=== PATIENT | male | born 1945 | race Caucasian/White ===

== ENCOUNTER → 2020-06-12 11:27 | Outpatient (BNVA) | payer MEDICARE, MEDICAID, SELFPAY | PROVIDERS: PCP Internal Medicine; Visit Provider Internal Medicine | DX: I48.20 Chronic atrial fibrillation, unspecified (principal); Z51.81 Encounter for therapeutic drug level monitoring; Z79.01 Long term (current) use of anticoagulants | CPT/HCPCS: 85610; 99211 ==

== ENCOUNTER 2020-06-16 11:56 | Outpatient (REF) | payer MEDICARE, MEDICAID, SELFPAY ==
[2020-06-16 12:17] LABS: Glucose Urine UA NEG (NEG); Leukocyte Esterase Urine NEG (NEG); Nitrite Urine NEG (NEG); PH 5.5 (5.0-8.0); Specific Gravity - Urine 1.025 (1.005-1.025); Urine Blood NEG (NEG); Urine Ketones NEG (NEG); Urine Protein NEG (NEG-TRACE)
[2020-06-16 12:29] LABS: Appearance Urine HAZY; Color Urine YELLOW
== END 2020-06-16 11:57 | disposition home or self-care (01) ==
LOC: HO.LNP 11:56
PROVIDERS: Visit Provider Internal Medicine
DX: Z79.01 Long term (current) use of anticoagulants (principal)
CPT/HCPCS: 81003; 87086

== ENCOUNTER → 2020-07-10 11:17 | Outpatient (BNVA) | payer MEDICARE, MEDICAID, SELFPAY | PROVIDERS: PCP Internal Medicine; Visit Provider Internal Medicine | DX: I48.20 Chronic atrial fibrillation, unspecified (principal); Z51.81 Encounter for therapeutic drug level monitoring; Z79.01 Long term (current) use of anticoagulants | CPT/HCPCS: 85610; 99211 ==

== ENCOUNTER → 2020-08-20 08:22 | Outpatient (BNVA) | payer MEDICARE, MEDICAID, SELFPAY | PROVIDERS: PCP Internal Medicine; Visit Provider Internal Medicine | DX: I48.20 Chronic atrial fibrillation, unspecified (principal); Z51.81 Encounter for therapeutic drug level monitoring; Z79.01 Long term (current) use of anticoagulants | CPT/HCPCS: 85610; 99211 ==

== ENCOUNTER 2020-08-20 08:45 | Outpatient (REF) | payer MEDICARE, MEDICAID, SELFPAY ==
[2020-08-20 09:50] LABS: Blood Urea Nitrogen 31 mg/dL (9-16); Estimated Glomerular Filt Rate 53
== END 2020-08-20 08:46 | disposition home or self-care (01) ==
LOC: HO.LAB 08:45
PROVIDERS: Visit Provider Internal Medicine
DX: R79.9 Abnormal finding of blood chemistry, unspecified (principal)
CPT/HCPCS: 82565; 84520

== ENCOUNTER 2020-09-17 08:25 | Outpatient (REF) | payer MEDICARE, MEDICAID, SELFPAY ==
[2020-09-17 09:45] LABS: Blood Urea Nitrogen 29 mg/dL (9-16)
== END 2020-09-17 08:26 | disposition home or self-care (01) ==
LOC: HO.LAB 08:25
PROVIDERS: PCP Internal Medicine; Referring Provider Internal Medicine; Visit Provider Internal Medicine
DX: R79.89 Other specified abnormal findings of blood chemistry (principal); I48.20 Chronic atrial fibrillation, unspecified; Z51.81 Encounter for therapeutic drug level monitoring; Z79.01 Long term (current) use of anticoagulants
CPT/HCPCS: 36415; 84520; 85610; 99211

== ENCOUNTER → 2020-10-17 08:20 | Outpatient (BNVA) | payer MEDICARE, MEDICAID, SELFPAY | PROVIDERS: PCP Internal Medicine; Visit Provider Internal Medicine | DX: I48.20 Chronic atrial fibrillation, unspecified (principal); Z51.81 Encounter for therapeutic drug level monitoring; Z79.01 Long term (current) use of anticoagulants | CPT/HCPCS: 85610; 99211 ==

== ENCOUNTER → 2020-10-23 08:43 | Outpatient (BNVA) | payer MEDICARE, MEDICAID, SELFPAY | PROVIDERS: PCP Internal Medicine; Visit Provider Internal Medicine | DX: I48.20 Chronic atrial fibrillation, unspecified (principal); Z51.81 Encounter for therapeutic drug level monitoring; Z79.01 Long term (current) use of anticoagulants | CPT/HCPCS: 85610; 99211 ==

== ENCOUNTER → 2020-11-14 08:28 | Outpatient (BNVA) | payer MEDICARE, MEDICAID, SELFPAY | PROVIDERS: PCP Internal Medicine; Visit Provider Internal Medicine | DX: I48.20 Chronic atrial fibrillation, unspecified (principal); Z51.81 Encounter for therapeutic drug level monitoring; Z79.01 Long term (current) use of anticoagulants | CPT/HCPCS: 85610; 99211 ==

== ENCOUNTER → 2020-12-05 08:32 | Outpatient (BNVA) | payer MEDICARE, MEDICAID, SELFPAY | PROVIDERS: PCP Internal Medicine; Visit Provider Internal Medicine | DX: I48.20 Chronic atrial fibrillation, unspecified (principal); Z79.01 Long term (current) use of anticoagulants; Z51.81 Encounter for therapeutic drug level monitoring | CPT/HCPCS: 85610; 99211 ==

== ENCOUNTER → 2020-12-11 08:32 | Outpatient (BNVA) | payer MEDICARE, MEDICAID, SELFPAY | PROVIDERS: PCP Internal Medicine; Visit Provider Internal Medicine | DX: I48.20 Chronic atrial fibrillation, unspecified (principal); Z79.01 Long term (current) use of anticoagulants; Z51.81 Encounter for therapeutic drug level monitoring | CPT/HCPCS: 85610; 99211 ==

== ENCOUNTER → 2020-12-16 09:20 | Outpatient (BNVA) | payer MEDICARE, MEDICAID, SELFPAY | PROVIDERS: PCP Internal Medicine; Visit Provider Internal Medicine | DX: I48.20 Chronic atrial fibrillation, unspecified (principal); Z51.81 Encounter for therapeutic drug level monitoring; Z79.01 Long term (current) use of anticoagulants | CPT/HCPCS: 85610; 99211 ==

== ENCOUNTER → 2020-12-22 09:36 | Outpatient (BNVA) | payer MEDICARE, MEDICAID, SELFPAY | PROVIDERS: PCP Internal Medicine; Visit Provider Internal Medicine | DX: I48.20 Chronic atrial fibrillation, unspecified (principal); Z51.81 Encounter for therapeutic drug level monitoring; Z79.01 Long term (current) use of anticoagulants | CPT/HCPCS: 85610; 99211 ==

== ENCOUNTER → 2021-01-01 08:12 | Outpatient (BNVA) | payer MEDICARE, MEDICAID, SELFPAY | PROVIDERS: PCP Internal Medicine; Visit Provider Internal Medicine | DX: I48.20 Chronic atrial fibrillation, unspecified (principal); Z51.81 Encounter for therapeutic drug level monitoring; Z79.01 Long term (current) use of anticoagulants | CPT/HCPCS: 85610; 99211 ==

== ENCOUNTER 2021-01-01 10:20 | Outpatient (REF) | payer MEDICARE, MEDICAID, SELFPAY ==
[2021-01-01 11:11] LABS: Blood Urea Nitrogen 30 mg/dL (9-16)
== END 2021-01-01 10:21 | disposition home or self-care (01) ==
LOC: HO.LNP 10:20
PROVIDERS: Visit Provider Internal Medicine
DX: R79.89 Other specified abnormal findings of blood chemistry (principal)
CPT/HCPCS: 84520

== ENCOUNTER → 2021-01-15 08:41 | Outpatient (BNVA) | payer MEDICARE, MEDICAID, SELFPAY | PROVIDERS: PCP Internal Medicine; Visit Provider Internal Medicine | DX: I48.20 Chronic atrial fibrillation, unspecified (principal); Z51.81 Encounter for therapeutic drug level monitoring; Z79.01 Long term (current) use of anticoagulants | CPT/HCPCS: 85610; 99211 ==

== ENCOUNTER → 2021-01-29 08:24 | Outpatient (BNVA) | payer MEDICARE, MEDICAID, SELFPAY | PROVIDERS: PCP Internal Medicine; Visit Provider Internal Medicine | DX: I48.20 Chronic atrial fibrillation, unspecified (principal); Z51.81 Encounter for therapeutic drug level monitoring; Z79.01 Long term (current) use of anticoagulants | CPT/HCPCS: 85610; 99211 ==

== ENCOUNTER 2021-01-29 10:45 | Outpatient (REF) | payer MEDICARE, MEDICAID, SELFPAY ==
[2021-01-29 11:30] LABS: Estimated Average Glucose 131 mg/dL; Hemoglobin A1c % 6.2 %
[2021-01-29 12:07] LABS: Alanine Aminotransferase 29 U/L (0-40); Albumin Level 4.1 g/dL (3.5-5.0); Alkaline Phosphatase 96 U/L (39-117); Aspartate Amino Transferase 19 U/L (5-37); Bilirubin Direct 0.3 mg/dL (0.0-0.5); Bilirubin Total 0.6 mg/dL (0.0-1.0); Cholesterol 112 mg/dL; Glucose Fasting 114 mg/dL (60-99); HDL Cholesterol 30 mg/dL; LDL Cholesterol Calculated 50 mg/dl; Total Protein 6.7 g/dL (6.5-8.0); Triglycerides 164 mg/dL
[2021-01-29 12:25] LABS: Reflex LDLD? No
[2021-01-29 16:50] LABS: PSA,Total (Free>4and<10) 0.05 ng/mL (0.00-4.00)
== END 2021-01-29 10:46 | disposition home or self-care (01) ==
LOC: HO.LNP 10:45
PROVIDERS: Visit Provider Internal Medicine
DX: R73.03 Prediabetes (principal); E78.00 Pure hypercholesterolemia, unspecified; C61 Malignant neoplasm of prostate; Z12.5 Encounter for screening for malignant neoplasm of prostate
CPT/HCPCS: 80061; 80076; 82947; 83036; 84153

== ENCOUNTER → 2021-02-17 08:33 | Outpatient (BNVA) | payer MEDICARE, MEDICAID, SELFPAY | PROVIDERS: PCP Internal Medicine; Visit Provider Internal Medicine | DX: I48.20 Chronic atrial fibrillation, unspecified (principal); Z51.81 Encounter for therapeutic drug level monitoring; Z79.01 Long term (current) use of anticoagulants | CPT/HCPCS: 85610; 99211 ==

== ENCOUNTER 2021-02-27 15:20 | Outpatient (REF) | payer MEDICARE, MEDICAID, SELFPAY ==
[2021-02-27 15:24] LABS: MANUAL DIFF FLAG NO
[2021-02-27 15:27] LABS: Basophils Percent Auto 0.6 % (0-2); Eosinophils Absolute Auto 0.1 X10*3/uL (0.0-0.4); Eosinophils Percent Auto 1.8 % (0-4); Hematocrit 37.7 % (42-52); Hemoglobin 12.6 g/dl (14.0-18.0); Imm Gran Abs Auto 0.03 X10*3/uL (0.00-0.03); Imm Gran Pct Auto 0.5 % (0.0-0.4); Lymphocytes Absolute Auto 1.7 X10*3/uL (1.2-4.9); Lymphocytes Percent Auto 26.5 % (20-40); Mean Corpuscular HGB Conc 33.4 g/dl (31.0-36.0); Mean Corpuscular Hemoglobin 30.5 pg (27.0-33.0); Mean Corpuscular Volume 91.3 fL (80-98); Mean Platelet Volume 11.1 fL (9.4-12.4); Monocytes Absolute Auto 0.5 X10*3/uL (0.1-1.2); Monocytes Percent Auto 7.5 % (2-11); Neutrophils Percent Auto 63.1 % (45-73); Platelet Count 136 X10*3/uL (160-400); Red Blood Count 4.13 X10*6/uL (4.60-5.80); Red Cell Distribution Width 13.5 % (11.0-16.0); White Blood Count 6.3 X10*3/uL (4.8-10.8)
[2021-02-27 16:03] LABS: Alanine Aminotransferase 29 U/L (0-40); Alkaline Phosphatase 104 U/L (39-117); Anion Gap 14 (12-20); Aspartate Amino Transferase 20 U/L (5-37); Bilirubin Total 0.5 mg/dL (0.0-1.0); Blood Urea Nitrogen 24 mg/dL (9-16); Calcium 9.1 mg/dL (8.4-10.2); Carbon Dioxide 23 mmol/L (22-29); Chloride 106 mmol/L (96-108); Estimated Glomerular Filt Rate 53; Glucose Fasting 127 mg/dL (60-99); Potassium 4.1 mmol/L (3.3-5.1); Sodium 139 mmol/L (135-145); Total Protein 6.7 g/dL (6.5-8.0)
== END 2021-02-27 15:21 | disposition home or self-care (01) ==
LOC: HO.LNP 15:20
PROVIDERS: Visit Provider Internal Medicine
DX: K57.33 Diverticulitis of large intestine without perforation or abscess with bleeding (principal)
CPT/HCPCS: 80053; 85025

== ENCOUNTER 2021-03-12 08:20 | Outpatient (REF) | payer MEDICARE, MEDICAID, SELFPAY ==
--- NOTE | ~2021-03-12 | US_ITS ---
EXAMINATION: US ABDOMEN COMPLETE CLINICAL INFORMATION: Gallstones. COMPARISON: Renal ultrasound 08/17/2018. CT abdomen and pelvis 12/12/2017. Ultrasound abdomen 06/25/2013. TECHNIQUE: Real-time imaging of the abdominal viscera. FINDINGS: PANCREAS: Visualized pancreatic head unremarkable. Pancreatic tail obscured by interposed bowel gas. ABDOMINAL AORTA: The proximal and mid aorta normal caliber. Distal aorta obscured by interposed bowel gas. INFERIOR VENA CAVA: Visualized portions are normal. LIVER: The liver is normal in size. The liver contour is normal. There is a thinly septate cyst measuring 9 mm within the lateral segment. There is no intrahepatic biliary duct dilatation seen. GALLBLADDER: There is a 3 mm polyp within the gallbladder. No gallbladder wall thickening or pericholecystic fluid. COMMON BILE DUCT: Normal in caliber measuring 0.3 cm in diameter. RIGHT KIDNEY: There are 2 simple cyst within the right kidney measuring 1.4 cm and 0.9 cm, both simple in appearance. . These require no further follow-up. No hydronephrosis or renal calculi. The kidney measures 11.9 cm in maximum dimension. LEFT KIDNEY: Normal. No hydronephrosis. No renal calculi or focal parenchymal lesions. The kidney measures 11.9 cm in maximum dimension. SPLEEN: Normal. The spleen measures 10.3 cm in maximum dimension. FREE FLUID: None. US/US abdomen complete IMPRESSION: * No cholelithiasis. 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 As a precaution, recommend follow-up ultrasound in one year.
== END 2021-03-12 08:21 | disposition home or self-care (01) ==
LOC: HO.US 08:20
PROVIDERS: Visit Provider Internal Medicine
DX: K80.20 Calculus of gallbladder without cholecystitis without obstruction (principal)
CPT/HCPCS: 76700

== ENCOUNTER → 2021-03-17 08:29 | Outpatient (BNVA) | payer MEDICARE, MEDICAID, SELFPAY | PROVIDERS: PCP Internal Medicine; Visit Provider Internal Medicine | DX: I48.20 Chronic atrial fibrillation, unspecified (principal); Z51.81 Encounter for therapeutic drug level monitoring; Z79.01 Long term (current) use of anticoagulants | CPT/HCPCS: 85610; 99211 ==

== ENCOUNTER → 2021-04-14 08:50 | Outpatient (BNVA) | payer MEDICARE, MEDICAID, SELFPAY | PROVIDERS: PCP Internal Medicine; Visit Provider Internal Medicine | DX: I48.20 Chronic atrial fibrillation, unspecified (principal); Z51.81 Encounter for therapeutic drug level monitoring; Z79.01 Long term (current) use of anticoagulants | CPT/HCPCS: 85610; 99212 ==

== ENCOUNTER 2021-04-14 09:25 | Emergency (ER) | payer MEDICARE, MEDICAID, SELFPAY ==
--- NOTE | ~2021-04-14 | XR_ITS ---
EXAMINATION: XR CHEST CLINICAL INFORMATION: Weakness. COMPARISON: None TECHNIQUE: Frontal view of the chest was obtained. FINDINGS: The lungs are well-expanded and clear of acute process. The heart size and pulmonary vascularity is normal. There is moderate spondylosis dorsal spine. No lytic process. XR/XR chest 1V IMPRESSION: No acute cardiopulmonary process seen.
--- NOTE | ~2021-04-14 | CT_ITS ---
EXAMINATION: CT ABDOMEN AND PELVIS WITHOUT CONTRAST CLINICAL INFORMATION: Anorexia, nausea and weakness. COMPARISON: None TECHNIQUE: Multidetector volumetric imaging was performed from the superior aspect of the liver through the pubic symphysis. Sagittal and coronal reformatted images were obtained on the technologist's workstation. This CT examination was performed using dose optimization techniques as appropriate, variously including the following: *Automated exposure control *Adjustment of mA and/or kV according to patient size (this includes techniques or standardized protocols for targeted exams where dose is matched to indication/reason for exam; i.e. extremities or head) *Use of iterative reconstruction technique DLP: 740 mGy-cm FINDINGS: LUNG BASES: There is dependent atelectatic changes left lung base. The heart size is normal. LIVER, GALLBLADDER, AND BILIARY TREE: The liver is normal in size, shape, and attenuation. No focal hepatic lesion or biliary ductal dilatation is present. The gallbladder is unremarkable with no evidence of radiopaque gallstones, gallbladder wall thickening, or obvious pericholecystic inflammatory changes. PANCREAS: Unremarkable. SPLEEN: The spleen is unremarkable. There is a small 1.1 cm Accessory splenule anterior to the inferior tip of spleen. ADRENAL GLANDS: Unremarkable. KIDNEYS AND URETERS: The kidneys are normal in size, shape, and attenuation. No hydronephrosis, hydroureter, or calculi seen. There is a 1.3 cm exophytic lesion mid pole right kidney. Mild bilateral perinephric stranding is noted. BLADDER: Unremarkable. GASTROINTESTINAL TRACT: There is diffuse colonic diverticulosis without diverticulitis. Otherwise visualized colon and the small bowel loops are unremarkable. ABDOMINAL WALL: There is a small right inguinal hernia containing fat. LYMPH NODES: Normal. VASCULAR: The abdominal aorta is of normal caliber. PELVIC VISCERA: The prostate gland is normal size with prostatic seeds or lata in place with beam hardening artifact. No free fluid. OSSEOUS STRUCTURES: Mild ventral spondylosis dorsal spine. CT/CT abdomen pelvis wo con IMPRESSION: Colonic diverticulosis without diverticulitis. Mild constipation. Exophytic 1.3 cm lesion mid to lower pole right kidney. The kidneys are otherwise unremarkable.
[2021-04-14 09:34] VITALS: BP 141/83; PULSE 81; RESP 18; TEMP 36.6; O2SAT 95; BMI 31.6
--- NOTE | 2021-04-14 09:52 | ED.WEAKNESS ---
HPI - Weakness General Chief complaint: General Medical Stated complaint: Multiple Complanits Time Seen by Provider: 04/14/21 09:50 Source: patient and EMS Mode of arrival: EMS Limitations: no limitations History of Present Illness HPI Narrative: nausea and vomiting x 2 weeks has not been seen by a doctor reports weakness Complaint: generalized weakness and lack of energy Onset (ago): week(s) (2) Duration: constant Location: generalized Migration: none Severity: severe Quality: aching Relieving factors: none Exacerbating factors: none Associated symptoms: loss of appetite, nausea/vomiting and myalgias Related Data Home Medications Medication Instructions Recorded Confirmed carvedilol phosphate 40 mg 40 mg PO DAILY 11/14/20 04/14/21 capsule,[id number] multiphase eplerenone 25 mg tablet 25 mg PO DAILY 11/14/20 04/14/21 lorazepam 0.5 mg tablet 0.5 mg PO BID 11/14/20 04/14/21 omeprazole 20 mg capsule,delayed 20 mg PO DAILY 11/14/20 04/14/21 release simvastatin 40 mg tablet 20 mg PO DAILY 11/14/20 04/14/21 calcium carbonate 500 mg (1,250 1 tab PO DAILY 04/14/21 04/14/21 mg)-vitamin D3 125 unit tablet coenzyme Q10 100 mg capsule 100 mg PO DAILY 04/14/21 04/14/21 (CoQ-10) magnesium 1 tab PO DAILY 04/14/21 04/14/21 warfarin 5 mg tablet 5 mg PO WE 04/14/21 04/14/21 warfarin 7.5 mg tablet 7.5 mg PO SUMOTUTHFRSA 04/14/21 04/14/21 Previous Rx's Medication Instructions Recorded ondansetron 4 mg disintegrating 4 mg PO Q8H PRN #20 tab 04/14/21 tablet Allergies Allergy/AdvReac Type Severity Reaction Status Date / Time Iodinated Contrast Media Allergy Severe SEIZURE Verified 03/17/21 08:30 [CONTRAST, IV] adenosine Allergy Unknown UNKNOWN Verified 03/17/21 08:30 IVP dye Allergy Unknown seizure Verified 03/17/21 08:30 erythromycin base AdvReac Unknown Gut pain Verified 03/17/21 08:30 [From Ilosone] and ADB Pain Adedison Allergy Unknown Elevated BP Uncoded 06/05/18 00:00 adenisen Allergy Unknown stroke Uncoded 06/05/18 00:00 carvedilor Allergy Unknown disorientat Uncoded 06/05/18 00:00 ion Erythromyacin Allergy Unknown abd pain Uncoded 06/05/18 00:00 Erythromycin Allergy Unknown UNKNOWN Uncoded 07/10/20 11:21 Erythromyicin Allergy Unknown GI Upset Uncoded 06/05/18 00:00 gadolinium Allergy Unknown red eues Uncoded 06/05/18 00:00 Ilisone Allergy Unknown GI Upset Uncoded 06/05/18 00:00 illosone Allergy Unknown abd pain Uncoded 06/05/18 00:00 Ilosone Allergy Unknown UNKNOWN Uncoded 07/10/20 11:21 IVPDye Allergy Unknown Convulsion Uncoded 06/05/18 00:00 Review of Systems Review of Systems: Constitutional : No Weight loss, No Fever, No Chills ENT/Mouth : No sore throat, No Rhinorrhea Eyes: No Swelling, No Redness Cardiovascular : No Chest Pain, No SOB, NoEdema Respiratory : No Cough, No Sputum, No Wheezing Gastrointestinal : Positive Nausea, Positive Vomiting, no Diarrhea, no abdominal Pain, No Hematochezia, No Melena Genitourinary : No Dysuria, No Urinary Frequency, No Hematuria, No Urgency Musculoskeletal : No joint pain, No Myalgias, No Joint Swelling Skin : No Skin Lesions, No rash Neuro : pos Weakness, No Numbness, No Dizziness, No Headache Psych : No Anxiety/Panic, No Depression Heme/Lymph: No Bruising, No Lymphadenopathy Endocrine : No Polyuria, No Polydipsia All other systems reviewed and are negative. [facility] Past Medical History Attestation statement: The following information was validated with the patient. Medical History (Updated 04/14/21 @ 12:58 by Little Fraga DO) A-fib Anxiety CHF (congestive heart failure) CVA (cerebral vascular accident) Myocardial infarct, old Surgical History (Updated 04/14/21 @ 10:05 by Little Fraga DO) History of appendectomy Social History Social History (Updated 04/14/21 @ 10:05 by Little Fraga DO) Patient Tobacco Use Status: Never used Tobacco Advance Directives: No Advance Directives Information Provided: No Physical Exam Vital Signs: Vital Signs: Last Vital Signs Temp 97.9 F 04/14/21 09:34 Pulse 81 04/14/21 09:34 Resp 18 04/14/21 09:34 BP 141/83 H 04/14/21 09:34 Pulse Ox 95 04/14/21 09:34 Body Mass Index 31.6 Appearance: Alert. Oriented X3. No acute distress. Eyes: Pupils equal, round and reactive to light. ENT: Pharynx normal. Neck: Normal inspection. Neck supple. CVS: Normal heart rate and rhythm. Pulses normal. Respiratory: No respiratory distress. Breath sounds normal. Abdomen: Soft and distended no rebound or guarding, denies pain Skin: Skin warm and dry. Normal skin color. Normal skin turgor. Extremities: No lower extremity edema. No calf ttp Neuro: Oriented X 3. No motor deficit. No sensory deficit. Course Course Course Narrative: labs, CXR negative no hypoxia, pending CT scan if negative he is COVID positive but no toxic - possible rehab vs going home. tolerated PO feels much better wants to go home MDM - Weakness MDM Narrative Medical decision making narrative: 76 yo male with hx of HTN, GERD, CVA, afib on coumadin prior appendectomy at this time will need labs, IVF, zofran, CT scan for mass/obstruction, dispo per results and findings. Lab Data Result diagrams: 04/14/21 10:13 04/14/21 10:13 Labs: Lab Results 04/14/21 04/14/21 04/14/21 Range/Units 10:13 10:13 10:13 WBC 4.9 (4.8-10.8) X10*3/uL RBC 4.72 (4.60-5.80) X10*6/uL Hgb 14.2 (14.0-18.0) g/dl Hct 41.3 L (42-52) % MCV 87.5 (80-98) fL MCH 30.1 (27.0-33.0) pg MCHC 34.4 (31.0-36.0) g/dl RDW 13.5 (11.0-16.0) % Plt Count 115 L (160-400) X10*3/uL MPV 10.4 (9.4-12.4) fL Immature Gran % (Auto) 1.0 H (0.0-0.4) % Neut % (Auto) 60.8 (45-73) % Lymph % (Auto) 27.9 (20-40) % [place] % (Auto) 9.9 (2-11) % Eos % (Auto) 0.2 (0-4) % Baso % (Auto) 0.2 (0-2) % Lymph # (Auto) 1.4 (1.2-4.9) X10*3/uL [place] # (Auto) 0.5 (0.1-1.2) X10*3/uL Eos # (Auto) 0.0 (0.0-0.4) X10*3/uL Baso # (Auto) 0.0 (0.0-0.2) X10*3/uL Abs Immat Gran (auto) 0.05 H (0.00-0.03) X10*3/uL Absolute Neuts (auto) 3.0 (2.0-8.3) X10*3/uL Absolute Nucleated RBC 0.000 (0.0-0.012) X10*3/uL Nucleated RBC % (auto) 0.0 (0.0-0.2) /100WBC PT (9.9-13.0) SEC INR (0.9-1.1) Sodium 134 L (135-145) mmol/L Potassium 4.1 (3.3-5.1) mmol/L Chloride 99 (96-108) mmol/L Carbon Dioxide 23 (22-29) mmol/L Anion Gap 16 (12-20) BUN 13 (9-16) mg/dL Creatinine 1.17 (0.5-1.4) mg/dL Estim Creat Clear Calc 62.6 Estimated GFR > 60 Random Glucose 119 H (60-115) mg/dL Lactic Acid (0.5-2.0) mmol/L Calcium 8.5 D (8.4-10.2) mg/dL Magnesium (1.6-2.6) mg/dL Total Bilirubin (0.0-1.0) mg/dL Direct Bilirubin (0.0-0.5) mg/dL AST (5-37) U/L ALT (0-40) U/L Alkaline Phosphatase (39-117) U/L Total Creatine Kinase 106 (38-174) U/L Troponin I High Sens (<3.5-35.0) ng/L B-Natriuretic Peptide 100 (<100) pg/mL Total Protein (6.5-8.0) g/dL Albumin (3.5-5.0) g/dL Lipase (8-78) U/L TSH (0.32-4.0) uIU/mL COVID-19 (SNOW) (Negative) COVID-19 Clin Com 04/14/21 04/14/21 04/14/21 Range/Units 10:13 10:13 10:13 WBC (4.8-10.8) X10*3/uL RBC (4.60-5.80) X10*6/uL Hgb (14.0-18.0) g/dl Hct (42-52) % MCV (80-98) fL MCH (27.0-33.0) pg MCHC (31.0-36.0) g/dl RDW (11.0-16.0) % Plt Count (160-400) X10*3/uL MPV (9.4-12.4) fL Immature Gran % (Auto) (0.0-0.4) % Neut % (Auto) (45-73) % Lymph % (Auto) (20-40) % [place] % (Auto) (2-11) % Eos % (Auto) (0-4) % Baso % (Auto) (0-2) % Lymph # (Auto) (1.2-4.9) X10*3/uL [place] # (Auto) (0.1-1.2) X10*3/uL Eos # (Auto) (0.0-0.4) X10*3/uL Baso # (Auto) (0.0-0.2) X10*3/uL Abs Immat Gran (auto) (0.00-0.03) X10*3/uL Absolute Neuts (auto) (2.0-8.3) X10*3/uL Absolute Nucleated RBC (0.0-0.012) X10*3/uL Nucleated RBC % (auto) (0.0-0.2) /100WBC PT 37.3 H (9.9-13.0) SEC INR 3.2 H (0.9-1.1) Sodium (135-145) mmol/L Potassium (3.3-5.1) mmol/L Chloride (96-108) mmol/L Carbon Dioxide (22-29) mmol/L Anion Gap (12-20) BUN (9-16) mg/dL Creatinine (0.5-1.4) mg/dL Estim Creat Clear Calc Estimated GFR Random Glucose (60-115) mg/dL Lactic Acid 1.1 (0.5-2.0) mmol/L Calcium (8.4-10.2) mg/dL Magnesium 1.6 (1.6-2.6) mg/dL Total Bilirubin 0.7 (0.0-1.0) mg/dL Direct Bilirubin 0.3 (0.0-0.5) mg/dL AST 28 (5-37) U/L ALT 29 (0-40) U/L Alkaline Phosphatase 68 D (39-117) U/L Total Creatine Kinase (38-174) U/L Troponin I High Sens (<3.5-35.0) ng/L B-Natriuretic Peptide (<100) pg/mL Total Protein 6.1 L (6.5-8.0) g/dL Albumin 3.6 (3.5-5.0) g/dL Lipase 46 (8-78) U/L TSH 0.40 (0.32-4.0) uIU/mL COVID-19 (SNWO) (Negative) COVID-19 Clin Com 04/14/21 04/14/21 Range/Units 10:13 11:02 WBC (4.8-10.8) X10*3/uL RBC (4.60-5.80) X10*6/uL Hgb (14.0-18.0) g/dl Hct (42-52) % MCV (80-98) fL MCH (27.0-33.0) pg MCHC (31.0-36.0) g/dl RDW (11.0-16.0) % Plt Count (160-400) X10*3/uL MPV (9.4-12.4) fL Immature Gran % (Auto) (0.0-0.4) % Neut % (Auto) (45-73) % Lymph % (Auto) (20-40) % [place] % (Auto) (2-11) % Eos % (Auto) (0-4) % Baso % (Auto) (0-2) % Lymph # (Auto) (1.2-4.9) X10*3/uL [place] # (Auto) (0.1-1.2) X10*3/uL Eos # (Auto) (0.0-0.4) X10*3/uL Baso # (Auto) (0.0-0.2) X10*3/uL Abs Immat Gran (auto) (0.00-0.03) X10*3/uL Absolute Neuts (auto) (2.0-8.3) X10*3/uL Absolute Nucleated RBC (0.0-0.012) X10*3/uL Nucleated RBC % (auto) (0.0-0.2) /100WBC PT (9.9-13.0) SEC INR (0.9-1.1) Sodium (135-145) mmol/L Potassium (3.3-5.1) mmol/L Chloride (96-108) mmol/L Carbon Dioxide (22-29) mmol/L Anion Gap (12-20) BUN (9-16) mg/dL Creatinine (0.5-1.4) mg/dL Estim Creat Clear Calc Estimated GFR Random Glucose (60-115) mg/dL Lactic Acid (0.5-2.0) mmol/L Calcium (8.4-10.2) mg/dL Magnesium (1.6-2.6) mg/dL Total Bilirubin (0.0-1.0) mg/dL Direct Bilirubin (0.0-0.5) mg/dL AST (5-37) U/L ALT (0-40) U/L Alkaline Phosphatase (39-117) U/L Total Creatine Kinase (38-174) U/L Troponin I High Sens 15.4 (<3.5-35.0) ng/L B-Natriuretic Peptide (<100) pg/mL Total Protein (6.5-8.0) g/dL Albumin (3.5-5.0) g/dL Lipase (8-78) U/L TSH (0.32-4.0) uIU/mL COVID-19 (SNOW) Positive A (Negative) COVID-19 Clin Com See Note ECG Data Attestation: I personally reviewed and interpreted this ECG as follows: ECG interpretation date: 04/14/21 ECG interpretation time: 10:11 Interpretation: Rate: 85 Rhythm: NSR 1st degree AVB with PVCs [place]: left Normal P waves. Normal JENN. Normal QRS complex. ST T wave : normal no PRACHI qTC: normal prior studies: no acute ischemia The study has been interpreted contemporaneously by me. . Discharge Plan Discharge Clinical Impression: COVID-19 Nausea & vomiting Qualifiers: Vomiting type: unspecified Vomiting Intractability: non-intractable Qualified Code(s): R11.2 - Nausea with vomiting, unspecified Patient Disposition: Home, Self-Care Instructions: Acute Nausea and Vomiting (ED), COVID-19 (Coronavirus Disease 2019) (ED) Additional Instructions: return to ED for any worsening symptoms or concerns Prescriptions: New ondansetron 4 mg tablet,disintegrating 4 mg PO Q8H PRN (Reason: nausea and vomiting) Qty: 20 RF: 0 No Action warfarin 7.5 mg Tablet 7.5 mg PO SUMOTUTHFRSA RF: 0 warfarin 5 mg Tablet 5 mg PO WE RF: 0 coenzyme Q10 [CoQ-10] 100 mg Capsule 100 mg PO DAILY RF: 0 magnesium Tablet 1 tab PO DAILY RF: 0 calcium carbonate-vitamin D3 [Calcium 500 + D (D3)] 500 mg(1,250mg) -125 unit Tablet 1 tab PO DAILY RF: 0 lorazepam 0.5 mg tablet 0.5 mg PO BID RF: 0 omeprazole 20 mg capsule,delayed release(DR/EC) 20 mg PO DAILY RF: 0 eplerenone 25 mg tablet 25 mg PO DAILY RF: 0 carvedilol phosphate 40 mg capsule, ER multiphase 24 hr 40 mg PO DAILY RF: 0 simvastatin 40 mg tablet 20 mg PO DAILY RF: 0
--- NOTE | 2021-04-14 09:53 | ECG_ITS ---
Test Reason : N/V Blood Pressure : / mmHG Vent. Rate : 085 BPM Atrial Rate : 085 BPM P-R Int : 220 ms QRS Dur : 096 ms QT Int : 380 ms P-R-T Axes : 068 -36 011 degrees QTc Int : 452 ms Sinus rhythm with 1st degree A-V block with occasional Premature ventricular complexes Left axis deviation Abnormal ECG When compared with ECG of 26-NOV-2016 07:17, No significant change was found Referred By: Little Fraga Electronically Signed By:RENATO NICHOLAS
[2021-04-14 10:21] LABS: MANUAL DIFF FLAG NO
[2021-04-14 10:25] LABS: Basophils Percent Auto 0.2 % (0-2); Eosinophils Percent Auto 0.2 % (0-4); Hematocrit 41.3 % (42-52); Hemoglobin 14.2 g/dl (14.0-18.0); Imm Gran Abs Auto 0.05 X10*3/uL (0.00-0.03); Lymphocytes Absolute Auto 1.4 X10*3/uL (1.2-4.9); Lymphocytes Percent Auto 27.9 % (20-40); Mean Corpuscular HGB Conc 34.4 g/dl (31.0-36.0); Mean Corpuscular Hemoglobin 30.1 pg (27.0-33.0); Mean Corpuscular Volume 87.5 fL (80-98); Mean Platelet Volume 10.4 fL (9.4-12.4); Monocytes Absolute Auto 0.5 X10*3/uL (0.1-1.2); Monocytes Percent Auto 9.9 % (2-11); Neutrophils Percent Auto 60.8 % (45-73); Platelet Count 115 X10*3/uL (160-400); Red Blood Count 4.72 X10*6/uL (4.60-5.80); Red Cell Distribution Width 13.5 % (11.0-16.0); White Blood Count 4.9 X10*3/uL (4.8-10.8)
[2021-04-14 10:32] LABS: INTERNATIONAL NORM RATIO 3.2 (0.9-1.1); Prothrombin Time 37.3 SEC (9.9-13.0)
[2021-04-14 10:45] LABS: Lactic Acid 1.1 mmol/L (0.5-2.0)
[2021-04-14 10:50] LABS: Anion Gap 16 (12-20); Blood Urea Nitrogen 13 mg/dL (9-16); Calcium 8.5 mg/dL (8.4-10.2); Carbon Dioxide 23 mmol/L (22-29); Chloride 99 mmol/L (96-108); Creatinine Clr Calc Pharmacy 62.6; Estimated Glomerular Filt Rate > 60; Glucose Random 119 mg/dL (60-115); Potassium 4.1 mmol/L (3.3-5.1); Sodium 134 mmol/L (135-145)
[2021-04-14 10:52] LABS: B Type Natriuretic Peptide 100 pg/mL (<100); Troponin-I High Sensitivity 15.4 ng/L (<3.5-35.0)
--- NOTE | 2021-04-14 10:52 | PHA.MEDREC ---
Pharmacy Consult ? Medication Reconciliation Pharmacy has completed the medication reconciliation. Patient get vit d, calcium and magnesium OTC but does not know the doses of the medication. Tamar Arambula, PharmD
[2021-04-14 10:53] LABS: Alanine Aminotransferase 29 U/L (0-40); Albumin Level 3.6 g/dL (3.5-5.0); Alkaline Phosphatase 68 U/L (39-117); Aspartate Amino Transferase 28 U/L (5-37); Bilirubin Direct 0.3 mg/dL (0.0-0.5); Bilirubin Total 0.7 mg/dL (0.0-1.0); Lipase 46 U/L (8-78); Magnesium 1.6 mg/dL (1.6-2.6); Total Protein 6.1 g/dL (6.5-8.0)
[2021-04-14] MEDS: ondansetron HCL 4 MG/2 ML VIAL IVPUSH (11:05)
[2021-04-14] MEDS: 0.9 % Sodium Chloride 1,000 ML 999 ML IVCONT (11:05)
[2021-04-14 11:23] LABS: COVID-19 Test Positive (Negative)
== END 2021-04-14 13:55 | disposition home or self-care (01) ==
PROVIDERS: Emergency Provider Emergency Medicine; PCP Internal Medicine
DX: U07.1 COVID-19 (principal); R11.2 Nausea with vomiting, unspecified; I48.91 Unspecified atrial fibrillation; Z86.73 Personal history of transient ischemic attack (TIA), and cerebral infarction without residual deficits; Z79.01 Long term (current) use of anticoagulants; Z79.899 Other long term (current) drug therapy
CPT/HCPCS: 36415; 71045; 74176; 80048; 80076; 82550; 83605; 83690; 83735; 83880; 84443; 84484; 85025; 85610; 87040; 87635; 93005; 96361; 96374; 99284; J2405

== ENCOUNTER → 2021-04-28 09:55 | Outpatient (BNVA) | payer MEDICARE, MEDICAID, SELFPAY | PROVIDERS: PCP Internal Medicine; Visit Provider Internal Medicine | DX: I48.20 Chronic atrial fibrillation, unspecified (principal); Z51.81 Encounter for therapeutic drug level monitoring; Z79.01 Long term (current) use of anticoagulants | CPT/HCPCS: 85610; 99211 ==

== ENCOUNTER → 2021-05-12 10:08 | Outpatient (BNVA) | payer MEDICARE, MEDICAID, SELFPAY | PROVIDERS: PCP Internal Medicine; Visit Provider Internal Medicine | DX: I48.20 Chronic atrial fibrillation, unspecified (principal); Z51.81 Encounter for therapeutic drug level monitoring; Z79.01 Long term (current) use of anticoagulants | CPT/HCPCS: 85610; 99211 ==

== ENCOUNTER → 2021-06-09 09:49 | Outpatient (BNVA) | payer MEDICARE, MEDICAID, SELFPAY | PROVIDERS: PCP Internal Medicine; Visit Provider Internal Medicine | DX: I48.20 Chronic atrial fibrillation, unspecified (principal); Z51.81 Encounter for therapeutic drug level monitoring; Z79.01 Long term (current) use of anticoagulants | CPT/HCPCS: 85610; 99211 ==

== ENCOUNTER → 2021-07-07 10:24 | Outpatient (BNVA) | payer MEDICARE, MEDICAID, SELFPAY | PROVIDERS: PCP Internal Medicine; Visit Provider Internal Medicine | DX: I48.20 Chronic atrial fibrillation, unspecified (principal); Z51.81 Encounter for therapeutic drug level monitoring; Z79.01 Long term (current) use of anticoagulants | CPT/HCPCS: 85610; 99211 ==

== ENCOUNTER 2021-08-03 10:08 | Outpatient (REF) | payer MEDICARE, MEDICAID, SELFPAY ==
[2021-08-03 10:12] LABS: MANUAL DIFF FLAG NO
[2021-08-03 10:56] LABS: Basophils Percent Auto 0.4 % (0-2); Eosinophils Absolute Auto 0.1 X10*3/uL (0.0-0.4); Eosinophils Percent Auto 1.2 % (0-4); Hematocrit 44.5 % (42.0-52.0); Hemoglobin 14.6 g/dl (14.0-18.0); Imm Gran Abs Auto 0.03 X10*3/uL (0.00-0.03); Imm Gran Pct Auto 0.4 % (0.0-0.4); Lymphocytes Absolute Auto 2.1 X10*3/uL (1.2-4.9); Lymphocytes Percent Auto 26.4 % (20-40); Mean Corpuscular HGB Conc 32.8 g/dl (31.0-36.0); Mean Corpuscular Hemoglobin 29.5 pg (27.0-33.0); Mean Corpuscular Volume 89.9 fL (80.0-98.0); Monocytes Absolute Auto 0.7 X10*3/uL (0.1-1.2); Monocytes Percent Auto 8.6 % (2-11); Neutrophils Absolute Auto 5.1 x10*3/uL (2.0-8.3); Platelet Count 157 X10*3/uL (160-400); Red Blood Count 4.95 X10*6/uL (4.60-5.80); Red Cell Distribution Width 13.9 % (11.0-16.0)
[2021-08-03 11:04] LABS: Estimated Average Glucose 131 mg/dL; Hemoglobin A1c % 6.2 %
[2021-08-03 11:07] LABS: Alanine Aminotransferase 25 U/L (0-40); Alkaline Phosphatase 83 U/L (39-117); Anion Gap 15 (12-20); Aspartate Amino Transferase 18 U/L (5-37); Bilirubin Total 0.5 mg/dL (0.0-1.0); Blood Urea Nitrogen 22 mg/dL (9-16); Calcium 9.6 mg/dL (8.4-10.2); Carbon Dioxide 26 mmol/L (22-29); Chloride 103 mmol/L (96-108); Cholesterol 121 mg/dL; Estimated Glomerular Filt Rate > 60; Glucose Fasting 127 mg/dL (60-99); HDL Cholesterol 35 mg/dL; LDL Cholesterol Calculated 62 mg/dl; Magnesium 1.6 mg/dL (1.6-2.6); Potassium 4.5 mmol/L (3.3-5.1); Sodium 139 mmol/L (135-145); Total Protein 6.8 g/dL (6.5-8.0); Triglycerides 122 mg/dL
[2021-08-03 11:18] LABS: Reflex LDLD? No
[2021-08-03 11:27] LABS: Vitamin D 25-OH Total 23.8 ng/mL (>30)
[2021-08-03 12:03] LABS: PSA,Total (Free>4and<10) 0.11 ng/mL (0.00-4.00)
== END 2021-08-03 10:09 | disposition home or self-care (01) ==
LOC: HO.LNP 10:08
PROVIDERS: PCP Internal Medicine; Visit Provider Internal Medicine
DX: Z00.00 Encounter for general adult medical examination without abnormal findings (principal); E83.51 Hypocalcemia; R79.9 Abnormal finding of blood chemistry, unspecified; R73.03 Prediabetes; E78.00 Pure hypercholesterolemia, unspecified; D64.9 Anemia, unspecified; R97.20 Elevated prostate specific antigen [PSA]; Z12.5 Encounter for screening for malignant neoplasm of prostate
CPT/HCPCS: 80053; 80061; 82306; 83036; 83735; 84153; 85025

== ENCOUNTER → 2021-08-06 10:21 | Outpatient (BNVA) | payer MEDICARE, MEDICAID, SELFPAY | PROVIDERS: PCP Internal Medicine; Visit Provider Internal Medicine | DX: I48.20 Chronic atrial fibrillation, unspecified (principal); Z51.81 Encounter for therapeutic drug level monitoring; Z79.01 Long term (current) use of anticoagulants | CPT/HCPCS: 85610; 99211 ==

== ENCOUNTER 2021-08-20 08:53 | Outpatient (REF) | payer MEDICARE, MEDICAID, SELFPAY | END 2021-08-20 08:54 | disposition home or self-care (01) | LOC: HO.HOSX 08:53 | PROVIDERS: Visit Provider Orthopaedic Surgery | DX: Z13.89 Encounter for screening for other disorder (principal) ==

== ENCOUNTER → 2021-09-03 08:29 | Outpatient (BNVA) | payer MEDICARE, MEDICAID, SELFPAY | PROVIDERS: PCP Internal Medicine; Visit Provider Internal Medicine | DX: I48.20 Chronic atrial fibrillation, unspecified (principal); Z51.81 Encounter for therapeutic drug level monitoring; Z79.01 Long term (current) use of anticoagulants | CPT/HCPCS: 85610; 99211 ==

== ENCOUNTER → 2021-09-16 09:42 | Outpatient (REF) | payer MEDICARE, MEDICAID, SELFPAY ==
--- NOTE | 2021-09-16 09:45 | CA_ITS ---
Transthoracic Echocardiogram Patient (Last, First, Middle): Russell Tiwari A Gender: Male Date of : 1945 Age: 76 Procedure Date: 09/16/2021 Procedure Type: Transthoracic Echocardiogram Location: OP Height: 180.34 cm Weight: 99.79 kg BSA: 2.20 m2 Heart Rate: bpm BP: 138 / 80 mmHg Jig Builder Helper: PERNELL Saez MD: Michaela Anguiano [employer] Instructor: Azeem Clayton MD Symptoms: I25.10 Study Quality: Fair ECG Rhythm: Undetermined Conclusions: - 1. Technically limited study, patient declined definity contrast 2. Uhes-hm-tliyrcgf LV systolic dysfunction with LVEF of 40-45% with grade 1 diastolic dysfunction with suggestion of underlying wall motion abnormality suggestive coronary artery disease 3. Mild aortic and mitral regurgitation 4. Normal RV systolic pressure 5. No gross pericardial effusion Findings Procedure Information The patient declines contrast. Left Ventricle Normal left ventricular cavity size. There is normal left ventricular wall thickness. The left ventricular systolic function is mild to moderately decreased. The visually estimated ejection fraction is between 40-45%. Regional wall motion abnormalities can not be excluded due to suboptimal endocardial definition. Spectral Doppler is indicative of an impaired relaxation filling pattern. E/E prime ratio is <8, consistent with normal filling pressures. Evidence suggests grade I (mild) diastolic dysfunction. Wall Motion Rest Echo Findings The inferoseptal wall is hypokinetic. The inferolateral wall and basal inferior segment are akinetic. Right Ventricle The right ventricle was not well visualized. Atria The left atrium is likely dilated. There is lipomatous hypertrophy of the interatrial septum. Interatrial shunt cannot be excluded. The right atrium was not well visualized. Aortic Valve There is mild calcification of the aortic valve. There is no aortic valve stenosis. There is mild aortic valve regurgitation. Mitral Valve There is mild anterior and moderate posterior mitral leaflet thickening. There is mild mitral annular calcification. There is mild mitral valve regurgitation. There is no mitral valve stenosis. Pulmonic Valve The pulmonic valve was not well visualized. Tricuspid Valve Likely normal tricuspid valve structure and function. There is mild tricuspid valve regurgitation. The right ventricular systolic pressure is normal. The right ventricular systolic pressure is 20 mmHg. Normal right atrial pressure. There is no evidence of pulmonary hypertension. Great Vessels The pulmonary artery was not well visualized. There is mild dilatation of the ascending aorta measuring 3.80 cm. Venous The inferior vena cava is normal in size and collapses greater than 50% with inspiration. Pericardium/Pleural There is no evidence of pericardial effusion. Prior Study Comparison No prior study available for comparison. Measurements 2D Linear Measurements IVSd: 1.18 0.6-0.9/0.6-1.0 cm LVIDd: 4.91 3.9-5.3/4.2-5.9 cm LVIDd Index: 2.23 2.4-3.2/2.2-3.1 cm/m2 LVIDs: 3.89 2.0-3.6 cm LVPWd: 1.07 0.7-1.1 cm Ao Root: 3.70 2.1-3.5 cm LA Diam: 3.70 2.7-3.8/3.0-4.0 cm LAIDs Index: 1.68 1.5-2.3 cm/m2 LV Mass: 258.64 67-162/88-224 g LV Mass Index: 117.56 43-95/49-115 g/m2 LVOT Diam: 2.00 3.0+(-)1.3 cm 2D Systolic Function EF 4C: 43.20 >55% EF 2C: 46.40 >55% EF BiP: 45.60 >55% Mitral Valve E'Lateral: 11.20 Aortic Valve AoV Pk Kenneth: 1.22 AoV Mn Kenneth: 0.90 AoV VTI: 0.24 AoV Pk Grad: 6.00 Aov Mn Grad: 4.00 STACIE Cont.VTI: 1.96 LVOT LVOT Pk Kenneth: 0.67 LVOT Mn Kenneth: 0.45 LVOT VTI: 0.15 LVOT Pk Grad: 2.00 LVOT Mn Grad: 1.00 LVOT Diam: 2.00 LVOT Area: 3.14 Diastolic Function E' Laterial: 11.20 Right Ventricle TAPSE (mm): 1.98 TVS' Kenneth: 11.90 Tricuspid Valve TR Pk Kenneth: 2.05 TR Pk Grad: 17.00 RA Press: 3.00 RVSP: 20.00 Great Vessels Aorta Ao Root-2D: 3.70 2.0-3.7 cm Ao Asc: 3.80 2.1-3.4 cm Ao Arch: 3.00 Updated in Other Vendor System with Status of Final Azeem Clayton MD electronically signed on 09/17/2021 5:16:32 PM with status of Final
== END ==
LOC: HO.CARD 09:42
PROVIDERS: Visit Provider Nurse Practitioner
DX: I25.10 Atherosclerotic heart disease of native coronary artery without angina pectoris (principal)
CPT/HCPCS: 93306

== ENCOUNTER → 2021-10-01 08:26 | Outpatient (BNVA) | payer MEDICARE, MEDICAID, SELFPAY | PROVIDERS: PCP Internal Medicine; Visit Provider Internal Medicine | DX: I48.20 Chronic atrial fibrillation, unspecified (principal); Z51.81 Encounter for therapeutic drug level monitoring; Z79.01 Long term (current) use of anticoagulants | CPT/HCPCS: 85610; 99211 ==

== ENCOUNTER → 2021-10-30 08:17 | Outpatient (BNVA) | payer MEDICARE, MEDICAID, SELFPAY | PROVIDERS: PCP Internal Medicine; Visit Provider Internal Medicine | DX: I48.20 Chronic atrial fibrillation, unspecified (principal); Z51.81 Encounter for therapeutic drug level monitoring; Z79.01 Long term (current) use of anticoagulants | CPT/HCPCS: 85610; 99211 ==

== ENCOUNTER → 2021-11-20 08:36 | Outpatient (BNVA) | payer MEDICARE, MEDICAID, SELFPAY | PROVIDERS: PCP Internal Medicine; Visit Provider Internal Medicine | DX: I48.20 Chronic atrial fibrillation, unspecified (principal); Z51.81 Encounter for therapeutic drug level monitoring; Z79.01 Long term (current) use of anticoagulants | CPT/HCPCS: 85610; 99211 ==

== ENCOUNTER → 2021-12-18 08:33 | Outpatient (BNVA) | payer MEDICARE, MEDICAID, SELFPAY | PROVIDERS: PCP Internal Medicine; Visit Provider Internal Medicine | DX: I48.20 Chronic atrial fibrillation, unspecified (principal); Z79.01 Long term (current) use of anticoagulants; Z51.81 Encounter for therapeutic drug level monitoring | CPT/HCPCS: 85610; 99211 ==

== ENCOUNTER → 2022-01-12 08:22 | Outpatient (BNVA) | payer MEDICARE, MEDICAID, SELFPAY | PROVIDERS: PCP Internal Medicine; Visit Provider Internal Medicine | DX: I48.20 Chronic atrial fibrillation, unspecified (principal); Z79.01 Long term (current) use of anticoagulants; Z51.81 Encounter for therapeutic drug level monitoring | CPT/HCPCS: 85610; 99211 ==

== ENCOUNTER 2022-02-04 10:17 | Outpatient (REF) | payer MEDICARE, MEDICAID, SELFPAY ==
[2022-02-04 10:43] LABS: Estimated Average Glucose 131 mg/dL; Hemoglobin A1c % 6.2 %
[2022-02-04 10:48] LABS: Alanine Aminotransferase 32 U/L (0-40); Albumin Level 4.1 g/dL (3.5-5.0); Alkaline Phosphatase 89 U/L (39-117); Aspartate Amino Transferase 23 U/L (5-37); Bilirubin Direct 0.4 mg/dL (0.0-0.5); Bilirubin Total 0.8 mg/dL (0.0-1.0); Cholesterol 115 mg/dL; Glucose Fasting 138 mg/dL (60-99); HDL Cholesterol 33 mg/dL; LDL Cholesterol Calculated 66 mg/dl; Total Protein 6.8 g/dL (6.5-8.0); Triglycerides 84 mg/dL
[2022-02-04 11:44] LABS: Reflex LDLD? No
== END 2022-02-04 10:18 | disposition home or self-care (01) ==
LOC: HO.LNP 10:17
PROVIDERS: PCP Internal Medicine; Visit Provider Internal Medicine
DX: R73.09 Other abnormal glucose (principal); E78.00 Pure hypercholesterolemia, unspecified
CPT/HCPCS: 80061; 80076; 82947; 83036

== ENCOUNTER → 2022-02-09 08:59 | Outpatient (BNVA) | payer MEDICARE, MEDICAID, SELFPAY | PROVIDERS: PCP Internal Medicine; Visit Provider Internal Medicine | DX: I48.20 Chronic atrial fibrillation, unspecified (principal); Z79.01 Long term (current) use of anticoagulants; Z51.81 Encounter for therapeutic drug level monitoring | CPT/HCPCS: 85610; 99211 ==

== ENCOUNTER → 2022-03-09 08:04 | Outpatient (BNVA) | payer MEDICARE, MEDICAID, SELFPAY | PROVIDERS: PCP Internal Medicine; Visit Provider Internal Medicine | DX: I48.20 Chronic atrial fibrillation, unspecified (principal); Z51.81 Encounter for therapeutic drug level monitoring; Z79.01 Long term (current) use of anticoagulants | CPT/HCPCS: 85610; 99211 ==

== ENCOUNTER → 2022-04-06 09:10 | Outpatient (BNVA) | payer MEDICARE, MEDICAID, SELFPAY | PROVIDERS: PCP Internal Medicine; Visit Provider Internal Medicine | DX: I48.20 Chronic atrial fibrillation, unspecified (principal); Z79.01 Long term (current) use of anticoagulants; Z51.81 Encounter for therapeutic drug level monitoring | CPT/HCPCS: 85610; 99211 ==

== ENCOUNTER 2022-04-13 07:55 | Outpatient (REF) | payer MEDICARE, MEDICAID, SELFPAY ==
--- NOTE | ~2022-04-13 | US_ITS ---
EXAMINATION: US ABDOMEN COMPLETE CLINICAL INFORMATION: Gallbladder polyp. COMPARISON: CT abdomen and pelvis without contrast 04/14/2021. US abdomen complete 03/12/2021. US retroperitoneal limited (renal only) 08/17/2018. TECHNIQUE: Real-time imaging of the abdominal viscera. Technically limited study secondary to body habitus and pain. FINDINGS: PANCREAS: Normal. ABDOMINAL AORTA: Not well visualized INFERIOR VENA CAVA: Not well visualized LIVER: The liver is normal in size. Liver echotexture is slightly increased. There is an 8 x 10 x 8 mm cyst in the left lobe of the liver with single thin septation. No other focal liver. There is no intrahepatic biliary duct dilatation seen. GALLBLADDER: The gallbladder is normal in size. There is a 3 mm nonmobile nonshadowing echogenic density adjacent to the gallbladder wall does the gallbladder wall polyp. No definite gallstones are seen. COMMON BILE DUCT: Normal in caliber measuring 0.3 cm in diameter. RIGHT KIDNEY: There are 2 cysts in the midpole measuring 1.5 x 1.5 x 2 cm and 1 x 1.2 x 1.1 cm. No hydronephrosis or renal calculi. The kidney measures 12.1 cm in maximum dimension. LEFT KIDNEY: Normal. No hydronephrosis. No renal calculi or focal parenchymal lesions. The kidney measures 12.7 cm in maximum dimension. SPLEEN: Normal. The spleen measures 12.0 cm in maximum dimension. FREE FLUID: None. US/US abdomen complete IMPRESSION: Stable small gallbladder wall polyp. Slightly echogenic liver probably representing fatty infiltration and small stable liver cyst. Right renal cysts. Limited visualization of pancreas and aorta and IVC.
== END 2022-04-13 07:56 | disposition home or self-care (01) ==
LOC: HO.US 07:55
PROVIDERS: Visit Provider Internal Medicine
DX: K82.4 Cholesterolosis of gallbladder (principal)
CPT/HCPCS: 76700

== ENCOUNTER 2022-04-17 16:52 | Emergency (ER) | payer MEDICARE, MEDICAID, SELFPAY ==
--- NOTE | ~2022-04-17 | NM_ITS ---
PULMONARY PERFUSION STUDY: CLINICAL INDICATION: Sharp ripping back pain. Iodinated contrast allergy. History of CHF. COMPARISON: Chest x-ray 04/14/2021 PROCEDURE: Following following the intravenous administration of 4 millicuries technetium 99m MAA, images of the chest were again obtained in multiple projections using a gamma scintophoto camera. PERFUSION IMAGES: No segmental perfusion defects or other perfusion abnormalities are noted. NM/NM pul perfusion IMPRESSION: No perfusion defect to suggest pulmonary embolus.
[2022-04-17 17:13] VITALS: BP 131/83; BP 147/77; PULSE 81; PULSE 86; RESP 16; TEMP 37.5; O2SAT 95; O2SAT 97; BMI 30.2
--- NOTE | 2022-04-17 17:21 | PC.NURSE ---
Patient came in presenting upper posterior upper back pain gets worst with inspiration, patients has Hx of sleep apnea, stroke, SD, and a-fib. Patient reports the pain doesn't radiate any where and is constant.
--- NOTE | 2022-04-17 17:24 | ECG_ITS ---
Test Reason : SOB Blood Pressure : / mmHG Vent. Rate : 082 BPM Atrial Rate : 082 BPM P-R Int : 250 ms QRS Dur : 100 ms QT Int : 388 ms P-R-T Axes : 027 -45 029 degrees QTc Int : 453 ms Sinus rhythm with 1st degree A-V block with Premature atrial complexes with Aberrant conduction Left anterior fascicular block Minimal voltage criteria for LVH, may be normal variant ( R in aVL ) Abnormal ECG When compared with ECG of 14-APR-2021 10:01, Premature ventricular complexes are no longer Present Aberrant conduction is now Present Referred By: Wendy Flores Electronically Signed By:RENATO NICHOLAS
--- NOTE | 2022-04-17 17:24 | ED.GENADULT ---
HPI - General Adult General Chief complaint: Back Pain/Injury Stated complaint: BACK PAIN Source: patient and EMS Mode of arrival: EMS Limitations: no limitations History of Present Illness HPI narrative: 77-year-old male presents via EMS for severe ripping back pain that causes chest pain and shortness of breath. He appears to be in distress, is able to speak in complete sentences, and follow directions. Reports that he had an abdominal ultrasound and CT scan on the and 15 of April for abdominal pain. At this time, patient states to be in 10/10 pain, unable to take a deep breath because of sharp pain. Denies dizziness, weakness, trauma, injury, falls, diaphoresis, changes in vision, abdominal distention, dysuria, hematuria. Onset (ago): hour(s) (Within the hour of arrival) Location: chest, back and abdomen Radiation: back Severity: severe Severity scale (1-10): 10 Quality: stabbing and sharp Pain Consistency: intermittent Relieving factors: none Exacerbating factors: movement and other (Palpation) Associated symptoms: chest pain and shortness of breath Treatments prior to arrival: none Related Data Home Medications Medication Instructions Recorded Confirmed carvedilol phosphate 40 mg 40 mg PO DAILY 11/14/20 04/06/22 capsule,[id number] multiphase eplerenone 25 mg tablet 25 mg PO DAILY 11/14/20 04/06/22 lorazepam 0.5 mg tablet 0.5 mg PO BID 11/14/20 04/06/22 omeprazole 20 mg capsule,delayed 20 mg PO DAILY 11/14/20 04/06/22 release simvastatin 40 mg tablet 20 mg PO DAILY 11/14/20 04/06/22 calcium carbonate 500 mg-vitamin 1 tab PO DAILY 04/14/21 04/06/22 D3 3.125 mcg (125 unit) tablet coenzyme Q10 100 mg capsule 100 mg PO DAILY 04/14/21 04/06/22 (CoQ-10) magnesium 1 tab PO DAILY 04/14/21 04/06/22 warfarin 2.5 mg tablet mg PO 04/28/21 04/06/22 triamcinolone acetonide 0.1 % 1 appl topical BID-TID 10/01/21 04/06/22 topical cream Previous Rx's Medication Instructions Recorded ondansetron 4 mg disintegrating 4 mg PO Q8H PRN nausea and 04/14/21 tablet vomiting #20 tabs Allergies Allergy/AdvReac Type Severity Reaction Status Date / Time adenosine Allergy Severe cardia Verified 04/06/22 09:11 Iodinated Contrast Media Allergy Severe Seizure Verified 04/06/22 09:11 [CONTRAST, IV] erythromycin base AdvReac Unknown Gut pain Verified 04/06/22 09:11 [From Ilosone] and ADB Pain Adedison Allergy Severe Elevated BP Uncoded 04/06/22 09:11 gadolinium Allergy Severe red eues Uncoded 04/06/22 09:11 Ilosone Allergy Severe burning Uncoded 04/06/22 09:11 stomach carvedilor Allergy Intermediate disorientat Uncoded 04/06/22 09:11 ion adenisen Allergy Unknown stroke Uncoded 04/06/22 09:11 Erythromyacin Allergy Unknown abd pain Uncoded 04/06/22 09:11 Erythromycin Allergy Unknown UNKNOWN Uncoded 04/06/22 09:11 Erythromyicin Allergy Unknown GI Upset Uncoded 04/06/22 09:11 Ilisone Allergy Unknown GI Upset Uncoded 04/06/22 09:11 illosone Allergy Unknown abd pain Uncoded 04/06/22 09:11 Review of Systems Review of Systems: Constitutional: No Fever, No Chills, positive lethargy ENT/Mouth: No Ear Pain, No Hoarseness, No sore throat Eyes: No Eye Pain, No Swelling, No Redness, No Foreign Body Cardiovascular: Positive Chest Pain, positive SOB Respiratory: No Cough, No Dyspnea Gastrointestinal: No Nausea, No Vomiting, No Diarrhea, No abdominal Pain Genitourinary: No Dysuria, No Hematuria Musculoskeletal: No joint pain, No Myalgias, No Joint Swelling Skin: No Skin lacerations, No rash Neuro: No Weakness, No Numbness, No Paresthesias, No Loss of Consciousness, No Dizziness, No Headache Psych: No Anxiety/Panic, No Depression Heme/Lymph: no easy bruising, no Lymphadenopathy Endocrine: No Polyuria, No Polydipsia Yes all other systems are reviewed and are negative [facility] Past Medical History Attestation statement: The following information was validated with the patient. Source: old records reviewed Medical History A-fib Anxiety CHF (congestive heart failure) CVA (cerebral vascular accident) Myocardial infarct, old Surgical History History of appendectomy Social History Social History Patient Tobacco Use Status: Never used Tobacco Use of substances other than those prescribed or required for medical reasons: No Advance Directives: Yes Advance Directives Information Provided: No Advance Directives on File: No Physical Exam ED Vital Signs: Vital Signs - 24 hr 04/17/22 17:13 04/17/22 17:46 Temperature 99.5 F Pulse Rate 81 Respiratory Rate 16 19 Blood Pressure 147/77 H Pulse Oximetry 95 Oxygen Delivery Method Room Air BMI result Body Mass Index 30.2 Appearance: Alert. Oriented X3. Moderate distress. Eyes: Pupils equal, round and reactive to light. EOMI. Sclera nonicteric. ENT: Pharynx normal. Moist mucous membranes. Neck: Normal inspection. Neck supple. No vertebral tenderness or step-offs. CVS: Normal heart rate and rhythm. Pulses normal. Chest wall tenderness to palpation. Respiratory: No respiratory distress. Lung sounds clear to auscultation to all lobes. Abdomen: Soft and Diffusely tender throughout. Skin: Skin warm and dry. Normal skin color. Normal skin turgor. Extremities: No lower extremity edema. Moves all extremities against resistance. Gait not assessed for safety. Neuro: No motor deficit. No sensory deficit. Cranial nerves 2-12 intact. Course Course Course Narrative: 77-year-old male presents with sharp ripping mid back pain between the scapula radiating to his chest. He has a history of DE, AFib, stroke and prostate cancer currently taking Coumadin. He does not know if he has a history of aneurysms, recently had CT and ultrasound of abdomen and pelvis with negative findings on the and 15 of April. At this time there is concern for possible aneurysm dissection because of his description of the pain that he has. Low likelihood of PE as he is on Coumadin at this time. Will order labs, EKG, tropes and V/Q scan. Patient advised several times that he must remain NPO in case he requires surgical intervention. 21:20 V/Q perfusion scan negative for acute findings. Low likelihood of rupturing aneurysm at this time. Patient given p.o. fluids by this HAND PLEATER. Pain could most likely be musculoskeletal, costochondritis, versus degenerative disc disease. Will have patient follow-up with his primary care physician. Patient verbalized understanding of and agrees to plan care discharge home. Medical Decision Making MDM Narrative Medical decision making narrative: ACS Differential Diagnosis Differential Diagnosis: AAA, rupture, arch disruption, cholecystitis, cholelithiasis, pancreatitis, Medical Records Medical records reviewed: Yes I reviewed the patient's medical records. Lab Data Lab results reviewed: Yes I reviewed the patient's lab results. Result diagrams: 04/17/22 18:11 04/17/22 18:11 Labs: Lab Results 04/17/22 04/17/22 04/17/22 Range/Units 18:11 18:11 18:11 WBC (4.8-10.8) X10*3/uL RBC (4.60-5.80) X10*6/uL Hgb (14.0-18.0) g/dl Hct (42.0-52.0) % MCV (80.0-98.0) fL MCH (27.0-33.0) pg MCHC (31.0-36.0) g/dl RDW (11.0-16.0) % Plt Count (160-400) X10*3/uL MPV (9.4-12.4) fL Immature Gran % (Auto) (0.0-0.4) % Neut % (Auto) (45-73) % Lymph % (Auto) (20-40) % [place] % (Auto) (2-11) % Eos % (Auto) (0-4) % Baso % (Auto) (0-2) % Lymph # (Auto) (1.2-4.9) X10*3/uL [place] # (Auto) (0.1-1.2) X10*3/uL Eos # (Auto) (0.0-0.4) X10*3/uL Baso # (Auto) (0.0-0.2) X10*3/uL Abs Immat Gran (auto) (0.00-0.03) X10*3/uL Absolute Neuts (auto) (2.0-8.3) x10*3/uL Absolute Nucleated RBC (0.0-0.012) X10*3/uL Nucleated RBC % (auto) (0.0-0.2) /100WBC PT 22.8 H (10.0-13.1) SEC INR 1.9 H (0.9-1.1) APTT (26.0-36.4) SEC Sodium 137 (135-145) mmol/L Potassium 4.1 (3.3-5.1) mmol/L Chloride 103 (96-108) mmol/L Carbon Dioxide 24 (22-29) mmol/L Anion Gap 14 (12-20) BUN 19 H (9-16) mg/dL Creatinine 1.26 (0.5-1.4) mg/dL Estim Creat Clear Calc 59.6 Estimated GFR 56 Random Glucose 151 H (60-115) mg/dL Calcium 8.7 D (8.4-10.2) mg/dL Magnesium 1.6 (1.6-2.6) mg/dL Total Bilirubin 0.8 (0.0-1.0) mg/dL Direct Bilirubin 0.3 (0.0-0.5) mg/dL AST 19 (5-37) U/L ALT 26 (0-40) U/L Alkaline Phosphatase 80 (39-117) U/L Troponin I High Sens 13.7 (<3.5-35.0) ng/L B-Natriuretic Peptide (<100) pg/mL Total Protein 6.2 L (6.5-8.0) g/dL Albumin 3.7 (3.5-5.0) g/dL Lipase 45 (8-78) U/L 04/17/22 04/17/22 04/17/22 Range/Units 18:11 18:11 18:11 WBC 10.7 (4.8-10.8) X10*3/uL RBC 4.84 (4.60-5.80) X10*6/uL Hgb 14.6 (14.0-18.0) g/dl Hct 42.5 (42.0-52.0) % MCV 87.8 (80.0-98.0) fL MCH 30.2 (27.0-33.0) pg MCHC 34.4 (31.0-36.0) g/dl RDW 13.3 (11.0-16.0) % Plt Count 146 L (160-400) X10*3/uL MPV 11.1 (9.4-12.4) fL Immature Gran % (Auto) 0.4 (0.0-0.4) % Neut % (Auto) 71.8 (45-73) % Lymph % (Auto) 17.6 L (20-40) % [place] % (Auto) 9.0 (2-11) % Eos % (Auto) 0.8 (0-4) % Baso % (Auto) 0.4 (0-2) % Lymph # (Auto) 1.9 (1.2-4.9) X10*3/uL [place] # (Auto) 1.0 (0.1-1.2) X10*3/uL Eos # (Auto) 0.1 (0.0-0.4) X10*3/uL Baso # (Auto) 0.0 (0.0-0.2) X10*3/uL Abs Immat Gran (auto) 0.04 H (0.00-0.03) X10*3/uL Absolute Neuts (auto) 7.7 (2.0-8.3) x10*3/uL Absolute Nucleated RBC 0.000 (0.0-0.012) X10*3/uL Nucleated RBC % (auto) 0.0 (0.0-0.2) /100WBC PT (10.0-13.1) SEC INR (0.9-1.1) APTT 38.0 H (26.0-36.4) SEC Sodium (135-145) mmol/L Potassium (3.3-5.1) mmol/L Chloride (96-108) mmol/L Carbon Dioxide (22-29) mmol/L Anion Gap (12-20) BUN (9-16) mg/dL Creatinine (0.5-1.4) mg/dL Estim Creat Clear Calc Estimated GFR Random Glucose (60-115) mg/dL Calcium (8.4-10.2) mg/dL Magnesium (1.6-2.6) mg/dL Total Bilirubin (0.0-1.0) mg/dL Direct Bilirubin (0.0-0.5) mg/dL AST (5-37) U/L ALT (0-40) U/L Alkaline Phosphatase (39-117) U/L Troponin I High Sens (<3.5-35.0) ng/L B-Natriuretic Peptide 349 H (<100) pg/mL Total Protein (6.5-8.0) g/dL Albumin (3.5-5.0) g/dL Lipase (8-78) U/L Imaging Data V/Q scan: Attestation: I personally reviewed and interpreted this imaging study as follows: Radiologist's impression: PULMONARY PERFUSION STUDY: CLINICAL INDICATION: Sharp ripping back pain. Iodinated contrast allergy. History of CHF. COMPARISON: Chest x-ray 04/14/2021 PROCEDURE: Following following the intravenous administration of 4 millicuries technetium 99m MAA, images of the chest were again obtained in multiple projections using a gamma scintophoto? camera. PERFUSION IMAGES: No segmental perfusion defects or other perfusion abnormalities are noted. NM/NM pul perfusion IMPRESSION: No perfusion defect to suggest pulmonary embolu ECG Data Attestation: I personally reviewed and interpreted this ECG as follows: Prior ECG tracings: available for review Interpretation: Vent. rate 82 BPM AR interval 250 ms QRS duration 100 ms QT/QTc 388/453 ms P-R-T axes 27 -45 29 Sinus rhythm with 1st degree A-V block with Premature atrial complexes with Aberrant conduction Left anterior fascicular block Minimal voltage criteria for LVH, may be normal variant ( R in aVL ) Abnormal ECG When compared with ECG of 14-APR-2021 10:01, Premature ventricular complexes are no longer Present Aberrant conduction is now Present 17-APR-2022 17:25:12 Scores Heart Score History: -1- moderately suspicious ECG: -0- normal Age: -2- > or = 65 Risk factory: -1- 1 or 2 risk factors Troponin: -0- < or = normal limit Score: 4 Risk: 16.6% Discharge Plan Discharge Clinical Impression: Chest pain, Back pain, Shortness of breath Patient Disposition: Home, Self-Care Instructions: Back Pain (ED), Chest Wall Pain (ED), Shortness of Breath (ED) Additional Instructions: You were evaluated for back pain radiating from the chest, shortness of breath and lethargy. V/Q scan is negative for aortic aneurysm and acute findings. The abdominal ultrasound and CT scan on the and negative for acute findings. Alternate Tylenol 650 mg every 6 hours and Motrin 600 mg every 6 hours as needed for pain management. Please write down what time take these medications to prevent accidental overdose. Your EKG was indicates anterior fascicular block, which is consistent with her prior EKGs. Your cardiac enzymes are negative. Continue to take your medications as directed by prior providers. Follow-up with primary care physician this week. Return to the emergency department for any new, concerning, or worsening symptoms. Prescriptions: No Action coenzyme Q10 [CoQ-10] 100 mg Capsule 100 mg PO DAILY magnesium Tablet 1 tab PO DAILY Label Comments: patient unsure of dose calcium carbonate-vitamin D3 [Calcium 500 + D (D3)] 500 mg(1,250mg) -125 unit Tablet 1 tab PO DAILY ondansetron 4 mg tablet,disintegrating 4 mg PO Q8H PRN (Reason: nausea and vomiting) Qty: 20 0RF lorazepam 0.5 mg tablet 0.5 mg PO BID omeprazole 20 mg capsule,delayed release(DR/EC) 20 mg PO DAILY eplerenone 25 mg tablet 25 mg PO DAILY carvedilol phosphate 40 mg capsule, ER multiphase 24 hr 40 mg PO DAILY simvastatin 40 mg tablet 20 mg PO DAILY warfarin 2.5 mg tablet PO Protocol: Dose Management Condition: Tuesday (Week One) Dose/Route: 7.5 mg Instruction: 3 x 2.5 mg tablets Condition: Tuesday Dose/Route: 7.5 mg Instruction: 3 x 2.5 mg tablets Condition: Tuesday Dose/Route: 7.5 mg Instruction: 3 x 2.5 mg tablets Condition: Tuesday Dose/Route: 5 mg Instruction: 2 x 2.5 mg tablets Condition: Dose/Route: 7.5 mg Instruction: 3 x 2.5 mg tablets Condition: Tuesday Dose/Route: 7.5 mg Instruction: 3 x 2.5 mg tablets Condition: Tuesday Dose/Route: 7.5 mg Instruction: 3 x 2.5 mg tablets Condition: Tuesday (Week Two) Dose/Route: 7.5 mg Instruction: 3 x 2.5 mg tablets Condition: Tuesday Dose/Route: 7.5 mg Instruction: 3 x 2.5 mg tablets Condition: Tuesday Dose/Route: 7.5 mg Instruction: 3 x 2.5 mg tablets Condition: Tuesday Dose/Route: 5 mg Instruction: 2 x 2.5 mg tablets Condition: Dose/Route: 7.5 mg Instruction: 3 x 2.5 mg tablets Condition: Tuesday Dose/Route: 7.5 mg Instruction: 3 x 2.5 mg tablets Condition: Tuesday Dose/Route: 7.5 mg Instruction: 3 x 2.5 mg tablets Protocol Text: Adjustment Start Date: Tuesday04/06/22 INR Value: 3.2 INR Date: 04/06/22 Recheck Date: 05/04/22 Additional Instructions: EAT GREENS TODAY AND TOMORROW / SKIP REDS TODAY triamcinolone acetonide 0.1 % cream 1 appl topical BID-TID Interventions: ED Discharge Assessment Last Done: 04/17/22 22:04 Discharge Date/Time: 04/17/22 22:06
[2022-04-17 17:46] VITALS: RESP 19
[2022-04-17] MEDS: Morphine Sulfate 4 MG/ML CARTRIDGE IVPUSH (17:46)
[2022-04-17] MEDS: ondansetron HCL 4 MG/2 ML VIAL IVPUSH (17:49)
--- NOTE | 2022-04-17 18:03 | PC.NURSE ---
Addendum entered by Rodrick Aldana 04/17/22 19:13: Patient was connected to hall monitor, at 17:49 morphine and zofran was administered, RN assisted patient with the urinal and he was able to stand. EKG was completed and it showed first degree block with PCV and vitals were taken and stable. Original Note: Patient is a/o x 4, labs are being drawn by a tech, meds were administer by .NET ARCHITECT order, patient has no apparent distress.
[2022-04-17 18:18] LABS: MANUAL DIFF FLAG NO
[2022-04-17 18:20] LABS: Basophils Percent Auto 0.4 % (0-2); Eosinophils Absolute Auto 0.1 X10*3/uL (0.0-0.4); Eosinophils Percent Auto 0.8 % (0-4); Hematocrit 42.5 % (42.0-52.0); Hemoglobin 14.6 g/dl (14.0-18.0); Imm Gran Abs Auto 0.04 X10*3/uL (0.00-0.03); Imm Gran Pct Auto 0.4 % (0.0-0.4); Lymphocytes Absolute Auto 1.9 X10*3/uL (1.2-4.9); Lymphocytes Percent Auto 17.6 % (20-40); Mean Corpuscular HGB Conc 34.4 g/dl (31.0-36.0); Mean Corpuscular Hemoglobin 30.2 pg (27.0-33.0); Mean Corpuscular Volume 87.8 fL (80.0-98.0); Mean Platelet Volume 11.1 fL (9.4-12.4); Neutrophils Absolute Auto 7.7 x10*3/uL (2.0-8.3); Neutrophils Percent Auto 71.8 % (45-73); Platelet Count 146 X10*3/uL (160-400); Red Blood Count 4.84 X10*6/uL (4.60-5.80); Red Cell Distribution Width 13.3 % (11.0-16.0); White Blood Count 10.7 X10*3/uL (4.8-10.8)
[2022-04-17 18:36] LABS: INTERNATIONAL NORM RATIO 1.9 (0.9-1.1); Prothrombin Time 22.8 SEC (10.0-13.1)
[2022-04-17 18:38] LABS: Alanine Aminotransferase 26 U/L (0-40); Albumin Level 3.7 g/dL (3.5-5.0); Alkaline Phosphatase 80 U/L (39-117); Anion Gap 14 (12-20); Aspartate Amino Transferase 19 U/L (5-37); Bilirubin Direct 0.3 mg/dL (0.0-0.5); Bilirubin Total 0.8 mg/dL (0.0-1.0); Blood Urea Nitrogen 19 mg/dL (9-16); Calcium 8.7 mg/dL (8.4-10.2); Carbon Dioxide 24 mmol/L (22-29); Chloride 103 mmol/L (96-108); Creatinine Clr Calc Pharmacy 59.6; Estimated Glomerular Filt Rate 56; Glucose Random 151 mg/dL (60-115); Lipase 45 U/L (8-78); Magnesium 1.6 mg/dL (1.6-2.6); Potassium 4.1 mmol/L (3.3-5.1); Sodium 137 mmol/L (135-145); Total Protein 6.2 g/dL (6.5-8.0)
[2022-04-17 18:44] LABS: B Type Natriuretic Peptide 349 pg/mL (<100)
[2022-04-17 19:00] LABS: Troponin-I High Sensitivity 13.7 ng/L (<3.5-35.0)
--- NOTE | 2022-04-17 19:46 | PC.NURSE ---
Assumed care of pt. at 1900. Pt. states that he continues to have pain in the middle of his back, down to a 7 from a 10 after taking 4mg morphine. Pt. is alert and oriented x3. Pt. expresses some anxiety over not knowing what is wrong and is fearful of an aneurysm. Scan is pending. Pt. requesting ice chips, provider says to hold off for now pending scan. Pt. lying quietly in bed.
--- NOTE | 2022-04-17 22:03 | PC.NURSE ---
I assumed care of Russell at 1900. Since that time he has been alert, oriented x 3, without chest pain, without SOB. No nausea. NO vomiting. D/C'd at this tie. He vealized an understanding of all DC orders and ambulated out of the ED independently and with steady gait.
== END 2022-04-17 22:06 | disposition home or self-care (01) ==
PROVIDERS: Nurse Practitioner Family; Emergency Provider Emergency Medicine; PCP Internal Medicine
DX: R07.9 Chest pain, unspecified (principal); R06.02 Shortness of breath; M54.9 Dorsalgia, unspecified; I48.91 Unspecified atrial fibrillation; Z79.01 Long term (current) use of anticoagulants
CPT/HCPCS: 36415; 78580; 80048; 80076; 83690; 83735; 83880; 84484; 85025; 85610; 85730; 93005; 96374; 96375; 99284; A9540; J2270; J2405

== ENCOUNTER 2022-05-04 09:02 | Outpatient (REF) | payer MEDICARE, MEDICAID, SELFPAY ==
--- NOTE | ~2022-05-04 | CT_ITS ---
EXAMINATION: CT CHEST WITHOUT CONTRAST CLINICAL INFORMATION: Chest pain. COMPARISON: 04/14/2021 TECHNIQUE: Multidetector volumetric CT imaging of the chest was done. Axial MIP volume rendering provided. Sagittal and coronal reformatted images were obtained. This CT examination was performed using dose optimization techniques as appropriate, variously including the following: *Automated exposure control *Adjustment of mA and/or kV according to patient size (this includes techniques or standardized protocols for targeted exams where dose is matched to indication/reason for exam; i.e. extremities or head) *Use of iterative reconstruction technique DLP: 256 mGy-cm FINDINGS: LUNGS: The central airways are patent. No significant bronchial wall thickening is appreciated. No bronchiectasis is seen. No confluent parenchymal disease. No significant emphysematous change is appreciated. Linear scarring is seen within both lower lobes. No suspicious nodules identified. MEDIASTINUM: Heart is normal size. Coronary artery calcifications are present. No pericardial effusion. Ascending thoracic aorta measures up to 4 cm in diameter. There is mild nonocclusive aortic arch calcified plaque present. No lymphadenopathy appreciated. Visualized thyroid gland is unremarkable. PLEURA: No pleural effusion is evident. No pneumothorax is seen. There are some pleural and subpleural calcifications seen at the lung bases bilaterally posteriorly. This may be secondary to old granulomatous disease or asbestos exposure. AXILLA: No lymphadenopathy. UPPER ABDOMEN: Unremarkable. OSSEOUS STRUCTURES: No suspicious destructive bony lesions identified. There is bilateral glenohumeral joint degenerative change as well as right acromioclavicular degenerative change. There is multilevel degenerative disc disease with marginal spurring seen within the thoracic spine. CT/CT chest wo IV con IMPRESSION: No significant acute parenchymal disease is identified. Prominent ascending thoracic aorta measuring up to 4 cm in diameter. Coronary artery calcification. Subpleural and pleural calcifications lung bases bilaterally. Fleischner guidelines were followed.
== END 2022-05-04 09:03 | disposition home or self-care (01) ==
LOC: HO.CT 09:02
PROVIDERS: PCP Internal Medicine; Visit Provider Internal Medicine
DX: R07.9 Chest pain, unspecified (principal); I48.20 Chronic atrial fibrillation, unspecified; Z51.81 Encounter for therapeutic drug level monitoring; Z79.01 Long term (current) use of anticoagulants
CPT/HCPCS: 71250; 85610; 99211

== ENCOUNTER 2022-05-16 23:33 | Emergency (ER) | payer MEDICARE, MEDICAID, SELFPAY ==
--- NOTE | ~2022-05-16 | CT_ITS ---
EXAMINATION: CT CHEST WITHOUT CONTRAST CLINICAL INFORMATION: Back and chest pain. COMPARISON: 05/04/2022 TECHNIQUE: Multidetector volumetric CT imaging of the chest was done. Axial MIP volume rendering provided. Sagittal and coronal reformatted images were obtained. This CT examination was performed using dose optimization techniques as appropriate, variously including the following: *Automated exposure control *Adjustment of mA and/or kV according to patient size (this includes techniques or standardized protocols for targeted exams where dose is matched to indication/reason for exam; i.e. extremities or head) *Use of iterative reconstruction technique DLP: 492 mGy-cm FINDINGS: [employer] WORKER: Mild elevation of the left hemidiaphragm. LUNGS: The central airways are patent. Mild dependent atelectasis. No dense consolidation. No pulmonary nodules. No pneumothorax. MEDIASTINUM: Enlarged heart. Mildly prominent ascending thoracic aorta which measures 3.9 cm. No pericardial effusion. No mediastinal lymphadenopathy. CORONARY ARTERY CALCIFICATION: Mild coronary artery calcification. PLEURA: There is no pleural effusion. Pleural calcifications are noted. AXILLA: No lymphadenopathy. UPPER ABDOMEN: Unremarkable. OSSEOUS STRUCTURES: Kyphosis. No acute fracture or malalignment of the thoracic spine with multilevel endplate osteophytes. Multilevel facet arthropathy. Intact sternum. No rib fracture identified. Degenerative change of both shoulders. CT/CT chest wo IV con IMPRESSION: No acute abnormality of the chest. Degenerative changes of the spine with kyphosis. Fleischner guidelines were followed.
--- NOTE | ~2022-05-16 | XR_ITS ---
EXAMINATION: XR CHEST CLINICAL INFORMATION: Chest pain COMPARISON: 04/14/2021 TECHNIQUE: Frontal view of the chest was obtained. FINDINGS: Lung volumes are low. Soft tissue overlies the lung apices, limiting evaluation. No consolidation, edema, or effusion. No pneumothorax. The cardiomediastinal silhouette is unchanged. XR/XR chest 1V IMPRESSION: No acute pulmonary finding.
--- NOTE | 2022-05-16 23:45 | ECG_ITS ---
Test Reason : CHEST PAIN Blood Pressure : / mmHG Vent. Rate : 097 BPM Atrial Rate : 097 BPM P-R Int : 238 ms QRS Dur : 104 ms QT Int : 342 ms P-R-T Axes : 014 -42 038 degrees QTc Int : 434 ms Sinus rhythm with 1st degree A-V block Left axis deviation Minimal voltage criteria for LVH, may be normal variant ( R in aVL ) Abnormal ECG When compared with ECG of 17-APR-2022 17:25, Aberrant conduction is no longer Present Referred By: Rhonda Green Electronically Signed By:RENATO NICOHLAS
[2022-05-17] VITALS (7 sets, daily range): BP systolic 110–149; BP diastolic 60–92; PULSE 76–98; RESP 16–25; TEMP 36.7–37.2; O2SAT 93–98; BMI 32.5
--- NOTE | 2022-05-17 00:15 | ED.GENADULT ---
HPI - General Adult General Chief complaint: Chest Pain Stated complaint: upper back pain/chest Time Seen by Provider: 05/16/22 23:45 Source: patient Mode of arrival: EMS History of Present Illness HPI narrative: 77-year-old male with presentation via EMS for acute 03/31 upper back pain radiating into the left chest and shoulder not associated with any headache, dizziness, neck pain, shortness of breath. Patient states that the pain started approximately 16:00 in the afternoon and he has taken 1 Tylenol since that time to help control the pain. He states that this has happened once before and that time he was diagnosed with musculoskeletal pain. Patient states that he was picking up sticks in his garden and he feels this may have contributed to his discomfort. Related Data Home Medications Medication Instructions Recorded Confirmed carvedilol phosphate 40 mg 40 mg PO DAILY 11/14/20 04/06/22 capsule,[id number] multiphase eplerenone 25 mg tablet 25 mg PO DAILY 11/14/20 04/06/22 lorazepam 0.5 mg tablet 0.5 mg PO BID 11/14/20 04/06/22 omeprazole 20 mg capsule,delayed 20 mg PO DAILY 11/14/20 04/06/22 release simvastatin 40 mg tablet 20 mg PO DAILY 11/14/20 04/06/22 calcium carbonate 500 mg-vitamin 1 tab PO DAILY 04/14/21 04/06/22 D3 3.125 mcg (125 unit) tablet coenzyme Q10 100 mg capsule 100 mg PO DAILY 04/14/21 04/06/22 (CoQ-10) magnesium 1 tab PO DAILY 04/14/21 04/06/22 warfarin 2.5 mg tablet mg PO 04/28/21 05/04/22 triamcinolone acetonide 0.1 % 1 appl topical BID-TID 10/01/21 04/06/22 topical cream Previous Rx's Medication Instructions Recorded ondansetron 4 mg disintegrating 4 mg PO Q8H PRN nausea and 04/14/21 tablet vomiting #20 tabs cyclobenzaprine 5 mg tablet 5 mg PO BEDTIME PRN muscle spasm 05/17/22 #3 tabs Allergies Allergy/AdvReac Type Severity Reaction Status Date / Time adenosine Allergy Severe cardia Verified 05/04/22 08:41 Iodinated Contrast Media Allergy Severe Seizure Verified 05/04/22 08:41 [CONTRAST, IV] erythromycin base AdvReac Unknown Gut pain Verified 04/06/22 09:11 [From Ilosone] and ADB Pain Adedison Allergy Severe Elevated BP Uncoded 05/04/22 08:41 gadolinium Allergy Severe red eues Uncoded 05/04/22 08:41 Ilosone Allergy Severe burning Uncoded 05/04/22 08:41 stomach carvedilor Allergy Intermediate disorientat Uncoded 05/04/22 08:41 ion adenisen Allergy Unknown stroke Uncoded 05/04/22 08:41 Erythromyacin Allergy Unknown abd pain Uncoded 05/04/22 08:41 Erythromycin Allergy Unknown UNKNOWN Uncoded 05/04/22 08:41 Erythromyicin Allergy Unknown GI Upset Uncoded 05/04/22 08:41 Ilisone Allergy Unknown GI Upset Uncoded 04/06/22 09:11 illosone Allergy Unknown abd pain Uncoded 04/06/22 09:11 Review of Systems Review of Systems: Pertinent positives and negatives as stated in HPI 10 point review of systems is otherwise negative. PMFSH Past Medical History Source: nursing notes reviewed Medical History A-fib Anxiety CHF (congestive heart failure) CVA (cerebral vascular accident) Myocardial infarct, old Surgical History History of appendectomy Social History Social History Patient Tobacco Use Status: Never used Tobacco Advance Directives: No Advance Directives Information Provided: Yes Physical Exam ED Vital Signs: Vital Signs - 24 hr 05/17/22 00:19 05/17/22 00:22 05/17/22 00:23 Temperature 98.0 F 98.0 F Pulse Rate 98 94 95 Respiratory Rate 20 25 H 20 Blood Pressure 145/86 H 149/91 H 143/92 H Pulse Oximetry 95 95 95 Oxygen Delivery Method Room Air Room Air Room Air 05/17/22 02:00 Temperature 98.0 F Pulse Rate 92 Respiratory Rate 16 Blood Pressure 122/80 Pulse Oximetry 98 Oxygen Delivery Method Room Air BMI result Body Mass Index 32.5 VITAL SIGNS: Reviewed. GENERAL: Well developed, well nourished, in no acute distress. HEAD: Normocephalic/atraumatic EYES: PERRLA, EOMI EARS: Ext canals without abnormality OROPHARYNX: no oral lesions noted, posterior pharynx clear LUNGS: Normal breath sounds. No adventitious sounds or accessory muscle use. SpO2<95>; CHEST WALL: Reproducible chest pain on palpation at the left anterior chest wall CARDIOVASCULAR: Regular rate and rhythm without noted murmurs, no JVD or lower extremity edema, symmetrical radial/ulnar pulses. ABDOMEN: Soft, non-tender, non-distended with bowel sounds. BACK: no midline vertebral tenderness MUSCULOSKELETAL: No tenderness, deformities, or effusions noted on gross inspection. EXTREMITIES: No cyanosis, clubbing or edema. SKIN: Inspection of the skin reveals no rashes NEUROLOGIC: Alert and oriented x 4. Strength and sensation to light touch were grossly intact x 4. Course Course Course Narrative: 77-year-old male with history and clinical presentation consistent with suspected musculoskeletal discomfort, however on review of prior imaging studies patient is noted to have an ascending aortic aneurysm but is allergic to IV contrast. Patient is breathing well, and there is reproducible chest wall pain to further support a musculoskeletal etiology, blood pressure is within normal range and heart rate is only mildly elevated. No evidence to suggest infectious etiology. Review of all investigations negative for acute findings, EKG without acute changes and troponin levels are chronically detectable. CT scan of the chest was negative for any evidence of T-spine fractures/rib fractures to better explain patient's pain. Patient received pain medication and is currently doing much better. He may be discharged in the morning with suspected musculoskeletal pain. Medical Decision Making Lab Data Result diagrams: 05/17/22 00:55 05/17/22 00:55 Labs: Lab Results 05/17/22 05/17/22 05/17/22 Range/Units 00:55 00:55 00:55 WBC 10.9 H (4.8-10.8) X10*3/uL RBC 5.46 (4.60-5.80) X10*6/uL Hgb 15.9 (14.0-18.0) g/dl Hct 47.8 (42.0-52.0) % MCV 87.5 (80.0-98.0) fL MCH 29.1 (27.0-33.0) pg MCHC 33.3 (31.0-36.0) g/dl RDW 13.3 (11.0-16.0) % Plt Count 150 L (160-400) X10*3/uL MPV 10.4 (9.4-12.4) fL Immature Gran % (Auto) 0.3 (0.0-0.4) % Neut % (Auto) 71.9 (45-73) % Lymph % (Auto) 17.7 L (20-40) % [place] % (Auto) 9.5 (2-11) % Eos % (Auto) 0.3 (0-4) % Baso % (Auto) 0.3 (0-2) % Lymph # (Auto) 1.9 (1.2-4.9) X10*3/uL [place] # (Auto) 1.0 (0.1-1.2) X10*3/uL Eos # (Auto) 0.0 (0.0-0.4) X10*3/uL Baso # (Auto) 0.0 (0.0-0.2) X10*3/uL Abs Immat Gran (auto) 0.03 (0.00-0.03) X10*3/uL Absolute Neuts (auto) 7.9 (2.0-8.3) x10*3/uL Absolute Nucleated RBC 0.000 (0.0-0.012) X10*3/uL Nucleated RBC % (auto) 0.0 (0.0-0.2) /100WBC PT 40.1 H (10.0-13.1) SEC INR 3.3 H (0.9-1.1) Sodium 137 (135-145) mmol/L Potassium 4.3 (3.3-5.1) mmol/L Chloride 100 (96-108) mmol/L Carbon Dioxide 25 (22-29) mmol/L Anion Gap 16 (12-20) BUN 18 H (9-16) mg/dL Creatinine 1.16 (0.5-1.4) mg/dL Estim Creat Clear Calc 61.2 Estimated GFR > 60 Random Glucose 160 H (60-115) mg/dL Calcium 9.8 D (8.4-10.2) mg/dL Total Bilirubin 1.1 H (0.0-1.0) mg/dL AST 17 (5-37) U/L ALT 27 (0-40) U/L Alkaline Phosphatase 99 D (39-117) U/L Troponin I High Sens (<3.5-35.0) ng/L B-Natriuretic Peptide (<100) pg/mL Total Protein 7.1 (6.5-8.0) g/dL Albumin 4.3 (3.5-5.0) g/dL 05/17/22 Range/Units 00:55 WBC (4.8-10.8) X10*3/uL RBC (4.60-5.80) X10*6/uL Hgb (14.0-18.0) g/dl Hct (42.0-52.0) % MCV (80.0-98.0) fL MCH (27.0-33.0) pg MCHC (31.0-36.0) g/dl RDW (11.0-16.0) % Plt Count (160-400) X10*3/uL MPV (9.4-12.4) fL Immature Gran % (Auto) (0.0-0.4) % Neut % (Auto) (45-73) % Lymph % (Auto) (20-40) % [place] % (Auto) (2-11) % Eos % (Auto) (0-4) % Baso % (Auto) (0-2) % Lymph # (Auto) (1.2-4.9) X10*3/uL [place] # (Auto) (0.1-1.2) X10*3/uL Eos # (Auto) (0.0-0.4) X10*3/uL Baso # (Auto) (0.0-0.2) X10*3/uL Abs Immat Gran (auto) (0.00-0.03) X10*3/uL Absolute Neuts (auto) (2.0-8.3) x10*3/uL Absolute Nucleated RBC (0.0-0.012) X10*3/uL Nucleated RBC % (auto) (0.0-0.2) /100WBC PT (10.0-13.1) SEC INR (0.9-1.1) Sodium (135-145) mmol/L Potassium (3.3-5.1) mmol/L Chloride (96-108) mmol/L Carbon Dioxide (22-29) mmol/L Anion Gap (12-20) BUN (9-16) mg/dL Creatinine (0.5-1.4) mg/dL Estim Creat Clear Calc Estimated GFR Random Glucose (60-115) mg/dL Calcium (8.4-10.2) mg/dL Total Bilirubin (0.0-1.0) mg/dL AST (5-37) U/L ALT (0-40) U/L Alkaline Phosphatase (39-117) U/L Troponin I High Sens 12.9 (<3.5-35.0) ng/L B-Natriuretic Peptide 449 H (<100) pg/mL Total Protein (6.5-8.0) g/dL Albumin (3.5-5.0) g/dL ECG Data Attestation: I personally reviewed and interpreted this ECG as follows: Prior ECG tracings: available for review Interpretation: sinus rhythm with first-degree AV block, HR- 97, no STEMI, QRS/QTC are within normal limits. Discharge Plan Discharge Clinical Impression: Musculoskeletal pain, Muscle spasm, Chronic anticoagulation Patient Disposition: Still a Patient Instructions: Musculoskeletal Pain (ED), Muscle Spasm (ED) Additional Instructions: 1. Resume all home medications as prescribed. 2. Call the office of your primary care provider this morning and set up an appointment for re-evaluation and further outpatient management and investigations of your musculoskeletal pain. Return to the ER for worsening symptoms. Prescriptions: New cyclobenzaprine 5 mg tablet 5 mg PO BEDTIME PRN (Reason: muscle spasm) Qty: 3 0RF No Action coenzyme Q10 [CoQ-10] 100 mg Capsule 100 mg PO DAILY magnesium Tablet 1 tab PO DAILY Label Comments: patient unsure of dose calcium carbonate-vitamin D3 [Calcium 500 + D (D3)] 500 mg(1,250mg) -125 unit Tablet 1 tab PO DAILY ondansetron 4 mg tablet,disintegrating 4 mg PO Q8H PRN (Reason: nausea and vomiting) Qty: 20 0RF lorazepam 0.5 mg tablet 0.5 mg PO BID omeprazole 20 mg capsule,delayed release(DR/EC) 20 mg PO DAILY eplerenone 25 mg tablet 25 mg PO DAILY carvedilol phosphate 40 mg capsule, ER multiphase 24 hr 40 mg PO DAILY simvastatin 40 mg tablet 20 mg PO DAILY warfarin 2.5 mg tablet PO Protocol: Dose Management Condition: Tuesday (Week One) Dose/Route: 7.5 mg Instruction: 3 x 2.5 mg tablets Condition: Tuesday Dose/Route: 7.5 mg Instruction: 3 x 2.5 mg tablets Condition: Tuesday Dose/Route: 5 mg Instruction: 2 x 2.5 mg tablets Condition: Tuesday Dose/Route: 7.5 mg Instruction: 3 x 2.5 mg tablets Condition: Dose/Route: 7.5 mg Instruction: 3 x 2.5 mg tablets Condition: Tuesday Dose/Route: 7.5 mg Instruction: 3 x 2.5 mg tablets Condition: Tuesday Dose/Route: 5 mg Instruction: 2 x 2.5 mg tablets Condition: Tuesday (Week Two) Dose/Route: 7.5 mg Instruction: 3 x 2.5 mg tablets Condition: Tuesday Dose/Route: 7.5 mg Instruction: 3 x 2.5 mg tablets Condition: Tuesday Dose/Route: 5 mg Instruction: 2 x 2.5 mg tablets Condition: Tuesday Dose/Route: 7.5 mg Instruction: 3 x 2.5 mg tablets Condition: Dose/Route: 7.5 mg Instruction: 3 x 2.5 mg tablets Condition: Tuesday Dose/Route: 7.5 mg Instruction: 3 x 2.5 mg tablets Condition: Tuesday Dose/Route: 5 mg Instruction: 2 x 2.5 mg tablets Protocol Text: Adjustment Start Date: Tuesday05/04/22 INR Value: 3.2 INR Date: 05/04/22 Recheck Date: 05/18/22 Additional Instructions: take 5mg twice a week eat a green today call with any medication changes triamcinolone acetonide 0.1 % cream 1 appl topical BID-TID
[2022-05-17 01:00] LABS: MANUAL DIFF FLAG NO
[2022-05-17 01:01] LABS: Basophils Percent Auto 0.3 % (0-2); Eosinophils Percent Auto 0.3 % (0-4); Hematocrit 47.8 % (42.0-52.0); Hemoglobin 15.9 g/dl (14.0-18.0); Imm Gran Abs Auto 0.03 X10*3/uL (0.00-0.03); Imm Gran Pct Auto 0.3 % (0.0-0.4); Lymphocytes Absolute Auto 1.9 X10*3/uL (1.2-4.9); Lymphocytes Percent Auto 17.7 % (20-40); Mean Corpuscular HGB Conc 33.3 g/dl (31.0-36.0); Mean Corpuscular Hemoglobin 29.1 pg (27.0-33.0); Mean Corpuscular Volume 87.5 fL (80.0-98.0); Mean Platelet Volume 10.4 fL (9.4-12.4); Monocytes Percent Auto 9.5 % (2-11); Neutrophils Absolute Auto 7.9 x10*3/uL (2.0-8.3); Neutrophils Percent Auto 71.9 % (45-73); Platelet Count 150 X10*3/uL (160-400); Red Blood Count 5.46 X10*6/uL (4.60-5.80); Red Cell Distribution Width 13.3 % (11.0-16.0); White Blood Count 10.9 X10*3/uL (4.8-10.8)
[2022-05-17] MEDS: Morphine Sulfate 2 MG/ML CARTRIDGE IVPUSH (01:02)
[2022-05-17 01:08] LABS: INTERNATIONAL NORM RATIO 3.3 (0.9-1.1); Prothrombin Time 40.1 SEC (10.0-13.1)
[2022-05-17 01:22] LABS: B Type Natriuretic Peptide 449 pg/mL (<100); Troponin-I High Sensitivity 12.9 ng/L (<3.5-35.0)
[2022-05-17 01:26] LABS: Alanine Aminotransferase 27 U/L (0-40); Albumin Level 4.3 g/dL (3.5-5.0); Alkaline Phosphatase 99 U/L (39-117); Anion Gap 16 (12-20); Aspartate Amino Transferase 17 U/L (5-37); Bilirubin Total 1.1 mg/dL (0.0-1.0); Blood Urea Nitrogen 18 mg/dL (9-16); Calcium 9.8 mg/dL (8.4-10.2); Carbon Dioxide 25 mmol/L (22-29); Chloride 100 mmol/L (96-108); Creatinine Clr Calc Pharmacy 61.2; Estimated Glomerular Filt Rate > 60; Glucose Random 160 mg/dL (60-115); Potassium 4.3 mmol/L (3.3-5.1); Sodium 137 mmol/L (135-145); Total Protein 7.1 g/dL (6.5-8.0)
[2022-05-17] MEDS: Acetaminophen 325 MG TABLET 975 MG PO (02:42)
[2022-05-17] MEDS: oxyCODONE HCl Immed Release 5 MG TABLET PO (02:43)
[2022-05-17] MEDS: Lidocaine 4 % Patch ADH..PATCH 1 PATCH TRANSDERMA (02:44)
--- NOTE | 2022-05-17 02:45 | PC.NURSE ---
pt medicated for pain management will monitor.
== END 2022-05-17 08:27 | disposition home or self-care (01) ==
PROVIDERS: Emergency Provider Student in an Organized Health Care Education/Training Program
DX: M79.10 Myalgia, unspecified site (principal); M62.830 Muscle spasm of back; R06.02 Shortness of breath; I48.91 Unspecified atrial fibrillation; I50.9 Heart failure, unspecified; Z86.73 Personal history of transient ischemic attack (TIA), and cerebral infarction without residual deficits; Z79.02 Long term (current) use of antithrombotics/antiplatelets; Z79.899 Other long term (current) drug therapy; Z79.01 Long term (current) use of anticoagulants
CPT/HCPCS: 36415; 71045; 71250; 80053; 83880; 84484; 85025; 85610; 93005; 96374; 99284; 99285; J2270

== ENCOUNTER → 2022-05-18 08:57 | Outpatient (BNVA) | payer MEDICARE, MEDICAID, SELFPAY | PROVIDERS: PCP Internal Medicine; Visit Provider Internal Medicine | DX: I48.20 Chronic atrial fibrillation, unspecified (principal); Z79.01 Long term (current) use of anticoagulants; Z51.81 Encounter for therapeutic drug level monitoring | CPT/HCPCS: 85610; 99211 ==

== ENCOUNTER → 2022-06-15 08:27 | Outpatient (BNVA) | payer MEDICARE, MEDICAID, SELFPAY | PROVIDERS: PCP Internal Medicine; Visit Provider Internal Medicine | DX: I48.20 Chronic atrial fibrillation, unspecified (principal); Z79.01 Long term (current) use of anticoagulants; Z51.81 Encounter for therapeutic drug level monitoring | CPT/HCPCS: 85610; 99211 ==

== ENCOUNTER → 2022-07-13 08:22 | Outpatient (BNVA) | payer MEDICARE, MEDICAID, SELFPAY | PROVIDERS: PCP Internal Medicine; Visit Provider Internal Medicine | DX: I48.20 Chronic atrial fibrillation, unspecified (principal); Z79.01 Long term (current) use of anticoagulants; Z51.81 Encounter for therapeutic drug level monitoring | CPT/HCPCS: 85610; 99211 ==

== ENCOUNTER → 2022-08-10 09:09 | Outpatient (BNVA) | payer MEDICARE, MEDICAID, SELFPAY | PROVIDERS: PCP Internal Medicine; Visit Provider Internal Medicine | DX: I48.20 Chronic atrial fibrillation, unspecified (principal); Z79.01 Long term (current) use of anticoagulants; Z51.81 Encounter for therapeutic drug level monitoring | CPT/HCPCS: 85610; 99211 ==

== ENCOUNTER 2022-08-24 09:00 | Outpatient (RCR) | payer MEDICARE, MEDICAID, SELFPAY ==
[2022-07-01 08:05] VITALS: BP 142/84; PULSE 76
--- NOTE | 2022-07-01 11:24 | MHC.PT.EP ---
[facility] [place] Office [place] Office [place] Office [address] Oswaldo Wiggins [address] [phone] F: [phone] F: [phone] F: [phone] F: [phone] Physical Therapy Plan of Care Date of Evaluation: Date of Surgery: Diagnosis: L shoulder pain Assessment: 77 y/o male referred to PT with L shoulder pain. 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 His pain is more episodic in nature and he is unsure what causes pain but pain is typically mid-chest, mid-back and radiates down L UE. Of note, he has been to ED late March and April this year with (-) w/u according to patient. He has an appointment with his head of marketing Dr. Granados next week. He lives alone and receives MOW, has assistance with cleaning, and has a lifeline. He reports difficulty with lifting, moving arm, and dressing. Examination shows limited and painful cervical ROM, limited shoulder ROM, decreased strength, and poor balance/gait pattern. His sx may be cardiac in nature and we will monitor these sx and treat/refer as appropriate. Pt has f/u with his head of marketing on Tuesday as well. However he would benefit from PT as well to address postural deficits, cervical/shoulder ROM and strength, and optimize functional mobility. Educated pt re when to seek acute medical care and pt reports understanding. Frequency and Duration: The patient will be seen 1x/week for 4 weeks Short Term Goals: 2 weeks I with HEP [employer] Scheduler Goals: 4 weeks I with HEP and self management of sx Pt will be able to lift 1/2 gallon milk out of fridge with pain < 3/10 Pt will be able to don/doff jackets with pain < 3/10 Treatment Plan: Modalities to reduce pain, spasms and effusion. Manual therapy to restore motion and function. Therapeutic exercise to improve strength and flexibility. Neuromuscular re-education for posture and balance. Therapeutic activities to return to functional activities of daily living. Electronically signed by: Nurys Magallanes PT Please sign and return to therapist. Thank you for your referral.
--- NOTE | 2022-08-25 12:02 | MHC.PT.DC ---
[facility] [place] Office [place] Office [place] Office [address] Oswaldo Wiggins [address] [phone] F: [phone] F: [phone] F: [phone] F: [phone] Physical Therapy Discharge Report Diagnosis: L shoulder pain Date of Surgery: Date of Evaluation: 07/01/22 Date of Discharge: 08/24/22 Treatments to Date: 4 Cancellations to Date: 0 No Shows to Date: 0 Discharge Status: Improved Function Independent with HEP Discharge Summary: Pt with improving donning/doffing of jacket. We discussed d/c to I HEP and continued to advise pt to comply with mainframe applications developer recommendation of stress test. Electronically signed by: Nurys Magallanes PT Please sign and return to therapist. Thank you for your referral.
== END 2022-08-25 12:03 | disposition home or self-care (01) ==
LOC: HO.PT 09:00
PROVIDERS: PCP Internal Medicine; Visit Provider Internal Medicine
DX: M25.512 Pain in left shoulder (principal)
CPT/HCPCS: 97110; 97140; 97162

== ENCOUNTER → 2022-09-09 08:17 | Outpatient (BNVA) | payer MEDICARE, MEDICAID, SELFPAY | PROVIDERS: PCP Internal Medicine; Visit Provider Internal Medicine | DX: I48.20 Chronic atrial fibrillation, unspecified (principal); Z79.01 Long term (current) use of anticoagulants; Z51.81 Encounter for therapeutic drug level monitoring | CPT/HCPCS: 85610; 99211 ==

== ENCOUNTER 2022-09-10 10:31 | Outpatient (REF) | payer MEDICARE, MEDICAID, SELFPAY ==
[2022-09-10 10:42] LABS: MANUAL DIFF FLAG NO
[2022-09-10 10:47] LABS: Basophils Percent Auto 0.4 % (0-2); Eosinophils Absolute Auto 0.1 X10*3/uL (0.0-0.4); Eosinophils Percent Auto 1.5 % (0-4); Hematocrit 45.4 % (42.0-52.0); Hemoglobin 15.1 g/dl (14.0-18.0); Imm Gran Abs Auto 0.03 X10*3/uL (0.00-0.03); Imm Gran Pct Auto 0.4 % (0.0-0.4); Lymphocytes Absolute Auto 2.3 X10*3/uL (1.2-4.9); Lymphocytes Percent Auto 30.7 % (20-40); Mean Corpuscular HGB Conc 33.3 g/dl (31.0-36.0); Mean Corpuscular Hemoglobin 29.3 pg (27.0-33.0); Mean Platelet Volume 10.8 fL (9.4-12.4); Monocytes Absolute Auto 0.6 X10*3/uL (0.1-1.2); Monocytes Percent Auto 8.7 % (2-11); Neutrophils Absolute Auto 4.3 x10*3/uL (2.0-8.3); Neutrophils Percent Auto 58.3 % (45-73); Platelet Count 154 X10*3/uL (160-400); Red Blood Count 5.16 X10*6/uL (4.60-5.80); Red Cell Distribution Width 13.3 % (11.0-16.0); White Blood Count 7.4 X10*3/uL (4.8-10.8)
[2022-09-10 10:49] LABS: Appearance Urine Clear; Color Urine Yellow; Glucose Urine UA Negative (Negative); Leukocyte Esterase Urine Negative (Negative); Nitrite Urine Negative (Negative); PH 6.5 (5.0-9.0); Urine Blood Negative (Negative); Urine Ketones Negative (Negative); Urine Protein Negative (Neg-Trace)
[2022-09-10 10:55] LABS: Bacteria Urine None Seen (None Seen); Hyaline Casts Urine 0-2 /LPF (0-2); RBC Urine 0-2 /HPF (0-2); Squamous Epithelial Cell Urine 0-2 /HPF (0-2); WBC Urine 0-5 /HPF (0-5)
[2022-09-10 11:11] LABS: Estimated Average Glucose 131 mg/dL; Hemoglobin A1c % 6.2 %
[2022-09-10 12:15] LABS: Alanine Aminotransferase 22 U/L (0-40); Albumin Level 3.9 g/dL (3.5-5.0); Alkaline Phosphatase 93 U/L (39-117); Anion Gap 11 (12-20); Aspartate Amino Transferase 18 U/L (5-37); Bilirubin Total 0.9 mg/dL (0.0-1.0); Blood Urea Nitrogen 19 mg/dL (9-16); Calcium 9.1 mg/dL (8.4-10.2); Carbon Dioxide 28 mmol/L (22-29); Chloride 101 mmol/L (96-108); Cholesterol 122 mg/dL; Estimated Glomerular Filt Rate > 60; Glucose Fasting 120 mg/dL (60-99); HDL Cholesterol 35 mg/dL; LDL Cholesterol Calculated 64 mg/dl; Potassium 4.1 mmol/L (3.3-5.1); Sodium 136 mmol/L (135-145); Total Protein 6.4 g/dL (6.5-8.0); Triglycerides 115 mg/dL
[2022-09-10 12:28] LABS: Creatinine Urine 126.62 mg/dL; Microalbum/Creatinine Ratio Ur 20.5 ug/mg cr
[2022-09-10 12:31] LABS: PSA,Total (Free>4and<10) 0.26 ng/mL (0.00-4.00); Vitamin D 25-OH Total 26.3 ng/mL (>30)
== END 2022-09-10 10:32 | disposition home or self-care (01) ==
LOC: HO.LNP 10:31
PROVIDERS: Visit Provider Internal Medicine
DX: Z00.00 Encounter for general adult medical examination without abnormal findings (principal); R73.09 Other abnormal glucose; E78.00 Pure hypercholesterolemia, unspecified; K76.0 Fatty (change of) liver, not elsewhere classified; E55.9 Vitamin D deficiency, unspecified; E83.51 Hypocalcemia; C61 Malignant neoplasm of prostate
CPT/HCPCS: 80053; 80061; 81001; 82043; 82306; 83036; 84153; 85025

== ENCOUNTER → 2022-10-07 07:56 | Outpatient (BNVA) | payer MEDICARE, MEDICAID, SELFPAY | PROVIDERS: PCP Internal Medicine; Visit Provider Internal Medicine | DX: I48.20 Chronic atrial fibrillation, unspecified (principal); Z51.81 Encounter for therapeutic drug level monitoring; Z79.01 Long term (current) use of anticoagulants | CPT/HCPCS: 85610; 99211 ==

== ENCOUNTER → 2022-11-04 08:05 | Outpatient (BNVA) | payer MEDICARE, MEDICAID, SELFPAY | PROVIDERS: PCP Internal Medicine; Visit Provider Internal Medicine | DX: I48.20 Chronic atrial fibrillation, unspecified (principal); Z79.01 Long term (current) use of anticoagulants; Z51.81 Encounter for therapeutic drug level monitoring | CPT/HCPCS: 85610; 99211 ==

== ENCOUNTER 2022-11-30 05:01 | Inpatient (IN) | payer MEDICARE, MEDICAID, SELFPAY ==
[2022-11-30] VITALS (11 sets, daily range): BP systolic 106–180; BP diastolic 55–102; PULSE 65–128; RESP 17–37; TEMP 36.4–36.8; O2SAT 85–95; BMI 28.8
--- NOTE | 2022-11-30 | ECG_ITS ---
Test Reason : SHORTNESS OF BREATH Blood Pressure : / mmHG Vent. Rate : 119 BPM Atrial Rate : 119 BPM P-R Int : 176 ms QRS Dur : 102 ms QT Int : 334 ms P-R-T Axes : 003 -55 049 degrees QTc Int : 469 ms Sinus tachycardia with frequent Premature ventricular complexes with Possible Atrial tachycardia short burst Left anterior fascicular block Abnormal ECG When compared with ECG of 17-MAY-2022 00:05, Premature ventricular complexes are now Present PA interval has decreased Referred By: Generic ED Physician Electronically Signed By:ELICEO GARCIAS MD
--- NOTE | ~2022-11-30 | XR_ITS ---
EXAMINATION: XR CHEST CLINICAL INFORMATION: Dyspnea. COMPARISON: 05.17.2022 and 04.11.2021 TECHNIQUE: Frontal view of the chest was obtained. FINDINGS: Cardiomegaly and pulmonary venous congestion. Diffuse bronchial wall thickening. No pleural effusion or pneumothorax. No acute osseous abnormalities. XR/XR chest 1V IMPRESSION: * Cardiomegaly and pulmonary venous congestion without overt edema. * Diffuse bronchial wall thickening
--- NOTE | 2022-11-30 05:14 | ED.SOB ---
HPI - SOB/Dyspnea General Chief Complaint: Dyspnea Stated Complaint: SOB,N/V,Abd Pain Time Seen by Provider: 11/30/22 05:13 Source: patient Mode of arrival: EMS Limitations: no limitations History of Present Illness HPI Narrative: Patient with History of AFib, CHF comes here for increased shortness of breath for last 2- 3 days got worse prior to arrival saturating 85% at room air. No history of asthma or COPD no chest pain does have palpitation episodes. Had some blood in the stool but no melena, improved to 95% on 3 L. at age patient noticed slight swelling of the leg for last few days Related Data Home Medications Medication Instructions Recorded Confirmed eplerenone 25 mg tablet 25 mg PO DAILY 11/14/20 10/07/22 lorazepam 0.5 mg tablet 0.5 mg PO BID 11/14/20 10/07/22 omeprazole 20 mg capsule,delayed 20 mg PO DAILY 11/14/20 10/07/22 release simvastatin 40 mg tablet 20 mg PO DAILY 11/14/20 10/07/22 calcium carbonate 500 mg-vitamin 1 tab PO DAILY 04/14/21 10/07/22 D3 3.125 mcg (125 unit) tablet coenzyme Q10 100 mg capsule 100 mg PO DAILY 04/14/21 10/07/22 (CoQ-10) magnesium 1 tab PO DAILY 04/14/21 10/07/22 warfarin 2.5 mg tablet mg PO 04/28/21 11/04/22 carvedilol phosphate 40 mg 40 mg PO DAILY 11/04/22 11/04/22 capsule,[id number] multiphase (Coreg CR) Previous Rx's Medication Instructions Recorded ondansetron 4 mg disintegrating 4 mg PO Q8H PRN nausea and 04/14/21 tablet vomiting #20 tabs cyclobenzaprine 5 mg tablet 5 mg PO BEDTIME PRN muscle spasm 05/17/22 #3 tabs Allergies Allergy/AdvReac Type Severity Reaction Status Date / Time adenosine Allergy Severe cardiac, Verified 11/04/22 08:06 elevated BP, Stroke Gadolinium-Containing Allergy Severe red eyes Verified 11/04/22 08:06 Contrast Medi Iodinated Contrast Media Allergy Severe Seizure Verified 11/04/22 08:06 [CONTRAST, IV] carvedilol Allergy Intermediate disorientat Verified 11/04/22 08:06 ion erythromycin base AdvReac Unknown Gut Verified 11/04/22 08:06 pain , Abdominal Pain, GI upset Review of Systems Review of Systems: Yes all other systems are reviewed and are negative [facility] Past Medical History Medical History A-fib Anxiety CHF (congestive heart failure) CVA (cerebral vascular accident) Myocardial infarct, old Surgical History History of appendectomy Social History Social History Alcohol intake: never Patient Tobacco Use Status: Never used Tobacco Advance Directives: No Advance Directives Information Provided: No Physical Exam Vital Signs: Vital Signs: Last Vital Signs Temp 97.6 F 11/30/22 05:22 Pulse 97 11/30/22 06:24 Resp 26 H 11/30/22 06:24 BP 128/86 11/30/22 06:24 Pulse Ox 95 11/30/22 05:51 O2 Del Method Oxymask 11/30/22 05:51 O2 Flow Rate 5 11/30/22 05:51 BMI result Body Mass Index 28.8 Appearance: Alert. Oriented X3. In moderate respiratory distress Eyes: PERRLA, No Nystagmus looks pale ENT: Pharynx normal. Oral Mucosa moist Neck: Normal inspection. Neck supple. CVS: Normal heart rate and rhythm. Pulses normal. Respiratory: Moderate respiratory distress. Equal air entry bilateral, bilateral rales in posterior lungs Abdomen: Soft and nontender. Bowel sounds are present, no mass palpable, no CVA tenderness Skin: Skin warm and dry. Normal skin color. Normal skin turgor. Extremities: Trace lower extremity edema. No calf tenderness Neuro: Oriented X 3. No motor deficit. Medications Administered Discontinued Medications Generic Name Dose Route Start Last Admin Trade Name Freq PRN Reason Stop Dose Admin Furosemide 20 mg 11/30/22 05:20 11/30/22 05:39 Furosemide 20 Mg/2 Ml Vial IVPUSH 11/30/22 05:21 20 mg ONCE ONE Administration Protocol Furosemide 20 mg 11/30/22 05:51 11/30/22 05:59 Furosemide 20 Mg/2 Ml Vial IVPUSH 11/30/22 05:52 20 mg ONCE ONE Administration Protocol Lorazepam 0.5 mg 11/30/22 05:45 11/30/22 05:49 Lorazepam 2 Mg/Ml Vial IVPUSH 11/30/22 05:46 0.5 mg STAT STA Administration Nitroglycerin 0.5 inch 11/30/22 05:20 11/30/22 05:39 Nitroglycerin 2 % Oint 1 Gm Packet TRANSDERMA 11/30/22 05:21 0.5 inch ONCE ONE Administration Medical Decision Making Medical Decision Making MDM Narrative: Patient with acute shortness of breath clinically. Congestive heart failure with background of atrial fibrillation. Patient improved after oxygenation and Lasix 650 AM Patient feeling much better after 40 mg of Lasix and nitro paste blood pressure improved, heart rate also improved saturating 95% on 5 L of oxygen will admit patient for further evaluation Differential Diagnosis Differential Diagnoses: The differential diagnosis associated with the presentation includes CHF/ACS/atrial fibrillation/pleural effusion/pneumonia/COPD Admission/Observation Consideration of admission/observation: Escalation of care including admission/observation considered Consult Healthcare Provider Management of the patient was discussed with: Hospitalist Lab Data [facility] Lab Attestation statement: I reviewed the patient's lab results. 11/30/22 05:17 11/30/22 05:17 Labs: Lab Results 11/30/22 11/30/22 11/30/22 Range/Units 05:17 05:17 05:17 WBC 11.8 H (4.8-10.8) X10*3/uL RBC 5.61 (4.60-5.80) X10*6/uL Hgb 16.5 (14.0-18.0) g/dl Hct 48.9 (42.0-52.0) % MCV 87.2 (80.0-98.0) fL MCH 29.4 (27.0-33.0) pg MCHC 33.7 (31.0-36.0) g/dl RDW 13.6 (11.0-16.0) % Plt Count 173 (160-400) X10*3/uL MPV 10.7 (9.4-12.4) fL Immature Gran % (Auto) 0.6 H (0.0-0.4) % Neut % (Auto) 68.8 (45-73) % Lymph % (Auto) 23.1 (20-40) % [place] % (Auto) 6.2 (2-11) % Eos % (Auto) 0.8 (0-4) % Baso % (Auto) 0.5 (0-2) % Lymph # (Auto) 2.7 (1.2-4.9) X10*3/uL [place] # (Auto) 0.7 (0.1-1.2) X10*3/uL Eos # (Auto) 0.1 (0.0-0.4) X10*3/uL Baso # (Auto) 0.1 (0.0-0.2) X10*3/uL Abs Immat Gran (auto) 0.07 H (0.00-0.03) X10*3/uL Absolute Neuts (auto) 8.1 (2.0-8.3) x10*3/uL Absolute Nucleated RBC 0.000 (0.0-0.012) X10*3/uL Nucleated RBC % (auto) 0.0 (0.0-0.2) /100WBC PT (10.0-13.1) SEC INR (0.9-1.1) APTT (26.0-36.4) SEC Sodium 137 (135-145) mmol/L Potassium 4.4 (3.3-5.1) mmol/L Chloride 104 (96-108) mmol/L Carbon Dioxide 24 (22-29) mmol/L Anion Gap 13 (12-20) BUN 20 H (9-16) mg/dL Creatinine 1.38 (0.5-1.4) mg/dL Estim Creat Clear Calc 54.8 Estimated GFR 50 Random Glucose 183 H (60-115) mg/dL Calcium 9.3 (8.4-10.2) mg/dL Total Bilirubin 1.3 H (0.0-1.0) mg/dL Direct Bilirubin 0.4 (0.0-0.5) mg/dL AST 19 (5-37) U/L ALT 26 (0-40) U/L Alkaline Phosphatase 89 (39-117) U/L Troponin I High Sens 24.9 (<3.5-35.0) ng/L B-Natriuretic Peptide (<100) pg/mL Total Protein 6.6 (6.5-8.0) g/dL Albumin 3.9 (3.5-5.0) g/dL Lipase 27 (8-78) U/L Urine Color Urine Appearance Urine pH (5.0-9.0) Ur Specific [place] (1.005-1.025) Urine Protein (Neg-Trace) mg/dL Urine Glucose (UA) (Negative) mg/dL Urine Ketones (Negative) mg/dL Urine Blood (Negative) Urine Nitrite (Negative) Ur Leukocyte Esterase (Negative) Urine RBC (0-2) /HPF Urine WBC (0-5) /HPF Ur Squamous Epith Cells (0-2) /HPF Urine Bacteria (None Seen) Hyaline Casts (0-2) /LPF Influenza Type A (PCR) (Negative) Influenza Type B (PCR) (Negative) RSV RNA Qual (PCR) (Negative) SARS-CoV-2 RNA (RT-PCR) (Negative) 11/30/22 11/30/22 11/30/22 Range/Units 05:17 05:17 05:48 WBC (4.8-10.8) X10*3/uL RBC (4.60-5.80) X10*6/uL Hgb (14.0-18.0) g/dl Hct (42.0-52.0) % MCV (80.0-98.0) fL MCH (27.0-33.0) pg MCHC (31.0-36.0) g/dl RDW (11.0-16.0) % Plt Count (160-400) X10*3/uL MPV (9.4-12.4) fL Immature Gran % (Auto) (0.0-0.4) % Neut % (Auto) (45-73) % Lymph % (Auto) (20-40) % [place] % (Auto) (2-11) % Eos % (Auto) (0-4) % Baso % (Auto) (0-2) % Lymph # (Auto) (1.2-4.9) X10*3/uL [place] # (Auto) (0.1-1.2) X10*3/uL Eos # (Auto) (0.0-0.4) X10*3/uL Baso # (Auto) (0.0-0.2) X10*3/uL Abs Immat Gran (auto) (0.00-0.03) X10*3/uL Absolute Neuts (auto) (2.0-8.3) x10*3/uL Absolute Nucleated RBC (0.0-0.012) X10*3/uL Nucleated RBC % (auto) (0.0-0.2) /100WBC PT 29.2 H (10.0-13.1) SEC INR 2.5 H (0.9-1.1) APTT 43.4 H (26.0-36.4) SEC Sodium (135-145) mmol/L Potassium (3.3-5.1) mmol/L Chloride (96-108) mmol/L Carbon Dioxide (22-29) mmol/L Anion Gap (12-20) BUN (9-16) mg/dL Creatinine (0.5-1.4) mg/dL Estim Creat Clear Calc Estimated GFR Random Glucose (60-115) mg/dL Calcium (8.4-10.2) mg/dL Total Bilirubin (0.0-1.0) mg/dL Direct Bilirubin (0.0-0.5) mg/dL AST (5-37) U/L ALT (0-40) U/L Alkaline Phosphatase (39-117) U/L Troponin I High Sens (<3.5-35.0) ng/L B-Natriuretic Peptide 866 H (<100) pg/mL Total Protein (6.5-8.0) g/dL Albumin (3.5-5.0) g/dL Lipase (8-78) U/L Urine Color Urine Appearance Urine pH (5.0-9.0) Ur Specific [place] (1.005-1.025) Urine Protein (Neg-Trace) mg/dL Urine Glucose (UA) (Negative) mg/dL Urine Ketones (Negative) mg/dL Urine Blood (Negative) Urine Nitrite (Negative) Ur Leukocyte Esterase (Negative) Urine RBC (0-2) /HPF Urine WBC (0-5) /HPF Ur Squamous Epith Cells (0-2) /HPF Urine Bacteria (None Seen) Hyaline Casts (0-2) /LPF Influenza Type A (PCR) NEGATIVE (Negative) Influenza Type B (PCR) NEGATIVE (Negative) RSV RNA Qual (PCR) NEGATIVE (Negative) SARS-CoV-2 RNA (RT-PCR) NEGATIVE (Negative) 11/30/22 Range/Units 06:01 WBC (4.8-10.8) X10*3/uL RBC (4.60-5.80) X10*6/uL Hgb (14.0-18.0) g/dl Hct (42.0-52.0) % MCV (80.0-98.0) fL MCH (27.0-33.0) pg MCHC (31.0-36.0) g/dl RDW (11.0-16.0) % Plt Count (160-400) X10*3/uL MPV (9.4-12.4) fL Immature Gran % (Auto) (0.0-0.4) % Neut % (Auto) (45-73) % Lymph % (Auto) (20-40) % [place] % (Auto) (2-11) % Eos % (Auto) (0-4) % Baso % (Auto) (0-2) % Lymph # (Auto) (1.2-4.9) X10*3/uL [place] # (Auto) (0.1-1.2) X10*3/uL Eos # (Auto) (0.0-0.4) X10*3/uL Baso # (Auto) (0.0-0.2) X10*3/uL Abs Immat Gran (auto) (0.00-0.03) X10*3/uL Absolute Neuts (auto) (2.0-8.3) x10*3/uL Absolute Nucleated RBC (0.0-0.012) X10*3/uL Nucleated RBC % (auto) (0.0-0.2) /100WBC PT (10.0-13.1) SEC INR (0.9-1.1) APTT (26.0-36.4) SEC Sodium (135-145) mmol/L Potassium (3.3-5.1) mmol/L Chloride (96-108) mmol/L Carbon Dioxide (22-29) mmol/L Anion Gap (12-20) BUN (9-16) mg/dL Creatinine (0.5-1.4) mg/dL Estim Creat Clear Calc Estimated GFR Random Glucose (60-115) mg/dL Calcium (8.4-10.2) mg/dL Total Bilirubin (0.0-1.0) mg/dL Direct Bilirubin (0.0-0.5) mg/dL AST (5-37) U/L ALT (0-40) U/L Alkaline Phosphatase (39-117) U/L Troponin I High Sens (<3.5-35.0) ng/L B-Natriuretic Peptide (<100) pg/mL Total Protein (6.5-8.0) g/dL Albumin (3.5-5.0) g/dL Lipase (8-78) U/L Urine Color Yellow Urine Appearance Clear Urine pH 5.5 (5.0-9.0) Ur Specific [place] 1.010 (1.005-1.025) Urine Protein 100 (2+) H (Neg-Trace) mg/dL Urine Glucose (UA) Negative (Negative) mg/dL Urine Ketones Negative (Negative) mg/dL Urine Blood Trace H (Negative) Urine Nitrite Negative (Negative) Ur Leukocyte Esterase Negative (Negative) Urine RBC 0-2 (0-2) /HPF Urine WBC 0-5 (0-5) /HPF Ur Squamous Epith Cells 0-2 (0-2) /HPF Urine Bacteria None Seen (None Seen) Hyaline Casts 0-2 (0-2) /LPF Influenza Type A (PCR) (Negative) Influenza Type B (PCR) (Negative) RSV RNA Qual (PCR) (Negative) SARS-CoV-2 RNA (RT-PCR) (Negative) Independent Interpretation I performed an independent interpretation of an: EKG Interpretation: Atrial fibrillation with ventricular rate of 119 beats per minute with frequent multifocal PVCs left anterior fascicular block no acute ST-T changes no acute ischemia Radiology Impression Discussion of test interpretation with radiology: I have reviewed the radiologist's reading. Radiologist Impression: XR/XR chest 1V IMPRESSION: *? Cardiomegaly and pulmonary venous congestion without overt edema. *? Diffuse bronchial wall thickening Discharge Plan Discharge Clinical Impression: Congestive heart failure, Atrial fibrillation with rapid ventricular response Patient Disposition: Admitted As Inpatient
[2022-11-30 05:24] LABS: MANUAL DIFF FLAG NO
[2022-11-30 05:25] LABS: Basophils Absolute Auto 0.1 X10*3/uL (0.0-0.2); Basophils Percent Auto 0.5 % (0-2); Eosinophils Absolute Auto 0.1 X10*3/uL (0.0-0.4); Eosinophils Percent Auto 0.8 % (0-4); Hematocrit 48.9 % (42.0-52.0); Hemoglobin 16.5 g/dl (14.0-18.0); Imm Gran Abs Auto 0.07 X10*3/uL (0.00-0.03); Imm Gran Pct Auto 0.6 % (0.0-0.4); Lymphocytes Absolute Auto 2.7 X10*3/uL (1.2-4.9); Lymphocytes Percent Auto 23.1 % (20-40); Mean Corpuscular HGB Conc 33.7 g/dl (31.0-36.0); Mean Corpuscular Hemoglobin 29.4 pg (27.0-33.0); Mean Corpuscular Volume 87.2 fL (80.0-98.0); Mean Platelet Volume 10.7 fL (9.4-12.4); Monocytes Absolute Auto 0.7 X10*3/uL (0.1-1.2); Monocytes Percent Auto 6.2 % (2-11); Neutrophils Absolute Auto 8.1 x10*3/uL (2.0-8.3); Neutrophils Percent Auto 68.8 % (45-73); Platelet Count 173 X10*3/uL (160-400); Red Blood Count 5.61 X10*6/uL (4.60-5.80); Red Cell Distribution Width 13.6 % (11.0-16.0); White Blood Count 11.8 X10*3/uL (4.8-10.8)
[2022-11-30 05:33] LABS: INTERNATIONAL NORM RATIO 2.5 (0.9-1.1); Prothrombin Time 29.2 SEC (10.0-13.1)
[2022-11-30 05:36] LABS: Partial Thromboplastin Time 43.4 SEC (26.0-36.4)
[2022-11-30] MEDS: Nitroglycerin 2 % Oint 1 GM Packet 0.5 INCH TRANSDERMA (05:39)
[2022-11-30] MEDS: Furosemide 20 MG/2 ML VIAL IVPUSH ×2 (05:39→05:59)
[2022-11-30 05:43] LABS: Troponin-I High Sensitivity 24.9 ng/L (<3.5-35.0)
[2022-11-30 05:44] LABS: Alanine Aminotransferase 26 U/L (0-40); Albumin Level 3.9 g/dL (3.5-5.0); Alkaline Phosphatase 89 U/L (39-117); Anion Gap 13 (12-20); Aspartate Amino Transferase 19 U/L (5-37); Bilirubin Direct 0.4 mg/dL (0.0-0.5); Bilirubin Total 1.3 mg/dL (0.0-1.0); Blood Urea Nitrogen 20 mg/dL (9-16); Calcium 9.3 mg/dL (8.4-10.2); Carbon Dioxide 24 mmol/L (22-29); Chloride 104 mmol/L (96-108); Creatinine Clr Calc Pharmacy 54.8; Estimated Glomerular Filt Rate 50; Glucose Random 183 mg/dL (60-115); Lipase 27 U/L (8-78); Potassium 4.4 mmol/L (3.3-5.1); Sodium 137 mmol/L (135-145); Total Protein 6.6 g/dL (6.5-8.0)
[2022-11-30 05:45] LABS: B Type Natriuretic Peptide 866 pg/mL (<100)
[2022-11-30] MEDS: LORazepam 2 MG/ML VIAL 0.5 MG IVPUSH (05:49)
--- NOTE | 2022-11-30 06:04 | PC.NURSE ---
pt BIBA c/o sob x 2 days. Hx CHF. denies any lug issues. pt presents with increased wob, use of accessory muscles, mouth breathing, 85% RA with RRs 30s, HR 120s.. ekg done, iv line placed, blood work sent, xr chest done, resp therapist called for breathing tx. pt wearing oxymask 5L appears more comfortable O2 95%. 40mg iv lasix given, using urinal at bedside output ~250ccs urine
[2022-11-30 06:06] LABS: Appearance Urine Clear; Color Urine Yellow; Glucose Urine UA Negative (Negative); Leukocyte Esterase Urine Negative (Negative); Nitrite Urine Negative (Negative); PH 5.5 (5.0-9.0); UMIC TRIGGER UACC YES; Urine Blood Trace (Negative); Urine Ketones Negative (Negative); Urine Protein 100 (2+) mg/dL (Neg-Trace)
[2022-11-30 06:11] LABS: Bacteria Urine None Seen (None Seen); Hyaline Casts Urine 0-2 /LPF (0-2); RBC Urine 0-2 /HPF (0-2); Squamous Epithelial Cell Urine 0-2 /HPF (0-2); WBC Urine 0-5 /HPF (0-5)
--- NOTE | 2022-11-30 06:27 | P.HPHOSP_ITS ---
History of Present Illness Date of Service: 11/30/22 Chief Complaint: Dyspnea This is a 77-year-old male with pertinent history of congestive heart failure with reduced ejection fraction, AFib on anticoagulation, mixed hyperlipidemia, gastroesophageal reflux disease, generalized anxiety disorder who presents to [facility] emergency department for evaluation of dyspnea. Patient states he started having dyspnea 2 days prior to presentation. It has been progressive, worse with lying down and ambulation. Admits to orthopnea and PND. States his lung has been crackly and he felt like he was drowning. Also noticed minimal leg edema. Patient states he is compliant with his medications. Denies fever, chills, cough, chest discomfort, palpitations, abdominal pain, changes in urinary or bowel habits. In the emergency department, patient was found to be hypoxemic and placed on 5 L supplemental oxygen. Review of Systems Constitutional: Constitutional: Reports fatigue and Reports malaise Cardiovascular: Cardiovascular: Reports dyspnea on exertion, Reports orthopnea and Reports paroxysmal nocturnal dyspnea Respiratory: Respiratory: Reports dyspnea on exertion Gastrointestinal: Gastrointestinal: Reports no additional gastrointestinal complaints Genitourinary: Genitourinary: Reports no additional male genitourinary complaints Endocrine: Endocrine: Reports fatigue ON LICENSE OF [facility] Medical History A-fib Anxiety CHF (congestive heart failure) CVA (cerebral vascular accident) Myocardial infarct, old Pertinent family history: No family history of CAD Surgical History History of appendectomy Social History Alcohol intake: never Patient Tobacco Use Status: Never used Tobacco Advance Directives: No Advance Directives Information Provided: No Meds Allergies Allergy/AdvReac Type Severity Reaction Status Date / Time adenosine Allergy Severe cardiac, Verified 11/04/22 08:06 elevated BP, Stroke Gadolinium-Containing Allergy Severe red eyes Verified 11/04/22 08:06 Contrast Medi Iodinated Contrast Media Allergy Severe Seizure Verified 11/04/22 08:06 [CONTRAST, IV] carvedilol Allergy Intermediate disorientat Verified 11/04/22 08:06 ion erythromycin base AdvReac Unknown Gut Verified 11/04/22 08:06 pain , Abdominal Pain, GI upset Home Medications Medication Instructions Recorded Confirmed Last Taken Type eplerenone 25 mg tablet 25 mg PO DAILY 11/14/20 10/07/22 04/13/21 History lorazepam 0.5 mg tablet 0.5 mg PO BID 11/14/20 10/07/22 04/13/21 History omeprazole 20 mg capsule,delayed 20 mg PO DAILY 11/14/20 10/07/22 04/13/21 History release simvastatin 40 mg tablet 20 mg PO DAILY 11/14/20 10/07/22 04/13/21 History calcium carbonate 500 mg-vitamin 1 tab PO DAILY 04/14/21 10/07/22 04/13/21 History D3 3.125 mcg (125 unit) tablet coenzyme Q10 100 mg capsule 100 mg PO DAILY 04/14/21 10/07/22 04/13/21 History (CoQ-10) magnesium 1 tab PO DAILY 04/14/21 10/07/22 04/13/21 History warfarin 2.5 mg tablet mg PO 04/28/21 11/04/22 Unknown History carvedilol phosphate 40 mg 40 mg PO DAILY 11/04/22 11/04/22 Unknown History capsule,[id number] multiphase (Coreg CR) Physical Exam Vital Signs and Narrative: Vital Signs: Last Vital Signs Temp 97.6 F 11/30/22 05:22 Pulse 97 11/30/22 06:24 Resp 26 H 11/30/22 06:24 BP 128/86 11/30/22 06:24 Pulse Ox 95 11/30/22 05:51 O2 Del Method Oxymask 11/30/22 05:51 O2 Flow Rate 5 11/30/22 05:51 BMI result Body Mass Index 28.8 Elderly male lying in bed in mild distress on supplemental oxygen Neck supple, no JVD Regular rate and rhythm, S1-S2 heard Bilateral crackles without wheezing Abdomen soft nontender, no guarding, no rigidity Patient is awake, alert and oriented to self, place, time and person ; no focal motor deficit Psych: Normal mood Mild pedal edema Results Labs 11/30/22 05:17 11/30/22 05:17 Labs: Laboratory Results - last 24 hr 11/30/22 11/30/22 11/30/22 05:17 05:17 05:17 MCV 87.2 MCH 29.4 MCHC 33.7 RDW 13.6 Plt Count 173 MPV 10.7 Immature Gran % (Auto) 0.6 H Neut % (Auto) 68.8 Lymph % (Auto) 23.1 [place] % (Auto) 6.2 Eos % (Auto) 0.8 Baso % (Auto) 0.5 Lymph # (Auto) 2.7 [place] # (Auto) 0.7 Eos # (Auto) 0.1 Baso # (Auto) 0.1 Abs Immat Gran (auto) 0.07 H Absolute Neuts (auto) 8.1 Absolute Nucleated RBC 0.000 Nucleated RBC % (auto) 0.0 PT INR APTT Anion Gap 13 Estim Creat Clear Calc 54.8 Estimated GFR 50 Random Glucose 183 H Calcium 9.3 Total Bilirubin 1.3 H Direct Bilirubin 0.4 AST 19 ALT 26 Alkaline Phosphatase 89 Troponin I High Sens 24.9 B-Natriuretic Peptide Total Protein 6.6 Albumin 3.9 Lipase 27 Urine Color Urine Appearance Urine pH Ur Specific [place] Urine Protein Urine Glucose (UA) Urine Ketones Urine Blood Urine Nitrite Ur Leukocyte Esterase Urine RBC Urine WBC Ur Squamous Epith Cells Urine Bacteria Hyaline Casts 11/30/22 11/30/22 11/30/22 05:17 05:17 06:01 MCV MCH MCHC RDW Plt Count MPV Immature Gran % (Auto) Neut % (Auto) Lymph % (Auto) [place] % (Auto) Eos % (Auto) Baso % (Auto) Lymph # (Auto) [place] # (Auto) Eos # (Auto) Baso # (Auto) Abs Immat Gran (auto) Absolute Neuts (auto) Absolute Nucleated RBC Nucleated RBC % (auto) PT 29.2 H INR 2.5 H APTT 43.4 H Anion Gap Estim Creat Clear Calc Estimated GFR Random Glucose Calcium Total Bilirubin Direct Bilirubin AST ALT Alkaline Phosphatase Troponin I High Sens B-Natriuretic Peptide 866 H Total Protein Albumin Lipase Urine Color Yellow Urine Appearance Clear Urine pH 5.5 Ur Specific [place] 1.010 Urine Protein 100 (2+) H Urine Glucose (UA) Negative Urine Ketones Negative Urine Blood Trace H Urine Nitrite Negative Ur Leukocyte Esterase Negative Urine RBC 0-2 Urine WBC 0-5 Ur Squamous Epith Cells 0-2 Urine Bacteria None Seen Hyaline Casts 0-2 Imaging Radiologist's Impressions: Impressions Chest X-Ray 11/30/22 05:35 IMPRESSION: * Cardiomegaly and pulmonary venous congestion without overt edema. * Diffuse bronchial wall thickening Assessment and Plan (1) Congestive heart failure: Status: Acute Plan This is a 77-year-old male with pertinent history of congestive heart failure with reduced ejection fraction, AFib on anticoagulation, mixed hyperlipidemia, gastroesophageal reflux disease, generalized anxiety disorder who presents to the emergency department for evaluation of dyspnea. #. Acute hypoxemic respiratory failure secondary to acute decompensation of systolic heart failure: Will admit patient and continue IV diuretics. Strict I's and O's and low-salt diet. Will obtain echocardiogram. Monitor supplemental oxygen and wean as tolerated. #. [id number] diabetes mellitus with hyperglycemia: Patient states his diabetes is diet controlled. Will obtain A1c and initiate Accu-Cheks with sliding scale insulin while in the hospital #. Essential hypertension: Continue home antihypertensives #. Chronic kidney disease: Creatinine at baseline. Monitor creatinine and urine output with IV diuresis. Avoid nephrotoxins #. AFib: Rate controlled on admission. On Coumadin #. Mixed hyperlipidemia: On statin #. Gastroesophageal reflux disease: On PPI #. Generalized anxiety disorder: Continue home mood stabilizers Med rec pending DVT prophylaxis: Lovenox 40 mg daily Full code Cardiac diet Admit as inpatient and will require two night minimum hospital stay for supplemental oxygen and IV diuresis Time Spent With Patient Time: Total time managing care of this patient today ____ minutes. Quality Stroke Does the patient have a stroke diagnosis?: No VTE Prior VTE?: No VTE Risk Level:: Medical - moderate - high VTE Device Contraindication: Treatment Not Indicated VTE Drug Contraindication: N/A - Med Ordered
[2022-11-30 06:29] LABS: Influenza A PCR NEGATIVE (Negative); Influenza B PCR NEGATIVE (Negative); Resp Syncy Virus RNA Qual PCR NEGATIVE (Negative); SARS COV2 PCR INHOUSE NEGATIVE (Negative)
--- NOTE | 2022-11-30 07:00 | CA_ITS ---
Transthoracic Echo with Contrast Patient (Last, First, Middle): Russell Tiwari A Gender: Male Date of : 1945 Age: 77 Procedure Date: 11/30/2022 Procedure Type: Transthoracic [place] with [place] [facility] [place]: 182.88 cm Weight: 96.62 kg BSA: 2.19 m2 Heart Rate: 63 bpm BP: 116 / 72 mmHg Database Management Specialist: REYNALDO Referring MD: Luis A Cochran MD Chief Unit Forester: Azeem Clayton MD Symptoms: CHF Study Quality: Technically Difficult ECG Rhythm: Sinus with frequent PVCs Conclusions: - 1. Moderately dilated left ventricle with moderate to severe LV systolic dysfunction with LVEF of 30 35% with impaired relaxation filling pattern 2. At worst trivial aortic regurgitation with poorly visualized cardiac valves 3. Small to moderate pericardial effusion more loculated near the LV Findings Procedure Information Contrast agent, definity, is being given per protocol without apparent complications. Left Ventricle Moderately increased left ventricular cavity size. There is mildly increased left ventricular wall thickness. The left ventricular systolic function is moderate to severely decreased. The visually estimated ejection fraction is between 30-35%. Regional wall motion abnormalities can not be excluded due to suboptimal endocardial definition. Spectral Doppler is indicative of an impaired relaxation filling pattern. E/E prime ratio is between 8 and 15 consistent with indeterminate filling pressures. Right Ventricle The right ventricle was not well visualized. Atria The left atrium is mildly dilated. Interatrial shunt cannot be excluded. The right atrium was not well visualized. Aortic Valve The aortic valve was not well visualized. There is no aortic valve stenosis. There is no aortic valve regurgitation. Mitral Valve The mitral valve was not well visualized. There is trace mitral valve regurgitation. There is no mitral valve stenosis. Pulmonic Valve The pulmonic valve was not well visualized. Tricuspid Valve The tricuspid valve was not well visualized. Tricuspid regurgitation envelope is inadequate for calculation of right ventricular systolic pressure. Great Vessels The pulmonary artery was not well visualized. There is mild dilatation of the ascending aorta measuring 4.00 cm. Venous The inferior vena cava was not well visualized. Pericardium/Pleural There is a moderate loculated pericardial effusion overlying the left ventricle. more moderate pericardial effusion loculated near LV but appears to have small circumferential effusion Prior Study Comparison Changes noted compared to prior study dated: 09/16/2021. LV systolic function is further reduced, pericardial effusion is present Measurements 2D Linear Measurements IVSd: 1.24 0.6-0.9/0.6-1.0 cm LVIDd: 6.22 3.9-5.3/4.2-5.9 cm LVIDd Index: 2.84 2.4-3.2/2.2-3.1 cm/m2 LVIDs: 5.58 2.0-3.6 cm LVPWd: 0.64 0.7-1.1 cm LA Diam: 4.40 2.7-3.8/3.0-4.0 cm LAIDs Index: 2.01 1.5-2.3 cm/m2 LV Mass: 302.43 67-162/88-224 g LV Mass Index: 138.10 43-95/49-115 g/m2 LVOT Diam: 2.30 3.0+(-)1.3 cm 2D Systolic Function EF 4C: 24.00 >55% EF 2C: 43.00 >55% EF BiP: 34.10 >55% Mitral Valve MV Pk E: 0.59 MV PK A: 0.54 MV Decel Time: 137.00 E/A: 1.10 E'Lateral: 5.48 E'Medial: 3.38 E/E' Med: 17.40 E/E' Lat: 10.70 PHT: 40.00 MVA PHT: 5.50 Decel [place]: 4.27 Aortic Valve AoV Pk Kenneth: 0.86 AoV Pk Grad: 3.00 STACIE: 1.90 LVOT LVOT Pk Kenneth: 0.47 LVOT Mn Kenneth: 0.34 LVOT VTI: 0.09 LVOT Pk Grad: 1.00 LVOT Mn Grad: 1.00 LVOT Diam: 2.30 LVOT Area: 4.15 Diastolic Function MV Pk E: 0.59 MV Pk A: 0.54 E/A: 1.10 E'Medial: 3.38 E/E' Med: 17.40 E' Laterial: 5.48 E/E' Lat: 10.70 Right Ventricle TAPSE (mm): 15.30 TVS' Kenneth: 7.34 Great Vessels Aorta Sinus of Valsalva: 3.40 2.0-3.5 cm Ao Asc: 4.00 2.1-3.4 cm Pulmonary Valve PV Pk Kenneth: 0.62 Peak PV Grad: 2.00 Updated in Other Vendor System with Status of Final Azeem Clayton MD electronically signed on 11/30/2022 4:08:48 PM with status of Final
[2022-11-30 07:11] LABS: Estimated Average Glucose 128 mg/dL; Hemoglobin A1c % 6.1 %
[2022-11-30 07:11] LABS: Glucose, Whole Blood 157 mg/dL (60-115)
--- NOTE | 2022-11-30 08:01 | PHA.MEDREC ---
Pharmacy Consult ? Medication Reconciliation Pharmacy has completed the medication reconciliation. Med rec complete using list provided by patient. Reviewed list with patient. Warfarin dosing is 5 mg Tuesday and Tuesday. 7.5 mg other days. He takes a combination calcium/vitamin d/magnesium that we don't have in our system so 3 components entered separately for correct doses he takes at home. Pt does have his meds in his room for anything that is non-formulary.
[2022-11-30] MEDS: Furosemide 40 MG/4 ML VIAL IVPUSH (08:55)
[2022-11-30 11:54] LABS: Glucose, Whole Blood 128 mg/dL (60-115)
--- NOTE | 2022-11-30 12:37 | MHC.CM.PN ---
CM met with Patient at bedside and addressed IMM with him, providing him with the original and placing a copy on the chart. Patient lives alone in a house and uses a cane to assist with mobility. Patient receives MOWs and 3 hours/day of Homemaking services via [facility]. Home/resume said services is the goal and CM has initiated and will follow for dc planning. Patient has received NO covid vax and the PCP is Dr. Yonathan Womack.
[2022-11-30] MEDS: Acetaminophen 325 MG TABLET 650 MG PO ×2 (13:05→19:23)
--- NOTE | 2022-11-30 13:05 | PC.NURSE ---
pt. complaining of headache, requesting PRN tylenol. Pt. asked for the dosage amount and said 650 mg was too much and only wanted 325 Mg
--- NOTE | 2022-11-30 14:29 | PM.EVENT ---
Event Note Date of Service: 11/30/22 Event Note: Patient seen examined by hospitalist team this morning. Seen and examined again: Patient says that shortness of breath is improving, denies any chest pain or nausea vomiting or abdominal pain or perforation. Physical exam: Unchanged from H&P. Assessment plan: CHF exacerbation, daily weight, I/o, continue IV Lasix. Echo pending. Oxygen demand slowly improving, on 3 L saturating 94%. Patient was strongly advised to compliant with oxygen mask, also told to him that he needs to pee in the urinal in order to have strict I&O. Above management discussed with the staff in detail. Time Spent With Patient Time: Total time managing care of this patient today ____ minutes.
[2022-11-30 15:56] LABS: Glucose, Whole Blood 122 mg/dL (60-115)
[2022-11-30 18:20] LABS: Magnesium 1.7 mg/dL (1.6-2.6)
[2022-11-30] MEDS: Warfarin Sodium 5 MG TABLET PO (18:28)
[2022-11-30] MEDS: 0.9 % Sodium Chloride Flush 3 ML SYRINGE IVFLUSH ×2 (18:30→21:40)
[2022-11-30 20:23] LABS: Glucose, Whole Blood 138 mg/dL (60-115)
[2022-11-30] MEDS: Magnesium Hydrox/Alum Hydrox 30 ML ORAL.SUSP PO (21:33)
[2022-11-30] MEDS: Artificial Tears 15 ML DROPS 1 DROP EYE-BOTH (21:35)
[2022-11-30] MEDS: Melatonin 3 MG TABLET 6 MG PO (21:37)
[2022-11-30] MEDS: Atorvastatin Calcium 10 MG TABLET PO (21:39)
[2022-11-30] MEDS: LORazepam 0.5 MG TABLET PO (21:40)
--- NOTE | 2022-11-30 23:52 | PC.NURSE ---
Pt seen for 2100 med pass, RN explained each med ordered. Pt. stated carvedilol makes him sick and refused to take medication as ordered. Will continue with plan of care.
[2022-12-01 04:00] VITALS: BP 122/79; PULSE 73; RESP 18; TEMP 36.8; O2SAT 98
[2022-12-01] MEDS: Omeprazole 20 MG CAPSULE.DR PO (05:55)
[2022-12-01 06:08] LABS: MANUAL DIFF FLAG NO
[2022-12-01 06:16] LABS: Basophils Percent Auto 0.4 % (0-2); Eosinophils Absolute Auto 0.1 X10*3/uL (0.0-0.4); Eosinophils Percent Auto 1.1 % (0-4); Hematocrit 43.3 % (42.0-52.0); Hemoglobin 14.8 g/dl (14.0-18.0); Imm Gran Abs Auto 0.03 X10*3/uL (0.00-0.03); Imm Gran Pct Auto 0.4 % (0.0-0.4); Lymphocytes Absolute Auto 2.2 X10*3/uL (1.2-4.9); Lymphocytes Percent Auto 27.8 % (20-40); Mean Corpuscular HGB Conc 34.2 g/dl (31.0-36.0); Mean Corpuscular Hemoglobin 29.5 pg (27.0-33.0); Mean Corpuscular Volume 86.3 fL (80.0-98.0); Monocytes Absolute Auto 0.7 X10*3/uL (0.1-1.2); Monocytes Percent Auto 9.2 % (2-11); Neutrophils Absolute Auto 4.8 x10*3/uL (2.0-8.3); Neutrophils Percent Auto 61.1 % (45-73); Platelet Count 121 X10*3/uL (160-400); Red Blood Count 5.02 X10*6/uL (4.60-5.80); Red Cell Distribution Width 13.5 % (11.0-16.0); White Blood Count 7.9 X10*3/uL (4.8-10.8)
[2022-12-01 06:35] LABS: Anion Gap 15 (12-20); Blood Urea Nitrogen 21 mg/dL (9-16); Carbon Dioxide 24 mmol/L (22-29); Chloride 100 mmol/L (96-108); Creatinine Clr Calc Pharmacy 65.8; Estimated Glomerular Filt Rate > 60; Glucose Random 157 mg/dL (60-115); Potassium 3.7 mmol/L (3.3-5.1); Sodium 135 mmol/L (135-145)
[2022-12-01 06:40] LABS: Magnesium 1.6 mg/dL (1.6-2.6)
[2022-12-01 07:15] VITALS: BP 122/59; PULSE 80; RESP 16; TEMP 37; O2SAT 98
[2022-12-01 07:23] LABS: Glucose, Whole Blood 126 mg/dL (60-115)
[2022-12-01 09:25] LABS: INTERNATIONAL NORM RATIO 2.7 (0.9-1.1); Prothrombin Time 32.5 SEC (10.0-13.1)
[2022-12-01] MEDS: Furosemide 40 MG/4 ML VIAL IVPUSH (09:46)
[2022-12-01] MEDS: Magnesium Oxide 400 MG TABLET PO (09:48)
[2022-12-01] MEDS: 0.9 % Sodium Chloride Flush 3 ML SYRINGE IVFLUSH (09:54)
[2022-12-01] MEDS: Artificial Tears 15 ML DROPS 1 DROP EYE-BOTH (09:58)
[2022-12-01 10:57] VITALS: BP 126/74; PULSE 83; RESP 16; TEMP 36; O2SAT 96
[2022-12-01 11:08] LABS: Glucose, Whole Blood 167 mg/dL (60-115)
[2022-12-01 11:29] LABS: Glucose, Whole Blood 137 mg/dL (60-115)
--- NOTE | 2022-12-01 13:31 | HO.PM.IMPN ---
Subjective Subjective Date of Service: 12/01/22 Interval History: Shortness of breath has improved since admission. Two episodes of nonsustained VT noticed on monitor Review of Systems Denies chest pain Denies shortness of breath Denies nausea vomiting diarrhea Denies fever chills Physical Exam Vital Signs: Vital Signs: Last Vital Signs Temp 96.8 F 12/01/22 10:57 Pulse 83 12/01/22 10:57 Resp 16 12/01/22 10:57 BP 126/74 12/01/22 10:57 Pulse Ox 96 12/01/22 10:57 O2 Del Method Oxymask 12/01/22 10:57 O2 Flow Rate 3 12/01/22 10:57 BMI result Body Mass Index 28.8 Const: Other: No acute distress Resp: Other: Bilateral basilar crackles Cardio: Other: No S4; positive S1-S2; no S3 murmurs rubs or gallops GI: Other: Soft nontender nondistended normoactive bowel sounds Extrem: Other: No edema bilaterally Objective Data Active Medications Acetaminophen (Acetaminophen 325 Mg Tablet) 650 mg PO Q6H PRN PRN Reason: Pain, Mild (Pain Scale 1-3) Last Admin: 11/30/22 19:23 Dose: 325 mg Documented By: SILVIA Artificial Tears (Artificial Tears 15 Ml Drops) 1 drop EYE-BOTH BID [facility] Last Admin: 12/01/22 09:58 Dose: 1 drop Documented By: RICARDO Atorvastatin Calcium (Atorvastatin Calcium 10 Mg Tablet) 10 mg PO BEDTIME [facility] Last Admin: 11/30/22 21:39 Dose: 10 mg Documented By: MACY Calcium Carbonate (Calcium Carbonate 500 Mg Tablet) 1,000 mg PO DAILY [facility] Last Admin: 12/01/22 09:55 Dose: Not Given Documented By: RICARDO Non-Admin Reason: pt took his own med Carvedilol (Carvedilol 12.5 Mg Tablet) 12.5 mg PO BID [facility] Last Admin: 12/01/22 09:45 Dose: Not Given Documented By: RICARDO Non-Admin Reason: [id number] Furosemide (Furosemide 40 Mg/4 Ml Vial) 40 mg IVPUSH DAILY [facility]; Protocol Last Admin: 12/01/22 09:46 Dose: 40 mg Documented By: RICARDO Glucose (Glucose Gel 15 Gm Gel..Gram.) 15 gm PO Q15M PRN; Protocol PRN Reason: per Hypoglycemia Standing Ord. Dextrose (D10) 250 mls @ 750 mls/hr IV Q15M PRN; Protocol PRN Reason: per Hypoglycemia Standing Ord. Insulin Human Lispro (Insulin Lispro 100 Unit/Ml 3 Ml Vial) 0 unit SUBCUT QIDACHS [facility]; Protocol Last Admin: 12/01/22 11:53 Dose: Not Given Documented By: RICARDO Non-Admin Reason: No Insulin Coverage Lorazepam (Lorazepam 0.5 Mg Tablet) 0.5 mg PO BID [facility] Last Admin: 12/01/22 09:58 Dose: Not Given Documented By: RICARDO Non-Admin Reason: pt took his own med Magnesium Oxide (Magnesium Oxide 400 Mg Tablet) 400 mg PO DAILY [facility] Last Admin: 12/01/22 09:48 Dose: 400 mg Documented By: RICARDO Melatonin (Melatonin 3 Mg Tablet) 6 mg PO BEDTIME PRN PRN Reason: Insomnia Last Admin: 11/30/22 21:37 Dose: 6 mg Documented By: MACY Pat Own (Eplerenone (25 Mg Tablet)) 25 mg PO BEDTIME [facility] Omeprazole (Omeprazole 20 Mg Capsule.Dr) 20 mg PO DAILY@0630 [facility] Last Admin: 12/01/22 05:55 Dose: 20 mg Documented By: MACY Ondansetron HCl (Ondansetron Hcl 4 Mg/2 Ml Vial) 4 mg IVPUSH Q8H PRN PRN Reason: Nausea and Vomiting Pharmacy Consult (Consult Rx Perform Med Rec) 1 each MISCELLANE ONCE PRN PRN Reason: Consult order Sodium Chloride (0.9 % Sodium Chloride Flush 3 Ml Syringe) 3 ml IVFLUSH QSHIFT [facility] Last Admin: 12/01/22 09:54 Dose: 3 ml Documented By: RICARDO Vitamin D (Cholecalciferol (Vitamin D3) 10 Mcg Tablet) 10 mcg PO DAILY [facility] Last Admin: 12/01/22 09:55 Dose: Not Given Documented By: RICARDO Non-Admin Reason: pt took his own med Warfarin Sodium (Warfarin Sodium 5 Mg Tablet) 5 mg PO TUSA@1800 [facility] Last Admin: 11/30/22 18:28 Dose: 5 mg Documented By: SILVIA Warfarin Sodium (Warfarin Sodium 7.5 Mg Tablet) 7.5 mg PO SUMOWETHFR@1800 [facility] Labs 12/01/22 05:52 12/01/22 05:52 Labs: Laboratory Results - last 24 hr 11/30/22 11/30/22 11/30/22 05:17 15:51 20:13 MCV MCH MCHC RDW Plt Count MPV Immature Gran % (Auto) Neut % (Auto) Lymph % (Auto) [place] % (Auto) Eos % (Auto) Baso % (Auto) Lymph # (Auto) [place] # (Auto) Eos # (Auto) Baso # (Auto) Abs Immat Gran (auto) Absolute Neuts (auto) Absolute Nucleated RBC Nucleated RBC % (auto) PT INR Anion Gap Estim Creat Clear Calc Estimated GFR POC Glucose 122 H 138 H Random Glucose Calcium Magnesium 1.7 12/01/22 12/01/22 12/01/22 05:52 05:52 05:52 MCV 86.3 MCH 29.5 MCHC 34.2 RDW 13.5 Plt Count 121 L D MPV 11.0 Immature Gran % (Auto) 0.4 Neut % (Auto) 61.1 Lymph % (Auto) 27.8 [place] % (Auto) 9.2 Eos % (Auto) 1.1 Baso % (Auto) 0.4 Lymph # (Auto) 2.2 [place] # (Auto) 0.7 Eos # (Auto) 0.1 Baso # (Auto) 0.0 Abs Immat Gran (auto) 0.03 Absolute Neuts (auto) 4.8 Absolute Nucleated RBC 0.000 Nucleated RBC % (auto) 0.0 PT INR Anion Gap 15 Estim Creat Clear Calc 65.8 Estimated GFR > 60 POC Glucose Random Glucose 157 H Calcium 9.0 Magnesium 1.6 12/01/22 12/01/22 12/01/22 07:13 08:26 10:51 MCV MCH MCHC RDW Plt Count MPV Immature Gran % (Auto) Neut % (Auto) Lymph % (Auto) [place] % (Auto) Eos % (Auto) Baso % (Auto) Lymph # (Auto) [place] # (Auto) Eos # (Auto) Baso # (Auto) Abs Immat Gran (auto) Absolute Neuts (auto) Absolute Nucleated RBC Nucleated RBC % (auto) PT 32.5 H INR 2.7 H Anion Gap Estim Creat Clear Calc Estimated GFR POC Glucose 126 H 167 H Random Glucose Calcium Magnesium 12/01/22 11:26 MCV MCH MCHC RDW Plt Count MPV Immature Gran % (Auto) Neut % (Auto) Lymph % (Auto) [place] % (Auto) Eos % (Auto) Baso % (Auto) Lymph # (Auto) [place] # (Auto) Eos # (Auto) Baso # (Auto) Abs Immat Gran (auto) Absolute Neuts (auto) Absolute Nucleated RBC Nucleated RBC % (auto) PT INR Anion Gap Estim Creat Clear Calc Estimated GFR POC Glucose 137 H Random Glucose Calcium Magnesium Assessment and Plan (1) Acute exacerbation of CHF (congestive heart failure): Status: Acute (2) Diabetes type 2, controlled: Status: Acute (3) CKD (chronic kidney disease) stage 3, GFR 30-59 ml/min: Status: Acute Plan This is a 77-year-old male with pertinent history of congestive heart failure with reduced ejection fraction, AFib on anticoagulation, mixed hyperlipidemia, gastroesophageal reflux disease, generalized anxiety disorder who presents to the emergency department for evaluation of dyspnea; describes large salt intake over the past several days 1.Acute hypoxemic respiratory failure secondary to acute decompensation of systolic heart failure -will increase Lasix to 40 mg IV twice daily -2D echo noted. Cardiology consult pending -titrate O2 to maintain sats greater than equal to 92% 2.Zba-[id number]-espicjnfd diabetes mellitus -acceptable control on current therapies -adjust as indicated 3.Essential hypertension -acceptable control -continue outpatient therapies. . . Adjust as indicated 4.Chronic kidney disease -at baseline -follow renals/divalents 5.AFib -adequate rate control -continue Eliquis Lovenox 40 mg daily Full code Cardiac diet Will require ongoing hospitalization for IV diuresis and treat acute systolic heart failure Time Spent With Patient Time: Total time managing care of this patient today ____ minutes. Quality Stroke Does the patient have a stroke diagnosis?: No VTE Prior VTE?: No VTE Risk Level:: Medical - moderate - high VTE Device Contraindication: Treatment Not Indicated VTE Drug Contraindication: N/A - Med Ordered
--- NOTE | 2022-12-01 14:12 | P.CONCA_ITS ---
History of Present Illness History of Present Illness Date of Service: 12/01/22 Requesting physician: Adryan Alvarez Consult reason: congestive heart failure Chief complaint: dyspnea Narrative: I was consulted to see Russell in cardiology consultation today for decompensated congestive heart failure. He is a 77-year-old male follows with Dr. Granados for cardiomyopathy, paroxysmal atrial fibrillation, diabetes. He also has a history of chronic kidney disease and possible coronary artery disease as mentioned in his note about possible inferior infarction. Patient has never had a cardiac catheterization. His last mentioned LVEF in the notice 40-45%. Patient is on warfarin therapy for oral anticoagulation. Patient says was in his usual state of health 3 days ago was working in his garden to prepare the garden for the spring season and was raking. He then started noticing some shortness of breath with exertion. No chest discomfort. Following day further he has tear he had meal with very high salt load and then subsequently that night he started feeling short of breath and also got very short of breath laying down and subseq uently started noticing abnormal bleeding senna felt like he was drowning and felt like there was a plastic bag or is facing got severely short of breath. No chest discomfort. He therefore came to the emergency room. In emergency room was noted to be in heart failure BNP in the upper 800 range. Chest x-ray consistent with congestive heart failure. He was in diuresed and today he is feeling a lot better. He said he is back to his baseline and he wants to go home. He also wants to come of oxygen therapy. He is on epilerenone and carvedilol for neurohormonal modulation. He is in sinus rhythm but is having frequent PVCs on the monitor. He has not had atrial fibrillation or prolonged palpitation prior to these episodes. He denies any lightheadedness, syncope. Blood pressure is stable. Review of Systems Constitutional: Constitutional: Reports no additional constitutional compla ints Eyes: Eyes: Reports no additional eye complaints Cardiovascular: Cardiovascular: Denies chest pain, Denies rapid heart rate, Reports pedal edema, Denies irregular heart rhythm, Denies palpitations, Reports dyspnea, Reports dyspnea on exertion, Reports orthopnea and Reports paroxysmal nocturnal dyspnea Respiratory: Respiratory: Reports no additional respiratory complaints, Reports dyspnea and Reports dyspnea on exertion Gastrointestinal: Gastrointestinal: Reports no additional gastrointestinal complaints Genitourinary: Genitourinary: Reports no additional male genitourinary complaints Musculoskeletal: Musculoskeletal: Reports no additional musculoskeletal complaints Neurologic: Reports system reviewed and no additional complaints, except as documented Psychiatric: Psychiatric: Reports no additional psychiatric complaints Endocrine: Endocrine: Denies palpitations PMF Past Medical History Medical History A-fib Anxiety CHF (congestive heart failure) CVA (cerebral vascular accident) Myocardial infarct, old Surgical History Surgical History History of appendectomy Social History Social History Household Members: None Housing: House Do you presently have visiting nurse or other home services: Yes Alcohol intake: never Patient Tobacco Use Status: Never used Tobacco Smoked in Last 30 Days: No Use of substances other than those prescribed or required for medical reasons: No Currently Displaying Signs/Symptoms of Drug Intoxication Withdrawal: No Have you been hit, kicked, punched, or otherwise hurt by someone within the past year? If so, by whom?: No Do you feel safe in your current relationship?: No Current Relationship Is there a partner from a previous relationship who is making you feel unsafe now?: No Are you made to feel afraid or neglected: No Advance Directives: No Advance Directives Information Provided: No Do you have thoughts of harming others: None Do you have a plan to hurt others: No Plan Recently lost weight without trying: Unsure Poor oral hygiene: Yes service: Yes Current occupational status: disabled Meds Allergies Allergy/AdvReac Type Severity Reaction Status Date / Time adenosine Allergy Severe cardiac, Verified 11/04/22 08:06 elevated BP, Stroke Gadolinium-Containing Allergy Severe red eyes Verified 11/04/22 08:06 Contrast Medi Iodinated Contrast Media Allergy Severe Seizure Verified 11/04/22 08:06 [CONTRAST, IV] carvedilol Allergy Intermediate disorientat Verified 11/04/22 08:06 ion erythromycin base AdvReac Unknown Gut Verified 11/04/22 08:06 pain , Abdominal Pain, GI upset Active Medications: Current Medications Acetaminophen (Acetaminophen 325 Mg Tablet) 650 mg PO Q6H PRN PRN Reason: Pain, Mild (Pain Scale 1-3) Last Admin: 11/30/22 19:23 Dose: 325 mg Artificial Tears (Artificial Tears 15 Ml Drops) 1 drop EYE-BOTH BID [facility] Last Admin: 12/01/22 09:58 Dose: 1 drop Atorvastatin Calcium (Atorvastatin Calcium 10 Mg Tablet) 10 mg PO BEDTIME [facility] Last Admin: 11/30/22 21:39 Dose: 10 mg Calcium Carbonate (Calcium Carbonate 500 Mg Tablet) 1,000 mg PO DAILY [facility] Last Admin: 12/01/22 09:55 Dose: Not Given Carvedilol (Carvedilol 12.5 Mg Tablet) 12.5 mg PO BID [facility] Last Admin: 12/01/22 09:45 Dose: Not Given Furosemide (Furosemide 40 Mg/4 Ml Vial) 40 mg IVPUSH BID@0900,1800 [facility]; Protocol Glucose (Glucose Gel 15 Gm Gel..Gram.) 15 gm PO Q15M PRN; Protocol PRN Reason: per Hypoglycemia Standing Ord. Dextrose (D10) 250 mls @ 750 mls/hr IV Q15M PRN; Protocol PRN Reason: per Hypoglycemia Standing Ord. Insulin Human Lispro (Insulin Lispro 100 Unit/Ml 3 Ml Vial) [facility]; Protocol Last Admin: 12/01/22 11:53 Dose: Not Given Lorazepam (Lorazepam 0.5 Mg Tablet) 0.5 mg PO BID [facility] Last Admin: 12/01/22 09:58 Dose: Not Given Magnesium Oxide (Magnesium Oxide 400 Mg Tablet) 400 mg PO DAILY [facility] Last Admin: 12/01/22 09:48 Dose: 400 mg Melatonin (Melatonin 3 Mg Tablet) 6 mg PO BEDTIME PRN PRN Reason: Insomnia Last Admin: 11/30/22 21:37 Dose: 6 mg Pat Own (Eplerenone (25 Mg Tablet)) 25 mg PO BEDTIME [facility] Omeprazole (Omeprazole 20 Mg Capsule.Dr) 20 mg PO DAILY@0630 [facility] Last Admin: 12/01/22 05:55 Dose: 20 mg Ondansetron HCl (Ondansetron Hcl 4 Mg/2 Ml Vial) 4 mg IVPUSH Q8H PRN PRN Reason: Nausea and Vomiting Pharmacy Consult (Consult Rx Perform Med Rec) 1 each MISCELLANE ONCE PRN PRN Reason: Consult order Sodium Chloride (0.9 % Sodium Chloride Flush 3 Ml Syringe) [facility] Last Admin: 12/01/22 09:54 Dose: 3 ml Vitamin D (Cholecalciferol (Vitamin D3) 10 Mcg Tablet) 10 mcg PO DAILY [facility] Last Admin: 12/01/22 09:55 Dose: Not Given Warfarin Sodium (Warfarin Sodium 5 Mg Tablet) 5 mg PO TUSA@1800 [facility] Last Admin: 11/30/22 18:28 Dose: 5 mg Warfarin Sodium (Warfarin Sodium 7.5 Mg Tablet) 7.5 mg PO SUMOWETHFR@1800 [facility] Home Medications Medication Instructions Recorded Confirmed Last Taken Type eplerenone 25 mg tablet 25 mg PO DAILY 11/14/20 11/30/22 11/29/22 History lorazepam 0.5 mg tablet 0.5 mg PO BID 11/14/20 11/30/22 11/29/22 History omeprazole 20 mg capsule,delayed 20 mg PO DAILY@0630 11/14/20 11/30/22 11/29/22 History release coenzyme Q10 100 mg capsule 100 mg PO DAILY 04/14/21 11/30/22 11/29/22 History (CoQ-10) carvedilol phosphate 40 mg 40 mg PO DAILY 11/04/22 11/30/22 11/29/22 History capsule,[id number] multiphase (Coreg CR) calcium carbonate 500 mg calcium 1,000 mg PO DAILY 11/30/22 11/30/22 11/29/22 History (1,250 mg) tablet carboxymethylcellulose sodium 0.5 1 drp ophthalmic (eye) BID 11/30/22 11/30/22 11/29/22 History % eye drops (Refresh Tears) cholecalciferol (vitamin D3) 10 10 mcg PO DAILY 11/30/22 11/30/22 11/29/22 History mcg (400 unit) tablet (Vitamin D3) magnesium 250 mg tablet 500 mg PO DAILY 11/30/22 11/30/22 11/29/22 History simvastatin 20 mg tablet 20 mg PO BEDTIME 11/30/22 11/30/22 11/29/22 History warfarin 2.5 mg tablet 5 mg PO TUSA@1800 11/30/22 11/30/22 11/27/22 History warfarin 2.5 mg tablet 7.5 mg PO SUMOWETHFR@1800 11/30/22 11/30/22 11/29/22 History Physical Exam Vital Signs: Vital Signs: Last Vital Signs Temp 96.8 F 12/01/22 10:57 Pulse 83 12/01/22 10:57 Resp 16 12/01/22 10:57 BP 126/74 12/01/22 10:57 Pulse Ox 96 12/01/22 10:57 O2 Del Method Oxymask 12/01/22 10:57 O2 Flow Rate 3 12/01/22 10:57 BMI result Body Mass Index 28.8 Const: General: cooperative, comfortable, no acute distress, alert, awake and anxious Nutritional Appearance: average body habitus Orientation/consciousness: patient oriented x3 Limitations: no limitations HEENT: Head: Yes normocephalic and Yes atraumatic Neck: Neck: Yes trachea midline, Yes supple and Yes no JVD Resp: Effort & Inspection: normal respiratory effort Auscultation: clear to auscultation bilaterally Cardio: Jugular venous distension: no JVD Palpation: abnormal PMI displaced PMI Rate: regular rate Rhythm: abnormal rhythm with ectopic beats Heart sounds: S1 normal heart sound present, S2 normal heart sound present, no click, no gallops, no murmurs and no rubs GI: Auscultation: normal bowel sounds Skin: General skin exam: no rashes or lesions noted Neuro: General: patient oriented x3 and no focal motor deficits Extrem: General: Yes no clubbing, cyanosis or edema Objective Labs and Meds 12/01/22 05:52 12/01/22 05:52 Lab results: Laboratory Results - last 24 hr 11/30/22 11/30/22 11/30/22 05:17 15:51 20:13 WBC RBC Hgb Hct MCV MCH MCHC RDW Plt Count MPV Immature Gran % (Auto) Neut % (Auto) Lymph % (Auto) [place] % (Auto) Eos % (Auto) Baso % (Auto) Lymph # (Auto) [place] # (Auto) Eos # (Auto) Baso # (Auto) Abs Immat Gran (auto) Absolute Neuts (auto) Absolute Nucleated RBC Nucleated RBC % (auto) PT INR Sodium Potassium Chloride Carbon Dioxide Anion Gap BUN Creatinine Estim Creat Clear Calc Estimated GFR POC Glucose 122 H 138 H Random Glucose Calcium Magnesium 1.7 12/01/22 12/01/22 12/01/22 05:52 05:52 05:52 WBC 7.9 RBC 5.02 Hgb 14.8 Hct 43.3 MCV 86.3 MCH 29.5 MCHC 34.2 RDW 13.5 Plt Count 121 L D MPV 11.0 Immature Gran % (Auto) 0.4 Neut % (Auto) 61.1 Lymph % (Auto) 27.8 [place] % (Auto) 9.2 Eos % (Auto) 1.1 Baso % (Auto) 0.4 Lymph # (Auto) 2.2 [place] # (Auto) 0.7 Eos # (Auto) 0.1 Baso # (Auto) 0.0 Abs Immat Gran (auto) 0.03 Absolute Neuts (auto) 4.8 Absolute Nucleated RBC 0.000 Nucleated RBC % (auto) 0.0 PT INR Sodium 135 Potassium 3.7 Chloride 100 Carbon Dioxide 24 Anion Gap 15 BUN 21 H Creatinine 1.15 Estim Creat Clear Calc 65.8 Estimated GFR > 60 POC Glucose Random Glucose 157 H Calcium 9.0 Magnesium 1.6 12/01/22 12/01/22 12/01/22 07:13 08:26 10:51 WBC RBC Hgb Hct MCV MCH MCHC RDW Plt Count MPV Immature Gran % (Auto) Neut % (Auto) Lymph % (Auto) [place] % (Auto) Eos % (Auto) Baso % (Auto) Lymph # (Auto) [place] # (Auto) Eos # (Auto) Baso # (Auto) Abs Immat Gran (auto) Absolute Neuts (auto) Absolute Nucleated RBC Nucleated RBC % (auto) PT 32.5 H INR 2.7 H Sodium Potassium Chloride Carbon Dioxide Anion Gap BUN Creatinine Estim Creat Clear Calc Estimated GFR POC Glucose 126 H 167 H Random Glucose Calcium Magnesium 12/01/22 11:26 WBC RBC Hgb Hct MCV MCH MCHC RDW Plt Count MPV Immature Gran % (Auto) Neut % (Auto) Lymph % (Auto) [place] % (Auto) Eos % (Auto) Baso % (Auto) Lymph # (Auto) [place] # (Auto) Eos # (Auto) Baso # (Auto) Abs Immat Gran (auto) Absolute Neuts (auto) Absolute Nucleated RBC Nucleated RBC % (auto) PT INR Sodium Potassium Chloride Carbon Dioxide Anion Gap BUN Creatinine Estim Creat Clear Calc Estimated GFR POC Glucose 137 H Random Glucose Calcium Magnesium Assessment and Plan (1) Acute exacerbation of CHF (congestive heart failure): Status: Acute Acute onset decompensated congestive heart failure after exertional activity and salt load. There is further worsening of his LV systolic function. The nature of triggering raises the possibility of significant underlying coronary artery disease. Given his probable prior infarct history, she requires further workup with cardiac catheterization, which can be done as outpatient. I advised him to discuss this with his frozen foods manager. He is afraid of his IVP dye allergy, said that this could be treated/mitigated with help of prednisone/Benadryl/Pepcid prior to the procedure. He is on carvedilol and eplerenone for neurohormonal modulation, however should also be on Entresto therapy. Will start him on 26-24 mg b.i.d.. Heart failure education to be provided at home. Avoidance of salt loading. Eventually can consider addition of Jardiance 10 mg to his regimen. Would discharge him on 20 mg of Lasix with increase does if required. Daily weight monitoring avoidance of salt loading as outpatient. Advise blood pre ssure monitoring. Ischemic workup strongly encouraged. Continue rhythm control approach. (2) Paroxysmal atrial fibrillation: Status: Acute Paroxysmal atrial fibrillation without any obvious clinical recurrence at this point time. Continue carvedilol therapy. No need for antiarrhythmic drug therapy at this point time. Will do better with rhythm control approach. Continue full oral anticoagulation, currently on warfarin therapy. Being [facility]. She was interested in switching to direct oral anticoagulation therapy. If there are no other medical issues at current time, from cardiology perspective patient can be discharged home and follow-up with his frozen foods manager in 7-10 days. Thank you for allowing me to partake in his care Time Spent With Patient Time: Total time managing care of this patient today ____ minutes. Procedures Date of Service Date of Service: 12/01/22
--- NOTE | 2022-12-01 14:52 | P.DS_ITS ---
DS: Providers Provider Date of Service: 12/01/22 Date of admission: 11/30/22 06:26 Date of discharge: 12/01/22 Primary care physician: Yonathan Womack MD Consults: 12/01/22 12:45 Consult to Cardiology Routine Consulting Provider[place] [facility] Reason for consultation: Afib DS: Diagnosis Discharge Diagnosis (1) Acute exacerbation of CHF (congestive heart failure): Status: Acute (2) Paroxysmal atrial fibrillation: Status: Acute DS: Summary Hospital Course Hospital Course: 77-year-old male with pertinent history of congestive heart failure with reduced ejection fraction, AFib on anticoagulation, mixed hyperlipidemia, gastroesophageal reflux disease, generalized anxiety disorder who presents to the emergency department for evaluation of dyspnea.? Patient states he started having dyspnea 2 days prior to presentation.? It has been progressive, worse with lying down and ambulation.? Admits to orthopnea and PND.? States his lung has been crackly and he felt like he was drowning.? Also noticed minimal leg edema.? Patient states he is compliant with his medications.? Denies fever, chills, cough, chest discomfort, palpitations, abdominal pain, changes in urinary or bowel habits. When further queried, patient admits to high salt intake over the 48 hours prior to admission Hospital course Patient was admitted to telemetry and a 2D echo was obtained which showed a stable ejection fraction at 30-35%. He was seen in consultation by Cardiology who recommended the addition of Entresto 24-26 b.i.d.. At this point time cardiology feels patient is medically acceptable for discharge can follow-up with his own PCP. He is instructed to avoid salt intake Time Spent with Patient Time attestation: Total time managing care of this patient today ____ minutes. Discharge coordination time: Greater than 30 minutes Quality: Safe Use of Opioids Does Pt have an Active Cancer Diagnosis on the Problem List?: No Quality: Stroke Does the patient have a stroke diagnosis?: No Physical Exam Vital Signs: Vital Signs: Last Vital Signs Temp 96.8 F 12/01/22 10:57 Pulse 83 12/01/22 10:57 Resp 16 12/01/22 10:57 BP 126/74 12/01/22 10:57 Pulse Ox 96 12/01/22 10:57 O2 Del Method Oxymask 12/01/22 10:57 O2 Flow Rate 3 12/01/22 10:57 BMI result Body Mass Index 28.8 Const: Other: No acute distress Resp: Other: Bilateral basilar crackles Cardio: Other: No S4; positive S1-S2; no S3 murmurs rubs or gallops GI: Other: Soft nontender nondistended normoactive bowel sounds Extrem: Other: No edema bilaterally DS: Data Data Completed and Pending Labs on day of discharge: Laboratory Results - last 24 hr 11/30/22 11/30/22 11/30/22 05:17 15:51 20:13 WBC RBC Hgb Hct MCV MCH MCHC RDW Plt Count MPV Immature Gran % (Auto) Neut % (Auto) Lymph % (Auto) Hendricks % (Auto) Eos % (Auto) Baso % (Auto) Lymph # (Auto) Hendricks # (Auto) Eos # (Auto) Baso # (Auto) Abs Immat Gran (auto) Absolute Neuts (auto) Absolute Nucleated RBC Nucleated RBC % (auto) PT INR Sodium Potassium Chloride Carbon Dioxide Anion Gap BUN Creatinine Estim Creat Clear Calc Estimated GFR POC Glucose 122 H 138 H Random Glucose Calcium Magnesium 1.7 12/01/22 12/01/22 12/01/22 05:52 05:52 05:52 WBC 7.9 RBC 5.02 Hgb 14.8 Hct 43.3 MCV 86.3 MCH 29.5 MCHC 34.2 RDW 13.5 Plt Count 121 L D MPV 11.0 Immature Gran % (Auto) 0.4 Neut % (Auto) 61.1 Lymph % (Auto) 27.8 Hendricks % (Auto) 9.2 Eos % (Auto) 1.1 Baso % (Auto) 0.4 Lymph # (Auto) 2.2 Hendricks # (Auto) 0.7 Eos # (Auto) 0.1 Baso # (Auto) 0.0 Abs Immat Gran (auto) 0.03 Absolute Neuts (auto) 4.8 Absolute Nucleated RBC 0.000 Nucleated RBC % (auto) 0.0 PT INR Sodium 135 Potassium 3.7 Chloride 100 Carbon Dioxide 24 Anion Gap 15 BUN 21 H Creatinine 1.15 Estim Creat Clear Calc 65.8 Estimated GFR > 60 POC Glucose Random Glucose 157 H Calcium 9.0 Magnesium 1.6 12/01/22 12/01/22 12/01/22 07:13 08:26 10:51 WBC RBC Hgb Hct MCV MCH MCHC RDW Plt Count MPV Immature Gran % (Auto) Neut % (Auto) Lymph % (Auto) Hendricks % (Auto) Eos % (Auto) Baso % (Auto) Lymph # (Auto) Hendricks # (Auto) Eos # (Auto) Baso # (Auto) Abs Immat Gran (auto) Absolute Neuts (auto) Absolute Nucleated RBC Nucleated RBC % (auto) PT 32.5 H INR 2.7 H Sodium Potassium Chloride Carbon Dioxide Anion Gap BUN Creatinine Estim Creat Clear Calc Estimated GFR POC Glucose 126 H 167 H Random Glucose Calcium Magnesium 12/01/22 11:26 WBC RBC Hgb Hct MCV MCH MCHC RDW Plt Count MPV Immature Gran % (Auto) Neut % (Auto) Lymph % (Auto) Hendricks % (Auto) Eos % (Auto) Baso % (Auto) Lymph # (Auto) Hendricks # (Auto) Eos # (Auto) Baso # (Auto) Abs Immat Gran (auto) Absolute Neuts (auto) Absolute Nucleated RBC Nucleated RBC % (auto) PT INR Sodium Potassium Chloride Carbon Dioxide Anion Gap BUN Creatinine Estim Creat Clear Calc Estimated GFR POC Glucose 137 H Random Glucose Calcium Magnesium Discharge Plan Discharge Anticipated Discharge Date/Time: 12/01/22 14:42 Patient Disposition: Home, Self-Care Discharge Diagnosis: Acute exacerbation systolic heart failure Referrals: Yonathan Womack MD [Primary Care Provider] - 1 Week Discharge Medications: New Entresto 24-26 mg tablet 1 tab PO BID Qty: 30 0RF Entresto 24-26 mg tablet 1 tab PO BID Qty: 60 0RF Continued coenzyme Q10 [CoQ-10] 100 mg Capsule 100 mg PO DAILY calcium carbonate 500 mg calcium (1,250 mg) Tablet 1,000 mg PO DAILY magnesium 250 mg Tablet 500 mg PO DAILY cholecalciferol (vitamin D3) [Vitamin D3] 10 mcg (400 unit) Tablet 10 mcg PO DAILY warfarin 2.5 mg Tablet 5 mg PO TUSA@1800 simvastatin 20 mg Tablet 20 mg PO BEDTIME warfarin 2.5 mg Tablet 7.5 mg PO SUMOWETHFR@1800 carboxymethylcellulose sodium [Refresh Tears] 0.5 % Drops 1 drp OPHTHALMIC (EYE) BID lorazepam 0.5 mg tablet 0.5 mg PO BID omeprazole 20 mg capsule,delayed release(DR/EC) 20 mg PO DAILY@0630 eplerenone 25 mg tablet 25 mg PO DAILY carvedilol phosphate [Coreg CR] 40 mg capsule, ER multiphase 24 hr 40 mg PO DAILY Rx Instructions: must administer with a meal/food Discharge Orders: Discharge Order (Routine); Ordered 12/01/22 Ordered By: Adryan Alvarez Diet: Advance to usual diet Activity on Discharge: As tolerated Stand Alone Forms: Patient Portal Discharge page Care Plan Goals: Entresto 24/ has been added to your daily regimen twice daily. Follow-up with the gear hobber in 1-2 weeks Health Concerns: Continue all outpatient therapies as prior to hospitalization Plan of Treatment: Avoid all high salt foods Assessment: See discharge summary
--- NOTE | 2022-12-01 14:59 | MHC.CM.PN ---
Patient has been medically cleared for dc to home today, self care. Last IMM addressed yesterday.
== END 2022-12-01 15:55 | disposition home or self-care (01) | DRG 291 ==
LOC: HO.ED 05:55 → HO.EDOVER 06:52 → HO.IMC 07:22
PROVIDERS: Internal Medicine; Admitting Provider Student in an Organized Health Care Education/Training Program; Emergency Provider Internal Medicine; PCP Internal Medicine; Visit Provider Hospitalist
DX: I13.0 Hypertensive heart and chronic kidney disease with heart failure and stage 1 through stage 4 chronic kidney disease, or unspecified chronic kidney disease (principal); I50.23 Acute on chronic systolic (congestive) heart failure; J96.01 Acute respiratory failure with hypoxia; I47.20 Ventricular tachycardia, unspecified; F41.9 Anxiety disorder, unspecified; E78.2 Mixed hyperlipidemia; E11.65 Type 2 diabetes mellitus with hyperglycemia; K21.9 Gastro-esophageal reflux disease without esophagitis; F41.1 Generalized anxiety disorder; I48.0 Paroxysmal atrial fibrillation; E11.22 Type 2 diabetes mellitus with diabetic chronic kidney disease; N18.30 Chronic kidney disease, stage 3 unspecified; Z20.822 Contact with and (suspected) exposure to COVID-19; I25.2 Old myocardial infarction; Z86.73 Personal history of transient ischemic attack (TIA), and cerebral infarction without residual deficits; Z91.041 Radiographic dye allergy status; Z88.8 Allergy status to other drugs, medicaments and biological substances; Z79.01 Long term (current) use of anticoagulants; Z79.899 Other long term (current) drug therapy
CPT/HCPCS: 0241U; 36415; 71045; 80048; 80076; 81001; 82947; 83036; 83690; 83735; 83880; 84484; 85025; 85610; 85730; 93005; 93306; 96374; 96375; 96376; 99222; 99285; J1940; J2060; Q9957

== ENCOUNTER → 2022-12-02 08:41 | Outpatient (BNVA) | payer MEDICARE, MEDICAID, SELFPAY | PROVIDERS: PCP Internal Medicine; Visit Provider Internal Medicine ==

== ENCOUNTER → 2023-01-06 08:13 | Outpatient (BNVA) | payer MEDICARE, MEDICAID, SELFPAY | PROVIDERS: PCP Internal Medicine; Visit Provider Internal Medicine | DX: I48.20 Chronic atrial fibrillation, unspecified (principal); Z79.01 Long term (current) use of anticoagulants; Z51.81 Encounter for therapeutic drug level monitoring | CPT/HCPCS: 85610; 99212 ==

== ENCOUNTER 2023-01-08 22:32 | Emergency (ER) | payer MEDICARE, MEDICAID, SELFPAY ==
[2023-01-08 22:37] VITALS: BP 142/90; PULSE 82; O2SAT 97
[2023-01-08 22:42] VITALS: BP 118/79; PULSE 106; RESP 18; TEMP 36.5; BMI 30.4
[2023-01-08 22:46] VITALS: BP 118/79; PULSE 106; RESP 19; TEMP 36.5
--- NOTE | 2023-01-08 22:50 | ECG_ITS ---
Test Reason : ABD Blood Pressure : / mmHG Vent. Rate : 101 BPM Atrial Rate : 101 BPM P-R Int : 222 ms QRS Dur : 106 ms QT Int : 322 ms P-R-T Axes : 001 -50 053 degrees QTc Int : 417 ms Sinus tachycardia with 1st degree A-V block with frequent , and consecutive Premature ventricular complexes Left anterior fascicular block Cannot rule out Anterior infarct , age undetermined Abnormal ECG When compared with ECG of 30-NOV-2022 05:09, No significant changes seen Referred By: Martín Dunlap Electronically Signed By:Tyler Mattson
[2023-01-08 23:04] LABS: MANUAL DIFF FLAG NO
--- NOTE | 2023-01-08 23:04 | ED.NAVMDI ---
HPI - Nausea/Vomiting/Diarrhea General Chief complaint: Nausea/Vomiting/Diarrhea Stated complaint: N,V,D Time Seen by Provider: 01/08/23 22:39 Source: patient Mode of arrival: EMS Limitations: no limitations History of Present Illness HPI Narrative: Patient comes in the emergency room complaining of nausea vomiting and diarrhea for 5 hours. Patient states that a few hours prior to the 1st episode of vomiting and diarrhea, he ate fish. Patient complaining of abdominal cramping, no chest pain shortness of breath, no fever. Related Data Home Medications Medication Instructions Recorded Confirmed eplerenone 25 mg tablet 25 mg PO DAILY 11/14/20 01/06/23 lorazepam 0.5 mg tablet 0.5 mg PO BID 11/14/20 01/06/23 omeprazole 20 mg capsule,delayed 20 mg PO DAILY@0630 11/14/20 01/06/23 release coenzyme Q10 100 mg capsule 100 mg PO DAILY 04/14/21 01/06/23 (CoQ-10) carvedilol phosphate 40 mg 40 mg PO DAILY 11/04/22 01/06/23 capsule,[id number] multiphase (Coreg CR) calcium carbonate 500 mg calcium 1,000 mg PO DAILY 11/30/22 01/06/23 (1,250 mg) tablet carboxymethylcellulose sodium 0.5 1 drp ophthalmic (eye) BID 11/30/22 01/06/23 % eye drops (Refresh Tears) cholecalciferol (vitamin D3) 10 10 mcg PO DAILY 11/30/22 01/06/23 mcg (400 unit) tablet (Vitamin D3) magnesium 250 mg tablet 500 mg PO DAILY 11/30/22 01/06/23 simvastatin 20 mg tablet 20 mg PO BEDTIME 11/30/22 01/06/23 warfarin 2.5 mg tablet 2.5 mg PO .COMPLEX 12/02/22 01/06/23 furosemide 20 mg tablet 20 mg PO DAILY 01/06/23 01/06/23 Previous Rx's Medication Instructions Recorded sacubitril 24 mg-valsartan 26 mg 1 tab PO BID #60 tabs 12/01/22 tablet (Entresto) loperamide 2 mg tablet 2 mg PO Q4H PRN loose stool #14 01/09/23 tabs ondansetron HCl 4 mg tablet 4 mg PO Q6H PRN nausea and 01/09/23 vomiting #14 tabs Allergies Allergy/AdvReac Type Severity Reaction Status Date / Time adenosine Allergy Severe cardiac, Verified 01/06/23 08:21 elevated BP, Stroke Gadolinium-Containing Allergy Severe red eyes Verified 01/06/23 08:21 Contrast Medi Iodinated Contrast Media Allergy Severe Seizure Verified 01/06/23 08:21 [CONTRAST, IV] carvedilol Allergy Intermediate disorientat Verified 01/06/23 08:21 ion erythromycin base AdvReac Unknown Gut Verified 01/06/23 08:21 pain , Abdominal Pain, GI upset Review of Systems Review of Systems: Constitutional : No Weight loss, No Fever, No Chills, No Night Sweats, No Fatigue, No Malaise ENT/Mouth : No Hearing loss, No Ear Pain, No Nasal Congestion, No Sinus Pain, No Hoarseness, No sore throat, No Rhinorrhea, No Swallowing Difficulty Eyes: No Eye Pain, No Swelling, No Redness, No Foreign Body, No Discharge, No Vision Changes Cardiovascular : No Chest Pain, No SOB, No Dyspnea on Exertion, No Orthopnea, No Edema, No Palpitations Respiratory : No Cough, No Sputum, No Wheezing, No Smoke Exposure, No Dyspnea Gastrointestinal : I of nausea vomiting and diarrhea, No Constipation, complaining of abdominal cramping, No Hematochezia, No Melena Genitourinary : no irregular bleeding, No Dysuria, No Urinary Frequency, No Hematuria, No Urinary Incontinence, No Urgency, No Flank Pain, No Urinary Flow Changes, No Hesitancy Musculoskeletal : No joint pain, No Myalgias, No Joint Swelling Skin : No Skin Lesions, No rash Neuro : No Weakness, No Numbness, No Paresthesias, No Loss of Consciousness, No Dizziness, No Headache Psych : No Anxiety/Panic, No Depression, No SI/HI/AH/VH, No Social Issues, Heme/Lymph: No Bruising, No Bleeding,No Lymphadenopathy Endocrine : No Polyuria, No Polydipsia, No Temperature Intolerance [facility] Past Medical History Medical History A-fib Anxiety CHF (congestive heart failure) CVA (cerebral vascular accident) Myocardial infarct, old Surgical History History of appendectomy Social History Social History Household Members: None Housing: House Do you presently have visiting nurse or other home services: Yes Alcohol intake: never Patient Tobacco Use Status: Never used Tobacco Smoked in Last 30 Days: No Use of substances other than those prescribed or required for medical reasons: No Advance Directives: No Advance Directives Information Provided: No service: Yes Current occupational status: disabled Physical Exam Vital Signs: Vital Signs: Last Vital Signs Temp 97.8 F 01/09/23 02:00 Pulse 81 01/09/23 02:00 Resp 20 01/09/23 02:00 BP 118/62 01/09/23 02:00 Pulse Ox 95 01/09/23 02:00 O2 Del Method Room Air 01/09/23 02:00 BMI result Body Mass Index 30.4 Const: Other: Appearance: Alert. Oriented X3. No acute distress. Eyes: Pupils equal, round and reactive to light. ENT: Pharynx normal. Neck: Normal inspection. Neck supple. No lymph nodes noted. No crepitus CVS: Normal heart rate and rhythm. Pulses normal. Normal S1 and S2 Respiratory: No respiratory distress. Breath sounds normal. No Wheezing. No rales Abdomen: Soft and nontender. No rigidity. No distention. Skin: Skin warm and dry. Normal skin color. Normal skin turgor. Extremities: No lower extremity edema. No Lacerations. No Rash Neuro: Oriented X 3. No motor deficit. No sensory deficit. Moving all extremities. No slurred speech. CN 2 through 12 grossly intact Psych: calm, cooperative, normal affect Course Course Course Narrative: -patient's labs pending -patient receiving IV fluids, loperamide and Zofran. Medications Administered Discontinued Medications Generic Name Dose Route Start Last Admin Trade Name Freq PRN Reason Stop Dose Admin Lactated Ringer's 1,000 mls @ 500 mls/hr 01/08/23 23:00 01/09/23 01:24 Lr IV 01/09/23 00:59 Infused .Q2H TOMI Infusion Loperamide HCl 4 mg 01/08/23 22:57 01/08/23 23:08 Loperamide Hcl 2 Mg Capsule PO 01/08/23 22:58 4 mg ONCE ONE Administration Ondansetron HCl 4 mg 01/08/23 22:57 01/08/23 23:08 Ondansetron Hcl 4 Mg/2 Ml Vial IVPUSH 01/08/23 22:58 4 mg ONCE ONE Administration Medical Decision Making Medical Decision Making [facility] Narrative: -patient's white blood cell count 11.7, reactive leukocytosis -patient's labs at baseline, urinalysis negative for UTI. -patient's symptoms likely secondary to gastroenteritis -patient received IV fluids, Zofran and loperamide, patient has not had any episodes of vomiting or diarrhea in the emergency room. Lab Data 01/08/23 22:58 01/08/23 22:58 Labs: Lab Results 01/08/23 01/08/23 01/08/23 Range/Units 22:58 22:58 22:58 WBC 11.7 H (4.8-10.8) X10*3/uL RBC 5.56 (4.60-5.80) X10*6/uL Hgb 16.4 (14.0-18.0) g/dl Hct 47.7 (42.0-52.0) % MCV 85.8 (80.0-98.0) fL MCH 29.5 (27.0-33.0) pg MCHC 34.4 (31.0-36.0) g/dl RDW 13.5 (11.0-16.0) % Plt Count 153 L D (160-400) X10*3/uL MPV 10.9 (9.4-12.4) fL Immature Gran % (Auto) 0.3 (0.0-0.4) % Neut % (Auto) 78.2 H (45-73) % Lymph % (Auto) 16.0 L (20-40) % Powell % (Auto) 4.9 (2-11) % Eos % (Auto) 0.3 (0-4) % Baso % (Auto) 0.3 (0-2) % Lymph # (Auto) 1.9 (1.2-4.9) X10*3/uL Powell # (Auto) 0.6 (0.1-1.2) X10*3/uL Eos # (Auto) 0.0 (0.0-0.4) X10*3/uL Baso # (Auto) 0.0 (0.0-0.2) X10*3/uL Abs Immat Gran (auto) 0.04 H (0.00-0.03) X10*3/uL Absolute Neuts (auto) 9.1 H (2.0-8.3) x10*3/uL Absolute Nucleated RBC 0.000 (0.0-0.012) X10*3/uL Nucleated RBC % (auto) 0.0 (0.0-0.2) /100WBC PT 28.5 H (10.0-13.1) SEC INR 2.4 H (0.9-1.1) Sodium 138 (135-145) mmol/L Potassium 4.2 (3.3-5.1) mmol/L Chloride 104 (96-108) mmol/L Carbon Dioxide 23 (22-29) mmol/L Anion Gap 15 (12-20) BUN 24 H (9-16) mg/dL Creatinine 1.32 (0.5-1.4) mg/dL Estim Creat Clear Calc 58.7 Estimated GFR 53 Random Glucose 179 H (60-115) mg/dL Calcium 10.0 D (8.4-10.2) mg/dL Total Bilirubin 1.2 H (0.0-1.0) mg/dL Direct Bilirubin 0.3 (0.0-0.5) mg/dL AST 21 (5-37) U/L ALT 22 (0-40) U/L Alkaline Phosphatase 93 (39-117) U/L Total Protein 7.1 (6.5-8.0) g/dL Albumin 4.2 (3.5-5.0) g/dL Lipase 35 (8-78) U/L Urine Color Urine Appearance Urine pH (5.0-9.0) Ur Specific [place] (1.005-1.025) Urine Protein (Neg-Trace) mg/dL Urine Glucose (UA) (Negative) mg/dL Urine Ketones (Negative) mg/dL Urine Blood (Negative) Urine Nitrite (Negative) Ur Leukocyte Esterase (Negative) Urine RBC (0-2) /HPF Urine WBC (0-5) /HPF Ur Squamous Epith Cells (0-2) /HPF Urine Bacteria (None Seen) Hyaline Casts (0-2) /LPF 01/09/23 Range/Units 02:09 WBC (4.8-10.8) X10*3/uL RBC (4.60-5.80) X10*6/uL Hgb (14.0-18.0) g/dl Hct (42.0-52.0) % MCV (80.0-98.0) fL MCH (27.0-33.0) pg MCHC (31.0-36.0) g/dl RDW (11.0-16.0) % Plt Count (160-400) X10*3/uL MPV (9.4-12.4) fL Immature Gran % (Auto) (0.0-0.4) % Neut % (Auto) (45-73) % Lymph % (Auto) (20-40) % Powell % (Auto) (2-11) % Eos % (Auto) (0-4) % Baso % (Auto) (0-2) % Lymph # (Auto) (1.2-4.9) X10*3/uL Powell # (Auto) (0.1-1.2) X10*3/uL Eos # (Auto) (0.0-0.4) X10*3/uL Baso # (Auto) (0.0-0.2) X10*3/uL Abs Immat Gran (auto) (0.00-0.03) X10*3/uL Absolute Neuts (auto) (2.0-8.3) x10*3/uL Absolute Nucleated RBC (0.0-0.012) X10*3/uL Nucleated RBC % (auto) (0.0-0.2) /100WBC PT (10.0-13.1) SEC INR (0.9-1.1) Sodium (135-145) mmol/L Potassium (3.3-5.1) mmol/L Chloride (96-108) mmol/L Carbon Dioxide (22-29) mmol/L Anion Gap (12-20) BUN (9-16) mg/dL Creatinine (0.5-1.4) mg/dL Estim Creat Clear Calc Estimated GFR Random Glucose (60-115) mg/dL Calcium (8.4-10.2) mg/dL Total Bilirubin (0.0-1.0) mg/dL Direct Bilirubin (0.0-0.5) mg/dL AST (5-37) U/L ALT (0-40) U/L Alkaline Phosphatase (39-117) U/L Total Protein (6.5-8.0) g/dL Albumin (3.5-5.0) g/dL Lipase (8-78) U/L Urine Color Yellow Urine Appearance Clear Urine pH 5.5 (5.0-9.0) Ur Specific [place] 1.015 (1.005-1.025) Urine Protein 30 (1+) H (Neg-Trace) mg/dL Urine Glucose (UA) Negative (Negative) mg/dL Urine Ketones Negative (Negative) mg/dL Urine Blood Negative (Negative) Urine Nitrite Negative (Negative) Ur Leukocyte Esterase Negative (Negative) Urine RBC 0-2 (0-2) /HPF Urine WBC 0-5 (0-5) /HPF Ur Squamous Epith Cells 0-2 (0-2) /HPF Urine Bacteria None Seen (None Seen) Hyaline Casts 0-2 (0-2) /LPF Critical Care Time Critical Care Time Critical Care Time: Yes Total Critical Care Time: 30 Attestation: I have personally provided critical care time. Time includes review of lab data, radiology results, discussion with consultants, and monitoring for potential decompensation. Intervention performed as documented. Discharge Plan Discharge Clinical Impression: Nausea vomiting and diarrhea Patient Disposition: Home, Self-Care Instructions: Acute Nausea and Vomiting (ED), Acute Diarrhea (ED) Additional Instructions: Please follow-up with your primary care physician tomorrow. If you have any worsening or new symptoms, please return to the emergency room or call 911 Prescriptions: New loperamide 2 mg tablet 2 mg PO Q4H PRN (Reason: loose stool) Qty: 14 0RF Rx Instructions: administer after each loose stool until symptoms controlled; do not exceed 8 mg per 24 hrs ondansetron HCl 4 mg tablet 4 mg PO Q6H PRN (Reason: nausea and vomiting) Qty: 14 0RF No Action coenzyme Q10 [CoQ-10] 100 mg Capsule 100 mg PO DAILY calcium carbonate 500 mg calcium (1,250 mg) Tablet 1,000 mg PO DAILY magnesium 250 mg Tablet 500 mg PO DAILY cholecalciferol (vitamin D3) [Vitamin D3] 10 mcg (400 unit) Tablet 10 mcg PO DAILY simvastatin 20 mg Tablet 20 mg PO BEDTIME carboxymethylcellulose sodium [Refresh Tears] 0.5 % Drops 1 drp OPHTHALMIC (EYE) BID Entresto 24-26 mg tablet 1 tab PO BID Qty: 60 0RF warfarin 2.5 mg tablet 2.5 mg PO .COMPLEX Protocol: Dose Management Condition: Tuesday (Week One) Dose/Route: 7.5 mg Instruction: 3 x 2.5 mg tablets Condition: Tuesday Dose/Route: 7.5 mg Instruction: 3 x 2.5 mg tablets Condition: Tuesday Dose/Route: 5 mg Instruction: 2 x 2.5 mg tablets Condition: Tuesday Dose/Route: 7.5 mg Instruction: 3 x 2.5 mg tablets Condition: Dose/Route: 7.5 mg Instruction: 3 x 2.5 mg tablets Condition: Tuesday Dose/Route: 7.5 mg Instruction: 3 x 2.5 mg tablets Condition: Tuesday Dose/Route: 5 mg Instruction: 2 x 2.5 mg tablets Condition: Tuesday (Week Two) Dose/Route: 7.5 mg Instruction: 3 x 2.5 mg tablets Condition: Tuesday Dose/Route: 7.5 mg Instruction: 3 x 2.5 mg tablets Condition: Tuesday Dose/Route: 5 mg Instruction: 2 x 2.5 mg tablets Condition: Tuesday Dose/Route: 7.5 mg Instruction: 3 x 2.5 mg tablets Condition: Dose/Route: 7.5 mg Instruction: 3 x 2.5 mg tablets Condition: Tuesday Dose/Route: 7.5 mg Instruction: 3 x 2.5 mg tablets Condition: Tuesday Dose/Route: 5 mg Instruction: 2 x 2.5 mg tablets Protocol Text: Adjustment Start Date: 01/06/23 INR Value: 2.4 INR Date: 01/06/23 Recheck Date: 02/03/23 Additional Instructions: cont reg dosing balance reds and greens call with any medication changes call if date for cardiac cath Rx Instructions: 5mg tuesday/ 7.5mg x 5 days; lorazepam 0.5 mg tablet 0.5 mg PO BID omeprazole 20 mg capsule,delayed release(DR/EC) 20 mg PO DAILY@0630 eplerenone 25 mg tablet 25 mg PO DAILY carvedilol phosphate [Coreg CR] 40 mg capsule, ER multiphase 24 hr 40 mg PO DAILY Rx Instructions: must administer with a meal/food furosemide 20 mg tablet 20 mg PO DAILY
[2023-01-08 23:05] LABS: Basophils Percent Auto 0.3 % (0-2); Eosinophils Percent Auto 0.3 % (0-4); Hematocrit 47.7 % (42.0-52.0); Hemoglobin 16.4 g/dl (14.0-18.0); Imm Gran Abs Auto 0.04 X10*3/uL (0.00-0.03); Imm Gran Pct Auto 0.3 % (0.0-0.4); Lymphocytes Absolute Auto 1.9 X10*3/uL (1.2-4.9); Mean Corpuscular HGB Conc 34.4 g/dl (31.0-36.0); Mean Corpuscular Hemoglobin 29.5 pg (27.0-33.0); Mean Corpuscular Volume 85.8 fL (80.0-98.0); Mean Platelet Volume 10.9 fL (9.4-12.4); Monocytes Absolute Auto 0.6 X10*3/uL (0.1-1.2); Monocytes Percent Auto 4.9 % (2-11); Neutrophils Absolute Auto 9.1 x10*3/uL (2.0-8.3); Neutrophils Percent Auto 78.2 % (45-73); Platelet Count 153 X10*3/uL (160-400); Red Blood Count 5.56 X10*6/uL (4.60-5.80); Red Cell Distribution Width 13.5 % (11.0-16.0); White Blood Count 11.7 X10*3/uL (4.8-10.8)
[2023-01-08] MEDS: ondansetron HCL 4 MG/2 ML VIAL IVPUSH (23:08)
[2023-01-08] MEDS: Loperamide HCl 2 MG CAPSULE 4 MG PO (23:08)
[2023-01-08] MEDS: Lactated Ringers 1,000 ML 500 ML IV (23:08)
--- NOTE | 2023-01-08 23:09 | MHC.EDTECH ---
PATIENT CAME IN VIA EMS ,VITALS SIGN TAKEN ,PATIENT WAS HOOKED UP TO [facility] ,EKG DONE AND WAS READ BY DR KENNEDYRN IN ROOM TRIAGING PATIENT ,PT WAS ARTS THERAPIST INTO HOSPITAL ATTIRE .
[2023-01-08 23:22] LABS: Alanine Aminotransferase 22 U/L (0-40); Albumin Level 4.2 g/dL (3.5-5.0); Alkaline Phosphatase 93 U/L (39-117); Anion Gap 15 (12-20); Aspartate Amino Transferase 21 U/L (5-37); Bilirubin Direct 0.3 mg/dL (0.0-0.5); Bilirubin Total 1.2 mg/dL (0.0-1.0); Blood Urea Nitrogen 24 mg/dL (9-16); Carbon Dioxide 23 mmol/L (22-29); Chloride 104 mmol/L (96-108); Creatinine Clr Calc Pharmacy 58.7; Estimated Glomerular Filt Rate 53; Glucose Random 179 mg/dL (60-115); Lipase 35 U/L (8-78); Potassium 4.2 mmol/L (3.3-5.1); Sodium 138 mmol/L (135-145); Total Protein 7.1 g/dL (6.5-8.0)
[2023-01-08 23:24] LABS: INTERNATIONAL NORM RATIO 2.4 (0.9-1.1); Prothrombin Time 28.5 SEC (10.0-13.1)
--- NOTE | 2023-01-08 23:27 | PC.NURSE ---
Patient arrived via EMS reporting N/V/D beginning at 5pm today. 20g IV line inserted in left ac, patent with good blood return. Medications administered as per OCT. Call gates within reach. Will continue to follow plan of care
[2023-01-08 23:48] VITALS: BP 116/83; PULSE 99; RESP 16; TEMP 36.4
--- NOTE | 2023-01-09 00:08 | MHC.EDTECH ---
0000 rounding and vitals sign done ,pt was assisted to bedside commode ,pt had lg watery stool ,back to bed ,warm blanket given .
[2023-01-09 02:00] VITALS: BP 118/62; PULSE 81; RESP 20; TEMP 36.6; O2SAT 95
[2023-01-09 02:17] LABS: Appearance Urine Clear; Color Urine Yellow; Glucose Urine UA Negative (Negative); Leukocyte Esterase Urine Negative (Negative); Nitrite Urine Negative (Negative); PH 5.5 (5.0-9.0); Specific Gravity - Urine 1.015 (1.005-1.025); UMIC TRIGGER UACC YES; Urine Blood Negative (Negative); Urine Ketones Negative (Negative); Urine Protein 30 (1+) mg/dL (Neg-Trace)
[2023-01-09 02:22] LABS: Bacteria Urine None Seen (None Seen); Hyaline Casts Urine 0-2 /LPF (0-2); RBC Urine 0-2 /HPF (0-2); Squamous Epithelial Cell Urine 0-2 /HPF (0-2); WBC Urine 0-5 /HPF (0-5)
== END 2023-01-09 04:51 | disposition home or self-care (01) ==
PROVIDERS: Emergency Provider Emergency Medicine; PCP Internal Medicine
DX: R11.2 Nausea with vomiting, unspecified (principal); R19.7 Diarrhea, unspecified; E11.22 Type 2 diabetes mellitus with diabetic chronic kidney disease; I13.0 Hypertensive heart and chronic kidney disease with heart failure and stage 1 through stage 4 chronic kidney disease, or unspecified chronic kidney disease; N18.30 Chronic kidney disease, stage 3 unspecified; I50.9 Heart failure, unspecified; I48.0 Paroxysmal atrial fibrillation; Z79.01 Long term (current) use of anticoagulants; Z79.899 Other long term (current) drug therapy
CPT/HCPCS: 36415; 80048; 80076; 81001; 83690; 85025; 85610; 93005; 96361; 96374; 99284; 99285; J2405

== ENCOUNTER → 2023-01-10 09:40 | Outpatient (BNVA) | payer MEDICARE, MEDICAID, SELFPAY | PROVIDERS: PCP Internal Medicine; Visit Provider Internal Medicine ==

== ENCOUNTER → 2023-01-24 14:17 | Outpatient (BNVA) | payer MEDICARE, MEDICAID, SELFPAY | PROVIDERS: PCP Internal Medicine; Visit Provider Internal Medicine ==

== ENCOUNTER → 2023-01-27 09:53 | Outpatient (BNVA) | payer MEDICARE, MEDICAID, SELFPAY | PROVIDERS: PCP Internal Medicine; Visit Provider Internal Medicine ==

== ENCOUNTER → 2023-01-31 11:27 | Outpatient (BNVA) | payer MEDICARE, MEDICAID, SELFPAY | PROVIDERS: PCP Internal Medicine; Visit Provider Internal Medicine ==

== ENCOUNTER → 2023-02-04 15:39 | Outpatient (BNVA) | payer MEDICARE, MEDICAID, SELFPAY | PROVIDERS: PCP Internal Medicine; Visit Provider Internal Medicine ==

== ENCOUNTER → 2023-02-17 13:36 | Outpatient (BNVA) | payer MEDICARE, MEDICAID, SELFPAY | PROVIDERS: PCP Internal Medicine; Visit Provider Internal Medicine | DX: Z79.01 Long term (current) use of anticoagulants (principal) ==

== ENCOUNTER → 2023-02-24 10:08 | Outpatient (BNVA) | payer MEDICARE, MEDICAID, SELFPAY | PROVIDERS: PCP Internal Medicine; Visit Provider Internal Medicine ==

== ENCOUNTER 2023-03-01 20:06 | Emergency (ER) | payer MEDICARE, MEDICAID, SELFPAY ==
--- NOTE | ~2023-03-01 | XR_ITS ---
EXAMINATION: XR HAND, LEFT CLINICAL INFORMATION: Left ring finger pain COMPARISON: None available. TECHNIQUE: PA, lateral, and oblique views of the left hand. FINDINGS: Degenerative changes are present at the DIP joints most marked in the fifth digit with periarticular calcification. Milder degenerative changes are seen at the PIP joints. Degenerative changes are also present at the first CMC joint with some minimal narrowing at the radiocarpal joint. No chondrocalcinosis. A small metallic foreign body is present at the base of the proximal phalanx of the index finger measuring about 2 mm in size. XR/XR hand LT min 3V IMPRESSION: 1. Degenerative changes in the hand as described above. 2. Small metallic foreign body index finger as described above. 3. No acute fractures are seen.
--- NOTE | 2023-03-01 20:19 | ED.GENADULT ---
HPI - General Adult General Chief complaint: Extremity Problem Stated complaint: Red ring finger Time Seen by Provider: 03/01/23 22:49 Source: patient Mode of arrival: ambulatory Limitations: no limitations History of Present Illness HPI narrative: 78-year-old male presents with reddish discoloration, swelling and pain to left ring finger. Symptoms started today. He is on blood thinning medications. He may have heard on the trash earlier today but he does not remember any specific injury. The pain is mild in nature. Worse with palpation and feel stiff. It does not radiate. Symptoms are worse with palpation and movement. Related Data Home Medications Medication Instructions Recorded Confirmed eplerenone 25 mg tablet 25 mg PO DAILY 11/14/20 02/04/23 lorazepam 0.5 mg tablet 0.5 mg PO BID 11/14/20 02/04/23 omeprazole 20 mg capsule,delayed 20 mg PO DAILY@0630 11/14/20 02/04/23 release coenzyme Q10 100 mg capsule 100 mg PO DAILY 04/14/21 02/04/23 (CoQ-10) carvedilol phosphate 40 mg 40 mg PO DAILY 11/04/22 02/04/23 capsule,[id number] multiphase (Coreg CR) calcium carbonate 500 mg calcium 1,000 mg PO DAILY 11/30/22 02/04/23 (1,250 mg) tablet carboxymethylcellulose sodium 0.5 1 drp ophthalmic (eye) BID 11/30/22 02/04/23 % eye drops (Refresh Tears) cholecalciferol (vitamin D3) 10 10 mcg PO DAILY 11/30/22 02/04/23 mcg (400 unit) tablet (Vitamin D3) magnesium 250 mg tablet 500 mg PO DAILY 11/30/22 02/04/23 simvastatin 20 mg tablet 20 mg PO BEDTIME 11/30/22 02/04/23 warfarin 2.5 mg tablet 2.5 mg PO .COMPLEX 12/02/22 02/24/23 furosemide 20 mg tablet 20 mg PO DAILY 01/06/23 02/04/23 Previous Rx's Medication Instructions Recorded sacubitril 24 mg-valsartan 26 mg 1 tab PO BID #60 tabs 12/01/22 tablet (Entresto) loperamide 2 mg tablet 2 mg PO Q4H PRN loose stool #14 01/09/23 tabs ondansetron HCl 4 mg tablet 4 mg PO Q6H PRN nausea and 01/09/23 vomiting #14 tabs doxycycline monohydrate 100 mg 100 mg PO BID #10 tabs 03/01/23 tablet Allergies Allergy/AdvReac Type Severity Reaction Status Date / Time adenosine Allergy Severe cardiac, Verified 02/24/23 10:08 elevated BP, Stroke Gadolinium-Containing Allergy Severe red eyes Verified 02/24/23 10:08 Contrast Medi Iodinated Contrast Media Allergy Severe Seizure Verified 02/24/23 10:08 [CONTRAST, IV] carvedilol Allergy Intermediate disorientat Verified 02/24/23 10:08 ion erythromycin base AdvReac Unknown Gut Verified 02/24/23 10:08 pain , Abdominal Pain, GI upset Review of Systems Review of Systems: CONSTITUTIONAL: Denies weight loss, fever and chills. HEENT: Denies changes in vision and hearing. RESPIRATORY: Denies SOB and cough. CV: Denies palpitations no CP. GI: Denies abdominal pain, nausea, vomiting and diarrhea. : Denies dysuria and urinary frequency. MSK: + myalgia and joint pain. SKIN: Denies rash and pruritus. NEUROLOGICAL: Denies headache and syncope. PSYCHIATRIC: Denies recent changes in mood. Denies anxiety and depression. All other ROS are negative unless in HPI PMFSH Past Medical History Medical History A-fib Anxiety CHF (congestive heart failure) CVA (cerebral vascular accident) Myocardial infarct, old Surgical History History of appendectomy Social History Social History Household Members: None Housing: House Do you presently have visiting nurse or other home services: Yes Alcohol intake: never Patient Tobacco Use Status: Never used Tobacco Advance Directives: No Advance Directives Information Provided: No service: Yes Current occupational status: disabled Physical Exam ED Vital Signs: Vital Signs - 24 hr 03/01/23 20:20 03/01/23 22:35 Temperature 97 F 97.9 F Pulse Rate 90 78 Respiratory Rate 16 16 Blood Pressure 143/75 H 112/53 L Pulse Oximetry 96 96 Oxygen Delivery Method Room Air Room Air BMI result Body Mass Index 27.1 GEN: Well developed, no acute distress, alert, oriented HEENT: Normocephalic, atraumatic, normal external ears, nose appears normal Eyes: Normal to appearance Neck: Supple, no lymphadenopathy Respiratory: Talks in complete sentences, no respiratory distress Extremities: No clubbing cyanosis or edema, left her ring finger, swelling, erythema, mild tenderness, neurovascular intact, capillary refill less than 3 seconds Neurologic: No focal neurologic deficits, cranial nerves 2-12 intact, gait normal Skin: No rash Course Course Course Narrative: This is an RME: Additional HPI, ROS, PE not included below will be deferred to primary provider. 78-year-old male with a past medical history of congestive heart failure, CKD, diabetes, AFib anticoagulated on Coumadin presents with a atraumatic left ring finger redness and pain. Patient reports that this started today. Patient denies fever, chills, nausea, vomiting, chest pain, shortness of breath, numbness, tingling, headache, vision changes. Plan: labs, xray Reevaluation(s) Reevaluation #1: X-ray does not reveal any acute fractures. There is a metallic object which he reports as being old. There several times a day. Should things get worse, he will return for re-evaluation Reevaluation #2: call from pharmacy - on coumadin switched to cephalexin no hx of MRSA TID 500mg to start a probiotic and check INR on Tuesday 7 day course. no hx of MRSA Noted. - Manju Philly DO, no abscess documented Medications Administered Discontinued Medications Generic Name Dose Route Start Last Admin Trade Name Freq PRN Reason Stop Dose Admin Doxycycline Monohydrate 100 mg 03/01/23 23:23 03/02/23 00:21 Doxycycline Monohydrate 100 Mg Capsule PO 03/01/23 23:24 100 mg ONCE ONE Administration Medical Decision Making Medical Decision Making [facility] Narrative: 78-year-old male in anticoagulation presents with left ring finger swelling, redness. Symptoms started today. Examination reveals erythematous left finger, it appears possibly to be ecchymotic versus cellulitic. He is neurovascular intact. At this point, I do believe it is reasonable to go ahead and treat patient for cellulitis. Will review imaging studies and laboratory analysis ordered by provider. Differential Diagnosis Differential Diagnoses: The differential diagnosis associated with the presentation includes (Contusion, cellulitis, hematoma) Lab Data [facility] Lab Attestation statement: I reviewed the patient's lab results. 03/01/23 21:22 03/01/23 21:22 Labs: Lab Results 03/01/23 03/01/23 03/01/23 Range/Units 21:22 21:22 21:22 WBC 6.5 (4.8-10.8) X10*3/uL RBC 4.72 (4.60-5.80) X10*6/uL Hgb 14.2 (14.0-18.0) g/dl Hct 42.1 (42.0-52.0) % MCV 89.2 (80.0-98.0) fL MCH 30.1 (27.0-33.0) pg MCHC 33.7 (31.0-36.0) g/dl RDW 13.5 (11.0-16.0) % Plt Count 120 L (160-400) X10*3/uL MPV 10.3 (9.4-12.4) fL Immature Gran % (Auto) 0.2 (0.0-0.4) % Neut % (Auto) 54.6 (45-73) % Lymph % (Auto) 34.2 (20-40) % [place] % (Auto) 9.3 (2-11) % Eos % (Auto) 1.2 (0-4) % Baso % (Auto) 0.5 (0-2) % Lymph # (Auto) 2.2 (1.2-4.9) X10*3/uL [place] # (Auto) 0.6 (0.1-1.2) X10*3/uL Eos # (Auto) 0.1 (0.0-0.4) X10*3/uL Baso # (Auto) 0.0 (0.0-0.2) X10*3/uL Abs Immat Gran (auto) 0.01 (0.00-0.03) X10*3/uL Absolute Neuts (auto) 3.6 (2.0-8.3) x10*3/uL Absolute Nucleated RBC 0.000 (0.0-0.012) X10*3/uL Nucleated RBC % (auto) 0.0 (0.0-0.2) /100WBC ESR 6 (0-15) MM/HR PT (10.0-13.1) SEC INR (0.9-1.1) Sodium 139 (135-145) mmol/L Potassium 3.8 (3.3-5.1) mmol/L Chloride 104 (96-108) mmol/L Carbon Dioxide 24 (22-29) mmol/L Anion Gap 15 (12-20) BUN 25 H (9-16) mg/dL Creatinine 1.15 (0.5-1.4) mg/dL Estim Creat Clear Calc 59.0 Estimated GFR > 60 Random Glucose 151 H (60-115) mg/dL Calcium 9.2 D (8.4-10.2) mg/dL Total Bilirubin 0.5 (0.0-1.0) mg/dL AST 15 (5-37) U/L ALT 17 (0-40) U/L Alkaline Phosphatase 96 (39-117) U/L C-Reactive Protein 0.22 (< or = 0.50) mg/dL Total Protein 6.1 L (6.5-8.0) g/dL Albumin 3.5 (3.5-5.0) g/dL 03/01/23 Range/Units 21:22 WBC (4.8-10.8) X10*3/uL RBC (4.60-5.80) X10*6/uL Hgb (14.0-18.0) g/dl Hct (42.0-52.0) % MCV (80.0-98.0) fL MCH (27.0-33.0) pg MCHC (31.0-36.0) g/dl RDW (11.0-16.0) % Plt Count (160-400) X10*3/uL MPV (9.4-12.4) fL Immature Gran % (Auto) (0.0-0.4) % Neut % (Auto) (45-73) % Lymph % (Auto) (20-40) % [place] % (Auto) (2-11) % Eos % (Auto) (0-4) % Baso % (Auto) (0-2) % Lymph # (Auto) (1.2-4.9) X10*3/uL [place] # (Auto) (0.1-1.2) X10*3/uL Eos # (Auto) (0.0-0.4) X10*3/uL Baso # (Auto) (0.0-0.2) X10*3/uL Abs Immat Gran (auto) (0.00-0.03) X10*3/uL Absolute Neuts (auto) (2.0-8.3) x10*3/uL Absolute Nucleated RBC (0.0-0.012) X10*3/uL Nucleated RBC % (auto) (0.0-0.2) /100WBC ESR (0-15) MM/HR PT 28.9 H (10.0-13.1) SEC INR 2.4 H (0.9-1.1) Sodium (135-145) mmol/L Potassium (3.3-5.1) mmol/L Chloride (96-108) mmol/L Carbon Dioxide (22-29) mmol/L Anion Gap (12-20) BUN (9-16) mg/dL Creatinine (0.5-1.4) mg/dL Estim Creat Clear Calc Estimated GFR Random Glucose (60-115) mg/dL Calcium (8.4-10.2) mg/dL Total Bilirubin (0.0-1.0) mg/dL AST (5-37) U/L ALT (0-40) U/L Alkaline Phosphatase (39-117) U/L C-Reactive Protein (< or = 0.50) mg/dL Total Protein (6.5-8.0) g/dL Albumin (3.5-5.0) g/dL Independent Interpretation I performed an independent interpretation of an: Plain X-Ray (Soft tissue swelling of ring finger, metallic object seen at the PIP) Prescription Management I considered prescription management with: Antibiotic Discharge Plan Discharge Clinical Impression: Cellulitis Patient Disposition: Home, Self-Care Instructions: Cellulitis (ED) Prescriptions: New doxycycline monohydrate 100 mg tablet 100 mg PO BID Qty: 10 0RF No Action coenzyme Q10 [CoQ-10] 100 mg Capsule 100 mg PO DAILY calcium carbonate 500 mg calcium (1,250 mg) Tablet 1,000 mg PO DAILY magnesium 250 mg Tablet 500 mg PO DAILY cholecalciferol (vitamin D3) [Vitamin D3] 10 mcg (400 unit) Tablet 10 mcg PO DAILY simvastatin 20 mg Tablet 20 mg PO BEDTIME carboxymethylcellulose sodium [Refresh Tears] 0.5 % Drops 1 drp OPHTHALMIC (EYE) BID Entresto 24-26 mg tablet 1 tab PO BID Qty: 60 0RF warfarin 2.5 mg tablet 2.5 mg PO .COMPLEX Protocol: Dose Management Condition: Tuesday (Week One) Dose/Route: 7.5 mg Instruction: 3 x 2.5 mg tablets Condition: Tuesday Dose/Route: 7.5 mg Instruction: 3 x 2.5 mg tablets Condition: Tuesday Dose/Route: 7.5 mg Instruction: 3 x 2.5 mg tablets Condition: Tuesday Dose/Route: 5 mg Instruction: 2 x 2.5 mg tablets Condition: Dose/Route: 7.5 mg Instruction: 3 x 2.5 mg tablets Condition: Tuesday Dose/Route: 7.5 mg Instruction: 3 x 2.5 mg tablets Condition: Tuesday Dose/Route: 7.5 mg Instruction: 3 x 2.5 mg tablets Condition: Tuesday (Week Two) Dose/Route: 7.5 mg Instruction: 3 x 2.5 mg tablets Condition: Tuesday Dose/Route: 7.5 mg Instruction: 3 x 2.5 mg tablets Condition: Tuesday Dose/Route: 7.5 mg Instruction: 3 x 2.5 mg tablets Condition: Tuesday Dose/Route: 5 mg Instruction: 2 x 2.5 mg tablets Condition: Dose/Route: 7.5 mg Instruction: 3 x 2.5 mg tablets Condition: Tuesday Dose/Route: 7.5 mg Instruction: 3 x 2.5 mg tablets Condition: Tuesday Dose/Route: 7.5 mg Instruction: 3 x 2.5 mg tablets Protocol Text: Adjustment Start Date: 02/24/23 INR Value: 2.3 INR Date: 02/24/23 Recheck Date: 03/03/23 Additional Instructions: cont reg dosing Rx Instructions: 5mg tuesday/ 7.5mg x 5 days; loperamide 2 mg tablet 2 mg PO Q4H PRN (Reason: loose stool) Qty: 14 0RF Rx Instructions: administer after each loose stool until symptoms controlled; do not exceed 8 mg per 24 hrs ondansetron HCl 4 mg tablet 4 mg PO Q6H PRN (Reason: nausea and vomiting) Qty: 14 0RF lorazepam 0.5 mg tablet 0.5 mg PO BID omeprazole 20 mg capsule,delayed release(DR/EC) 20 mg PO DAILY@0630 eplerenone 25 mg tablet 25 mg PO DAILY carvedilol phosphate [Coreg CR] 40 mg capsule, ER multiphase 24 hr 40 mg PO DAILY Rx Instructions: must administer with a meal/food furosemide 20 mg tablet 20 mg PO DAILY Referrals: Yonathan Womack MD [Primary Care Provider] - 2 days Interventions: ED Discharge Assessment Last Done: 03/02/23 00:25 Discharge Date/Time: 03/02/23 00:25
[2023-03-01 20:20] VITALS: BP 143/75; PULSE 90; RESP 16; TEMP 36.1; O2SAT 96; BMI 27.1
--- NOTE | 2023-03-01 21:01 | PC.NURSE ---
pt refusing lab draws at this time, would like provider eval before agreeing to labs
[2023-03-01 21:31] LABS: MANUAL DIFF FLAG NO
[2023-03-01 21:32] LABS: Basophils Percent Auto 0.5 % (0-2); Eosinophils Absolute Auto 0.1 X10*3/uL (0.0-0.4); Eosinophils Percent Auto 1.2 % (0-4); Hematocrit 42.1 % (42.0-52.0); Hemoglobin 14.2 g/dl (14.0-18.0); Imm Gran Abs Auto 0.01 X10*3/uL (0.00-0.03); Imm Gran Pct Auto 0.2 % (0.0-0.4); Lymphocytes Absolute Auto 2.2 X10*3/uL (1.2-4.9); Lymphocytes Percent Auto 34.2 % (20-40); Mean Corpuscular HGB Conc 33.7 g/dl (31.0-36.0); Mean Corpuscular Hemoglobin 30.1 pg (27.0-33.0); Mean Corpuscular Volume 89.2 fL (80.0-98.0); Mean Platelet Volume 10.3 fL (9.4-12.4); Monocytes Absolute Auto 0.6 X10*3/uL (0.1-1.2); Monocytes Percent Auto 9.3 % (2-11); Neutrophils Absolute Auto 3.6 x10*3/uL (2.0-8.3); Neutrophils Percent Auto 54.6 % (45-73); Platelet Count 120 X10*3/uL (160-400); Red Blood Count 4.72 X10*6/uL (4.60-5.80); Red Cell Distribution Width 13.5 % (11.0-16.0); White Blood Count 6.5 X10*3/uL (4.8-10.8)
[2023-03-01 21:51] LABS: INTERNATIONAL NORM RATIO 2.4 (0.9-1.1); Prothrombin Time 28.9 SEC (10.0-13.1)
[2023-03-01 21:57] LABS: Alanine Aminotransferase 17 U/L (0-40); Albumin Level 3.5 g/dL (3.5-5.0); Alkaline Phosphatase 96 U/L (39-117); Anion Gap 15 (12-20); Aspartate Amino Transferase 15 U/L (5-37); Bilirubin Total 0.5 mg/dL (0.0-1.0); Blood Urea Nitrogen 25 mg/dL (9-16); C Reactive Protein 0.22 mg/dL (< or = 0.50); Calcium 9.2 mg/dL (8.4-10.2); Carbon Dioxide 24 mmol/L (22-29); Chloride 104 mmol/L (96-108); Estimated Glomerular Filt Rate > 60; Glucose Random 151 mg/dL (60-115); Potassium 3.8 mmol/L (3.3-5.1); Sodium 139 mmol/L (135-145); Total Protein 6.1 g/dL (6.5-8.0)
[2023-03-01 22:35] VITALS: BP 112/53; PULSE 78; RESP 16; TEMP 36.6; O2SAT 96
[2023-03-01 22:36] LABS: Erythrocyte Sedimentation Rate 6 MM/HR (0-15)
[2023-03-02] MEDS: Doxycycline Monohydrate 100 MG CAPSULE PO (00:21)
== END 2023-03-02 00:25 | disposition home or self-care (01) ==
PROVIDERS: Physician Assistant; Emergency Provider Emergency Medicine; PCP Internal Medicine
DX: L03.012 Cellulitis of left finger (principal); M79.645 Pain in left finger(s); I48.0 Paroxysmal atrial fibrillation; E11.22 Type 2 diabetes mellitus with diabetic chronic kidney disease; I13.0 Hypertensive heart and chronic kidney disease with heart failure and stage 1 through stage 4 chronic kidney disease, or unspecified chronic kidney disease; N18.30 Chronic kidney disease, stage 3 unspecified; I50.9 Heart failure, unspecified; I25.2 Old myocardial infarction; Z79.01 Long term (current) use of anticoagulants; Z79.899 Other long term (current) drug therapy
CPT/HCPCS: 36415; 73130; 80053; 85025; 85610; 85652; 86140; 99283

== ENCOUNTER → 2023-03-02 14:39 | Outpatient (BNVA) | payer MEDICARE, MEDICAID, SELFPAY | PROVIDERS: PCP Internal Medicine; Visit Provider Internal Medicine ==

== ENCOUNTER 2023-03-04 10:06 | Outpatient (AMB) | payer MEDICARE, MEDICAID, SELFPAY ==
--- NOTE | 2023-03-04 10:18 | MHC.OFFVISCO ---
Intake Intake Visit Reasons: Anticoagulation Allergies adenosine Allergy (Severe, Verified 03/04/23 10:12) cardiac, elevated BP, Stroke Gadolinium-Containing Contrast Medi Allergy (Severe, Verified 03/04/23 10:12) red eyes Iodinated Contrast Media [CONTRAST, IV] Allergy (Severe, Verified 03/04/23 10:12) Seizure carvedilol Allergy (Intermediate, Verified 03/04/23 10:12) disorientation erythromycin base Adverse Reaction (Unknown, Verified 03/04/23 10:12) Gut pain , Abdominal Pain, GI upset Medication List - Last Reconciled 03/04/23 by Rhonda Smith, RN calcium carbonate 1,000 mg PO DAILY carboxymethylcellulose sodium 0.5% (Refresh Tears) 1 drp ophthalmic (eye) BID carvedilol phosphate ER (Coreg CR) 40 mg PO DAILY cholecalciferol (vitamin D3) (Vitamin D3) 10 mcg PO DAILY coenzyme Q10 (CoQ-10) 100 mg PO DAILY doxycycline monohydrate 100 mg PO BID eplerenone 25 mg PO DAILY furosemide 20 mg PO DAILY loperamide 2 mg PO Q4H PRN lorazepam 0.5 mg PO BID magnesium 500 mg PO DAILY omeprazole 20 mg PO DAILY@0630 ondansetron HCl 4 mg PO Q6H PRN sacubitril-valsartan 24-26 mg (Entresto) 1 tab PO BID simvastatin 20 mg PO BEDTIME warfarin See Protocol 5mg tuesday/ 7.5mg x 5 days; Nursing Note INR RECEIVED FROM [facility]) CONTINUE PRESENT DOSE AND RETEST ON 03/09 WILL BE SURE TO HAVE FREQ [facility] WHILE ON THE KEFLEX Anti-Coag Initial Assessment Social Hx Patient Tobacco Use Status: Never used Tobacco alcohol intake: never Alcohol intake frequency: does not drink Coding Level of Care Code Est Patient Level 1 Diagnoses Current use of anticoagulant therapy Z79.01 Results AMB INR Fingerstick AMB INR Fingerstick 2.3 Last Edit by Rhonda Smith RN on 03/04/23 10:14 Assessment & Plan Assessment & Plan (1) Current use of anticoagulant therapy: Code(s): 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
== END 2023-03-04 10:20 | disposition home or self-care (01) ==
LOC: HO.ACS 10:06
PROVIDERS: PCP Internal Medicine; Visit Provider Internal Medicine
DX: Z79.01 Long term (current) use of anticoagulants (principal)

== ENCOUNTER → 2023-03-04 10:06 | Outpatient (BNVA) | payer MEDICARE, MEDICAID, SELFPAY | PROVIDERS: PCP Internal Medicine; Visit Provider Internal Medicine | DX: I48.20 Chronic atrial fibrillation, unspecified (principal); Z79.01 Long term (current) use of anticoagulants; Z51.81 Encounter for therapeutic drug level monitoring | CPT/HCPCS: 99211 ==

== ENCOUNTER → 2023-03-09 13:32 | Outpatient (BNVA) | payer MEDICARE, MEDICAID, SELFPAY | PROVIDERS: PCP Internal Medicine; Visit Provider Internal Medicine ==

== ENCOUNTER 2023-03-10 11:53 | Outpatient (REF) | payer MEDICARE, MEDICAID, SELFPAY ==
[2023-03-10 14:09] LABS: Alanine Aminotransferase 17 U/L (0-40); Albumin Level 3.8 g/dL (3.5-5.0); Alkaline Phosphatase 80 U/L (39-117); Aspartate Amino Transferase 17 U/L (5-37); Bilirubin Direct 0.3 mg/dL (0.0-0.5); Bilirubin Total 0.8 mg/dL (0.0-1.0); Glucose Fasting 124 mg/dL (60-99); Magnesium 1.9 mg/dL (1.6-2.6); Total Protein 6.6 g/dL (6.5-8.0)
[2023-03-10 14:18] LABS: Cholesterol 129 mg/dL; Estimated Average Glucose 117 mg/dL; HDL Cholesterol 33 mg/dL; Hemoglobin A1c % 5.7 %; LDL Cholesterol Calculated 78 mg/dl; Triglycerides 92 mg/dL
[2023-03-10 15:17] LABS: Reflex LDLD? No
[2023-03-10 15:35] LABS: PSA,Total (Free>4and<10) 0.22 ng/mL (0.00-4.00)
== END 2023-03-10 11:54 | disposition home or self-care (01) ==
LOC: HO.LNP 11:53
PROVIDERS: Visit Provider Internal Medicine
DX: Z12.5 Encounter for screening for malignant neoplasm of prostate (principal); E78.00 Pure hypercholesterolemia, unspecified; R73.03 Prediabetes; R97.20 Elevated prostate specific antigen [PSA]; E83.42 Hypomagnesemia
CPT/HCPCS: 80061; 80076; 82947; 83036; 83735; 84153

== ENCOUNTER → 2023-03-17 14:01 | Outpatient (BNVA) | payer MEDICARE, MEDICAID, SELFPAY | PROVIDERS: PCP Internal Medicine; Visit Provider Internal Medicine ==

== ENCOUNTER 2023-03-31 08:24 | Outpatient (AMB) | payer MEDICARE, MEDICAID, SELFPAY ==
--- NOTE | 2023-03-31 08:31 | MHC.OFFVISCO ---
Intake Intake Visit Reasons: Anticoagulation Allergies adenosine Allergy (Severe, Verified 03/31/23 08:26) cardiac, elevated BP, Stroke Gadolinium-Containing Contrast Medi Allergy (Severe, Verified 03/31/23 08:26) red eyes Iodinated Contrast Media [CONTRAST, IV] Allergy (Severe, Verified 03/31/23 08:26) Seizure carvedilol Allergy (Intermediate, Verified 03/31/23 08:26) disorientation erythromycin base Adverse Reaction (Unknown, Verified 03/31/23 08:26) Gut pain , Abdominal Pain, GI upset Medication List - Last Reconciled 03/31/23 by Christianne Dunn RN calcium carbonate 1,000 mg PO DAILY carboxymethylcellulose sodium 0.5% (Refresh Tears) 1 drp ophthalmic (eye) BID carvedilol phosphate ER (Coreg CR) 40 mg PO DAILY cholecalciferol (vitamin D3) (Vitamin D3) 10 mcg PO DAILY coenzyme Q10 (CoQ-10) 100 mg PO DAILY furosemide 20 mg PO DAILY loperamide 2 mg PO Q4H PRN lorazepam 0.5 mg PO BID magnesium 500 mg PO DAILY omeprazole 20 mg PO DAILY@0630 ondansetron HCl 4 mg PO Q6H PRN sacubitril-valsartan 24-26 mg (Entresto) 1 tab PO BID warfarin See Protocol 5mg tuesday/ 7.5mg x 5 days; Nursing Note INR: 2.5- in therapeutic range Medications and supplements reviewed- pt states eplerenone- no interaction per micromedex and simvastatin- which can raise per micromedces d/c approx 1.5 months ago No changes in health, diet, medications, or supplements, Denies any signs and symptoms of bleeding or bruising or clotting. 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
[2023-03-31 08:32] LABS: Prothrombin Time Whole Bld POC 30.5 sec (11.1-13.5); ~PT, ~INR - Anti Coag Clinic 2.5 (0.9-1.1)
== END 2023-03-31 08:37 | disposition home or self-care (01) ==
LOC: HO.ACS 08:24
PROVIDERS: PCP Internal Medicine; Visit Provider Internal Medicine
DX: Z79.01 Long term (current) use of anticoagulants (principal)

== ENCOUNTER → 2023-03-31 08:24 | Outpatient (BNVA) | payer MEDICARE, MEDICAID, SELFPAY | PROVIDERS: PCP Internal Medicine; Visit Provider Internal Medicine | DX: I48.20 Chronic atrial fibrillation, unspecified (principal); Z79.01 Long term (current) use of anticoagulants; Z51.81 Encounter for therapeutic drug level monitoring | CPT/HCPCS: 85610; 99211 ==

== ENCOUNTER 2023-04-21 08:32 | Outpatient (AMB) | payer MEDICARE, MEDICAID, SELFPAY ==
--- NOTE | 2023-04-21 08:40 | MHC.OFFVISCO ---
Intake Intake Visit Reasons: Anticoagulation Allergies adenosine Allergy (Severe, Verified 04/21/23 08:36) cardiac, elevated BP, Stroke Gadolinium-Containing Contrast Medi Allergy (Severe, Verified 04/21/23 08:36) red eyes Iodinated Contrast Media [CONTRAST, IV] Allergy (Severe, Verified 04/21/23 08:36) Seizure carvedilol Allergy (Intermediate, Verified 04/21/23 08:36) disorientation erythromycin base Adverse Reaction (Unknown, Verified 04/21/23 08:36) Gut pain , Abdominal Pain, GI upset Medication List - Last Reconciled 04/21/23 by Christianne Dunn, RN calcium carbonate 1,000 mg PO DAILY carboxymethylcellulose sodium 0.5% (Refresh Tears) 1 drp ophthalmic (eye) BID carvedilol phosphate ER (Coreg CR) 40 mg PO DAILY cholecalciferol (vitamin D3) (Vitamin D3) 10 mcg PO DAILY coenzyme Q10 (CoQ-10) 100 mg PO DAILY furosemide 20 mg PO DAILY loperamide 2 mg PO Q4H PRN lorazepam 0.5 mg PO BID magnesium 500 mg PO DAILY omeprazole 20 mg PO DAILY@0630 ondansetron HCl 4 mg PO Q6H PRN sacubitril-valsartan 24-26 mg (Entresto) 1 tab PO BID warfarin See Protocol 5mg tuesday/ 7.5mg x 5 days; Nursing Note INR: 2.3- in therapeutic range Medications and supplements reviewed- no changes No changes in health, diet, medications, or supplements, Denies any signs and symptoms of bleeding or bruising or clotting. 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
[2023-04-21 08:41] LABS: ~PT, ~INR - Anti Coag Clinic 2.3 (0.9-1.1)
== END 2023-04-21 08:46 | disposition home or self-care (01) ==
LOC: HO.ACS 08:32
PROVIDERS: PCP Internal Medicine; Visit Provider Internal Medicine
DX: Z79.01 Long term (current) use of anticoagulants (principal)

== ENCOUNTER → 2023-04-21 08:32 | Outpatient (BNVA) | payer MEDICARE, MEDICAID, SELFPAY | PROVIDERS: PCP Internal Medicine; Visit Provider Internal Medicine | DX: I48.20 Chronic atrial fibrillation, unspecified (principal); Z79.01 Long term (current) use of anticoagulants; Z51.81 Encounter for therapeutic drug level monitoring | CPT/HCPCS: 85610; 99211 ==

== ENCOUNTER 2023-05-19 08:25 | Outpatient (AMB) | payer MEDICARE, MEDICAID, SELFPAY ==
[2023-05-19 08:33] LABS: Prothrombin Time Whole Bld POC 25.3 sec (11.1-13.5); ~PT, ~INR - Anti Coag Clinic 2.1 (0.9-1.1)
--- NOTE | 2023-05-19 08:34 | MHC.OFFVISCO ---
Intake Intake Visit Reasons: Anticoagulation Allergies adenosine Allergy (Severe, Verified 05/19/23 08:26) cardiac, elevated BP, Stroke Gadolinium-Containing Contrast Medi Allergy (Severe, Verified 05/19/23 08:26) red eyes Iodinated Contrast Media [CONTRAST, IV] Allergy (Severe, Verified 05/19/23 08:26) Seizure carvedilol Allergy (Intermediate, Verified 05/19/23 08:26) disorientation erythromycin base Adverse Reaction (Unknown, Verified 05/19/23 08:26) Gut pain , Abdominal Pain, GI upset Medication List - Last Reconciled 05/19/23 by Christianne Dunn RN calcium carbonate 1,000 mg PO DAILY carboxymethylcellulose sodium 0.5% (Refresh Tears) 1 drp ophthalmic (eye) BID carvedilol phosphate ER (Coreg CR) 40 mg PO DAILY cholecalciferol (vitamin D3) (Vitamin D3) 10 mcg PO DAILY coenzyme Q10 (CoQ-10) 100 mg PO DAILY furosemide 20 mg PO DAILY loperamide 2 mg PO Q4H PRN lorazepam 0.5 mg PO BID magnesium 500 mg PO DAILY omeprazole 20 mg PO DAILY@0630 ondansetron HCl 4 mg PO Q6H PRN sacubitril-valsartan 24-26 mg (Entresto) 1 tab PO BID spironolactone 25 mg PO DAILY warfarin See Protocol 5mg tuesday/ 7.5mg x 5 days; Nursing Note INR: 2.1- in therapeutic range Medications and supplements reviewed- pt states back on simvastatin 20mg hs, now on spironalactone 25mg daily- both affect inr with a delayed response No changes in health, diet, medications, or supplements, Denies any signs and symptoms of bleeding or bruising or clotting. Bleeding, bruising, clotting discussed Nutritional guidance given Dose: 7.5mg x 6, 5mg x 1 F/U INR: 2 weeks due to medication changes Patient verbalizes understanding of instructions given pt with c.o knee pain. amb with cane. 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
== END 2023-05-19 08:50 | disposition home or self-care (01) ==
LOC: HO.ACS 08:25
PROVIDERS: PCP Internal Medicine; Visit Provider Internal Medicine
DX: Z79.01 Long term (current) use of anticoagulants (principal)

== ENCOUNTER → 2023-05-19 08:25 | Outpatient (BNVA) | payer MEDICARE, MEDICAID, SELFPAY | PROVIDERS: PCP Internal Medicine; Visit Provider Internal Medicine | DX: I48.20 Chronic atrial fibrillation, unspecified (principal); Z79.01 Long term (current) use of anticoagulants; Z51.81 Encounter for therapeutic drug level monitoring | CPT/HCPCS: 85610; 99211 ==

== ENCOUNTER 2023-05-19 09:00 | Outpatient (REF) | payer MEDICARE, MEDICAID, SELFPAY ==
[2023-05-19 11:22] LABS: Anion Gap 15 (12-20); Blood Urea Nitrogen 18 mg/dL (9-16); Calcium 9.8 mg/dL (8.4-10.2); Carbon Dioxide 25 mmol/L (22-29); Chloride 103 mmol/L (96-108); Estimated Glomerular Filt Rate > 60; Glucose Random 114 mg/dL (60-115); Potassium 4.3 mmol/L (3.3-5.1); Sodium 139 mmol/L (135-145)
== END 2023-05-19 09:01 | disposition home or self-care (01) ==
LOC: HO.LAB 09:00
PROVIDERS: Visit Provider Nurse Practitioner
DX: Z13.89 Encounter for screening for other disorder (principal)
CPT/HCPCS: 36415; 80048

== ENCOUNTER 2023-06-02 08:37 | Outpatient (AMB) | payer MEDICARE, MEDICAID, SELFPAY ==
--- NOTE | 2023-06-02 08:55 | MHC.OFFVISCO ---
Intake Intake Visit Reasons: Anticoagulation Allergies adenosine Allergy (Severe, Verified 06/02/23 08:45) cardiac, elevated BP, Stroke Gadolinium-Containing Contrast Medi Allergy (Severe, Verified 06/02/23 08:45) red eyes Iodinated Contrast Media [CONTRAST, IV] Allergy (Severe, Verified 06/02/23 08:45) Seizure carvedilol Allergy (Intermediate, Verified 06/02/23 08:45) disorientation erythromycin base Adverse Reaction (Unknown, Verified 06/02/23 08:45) Gut pain , Abdominal Pain, GI upset Medication List - Last Reconciled 06/02/23 by Evelyn Arzate, RN calcium carbonate 1,000 mg PO DAILY carboxymethylcellulose sodium 0.5% (Refresh Tears) 1 drp ophthalmic (eye) BID carvedilol phosphate ER (Coreg CR) 40 mg PO DAILY cholecalciferol (vitamin D3) (Vitamin D3) 10 mcg PO DAILY coenzyme Q10 (CoQ-10) 100 mg PO DAILY furosemide 20 mg PO DAILY loperamide 2 mg PO Q4H PRN lorazepam 0.5 mg PO BID magnesium 500 mg PO DAILY omeprazole 20 mg PO DAILY@0630 ondansetron HCl 4 mg PO Q6H PRN sacubitril-valsartan 24-26 mg (Entresto) 1 tab PO BID simvastatin 20 mg PO BEDTIME spironolactone 25 mg PO DAILY warfarin See Protocol 5mg tuesday/ 7.5mg x 5 days; Nursing Note Amb to ACS slowly using cane, feeling well Medications and supplements reviewed, started simvastatin (major raiser delayed) and spirnolactone (moderate lower INR, delayed) 05/19 No other changes in health, diet, medications, or supplements Denies any unusual signs and symptoms of bruising, bleeding Denies any new Chest pain, SOB, or clotting INR: 2.2 in therapeutic range Nutritional guidance given: balance greens and reds in diet Dose: continue usual dosing;5mg x 1 day and 7.5mg x 6 days F/U INR: 2 weeks to continue to monitor any changes in INR related to new meds Patient verbalizes understanding of instructions given with accurate read back/ teach back of dosing Anti-Coag Initial Assessment Social Hx Patient Tobacco Use Status: Never used Tobacco alcohol intake: never Alcohol intake frequency: does not drink Coding Level of Care Code Est Patient Level 1 Diagnoses Current use of anticoagulant therapy Z79.01 Time Spent (min) 15 Results AMB INR Fingerstick AMB INR Fingerstick 2.2 Last Edit by Evelyn Arzate RN on 06/02/23 08:53 interface failure Assessment & Plan Assessment & Plan (1) Current use of anticoagulant therapy: Code(s): 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
[2023-06-02 10:03] LABS: Prothrombin Time Whole Bld POC 26.4 sec (11.1-13.5); ~PT, ~INR - Anti Coag Clinic 2.2 (0.9-1.1)
== END 2023-06-02 09:00 | disposition home or self-care (01) ==
LOC: HO.ACS 08:37
PROVIDERS: PCP Internal Medicine; Visit Provider Internal Medicine
DX: Z79.01 Long term (current) use of anticoagulants (principal)

== ENCOUNTER → 2023-06-02 08:37 | Outpatient (BNVA) | payer MEDICARE, MEDICAID, SELFPAY | PROVIDERS: PCP Internal Medicine; Visit Provider Internal Medicine | DX: I48.0 Paroxysmal atrial fibrillation (principal); Z79.01 Long term (current) use of anticoagulants; Z51.81 Encounter for therapeutic drug level monitoring | CPT/HCPCS: 85610; 99211 ==

== ENCOUNTER 2023-06-16 08:58 | Outpatient (AMB) | payer MEDICARE, MEDICAID, SELFPAY ==
--- NOTE | 2023-06-16 09:17 | MHC.OFFVISCO ---
Intake Intake Visit Reasons: Anticoagulation Allergies adenosine Allergy (Severe, Verified 06/16/23 09:08) cardiac, elevated BP, Stroke Gadolinium-Containing Contrast Medi Allergy (Severe, Verified 06/16/23 09:08) red eyes Iodinated Contrast Media [CONTRAST, IV] Allergy (Severe, Verified 06/16/23 09:08) Seizure carvedilol Allergy (Intermediate, Verified 06/16/23 09:08) disorientation erythromycin base Adverse Reaction (Unknown, Verified 06/16/23 09:08) Gut pain , Abdominal Pain, GI upset Medication List - Last Reconciled 06/16/23 by Tyesha Valente RN calcium carbonate 1,000 mg PO DAILY carboxymethylcellulose sodium 0.5% (Refresh Tears) 1 drp ophthalmic (eye) BID carvedilol phosphate ER (Coreg CR) 40 mg PO DAILY cholecalciferol (vitamin D3) (Vitamin D3) 10 mcg PO DAILY coenzyme Q10 (CoQ-10) 100 mg PO DAILY furosemide 20 mg PO DAILY loperamide 2 mg PO Q4H PRN lorazepam 0.5 mg PO BID magnesium 500 mg PO DAILY omeprazole 20 mg PO DAILY@0630 ondansetron HCl 4 mg PO Q6H PRN sacubitril-valsartan 24-26 mg (Entresto) 1 tab PO BID simvastatin 20 mg PO BEDTIME spironolactone 25 mg PO DAILY warfarin See Protocol 5mg tuesday/ 7.5mg x 5 days; Nursing Note INR: 2.5 in therapeutic range Medications and supplements reviewed No changes in health, diet, medications, or supplements, Denies any signs and symptoms of bleeding or bruising or clotting. Bleeding, bruising, clotting discussed Nutritional guidance given Dose: 5MG X 1 DAYS/ 7.5MG X 6 DAYS F/U INR: 4 WEEKS PER PT REQUEST Patient verbalizes understanding of instructions given Anti-Coag Initial Assessment Social Hx Patient Tobacco Use Status: Never used Tobacco alcohol intake: never Alcohol intake frequency: does not drink Coding Level of Care Code Est Patient Level 1 Diagnoses Current use of anticoagulant therapy Z79.01 Results AMB INR Fingerstick AMB INR Fingerstick 2.5 Last Edit by Tyesha Valente RN on 06/16/23 09:18 NO INTERFACING MANUL ENTRY ON GOING Assessment & Plan Assessment & Plan (1) Current use of anticoagulant therapy: Code(s): Z79.01 - [facility] (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
[2023-06-16 09:55] LABS: Prothrombin Time Whole Bld POC 29.7 sec (11.1-13.5); ~PT, ~INR - Anti Coag Clinic 2.5 (0.9-1.1)
== END 2023-06-16 09:20 | disposition home or self-care (01) ==
LOC: HO.ACS 08:58
PROVIDERS: PCP Internal Medicine; Visit Provider Internal Medicine
DX: Z79.01 Long term (current) use of anticoagulants (principal)

== ENCOUNTER → 2023-06-16 08:58 | Outpatient (BNVA) | payer MEDICARE, MEDICAID, SELFPAY | PROVIDERS: PCP Internal Medicine; Visit Provider Internal Medicine | DX: I48.20 Chronic atrial fibrillation, unspecified (principal); Z79.01 Long term (current) use of anticoagulants; Z51.81 Encounter for therapeutic drug level monitoring | CPT/HCPCS: 85610; 99211 ==

== ENCOUNTER 2023-06-17 13:13 | Outpatient (REF) | payer MEDICARE, MEDICAID, SELFPAY ==
[2023-06-17 13:20] LABS: Appearance Urine Clear; Color Urine Yellow; Glucose Urine UA Negative (Negative); Leukocyte Esterase Urine Negative (Negative); Nitrite Urine Negative (Negative); PH 5.5 (5.0-9.0); Urine Blood Negative (Negative); Urine Ketones Negative (Negative); Urine Protein Negative (Neg-Trace)
[2023-06-17 13:22] LABS: Bacteria Urine None Seen (None Seen); Hyaline Casts Urine 0-2 /LPF (0-2); RBC Urine 0-2 /HPF (0-2); Squamous Epithelial Cell Urine 0-2 /HPF (0-2); WBC Urine 0-5 /HPF (0-5)
== END 2023-06-17 13:14 | disposition home or self-care (01) ==
LOC: HO.LNP 13:13
PROVIDERS: Visit Provider Internal Medicine
DX: N39.0 Urinary tract infection, site not specified (principal)
CPT/HCPCS: 81001

== ENCOUNTER 2023-06-21 09:08 | Outpatient (AMB) | payer MEDICARE, MEDICAID, SELFPAY ==
--- NOTE | 2023-06-21 09:25 | MHC.OFFVISCO ---
Intake Intake Visit Reasons: Anticoagulation Allergies adenosine Allergy (Severe, Verified 06/21/23 09:09) cardiac, elevated BP, Stroke Gadolinium-Containing Contrast Medi Allergy (Severe, Verified 06/21/23 09:09) red eyes Iodinated Contrast Media [CONTRAST, IV] Allergy (Severe, Verified 06/21/23 09:09) Seizure carvedilol Allergy (Intermediate, Verified 06/21/23 09:09) disorientation erythromycin base Adverse Reaction (Unknown, Verified 06/21/23 09:09) Gut pain , Abdominal Pain, GI upset Medication List - Last Reconciled 06/21/23 by Evelyn Arzate, RN calcium carbonate 1,000 mg PO DAILY carboxymethylcellulose sodium 0.5% (Refresh Tears) 1 drp ophthalmic (eye) BID carvedilol phosphate ER (Coreg CR) 40 mg PO DAILY cholecalciferol (vitamin D3) (Vitamin D3) 10 mcg PO DAILY coenzyme Q10 (CoQ-10) 100 mg PO DAILY furosemide 20 mg PO DAILY loperamide 2 mg PO Q4H PRN lorazepam 0.5 mg PO BID magnesium 500 mg PO DAILY omeprazole 20 mg PO DAILY@0630 ondansetron HCl 4 mg PO Q6H PRN sacubitril-valsartan 24-26 mg (Entresto) 1 tab PO BID simvastatin 20 mg PO BEDTIME spironolactone 25 mg PO DAILY warfarin See Protocol 5mg tuesday/ 7.5mg x 5 days; Nursing Note Amb to [facility] using cane feeling well, has emergency dental extractions scheduled for June 23 Medications and supplements reviewed No changes in health, diet, medications, or supplements Denies any unusual signs and symptoms of bruising, bleeding Denies any new Chest pain, SOB, or clotting INR: 2.6 in therapeutic range, sts the Dentist wants it 2.5 or below, sts also that dentist will hold warfarin dose on after the extraction Nutritional guidance given:dark leafy greens today and tomorrow then balance greens and reds in diet, dental soft diet Dose: continue usual dosing;but increase greens next couple days (as per pt Dentist has me hold warfarin after the procedure so no dosing decrease today, and possible he may not have extraction done on ) recommended pt come in on before Dentist for INR- thats just not going to work F/U INR:2 weeks Patient verbalizes understanding of instructions given with accurate read back/ teach back of dosing Anti-Coag Initial Assessment Social Hx Patient Tobacco Use Status: Never used Tobacco alcohol intake: never Alcohol intake frequency: does not drink Coding Level of Care Code Est Patient Level 1 Diagnoses Current use of anticoagulant therapy Z79.01 Time Spent (min) 15 Results AMB INR Fingerstick AMB INR Fingerstick 2.6 Last Edit by Eveyln Arzate RN on 06/21/23 09:23 interface failure Assessment & Plan Assessment & Plan (1) Current use of anticoagulant therapy: 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
[2023-06-21 09:27] LABS: Prothrombin Time Whole Bld POC 31.3 sec (11.1-13.5); ~PT, ~INR - Anti Coag Clinic 2.6 (0.9-1.1)
== END 2023-06-21 09:47 | disposition home or self-care (01) ==
LOC: HO.ACS 09:08
PROVIDERS: PCP Internal Medicine; Visit Provider Internal Medicine
DX: Z79.01 Long term (current) use of anticoagulants (principal)

== ENCOUNTER → 2023-06-21 09:08 | Outpatient (BNVA) | payer MEDICARE, MEDICAID, SELFPAY | PROVIDERS: PCP Internal Medicine; Visit Provider Internal Medicine | DX: I48.20 Chronic atrial fibrillation, unspecified (principal); Z79.01 Long term (current) use of anticoagulants; Z51.81 Encounter for therapeutic drug level monitoring | CPT/HCPCS: 85610; 99211 ==

== ENCOUNTER → 2023-06-22 09:17 | Outpatient (REF) | payer MEDICARE, MEDICAID, SELFPAY ==
--- NOTE | 2023-06-22 09:31 | CA_ITS ---
Transthoracic Echocardiogram Patient (Last, First, Middle): Russell Tiwari A Gender: Male Date of : 1945 Age: 78 Procedure Date: 06/22/2023 Procedure Type: Transthoracic Echocardiogram Location: OP Height: 175.26 cm Weight: 90.72 kg BSA: 2.07 m2 Heart Rate: 67 bpm BP: 128 / 68 mmHg Rn Registry: [facility] Referring MD: Michaela Anguiano [employer]UC[employer]ER[employer] TE[employer]ER Roll Filler: Azeem Clayton MD Symptoms: I50.20 HFrEF I125.10 ASCD Study Quality: Adequate w/ contrast ECG Rhythm: Sinus Conclusions: - 1. Mildly dilated left ventricle with LVEF of 25-30% with impaired relaxation filling pattern 2. No significant abnormality of cardiac valvular Doppler 3. Mildly dilated ascending aorta at 4 cm 4. Normal RV systolic pressure Findings Procedure Information Contrast agent, definity, is being given per protocol without apparent complications. Left Ventricle Mildly increased left ventricular cavity size. There is normal left ventricular wall thickness. The left ventricular systolic function is severely decreased. The visually estimated ejection fraction is between 25 30%. Regional wall motion abnormalities can not be excluded due to suboptimal endocardial definition. Spectral Doppler is indicative of an impaired relaxation filling pattern. E/E prime ratio is between 8 and 15 consistent with indeterminate filling pressures. There is mild septal asymmetric hypertrophy. Right Ventricle Normal right ventricular cavity size. There is moderately decreased right ventricular systolic function. Atria The left atrium was not well visualized. Interatrial shunt cannot be excluded. The right atrium was not well visualized. Aortic Valve Normal aortic valve structure and function. There is no aortic valve stenosis. There is no aortic valve regurgitation. Mitral Valve There is mild anterior mitral leaflet thickening. There is mild mitral annular calcification. There is trace mitral valve regurgitation. There is no mitral valve stenosis. Pulmonic Valve The pulmonic valve was not well visualized. Tricuspid Valve Likely normal tricuspid valve structure and function. There is trace tricuspid valve regurgitation. The right ventricular systolic pressure is normal. The right ventricular systolic pressure is 18 mmHg. Normal right atrial pressure. There is no evidence of pulmonary hypertension. Great Vessels The pulmonary artery was not well visualized. There is mild dilatation of the ascending aorta measuring 4.00 cm. Venous The inferior vena cava is normal in size and collapses greater than 50% with inspiration. Pericardium/Pleural The pericardium was not well visualized. Prior Study Comparison Changes noted compared to prior study dated: 11/30/2022. LV systolic function is further reduced Measurements 2D Linear Measurements IVSd: 1.47 0.6-0.9/0.6-1.0 cm LVIDd: 5.31 3.9-5.3/4.2-5.9 cm LVIDd Index: 2.57 2.4-3.2/2.2-3.1 cm/m2 LVIDs: 4.72 2.0-3.6 cm LVPWd: 0.88 0.7-1.1 cm LA Diam: 3.60 2.7-3.8/3.0-4.0 cm LAIDs Index: 1.74 1.5-2.3 cm/m2 LV Mass: 311.17 67-162/88-224 g LV Mass Index: 150.33 43-95/49-115 g/m2 LVOT Diam: 2.10 3.0+(-)1.3 cm 2D Systolic Function EF 2C: 22.70 >55% Mitral Valve MV VTI: 0.20 MV Pk Kenneth: 0.94 MV Mn Kenneth: 0.56 MV Pk Grad: 4.00 MV Mn Grad: 2.00 MV Pk E: 0.39 MV PK A: 0.87 E/A: 0.50 E'Lateral: 2.92 E'Medial: 2.68 E/E' Med: 14.60 E/E' Lat: 13.40 MVA Continuity: 2.54 Aortic Valve AoV Pk Kenneth: 0.89 AoV Mn Kenneth: 0.61 AoV VTI: 0.17 AoV Pk Grad: 3.00 Aov Mn Grad: 2.00 STACIE Cont.VTI: 2.88 LVOT LVOT Pk Kenneth: 0.70 LVOT Mn Kenneth: 0.49 LVOT VTI: 0.14 LVOT Pk Grad: 2.00 LVOT Mn Grad: 1.00 LVOT Diam: 2.10 LVOT Area: 3.46 Diastolic Function MV Pk E: 0.39 MV Pk A: 0.87 E/A: 0.50 E'Medial: 2.68 E/E' Med: 14.60 E' Laterial: 2.92 E/E' Lat: 13.40 Right Ventricle TAPSE (mm): 13.50 TVS' Kenneth: 9.32 Tricuspid Valve TR Pk Kenneth: 1.91 TR Pk Grad: 15.00 RA Press: 3.00 RVSP: 18.00 Great Vessels Aorta Sinus of Valsalva: 3.70 2.0-3.5 cm Ao Asc: 4.00 2.1-3.4 cm Pulmonary Valve PV Pk Kenneth: 0.73 Peak PV Grad: 2.00 Updated in Other Vendor System with Status of Final Azeem Clayton MD electronically signed on 06/22/2023 12:17:45 PM with status of Final
--- NOTE | 2023-06-22 09:31 | HM_ITS ---
* Total monitoring time 2 days. * Underlying rhythm is sinus. Average ventricular rate 70/Min. Range 55 to 98/Min. * Frequent ventricular ectopy with a burden of 12%. Isolated beats as well as couplets, triplets, bigeminy and trigeminy. 4 morphologies. Several short runs noted. Longest run is 11 beats at 156/min. * Occasional supraventricular ectopy with a burden of 1.6%. * No significant pauses or high-grade heart blocks. * Dizziness in patient diary correlates with NSVT episode of 11 beats. MTDD
== END ==
LOC: HO.CARD 09:17
PROVIDERS: PCP Internal Medicine; Visit Provider Nurse Practitioner
DX: I25.10 Atherosclerotic heart disease of native coronary artery without angina pectoris (principal); I50.20 Unspecified systolic (congestive) heart failure; I48.11 Longstanding persistent atrial fibrillation
CPT/HCPCS: 93225; 93306; Q9957

== ENCOUNTER → 2023-06-22 09:31 | Outpatient (BNV) | payer MEDICARE, MEDICAID, SELFPAY | PROVIDERS: PCP Internal Medicine; Visit Provider Internal Medicine Cardiovascular Disease | DX: I47.20 Ventricular tachycardia, unspecified (principal) | CPT/HCPCS: 93227; 93306 ==

== ENCOUNTER → 2023-06-24 10:48 | Outpatient (BNVA) | payer MEDICARE, MEDICAID, SELFPAY | PROVIDERS: PCP Internal Medicine; Visit Provider Internal Medicine ==

== ENCOUNTER 2023-07-21 09:39 | Outpatient (AMB) | payer MEDICARE, MEDICAID, SELFPAY ==
[2023-07-21 09:49] LABS: Prothrombin Time Whole Bld POC 30.4 sec (11.1-13.5); ~PT, ~INR - Anti Coag Clinic 2.5 (0.9-1.1)
--- NOTE | 2023-07-21 09:58 | MHC.OFFVISCO ---
Intake Intake Visit Reasons: Anticoagulation Allergies adenosine Allergy (Severe, Verified 07/21/23 09:51) cardiac, elevated BP, Stroke Gadolinium-Containing Contrast Medi Allergy (Severe, Verified 07/21/23 09:51) red eyes Iodinated Contrast Media [CONTRAST, IV] Allergy (Severe, Verified 07/21/23 09:51) Seizure carvedilol Allergy (Intermediate, Verified 07/21/23 09:51) disorientation erythromycin base Adverse Reaction (Unknown, Verified 07/21/23 09:51) Gut pain , Abdominal Pain, GI upset Medication List - Last Reconciled 07/21/23 by Tyesha Valente, RN amoxicillin 500 mg PO BID calcium carbonate 1,000 mg PO DAILY carboxymethylcellulose sodium 0.5% (Refresh Tears) 1 drp ophthalmic (eye) BID carvedilol phosphate ER (Coreg CR) 40 mg PO DAILY cholecalciferol (vitamin D3) (Vitamin D3) 10 mcg PO DAILY coenzyme Q10 (CoQ-10) 100 mg PO DAILY furosemide 20 mg PO DAILY loperamide 2 mg PO Q4H PRN lorazepam 0.5 mg PO BID magnesium 500 mg PO DAILY omeprazole 20 mg PO DAILY@0630 ondansetron HCl 4 mg PO Q6H PRN sacubitril-valsartan 24-26 mg (Entresto) 1 tab PO BID simvastatin 20 mg PO BEDTIME spironolactone 25 mg PO DAILY warfarin See Protocol 5mg tuesday/ 7.5mg x 5 days; Nursing Note INR: 2.5 in therapeutic range Medications and supplements reviewed No changes in health, diet, medications, or supplements, Denies any signs and symptoms of bleeding or bruising or clotting. 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
== END 2023-07-21 10:01 | disposition home or self-care (01) ==
LOC: HO.ACS 09:39
PROVIDERS: PCP Internal Medicine; Visit Provider Internal Medicine
DX: Z79.01 Long term (current) use of anticoagulants (principal)

== ENCOUNTER → 2023-07-21 09:39 | Outpatient (BNVA) | payer MEDICARE, MEDICAID, SELFPAY | PROVIDERS: PCP Internal Medicine; Visit Provider Internal Medicine | DX: I48.20 Chronic atrial fibrillation, unspecified (principal); Z79.01 Long term (current) use of anticoagulants; Z51.81 Encounter for therapeutic drug level monitoring | CPT/HCPCS: 85610; 99211 ==

== ENCOUNTER 2023-08-18 09:57 | Outpatient (AMB) | payer MEDICARE, MEDICAID, SELFPAY ==
[2023-08-18 10:08] LABS: Prothrombin Time Whole Bld POC 31.2 sec (11.1-13.5); ~PT, ~INR - Anti Coag Clinic 2.6 (0.9-1.1)
--- NOTE | 2023-08-18 10:14 | MHC.OFFVISCO ---
Intake Intake Visit Reasons: Anticoagulation Allergies adenosine Allergy (Severe, Verified 08/18/23 10:02) cardiac, elevated BP, Stroke Gadolinium-Containing Contrast Medi Allergy (Severe, Verified 08/18/23 10:02) red eyes Iodinated Contrast Media [CONTRAST, IV] Allergy (Severe, Verified 08/18/23 10:02) Seizure carvedilol Allergy (Intermediate, Verified 08/18/23 10:02) disorientation erythromycin base Adverse Reaction (Unknown, Verified 08/18/23 10:02) Gut pain , Abdominal Pain, GI upset Medication List - Last Reconciled 08/18/23 by Rhonda Smith, RN amoxicillin 500 mg PO BID calcium carbonate 1,000 mg PO DAILY carboxymethylcellulose sodium 0.5% (Refresh Tears) 1 drp ophthalmic (eye) BID carvedilol phosphate ER (Coreg CR) 40 mg PO DAILY cholecalciferol (vitamin D3) (Vitamin D3) 10 mcg PO DAILY coenzyme Q10 (CoQ-10) 100 mg PO DAILY furosemide 20 mg PO DAILY loperamide 2 mg PO Q4H PRN lorazepam 0.5 mg PO BID magnesium 500 mg PO DAILY omeprazole 20 mg PO DAILY@0630 ondansetron HCl 4 mg PO Q6H PRN sacubitril-valsartan 24-26 mg (Entresto) 1 tab PO BID simvastatin 20 mg PO BEDTIME spironolactone 25 mg PO DAILY warfarin See Protocol 5mg tuesday/ 7.5mg x 5 days; Nursing Note NO CP,SOB,DIET/MED CHANGES,FALLS OR SX OF BLEEDING. CONTINUE PRESENT DOSE AND FOLLOW-UP IN 4 WEEKS. GOOD UNDERSTANDING OF DOSING INSTR. Anti-Coag Initial Assessment Social Hx Patient Tobacco Use Status: Never used Tobacco alcohol intake: never Alcohol intake frequency: does not drink Coding Level of Care Code Est Patient Level 1 Diagnoses Current use of anticoagulant therapy Z79.01 Assessment & Plan Assessment & Plan (1) Current use of anticoagulant therapy: Code(s): Z79.01 - [facility] (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
== END 2023-08-18 10:16 | disposition home or self-care (01) ==
LOC: HO.ACS 09:57
PROVIDERS: PCP Internal Medicine; Visit Provider Internal Medicine
DX: Z79.01 Long term (current) use of anticoagulants (principal)

== ENCOUNTER → 2023-08-18 09:57 | Outpatient (BNVA) | payer MEDICARE, MEDICAID, SELFPAY | PROVIDERS: PCP Internal Medicine; Visit Provider Internal Medicine | DX: I48.20 Chronic atrial fibrillation, unspecified (principal); Z79.01 Long term (current) use of anticoagulants; Z51.81 Encounter for therapeutic drug level monitoring | CPT/HCPCS: 85610; 99211 ==

== ENCOUNTER 2023-09-13 11:42 | Outpatient (REF) | payer MEDICARE, MEDICAID, SELFPAY ==
[2023-09-13 11:50] LABS: MANUAL DIFF FLAG NO
[2023-09-13 12:03] LABS: Basophils Percent Auto 0.5 % (0-2); Eosinophils Absolute Auto 0.1 X10*3/uL (0.0-0.4); Hematocrit 44.6 % (42.0-52.0); Imm Gran Abs Auto 0.04 X10*3/uL (0.00-0.03); Imm Gran Pct Auto 0.5 % (0.0-0.4); Lymphocytes Percent Auto 35.3 % (20-40); Mean Corpuscular HGB Conc 33.6 g/dl (31.0-36.0); Mean Corpuscular Hemoglobin 30.9 pg (27.0-33.0); Mean Platelet Volume 11.1 fL (9.4-12.4); Monocytes Absolute Auto 0.6 X10*3/uL (0.1-1.2); Monocytes Percent Auto 7.5 % (2-11); Neutrophils Absolute Auto 4.7 x10*3/uL (2.0-8.3); Neutrophils Percent Auto 55.2 % (45-73); Platelet Count 144 X10*3/uL (160-400); Red Blood Count 4.85 X10*6/uL (4.60-5.80); Red Cell Distribution Width 13.1 % (11.0-16.0); White Blood Count 8.4 X10*3/uL (4.8-10.8)
[2023-09-13 12:10] LABS: Estimated Average Glucose 117 mg/dL; Hemoglobin A1c % 5.7 % (<6.0)
[2023-09-13 12:46] LABS: PSA,Total (Free>4and<10) 0.17 ng/mL (0.00-4.00)
[2023-09-13 13:16] LABS: Alanine Aminotransferase 15 U/L (0-40); Albumin Level 3.9 g/dL (3.5-5.0); Alkaline Phosphatase 95 U/L (39-117); Anion Gap 11 (12-20); Aspartate Amino Transferase 17 U/L (5-37); Bilirubin Total 0.6 mg/dL (0.0-1.0); Blood Urea Nitrogen 22 mg/dL (9-16); Calcium 9.5 mg/dL (8.4-10.2); Carbon Dioxide 28 mmol/L (22-29); Chloride 104 mmol/L (96-108); Cholesterol 121 mg/dL (<200); Estimated Glomerular Filt Rate > 60; Glucose Fasting 120 mg/dL (60-99); HDL Cholesterol 37 mg/dL (>40); LDL Cholesterol Calculated 64 mg/dL (<100); Magnesium 1.7 mg/dL (1.6-2.6); Potassium 4.4 mmol/L (3.3-5.1); Sodium 139 mmol/L (135-145); Total Protein 6.9 g/dL (6.5-8.0); Triglycerides 100 mg/dL (<150); Vitamin D 25-OH Total 36.1 ng/mL (>30)
== END 2023-09-13 11:43 | disposition home or self-care (01) ==
LOC: HO.LNP 11:42
PROVIDERS: Visit Provider Internal Medicine
DX: R73.03 Prediabetes (principal); E78.00 Pure hypercholesterolemia, unspecified; E55.9 Vitamin D deficiency, unspecified; I11.0 Hypertensive heart disease with heart failure; I50.23 Acute on chronic systolic (congestive) heart failure; Z12.5 Encounter for screening for malignant neoplasm of prostate
CPT/HCPCS: 80053; 80061; 82306; 83036; 83735; 84153; 85025

== ENCOUNTER 2023-09-15 08:48 | Outpatient (AMB) | payer MEDICARE, MEDICAID, SELFPAY ==
--- NOTE | 2023-09-15 08:56 | MHC.OFFVISCO ---
Intake Intake Visit Reasons: Anticoagulation Allergies adenosine Allergy (Severe, Verified 09/15/23 08:53) cardiac, elevated BP, Stroke Gadolinium-Containing Contrast Medi Allergy (Severe, Verified 09/15/23 08:53) red eyes Iodinated Contrast Media [CONTRAST, IV] Allergy (Severe, Verified 09/15/23 08:53) Seizure carvedilol Allergy (Intermediate, Verified 09/15/23 08:53) disorientation erythromycin base Adverse Reaction (Unknown, Verified 09/15/23 08:53) Gut pain , Abdominal Pain, GI upset Medication List - Last Reconciled 09/15/23 by Christianne Dunn RN amoxicillin 500 mg PO BID calcium carbonate 1,000 mg PO DAILY carboxymethylcellulose sodium 0.5% (Refresh Tears) 1 drp ophthalmic (eye) BID carvedilol phosphate ER (Coreg CR) 40 mg PO DAILY cholecalciferol (vitamin D3) (Vitamin D3) 10 mcg PO DAILY coenzyme Q10 (CoQ-10) 100 mg PO DAILY furosemide 20 mg PO DAILY loperamide 2 mg PO Q4H PRN lorazepam 0.5 mg PO BID magnesium 500 mg PO DAILY omeprazole 20 mg PO DAILY@0630 ondansetron HCl 4 mg PO Q6H PRN sacubitril-valsartan 24-26 mg (Entresto) 1 tab PO BID simvastatin 20 mg PO BEDTIME spironolactone 25 mg PO DAILY warfarin See Protocol 5mg tuesday/ 7.5mg x 5 days; Nursing Note INR: 2.3- in therapeutic range of 2-3 Medications and supplements reviewed No changes in health, diet, medications, or supplements, Denies any signs and symptoms of bleeding or bruising or clotting. Bleeding, bruising, clotting discussed Nutritional guidance given Dose: 5mg x 1. 7.5mg x 6 F/U INR: 4 weeks Patient verbalizes understanding of instructions given pt states had a fall approx 2 weeks ago - assisted by neighbors to get up. states has life line. pt states hit head but did not go to the hospital or notify pcp. 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
[2023-09-15 08:57] LABS: Prothrombin Time Whole Bld POC 27.4 sec (11.1-13.5); ~PT, ~INR - Anti Coag Clinic 2.3 (0.9-1.1)
== END 2023-09-15 09:03 | disposition home or self-care (01) ==
LOC: HO.ACS 08:48
PROVIDERS: PCP Internal Medicine; Visit Provider Internal Medicine
DX: Z79.01 Long term (current) use of anticoagulants (principal)

== ENCOUNTER → 2023-09-15 08:48 | Outpatient (BNVA) | payer MEDICARE, MEDICAID, SELFPAY | PROVIDERS: PCP Internal Medicine; Visit Provider Internal Medicine | DX: I48.20 Chronic atrial fibrillation, unspecified (principal); Z79.01 Long term (current) use of anticoagulants; Z51.81 Encounter for therapeutic drug level monitoring | CPT/HCPCS: 85610; 99211 ==

== ENCOUNTER 2023-09-20 10:49 | Outpatient (REF) | payer MEDICARE, MEDICAID, SELFPAY ==
[2023-09-20 11:44] LABS: Appearance Urine Clear; Color Urine Yellow; Glucose Urine UA Negative (Negative); Leukocyte Esterase Urine Negative (Negative); Nitrite Urine Negative (Negative); UMIC TRIGGER UACC YES; Urine Blood Trace (Negative); Urine Ketones Negative (Negative); Urine Protein Negative (Neg-Trace)
[2023-09-20 12:06] LABS: Creatinine Urine 130.07 mg/dL; Microalbum/Creatinine Ratio Ur 12.3 ug/mg cr (<30)
[2023-09-20 12:30] LABS: Bacteria Urine None Seen (None Seen); Hyaline Casts Urine 0-2 /LPF (0-2); RBC Urine 0-2 /HPF (0-2); Squamous Epithelial Cell Urine 0-2 /HPF (0-2); WBC Urine 0-5 /HPF (0-5)
== END 2023-09-20 10:50 | disposition home or self-care (01) ==
LOC: HO.LNP 10:49
PROVIDERS: Visit Provider Internal Medicine
DX: Z00.00 Encounter for general adult medical examination without abnormal findings (principal); R73.09 Other abnormal glucose
CPT/HCPCS: 81001; 82043; 82570

== ENCOUNTER 2023-10-06 08:20 | Outpatient (REF) | payer MEDICARE, MEDICAID, SELFPAY ==
--- NOTE | ~2023-10-06 | US_ITS ---
EXAMINATION: US ABDOMEN COMPLETE CLINICAL INFORMATION: Adrenal gland cyst. COMPARISON: Ultrasound abdomen complete 04/13/2022 and 03/12/2021. CT abdomen and pelvis 04/14/2021. TECHNIQUE: Real-time imaging of the abdominal viscera. FINDINGS: PANCREAS: Normal. ABDOMINAL AORTA: The abdominal aorta is of normal caliber. INFERIOR VENA CAVA: Visualized portions are normal. LIVER: The liver is enlarged measuring 17.0 cm. The liver contour is normal. There is mild increased liver echogenicity. There is no intrahepatic biliary duct dilatation seen. There is anechoic cyst in the left hepatic lobe measuring 1.1 x 0.8 x 0.8 cm. GALLBLADDER: The gallbladder is physiologically distended without evidence of stones or pericholecystic fluid. There are small polyps versus sludge measuring 1.9 x 0.6 x 1.4 cm.. Gallbladder wall thickness is 0.5-0.7 cm. COMMON BILE DUCT: Normal in caliber measuring 0.4 cm in diameter. RIGHT KIDNEY: No hydronephrosis or renal calculi. The kidney measures 10.7 cm in maximum dimension. There is anechoic cyst with septation in midpole exophytic measuring 1.4 x 1.3 x 1.3 cm LEFT KIDNEY: Normal. No hydronephrosis. No renal calculi or focal parenchymal lesions. The kidney measures 11.7 cm in maximum dimension. SPLEEN: Normal. The spleen measures 10.8 cm in maximum dimension. FREE FLUID: None. US/US abdomen complete IMPRESSION: Small polyp versus nonmobile bilateral gallbladder sludge. Mild wall thickening.. Left hepatic lobe cyst. Mild borderline hepatomegaly and mild hepatic steatosis.. Complex cyst 1.4 cm right kidney. Bosniak type II.
== END 2023-10-06 08:21 | disposition home or self-care (01) ==
LOC: HO.US 08:20
PROVIDERS: PCP Internal Medicine; Visit Provider Internal Medicine
DX: E27.8 Other specified disorders of adrenal gland (principal)
CPT/HCPCS: 76700

== ENCOUNTER 2023-10-13 08:22 | Outpatient (AMB) | payer MEDICARE, MEDICAID, SELFPAY ==
[2023-10-13 08:35] LABS: Prothrombin Time Whole Bld POC 27.9 sec (11.1-13.5); ~PT, ~INR - Anti Coag Clinic 2.3 (0.9-1.1)
--- NOTE | 2023-10-13 08:37 | MHC.OFFVISCO ---
Intake Intake Visit Reasons: Anticoagulation Allergies adenosine Allergy (Severe, Verified 10/13/23 08:27) cardiac, elevated BP, Stroke Gadolinium-Containing Contrast Medi Allergy (Severe, Verified 10/13/23 08:27) red eyes Iodinated Contrast Media [CONTRAST, IV] Allergy (Severe, Verified 10/13/23 08:27) Seizure carvedilol Allergy (Intermediate, Verified 10/13/23 08:27) disorientation erythromycin base Adverse Reaction (Unknown, Verified 10/13/23 08:27) Gut pain , Abdominal Pain, GI upset Medication List - Last Reconciled 10/13/23 by Tyesha Valente RN amoxicillin 500 mg PO BID calcium carbonate 1,000 mg PO DAILY carboxymethylcellulose sodium 0.5% (Refresh Tears) 1 drp ophthalmic (eye) BID carvedilol phosphate ER (Coreg CR) 40 mg PO DAILY cholecalciferol (vitamin D3) (Vitamin D3) 10 mcg PO DAILY coenzyme Q10 (CoQ-10) 100 mg PO DAILY furosemide 20 mg PO DAILY loperamide 2 mg PO Q4H PRN lorazepam 0.5 mg PO BID magnesium 500 mg PO DAILY omeprazole 20 mg PO DAILY@0630 ondansetron HCl 4 mg PO Q6H PRN sacubitril-valsartan 24-26 mg (Entresto) 1 tab PO BID simvastatin 20 mg PO BEDTIME spironolactone 25 mg PO DAILY warfarin See Protocol 5mg tuesday/ 7.5mg x 5 days; Nursing Note INR: 2.3 in therapeutic range Medications and supplements reviewed- stated not sure if he took entresto this am - found one on the floor - hes going to wait until his pm dose - instead of risking the chance of doubling up. states since his passed he's lost his sense of purpose- enc to go to [facility] and meet friends, eat healthy and watch funny shows and laugh No changes in health, diet, medications, or supplements, Denies any signs and symptoms of bleeding or bruising or clotting. Bleeding, bruising, clotting discussed Nutritional guidance given Dose: 5MG X 1 DAYS/ 7.5MG X 6 DAYS F/U INR: 1 MONTH Patient verbalizes understanding of instructions given Anti-Coag Initial Assessment Social Hx Patient Tobacco Use Status: Never used Tobacco alcohol intake: never Alcohol intake frequency: does not drink Coding Level of Care Code Est Patient Level 1 Diagnoses Current use of anticoagulant therapy Z79.01 Assessment & Plan Assessment & Plan (1) Current use of anticoagulant therapy: Code(s): Z79.01 - long-term (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
== END 2023-10-13 08:48 | disposition home or self-care (01) ==
LOC: HO.ACS 08:22
PROVIDERS: PCP Internal Medicine; Visit Provider Internal Medicine
DX: Z79.01 Long term (current) use of anticoagulants (principal)

== ENCOUNTER → 2023-10-13 08:22 | Outpatient (BNVA) | payer MEDICARE, MEDICAID, SELFPAY | PROVIDERS: PCP Internal Medicine; Visit Provider Internal Medicine | DX: I48.20 Chronic atrial fibrillation, unspecified (principal); Z79.01 Long term (current) use of anticoagulants; Z51.81 Encounter for therapeutic drug level monitoring | CPT/HCPCS: 85610; 99211 ==

== ENCOUNTER 2023-11-10 08:16 | Outpatient (AMB) | payer MEDICARE, MEDICAID, SELFPAY ==
[2023-11-10 08:53] LABS: Prothrombin Time Whole Bld POC 27.9 sec (11.1-13.5); ~PT, ~INR - Anti Coag Clinic 2.3 (0.9-1.1)
--- NOTE | 2023-11-10 08:58 | MHC.OFFVISCO ---
Intake Intake Visit Reasons: Anticoagulation Allergies adenosine Allergy (Severe, Verified 11/10/23 08:46) cardiac, elevated BP, Stroke Gadolinium-Containing Contrast Medi Allergy (Severe, Verified 11/10/23 08:46) red eyes Iodinated Contrast Media [CONTRAST, IV] Allergy (Severe, Verified 11/10/23 08:46) Seizure carvedilol Allergy (Intermediate, Verified 11/10/23 08:46) disorientation erythromycin base Adverse Reaction (Unknown, Verified 11/10/23 08:46) Gut pain , Abdominal Pain, GI upset Medication List - Last Reconciled 11/10/23 by Tyesha Valente, JUAN RAMON amoxicillin 500 mg PO BID calcium carbonate 1,000 mg PO DAILY carboxymethylcellulose sodium 0.5% (Refresh Tears) 1 drp ophthalmic (eye) BID carvedilol phosphate ER (Coreg CR) 40 mg PO DAILY cholecalciferol (vitamin D3) (Vitamin D3) 10 mcg PO DAILY coenzyme Q10 (CoQ-10) 100 mg PO DAILY furosemide 20 mg PO DAILY loperamide 2 mg PO Q4H PRN lorazepam 0.5 mg PO BID magnesium 500 mg PO DAILY omeprazole 20 mg PO DAILY@0630 ondansetron HCl 4 mg PO Q6H PRN sacubitril-valsartan 24-26 mg (Entresto) 1 tab PO BID simvastatin 20 mg PO BEDTIME spironolactone 25 mg PO DAILY warfarin See Protocol 5mg tuesday/ 7.5mg x 5 days; Nursing Note INR: 2.3 in therapeutic range Medications and supplements reviewed No changes in health, diet, medications, or supplements, Denies any signs and symptoms of bleeding or bruising or clotting. 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
== END 2023-11-10 09:02 | disposition home or self-care (01) ==
LOC: HO.ACS 08:16
PROVIDERS: PCP Internal Medicine; Visit Provider Internal Medicine
DX: Z79.01 Long term (current) use of anticoagulants (principal)

== ENCOUNTER → 2023-11-10 08:16 | Outpatient (BNVA) | payer MEDICARE, MEDICAID, SELFPAY | PROVIDERS: PCP Internal Medicine; Visit Provider Internal Medicine | DX: I48.20 Chronic atrial fibrillation, unspecified (principal); Z79.01 Long term (current) use of anticoagulants; Z51.81 Encounter for therapeutic drug level monitoring | CPT/HCPCS: 85610; 99211 ==

== ENCOUNTER 2023-12-08 08:18 | Outpatient (AMB) | payer MEDICARE, MEDICAID, SELFPAY ==
--- NOTE | 2023-12-08 08:27 | MHC.OFFVISCO ---
Intake Intake Visit Reasons: Anticoagulation Allergies adenosine Allergy (Severe, Verified 12/08/23 08:23) cardiac, elevated BP, Stroke Gadolinium-Containing Contrast Medi Allergy (Severe, Verified 12/08/23 08:23) red eyes Iodinated Contrast Media [CONTRAST, IV] Allergy (Severe, Verified 12/08/23 08:23) Seizure carvedilol Allergy (Intermediate, Verified 12/08/23 08:23) disorientation erythromycin base Adverse Reaction (Unknown, Verified 12/08/23 08:23) Gut pain , Abdominal Pain, GI upset Medication List - Last Reconciled 12/08/23 by Christianne Dunn RN amoxicillin 500 mg PO BID calcium carbonate 1,000 mg PO DAILY carboxymethylcellulose sodium 0.5% (Refresh Tears) 1 drp ophthalmic (eye) BID carvedilol phosphate ER (Coreg CR) 40 mg PO DAILY cholecalciferol (vitamin D3) (Vitamin D3) 10 mcg PO DAILY coenzyme Q10 (CoQ-10) 100 mg PO DAILY furosemide 20 mg PO DAILY loperamide 2 mg PO Q4H PRN lorazepam 0.5 mg PO BID magnesium 500 mg PO DAILY omeprazole 20 mg PO DAILY@0630 ondansetron HCl 4 mg PO Q6H PRN sacubitril-valsartan 24-26 mg (Entresto) 1 tab PO BID simvastatin 20 mg PO BEDTIME spironolactone 25 mg PO DAILY warfarin See Protocol 5mg tuesday/ 7.5mg x 5 days; Nursing Note INR: 2.7- in therapeutic range of 2-3 Medications and supplements reviewed- no changes No changes in health, diet, medications, or supplements, Denies any signs and symptoms of bleeding or bruising or clotting. Bleeding, bruising, clotting discussed Nutritional guidance given Dose: 7.5mg x 6, 5mg x 1 F/U INR: 4 weeks Patient verbalizes understanding of instructions given pt amb with cane Anti-Coag Initial Assessment Social Hx Patient Tobacco Use Status: Never used Tobacco alcohol intake: never Alcohol intake frequency: does not drink Coding Level of Care Code Est Patient Level 1 Diagnoses Current use of anticoagulant therapy Z79.01 Results AMB INR Fingerstick AMB INR Fingerstick 2.7 Last Edit by Christianne Dunn RN on 12/08/23 08:28 Assessment & Plan Assessment & Plan (1) Current use of anticoagulant therapy: Code(s): 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
[2023-12-08 08:28] LABS: Prothrombin Time Whole Bld POC 32.3 sec (11.1-13.5); ~PT, ~INR - Anti Coag Clinic 2.7 (0.9-1.1)
== END 2023-12-08 08:32 | disposition home or self-care (01) ==
LOC: HO.ACS 08:18
PROVIDERS: PCP Internal Medicine; Visit Provider Internal Medicine
DX: Z79.01 Long term (current) use of anticoagulants (principal)

== ENCOUNTER → 2023-12-08 08:18 | Outpatient (BNVA) | payer MEDICARE, MEDICAID, SELFPAY | PROVIDERS: PCP Internal Medicine; Visit Provider Internal Medicine | DX: I48.20 Chronic atrial fibrillation, unspecified (principal); Z79.01 Long term (current) use of anticoagulants; Z51.81 Encounter for therapeutic drug level monitoring | CPT/HCPCS: 85610; 99211 ==

== ENCOUNTER 2024-01-05 08:29 | Outpatient (AMB) | payer MEDICARE, MEDICAID, SELFPAY ==
[2024-01-05 08:40] LABS: Prothrombin Time Whole Bld POC 25.7 sec (11.1-13.5); ~PT, ~INR - Anti Coag Clinic 2.1 (0.9-1.1)
--- NOTE | 2024-01-05 08:52 | MHC.OFFVISCO ---
Intake Intake Visit Reasons: Anticoagulation Allergies adenosine Allergy (Severe, Verified 01/05/24 08:34) cardiac, elevated BP, Stroke Gadolinium-Containing Contrast Medi Allergy (Severe, Verified 01/05/24 08:34) red eyes Iodinated Contrast Media [CONTRAST, IV] Allergy (Severe, Verified 01/05/24 08:34) Seizure carvedilol Allergy (Intermediate, Verified 01/05/24 08:34) disorientation erythromycin base Adverse Reaction (Unknown, Verified 01/05/24 08:34) Gut pain , Abdominal Pain, GI upset Medication List - Last Reconciled 01/05/24 by Evelyn Glasgow, JUAN RAMON amoxicillin 500 mg PO BID calcium carbonate 1,000 mg PO DAILY carboxymethylcellulose sodium 0.5% (Refresh Tears) 1 drp ophthalmic (eye) BID carvedilol phosphate ER (Coreg CR) 40 mg PO DAILY cholecalciferol (vitamin D3) (Vitamin D3) 10 mcg PO DAILY coenzyme Q10 (CoQ-10) 100 mg PO DAILY furosemide 20 mg PO DAILY loperamide 2 mg PO Q4H PRN lorazepam 0.5 mg PO BID magnesium 500 mg PO DAILY omeprazole 20 mg PO DAILY@0630 ondansetron HCl 4 mg PO Q6H PRN sacubitril-valsartan 24-26 mg (Entresto) 1 tab PO BID simvastatin 20 mg PO BEDTIME spironolactone 25 mg PO DAILY warfarin See Protocol 5mg tuesday/ 7.5mg x 5 days; Nursing Note INR: 2.1 in therapeutic range of 2-3 Medications and supplements reviewed:no changes Pt states he didn't feel well this morning. C/O lightheadedness off and on. BP 124/72, HR 72. Pt reassured after VS taken. States he has an appt with fusion juncture grinder 1 week. No changes in diet, medications, or supplements, Denies any signs and symptoms of bleeding or bruising or clotting. Bleeding, bruising, clotting discussed Nutritional guidance given Dose: 7.5mg X 6 days and 5mg X1 day F/U INR: 1 month Pt also states has to have 6 teeth removed and will ask fusion juncture grinder about anticoagulation this week. Dental extraction appt not yet made. 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
== END 2024-01-05 09:00 | disposition home or self-care (01) ==
LOC: HO.ACS 08:29
PROVIDERS: PCP Internal Medicine; Visit Provider Internal Medicine
DX: Z79.01 Long term (current) use of anticoagulants (principal)

== ENCOUNTER → 2024-01-05 08:29 | Outpatient (BNVA) | payer MEDICARE, MEDICAID, SELFPAY | PROVIDERS: PCP Internal Medicine; Visit Provider Internal Medicine | DX: I48.20 Chronic atrial fibrillation, unspecified (principal); Z51.81 Encounter for therapeutic drug level monitoring; Z79.01 Long term (current) use of anticoagulants | CPT/HCPCS: 85610; 99211 ==

== ENCOUNTER 2024-01-13 12:11 | Emergency (ER) | payer MEDICARE, MEDICAID, SELFPAY ==
--- NOTE | ~2024-01-13 | US_ITS ---
EXAMINATION: US VENOUS ULTRASOUND WITH DOPPLER LOWER EXTREMITY, LEFT CLINICAL INFORMATION: Left calf pain. Posterior knee pain. COMPARISON: None available. TECHNIQUE: Ultrasound of the deep veins is performed from the hip to the calf with compression sonography and color and pulse Doppler assessment. Spectral analysis with color-flow imaging is performed. FINDINGS: There is normal venous compression and respiratory variation and augmented flow. The visualized common femoral vein, superficial femoral vein, profunda femoral vein, popliteal vein, and the trifurcation region shows no evidence of deep venous thrombosis. There is a popliteal cyst measuring 3.6 x 0.9 x 2.4 cm. If the patient's symptoms persist, followup ultrasound in 5 days 7 days might be of value to exclude proximal propagation from a non-visualized calf vein. US/US venous duplex LE LT IMPRESSION: No DVT demonstrated in the left lower extremity. There is a left popliteal cyst measuring 3.6 x 0.9 x 2.4 cm.
[2024-01-13 12:40] VITALS: BP 116/74; PULSE 78; RESP 18; TEMP 36.4; O2SAT 95; BMI 30.4
--- NOTE | 2024-01-13 12:40 | ED.GENADULT ---
HPI - General Adult General Chief complaint: Extremity Problem Stated complaint: legs to be evaluated, sent by cardio dr Time Seen by Provider: 01/13/24 15:21 Source: patient Mode of arrival: ambulatory Limitations: no limitations History of Present Illness HPI narrative: patient is a 78-year-old male presents to the emergency department for evaluation of pain to the posterior knee and left calf, with reports of lumpy swelling , which he states has been present for a few months. On review, his initial triage note states it has been for 2 weeks. Was at his [facility] office today and discussed this symptom and was referred to the emergency department for further evaluation. He states he is anticoagulated with warfarin due to his history of atrial fibrillation and states he has been compliant. He denies any overt injury, redness, warmth, numbness tingling or cold sensation to the foot. Related Data Home Medications ?Medication ?Instructions ?Recorded ?Confirmed lorazepam 0.5 mg tablet 0.5 mg PO BID 11/14/20 01/05/24 omeprazole 20 mg capsule,delayed 20 mg PO DAILY@0630 11/14/20 01/05/24 release coenzyme Q10 100 mg capsule 100 mg PO DAILY 04/14/21 01/05/24 (CoQ-10) carvedilol phosphate 40 mg 40 mg PO DAILY 11/04/22 01/05/24 capsule,[id number] multiphase (Coreg CR) calcium carbonate 1,000 mg PO DAILY 11/30/22 01/05/24 carboxymethylcellulose sodium 0.5 1 drp ophthalmic (eye) BID 11/30/22 01/05/24 % eye drops (Refresh Tears) cholecalciferol (vitamin D3) 10 10 mcg PO DAILY 11/30/22 01/05/24 mcg (400 unit) tablet (Vitamin D3) magnesium 250 mg tablet 500 mg PO DAILY 11/30/22 01/05/24 warfarin 2.5 mg tablet 2.5 mg PO .COMPLEX 12/02/22 01/05/24 furosemide 20 mg tablet 20 mg PO DAILY 01/06/23 01/05/24 simvastatin 40 mg tablet 20 mg PO BEDTIME 05/19/23 01/05/24 spironolactone 25 mg tablet 25 mg PO DAILY 05/19/23 01/05/24 amoxicillin 500 mg tablet 500 mg PO BID 06/24/23 01/05/24 Previous Rx's ?Medication ?Instructions ?Recorded sacubitril 24 mg-valsartan 26 mg 1 tab PO BID #60 tabs 12/01/22 tablet (Entresto) loperamide 2 mg tablet 2 mg PO Q4H PRN loose stool #14 01/09/23 tabs ondansetron HCl 4 mg tablet 4 mg PO Q6H PRN nausea and 01/09/23 vomiting #14 tabs Allergies Allergy/AdvReac Type Severity Reaction Status Date / Time adenosine Allergy Severe cardiac, Verified 01/13/24 12:44 elevated BP, Stroke Gadolinium-Containing Allergy Severe red eyes Verified 01/13/24 12:44 Contrast Medi Iodinated Contrast Media Allergy Severe Seizure Verified 01/13/24 12:44 [CONTRAST, IV] carvedilol Allergy Intermediate disorientat Verified 01/13/24 12:44 ion erythromycin base AdvReac Unknown Gut Verified 01/13/24 12:44 pain , Abdominal Pain, GI upset Review of Systems Review of Systems: Yes all other systems are reviewed and are negative [facility] Past Medical History Attestation statement: The following information was validated with the patient. Source: old records reviewed Medical History Anxiety Myocardial infarct, old CHF (congestive heart failure) CVA (cerebral vascular accident) A-fib Surgical History History of appendectomy Social History Social History Household Members: None Housing: House Do you presently have visiting nurse or other home services: Yes Alcohol intake: never Patient Tobacco Use Status: Never used Tobacco Advance Directives: No Advance Directives Information Provided: No service: Yes Current occupational status: disabled Physical Exam ED Vital Signs: Vital Signs - 24 hr 01/13/24 12:40 01/13/24 16:07 Temperature 97.6 F 97.9 F Pulse Rate 78 79 Respiratory Rate 18 20 Blood Pressure 116/74 122/76 Pulse Oximetry 95 97 Oxygen Delivery Method Room Air Room Air BMI result Body Mass Index 30.4 Appearance: Alert.?Oriented to person, place and time. No acute distress.?Normal affect. Neck: Normal inspection.? Neck supple.?? CVS: Heart sounds normal. Normal heart rate and rhythm.? Pulses normal.?? Respiratory: No respiratory distress.? Lung sounds clear to auscultation bilaterally?? Abdomen: Soft and non-tender. Normoactive bowel sounds. Skin: Skin warm and dry.? Normal skin color.? Extremities: No lower extremity edema.? Positive left calf ttp, palpable superficial lumps to the proximal posterior calf. Knee joint without laxity erythema or warmth. No rashes or lesions. 2+ DP/PT pulse bilaterally. Neuro: Moves all extremities spontaneously. Sensation intact bilaterally. Ambulates with normal steady gait. Course Course Course Narrative: This is an RME: Additional HPI, ROS, PE not included below will be deferred to primary provider. RME assessment and note performed by: Shae Fernandez PA-C This is a [id number]-wfi-male, with a hx of CKD, paroxysmal atrial fibrillation on warfarin, diabetes, and CHF, who presents to the ER with a complaint of left calf pain and posterior knee pain x 2 weeks. Plan: Labs, US Medical Decision Making Medical Decision Making [facility] Narrative: Patient is a 78-year-old male with past medical history of atrial fibrillation on long-term anticoagulation with warfarin, CKD, type 2 diabetes, CVA, CHF who presents to the emergency department for evaluation of left lower extremity knee/ calf pain as per HPI. Overall he appears well, nontoxic, afebrile. There is no evidence of rashes or lesions. No erythema or warmth to suggest cellulitis or acute infection. Unlikely to be septic arthritis. He does have calf tenderness upon palpation, ultrasound was obtained to evaluate for further pathology including Campa cyst/DVT; popliteal cyst present, no evidence of DVT. On exam does not have evidence of compartment syndrome. reviewed serum labs obtained prior to my assumption of care, no leukocytosis, no anemia, very mild thrombocytopenia which has been seen on prior labs. INR of 2.0, he follows with [facility] [place] [facility], goal INR of 2-3 he reports. no electrolyte derangement. Baseline renal function. Differential Diagnosis Differential Diagnoses: The differential diagnosis associated with the presentation includes ( Muscular strain, DVT, Campa cyst, osteoarthritis, superficial phlebitis) Admission/Observation Consideration of admission/observation: Escalation of care including admission/observation considered Lab Data [facility] Lab Attestation statement: I reviewed the patient's lab results. ( see narrative above) 01/13/24 12:57 01/13/24 12:57 Labs: Lab Results 01/13/24 Range/Units 12:57 WBC 7.9 (4.8-10.8) X10*3/uL RBC 4.85 (4.60-5.80) X10*6/uL Hgb 15.1 (14.0-18.0) g/dl Hct 43.1 (42.0-52.0) % MCV 88.9 (80.0-98.0) fL MCH 31.1 (27.0-33.0) pg MCHC 35.0 (31.0-36.0) g/dl RDW 13.0 (11.0-16.0) % Plt Count 159 L (160-400) X10*3/uL MPV 10.3 (9.4-12.4) fL Immature Gran % (Auto) 0.4 (0.0-0.4) % Neut % (Auto) 53.7 (45-73) % Lymph % (Auto) 36.9 (20-40) % [place]han % (Auto) 7.6 (2-11) % Eos % (Auto) 0.9 (0-4) % Baso % (Auto) 0.5 (0-2) % Lymph # (Auto) 2.9 (1.2-4.9) X10*3/uL [place]han # (Auto) 0.6 (0.1-1.2) X10*3/uL Eos # (Auto) 0.1 (0.0-0.4) X10*3/uL Baso # (Auto) 0.0 (0.0-0.2) X10*3/uL Abs Immat Gran (auto) 0.03 (0.00-0.03) X10*3/uL Absolute Neuts (auto) 4.3 (2.0-8.3) x10*3/uL Absolute Nucleated RBC 0.000 (0.0-0.012) X10*3/uL Nucleated RBC % (auto) 0.0 (0.0-0.2) /100WBC PT 23.8 H (11.1-13.3) SEC INR 2.0 H (0.9-1.1) APTT 38.4 H (26.0-36.8) SEC Sodium 138 (135-145) mmol/L Potassium 3.8 (3.3-5.1) mmol/L Chloride 105 (96-108) mmol/L Carbon Dioxide 25 (22-29) mmol/L Anion Gap 12 (12-20) BUN 23 H (9-16) mg/dL Creatinine 1.02 (0.5-1.4) mg/dL Estim Creat Clear Calc 66.3 Estimated GFR > 60 Random Glucose 131 H (60-115) mg/dL Calcium 9.6 (8.4-10.2) mg/dL Total Bilirubin 0.8 (0.0-1.0) mg/dL Direct Bilirubin 0.3 (0.0-0.5) mg/dL AST 18 (5-37) U/L ALT 16 (0-40) U/L Alkaline Phosphatase 72 (39-117) U/L B-Natriuretic Peptide 246 H (<100) pg/mL Total Protein 6.9 (6.5-8.0) g/dL Albumin 4.0 (3.5-5.0) g/dL Independent Interpretation I performed an independent interpretation of an: Ultrasound ( no DVT) Radiology Impression Discussion of test interpretation with radiology: I have reviewed the radiologist's reading. Radiologist Impression: US/US venous duplex LE LT IMPRESSION: No DVT demonstrated in the left lower extremity. There is a left popliteal cyst measuring 3.6 x 0.9 x 2.4 cm. External Record Review External record reviewed: Outpatient record Prescription Management I considered prescription management with: Pain Medication Discharge Plan Discharge Clinical Impression: Campa's cyst Qualifiers: Laterality: left Qualified Code(s): M71.22 - Synovial cyst of popliteal space [Campa], left knee Patient Disposition: Home, Self-Care Instructions: Bakers Cyst (ED) Additional Instructions: You can take acetaminophen/Tylenol 500 mg, 2 tablets (1,000mg) every 4-6 hours as needed for pain, but not to exceed 3 doses daily (3,000mg).? if you develop fever, severe worsening pain, redness, increased swelling, this should be re-evaluated. Be sure to rest, apply ice for 10-15 minutes 3-4 times daily for the next few days, use elastic bandage to the knee as provided to help to decrease swelling/pain, elevate your leg above the level of your chest as often as you can. Follow-up with your primary care provider, they may consider a course of physical therapy if your symptoms do not improve. Prescriptions: No Action coenzyme Q10 [CoQ-10] 100 mg Capsule 100 mg PO DAILY calcium carbonate 500 mg calcium (1,250 mg) Tablet 1,000 mg PO DAILY magnesium 250 mg Tablet 500 mg PO DAILY cholecalciferol (vitamin D3) [Vitamin D3] 10 mcg (400 unit) Tablet 10 mcg PO DAILY carboxymethylcellulose sodium [Refresh Tears] 0.5 % Drops 1 drp OPHTHALMIC (EYE) BID Entresto 24-26 mg tablet 1 tab PO BID Qty: 60 0RF warfarin 2.5 mg tablet 2.5 mg PO .COMPLEX Protocol: Dose Management Condition: Tuesday (Week One) Dose/Route: 7.5 mg Instruction: 3 x 2.5 mg tablets Condition: Tuesday Dose/Route: 7.5 mg Instruction: 3 x 2.5 mg tablets Condition: Tuesday Dose/Route: 7.5 mg Instruction: 3 x 2.5 mg tablets Condition: Tuesday Dose/Route: 5 mg Instruction: 2 x 2.5 mg tablets Condition: Dose/Route: 7.5 mg Instruction: 3 x 2.5 mg tablets Condition: Tuesday Dose/Route: 7.5 mg Instruction: 3 x 2.5 mg tablets Condition: Tuesday Dose/Route: 7.5 mg Instruction: 3 x 2.5 mg tablets Condition: Tuesday (Week Two) Dose/Route: 7.5 mg Instruction: 3 x 2.5 mg tablets Condition: Tuesday Dose/Route: 7.5 mg Instruction: 3 x 2.5 mg tablets Condition: Tuesday Dose/Route: 7.5 mg Instruction: 3 x 2.5 mg tablets Condition: Tuesday Dose/Route: 5 mg Instruction: 2 x 2.5 mg tablets Condition: Dose/Route: 7.5 mg Instruction: 3 x 2.5 mg tablets Condition: Tuesday Dose/Route: 7.5 mg Instruction: 3 x 2.5 mg tablets Condition: Tuesday Dose/Route: 7.5 mg Instruction: 3 x 2.5 mg tablets Protocol Text: Adjustment Start Date: 01/05/24 INR Value: 2.1 INR Date: 01/05/24 Recheck Date: 02/02/24 Rx Instructions: 5mg tuesday/ 7.5mg x 5 days; loperamide 2 mg tablet 2 mg PO Q4H PRN (Reason: loose stool) Qty: 14 0RF Rx Instructions: administer after each loose stool until symptoms controlled; do not exceed 8 mg per 24 hrs ondansetron HCl 4 mg tablet 4 mg PO Q6H PRN (Reason: nausea and vomiting) Qty: 14 0RF lorazepam 0.5 mg tablet 0.5 mg PO BID omeprazole 20 mg capsule,delayed release(DR/EC) 20 mg PO DAILY@0630 carvedilol phosphate [Coreg CR] 40 mg capsule, ER multiphase 24 hr 40 mg PO DAILY Rx Instructions: must administer with a meal/food furosemide 20 mg tablet 20 mg PO DAILY amoxicillin 500 mg tablet 500 mg PO BID Patient Comments: PT STATES HE IS ONLY TAKING IT BID INSTEAD OF TID;INSTEAD OF 7 DAYS HE WILL BE ON IT 10-11 DAYS spironolactone 25 mg tablet 25 mg PO DAILY simvastatin 40 mg tablet 20 mg PO BEDTIME Referrals: Yonathan Womack MD [Primary Care Provider] - Print Language: Spanish
[2024-01-13 13:06] LABS: MANUAL DIFF FLAG NO
[2024-01-13 13:07] LABS: Basophils Percent Auto 0.5 % (0-2); Eosinophils Absolute Auto 0.1 X10*3/uL (0.0-0.4); Eosinophils Percent Auto 0.9 % (0-4); Hematocrit 43.1 % (42.0-52.0); Hemoglobin 15.1 g/dl (14.0-18.0); Imm Gran Abs Auto 0.03 X10*3/uL (0.00-0.03); Imm Gran Pct Auto 0.4 % (0.0-0.4); Lymphocytes Absolute Auto 2.9 X10*3/uL (1.2-4.9); Lymphocytes Percent Auto 36.9 % (20-40); Mean Corpuscular Hemoglobin 31.1 pg (27.0-33.0); Mean Corpuscular Volume 88.9 fL (80.0-98.0); Mean Platelet Volume 10.3 fL (9.4-12.4); Monocytes Absolute Auto 0.6 X10*3/uL (0.1-1.2); Monocytes Percent Auto 7.6 % (2-11); Neutrophils Absolute Auto 4.3 x10*3/uL (2.0-8.3); Neutrophils Percent Auto 53.7 % (45-73); Platelet Count 159 X10*3/uL (160-400); Red Blood Count 4.85 X10*6/uL (4.60-5.80); White Blood Count 7.9 X10*3/uL (4.8-10.8)
[2024-01-13 13:14] LABS: Prothrombin Time 23.8 SEC (11.1-13.3)
[2024-01-13 13:16] LABS: Partial Thromboplastin Time 38.4 SEC (26.0-36.8)
[2024-01-13 13:22] LABS: Alanine Aminotransferase 16 U/L (0-40); Alkaline Phosphatase 72 U/L (39-117); Anion Gap 12 (12-20); Aspartate Amino Transferase 18 U/L (5-37); Bilirubin Direct 0.3 mg/dL (0.0-0.5); Bilirubin Total 0.8 mg/dL (0.0-1.0); Blood Urea Nitrogen 23 mg/dL (9-16); Calcium 9.6 mg/dL (8.4-10.2); Carbon Dioxide 25 mmol/L (22-29); Chloride 105 mmol/L (96-108); Creatinine Clr Calc Pharmacy 66.3; Estimated Glomerular Filt Rate > 60; Glucose Random 131 mg/dL (60-115); Potassium 3.8 mmol/L (3.3-5.1); Sodium 138 mmol/L (135-145); Total Protein 6.9 g/dL (6.5-8.0)
[2024-01-13 13:27] LABS: B Type Natriuretic Peptide 246 pg/mL (<100)
--- NOTE | 2024-01-13 16:00 | PC.NURSE ---
pt returned from US, awaiting results/provider
[2024-01-13 16:07] VITALS: BP 122/76; PULSE 79; RESP 20; TEMP 36.6; O2SAT 97
--- NOTE | 2024-01-13 17:53 | PC.NURSE ---
patient a&ox3, vss, LLE carmen wrapped per request of provider, pt understands all discharge instructions and will follow up with PCP. Brother to give ride home.
[2024-01-13 17:54] VITALS: BP 122/76; PULSE 79; RESP 20; TEMP 36.6; O2SAT 97
== END 2024-01-13 17:55 | disposition home or self-care (01) ==
PROVIDERS: Physician Assistant Medical; Emergency Provider Emergency Medicine; PCP Internal Medicine
DX: M71.22 Synovial cyst of popliteal space [Baker], left knee (principal); M25.562 Pain in left knee; M79.605 Pain in left leg; I48.91 Unspecified atrial fibrillation; E11.22 Type 2 diabetes mellitus with diabetic chronic kidney disease; N18.9 Chronic kidney disease, unspecified; I50.9 Heart failure, unspecified; Z79.01 Long term (current) use of anticoagulants
CPT/HCPCS: 36415; 80048; 80076; 83880; 85025; 85610; 85730; 93971; 99283; 99284

== ENCOUNTER 2024-02-02 08:03 | Outpatient (AMB) | payer MEDICARE, MEDICAID, SELFPAY ==
--- NOTE | 2024-02-02 08:45 | MHC.OFFVISCO ---
Intake Intake Visit Reasons: Anticoagulation Allergies adenosine Allergy (Severe, Verified 02/02/24 08:40) cardiac, elevated BP, Stroke Gadolinium-Containing Contrast Medi Allergy (Severe, Verified 02/02/24 08:40) red eyes Iodinated Contrast Media [CONTRAST, IV] Allergy (Severe, Verified 02/02/24 08:40) Seizure carvedilol Allergy (Intermediate, Verified 02/02/24 08:40) disorientation erythromycin base Adverse Reaction (Unknown, Verified 02/02/24 08:40) Gut pain , Abdominal Pain, GI upset Medication List - Last Reconciled 02/02/24 by Christianne Dunn RN amoxicillin 500 mg PO BID calcium carbonate 1,000 mg PO DAILY carboxymethylcellulose sodium 0.5% (Refresh Tears) 1 drp ophthalmic (eye) BID carvedilol phosphate ER (Coreg CR) 40 mg PO DAILY cholecalciferol (vitamin D3) (Vitamin D3) 10 mcg PO DAILY coenzyme Q10 (CoQ-10) 100 mg PO DAILY furosemide 20 mg PO DAILY loperamide 2 mg PO Q4H PRN lorazepam 0.5 mg PO BID magnesium 500 mg PO DAILY omeprazole 20 mg PO DAILY@0630 ondansetron HCl 4 mg PO Q6H PRN sacubitril-valsartan 24-26 mg (Entresto) 1 tab PO BID simvastatin 20 mg PO BEDTIME spironolactone 25 mg PO DAILY warfarin See Protocol 5mg tuesday/ 7.5mg x 5 days; Nursing Note INR: 2.0- in therapeutic range of 2-3 Medications and supplements reviewed- no changes No changes in health, diet, medications, or supplements, Denies any signs and symptoms of bleeding or bruising or clotting. Bleeding, bruising, clotting discussed Nutritional guidance given - eat reds to raise, no greens for 2-3 days food list reviewed and provided Dose: 7.5mg x 6, 5mg x 1 F/U INR: 2 weeks Patient verbalizes understanding of instructions given pt states per cardiology he has prolonged heart 'skips', he states may need a cardiac cath in the future will let acs know of date if nec Anti-Coag Initial Assessment Social Hx Patient Tobacco Use Status: Never used Tobacco alcohol intake: never Alcohol intake frequency: does not drink Coding Level of Care Code Est Patient Level 1 Diagnoses Current use of anticoagulant therapy Z79.01 Assessment & Plan Assessment & Plan (1) Current use of anticoagulant therapy: Code(s): 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
[2024-02-02 08:47] LABS: Prothrombin Time Whole Bld POC 24.3 sec (11.1-13.5)
== END 2024-02-02 08:55 | disposition home or self-care (01) ==
LOC: HO.ACS 08:03
PROVIDERS: PCP Internal Medicine; Visit Provider Internal Medicine
DX: Z79.01 Long term (current) use of anticoagulants (principal)

== ENCOUNTER → 2024-02-02 08:03 | Outpatient (BNVA) | payer MEDICARE, MEDICAID, SELFPAY | PROVIDERS: PCP Internal Medicine; Visit Provider Internal Medicine | DX: I48.20 Chronic atrial fibrillation, unspecified (principal); Z79.01 Long term (current) use of anticoagulants; Z51.81 Encounter for therapeutic drug level monitoring | CPT/HCPCS: 85610; 99211 ==

== ENCOUNTER 2024-02-21 09:16 | Outpatient (AMB) | payer MEDICARE, MEDICAID, SELFPAY ==
[2024-02-21 10:00] LABS: Prothrombin Time Whole Bld POC 30.9 sec (11.1-13.5); ~PT, ~INR - Anti Coag Clinic 2.6 (0.9-1.1)
--- NOTE | 2024-02-21 10:07 | MHC.OFFVISCO ---
Intake Intake Visit Reasons: Anticoagulation Allergies adenosine Allergy (Severe, Verified 02/21/24 09:51) cardiac, elevated BP, Stroke Gadolinium-Containing Contrast Medi Allergy (Severe, Verified 02/21/24 09:51) red eyes Iodinated Contrast Media [CONTRAST, IV] Allergy (Severe, Verified 02/21/24 09:51) Seizure carvedilol Allergy (Intermediate, Verified 02/21/24 09:51) disorientation erythromycin base Adverse Reaction (Unknown, Verified 02/21/24 09:51) Gut pain , Abdominal Pain, GI upset Medication List - Last Reconciled 02/21/24 by Evelyn Glasgow, JUAN RAMON amoxicillin 500 mg PO BID calcium carbonate 1,000 mg PO DAILY carboxymethylcellulose sodium 0.5% (Refresh Tears) 1 drp ophthalmic (eye) BID carvedilol phosphate ER (Coreg CR) 40 mg PO DAILY cholecalciferol (vitamin D3) (Vitamin D3) 10 mcg PO DAILY coenzyme Q10 (CoQ-10) 100 mg PO DAILY furosemide 20 mg PO DAILY loperamide 2 mg PO Q4H PRN lorazepam 0.5 mg PO BID magnesium 500 mg PO DAILY omeprazole 20 mg PO DAILY@0630 ondansetron HCl 4 mg PO Q6H PRN sacubitril-valsartan 24-26 mg (Entresto) 1 tab PO BID simvastatin 20 mg PO BEDTIME spironolactone 25 mg PO DAILY warfarin See Protocol 5mg tuesday/ 7.5mg x 5 days; Nursing Note INR: 2.6 in therapeutic range of 2-3 Medications and supplements reviewed No changes in health, diet, medications, or supplements, Denies any signs and symptoms of bleeding or bruising or clotting. 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
== END 2024-02-21 10:10 | disposition home or self-care (01) ==
LOC: HO.ACS 09:16
PROVIDERS: PCP Internal Medicine; Visit Provider Internal Medicine
DX: Z79.01 Long term (current) use of anticoagulants (principal)

== ENCOUNTER → 2024-02-21 09:16 | Outpatient (BNVA) | payer MEDICARE, MEDICAID, SELFPAY | PROVIDERS: PCP Internal Medicine; Visit Provider Internal Medicine | DX: I48.20 Chronic atrial fibrillation, unspecified (principal); Z51.81 Encounter for therapeutic drug level monitoring; Z79.01 Long term (current) use of anticoagulants | CPT/HCPCS: 85610; 99211 ==

== ENCOUNTER 2024-03-20 09:25 | Outpatient (AMB) | payer MEDICARE, MEDICAID, SELFPAY ==
--- NOTE | 2024-03-20 09:29 | MHC.OFFVISCO ---
Intake Intake Visit Reasons: Anticoagulation Allergies adenosine Allergy (Severe, Verified 03/20/24 09:25) cardiac, elevated BP, Stroke Gadolinium-Containing Contrast Medi Allergy (Severe, Verified 03/20/24 09:25) red eyes Iodinated Contrast Media [CONTRAST, IV] Allergy (Severe, Verified 03/20/24 09:25) Seizure carvedilol Allergy (Intermediate, Verified 03/20/24 09:25) disorientation erythromycin base Adverse Reaction (Unknown, Verified 03/20/24 09:25) Gut pain , Abdominal Pain, GI upset Medication List - Last Reconciled 03/20/24 by Christianne Dunn RN amoxicillin 500 mg PO BID calcium carbonate 1,000 mg PO DAILY carboxymethylcellulose sodium 0.5% (Refresh Tears) 1 drp ophthalmic (eye) BID carvedilol phosphate ER (Coreg CR) 40 mg PO DAILY cholecalciferol (vitamin D3) (Vitamin D3) 10 mcg PO DAILY coenzyme Q10 (CoQ-10) 100 mg PO DAILY furosemide 20 mg PO DAILY loperamide 2 mg PO Q4H PRN lorazepam 0.5 mg PO BID magnesium 500 mg PO DAILY omeprazole 20 mg PO DAILY@0630 ondansetron HCl 4 mg PO Q6H PRN sacubitril-valsartan 24-26 mg (Entresto) 1 tab PO BID simvastatin 20 mg PO BEDTIME spironolactone 25 mg PO DAILY warfarin See Protocol 5mg tuesday/ 7.5mg x 5 days; Nursing Note INR: 2.2 in therapeutic range of 2-3 Medications and supplements reviewed No changes in health, diet, medications, or supplements, Denies any signs and symptoms of bleeding or bruising or clotting. 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 pt to acs in wheelchair, pt states incresed diff with amb- uses cane or walker Anti-Coag Initial Assessment Social Hx Patient Tobacco Use Status: Never used Tobacco alcohol intake: never Alcohol intake frequency: does not drink Coding Level of Care Code Est Patient Level 1 Diagnoses Current use of anticoagulant therapy Z79.01 Results AMB INR Fingerstick AMB INR Fingerstick 2.2 Last Edit by Christianne Dunn RN on 03/20/24 09:30 Assessment & Plan Assessment & Plan (1) Current use of anticoagulant therapy: Code(s): 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
[2024-03-20 09:39] LABS: Prothrombin Time Whole Bld POC 26.6 sec (11.1-13.5); ~PT, ~INR - Anti Coag Clinic 2.2 (0.9-1.1)
== END 2024-03-20 09:37 | disposition home or self-care (01) ==
LOC: HO.ACS 09:25
PROVIDERS: PCP Internal Medicine; Visit Provider Internal Medicine
DX: Z79.01 Long term (current) use of anticoagulants (principal)

== ENCOUNTER → 2024-03-20 09:25 | Outpatient (BNVA) | payer MEDICARE, MEDICAID, SELFPAY | PROVIDERS: PCP Internal Medicine; Visit Provider Internal Medicine | DX: I48.20 Chronic atrial fibrillation, unspecified (principal); Z79.01 Long term (current) use of anticoagulants; Z51.81 Encounter for therapeutic drug level monitoring | CPT/HCPCS: 85610; 99211 ==

== ENCOUNTER 2024-03-22 10:19 | Outpatient (AMB) | payer MEDICARE, MEDICAID, SELFPAY ==
--- NOTE | 2024-03-22 11:03 | MHC.OFFVIS ---
Vital Signs 03/22/24 11:10 Height 5 ft 8 in Weight 200 lb BMI 30.4 Intake Visit Reasons: New Pt - Left knee pain Intake Note: Russell is a 79 year old male who presents today for as a new patient for a evaluation of his left knee pain. Patient reports ongoing pain for a couple months. He states that he went to the ED and they found a gillette cyst in his left knee. His pain is ongoing and all over his knee. Pain is worse when walking, standing and sitting. Allergies adenosine Allergy (Severe, Verified 03/22/24 11:09) cardiac, elevated BP, Stroke Gadolinium-Containing Contrast Medi Allergy (Severe, Verified 03/22/24 11:09) red eyes Iodinated Contrast Media [CONTRAST, IV] Allergy (Severe, Verified 03/22/24 11:09) Seizure carvedilol Allergy (Intermediate, Verified 03/22/24 11:09) disorientation erythromycin base Adverse Reaction (Unknown, Verified 03/22/24 11:09) Gut pain , Abdominal Pain, GI upset HPI HPI New Pt - Left knee pain: Details: 79-year-old male who presents in the office today, as a new patient, for an evaluation of left knee pain. The patient presented to the?ED on 01/13/24 with a complaint of posterior left knee and left calf pain. He also reports a ?lumpy swelling? present for a few months. An ultrasound of the left lower extremity was obtained. ? ? While in the office today, the patient reports ongoing pain for a couple of months. He states he was seen in the ED and diagnosed with a gillette?s cyst in the left knee. He states the pain is worse when ambulating, standing, and sitting. ? ? Patient also reports pain in the left shoulder.? ? Patient confirms a stroke that affects his modalities on the right side of his body.? ? Patient confirms being on an anticoagulant warfarin. ? ? Patient has a medical history of paroxysmal atrial fibrillation currently taking warfarin, CKD, CVA, CHF and diabetes mellitus type 2. ? ? A1c of 5.7% as of 09/13/23.? PFSH Medical History Anxiety Myocardial infarct, old CHF (congestive heart failure) CVA (cerebral vascular accident) A-fib Surgical History History of appendectomy Social History Household Members: None Housing: House Do you presently have visiting nurse or other home services: Yes Alcohol intake: never Patient Tobacco Use Status: Never used Tobacco service: Yes Current occupational status: disabled Review of Systems Const All systems reviewed & are unremarkable except as noted in HPI and below Physical Exam Vital Signs: BMI result Body Mass Index 30.4 Const General: cooperative and no acute distress Orientation/consciousness: patient oriented x3 Resp Effort & Inspection: normal respiratory effort and able to speak in complete sentences Cardio Peripheral pulses: Peripheral pulses 2+ throughout Skin General skin exam: no rashes or lesions noted Neuro General: patient oriented x3 Extrem Other: Left knee: Normal to inspection. No ecchymosis, erythema, or joint effusion. No tenderness to palpation along the medial or lateral joint lines. Full knee extension and flexion. Crepitus felt with ROM. NVI.? ? Assessment & Plan Assessment & Plan (1) Patellofemoral arthritis of left knee: Code(s): M17.12 - Unilateral primary osteoarthritis, left knee Category: Medical (2) Paroxysmal atrial fibrillation: Code(s): I48.0 - Paroxysmal atrial fibrillation Category: Medical (3) CKD (chronic kidney disease) stage 3, GFR 30-59 ml/min: Code(s): N18.30 - Chronic kidney disease, stage 3 unspecified Category: Medical (4) Diabetes type 2, controlled: Code(s): E11.9 - Type 2 diabetes mellitus without complications Category: Medical (5) Current use of anticoagulant therapy: Comment: Warfarin Code(s): Z79.01 - nursing home (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 (6) History of stroke with current residual effects: Comment: Right-sided weakness Code(s): I69.30 - Unspecified sequelae of cerebral infarction Category: Medical Plan Mr. Ni is a 79-year-old male who presents in the office today, as a new patient, for an evaluation of left knee pain. The patient presented to the?ED on 01/13/24 with a complaint of posterior left knee and left calf pain. He also reports a ?lumpy swelling? present for a few months. An ultrasound of the left lower extremity was obtained. ? ? While in the office today, the patient reports ongoing pain for a couple of months. He states he was seen in the ED and diagnosed with a gillette?s cyst in the left knee. He states the pain is worse when ambulating, standing, and sitting. ? ? Patient also reports pain in the left shoulder.? ? Patient confirms a stroke that affects his modalities on the right side of his body.? ? Patient confirms being on an anticoagulant warfarin. ? ? Patient has a medical history of paroxysmal atrial fibrillation currently taking warfarin, CKD, CVA, CHF and diabetes mellitus type 2. ? ? A1c of 5.7% as of 09/13/23.? ? We discussed the role of cortisone injections and gel injections. The patient states his symptoms are manageable in the office today and wants to defer the cortisone injection. He states he does not want any increase in pain. We discussed the use of Tylenol and ice to help with pain and any edema. He is unable to take NSAIDs due to being on blood thinner. The patient was given my business card to reach out to the office should he wish to move forward with a cortisone injection. Follow-up will be PRN, or sooner if needed. ? ? X-rays of the left knee which were obtained while in the office today and were reviewed by me, Farzana Sinclair PA-C, revealed patellafemoral arthritis.? ? Ultrasound of the left lower extremity, obtained on 01/13/24, revealed:? 1.No DVT demonstrated in the left lower extremity.? 2.There is a left popliteal cyst measuring 3.6 x 0.9 x 2.4 cm.? Orders: Orders XR knee LT 3V Today M25.569 - Pain in unspecified knee Patient Instructions: Scribed by Morelia Farah medical superintendent, for Farzana Sinclair PA-C on 03/22/2024 at 10:22 am, EST.? Coding Level of Care Code New Pt Level 4 (26095) Diagnoses Patellofemoral arthritis of left knee M17.12 Paroxysmal atrial fibrillation I48.0 CKD (chronic kidney disease) stage 3, GFR 30-59 ml/min N18.30 Diabetes type 2, controlled E11.9 Current use of anticoagulant therapy Z79.01 History of stroke with current residual effects I69.30
[2024-03-22 11:10] VITALS: BMI 30.4
== END 2024-03-22 11:25 | disposition home or self-care (01) ==
PROVIDERS: PCP Internal Medicine; Visit Provider Physician Assistant
DX: M17.12 Unilateral primary osteoarthritis, left knee (principal); I48.0 Paroxysmal atrial fibrillation; N18.30 Chronic kidney disease, stage 3 unspecified; E11.9 Type 2 diabetes mellitus without complications; Z79.01 Long term (current) use of anticoagulants; I69.30 Unspecified sequelae of cerebral infarction
CPT/HCPCS: 99203

== ENCOUNTER 2024-03-22 13:03 | Outpatient (REF) | payer MEDICARE, MEDICAID, SELFPAY ==
--- NOTE | ~2024-03-22 | XR_ITS ---
EXAMINATION: XR KNEE, LEFT CLINICAL INFORMATION: Pain. COMPARISON: None available. TECHNIQUE: AP standing view of bilateral knees and 2 views of the left knee. FINDINGS: Right knee: Mild narrowing of the medial compartment with mild degenerative changes. Left knee: Moderate narrowing of the medial compartment. Tiny tricompartmental osteophytes. Small joint effusion. Narrowing of the patellofemoral compartment XR/XR knee LT 3V IMPRESSION: Mild degenerative changes in the bilateral knees.
== END 2024-03-22 13:04 | disposition home or self-care (01) ==
LOC: HO.HOSX 13:03
PROVIDERS: Visit Provider Physician Assistant
DX: M17.12 Unilateral primary osteoarthritis, left knee (principal); I48.0 Paroxysmal atrial fibrillation; E11.22 Type 2 diabetes mellitus with diabetic chronic kidney disease; N18.30 Chronic kidney disease, stage 3 unspecified; I69.30 Unspecified sequelae of cerebral infarction; Z79.01 Long term (current) use of anticoagulants
CPT/HCPCS: 73562; 99202

== ENCOUNTER 2024-04-02 09:15 | Outpatient (REF) | payer MEDICARE, MEDICAID, SELFPAY ==
[2024-04-02 10:25] LABS: Anion Gap 11 (12-20); Blood Urea Nitrogen 22 mg/dL (9-16); Calcium 9.5 mg/dL (8.4-10.2); Carbon Dioxide 27 mmol/L (22-29); Chloride 103 mmol/L (96-108); Estimated Glomerular Filt Rate > 60; Glucose Random 124 mg/dL (60-115); Potassium 3.9 mmol/L (3.3-5.1); Sodium 137 mmol/L (135-145)
== END 2024-04-02 09:16 | disposition home or self-care (01) ==
LOC: HO.LAB 09:15
PROVIDERS: PCP Internal Medicine; Visit Provider Internal Medicine Cardiovascular Disease
DX: I50.20 Unspecified systolic (congestive) heart failure (principal)
CPT/HCPCS: 36415; 80048

== ENCOUNTER 2024-04-05 09:41 | Outpatient (AMB) | payer MEDICARE, MEDICAID, SELFPAY ==
--- NOTE | 2024-04-05 09:47 | A.OFFVIS_ITS ---
Intake Visit Reasons: left knee injection Intake Note: Russell is a 79 year old male who presents today for a cortisone injection. Patient reports he is having a lot of pain in his knee. Allergies adenosine Allergy (Severe, Verified 03/22/24 11:09) cardiac, elevated BP, Stroke Gadolinium-Containing Contrast Medi Allergy (Severe, Verified 03/22/24 11:09) red eyes Iodinated Contrast Media [CONTRAST, IV] Allergy (Severe, Verified 03/22/24 11:09) Seizure carvedilol Allergy (Intermediate, Verified 03/22/24 11:09) disorientation erythromycin base Adverse Reaction (Unknown, Verified 03/22/24 11:09) Gut pain , Abdominal Pain, GI upset HPI HPI left knee injection: Details: 79-year-old male who presents in the office today for a follow-up of left knee pain. I last saw the patient in the office on 03/22/24 when the patient was offered a cortisone injection but deferred due to not wanting any increased pain.? ? While in the office today, the patient reports having a lot of pain in the left knee. He is interested in a cortisone injection.? ? Patient is unable to take NSAIDs due to being on an anticoagulant (warfarin).? ? Patient has a medical history of paroxysmal atrial fibrillation currently taking warfarin, CKD, CVA (affecting the right side of his body), CHF and diabetes mellitus type 2. (A1c of 5.7% as of 09/13/23)? [facility] Medical History Anxiety Myocardial infarct, old CHF (congestive heart failure) CVA (cerebral vascular accident) A-fib Surgical History History of appendectomy Social History Household Members: None Housing: House Do you presently have visiting nurse or other home services: Yes Alcohol intake: never Patient Tobacco Use Status: Never used Tobacco service: Yes Current occupational status: disabled Review of Systems Const All systems reviewed & are unremarkable except as noted in HPI and below Physical Exam Const General: cooperative, healthy appearing and no acute distress Resp Effort & Inspection: normal respiratory effort and able to speak in complete sentences Cardio Rate: regular rate Peripheral pulses: Peripheral pulses 2+ throughout GI Palpation (GI): Soft to palpation Skin Lesions: no lesions Rashes: no rashes Extrem Other: Left knee: Normal to inspection. No ecchymosis, erythema, or joint effusion. No tenderness to palpation along the medial or lateral joint lines. Full knee extension and flexion. Crepitus felt with ROM. NVI.? ? Office Procedures Joint Injection/Aspiration Joint Injection/Aspiration Primary Site: left knee Prep: site was prepped using aseptic technique, ethochloride spray was applied and injection warnings given Injected: 80 mg of, with 8 mL of (2% plain lido) and in the joint Approach Used: anterolateral Procedure: The patient tolerated the procedure well, but had some pain with the injection and there was some relief with the local anesthesia Coding 80755 - Large joint Procedure code (CPT) selection complete Assessment & Plan Assessment & Plan (1) Patellofemoral arthritis of left knee: Code(s): M17.12 - Unilateral primary osteoarthritis, left knee Category: Medical (2) Paroxysmal atrial fibrillation: Code(s): I48.0 - Paroxysmal atrial fibrillation Category: Medical (3) CKD (chronic kidney disease) stage 3, GFR 30-59 ml/min: Code(s): N18.30 - Chronic kidney disease, stage 3 unspecified Category: Medical (4) Diabetes type 2, controlled: Code(s): E11.9 - Type 2 diabetes mellitus without complications Category: Medical (5) Current use of anticoagulant therapy: Comment: Warfarin Code(s): Z79.01 - halfway (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 (6) History of stroke with current residual effects: Comment: Right-sided weakness Code(s): I69.30 - Unspecified sequelae of cerebral infarction Category: Medical Plan Mr. Ni is a 79-year-old male who presents in the office today for a follow-up of left knee pain. I last saw the patient in the office on 03/22/24 when the patient was offered a cortisone injection but deferred due to not wanting any increased pain.? ? While in the office today, the patient reports having a lot of pain in the left knee. He is interested in a cortisone injection.? ? Patient is unable to take NSAIDs due to being on an anticoagulant (warfarin).? ? Patient has a medical history of paroxysmal atrial fibrillation currently taking warfarin, CKD, CVA (affecting the right side of his body), CHF and diabetes mellitus type 2. (A1c of 5.7% as of 09/13/23)? ? The patient was offered a cortisone injection in the left knee with 80 mg of Depo-Medrol. The patient was explained the risks, benefits, and alternatives to receiving this injection. After receiving consent for the injection, the patient had the procedure done while in the office today. The patient tolerated the procedure well with no complications.? The patient was also informed that they could have facial flushing as a side effect of the injection, but this will pass.?They may also have an increase in pain before pain begins to subside. ? Follow-up will be PRN, or sooner if needed. ? Patient Instructions: Scribed by Morelia Farah medical staff services coordinator, for Farzana Sinclair ARIEL on 04/05/2024 at 9:45 am, EST.? Coding Level of Care Code Est Pt Level 4 (66331) Diagnoses Patellofemoral arthritis of left knee M17.12 Paroxysmal atrial fibrillation I48.0 CKD (chronic kidney disease) stage 3, GFR 30-59 ml/min N18.30 Diabetes type 2, controlled E11.9 Current use of anticoagulant therapy Z79.01 History of stroke with current residual effects I69.30 CPT Codes Coding - 19054 Large joint: 13920 - Large joint ([id number])
--- OUTSIDE RECORDS SUMMARY | 2024-04-11 06:12 | XMS_ITS ---
Author Organization Yonathan Womack MD Address [address] [place], [place] [id number] Care Team Providers Care Student Life Vice President Name Role Phone Shanta Yonathan Primary Care Provider ALLERGIES Allergen (clinical drug ingredient) Drug/Non Drug Allergy documented on EMR Reaction Allergy Type Onset Date Status gadolinium (uncoded) red eues Allergy Active Adedison (uncoded) Elevated BP Allergy Active erythromycin Erythromyicin (uncoded) GI Upset Allergy Active erythromycin Ilisone (uncoded) GI Upset Allergy Active IVPDye (uncoded) Convulsion Allergy Ac tive REASON FOR REFERRAL Reason pain in left knee Diagnosis 1 Pain in left knee (M 25.562) Referral Organization Yonathan Womack MD Referring Provider First Name Yonathan Referring Provider Last Name Shanta Referring Provider Speciality Internal M edicine Referred Provider Lazaro Weinberg Referred Provider Specialty Orthopedic S urgery General Notes Otilia Nova 11:11:36 AM EDT > patient is aware of appt Referral Priority Routine Referral Appointment Date 03/22/2024 REASON FOR VISIT left knee pain MEDICATIONS Medication SIG (Take, Route, Frequency, Duration) Notes Start Date End Date Status Furosemide 20 MG TAKE 1 TABLET BY CASSIUS TH EVERY DAY Active Omeprazole 20 MG TAKE 1 CAPSULE BY MOUTH EVERY DAY 30 MINUTES BEFORE BREAKFAST for 90 Active FreeStyle Lancets - USE TO CHECK BLOOD SUGAR ONCE A DAY for 90 Active FreeStyle Lite Test - TEST BLOOD SUGAR O NCE EVERY DAY for 50 Active Simvastatin 40 MG TAKE 1/2 TABLET BY MOUTH EVERY EVENING Active Entresto 24-26 MG 1 tablet Orally Twic e a day Active Warfarin Sodium 2.5 MG TAKE 3 TABLETS BY MOUTH 6 DAYS A WEEK AND 2 TABLETS BY MOUTH ONE DAY A WEEK. TAKE FOR 90 DAYS for 90 Active Coreg CR 40 MG 1 capsule with food Orally Once a day Active Spironolactone 25 MG 1 tablet Orally Active Vitamin D3 400 UNIT 1 capsule Orally Onc e a day Active Magnesium 500 MG 1 tablet with a meal Orally Once a day Active Calcium 500 MG 1 tablet with food Orally Once a day Active Triamcinolone Acetonide 0.1 % 1 application Externally Once a day for 30 days 07/23/2021 Active Co Q 10 100 MG 1 capsule with a indy l Orally Once a day for 30 day(s) Active LORazepam 0.5 MG TAKE 1 TABLET BY CASSIUS TH EVERY DAY NEEDED Orally Once a day for 30 days 01/24/2024 Active Tylenol Extra Strength 500 MG 1/2 tablet Orally every 6 hrs Not-Taking Eplerenone 25 MG TAKE 0.5 TABLET BY MOUTH EVERY DAY Orally Once a day Not-Taking Triamcinolone Acetonide 0.5 % 1 application to affected area Externally Twice a day for 30 days 10/03/2014 Not-Taking Imodium A-D 2 MG 1 tablet as needed Orally Four times a day Not-Taking Nitrostat 0.4 MG as directed Sublingu al every 5 mins times 3 for 30 days 11/30/2016 Not-Taking Melatonin 3 MG 1 tablet at bedtime as needed Orally Once a day for 30 day(s) Not-Taking PROBLEMS Problem Type ICD Code Onset Dates Problem Status W/U Status Risk SNOMED Code Notes Problem Other chronic pain (G89.29) Active confirmed 24005117 VITAL SIGNS BMI 30.86 kg/m2 02/21/2024 Blood pressure systolic 120 mm Hg 02/21/20 24 Blood pressure diastolic 66 mm Hg 024 Height 69 in 02/21/2024 Weight 209 lbs 02/21/2024 weight is up 4 pounds since 01-19-24 Encounters Encounter Location Date Provider Diagnosis Yonathan Womack MD [address] [place] [address] [place] [phone] 02/21/2024 Yonathan Womack Pain in left knee M25.562 and Other chronic pain G89.29 ASSESSMENTS Encounter Date Diagnosis Assessment Notes Treatment Notes Treatment Clinical Notes 02/21/2024 Pain in left knee (ICD-10 - M25.562) needs wheelchair. is getting through [facility]. also needs medline 300 which is a pad because he doesn't have control of urine/ make referral to [facility] 02/21/2024 Other chronic pain (ICD-10 - G89.29) PLAN OF TREATMENT Medication Medication Name Sig Start Date Stop Date Notes LORazepam 0.5 MG TAKE 1 TABLET BY CASSIUS TH EVERY DAY NEEDED Orally Once a day for 30 days 01/24/2024 Treatment Notes Assessment Notes Pain in left knee needs wheelchair. is getting through [facility]. also needs medline 300 which is a pad because he doesn't have control of urine/ make referral to [facility] Referrals Referral Date Details 03/22/2024 03/22/2024, pain in left knee , Lazaro Weinberg Next Appt Details Provider Name:Yonathan mendoza, 05/14/2024 10:15:00 AM, [address] [place] [address], [address] [place] [address], [phone], Provider Name:Yonathan mendoza, 09/14/2024 07:15:00 AM, [address] [place] [address], [address], [phone], Provider Name:Yonathan mendoza, 09/21/2024 11:00:00 AM, [address] [place] [address], [address], [phone], Progress Notes * Examination Category Sub-Category Detail Notes General Examination GENERAL APPEARANCE: alert, w ell hydrated, in no distress HEAD: normocephalic HEART: no murmurs, rubs, ga llops, regular rate and rhythm LUNGS: no wheezes, rales, r honchi, good air movement, clear to auscultation bilaterally SKIN: good turgor Consultation Request Notes Referral Date Referring Provider Referred Provider Not es 02/21/2024 Yonathan Womack Noah pain in le ft knee
--- OUTSIDE RECORDS SUMMARY | 2024-04-11 06:12 | XMS_ITS ---
Author Organization Yonathan Womack MD Address [address] [place], [place] [phone] Care Team Providers Care Solid Waste Analyst Name Role Phone Yonathan Womack Primary Care Provider REASON FOR VISIT Wants PT Encounters Encounter Location Date Provider Diagnosis Yonathan Womack MD [address] [place] [phone] 03/26/2024 Yonathan Womack PLAN OF TREATMENT Next Appt Details Provider Name:Yonathan Pan iemalachi, 05/14/2024 10:15:00 AM, [address] [place] [address], [address] [facility], [place], [place], [phone], Provider Name:Yonathan mendoza, 09/14/2024 07:15:00 AM, [address] [place] [address], [address] [facility], [place], [place], [phone], Provider Name:Yonathan mendoza, 09/21/2024 11:00:00 AM, [address] [place] [address], [address] [facility], [place], [place], [phone],
--- OUTSIDE RECORDS SUMMARY | 2024-04-11 06:12 | XMS_ITS ---
Author Organization Yonathan Womack MD Address [address] [place] [phone] Care Team Providers Care Director Biostatistics Name Role Phone Yonathan Womack Primary Care Provider [phone] REASON FOR VISIT RF Lorazepam MEDICATIONS Medication SIG (Take, Route, Fr equency, Duration) Notes Start Date End Date Status LORazepam 0.5 MG TAKE 1 TABLET BY CASSIUS TH EVERY DAY NEEDED Orally Once a day for 30 days 01/24/2024 Active Encounters Encounter Location Date Provider Diagnosis Yonathan Womack MD [address] [place] [phone] 01/24/2024 Yonathan Womack PLAN OF TREATMENT Medication Medication Name Sig Start Date Stop Date Notes LORazepam 0.5 MG TAKE 1 TABLET BY ACSSIUS TH EVERY DAY NEEDED Orally Once a day for 30 days 01/24/2024 Next Appt Details Provider Name:Yonathan mendoza, 05/14/2024 10:15:00 AM, [address] [facility], [address] [facility], [place], [place], [phone], Provider Name:Yonathan mendoza, 09/14/2024 07:15:00 AM, [address], [address], [place], [phone], Provider Name:Yonathan mendoza, 09/21/2024 11:00:00 AM, [address] [facility], [address], [place], [phone],
--- OUTSIDE RECORDS SUMMARY | 2024-04-11 06:12 | XMS_ITS | Patient Health Record ---
Author Organization Yonathan Womack MD Address [address] [place], [place] [id number] Care Team Providers Care Rewinder Operator Name Role Phone Yonathan Womack Primary Care Provider [phone] ALLERGIES Allergen (clinical drug ingredient) Drug/Non Drug Allergy documented on EMR Reaction Allergy Type Onset Date Status gadolinium (uncoded) red eues Allergy Active Adedison (uncoded) Elevated BP Allergy Active erythromycin Erythromyicin (uncoded) GI Upset Allergy Active erythromycin Ilisone (uncoded) GI Upset Allergy Active IVPDye (uncoded) Convulsion Allergy Ac tive RESULTS Component Value Reference Range Notes INR WHOLE BLOOD POC Reviewed date:04/21/2023 09:08:30 AM Interpretation: Performing Lab:[facility], [address] [place] [phone] Notes/Report: PT, INR - Anti [facility]ag Clinic 2.3 0.9-1.1 METER #: [id number] INTERNATIONAL NORMALIZED RATIO (INR) REFERENCE RANGES Reference Range For patients not on anticoagulant therapy: 0.9 - 1.1 INR ranges for oral anticoagulant therapy: For prevention and treatment of venous thrombosis and pulmonary embolism: 2.0 - 3.0 For acute myocardial infarction with aspirin therapy: 2.0 - 3.0 For acute myocardial infarction without aspirin therapy: 3.0 - 4.0 For patients with mechanical prosthetic heart valves: 2.5 - 3.5 Prothrombin Time Whole Bld P OC Reviewed date:04/21/2023 10:35:14 AM Interpretation: Performing Lab:[facility], [address] [place] [phone] Notes/Report: Prothrombin Time Whole Bld POC 27.0 11.1-13.5 sec MR lumbar spine wo con Reviewed date:05/20/2023 04:40:33 PM Interpretation: Performing Lab: Notes/Report: [facility] [address] [place] [id number] Magnetic Resonance Report Signed Patient: Noah Naylor MR#: [id number] : 11/02/1946 Acct:[id number] Age/Sex: 76 / M ADM Date: 05/13/23 Loc: HO.MRI Attending Dr: Celestine Lawrence NP Ordering Physician: CELESTINE LAWRENCE NP Date of Service: 05/13/23 Procedure(s): MR lumbar spine wo con Accession Number(s): [id number] cc: Yonathan Womack MD; CELESTINE LAWRENCE NP EXAMINATION: MR LUMBAR SPINE WITHOUT CONTRAST CLINICAL INFORMATION: Ongoing low back pain with leg pain. COMPARISON: Lumbar spine CT 06/16/2022. TECHNIQUE: MRI of the lumbar spine was obtained using routine sequences without contrast. FINDINGS: The lumbar vertebral bodies maintain normal heights. There is mild retrolisthesis of L1 on L2, L2 on L3, L3 on L4, and L4 on L5. There is grade 1 anterolisthesis of L5 on S1 related to right-sided L5 pars defect. There is advanced intervertebral disc height loss throughout the lumbar levels with associated vacuum discs. Mild amount of endplate edema seen inferiorly at T12, superiorly at L3, inferiorly at L3, and at the opposing endplates of L4-L5. The distal spinal cord appears normal. The conus medullaris terminates normally at the L1-L2 level. The visualized paraspinal muscles and intra-abdominal and pelvic contents are within normal limits. SPINAL LEVELS: L1-L2: Disc bulging. No spinal canal stenosis. Mild bilateral neural foraminal stenosis. L2-L3: Disc bulging with facet arthropathy. Mild spinal canal stenosis. Mild right neural foraminal stenosis. Osteophytic ridging abuts the exiting right L2 nerve root. L3-L4: Disc bulging with left more than right facet arthropathy. Left subarticular stenosis with compression of the traversing left L4 nerve root. Severe left neural foraminal stenosis with significant compression of the exiting left L3 nerve root. L4-L5: Disc bulging with ligament flavum infolding and severe right and moderate left facet arthropathy. Bilateral subarticular stenosis and mild spinal canal stenosis. Severe bilateral neural foraminal stenosis with compression of both exiting L4 nerve roots. L5-S1: Grade 1 anterolisthesis. Disc bulging with severe facet arthropathy. Bilateral subarticular stenosis. Severe left and [id number] right neural foraminal stenosis with compression of the exiting left L5 nerve root. MR/MR lumbar spine wo con IMPRESSION: 1. Advanced multilevel degenerative spondylosis. 2. At L3-L4 there is left subarticular stenosis with compression of the traversing left L4 nerve root and severe left neural foraminal stenosis with significant compression of the exiting left L3 nerve root. 3. At L4-L5 there is severe bilateral neural foraminal stenosis with compression of both exiting L4 nerve roots. 4. At L5-S1 there is grade 1 anterolisthesis related to right-sided L5 pars defect. Severe left neural foraminal stenosis with compression of the exiting left L5 nerve root. Dictated By: MARIOLA SLAUGHTER MD Signed By: <Electronically signed by MARIOLA SLAUGHTER MD in OV> 05/13/23 1610 DD/ 0940 TD/TT: Quality Assurance Lab Technician: RISHI INR WHOLE BLOOD POC Reviewed date:05/19/2023 12:25:28 PM Interpretation: Performing Lab:[facility], [address] [place] [phone] Notes/Report: PT, INR - Anti Coag Clinic 2.1 0.9-1.1 METER #: [id number] INTERNATIONAL NORMALIZED RATIO (INR) REFERENCE RANGES Reference Range For patients not on anticoagulant therapy: 0.9 - 1.1 INR ranges for oral anticoagulant therapy: For prevention and treatment of venous thrombosis and pulmonary embolism: 2.0 - 3.0 For acute myocardial infarction with aspirin therapy: 2.0 - 3.0 For acute myocardial infarction without aspirin therapy: 3.0 - 4.0 For patients with mechanical prosthetic heart valves: 2.5 - 3.5 Prothrombin Time Whole Bld P OC Reviewed date:05/19/2023 12:24:43 PM Interpretation: Performing Lab:[facility], [address] [place] [phone] Notes/Report: Prothrombin Time Whole Bld POC 25.3 11.1-13.5 sec INR WHOLE BLOOD POC Reviewed date:06/02/2023 02:34:46 PM Interpretation: Performing Lab:[facility], [address] [place] [phone] Notes/Report: PT, INR - Anti Coag Clinic 2.2 0.9-1.1 METER #: [id number] INTERNATIONAL NORMALIZED RATIO (INR) REFERENCE RANGES Reference Range For patients not on anticoagulant therapy: 0.9 - 1.1 INR ranges for oral anticoagulant therapy: For prevention and treatment of venous thrombosis and pulmonary embolism: 2.0 - 3.0 For acute myocardial infarction with aspirin therapy: 2.0 - 3.0 For acute myocardial infarction without aspirin therapy: 3.0 - 4.0 For patients with mechanical prosthetic heart valves: 2.5 - 3.5 Prothrombin Time Whole Bld P OC Reviewed date:06/02/2023 02:34:10 PM Interpretation: Performing Lab:[facility], [address] [place] [phone] Notes/Report: Prothrombin Time Whole Bld POC 26.4 11.1-13.5 sec INR WHOLE BLOOD POC Reviewed date:06/16/2023 11:48:59 AM Interpretation: Performing Lab:[facility], [address] [place] [phone] Notes/Report: PT, INR - Anti Coag Clinic 2.5 0.9-1.1 METER #: [id number] INTERNATIONAL NORMALIZED RATIO (INR) REFERENCE RANGES Reference Range For patients not on anticoagulant therapy: 0.9 - 1.1 INR ranges for oral anticoagulant therapy: For prevention and treatment of venous thrombosis and pulmonary embolism: 2.0 - 3.0 For acute myocardial infarction with aspirin therapy: 2.0 - 3.0 For acute myocardial infarction without aspirin therapy: 3.0 - 4.0 For patients with mechanical prosthetic heart valves: 2.5 - 3.5 Prothrombin Time Whole Bld P OC Reviewed date:06/16/2023 09:58:12 AM Interpretation: Performing Lab:[facility], [address] [place] [phone] Notes/Report: Prothrombin Time Whole Bld POC 29.7 11.1-13.5 sec UA ClnCatch+Micro w/rflx Cul t Reviewed date:06/17/2023 03:18:24 PM Interpretation: Performing Lab:[facility], [address] [place] [phone] Notes/Report: [id number] Urine, Clean Catch Color Urine Yellow Appearance Urine Clear PH 5.5 5.0-9.0 Glucose Urine UA Negative Negative mg/dL Urine Blood Negative Negative Specific Max - Urine 1.010 1.005-1.025 Urine Protein Negative Neg-Trace mg/dL Urine Ketones Negative Negative mg/dL Nitrite Urine Negative Negative Leukocyte Esterase Urine Negative Negative RBC Urine 0-2 0-2 /HPF WBC Urine 0-5 0-5 /HPF Squamous Epithelial Cell Urine 0-2 0-2 /HPF Bacteria Urine None Seen None Seen Hyaline Casts Urine 0-2 0-2 /LPF INR WHOLE BLOOD POC Reviewed date:06/21/2023 11:28:07 AM Interpretation: Performing Lab:[facility], [address] [place] [phone] Notes/Report: PT, INR - Anti Coag Clinic 2.6 0.9-1.1 METER #: [id number] INTERNATIONAL NORMALIZED RATIO (INR) REFERENCE RANGES Reference Range For patients not on anticoagulant therapy: 0.9 - 1.1 INR ranges for oral anticoagulant therapy: For prevention and treatment of venous thrombosis and pulmonary embolism: 2.0 - 3.0 For acute myocardial infarction with aspirin therapy: 2.0 - 3.0 For acute myocardial infarction without aspirin therapy: 3.0 - 4.0 For patients with mechanical prosthetic heart valves: 2.5 - 3.5 Prothrombin Time Whole Bld P OC Reviewed date:06/21/2023 11:28:14 AM Interpretation: Performing Lab:[facility], [address] [place] [phone] Notes/Report: Prothrombin Time Whole Bld POC 31.3 11.1-13.5 sec INR WHOLE BLOOD POC Reviewed date:07/21/2023 12:41:26 PM Interpretation: Performing Lab:[facility], [address] [place] [phone] Notes/Report: PT, INR - Anti Coag Clinic 2.5 0.9-1.1 METER #: [id number] INTERNATIONAL NORMALIZED RATIO (INR) REFERENCE RANGES Reference Range For patients not on anticoagulant therapy: 0.9 - 1.1 INR ranges for oral anticoagulant therapy: For prevention and treatment of venous thrombosis and pulmonary embolism: 2.0 - 3.0 For acute myocardial infarction with aspirin therapy: 2.0 - 3.0 For acute myocardial infarction without aspirin therapy: 3.0 - 4.0 For patients with mechanical prosthetic heart valves: 2.5 - 3.5 Prothrombin Time Whole Bld P OC Reviewed date:07/21/2023 12:41:53 PM Interpretation: Performing Lab:[facility], [address] [place] [phone] Notes/Report: Prothrombin Time Whole Bld POC 30.4 11.1-13.5 sec INR WHOLE BLOOD POC Reviewed date:08/18/2023 12:41:24 PM Interpretation: Performing Lab:[facility], [address] [place] [phone] Notes/Report: PT, INR - Anti Coag Clinic 2.6 0.9-1.1 METER #: [id number] INTERNATIONAL NORMALIZED RATIO (INR) REFERENCE RANGES Reference Range For patients not on anticoagulant therapy: 0.9 - 1.1 INR ranges for oral anticoagulant therapy: For prevention and treatment of venous thrombosis and pulmonary embolism: 2.0 - 3.0 For acute myocardial infarction with aspirin therapy: 2.0 - 3.0 For acute myocardial infarction without aspirin therapy: 3.0 - 4.0 For patients with mechanical prosthetic heart valves: 2.5 - 3.5 Prothrombin Time Whole Bld P OC Reviewed date:08/18/2023 12:47:43 PM Interpretation: Performing Lab:[facility], [address] [place] [phone] Notes/Report: Prothrombin Time Whole Bld POC 31.2 11.1-13.5 sec Complete Blood Count Auto Di ff Reviewed date:09/13/2023 06:46:26 PM Interpretation: Performing Lab:[facility], [address] [place] [phone] Notes/Report: White Blood Count 8.4 4.8-10.8 X10*3/uL Red Blood Count 4.85 4.60-5.80 X10*6/uL Hemoglobin 15.0 14.0-18.0 g/dl Hematocrit 44.6 42.0-52.0 % Mean Corpuscular Volume 92.0 80.0-98.0 fL Mean Corpuscular Hemoglobin 30.9 27.0-33.0 pg Mean Corpuscular HGB Conc 33.6 31.0-36.0 g/dl Red Cell Distribution Width 13.1 11.0-16.0 % Platelet Count 144 160-400 X10*3/uL Mean Platelet Volume 11.1 9.4-12.4 fL Neutrophils Percent Auto 55.2 45-73 % Imm Gran Pct Auto 0.5 0.0-0.4 % Lymphocytes Percent Auto 35.3 20-40 % Monocytes Percent Auto 7.5 2-11 % Eosinophils Percent Auto 1.0 0-4 % Basophils Percent Auto 0.5 0-2 % NRBC Pct Auto 0.0 0.0-0.2 /100WBC Neutrophils Absolute Auto 4.7 2.0-8.3 x10*3/u L Imm Gran Abs Auto 0.04 0.00-0.03 X10*3/uL Lymphocytes Absolute Auto 3.0 1.2-4.9 X10*3/u L Monocytes Absolute Auto 0.6 0.1-1.2 X10*3/uL Eosinophils Absolute Auto 0.1 0.0-0.4 X10*3/u L Basophils Absolute Auto 0.0 0.0-0.2 X10*3/uL NRBC Abs Auto 0.000 0.0-0.012 X10*3/uL Comprehensive [place]. Panel Fa st Reviewed date:09/13/2023 06:46:08 PM Interpretation: Performing Lab:[facility], [address] [place] [phone] Notes/Report: Sodium 139 135-145 mmol/L Potassium 4.4 3.3-5.1 mmol/L Chloride 104 96-108 mmol/L Carbon Dioxide 28 22-29 mmol/L Anion Gap 11 12-20 Blood Urea Nitrogen 22 9-16 mg/dL Creatinine 1.05 0.5-1.4 mg/dL Estimated Glomerular Filt Rate > 60 NOTE: For -[place] individuals, multiply the result by 1.210. Chronic Kidney Disease: Estimated GFR < 60 mL/min/1.73m2 Severe Kidney Disease: Estimated GFR < 15 mL/min/1.73m2 Glucose Fasting 120 60-99 mg/dL A fasting glucose from 100-125 mg/dl is considered impaired (pre-diabetes). Calcium 9.5 8.4-10.2 mg/dL Bilirubin Total 0.6 0.0-1.0 mg/dL Aspartate Amino Transferase 17 5-37 U/L Alanine Aminotransferase 15 0-40 U/L Total Protein 6.9 6.5-8.0 g/dL Albumin Level 3.9 3.5-5.0 g/dL Alkaline Phosphatase 95 39-117 U/L Magnesium Reviewed date:09/13/2023 01:33:37 PM Interpretation: Performing Lab:[facility], [address] [place] [phone] Notes/Report: Magnesium 1.7 1.6-2.6 mg/dL Lipid Panel Reviewed date:09/13/2023 02:27:27 PM Interpretation: Performing Lab:[facility], [address] [place] [phone] Notes/Report: Triglycerides 100 <150 mg/dL Desirable Triglyceride: less than 150 mg/dL Borderline High Triglyceride 150-199 mg/dL High Triglyceride: 200-499 mg/dL Very High Triglyceride: greater than or equal to 5OO mg/dL Cholesterol 121 <200 mg/dL Desirable Cholesterol: less than 200 mg/dL Borderline High Cholesterol: 200-239 mg/dL High Cholesterol: greater than 239 mg/dL LDL Cholesterol Calculated 64 <100 mg/dL Desirable LDL: less than 100 mg/dL Near Optimal/Above Optimal LDL: 110-129 mg/dL Borderline High LDL: 130-159 mg/dL High LDL: 160-189 mg/dL Very High LDL: greater than or equal to 190 mg/dL HDL Cholesterol 37 >40 mg/dL Desirable HDL: greater than 40 mg/dL Note: This HDL assay may give artificially low results in patients with liver disease. PSA,Total (Free>4and<10) Reviewed date:09/13/2023 01:31:27 PM Interpretation: Performing Lab:[facility], [address] [place] [phone] Notes/Report: PSA,Total (Free>4and<10) 0.17 0.00-4.00 ng/mL A Free PSA was not performed: The percentage of Free PSA can be used to enhance the differentiation of prostate cancer from benign prostatic disease in subjects whose PSA levels are between 4.0 and 10.0 ng/mL. For subjects whose PSA levels are below 4.0 or above 10.0 ng/mL, the risk of prostate cancer is determined on the basis of the PSA alone. Therefore the % Free PSA is recommended only for those subjects whose PSA levels are between 4.0 and 10.0 ng/mL. PSA methodology: Rahman Alinity i Chemiluminescent Microparticle Immunoassay (CMIA) Vitamin D 25-OH Total Reviewed date:09/13/2023 01:33:51 PM Interpretation: Performing Lab:[address] [phone] Notes/Report: Vitamin D 25-OH Total 36.1 >30 ng/mL Health Based Reference Values* < 20 ng/mL Deficient 20-30 ng/mL Insufficient > 30 ng/mL Sufficient *Woodrow CRUZ. N Engl J Med. 2007;357:266-280 Care must be taken in interpreting Vitamin D results from different laboratories and methodologies. Published data demonstrated that results from patients undergoing hemodialysis may show a negative bias when tested with various automated 25-OH vitamin D assays when compared to LC-MS/MS. When testing samples from patients whose predominant form of Vitamin D is Vitamin D2, such as patients receiving Vitamin D2 supplementation, results that are subtherapeutic should be confirmed with another method such as LC-MS/MS. Hemoglobin A1c Reviewed date:09/13/2023 12:29:40 PM Interpretation: Performing Lab:[facility], [address] [place] [phone] Notes/Report: Hemoglobin A1c % 5.7 <6.0 % Hemoglobin A1C Reference Range Adults: 4.8 - 6.0 % Non diabetic: < 6.0 % Goal: < 7.0 % Additional Action Suggested: > 8.0 % Note: Hemoglobin A1c results are invalid for patients with abnormal amounts of HbF. Blood transfusions may impact the HbA1c concentration in the patient sample. Estimated Average Glucose 117 eAG = Estimated average glucose which is %A1C expressed as average glucose, using the formula of the [id number] Average Glucose study (ADAG), Diabetes Care, Vol.31,#8, 2007 INR WHOLE BLOOD POC Reviewed date:09/15/2023 11:40:37 AM Interpretation: Performing Lab:[address] [phone] Notes/Report: PT, INR - Anti Coag Clinic 2.3 0.9-1.1 METER #: [id number] INTERNATIONAL NORMALIZED RATIO (INR) REFERENCE RANGES Reference Range For patients not on anticoagulant therapy: 0.9 - 1.1 INR ranges for oral anticoagulant therapy: For prevention and treatment of venous thrombosis and pulmonary embolism: 2.0 - 3.0 For acute myocardial infarction with aspirin therapy: 2.0 - 3.0 For acute myocardial infarction without aspirin therapy: 3.0 - 4.0 For patients with mechanical prosthetic heart valves: 2.5 - 3.5 Prothrombin Time Whole Bld P OC Reviewed date:09/15/2023 11:37:16 AM Interpretation: Performing Lab:[facility], [address] [place] [phone] Notes/Report: Prothrombin Time Whole Bld POC 27.4 11.1-13.5 sec Microalbumin, Random Reviewed date:09/20/2023 12:18:25 PM Interpretation: Performing Lab:[facility], [address] [place] [phone] Notes/Report: Creatinine Urine 130.07 Microalbumin Urine 16.0 Microalbum/Creatinine Ratio Ur 12.3 <30 ug/mg cr Albumin/Creatinine Ratio Reference Ranges: Normal: < 30 ug/mg creatinine Microalbuminuria: 30 - 300 ug/mg creatinine Clinical Albuminuria: > 300 ug/mg creatinine UA ClnCatch+Micro w/rflx Cul t Reviewed date:09/20/2023 04:25:59 PM Interpretation: Performing Lab:[facility], [address] [place] [phone] Notes/Report: Urine, Clean Catch Color Urine Yellow Appearance Urine Clear PH 6.0 5.0-9.0 Glucose Urine UA Negative Negative mg/dL Urine Blood Trace Negative Specific Max - Urine 1.020 1.005-1.025 Urine Protein Negative Neg-Trace mg/dL Urine Ketones Negative Negative mg/dL Nitrite Urine Negative Negative Leukocyte Esterase Urine Negative Negative RBC Urine 0-2 0-2 /HPF WBC Urine 0-5 0-5 /HPF Squamous Epithelial Cell Urine 0-2 0-2 /HPF Bacteria Urine None Seen None Seen Hyaline Casts Urine 0-2 0-2 /LPF US abdomen complete Reviewed date:10/20/2023 09:56:44 AM Interpretation: Performing Lab: Notes/Report: [address] [address] Ultrasound Report Signed Patient: Steven Tiwari MR#: [id number] : 1945 Acct:[id number] Age/Sex: 78 / M ADM Date: 10/06/23 Loc: HO.US Attending Dr: Yonathan Womack MD Ordering Physician: Yonathan Womack MD Date of Service: 10/06/23 Procedure(s): US abdomen complete Accession Number(s): [id number] cc: Yonathan Womack MD EXAMINATION: US ABDOMEN COMPLETE CLINICAL INFORMATION: Adrenal gland cyst. COMPARISON: Ultrasound abdomen complete 04/13/2022 and 03/12/2021. CT abdomen and pelvis 04/14/2021. TECHNIQUE: Real-time imaging of the abdominal viscera. FINDINGS: PANCREAS: Normal. ABDOMINAL AORTA: The abdominal aorta is of normal caliber. INFERIOR VENA CAVA: Visualized portions are normal. LIVER: The liver is enlarged measuring 17.0 cm. The liver contour is normal. There is mild increased liver echogenicity. There is no intrahepatic biliary duct dilatation seen. There is anechoic cyst in the left hepatic lobe measuring 1.1 x 0.8 x 0.8 cm. GALLBLADDER: The gallbladder is physiologically distended without evidence of stones or pericholecystic fluid. There are small polyps versus sludge measuring 1.9 x 0.6 x 1.4 cm.. Gallbladder wall thickness is 0.5-0.7 cm. COMMON BILE DUCT: Normal in caliber measuring 0.4 cm in diameter. RIGHT KIDNEY: No hydronephrosis or renal calculi. The kidney measures 10.7 cm in maximum dimension. There is anechoic cyst with septation in midpole exophytic measuring 1.4 x 1.3 x 1.3 cm LEFT KIDNEY: Normal. No hydronephrosis. No renal calculi or focal parenchymal lesions. The kidney measures 11.7 cm in maximum dimension. SPLEEN: Normal. The spleen measures 10.8 cm in maximum dimension. FREE FLUID: None. US/US abdomen complete IMPRESSION: Small polyp versus nonmobile bilateral gallbladder sludge. Mild wall thickening.. Left hepatic lobe cyst. Mild borderline hepatomegaly and mild hepatic steatosis.. Complex cyst 1.4 cm right kidney. Bosniak type II. Dictated By: Brennan Mcginnis MD Signed By: <Electronically signed by Brennan Mcginnis MD in OV> 10/06/23 1528 DD/ 0901 TD/TT: Quality Assurance Lab Technician: ADOLPH INR WHOLE BLOOD POC Reviewed date:10/13/2023 12:44:22 PM Interpretation: Performing Lab:[facility], [address] [place] [phone] Notes/Report: PT, INR - Anti Coag Clinic 2.3 0.9-1.1 METER #: [id number] INTERNATIONAL NORMALIZED RATIO (INR) REFERENCE RANGES Reference Range For patients not on anticoagulant therapy: 0.9 - 1.1 INR ranges for oral anticoagulant therapy: For prevention and treatment of venous thrombosis and pulmonary embolism: 2.0 - 3.0 For acute myocardial infarction with aspirin therapy: 2.0 - 3.0 For acute myocardial infarction without aspirin therapy: 3.0 - 4.0 For patients with mechanical prosthetic heart valves: 2.5 - 3.5 Prothrombin Time Whole Bld P OC Reviewed date:10/13/2023 12:44:44 PM Interpretation: Performing Lab:[facility], [address] [place] [phone] Notes/Report: Prothrombin Time Whole Bld POC 27.9 11.1-13.5 sec INR WHOLE BLOOD POC Reviewed date:11/10/2023 12:50:06 PM Interpretation: Performing Lab:[facility], [address] [place] [phone] Notes/Report: PT, INR - Anti Coag Clinic 2.3 0.9-1.1 METER #: [id number] INTERNATIONAL NORMALIZED RATIO (INR) REFERENCE RANGES Reference Range For patients not on anticoagulant therapy: 0.9 - 1.1 INR ranges for oral anticoagulant therapy: For prevention and treatment of venous thrombosis and pulmonary embolism: 2.0 - 3.0 For acute myocardial infarction with aspirin therapy: 2.0 - 3.0 For acute myocardial infarction without aspirin therapy: 3.0 - 4.0 For patients with mechanical prosthetic heart valves: 2.5 - 3.5 Prothrombin Time Whole Bld P OC Reviewed date:11/10/2023 12:49:49 PM Interpretation: Performing Lab:[facility], [address] [place] [phone] Notes/Report: Prothrombin Time Whole Bld POC 27.9 11.1-13.5 sec INR WHOLE BLOOD POC Reviewed date:12/08/2023 12:39:21 PM Interpretation: Performing Lab:[facility], [address] [place] [phone] Notes/Report: PT, INR - Anti Coag Clinic 2.7 0.9-1.1 METER #: [id number] INTERNATIONAL NORMALIZED RATIO (INR) REFERENCE RANGES Reference Range For patients not on anticoagulant therapy: 0.9 - 1.1 INR ranges for oral anticoagulant therapy: For prevention and treatment of venous thrombosis and pulmonary embolism: 2.0 - 3.0 For acute myocardial infarction with aspirin therapy: 2.0 - 3.0 For acute myocardial infarction without aspirin therapy: 3.0 - 4.0 For patients with mechanical prosthetic heart valves: 2.5 - 3.5 Prothrombin Time Whole Bld P OC Reviewed date:12/08/2023 12:43:25 PM Interpretation: Performing Lab:[facility], [address] [place] [phone] Notes/Report: Prothrombin Time Whole Bld POC 32.3 11.1-13.5 sec INR WHOLE BLOOD POC Reviewed date:01/05/2024 12:45:42 PM Interpretation: Performing Lab:[facility], [address] [place] [phone] Notes/Report: PT, INR - Anti Coag Clinic 2.1 0.9-1.1 METER #: [id number] INTERNATIONAL NORMALIZED RATIO (INR) REFERENCE RANGES Reference Range For patients not on anticoagulant therapy: 0.9 - 1.1 INR ranges for oral anticoagulant therapy: For prevention and treatment of venous thrombosis and pulmonary embolism: 2.0 - 3.0 For acute myocardial infarction with aspirin therapy: 2.0 - 3.0 For acute myocardial infarction without aspirin therapy: 3.0 - 4.0 For patients with mechanical prosthetic heart valves: 2.5 - 3.5 Prothrombin Time Whole Bld P OC Reviewed date:01/05/2024 12:51:44 PM Interpretation: Performing Lab:[address] [phone] Notes/Report: Prothrombin Time Whole Bld POC 25.7 11.1-13.5 sec Complete Blood Count Auto Di ff Reviewed date:01/13/2024 04:12:10 PM Interpretation: Performing Lab:[facility], [address] [place] [phone] Notes/Report: White Blood Count 7.9 4.8-10.8 X10*3/uL Red Blood Count 4.85 4.60-5.80 X10*6/uL Hemoglobin 15.1 14.0-18.0 g/dl Hematocrit 43.1 42.0-52.0 % Mean Corpuscular Volume 88.9 80.0-98.0 fL Mean Corpuscular Hemoglobin 31.1 27.0-33.0 pg Mean Corpuscular HGB Conc 35.0 31.0-36.0 g/dl Red Cell Distribution Width 13.0 11.0-16.0 % Platelet Count 159 160-400 X10*3/uL Mean Platelet Volume 10.3 9.4-12.4 fL Neutrophils Percent Auto 53.7 45-73 % Imm Gran Pct Auto 0.4 0.0-0.4 % Lymphocytes Percent Auto 36.9 20-40 % Monocytes Percent Auto 7.6 2-11 % Eosinophils Percent Auto 0.9 0-4 % Basophils Percent Auto 0.5 0-2 % NRBC Pct Auto 0.0 0.0-0.2 /100WBC Neutrophils Absolute Auto 4.3 2.0-8.3 x10*3/u L Imm Gran Abs Auto 0.03 0.00-0.03 X10*3/uL Lymphocytes Absolute Auto 2.9 1.2-4.9 X10*3/u L Monocytes Absolute Auto 0.6 0.1-1.2 X10*3/uL Eosinophils Absolute Auto 0.1 0.0-0.4 X10*3/u L Basophils Absolute Auto 0.0 0.0-0.2 X10*3/uL NRBC Abs Auto 0.000 0.0-0.012 X10*3/uL Prothrombin Time INR Reviewed date:01/13/2024 04:05:04 PM Interpretation: Performing Lab:[address] [phone] Notes/Report: Prothrombin Time 23.8 11.1-13.3 SEC INTERNATIONAL NORM RATIO 2.0 0.9-1.1 INTERNATIONAL NORMALIZED RATIO (INR) REFERENCE RANGES Reference Range For patients not on anticoagulant therapy: 0.9 - 1.1 INR ranges for oral anticoagulant therapy: For prevention and treatment of venous thrombosis and pulmonary embolism: 2.0 - 3.0 For acute myocardial infarction with aspirin therapy: 2.0 - 3.0 For acute myocardial infarction without aspirin therapy: 3.0 - 4.0 For patients with mechanical prosthetic heart valves: 2.5 - 3.5 Partial Thromboplastin Time Reviewed date:01/13/2024 04:04:44 PM Interpretation: Performing Lab:[address] [phone] Notes/Report: Partial Thromboplastin Time 38.4 26.0-36.8 SEC For information regarding the monitoring of direct thrombin inhibitors, please refer to Pharmacy. Liver Panel Reviewed date:01/13/2024 04:05:24 PM Interpretation: Performing Lab:[address] [phone] Notes/Report: Bilirubin Total 0.8 0.0-1.0 mg/dL Bilirubin Direct 0.3 0.0-0.5 mg/dL Aspartate Amino Transferase 18 5-37 U/L Alanine Aminotransferase 16 0-40 U/L Total Protein 6.9 6.5-8.0 g/dL Albumin Level 4.0 3.5-5.0 g/dL Alkaline Phosphatase 72 39-117 U/L Basic Metabolic Panel Reviewed date:01/13/2024 04:06:37 PM Interpretation: Performing Lab:[facility], [address] [place] [phone] Notes/Report: Sodium 138 135-145 mmol/L Potassium 3.8 3.3-5.1 mmol/L Chloride 105 96-108 mmol/L Carbon Dioxide 25 22-29 mmol/L Anion Gap 12 12-20 Blood Urea Nitrogen 23 9-16 mg/dL Creatinine 1.02 0.5-1.4 mg/dL Creatinine Clr Calc Pharmacy 66.3 eGFR (calculated from the MDRD study equation) and eCrCl (calculated from the Cockcroft-Gault equation) are based on different parameters and may not yield comparable results. If eCrCl result is absurd, please check patient's height/weight. Estimated Glomerular Filt Rate > 60 NOTE: For -Lib[place] individuals, multiply the result by 1.210. Chronic Kidney Disease: Estimated GFR < 60 mL/min/1.73m2 Severe Kidney Disease: Estimated GFR < 15 mL/min/1.73m2 Glucose Random 131 60-115 mg/dL Calcium 9.6 8.4-10.2 mg/dL B Type Natriuretic Peptide Reviewed date:01/13/2024 04:04:32 PM Interpretation: Performing Lab:[facility], [address] [place] [phone] Notes/Report: B Type Natriuretic Peptide 246 <100 pg/mL For those patients who are being treated with Natrecor (nesiritide, recombinant BNP), BNP testing should be performed at least two hours post treatment in order to ensure that only endogenous levels of BNP are detected. US venous duplex LE LT Reviewed date:01/16/2024 01:42:02 PM Interpretation: Performing Lab: Notes/Report: [address] [address] Ultrasound Report Signed Patient: Steven Tiwari MR#: [id number] : 1945 Acct:[id number] Age/Sex: 78 / M ADM Date: 01/13/24 Loc: .ED Attending Dr: Ordering Physician: Shae Fernandez Date of Service: 01/13/24 Procedure(s): US venous duplex LE LT Accession Number(s): [id number] cc: Yonathan Womack MD; Shae Fernandez EXAMINATION: US VENOUS ULTRASOUND WITH DOPPLER LOWER EXTREMITY, LEFT CLINICAL INFORMATION: Left calf pain. Posterior knee pain. COMPARISON: None available. TECHNIQUE: Ultrasound of the deep veins is performed from the hip to the calf with compression sonography and color and pulse Doppler assessment. Spectral analysis with color-flow imaging is performed. FINDINGS: There is normal venous compression and respiratory variation and augmented flow. The visualized common femoral vein, superficial femoral vein, profunda femoral vein, popliteal vein, and the trifurcation region shows no evidence of deep venous thrombosis. There is a popliteal cyst measuring 3.6 x 0.9 x 2.4 cm. If the patient's symptoms persist, followup ultrasound in 5 days 7 days might be of value to exclude proximal propagation from a non-visualized calf vein. US/US venous duplex LE LT IMPRESSION: No DVT demonstrated in the left lower extremity. There is a left popliteal cyst measuring 3.6 x 0.9 x 2.4 cm. Dictated By: Domenico Romano Jr, DO Signed By: <Electronically signed by Domenico Romano Jr, DO in OV> 01/13/24 1639 DD/ 1540 TD/TT: Quality Assurance Lab Technician: ILIANA INR WHOLE BLOOD POC Reviewed date:02/02/2024 11:56:26 AM Interpretation: Performing Lab:[facility], [address] [place] [phone] Notes/Report: PT, INR - [facility] 2.0 0.9-1.1 METER #: [id number] INTERNATIONAL NORMALIZED RATIO (INR) REFERENCE RANGES Reference Range For patients not on anticoagulant therapy: 0.9 - 1.1 INR ranges for oral anticoagulant therapy: For prevention and treatment of venous thrombosis and pulmonary embolism: 2.0 - 3.0 For acute myocardial infarction with aspirin therapy: 2.0 - 3.0 For acute myocardial infarction without aspirin therapy: 3.0 - 4.0 For patients with mechanical prosthetic heart valves: 2.5 - 3.5 Prothrombin Time Whole Bld P OC Reviewed date:02/02/2024 11:56:57 AM Interpretation: Performing Lab:[facility], [address] [place] [phone] Notes/Report: Prothrombin Time Whole Bld POC 24.3 11.1-13.5 sec INR WHOLE BLOOD POC Reviewed date:02/21/2024 12:32:10 PM Interpretation: Performing Lab:[facility], [address] [place] [phone] Notes/Report: PT, INR - Anti [facility]ag Clinic 2.6 0.9-1.1 METER #: [id number] INTERNATIONAL NORMALIZED RATIO (INR) REFERENCE RANGES Reference Range For patients not on anticoagulant therapy: 0.9 - 1.1 INR ranges for oral anticoagulant therapy: For prevention and treatment of venous thrombosis and pulmonary embolism: 2.0 - 3.0 For acute myocardial infarction with aspirin therapy: 2.0 - 3.0 For acute myocardial infarction without aspirin therapy: 3.0 - 4.0 For patients with mechanical prosthetic heart valves: 2.5 - 3.5 Prothrombin Time Whole Bld P OC Reviewed date:02/21/2024 12:33:44 PM Interpretation: Performing Lab:[facility], [address] [place] [phone] Notes/Report: Prothrombin Time Whole Bld POC 30.9 11.1-13.5 sec INR WHOLE BLOOD POC Reviewed date:03/20/2024 12:25:26 PM Interpretation: Performing Lab:[facility], [address] [place] [phone] Notes/Report: PT, INR - [facility] 2.2 0.9-1.1 METER #: [id number] INTERNATIONAL NORMALIZED RATIO (INR) REFERENCE RANGES Reference Range For patients not on anticoagulant therapy: 0.9 - 1.1 INR ranges for oral anticoagulant therapy: For prevention and treatment of venous thrombosis and pulmonary embolism: 2.0 - 3.0 For acute myocardial infarction with aspirin therapy: 2.0 - 3.0 For acute myocardial infarction without aspirin therapy: 3.0 - 4.0 For patients with mechanical prosthetic heart valves: 2.5 - 3.5 Prothrombin Time Whole Bld P OC Reviewed date:03/20/2024 12:37:24 PM Interpretation: Performing Lab:[facility], [address] [place] [phone] Notes/Report: Prothrombin Time Whole Bld POC 26.6 11.1-13.5 sec REASON FOR REFERRAL Reason please deann archibald for left and right shoulder pain for physical therapy Diagnosis 1 Pain in left shoulde r (M25.512) Diagnosis 2 Pain in right should er (M25.511) Referral Organization Yonathan Womack MD Referring Provider First Name Yonathan Referring Provider Last Name Shanta Referring Provider Speciality Internal M edicine Referred Provider [facility] Referred Provider Specialty Physical The rapist General Notes Otilia Nova 10:29:38 AM EST > patient is setting up his own appt with them Referral Priority Routine Reason pain in left knee Diagnosis 1 [...] Referral Priority Routine Referral Appointment Date 03/22/2024 MEDICATIONS Medication SIG (Take, Route, Frequency, Duration) Notes Start Date End Date Status Magnesium 500 MG 1 tablet with a meal Orally Once a day Active Omeprazole 20 MG TAKE 1 CAPSULE BY MOUTH EVERY DAY 30 MINUTES BEFORE BREAKFAST for 90 Active Calcium 500 MG 1 tablet with food Orally Once a day Active FreeStyle Lancets - USE TO CHECK BLOOD SUGAR ONCE A DAY for 90 Active Vitamin D3 400 UNIT 1 capsule Orally Onc e a day Active Melatonin 3 MG 1 tablet at bedtime as needed Orally Once a day for 30 day(s) Not-Taking Triamcinolone Acetonide 0.1 % 1 application Externally Once a day for 30 days 07/23/2021 Active Nitrostat 0.4 MG as directed Sublingu al every 5 mins times 3 for 30 days 11/30/2016 Not-Taking Co Q 10 100 MG 1 capsule with a indy l Orally Once a day for 30 day(s) Active FreeStyle Lite Test - TEST BLOOD SUGAR O NCE EVERY DAY for 50 Active LORazepam 0.5 MG TAKE 1 TABLET BY CASSIUS TH EVERY DAY NEEDED Orally Once a day for 30 days 01/24/2024 Active Simvastatin 40 MG TAKE 1/2 TABLET BY MOUTH EVERY EVENING Active Furosemide 20 MG TAKE 1 TABLET BY CASSIUS TH EVERY DAY Active Entresto 24-26 MG 1 tablet Orally Twic e a day Active Tylenol Extra Strength 500 MG 1/2 tablet Orally every 6 hrs Not-Taking Warfarin Sodium 2.5 MG TAKE 3 TABLETS BY MOUTH 6 DAYS A WEEK AND 2 TABLETS BY MOUTH ONE DAY A WEEK. TAKE FOR 90 DAYS for 90 Active Eplerenone 25 MG TAKE 0.5 TABLET BY MOUTH EVERY DAY Orally Once a day Not-Taking Coreg CR 40 MG 1 capsule with food Orally Once a day Active Triamcinolone Acetonide 0.5 % 1 application to affected area Externally Twice a day for 30 days 10/03/2014 Not-Taking Spironolactone 25 MG 1 tablet Orally Active Imodium A-D 2 MG 1 tablet as needed Orally Four times a day Not-Taking IMMUNIZATIONS Vaccine Route Administration Date Status Comme nts DECLINED, FLU Unknown 10/10/2012 Administered DECLINED, PNEUMO Unknown 02/06/2013 Administered DECLINED, PREVNAR 13 Unknown 02/06/2013 Administered DECLINED, PNEUMO Unknown 04/06/2013 Administered Fluarix Quadrivalent Unknown 10/03/2014 Refused PPSV23 (Pnemovax) Unknown 10/03/2014 Refused Fluarix Quadrivalent Unknown 07/12/2016 Refused PPSV23 (Pnemovax) Unknown 12/31/2016 Refused Fluarix Quadrivalent Unknown 05/23/2017 Refused Fluarix Quadrivalent Unknown 05/26/2017 Refused Fluarix Quadrivalent Unknown 06/05/2018 Refused Prevnar 13 Unknown 08/29/2018 Refused Fluarix Quadrivalent Unknown 07/10/2019 Refused PPSV23 (Pnemovax) Unknown 08/24/2019 Refused Fluarix Quadrivalent Unknown 06/05/2020 Refused PPSV23 (Pnemovax) Unknown 06/05/2020 Refused Shingles Unknown 06/05/2020 Refused Covid Vaccine Unknown 02/27/2021 Refused Influenza High Dose Unknown 05/19/2021 Refused SOCIAL HISTORY Tobacco Use: Social History Observation Description Date Details (start date - stop date) Former Smoker NA - NA Sex Assigned At : Social History Observation Description Sex Assigned At Unknown Tobacco Use/Smoking Question Answer Notes Patient is a former smoker How long has it been since y ou last smoked? > 10 years Additional Findings: Tobacco Non-User Fo rmer smoker, currently using no form of tobacco Alcohol Screen Question Answer Notes Did you have a drink containing alcohol in the p ast year? No Points 0 Interpretation Negative PROBLEMS Problem Type ICD Code Onset Dates Problem Status W/U Status Risk SNOMED Code Notes Problem Panic attack (300.01) Active confirmed Panic attack (582587675) Problem Cardiomyopathy (425.4) Active confirmed Cardiomyopathy (28114381) Problem Unspecified asthma, uncomplicated (J45.909) Active confirmed 792257944 Problem Restless leg syndrom e (G25.81) Active confirmed 33489552 Problem Carotid artery disea se (I77.9) Active confirmed Carotid artery disease (555230252) Problem Vitamin D deficiency (E55.9) Active confirmed 11706569 Problem Anxiety (F41.9) Active confirmed 943412 02 Problem Hypomagnesemia (E83.42) Active confirmed Hypomagnesemia (664294848) Problem Other chronic pain (G89.29) Active confirmed 58413135 Problem Diverticulitis of large intestine without perforation or abscess with bleeding (K57.33) Active confirmed 9999908 Problem Prostate cancer (C61) Active confirmed 618009125 Problem Prediabetes (R73.09) Active confirmed 9 863331 Problem Low HDL (under 40) (E78.6) Active confirmed 531760744 Problem Acute idiopathic gou t of left foot (M10.072) Active confirmed 50081270 Problem Cervical disc diseas e (M50.90) Active confirmed 453041007 Problem Intrinsic eczema (L20.84) Active confirmed 17803141 Problem Gall stones (K80.20) Active confirmed 2 81281476 Problem History of prostate cancer (Z85.46) Active confirmed 464677545 Problem Kidney mass (N28.89) Active confirmed 3 90499941 Problem Dysthymia (F34.1) Active confirmed 7866 7006 Problem Anticoagulant long-term use (Z79.01) Active confirmed 894758180 Problem Nonalcoholic hepatosteatosis (K76.0) Active confirmed 778878281 Problem History of myocardia l infarction (I25.2) Active confirmed 241133223 Problem Reflux gastritis (K29.60) Active confirmed 29002777 Problem Sleep apnea, unspecified type (G47.30) Active confirmed 51199509 Problem Acute on chronic systolic congestive heart failure (I50.23) Active confirmed 403937326 Problem 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) Active confirmed 653060211 Problem Benign prostatic hyperplasia with lower urinary tract symptoms (N40.1) Active confirmed 690540012 Problem Pure hypercholesterolemia (E78.00) Active confirmed 238053523 Problem Low calcium levels (E83.51) Active confirmed 9141653 Problem Abnormal CT scan, kidney (R93.429) Active confirmed 039675702 Problem On bridging treatmen t with lovenox (Z79.01) Active confirmed 871590359 Problem 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) Active confirmed 768213725 Problem Atrial fibrillation, chronic (I48.20) Active confirmed 461329073 Problem 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) Active confirmed 504794521 VITAL SIGNS Blood pressure diastolic 66 mm Hg 02/21/2024 kayli ght is up 4 pounds since 01-19-24 Height 69 in 02/21/2024 weight is up 4 pounds since 01-19-24 Blood pressure systolic 120 mm Hg 02/21/2024 weig ht is up 4 pounds since 01-19-24 Weight 209 lbs 02/21/2024 weight is up 4 pounds since 01-19-24 BMI 30.86 kg/m2 02/21/2024 weight is up 4 pounds since 01-19-24 Encounters Encounter Location Date Provider Diagnosis Yonathan Womack MD [address] [place] [address] Drive [address] [place] [id number] 09/20/2023 Yonathan Womack Prediabetes R73.09 ; Annual physical exam Z00.00 ; Cerebrovascular accident (CVA) due to embolism of left anterior cerebral artery I63.422 ; Gall bladder polyp K82.4 ; Adrenal gland cyst E27.8 ; Depression screening Z13.31 ; Pure hypercholesterolemia E78.00 and Acute on chronic systolic congestive heart failure I50.23 Yonathan Womack MD [address] [place] [address] Drive [address] [place] [address] [id number] 09/13/2023 Yonathan Womack Prediabetes R73.09 ; Pure hypercholesterolemia E78.00 ; Vitamin D deficiency E55.9 ; Hypomagnesemia E83.42 and Acute on chronic systolic congestive heart failure I50.23 Yonathan Womack MD [address] [place] [address] [id number] 06/17/2023 Yonathan Womack UTI (urinary tract infection) N39.0 Yonathan Womack MD [address] [place] [id number] 07/28/2023 Yonathan Womack Grade I hemorrhoids K64.0 ; Mixed stress and urge urinary incontinence N39.46 and Pain in right shoulder M25.511 Yonathan Womack MD [address] [place] [address] [id number] 01/19/2024 Yonathan Womack Synovial cyst of lef t popliteal space M71.22 and Acute on chronic systolic congestive heart failure I50.23 Yonathan Womack MD [address] [place] [address] [id number] 02/21/2024 Yonathan Womack Pain in left knee M2 5.562 and Other chronic pain G89.29 Yonathan Womack MD [address] [place] [address] [id number] 04/15/2023 Yonathan Womack MD [address] [place] [address] [id number] 04/28/2023 Yonathan Womack MD [address] [place] [address] [id number] 04/28/2023 Yonathan Womack MD [address] [place] [address] [id number] 06/20/2023 Yonathan Womack MD [address] [place] [address] [id number] 07/22/2023 Yonathan Womack MD [address] [place] [address] [id number] 10/06/2023 Yonathan Womack MD [address] [place] [address] [id number] 10/07/2023 Yonathan Womack MD [address] [place] [address] [id number] 10/13/2023 Yonathan Womack MD [address] [place] [address] [id number] 10/20/2023 Yonathan Womack Adrenal gland cyst E 27.8 Yonathan Womack MD [address] [place] [address] [id number] 12/13/2023 Yonathan Womack MD [address] [place] [address] [id number] 01/24/2024 Yonathan Womack MD [address] [place] [address] [id number] 03/26/2024 Yonathan Womack MD [address] [place] [address] [id number] 04/10/2024 Yonathan Womack MD [address] [place] [address] [id number] 04/19/2023 Yonathan Womack History of prostate cancer Z85.46 ASSESSMENTS Encounter Date Diagnosis Assessment Notes Treatment Notes Treatment Clinical Notes 09/20/2023 Annual physical exam (ICD-10 - Z00.00) labs reviewed and discussed with patient, pending additional labs 09/20/2023 Prediabetes (ICD-10 - R73.09) good a1c, no need for medication at this time 09/13/2023 Prediabetes (ICD-10 - R73.09) 09/13/2023 Pure hypercholestero lemia (ICD-10 - E78.00) 07/28/2023 Grade I hemorrhoids (ICD-10 - K64.0) 07/28/2023 Mixed stress and urg e urinary incontinence (ICD-10 - N39.46) needs pull ups 01/19/2024 Acute on chronic sys tolic congestive heart failure (ICD-10 - I50.23) need notes from dr lisa from last week/ request made by phone to dr [facility] med records 01/19/2024 Synovial cyst of lef t popliteal space (ICD-10 - M71.22) possibly ruptured . will observe 02/21/2024 Other chronic pain ( ICD-10 - G89.29) 02/21/2024 Pain in left knee (I CD-10 - M25.562) needs wheelchair. [facility]. also needs medline 300 which is a pad because he doesn't have control of urine/ make referral to [facility] 04/19/2023 History of prostate cancer (ICD-10 - Z85.46) at this point does not sound like he has metastatic cancer to his bone since the pain moves around. so will cancer the bone scan 09/20/2023 Cerebrovascular acci dent (CVA) due to embolism of left anterior cerebral artery (ICD-10 - I63.422) is stable. does have some balance issue 09/13/2023 Vitamin D deficiency (ICD-10 - E55.9) 06/17/2023 UTI (urinary tract infection) (ICD-10 - N39.0) 07/28/2023 Pain in right should er (ICD-10 - M25.511) send to physical therapy/ orders given to patient he will be setting up his own appt 10/20/2023 Adrenal gland cyst ( ICD-10 - E27.8) 09/20/2023 Gall bladder polyp ( ICD-10 - K82.4) 09/13/2023 Hypomagnesemia (ICD- 10 - E83.42) 09/20/2023 Adrenal gland cyst ( ICD-10 - E27.8) order faxed to [facility] de[facility], pending diagnostic study 09/13/2023 Acute on chronic sys tolic congestive heart failure (ICD-10 - I50.23) 09/20/2023 Depression screening (ICD-10 - Z13.31) negative screen 09/20/2023 Pure hypercholestero lemia (ICD-10 - E78.00) stable, will continue current regiment 09/20/2023 Acute on chronic sys tolic congestive heart failure (ICD-10 - I50.23) stable, will continue current regiment PLAN OF TREATMENT Pending Test Test Name Order Date Electrocardiogram (EKG) 04/15/2016 Electrocardiogram (EKG) 05/26/2017 Electrocardiogram (EKG) 06/29/2018 MRI CERVICAL SPINE NO CONTRAST 2 NUC WHOLE BODY SCAN BONE 09/14/2019 US ABD 01/23/2021 US ABD 09/20/2023 CT chest wo con 04/22/2022 NM bone scan whole body 12/30/2022 US abdomen complete 03/12/2021 US abdomen complete 02/11/2022 Future Test Test Name Order Date US RENAL BILATERAL 10/20/2024 Next Appt Details Provider Name:Yonathan mendoza, 05/14/2024 10:15:00 AM, [address], [address], [place], [place], [id number], Provider Name:Yonathan Pan reji, 09/14/2024 07:15:00 AM, [address], [address], [place], [place], [phone], Provider Name:Yonathan Pan reji, 09/21/2024 11:00:00 AM, [address], [address], [place], [place], [phone], Insurance Providers Payer Name Payer Address Payer Phone Subscriber Number Group Number Insured Name Patient Relationship to Insured Coverage Start Date Coverage End Date [employer] [facility] [address] [place] [address] [phone] [id number] STEVEN TIWARI Self - patient is the insured [facility] [address] [place] [address] [phone] [id number] STEVEN TIWARI Self - patient is the insured MEDICAL (GENERAL) HISTORY Medical History History ICD Code cerebrovascular accident 2006 refuses a stress test due to adverse yenny nt in the past. 05/30/2013 - colonoscopy due in 3 years. refuses to have another 2016
== END 2024-04-05 10:06 | disposition home or self-care (01) ==
LOC: HO.HOS 09:41
PROVIDERS: PCP Internal Medicine; Visit Provider Physician Assistant
DX: M17.12 Unilateral primary osteoarthritis, left knee (principal); I48.0 Paroxysmal atrial fibrillation; N18.30 Chronic kidney disease, stage 3 unspecified; E11.9 Type 2 diabetes mellitus without complications; Z79.01 Long term (current) use of anticoagulants; I69.30 Unspecified sequelae of cerebral infarction
CPT/HCPCS: 20610; 99214

== ENCOUNTER → 2024-04-05 09:41 | Outpatient (BNVA) | payer MEDICARE, MEDICAID, SELFPAY | PROVIDERS: PCP Internal Medicine; Visit Provider Physician Assistant | DX: M17.12 Unilateral primary osteoarthritis, left knee (principal); I48.0 Paroxysmal atrial fibrillation; E11.22 Type 2 diabetes mellitus with diabetic chronic kidney disease; N18.30 Chronic kidney disease, stage 3 unspecified; I69.351 Hemiplegia and hemiparesis following cerebral infarction affecting right dominant side; Z79.01 Long term (current) use of anticoagulants | CPT/HCPCS: 20610; 99212; J1010 ==

== ENCOUNTER 2024-04-11 09:07 | Outpatient (REF) | payer MEDICARE, MEDICAID, SELFPAY ==
[2024-04-11 12:34] LABS: Anion Gap 10 (12-20); Blood Urea Nitrogen 22 mg/dL (9-16); Calcium 9.6 mg/dL (8.4-10.2); Carbon Dioxide 30 mmol/L (22-29); Chloride 102 mmol/L (96-108); Estimated Glomerular Filt Rate > 60; Glucose Random 116 mg/dL (60-115); Potassium 3.7 mmol/L (3.3-5.1); Sodium 138 mmol/L (135-145)
== END 2024-04-11 09:08 | disposition home or self-care (01) ==
LOC: HO.LAB 09:07
PROVIDERS: PCP Internal Medicine; Visit Provider Internal Medicine Cardiovascular Disease
DX: I50.20 Unspecified systolic (congestive) heart failure (principal)
CPT/HCPCS: 36415; 80048

== ENCOUNTER 2024-04-17 10:16 | Outpatient (AMB) | payer MEDICARE, MEDICAID, SELFPAY ==
--- NOTE | 2024-04-17 10:21 | MHC.OFFVISCO ---
Intake Intake Visit Reasons: Anticoagulation Allergies adenosine Allergy (Severe, Verified 04/17/24 10:17) cardiac, elevated BP, Stroke Gadolinium-Containing Contrast Medi Allergy (Severe, Verified 04/17/24 10:17) red eyes Iodinated Contrast Media [CONTRAST, IV] Allergy (Severe, Verified 04/17/24 10:17) Seizure carvedilol Allergy (Intermediate, Verified 04/17/24 10:17) disorientation erythromycin base Adverse Reaction (Unknown, Verified 04/17/24 10:17) Gut pain , Abdominal Pain, GI upset Medication List - Last Reconciled 04/17/24 by Christianne Dunn RN amoxicillin 500 mg PO BID calcium carbonate 1,000 mg PO DAILY carboxymethylcellulose sodium 0.5% (Refresh Tears) 1 drp ophthalmic (eye) BID carvedilol phosphate ER (Coreg CR) 40 mg PO DAILY cholecalciferol (vitamin D3) (Vitamin D3) 10 mcg PO DAILY coenzyme Q10 (CoQ-10) 100 mg PO DAILY furosemide 20 mg PO BID loperamide 2 mg PO Q4H PRN lorazepam 0.5 mg PO BID magnesium 500 mg PO DAILY omeprazole 20 mg PO DAILY@0630 ondansetron HCl 4 mg PO Q6H PRN sacubitril-valsartan 24-26 mg (Entresto) 1 tab PO BID simvastatin 20 mg PO BEDTIME spironolactone 25 mg PO DAILY warfarin See Protocol 5mg tuesday/ 7.5mg x 5 days; Nursing Note INR: 2.1- in therapeutic range of 2-3 Medications and supplements reviewed- furosemide increased to bid pt aware this may lower inr, will increase reds No changes in health, diet, medications, or supplements, Denies any signs and symptoms of bleeding or bruising or clotting. Bleeding, bruising, clotting discussed Nutritional guidance given - increase reds Dose: 5mg x 1. 7.5mg x 6 F/U INR: 2 weeks recommended, pt ref earlier than 4 weeks Patient verbalizes understanding of instructions given pt states had knee injection approx 2 weeks ago- amb with cane pt states occ numbness to face- states dry box tender aware and had work up Anti-Coag Initial Assessment Social Hx Patient Tobacco Use Status: Never used Tobacco alcohol intake: never Alcohol intake frequency: does not drink Coding Level of Care Code Est Patient Level 1 Diagnoses Current use of anticoagulant therapy Z79.01 Results AMB INR Fingerstick AMB INR Fingerstick 2.1 Last Edit by Christianne Dunn RN on 04/17/24 10:24 interface delay Assessment & Plan Assessment & Plan (1) Current use of anticoagulant therapy: Comment: Warfarin Code(s): Z79.01 - senior living (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
[2024-04-17 10:30] LABS: ~PT, ~INR - Anti Coag Clinic 2.1 (0.9-1.1)
== END 2024-04-17 10:29 | disposition home or self-care (01) ==
LOC: HO.ACS 10:16
PROVIDERS: PCP Internal Medicine; Visit Provider Internal Medicine
DX: Z79.01 Long term (current) use of anticoagulants (principal)

== ENCOUNTER → 2024-04-17 10:16 | Outpatient (BNVA) | payer MEDICARE, MEDICAID, SELFPAY | PROVIDERS: PCP Internal Medicine; Visit Provider Internal Medicine | DX: I48.20 Chronic atrial fibrillation, unspecified (principal); Z79.01 Long term (current) use of anticoagulants; Z51.81 Encounter for therapeutic drug level monitoring | CPT/HCPCS: 85610; 99211 ==

== ENCOUNTER 2024-04-26 11:20 | Outpatient (RCR) | payer MEDICARE, MEDICAID, SELFPAY | END 2024-09-28 15:35 | disposition home or self-care (01) | LOC: HO.PT 11:20 | PROVIDERS: PCP Internal Medicine; Visit Provider Internal Medicine | DX: M50.90 Cervical disc disorder, unspecified, unspecified cervical region (principal); I63.422 Cerebral infarction due to embolism of left anterior cerebral artery ==

== ENCOUNTER 2024-04-30 08:58 | Outpatient (REF) | payer MEDICARE, MEDICAID, SELFPAY ==
[2024-04-30 10:24] LABS: Prostate Specific Antigen 0.19 ng/mL (<0.05-4.0)
== END 2024-04-30 08:59 | disposition home or self-care (01) ==
LOC: HO.LAB 08:58
PROVIDERS: PCP Internal Medicine; Visit Provider Urology
DX: C61 Malignant neoplasm of prostate (principal); Z12.5 Encounter for screening for malignant neoplasm of prostate
CPT/HCPCS: 36415; 84153

== ENCOUNTER 2024-05-15 08:54 | Outpatient (AMB) | payer MEDICARE, MEDICAID, SELFPAY ==
--- NOTE | 2024-05-15 09:06 | MHC.OFFVISCO ---
Intake Intake Visit Reasons: Anticoagulation Allergies adenosine Allergy (Severe, Verified 05/15/24 09:00) cardiac, elevated BP, Stroke Gadolinium-Containing Contrast Medi Allergy (Severe, Verified 05/15/24 09:00) red eyes Iodinated Contrast Media [CONTRAST, IV] Allergy (Severe, Verified 05/15/24 09:00) Seizure carvedilol Allergy (Intermediate, Verified 05/15/24 09:00) disorientation erythromycin base Adverse Reaction (Unknown, Verified 05/15/24 09:00) Gut pain , Abdominal Pain, GI upset Medication List - Last Reconciled 05/15/24 by Christianne Dunn RN amoxicillin 500 mg PO BID calcium carbonate 1,000 mg PO DAILY carboxymethylcellulose sodium 0.5% (Refresh Tears) 1 drp ophthalmic (eye) BID carvedilol phosphate ER (Coreg CR) 40 mg PO DAILY cholecalciferol (vitamin D3) (Vitamin D3) 10 mcg PO DAILY coenzyme Q10 (CoQ-10) 100 mg PO DAILY furosemide 40 mg PO DAILY loperamide 2 mg PO Q4H PRN lorazepam 0.5 mg PO BID magnesium 500 mg PO DAILY omeprazole 20 mg PO DAILY@0630 ondansetron HCl 4 mg PO Q6H PRN sacubitril-valsartan 24-26 mg (Entresto) 1 tab PO BID simvastatin 20 mg PO BEDTIME spironolactone 25 mg PO DAILY warfarin See Protocol 5mg tuesday/ 7.5mg x 5 days; Nursing Note INR 1.8-?? out of therapeutic range of 2-3 Medications and supplements reviewed Patient status: pt amb with cane Medications or supplements: states furosemide 40mg daily, not 20mg bid Diet: appetite is good, states had brussel sprouts Denies any signs and symptoms of bleeding or clotting or unusual bruising Bleeding, bruising, clotting discussed Nutritional guidance given: no greens for 2 days, eat a red today/beets Dose: take 7.5mg today and tomm then cont prev dosing, 7.5mg x 6, 5mg x 1 F/U INR Date : 2 weeks? Patient verbalizing understanding of instructions given. 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
[2024-05-15 09:07] LABS: Prothrombin Time Whole Bld POC 21.1 sec (11.1-13.5); ~PT, ~INR - Anti Coag Clinic 1.8 (0.9-1.1)
--- NOTE | 2024-05-15 10:45 | MHC.OFFVISCO ---
Intake Intake Visit Reasons: Anticoagulation Allergies adenosine Allergy (Severe, Verified 05/15/24 09:00) cardiac, elevated BP, Stroke Gadolinium-Containing Contrast Medi Allergy (Severe, Verified 05/15/24 09:00) red eyes Iodinated Contrast Media [CONTRAST, IV] Allergy (Severe, Verified 05/15/24 09:00) Seizure carvedilol Allergy (Intermediate, Verified 05/15/24 09:00) disorientation erythromycin base Adverse Reaction (Unknown, Verified 05/15/24 09:00) Gut pain , Abdominal Pain, GI upset Medication List - Last Reconciled 05/15/24 by Christianne Dunn RN amoxicillin 500 mg PO BID calcium carbonate 1,000 mg PO DAILY carboxymethylcellulose sodium 0.5% (Refresh Tears) 1 drp ophthalmic (eye) BID carvedilol phosphate ER (Coreg CR) 40 mg PO DAILY cholecalciferol (vitamin D3) (Vitamin D3) 10 mcg PO DAILY coenzyme Q10 (CoQ-10) 100 mg PO DAILY furosemide 40 mg PO DAILY loperamide 2 mg PO Q4H PRN lorazepam 0.5 mg PO BID magnesium 500 mg PO DAILY omeprazole 20 mg PO DAILY@0630 ondansetron HCl 4 mg PO Q6H PRN sacubitril-valsartan 24-26 mg (Entresto) 1 tab PO BID simvastatin 20 mg PO BEDTIME spironolactone 25 mg PO DAILY warfarin See Protocol 5mg tuesday/ 7.5mg x 5 days; Nursing Note INR1.8-?? out of therapeutic range of 2-3 pt denies missed dose Medications and supplements reviewed Patient status: amb with cane Medications or supplements: pt states furosemide 40mg daily instead of 20mg bid Diet: appetite good states had brussel sprouts Denies any signs and symptoms of bleeding or clotting or unusual bruising Bleeding, bruising, clotting discussed Nutritional guidance given: no greens for 2 days, eat reds to raise Dose: take 7.5mg warfarin today and tomm then cont reg 7.5mg x 6, 5mg x 1 F/U INR Date : 2 weeks?? Patient verbalizing understanding of instructions given. Anti-Coag Initial Assessment Social Hx Patient Tobacco Use Status: Never used Tobacco alcohol intake: never Alcohol intake frequency: does not drink Questionnaires HAS-BLED Does the patient had uncontrolled Hypertension?: No Does the patient have renal disease?: Yes Does the patient have liver disease?: Yes (pt states fatty liver) Does the patient have a history of stroke?: Yes Has the patient had major bleeding or predisposition to bleeding?: Yes Does the patient have labile INRs?: No Is the patient over 65 years of age?: Yes Is the patient on medications that gives them a predisposition to bleeding?: Yes Does the patient use alcohol?: No HAS-BLED Score: 6 CHADSVASC Age: 75 or over Gender: Male Does the patient have a history of CHF?: Yes Does the patient have a history of Hypertension?: Yes Does the patient have a history of Stroke/TIA/Thromboembolism?: Yes Does the patient have a history of Vascular Disease (prior [place], PAD or aortic plaque)?: Yes Does the patient have a history of Diabetes?: Yes CHADS VACS Score: 8 Toña Prediction Score Rsk VTE Active Cancer: No Previous VTE, excluding superficial vein thrombosis: No Reduced mobility: Yes Already known Thrombophilic Condition: No With-in last month Trauma and/or Surgery: No Elderly 70 year or older: Yes Heart and/or Respiratory Failure: Yes Acute Myocardial infarction and/or Ischemic Stroke: Yes Acute Infection and/or Rheumatologic Disorder: No Obesity (BMI 30 or greater): Yes Ongoing Hormonal Treatment: No Score: 7 Toña Score less than 4; Low Risk of VTE Toña Score 4 or greater; High Risk of VTE Coding Level of Care Code Est Patient Level 1 Diagnoses Current use of anticoagulant therapy Z79.01 Assessment & Plan Assessment & Plan (1) Current use of anticoagulant therapy: Comment: Warfarin Code(s): Z79.01 - halfway (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
== END 2024-05-15 09:31 | disposition home or self-care (01) ==
LOC: HO.ACS 08:54
PROVIDERS: PCP Internal Medicine; Visit Provider Internal Medicine
DX: Z79.01 Long term (current) use of anticoagulants (principal)

== ENCOUNTER → 2024-05-15 08:54 | Outpatient (BNVA) | payer MEDICARE, MEDICAID, SELFPAY | PROVIDERS: PCP Internal Medicine; Visit Provider Internal Medicine | DX: I48.20 Chronic atrial fibrillation, unspecified (principal); Z79.01 Long term (current) use of anticoagulants; Z51.81 Encounter for therapeutic drug level monitoring | CPT/HCPCS: 85610; 99211 ==

== ENCOUNTER 2024-05-29 09:46 | Outpatient (AMB) | payer MEDICARE, MEDICAID, SELFPAY ==
--- NOTE | 2024-05-15 09:13 | MHC.OFFVISCO ---
Intake Intake Visit Reasons: Anticoagulation Allergies adenosine Allergy (Severe, Verified 05/15/24 09:00) cardiac, elevated BP, Stroke Gadolinium-Containing Contrast Medi Allergy (Severe, Verified 05/15/24 09:00) red eyes Iodinated Contrast Media [CONTRAST, IV] Allergy (Severe, Verified 05/15/24 09:00) Seizure carvedilol Allergy (Intermediate, Verified 05/15/24 09:00) disorientation erythromycin base Adverse Reaction (Unknown, Verified 05/15/24 09:00) Gut pain , Abdominal Pain, GI upset Anti-Coag Initial Assessment Social Hx Patient Tobacco Use Status: Never used Tobacco alcohol intake: never Alcohol intake frequency: does not drink Questionnaires HAS-BLED Does the patient had uncontrolled Hypertension?: No Does the patient have renal disease?: Yes Does the patient have liver disease?: Yes (pt states fatty liver) Does the patient have a history of stroke?: Yes Has the patient had major bleeding or predisposition to bleeding?: Yes (post radiation per pt) Does the patient have labile INRs?: No Is the patient over 65 years of age?: Yes Is the patient on medications that gives them a predisposition to bleeding?: Yes Does the patient use alcohol?: No HAS-BLED Score: 6 CHADSVASC Age: 75 or over Gender: Male Does the patient have a history of CHF?: Yes Does the patient have a history of Hypertension?: Yes Does the patient have a history of Stroke/TIA/Thromboembolism?: Yes Does the patient have a history of Vascular Disease (prior [place], PAD or aortic plaque)?: Yes Does the patient have a history of Diabetes?: Yes CHADS VACS Score: 8 Toña Prediction Score Rsk VTE Active Cancer: No Previous VTE, excluding superficial vein thrombosis: No Reduced mobility: Yes Already known Thrombophilic Condition: No With-in last month Trauma and/or Surgery: No Elderly 70 year or older: Yes Heart and/or Respiratory Failure: Yes Acute Myocardial infarction and/or Ischemic Stroke: Yes Acute Infection and/or Rheumatologic Disorder: No Obesity (BMI 30 or greater): Yes Ongoing Hormonal Treatment: No Score: 7 Toña Score less than 4; Low Risk of VTE Toña Score 4 or greater; High Risk of VTE Coding Level of Care Code Est Patient Level 1 Diagnoses Current use of anticoagulant therapy Z79.01 Assessment & Plan Assessment & Plan (1) Current use of anticoagulant therapy: Comment: Warfarin Code(s): Z79.01 - 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
--- NOTE | 2024-05-29 10:11 | MHC.OFFVISCO ---
Intake Intake Visit Reasons: Anticoagulation Allergies adenosine Allergy (Severe, Verified 05/29/24 09:46) cardiac, elevated BP, Stroke Gadolinium-Containing Contrast Medi Allergy (Severe, Verified 05/29/24 09:46) red eyes Iodinated Contrast Media [CONTRAST, IV] Allergy (Severe, Verified 05/29/24 09:46) Seizure carvedilol Allergy (Intermediate, Verified 05/29/24 09:46) disorientation erythromycin base Adverse Reaction (Unknown, Verified 05/29/24 09:46) Gut pain , Abdominal Pain, GI upset Nursing Note INR: 2.0 in therapeutic range Medications and supplements reviewed May need pacemaker defib in August, c/o abd pain under right rib - states bother hims for years and wonder if gallbladder or liver or something- enc to discuss with md maybe Ultra sound to check, enc to stop dairy and less greasy tyep foods for a few weeks to see if helps, and maybe a gallbadder type diet Denies any signs and symptoms of bleeding or bruising or clotting. 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
== END 2024-05-29 10:16 | disposition home or self-care (01) ==
LOC: HO.ACS 09:46
PROVIDERS: PCP Internal Medicine; Visit Provider Internal Medicine
DX: Z79.01 Long term (current) use of anticoagulants (principal)

== ENCOUNTER → 2024-05-29 10:00 | Outpatient (BNVA) | payer MEDICARE, MEDICAID, SELFPAY | PROVIDERS: PCP Internal Medicine; Visit Provider Internal Medicine | DX: I48.20 Chronic atrial fibrillation, unspecified (principal); Z79.01 Long term (current) use of anticoagulants; Z51.81 Encounter for therapeutic drug level monitoring | CPT/HCPCS: 85610; 99211 ==

== ENCOUNTER 2024-06-26 09:44 | Outpatient (AMB) | payer MEDICARE, MEDICAID, SELFPAY ==
[2024-06-26 10:03] LABS: Prothrombin Time Whole Bld POC 31.3 sec (11.1-13.5); ~PT, ~INR - Anti Coag Clinic 2.6 (0.9-1.1)
--- NOTE | 2024-06-26 10:03 | MHC.OFFVISCO ---
Intake Intake Visit Reasons: Anticoagulation Allergies adenosine Allergy (Severe, Verified 06/26/24 09:56) cardiac, elevated BP, Stroke Gadolinium-Containing Contrast Medi Allergy (Severe, Verified 06/26/24 09:56) red eyes Iodinated Contrast Media [CONTRAST, IV] Allergy (Severe, Verified 06/26/24 09:56) Seizure carvedilol Allergy (Intermediate, Verified 06/26/24 09:56) disorientation erythromycin base Adverse Reaction (Unknown, Verified 06/26/24 09:56) Gut pain , Abdominal Pain, GI upset Medication List - Last Reconciled 06/26/24 by Christianne Dunn, RN carboxymethylcellulose sodium 0.5% (Refresh Tears) 1 drp ophthalmic (eye) BID carvedilol phosphate ER (Coreg CR) 40 mg PO DAILY coenzyme Q10 (CoQ-10) 100 mg PO DAILY furosemide 40 mg PO DAILY loperamide 2 mg PO Q4H PRN lorazepam 0.5 mg PO BID omeprazole 20 mg PO DAILY@0630 ondansetron HCl 4 mg PO Q6H PRN sacubitril-valsartan 24-26 mg (Entresto) 1 tab PO BID simvastatin 20 mg PO BEDTIME spironolactone 25 mg PO DAILY warfarin See Protocol 5mg tuesday/ 7.5mg x 5 days; Nursing Note INR: 2.6- in therapeutic range of 2-3 Medications and supplements reviewed- pt not taking vit d, calcium and magnesium - he states will let md know No changes in health, diet, medications, or supplements, - pt states gall bladder issues and upcoming appt dr mckoy Denies any signs and symptoms of bleeding or bruising or clotting. 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
== END 2024-06-26 10:12 | disposition home or self-care (01) ==
LOC: HO.ACS 09:44
PROVIDERS: PCP Internal Medicine; Visit Provider Internal Medicine
DX: Z79.01 Long term (current) use of anticoagulants (principal)

== ENCOUNTER → 2024-06-26 09:44 | Outpatient (BNVA) | payer MEDICARE, MEDICAID, SELFPAY | PROVIDERS: PCP Internal Medicine; Visit Provider Internal Medicine | DX: I48.20 Chronic atrial fibrillation, unspecified (principal); Z79.01 Long term (current) use of anticoagulants; Z51.81 Encounter for therapeutic drug level monitoring | CPT/HCPCS: 85610; 99211 ==

== ENCOUNTER → 2024-07-05 12:01 | Outpatient (REF) | payer MEDICARE, MEDICAID, SELFPAY ==
--- NOTE | 2024-07-05 12:05 | CA_ITS ---
Transthoracic Echocardiogram Patient (Last, First, Middle): Russell Tiwari A Gender: Male Date of : 1945 Age: 79 Procedure Date: 07/05/2024 Procedure Type: Transthoracic Echocardiogram Location: OP Height: 177.8 cm Weight: 92.99 kg BSA: 2.11 m2 Heart Rate: 72 bpm BP: 108 / 64 mmHg Molecular Pathologist: SB Referring MD: Eddie Granados MD Research Group Director: Azeem Clayton MD Symptoms: HFrEF I50.20 Study Quality: Technically Difficult ECG Rhythm: Sinus Conclusions: - 1. Moderately dilated ventricle with severely reduced LV ejection fraction of 25-30% with underlying regional wall motion abnormality consistent with ischemic cardiomyopathy with grade 1 diastolic dysfunction 2. Cardiac valvular Dopplers within normal limits 3. Normal measured RV systolic pressure 4. Mildly dilated ascending aorta at 3.9 cm 5. Small pericardial effusion Findings Procedure Information Contrast agent, definity, is being given per protocol without apparent complications. Left Ventricle Moderately increased left ventricular cavity size. There is mildly increased left ventricular wall thickness. The left ventricular systolic function is severely decreased. The visually estimated ejection fraction is between 25 30%. There is evidence of regional wall motion abnormalities. Spectral Doppler is indicative of an impaired relaxation filling pattern. E/E prime ratio is <8, consistent with normal filling pressures. Evidence suggests grade I (mild) diastolic dysfunction. Right Ventricle The right ventricle was not well visualized. Atria The left atrium was not well visualized. Interatrial shunt cannot be excluded. The right atrium was not well visualized. Aortic Valve Normal aortic valve structure and function. There is mild calcification of the aortic valve. There is no aortic valve stenosis. There is no aortic valve regurgitation. Mitral Valve Normal mitral valve structure and function. There is trace mitral valve regurgitation. There is no mitral valve stenosis. Pulmonic Valve The pulmonic valve was not well visualized. Tricuspid Valve Likely normal tricuspid valve structure and function. There is trace tricuspid valve regurgitation. The right ventricular systolic pressure is normal. The right ventricular systolic pressure is 24 mmHg. Normal right atrial pressure. There is no evidence of pulmonary hypertension. Great Vessels The aorta was not well visualized. The pulmonary artery was not well visualized. There is mild dilatation of the ascending aorta measuring 3.90 cm. Venous The inferior vena cava is normal in size and collapses greater than 50% with inspiration. Pericardium/Pleural There is a small circumferential pericardial effusion. Prior Study Comparison No significant change compared to prior study dated: 06/22/2023. Measurements 2D Linear Measurements IVSd: 1.07 0.6-0.9/0.6-1.0 cm LVIDd: 6.97 3.9-5.3/4.2-5.9 cm LVIDd Index: 3.30 2.4-3.2/2.2-3.1 cm/m2 LVIDs: 6.18 2.0-3.6 cm LA Diam: 3.40 2.7-3.8/3.0-4.0 cm LAIDs Index: 1.61 1.5-2.3 cm/m2 LVOT Diam: 2.30 3.0+(-)1.3 cm Mitral Valve MV VTI: 0.19 MV Pk Kenneth: 1.06 MV Mn Kenneth: 0.68 MV Pk Grad: 4.00 MV Mn Grad: 2.00 MVA Continuity: 3.06 Aortic Valve AoV Pk Kenneth: 0.91 AoV Pk Grad: 3.00 STACIE: 3.14 LVOT LVOT Pk Kenneth: 0.70 LVOT Mn Kenneth: 0.53 LVOT VTI: 0.14 LVOT Pk Grad: 2.00 LVOT Mn Grad: 1.00 LVOT Diam: 2.30 LVOT Area: 4.15 Right Ventricle TAPSE (mm): 19.10 Tricuspid Valve TR Pk Kenneth: 2.29 TR Pk Grad: 21.00 RA Press: 3.00 RVSP: 24.00 Great Vessels Aorta Sinus of Valsalva: 3.80 2.0-3.5 cm Ao Asc: 3.90 2.1-3.4 cm Pulmonary Valve PV Pk Kenneth: 0.70 Peak PV Grad: 2.00 Updated in Other Vendor System with Status of Final Azeem Clayton MD electronically signed on 07/05/2024 2:59:45 PM with status of Final
== END ==
LOC: HO.CARD 12:01
PROVIDERS: PCP Internal Medicine; Visit Provider Internal Medicine Cardiovascular Disease
DX: I50.20 Unspecified systolic (congestive) heart failure (principal)
CPT/HCPCS: 93306; Q9957

== ENCOUNTER → 2024-07-05 12:05 | Outpatient (BNV) | payer MEDICARE, MEDICAID, SELFPAY | PROVIDERS: PCP Internal Medicine; Visit Provider Internal Medicine Cardiovascular Disease | DX: I50.20 Unspecified systolic (congestive) heart failure (principal); I25.5 Ischemic cardiomyopathy; I35.8 Other nonrheumatic aortic valve disorders | CPT/HCPCS: 93306 ==

== ENCOUNTER 2024-07-24 09:16 | Outpatient (AMB) | payer MEDICARE, MEDICAID, SELFPAY ==
[2024-07-24 09:27] LABS: Prothrombin Time Whole Bld POC 32.5 sec (11.1-13.5); ~PT, ~INR - Anti Coag Clinic 2.7 (0.9-1.1)
--- NOTE | 2024-07-24 09:33 | MHC.OFFVISCO ---
Intake Intake Visit Reasons: Anticoagulation Allergies adenosine Allergy (Severe, Verified 07/24/24 09:16) cardiac, elevated BP, Stroke Gadolinium-Containing Contrast Medi Allergy (Severe, Verified 07/24/24 09:16) red eyes Iodinated Contrast Media [CONTRAST, IV] Allergy (Severe, Verified 07/24/24 09:16) Seizure carvedilol Allergy (Intermediate, Verified 07/24/24 09:16) disorientation erythromycin base Adverse Reaction (Unknown, Verified 07/24/24 09:16) Gut pain , Abdominal Pain, GI upset Medication List - Last Reconciled 07/24/24 by Evelyn Arzate, RN carboxymethylcellulose sodium 0.5% (Refresh Tears) 1 drp ophthalmic (eye) BID carvedilol phosphate ER (Coreg CR) 40 mg PO DAILY coenzyme Q10 (CoQ-10) 100 mg PO DAILY furosemide 40 mg PO DAILY lorazepam 0.5 mg PO BID omeprazole 20 mg PO DAILY@0630 sacubitril-valsartan 24-26 mg (Entresto) 1 tab PO BID simvastatin 20 mg PO BEDTIME spironolactone 25 mg PO DAILY warfarin See Protocol 5mg tuesday/ 7.5mg x 5 days; Nursing Note Amb to [facility] using cane, feeling well- no date yet for pacemaker insertion,sts he occassionally blacks out Medications and supplements reviewed No changes in health, diet, medications, or supplements, sts he will be going off his coreg for another med not sure when that is going to happen Denies any signs and symptoms of bleeding,bruising, or clotting. Bleeding, bruising, clotting discussed INR 2.7 in therapeutic range dose: continue usual 3.75mg daily Nutritional guidance given eat a balanced diet consistently F/U INR: 4 weeks, earler if any date for pacemaker Patient verbalizes understanding of instructions given Call to Dr Womack office spoke with AMBER jacobson INR in range, no date for pacemaker, pt reports Black outs Anti-Coag Initial Assessment Social Hx Patient Tobacco Use Status: Never used Tobacco alcohol intake: never Alcohol intake frequency: does not drink Coding Level of Care Code Est Patient Level 1 Diagnoses Current use of anticoagulant therapy Z79.01 Time Spent (min) 15 Assessment & Plan Assessment & Plan (1) Current use of anticoagulant therapy: Comment: Warfarin 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
== END 2024-07-24 09:43 | disposition home or self-care (01) ==
LOC: HO.ACS 09:16
PROVIDERS: PCP Internal Medicine; Visit Provider Internal Medicine
DX: Z79.01 Long term (current) use of anticoagulants (principal)

== ENCOUNTER → 2024-07-24 09:16 | Outpatient (BNVA) | payer MEDICARE, MEDICAID, SELFPAY | PROVIDERS: PCP Internal Medicine; Visit Provider Internal Medicine | DX: I48.20 Chronic atrial fibrillation, unspecified (principal); Z79.01 Long term (current) use of anticoagulants; Z51.81 Encounter for therapeutic drug level monitoring | CPT/HCPCS: 85610; 99211 ==

== ENCOUNTER 2024-07-27 11:28 | Outpatient (AMB) | payer MEDICARE, MEDICAID, SELFPAY ==
--- NOTE | 2024-07-27 11:28 | A.OFFVIS_ITS ---
Vital Signs 07/27/24 11:41 Height 5 ft 8 in Weight 209 lb BMI 31.8 BP 120/78 Blood Pressure Location Lt brachial Position Sitting Intake Visit Reasons: gallbladder? Intake Note: Patient is seen in office for evaluation of the gallbladder. Pt c/o: not interested in surgical treatment, Dx congestive heart failure stage 3, does not do well with anesthesia, has pain in the RUQ radiates to the back, pinching, burning, pain wakes him up at night, denies nausea, vomit, bowels movements are irregular us:10/06/23 Duplicating Machine Mechanic Required: No Accompanied by: Self / Same As Patient Allergies adenosine Allergy (Severe, Verified 07/27/24 11:35) cardiac, elevated BP, Stroke Gadolinium-Containing Contrast Medi Allergy (Severe, Verified 07/27/24 11:35) red eyes Iodinated Contrast Media [CONTRAST, IV] Allergy (Severe, Verified 07/27/24 11:35) Seizure carvedilol Allergy (Intermediate, Verified 07/27/24 11:35) disorientation erythromycin base Adverse Reaction (Unknown, Verified 07/27/24 11:35) Gut pain , Abdominal Pain, GI upset Medication List - Last Reconciled 07/27/24 by Simone Mesa MD carboxymethylcellulose sodium 0.5% (Refresh Tears) 1 drp ophthalmic (eye) BID carvedilol phosphate ER (Coreg CR) 40 mg PO DAILY coenzyme Q10 (CoQ-10) 100 mg PO DAILY furosemide 40 mg PO DAILY lorazepam 0.5 mg PO BID omeprazole 20 mg PO DAILY@0630 sacubitril-valsartan 24-26 mg (Entresto) 1 tab PO BID simvastatin 20 mg PO BEDTIME spironolactone 25 mg PO DAILY warfarin See Protocol 5mg tuesday/ 7.5mg x 5 days; HPI Comments Details: 79-year-old male patient presenting for evaluation of gallbladder symptoms. He has a significant past medical history which includes an old myocardial infarction, congestive heart failure, cerebrovascular accident, atrial fibrillation on warfarin with a recent echocardiogram performed on 07/05/2024 which revealed a moderately dilated ventricle with severe reduced LV ejection fraction of 25-30% with underlying regional wall motion abnormality consistent with ischemic cardiomyopathy with grade 1 diastolic dysfunction. He reports having occasional episodes of abdominal pain in the right upper quadrant radiating to the right flank which typically occur several hours after eating greasy foods. Denies nausea or vomiting. The pain is generally short in duration and resolved spontaneously. He underwent evaluation with an ultrasound of the abdomen which revealed a 1.9 cm maximal length gallbladder polyp at the base of the gallbladder. He presents today to discuss possible options regarding his gallbladder symptoms. He understands completely that his heart disease limits his ability to undergo surgery and is not interested in undergo cholecystectomy. He is looking for other options to limit his symptoms. FORMERLY [facility], [facility] Medical History Anxiety Myocardial infarct, old CHF (congestive heart failure) CVA (cerebral vascular accident) A-fib Surgical History History of appendectomy Social History Household Members: None Housing: House Do you presently have visiting nurse or other home services: Yes Alcohol intake: never Patient Tobacco Use Status: Never used Tobacco service: Yes Current occupational status: disabled Review of Systems Const All systems reviewed & are unremarkable except as noted in HPI and below Denies chills, Denies fever(s), Denies headache(s), Denies poor appetite and Denies weakness ENT Denies headache(s) Card Reports rapid heart rate, Reports palpitations and Reports dyspnea Resp Denies hemoptysis, Reports dyspnea and Denies wheezing GI Reports abdominal pain, Denies diarrhea, Denies nausea, Denies vomiting and Denies hematemesis Denies difficulty urinating and Denies urinary frequency Musc Denies back pain, Denies muscle weakness and Denies numbness Skin/Breast Denies changing lesions and Denies unusual bruising Neuro Denies headache(s), Denies numbness, Denies paresthesias and Denies weakness Psych Denies anxiety and Denies depression Endo Reports palpitations Armen/Lymph Denies lymphadenopathy Aller/Immun Denies wheezing Physical Exam Const General: cooperative and no acute distress Nutritional Appearance: well nourished Orientation/consciousness: patient oriented x3 Limitations: no limitations HEENT Head: Yes normocephalic and Yes atraumatic Ears: hearing grossly normal bilaterally Resp Effort & Inspection: normal respiratory effort, no audible wheezes, no cough and no respiratory distress Cardio Rhythm: abnormal rhythm GI Other: Soft, nondistended, nontender, negative Amezcua sign, no rebound, guarding, or rigidity. Inspection: Yes normal to inspection Skin Other: Warm, dry, no rash Neuro General: patient oriented x3 Assessment & Plan Assessment & Plan (1) Gallbladder polyp: Code(s): K82.4 - Cholesterolosis of gallbladder Category: Medical Plan 79-year-old male patient presenting with complaints of abdominal pain in the right upper quadrant radiating to the back. Workup with ultrasound revealed a large gallbladder polyp located at the neck of the gallbladder. This is greater than 1 cm in length and normally would require laparoscopic cholecystectomy. Mr. Saint Rae however will be at high risk for general anesthesia with his multiple comorbid conditions including congestive heart failure and reduced ejection fraction. His risk for surgery seemed to be higher than a risk for developing cancer in the gallbladder therefore I would recommend diet restriction including avoiding greasy/fried foods as much as possible. No surgical intervention is recommended at this time. He should follow up as needed. Coding Level of Care Code New Pt Level 4 (74916) Diagnoses Gallbladder polyp K82.4
[2024-07-27 11:41] VITALS: BP 120/78; BMI 31.8
== END 2024-07-27 11:57 | disposition home or self-care (01) ==
PROVIDERS: PCP Internal Medicine; Visit Provider Surgery
DX: K82.4 Cholesterolosis of gallbladder (principal)
CPT/HCPCS: 99204

== ENCOUNTER → 2024-07-27 11:28 | Outpatient (BNVA) | payer MEDICARE, MEDICAID, SELFPAY | PROVIDERS: PCP Internal Medicine; Visit Provider Surgery | DX: K82.4 Cholesterolosis of gallbladder (principal) | CPT/HCPCS: 99202 ==

== ENCOUNTER 2024-08-23 08:45 | Outpatient (AMB) | payer MEDICARE, MEDICAID, SELFPAY ==
[2024-08-23 08:53] LABS: Prothrombin Time Whole Bld POC 31.7 sec (11.1-13.5); ~PT, ~INR - Anti Coag Clinic 2.6 (0.9-1.1)
--- NOTE | 2024-08-23 08:57 | MHC.OFFVISCO ---
Intake Intake Visit Reasons: Anticoagulation Allergies adenosine Allergy (Severe, Verified 08/23/24 08:46) cardiac, elevated BP, Stroke Gadolinium-Containing Contrast Medi Allergy (Severe, Verified 08/23/24 08:46) red eyes Iodinated Contrast Media [CONTRAST, IV] Allergy (Severe, Verified 08/23/24 08:46) Seizure carvedilol Allergy (Intermediate, Verified 08/23/24 08:46) disorientation erythromycin base Adverse Reaction (Unknown, Verified 08/23/24 08:46) Gut pain , Abdominal Pain, GI upset Medication List - Last Reconciled 08/23/24 by Evelyn Glasgow, RN carboxymethylcellulose sodium 0.5% (Refresh Tears) 1 drp ophthalmic (eye) BID carvedilol phosphate ER (Coreg CR) 40 mg PO DAILY coenzyme Q10 (CoQ-10) 100 mg PO DAILY furosemide 40 mg PO DAILY lorazepam 0.5 mg PO BID omeprazole 20 mg PO DAILY@0630 sacubitril-valsartan 24-26 mg (Entresto) 1 tab PO BID simvastatin 20 mg PO BEDTIME spironolactone 25 mg PO DAILY warfarin See Protocol 5mg tuesday/ 7.5mg x 5 days; Nursing Note INR: 2.6 in therapeutic range of 2-3 Medications and supplements reviewed No changes in health, diet, medications, or supplements, Denies any signs and symptoms of bleeding or bruising or clotting. 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
== END 2024-08-23 09:01 | disposition home or self-care (01) ==
LOC: HO.ACS 08:45
PROVIDERS: PCP Internal Medicine; Visit Provider Internal Medicine
DX: Z79.01 Long term (current) use of anticoagulants (principal)

== ENCOUNTER → 2024-08-23 08:45 | Outpatient (BNVA) | payer MEDICARE, MEDICAID, SELFPAY | PROVIDERS: PCP Internal Medicine; Visit Provider Internal Medicine | DX: I48.20 Chronic atrial fibrillation, unspecified (principal); Z79.01 Long term (current) use of anticoagulants; Z51.81 Encounter for therapeutic drug level monitoring | CPT/HCPCS: 85610; 99211 ==

== ENCOUNTER 2024-09-17 07:15 | Outpatient (REF) | payer MEDICARE, MEDICAID, SELFPAY ==
[2024-09-17 10:38] LABS: MANUAL DIFF FLAG NO
[2024-09-17 10:42] LABS: Basophils Percent Auto 0.5 % (0-2); Eosinophils Absolute Auto 0.1 X10*3/uL (0.0-0.4); Hematocrit 44.1 % (42.0-52.0); Hemoglobin 14.7 g/dl (14.0-18.0); Imm Gran Abs Auto 0.04 X10*3/uL (0.00-0.03); Imm Gran Pct Auto 0.5 % (0.0-0.4); Lymphocytes Absolute Auto 3.6 X10*3/uL (1.2-4.9); Lymphocytes Percent Auto 42.9 % (20-40); Mean Corpuscular HGB Conc 33.3 g/dl (31.0-36.0); Mean Corpuscular Hemoglobin 30.7 pg (27.0-33.0); Mean Corpuscular Volume 92.1 fL (80.0-98.0); Monocytes Absolute Auto 0.6 X10*3/uL (0.1-1.2); Monocytes Percent Auto 7.3 % (2-11); Neutrophils Percent Auto 47.8 % (45-73); Platelet Count 154 X10*3/uL (160-400); Red Blood Count 4.79 X10*6/uL (4.60-5.80); White Blood Count 8.3 X10*3/uL (4.8-10.8)
[2024-09-17 10:54] LABS: Estimated Average Glucose 123 mg/dL; Hemoglobin A1c % 5.9 % (<6.0); Total Hemoglobin (HGBA1C) 3702.8141 umol/L
[2024-09-17 11:16] LABS: PSA,Total (Free>4and<10) 0.21 ng/mL (0.00-4.00)
[2024-09-17 11:19] LABS: Alanine Aminotransferase 16 U/L (0-40); Albumin Level 3.8 g/dL (3.5-5.0); Alkaline Phosphatase 101 U/L (39-117); Anion Gap 10 (12-20); Aspartate Amino Transferase 22 U/L (5-37); Bilirubin Total 0.6 mg/dL (0.0-1.0); Blood Urea Nitrogen 28 mg/dL (9-16); Calcium 9.1 mg/dL (8.4-10.2); Carbon Dioxide 27 mmol/L (22-29); Chloride 104 mmol/L (96-108); Cholesterol 134 mg/dL (<200); Estimated Glomerular Filt Rate 56; Glucose Fasting 115 mg/dL (60-99); HDL Cholesterol 36 mg/dL (>40); LDL Cholesterol Calculated 81 mg/dL (<100); Potassium 4.2 mmol/L (3.3-5.1); Sodium 137 mmol/L (135-145); Total Protein 6.8 g/dL (6.5-8.0); Triglycerides 85 mg/dL (<150); Vitamin D 25-OH Total 66.5 ng/mL (>30)
--- OUTSIDE RECORDS SUMMARY | 2024-09-17 15:15 | XMS_ITS ---
Author Organization Yonathan Womack MD Address [address] [place], [place] [id number] Care Team Providers Care Behavior Specialist Name Role Phone ShantaJamien Primary Care Provider Results Component Value Reference Range Notes Complete Blood Count Auto Di ff (Not yet reviewed by provider) Interpretation: Performing Lab:[facility], [address] [place] [phone] Notes/Report: White Blood Count 8.3 4.8-10.8 X10*3/uL Red Blood Count 4.79 4.60-5.80 X10*6/uL Hemoglobin 14.7 14.0-18.0 g/dl Hematocrit 44.1 42.0-52.0 % Mean Corpuscular Volume 92.1 80.0-98.0 fL Mean Corpuscular Hemoglobin 30.7 27.0-33.0 pg Mean Corpuscular HGB Conc 33.3 31.0-36.0 g/dl Red Cell Distribution Width 13.0 11.0-16.0 % Platelet Count 154 160-400 X10*3/uL Mean Platelet Volume 11.0 9.4-12.4 fL Neutrophils Percent Auto 47.8 45-73 % Imm Gran Pct Auto 0.5 0.0-0.4 % Lymphocytes Percent Auto 42.9 20-40 % Monocytes Percent Auto 7.3 2-11 % Eosinophils Percent Auto 1.0 0-4 % Basophils Percent Auto 0.5 0-2 % NRBC Pct Auto 0.0 0.0-0.2 /100WBC Neutrophils Absolute Auto 4.0 2.0-8.3 x10*3/u L Imm Gran Abs Auto 0.04 0.00-0.03 X10*3/uL Lymphocytes Absolute Auto 3.6 1.2-4.9 X10*3/u L Monocytes Absolute Auto 0.6 0.1-1.2 X10*3/uL Eosinophils Absolute Auto 0.1 0.0-0.4 X10*3/u L Basophils Absolute Auto 0.0 0.0-0.2 X10*3/uL NRBC Abs Auto 0.000 0.0-0.012 X10*3/uL Comprehensive Lott. Panel Fa st (Not yet reviewed by provider) Interpretation: Performing Lab:[facility], [address] [place] [phone] Notes/Report: Sodium 137 135-145 mmol/L Potassium 4.2 3.3-5.1 mmol/L Chloride 104 96-108 mmol/L Carbon Dioxide 27 22-29 mmol/L Anion Gap 10 12-20 Blood Urea Nitrogen 28 9-16 mg/dL Creatinine 1.25 0.5-1.4 mg/dL Estimated Glomerular Filt Rate 56 Chronic Kidney Disease: Estimated GFR < 60 mL/min/1.73m2 Severe Kidney Disease: Estimated GFR < 15 mL/min/1.73m2 Glucose Fasting 115 60-99 mg/dL A fasting glucose from 100-125 mg/dl is considered impaired (pre-diabetes). Calcium 9.1 8.4-10.2 mg/dL Bilirubin Total 0.6 0.0-1.0 mg/dL Aspartate Amino Transferase 22 5-37 U/L Alanine Aminotransferase 16 0-40 U/L Total Protein 6.8 6.5-8.0 g/dL Albumin Level 3.8 3.5-5.0 g/dL Alkaline Phosphatase 101 39-117 U/L Lipid Panel (Not yet reviewe d by provider) Interpretation: Performing Lab:[facility], [address] [place] [phone] Notes/Report: Triglycerides 85 <150 mg/dL Desirable Triglyceride: less than 150 mg/dL Borderline High Triglyceride 150-199 mg/dL High Triglyceride: 200-499 mg/dL Very High Triglyceride: greater than or equal to 5OO mg/dL Cholesterol 134 <200 mg/dL Desirable Cholesterol: less than 200 mg/dL Borderline High Cholesterol: 200-239 mg/dL High Cholesterol: greater than 239 mg/dL LDL Cholesterol Calculated 81 <100 mg/dL Desirable LDL: less than 100 mg/dL Near Optimal/Above Optimal LDL: 110-129 mg/dL Borderline High LDL: 130-159 mg/dL High LDL: 160-189 mg/dL Very High LDL: greater than or equal to 190 mg/dL HDL Cholesterol 36 >40 mg/dL Desirable HDL: greater than 40 mg/dL Note: This HDL assay may give artificially low results in patients with liver disease. Vitamin D 25-OH Total (Not y et reviewed by provider) Interpretation: Performing Lab:[facility], [address] [place] [phone] Notes/Report: Vitamin D 25-OH Total 66.5 >30 ng/mL Health Based Reference Values* < [...] another method such as LC-MS/MS. Hemoglobin A1c (Not yet revi ewed by provider) Interpretation: Performing Lab:[facility], [address] [place] [phone] Notes/Report: Hemoglobin A1c % 5.9 <6.0 % Hemoglobin A1C Reference Range Adults: 4.8 - 6.0 % Non diabetic: < 6.0 % Goal: < 7.0 % Additional Action Suggested: > 8.0 % Note: Hemoglobin A1c results are invalid for patients with abnormal amounts of HbF. Blood transfusions may impact the HbA1c concentration in the patient sample. Estimated Average Glucose 123 eAG = Estimated average glucose which is %A1C expressed as average glucose, using the formula of the A5B-Vuexxot Average Glucose study (ADAG), Diabetes Care, Vol.31,#8, Mar. 2007 REASON FOR VISIT yearly fasting labs Encounters Encounter Location Date Provider Diagnosis Yonathan Womack MD [address] [place], [place] [id number] 09/17/2024 Yonathan Womack Blood tests for delroy ine general physical examination Z00.00 ; Prediabetes R73.09 ; Pure hypercholesterolemia E78.00 ; Prostate cancer C61 ; Vitamin D deficiency E55.9 and Acute on chronic systolic congestive heart failure I50.23 Assessments Encounter Date Diagnosis (ICD Code) Assessment Notes Treatment Notes Treatment Clinical Notes Section Notes 09/17/2024 Blood tests for delroy kirk general physical examination (ICD-10 - Z00.00) 09/17/2024 Prediabetes (ICD-10 - R73.09) 09/17/2024 Pure hypercholesterolemia (ICD-10 - E78.00) 09/17/2024 Prostate cancer (ICD -10 - C61) 09/17/2024 Vitamin D deficiency (ICD-10 - E55.9) 09/17/2024 Acute on chronic systolic congestive heart failure (ICD-10 - I50.23) Plan Of Treatment Pending Test Test Name Order Date Complete Blood Count Auto Diff Comprehensive Lott. Panel Fast 5 Lipid Panel 09/17/2024 PSA Free and Total 09/17/2024 Vitamin D 25-OH Total 09/17/2024 Microalbumin, Random 09/17/2024 Hemoglobin A1c 09/17/2024 UA ClnCatch+Micro w/rflx Cult 09/17/2024 Next Appt Details Provider Name:Yonathan mendoza, 09/21/2024 11:00:00 AM, [address], [address], [place], [place], [id number], Progress Notes * STEVEN NUNEZDOB: [birth year] (79 yo M)Acc No.[id number]:09/17/2024 Progress Note Patient:?STEVEN NUNEZ Provider:?Yonathan Womack MD :1945???Age:79 Y???Sex:Male Jr e:09/17/2024 Address:[address] [place], [place] [id number] Subjective: * Chief Complaints: * ???1. Yearly fasting labs. * Medical History:? Objective: * Vitals:? Assessment: * Assessment: 1.?Blood tests for routine g eneral physical examination - Z00.00 (Primary)???2.?Prediabetes - R73.09???3.?Pure hypercholesterolemia - E78.00???4.?Prostate cancer - C61???5.?Vitamin D deficiency - E55.9?? 6.?Acute on chronic systolic congestive heart failure - I50.23??? Plan: * Treatment: 2.?Prediabetes?LAB: Complete Blood Count Auto Diff (Collection Date & Time - 09/17/2024 07:15 AM) ?LAB: Comprehensive Lott. Panel Fast (Collection Date & Time - 09/17/2024 07:15 AM) ?LAB: Lipid Panel (Collection Date & Time - 09/17/2024 07:15 AM) ?LAB: PSA Free and Total ?LAB: Vitamin D 25-OH Total (Collection Date & Time - 09/17/2024 07:15 AM) ?LAB: Microalbumin, Random ?LAB: Hemoglobin A1c (Collection Date & Time - 09/17/2024 07:15 AM) ?LAB: UA ClnCatch+Micro w/rflx Cult 3.?Pure hypercholesterolemia ?LAB: Complete Blood Count Auto Diff (Collection Date & Time - 09/17/2024 07:15 AM) ?LAB: Comprehensive Lott. Panel Fast (Collection Date & Time - 09/17/2024 07:15 AM) ?LAB: Lipid Panel (Collection Date & Time - 09/17/2024 07:15 AM) ?LAB: PSA Free and Total ?LAB: Vitamin D 25-OH Total (Collection Date & Time - 09/17/2024 07:15 AM) ?LAB: Microalbumin, Random ?LAB: Hemoglobin A1c (Collection Date & Time - 09/17/2024 07:15 AM) ?LAB: UA ClnCatch+Micro w/rflx Cult 4.?Prostate cancer?LAB: Complete Blood Count Auto Diff (Collection Date & Time - 09/17/2024 07:15 AM) ?LAB: Comprehensive Lott. Panel Fast (Collection Date & Time - 09/17/2024 07:15 AM) ?LAB: Lipid Panel (Collection Date & Time - 09/17/2024 07:15 AM) ?LAB: PSA Free and Total ?LAB: Vitamin D 25-OH Total (Collection Date & Time - 09/17/2024 07:15 AM) ?LAB: Microalbumin, Random ?LAB: Hemoglobin A1c (Collection Date & Time - 09/17/2024 07:15 AM) ?LAB: UA ClnCatch+Micro w/rflx Cult 5.?Vitamin D deficiency?LAB: Complete Blood Count Auto Diff (Collection Date & Time - 09/17/2024 07:15 AM) ?LAB: Comprehensive Lott. Panel Fast (Collection Date & Time - 09/17/2024 07:15 AM) ?LAB: Lipid Panel (Collection Date & Time - 09/17/2024 07:15 AM) ?LAB: PSA Free and Total ?LAB: Vitamin D 25-OH Total (Collection Date & Time - 09/17/2024 07:15 AM) ?LAB: Microalbumin, Random ?LAB: Hemoglobin A1c (Collection Date & Time - 09/17/2024 07:15 AM) ?LAB: UA ClnCatch+Micro w/rflx Cult 6.?Acute on chronic systolic congestive heart failure?LAB: Complete Blood Count Auto Diff (Collection Date & Time - 09/17/2024 07:15 AM) ?LAB: Comprehensive Lott. Panel Fast (Collection Date & Time - 09/17/2024 07:15 AM) ?LAB: Lipid Panel (Collection Date & Time - 09/17/2024 07:15 AM) ?LAB: PSA Free and Total ?LAB: Vitamin D 25-OH Total (Collection Date & Time - 09/17/2024 07:15 AM) ?LAB: Microalbumin, Random ?LAB: Hemoglobin A1c (Collection Date & Time - 09/17/2024 07:15 AM) ?LAB: UA ClnCatch+Micro w/rflx Cult * Procedure Codes:?41700 VENIP UNCT, ROUTINE* * * The named appointment provid er may or may not be the originator of this progress note, and it is not deemed complete until electronically signed by the appointment provider. Sign off status: Pending * Provider:?Yonathan Womack MD Date:?0 09/17/2024 Generated for Douglas whitehead/Galina/Madyitting on:?09/17/2024 03:15 PM EST
--- OUTSIDE RECORDS SUMMARY | 2024-09-17 15:15 | XMS_ITS ---
Author Organization Yonathan Womack MD Address [address] [place] [phone] Care Team Providers Care Manager Gaming Name Role Phone Yonathan Womack Primary Care Provider [phone] Allergies Allergen (clinical drug ingredient) Drug/Non Drug Allergy documented on EMR Reaction Allergy Type Onset Date Status erythromycin Erythromyicin (uncoded) GI Upset Allergy Active erythromycin Ilisone (uncoded) GI Upset Allergy Active IVPDye (uncoded) Convulsion Allergy Ac tive gadolinium (uncoded) red eues Allergy Active Adedison (uncoded) Elevated BP Allergy Active REASON FOR VISIT discuss having pace maker and his block outs, Did not start the Metroprololl 25mg yet Medications Medication SIG (Take, Route, Frequency, Duration) Notes Start Date End Date Status Nitrostat 0.4 MG as directed Sublingu al every 5 mins times 3 for 30 days 11/30/2016 Not-Taking Triamcinolone Acetonide 0.5 % 1 application to affected area Externally Twice a day for 30 days 10/03/2014 Not-Taking Imodium A-D 2 MG 1 tablet as needed Orally Four times a day Not-Taking Tylenol Extra Strength 500 MG 1/2 tablet Orally every 6 hrs Not-Taking Eplerenone 25 MG TAKE 0.5 TABLET BY MOUTH EVERY DAY Orally Once a day Not-Taking Warfarin Sodium 2.5 MG TAKE 3 TABLETS BY MOUTH 6 DAYS A WEEK AND 2 TABLETS BY MOUTH 1 DAY A WEEK for 90 Active Omeprazole 20 MG TAKE 1 CAPSULE BY MOUTH EVERY DAY 30 MINUTES BEFORE BREAKFAST for 90 Active FreeStyle Lancets - USE TO CHECK BLOOD SUGAR ONCE A DAY for 90 Active Melatonin 3 MG 1 tablet at bedtime as needed Orally Once a day for 30 day(s) Not-Taking LORazepam 0.5 MG TAKE 1 TABLET BY CASSIUS TH EVERY DAY NEEDED Orally Once a day for 30 days 05/03/2024 Active Magnesium 500 MG 1 tablet with a meal Orally Once a day Not-Taking FreeStyle Lite Test - TEST BLOOD SUGAR O NCE EVERY DAY for 50 Active Simvastatin 40 MG TAKE 1/2 TABLET BY MOUTH EVERY EVENING Active Vitamin D3 400 UNIT 1 capsule Orally Onc e a day Not-Taking Triamcinolone Acetonide 0.1 % 1 application Externally Once a day for 30 days 07/23/2021 Active Furosemide 20 MG TAKE 2TABLET BY MOUT H EVERY DAY Active Coreg CR 40 MG 1 capsule with food Orally Once a day Active Calcium 500 MG 1 tablet with food Orally Once a day Not-Taking Spironolactone 25 MG 1 tablet Orally Active Co Q 10 100 MG 1 capsule with a indy l Orally Once a day for 30 day(s) Active Entresto 24-26 MG 1 tablet Orally Twic e a day Active Vital Signs Blood pressure systolic 92 mm Hg 07/26/20 24 Blood pressure diastolic 60 mm Hg 024 Height 69 in 07/26/2024 Weight 206 lbs 07/26/2024 BMI 30.42 kg/m2 07/26/2024 206 with boots Encounters Encounter Location Date Provider Diagnosis Yonathan Womack MD [address] [facility] [address] [place], [place] [phone] 07/26/2024 Yonathan Womack Acute on chronic systolic congestive heart failure I50.23 Assessments Encounter Date Diagnosis (ICD Code) Assessment Notes Treatment Notes Treatment Clinical Notes Section Notes 07/26/2024 Acute on chronic systolic congestive heart failure (ICD-10 - I50.23) will continue current regiment, has no symptoms of shortness of breath. we discussed the pacer which is not for a bradycardia. he actually doesn't pass out. it is for synchronization, Total time spent on the date of the encounter is 35 minutes including both face to face time spent and time spent reviewing documentation and counseling the patient. Plan Of Treatment Medication Medication Name Sig Start Date Stop Date Notes Furosemide 20 MG TAKE 2TABLET BY MOUTH EVERY DAY Coreg CR 40 MG 1 capsule with food Orally Once a day Spironolactone 25 MG 1 tablet Orally Entresto 24-26 MG 1 tablet Orally Twice a day Treatment Notes Assessment Notes Acute on chronic systolic co ngestive heart failure will continue current regiment, has no symptoms of shortness of breath. we discussed the pacer which is not for a bradycardia. he actually doesn't pass out. it is for synchronization, Total time spent on the date of the encounter is 35 minutes including both face to face time spent and time spent reviewing documentation and counseling the patient. Next Appt Details Provider Name:Yonathan mendoza, 09/21/2024 11:00:00 AM, [address] [place] [address], [facility], [place], [place], [phone], Progress Notes * STEVEN NUNEZDOB: [birth year] (79 yo M)Acc No.[id number]:07/26/2024 Progress Notes Patient:?STEVEN NUNEZ Provider:?Yonathan Womack MD :1945???Age:79 Y???Sex:Male Jr e:07/26/2024 Address:[address] [place] [address] Subjective: * Chief Complaints: * ???Discuss having pace maker and his block outsDid not start the Metroprololl 25mg yet * HPI: ???Symptom(s):? patient is a 79 yo male , nurse called and said he was passing out all the time. every few months he feels like he is going to pass out and heart is going fast. cardiology wants to give a pacer for low ejection fraction. * ROS:?General/Constitutional:?Denies?Chills.?Denies?Fatigue.?Denies?Fever.?Denies?Headache.?ENT:?Patient denies?decreased sense of smell , any loss of taste , sore throat.?Denies?Sore throat.?Respiratory:?Denies?Cough.?Denies?Shortness of breath at rest.?Denies?Shortness of breath with exertion.?Gastrointestinal:?Denies?Diarrhea.?Denies?Nausea.?Musculoskeletal:?Patient denies?muscle aches.?Peripheral Vascular:?Patient denies?red and blue toes.? * Medical History:? * Surgical History:? * Hospitalization/Major Diagno stic Procedure:? * Medications:?TakingCo Q 10 1 00 MG Capsule 1 capsule with a meal Orally Once a dayTriamcinolone Acetonide 0.1 % Cream 1 application Externally Once a dayEntresto 24-26 MG Tablet 1 tablet Orally Twice a daySpironolactone 25 MG Tablet 1 tablet Orally Coreg CR 40 MG Capsule Extended Release 24 Hour 1 capsule with food Orally Once a dayFurosemide 20 MG Tablet TAKE 2TABLET BY MOUTH EVERY DAY Simvastatin 40 MG Tablet TAKE 1/2 TABLET BY MOUTH EVERY EVENING FreeStyle Lite Test - Strip TEST BLOOD SUGAR ONCE EVERY DAY FreeStyle Lancets - Miscellaneous USE TO CHECK BLOOD SUGAR ONCE A DAY Omeprazole 20 MG Capsule Delayed Release TAKE 1 CAPSULE BY MOUTH EVERY DAY 30 MINUTES BEFORE BREAKFAST Warfarin Sodium 2.5 MG Tablet TAKE 3 TABLETS BY MOUTH 6 DAYS A WEEK AND 2 TABLETS BY MOUTH 1 DAY A WEEK LORazepam 0.5 MG Tablet TAKE 1 TABLET BY MOUTH EVERY DAY NEEDED Orally Once a dayTaking Co Q 10 100 MG Capsule 1 capsule with a meal Orally Once a dayTaking Triamcinolone Acetonide 0.1 % Cream 1 application Externally Once a dayTaking Entresto 24-26 MG Tablet 1 tablet Orally Twice a dayTaking Spironolactone 25 MG Tablet 1 tablet Orally Taking Coreg CR 40 MG Capsule Extended Release 24 Hour 1 capsule with food Orally Once a dayTaking Furosemide 20 MG Tablet TAKE 2TABLET BY MOUTH EVERY DAY Taking Simvastatin 40 MG Tablet TAKE 1/2 TABLET BY MOUTH EVERY EVENING Taking FreeStyle Lite Test - Strip TEST BLOOD SUGAR ONCE EVERY DAY Taking FreeStyle Lancets - Miscellaneous USE TO CHECK BLOOD SUGAR ONCE A DAY Taking Omeprazole 20 MG Capsule Delayed Release TAKE 1 CAPSULE BY MOUTH EVERY DAY 30 MINUTES BEFORE BREAKFAST Taking Warfarin Sodium 2.5 MG Tablet TAKE 3 TABLETS BY MOUTH 6 DAYS A WEEK AND 2 TABLETS BY MOUTH 1 DAY A WEEK Taking LORazepam 0.5 MG Tablet TAKE 1 TABLET BY MOUTH EVERY DAY NEEDED Orally Once a dayNot-Taking/PRNCalcium 500 MG Tablet 1 tablet with food Orally Once a dayMagnesium 500 MG Tablet 1 tablet with a meal Orally Once a dayVitamin D3 400 UNIT Tablet 1 capsule Orally Once a dayMelatonin 3 MG Tablet 1 tablet at bedtime as needed Orally Once a dayEplerenone 25 MG Tablet TAKE 0.5 TABLET BY MOUTH EVERY DAY Orally Once a dayTylenol Extra Strength 500 MG Tablet 1/2 tablet Orally every 6 hrsImodium A-D 2 MG Tablet 1 tablet as needed Orally Four times a dayTriamcinolone Acetonide 0.5 % Cream 1 application to affected area Externally Twice a dayNitrostat 0.4 MG Tablet Sublingual as directed Sublingual every 5 mins times 3Not-Taking/PRN Calcium 500 MG Tablet 1 tablet with food Orally Once a dayNot-Taking/PRN Magnesium 500 MG Tablet 1 tablet with a meal Orally Once a dayNot-Taking/PRN Vitamin D3 400 UNIT Tablet 1 capsule Orally Once a dayNot-Taking/PRN Melatonin 3 MG Tablet 1 tablet at bedtime as needed Orally Once a dayNot-Taking/PRN Eplerenone 25 MG Tablet TAKE 0.5 TABLET BY MOUTH EVERY DAY Orally Once a dayNot-Taking/PRN Tylenol Extra Strength 500 MG Tablet 1/2 tablet Orally every 6 hrsNot-Taking/PRN Imodium A-D 2 MG Tablet 1 tablet as needed Orally Four times a dayNot-Taking/PRN Triamcinolone Acetonide 0.5 % Cream 1 application to affected area Externally Twice a dayNot-Taking/PRN Nitrostat 0.4 MG Tablet Sublingual as directed Sublingual every 5 mins times 3 * Allergies:?IVPDye: Convulsio nIlisone: GI UpsetErythromyicin: GI UpsetAdedison: Elevated BPgadolinium: red euesyes[Allergies Verified] Objective: * Vitals:?Ht: 69, Wt:206, BMI: 30.42, BP:92/60 206 with boots. * Examination: ???General Examination: ?GENERAL APPEARANCE:?alert, well hydrated, in no distress , male.?SKIN:?good turgor.?HEART:?regular rate and rhythm , no murmurs, rubs, gallops.?LUNGS:?no wheezes, rales, rhonchi , good air movement , clear to auscultation bilaterally.? Assessment: * Assessment: 1.?Acute on chronic systolic congestive heart failure - I50.23 (Primary)? Plan: * Treatment: * Procedure Codes:?[id number] Compl ex e/m visit add on * * Sign off status: Completed true * Provider:?Yonathan Womack MD Date:?09/26/2023 Generated for Douglas whitehead/Galina/eTransmitting on:?09/17/2024 03:15 PM EST History and Physical Notes * HPI (History of Present Illness) Category Sub-Category Detail Notes Category Not es Symptom(s) patient is a 79 yo male , nurse called and said he was passing out all the time. every few months he feels like he is going to pass out and heart is going fast. cardiology wants to give a pacer for low ejection fraction. Examination Category Sub-Category Detail Notes Category Not es General Examination GENERAL APPEARANCE: alert, w ell hydrated, in no distress , male HEART: regular rate and rhy thm , no murmurs, rubs, gallops LUNGS: no wheezes, rales, r honchi , good air movement , clear to auscultation bilaterally SKIN: good turgor
--- OUTSIDE RECORDS SUMMARY | 2024-09-17 15:17 | XMS_ITS | Clinical Summary ---
Author Organization [address] [place] [address] [place] [phone] Phone Care Team Providers Care Clinical Sciences Professor Name Role Phone Yonathan Womack MD Primary Care Provider Unav ailable Allergies Active Allergy Reactions Criticality Noted Date Comments Adenosine High 05/26/2021 Erythromycin Stearate 05/26/2021 Iodinated Contrast Media 05/26/2021 Medications Medication Sig Dispensed Refills Start Date End Date Status CALCIUM-VITAMIN D3-MAGNESIUM ORAL Take 1 tablet by mouth 1 (one) time each day. Active coenzyme Q-10 100 mg capsule Take 1 capsule (100 mg total) by mouth 1 (one) time each day. Active sacubitriL-valsartan (Entresto) 24-26 mg per tablet Take 1 tablet by mouth 2 (two) times a day. 01/26/2024 Active furosemide (LASIX) 20 mg tablet Take 2 tablets (40 mg total) by mouth 1 (one) time each day. 04/04/2024 Active LORazepam (ATIVAN) 0.5 mg tablet Take 0.5 Tablets by mouth 2 times daily. Active omeprazole (PriLOSEC) [address] capsule Take 20 mg by mouth daily. Active simvastatin (ZOCOR) 20 mg tablet Take 0.5 tablets (10 mg total) by mouth at bedtime. 01/26/2024 Active spironolactone (ALDACTONE) 25 mg tablet Take 0.5 Tablets by mouth daily. 11/23/2023 Active warfarin (COUMADIN) 2.5 mg tablet Take 1 Tablet by mouth See Admin Instructions. May cause heavy bleeding. Take at same time every day. Do not change dietary habits. Managed by [facility]. Active metoprolol succinate (TOPROL-XL) 25 mg 24 hr tabletIndications:Paro xysmal atrial fibrillation (CMS/HCC) Take 1 tablet (25 mg total) by mouth 1 (one) time each day. Do not crush or chew. 30 each 11 07/17/2024 07/17/2025 Active Active Problems Problem Noted Date Diagnosed Date Knee pain 01/13/2024 Overview (06/07/2024): Last Assessment & Plan: Patient has significant left knee pain he cannot bear weight on it whatsoever. There is minimal edema some varicosities in lower extremities 2+ lower 2+ pedal pulses are identified. There is no significant swelling. Patient needs to go to the emergency room he needs an evaluation for the etiology of knee pain since he can barely walk he said he would go to the [facility] [place] ER from our office. He has a ride and will not be driving PVD (peripheral vascular disease) 08/09/2023 Overview (06/07/2024): Last Assessment & Plan: History of peripheral vascular disease with known carotid stenosis. Dizzinesses 03/15/2023 HFrEF (heart failure with reduced ejection fract ion) 01/06/2023 Overview (06/07/2024): Last Assessment & Plan: Appears the patient is a nonischemic cardiomyopathy. Based on results of cardiac MRI and coronary CTA. Patient is left with residual reduced EF we will refer him to the EP service for consideration for defibrillator. Patient's blood pressure is not can allow for any further adjustments upward in dosing or strength of goal-directed or guideline directed therapy. Will continue present medical therapy at this time he appears to be fairly well compensated from a cardiovascular standpoint Mixed hyperlipidemia 01/06/2023 Overview (06/07/2024): Last Assessment & Plan: Patient's last LDL cholesterol is 78. This is above goal. He was holding simvastatin due to GI disturbances which have now resolved. He is agreeable to restarting the simvastatin but only at 10 mg once a day. Sent to his pharmacy. Chest pain 07/06/2022 Overview (06/07/2024): Last Assessment & Plan: Patient's had 2 visits to the emergency room at [facility] [place] for chest pain both times he was released. I will have the records but would assume that he did not have evidence of a acute coronary syndrome or NSTEMI based on the results. The pain actually seems to be more colicky and possibly secondary to gallstones. But I offered him the opportunity of undergoing a dobutamine stress test to assess for underlying ischemia. I recommended that he undergo that he refused I told him that if he changes his mind or has any further pain he really should allow us to do a pharmacologic stress test using dobutamine since he has side effects from adenosine Atrial fibrillation 05/26/2021 Overview (06/07/2024): Last Assessment & Plan: History of atrial fibrillation with stroke. High [id number] score remains chronically anticoagulated Assessment & Plan (07/30/2024 8:19 AM EST): Orders: ECG 12 lead Coronary arteriosclerosis in elim ira artery 05/26 Overview (06/07/2024): Last Assessment & Plan: Patient is history of possible inferior infarct in the past. He continues to deny any exertional anginal symptoms. We discussed the possibility of completing a nuclear stress test to evaluate for any evidence of ischemia in light of his cardiac history and recent decline in cardiac function. Patient adamantly declines undergoing stress testing. He would require a pharmacological study and he absolutely does not want undergo this. We discussed that if he were to have any cardiac symptoms we would recommend patient undergoing evaluation with a coronary angiogram. He also declines further evaluation with a coronary angiogram. He is agreeable to restarting his simvastatin and continues on beta-michelle. I have reviewed with the patient the importance of a heart healthy lifestyle which includes eating a low-fat low-salt diet, getting regular exercise, maintaining a healthy weight, not smoking, and following up with routine medical care. Heart valve disorder 05/26/2021 Overview (06/07/2024): Last Assessment & Plan: History of mildly regurgitation and mild mitral regurgitation. He denies any clinical symptoms of heart failure. Encounters Date Type Department Care Team Description 07/24/2024 3:20 PM EST Consult [facility] [address] [place] [address] Adeel Powers MD Atrial fibrillation, unspecified type (CMS/HCC) (Primary Dx); Dilated cardiomyopathy (CMS/HCC) 07/13/2024 Telephone [facility] [address] [place] [address] Eddie Granados MD 07/10/2024 Telephone [facility] [address] [place] [address] Eddie Granados MD Med Refill (Refill issue ) 07/10/2024 Telephone Gastroenterology - [address] [place] [phone] Shelli Orlando MD from Last 3 Months Medical History Medical History Date Comments CVA (cerebral vascular accident) (CMS/HCC) DX:CVA (cerebral vascular accident) ([facility]) Chronic ischemic heart disease D X:Chronic ischemic heart disease GERD (gastroesophageal reflux disease) DX:GERD (gastroesophageal reflux disease) Anxiety DX:Anxiety Dyspnea DX:Dyspnea Dizzinesses DX:Dizzinesses Social History Tobacco Use Types Packs/Day Years Used Date Smoking Tobacco: Former Cigarettes Q uit: 08/22/1998 Smokeless Tobacco: Never Alcohol Use Standard Drinks/Week Comments Not Currently 0 (1 standard drink = 0.6 oz pur e alcohol) Sex and Gender Information Value Date Recorded Sex Assigned at Not on file Gender Identity Not on file Sexual Orientation Not on file Job Start Date Occupation Industry Not on file Not on file Not on file Obstetrics History Last Filed Vital Signs Vital Sign Reading Time Taken Comments Blood Pressure 138/68 07/24/2024 3:19 PM EST Pulse 71 07/24/2024 3:19 PM EST Temperature - - Respiratory Rate - - Oxygen Saturation 98% 07/24/2024 3:19 PM EST Inhaled Oxygen Concentration - - Weight 92.5 kg (204 lb) 07/24/2024 3:19 PM EST Height 182.9 cm (6') 07/24/2024 3:19 PM EST Body Mass Index 27.67 07/24/2024 3:19 PM EST Plan of Treatment Health Maintenance Due Date Last Done Comments COVID-19 Vaccine (#1) 1950 Pneumococcal Vaccine: 65+ Ye ars (1 of 2 - PCV) 01/22/1951 DTaP,Tdap,and Td Vaccines (1 - Tdap) 1965 Zoster Vaccines (1 of 2) 1965 RSV Immunization Patients 60 + Years Old (1 - 1-dose 75+ series) 2021 Cholesterol Screening (Lipid Panel) 07/25/2022 Depression Screening 07/25/2022 Falls Risk Assessment 07/25/2022 Hepatitis C Screening 07/25/2022 Medicare Annual Wellness Visit 07/25/2022 Social Influencers of Health Screening 07/25/2022 Hypertension/CHF/CAD Annual BMP Blood Test 08/01/2022 Influenza Vaccine (#1) 2024 HIB Vaccines Aged Out No longer eligi ble based on patient's age to complete this topic HPV Vaccines Aged Out No longer eligi ble based on patient's age to complete this topic Hepatitis A Vaccines Aged Out No long er eligible based on patient's age to complete this topic Hepatitis B Vaccines Aged Out No long er eligible based on patient's age to complete this topic IPV Vaccines Aged Out No longer eligi ble based on patient's age to complete this topic MMR Vaccines Aged Out No longer eligi ble based on patient's age to complete this topic Meningococcal ACWY Vaccine Aged Out N o longer eligible based on patient's age to complete this topic RSV Immunization Patients Un joy 20 months Aged Out No longer eligible b ased on patient's age to complete this topic Varicella Vaccines Aged Out No longer eligible based on patient's age to complete this topic Procedures Procedure Name Priority Date/Time Associated Diagnosis Comments ECG 12-LEAD Routine 07/24/2024 3:30 PM EST Atrial fibrillation, unspecified type (CMS/HCC) Dilated cardiomyopathy (CMS/HCC) EXTERNAL ECHO Routine 07/06/2024 11:07 AM EST from Last 3 Months Results * ECG 12 lead (07/24/2024 3:30 PM EST) Ventricular Rate ECG 71 BPM GEMUSE Atrial Rate 71 BPM GEMUSE P-R Interval 250 ms GEMUSE QRS Duration 114 ms GEMUSE Q-T Interval 414 ms GEMUSE QTc 449 ms GEMUSE P Wave [place] 46 degrees GEMUSE R [place] -45 degrees GEMUSE T [place] 9 degrees GEMUSE ECG Interpretation Sinus rhythm with 1st degree A-V block with premature ventricular complex Left anterior fascicular block Minimal voltage criteria for LVH, may be normal variant When compared with ECG of 20-APR-2018 11:51, Fusion complexes are now Present Premature ventricular complexes are now Present T wave inversion now evident in Inferior leads Confirmed by NALDO POWERS ([id number]) on 07/29/2024 5:23:37 PM GEMUSE 07/24/2024 3:30 PM EST 07/29/2024 5:23 PM EST Adeel Powers MD ECG ORDERABLES GEMUSE * External Echo (07/06/2024 11:07 AM EST) Anatomical Region Laterality Modality Ultrasound Eddie Granados MD CV ECHO PROCEDURES from Last 3 Months Care Teams Clinical Sciences Professor Relationship Specialty Start Date End Date Yonathan Womack MD [address] [place] [address] PCP - General 12/26/12
--- OUTSIDE RECORDS SUMMARY | 2024-09-17 15:17 | XMS_ITS ---
Author Organization Yonathan Womack MD Address [address] [place] [phone] Care Team Providers Care Pluck Trimmer Name Role Phone Shanta Yonathan Primary Care Provider REASON FOR VISIT RF Medications Medication SIG (Take, Route, Fr equency, Duration) Notes Start Date End Date Status LORazepam 0.5 MG TAKE 1 TABLET BY CASSIUS TH EVERY DAY NEEDED Orally Once a day for 30 days 09/04/2024 Active Encounters Encounter Location Date Provider Diagnosis Yonathan Womack MD [address] [place], [place] [phone] 09/04/2024 Yonathan Womack Plan Of Treatment Medication Medication Name Sig Start Date Stop Date Notes LORazepam 0.5 MG TAKE 1 TABLET BY CASSIUS TH EVERY DAY NEEDED Orally Once a day for 30 days 09/04/2024 Next Appt Details Provider Name:Yonathan mendoza, 09/21/2024 11:00:00 AM, [address] [facility], [address] [place] [address], [phone], Progress Notes * VERNELL TIWARI: [birth year] (79 yo M)Acc No.[id number]:09/04/2024 Patient:?STEVEN TIWARI :1945???Age:79 Y???Sex:Male Address:[address] [place] [address], [place] [address] * Refills? Refill LORazepam Tablet, 0.5 MG, Orally, 30 Tablet, TAKE 1 TABLET BY MOUTH EVERY DAY NEEDED, Once a day, 30 days, Refills=3 * true * Date:? Generated for Douglas whitehead/Galina/Anasmitting on:?09/17/2024 03:17 PM EST
== END 2024-09-17 07:16 | disposition home or self-care (01) ==
LOC: HO.LNP 07:15
PROVIDERS: Visit Provider Internal Medicine
DX: Z00.00 Encounter for general adult medical examination without abnormal findings (principal); R73.09 Other abnormal glucose; E78.00 Pure hypercholesterolemia, unspecified; C61 Malignant neoplasm of prostate; E55.9 Vitamin D deficiency, unspecified; I50.23 Acute on chronic systolic (congestive) heart failure; Z12.5 Encounter for screening for malignant neoplasm of prostate
CPT/HCPCS: 80053; 80061; 82306; 83036; 84153; 85025

== ENCOUNTER 2024-09-20 09:13 | Outpatient (AMB) | payer MEDICARE, MEDICAID, SELFPAY ==
[2024-09-20 09:32] LABS: Prothrombin Time Whole Bld POC 26.6 sec (11.1-13.5); ~PT, ~INR - Anti Coag Clinic 2.2 (0.9-1.1)
--- NOTE | 2024-09-20 09:32 | MHC.OFFVISCO ---
Intake Intake Visit Reasons: Anticoagulation Allergies adenosine Allergy (Severe, Verified 09/20/24 09:27) cardiac, elevated BP, Stroke Gadolinium-Containing Contrast Medi Allergy (Severe, Verified 09/20/24 09:27) red eyes Iodinated Contrast Media [CONTRAST, IV] Allergy (Severe, Verified 09/20/24 09:27) Seizure carvedilol Allergy (Intermediate, Verified 09/20/24 09:27) disorientation erythromycin base Adverse Reaction (Unknown, Verified 09/20/24 09:27) Gut pain , Abdominal Pain, GI upset Medication List - Last Reconciled 09/20/24 by Evelyn Glasgow, RN carboxymethylcellulose sodium 0.5% (Refresh Tears) 1 drp ophthalmic (eye) BID coenzyme Q10 (CoQ-10) 100 mg PO DAILY furosemide 40 mg PO DAILY lorazepam 0.5 mg PO BID metoprolol succinate ER mg PO DAILY omeprazole 20 mg PO DAILY@0630 sacubitril-valsartan 24-26 mg (Entresto) 1 tab PO BID simvastatin 20 mg PO BEDTIME spironolactone 25 mg PO DAILY warfarin See Protocol 5mg tuesday/ 7.5mg x 5 days; Nursing Note INR: 2.2 in therapeutic range of 2-3 Medications and supplements reviewed: off coreg and on metoprolol now. No changes in health, diet, or supplements, Denies any signs and symptoms of bleeding or bruising or clotting. Bleeding, bruising, clotting discussed Nutritional guidance given Dose: 7.5mg X 6 days and 5mg X 1 day (Tue) F/U INR: 4 weeks Patient verbalizes understanding of instructions with read back given Anti-Coag Initial Assessment Social Hx Patient Tobacco Use Status: Never used Tobacco alcohol intake: never Alcohol intake frequency: does not drink Coding Level of Care Code Est Patient Level 1 Diagnoses Current use of anticoagulant therapy Z79.01 Assessment & Plan Assessment & Plan (1) Current use of anticoagulant therapy: Comment: Warfarin Code(s): Z79.01 - nursing home (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
--- OUTSIDE RECORDS SUMMARY | 2024-09-20 12:15 | XMS_ITS ---
Author Organization Yonathan Womack MD Address [address] [place] [phone] Care Team Providers Care Electrical Maintenance Man Name Role Phone Yonathan Womack Primary Care Provider Allergies Allergen (clinical drug ingredient) Drug/Non Drug Allergy documented on EMR Reaction Allergy Type Onset Date Status Erythromyicin (uncoded) GI Upset Allergy Active Ilisone (uncoded) GI Upset Allergy Ac tive IVPDye (uncoded) Convulsion Allergy Ac tive gadolinium [...] Date Provider Diagnosis Yonathan Womack MD [address] [facility] [address] [place], [place] [phone] 07/26/2024 Yonathan Womack Acute on chronic systolic [...] Details Provider Name:Yonathan mendoza, 09/21/2024 11:00:00 AM, [address] [place] [address], [facility] [[email or web address]] [address], [place], [place], [phone], Progress Notes * STEVEN NUNEZDOB: [birth year] (79 yo M)Acc No.[id number]:07/26/2024 Progress Notes Patient:?STEVEN NUNEZ Provider:?Yonathan Womack MD :1945???Age:79 Y???Sex:Male Jr e:07/26/2024 Address:[address] [place] [address] Subjective: * Chief Complaints: * ???Discuss having [...] Womack MD Date:?09/26/2023 Generated for Douglas whitehead/Galina/eTransmitting on:?09/20/2024 12:15 PM EST History and Physical Notes * [...]
--- OUTSIDE RECORDS SUMMARY | 2024-09-20 12:16 | XMS_ITS ---
Author Organization Yonathan Womack MD Address [address] [place] [phone] Care Team Providers Care Mh Teacher Name Role Phone Shanta Yonathan Primary Care Provider [phone] REASON FOR VISIT RF Medications Medication SIG (Take, Route, Fr equency, Duration) Notes Start Date End Date Status LORazepam 0.5 MG TAKE 1 TABLET BY CASSIUS TH EVERY DAY NEEDED Orally Once a day for 30 days 09/04/2024 Active Encounters Encounter Location Date Provider Diagnosis Yonathan Womack MD [address] [facility] [address] [place], [place] [phone] 09/04/2024 Yonathan Womack Plan Of Treatment Medication Medication Name Sig Start Date Stop Date Notes LORazepam 0.5 MG TAKE 1 TABLET BY CASSIUS TH EVERY DAY NEEDED Orally Once a day for 30 days 09/04/2024 Next Appt Details Provider Name:Yonathan mendoza, 09/21/2024 11:00:00 AM, [address] [facility], [address] [place] [address], [phone], Progress Notes * VERNELL TIWARI: [birth year] (79 yo M)Acc No.[id number]:09/04/2024 Patient:?STEVEN TIWARI :1945???Age:79 Y???Sex:Male Address:[address] [place] [address], [place] [address] * Refills? Refill LORazepam Tablet, 0.5 MG, Orally, 30 Tablet, TAKE 1 TABLET BY MOUTH EVERY DAY NEEDED, Once a day, 30 days, Refills=3 * true * Date:? Generated for Douglas whitehead/Galina/Anasmitting on:?09/20/2024 12:16 PM EST
--- OUTSIDE RECORDS SUMMARY | 2024-09-20 12:16 | XMS_ITS | Clinical Summary ---
Author Organization [address] [place] [address] [place] [phone] Phone Care Team Providers Care Orthopedically Impaired Teacher Name Role Phone Yonathan Womack MD Primary [...] Do not change dietary habits. Managed by [facility]. Active metoprolol succinate (TOPROL-XL) 25 mg 24 [...] he said he would go to the [facility] ER from our office. He has a [...] 2 visits to the emergency room at [facility] for chest pain both times he was [...] History of atrial fibrillation with stroke. High [id number] score remains chronically anticoagulated Assessment & Plan (07/30/2024 8:19 AM EST): Orders: ECG 12 lead Coronary arteriosclerosis in [place] artery 05/26 Overview (06/07/2024): Last Assessment & [...] Team Description 07/24/2024 3:20 PM EST Consult [facility] Cardiology [facility] [address] [place] [address] Adeel Powers MD Atrial fibrillation, unspecified type (CMS/HCC) (Primary Dx); Dilated cardiomyopathy (CMS/HCC) 07/13/2024 Telephone [facility] Cardiology [facility] [address] [place] [address] Eddie Granados MD 07/10/2024 Telephone [facility] [address] [place] [address] Eddie Granados MD Med Refill (Refill issue ) 07/10/2024 Telephone Gastroenterology - [address] [place] [phone] Shelli Orlando MD from Last 3 Months Medical History Medical History Date Comments CVA (cerebral vascular accident) (CMS/HCC) DX:CVA (cerebral vascular accident) ([facility]) Chronic ischemic heart disease D X:Chronic ischemic [...] GEMUSE QTc 449 ms GEMUSE P Wave [place] 46 degrees GEMUSE R [place] -45 degrees GEMUSE T [place] 9 degrees GEMUSE ECG Interpretation Sinus rhythm [...] PROCEDURES from Last 3 Months Care Teams Orthopedically Impaired Teacher Relationship Specialty Start Date End Date Yonathan Womack MD [address] [place] [address] PCP - General 12/26/12
--- OUTSIDE RECORDS SUMMARY | 2024-09-20 12:16 | XMS_ITS ---
Author Organization Yonathan Womack MD Address [address] [place] [phone] Care Team Providers Care Printing And Stamping Supervisor Name Role Phone BrittonJamie nguyenn Primary Care Provider Results Component Value Reference Range Notes Complete Blood Count Auto Di ff Reviewed date:09/17/2024 05:23:58 PM Interpretation: Performing Lab:[facility], [address] [place] [phone] Notes/Report: White Blood Count 8.3 4.8-10.8 X10*3/uL [...] NRBC Abs Auto 0.000 0.0-0.012 X10*3/uL Comprehensive [place]. Panel Fa st Reviewed date:09/17/2024 05:21:17 PM Interpretation: Performing Lab:[facility], [address] [place] [phone] Notes/Report: Sodium 137 135-145 mmol/L Potassium 4.2 [...] Alkaline Phosphatase 101 39-117 U/L Lipid Panel Reviewed date:09/17/2024 05:02:42 PM Interpretation: Performing Lab:[address] [phone] Notes/Report: Triglycerides 85 <150 mg/dL Desirable Triglyceride: [...] with liver disease. Vitamin D 25-OH Total Reviewed date:09/17/2024 05:02:53 PM Interpretation: Performing Lab:[address] [phone] Notes/Report: Vitamin D 25-OH Total 66.5 >30 [...] method such as LC-MS/MS. Hemoglobin A1c Reviewed date:09/17/2024 05:01:59 PM Interpretation: Performing Lab:[facility], [address] [place] [phone] Notes/Report: Hemoglobin A1c % 5.9 <6.0 % [...] average glucose, using the formula of the Y1P-Cnstckh Average Glucose study (ADAG), Diabetes Care, Vol.31,#8, Mar. 2007 REASON FOR VISIT yearly fasting labs Encounters Encounter Location Date Provider Diagnosis Yonathan Womack MD [address] [place] [address] Drive [address] [place], [place] [phone] 09/17/2024 Yonathan Womack Blood tests for delroy [...] Treatment Pending Test Test Name Order Date PSA Free and Total 09/17/2024 Microalbumin, Random 09/17/2024 UA ClnCatch+Micro w/rflx Cult 09/17/2024 Next Appt Details Provider Name:Yonathan mendoza, 09/21/2024 11:00:00 AM, [address] [place] [address] Drive, [address], [place], [place], [phone], Progress Notes * ST KIM[facility]EV[facility]: [birth year] (79 yo M)Acc No.[id number]:09/17/2024 Progress Note Patient:?STEVEN NUNEZ Provider:?Yonathan Womack MD :1945???Age:79 Y???Sex:Male Jr e:09/17/2024 Address:[address] [place], [place] [phone] Subjective: * Chief Complaints: * ???1. Yearly fasting labs. * Medical History:? Objective: * Vitals:? Assessment: * Assessment: 1.?Blood tests for routine g eneral physical examination - Z00.00 (Primary)???2.?Prediabetes - R73.09???3.?Pure hypercholesterolemia - E78.00???4.?Prostate cancer - C61???5.?Vitamin D deficiency - E55.9?? 6.?Acute on chronic systolic congestive heart failure - I50.23??? Plan: * Treatment: 2.?Prediabetes?LAB: PSA Free and Total ?LAB: Microalbumin, Random ?LAB: UA ClnCatch+Micro w/rflx Cult ?LAB: Complete Blood Count Auto Diff (Collection Date & Time - 09/17/2024 07:15 AM) ?LAB: Comprehensive [place]. Panel Fast (Collection Date & Time - 09/17/2024 07:15 AM) ?LAB: Lipid Panel (Collection Date & Time - 09/17/2024 07:15 AM) ?LAB: Vitamin D 25-OH Total (Collection Date & Time - 09/17/2024 07:15 AM) ?LAB: Hemoglobin A1c (Collection Date & Time - 09/17/2024 07:15 AM) 3.?Pure hypercholesterolemia ?LAB: PSA Free and Total ?LAB: Microalbumin, Random ?LAB: UA ClnCatch+Micro w/rflx Cult ?LAB: Complete Blood Count Auto Diff (Collection Date & Time - 09/17/2024 07:15 AM) ?LAB: Comprehensive [place]. Panel Fast (Collection Date & Time - 09/17/2024 07:15 AM) ?LAB: Lipid Panel (Collection Date & Time - 09/17/2024 07:15 AM) ?LAB: Vitamin D 25-OH Total (Collection Date & Time - 09/17/2024 07:15 AM) ?LAB: Hemoglobin A1c (Collection Date & Time - 09/17/2024 07:15 AM) 4.?Prostate cancer?LAB: PSA Free and Total ?LAB: Microalbumin, Random ?LAB: UA ClnCatch+Micro w/rflx Cult ?LAB: Complete Blood Count Auto Diff (Collection Date & Time - 09/17/2024 07:15 AM) ?LAB: Comprehensive [place]. Panel Fast (Collection Date & Time - 09/17/2024 07:15 AM) ?LAB: Lipid Panel (Collection Date & Time - 09/17/2024 07:15 AM) ?LAB: Vitamin D 25-OH Total (Collection Date & Time - 09/17/2024 07:15 AM) ?LAB: Hemoglobin A1c (Collection Date & Time - 09/17/2024 07:15 AM) 5.?Vitamin D deficiency?LAB: PSA Free and Total ?LAB: Microalbumin, Random ?LAB: UA ClnCatch+Micro w/rflx Cult ?LAB: Complete Blood Count Auto Diff (Collection Date & Time - 09/17/2024 07:15 AM) ?LAB: Comprehensive [place]. Panel Fast (Collection Date & Time - 09/17/2024 07:15 AM) ?LAB: Lipid Panel (Collection Date & Time - 09/17/2024 07:15 AM) ?LAB: Vitamin D 25-OH Total (Collection Date & Time - 09/17/2024 07:15 AM) ?LAB: Hemoglobin A1c (Collection Date & Time - 09/17/2024 07:15 AM) 6.?Acute on chronic systolic congestive heart failure?LAB: PSA Free and Total ?LAB: Microalbumin, Random ?LAB: UA ClnCatch+Micro w/rflx Cult ?LAB: Complete Blood Count Auto Diff (Collection Date & Time - 09/17/2024 07:15 AM) ?LAB: Comprehensive [place]. Panel Fast (Collection Date & Time - 09/17/2024 07:15 AM) ?LAB: Lipid Panel (Collection Date & Time - 09/17/2024 07:15 AM) ?LAB: Vitamin D 25-OH Total (Collection Date & Time - 09/17/2024 07:15 AM) ?LAB: Hemoglobin A1c (Collection Date & Time - 09/17/2024 07:15 AM) * Procedure Codes:?47380 VENIP UNCT, ROUTINE* * * The named appointment provid er may or may not be the originator of this progress note, and it is not deemed complete until electronically signed by the appointment provider. Sign off status: Pending * Provider:?Yonathan Womack MD Date:?0 09/17/2024 Generated for Douglas whitehead/Galina/Madyitting on:?09/20/2024 12:15 PM EST
== END 2024-09-20 09:37 | disposition home or self-care (01) ==
LOC: HO.ACS 09:13
PROVIDERS: PCP Internal Medicine; Visit Provider Internal Medicine
DX: Z79.01 Long term (current) use of anticoagulants (principal)

== ENCOUNTER 2024-10-18 09:25 | Outpatient (AMB) | payer MEDICARE, MEDICAID, SELFPAY ==
--- NOTE | 2024-10-18 10:10 | MHC.OFFVISCO ---
Intake Intake Visit Reasons: Anticoagulation Allergies adenosine Allergy (Severe, Verified 10/18/24 09:56) cardiac, elevated BP, Stroke Gadolinium-Containing Contrast Medi Allergy (Severe, Verified 10/18/24 09:56) red eyes Iodinated Contrast Media [CONTRAST, IV] Allergy (Severe, Verified 10/18/24 09:56) Seizure carvedilol Allergy (Intermediate, Verified 10/18/24 09:56) disorientation erythromycin base Adverse Reaction (Unknown, Verified 10/18/24 09:56) Gut pain , Abdominal Pain, GI upset Nursing Note ambulates to appt with cane - c/o of arthritic pain in legs difficulty from sitting to standing ? due to weather INR: 2.9 in therapeutic range Medications and supplements reviewed No changes in health, diet, medications, or supplements, Denies any signs and symptoms of bleeding or bruising or clotting. Bleeding, bruising, clotting discussed Nutritional guidance given Dose: KEEP SAME DOSE 5mg wed/ 7.5mg x 6 days F/U INR: 1 month Patient verbalizes understanding of instructions given with read back Anti-Coag Initial Assessment Social Hx Patient Tobacco Use Status: Never used Tobacco alcohol intake: never Alcohol intake frequency: does not drink Coding Level of Care Code Est Patient Level 1 Diagnoses Current use of anticoagulant therapy Z79.01 Results AMB INR Fingerstick AMB INR Fingerstick 2.9 Last Edit by Tyesha Valente RN on 10/18/24 10:06 manual entry - interface failure Assessment & Plan Assessment & Plan (1) Current use of anticoagulant therapy: Comment: Warfarin Code(s): 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
--- OUTSIDE RECORDS SUMMARY | 2024-10-18 10:38 | XMS_ITS ---
Author Organization Yonathan Womack MD Address [address] [place] [phone] Care Team Providers Care Light Rail Vehicle Operator Name Role Phone Yonathan Womack Primary Care Provider REASON FOR VISIT Renal US BI due Encounters Encounter Location Date Provider Diagnosis Yonathan Womack MD [address] [facility] [address] [place] [phone] 10/16/2024 Yonathan Womack Plan Of Treatment Next Appt Details Provider Name:Yonathan mendoza, 12/21/2024 07:45:00 AM, [address] [facility], Suite [facility], [place], [place], [phone], Provider Name:Yonathan mendoza, 12/28/2024 10:15:00 AM, [address] [place] [address], Suite [facility], [place], [place], [phone], Provider Name:Yonathan mendoza, 03/21/2025 07:00:00 AM, [address] [place] [address], [address], [phone], Provider Name:Yonathan Pan janyr, 09/17/2025 07:45:00 AM, [address], [address], [place], [phone], Provider Name:Yonathan Pan janyr, 09/24/2025 01:00:00 PM, [address], [address], [place], [phone], Provider Name:Yonathan Pan janyr, 03/28/2026 10:00:00 AM, [address], [address], [place], [phone], Progress Notes * STEVEN NUNEZDOB: [birth year] (79 yo M)Acc No.[id number]:10/16/2024 Patient:?STEVEN NUNEZ :1945???Age:79 Y???Sex:Male Address:[address] [place] [address], [address] * * Date:?
--- OUTSIDE RECORDS SUMMARY | 2024-10-18 10:38 | XMS_ITS ---
Author Organization Yonathan Womack MD Address [address] [place] [phone] Care Team Providers Care Fur Liner Name Role Phone Yonathan Womack Primary Care Provider REASON FOR VISIT home services for PT Encounters Encounter Location Date Provider Diagnosis Yonathan Womack MD 10 [facility] [address] [place] [phone] 10/15/2024 Yonathan Womack Plan Of Treatment Next Appt Details Provider Name:Yonathan mendoza, 12/21/2024 07:45:00 AM, [address] [place] [address], [address] [place] [address], [phone], Provider Name:Yonathan mendoza, 12/28/2024 10:15:00 AM, [address] [place] [address], [address], [phone], Provider Name:Yonathan mendoza, 03/21/2025 07:00:00 AM, [address] [place] [address], [address], [phone], Provider Name:Yonathan Pan janyr, 09/17/2025 07:45:00 AM, [address], [address], [place], [phone], Provider Name:Yonathan Pan janyr, 09/24/2025 01:00:00 PM, [address] [facility] [address], [address], [place], [phone], Provider Name:Yonathan Pan janyr, 03/28/2026 10:00:00 AM, [address] [place] [address] Drive, [address], [place], [phone], Progress Notes * STEVEN NUNEZDOB: [birth year] (79 yo M)Acc No.[id number]:10/15/2024 Patient:?STEVEN NUNEZ :1945???Age:79 Y???Sex:Male Address:[address] [place] [address], [address] * * Date:?
--- OUTSIDE RECORDS SUMMARY | 2024-10-18 10:38 | XMS_ITS | Encounter Summary ---
Author Organization [facility] Address [address] [place] [address] Care Team Providers Care Assistant Director Of Nursing Name Role Phone Yonathan Womack MD Primary Care Provider [phone] Reason for Visit * Reason Onset Date Comments Med Refill 10/11/2024 Furosemide, Spri nolactone Encounter Details Date Type Department Care Team (Late st Contact Info) Description 10/11/2024 Telephone [facility] [address] [place] [phone] Eddie Granados MD [address] [place] [address] DR[address] [place], [place] [phone] Med Refill (Furosemide, Sprinolactone ) Social History Tobacco Use Types Packs/Day Years Used Date Smoking Tobacco: Former Cigarettes Q uit: 08/22/1998 Smokeless Tobacco: Never Alcohol Use Standard Drinks/Week Comments Not Currently 0 (1 standard drink = 0.6 oz pur e alcohol) Sex and Gender Information Value Date Recorded Sex Assigned at Not on file Legal Sex Male 7:14 AM EST Gender Identity Not on file Sexual Orientation Not on file documented as of this encounter Ordered Prescriptions Prescription Sig Dispense Quantity Refills Last Filled Start Date End Date spironolactone (ALDACTONE) 25 mg tablet Take 0.5 tablets (12.5 mg total) by mouth 1 (one) time each day. 45 tablet 2 10/15/2024 furosemide (LASIX) 20 mg tablet Take 2 tablets (40 mg total) by mouth 1 (one) time each day. 180 tablet 2 10/15/2024 furosemide (LASIX) 20 mg tablet Take 2 tablets (40 mg total) by mouth 1 (one) time each day. 180 tablet 2 10/12/2024 5 spironolactone (ALDACTONE) 25 mg tablet Take 0.5 tablets (12.5 mg total) by mouth 1 (one) time each day. 45 tablet 2 10/12/2024 5 furosemide (LASIX) 20 mg tablet Take 2 tablets (40 mg total) by mouth 1 (one) time each day. 180 tablet 2 10/12/2024 5 spironolactone (ALDACTONE) 25 mg tablet Take 0.5 tablets (12.5 mg total) by mouth 1 (one) time each day. 45 tablet 2 10/12/2024 5 spironolactone (ALDACTONE) 25 mg tablet Take 0.5 tablets (12.5 mg total) by mouth 1 (one) time each day. 45 tablet 2 10/11/2024 5 furosemide (LASIX) 20 mg tablet Take 2 tablets (40 mg total) by mouth 1 (one) time each day. 180 tablet 2 10/11/2024 5 documented in this encounter Progress Notes * Alycia Westbrook RN - 10/15/2024 8:39 AM ESTAddended by: ALYCIA WESTBROOK on: 10/15/2024 08:39 AM Modules accepted: Orders * Alycia Westbrook RN - 10/15/2024 8:39 AM EST Sent Furosemide and Spironolactone refills to pt's preferred pharmacy * Casandra Reddy - 10/15/2024 8:24 AM EST The patient called, please resend to [place] [facility] [place] [facility]. * Kourtney Schultz MA - 10/12/2024 9:31 AM ESTAddended by: KOURTNEY SCHULTZ on: 10/12/2024 09:31 AM Modules accepted: Orders * Kourtney Schultz MA - 10/12/2024 9:31 AM EST Meds re-routed to [facility] [place] * Kourtney Schultz MA - 10/12/2024 9:24 AM ESTAddended by: KOURTNEY SCHULTZ on: 10/12/2024 09:24 AM Modules accepted: Orders * Kourtney Schultz MA - 10/12/2024 9:23 AM EST All set * Casandra Reddy - 10/12/2024 9:15 AM EST The patient called back please resend his furosemide and spironolactone to the [facility] in [place]. * Alycia Westbrook RN - 10/11/2024 11:55 AM EST [facility] 07/24/24 Labs 04/11/24 Called pt to confirm Spironolactone dosing. Notes reflect he should be taking Spironolactone 12.5 mg daily. Pt confirmed he takes Spironolactone 12.5 mg daily. Furosemide and Spironolactone refills sent * Theresa Perez - 10/11/2024 11:45 AM EST Patient called requesting refill for Furosemide 20 mg, 2 tablets daily, and Spironolactone 25 mg, 1tablet daily. Please send 90 day supply to [facility] in [place]. Patient is almost out of medication. documented in this encounter Plan of Treatment Not on file documented as of this encounter Visit Diagnoses Not on filedocumented in this encounter Discontinued Medications Medication Sig Discontinue Reason Start Date End Da te furosemide (LASIX) 20 mg tablet Take 2 tablets (40 mg total) by mouth 1 (one) time each day. Reorder 04/04/2024 10/11/2024 spironolactone (ALDACTONE) 25 mg tablet Take 0.5 Tablets by mouth daily. Reorder 11/23/2023 10/11/2024 furosemide (LASIX) 20 mg tablet Take 2 tablets (40 mg total) by mouth 1 (one) time each day. Reorder 10/11/2024 10/12/2024 spironolactone (ALDACTONE) 25 mg tablet Take 0.5 tablets (12.5 mg total) by mouth 1 (one) time each day. Reorder 10/11/2024 10/12/2024 spironolactone (ALDACTONE) 25 mg tablet Take 0.5 tablets (12.5 mg total) by mouth 1 (one) time each day. Reorder 10/12/2024 10/12/2024 furosemide (LASIX) 20 mg tablet Take 2 tablets (40 mg total) by mouth 1 (one) time each day. Reorder 10/12/2024 10/12/2024 spironolactone (ALDACTONE) 25 mg tablet Take 0.5 tablets (12.5 mg total) by mouth 1 (one) time each day. Reorder 10/12/2024 10/15/2024 furosemide (LASIX) 20 mg tablet Take 2 tablets (40 mg total) by mouth 1 (one) time each day. Reorder 10/12/2024 10/15/2024 documented as of this encounter Care Teams Assistant Director Of Nursing Relationship Specialty Start Date End Date Yonathan Womack MD PCP - General 12/26/12 documented as of this encounter
--- OUTSIDE RECORDS SUMMARY | 2024-10-18 10:38 | XMS_ITS | Clinical Summary ---
Author Organization [address] [place] [address] [place] [phone] Phone Care Team Providers Care Carry Out Clerk And Shelf Stocker Name Role Phone Yonathan Womack MD Primary Care Provider [phone] Allergies Active Allergy Reactions Criticality Noted Date Comments Adenosine High 05/26/2021 Erythromycin Stearate 05/26/2021 Iodinated Contrast Media 05/26/2021 Medications CALCIUM-VITAMIN D3-MAGNESIUM ORAL Take 1 tablet by mouth 1 (one) time each day. Active coenzyme Q-10 100 mg capsule Take 1 capsule (100 mg total) by mouth 1 (one) time each day. Active sacubitriL-valsar bishop (Entresto) 24-26 mg per tablet Take 1 tablet by mouth 2 (two) times a day. 4 Active LORazepam (ATIVAN) 0.5 mg tablet Take 0.5 Tablets by mouth 2 times daily. Active omeprazole (PriLOSEC) [address] capsule Take 20 mg by mouth daily. Active simvastatin (ZOCOR) 20 mg tablet Take 0.5 tablets (10 mg total) by mouth at bedtime. 4 Active warfarin (COUMADIN) 2.5 mg tablet Take 1 Tablet by mouth See Admin Instruction s. May cause heavy bleeding. Take at same time every day. Do not change dietary habits. Managed by [facility]. Active metoprolol succinate (TOPROL-XL) 25 mg 24 hr tabletIndications :Paroxysmal atrial fibrillation (CMS/HCC) Take 1 tablet (25 mg total) by mouth 1 (one) time each day. Do not crush or chew. 30 each 11 4 07/17/20 25 Active furosemide (LASIX) 20 mg tablet Take 2 tablets (40 mg total) by mouth 1 (one) time each day. 180 tablet 2 5 Active spironolactone (ALDACTONE) 25 mg tablet Take 0.5 tablets (12.5 mg total) by mouth 1 (one) time each day. 45 tablet 2 5 Active furosemide (LASIX) 20 mg tablet Take 2 tablets (40 mg total) by mouth 1 (one) time each day. 4 10/11/19 25 Discontinu ed(Reorder ) spironolactone (ALDACTONE) 25 mg tablet Take 0.5 Tablets by mouth daily. 4 10/11/19 25 Discontinu ed(Reorder ) furosemide (LASIX) 20 mg tablet Take 2 tablets (40 mg total) by mouth 1 (one) time each day. 180 tablet 2 5 10/12/19 25 Discontinu ed(Reorder ) spironolactone (ALDACTONE) 25 mg tablet Take 0.5 tablets (12.5 mg total) by mouth 1 (one) time each day. 45 tablet 2 5 10/12/19 25 Discontinu ed(Reorder ) spironolactone (ALDACTONE) 25 mg tablet Take 0.5 tablets (12.5 mg total) by mouth 1 (one) time each day. 45 tablet 2 5 10/12/19 25 Discontinu ed(Reorder ) furosemide (LASIX) 20 mg tablet Take 2 tablets (40 mg total) by mouth 1 (one) time each day. 180 tablet 2 5 10/12/19 25 Discontinu ed(Reorder ) spironolactone (ALDACTONE) 25 mg tablet Take 0.5 tablets (12.5 mg total) by mouth 1 (one) time each day. 45 tablet 2 5 10/15/19 25 Discontinu ed(Reorder ) furosemide (LASIX) 20 mg tablet Take 2 tablets (40 mg total) by mouth 1 (one) time each day. 180 tablet 2 5 10/15/19 25 Discontinu ed(Reorder ) Active Problems Problem Noted Date Diagnosed Date [...] he would go to the [facility] ER from our office. He has a [...] to the emergency room at [facility] for chest pain both times he was [...] History of atrial fibrillation with stroke. High [id number] score remains chronically anticoagulated Assessment & Plan (07/30/2024 8:19 AM EST): Orders: ECG 12 lead Coronary arteriosclerosis in [place] artery 05/26 Overview (06/07/2024): Last Assessment & [...] Encounters Date Type Department Care Team Description 10/11/2024 Telephone [facility] [address] [facility] [address] [place] [address] Eddie Granados MD Med Refill (Furosemide, Sprinolactone ) 07/24/2024 3:20 PM EST Consult [facility] - [address] [place] [address] Adeel Powers MD Atrial fibrillation, unspecified type (CMS/HCC) (Primary Dx); Dilated cardiomyopathy (CMS/HCC) from Last 3 Months Medical History Medical History Date Comments CVA (cerebral vascular accident) (CMS/HCC) DX:CVA (cerebral vascular accident) (HCC) Chronic ischemic heart disease D X:Chronic ischemic [...] on file Sexual Orientation Not on file Obstetrics History Last Filed [...] Last Done Comments COVID-19 Vaccine (#1) 1950 DTaP,Tdap,and Td Vaccines (1 - Tdap) 1965 Pneumococcal Vaccine: 50+ Ye ars (1 of 2 - PCV) 1965 Zoster Vaccines (1 of 2) 1965 [...] patient's age to complete this topic Meningococcal B Vacine Aged Out No lo nger eligible based on patient's age to complete [...] fibrillation, unspecified type (CMS/HCC) Dilated cardiomyopathy (CMS/HCC) from Last 3 Months Results * ECG 12 lead (07/24/2024 3:30 PM EST) Ventricular Rate ECG 71 BPM GEMUSE Atrial Rate 71 BPM GEMUSE P-R Interval 250 ms GEMUSE QRS Duration 114 ms GEMUSE Q-T Interval 414 ms GEMUSE QTc 449 ms GEMUSE P Wave [place] 46 degrees GEMUSE R [place] -45 degrees GEMUSE T [place] 9 degrees GEMUSE ECG Interpretation Sinus rhythm [...] 3:30 PM EST 07/29/2024 5:23 PM EST us Adeel Powers MD ECG ORDERABLES Final Resu lt GEMUSE from Last 3 Months Insurance [employer] [place] Care Teams Carry Out Clerk And Shelf Stocker Relationship Specialty Start Date End Date Yonathan Womack MD PCP - General 12/26/12
[2024-10-18 11:13] LABS: Prothrombin Time Whole Bld POC 34.6 sec (11.1-13.5); ~PT, ~INR - Anti Coag Clinic 2.9 (0.9-1.1)
== END 2024-10-18 10:13 | disposition home or self-care (01) ==
LOC: HO.ACS 09:25
PROVIDERS: PCP Internal Medicine; Visit Provider Internal Medicine
DX: Z79.01 Long term (current) use of anticoagulants (principal)

== ENCOUNTER → 2024-10-18 09:25 | Outpatient (BNVA) | payer MEDICARE, MEDICAID, SELFPAY | PROVIDERS: PCP Internal Medicine; Visit Provider Internal Medicine | DX: I48.20 Chronic atrial fibrillation, unspecified (principal); Z79.01 Long term (current) use of anticoagulants; Z51.81 Encounter for therapeutic drug level monitoring | CPT/HCPCS: 85610; 99211 ==

== ENCOUNTER 2024-11-12 09:01 | Outpatient (REF) | payer MEDICARE, MEDICAID, SELFPAY ==
--- NOTE | ~2024-11-12 | US_ITS ---
CLINICAL HISTORY: Disorders of adrenal gland US RENAL Comparison: US/OH/SR - US ABDOMEN COMPLETE - 10/06/23 08:38 EST Findings: The right kidney measures 11.4 cm in length. Renal cortical thickness and echotexture are within normal limits. No hydronephrosis or shadowing calculus. There are 2 exophytic cysts in the midpole measure 1.4 cm and 1.0 cm. At least 1 of the cysts was seen on prior study. The left kidney measures 13.4 cm in length. The upper pole is not well-visualized, obscured by bowel gas. Mild diffuse renal cortical thinning with increased cortical echoes can be seen with medical renal disease. No hydronephrosis. No definite shadowing calculus or cortical mass lesion. IMPRESSION: 1. No right hydronephrosis. No sonographic evidence for nephrolithiasis. Small cysts. 2. Limited assessment of the left kidney with no obvious hydronephrosis. Mild cortical thinning with increased cortical echoes can be seen with medical renal disease. This document has been electronically signed by: Natasha Rosales DO on 11/12/2024 17:39:32
== END 2024-11-12 09:02 | disposition home or self-care (01) ==
LOC: HO.US 09:01
PROVIDERS: PCP Internal Medicine; Visit Provider Internal Medicine
DX: E27.8 Other specified disorders of adrenal gland (principal)
CPT/HCPCS: 76775

== ENCOUNTER → 2024-11-12 09:28 | Outpatient (BNV) | payer MEDICARE, MEDICAID, SELFPAY | PROVIDERS: PCP Internal Medicine; Visit Provider Radiology Diagnostic Radiology | DX: N28.1 Cyst of kidney, acquired (principal) | CPT/HCPCS: 76775 ==

== ENCOUNTER 2024-11-19 09:01 | Outpatient (AMB) | payer MEDICARE, MEDICAID, SELFPAY ==
[2024-11-19 09:33] LABS: Prothrombin Time Whole Bld POC 32.8 sec (11.1-13.5); ~PT, ~INR - Anti Coag Clinic 2.7 (0.9-1.1)
--- NOTE | 2024-11-19 09:39 | MHC.OFFVISCO ---
Intake Intake Visit Reasons: Anticoagulation Allergies adenosine Allergy (Severe, Verified 11/19/24 09:19) cardiac, elevated BP, Stroke Gadolinium-Containing Contrast Medi Allergy (Severe, Verified 11/19/24 09:19) red eyes Iodinated Contrast Media [CONTRAST, IV] Allergy (Severe, Verified 11/19/24 09:19) Seizure carvedilol Allergy (Intermediate, Verified 11/19/24 09:19) disorientation erythromycin base Adverse Reaction (Unknown, Verified 11/19/24 09:19) Gut pain , Abdominal Pain, GI upset Medication List - Last Reconciled 11/19/24 by Tyesha Valente, RN carboxymethylcellulose sodium 0.5% (Refresh Tears) 1 drp ophthalmic (eye) BID coenzyme Q10 (CoQ-10) 100 mg PO DAILY furosemide 40 mg PO DAILY lorazepam 0.5 mg PO BID metoprolol succinate ER mg PO DAILY omeprazole 20 mg PO DAILY@0630 sacubitril-valsartan 24-26 mg (Entresto) 1 tab PO BID simvastatin mg PO spironolactone 25 mg PO DAILY warfarin See Protocol 5mg tuesday/ 7.5mg x 5 days; Nursing Note INR: 2.7 in therapeutic range Medications and supplements reviewed pt states he feels his heart rate flucuating anywhere from 50- 120 - he stated when he lays down for a period of time sometimes 45 min -he feels better. He stated he spoke with his daughter who is a nurse, Pt refuses ER today - as his HR change was noticed on his oximeter 49-96 . His lips and nails beds and facial color appears pink and healthy, he denies any c/p or sob, He states he sometimes feels dizzy. He was enc to call his Account Leader to help maybe adjust his meds. He stated he would. Denies any signs and symptoms of bleeding or bruising or clotting. Bleeding, bruising, clotting discussed Nutritional guidance given - cont to eat a mix of fruits and vegetables Dose: 5MG X 1 DAY/ 7.5MG X 6 DAYS F/U INR: 1 MONTH Patient verbalizes understanding of instructions given with read back Anti-Coag Initial Assessment Social Hx Patient Tobacco Use Status: Never used Tobacco alcohol intake: never Alcohol intake frequency: does not drink Coding Level of Care Code Est Patient Level 1 Diagnoses Current use of anticoagulant therapy Z79.01 Results AMB INR Fingerstick AMB INR Fingerstick 2.7 Last Edit by Tyesha Valente RN on 11/19/24 09:31 manual entry Assessment & Plan Assessment & Plan (1) Current use of anticoagulant therapy: Comment: Warfarin Code(s): Z79.01 - [facility] (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
== END 2024-11-19 09:46 | disposition home or self-care (01) ==
LOC: HO.ACS 09:01
PROVIDERS: PCP Internal Medicine; Visit Provider Internal Medicine Medical Oncology
DX: Z79.01 Long term (current) use of anticoagulants (principal)

== ENCOUNTER → 2024-11-19 09:01 | Outpatient (BNVA) | payer MEDICARE, MEDICAID, SELFPAY | PROVIDERS: PCP Internal Medicine; Visit Provider Internal Medicine Medical Oncology | DX: I48.20 Chronic atrial fibrillation, unspecified (principal); Z51.81 Encounter for therapeutic drug level monitoring; Z79.01 Long term (current) use of anticoagulants | CPT/HCPCS: 85610; 99211 ==

== ENCOUNTER 2024-12-05 22:38 | Emergency (ER) | payer MEDICARE, MEDICAID, SELFPAY ==
--- NOTE | ~2024-12-05 | XR_ITS ---
CLINICAL HISTORY: dyspnea on exertion 2 view chest x-ray Comparison: Chest x-ray from 11/30/2022 Findings: Small bilateral pleural effusions with mild bibasilar atelectasis/pneumonitis. Edema superimposed on chronic lung disease also considered. Emphysematous changes are redemonstrated. Mild cardiomegaly redemonstrated. Degenerative changes include imaged shoulders and imaged spine. Small Schmorl's nodes are noted. IMPRESSION: Small pleural effusions with bibasilar atelectasis/pneumonitis. This document has been electronically signed by: Erick Thurman MD on 12/06/2024 02:59:17
--- NOTE | 2024-12-05 22:55 | ECG_ITS ---
Test Reason : SOB Blood Pressure : */* mmHG Vent. Rate : 101 BPM Atrial Rate : 101 BPM P-R Int : 232 ms QRS Dur : 154 ms QT Int : 438 ms P-R-T Axes : * -47 21 degrees QTcB Int : 567 ms Sinus tachycardia with 1st degree A-V block with occasional Premature ventricular complexes and Fusion complexes Right bundle branch block Left anterior fascicular block Bifascicular block Abnormal ECG When compared with ECG of 08-Jan-2023 22:49, Fusion complexes are now Present Right bundle branch block is now Present Referred By: Generic ED Physician Electronically Signed By: ELICEO GARCIAS MD
[2024-12-05 22:57] VITALS: BP 146/80; PULSE 103; O2SAT 93; BMI 32.1
[2024-12-05 23:00] VITALS: BP 111/74; PULSE 103; RESP 20; TEMP 36.5; O2SAT 93
[2024-12-05 23:18] LABS: MANUAL DIFF FLAG NO
[2024-12-05 23:20] LABS: Basophils Percent Auto 0.4 % (0-2); Eosinophils Absolute Auto 0.1 X10*3/uL (0.0-0.4); Eosinophils Percent Auto 0.5 % (0-4); Hemoglobin 14.1 g/dl (14.0-18.0); Imm Gran Abs Auto 0.06 X10*3/uL (0.00-0.03); Imm Gran Pct Auto 0.5 % (0.0-0.4); Lymphocytes Absolute Auto 2.5 X10*3/uL (1.2-4.9); Lymphocytes Percent Auto 22.2 % (20-40); Mean Corpuscular HGB Conc 34.4 g/dl (31.0-36.0); Mean Corpuscular Hemoglobin 30.3 pg (27.0-33.0); Mean Platelet Volume 10.8 fL (9.4-12.4); Monocytes Absolute Auto 0.6 X10*3/uL (0.1-1.2); Monocytes Percent Auto 5.6 % (2-11); Neutrophils Percent Auto 70.8 % (45-73); Platelet Count 139 X10*3/uL (160-400); Red Blood Count 4.66 X10*6/uL (4.60-5.80); Red Cell Distribution Width 13.6 % (11.0-16.0); White Blood Count 11.3 X10*3/uL (4.8-10.8)
[2024-12-05 23:25] LABS: INTERNATIONAL NORM RATIO 3.6 (0.9-1.1); Prothrombin Time 42.1 SEC (10.9-12.4)
[2024-12-05 23:37] LABS: Alanine Aminotransferase 19 U/L (0-40); Albumin Level 3.7 g/dL (3.5-5.0); Alkaline Phosphatase 89 U/L (39-117); Anion Gap 13 (12-20); Aspartate Amino Transferase 24 U/L (5-37); Bilirubin Total 0.6 mg/dL (0.0-1.0); Blood Urea Nitrogen 28 mg/dL (9-16); Calcium 8.9 mg/dL (8.4-10.2); Carbon Dioxide 23 mmol/L (22-29); Chloride 105 mmol/L (96-108); Creatinine Clr Calc Pharmacy 61.5; Estimated Glomerular Filt Rate > 60; Glucose Random 154 mg/dL (60-115); Potassium 3.3 mmol/L (3.3-5.1); Sodium 138 mmol/L (135-145); Total Protein 6.1 g/dL (6.5-8.0)
[2024-12-05 23:44] LABS: Troponin-I High Sensitivity 34.4 ng/L (<3.5-35.0)
--- OUTSIDE RECORDS SUMMARY | 2024-12-06 00:54 | XMS_ITS | Encounter Summary ---
Author Organization [facility] Address [address] [place] [address] Care Team Providers Care Space Planner Name Role Phone Yonathan Womack MD Primary Care Provider Reason for Visit * Reason Onset Date Comments Weight Gain 12/05/2024 irregular heart rate 12/05/2024 Encounter Details Date Type Department Care Team (Late st Contact Info) Description 12/05/2024 Telephone [facility] [address] [place] [address] Eddie Granados MD [address] [place] [address] [address] [place], [place] [id number] Weight Gain; irregular heart rate Social History Tobacco Use Types Packs/Day Years [...] on file documented as of this encounter Progress Notes * Alycia Westbrook RN - 12/05/2024 9:34 AM EDT I spoke to Russell. He is agreeable to take an extra 40 mg of Furosemide this afternoon and obtain blood work this week at the lab located in [facility]. BMP ordered and faxed to [facility] lab per patient request ([phone]). Confirmation received. I scheduled patient for a visit with Michaela Anguiano NP on 12/20/24 @ 11:30 AM. * Michaela Anguiano NP - 12/05/2024 9:24 AM EDT Have him take an extra 40 mg Lasix this afternoon. Also lets arrange for him to be seen in the office. He should have a basic metabolic panel done this week. You can put him in a triage spot at 1130 on December 20. * Alycia Westbrook RN - 12/05/2024 8:51 AM EDT Russell Tiwari is a 79 y.o. male, followed by Dr. Granados/ ALIE Michaela Anguiano with cardiac history of A-fib and HFrEF. His history also includes CVA and sleep apnea. Patient reports weight gain, fatigue, orthopnea, decreased urine output, wheezing at night on exhalation, and palpitations waking him up from sleeping multiple times nightly since last week. Last week, he weighed 205 lbs. Today, he weighs 208 lbs. He reports minimal right ankle edema and left leg edema. He reports shortness of breath on exertion intermittently; mostly experiences at night when laying down and experiences wheezing. Patient has a hospital bed and sleep with the head of the bed elevated. Pt wakes up multiple times a night with palpitations. HR has been labile with readings in the 50's to low 100's. He increased Metoprolol ER to 50 mg daily on 11/19/24 and reported it's helped de crease his HR. Patient has sleep apnea, but could not tolerate wearing a CPAP. Patient reports compliance with Furosemide 40 mg daily, Spironolactone 12.5 mg daily, in additional to his cardiac meds in med module- no missed doses. He reports compliance with a low sodium diet. BP last night [id number], HR 65 bpm. This morning, he hasn't checked BP but his HR is 93 bpm and O2 93%. He denies palpitations currently. No recent illness. Patient questioned if he can take a full 25 mg tablet of Spironolactone daily? * Agustin Gregory - 12/05/2024 8:36 AM EDT Patient called today because he has been experiencing recent unexpected weight gain and reports hearing a wheezing sound in the his chest when lying down at night. He also reports that his heart rateis jumping from 50's to 105 and back down, causing him to wake from sleep and making it difficult to sleep. He is currently on Furosemide and Spironolactone; should either be adjusted? He also wants to inquire about potential supplemental oxygen or nitroglycerin. Please give him a call at [phone] to advise. documented in this encounter Plan of Treatment Upcoming Encounters Date Type Department Care Team (Late st Contact Info) Description 12/20/2024 11:30 AM EDT Office Visit [facility] Cardiology [facility] [address] [place] [address] [place] [address] Michaela Anguiano NP [address] [place] [address] [place] [address] 01/24/2025 9:10 AM EDT Office Visit [facility] Cardiology [facility] Dr [address] [facility] [address] Michaela Anguiano NP [address] [place] [address] [address] [place] [address] Scheduled Orders Name Type Priority Associated Diagnoses Orde r Schedule Basic metabolic panel Lab Routine Atrial fibrillation, unspecified type (CMS/HCC V24, CMS/HCC V28) Expected: 12/05/2024, Expires: 12/05/2025 documented as of this encounter Visit Diagnoses Diagnosis Atrial fibrillation, unspecified type ([facility] V24, [facility] V28)- Primary documented in this encounter Care Teams Space Planner Relationship Specialty Start Date End Date Yonathan Womack MD PCP - General 12/26/12 documented as of this encounter
--- OUTSIDE RECORDS SUMMARY | 2024-12-06 00:54 | XMS_ITS ---
Author Organization Yonathan Womack MD Address [address] [place] [phone] Care Team Providers Care Speech Pathologist Name Role Phone Shanta Yonathan Primary Care Provider [phone] Allergies Allergen (clinical drug ingredient) Drug/Non Drug Allergy documented on EMR Reaction Allergy Type Onset Date Status gadolinium (uncoded) red eues Allergy Active Adedison (uncoded) Elevated BP Allergy Active erythromycin Erythromyicin (uncoded) GI Upset Allergy Active erythromycin Ilisone (uncoded) GI Upset Allergy Active IVPDye (uncoded) Convulsion Allergy Ac tive Reason For Referral Reason please eval and jing t for physical therapy Diagnosis 1 Abnormal gait (R26.9 ) Diagnosis 2 Shoulder pain (M25.5 19) Diagnosis 3 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) Referral Organization Yonathan Womack MD Referring Provider First Name Yonathan Referring Provider Last Name Shanta Referring Provider Speciality Internal M edicine Referred Provider JEROME URIBE Referred Provider Specialty Unknown General Notes Otilia Nova 0 11/01/2024 11:51:33 AM >referral faxed to [facility] Annette 11/01/2024 03:11:27 PM >Jena CANO isn't under contact with [facility] info faxed to [facility] Annette 11/02/2024 11:22:49 AM > was told to refax [facility] An[facility] 11/05/2024 01:12:28 PM > was told again to refaxed referralNafisa Patti A 11/06/2024 09:12:42 AM >MR NUNEZ ACCEPTED BY [facility] FOR PT BEGINNING 11/07 , SHERINE AT [phone] #2 IF ANY QUESTIONS Referral Priority Routine Referral Appointment Date 11/07/2024 REASON FOR VISIT needs referral for VNA services for PT with a good Dx. Medications Medication SIG (Take, Route, Frequency, Duration) Notes Start Date End Date Status Triamcinolone Acetonide 0.1 % 1 application Externally Once a day for 30 days 07/23/2021 Active Simvastatin 40 MG TAKE 1/2 TABLET BY MOUTH EVERY EVENING Active Nitrostat 0.4 MG as directed Sublingu al every 5 mins times 3 for 30 days 11/30/2016 Not-Taking Co Q 10 100 MG 1 capsule with a indy l Orally Once a day for 30 day(s) Active FreeStyle Lite Test - TEST BLOOD SUGAR O NCE EVERY DAY for 50 Active Imodium A-D 2 MG 1 tablet as needed Orally Four times a day Not-Taking Triamcinolone Acetonide 0.5 % 1 application to affected area Externally Twice a day for 30 days 10/03/2014 Not-Taking Furosemide 20 MG TAKE 2TABLET BY MOUT H EVERY DAY Active Tylenol Extra Strength 500 MG 1/2 tablet Orally every 6 hrs Not-Taking Spironolactone 25 MG 1 tablet Orally Active LORazepam 0.5 MG TAKE 1 TABLET BY CASSIUS TH EVERY DAY NEEDED Orally Once a day for 30 days 09/04/2024 Active Metoprolol Succinate 25 MG 1 capsule Ora lly Once a day Active Entresto 24-26 MG 1 tablet Orally Twic e a day Active Omeprazole 20 MG TAKE 1 CAPSULE BY MOUTH EVERY DAY 30 MINUTES BEFORE BREAKFAST Active Warfarin Sodium 2.5 MG TAKE 3 TABLETS BY MOUTH 6 DAYS A WEEK AND 2 TABLETS BY MOUTH 1 DAY A WEEK Active FreeStyle Lancets - USE TO CHECK BLOOD SUGAR ONCE A DAY for 90 Active Problems Problem Type SNOMED Code ICD Code Onset Dates Problem Status W/U Status Risk Notes Problem Abnormal gait (48621936) Abnormal gait (R26.9) Active confirmed Vital Signs Blood pressure systolic 102 mm Hg 10/26/19 25 Blood pressure diastolic 60 mm Hg 025 Height 69 in 10/25/2024 Weight 209 lbs 10/25/2024 BMI 30.86 kg/m2 10/25/2024 Encounters Encounter Location Date Provider Diagnosis Yonathan Womack MD [address] [place] [address] [place] [phone] 10/25/2024 Yonathan Womack Shoulder pain M25.519 and Abnormal gait R26.9 Assessments Encounter Date Diagnosis (ICD Code) Assessment Notes Treatment Notes Treatment Clinical Notes Section Notes 10/25/2024 Shoulder pain (ICD-10 - M25.519) neeeds physical therapy and getting out of house is almost impossible due to his previous stroke 10/25/2024 Abnormal gait (ICD-10 - R26.9) needs physical therapy Plan Of Treatment Treatment Notes Assessment Notes Shoulder pain neeeds adapted physical education aide apy and getting out of house is almost impossible due to his previous stroke Abnormal gait needs physical thera py Referrals Referral Date Details 10/25/2024 10/25/2024, please e sona and treat [facility] Provider Name:Yonathan mendoza, 12/21/2024 07:45:00 AM, [address] [place] [address], [address] [place] [address], [phone], Provider Name:Yonathan mendoza, 12/28/2024 10:15:00 AM, [address] [place] [address], [address], [phone], Provider Name:Yonathan mendoza, 03/21/2025 07:00:00 AM, [address] [place] [address], [address], [phone], Provider Name:Yonathan mendoza, 09/17/2025 07:45:00 AM, [address], [address], [place], [phone], Provider Name:Yonathan Pan ier, 09/24/2025 01:00:00 PM, [address], [address], [place], [phone], Provider Name:Yonathan Pan janyr, 03/28/2026 10:00:00 AM, [address] [facility], [address], [place], [phone], Progress Notes * STEVEN NUNEZDOB: [birth year] (79 yo M)Acc No.[id number]:10/25/2024 Progress Notes Patient:?STEVEN NUNEZ Provider:?Yonathan Womack MD :1945???Age:79 Y???Sex:Male Jr e:10/25/2024 Address:[address] [place] [address] Subjective: * Chief Complaints: * ???needs referral for VNA se rvices for PT with a good Dx. * HPI: ???Symptom(s):?patient is a 79 yo male requesting VNA referral for PT,? having pains in shoulder leg hurts and has trouble getting off toilet. gets cramps down entire leg. hoping that pt can improve shoulder and walking. * ROS:?General/Constitutional:?Denies?Chills.?Denies?Fatigue.?Denies?Fever.?Denies?Headache.?ENT:?Patient denies?decreased sense of smell, any loss of taste, sore throat.?Denies?Sore throat.?Respiratory:?Denies?Cough.?Denies?Shortness of breath at rest.?Denies?Shortness of breath with exertion.?Gastrointestinal:?Denies?Diarrhea.?Denies?Nausea.?Musculoskeletal:?Patient denies?muscle aches.?Peripheral Vascular:?Patient denies?red and blue toes.? * Medical History:? * Surgical History:? * Hospitalization/Major Diagno stic Procedure:? * Medications:?TakingCo Q 10 1 00 MG Capsule 1 capsule with a meal Orally Once a day Triamcinolone Acetonide 0.1 % Cream 1 application Externally Once a day Simvastatin 40 MG Tablet TAKE 1/2 TABLET BY MOUTH EVERY EVENING FreeStyle Lite Test - Strip TEST BLOOD SUGAR ONCE EVERY DAY FreeStyle Lancets - Miscellaneous USE TO CHECK BLOOD SUGAR ONCE A DAY LORazepam 0.5 MG Tablet TAKE 1 TABLET BY MOUTH EVERY DAY NEEDED Orally Once a day Metoprolol Succinate 25 MG Capsule ER 24 Hour Sprinkle 1 capsule Orally Once a day Omeprazole 20 MG Capsule Delayed Release TAKE 1 CAPSULE BY MOUTH EVERY DAY 30 MINUTES BEFORE BREAKFAST Warfarin Sodium 2.5 MG Tablet TAKE 3 TABLETS BY MOUTH 6 DAYS A WEEK AND 2 TABLETS BY MOUTH 1 DAY A WEEK Entresto 24-26 MG Tablet 1 tablet Orally Twice a day Spironolactone 25 MG Tablet 1 tablet Orally Furosemide 20 MG Tablet TAKE 2TABLET BY MOUTH EVERY DAY Taking Co Q 10 100 MG Capsule 1 capsule with a meal Orally Once a day Taking Triamcinolone Acetonide 0.1 % Cream 1 application Externally Once a day Taking Simvastatin 40 MG Tablet TAKE 1/2 TABLET BY MOUTH EVERY EVENING Taking FreeStyle Lite Test - Strip TEST BLOOD SUGAR ONCE EVERY DAY Taking FreeStyle Lancets - Miscellaneous USE TO CHECK BLOOD SUGAR ONCE A DAY Taking LORazepam 0.5 MG Tablet TAKE 1 TABLET BY MOUTH EVERY DAY NEEDED Orally Once a day Taking Metoprolol Succinate 25 MG Capsule ER 24 Hour Sprinkle 1 capsule Orally Once a day Taking Omeprazole 20 MG Capsule Delayed Release TAKE 1 CAPSULE BY MOUTH EVERY DAY 30 MINUTES BEFORE BREAKFAST Taking Warfarin Sodium 2.5 MG Tablet TAKE 3 TABLETS BY MOUTH 6 DAYS A WEEK AND 2 TABLETS BY MOUTH 1 DAY A WEEK Taking Entresto 24-26 MG Tablet 1 tablet Orally Twice a day Taking Spironolactone 25 MG Tablet 1 tablet Orally Taking Furosemide 20 MG Tablet TAKE 2TABLET BY MOUTH EVERY DAY Not- Taking/PRNTylenol Extra Strength 500 MG Tablet 1/2 tablet Orally every 6 hrs Imodium A-D 2 MG Tablet 1 tablet as needed Orally Four times a day Triamcinolone Acetonide 0.5 % Cream 1 application to affected area Externally Twice a day Nitrostat 0.4 MG Tablet Sublingual as directed Sublingual every 5 mins times 3 Medication List reviewed and reconciled with the patientNot-Taking/PRN Tylenol Extra Strength 500 MG Tablet 1/2 tablet Orally every 6 hrs Not-Taking/PRN Imodium A-D 2 MG Tablet 1 tablet as needed Orally Four times a day Not-Taking/PRN Triamcinolone Acetonide 0.5 % Cream 1 application to affected area Externally Twice a day Not-Taking/PRN Nitrostat 0.4 MG Tablet Sublingual as directed Sublingual every 5 mins times 3 Medication List reviewed and reconciled with the patient * Allergies:?IVPDye: Convulsio nIlisone: GI UpsetErythromyicin: GI UpsetAdedison: Elevated BPgadolinium: red euesyes[Allergies Verified] Objective: * Vitals:?Ht: 69, Wt: 209, BMI :30.86, BP:102/60, Wt-k.8. * Examination: ???General Examination: ?GENERAL APPEARANCE:?alert, well hydrated, in no distress.?HEAD:?normocephalic.?SKIN:?good turgor.?HEART:?irregularly irregular rhythm.?LUNGS:?no wheezes, rales, rhonchi, good air movement, clear to auscultation bilaterally.?MUSCULOSKELETAL:?shoulder rt with limited range of motion.? Assessment: * Assessment: 1.?Shoulder pain - M25.519 ( Primary)???2.?Abnormal gait - R26.9??? Plan: * Treatment: 2.?Abnormal gait? Notes: needs physical therapy? Referral To:[facility] Bella??Miscellaneous ?Reason:please eval and treat for physical therapy 3.?Others? Referral To:[facility] Bella??Miscellaneous ?Reason:please eval and treat for physical therapy * Procedure Codes:? * * Sign off status: Completed true * Provider:?Yonathan Womack MD Date:?0 10/25/2024 Generated for Printi ng/Faaarong/eTransmitting on:?12/06/2024 12:54 AM EDT History and Physical Notes * HPI (History of Present Illness) Category Sub-Category Detail Notes Category Not es Symptom(s) patient is a 79 yo male requesting VNA referral for PT, having pains in shoulder leg hurts and has trouble getting off toilet. gets cramps down entire leg. hoping that pt can improve shoulder and walking. Examination Category Sub-Category Detail Notes Category Not es General Examination GENERAL APPEARANCE: alert, w ell hydrated, in no distress HEAD: normocephalic HEART: irregularly irregula r rhythm LUNGS: no wheezes, rales, r honchi, good air movement, clear to auscultation bilaterally SKIN: good turgor MUSCULOSKELETAL: shoulder rt with henley ited range of motion Consultation Request Notes Referral Date Referring Provider Referred Provider Not es 10/25/2024 Yonathan Womack [facility] please cole l and treat for physical therapy
--- OUTSIDE RECORDS SUMMARY | 2024-12-06 00:55 | XMS_ITS | Encounter Summary ---
Author Organization [facility] Address [id number] [place] [phone] Care Team Providers Care Internet Sales Manager Name Role Phone Yonathan Womack MD Primary Care Provider [phone] Reason for Visit * Reason Onset Date Comments Med Refill 11/29/2024 Metoprolol Encounter Details Date Type Department Care Team (Late st Contact Info) Description 11/29/2024 Telephone [facility]iology [facility] [address] [place] [address] Dr [address] [place] [phone] Eddie Granados MD [address] [place] [address] DRIVE [address] [place] [address] Med Refill (Metoprolol) Social History Tobacco Use Types Packs/Day Years [...] Refills Last Filled Start Date End Date metoprolol succinate (TOPROL-XL) 50 mg 24 hr tabletIndications: Paroxysmal atrial fibrillation (CMS/HCC V24, CMS/HCC V28) Take 1 tablet (50 mg total) by mouth 1 (one) time each day. Do not crush or chew. 90 each 3 11/29/2024 11/29/2025 documented in this encounter Progress Notes * Alyciarowena Westbrook RN - 11/29/2024 9:22 AM EDT JATIN 04/20/[address] Granados, JATIN with Dr. Bunn 07/24/24 Next 01/24/25 Metoprolol dose increased 11/19/34 Rx sent to patient's preferred pharmacy * Chidi Gaytan - 11/29/2024 9:08 AM EDT Refill request for Metoprolol Succinate 50 mg once a day for a 90 day supply, please send to [facility] in [place]. documented in this encounter Plan of Treatment Upcoming Encounters Date Type Department Care Team (Late st Contact Info) Description 12/20/2024 11:30 AM EDT Office Visit [facility] [address] [place] [address] [place] [phone] Michaela Anguiano NP [address] [place] [address] [address] [place] [address] 01/24/2025 9:10 AM EDT Office Visit [facility] [place] [phone] Michaela Anguiano NP [address] [place] [address] [address] [place] [address] documented as of this encounter Visit Diagnoses Diagnosis Paroxysmal atrial fibrillation (CMS/HCC V24, CMS/HCC V28) Atrial fibrillation documented in this encounter Discontinued Medications Medication Sig Discontinue Reason Start Date End Da te metoprolol succinate (TOPROL-XL) 50 mg 24 hr tabletIndications:Paroxys mal atrial fibrillation (CMS/HCC V24, CMS/HCC V28) Take 1 tablet (50 mg total) by mouth 1 (one) time each day. Do not crush or chew. Reorder 11/19/2024 11/29/2024 documented as of this encounter Care Teams Internet Sales Manager Relationship Specialty Start Date End Date Yonathan Womack MD PCP - General 12/26/12 documented as of this encounter
--- OUTSIDE RECORDS SUMMARY | 2024-12-06 00:55 | XMS_ITS ---
Author Organization Yonathan Womack MD Address [address] [place] [phone] Care Team Providers Care Bulk System Operator Name Role Phone Yonathan Womack Primary Care Provider REASON FOR VISIT Renal US BI due Encounters Encounter Location Date Provider Diagnosis Yonathan Womakc MD [address] [facility] [address] [place] [phone] 10/16/2024 Yonathan Womack Plan Of Treatment Next Appt Details Provider Name:Yonathan mendoza, 12/21/2024 07:45:00 AM, [address] [facility], [address], [place], [place], [phone], Provider Name:Yonathan mendoza, 12/28/2024 10:15:00 AM, [address] [place] [address], [address], [place], [place], [phone], Provider Name:Yonathan mendoza, 03/21/2025 07:00:00 AM, [address] [place] [address], [address], [phone], Provider Name:Yonathan Pan ier, 09/17/2025 07:45:00 AM, [address], [address], [place], [place], [phone], Provider Name:Yonathan Pan ier, 09/24/2025 01:00:00 PM, [address] [facility] [address], [address], [place], [phone], Provider Name:Yonathan Pan ier, 03/28/2026 10:00:00 AM, [address] [facility] [address], [address], [place], [phone], Progress Notes * STEVEN NUNEZDOB: [birth year] (79 yo M)Acc No.[id number]:10/16/2024 Patient:?STEVEN NUNEZ :1945???Age:79 Y???Sex:Male Address:[address] [place] [address], [address] * true * Date:? Generated for Douglas whitehead/Galina/eTransmitting on:?12/06/2024 12:55 AM EDT
--- OUTSIDE RECORDS SUMMARY | 2024-12-06 00:55 | XMS_ITS ---
Author Organization Yonathan Womack MD Address [address] [place] [phone] Care Team Providers Care Fertilizer Processing Supervisor Name Role Phone Yonathan Womack Primary Care Provider REASON FOR VISIT HCC Risk Codes 5/9 Encounters Encounter Location Date Provider Diagnosis Yonathan Womack MD [address] [facility] [address] [place] [phone] 11/05/2024 Yonathan Womack Plan Of Treatment Next Appt Details Provider Name:Yonathan mendoza, 12/21/2024 07:45:00 AM, [address] [facility], Suite [facility], [place], [place], [phone], Provider Name:Yonathan mendoza, 12/28/2024 10:15:00 AM, [address] [place] [address], Suite [facility], [place], [place], [phone], Provider Name:Yonathan mendoza, 03/21/2025 07:00:00 AM, [address] [place] [address], [address], [phone], Provider Name:Yonathan Pan janyr, 09/17/2025 07:45:00 AM, [address], [address], [place], [phone], Provider Name:Yonathan Pan reji, 09/24/2025 01:00:00 PM, [address] [facility] [address], [address], [place], [phone], Provider Name:Yonathan Pan janyr, 03/28/2026 10:00:00 AM, [address] [place] [address] Drive, [address], [place], [phone], Progress Notes * STEVEN NUNEZDOB: [birth year] (79 yo M)Acc No.[id number]:11/05/2024 Patient:?STEVEN NUNEZ :1945???Age:79 Y???Sex:Male Address:[address] [place] [address], [address] * * Date:?
--- OUTSIDE RECORDS SUMMARY | 2024-12-06 00:55 | XMS_ITS | Clinical Summary ---
Author Organization [address] [place] [address] [place] [phone] Phone Care Team Providers Care Marine Welder Name Role Phone Yonathan Womack MD Primary Care Provider [phone] Allergies Active Allergy Reactions Criticality Noted Date Comments Adenosine High 05/26/2021 Erythromycin Stearate 05/26/2021 Iodinated Contrast Media 05/26/2021 Medications CALCIUM-VITAMIN D3-MAGNESIUM ORAL Take 1 tablet by mouth 1 (one) time each day. Active coenzyme Q-10 100 mg capsule Take 1 capsule (100 mg total) by mouth 1 (one) time each day. Active sacubitriL-valsa rtan (Entresto) 24-26 mg per tablet Take 1 tablet by mouth 2 (two) times a day. 01/26/20 24 Active LORazepam (ATIVAN) 0.5 mg tablet Take 0.5 Tablets by mouth 2 times daily. Active omeprazole (PriLOSEC) [address] capsule Take 20 mg by mouth daily. Active simvastatin (ZOCOR) 20 mg tablet Take 0.5 tablets (10 mg total) by mouth at bedtime. 01/26/20 24 Active warfarin (COUMADIN) 2.5 mg tablet Take 1 Tablet by mouth See Admin Instruction s. May cause heavy bleeding. Take at same time every day. Do not change dietary habits. Managed by [facility]. Active furosemide (LASIX) 20 mg tablet Take 2 tablets (40 mg total) by mouth 1 (one) time each day. 180 tablet 2 10/15/19 25 Active spironolactone (ALDACTONE) 25 mg tablet Take 0.5 tablets (12.5 mg total) by mouth 1 (one) time each day. 45 tablet 2 10/15/19 25 Active metoprolol succinate (TOPROL-XL) 50 mg 24 hr tabletIndication s:Paroxysmal atrial fibrillation (CMS/HCC V24, CMS/HCC V28) Take 1 tablet (50 mg total) by mouth 1 (one) time each day. Do not crush or chew. 90 each 3 11/30/19 25 026 Active metoprolol succinate (TOPROL-XL) 25 mg 24 hr tabletIndication s:Paroxysmal atrial fibrillation (CMS/HCC V24, CMS/HCC V28) Take 1 tablet (25 mg total) by mouth 1 (one) time each day. Do not crush or chew. 30 each 11 07/17/20 24 025 Discontinued metoprolol succinate (TOPROL-XL) 50 mg 24 hr tabletIndication s:Paroxysmal atrial fibrillation (CMS/HCC V24, CMS/HCC V28) Take 1 tablet (50 mg total) by mouth 1 (one) time each day. Do not crush or chew. 90 each 3 11/20/19 25 025 Discontinued(Re order) Active Problems Problem Noted Date Diagnosed Date [...] he said he would go to the [facility] ER from our office. He has a ride and will not be driving PVD (peripheral vascular disease) ([facility] V24) 08/09/2023 Overview (06/07/2024): Last Assessment & Plan: History of peripheral vascular disease with known carotid stenosis. Dizzinesses 03/15/2023 HFrEF (heart failure with re duced ejection fraction) ([facility] V24, [facility] V28) 01/06/2023 Overview (06/07/2024): Last Assessment & Plan: [...] 2 visits to the emergency room at [facility] for chest pain both times he was [...] has side effects from adenosine Atrial fibrillation ([facility] V24, [facility] V28) 1 Overview (06/07/2024): Last Assessment & Plan: History of atrial fibrillation with stroke. High [id number] score remains chronically anticoagulated Assessment & Plan (07/30/2024 8:19 AM EST): Orders: ECG 12 lead Coronary arteriosclerosis in citizen [place] artery 05/26 Overview (06/07/2024): Last Assessment & [...] Encounters Date Type Department Care Team Description 12/05/2024 [facility]phone [facility] [address] [place] [address] [place] [address] Eddie Granados MD Weight Gain; irregular heart rate 11/29/[address] [facility] [address] [facility] [address] [place] [address] Eddie Granados MD Med Refill (Metoprolol) 11/19/2024 Telephone [facility] [address] [place] [phone] Simone Cantrell MD Medication 11/19/2024 Telephone [facility] [address] [facility] [address] [place] [address] Eddie Granados MD high pulse (High pulse ) 10/11/2024 Telephone [facility] [address] [place] [address] Eddie Granados MD Med Refill (Furosemide, Sprinolactone ) from Last 3 Months Medical History Medical History Date Comments CVA (cerebral vascular accid ent) ([facility]/HCC V24, CMS/HCC V28) DX:CVA (cerebral vascular ac cident) ([facility]) Chronic ischemic heart disease D X:Chronic ischemic [...] 07/24/2024 3:19 PM EST Plan of Treatment Upcoming Encounters Date Type Department Care Team (Late st Contact Info) Description 12/20/2024 11:30 AM EDT Office Visit [facility] [place] [phone] Michaela Anguiano NP [address] [place] [address] [address] [place] [address] 01/24/2025 9:10 AM EDT Office Visit [facility] [place] [phone] Michaela Anguiano NP [address] [place] [address] [address] [place] [address] Health Maintenance Due Date Last Done Comments COVID-19 Vaccine (#1) 1950 DTaP,Tdap,and Td Vaccines (1 - Tdap) 1965 Pneumococcal Vaccine: 50+ Ye ars (1 of 2 - PCV) 1965 Zoster Vaccines (1 of 2) 1965 RSV Immunization Adult Patie nts (1 - 1-dose 75+ series) 2021 Cholesterol Screening (Lipid Panel) 07/25/2022 Depression Screening 07/25/2022 Falls Risk Assessment 07/25/2022 Hepatitis C Screening 07/25/2022 Medicare Annual Wellness Visit 07/25/2022 Social Influencers of Health Screening 07/25/2022 Hypertension/CHF/CAD Annual BMP Blood Test 08/01/2022 Influenza Vaccine (Season Ended) 2025 HIB Vaccines Aged Out No longer eligi [...] age to complete this topic Meningococcal B Vaccine Aged Out No l onger eligible based on patient's age to complete this topic RSV Immunization Patients Un joy 20 months Aged Out No longer eligible b ased on patient's age to complete this topic Varicella Vaccines Aged Out No longer eligible based on patient's age to complete this topic Insurance [employer] [place]ICAID - [place] Care Teams Marine Welder Relationship Specialty Start Date End Date Yonathan Womack MD PCP - General 12/26/12
--- OUTSIDE RECORDS SUMMARY | 2024-12-06 00:55 | XMS_ITS | Patient Health Record ---
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 Name Role Phone Yonathan Womack Primary Care Provider Allergies Allergen (clinical drug ingredient) Drug/Non Drug Allergy documented on EMR Reaction Allergy Type Onset Date Status gadolinium (uncoded) red eues Allergy Active Adedison (uncoded) Elevated BP Allergy Active erythromycin Erythromyicin (uncoded) GI Upset Allergy Active erythromycin Ilisone (uncoded) GI Upset Allergy Active IVPDye (uncoded) Convulsion Allergy Ac tive Results Component Value Reference Range Notes Complete Blood Count Auto Di ff Reviewed date:09/17/2024 05:23:58 PM Interpretation: Performing Lab:[facility], [address] [place] [phone] Notes/Report: White Blood Count 8.3 4.8-10.8 X10*3/uL [...] 0.0-0.2 /100WBC Neutrophils Absolute Auto 4.0 2.0-8.3 x10*3/uL Imm Gran Abs Auto 0.04 0.00-0.03 X10*3/uL Lymphocytes Absolute Auto 3.6 1.2-4.9 X10*3/uL Monocytes Absolute Auto 0.6 0.1-1.2 X10*3/uL Eosinophils Absolute Auto 0.1 0.0-0.4 X10*3/uL Basophils Absolute Auto 0.0 0.0-0.2 X10*3/uL NRBC Abs Auto 0.000 0.0-0.012 X10*3/uL Comprehensive [place]. Panel Fa st Reviewed date:09/17/2024 05:21:17 PM Interpretation: Performing Lab:[facility], [address] [place] [phone] Notes/Report: Sodium 137 135-145 mmol/L Potassium 4.2 [...] Panel Reviewed date:09/17/2024 05:02:42 PM Interpretation: Performing Lab:[address] [phone] Notes/Report: Triglycerides 85 <150 mg/dL Desirable Triglyceride: [...] Total Reviewed date:09/17/2024 05:02:53 PM Interpretation: Performing Lab:[address] [phone] Notes/Report: Vitamin D 25-OH Total 66.5 >30 [...] A1c Reviewed date:09/17/2024 05:01:59 PM Interpretation: Performing Lab:[facility], [address] [place] [phone] Notes/Report: Hemoglobin A1c % 5.9 <6.0 % [...] average glucose, using the formula of the J0T-Ysoyprz Average Glucose study (ADAG), Diabetes Care, Vol.31,#8, Mar. 2007 INR WHOLE BLOOD POC Reviewed date:12/08/2023 12:39:21 PM Interpretation: Performing Lab:[facility], [address] [place] [phone] Notes/Report: PT, INR - Anti Coag Clinic 2.7 0.9-1.1 METER #: [id number] INTERNATIONAL NORMALIZED RATIO (INR) REFERENCE RANGES Reference [...] OC Reviewed date:12/08/2023 12:43:25 PM Interpretation: Performing Lab:[facility], [address] [place] [phone] Notes/Report: Prothrombin Time Whole Bld POC 32.3 11.1-13.5 sec INR WHOLE BLOOD POC Reviewed date:01/05/2024 12:45:42 PM Interpretation: Performing Lab:[facility], [address] [place] [phone] Notes/Report: PT, INR - Anti Coag Clinic 2.1 0.9-1.1 METER #: [id number] INTERNATIONAL NORMALIZED RATIO (INR) REFERENCE RANGES Reference [...] OC Reviewed date:01/05/2024 12:51:44 PM Interpretation: Performing Lab:[facility], [address] [place] [phone] Notes/Report: Prothrombin Time Whole Bld POC 25.7 11.1-13.5 sec Complete Blood Count Auto Di ff Reviewed date:01/13/2024 04:12:10 PM Interpretation: Performing Lab:[facility], [address] [place] [phone] Notes/Report: White Blood Count 7.9 4.8-10.8 X10*3/uL [...] 0.0-0.2 /100WBC Neutrophils Absolute Auto 4.3 2.0-8.3 x10*3/uL Imm Gran Abs Auto 0.03 0.00-0.03 X10*3/uL Lymphocytes Absolute Auto 2.9 1.2-4.9 X10*3/uL Monocytes Absolute Auto 0.6 0.1-1.2 X10*3/uL Eosinophils Absolute Auto 0.1 0.0-0.4 X10*3/uL Basophils Absolute Auto 0.0 0.0-0.2 X10*3/uL NRBC Abs Auto 0.000 0.0-0.012 X10*3/uL Prothrombin Time INR Reviewed date:01/13/2024 04:05:04 PM Interpretation: Performing Lab:[facility], [address] [place] [phone] Notes/Report: Prothrombin Time 23.8 11.1-13.3 SEC INTERNATIONAL [...] Time Reviewed date:01/13/2024 04:04:44 PM Interpretation: Performing Lab:[facility], [address] [place] [phone] Notes/Report: Partial Thromboplastin Time 38.4 26.0-36.8 SEC For information regarding the monitoring of direct thrombin inhibitors, please refer to Pharmacy. Liver Panel Reviewed date:01/13/2024 04:05:24 PM Interpretation: Performing Lab:[facility], [address] [place] [phone] Notes/Report: Bilirubin Total 0.8 0.0-1.0 mg/dL Bilirubin Direct 0.3 0.0-0.5 mg/dL Aspartate Amino Transferase 18 5-37 U/L Alanine Aminotransferase 16 0-40 U/L Total Protein 6.9 6.5-8.0 g/dL Albumin Level 4.0 3.5-5.0 g/dL Alkaline Phosphatase 72 39-117 U/L Basic Metabolic Panel Reviewed date:01/13/2024 04:06:37 PM Interpretation: Performing Lab:[facility], [address] [place] [phone] Notes/Report: Sodium 138 135-145 mmol/L Potassium 3.8 [...] Glomerular Filt Rate > 60 NOTE: For -Ecuadorean individuals, multiply the result by 1.210. Chronic Kidney Disease: Estimated GFR < 60 mL/min/1.73m2 Severe Kidney Disease: Estimated GFR < 15 mL/min/1.73m2 Glucose Random 131 60-115 mg/dL Calcium 9.6 8.4-10.2 mg/dL B Type Natriuretic Peptide Reviewed date:01/13/2024 04:04:32 PM Interpretation: Performing Lab:[facility], [address] [place] [phone] Notes/Report: B Type Natriuretic Peptide 246 <100 pg/mL For those patients who are being treated with Natrecor (nesiritide, recombinant BNP), BNP testing should be performed at least two hours post treatment in order to ensure that only endogenous levels of BNP are detected. 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 Posterior knee pain. COMPARISON: None available. TECHNIQUE: Ultrasound of the de ep veins is performed from the hip to the calf with compression sonograp hy and color and pulse Doppler assessment. Spectral analysis with color-flow imaging is performed. FINDINGS: There is normal veno us compression and respiratory variation and augmented flow. The visualized common femoral vein, superficial femoral vein, profunda femor al vein, popliteal vein, and the trifurcation region [...] x 0.9 x 2.4 cm. 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[employer]: [place] INR WHOLE BLOOD POC Reviewed date:02/02/2024 11:56:26 AM Interpretation: Performing Lab:[facility], [address] [place] [phone] Notes/Report: PT, INR - Anti Coag Clinic 2.0 0.9-1.1 METER #: [id number] INTERNATIONAL NORMALIZED RATIO (INR) REFERENCE RANGES Reference [...] OC Reviewed date:02/02/2024 11:56:57 AM Interpretation: Performing Lab:[facility], [address] [place] [phone] Notes/Report: Prothrombin Time Whole Bld POC 24.3 11.1-13.5 sec INR WHOLE BLOOD POC Reviewed date:02/21/2024 12:32:10 PM Interpretation: Performing Lab:[facility], [address] [place] [phone] Notes/Report: PT, INR - Anti Coag Clinic 2.6 0.9-1.1 METER #: [id number] INTERNATIONAL NORMALIZED RATIO (INR) REFERENCE RANGES Reference [...] OC Reviewed date:02/21/2024 12:33:44 PM Interpretation: Performing Lab:[facility], [address] [place] [phone] Notes/Report: Prothrombin Time Whole Bld POC 30.9 11.1-13.5 sec INR WHOLE BLOOD POC Reviewed date:03/20/2024 12:25:26 PM Interpretation: Performing Lab:[facility], [address] [place] [phone] Notes/Report: PT, INR - Anti Coag Clinic 2.2 0.9-1.1 METER #: [id number] INTERNATIONAL NORMALIZED RATIO (INR) REFERENCE RANGES Reference [...] OC Reviewed date:03/20/2024 12:37:24 PM Interpretation: Performing Lab:[facility], [address] [place] [phone] Notes/Report: Prothrombin Time Whole Bld POC 26.6 11.1-13.5 sec INR WHOLE BLOOD POC Reviewed date:04/17/2024 12:02:54 PM Interpretation: Performing Lab:[facility], [address] [place] [phone] Notes/Report: PT, INR - Anti Coag Clinic 2.1 0.9-1.1 METER #: [id number] INTERNATIONAL NORMALIZED RATIO (INR) REFERENCE RANGES Reference [...] Prothrombin Time Whole Bld P OC Reviewed date:04/17/2024 11:58:45 AM Interpretation: Performing Lab:[facility], [address] [place] [phone] Notes/Report: Prothrombin Time Whole Bld POC 25.0 11.1-13.5 sec INR WHOLE BLOOD POC Reviewed date:05/15/2024 11:36:59 AM Interpretation: Performing Lab:[facility], [address] [place] [phone] Notes/Report: PT, INR - Anti Coag Clinic 1.8 0.9-1.1 METER #: [id number] INTERNATIONAL NORMALIZED RATIO (INR) REFERENCE RANGES Reference [...] Prothrombin Time Whole Bld P OC Reviewed date:05/15/2024 10:55:33 AM Interpretation: Performing Lab:[facility], [address] [place] [phone] Notes/Report: Prothrombin Time Whole Bld POC 21.1 11.1-13.5 sec INR WHOLE BLOOD POC Reviewed date:05/29/2024 10:08:18 AM Interpretation: Performing Lab:[facility], [address] [place] [phone] Notes/Report: PT, INR - Anti Coag Clinic 2.0 0.9-1.1 METER #: [id number] INTERNATIONAL NORMALIZED RATIO (INR) REFERENCE RANGES Reference [...] Prothrombin Time Whole Bld P OC Reviewed date:05/29/2024 10:08:25 AM Interpretation: Performing Lab:[facility], [address] [place] [phone] Notes/Report: Prothrombin Time Whole Bld POC 24.0 11.1-13.5 sec INR WHOLE BLOOD POC Reviewed date:06/26/2024 10:55:58 AM Interpretation: Performing Lab:[facility], [address] [place] [phone] Notes/Report: PT, INR - Anti Coag Clinic 2.6 0.9-1.1 METER #: [id number] INTERNATIONAL NORMALIZED RATIO (INR) REFERENCE RANGES Reference [...] Prothrombin Time Whole Bld P OC Reviewed date:06/26/2024 10:55:20 AM Interpretation: Performing Lab:[facility], [address] [place] [phone] Notes/Report: Prothrombin Time Whole Bld POC 31.3 11.1-13.5 sec INR WHOLE BLOOD POC Reviewed date:07/24/2024 12:43:30 PM Interpretation: Performing Lab:[facility], [address] [place] [phone] Notes/Report: PT, INR - Anti Coag Clinic 2.7 0.9-1.1 METER #: [id number] INTERNATIONAL NORMALIZED RATIO (INR) REFERENCE RANGES Reference [...] Prothrombin Time Whole Bld P OC Reviewed date:07/24/2024 12:43:38 PM Interpretation: Performing Lab:[facility], [address] [place] [phone] Notes/Report: Prothrombin Time Whole Bld POC 32.5 11.1-13.5 sec INR WHOLE BLOOD POC Reviewed date:08/23/2024 12:31:58 PM Interpretation: Performing Lab:[facility], [address] [place] [phone] Notes/Report: PT, INR - Anti Coag Clinic 2.6 0.9-1.1 METER #: [id number] INTERNATIONAL NORMALIZED RATIO (INR) REFERENCE RANGES Reference [...] Prothrombin Time Whole Bld P OC Reviewed date:08/23/2024 12:31:49 PM Interpretation: Performing Lab:[facility], [address] [place] [phone] Notes/Report: Prothrombin Time Whole Bld POC 31.7 11.1-13.5 sec PSA,Total (Free>4and<10) Reviewed date:09/17/2024 05:00:46 PM Interpretation: Performing Lab:[facility], [address] [place] [phone] Notes/Report: PSA,Total (Free>4and<10) 0.21 0.00-4.00 ng/mL A Free PSA was not [...] Rahman Alinity i Chemiluminescent Microparticle Immunoassay (CMIA) INR WHOLE BLOOD POC Reviewed date:09/20/2024 11:51:44 AM Interpretation: Performing Lab:[facility], [address] [place] [phone] Notes/Report: PT, INR - Anti Coag Clinic 2.2 0.9-1.1 METER #: [id number] INTERNATIONAL NORMALIZED RATIO (INR) REFERENCE RANGES Reference [...] Prothrombin Time Whole Bld P OC Reviewed date:09/20/2024 12:12:38 PM Interpretation: Performing Lab:[facility], [address] [place] [phone] Notes/Report: Prothrombin Time Whole Bld POC 26.6 11.1-13.5 sec INR WHOLE BLOOD POC Reviewed date:10/18/2024 12:44:55 PM Interpretation: Performing Lab:[facility], [address] [place] [phone] Notes/Report: PT, INR - Anti Coag Clinic 2.9 0.9-1.1 METER #: [id number] INTERNATIONAL NORMALIZED RATIO (INR) REFERENCE RANGES Reference [...] Prothrombin Time Whole Bld P OC Reviewed date:10/18/2024 12:44:46 PM Interpretation: Performing Lab:[facility], [address] [place] [phone] Notes/Report: Prothrombin Time Whole Bld POC 34.6 11.1-13.5 sec US renal BI Reviewed date:11/13/2024 12:24:24 PM Interpretation: Performing Lab: Notes/Report: [address] [address] Ultrasound Report Signed Patient: Steven Tiwari MR#: [id number] : 1945 Acct:[id number] Age/Sex: 79 / M ADM Date: 11/12/24 Loc: HO.US Attending Dr: Yonathan Womack MD Ordering Physician: Yonathan Womack MD Date of Service: 11/12/24 Procedure(s): US renal BI Accession Number(s): [id number] cc: Yonathan Womack MD CLINICAL HISTORY: Disorders of adrenal gland US RENAL Comparison: US/AR/SR - US ABDOMEN COMPLETE - 10/06/23 08:38 EST Findings: The right kidney measures 11.4 cm in length. Renal cortical thickness and echotexture are within normal limits. No hydronephrosis or shadowing calculus. There are 2 exophytic cysts in the midpole measure 1.4 cm and 1.0 cm. At least 1 of the cysts was seen on prior study. The left kidney measures 13.4 cm in length. The upper pole is not well-visualized, obscured by bowel gas. Mild diffuse renal cortical thinning with increased cortical echoes can be seen with medical renal disease. No hydronephrosis. No definite shadowing calculus or cortical mass lesion. IMPRESSION: 1. No right hydronephrosis. No sonographic evidence for nephrolithiasis. Small cysts. 2. Limited assessment of the left kidney with no obvious hydronephrosis. Mild cortical thinning with increased cortical echoes can be seen with medical renal disease. 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 [address] Ultrasound Report Signed Patient: Steven Tiwari MR#: [id number] : 1945 Acct:[id number] Age/Sex: 79 / M ADM Date: 11/12/24 Loc: HO.US Attending Dr: Yonathan Womack MD Ordering Physician: Yonathan Womack MD Date of Service: 11/12/24 Procedure(s): US evelyne Aranda Accession Number(s): [id number] cc: Yonathan Womack MD CLINICAL HISTORY: Disorders of adrenal gland US RENAL Comparison: US/AR/SR - US ABDOMEN COMPLETE - 10/06/23 08:38 EST Findings: The right kidney measures 11.4 cm in length. Renal cortical thickness and echotexture are with in normal limits. No hydronephrosis or shadowing calculus. There are 2 exophytic cysts in the midpole measure 1.4 cm and 1.0 cm. At least 1 o f the cysts was seen on prior study. The left kidney measures 13.4 cm in length. The upper pole is not well-visualized, obscured by bowel gas. Mild diffuse renal cortical thinning with increased cortical echoes can be seen with medical renal disease. No hydronephrosis. No definite shadowing calculus or cortical mass lesion. IMPRESSION: 1. No right hydronephrosis. No sonographic evidence for nephrolithiasis. Small cysts. 2. Limited assessmen t of the left kidney with no obvious hydronephrosis. Mild cortical thinni ng with increased cortical echoes can be seen with medical renal disease. 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 POC Reviewed date:11/19/2024 12:19:08 PM Interpretation: Performing Lab:[facility], [address] [place] [phone] Notes/Report: PT, INR - Anti Coag Clinic 2.7 0.9-1.1 METER #: [id number] INTERNATIONAL NORMALIZED RATIO (INR) REFERENCE RANGES Reference [...] Prothrombin Time Whole Bld P OC Reviewed date:11/19/2024 12:18:23 PM Interpretation: Performing Lab:[facility], [address] [place] [phone] Notes/Report: Prothrombin Time Whole Bld POC 32.8 11.1-13.5 sec Reason For Referral Reason pain in left knee Diagnosis 1 Pain in left knee (M 25.562) Referral Organization Yonathan Womack MD Referring Provider First Name Yonathan Referring Provider Last Name Shanta Referring Provider Speciality Internal M edicine Referred Provider Lazaro Weinberg Referred Provider Specialty Orthopedic S urgery General Notes Otilia Nova 11:11:36 AM EDT > patient is aware of Nafisa sauceda Patti A 07/17/2024 12:18:37 PM EST > NOTES RECD Referral Priority Routine Referral Appointment Date 03/22/2024 Reason right upper quadrant pain Diagnosis 1 Right upper quadrant pain (R10.11) Referral Organization Yonathan Womack MD Referring Provider First Name Yonathan Referring Provider Last Name Shanta Referring Provider Speciality Internal M edicine Referred Provider Simone Mesa Referred Provider Specialty Surgery General Notes Otilia Nova 09:52:59 AM EST > info faxed, Otilia Nova 06/25/2024 10:00:44 AM EST > mail info to patient Referral Priority Routine Referral Appointment Date 07/06/2024 Reason please eval and jing t for [...] PM >Jena CANO isn't under contact with [facility] info faxed to Avtar Gonzales Annette 11/02/2024 11:22:49 AM > was told to refax Avtar Annette 11/05/2024 01:12:28 PM > [facility] Patti A 11/06/2024 09:12:42 AM >MR TIWARI ACCEPTED BY [facility]INT[facility] CANO FOR PT BEGINNING 11/07 , SHERINE AT [phone] #2 IF ANY QUESTIONS Referral Priority Routine Referral Appointment Date 11/07/2024 Medications Medication SIG (Take, Route, Frequency, Duration) Notes Start Date End Date Status Triamcinolone Acetonide 0.1 % 1 application Externally Once a day for 30 days 07/23/2021 Active Simvastatin 40 MG TAKE 1/2 TABLET BY MOUTH EVERY EVENING Active Co Q 10 100 MG 1 capsule with a indy l Orally Once a day for 30 day(s) Active Imodium A-D 2 MG 1 tablet as needed Orally Four times a day Not-Taking Triamcinolone Acetonide 0.5 % 1 application to affected area Externally Twice a day for 30 days 10/03/2014 Not-Taking Furosemide 20 MG TAKE 2TABLET BY MOUT H EVERY DAY Active Tylenol Extra Strength 500 MG 1/2 tablet Orally every 6 hrs Not-Taking Nitrostat 0.4 MG as directed Sublingu al every 5 mins times 3 for 30 days 11/30/2016 Not-Taking LORazepam 0.5 MG TAKE 1 TABLET BY CASSIUS TH EVERY DAY NEEDED Orally Once a day for 30 days 09/04/2024 Active Metoprolol Succinate 25 MG 1 capsule Ora lly Once a day Active FreeStyle Lite Test - TEST BLOOD SUGAR O NCE EVERY DAY for 50 Active FreeStyle Lancets - USE TO CHECK BLOOD SUGAR ONCE A DAY for 90 Active Entresto 24-26 MG 1 tablet Orally Twic e a day Active Spironolactone 25 MG 1 tablet Orally Active Omeprazole 20 MG TAKE 1 CAPSULE BY MOUTH EVERY DAY 30 MINUTES BEFORE BREAKFAST Active Warfarin Sodium 2.5 MG TAKE 3 TABLETS BY MOUTH 6 DAYS A WEEK AND 2 TABLETS BY MOUTH 1 DAY A WEEK Active Immunizations Vaccine Route Administration Date Status Comme nts [...] Refused Influenza High Dose Unknown 05/19/2021 Refused Influenza High Dose Unknown 05/21/2024 Refused Social History Tobacco Use: Social History Observation Description Date Details (start date - stop date) Former Smoker NA - NA Tobacco Use/Smoking Question Answer Notes Patient is a former smoker How long has it been since y ou last smoked? > 10 years Additional Findings: Tobacco Non-User Fo rmer smoker, currently using no form of tobacco Alcohol Screen Question Answer Notes Did you have a drink containing alcohol in the p ast year? No Points 0 Interpretation Negative Problems Problem Type SNOMED Code ICD Code Onset Dates Problem Status W/U Status Risk Notes Problem Panic attack (651357867) Panic attack (300.01) Active confirmed Problem Cardiomyopathy (04353684) Cardiomyopathy (425.4) Active confirmed Problem 416549361 Unspecified asth ma, uncomplicated (J45.909) Active confirmed Problem 22194750 Restless leg syn drome (G25.81) Active confirmed Problem Carotid artery disease (016842847) Carotid artery disease (I77.9) Active confirmed Problem 15889577 Vitamin D defici ency (E55.9) Active confirmed Problem 44169668 Anxiety (F41.9) Active confirmed Problem Hypomagnesemia (735582570) Hypomagnesemia (E83.42) Active confirmed Problem 84305696 Other chronic pa in (G89.29) Active confirmed Problem 1231202 Diverticulitis o f large intestine without perforation or abscess with bleeding (K57.33) Active confirmed Problem 994065595 Prostate cancer (C61) Active confirme d Problem 9874727 Prediabetes (R73.09) Active confirmed Problem 685559185 Low HDL (under 4 0) (E78.6) Active confirmed Problem 01443163 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) Active confirmed Problem 153883654 Cervical disc di sease (M50.90) Active confirmed Problem 86683043 Intrinsic eczema (L20.84) Active confirmed Problem 270570546 Gall stones (K80.20) Active confirmed Problem 771185203 History of prost ate cancer (Z85.46) Active confirmed Problem 365940244 Kidney mass (N28.89) Active confirmed Problem 11330072 Dysthymia (F34.1) Active confirmed Problem 848521726 Anticoagulant long-term use (Z79.01) Active confirmed Problem 827720695 Nonalcoholic hepatosteatosis (K76.0) Active confirmed Problem 620555478 History of myoca rdial infarction (I25.2) Active confirmed Problem 59106222 Reflux gastritis (K29.60) Active confirmed Problem 95895776 Sleep apnea, unspecified type (G47.30) Active confirmed Problem 954460953 Acute on chronic systolic congestive heart failure (I50.23) Active confirmed Problem 752533250 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) Active confirmed Problem 633431189 Benign prostatic hyperplasia with lower urinary tract symptoms (N40.1) Active confirmed Problem 152283495 Pure hypercholesterolemia (E78.00) Active confirmed Problem Abnormal gait (59414957) Abnormal gait (R26.9) Active confirmed Problem 7855017 Low calcium leve ls (E83.51) Active confirmed Problem 374892052 Abnormal CT scan , kidney (R93.429) Active confirmed Problem 217490703 On bridging jing tment with lovenox (Z79.01) Active confirmed Problem 229748430 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) Active confirmed Problem 672910240 Atrial fibrillat ion, chronic (I48.20) Active confirmed Problem 727436710 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 Vital Signs Blood pressure diastolic 60 mm Hg 10/25/2024 Height 69 in 10/25/2024 Blood pressure systolic 102 mm Hg 10/25/2024 Weight 209 lbs 10/25/2024 BMI 30.86 kg/m2 10/25/2024 Encounters Encounter Location Date Provider Diagnosis Yonathan Womack MD [address] [place] [address] [id number] 09/17/2024 Yonathan Womack Blood tests for rout ine general physical examination Z00.00 ; Prediabetes R73.09 ; Pure hypercholesterolemia E78.00 ; Prostate cancer C61 ; Vitamin D deficiency E55.9 and Acute on chronic systolic congestive heart failure I50.23 Yonathan Womack MD [address] [place] [address] [id number] 01/19/2024 Yonathan Womack Synovial cyst of lef t popliteal space M71.22 and Acute on chronic systolic congestive heart failure I50.23 Yonathan Womack MD [address] [place] [address] [id number] 02/21/2024 Yonathan Munguiaardipatrick Pain in left knee M2 5.562 and Other chronic pain G89.29 Yonathan Womack MD [address] [place] [address] [id number] 05/21/2024 Yonathan Womack Acute on chronic sys tolic congestive heart failure I50.23 Yonathan Womack MD [address] [place] [address] [id number] 06/25/2024 Yonathan Womack Right upper quadrant pain R10.11 Yonathan Womack MD [address] [place] [address] [id number] 07/26/2024 Yonathan Womack Acute on chronic sys tolic congestive heart failure I50.23 Yonathan Womack MD [address] [place] [address] [id number] 09/21/2024 Yonathan Womack Elevated BUN R79.9 ; Annual physical exam Z00.00 ; Nonalcoholic hepatosteatosis K76.0 ; Prediabetes R73.09 ; Atrial fibrillation, chronic I48.20 ; Anticoagulant long-term use Z79.01 ; Acute on chronic systolic congestive heart failure I50.23 ; Reflux gastritis K29.60 and Depression screening Z13.31 Yonathan Womack MD [address] [place] [address] [id number] 10/25/2024 Yonathan Womack Shoulder pain M25.51 9 and Abnormal gait R26.9 Yonathan Womack MD [address] [place] [address] [id number] 11/05/2024 Yonathan Womack MD [address] [place] [address] [id number] 12/13/2023 Yonathan Womack MD [address] [place] [address] [id number] 01/24/2024 Yonathan Womack MD [address] [place] [address] [id number] 03/26/2024 Yonathan Womack MD [address] [place] [address] [id number] 04/10/2024 Yonathan Womack MD [address] [place] [address] [id number] 04/26/2024 Yonathan Womack MD [address] [place] [address] [id number] 05/03/2024 Yonathan Womack MD [address] [place] [address] [id number] 07/24/2024 Yonathan Womack MD [address] [place] [address] [id number] 09/04/2024 Yonathan Womack MD [address] [place] [address] [id number] 10/15/2024 Yonathan Womack MD [address] [place] [address] [id number] 10/16/2024 Yonathan Womack Assessments Encounter Date Diagnosis (ICD Code) Assessment Notes Treatment Notes Treatment Clinical Notes Section Notes 09/17/2024 Blood tests for routine general physical examination (ICD-10 - Z00.00) 01/19/2024 Synovial cyst of lef t popliteal space (ICD-10 - M71.22) possibly ruptured . will observe 01/19/2024 Acute on chronic systolic congestive heart failure (ICD-10 - I50.23) need notes from dr lisa from last week/ request made by phone to dr [facility] office med records 02/21/2024 Pain in left knee (ICD-10 - M25.562) needs wheelchair. is getting through [facility]. also needs medline 300 which is a pad because he doesn't have control of urine/ make referral to [facility] 02/21/2024 Other chronic pain (ICD-10 - G89.29) 05/21/2024 Acute on chronic systolic congestive heart failure (ICD-10 - I50.23) review notes from dr lisa from last visit/has had recent extensive evaluations by dr lisa and he says that he may need a pacer defibrillato/ REQUESTED RECORDS FROM CARDIOLOGY. patient concerned about the defibrillator and reasons for that. have explained that if his EF is less that 30 that he has a risk of sudden . will obtain the records from dr carrera have gotten them and reviewd them and he is going to go to [employer] to see what need to be done 06/25/2024 Right upper quadrant pain (ICD-10 - R10.11) referral to dr mckoy 07/26/2024 Acute on chronic systolic congestive heart [...] spent reviewing documentation and counseling the patient. 09/21/2024 Elevated BUN (ICD-10 - R79.9) will continue to monitor 09/21/2024 Annual physical exam (ICD-10 - Z00.00) labs reviewed and discussed with patient 10/25/2024 Shoulder pain (ICD-1 0 - M25.519) neeeds physical therapy and getting out of house is almost impossible due to his previous stroke 10/25/2024 Abnormal gait (ICD-1 0 - R26.9) needs physical therapy 09/17/2024 Prediabetes (ICD-10 - R73.09) 09/21/2024 Nonalcoholic hepatosteatosis (ICD-10 - K76.0) good lft's, will contonue to monitor 09/17/2024 Pure hypercholesterolemia (ICD-10 - E78.00) 09/21/2024 Prediabetes (ICD-10 - R73.09) good a1c, no need for medication at this time 09/17/2024 Prostate cancer (ICD-10 - C61) 09/21/2024 Atrial fibrillation, chronic (ICD-10 - I48.20) well controlled, will contonue current regiment 09/17/2024 Vitamin D deficiency (ICD-10 - E55.9) 09/21/2024 Anticoagulant long-term use (ICD-10 - Z79.01) doing well on coumadin, will continue 09/17/2024 Acute on chronic systolic congestive heart failure (ICD-10 - I50.23) 09/21/2024 Acute on chronic systolic congestive heart failure (ICD-10 - I50.23) stable, will contoinue curren regiment 09/21/2024 Reflux gastritis (ICD-10 - K29.60) doing well, will contoinue current regiment 09/21/2024 Depression screening (ICD-10 - Z13.31) negative screen 05/21/2024 Other Total time spen t on the date of the encounter is 35 minutes including both face to face time spent and time spent reviewing documentation, and counseling the patient. Plan Of Treatment Pending Test Test Name Order Date Electrocardiogram (EKG) 06/25/2024 Electrocardiogram (EKG) 05/26/2017 Electrocardiogram (EKG) 06/29/2018 Electrocardiogram (EKG) 04/15/2016 MRI CERVICAL SPINE NO CONTRAST NUC WHOLE BODY SCAN BONE 09/14/2019 US ABD 01/23/2021 US ABD 09/20/2023 PSA Free and Total 09/17/2024 Microalbumin, Random 09/17/2024 CT chest wo con 04/22/2022 NM bone scan whole body 12/30/2022 US abdomen complete 02/11/2022 US abdomen complete 03/12/2021 UA ClnCatch+Micro w/rflx Cult 09/17/2024 Future Test Test Name Order Date US RENAL BILATERAL 10/20/2024 Next Appt Details Provider Name:Yonathan Pan ier, 12/21/2024 07:45:00 AM, [address], [address], [place], [place], [phone], Provider Name:Yonathan Pan ier, 12/28/2024 10:15:00 AM, [address], [address], [place], [place], [id number], Provider Name:Yonathan Pan ier, 03/21/2025 07:00:00 AM, [address], [place], [phone], Provider Name:Yonathan Pan ier, 09/17/2025 07:45:00 AM, [address] [place] [address], Suite [facility], [place], [place], [phone], Provider Name:Yonathan Pan ier, 09/24/2025 01:00:00 PM, [address] [place] [address], [address], [place], [place], [phone], Provider Name:Yonathan Pan ier, 03/28/2026 10:00:00 AM, [address] [place] [address], [address], [place], [place], [id number], Insurance Providers Payer Name Payer Address Payer Phone Subscriber Number Group Number Insured Name Patient Relationship to Insured Coverage Start Date Coverage End Date [facility] MEDICARE ADVANTAGE PLAN ONE [facility] [address] [place] [id number] STEVEN TIWARI Self - patient is the insured [facility] [address] [place] [address] [id number] STEVEN TIWRAI Self - patient is the insured Medical (General) History Medical History History ICD Code cerebrovascular accident 2006 refuses a stress test due to adverse yenny nt in the past. 05/30/2013 - colonoscopy due in 3 years. refuses to have another 2016
[2024-12-06 01:48] LABS: Appearance Urine Clear; Color Urine Yellow; Glucose Urine UA Negative (Negative); Leukocyte Esterase Urine Negative (Negative); Nitrite Urine Negative (Negative); UMIC TRIGGER UACC YES; Urine Blood Trace (Negative); Urine Ketones Negative (Negative); Urine Protein Negative (Neg-Trace)
[2024-12-06 01:53] LABS: Bacteria Urine None Seen (None Seen); Hyaline Casts Urine 0-2 /LPF (0-2); RBC Urine 0-2 /HPF (0-2); Squamous Epithelial Cell Urine 0-2 /HPF (0-2); WBC Urine 0-5 /HPF (0-5)
--- NOTE | 2024-12-06 02:06 | ED.GENADULT ---
HPI - General Adult General Chief complaint: Dyspnea Stated complaint: Diff breathing, nausea x1 week Time Seen by Provider: 12/06/24 02:06 History of Present Illness ED Provider: Mandy AMATO narrative: The patient is a 79-year-old male with a history of atrial fibrillation on warfarin, he also has a history of congestive heart failure in his on furosemide. He says that over the past week he has had a gain in weight and he has had worsening breathing problems over the last 3 or 4 days. He has been in touch with his outer diameter technician, Dr. Mustafa, who yesterday doubled his furosemide from 20 mg b.i.d. to 40 mg b.i.d.. Apparently the patient was also having episodes of rapid heart rates and so the patient's metoprolol was also increased. The patient says he has slept very poorly over the last few days because of difficulty breathing and tonight he says he felt so worn out he called an ambulance and came to the hospital. No chest pain. No fever, sweats, chills. Related Data Home Medications ?Medication ?Instructions ?Recorded ?Confirmed lorazepam 0.5 mg tablet 0.5 mg PO BID 11/14/20 11/19/24 omeprazole 20 mg capsule,delayed 20 mg PO DAILY@0630 11/14/20 11/19/24 release coenzyme Q10 100 mg capsule 100 mg PO DAILY 04/14/21 11/19/24 (CoQ-10) carboxymethylcellulose sodium 0.5 1 drp ophthalmic (eye) BID 11/30/22 11/19/24 % eye drops (Refresh Tears) warfarin 2.5 mg tablet 2.5 mg PO .COMPLEX 12/02/22 11/19/24 spironolactone 25 mg tablet 25 mg PO DAILY 05/19/23 11/19/24 furosemide 20 mg tablet 40 mg PO DAILY 05/15/24 11/19/24 metoprolol succinate 25 mg mg PO DAILY 09/20/24 11/19/24 tablet,extended release 24 hr simvastatin 20 mg tablet mg PO 11/19/24 11/19/24 Previous Rx's ?Medication ?Instructions ?Recorded sacubitril 24 mg-valsartan 26 mg 1 tab PO BID #60 tabs 12/01/22 tablet (Entresto) Allergies Allergy/AdvReac Type Severity Reaction Status Date / Time adenosine Allergy Severe cardiac, Verified 12/05/24 22:59 elevated BP, Stroke Gadolinium-Containing Allergy Severe red eyes Verified 12/05/24 22:59 Contrast Medi Iodinated Contrast Media Allergy Severe Seizure Verified 12/05/24 22:59 [CONTRAST, IV] carvedilol Allergy Intermediate disorientat Verified 12/05/24 22:59 ion erythromycin base AdvReac Unknown Gut Verified 12/05/24 22:59 pain , Abdominal Pain, GI upset Review of Systems Review of Systems: Yes all other systems are reviewed and are negative [facility] Past Medical History Medical History Anxiety Myocardial infarct, old CHF (congestive heart failure) CVA (cerebral vascular accident) A-fib Surgical History History of appendectomy Social History Social History Household Members: None Housing: House Do you presently have visiting nurse or other home services: Yes Alcohol intake: never Patient Tobacco Use Status: Never used Tobacco service: Yes Current occupational status: disabled Physical Exam ED Vital Signs: Vital Signs - 24 hr 12/05/24 23:00 12/06/24 03:18 12/06/24 04:17 Temperature 97.7 F Pulse Rate 103 H 85 Respiratory Rate 20 Blood Pressure 111/74 99/55 L 112/71 Pulse Oximetry 93 Oxygen Delivery Method Room Air 12/06/24 06:22 Temperature 97.8 F Pulse Rate 78 Respiratory Rate 18 Blood Pressure 108/75 Pulse Oximetry 94 Oxygen Delivery Method Room Air BMI result Body Mass Index 32.1 Const Other: The patient is an older man who was awake and alert. He looks quite chronically ill, but he did not appear in obvious respiratory distress or obviously uncomfortable. He was pleasant and cooperative. HENMT Other: Face is symmetrical, mucous membranes moist Eyes General: appearance normal, both eyes and all related structures Visual Salas: normal visual salas by confrontation Conjunctivae: conjunctivae normal Sclerae: sclerae normal Pupils: Equal, round and reactive pupils present EOM: EOMs intact bilaterally Neck Other: The patient is neck was somewhat thickened I could not appreciate the presence or absence of JVD Resp Other: I felt there were crackles at the bases bilaterally. Cardio Rate: regular rate Rhythm: regular rhythm Heart sounds: S1 normal heart sound present GI Other: Abdomen is soft and nontender Skin Other: Skin is pale and dry Neuro Other: The patient is awake and alert with a normal mental status. Cranial nerves are intact. He seems to have some chronic weakness of the right arm from a previous stroke. He seemed to have reasonably steady gait. Cranial nerves: Yes Equal, round and reactive pupils present Extrem Other: Mild ankle edema. Medications Administered Discontinued Medications Generic Name Dose Route Start Last Admin Trade Name Johnny PRN Reason Stop Dose Admin Furosemide 80 mg 12/06/24 02:58 12/06/24 03:18 Furosemide 100 Mg/10 Ml Vial IVPUSH 12/06/24 02:59 80 mg ONCE ONE Administration Protocol Medical Decision Making Medical Decision Making [facility] Narrative: The patient is 71-year-old male with a history of atrial fibrillation on warfarin who also has a history of congestive heart failure and is on furosemide. He presents for worsening shortness of breath on exertion. Just a day or 2 ago his outer diameter technician had apparently doubled his furosemide. He comes to the emergency room because he has continued to have shortness of breath on exertion and orthopnea. He was given 80 mg of IV furosemide and felt considerably better. His physical exam is consistent with some mild degree of exacerbation of congestive heart failure as he has crackles at the bases but he does not have overt respiratory distress. His BNP is higher today than previously. Other labs are nondiagnostic. The patient was given 80 mg of IV furosemide with a good urine output. He felt considerably better. Since his oxygen saturations were adequate during his whole time in the emergency room I thought the outpatient management was reasonable. He will be discharged to continue his new higher dose of furosemide and to follow up with his PCP and his outer diameter technician Lab Data 12/05/24 23:14 12/05/24 23:14 Labs: Lab Results 12/05/24 12/06/24 12/06/24 Range/Units 23:14 01:32 05:46 WBC 11.3 H (4.8-10.8) X10*3/uL RBC 4.66 (4.60-5.80) X10*6/uL Hgb 14.1 (14.0-18.0) g/dl Hct 41.0 L (42.0-52.0) % MCV 88.0 (80.0-98.0) fL MCH 30.3 (27.0-33.0) pg MCHC 34.4 (31.0-36.0) g/dl RDW 13.6 (11.0-16.0) % Plt Count 139 L (160-400) X10*3/uL MPV 10.8 (9.4-12.4) fL Immature Gran % (Auto) 0.5 H (0.0-0.4) % Neut % (Auto) 70.8 (45-73) % Lymph % (Auto) 22.2 (20-40) % Arthur % (Auto) 5.6 (2-11) % Eos % (Auto) 0.5 (0-4) % Baso % (Auto) 0.4 (0-2) % Lymph # (Auto) 2.5 (1.2-4.9) X10*3/uL Arthur # (Auto) 0.6 (0.1-1.2) X10*3/uL Eos # (Auto) 0.1 (0.0-0.4) X10*3/uL Baso # (Auto) 0.0 (0.0-0.2) X10*3/uL Abs Immat Gran (auto) 0.06 H (0.00-0.03) X10*3/uL Absolute Neuts (auto) 8.0 (2.0-8.3) x10*3/uL Absolute Nucleated RBC 0.000 (0.0-0.012) X10*3/uL Nucleated RBC % (auto) 0.0 (0.0-0.2) /100WBC PT 42.1 H (10.9-12.4) SEC INR 3.6 H (0.9-1.1) Sodium 138 (135-145) mmol/L Potassium 3.3 D (3.3-5.1) mmol/L Chloride 105 (96-108) mmol/L Carbon Dioxide 23 (22-29) mmol/L Anion Gap 13 (12-20) BUN 28 H (9-16) mg/dL Creatinine 1.11 (0.5-1.4) mg/dL Estim Creat Clear Calc 61.5 Estimated GFR > 60 Random Glucose 154 H (60-115) mg/dL Calcium 8.9 (8.4-10.2) mg/dL Total Bilirubin 0.6 (0.0-1.0) mg/dL AST 24 (5-37) U/L ALT 19 (0-40) U/L Alkaline Phosphatase 89 (39-117) U/L Troponin I High Sens 34.4 (<3.5-35.0) ng/L C-Reactive Protein 0.45 (< or = 0.50) mg/dL B-Natriuretic Peptide 1338 H (<100) pg/mL Total Protein 6.1 L (6.5-8.0) g/dL Albumin 3.7 (3.5-5.0) g/dL Urine Color Yellow Urine Appearance Clear Urine pH 6.0 (5.0-9.0) Ur Specific [place] 1.010 (1.005-1.025) Urine Protein Negative (Neg-Trace) mg/dL Urine Glucose (UA) Negative (Negative) mg/dL Urine Ketones Negative (Negative) mg/dL Urine Blood Trace H (Negative) Urine Nitrite Negative (Negative) Ur Leukocyte Esterase Negative (Negative) Urine RBC 0-2 (0-2) /HPF Urine WBC 0-5 (0-5) /HPF Ur Squamous Epith Cells 0-2 (0-2) /HPF Urine Bacteria None Seen (None Seen) Hyaline Casts 0-2 (0-2) /LPF Influenza Type A (PCR) NEGATIVE (Negative) Influenza Type B (PCR) NEGATIVE (Negative) RSV RNA Qual (PCR) NEGATIVE (Negative) SARS-CoV-2 RNA (RT-PCR) NEGATIVE (Negative) Independent Interpretation I performed an independent interpretation of an: EKG Discharge Plan Discharge Clinical Impression: Acute exacerbation of congestive heart failure Patient Disposition: Home, Self-Care Additional Instructions: Please continue your increased dose of furosemide and any other changes Dr. Mustafa recommended. Please make a follow up appointment with your outer diameter technician next week. Call today for the appointment. Return to the emergency room if you feel significantly worse. Prescriptions: No Action coenzyme Q10 [CoQ-10] 100 mg Capsule 100 mg PO DAILY carboxymethylcellulose sodium [Refresh Tears] 0.5 % Drops 1 drp OPHTHALMIC (EYE) BID Entresto 24-26 mg tablet 1 tab PO BID Qty: 60 0RF warfarin 2.5 mg tablet 2.5 mg PO .COMPLEX Protocol: Dose Management Condition: Tuesday (Week One) Dose/Route: 7.5 mg Instruction: 3 x 2.5 mg tablets Condition: Tuesday Dose/Route: 7.5 mg Instruction: 3 x 2.5 mg tablets Condition: Tuesday Dose/Route: 7.5 mg Instruction: 3 x 2.5 mg tablets Condition: Tuesday Dose/Route: 5 mg Instruction: 2 x 2.5 mg tablets Condition: Dose/Route: 7.5 mg Instruction: 3 x 2.5 mg tablets Condition: Tuesday Dose/Route: 7.5 mg Instruction: 3 x 2.5 mg tablets Condition: Tuesday Dose/Route: 7.5 mg Instruction: 3 x 2.5 mg tablets Condition: Tuesday ( Two) Dose/Route: 7.5 mg Instruction: 3 x 2.5 mg tablets Condition: Tuesday Dose/Route: 7.5 mg Instruction: 3 x 2.5 mg tablets Condition: Tuesday Dose/Route: 7.5 mg Instruction: 3 x 2.5 mg tablets Condition: Tuesday Dose/Route: 5 mg Instruction: 2 x 2.5 mg tablets Condition: Dose/Route: 7.5 mg Instruction: 3 x 2.5 mg tablets Condition: Tuesday Dose/Route: 7.5 mg Instruction: 3 x 2.5 mg tablets Condition: Tuesday Dose/Route: 7.5 mg Instruction: 3 x 2.5 mg tablets Protocol Text: Adjustment Start Date: Tuesday11/19/24 INR Value: 2.7 INR Date: 11/19/24 Recheck Date: 12/19/24 Additional Instructions: REVIEW FOOD LIST WEEKLY, EAT A MIX OF FRUITS AND VEGETABLES Rx Instructions: 5mg tuesday/ 7.5mg x 5 days; lorazepam 0.5 mg tablet 0.5 mg PO BID omeprazole 20 mg capsule,delayed release(DR/EC) 20 mg PO DAILY@0630 metoprolol succinate 25 mg tablet extended release 24 hr PO DAILY simvastatin 20 mg tablet PO spironolactone 25 mg tablet 25 mg PO DAILY furosemide 20 mg tablet 40 mg PO DAILY Referrals: Yonathan Womack MD [Physician] - (Exacerbation of congestive heart failure) Eddie Granados MD [Physician] - (Exacerbation of congestive heart failure) Interventions: ED Discharge Assessment Last Done: 12/06/24 06:22 Discharge Date/Time: 12/06/24 07:05 Print Language: Faroese
[2024-12-06 02:39] LABS: B Type Natriuretic Peptide 1338 pg/mL (<100)
[2024-12-06 02:53] LABS: C Reactive Protein 0.45 mg/dL (< or = 0.50)
[2024-12-06 03:18] VITALS: BP 99/55
[2024-12-06] MEDS: Furosemide 100 MG/10 ML VIAL 80 MG IVPUSH (03:18)
[2024-12-06 04:17] VITALS: BP 112/71; PULSE 85
[2024-12-06 06:22] VITALS: BP 108/75; PULSE 78; RESP 18; TEMP 36.6; O2SAT 94
[2024-12-06 06:28] LABS: Influenza A PCR NEGATIVE (Negative); Influenza B PCR NEGATIVE (Negative); Resp Syncy Virus RNA Qual PCR NEGATIVE (Negative); SARS COV2 PCR INHOUSE NEGATIVE (Negative)
== END 2024-12-06 07:05 | disposition home or self-care (01) ==
PROVIDERS: Emergency Provider Emergency Medicine
DX: I50.9 Heart failure, unspecified (principal); R06.02 Shortness of breath; I48.0 Paroxysmal atrial fibrillation; Z03.818 Encounter for observation for suspected exposure to other biological agents ruled out; Z79.01 Long term (current) use of anticoagulants; Z79.899 Other long term (current) drug therapy
CPT/HCPCS: 0241U; 36415; 71046; 80053; 81001; 83880; 84484; 85025; 85610; 86140; 93005; 99285; J1940

== ENCOUNTER → 2024-12-05 22:55 | Outpatient (BNV) | payer MEDICARE, MEDICAID, SELFPAY | PROVIDERS: Emergency Provider Emergency Medicine; Visit Provider Internal Medicine Cardiovascular Disease | DX: I44.0 Atrioventricular block, first degree (principal); I45.2 Bifascicular block; I49.1 Atrial premature depolarization; R00.0 Tachycardia, unspecified | CPT/HCPCS: 93010 ==

== ENCOUNTER → 2024-12-06 02:15 | Outpatient (BNV) | payer MEDICARE, MEDICAID, SELFPAY | PROVIDERS: Emergency Provider Emergency Medicine; Visit Provider Radiology Neuroradiology | DX: J98.11 Atelectasis (principal); J91.8 Pleural effusion in other conditions classified elsewhere | CPT/HCPCS: 71046 ==

== ENCOUNTER 2024-12-08 10:37 | Emergency (ER) | payer MEDICARE, MEDICAID, SELFPAY ==
--- NOTE | ~2024-12-08 | XR_ITS ---
CLINICAL HISTORY: sob 2 view chest x-ray Comparison: 12/06/2024 Findings: The lungs are clear. No significant change in cardiomediastinal silhouette. Blunted posterior costophrenic recesses as before. No acute fracture. IMPRESSION: No lung infiltrate This document has been electronically signed by: Neris Tavares MD on 12/08/2024 11:49:20
[2024-12-08 10:39] VITALS: BP 132/56; PULSE 107; O2SAT 99
[2024-12-08 10:45] VITALS: PULSE 105; RESP 16; O2SAT 97; BMI 29.7
--- NOTE | 2024-12-08 10:55 | ECG_ITS ---
Test Reason : SOB Blood Pressure : */* mmHG Vent. Rate : 97 BPM Atrial Rate : 97 BPM P-R Int : 244 ms QRS Dur : 152 ms QT Int : 374 ms P-R-T Axes : -19 -54 16 degrees QTcB Int : 474 ms Sinus rhythm with 1st degree A-V block with Premature ventricular complexes and Premature atrial complexes with Aberrant conduction Right bundle branch block Left anterior fascicular block Bifascicular block Abnormal ECG When compared with ECG of 05-Dec-2024 22:59, Aberrant conduction is now Present QT has shortened Referred By: Charisse Sanchez Electronically Signed By: ELICEO GARCIAS MD
--- NOTE | 2024-12-08 11:14 | ED.SOB ---
HPI - SOB/Dyspnea General Chief Complaint: Dyspnea Stated Complaint: SOB,95 % 1LPM PER EMS Time Seen by Provider: 12/08/24 10:40 Source: patient, EMS, RN notes reviewed and old records reviewed Mode of arrival: EMS History of Present Illness ED Provider: Charisse Sanchez PA-C HPI Narrative: 79-year-old male with a past medical history of anxiety, ID, CHF, CVA, AFib on Coumadin, presenting to the ED via EMS complaining of worsening SOB and orthopnea since 01:00AM. Was seen reports shortness of breath worse on exertion and some pedal edema.. Patient admits he was seen and treated in our ED on 12/06/2024 for similar symptoms, and recently saw his orchardist outpatient who increased his Lasix from 20 mg b.i.d. to 40 mg b.i.d. which he has been compliant with. Denies chest pain, abdominal pain, nausea, vomiting, diarrhea, fever/chills Related Data Home Medications ?Medication ?Instructions ?Recorded ?Confirmed lorazepam 0.5 mg tablet 0.5 mg PO BID 11/14/20 12/06/24 omeprazole 20 mg capsule,delayed 20 mg PO DAILY@0630 11/14/20 12/06/24 release coenzyme Q10 100 mg capsule 100 mg PO DAILY 04/14/21 12/06/24 (CoQ-10) carboxymethylcellulose sodium 0.5 1 drp ophthalmic (eye) BID 11/30/22 12/06/24 % eye drops (Refresh Tears) warfarin 2.5 mg tablet 2.5 mg PO .COMPLEX 12/02/22 12/06/24 spironolactone 25 mg tablet 25 mg PO DAILY 05/19/23 12/06/24 furosemide 20 mg tablet 40 mg PO DAILY 05/15/24 12/06/24 metoprolol succinate 25 mg mg PO DAILY 09/20/24 12/06/24 tablet,extended release 24 hr simvastatin 20 mg tablet mg PO 11/19/24 12/06/24 metoprolol succinate 50 mg 50 mg PO DAILY 12/06/24 12/06/24 tablet,extended release 24 hr Previous Rx's ?Medication ?Instructions ?Recorded sacubitril 24 mg-valsartan 26 mg 1 tab PO BID #60 tabs 12/01/22 tablet (Entresto) Allergies Allergy/AdvReac Type Severity Reaction Status Date / Time adenosine Allergy Severe cardiac, Verified 12/08/24 10:46 elevated BP, Stroke Gadolinium-Containing Allergy Severe red eyes Verified 12/08/24 10:46 Contrast Medi Iodinated Contrast Media Allergy Severe Seizure Verified 12/08/24 10:46 [CONTRAST, IV] carvedilol Allergy Intermediate disorientat Verified 12/08/24 10:46 ion erythromycin base AdvReac Unknown Gut Verified 12/08/24 10:46 pain , Abdominal Pain, GI upset Review of Systems Review of Systems: Yes all other systems are reviewed and are negative Constitutional: Constitutional: Reports as per [facility] Past Medical History Attestation statement: The following information was validated with the patient. Source: old records reviewed Medical History Anxiety Myocardial infarct, old CHF (congestive heart failure) CVA (cerebral vascular accident) A-fib Surgical History History of appendectomy Social History Social History Household Members: None Housing: House Do you presently have visiting nurse or other home services: Yes Alcohol intake: never Patient Tobacco Use Status: Never used Tobacco Advance Directives: No Advance Directives Information Provided: Yes Do you have a plan to hurt others: No Plan service: Yes Current occupational status: disabled Physical Exam Vital Signs: Vital Signs: Last Vital Signs Temp 97.9 F 12/08/24 14:41 Pulse 98 12/08/24 14:41 Resp 18 12/08/24 14:41 BP 117/79 12/08/24 14:41 Pulse Ox 97 12/08/24 14:41 O2 Del Method Room Air 12/08/24 14:41 Oxygen Flow Rate 1 12/08/24 10:45 BMI result Body Mass Index 29.7 Const: General: cooperative, healthy appearing and no acute distress Orientation/consciousness: patient oriented x3 Limitations: no limitations HEENT: Head: Yes normal to inspection and Yes atraumatic Ears: hearing grossly normal bilaterally General nose exam: Normal external nose present Face and sinus: Yes normal facial exam Eyes: General: appearance normal, both eyes and all related structures EOM: EOMs intact bilaterally Neck: Neck: Yes normal visual inspection and Yes no meningeal signs Resp: Effort & Inspection: normal respiratory effort and no respiratory distress Auscultation: clear to auscultation bilaterally, no crackles, no rales, no rhonchi and no wheezes Cardio: Rate: regular rate Heart sounds: S1 normal heart sound present and S2 normal heart sound present GI: Inspection: Yes normal to inspection Skin: Rashes: no rashes Wounds: no wounds Neuro: General: patient oriented x3, tone normal and no meningeal signs Cranial nerves: Yes CN's II-XII intact bilaterally Gait exam (Neuro): Normal gait present Extrem: Other: 1+ bilateral LE pitting edema General: Yes normal to inspection Course Course Course Narrative: -1218-- BUN chronically elevated. Troponin 47.7 > will obtain repeat, elevated priors -BNP 978 > improved from 12/05/2024 (was 1338) however more elevated than previous >> we will give 80 mg of IV Lasix in the ED -CXR unremarkable > ambulated patient with pulse ox and maintain saturation of 96% or greater on room air. -1437--repeat troponin without significant rise. Mi unlikely. Patient without any hypoxia since ED arrival, do not feel admission is necessary at this time. Safe for discharge home. Recommended continuation of higher dose of Lasix that was prescribed by orchardist. Recommended close follow-up with his orchardist and PCP. Strict return precautions discussed Results discussed with patient including worrisome signs and symptoms and strict return precautions, and when to return to the emergency department. They verbalized understanding and feel safe for discharge at this time. Medications Administered Discontinued Medications Generic Name Dose Route Start Last Admin Trade Name Johnny PRN Reason Stop Dose Admin Furosemide 80 mg 12/08/24 12:20 12/08/24 13:01 Furosemide 100 Mg/10 Ml Vial IVPUSH 12/08/24 12:21 80 mg ONCE ONE Administration Protocol Medical Decision Making Medical Decision Making [facility] Narrative: 79-year-old male with a past medical history of anxiety, ID, CHF, CVA, AFib on Coumadin, presenting to the ED via EMS complaining of worsening SOB and orthopnea since 01:00AM. Was seen reports shortness of breath worse on exertion and some pedal edema. On exam mildly tachycardic, NAD, nontoxic appearing, satting 95-97% on RA, no respiratory distress, no tachypnea, lungs CTA, 1+ bilateral LE pitting edema. Concern for CHF exacerbation vs viral illness vs pneumonia vs ACS. Low suspicion for PE/DVT as patient is anticoagulated. Unlikely dissection Plan: EKG, labs, CXR, viral testing Please refer to course for remaining clinical decision making, interpretation of labs/imaging results, and discussions with consultants and/or family members. Differential Diagnosis Differential Diagnoses: The differential diagnosis associated with the presentation includes As above Admission/Observation Consideration of admission/observation: Escalation of care including admission/observation considered Lab Data MDM Lab Attestation statement: I reviewed the patient's lab results. 12/08/24 11:36 12/08/24 11:36 Labs: Lab Results 12/08/24 12/08/24 Range/Units 11:36 14:06 WBC 8.3 (4.8-10.8) X10*3/uL RBC 4.72 (4.60-5.80) X10*6/uL Hgb 14.2 (14.0-18.0) g/dl Hct 40.7 L (42.0-52.0) % MCV 86.2 (80.0-98.0) fL MCH 30.1 (27.0-33.0) pg MCHC 34.9 (31.0-36.0) g/dl RDW 13.5 (11.0-16.0) % Plt Count 151 L (160-400) X10*3/uL MPV 10.7 (9.4-12.4) fL Immature Gran % (Auto) 0.4 (0.0-0.4) % Neut % (Auto) 61.4 (45-73) % Lymph % (Auto) 26.5 (20-40) % Dupage % (Auto) 10.4 (2-11) % Eos % (Auto) 0.7 (0-4) % Baso % (Auto) 0.6 (0-2) % Lymph # (Auto) 2.2 (1.2-4.9) X10*3/uL Dupage # (Auto) 0.9 (0.1-1.2) X10*3/uL Eos # (Auto) 0.1 (0.0-0.4) X10*3/uL Baso # (Auto) 0.1 (0.0-0.2) X10*3/uL Abs Immat Gran (auto) 0.03 (0.00-0.03) X10*3/uL Absolute Neuts (auto) 5.1 (2.0-8.3) x10*3/uL Absolute Nucleated RBC 0.000 (0.0-0.012) X10*3/uL Nucleated RBC % (auto) 0.0 (0.0-0.2) /100WBC PT 34.1 H (10.9-12.4) SEC INR 2.9 H (0.9-1.1) Sodium 137 (135-145) mmol/L Potassium 3.4 (3.3-5.1) mmol/L Chloride 104 (96-108) mmol/L Carbon Dioxide 24 (22-29) mmol/L Anion Gap 12 (12-20) BUN 25 H (9-16) mg/dL Creatinine 1.05 (0.5-1.4) mg/dL Estim Creat Clear Calc 72.7 Estimated GFR > 60 Random Glucose 116 H (60-115) mg/dL Calcium 9.2 (8.4-10.2) mg/dL Magnesium 1.6 (1.6-2.6) mg/dL Total Bilirubin 0.7 (0.0-1.0) mg/dL Direct Bilirubin 0.3 (0.0-0.5) mg/dL AST 18 (5-37) U/L ALT 16 (0-40) U/L Alkaline Phosphatase 73 (39-117) U/L Troponin I High Sens 47.7 H 57.9 H (<3.5-35.0) ng/L B-Natriuretic Peptide 978 H (<100) pg/mL Total Protein 6.3 L (6.5-8.0) g/dL Albumin 3.8 (3.5-5.0) g/dL Influenza Type A (PCR) NEGATIVE (Negative) Influenza Type B (PCR) NEGATIVE (Negative) RSV RNA Qual (PCR) NEGATIVE (Negative) SARS-CoV-2 RNA (RT-PCR) NEGATIVE (Negative) Independent Interpretation I performed an independent interpretation of an: EKG (Interpretation EKG sinus rhythm with first-degree AV block at a rate of 97 yet. QRS 152. Premature ventricular complexes no longer present when compared to prior ) and Plain X-Ray Radiology Impression Discussion of test interpretation with radiology: I have reviewed the radiologist's reading. Independent Historian Clinical information obtained from an independent historian. History obtained from or confirmed by: EMS External Record Review External record reviewed: Inpatient record, Office record, Outpatient record, Prior outpatient labs, Prior outpatient radiology, Primary care record and Outside ED record Tests considered The following testing was considered but not selected: As above Prescription Management I considered prescription management with: Other Chronic Conditions Patient?s care impacted by: Other (CHF) Social Determinants Patient?s care significantly limited by Social Determinants of Health including: Other Social Determinant of Health Discharge Plan Discharge Clinical Impression: Congestive heart failure Patient Disposition: Home, Self-Care Instructions: Heart Failure (DC) Additional Instructions: Continue home prescribed medications. Continue higher dose of Lasix at home You need to have close follow-up with your orchardist as well as PCP If your shortness of breath persists, worsens, you have chest pain, increasing swelling to your lives return to the ED Prescriptions: No Action coenzyme Q10 [CoQ-10] 100 mg Capsule 100 mg PO DAILY carboxymethylcellulose sodium [Refresh Tears] 0.5 % Drops 1 drp OPHTHALMIC (EYE) BID Entresto 24-26 mg tablet 1 tab PO BID Qty: 60 0RF warfarin 2.5 mg tablet 2.5 mg PO .COMPLEX Protocol: Dose Management Condition: Tuesday (Week One) Dose/Route: 7.5 mg Instruction: 3 x 2.5 mg tablets Condition: Tuesday Dose/Route: 7.5 mg Instruction: 3 x 2.5 mg tablets Condition: Tuesday Dose/Route: 7.5 mg Instruction: 3 x 2.5 mg tablets Condition: Tuesday Dose/Route: 5 mg Instruction: 2 x 2.5 mg tablets Condition: Dose/Route: 2.5 mg Instruction: 1 x 2.5 mg tablet Condition: Tuesday Dose/Route: 7.5 mg Instruction: 3 x 2.5 mg tablets Condition: Tuesday Dose/Route: 7.5 mg Instruction: 3 x 2.5 mg tablets Condition: Tuesday (Week Two) Dose/Route: 7.5 mg Instruction: 3 x 2.5 mg tablets Condition: Tuesday Dose/Route: 7.5 mg Instruction: 3 x 2.5 mg tablets Condition: Tuesday Dose/Route: 7.5 mg Instruction: 3 x 2.5 mg tablets Condition: Tuesday Dose/Route: 5 mg Instruction: 2 x 2.5 mg tablets Condition: Dose/Route: 7.5 mg Instruction: 3 x 2.5 mg tablets Condition: Tuesday Dose/Route: 7.5 mg Instruction: 3 x 2.5 mg tablets Condition: Tuesday Dose/Route: 7.5 mg Instruction: 3 x 2.5 mg tablets Protocol Text: Adjustment Start Date: 12/06/24 INR Value: 3.6 INR Date: 12/05/24 Recheck Date: 12/17/24 Additional Instructions: INR ER 3.6 YESTERDAY S/P CHF AND RAPID HR REVIEW FOOD LIST WEEKLY, TRY TO EAT A SERVING OF GREENS TODAY IF ABLE - DECREASE TODAY'S DOSE TO 2.5MG THEN RESUME USUAL DOSE 7.5MG DAILY AND F/U INR IN 11 DAYS ON DAY PREVIOUSLY SCHEDULED Rx Instructions: 5mg tuesday/ 7.5mg x 5 days; lorazepam 0.5 mg tablet 0.5 mg PO BID omeprazole 20 mg capsule,delayed release(DR/EC) 20 mg PO DAILY@0630 metoprolol succinate 25 mg tablet extended release 24 hr PO DAILY simvastatin 20 mg tablet PO metoprolol succinate 50 mg tablet extended release 24 hr 50 mg PO DAILY spironolactone 25 mg tablet 25 mg PO DAILY furosemide 20 mg tablet 40 mg PO DAILY Referrals: Pascual Womack MD [Primary Care Provider] - 3 days Eddie Granados MD [Physician] - 3 days Interventions: ED Discharge Assessment Last Done: 12/08/24 14:41 Print Language: Maldivian
[2024-12-08 11:25] VITALS: BP 108/72; PULSE 102; RESP 22; TEMP 36.6; O2SAT 96
--- OUTSIDE RECORDS SUMMARY | 2024-12-08 11:31 | XMS_ITS | Encounter Summary ---
Author Organization [facility] Address [address] [place] [address] Care Team Providers Care Fashion Model Name Role Phone Yonathan Womack MD Primary Care Provider Reason for Visit * Reason Onset Date Comments Weight Gain 12/05/2024 irregular heart rate 12/05/2024 Encounter Details Date Type Department Care Team (Late st Contact Info) Description 12/05/2024 Telephone [facility] [address] [place] [address] Eddie Granados MD [address] [place] [address] [address] [place], [place] [phone] Weight Gain; irregular heart rate Social History [...] this week at the lab located in [facility]. BMP ordered and faxed to [facility] lab per patient request ([phone]). Confirmation received. I scheduled patient for a [...] a low sodium diet. BP last night [id number], HR 65 bpm. This morning, he hasn't [...] nitroglycerin. Please give him a call at [phone] to advise. documented in this encounter Plan of Treatment Upcoming Encounters Date Type Department Care Team (Late st Contact Info) Description 12/20/2024 11:30 AM EDT Office Visit [facility] [address] [place] [address] [place] [phone] Michaela Anguiano NP [address] [place] [address] [place] [address] 01/24/2025 9:10 AM EDT Office Visit [facility] Dr [address] [facility] [place] [address] Michaela Anguiano NP [address] [place] [address] [address] [place] [address] Scheduled Orders Name Type Priority Associated Diagnoses Orde r Schedule Basic metabolic panel Lab Routine Atrial fibrillation, unspecified type (CMS/HCC V24, CMS/HCC V28) Expected: 12/05/2024, Expires: 12/05/2025 documented as of this encounter Visit Diagnoses Diagnosis Atrial fibrillation, unspecified type ([facility] V24, [facility] V28)- Primary documented in this encounter Care Teams Fashion Model Relationship Specialty Start Date End Date Yonathan Womack MD PCP - General 12/26/12 documented as of this encounter
--- OUTSIDE RECORDS SUMMARY | 2024-12-08 11:31 | XMS_ITS ---
Author Organization Yonathan Womack MD Address [address] [place] [phone] Care Team Providers Care Do All Operator Name Role Phone Shanta Yonathan Primary Care Provider Allergies Allergen (clinical drug [...] under contact with [facility] info faxed to [facility] CANO Annette 11/02/2024 11:22:49 AM > was told to refax [facility] Annette 11/05/2024 01:12:28 PM > was told again to refaxed referralNafisa Patti A 11/06/2024 09:12:42 AM >MR NUNEZ ACCEPTED BY [facility] FOR PT BEGINNING 11/07 , SHERINE AT [phone] #2 IF ANY QUESTIONS Referral Priority Routine [...] W/U Status Risk Notes Problem Abnormal gait ([id number]) Abnormal gait (R26.9) Active confirmed Vital Signs Blood pressure systolic 102 mm Hg 10/26/19 25 Blood pressure diastolic 60 mm Hg 025 Height 69 in 10/25/2024 Weight 209 lbs 10/25/2024 BMI 30.86 kg/m2 10/25/2024 Encounters Encounter Location Date Provider Diagnosis Yonathan Womack MD [address] [place] [address] [place] [phone] 10/25/2024 Yonathan Womack Shoulder pain M25.519 and [...] Treatment Notes Assessment Notes Shoulder pain 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 therapy apy and getting out of house is almost impossible due to his previous stroke Abnormal gait needs physical thera py Referrals Referral Date Details 10/25/2024 10/25/2024, please e sona and treat [facility] Name:Yonathan mendoza, 12/21/2024 07:45:00 AM, [address] [place] [address], [address] [place] [address], [phone], Provider Name:Yonathan mendoza, 12/28/2024 10:15:00 AM, [address] [place] [address], [address], [phone], Provider Name:Yonathan mendoza, 03/21/2025 07:00:00 AM, [address] [place] [address], [address], [phone], Provider Name:Yonathan mendoza, 09/17/2025 07:45:00 AM, [address], [address], [place], [phone], Provider Name:Yonathan Pan ier, 09/24/2025 01:00:00 PM, [address], [address], [place], [phone], Provider Name:Yonathan Pan janyr, 03/28/2026 10:00:00 AM, [address] [facility], [address], [place], [phone], Progress Notes * STEVEN NUNEZDOB: [birth year] (79 yo M)Acc No.[id number]:10/25/2024 Progress Notes Patient:?STEVEN NUNEZ Provider:?Yonathan Womack MD :1945???Age:79 Y???Sex:Male Jr e:10/25/2024 Address:[address] [place] [address] Subjective: * Chief Complaints: * ???needs referral [...] MD Date:?0 10/25/2024 Generated for Printi ng/Faaarong/eTransmitting on:?12/08/2024 11:31 AM EDT History and Physical Notes * [...]
--- OUTSIDE RECORDS SUMMARY | 2024-12-08 11:32 | XMS_ITS | Patient Health Record ---
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 Panel Fa st Reviewed date:09/17/2024 05:21:17 PM Interpretation: Performing Lab:[facility], [address] [place] [address] Notes/Report: Sodium 137 135-145 mmol/L Potassium 4.2 [...] Panel Reviewed date:09/17/2024 05:02:42 PM Interpretation: Performing Lab:[address] [address] Notes/Report: Triglycerides 85 <150 mg/dL Desirable Triglyceride: [...] Total Reviewed date:09/17/2024 05:02:53 PM Interpretation: Performing Lab:[address] [phone] Notes/Report: Vitamin D 25-OH Total 66.5 >30 [...] A1c Reviewed date:09/17/2024 05:01:59 PM Interpretation: Performing Lab:[facility], [address] [place] [phone] Notes/Report: Hemoglobin A1c % 5.9 <6.0 % [...] average glucose, using the formula of the [id number] Average Glucose study (ADAG), Diabetes Care, Vol.31,#8, Mar. 2007 INR WHOLE BLOOD POC Reviewed date:01/05/2024 12:45:42 PM Interpretation: Performing Lab:[facility], [address] [place] [phone] Notes/Report: PT, INR - Anti Coag Clinic 2.1 0.9-1.1 METER #: [id number] INTERNATIONAL NORMALIZED RATIO (INR) REFERENCE RANGES Reference [...] OC Reviewed date:01/05/2024 12:51:44 PM Interpretation: Performing Lab:[facility], [address] [place] [phone] Notes/Report: Prothrombin Time Whole Bld POC 25.7 11.1-13.5 sec Complete Blood Count Auto Di ff Reviewed date:01/13/2024 04:12:10 PM Interpretation: Performing Lab:[facility], [address] [place] [phone] Notes/Report: White Blood Count 7.9 4.8-10.8 X10*3/uL [...] INR Reviewed date:01/13/2024 04:05:04 PM Interpretation: Performing Lab:[facility], [address] [place] [address] Notes/Report: Prothrombin Time 23.8 11.1-13.3 SEC INTERNATIONAL [...] Time Reviewed date:01/13/2024 04:04:44 PM Interpretation: Performing Lab:[facility], [address] [place] [phone] Notes/Report: Partial Thromboplastin Time 38.4 26.0-36.8 SEC For information regarding the monitoring of direct thrombin inhibitors, please refer to Pharmacy. Liver Panel Reviewed date:01/13/2024 04:05:24 PM Interpretation: Performing Lab:[facility], [address] [place] [phone] Notes/Report: Bilirubin Total 0.8 0.0-1.0 mg/dL Bilirubin Direct 0.3 0.0-0.5 mg/dL Aspartate Amino Transferase 18 5-37 U/L Alanine Aminotransferase 16 0-40 U/L Total Protein 6.9 6.5-8.0 g/dL Albumin Level 4.0 3.5-5.0 g/dL Alkaline Phosphatase 72 39-117 U/L Basic Metabolic Panel Reviewed date:01/13/2024 04:06:37 PM Interpretation: Performing Lab:[facility], [address] [place] [phone] Notes/Report: Sodium 138 135-145 mmol/L Potassium 3.8 [...] Glomerular Filt Rate > 60 NOTE: For -Chinese individuals, multiply the result by 1.210. Chronic Kidney Disease: Estimated GFR < 60 mL/min/1.73m2 Severe Kidney Disease: Estimated GFR < 15 mL/min/1.73m2 Glucose Random 131 60-115 mg/dL Calcium 9.6 8.4-10.2 mg/dL B Type Natriuretic Peptide Reviewed date:01/13/2024 04:04:32 PM Interpretation: Performing Lab:[facility], [address] [place] [phone] Notes/Report: B Type Natriuretic Peptide 246 <100 pg/mL For those patients who are being treated with Natrecor (nesiritide, recombinant BNP), BNP testing should be performed at least two hours post treatment in order to ensure that only endogenous levels of BNP are detected. US venous duplex LE LT Reviewed date:01/16/2024 01:42:02 PM Interpretation: Performing Lab: Notes/Report: [address] [address] Ultrasound Report Signed Patient: Steven Tiwari MR#: [id number] : 1945 Acct:[id number] Age/Sex: 78 / M ADM Date: 01/13/24 Loc: HO.ED Attending Dr: Ordering Physician: Shae Fernandez Date of Service: 01/13/24 Procedure(s): US venous duplex LE LT Accession Number(s): [id number] cc: Yonathan Womack MD; Shae Fernandez EXAMINATION: [...] Signed By: <Electronically signed by Domenico Romano Jr DO in OV> 01/13/24 163 DD/ 1540 TD/TT: Compliance Project Manager: ILIANA [address] [address] Ultrasound Report Signed Patient: Steven Tiwari MR#: [id number] : 1945 Acct:[id number] Age/Sex: 78 / M ADM Date: 01/13/24 Loc: HO.ED Attending Dr: Ordering Physician: Shae Fernandez Date of Service: 01/13/24 Procedure(s): US venous duplex LE LT Accession Number(s): [id number] cc: Yonathan Womack MD; Shae Fernandez EXAMINATION: [...] x 2.4 cm. Dictated By: Domenico Romano Jr DO Signed By: <Electronically signed by Domenico Romano Jr, DO in OV> 01/13/24 163 DD/ 1540 TD/TT: Compliance Project Manager: ILIANA INR WHOLE BLOOD POC Reviewed date:02/02/2024 11:56:26 AM Interpretation: Performing Lab:[facility], [address] [place] [phone] Notes/Report: PT, INR - Anti Coag Clinic 2.0 0.9-1.1 METER #: [id number] INTERNATIONAL NORMALIZED RATIO (INR) REFERENCE RANGES Reference [...] OC Reviewed date:02/02/2024 11:56:57 AM Interpretation: Performing Lab:[facility], [address] [place] [phone] Notes/Report: Prothrombin Time Whole Bld POC 24.3 11.1-13.5 sec INR WHOLE BLOOD POC Reviewed date:02/21/2024 12:32:10 PM Interpretation: Performing Lab:[facility], [address] [place] [phone] Notes/Report: PT, INR - Anti Coag Clinic 2.6 0.9-1.1 METER #: [id number] INTERNATIONAL NORMALIZED RATIO (INR) REFERENCE RANGES Reference [...] OC Reviewed date:02/21/2024 12:33:44 PM Interpretation: Performing Lab:[facility], [address] [place] [phone] Notes/Report: Prothrombin Time Whole Bld POC 30.9 11.1-13.5 sec INR WHOLE BLOOD POC Reviewed date:03/20/2024 12:25:26 PM Interpretation: Performing Lab:[facility], [address] [place] [phone] Notes/Report: PT, INR - Anti Coag Clinic 2.2 0.9-1.1 METER #: [id number] INTERNATIONAL NORMALIZED RATIO (INR) REFERENCE RANGES Reference [...] OC Reviewed date:03/20/2024 12:37:24 PM Interpretation: Performing Lab:[facility], [address] [place] [address] Notes/Report: Prothrombin Time Whole Bld POC 26.6 11.1-13.5 sec INR WHOLE BLOOD POC Reviewed date:04/17/2024 12:02:54 PM Interpretation: Performing Lab:[facility], [address] [place] [phone] Notes/Report: PT, INR - Anti Coag Clinic 2.1 0.9-1.1 METER #: [id number] INTERNATIONAL NORMALIZED RATIO (INR) REFERENCE RANGES Reference [...] OC Reviewed date:04/17/2024 11:58:45 AM Interpretation: Performing Lab:[facility], [address] [place] [phone] Notes/Report: Prothrombin Time Whole Bld POC 25.0 11.1-13.5 sec INR WHOLE BLOOD POC Reviewed date:05/15/2024 11:36:59 AM Interpretation: Performing Lab:[facility], [address] [place] [phone] Notes/Report: PT, INR - Anti Coag Clinic 1.8 0.9-1.1 METER #: [id number] INTERNATIONAL NORMALIZED RATIO (INR) REFERENCE RANGES Reference [...] OC Reviewed date:05/15/2024 10:55:33 AM Interpretation: Performing Lab:[facility], [address] [place] [phone] Notes/Report: Prothrombin Time Whole Bld POC 21.1 11.1-13.5 sec INR WHOLE BLOOD POC Reviewed date:05/29/2024 10:08:18 AM Interpretation: Performing Lab:[facility], [address] [place] [phone] Notes/Report: PT, INR - Anti Coag Clinic 2.0 0.9-1.1 METER #: [id number] INTERNATIONAL NORMALIZED RATIO (INR) REFERENCE RANGES Reference [...] OC Reviewed date:05/29/2024 10:08:25 AM Interpretation: Performing Lab:[facility], [address] [place] [phone] Notes/Report: Prothrombin Time Whole Bld POC 24.0 11.1-13.5 sec INR WHOLE BLOOD POC Reviewed date:06/26/2024 10:55:58 AM Interpretation: Performing Lab:[address] [phone] Notes/Report: PT, INR - Anti Coag Clinic 2.6 0.9-1.1 METER #: [id number] INTERNATIONAL NORMALIZED RATIO (INR) REFERENCE RANGES Reference [...] OC Reviewed date:06/26/2024 10:55:20 AM Interpretation: Performing Lab:[facility], [address] [place] [phone] Notes/Report: Prothrombin Time Whole Bld POC 31.3 11.1-13.5 sec INR WHOLE BLOOD POC Reviewed date:07/24/2024 12:43:30 PM Interpretation: Performing Lab:[facility], [address] [place] [address] Notes/Report: PT, INR - Anti Coag Clinic 2.7 0.9-1.1 METER #: [id number] INTERNATIONAL NORMALIZED RATIO (INR) REFERENCE RANGES Reference [...] OC Reviewed date:07/24/2024 12:43:38 PM Interpretation: Performing Lab:[facility], [address] [place] [address] Notes/Report: Prothrombin Time Whole Bld POC 32.5 11.1-13.5 sec INR WHOLE BLOOD POC Reviewed date:08/23/2024 12:31:58 PM Interpretation: Performing Lab:[facility], [address] [place] [address] Notes/Report: PT, INR - Anti Coag Clinic 2.6 0.9-1.1 METER #: [id number] INTERNATIONAL NORMALIZED RATIO (INR) REFERENCE RANGES Reference [...] OC Reviewed date:08/23/2024 12:31:49 PM Interpretation: Performing Lab:[facility], [address] [place] [phone] Notes/Report: Prothrombin Time Whole Bld POC 31.7 11.1-13.5 sec PSA,Total (Free>4and<10) Reviewed date:09/17/2024 05:00:46 PM Interpretation: Performing Lab:[facility], [address] [place] [address] Notes/Report: PSA,Total (Free>4and<10) 0.21 0.00-4.00 ng/mL A [...] POC Reviewed date:09/20/2024 11:51:44 AM Interpretation: Performing Lab:[facility], [address] [place] [address] Notes/Report: PT, INR - Anti Coag Clinic 2.2 0.9-1.1 METER #: [id number] INTERNATIONAL NORMALIZED RATIO (INR) REFERENCE RANGES Reference [...] OC Reviewed date:09/20/2024 12:12:38 PM Interpretation: Performing Lab:[facility], [address] [place] [address] Notes/Report: Prothrombin Time Whole Bld POC 26.6 11.1-13.5 sec INR WHOLE BLOOD POC Reviewed date:10/18/2024 12:44:55 PM Interpretation: Performing Lab:[facility], [address] [place] [address] Notes/Report: PT, INR - Anti Coag Clinic 2.9 0.9-1.1 METER #: [id number] INTERNATIONAL NORMALIZED RATIO (INR) REFERENCE RANGES Reference [...] OC Reviewed date:10/18/2024 12:44:46 PM Interpretation: Performing Lab:[facility], [address] [place] [address] Notes/Report: Prothrombin Time Whole Bld POC 34.6 11.1-13.5 sec US renal BI Reviewed date:11/13/2024 12:24:24 PM Interpretation: Performing Lab: Notes/Report: [address] [address] Ultrasound Report Signed Patient: Steven Tiwari MR#: [id number] : 1945 Acct:[id number] Age/Sex: 79 / M ADM Date: 11/12/24 Loc: HO.US Attending Dr: Yonathan Womack MD Ordering Physician: Yonathan Womack MD Date of Service: 11/12/24 Procedure(s): US renal BI Accession Number(s): [id number] cc: Yonathan Womack MD CLINICAL HISTORY: Disorders of adrenal gland US RENAL Comparison: US/NV/SR - US ABDOMEN COMPLETE - 10/06/23 08:38 [...] Rosales MD in OV> 11/12/24 1740 DD/ 173 TD/TT: 11/12/24 173 Compliance Project Manager: [place] [address] Ultrasound Report Signed Patient: Steven Tiwari MR#: [id number] : 1945 Acct:[id number] Age/Sex: 79 / M ADM Date: 11/12/24 Loc: HO.US Attending Dr: Yonathan Womack MD Ordering Physician: Yonathan Womack MD Date of Service: 11/12/24 Procedure(s): US evelyne Aranda Accession Number(s): [id number] cc: Yonathan Womack MD CLINICAL HISTORY: Disorders of adrenal gland US RENAL Comparison: US/NV/SR - US ABDOMEN COMPLETE - 10/06/23 08:38 [...] Rosales MD in OV> 11/12/24 1740 DD/ 173 TD/TT: 11/12/24 173 Compliance Project Manager: INR WHOLE BLOOD POC Reviewed date:11/19/2024 12:19:08 PM Interpretation: Performing Lab:[facility], [address] [place] [address] Notes/Report: PT, INR - Anti Coag Clinic 2.7 0.9-1.1 METER #: [id number] INTERNATIONAL NORMALIZED RATIO (INR) REFERENCE RANGES Reference [...] OC Reviewed date:11/19/2024 12:18:23 PM Interpretation: Performing Lab:[facility], [address] [place] [address] Notes/Report: Prothrombin Time Whole Bld POC 32.8 11.1-13.5 sec Reason For Referral Reason pain in left knee Diagnosis 1 Pain in left knee (M 25.562) Referral Organization Yonathan Womack MD Referring Provider First Name Yonathan Referring Provider Last Name Shanta Referring Provider Speciality Internal edicine Referred Provider Lazaro Weinberg Referred Provider Specialty Orthopedic S urgery General Notes Otilia Nova 11:11:36 AM EDT > patient is aware of appt Nafisa Patti A 07/17/2024 12:18:37 PM EST > NOTES RECD Referral Priority Routine Referral Appointment Date 03/22/2024 Reason right upper quadrant pain Diagnosis 1 Right upper quadrant pain (R10.11) Referral Organization Yonathan Womack MD Referring Provider First Name Yonathan Referring Provider Last Name Shanta Referring Provider Speciality Internal edicine Referred Provider Simone Mesa Referred Provider Specialty Surgery General Notes Otilia Nova 09:52:59 AM EST > info faAvtar floyd Annette 06/25/2024 10:00:44 AM EST > mail info to patient Referral Priority Routine Referral Appointment Date 07/06/2024 Reason please eval and jing archibald for physical therapy Diagnosis 1 Abnormal gait (R26.9 ) Diagnosis 2 Shoulder pain (M25.5 19) Diagnosis 3 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) Referral Organization Yonathan Womack MD Referring Provider First Name Yonathan Referring Provider Last Name Shanta [facility] Referred Provider JEROME URIBE Referred Provider Specialty Unknown General Notes Otilia Nova 0 11/01/2024 11:51:33 AM >referral faxed to Avtar Gilliland Annette 11/01/2024 03:11:27 PM >Jena CANO isn't under contact with [facility] info faxed to Avtar Gonzales Annette 11/02/2024 11:22:49 AM > was told to refax Avtar Annette 11/05/2024 01:12:28 PM > was told again to Nafisa mejia Patti A 11/06/2024 09:12:42 AM >MR TIWARI ACCEPTED BY [facility] FOR PT BEGINNING 11/07 , SHERINE AT [phone] #2 IF ANY QUESTIONS Referral Priority Routine [...] W/U Status Risk Notes Problem Panic attack (774840064) Panic attack (300.01) Active confirmed Problem Cardiomyopathy (42511438) Cardiomyopathy (425.4) Active confirmed Problem 431397511 Unspecified asth ma, uncomplicated (J45.909) Active confirmed Problem 51190388 Restless leg syn drome (G25.81) Active confirmed Problem Carotid artery disease (262448875) Carotid artery disease (I77.9) Active confirmed Problem 84059560 Vitamin D defici ency (E55.9) Active confirmed Problem 47520842 Anxiety (F41.9) Active confirmed Problem Hypomagnesemia (326724062) Hypomagnesemia (E83.42) Active confirmed Problem 21288182 Other chronic pa in (G89.29) Active confirmed Problem 0550996 Diverticulitis o f large intestine without perforation or abscess with bleeding (K57.33) Active confirmed Problem 727775016 Prostate cancer (C61) Active confirme d Problem 1607102 Prediabetes (R73.09) Active confirmed Problem 408105558 Low HDL (under 4 0) (E78.6) Active confirmed Problem 83070705 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) Active confirmed Problem 002839555 Cervical disc di sease (M50.90) Active confirmed Problem 42878070 Intrinsic eczema (L20.84) Active confirmed Problem 952183798 Gall stones (K80.20) Active confirmed Problem 357576099 History of prost ate cancer (Z85.46) Active confirmed Problem 690351906 Kidney mass (N28.89) Active confirmed Problem 19980484 Dysthymia (F34.1) Active confirmed Problem 936598920 Anticoagulant long-term use (Z79.01) Active confirmed Problem 928009909 Nonalcoholic hepatosteatosis (K76.0) Active confirmed Problem 121316705 History of myoca rdial infarction (I25.2) Active confirmed Problem 66407397 Reflux gastritis (K29.60) Active confirmed Problem 70371452 Sleep apnea, unspecified type (G47.30) Active confirmed Problem 264797293 Acute on chronic systolic congestive heart failure (I50.23) Active confirmed Problem 955294718 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) Active confirmed Problem 276378064 Benign prostatic hyperplasia with lower urinary tract symptoms (N40.1) Active confirmed Problem 270818404 Pure hypercholesterolemia (E78.00) Active confirmed Problem Abnormal gait (68190247) Abnormal gait (R26.9) Active confirmed Problem 5717544 Low calcium leve ls (E83.51) Active confirmed Problem 335488004 Abnormal CT scan , kidney (R93.429) Active confirmed Problem 173163011 On bridging jing tment with lovenox (Z79.01) Active confirmed Problem 549366347 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) Active confirmed Problem 356933028 Atrial fibrillat ion, chronic (I48.20) Active confirmed Problem 307024262 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 Vital Signs Blood pressure diastolic 60 mm Hg 10/25/2024 Height 69 in 10/25/2024 Blood pressure systolic 102 mm Hg 10/25/2024 Weight 209 lbs 10/25/2024 BMI 30.86 kg/m2 10/25/2024 Encounters Encounter Location Date Provider Diagnosis Yonathan Womack MD [address] [place], [place] [id number] 09/17/2024 Yonathan Womack Blood tests for rout ine general physical examination Z00.00 ; Prediabetes R73.09 ; Pure hypercholesterolemia E78.00 ; Prostate cancer C61 ; Vitamin D deficiency E55.9 and Acute on chronic systolic congestive heart failure I50.23 Yonathan Womack MD [address] [place] [id number] 01/19/2024 Yonathan Womack Synovial cyst of lef t popliteal space M71.22 and Acute on chronic systolic congestive heart failure I50.23 Yonathan Womack MD [address] [place] [id number] 02/21/2024 Yonathan Bombardier Pain in left knee M2 5.562 and Other chronic pain G89.29 Yonathan Womack MD [address] [place] [id number] 05/21/2024 Yonathan Womack Acute on chronic sys tolic congestive heart failure I50.23 Yonathan Womack MD [address] [place] [id number] 06/25/2024 Yonathan Womack Right upper quadrant pain R10.11 Yonathan Womack MD [address] [place] [id number] 07/26/2024 Yonathan Womack Acute on chronic sys tolic congestive heart failure I50.23 Yonathan Womack MD [address] [place] [id number] 09/21/2024 Yonathan Womack Elevated BUN R79.9 ; Annual physical exam Z00.00 ; Nonalcoholic hepatosteatosis K76.0 ; Prediabetes R73.09 ; Atrial fibrillation, chronic I48.20 ; Anticoagulant long-term use Z79.01 ; Acute on chronic systolic congestive heart failure I50.23 ; Reflux gastritis K29.60 and Depression screening Z13.31 Yonathan Womack MD [address] [place] [id number] 10/25/2024 Yonathan Womack Shoulder pain M25.51 9 and Abnormal gait R26.9 Yonathan Womack MD [address] [place] [id number] 11/05/2024 Yonathan Woamck MD [address] [place] [id number] 12/13/2023 Yonathan Womack MD [address] [place] [id number] 01/24/2024 Yonathan Womack MD [address] [place], [place] [id number] 03/26/2024 Yonathan Womack MD [address] [place] [id number] 04/10/2024 Yonathan Womack MD [address] [place] [address] [id number] 04/26/2024 Yonathan Womack MD [address] [place] [id number] 05/03/2024 Yonathan Womack MD [address] [place] [address] [id number] 07/24/2024 Yonathan Womack MD [address] [place] [address] [id number] 09/04/2024 Yonathan Womack MD [address] [place] [address] [id number] 10/15/2024 Yonathan Womack MD [address] [place] [id number] 10/16/2024 Yonathan Womack Assessments Encounter Date Diagnosis [...] - M25.562) needs wheelchair. is getting through [facility]. also needs medline 300 which is a pad because he doesn't have control of urine/ make referral to [facility] 02/21/2024 Other chronic pain (ICD-10 - [...] and he is going to go to retinal angiographer to see what need to be done [...] 10/20/2024 Next Appt Details Provider Name:Yonathan mendoza, 12/21/2024 07:45:00 AM, [address] [place] [address], [address] [facility], [place], [place], [id number], Provider Name:Yonathan mendoza, 12/28/2024 10:15:00 AM, [address] [place] [address], [address] [facility], [place], [id number], Provider Name:Yonathan mendoza, 03/21/2025 07:00:00 AM, [address] [place] [address], [address] [facility], [place], [place], [phone], Provider Name:Yonathan mendoza, 09/17/2025 07:45:00 AM, [address] [place] [address], [address] [facility], [place], [place], [id number], Provider Name:Yonathan Pan ier, 09/24/2025 01:00:00 PM, [address], [address], [place], [place], [phone], Provider Name:Yonathan Pan ier, 03/28/2026 10:00:00 AM, [address], [address], [place], [place], [id number], Insurance Providers Payer Name Payer Address Payer Phone Subscriber Number Group Number Insured Name Patient Relationship to Insured Coverage Start Date Coverage End Date [employer] [address] [place] [phone] [id number] STEVEN TIWARI Self - patient is the insured [address] [address] [id number] STEVEN TIWARI Self - patient is the insured Medical (General) History Medical History History ICD Code cerebrovascular accident 2006 refuses a stress test due to adverse yenny nt in the past. 05/30/2013 - colonoscopy due in 3 years. refuses to have another 2016
--- OUTSIDE RECORDS SUMMARY | 2024-12-08 11:32 | XMS_ITS ---
Author Organization Yonathan Womack MD Address [address] [place] [phone] Care Team Providers Care Edge Gluer Name Role Phone Yonathan Womack Primary Care Provider [phone] REASON FOR VISIT Renal US BI due Encounters Encounter Location Date Provider Diagnosis Yonathan Womack MD [address] [facility] [address] [place] [phone] 10/16/2024 Yonathan Womack Plan Of Treatment Next Appt Details Provider Name:Yonathan mendoza, 12/21/2024 07:45:00 AM, [address] [facility], Suite [facility], [place], [place], [phone], Provider Name:Yonathan mendoza, 12/28/2024 10:15:00 AM, [address] [place] [address], Suite [facility], [place], [place], [phone], Provider Name:Yonathan mendoza, 03/21/2025 07:00:00 AM, [address] [place] [address], [address], [id number], Provider Name:Yonathan Pan ier, 09/17/2025 07:45:00 AM, [address], [address], [place], [place], [phone], Provider Name:Yonathan Pan ier, 09/24/2025 01:00:00 PM, [address] [facility] [address], [address], [place], [phone], Provider Name:Yonathan Pan ier, 03/28/2026 10:00:00 AM, [address], [address], [place], [phone], Progress Notes * STEVEN NUNEZDOB: [birth year] (79 yo M)Acc No.[id number]:10/16/2024 Patient:?STEVEN NUNEZ :1945???Age:79 Y???Sex:Male Address:[address] [place] [address], [address] * true * Date:? Generated for Douglas whitehead/Galina/eTransmitting on:?12/08/2024 11:32 AM EDT
--- OUTSIDE RECORDS SUMMARY | 2024-12-08 11:32 | XMS_ITS | Encounter Summary ---
Author Organization [facility] Address [address] [place] [phone] Care Team Providers Care Hurricane Tracker Name Role Phone Yonathan Womack MD Primary Care Provider [phone] Reason for Visit * Reason Onset Date Comments Med Refill 11/29/2024 Metoprolol Encounter Details Date Type Department Care Team (Late st Contact Info) Description 11/29/2024 Telephone [facility] [address] [place] [address] [address] [place] [phone] Eddie Granados MD [address] [place] [address] DRIVE [address] [place] [address] Med Refill (Metoprolol) Social History Tobacco Use [...] day supply, please send to [facility] on [facility] in [place]. documented in this encounter Plan of Treatment Upcoming Encounters Date Type Department Care Team (Late st Contact Info) Description 12/20/2024 11:30 AM EDT Office Visit [facility] [address] [place] [address] [place] [phone] Michaela Anguiano NP [address] [place] [address] [address] [place] [address] 01/24/2025 9:10 AM EDT Office Visit [facility] [place] [phone] Michaela Anguiano NP [address] [place] [address] [address] [place] [address] documented as of this encounter Visit Diagnoses [...] documented as of this encounter Care Teams Hurricane Tracker Relationship Specialty Start Date End Date Yonathan Womack MD PCP - General 12/26/12 documented as of this encounter
--- OUTSIDE RECORDS SUMMARY | 2024-12-08 11:32 | XMS_ITS | Clinical Summary ---
Author Organization [address] [place] [address] [place] [phone] Phone Care Team Providers Care Renderer Name Role Phone Yonathan Womack MD Primary Care Provider Allergies Active Allergy Reactions Criticality Noted Date [...] Do not change dietary habits. Managed by [facility]. Active furosemide (LASIX) 20 mg tablet [...] he said he would go to the [facility] ER from our office. He has a ride and will not be driving PVD (peripheral vascular disease) ([facility] V24) 08/09/2023 Overview (06/07/2024): Last Assessment & Plan: History of peripheral vascular disease with known carotid stenosis. Dizzinesses 03/15/2023 HFrEF (heart failure with re duced ejection fraction) ([facility] V24, [facility] V28) 01/06/2023 Overview (06/07/2024): Last Assessment & [...] 2 visits to the emergency room at [facility] for chest pain both times he was [...] has side effects from adenosine Atrial fibrillation ([facility] V24, [facility] V28) 1 Overview (06/07/2024): Last Assessment & Plan: History of atrial fibrillation with stroke. 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 05/26 Overview (06/07/2024): Last Assessment & [...] Type Department Care Team Description 12/05/2024 Telephone [facility] [address] [place] [address] [place] [address] Eddie Granados MD Weight Gain; irregular heart rate 11/29/[address] [facility] [address] [facility] [address] [place] [address] Eddie Granados MD Med Refill (Metoprolol) 11/19/2024 Telephone [facility] [address] [address] [place] [phone] Simone Cantrell MD Medication 11/19/2024 Telephone [facility] [address] [facility] [address] [place] [address] Eddie Granados MD high pulse (High pulse ) 10/11/2024 Telephone [facility] [address] [facility] [address] [place] [address] Eddie Granados MD Med Refill (Furosemide, Sprinolactone ) from Last 3 Months Medical History Medical History Date Comments CVA (cerebral vascular accid ent) ([facility] V24, [facility]/H[facility] V28) DX:CVA (cerebral vascular ac cident) ([facility]) Chronic ischemic heart disease D X:Chronic [...] Description 12/20/2024 11:30 AM EDT Office Visit [facility] [address] [facility] [place] [phone] Michaela Anguiano NP [address] [place] [address] [address] [place] [address] 01/24/2025 9:10 AM EDT Office Visit [facility] [place] [phone] Michaela Anguiano NP [address] [place] [address] [address] [place] [address] Health Maintenance Due Date Last Done Comments [...] MEDICARE ADVANTAGE MEDICAID - [place] Care Teams Renderer Relationship Specialty Start Date End Date Yonathan Womack MD PCP - General 12/26/12
--- OUTSIDE RECORDS SUMMARY | 2024-12-08 11:32 | XMS_ITS ---
Author Organization Yonathan Womack MD Address [address] [place] [phone] Care Team Providers Care Flight Test Supervisor Name Role Phone Yonathan Womack Primary Care Provider [phone] REASON FOR VISIT [facility] Risk Codes 5/9 Encounters Encounter Location Date Provider Diagnosis Yonathan Womack MD [address] [facility] [address] [place] [phone] 11/05/2024 Yonathan Womack Plan Of Treatment Next Appt Details Provider Name:Yonathan mendoza, 12/21/2024 07:45:00 AM, [address] [facility], Suite [facility], [place], [place], [phone], Provider Name:Yonathan mendoza, 12/28/2024 10:15:00 AM, [address] [place] [address], Suite [facility], [place], [place], [phone], Provider Name:Yonathan mendoza, 03/21/2025 07:00:00 AM, [address] [place] [address], [address], [phone], Provider Name:Yonathan Pan janyr, 09/17/2025 07:45:00 AM, [address], [address], [place], [phone], Provider Name:Yonathan Pan reji, 09/24/2025 01:00:00 PM, [address] [facility] [address], [address], [place], [phone], Provider Name:Yonathan Pan janyr, 03/28/2026 10:00:00 AM, [address] [place] [address] Drive, [address], [place], [phone], Progress Notes * STEVEN NUNEZDOB: [birth year] (79 yo M)Acc No.[id number]:11/05/2024 Patient:?STEVEN NUNEZ :1945???Age:79 Y???Sex:Male Address:[address] [place] [address], [address] * * Date:?
[2024-12-08 11:42] LABS: MANUAL DIFF FLAG NO
[2024-12-08 11:43] LABS: Basophils Absolute Auto 0.1 X10*3/uL (0.0-0.2); Basophils Percent Auto 0.6 % (0-2); Eosinophils Absolute Auto 0.1 X10*3/uL (0.0-0.4); Eosinophils Percent Auto 0.7 % (0-4); Hematocrit 40.7 % (42.0-52.0); Hemoglobin 14.2 g/dl (14.0-18.0); Imm Gran Abs Auto 0.03 X10*3/uL (0.00-0.03); Imm Gran Pct Auto 0.4 % (0.0-0.4); Lymphocytes Absolute Auto 2.2 X10*3/uL (1.2-4.9); Lymphocytes Percent Auto 26.5 % (20-40); Mean Corpuscular HGB Conc 34.9 g/dl (31.0-36.0); Mean Corpuscular Hemoglobin 30.1 pg (27.0-33.0); Mean Corpuscular Volume 86.2 fL (80.0-98.0); Mean Platelet Volume 10.7 fL (9.4-12.4); Monocytes Absolute Auto 0.9 X10*3/uL (0.1-1.2); Monocytes Percent Auto 10.4 % (2-11); Neutrophils Absolute Auto 5.1 x10*3/uL (2.0-8.3); Neutrophils Percent Auto 61.4 % (45-73); Platelet Count 151 X10*3/uL (160-400); Red Blood Count 4.72 X10*6/uL (4.60-5.80); Red Cell Distribution Width 13.5 % (11.0-16.0); White Blood Count 8.3 X10*3/uL (4.8-10.8)
[2024-12-08 11:48] LABS: INTERNATIONAL NORM RATIO 2.9 (0.9-1.1); Prothrombin Time 34.1 SEC (10.9-12.4)
[2024-12-08 12:03] LABS: B Type Natriuretic Peptide 978 pg/mL (<100)
[2024-12-08 12:08] LABS: Alanine Aminotransferase 16 U/L (0-40); Albumin Level 3.8 g/dL (3.5-5.0); Anion Gap 12 (12-20); Aspartate Amino Transferase 18 U/L (5-37); Bilirubin Direct 0.3 mg/dL (0.0-0.5); Bilirubin Total 0.7 mg/dL (0.0-1.0); Blood Urea Nitrogen 25 mg/dL (9-16); Calcium 9.2 mg/dL (8.4-10.2); Carbon Dioxide 24 mmol/L (22-29); Chloride 104 mmol/L (96-108); Creatinine Clr Calc Pharmacy 72.7; Estimated Glomerular Filt Rate > 60; Glucose Random 116 mg/dL (60-115); Magnesium 1.6 mg/dL (1.6-2.6); Potassium 3.4 mmol/L (3.3-5.1); Sodium 137 mmol/L (135-145); Total Protein 6.3 g/dL (6.5-8.0)
[2024-12-08 12:11] LABS: Troponin-I High Sensitivity 47.7 ng/L (<3.5-35.0)
[2024-12-08 12:20] LABS: Influenza A PCR NEGATIVE (Negative); Influenza B PCR NEGATIVE (Negative); Resp Syncy Virus RNA Qual PCR NEGATIVE (Negative); SARS COV2 PCR INHOUSE NEGATIVE (Negative)
[2024-12-08 12:58] LABS: Alkaline Phosphatase 73 U/L (39-117)
[2024-12-08 13:01] VITALS: BP 117/79
[2024-12-08] MEDS: Furosemide 100 MG/10 ML VIAL 80 MG IVPUSH (13:01)
[2024-12-08 13:30] VITALS: O2SAT 96
[2024-12-08 14:34] LABS: Troponin-I High Sensitivity 57.9 ng/L (<3.5-35.0)
[2024-12-08 14:41] VITALS: BP 117/79; PULSE 98; RESP 18; TEMP 36.6; O2SAT 97
== END 2024-12-08 15:18 | disposition home or self-care (01) ==
PROVIDERS: Physician Assistant; Emergency Provider Emergency Medicine; PCP Internal Medicine
DX: I50.9 Heart failure, unspecified (principal); R06.02 Shortness of breath; R06.01 Orthopnea; Z79.899 Other long term (current) drug therapy
CPT/HCPCS: 0241U; 36415; 71046; 80048; 80076; 83735; 83880; 84484; 85025; 85610; 93005; 99283; J1938

== ENCOUNTER → 2024-12-08 10:55 | Outpatient (BNV) | payer MEDICARE, MEDICAID, SELFPAY | PROVIDERS: Emergency Provider Emergency Medicine; PCP Internal Medicine; Visit Provider Internal Medicine Cardiovascular Disease | DX: I49.49 Other premature depolarization (principal); I45.2 Bifascicular block | CPT/HCPCS: 93010 ==

== ENCOUNTER → 2024-12-08 10:55 | Outpatient (BNV) | payer MEDICARE, MEDICAID, SELFPAY | PROVIDERS: Emergency Provider Emergency Medicine; PCP Internal Medicine; Visit Provider Radiology Diagnostic Radiology | DX: J90 Pleural effusion, not elsewhere classified (principal) | CPT/HCPCS: 71046 ==

== ENCOUNTER 2024-12-09 09:56 | Inpatient (IN) | payer MEDICARE, MEDICAID, SELFPAY ==
[2024-12-09] VITALS (9 sets, daily range): BP systolic 99–119; BP diastolic 54–80; PULSE 78–100; RESP 16–20; TEMP 36.1–36.6; O2SAT 90–97; BMI 31.3
--- NOTE | ~2024-12-09 | XR_ITS ---
CLINICAL HISTORY: Dyspnea, rule out CHF 1 view chest x-ray Comparison: 12/08/2024 Findings: The lungs are clear. No significant change in cardiomediastinal silhouette. No pulmonary vascular congestion. No acute fracture. IMPRESSION: No significant change in cardiomediastinal silhouette. No pulmonary vascular congestion. This document has been electronically signed by: Neris Tavares MD on 12/09/2024 12:35:25
--- NOTE | 2024-12-09 10:06 | ECG_ITS ---
Test Reason : SOB Blood Pressure : */* mmHG Vent. Rate : 105 BPM Atrial Rate : 100 BPM P-R Int : 246 ms QRS Dur : 152 ms QT Int : 400 ms P-R-T Axes : 19 -52 21 degrees QTcB Int : 529 ms Artifact in tracing Normal sinus rhythm Right bundle branch block Left anterior fascicular block Bifascicular block Abnormal ECG When compared with ECG of 08-Dec-2024 11:06, Current undetermined rhythm precludes rhythm comparison, needs review QT has lengthened Referred By: Ian Fairchild Electronically Signed By: ANILA LINCOLN
--- NOTE | 2024-12-09 10:34 | ED_ITS ---
HPI - SOB/Dyspnea General Chief Complaint: Dyspnea Stated Complaint: CHF, difficulty breathing Time Seen by Provider: 12/09/24 10:05 Source: patient and other (Expect call from [facility] Cardiology nurse practitioner Cecelia Flannery ) Mode of arrival: ambulatory Limitations: no limitations History of Present Illness ED Provider: Dr. Ian Fairchild HPI Narrative: 79-year-old male with a past medical history of anxiety, [place], CHFwith reduced ejection fraction EF of 25-30% secondary to ischemic cardiomyopathy (07/05/2024), CVA, AFib on Coumadin, GERD, presenting to the ED via EMS complaining of worsening dyspnea on exertion, orthopnea, intermittent episodes palpitations and feeling like he was heart he was racing with symptoms pain present for proximally 2 months getting worse over the past 1-2 weeks. Patient was seen in the emergency department for similar complaints on 12/06/2024 and 12/08/2024. Patient was treated with IV Lasix and states that he diuresed 2 L each time. Patient however states that he still is not feeling better in his symptoms are persisting and are getting worse. Patient sees the donor processor, Dr. Granados. The patient called his donor processor's office in did speak with the nurse practitioner, Cecelia Flannery who recommended the patient go to the emergency department for re-evaluation and admission for IV diuresis. She did call in an expect and I did discuss the patient with her as well in the need for admission given multiple ED visits with no improvement with outpatient managed. The patient told me that he has been compliant with his Lasix and he was cardiovert increased his Lasix from 20 mg b.i.d. to 40 mg b.i.d. for the last 1.5 weeks. He states that today he took 60 mg orally prior to coming to emergency department. The patient was told that he needs to be on a fluid restriction but despite that he has been drinking at least 64 oz of fluid per day and he was not cut down on salt intake. Related Data Home Medications ?Medication ?Instructions ?Recorded ?Confirmed lorazepam 0.5 mg tablet 0.25 mg PO BID PRN Anxiety 11/14/20 12/09/24 omeprazole 20 mg capsule,delayed 20 mg PO DAILY@0630 11/14/20 12/09/24 release coenzyme Q10 100 mg capsule 100 mg PO DAILY 04/14/21 12/09/24 (CoQ-10) carboxymethylcellulose sodium 0.5 1 drp ophthalmic (eye) BID 11/30/22 12/09/24 % eye drops (Refresh Tears) spironolactone 25 mg tablet 12.5 mg PO BEDTIME 05/19/23 12/09/24 furosemide 20 mg tablet 40 mg PO BID 05/15/24 12/09/24 simvastatin 20 mg tablet 10 mg PO DAILY 11/19/24 12/09/24 metoprolol succinate 50 mg 50 mg PO DAILY 12/06/24 12/09/24 tablet,extended release 24 hr warfarin 2.5 mg tablet 5 mg PO WE 12/09/24 12/09/24 warfarin 2.5 mg tablet 7.5 mg PO SUMOTUTHFRSA 12/09/24 12/09/24 Previous Rx's ?Medication ?Instructions ?Recorded sacubitril 24 mg-valsartan 26 mg 1 tab PO BID #60 tabs 12/01/22 tablet (Entresto) Allergies Allergy/AdvReac Type Severity Reaction Status Date / Time adenosine Allergy Severe cardiac, Verified 12/09/24 10:03 elevated BP, Stroke Gadolinium-Containing Allergy Severe red eyes Verified 12/09/24 10:03 Contrast Medi Iodinated Contrast Media Allergy Severe Seizure Verified 12/09/24 10:03 [CONTRAST, IV] carvedilol Allergy Intermediate disorientat Verified 12/09/24 10:03 ion erythromycin base AdvReac Unknown Gut Verified 12/09/24 10:03 pain , Abdominal Pain, GI upset [facility] Past Medical History [facility] Narrative: Social history: He denies tobacco, drug and alcohol use. He states that his 5 years ago and he lives alone Medical History Anxiety Myocardial infarct, old CHF (congestive heart failure) CVA (cerebral vascular accident) A-fib Surgical History History of appendectomy Social History Social History Household Members: None Housing: House Do you presently have visiting nurse or other home services: Yes Alcohol intake: former Patient Tobacco Use Status: Never used Tobacco Smoked in Last 30 Days: No Use of substances other than those prescribed or required for medical reasons: No Advance Directives: No Advance Directives Information Provided: Yes Do you have a plan to hurt others: No Plan service: Yes Current occupational status: disabled Physical Exam 2 Vital Signs: Vital Signs: Last Vital Signs Temp 96.9 F 12/09/24 09:58 Pulse 90 12/09/24 14:50 Resp 16 12/09/24 14:50 BP 105/56 L 12/09/24 14:50 Pulse Ox 97 12/09/24 14:00 O2 Del Method Room Air 12/09/24 14:00 BMI result Body Mass Index 31.3 Vital signs were no Exam: General: Awake, alert in no distress Head: Normocephalic, atraumatic EENT: PERRL, Lids normal, sclera normal, conjunctiva normal, nose normal , ears normal, throat without erythema or exudates Neck: Supple, no adenopathy Lung: breath sounds symmetric, no wheezing, rales or rhonchi Chest: symmetric movement, nontender Heart: regular rate and rhythm, normal S1, S2 no murmurs or rubs Abdomen: soft, non-tender, nondistended, normal bowel sounds Back: no vertebral tenderness, no CVAT Extremities: no deformities, moves all extremities symmetrically, trace to 1+ pitting edema bilaterally symmetric Neuro: Awake, alert, oriented, normal speech, cranial nerves intact, moves all extremities symmetrically Psych: Pleasant, cooperative Medications Administered Discontinued Medications Generic Name Dose Route Start Last Admin Trade Name Freq PRN Reason Stop Dose Admin Furosemide 80 mg 12/09/24 12:52 12/09/24 12:59 Furosemide 100 Mg/10 Ml Vial IVPUSH 12/09/24 12:53 80 mg ONCE ONE Administration Protocol Lorazepam 1 mg 12/09/24 12:52 12/09/24 12:57 Lorazepam 1 Mg Tablet PO 12/09/24 12:53 1 mg ONCE ONE Administration Medical Decision Making Medical Decision Making MDM Narrative: 79-year-old male with a past medical history of anxiety, [place], CHF with reduced EF of 25-30% secondary to ischemic cardiomyopathy (echo 07/05/2024), CVA, AFib on Coumadin, GERD, presenting to the ED via EMS complaining of worsening dyspnea on exertion, orthopnea, intermittent episodes palpitations and feeling like he was heart he was racing with symptoms pain present for proximally 2 months getting worse over the past 1-2 weeks. Patient was seen in the emergency department for similar complaints on 12/06/2024 and 12/08/2024 given IV Lasix and diuresed 2 L each time. Patient however has not been staying on a fluid restriction and continues to drink 64 oz of fluid daily. He contacted his donor processor's office and spoke to the nurse practitioner, Cecelia Flannery . He complain of shortness of breath , dyspnea on exertion and orthopnea with no improvement despite to ED visits . His nurse practitioner advised the patient to go to the emergency department to be admitted for IV diuresis. She did call in an expect and I did discuss the patient's presentation with her, she requested the patient be admitted for IV diuresis and further evaluation. His vital signs were normal. Exam did reveal trace to 1+ pitting edema which is bilaterally symmetric. Exam was otherwise unremarkable Differential diagnosis: ?Includes but is not limited to myocardial infarction, myocardial ischemia, congestive heart failure, liver failure, renal failure, anemia, electrolyte abnormalities Course: 15:56 My interpretation patient's laboratory evaluation is as follows: CBC was normal. INR was therapeutic at 2.7. PTT elevated 41.3. BUN was elevated 24 with a normal creatinine of 1.10 with a GFR of greater than 60. Sodium was normal 137. Patient's high sensitive troponin I was elevated at 53.3. This is unchanged from his 2 troponins on 12/08/2024 there I doubt that the patient has myocardial injury and that the elevation is probably related to his cardiomyopathy. BNP elevated 1054. Patient was treated with Lasix 80 mg IV previously therefore I ordered the same dose. Patient will need to be admitted for IV diuresis. He may also benefit from a dietary consult to discuss low sodium diet and restricted fluid diet. I will discuss admission with the covering hospitalist. Admission/Observation Consideration of admission/observation: Escalation of care including admission/observation considered (Yes) Consult Healthcare Provider Management of the patient was discussed with: Home Health Aide Caregiver (Hospital) Lab Data MDM Lab Attestation statement: I reviewed the patient's lab results. 12/09/24 10:30 12/09/24 10:30 Labs: Lab Results 04/20/25 04/20/25 04/20/25 Range/Units 10:30 10:36 11:01 WBC 7.7 (4.8-10.8) X10*3/uL RBC 4.94 (4.60-5.80) X10*6/uL Hgb 15.1 (14.0-18.0) g/dl Hct 42.9 (42.0-52.0) % MCV 86.8 (80.0-98.0) fL MCH 30.6 (27.0-33.0) pg MCHC 35.2 (31.0-36.0) g/dl RDW 13.6 (11.0-16.0) % Plt Count 161 (160-400) X10*3/uL MPV 10.5 (9.4-12.4) fL Immature Gran % (Auto) 0.3 (0.0-0.4) % Neut % (Auto) 53.7 (45-73) % Lymph % (Auto) 35.4 (20-40) % [place] % (Auto) 9.2 (2-11) % Eos % (Auto) 1.0 (0-4) % Baso % (Auto) 0.4 (0-2) % Lymph # (Auto) 2.7 (1.2-4.9) X10*3/uL [place] # (Auto) 0.7 (0.1-1.2) X10*3/uL Eos # (Auto) 0.1 (0.0-0.4) X10*3/uL Baso # (Auto) 0.0 (0.0-0.2) X10*3/uL Abs Immat Gran (auto) 0.02 (0.00-0.03) X10*3/uL Absolute Neuts (auto) 4.1 (2.0-8.3) x10*3/uL Absolute Nucleated RBC 0.000 (0.0-0.012) X10*3/uL Nucleated RBC % (auto) 0.0 (0.0-0.2) /100WBC PT 31.9 H (10.9-12.4) SEC INR 2.7 H (0.9-1.1) APTT 41.3 H (26.0-36.8) SEC VBG pH 7.53 H (7.32-7.43) VBG pCO2 34 mmHg VBG pO2 55 mmHg VBG HCO3 28 H (22-26) mmol/L VBG O2 Saturation 87.0 % VBG Base Excess 6.3 mmol/L Sodium 137 (135-145) mmol/L Potassium 3.5 (3.3-5.1) mmol/L Chloride 102 (96-108) mmol/L Carbon Dioxide 22 (22-29) mmol/L Anion Gap 17 (12-20) BUN 24 H (9-16) mg/dL Creatinine 1.10 (0.5-1.4) mg/dL Estim Creat Clear Calc 61.3 Estimated GFR > 60 Random Glucose 136 H (60-115) mg/dL Calcium 9.3 (8.4-10.2) mg/dL Magnesium 1.5 L (1.6-2.6) mg/dL Total Bilirubin 1.0 (0.0-1.0) mg/dL AST 23 (5-37) U/L ALT 20 (0-40) U/L Alkaline Phosphatase 69 (39-117) U/L Troponin I High Sens 53.3 H (<3.5-35.0) ng/L B-Natriuretic Peptide 1054 H (<100) pg/mL Total Protein 6.8 (6.5-8.0) g/dL Albumin 4.0 (3.5-5.0) g/dL Lipase 29 (8-78) U/L Urine Color Urine Appearance Urine pH (5.0-9.0) Ur Specific [place] (1.005-1.025) Urine Protein (Neg-Trace) mg/dL Urine Glucose (UA) (Negative) mg/dL Urine Ketones (Negative) mg/dL Urine Blood (Negative) Urine Nitrite (Negative) Ur Leukocyte Esterase (Negative) Influenza Type A (PCR) NEGATIVE (Negative) Influenza Type B (PCR) NEGATIVE (Negative) RSV RNA Qual (PCR) NEGATIVE (Negative) SARS-CoV-2 RNA (RT-PCR) NEGATIVE (Negative) 12/09/24 Range/Units 14:00 WBC (4.8-10.8) X10*3/uL RBC (4.60-5.80) X10*6/uL Hgb (14.0-18.0) g/dl Hct (42.0-52.0) % MCV (80.0-98.0) fL MCH (27.0-33.0) pg MCHC (31.0-36.0) g/dl RDW (11.0-16.0) % Plt Count (160-400) X10*3/uL MPV (9.4-12.4) fL Immature Gran % (Auto) (0.0-0.4) % Neut % (Auto) (45-73) % Lymph % (Auto) (20-40) % [place] % (Auto) (2-11) % Eos % (Auto) (0-4) % Baso % (Auto) (0-2) % Lymph # (Auto) (1.2-4.9) X10*3/uL [place] # (Auto) (0.1-1.2) X10*3/uL Eos # (Auto) (0.0-0.4) X10*3/uL Baso # (Auto) (0.0-0.2) X10*3/uL Abs Immat Gran (auto) (0.00-0.03) X10*3/uL Absolute Neuts (auto) (2.0-8.3) x10*3/uL Absolute Nucleated RBC (0.0-0.012) X10*3/uL Nucleated RBC % (auto) (0.0-0.2) /100WBC PT (10.9-12.4) SEC INR (0.9-1.1) APTT (26.0-36.8) SEC VBG pH (7.32-7.43) VBG pCO2 mmHg VBG pO2 mmHg VBG HCO3 (22-26) mmol/L VBG O2 Saturation % VBG Base Excess mmol/L Sodium (135-145) mmol/L Potassium (3.3-5.1) mmol/L Chloride (96-108) mmol/L Carbon Dioxide (22-29) mmol/L Anion Gap (12-20) BUN (9-16) mg/dL Creatinine (0.5-1.4) mg/dL Estim Creat Clear Calc Estimated GFR Random Glucose (60-115) mg/dL Calcium (8.4-10.2) mg/dL Magnesium (1.6-2.6) mg/dL Total Bilirubin (0.0-1.0) mg/dL AST (5-37) U/L ALT (0-40) U/L Alkaline Phosphatase (39-117) U/L Troponin I High Sens (<3.5-35.0) ng/L B-Natriuretic Peptide (<100) pg/mL Total Protein (6.5-8.0) g/dL Albumin (3.5-5.0) g/dL Lipase (8-78) U/L Urine Color Yellow Urine Appearance Clear Urine pH 7.0 (5.0-9.0) Ur Specific [place] 1.010 (1.005-1.025) Urine Protein Negative (Neg-Trace) mg/dL Urine Glucose (UA) Negative (Negative) mg/dL Urine Ketones Negative (Negative) mg/dL Urine Blood Negative (Negative) Urine Nitrite Negative (Negative) Ur Leukocyte Esterase Negative (Negative) Influenza Type A (PCR) (Negative) Influenza Type B (PCR) (Negative) RSV RNA Qual (PCR) (Negative) SARS-CoV-2 RNA (RT-PCR) (Negative) Independent Interpretation I performed an independent interpretation of an: EKG Interpretation: My interpretation of the patient's 12 EKG done on 12/09/2024 at 10:17 hours is as follows: Sinus rhythm with a first-degree AV block with a rate of 105, prolonged VA 246 milliseconds, prolonged QTC of 637, consistent with a right bundle-branch block, frequent PVCs, no ST segment elevation, no ST segment depression. Compared to an EKG dated 12/08/2024 at 11:06 hours, patient had a first-degree block and right bundle-branch block were old patient had an occasional PVC in today's EKG shows more frequent PVCs. Radiology Impression Discussion of test interpretation with radiology: I have reviewed the radiologist's reading. Radiologist Impression: 1 view chest x-ray Comparison: 12/08/2024 Findings: The lungs are clear. No significant change in cardiomediastinal silhouette. No pulmonary vascular congestion. No acute fracture. IMPRESSION: No significant change in cardiomediastinal silhouette. No pulmonary vascular congestion. This document has been electronically signed by: Neris Tavares MD on 12/09/2024 12:35:25 Discharge Plan Discharge Clinical Impression: Ischemic cardiomyopathy, Fluid overload, VAZQUEZ (dyspnea on exertion), Orthopnea Patient Disposition: Admitted As Inpatient Print Language: Belarusian
[2024-12-09 10:35] LABS: MANUAL DIFF FLAG NO
[2024-12-09 10:36] LABS: Basophils Percent Auto 0.4 % (0-2); Eosinophils Absolute Auto 0.1 X10*3/uL (0.0-0.4); Hematocrit 42.9 % (42.0-52.0); Hemoglobin 15.1 g/dl (14.0-18.0); Imm Gran Abs Auto 0.02 X10*3/uL (0.00-0.03); Imm Gran Pct Auto 0.3 % (0.0-0.4); Lymphocytes Absolute Auto 2.7 X10*3/uL (1.2-4.9); Lymphocytes Percent Auto 35.4 % (20-40); Mean Corpuscular HGB Conc 35.2 g/dl (31.0-36.0); Mean Corpuscular Hemoglobin 30.6 pg (27.0-33.0); Mean Corpuscular Volume 86.8 fL (80.0-98.0); Mean Platelet Volume 10.5 fL (9.4-12.4); Monocytes Absolute Auto 0.7 X10*3/uL (0.1-1.2); Monocytes Percent Auto 9.2 % (2-11); Neutrophils Absolute Auto 4.1 x10*3/uL (2.0-8.3); Neutrophils Percent Auto 53.7 % (45-73); Platelet Count 161 X10*3/uL (160-400); Red Blood Count 4.94 X10*6/uL (4.60-5.80); Red Cell Distribution Width 13.6 % (11.0-16.0); White Blood Count 7.7 X10*3/uL (4.8-10.8)
--- OUTSIDE RECORDS SUMMARY | 2024-12-09 10:36 | XMS_ITS ---
Author Organization Yonathan Womack MD Address [address] [place] [phone] Care Team Providers Care Brine Maker Name Role Phone Yonathan Womack Primary Care Provider REASON FOR VISIT Renal US BI due Encounters Encounter Location Date Provider Diagnosis Yonathan Womack MD [address] [place] [phone] 10/16/2024 Yonathan Womack Plan Of Treatment Next Appt Details Provider Name:Yonathan mendoza, 12/21/2024 07:45:00 AM, [address] [facility], Suite [facility], [place], [place], [phone], Provider Name:Yonathan mendoza, 12/28/2024 10:15:00 AM, [address] [place] [address], Suite [facility], [place], [place], [phone], Provider Name:Yonathan mendoza, 03/21/2025 07:00:00 AM, [address] [place] [address], [address], [phone], Provider Name:Yonathan Pan ier, 09/17/2025 07:45:00 AM, [address], [address], [place], [phone], Provider Name:Yonathan Pan ier, 09/24/2025 01:00:00 PM, [address], [address], [place], [phone], Provider Name:Yonathan Pan ier, 03/28/2026 10:00:00 AM, [address], [address], [place], [phone], Progress Notes * STEVEN NUNEZDOB: [birth year] (79 yo M)Acc No.[id number]:10/16/2024 Patient:?STEVEN NUNEZ :1945???Age:79 Y???Sex:Male Address:[address] [place] [address], [address] * true * Date:? Generated for Douglas whitehead/Galina/eTransmitting on:?12/09/2024 10:36 AM EDT
--- OUTSIDE RECORDS SUMMARY | 2024-12-09 10:36 | XMS_ITS | Encounter Summary ---
Author Organization [facility] Address [address] [place] [id number] Care Team Providers Care Healthcare Sales Representative Name Role Phone Yonathan Womack MD Primary Care Provider [phone] Reason for Visit * Reason Onset Date Comments Med Refill 11/29/2024 Metoprolol Encounter Details Date Type Department Care Team (Late st Contact Info) Description 11/29/2024 Telephone [facility] [address] [place] [address] [address] [place] [phone] Eddie Granados MD [address] [place] [address] [address] [place] [address] Med Refill (Metoprolol) Social History Tobacco Use [...] day supply, please send to [facility] in [place]. documented in this encounter Plan of Treatment Upcoming Encounters Date Type Department Care Team (Late st Contact Info) Description 12/20/2024 11:30 AM EDT Office Visit [facility]iology [facility] [address] [place] [address] [place] [address] Michaela Anguiano NP [address] [place] [address] [address] [place] [address] 01/24/2025 9:10 AM EDT Office Visit [facility]iology [facility] [place] [address] Michaela Anguiano NP [address] [place] [address] [address] [place] [address] documented as of this encounter Visit Diagnoses [...] documented as of this encounter Care Teams Healthcare Sales Representative Relationship Specialty Start Date End Date Yonathan Womack MD PCP - General 12/26/12 documented as of this encounter
--- OUTSIDE RECORDS SUMMARY | 2024-12-09 10:36 | XMS_ITS ---
Author Organization Yonathan Womack MD Address [address] [place] [phone] Care Team Providers Care Overseer Kosher Kitchen Name Role Phone Shanta Yonathan Primary Care Provider [phone] Allergies Allergen (clinical drug ingredient) Drug/Non Drug [...] under contact with [facility] info faxed to [facility] CANO Annette 11/02/2024 11:22:49 AM > was told to refax [facility] An[facility]te 11/05/2024 01:12:28 PM > was told again to refaxed referralNafisa Patti A 11/06/2024 09:12:42 AM >MR NUNEZ ACCEPTED BY [facility] FOR PT BEGINNING 11/07 , SHERINE AT [phone] #2 IF ANY QUESTIONS Referral Priority Routine [...] W/U Status Risk Notes Problem Abnormal gait (03440475) Abnormal gait (R26.9) Active confirmed Vital Signs Blood pressure systolic 102 mm Hg 10/26/19 25 Blood pressure diastolic 60 mm Hg 025 Height 69 in 10/25/2024 Weight 209 lbs 10/25/2024 BMI 30.86 kg/m2 10/25/2024 Encounters Encounter Location Date Provider Diagnosis Yonathan Womack MD [address] [place] [address] [place] [phone] 10/25/2024 Yonathan Womack Shoulder pain M25.519 and [...] Treatment Notes Assessment Notes Shoulder pain neeeds therapist physical apy and getting out of house is almost impossible due to his previous stroke Abnormal gait needs physical thera py Referrals Referral Date Details 10/25/2024 10/25/2024, please e sona and treat [facility] Provider Name:Yonathan mendoza, 12/21/2024 07:45:00 AM, [address] [place] [address], [address] [place] [address], [phone], Provider Name:Yonathan mendoza, 12/28/2024 10:15:00 AM, [address] [place] [address], [address], [phone], Provider Name:Yonathan mendoza, 03/21/2025 07:00:00 AM, [address] [place] [address], [address], [phone], Provider Name:Yonathan mendoza, 09/17/2025 07:45:00 AM, [address], [address], [place], [phone], Provider Name:Yonathan Pan ier, 09/24/2025 01:00:00 PM, [address], [address], [place], [phone], Provider Name:Yonathan Pan janyr, 03/28/2026 10:00:00 AM, [address] [facility], [address], [place], [phone], Progress Notes * STEVEN NUNEZDOB: [birth year] (79 yo M)Acc No.[id number]:10/25/2024 Progress Notes Patient:?STEVEN NUNEZ Provider:?Yonathan Womack MD :1945???Age:79 Y???Sex:Male Jr e:10/25/2024 Address:[address] [place] [address] Subjective: * Chief Complaints: * ???needs referral [...] MD Date:?0 10/25/2024 Generated for Printi ng/Faaarong/eTransmitting on:?12/09/2024 10:35 AM EDT History and Physical Notes * [...]
--- OUTSIDE RECORDS SUMMARY | 2024-12-09 10:36 | XMS_ITS | Encounter Summary ---
Author Organization [facility] Address [address] [place] [address] Care Team Providers Care Research Assistant Professor Name Role Phone Yonathan Womack MD Primary Care Provider [phone]- [phone] Reason for Visit * Reason Onset Date Comments Weight Gain 12/05/2024 irregular heart rate 12/05/2024 Encounter Details Date Type Department Care Team (Late st Contact Info) Description 12/05/2024 Telephone [facility] [address] [place] [address] Eddie Granados MD [address] [place] [address] [address] [place] [address] Weight Gain; irregular heart rate Social History [...] as of this encounter Progress Notes * Smitha Flannery NP - 12/09/2024 8:58 AM EDT Pt called the service with ongoing shortness of breath. He was [place] [facility] [place]. He was quite short of breath. He was told that his x-ray showed that he was full of water. He wasgiven IV lasix in the ER and NOT admitted, but told to increase his lasix again to 40mg BID. He actually took 60mg this morning of lasix. He continues to report HR elevation over 100bpm. Afib with RVR may be driving this CHF. He was quite breathless on the phone. Recommend return to [facility] [place] for IV diuresis, electrolyte monitoring and rate control of his afib. Expect called to [facility], spoke with Dr. 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 * Alycia Westbrook RN - 12/05/2024 9:34 AM EDT I spoke to Russell. He is agreeable to take an extra 40 mg of Furosemide this afternoon and obtain blood work this week at the lab located in [facility]. BMP ordered and faxed to [facility] lab per patient request ([phone]). Confirmation received. I scheduled patient for a [...] y.o. male, followed by Dr. Granados/ ALIE Anguiano with cardiac history of A-fib and [...] a low sodium diet. BP last night /60, HR 65 bpm. This morning, he hasn't [...] nitroglycerin. Please give him a call at [phone] to advise. documented in this encounter Plan of Treatment Upcoming Encounters Date Type Department Care Team (Late st Contact Info) Description 12/20/2024 11:30 AM EDT Office Visit [facility] [address] [place] [address] Michaela Anguiano NP [address] [place] [address] [address] [place] [address] 01/24/2025 9:10 AM EDT Office Visit [address] [place] [address] Michaela Anguiano NP [address] [place] [address] [address] [place] [address] Scheduled Orders Name Type Priority Associated Diagnoses Orde r Schedule Basic metabolic panel Lab Routine Atrial fibrillation, unspecified type (CMS/HCC V24, CMS/HCC V28) Expected: 12/05/2024, Expires: 12/05/2025 documented as of this encounter Visit Diagnoses Diagnosis Atrial fibrillation, unspecified type (CMS/HCC V24, CMS/HCC V28)- Primary documented in this encounter Care Teams Research Assistant Professor Relationship Specialty Start Date End Date Yonathan Womack MD PCP - General 12/26/12 documented as of this encounter
--- OUTSIDE RECORDS SUMMARY | 2024-12-09 10:36 | XMS_ITS | Patient Health Record ---
Author Organization Yonathan Womack MD Address [address] [place], [place] [id number] Care Team Providers Care Order Dispatcher Name Role Phone Yonathan Womack Primary Care Provider [phone] Allergies Allergen (clinical drug ingredient) Drug/Non Drug [...] ff Reviewed date:09/17/2024 05:23:58 PM Interpretation: Performing Lab:[facility], [address] [place] [phone] Notes/Report: White Blood Count 8.3 4.8-10.8 X10*3/uL [...] NRBC Abs Auto 0.000 0.0-0.012 X10*3/uL Comprehensive [place]. Panel Fa st Reviewed date:09/17/2024 05:21:17 PM Interpretation: Performing Lab:[facility], [address] [place] [phone] Notes/Report: Sodium 137 135-145 mmol/L Potassium 4.2 [...] Panel Reviewed date:09/17/2024 05:02:42 PM Interpretation: Performing Lab:[address] [phone] Notes/Report: Triglycerides 85 <150 mg/dL Desirable Triglyceride: [...] Total Reviewed date:09/17/2024 05:02:53 PM Interpretation: Performing Lab:[address] [phone] Notes/Report: Vitamin D 25-OH Total 66.5 >30 [...] A1c Reviewed date:09/17/2024 05:01:59 PM Interpretation: Performing Lab:[facility], [address] [place] [phone] Notes/Report: Hemoglobin A1c % 5.9 <6.0 % [...] average glucose, using the formula of the A4Q-Ttipzms Average Glucose study (ADAG), Diabetes Care, Vol.31,#8, Mar. 2007 INR WHOLE BLOOD POC Reviewed date:01/05/2024 12:45:42 PM Interpretation: Performing Lab:[facility], [address] [place] [phone] Notes/Report: PT, INR - Anti [facility]ag Clinic 2.1 0.9-1.1 METER #: [id number] INTERNATIONAL NORMALIZED RATIO (INR) REFERENCE RANGES Reference [...] OC Reviewed date:01/05/2024 12:51:44 PM Interpretation: Performing Lab:[facility], [address] [place] [phone] Notes/Report: Prothrombin Time Whole Bld POC 25.7 11.1-13.5 sec Complete Blood Count Auto Di ff Reviewed date:01/13/2024 04:12:10 PM Interpretation: Performing Lab:[facility], [address] [place] [phone] Notes/Report: White Blood Count 7.9 4.8-10.8 X10*3/uL [...] INR Reviewed date:01/13/2024 04:05:04 PM Interpretation: Performing Lab:[facility], [address] [place] [phone] Notes/Report: Prothrombin Time 23.8 11.1-13.3 SEC INTERNATIONAL [...] Time Reviewed date:01/13/2024 04:04:44 PM Interpretation: Performing Lab:[facility], [address] [place] [phone] Notes/Report: Partial Thromboplastin Time 38.4 26.0-36.8 SEC For information regarding the monitoring of direct thrombin inhibitors, please refer to Pharmacy. Liver Panel Reviewed date:01/13/2024 04:05:24 PM Interpretation: Performing Lab:[facility], [address] [place] [phone] Notes/Report: Bilirubin Total 0.8 0.0-1.0 mg/dL Bilirubin Direct 0.3 0.0-0.5 mg/dL Aspartate Amino Transferase 18 5-37 U/L Alanine Aminotransferase 16 0-40 U/L Total Protein 6.9 6.5-8.0 g/dL Albumin Level 4.0 3.5-5.0 g/dL Alkaline Phosphatase 72 39-117 U/L Basic Metabolic Panel Reviewed date:01/13/2024 04:06:37 PM Interpretation: Performing Lab:[facility], [address] [place] [phone] Notes/Report: Sodium 138 135-145 mmol/L Potassium 3.8 [...] Glomerular Filt Rate > 60 NOTE: For -Brune[place] individuals, multiply the result by 1.210. Chronic Kidney Disease: Estimated GFR < 60 mL/min/1.73m2 Severe Kidney Disease: Estimated GFR < 15 mL/min/1.73m2 Glucose Random 131 60-115 mg/dL Calcium 9.6 8.4-10.2 mg/dL B Type Natriuretic Peptide Reviewed date:01/13/2024 04:04:32 PM Interpretation: Performing Lab:[facility], [address] [place] [phone] Notes/Report: B Type Natriuretic Peptide 246 <100 pg/mL For those patients who are being treated with Natrecor (nesiritide, recombinant BNP), BNP testing should be performed at least two hours post treatment in order to ensure that only endogenous levels of BNP are detected. US venous duplex LE LT Reviewed date:01/16/2024 01:42:02 PM Interpretation: Performing Lab: Notes/Report: [address] [address] Ultrasound Report Signed Patient: Steven Tiwari MR#: [id number] : 1945 Acct:[id number] Age/Sex: 78 / M ADM Date: 01/13/24 Loc: HO.ED Attending Dr: Ordering Physician: Shae Fernandez Date of Service: 01/13/24 Procedure(s): US venous duplex LE LT Accession Number(s): [id number] cc: Yonathan Womack MD; Shae Fernandez EXAMINATION: [...] in OV> 01/13/24 163 DD/ 1540 TD/TT: Ski Molder: ILIANA [address] [address] Ultrasound Report Signed Patient: Steven Tiwari MR#: [id number] : 1945 Acct:[id number] Age/Sex: 78 / M ADM Date: 01/13/24 Loc: HO.ED Attending Dr: Ordering Physician: Shae Fernandez Date of Service: 01/13/24 Procedure(s): US venous duplex LE LT Accession Number(s): [id number] cc: Yonathan Womack MD; Shae Fernandez EXAMINATION: [...] in OV> 01/13/24 163 DD/ 1540 TD/TT: Ski Molder: ILIANA INR WHOLE BLOOD POC Reviewed date:02/02/2024 11:56:26 AM Interpretation: Performing Lab:[facility], [address] [place] [phone] Notes/Report: PT, INR - Anti Coag Clinic 2.0 0.9-1.1 METER #: [id number] INTERNATIONAL NORMALIZED RATIO (INR) REFERENCE RANGES Reference [...] OC Reviewed date:02/02/2024 11:56:57 AM Interpretation: Performing Lab:[facility], [address] [place] [phone] Notes/Report: Prothrombin Time Whole Bld POC 24.3 11.1-13.5 sec INR WHOLE BLOOD POC Reviewed date:02/21/2024 12:32:10 PM Interpretation: Performing Lab:[facility], [address] [place] [phone] Notes/Report: PT, INR - Anti Coag Clinic 2.6 0.9-1.1 METER #: [id number] INTERNATIONAL NORMALIZED RATIO (INR) REFERENCE RANGES Reference [...] OC Reviewed date:02/21/2024 12:33:44 PM Interpretation: Performing Lab:[facility], [address] [place] [phone] Notes/Report: Prothrombin Time Whole Bld POC 30.9 11.1-13.5 sec INR WHOLE BLOOD POC Reviewed date:03/20/2024 12:25:26 PM Interpretation: Performing Lab:[facility], [address] [place] [phone] Notes/Report: PT, INR - Anti Coag Clinic 2.2 0.9-1.1 METER #: [id number] INTERNATIONAL NORMALIZED RATIO (INR) REFERENCE RANGES Reference [...] OC Reviewed date:03/20/2024 12:37:24 PM Interpretation: Performing Lab:[facility], [address] [place] [phone] Notes/Report: Prothrombin Time Whole Bld POC 26.6 11.1-13.5 sec INR WHOLE BLOOD POC Reviewed date:04/17/2024 12:02:54 PM Interpretation: Performing Lab:[facility], [address] [place] [phone] Notes/Report: PT, INR - Anti Coag Clinic 2.1 0.9-1.1 METER #: [id number] INTERNATIONAL NORMALIZED RATIO (INR) REFERENCE RANGES Reference [...] OC Reviewed date:04/17/2024 11:58:45 AM Interpretation: Performing Lab:[facility], [address] [place] [phone] Notes/Report: Prothrombin Time Whole Bld POC 25.0 11.1-13.5 sec INR WHOLE BLOOD POC Reviewed date:05/15/2024 11:36:59 AM Interpretation: Performing Lab:[facility], [address] [place] [phone] Notes/Report: PT, INR - Anti Coag Clinic 1.8 0.9-1.1 METER #: [id number] INTERNATIONAL NORMALIZED RATIO (INR) REFERENCE RANGES Reference [...] OC Reviewed date:05/15/2024 10:55:33 AM Interpretation: Performing Lab:[facility], [address] [place] [phone] Notes/Report: Prothrombin Time Whole Bld POC 21.1 11.1-13.5 sec INR WHOLE BLOOD POC Reviewed date:05/29/2024 10:08:18 AM Interpretation: Performing Lab:[facility], [address] [place] [phone] Notes/Report: PT, INR - Anti Coag Clinic 2.0 0.9-1.1 METER #: [id number] INTERNATIONAL NORMALIZED RATIO (INR) REFERENCE RANGES Reference [...] OC Reviewed date:05/29/2024 10:08:25 AM Interpretation: Performing Lab:[facility], [address] [place] [phone] Notes/Report: Prothrombin Time Whole Bld POC 24.0 11.1-13.5 sec INR WHOLE BLOOD POC Reviewed date:06/26/2024 10:55:58 AM Interpretation: Performing Lab:[address] [phone] Notes/Report: PT, INR - Anti Coag Clinic 2.6 0.9-1.1 METER #: [id number] INTERNATIONAL NORMALIZED RATIO (INR) REFERENCE RANGES Reference [...] OC Reviewed date:06/26/2024 10:55:20 AM Interpretation: Performing Lab:[facility], [address] [place] [phone] Notes/Report: Prothrombin Time Whole Bld POC 31.3 11.1-13.5 sec INR WHOLE BLOOD POC Reviewed date:07/24/2024 12:43:30 PM Interpretation: Performing Lab:[facility], [address] [place] [phone] Notes/Report: PT, INR - Anti Coag Clinic 2.7 0.9-1.1 METER #: [id number] INTERNATIONAL NORMALIZED RATIO (INR) REFERENCE RANGES Reference [...] OC Reviewed date:07/24/2024 12:43:38 PM Interpretation: Performing Lab:[facility], [address] [place] [phone] Notes/Report: Prothrombin Time Whole Bld POC 32.5 11.1-13.5 sec INR WHOLE BLOOD POC Reviewed date:08/23/2024 12:31:58 PM Interpretation: Performing Lab:[facility], [address] [place] [phone] Notes/Report: PT, INR - Anti Coag Clinic 2.6 0.9-1.1 METER #: [id number] INTERNATIONAL NORMALIZED RATIO (INR) REFERENCE RANGES Reference [...] OC Reviewed date:08/23/2024 12:31:49 PM Interpretation: Performing Lab:[facility], [address] [place] [phone] Notes/Report: Prothrombin Time Whole Bld POC 31.7 11.1-13.5 sec PSA,Total (Free>4and<10) Reviewed date:09/17/2024 05:00:46 PM Interpretation: Performing Lab:[facility], [address] [place] [phone] Notes/Report: PSA,Total (Free>4and<10) 0.21 0.00-4.00 ng/mL A [...] POC Reviewed date:09/20/2024 11:51:44 AM Interpretation: Performing Lab:[facility], [address] [place] [phone] Notes/Report: PT, INR - Anti Coag Clinic 2.2 0.9-1.1 METER #: [id number] INTERNATIONAL NORMALIZED RATIO (INR) REFERENCE RANGES Reference [...] OC Reviewed date:09/20/2024 12:12:38 PM Interpretation: Performing Lab:[facility], [address] [place] [phone] Notes/Report: Prothrombin Time Whole Bld POC 26.6 11.1-13.5 sec INR WHOLE BLOOD POC Reviewed date:10/18/2024 12:44:55 PM Interpretation: Performing Lab:[facility], [address] [place] [phone] Notes/Report: PT, INR - Anti Coag Clinic 2.9 0.9-1.1 METER #: [id number] INTERNATIONAL NORMALIZED RATIO (INR) REFERENCE RANGES Reference [...] OC Reviewed date:10/18/2024 12:44:46 PM Interpretation: Performing Lab:[facility], [address] [place] [phone] Notes/Report: Prothrombin Time Whole Bld POC 34.6 11.1-13.5 sec US renal BI Reviewed date:11/13/2024 12:24:24 PM Interpretation: Performing Lab: Notes/Report: [address] [address] Ultrasound Report Signed Patient: Steven Tiwari MR#: [id number] : 1945 Acct:[id number] Age/Sex: 79 / M ADM Date: 11/12/24 Loc: HO.US Attending Dr: Yonathan Womack MD Ordering Physician: Yonathan Womack MD Date of Service: 11/12/24 Procedure(s): US renal BI Accession Number(s): [id number] cc: Yonathan Womack MD CLINICAL HISTORY: Disorders of adrenal gland US RENAL Comparison: US/DE/SR - US ABDOMEN COMPLETE - 10/06/23 08:38 [...] 11/12/24 1740 DD/ 173 TD/TT: 11/12/24 173 Ski Molder: [place] [address] Ultrasound Report Signed Patient: Steven Tiwari MR#: [id number] : 1945 Acct:[id number] Age/Sex: 79 / M ADM Date: 11/12/24 Loc: HO.US Attending Dr: Yonathan Womack MD Ordering Physician: Yonathan Womack MD Date of Service: 11/12/24 Procedure(s): US evelyne Aranda Accession Number(s): [id number] cc: Yonathan Womack MD CLINICAL HISTORY: Disorders of adrenal gland US RENAL Comparison: US/DE/SR - US ABDOMEN COMPLETE - 10/06/23 08:38 [...] 11/12/24 1740 DD/ 173 TD/TT: 11/12/24 173 Ski Molder: INR WHOLE BLOOD POC Reviewed date:11/19/2024 12:19:08 PM Interpretation: Performing Lab:[facility], [address] [place] [phone] Notes/Report: PT, INR - Anti Coag Clinic 2.7 0.9-1.1 METER #: [id number] INTERNATIONAL NORMALIZED RATIO (INR) REFERENCE RANGES Reference [...] OC Reviewed date:11/19/2024 12:18:23 PM Interpretation: Performing Lab:[facility], [address] [place] [phone] Notes/Report: Prothrombin Time Whole Bld POC 32.8 [...] Referring Provider Last Name Shanta Referring Provider [facility] ed[facility] Referred Provider JEROME URIBE [...] FOR PT BEGINNING 11/07 , SHERINE AT [phone] #2 IF ANY QUESTIONS Referral Priority Routine [...] W/U Status Risk Notes Problem Panic attack (822919684) Panic attack (300.01) Active confirmed Problem Cardiomyopathy (50500075) Cardiomyopathy (425.4) Active confirmed Problem 343744694 Unspecified asth ma, uncomplicated (J45.909) Active confirmed Problem 18053774 Restless leg syn drome (G25.81) Active confirmed Problem Carotid artery disease (314352419) Carotid artery disease (I77.9) Active confirmed Problem 23914561 Vitamin D defici ency (E55.9) Active confirmed Problem 40556378 Anxiety (F41.9) Active confirmed Problem Hypomagnesemia (373106682) Hypomagnesemia (E83.42) Active confirmed Problem 41226809 Other chronic pa in (G89.29) Active confirmed Problem 2473155 Diverticulitis o f large intestine without perforation or abscess with bleeding (K57.33) Active confirmed Problem 216638639 Prostate cancer (C61) Active confirme d Problem 8036501 Prediabetes (R73.09) Active confirmed Problem 389662917 Low HDL (under 4 0) (E78.6) Active confirmed Problem 77284078 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) Active confirmed Problem 476203718 Cervical disc di sease (M50.90) Active confirmed Problem 25965819 Intrinsic eczema (L20.84) Active confirmed Problem 441291142 Gall stones (K80.20) Active confirmed Problem 555404074 History of prost ate cancer (Z85.46) Active confirmed Problem 138965666 Kidney mass (N28.89) Active confirmed Problem 81073631 Dysthymia (F34.1) Active confirmed Problem 755950070 Anticoagulant long-term use (Z79.01) Active confirmed Problem 419722161 Nonalcoholic hepatosteatosis (K76.0) Active confirmed Problem 329621292 History of myoca rdial infarction (I25.2) Active confirmed Problem 42683572 Reflux gastritis (K29.60) Active confirmed Problem 73241064 Sleep apnea, unspecified type (G47.30) Active confirmed Problem 458018385 Acute on chronic systolic congestive heart failure (I50.23) Active confirmed Problem 904213830 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) Active confirmed Problem 722599150 Benign prostatic hyperplasia with lower urinary tract symptoms (N40.1) Active confirmed Problem 267451022 Pure hypercholesterolemia (E78.00) Active confirmed Problem Abnormal gait (53402476) Abnormal gait (R26.9) Active confirmed Problem 6553772 Low calcium leve ls (E83.51) Active confirmed Problem 291325885 Abnormal CT scan , kidney (R93.429) Active confirmed Problem 787410426 On bridging jing tment with lovenox (Z79.01) Active confirmed Problem 338379909 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) Active confirmed Problem 834756120 Atrial fibrillat ion, chronic (I48.20) Active confirmed Problem 413491081 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 Vital Signs Blood pressure diastolic 60 mm Hg 10/25/2024 Height 69 in 10/25/2024 Blood pressure systolic 102 mm Hg 10/25/2024 Weight 209 lbs 10/25/2024 BMI 30.86 kg/m2 10/25/2024 Encounters Encounter Location Date Provider Diagnosis Yonathan Womack MD [address] [place], [place] [id number] 09/17/2024 Yonathan Womack Blood tests for rout ine general physical examination Z00.00 ; Prediabetes R73.09 ; Pure hypercholesterolemia E78.00 ; Prostate cancer C61 ; Vitamin D deficiency E55.9 and Acute on chronic systolic congestive heart failure I50.23 Yonathan Womack MD [address] [place] [id number] 01/19/2024 Yonathan Womack Synovial cyst of lef t popliteal space M71.22 and Acute on chronic systolic congestive heart failure I50.23 Yonathan Womack MD [address] [place] [id number] 02/21/2024 Yonathan Bombardier Pain in left knee M2 5.562 and Other chronic pain G89.29 Yonathan Womack MD [address] [place] [id number] 05/21/2024 Yonathan Womack Acute on chronic sys tolic congestive heart failure I50.23 Yonathan Womack MD [address] [place] [id number] 06/25/2024 Yonathan Womack Right upper quadrant pain R10.11 Yonathan Womack MD [address] [place] [id number] 07/26/2024 Yonathan Womack Acute on chronic sys tolic congestive heart failure I50.23 Yonathan Womack MD [address] [place] [id number] 09/21/2024 Yonathan Womack Elevated BUN R79.9 ; Annual physical exam Z00.00 ; Nonalcoholic hepatosteatosis K76.0 ; Prediabetes R73.09 ; Atrial fibrillation, chronic I48.20 ; Anticoagulant long-term use Z79.01 ; Acute on chronic systolic congestive heart failure I50.23 ; Reflux gastritis K29.60 and Depression screening Z13.31 Yonathan Womack MD [address] [place] [id number] 10/25/2024 Yonathan Womack Shoulder pain M25.51 9 and Abnormal gait R26.9 Yonathan Womack MD [address] [place] [id number] 11/05/2024 Yonathan Womack MD [address] [place] [id number] 12/13/2023 Yonathan Womack MD [address] [place] [id number] 01/24/2024 Yonathan Womack MD [address] [place], [place] [id number] 03/26/2024 Yonathan Womack MD [address] [place] [id number] 04/10/2024 Yonathan Womack MD [address] [place] [id number] 04/26/2024 Yonathan Womack MD [address] [place] [id number] 05/03/2024 Yonathan Womack MD [address] [place] [id number] 07/24/2024 Yonathan Womack MD [address] [place] [id number] 09/04/2024 Yonathan Womack MD [address] [place] [id number] 10/15/2024 Yonathan Womack MD [address] [place] [id number] 10/16/2024 Yonathan Womack Assessments Encounter Date Diagnosis [...] - M25.562) needs wheelchair. is getting [facility]. also needs medline 300 which is a pad because he doesn't have control of urine/ make referral [facility] 02/21/2024 Other chronic pain (ICD-10 - [...] and he is going to go to quality control inspector heading to see what need to be done [...] Details Provider Name:Yonathan mendoza, 12/21/2024 07:45:00 AM, [address] [place] [address], Suite [facility], [place], [place], [phone], Provider Name:Yonathan mendoza, 12/28/2024 10:15:00 AM, [address] [place] [address], Suite [facility], [place], [phone], Provider Name:Yonathan mendoza, 03/21/2025 07:00:00 AM, [address] [place] [address], Suite [facility], [place], [place], [phone], Provider Name:Yonathan mendoza, 09/17/2025 07:45:00 AM, [address] [place] [address], Suite [facility], [place], [place], [phone], Provider Name:Yonathan Pan ier, 09/24/2025 01:00:00 PM, [address], [address], [place], [place], [phone], Provider Name:Yonathan Pan ier, 03/28/2026 10:00:00 AM, [address], [address], [place], [place], [phone], Insurance Providers Payer Name Payer Address Payer Phone Subscriber Number Group Number Insured Name Patient Relationship to Insured Coverage Start Date Coverage End Date [employer] [address] [place] [id number] STEVEN TIWARI Self - patient is the insured [address] [address] [id number] STEVEN TIWARI Self - patient is the insured Medical (General) History Medical History History ICD Code cerebrovascular accident 2006 refuses a stress test due to adverse yenny nt in the past. 05/30/2013 - colonoscopy due in 3 years. refuses to have another 2016
--- OUTSIDE RECORDS SUMMARY | 2024-12-09 10:36 | XMS_ITS ---
Author Organization Yonathan Womack MD Address [address] [place] [phone] Care Team Providers Care Jail Manager Name Role Phone Yonathan Womack Primary Care Provider REASON FOR VISIT HCC Risk Codes 5/9 Encounters Encounter Location Date Provider Diagnosis Yonathan Womack MD [address] [facility] [address] [place] [id number] 11/05/2024 Yonathan Womack Plan Of Treatment Next Appt Details Provider Name:Yonathan mendoza, 12/21/2024 07:45:00 AM, [address] [facility], Suite [facility], [place], [place], [phone], Provider Name:Yonathan mendoza, 12/28/2024 10:15:00 AM, [address] [place] [address], Suite [facility], [place], [place], [phone], Provider Name:Yonathan mendoza, 03/21/2025 07:00:00 AM, [address] [place] [address], [address], [phone], Provider Name:Yonathan Pan janyr, 09/17/2025 07:45:00 AM, [address], [address], [place], [phone], Provider Name:Yonathan Pan reji, 09/24/2025 01:00:00 PM, [address], [address], [place], [phone], Provider Name:Yonathan Pan janyr, 03/28/2026 10:00:00 AM, [address] [place] [address] Drive, [address], [place], [phone], Progress Notes * STEVEN NUNEZDOB: [birth year] (79 yo M)Acc No.[id number]:11/05/2024 Patient:?STEVEN NUNEZ :1945???Age:79 Y???Sex:Male Address:[address] [place] [address], [address] * * Date:?
--- OUTSIDE RECORDS SUMMARY | 2024-12-09 10:36 | XMS_ITS | Clinical Summary ---
Author Organization [address] [place] [address] [place] [phone] Phone Care Team Providers [employer] Name Role Phone Yonathan Womack MD Primary [...] Do not change dietary habits. Managed by [facility]. Active furosemide (LASIX) 20 mg tablet [...] he said he would go to the [facility] ER from our office. He has a ride and will not be driving PVD (peripheral vascular disease) ([facility] V24) 08/09/2023 Overview (06/07/2024): Last Assessment & Plan: History of peripheral vascular disease with known carotid stenosis. Dizzinesses 03/15/2023 HFrEF (heart failure with re duced ejection fraction) ([facility] V24, [facility] V28) 01/06/2023 Overview (06/07/2024): Last Assessment & [...] 2 visits to the emergency room at [facility] for chest pain both times he [...] has side effects from adenosine Atrial fibrillation ([facility] V24, [facility] V28) 1 Overview (06/07/2024): Last Assessment & Plan: History of atrial fibrillation with stroke. High [id number] score remains chronically anticoagulated Assessment & Plan (07/30/2024 8:19 AM EST): Orders: ECG 12 lead Coronary arteriosclerosis in [place] artery 05/26 Overview (06/07/2024): Last Assessment & [...] Type Department Care Team Description 12/05/2024 Telephone [facility] [address] [place] [address] [place] [address] Eddie Granados MD Weight Gain; irregular heart rate 11/29/[address] [facility] [address] [facility] [address] [place] [address] Eddie Granados MD Med Refill (Metoprolol) 11/19/2024 Telephone [facility] [address] [place] [phone] Simone Cantrell MD Medication 11/19/2024 Telephone [facility] [address] [facility] [address] [place] [address] Eddie Granados MD high pulse (High pulse ) 10/11/2024 Telephone [facility] [address] [facility] [address] [place] [address] Eddie Granados MD Med Refill (Furosemide, Sprinolactone ) from Last 3 Months Medical History Medical History Date Comments CVA (cerebral vascular accid ent) ([facility]/HCC V24, [facility]/HCC V28) DX:CVA (cerebral vascular ac cident) ([facility]) Chronic ischemic heart disease D X:Chronic ischemic [...] Description 12/20/2024 11:30 AM EDT Office Visit [facility] [address] [facility] [place] [phone] Michaela Anguiano NP [address] [place] [address] [address] [place] [address] 01/24/2025 9:10 AM EDT Office Visit [facility] [place] [phone] Michaela Anguiano NP [address] [place] [address] [address] [place] [address] Health Maintenance Due Date Last Done Comments [...] MEDICARE ADVANTAGE MEDICAID - [place] Care Teams [employer] Relationship Specialty Start Date End Date Yonathan Womack MD PCP - General 12/26/12
[2024-12-09 10:40] LABS: VBG Base Excess 6.3 mmol/L; VBG HCO3 28 mmol/L (22-26); VBG pCO2 34 mmHg; VBG pH 7.53 (7.32-7.43); VBG pO2 55 mmHg
[2024-12-09 10:40] LABS: Venous Blood Gas Refer to POC result
[2024-12-09 10:44] LABS: Partial Thromboplastin Time 41.3 SEC (26.0-36.8)
[2024-12-09 10:47] LABS: INTERNATIONAL NORM RATIO 2.7 (0.9-1.1); Prothrombin Time 31.9 SEC (10.9-12.4)
[2024-12-09 10:56] LABS: B Type Natriuretic Peptide 1054 pg/mL (<100)
[2024-12-09 10:58] LABS: Alanine Aminotransferase 20 U/L (0-40); Alkaline Phosphatase 69 U/L (39-117); Anion Gap 17 (12-20); Aspartate Amino Transferase 23 U/L (5-37); Blood Urea Nitrogen 24 mg/dL (9-16); Calcium 9.3 mg/dL (8.4-10.2); Carbon Dioxide 22 mmol/L (22-29); Chloride 102 mmol/L (96-108); Creatinine Clr Calc Pharmacy 61.3; Estimated Glomerular Filt Rate > 60; Glucose Random 136 mg/dL (60-115); Lipase 29 U/L (8-78); Magnesium 1.5 mg/dL (1.6-2.6); Potassium 3.5 mmol/L (3.3-5.1); Sodium 137 mmol/L (135-145); Total Protein 6.8 g/dL (6.5-8.0)
[2024-12-09 10:59] LABS: Troponin-I High Sensitivity 53.3 ng/L (<3.5-35.0)
[2024-12-09 11:44] LABS: Influenza A PCR NEGATIVE (Negative); Influenza B PCR NEGATIVE (Negative); Resp Syncy Virus RNA Qual PCR NEGATIVE (Negative); SARS COV2 PCR INHOUSE NEGATIVE (Negative)
[2024-12-09] MEDS: LORazepam 1 MG TABLET PO ×2 (12:57→21:26)
[2024-12-09] MEDS: Furosemide 100 MG/10 ML VIAL 80 MG IVPUSH (12:59)
--- NOTE | 2024-12-09 13:59 | PHA.MEDREC ---
Addendum entered by Consuelo Del Toro RPh 12/09/24 14:27: Reviewed by [facility]. Patient also reported taking three tablets of furosemide before coming to hospital. Original Note: Pharmacy Consult ? Medication Reconciliation Pharmacy has completed the medication reconciliation. Spoke to patient to confirm med list. Patient had a list of medication with him. Patient confirmed Metoprolol succ 50 mg NOT 25 mg. Furosemide 40 mg bid , however claims had Furosimide 20 BID, Warfarin 7.5 mg every day except Wednesdays patient takes 5 mg.
[2024-12-09 14:07] LABS: Appearance Urine Clear; Color Urine Yellow; Glucose Urine UA Negative (Negative); Leukocyte Esterase Urine Negative (Negative); Nitrite Urine Negative (Negative); Urine Blood Negative (Negative); Urine Ketones Negative (Negative); Urine Protein Negative (Neg-Trace)
--- NOTE | 2024-12-09 16:47 | PM.IMHP ---
History of Present Illness Date of Service: 12/09/24 Attending physician on admission: Tete Roach Chief Complaint: SOB Pt is a 79-year-old male with a PMH significant for?paroxysmal AFib on warfarin, HFrEF (25-30% 07/05/2024) secondary to ischemic cardiomyopathy, CAD s/p LA, hx of CVA with residual right-sided deficits, GERD, and anxiety who presents to the ED with?increasing SOB, VAZQUEZ, and orthopnea x1.5 weeks despite increasing home Lasix. SOB especially pronounced with exertion. Reports increased exhaustion and anxiety. Occasional palpitations. Some increased lower leg swelling. Follows with Dr. Granados at [facility] who increased his Lasix from 20 mg b.i.d. to 40 mg b.i.d. around 10 days ago. Despite this patient's symptoms have worsened and he has already presented to the ED 2 times in the past week with similar symptoms -- on 12/06 and again on 12/08 -- each time being discharged back home after receiving Lasix 80mg IV. Earlier today pt spoke with on-call nurse practitioner at Cardiology office who told pt to come to the ED for inpatient diuresing. Pt denies chest pain/pressure. Chronic occasional cough around baseline. Denies fever, chills, nausea, vomiting, abdominal pain. In the ED pt with elevated HR up to 100 and soft BP as low as 100/57. Labs were significant for BNP of 1054 (elevated from prior on 01/13/2024, though similar to previous from the past 4 days) and magnesium 1.5. No leukocytosis. Stable H&H. INR therapeutic at 2.7. Renal function baseline. Hepatic function WNL. Troponin 53.3, similar to prior on 12/08. UA negative for UTI. Tested negative for flu, COVID, RSV. CXR without significant pulmonary vascular congestion, similar to prior on 12/08. EKG demonstrated likely sinus rhythm with first-degree AV block with QTc 637 but no evidence of significant ischemic changes. Pt was treated in the ED with lorazepam and furosemide 80 mg IV. Pt is admitted to the hospital for treatment and further evaluation of acute HFrEF exacerbation that has failed outpatient therapy. Review of Systems Review of Systems: Negative except for that which is stated in the HPI. [facility] Medical History Anxiety Myocardial infarct, old CHF (congestive heart failure) CVA (cerebral vascular accident) A-fib Surgical History History of appendectomy Social History Household Members: None Housing: House Do you presently have visiting nurse or other home services: Yes ([facility]) Alcohol intake: former Patient Tobacco Use Status: Never used Tobacco Smoked in Last 30 Days: No Use of substances other than those prescribed or required for medical reasons: No Currently Displaying Signs/Symptoms of Drug Intoxication Withdrawal: No Any prior treatment program specific to substance use: No Have you been hit, kicked, punched, or otherwise hurt by someone within the past year? If so, by whom?: No Do you feel safe in your current relationship?: No Current Relationship Is there a partner from a previous relationship who is making you feel unsafe now?: No Are you made to feel afraid or neglected: No Advance Directives: No Advance Directives Information Provided: Yes Do you have a plan to hurt others: No Plan Recently lost weight without trying: No How much weight loss: Unsure Eating poorly because of decreased appetite: No Nutrition screen score: 2 Nutrition Risks: No Nutritional Risk service: Yes Current occupational status: disabled Meds Allergies Allergy/AdvReac Type Severity Reaction Status Date / Time adenosine Allergy Severe cardiac, Verified 12/09/24 10:03 elevated BP, Stroke Gadolinium-Containing Allergy Severe red eyes Verified 12/09/24 10:03 Contrast Medi Iodinated Contrast Media Allergy Severe Seizure Verified 12/09/24 10:03 [CONTRAST, IV] carvedilol Allergy Intermediate disorientat Verified 12/09/24 10:03 ion erythromycin base AdvReac Unknown Gut Verified 12/09/24 10:03 pain , Abdominal Pain, GI upset Active Medications: Current Medications Acetaminophen (Acetaminophen 325 Mg Tablet) 650 mg PO Q6H PRN PRN Reason: Pain, Mild 1-3,fever,headache Calcium Carbonate (Calcium Carbonate 750 Mg Tab.Chew) 750 mg PO Q4H PRN PRN Reason: Heartburn Enoxaparin Sodium (Enoxaparin Sodium 40 Mg/0.4 Ml Syringe) 40 mg SUBCUT Q24H TOMI Furosemide (Furosemide 40 Mg/4 Ml Vial) 40 mg IVPUSH BID@0900,1800 [facility]; Protocol Magnesium Sulfate (Magnesium Sulfate/H2o) 2 gm in 50 mls @ 25 mls/hr IV ONCE ONE Stop: 12/09/24 18:35 Magnesium Hydroxide (Milk Of Magnesia 30 Ml Oral.Susp) 30 ml PO DAILY PRN PRN Reason: Constipation Melatonin (Melatonin 3 Mg Tablet) 6 mg PO BEDTIME PRN PRN Reason: Insomnia Sodium Chloride (0.9 % Sodium Chloride Flush 3 Ml Syringe) 3 ml IVFLUSH QSHIFT [facility] Home Medications ?Medication ?Instructions ?Recorded ?Confirmed ?Last Taken ?Type lorazepam 0.5 mg tablet 0.25 mg PO BID PRN Anxiety 11/14/20 12/09/24 12/09/24 History omeprazole 20 mg capsule,delayed 20 mg PO DAILY@0630 11/14/20 12/09/24 12/09/24 History release coenzyme Q10 100 mg capsule 100 mg PO DAILY 04/14/21 12/09/24 12/09/24 History (CoQ-10) carboxymethylcellulose sodium 0.5 1 drp ophthalmic (eye) BID 11/30/22 12/09/24 12/09/24 History % eye drops (Refresh Tears) spironolactone 25 mg tablet 12.5 mg PO BEDTIME 05/19/23 12/09/24 12/09/24 History furosemide 20 mg tablet 40 mg PO BID 05/15/24 12/09/24 12/09/24 History simvastatin 20 mg tablet 10 mg PO DAILY 11/19/24 12/09/24 12/09/24 History metoprolol succinate 50 mg 50 mg PO DAILY 12/06/24 12/09/24 12/09/24 History tablet,extended release 24 hr warfarin 2.5 mg tablet 5 mg PO WE 12/09/24 12/09/24 12/05/24 History warfarin 2.5 mg tablet 7.5 mg PO SUMOTUTHFRSA 12/09/24 12/09/24 12/09/24 History Physical Exam Vital Signs and Narrative: Vital Signs: Last Vital Signs Temp 98 F 12/09/24 16:00 Pulse 88 12/09/24 16:00 Resp 18 12/09/24 16:00 BP 105/54 L 12/09/24 16:00 Pulse Ox 97 12/09/24 16:00 O2 Del Method Room Air 12/09/24 16:00 BMI result Body Mass Index 31.3 General: AOx3, no acute distress Resp: CTA bilaterally CVS: S1, S2, regularly irregular rhythm. GI: +BS, NT, no distention Skin: Warm, dry Neuro: Motor grossly intact bilaterally. Pt with chronic weakness of right upper and lower extremity Extremities: Trace lower extremity pitting edema Psych: Appropriate affect Results Labs 12/09/24 10:30 12/09/24 10:30 Labs: Laboratory Results - last 24 hr 12/09/24 12/09/24 12/09/24 10:30 10:36 11:01 MCV 86.8 MCH 30.6 MCHC 35.2 RDW 13.6 Plt Count 161 MPV 10.5 Immature Gran % (Auto) 0.3 Neut % (Auto) 53.7 Lymph % (Auto) 35.4 [place] % (Auto) 9.2 Eos % (Auto) 1.0 Baso % (Auto) 0.4 Lymph # (Auto) 2.7 [place] # (Auto) 0.7 Eos # (Auto) 0.1 Baso # (Auto) 0.0 Abs Immat Gran (auto) 0.02 Absolute Neuts (auto) 4.1 Absolute Nucleated RBC 0.000 Nucleated RBC % (auto) 0.0 PT 31.9 H INR 2.7 H APTT 41.3 H VBG pH 7.53 H VBG pCO2 34 VBG pO2 55 VBG HCO3 28 H VBG O2 Saturation 87.0 VBG Base Excess 6.3 Anion Gap 17 Estim Creat Clear Calc 61.3 Estimated GFR > 60 Random Glucose 136 H Calcium 9.3 Magnesium 1.5 L Total Bilirubin 1.0 AST 23 ALT 20 Alkaline Phosphatase 69 B-Natriuretic Peptide 1054 H Total Protein 6.8 Albumin 4.0 Lipase 29 Urine Color Urine Appearance Urine pH Ur Specific [place] Urine Protein Urine Glucose (UA) Urine Ketones Urine Blood Urine Nitrite Ur Leukocyte Esterase Influenza Type A (PCR) NEGATIVE Influenza Type B (PCR) NEGATIVE RSV RNA Qual (PCR) NEGATIVE SARS-CoV-2 RNA (RT-PCR) NEGATIVE 12/09/24 14:00 MCV MCH MCHC RDW Plt Count MPV Immature Gran % (Auto) Neut % (Auto) Lymph % (Auto) [place] % (Auto) Eos % (Auto) Baso % (Auto) Lymph # (Auto) [place] # (Auto) Eos # (Auto) Baso # (Auto) Abs Immat Gran (auto) Absolute Neuts (auto) Absolute Nucleated RBC Nucleated RBC % (auto) PT INR APTT VBG pH VBG pCO2 VBG pO2 VBG HCO3 VBG O2 Saturation VBG Base Excess Anion Gap Estim Creat Clear Calc Estimated GFR Random Glucose Calcium Magnesium Total Bilirubin AST ALT Alkaline Phosphatase B-Natriuretic Peptide Total Protein Albumin Lipase Urine Color Yellow Urine Appearance Clear Urine pH 7.0 Ur Specific [place] 1.010 Urine Protein Negative Urine Glucose (UA) Negative Urine Ketones Negative Urine Blood Negative Urine Nitrite Negative Ur Leukocyte Esterase Negative Influenza Type A (PCR) Influenza Type B (PCR) RSV RNA Qual (PCR) SARS-CoV-2 RNA (RT-PCR) Assessment and Plan (1) Acute exacerbation of CHF (congestive heart failure): Status: Resolved Plan Pt is a 79-year-old male with a PMH significant for?paroxysmal AFib on warfarin, HFrEF (25-30% 07/05/2024) secondary to ischemic cardiomyopathy, CAD s/p LA, hx of CVA with residual right-sided deficits, GERD, and anxiety who presents to the ED with?increasing SOB, VAZQUEZ, and orthopnea x1.5 weeks despite increasing home Lasix. Pt was treated in the ED with lorazepam and furosemide 80 mg IV. Pt is admitted to the hospital for treatment and further evaluation of acute HFrEF exacerbation that has failed outpatient therapy. Acute HFrEF exacerbation Pt with increased SOB, VAZQUEZ, orthopnea, LLE x2 weeks, elevated BNP Presented to the ED twice before this week and received Lasix 80mg IV with no resolution of symotoms Follows with Dr. Granados at [facility] Pt received Lasix 80 mg IV in the ED Will treat with Lasix 40 mg IV b.i.d. Continue spironolactone, Entresto Follow lytes, Mag, I/O, daily weights Low-salt diet Echo with LVEF 25-30% on 07/05/2025 Cardiology consult Monitor on telemetry Prolonged QTc EKG with QTc prolonged at 637 We will give Mag 2 g IV Follow on telemetry Avoid QT prolonging agents Paroxysmal AFib Continue warfarin, metoprolol INR currently therapeutic at 2.7 Follow INR daily CAD/HLD Continue statin GERD Continue omeprazole Full Code Attending:?Dr. Roach DVT Prophylaxis: On warfarin Pt will require a hospitalization of at least two nights for treatment of?treatment and further evaluation of acute HFrEF exacerbation that has failed outpatient therapy. Given that pt has already presented twice in the past week to the ED for 1 time doses of IV Lasix without resolution of symptoms, pt will require hospital level care for more aggressive diuresing with IV Lasix and close monitoring of labs and cardiac function. Quality Stroke Does the patient have a stroke diagnosis?: No VTE Prior VTE?: No VTE Risk Level:: Medical - moderate - high VTE Device Contraindication: Treatment Not Indicated VTE Drug Contraindication: N/A - Med Ordered
[2024-12-09] MEDS: Magnesium Sulfate/H2O 2 GM/50 ML PIGGYBACK IV (16:57)
[2024-12-09 20:30] LABS: Glucose, Whole Blood 120 mg/dL (60-115)
[2024-12-09] MEDS: Warfarin Sodium 7.5 MG TABLET PO (21:45)
[2024-12-09] MEDS: Sacubitril/Valsartan 24/26 1 TAB TABLET PO (21:45)
[2024-12-09] MEDS: Spironolactone 25 MG TABLET 12.5 MG PO (21:46)
[2024-12-10] VITALS (8 sets, daily range): BP systolic 98–138; BP diastolic 61–85; PULSE 80–99; RESP 16–18; TEMP 36–36.6; O2SAT 93–99; BMI 30.9
[2024-12-10] MEDS: Omeprazole 20 MG CAPSULE.DR PO (05:54)
[2024-12-10 07:15] LABS: INTERNATIONAL NORM RATIO 2.4 (0.9-1.1); Prothrombin Time 28.1 SEC (10.9-12.4)
[2024-12-10 07:28] LABS: Glucose, Whole Blood 99 mg/dL (60-115)
[2024-12-10 07:30] LABS: Anion Gap 14 (12-20); Blood Urea Nitrogen 29 mg/dL (9-16); Calcium 9.3 mg/dL (8.4-10.2); Carbon Dioxide 27 mmol/L (22-29); Chloride 98 mmol/L (96-108); Creatinine Clr Calc Pharmacy 63.2; Estimated Glomerular Filt Rate > 60; Glucose Random 96 mg/dL (60-115); Magnesium 2.1 mg/dL (1.6-2.6); Potassium 3.4 mmol/L (3.3-5.1); Sodium 136 mmol/L (135-145)
[2024-12-10] MEDS: Metoprolol Succinate ER 50 MG TAB.ER.24H PO (08:53)
[2024-12-10] MEDS: 0.9 % Sodium Chloride Flush 3 ML SYRINGE IVFLUSH ×3 (08:53→20:40)
[2024-12-10] MEDS: Artificial Tears 15 ML DROPS 1 DROP EYE-BOTH (08:53)
[2024-12-10] MEDS: Atorvastatin Calcium 10 MG TABLET PO (08:53)
[2024-12-10 09:01] LABS: MANUAL DIFF FLAG NO
[2024-12-10 09:04] LABS: Basophils Absolute Auto 0.1 X10*3/uL (0.0-0.2); Basophils Percent Auto 0.7 % (0-2); Eosinophils Absolute Auto 0.1 X10*3/uL (0.0-0.4); Eosinophils Percent Auto 1.3 % (0-4); Hematocrit 45.3 % (42.0-52.0); Hemoglobin 15.2 g/dl (14.0-18.0); Imm Gran Abs Auto 0.05 X10*3/uL (0.00-0.03); Imm Gran Pct Auto 0.6 % (0.0-0.4); Lymphocytes Absolute Auto 3.2 X10*3/uL (1.2-4.9); Lymphocytes Percent Auto 34.8 % (20-40); Mean Corpuscular HGB Conc 33.6 g/dl (31.0-36.0); Mean Corpuscular Volume 89.3 fL (80.0-98.0); Mean Platelet Volume 11.3 fL (9.4-12.4); Monocytes Absolute Auto 0.8 X10*3/uL (0.1-1.2); Monocytes Percent Auto 9.2 % (2-11); Neutrophils Absolute Auto 4.8 x10*3/uL (2.0-8.3); Neutrophils Percent Auto 53.4 % (45-73); Platelet Count 161 X10*3/uL (160-400); Red Blood Count 5.07 X10*6/uL (4.60-5.80); Red Cell Distribution Width 13.7 % (11.0-16.0)
[2024-12-10] MEDS: LORazepam 0.5 MG TABLET 0.25 MG PO ×2 (09:36→20:48)
[2024-12-10] MEDS: Milk of Magnesia 30 ML ORAL.SUSP PO (09:36)
[2024-12-10] MEDS: Furosemide 20 MG/2 ML VIAL IVPUSH (09:56)
--- NOTE | 2024-12-10 10:01 | P.PNIM_ITS ---
Subjective Subjective Date of Service: 12/10/24 Interval History: f/u on heart failure exacerbation interval history: still with sob, and swelling in the elgs, BP on lower side Physical Exam 2 Vital Signs: Vital Signs: Last Vital Signs Temp 96.8 F 12/10/24 07:13 Pulse 97 12/10/24 08:53 Resp 16 12/10/24 07:13 BP 98/61 12/10/24 08:54 Pulse Ox 97 12/10/24 07:13 O2 Del Method Room Air 12/10/24 07:13 BMI result Body Mass Index 30.9 Const: Other: General: AO X 3, no acute distress Resp: CTA bilateral CVS: S1,S2,RRR, 2+ leg edema GI: +BS, NT, no distention Skin: No rash Neuro: motor grossly intact Psych: appropriate affect Objective Data Active Medications Acetaminophen (Acetaminophen 325 Mg Tablet) 650 mg PO Q6H PRN PRN Reason: Pain, Mild 1-3,fever,headache Artificial Tears (Artificial Tears 15 Ml Drops) 1 drop EYE-BOTH BID [facility] Last Admin: 12/10/24 08:53 Dose: 1 drop Documented By: GAYLE Atorvastatin Calcium (Atorvastatin Calcium 10 Mg Tablet) 10 mg PO DAILY [facility] Last Admin: 12/10/24 08:53 Dose: 10 mg Documented By: GAYLE Calcium Carbonate (Calcium Carbonate 750 Mg Tab.Chew) 750 mg PO Q4H PRN PRN Reason: Heartburn Furosemide (Furosemide 40 Mg/4 Ml Vial) 40 mg IVPUSH BID@0900,1800 [facility]; Protocol Last Admin: 12/10/24 08:54 Dose: Not Given Documented By: GAYLE Non-Admin Reason: low BP Lorazepam (Lorazepam 0.5 Mg Tablet) 0.25 mg PO BID PRN PRN Reason: Anxiety Last Admin: 12/10/24 09:36 Dose: 0.25 mg Documented By: GAYLE Magnesium Hydroxide (Milk Of Magnesia 30 Ml Oral.Susp) 30 ml PO DAILY PRN PRN Reason: Constipation Last Admin: 12/10/24 09:36 Dose: 30 ml Documented By: GAYLE Melatonin (Melatonin 3 Mg Tablet) 6 mg PO BEDTIME PRN PRN Reason: Insomnia Metoprolol Succinate (Metoprolol Succinate Er 50 Mg Tab.Er.24h) 50 mg PO DAILY [facility]; Protocol Last Admin: 12/10/24 08:53 Dose: 50 mg Documented By: GAYLE Omeprazole (Omeprazole 20 Mg Quintin.) 20 mg PO DAILY@0630 [facility] Last Admin: 12/10/24 05:54 Dose: 20 mg Documented By: MEL Sacubitril/Valsartan (Sacubitril/Valsartan 1 Tab Tablet) 1 tab PO BID [facility]; Protocol Last Admin: 12/10/24 09:04 Dose: Not Given Documented By: GAYLE Non-Admin Reason: Physician Held Med Sodium Chloride (0.9 % Sodium Chloride Flush 3 Ml Syringe) 3 ml IVFLUSH QSHIFT [facility] Last Admin: 12/10/24 08:53 Dose: 3 ml Documented By: GAYLE Spironolactone (Spironolactone 25 Mg Tablet) 12.5 mg PO BEDTIME [facility]; Protocol Last Admin: 12/09/24 21:46 Dose: 12.5 mg Documented By: MEL Warfarin Sodium (Warfarin Sodium 5 Mg Tablet) 5 mg PO We@1800 TOMI Warfarin Sodium (Warfarin Sodium 7.5 Mg Tablet) 7.5 mg PO SuMoTuThFrSa@1800 [facility] Last Admin: 12/09/24 21:45 Dose: 7.5 mg Documented By: MEL Labs 12/10/24 06:46 12/10/24 06:46 Labs: Laboratory Results - last 24 hr 12/09/24 12/09/24 12/09/24 10:30 10:36 11:01 MCV 86.8 MCH 30.6 MCHC 35.2 RDW 13.6 Plt Count 161 MPV 10.5 Immature Gran % (Auto) 0.3 Neut % (Auto) 53.7 Lymph % (Auto) 35.4 [place] % (Auto) 9.2 Eos % (Auto) 1.0 Baso % (Auto) 0.4 Lymph # (Auto) 2.7 [place] # (Auto) 0.7 Eos # (Auto) 0.1 Baso # (Auto) 0.0 Abs Immat Gran (auto) 0.02 Absolute Neuts (auto) 4.1 Absolute Nucleated RBC 0.000 Nucleated RBC % (auto) 0.0 Hold Purple Top PT 31.9 H INR 2.7 H APTT 41.3 H VBG pH 7.53 H VBG pCO2 34 VBG pO2 55 VBG HCO3 28 H VBG O2 Saturation 87.0 VBG Base Excess 6.3 Anion Gap 17 Estim Creat Clear Calc 61.3 Estimated GFR > 60 POC Glucose Random Glucose 136 H Calcium 9.3 Magnesium 1.5 L Total Bilirubin 1.0 AST 23 ALT 20 Alkaline Phosphatase 69 B-Natriuretic Peptide 1054 H Total Protein 6.8 Albumin 4.0 Lipase 29 Urine Color Urine Appearance Urine pH Ur Specific [place] Urine Protein Urine Glucose (UA) Urine Ketones Urine Blood Urine Nitrite Ur Leukocyte Esterase Influenza Type A (PCR) NEGATIVE Influenza Type B (PCR) NEGATIVE RSV RNA Qual (PCR) NEGATIVE SARS-CoV-2 RNA (RT-PCR) NEGATIVE 12/09/24 12/09/24 12/10/24 14:00 20:12 06:46 MCV 89.3 MCH 30.0 MCHC 33.6 RDW 13.7 Plt Count 161 MPV 11.3 Immature Gran % (Auto) 0.6 H Neut % (Auto) 53.4 Lymph % (Auto) 34.8 [place] % (Auto) 9.2 Eos % (Auto) 1.3 Baso % (Auto) 0.7 Lymph # (Auto) 3.2 [place] # (Auto) 0.8 Eos # (Auto) 0.1 Baso # (Auto) 0.1 Abs Immat Gran (auto) 0.05 H Absolute Neuts (auto) 4.8 Absolute Nucleated RBC 0.000 Nucleated RBC % (auto) 0.0 Hold Purple Top SEE NOTE PT 28.1 H INR 2.4 H APTT VBG pH VBG pCO2 VBG pO2 VBG HCO3 VBG O2 Saturation VBG Base Excess Anion Gap 14 Estim Creat Clear Calc 63.2 Estimated GFR > 60 POC Glucose 120 H Random Glucose 96 Calcium 9.3 Magnesium 2.1 Total Bilirubin AST ALT Alkaline Phosphatase B-Natriuretic Peptide Total Protein Albumin Lipase Urine Color Yellow Urine Appearance Clear Urine pH 7.0 Ur Specific [place] 1.010 Urine Protein Negative Urine Glucose (UA) Negative Urine Ketones Negative Urine Blood Negative Urine Nitrite Negative Ur Leukocyte Esterase Negative Influenza Type A (PCR) Influenza Type B (PCR) RSV RNA Qual (PCR) SARS-CoV-2 RNA (RT-PCR) 12/10/24 07:12 MCV MCH MCHC RDW Plt Count MPV Immature Gran % (Auto) Neut % (Auto) Lymph % (Auto) [place] % (Auto) Eos % (Auto) Baso % (Auto) Lymph # (Auto) [place] # (Auto) Eos # (Auto) Baso # (Auto) Abs Immat Gran (auto) Absolute Neuts (auto) Absolute Nucleated RBC Nucleated RBC % (auto) Hold Purple Top PT INR APTT VBG pH VBG pCO2 VBG pO2 VBG HCO3 VBG O2 Saturation VBG Base Excess Anion Gap Estim Creat Clear Calc Estimated GFR POC Glucose 99 Random Glucose Calcium Magnesium Total Bilirubin AST ALT Alkaline Phosphatase B-Natriuretic Peptide Total Protein Albumin Lipase Urine Color Urine Appearance Urine pH Ur Specific [place] Urine Protein Urine Glucose (UA) Urine Ketones Urine Blood Urine Nitrite Ur Leukocyte Esterase Influenza Type A (PCR) Influenza Type B (PCR) RSV RNA Qual (PCR) SARS-CoV-2 RNA (RT-PCR) Assessment and Plan (1) Ischemic cardiomyopathy: Status: Acute (2) A-fib: Status: Acute (3) Diabetes type 2, controlled: Status: Acute (4) Fluid overload: Status: Acute Plan Pt is a 79-year-old male with a PMH significant for?paroxysmal AFib on warfarin, HFrEF (25-30% 07/05/2024) secondary to ischemic cardiomyopathy, CAD s/p [place], hx of CVA with residual right-sided deficits, GERD, and anxiety who presents to the ED with?increasing SOB, VAZQUEZ, and orthopnea x1.5 weeks despite increasing home Lasix. Pt was treated in the ED with lorazepam and furosemide 80 mg IV. Pt is admitted to the hospital for treatment and further evaluation of acute HFrEF exacerbation that has failed outpatient therapy. Acute HFrEF exacerbation, Echo with LVEF 25-30% on 07/05/2024, still with signs and sympotms of heart failure, BP on lower side today continue Lasix, entresto, aldactone and BB if BP allow, low salt diet. Cardiology consult Prolonged QTc EKG with QTc prolonged at 637 given Mag 2 g IV Follow on telemetry Avoid QT prolonging agents Paroxysmal AFib Continue warfarin, metoprolol INR currently therapeutic at 2.7 Follow INR daily CAD/HLD Continue statin GERD Continue omeprazole Full Code Attending:?Dr. Roach DVT Prophylaxis: On warfarin Pt will require a hospitalization of at least two nights for treatment of?treatment and further evaluation of acute HFrEF exacerbation that has failed outpatient therapy. Given that pt has already presented twice in the past week to the ED for 1 time doses of IV Lasix without resolution of symptoms, pt will require hospital level care for more aggressive diuresing with IV Lasix and close monitoring of labs and cardiac function. Quality Stroke Does the patient have a stroke diagnosis?: No VTE Prior VTE?: No VTE Risk Level:: Medical - moderate - high VTE Device Contraindication: Treatment Not Indicated VTE Drug Contraindication: N/A - Med Ordered
--- NOTE | 2024-12-10 10:22 | PM.CNCAR ---
History of Present Illness History of Present Illness Date of Service: 12/10/24 Chief complaint: CHF Exacerbation Narrative: This is a cardiology consultation regarding shortness of breath. Patient is seen at [facility]. Per outpatient notes, history of atrial fibrillation, sleep apnea and possible previous inferior infarct. Chronic anticoagulation due to history of CVA. Apparently, LVEF was in the 25-30% range. Coronary CTA had shown [id number] coronary disease. Current admission is for increasing shortness of breath. He gets apparently good days and bad days. However, recently his breathing has been getting worse and he felt short of breath even resting. Orthopnea symptoms. 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 Otherwise, no clear-cut angina. He has been given IV diuretics. Some improvement since admission. Review of Systems Review of Systems: Yes all other systems are reviewed and are negative Constitutional: Constitutional: Reports as per HPI and Reports no additional constitutional complaints Eyes: Eyes: Reports as per HPI and Denies no additional eye complaints ENT: Denies system reviewed and no additional complaints, except as documented and Reports as per HPI Cardiovascular: Cardiovascular: Reports as per HPI, Reports no additional cardiovascular complaints, Denies acrocyanosis, Denies cool extremities, Denies chest pain, Denies leg edema, Denies lightheadedness, Denies palpitations and Reports dyspnea Respiratory: Respiratory: Reports as per HPI, Denies no additional respiratory complaints and Reports dyspnea Gastrointestinal: Gastrointestinal: Reports as per HPI and Denies no additional gastrointestinal complaints Genitourinary: Genitourinary: Reports no additional male genitourinary complaints and Reports as per HPI Musculoskeletal: Musculoskeletal: Reports no additional musculoskeletal complaints and Reports as per HPI Integumentary/Breasts: Skin/Breast: Reports system reviewed and no additional complaints, except as docu Neurologic: Reports system reviewed and no additional complaints, except as documented and Reports as per HPI Psychiatric: Psychiatric: Reports no additional psychiatric complaints and Reports as per HPI Endocrine: Endocrine: Reports no additional endocrine complaints, Reports as per HPI and Denies palpitations Hematologic/Lymphatic: Hematologic/Lymphatic: Reports no additional hematologic/lymphatic complaints and Reports as per HPI Allergic/Immunologic: Allergic/Immunologic: Reports no additional allergic/immunologic complaints and Reports as per HPI [facility] Past Medical History Medical History Anxiety Myocardial infarct, old CHF (congestive heart failure) CVA (cerebral vascular accident) A-fib Family History Pertinent family history: No pertinent family history Surgical History Surgical History History of appendectomy Social History Social History Household Members: None Housing: House Do you presently have visiting nurse or other home services: Yes ([facility]) Alcohol intake: former Patient Tobacco Use Status: Never used Tobacco Smoked in Last 30 Days: No Use of substances other than those prescribed or required for medical reasons: No Currently Displaying Signs/Symptoms of Drug Intoxication Withdrawal: No Any prior treatment program specific to substance use: No Have you been hit, kicked, punched, or otherwise hurt by someone within the past year? If so, by whom?: No Do you feel safe in your current relationship?: No Current Relationship Is there a partner from a previous relationship who is making you feel unsafe now?: No Are you made to feel afraid or neglected: No Advance Directives: No Advance Directives Information Provided: Yes Do you have a plan to hurt others: No Plan Recently lost weight without trying: No How much weight loss: Unsure Eating poorly because of decreased appetite: No Nutrition screen score: 2 Nutrition Risks: No Nutritional Risk service: Yes Current occupational status: disabled Meds Allergies Allergy/AdvReac Type Severity Reaction Status Date / Time adenosine Allergy Severe cardiac, Verified 12/09/24 10:03 elevated BP, Stroke Gadolinium-Containing Allergy Severe red eyes Verified 12/09/24 10:03 Contrast Medi Iodinated Contrast Media Allergy Severe Seizure Verified 12/09/24 10:03 [CONTRAST, IV] carvedilol Allergy Intermediate disorientat Verified 12/09/24 10:03 ion erythromycin base AdvReac Unknown Gut Verified 12/09/24 10:03 pain , Abdominal Pain, GI upset Active Medications: Current Medications Acetaminophen (Acetaminophen 325 Mg Tablet) 650 mg PO Q6H PRN PRN Reason: Pain, Mild 1-3,fever,headache Artificial Tears (Artificial Tears 15 Ml Drops) 1 drop EYE-BOTH BID [facility] Last Admin: 12/10/24 08:53 Dose: 1 drop Atorvastatin Calcium (Atorvastatin Calcium 10 Mg Tablet) 10 mg PO DAILY [facility] Last Admin: 12/10/24 08:53 Dose: 10 mg Calcium Carbonate (Calcium Carbonate 750 Mg Tab.Chew) 750 mg PO Q4H PRN PRN Reason: Heartburn Furosemide (Furosemide 40 Mg/4 Ml Vial) 40 mg IVPUSH BID@0900,1800 [facility]; Protocol Last Admin: 12/10/24 08:54 Dose: Not Given Lorazepam (Lorazepam 0.5 Mg Tablet) 0.25 mg PO BID PRN PRN Reason: Anxiety Last Admin: 12/10/24 09:36 Dose: 0.25 mg Magnesium Hydroxide (Milk Of Magnesia 30 Ml Oral.Susp) 30 ml PO DAILY PRN PRN Reason: Constipation Last Admin: 12/10/24 09:36 Dose: 30 ml Melatonin (Melatonin 3 Mg Tablet) 6 mg PO BEDTIME PRN PRN Reason: Insomnia Metoprolol Succinate (Metoprolol Succinate Er 50 Mg Tab.Er.24h) 50 mg PO DAILY [facility]; Protocol Last Admin: 12/10/24 08:53 Dose: 50 mg Omeprazole (Omeprazole 20 Mg Capsule.Dr) 20 mg PO DAILY@0630 [facility] Last Admin: 12/10/24 05:54 Dose: 20 mg Sacubitril/Valsartan (Sacubitril/Valsartan 1 Tab Tablet) 1 tab PO BID [facility]; Protocol Last Admin: 12/10/24 09:04 Dose: Not Given Sodium Chloride (0.9 % Sodium Chloride Flush 3 Ml Syringe) 3 ml IVFLUSH QSHIFT [facility] Last Admin: 12/10/24 08:53 Dose: 3 ml Spironolactone (Spironolactone 25 Mg Tablet) 12.5 mg PO BEDTIME [facility]; Protocol Last Admin: 12/09/24 21:46 Dose: 12.5 mg Warfarin Sodium (Warfarin Sodium 5 Mg Tablet) 5 mg PO We@1800 TOMI Warfarin Sodium (Warfarin Sodium 7.5 Mg Tablet) 7.5 mg PO SuMoTuThFrSa@1800 [facility] Last Admin: 12/09/24 21:45 Dose: 7.5 mg Home Medications ?Medication ?Instructions ?Recorded ?Confirmed ?Last Taken ?Type lorazepam 0.5 mg tablet 0.25 mg PO BID PRN Anxiety 11/14/20 12/09/24 12/09/24 History omeprazole 20 mg capsule,delayed 20 mg PO DAILY@0630 11/14/20 12/09/24 12/09/24 History release coenzyme Q10 100 mg capsule 100 mg PO DAILY 04/14/21 12/09/24 12/09/24 History (CoQ-10) carboxymethylcellulose sodium 0.5 1 drp ophthalmic (eye) BID 11/30/22 12/09/24 12/09/24 History % eye drops (Refresh Tears) spironolactone 25 mg tablet 12.5 mg PO BEDTIME 05/19/23 12/09/24 12/09/24 History furosemide 20 mg tablet 40 mg PO BID 05/15/24 12/09/24 12/09/24 History simvastatin 20 mg tablet 10 mg PO DAILY 11/19/24 12/09/24 12/09/24 History metoprolol succinate 50 mg 50 mg PO DAILY 12/06/24 12/09/24 12/09/24 History tablet,extended release 24 hr warfarin 2.5 mg tablet 5 mg PO WE 12/09/24 12/09/24 12/05/24 History warfarin 2.5 mg tablet 7.5 mg PO SUMOTUTHFRSA 12/09/24 12/09/24 12/09/24 History Physical Exam Vital Signs: Vital Signs: Last Vital Signs Temp 96.8 F 12/10/24 07:13 Pulse 97 12/10/24 08:53 Resp 16 12/10/24 07:13 BP 98/61 12/10/24 08:54 Pulse Ox 97 12/10/24 07:13 O2 Del Method Room Air 12/10/24 07:13 BMI result Body Mass Index 30.9 Const: General: comfortable and no acute distress Orientation/consciousness: patient oriented x3 HEENT: Other: Unremarkable Head: Yes normal to inspection Neck: Neck: Yes normal visual inspection Chest: Chest palpation & inspection: normal inspection of the chest Resp: Auscultation: clear to auscultation bilaterally Cardio: Palpation: normal PMI Heart sounds: S1 normal heart sound present, S2 normal heart sound present, no gallops, no murmurs and no rubs GI: Palpation (GI): Soft to palpation Back/Spine/Pelvis: Other: unremarkable Skin: General skin exam: no rashes or lesions noted Neuro: General: patient oriented x3 Extrem: General: Yes normal to inspection Psych: Mental Status: mental status grossly normal Objective Labs and Meds 12/10/24 06:46 12/10/24 06:46 Lab results: Laboratory Results - last 24 hr 12/09/24 12/09/24 12/09/24 10:30 10:36 11:01 WBC 7.7 RBC 4.94 Hgb 15.1 Hct 42.9 MCV 86.8 MCH 30.6 MCHC 35.2 RDW 13.6 Plt Count 161 MPV 10.5 Immature Gran % (Auto) 0.3 Neut % (Auto) 53.7 Lymph % (Auto) 35.4 [place] % (Auto) 9.2 Eos % (Auto) 1.0 Baso % (Auto) 0.4 Lymph # (Auto) 2.7 [place] # (Auto) 0.7 Eos # (Auto) 0.1 Baso # (Auto) 0.0 Abs Immat Gran (auto) 0.02 Absolute Neuts (auto) 4.1 Absolute Nucleated RBC 0.000 Nucleated RBC % (auto) 0.0 Hold Purple Top PT 31.9 H INR 2.7 H APTT 41.3 H VBG pH 7.53 H VBG pCO2 34 VBG pO2 55 VBG HCO3 28 H VBG O2 Saturation 87.0 VBG Base Excess 6.3 Sodium 137 Potassium 3.5 Chloride 102 Carbon Dioxide 22 Anion Gap 17 BUN 24 H Creatinine 1.10 Estim Creat Clear Calc 61.3 Estimated GFR > 60 POC Glucose Random Glucose 136 H Calcium 9.3 Magnesium 1.5 L Total Bilirubin 1.0 AST 23 ALT 20 Alkaline Phosphatase 69 Troponin I High Sens 53.3 H B-Natriuretic Peptide 1054 H Total Protein 6.8 Albumin 4.0 Lipase 29 Urine Color Urine Appearance Urine pH Ur Specific [place] Urine Protein Urine Glucose (UA) Urine Ketones Urine Blood Urine Nitrite Ur Leukocyte Esterase Influenza Type A (PCR) NEGATIVE Influenza Type B (PCR) NEGATIVE RSV RNA Qual (PCR) NEGATIVE SARS-CoV-2 RNA (RT-PCR) NEGATIVE 12/09/24 12/09/24 12/10/24 14:00 20:12 06:46 WBC 9.0 RBC 5.07 Hgb 15.2 Hct 45.3 MCV 89.3 MCH 30.0 MCHC 33.6 RDW 13.7 Plt Count 161 MPV 11.3 Immature Gran % (Auto) 0.6 H Neut % (Auto) 53.4 Lymph % (Auto) 34.8 [place] % (Auto) 9.2 Eos % (Auto) 1.3 Baso % (Auto) 0.7 Lymph # (Auto) 3.2 [place] # (Auto) 0.8 Eos # (Auto) 0.1 Baso # (Auto) 0.1 Abs Immat Gran (auto) 0.05 H Absolute Neuts (auto) 4.8 Absolute Nucleated RBC 0.000 Nucleated RBC % (auto) 0.0 Hold Purple Top SEE NOTE PT 28.1 H INR 2.4 H APTT VBG pH VBG pCO2 VBG pO2 VBG HCO3 VBG O2 Saturation VBG Base Excess Sodium 136 Potassium 3.4 Chloride 98 Carbon Dioxide 27 Anion Gap 14 BUN 29 H Creatinine 1.06 Estim Creat Clear Calc 63.2 Estimated GFR > 60 POC Glucose 120 H Random Glucose 96 Calcium 9.3 Magnesium 2.1 Total Bilirubin AST ALT Alkaline Phosphatase Troponin I High Sens B-Natriuretic Peptide Total Protein Albumin Lipase Urine Color Yellow Urine Appearance Clear Urine pH 7.0 Ur Specific [place] 1.010 Urine Protein Negative Urine Glucose (UA) Negative Urine Ketones Negative Urine Blood Negative Urine Nitrite Negative Ur Leukocyte Esterase Negative Influenza Type A (PCR) Influenza Type B (PCR) RSV RNA Qual (PCR) SARS-CoV-2 RNA (RT-PCR) 12/10/24 07:12 WBC RBC Hgb Hct MCV MCH MCHC RDW Plt Count MPV Immature Gran % (Auto) Neut % (Auto) Lymph % (Auto) [place] % (Auto) Eos % (Auto) Baso % (Auto) Lymph # (Auto) [place] # (Auto) Eos # (Auto) Baso # (Auto) Abs Immat Gran (auto) Absolute Neuts (auto) Absolute Nucleated RBC Nucleated RBC % (auto) Hold Purple Top PT INR APTT VBG pH VBG pCO2 VBG pO2 VBG HCO3 VBG O2 Saturation VBG Base Excess Sodium Potassium Chloride Carbon Dioxide Anion Gap BUN Creatinine Estim Creat Clear Calc Estimated GFR POC Glucose 99 Random Glucose Calcium Magnesium Total Bilirubin AST ALT Alkaline Phosphatase Troponin I High Sens B-Natriuretic Peptide Total Protein Albumin Lipase Urine Color Urine Appearance Urine pH Ur Specific [place] Urine Protein Urine Glucose (UA) Urine Ketones Urine Blood Urine Nitrite Ur Leukocyte Esterase Influenza Type A (PCR) Influenza Type B (PCR) RSV RNA Qual (PCR) SARS-CoV-2 RNA (RT-PCR) ECG Interpretation: EKG shows underlying sinus rhythm, prolonged [place], right bundle-branch block, PVCs. Possible QT prolongation but difficult to calculate. Assessment and Plan (1) Acute on chronic combined systolic and diastolic CHF (congestive heart failure): Status: Acute Plan Echocardiogram-06/2023-LVEF is 25-30%. No significant valvular findings. High sensitivity troponin, 40s and 50s Cardiac BNP about 1000. Overall, treat for acute on chronic heart failure. IV diuretics, guideline based medical therapy for CHF otherwise. Blood pressure is somewhat soft and we can titrate meds accordingly. Discussed with RN; discussed with Dr. Lara. Procedures Date of Service Date of Service: 12/10/24
--- NOTE | 2024-12-10 14:29 | MHC.CM.PN ---
IMM given 12/10. Pt lives alone, states he has [facility] and receives homemaking services 5 days a week. Pt states he uses a cane, walker, and has a wheelchair for when his knee gets really bad. Pts reports he would like to return home once medically cleared, he states his daughter or brother can transport him home. Education provided to pt on HCP, pt declines to complete one at this time. PCP: Dr. Yonathan Womack
[2024-12-10] MEDS: Warfarin Sodium 7.5 MG TABLET PO (17:08)
--- NOTE | 2024-12-10 21:55 | PC.NURSE ---
Pt's BP-102/63 entresto and aldactone held per .
[2024-12-11] VITALS (8 sets, daily range): BP systolic 106–140; BP diastolic 64–94; PULSE 62–93; RESP 16–20; TEMP 36.1–36.6; O2SAT 93–98; BMI 30.2
[2024-12-11] MEDS: Omeprazole 20 MG CAPSULE.DR PO (05:22)
[2024-12-11 07:48] LABS: INTERNATIONAL NORM RATIO 2.8 (0.9-1.1); Prothrombin Time 32.4 SEC (10.9-12.4)
[2024-12-11 07:57] LABS: Anion Gap 13 (12-20); Blood Urea Nitrogen 26 mg/dL (9-16); Calcium 9.4 mg/dL (8.4-10.2); Carbon Dioxide 29 mmol/L (22-29); Chloride 96 mmol/L (96-108); Estimated Glomerular Filt Rate > 60; Glucose Random 116 mg/dL (60-115); Potassium 3.4 mmol/L (3.3-5.1); Sodium 135 mmol/L (135-145)
[2024-12-11] MEDS: LORazepam 0.5 MG TABLET 0.25 MG PO ×2 (08:38→20:45)
[2024-12-11] MEDS: Sacubitril/Valsartan 24/26 1 TAB TABLET PO (08:39)
[2024-12-11] MEDS: Metoprolol Succinate ER 50 MG TAB.ER.24H PO (08:39)
[2024-12-11] MEDS: Atorvastatin Calcium 10 MG TABLET PO (08:39)
[2024-12-11] MEDS: Furosemide 40 MG/4 ML VIAL IVPUSH (08:40)
[2024-12-11] MEDS: Artificial Tears 15 ML DROPS 1 DROP EYE-BOTH (08:40)
[2024-12-11] MEDS: 0.9 % Sodium Chloride Flush 3 ML SYRINGE IVFLUSH ×3 (08:40→20:45)
[2024-12-11] MEDS: Acetaminophen 325 MG TABLET 650 MG PO (09:38)
--- NOTE | 2024-12-11 09:52 | PM.PNCARD ---
Subjective Subjective Date of Service: 12/11/24 Interval history: Patient states that he feels better. Shortness of breath is improved. Overall, getting better. Review of Systems Review of Systems Yes all other systems are reviewed and are negative Constitutional: Reports as per HPI and Reports no additional constitutional complaints Eyes: Reports as per HPI and Denies no additional eye complaints Denies system reviewed and no additional complaints, except as documented and Reports as per HPI Cardiovascular: Reports as per HPI, Reports no additional cardiovascular complaints, Denies acrocyanosis, Denies cool extremities, Denies chest pain, Denies leg edema, Denies lightheadedness, Denies palpitations and Reports dyspnea Respiratory: Reports as per HPI, Denies no additional respiratory complaints and Reports dyspnea Gastrointestinal: Reports as per HPI and Denies no additional gastrointestinal complaints Genitourinary: Reports no additional male genitourinary complaints and Reports as per HPI Musculoskeletal: Reports no additional musculoskeletal complaints and Reports as per HPI Skin/Breast: Reports system reviewed and no additional complaints, except as docu Reports system reviewed and no additional complaints, except as documented and Reports as per HPI Psychiatric: Reports no additional psychiatric complaints and Reports as per HPI Endocrine: Reports no additional endocrine complaints, Reports as per HPI and Denies palpitations Hematologic/Lymphatic: Reports no additional hematologic/lymphatic complaints and Reports as per HPI Allergic/Immunologic: Reports no additional allergic/immunologic complaints and Reports as per HPI Physical Exam Vital Signs: Last Vital Signs Temp 97 F 12/11/24 07:50 Pulse 62 12/11/24 07:50 Resp 18 12/11/24 07:50 BP 126/94 H 12/11/24 08:39 Pulse Ox 97 12/11/24 07:50 O2 Del Method Room Air 12/11/24 07:50 BMI result Body Mass Index 30.2 Const General: comfortable and no acute distress Orientation/consciousness: patient oriented x3 HEENT Other: Unremarkable Head: Yes normal to inspection Neck Neck: Yes normal visual inspection Chest Chest palpation & inspection: normal inspection of the chest Resp Auscultation: clear to auscultation bilaterally Cardio Palpation: normal PMI Heart sounds: S1 normal heart sound present, S2 normal heart sound present, no gallops, no murmurs and no rubs GI Palpation (GI): Soft to palpation Back/Spine/Pelvis Other: unremarkable Skin General skin exam: no rashes or lesions noted Neuro General: patient oriented x3 Extrem General: Yes normal to inspection Psych Mental Status: mental status grossly normal Objective Labs and Meds 12/10/24 06:46 12/11/24 07:19 Lab results: Laboratory Results - last 24 hr 12/11/24 07:19 Hold Purple Top SEE NOTE PT 32.4 H INR 2.8 H Sodium 135 Potassium 3.4 Chloride 96 Carbon Dioxide 29 Anion Gap 13 BUN 26 H Creatinine 1.02 Estim Creat Clear Calc 65.0 Estimated GFR > 60 Random Glucose 116 H Calcium 9.4 Progress Note: A&P Assessment and plan (1) Acute on chronic combined systolic and diastolic CHF (congestive heart failure): Status: Acute (2) NSVT (nonsustained ventricular tachycardia): Status: Acute Plan Echocardiogram-06/2023-LVEF is 25-30%. No significant valvular findings. High sensitivity troponin, 40s and 50s Cardiac BNP about 1000. Telemetry shows underlying sinus rhythm, PVCs, NSVT about 3-5 beats. Overall, being treated for acute on chronic congestive heart failure. For meds, on diuretics; beta-blockers; Entresto; spironolactone. Can add Jardiance. With regard to question of ICD, patient states that he was told not a candidate as he cannot tolerate anesthesia due to prior adverse effects. But no primary documentation for this. We will need to be addressed again as an outpatient. We could consider amiodarone to see if it will suppress the ectopy. Time Spent With Patient Time: Total time managing care of this patient today ____ minutes. Progress Note: Quality Stroke Does the patient have a stroke diagnosis?: No Procedures Date of Service Date of Service: 12/11/24
--- NOTE | 2024-12-11 10:45 | P.PNIM_ITS ---
Subjective Subjective Date of Service: 12/11/24 Interval History: f/u on heart failure exacerbation interval history: less sob, frequent pvcs on monitor Physical Exam 2 Vital Signs: Vital Signs: Last Vital Signs Temp 97 F 12/11/24 07:50 Pulse 62 12/11/24 07:50 Resp 18 12/11/24 07:50 BP 126/94 H 12/11/24 08:39 Pulse Ox 97 12/11/24 07:50 O2 Del Method Room Air 12/11/24 07:50 BMI result Body Mass Index 30.2 Const: Other: General: AO X 3, no acute distress Resp: CTA bilateral CVS: S1,S2,RRR, 2+ leg edema GI: +BS, NT, no distention Skin: No rash Neuro: motor grossly intact Psych: appropriate affect Objective Data Active Medications Acetaminophen (Acetaminophen 325 Mg Tablet) 650 mg PO Q6H PRN PRN Reason: Pain, Mild 1-3,fever,headache Last Admin: 12/11/24 09:38 Dose: 650 mg Documented By: GAYLE Amiodarone HCl (Amiodarone Hcl 200 Mg Tablet) 400 mg PO BID [facility] Artificial Tears (Artificial Tears 15 Ml Drops) 1 drop EYE-BOTH BID [facility] Last Admin: 12/11/24 08:40 Dose: 1 drop Documented By: GAYLE Atorvastatin Calcium (Atorvastatin Calcium 10 Mg Tablet) 10 mg PO DAILY [facility] Last Admin: 12/11/24 08:39 Dose: 10 mg Documented By: GAYLE Calcium Carbonate (Calcium Carbonate 750 Mg Tab.Chew) 750 mg PO Q4H PRN PRN Reason: Heartburn Furosemide (Furosemide 40 Mg/4 Ml Vial) 40 mg IVPUSH BID@0900,1800 [facility]; Protocol Last Admin: 12/11/24 08:40 Dose: 40 mg Documented By: GAYLE Lorazepam (Lorazepam 0.5 Mg Tablet) 0.25 mg PO BID PRN PRN Reason: Anxiety Last Admin: 12/11/24 08:38 Dose: 0.25 mg Documented By: GAYLE Magnesium Hydroxide (Milk Of Magnesia 30 Ml Oral.Susp) 30 ml PO DAILY PRN PRN Reason: Constipation Last Admin: 12/10/24 09:36 Dose: 30 ml Melatonin (Melatonin 3 Mg Tablet) 6 mg PO BEDTIME PRN PRN Reason: Insomnia Metoprolol Succinate (Metoprolol Succinate Er 50 Mg Tab.Er.24h) 50 mg PO DAILY [facility]; Protocol Last Admin: 12/11/24 08:39 Dose: 50 mg Documented By: GAYLE Omeprazole (Omeprazole 20 Mg Capsule.Dr) 20 mg PO DAILY@0630 [facility] Last Admin: 12/11/24 05:22 Dose: 20 mg Documented By: MICAELA Sacubitril/Valsartan (Sacubitril/Valsartan 1 Tab Tablet) 1 tab PO BID [facility]; Protocol Last Admin: 12/11/24 08:39 Dose: 1 tab Documented By: GAYLE Sodium Chloride (0.9 % Sodium Chloride Flush 3 Ml Syringe) 3 ml IVFLUSH QSHIFT [facility] Last Admin: 12/11/24 08:40 Dose: 3 ml Documented By: GAYLE Spironolactone (Spironolactone 25 Mg Tablet) 12.5 mg PO BEDTIME [facility]; Protocol Last Admin: 12/10/24 20:39 Dose: Not Given Documented By: MICAELA Non-Admin Reason: held per Warfarin Sodium (Warfarin Sodium 5 Mg Tablet) 5 mg PO We@1800 [facility] Warfarin Sodium (Warfarin Sodium 7.5 Mg Tablet) 7.5 mg PO SuMoTuThFrSa@1800 [facility] Last Admin: 12/10/24 17:08 Dose: 7.5 mg Documented By: GAYLE Labs 12/10/24 06:46 12/11/24 07:19 Labs: Laboratory Results - last 24 hr 12/11/24 07:19 Hold Purple Top SEE NOTE PT 32.4 H INR 2.8 H Anion Gap 13 Estim Creat Clear Calc 65.0 Estimated GFR > 60 Random Glucose 116 H Calcium 9.4 Assessment and Plan (1) Ischemic cardiomyopathy: Status: Acute (2) A-fib: Status: Acute (3) Diabetes type 2, controlled: Status: Acute (4) Fluid overload: Status: Acute Plan Pt is a 79-year-old male with a PMH significant for?paroxysmal AFib on warfarin, HFrEF (25-30% 07/05/2024) secondary to ischemic cardiomyopathy, CAD s/p TX, hx of CVA with residual right-sided deficits, GERD, and anxiety who presents to the ED with?increasing SOB, VAZQUEZ, and orthopnea x1.5 weeks despite increasing home Lasix. Pt was treated in the ED with lorazepam and furosemide 80 mg IV. Pt is admitted to the hospital for treatment and further evaluation of acute HFrEF exacerbation that has failed outpatient therapy. Acute HFrEF exacerbation, Echo with LVEF 25-30% on 07/05/2024, still with signs and sympotms of heart failure, BP on lower side today continue Lasix, entresto, aldactone and BB if BP allow, low salt diet. Cardiology following, nutritional consult Prolonged QTc EKG with QTc prolonged at 637 given Mag 2 g IV Follow on telemetry Closely monitor, repeat ecg to monitor qtcs Paroxysmal AFib Continue warfarin, metoprolol INR currently therapeutic at 2.8 Follow INR daily CAD/HLD Continue statin GERD Continue omeprazole Full Code DVT Prophylaxis: On warfarin need for inpt: IV diuretics for heart failure, starting amio for arrythmia Discharge tomorrow Quality Stroke Does the patient have a stroke diagnosis?: No VTE Prior VTE?: No VTE Risk Level:: Medical - moderate - high VTE Device Contraindication: Treatment Not Indicated VTE Drug Contraindication: N/A - Med Ordered
[2024-12-11] MEDS: Amiodarone HCL 200 MG TABLET 400 MG PO ×2 (10:46→20:45)
[2024-12-11 11:13] LABS: Magnesium 2.2 mg/dL (1.6-2.6)
--- NOTE | 2024-12-11 13:28 | MHC.CLN ---
CONSULT COMPLETED. SEE TEACHING RECORD
--- NOTE | 2024-12-11 14:15 | MHC.CM.PN ---
EMR reviewed and per MD rounds, pt is not medically cleared for discharge due to management of heart failure on IV lasix, and arrhythmias started on amiodarone. [facility]
[2024-12-11] MEDS: Warfarin Sodium 7.5 MG TABLET PO (17:06)
[2024-12-12] MEDS: Acetaminophen 325 MG TABLET 650 MG PO (01:56)
[2024-12-12 03:27] VITALS: BP 109/67; PULSE 87; RESP 16; TEMP 36.3; O2SAT 97
[2024-12-12 05:21] VITALS: BMI 30.9
[2024-12-12] MEDS: Omeprazole 20 MG CAPSULE.DR PO (05:34)
[2024-12-12 07:16] LABS: INTERNATIONAL NORM RATIO 3.2 (0.9-1.1); Prothrombin Time 37.1 SEC (10.9-12.4)
[2024-12-12 07:20] LABS: Anion Gap 14 (12-20); Blood Urea Nitrogen 25 mg/dL (9-16); Calcium 9.5 mg/dL (8.4-10.2); Carbon Dioxide 28 mmol/L (22-29); Chloride 96 mmol/L (96-108); Creatinine Clr Calc Pharmacy 56.8; Estimated Glomerular Filt Rate 60; Glucose Random 158 mg/dL (60-115); Potassium 3.7 mmol/L (3.3-5.1); Sodium 134 mmol/L (135-145)
[2024-12-12 07:25] VITALS: BP 119/67; PULSE 96; RESP 20; TEMP 36.1; O2SAT 95
--- NOTE | 2024-12-12 08:32 | ECG_ITS ---
Test Reason : ck rhythm Blood Pressure : */* mmHG Vent. Rate : 90 BPM Atrial Rate : 90 BPM P-R Int : 248 ms QRS Dur : 154 ms QT Int : 406 ms P-R-T Axes : 105 -74 22 degrees QTcB Int : 496 ms Sinus rhythm with 1st degree A-V block with Fusion complexes and Premature atrial complexes with Aberrant conduction Right bundle branch block Left anterior fascicular block Bifascicular block Abnormal ECG When compared with ECG of 09-Dec-2024 10:17, Improved PVC frequency Referred By: Anila Lincoln Electronically Signed By: ANILA LINCOLN
[2024-12-12] MEDS: Amiodarone HCL 200 MG TABLET 400 MG PO (09:15)
[2024-12-12] MEDS: Sacubitril/Valsartan 24/26 1 TAB TABLET PO (09:15)
[2024-12-12] MEDS: Furosemide 40 MG TABLET PO (09:15)
[2024-12-12] MEDS: 0.9 % Sodium Chloride Flush 3 ML SYRINGE IVFLUSH (09:16)
[2024-12-12] MEDS: Metoprolol Succinate ER 50 MG TAB.ER.24H PO (09:16)
[2024-12-12] MEDS: Atorvastatin Calcium 10 MG TABLET PO (09:16)
[2024-12-12] MEDS: LORazepam 0.5 MG TABLET 0.25 MG PO (09:21)
--- NOTE | 2024-12-12 09:24 | PM.PNCARD ---
Subjective Subjective Date of Service: 12/12/24 Interval history: Patient states he feels fine. No no specific complaints like angina or shortness of breath. Overall improved. Review of Systems Review of Systems Yes all other systems are reviewed and are negative Constitutional: Reports as per HPI and Reports no additional constitutional complaints Eyes: Reports as per HPI and Denies no additional eye complaints Denies system reviewed and no additional complaints, except as documented and Reports as per HPI Cardiovascular: Reports as per HPI, Reports no additional cardiovascular complaints, Denies acrocyanosis, Denies cool extremities, Denies chest pain, Denies leg edema, Denies lightheadedness, Denies palpitations and Denies dyspnea Respiratory: Reports as per HPI, Denies no additional respiratory complaints and Denies dyspnea Gastrointestinal: Reports as per HPI and Denies no additional gastrointestinal complaints Genitourinary: Reports no additional male genitourinary complaints and Reports as per HPI Musculoskeletal: Reports no additional musculoskeletal complaints and Reports as per HPI Skin/Breast: Reports system reviewed and no additional complaints, except as docu Reports system reviewed and no additional complaints, except as documented and Reports as per HPI Psychiatric: Reports no additional psychiatric complaints and Reports as per HPI Endocrine: Reports no additional endocrine complaints, Reports as per HPI and Denies palpitations Hematologic/Lymphatic: Reports no additional hematologic/lymphatic complaints and Reports as per HPI Allergic/Immunologic: Reports no additional allergic/immunologic complaints and Reports as per HPI Physical Exam Vital Signs: Last Vital Signs Temp 97 F 12/12/24 07:25 Pulse 96 12/12/24 07:25 Resp 20 12/12/24 07:25 BP 119/67 12/12/24 07:25 Pulse Ox 95 12/12/24 07:25 O2 Del Method Room Air 12/12/24 07:25 BMI result Body Mass Index 30.9 Const General: comfortable and no acute distress Orientation/consciousness: patient oriented x3 HEENT Other: Unremarkable Head: Yes normal to inspection Neck Neck: Yes normal visual inspection Chest Chest palpation & inspection: normal inspection of the chest Resp Auscultation: clear to auscultation bilaterally Cardio Palpation: normal PMI Heart sounds: S1 normal heart sound present, S2 normal heart sound present, no gallops, no murmurs and no rubs GI Palpation (GI): Soft to palpation Back/Spine/Pelvis Other: unremarkable Skin General skin exam: no rashes or lesions noted Neuro General: patient oriented x3 Extrem General: Yes normal to inspection Psych Mental Status: mental status grossly normal Objective Labs and Meds 12/10/24 06:46 12/12/24 06:05 Lab results: Laboratory Results - last 24 hr 12/11/24 12/12/24 12/12/24 07:19 06:05 06:31 Hold Purple Top SEE NOTE PT 37.1 H INR 3.2 H Sodium 134 L Potassium 3.7 Chloride 96 Carbon Dioxide 28 Anion Gap 14 BUN 25 H Creatinine 1.18 Estim Creat Clear Calc 56.8 Estimated GFR 60 Random Glucose 158 H Calcium 9.5 Magnesium 2.2 Progress Note: A&P Assessment and plan (1) Acute on chronic combined systolic and diastolic CHF (congestive heart failure): Status: Acute (2) NSVT (nonsustained ventricular tachycardia): Status: Acute Plan Echocardiogram-06/2024-LVEF is 25-30%. No significant valvular findings. High sensitivity troponin, 40s and 50s Cardiac BNP about 1000. Telemetry shows underlying sinus rhythm, PVCs. Overall, being treated for acute on chronic congestive heart failure. For meds, on diuretics; beta-blockers; Entresto; spironolactone. Can add Jardiance. Because of frequent PVCs/short ventricular runs, amiodarone has been started. On telemetry, ventricular ectopy seems somewhat improved. He can do 2 week load followed by maintenance. Follow-up EKGs/Holter through his own panelboard operator. He states he has an appointment coming up within a week with [facility] and advised him to keep that. We will need follow-up thyroid function. He can also discussed about ICD with his primary panelboard operator. Discussed with Dr. Lara. Time Spent With Patient Time: Total time managing care of this patient today ____ minutes. Progress Note: Quality Stroke Does the patient have a stroke diagnosis?: No Procedures Date of Service Date of Service: 12/12/24
[2024-12-12] MEDS: Artificial Tears 15 ML DROPS 1 DROP EYE-BOTH (09:38)
--- NOTE | 2024-12-12 10:30 | P.DS_ITS ---
DS: Providers Provider Date of Service: 12/12/24 Date of admission: 12/09/24 16:32 Date of discharge: 12/12/24 Primary care physician: Yonathan Womack MD Consults: 12/09/24 16:37 Consult to Cardiology Routine Consulting Provider: [facility] Reason for consultation: CHF exacerbation DS: Diagnosis Discharge Diagnosis (1) Acute on chronic combined systolic and diastolic CHF (congestive heart failure): Status: Acute (2) NSVT (nonsustained ventricular tachycardia): Status: Acute DS: Summary Hospital Course Hospital Course: AdmissionHPI Chief Complaint: SOB Pt is a 79-year-old male with a PMH significant for?paroxysmal AFib on warfarin, HFrEF (25-30% 07/05/2024) secondary to ischemic cardiomyopathy, CAD s/p CT, hx of CVA with residual right-sided deficits, GERD, and anxiety who presents to the ED with?increasing SOB, VAZQUEZ, and orthopnea x1.5 weeks despite increasing home Lasix. SOB especially pronounced with exertion. Reports increased exhaustion and anxiety. Occasional palpitations. Some increased lower leg swelling. Follows with Dr. Granados at [facility] who increased his Lasix from 20 mg b.i.d. to 40 mg b.i.d. around 10 days ago. Despite this patient's symptoms have worsened and he has already presented to the ED 2 times in the past week with similar symptoms -- on 12/06 and again on 12/08 -- each time being discharged back home after receiving Lasix 80mg IV. Earlier today pt spoke with on-call nurse practitioner at Cardiology office who told pt to come to the ED for inpatient diuresing. Pt denies chest pain/pressure. Chronic occasional cough around baseline. Denies fever, chills, nausea, vomiting, abdominal pain. In the ED pt with elevated HR up to 100 and soft BP as low as 100/57. Labs were significant for BNP of 1054 (elevated from prior on 01/13/2024, though similar to previous from the past 4 days) and magnesium 1.5. No leukocytosis. Stable H&H. INR therapeutic at 2.7. Renal function baseline. Hepatic function WNL. Troponin 53.3, similar to prior on 12/08. UA negative for UTI. Tested negative for flu, COVID, RSV. CXR without significant pulmonary vascular congestion, similar to prior on 12/08. EKG demonstrated likely sinus rhythm with first- degree AV block with QTc 637 but no evidence of significant ischemic changes. Pt was treated in the ED with lorazepam and furosemide 80 mg IV. Pt is admitted to the hospital for treatment and further evaluation of acute HFrEF exacerbation that has failed outpatient therapy. Hospital course: The patient was admitted and treated for acute on chronic heart failure with reduced ejection fraction (HFrEF). He received IV Lasix during hospitalization and was continued on his baseline heart failure regimen, including Entresto, spironolactone (Aldactone), and metoprolol. Cardiology Evaluation: * Echocardiogram (06/2024): LVEF 25?30%, no significant valvular abnormalities * High-sensitivity troponin: Ranging in the 40s?50s * BNP: Approximately 1000 * Telemetry: Sinus rhythm with frequent PVCs Management Summary: * Treated for acute decompensated heart failure with IV diuretics * Continued on beta-michelle, Entresto, and spironolactone * Jardiance has been added to his home regimen * Due to frequent PVCs and short ventricular runs, amiodarone was started; telemetry has shown some improvement in ectopy. He will complete a 2-week loading dose of 400 mg twice daily, followed by maintenance therapy of 200 mg daily * Follow-up EKG and Holter monitoring to be done by his outpatient vending technician * He has a scheduled follow-up with [facility] within the next week and has been advised to keep that appointment * Thyroid function will need to be monitored due to amiodarone initiation * ICD discussion to occur with his primary vending technician At the time of discharge, he reports overall improvement in symptoms. He will be switched to oral Lasix and discharged on his updated medication regimen. Time Attestation Discharge Coordination Time (in mins): 45 Quality: Safe Use of Opioids Does Pt have an Active Cancer Diagnosis on the Problem List?: No Quality: Stroke Does the patient have a stroke diagnosis?: No Physical Exam Vital Signs: Vital Signs: Last Vital Signs Temp 97 F 12/12/24 07:25 Pulse 96 12/12/24 07:25 Resp 20 12/12/24 07:25 BP 119/67 12/12/24 07:25 Pulse Ox 95 12/12/24 07:25 O2 Del Method Room Air 12/12/24 07:25 BMI result Body Mass Index 30.9 Const: Other: General: AO X 3, no acute distress Resp: CTA bilateral CVS: S1,S2,RRR, 2+ leg edema GI: +BS, NT, no distention Skin: No rash Neuro: motor grossly intact Psych: appropriate affect DS: Data Data Completed and Pending Labs on day of discharge: Laboratory Results - last 24 hr 12/11/24 12/12/24 12/12/24 07:19 06:05 06:31 Hold Purple Top SEE NOTE PT 37.1 H INR 3.2 H Sodium 134 L Potassium 3.7 Chloride 96 Carbon Dioxide 28 Anion Gap 14 BUN 25 H Creatinine 1.18 Estim Creat Clear Calc 56.8 Estimated GFR 60 Random Glucose 158 H Calcium 9.5 Magnesium 2.2 Discharge Plan Discharge Anticipated Discharge Date/Time: 12/12/24 10:44 Patient Disposition: Home Health Service Discharge Diagnosis: Aucte on chronic heart failure Referrals: [facility] [Outside] - 1 Week Yonathan Womack MD [Primary Care Provider] - 1 Week Discharge Medications: New Jardiance 10 mg tablet 10 mg PO DAILY Qty: 90 0RF amiodarone 200 mg Tablet See Rx Instructions .ROUTE .COMPLEX Qty: 130 0RF Rx Instructions: Take 2 tabs twice daily for 13 more days, then after that take 1 tab daily Continued coenzyme Q10 [CoQ-10] 100 mg Capsule 100 mg PO DAILY carboxymethylcellulose sodium [Refresh Tears] 0.5 % Drops 1 drp OPHTHALMIC (EYE) BID Entresto 24-26 mg tablet 1 tab PO BID Qty: 60 0RF warfarin 2.5 mg Tablet 7.5 mg PO SUMOTUTHFRSA warfarin 2.5 mg Tablet 5 mg PO WE lorazepam 0.5 mg tablet 0.25 mg PO BID PRN (Reason: Anxiety) omeprazole 20 mg capsule,delayed release(DR/EC) 20 mg PO DAILY@0630 simvastatin 20 mg tablet 10 mg PO DAILY metoprolol succinate 50 mg tablet extended release 24 hr 50 mg PO DAILY spironolactone 25 mg tablet 12.5 mg PO BEDTIME furosemide 20 mg tablet 40 mg PO BID Discharge Orders: Discharge Order (Routine); Ordered 12/12/24 Ordered By: Max Lara Diet: Diabetic diet Activity on Discharge: As tolerated Stand Alone Forms: Patient Portal Discharge page Print Language: [place] Care Plan Goals: Optimize management of heart failure with reduced EF, control fluid status, reduce arrhythmia burden, and ensure appropriate follow-up for ongoing cole luation and potential ICD consideration. Health Concerns: Acute on chronic heart failure with reduced ejection fraction, frequent PVCs and ventricular ectopy, risk of arrhythmia-related complications, and need for close follow-up to assess for ICD placement Plan of Treatment: Take all heart failure medications as prescribed, including Entresto, metopro lol, spironolactone, Jardiance, and oral Lasix. Continue amiodarone as directed. Follow up with cardiology for heart rhythm monitoring and possible ICD discussion. Monitor for weight gain, swelling, or shortness of breath, and seek care if symptoms worsen. Assessment: See above Discharge Date/Time: 12/12/24 14:27
[2024-12-12 11:27] VITALS: BP 113/61; PULSE 80; RESP 18; TEMP 36.3; O2SAT 95
[2024-12-12] MEDS: Empagliflozin 10 MG TABLET PO (11:35)
--- NOTE | 2024-12-12 13:11 | W.MHC.F2F ---
Service Date Service Date: 12/12/24 Encounter Date of encounter: 12/12/24 Reasons for Services Signs and symptoms assessed: heart failure symptoms, shortness of breath Reason for nursing home: medication management and teach disease management Homebound: Leaving the home is medically contraindicated at this time without the asist of a device and/or another person due th the listed conditions above and below. Reason homebound: shortness of breath with minimal effort Homebound supporting statement: Homeboud due to heart failure with shortness of breath with minimal effort and therefore needs the assistance of another person Certification: Based on the above findings, I certify that this patient is confined to the home and needs intermittent nursing home care, physical therapy and/or speech therapy, or continues to need occupational therapy. The patient is under my care, and I have initiated the establishment of the plan of care. The patient will be followed by a physician who will periodically review the plan of care. Time Spent With Patient Time: Total time managing care of this patient today ____ minutes.
--- NOTE | 2024-12-12 13:19 | MHC.CM.PN ---
Patient has been medically cleared for dc to home today, with services. Patient is active with [facility], who has been notified of today's dc. Last IMM was addressed on 12/10/2024.
--- NOTE | 2024-12-12 13:34 | MHC.CM.PN ---
CM met with Patient and his Daughter at bedside, to review the dc plan (home today/resume [facility]); both are in agreement with the plan.
== END 2024-12-12 14:27 | disposition home health service (06) | DRG 292 ==
LOC: HO.ED 13:16 → HO.EDOVER 16:53 → HO.IMC 17:43
PROVIDERS: Admitting Provider Student in an Organized Health Care Education/Training Program; Emergency Provider Emergency Medicine Emergency Medical Services; PCP Internal Medicine; Visit Provider Internal Medicine
DX: I50.23 Acute on chronic systolic (congestive) heart failure (principal); I47.20 Ventricular tachycardia, unspecified; I69.351 Hemiplegia and hemiparesis following cerebral infarction affecting right dominant side; I25.5 Ischemic cardiomyopathy; I49.3 Ventricular premature depolarization; R94.31 Abnormal electrocardiogram [ECG] [EKG]; I48.0 Paroxysmal atrial fibrillation; I25.10 Atherosclerotic heart disease of native coronary artery without angina pectoris; E78.5 Hyperlipidemia, unspecified; K21.9 Gastro-esophageal reflux disease without esophagitis; Z20.822 Contact with and (suspected) exposure to COVID-19; Z79.01 Long term (current) use of anticoagulants; Z79.899 Other long term (current) drug therapy
CPT/HCPCS: 0241U; 36415; 71045; 71046; 80048; 80053; 80076; 81001; 81003; 82803; 82947; 83690; 83735; 83880; 84484; 85025; 85610; 85730; 86140; 93005; 96374; 99283; 99285; J1938; J1940; J3475

== ENCOUNTER → 2024-12-09 10:07 | Outpatient (BNV) | payer MEDICARE, MEDICAID, SELFPAY | PROVIDERS: Emergency Provider Emergency Medicine Emergency Medical Services; PCP Internal Medicine; Visit Provider Radiology Diagnostic Radiology | DX: R06.00 Dyspnea, unspecified (principal) | CPT/HCPCS: 71045 ==

== ENCOUNTER 2024-12-09 16:32 | Outpatient (BNV) | payer MEDICARE, MEDICAID, SELFPAY | END 2024-12-12 08:32 | PROVIDERS: Admitting Provider Student in an Organized Health Care Education/Training Program; Emergency Provider Emergency Medicine Emergency Medical Services; PCP Internal Medicine; Visit Provider Internal Medicine | DX: I45.2 Bifascicular block (principal) | CPT/HCPCS: 93010 ==

== ENCOUNTER → 2024-12-09 16:32 | Outpatient (BNV) | payer MEDICARE, MEDICAID, SELFPAY | PROVIDERS: Admitting Provider Student in an Organized Health Care Education/Training Program; Emergency Provider Emergency Medicine Emergency Medical Services; PCP Internal Medicine; Visit Provider Internal Medicine | DX: I50.43 Acute on chronic combined systolic (congestive) and diastolic (congestive) heart failure (principal) | CPT/HCPCS: 93010; 99222 ==

== ENCOUNTER → 2024-12-09 16:32 | Outpatient (BNV) | payer MEDICARE, MEDICAID, SELFPAY | PROVIDERS: Admitting Provider Student in an Organized Health Care Education/Training Program; Emergency Provider Emergency Medicine Emergency Medical Services; PCP Internal Medicine; Visit Provider Student in an Organized Health Care Education/Training Program | DX: I50.43 Acute on chronic combined systolic (congestive) and diastolic (congestive) heart failure (principal); I47.29 Other ventricular tachycardia | CPT/HCPCS: 99223; 99232; 99239; G0180 ==

== ENCOUNTER 2024-12-13 22:34 | Emergency (ER) | payer MEDICARE, MEDICAID, SELFPAY ==
--- NOTE | ~2024-12-13 | XR_ITS ---
CLINICAL HISTORY: cough 1 view chest x-ray. Comparison: CR - XR CHEST 1V - 12/09/24 10:11 EDT Findings: No consolidation, pneumothorax, or effusion. Heart size is mildly enlarged. Impression: 1. Mild cardiomegaly. Otherwise, no acute cardiopulmonary process. No focal pulmonary consolidation. This document has been electronically signed by: Ramin Montoya MD on 12/14/2024 04:36:17
[2024-12-13 22:39] VITALS: BP 142/80; PULSE 88; O2SAT 97
[2024-12-13 22:42] VITALS: BP 109/68; PULSE 86; RESP 18; TEMP 36.6; O2SAT 95; BMI 30.4
[2024-12-14] VITALS (15 sets, daily range): BP systolic 81–103; BP diastolic 43–66; PULSE 62–92; RESP 14–18; TEMP 36.6–36.7; O2SAT 92–99
--- NOTE | 2024-12-14 00:17 | ED.GENADULT ---
HPI - General Adult General Chief complaint: Allergic Reaction Stated complaint: loss of appetite, dry mouth, taking new meds Time Seen by Provider: 12/13/24 23:49 Source: patient Mode of arrival: ambulatory Limitations: no limitations History of Present Illness ED Provider: HPI narrative: 79-year-old male with a past medical history of anxiety, MA, CHFwith reduced ejection fraction EF of 25-30% secondary to ischemic cardiomyopathy (07/05/2024), CVA, AFib on Coumadin, GERD, on Lasix on lorazepam for anxiety comes here has a feeling mouth is very dry feel very anxious but able to drink fluids in the ER Related Data Home Medications ?Medication ?Instructions ?Recorded ?Confirmed lorazepam 0.5 mg tablet 0.25 mg PO BID PRN Anxiety 11/14/20 12/13/24 omeprazole 20 mg capsule,delayed 20 mg PO DAILY@0630 11/14/20 12/13/24 release coenzyme Q10 100 mg capsule 100 mg PO DAILY 04/14/21 12/13/24 (CoQ-10) carboxymethylcellulose sodium 0.5 1 drp ophthalmic (eye) BID 11/30/22 12/13/24 % eye drops (Refresh Tears) spironolactone 25 mg tablet 12.5 mg PO BEDTIME 05/19/23 12/13/24 furosemide 20 mg tablet 40 mg PO BID 05/15/24 12/13/24 simvastatin 20 mg tablet 10 mg PO DAILY 11/19/24 12/13/24 metoprolol succinate 50 mg 50 mg PO DAILY 12/06/24 12/13/24 tablet,extended release 24 hr warfarin 2.5 mg tablet 7.5 mg PO .COMPLEX 12/13/24 12/13/24 Previous Rx's ?Medication ?Instructions ?Recorded sacubitril 24 mg-valsartan 26 mg 1 tab PO BID #60 tabs 12/01/22 tablet (Entresto) amiodarone 200 mg tablet See Rx Instructions .Route 12/12/24 .COMPLEX #130 tabs empagliflozin 10 mg tablet 10 mg PO DAILY #90 tabs 12/12/24 (Jardiance) Allergies Allergy/AdvReac Type Severity Reaction Status Date / Time adenosine Allergy Severe cardiac, Verified 12/13/24 22:44 elevated BP, Stroke Gadolinium-Containing Allergy Severe red eyes Verified 12/13/24 22:44 Contrast Medi Iodinated Contrast Media Allergy Severe Seizure Verified 12/13/24 22:44 [CONTRAST, IV] carvedilol Allergy Intermediate disorientat Verified 12/13/24 22:44 ion erythromycin base AdvReac Unknown Gut Verified 12/13/24 22:44 pain , Abdominal Pain, GI upset PMFSH Past Medical History Medical History Anxiety Myocardial infarct, old CHF (congestive heart failure) CVA (cerebral vascular accident) A-fib Surgical History History of appendectomy Social History Social History Household Members: None Housing: House Do you presently have visiting nurse or other home services: Yes ([facility]) Alcohol intake: former Patient Tobacco Use Status: Never used Tobacco Smoked in Last 30 Days: No Use of substances other than those prescribed or required for medical reasons: No Advance Directives: No Advance Directives Information Provided: Yes Do you have a plan to hurt others: No Plan service: Yes Current occupational status: disabled Physical Exam ED Vital Signs: Vital Signs - 24 hr 12/13/24 22:42 12/14/24 01:46 12/14/24 01:49 Temperature 97.8 F Pulse Rate 86 62 Respiratory Rate 18 18 Blood Pressure 109/68 86/55 L 83/43 L Pulse Oximetry 95 93 Oxygen Delivery Method Room Air Room Air 12/14/24 03:36 12/14/24 03:52 12/14/24 04:33 Temperature 97.9 F Pulse Rate 92 62 Respiratory Rate 18 16 Blood Pressure 82/48 L 81/46 L 93/47 L Pulse Oximetry 94 92 Oxygen Delivery Method Room Air Room Air 12/14/24 04:51 12/14/24 06:33 12/14/24 06:40 Temperature 98.1 F Pulse Rate 82 69 Respiratory Rate 17 17 Blood Pressure 96/61 87/49 L 93/45 L Pulse Oximetry 94 94 Oxygen Delivery Method Room Air Room Air 12/14/24 07:13 12/14/24 07:59 12/14/24 08:15 Temperature 98.0 F Pulse Rate 76 70 72 Respiratory Rate 18 18 Blood Pressure 97/59 L 94/61 93/48 L Pulse Oximetry 96 96 Oxygen Delivery Method Room Air Room Air 12/14/24 08:16 12/14/24 08:16 12/14/24 09:40 Temperature 97.9 F Pulse Rate 81 81 77 Respiratory Rate 18 Blood Pressure 96/57 L 97/58 L 92/52 L Pulse Oximetry 97 Oxygen Delivery Method Room Air 12/14/24 11:51 Temperature 97.9 F Pulse Rate 79 Respiratory Rate 14 Blood Pressure 103/66 Pulse Oximetry 99 Oxygen Delivery Method Room Air BMI result Body Mass Index 30.4 Course Course Course Narrative: feels better eating food at this time would stop jardiance, hold lasix/spironolactone continue entresto and amiodarone ortho negative eating food feels fine plan to DC 12/14/24 1224pm Dee daughter aware states dad is not a diabetic Medications Administered Discontinued Medications Generic Name Dose Route Start Last Admin Trade Name Freq PRN Reason Stop Dose Admin Sodium Chloride 1,000 mls @ 999 mls/hr 12/14/24 01:40 12/14/24 04:20 Ns IV 12/14/24 02:40 Infused .Q1H1M ONE Infusion Sodium Chloride 1,000 mls @ 999 mls/hr 12/14/24 05:41 12/14/24 07:20 Ns IV 12/14/24 06:41 Infused .Q1H1M ONE Infusion Lorazepam 1 mg 12/14/24 00:15 12/14/24 00:27 Lorazepam 1 Mg Tablet PO 12/14/24 00:16 1 mg ONCE ONE Administration Midodrine 5 mg 12/14/24 03:35 12/14/24 03:52 Midodrine Hcl 5 Mg Tablet PO 12/14/24 03:36 5 mg ONCE ONE Administration Medical Decision Making Medical Decision Making MDM Narrative: Patient's anxiety noted to be hypovolemic after arrival as he taking furosemide at home received a 1 L of IV fluids still blood pressure in high 80s urinated only once 100 cc will give another Litre of fluids 655 am Patient's blood pressure stable still receiving 2 L of IV fluids patient is on 40 mg furosemide twice a day will decrease the dose to 20 twice a day will hold the furosemide today patient is signed out Dr. Charles pending re-evaluation before discharge Differential Diagnosis Differential Diagnoses: The differential diagnosis associated with the presentation includes Lab Data MDM Lab Attestation statement: I reviewed the patient's lab results. 12/14/24 03:50 12/14/24 03:50 Labs: Lab Results 12/14/24 12/14/24 Range/Units 03:50 04:48 WBC 8.0 (4.8-10.8) X10*3/uL RBC 4.36 L (4.60-5.80) X10*6/uL Hgb 13.2 L (14.0-18.0) g/dl Hct 38.2 L (42.0-52.0) % MCV 87.6 (80.0-98.0) fL MCH 30.3 (27.0-33.0) pg MCHC 34.6 (31.0-36.0) g/dl RDW 13.3 (11.0-16.0) % Plt Count 132 L (160-400) X10*3/uL MPV 10.7 (9.4-12.4) fL Immature Gran % (Auto) 0.4 (0.0-0.4) % Neut % (Auto) 54.9 (45-73) % Lymph % (Auto) 33.9 (20-40) % [place] % (Auto) 9.3 (2-11) % Eos % (Auto) 1.0 (0-4) % Baso % (Auto) 0.5 (0-2) % Lymph # (Auto) 2.7 (1.2-4.9) X10*3/uL [place] # (Auto) 0.7 (0.1-1.2) X10*3/uL Eos # (Auto) 0.1 (0.0-0.4) X10*3/uL Baso # (Auto) 0.0 (0.0-0.2) X10*3/uL Abs Immat Gran (auto) 0.03 (0.00-0.03) X10*3/uL Absolute Neuts (auto) 4.4 (2.0-8.3) x10*3/uL Absolute Nucleated RBC 0.000 (0.0-0.012) X10*3/uL Nucleated RBC % (auto) 0.0 (0.0-0.2) /100WBC PT 43.8 H (10.9-12.4) SEC INR 3.7 H (0.9-1.1) Sodium 135 (135-145) mmol/L Potassium 3.8 (3.3-5.1) mmol/L Chloride 99 (96-108) mmol/L Carbon Dioxide 26 (22-29) mmol/L Anion Gap 14 (12-20) BUN 26 H (9-16) mg/dL Creatinine 1.28 (0.5-1.4) mg/dL Estim Creat Clear Calc 52.0 Estimated GFR 54 Random Glucose 114 (60-115) mg/dL Calcium 8.8 D (8.4-10.2) mg/dL Total Bilirubin 1.2 H (0.0-1.0) mg/dL AST 24 (5-37) U/L ALT 17 (0-40) U/L Alkaline Phosphatase 65 (39-117) U/L Troponin I High Sens 43.6 H (<3.5-35.0) ng/L Total Protein 5.9 L (6.5-8.0) g/dL Albumin 3.6 (3.5-5.0) g/dL Urine Color Yellow Urine Appearance Clear Urine pH 5.5 (5.0-9.0) Ur Specific [place] 1.020 (1.005-1.025) Urine Protein Negative (Neg-Trace) mg/dL Urine Glucose (UA) >=1000 H (Negative) mg/dL Urine Ketones Negative (Negative) mg/dL Urine Blood Negative (Negative) Urine Nitrite Negative (Negative) Ur Leukocyte Esterase Negative (Negative) Urine RBC 0-2 (0-2) /HPF Urine WBC 0-5 (0-5) /HPF Ur Squamous Epith Cells 0-2 (0-2) /HPF Urine Bacteria None Seen (None Seen) Hyaline Casts 0-2 (0-2) /LPF Independent Interpretation I performed an independent interpretation of an: EKG Interpretation: Sinus rhythm ventricular rate 80 beats per minute RBBB left anterior fascicular block occasional PVCs no acute ST elevation acute ischemic changes Discharge Plan Discharge Clinical Impression: Anxiety, Hypovolemia Patient Disposition: Home, Self-Care Instructions: Dehydration (ED), Anxiety (ED) Additional Instructions: Do not take water pill for 2 days (lasix and spironolactone) hold metoprolol for 24 hours STOP JARDIANCE okay to take the entresto and amiodarone starting tomorrow as long as blood pressure top number is above 90. when you start the furosemide (lasix) start at 20mg twice a day unless you see significant leg edema Restrict the fluid intake to 1.5 L a day Follow up with your PCP Prescriptions: No Action coenzyme Q10 [CoQ-10] 100 mg Capsule 100 mg PO DAILY carboxymethylcellulose sodium [Refresh Tears] 0.5 % Drops 1 drp OPHTHALMIC (EYE) BID Entresto 24-26 mg tablet 1 tab PO BID Qty: 60 0RF Jardiance 10 mg tablet 10 mg PO DAILY Qty: 90 0RF amiodarone 200 mg Tablet See Rx Instructions .ROUTE .COMPLEX Qty: 130 0RF Rx Instructions: Take 2 tabs twice daily for 13 more days, then after that take 1 tab daily warfarin 2.5 mg tablet 7.5 mg PO .COMPLEX Protocol: Dose Management Condition: Tuesday (Week One) Dose/Route: 7.5 mg Instruction: 3 x 2.5 mg tablets Condition: Tuesday Dose/Route: 7.5 mg Instruction: 3 x 2.5 mg tablets Condition: Tuesday Dose/Route: 7.5 mg Instruction: 3 x 2.5 mg tablets Condition: Tuesday Dose/Route: 5 mg Instruction: 2 x 2.5 mg tablets Condition: Dose/Route: 5 mg Instruction: 2 x 2.5 mg tablets Condition: Tuesday Dose/Route: 7.5 mg Instruction: 3 x 2.5 mg tablets Condition: Tuesday Dose/Route: 7.5 mg Instruction: 3 x 2.5 mg tablets Condition: Tuesday (Week Two) Dose/Route: 5 mg Instruction: 2 x 2.5 mg tablets Condition: Tuesday Dose/Route: 7.5 mg Instruction: 3 x 2.5 mg tablets Condition: Tuesday Dose/Route: 7.5 mg Instruction: 3 x 2.5 mg tablets Condition: Tuesday Dose/Route: 5 mg Instruction: 2 x 2.5 mg tablets Condition: Dose/Route: 7.5 mg Instruction: 3 x 2.5 mg tablets Condition: Tuesday Dose/Route: 7.5 mg Instruction: 3 x 2.5 mg tablets Condition: Tuesday Dose/Route: 7.5 mg Instruction: 3 x 2.5 mg tablets Protocol Text: Adjustment Start Date: 12/13/24 INR Value: 3.2 INR Date: 12/12/24 Recheck Date: 12/15/24 Additional Instructions: REVIEW FOOD LIST, CALL WITH MED OR HEALTH CHANGES - MAKE SURE TO EAT WEEKLY GREENS, THE NEW MED AMIODARONE CAN RAISE YOUR INR AND YOUR WARFARIN DOSE IS GOING TO BE DECREASED. Rx Instructions: 7.5MG X 6 DAYS/ 5MG X 1 DAY; DOSE ADJUSTMENTS WILL BE MADE DUE TO AMIODARONE LOADING DOSE lorazepam 0.5 mg tablet 0.25 mg PO BID PRN (Reason: Anxiety) omeprazole 20 mg capsule,delayed release(DR/EC) 20 mg PO DAILY@0630 simvastatin 20 mg tablet 10 mg PO DAILY metoprolol succinate 50 mg tablet extended release 24 hr 50 mg PO DAILY spironolactone 25 mg tablet 12.5 mg PO BEDTIME furosemide 20 mg tablet 40 mg PO BID Print Language: Malaysian
[2024-12-14] MEDS: LORazepam 1 MG TABLET PO (00:27)
[2024-12-14] MEDS: 0.9 % Sodium Chloride 1,000 ML 999 ML IV ×2 (02:00→05:44)
--- NOTE | 2024-12-14 03:27 | ECG_ITS ---
Test Reason : BRADYCARDIA Blood Pressure : */* mmHG Vent. Rate : 80 BPM Atrial Rate : * BPM P-R Int : * ms QRS Dur : 156 ms QT Int : 530 ms P-R-T Axes : * -55 18 degrees QTcB Int : 611 ms Normal sinus rhythm with prolonged [place] Right bundle branch block Left anterior fascicular block Bifascicular block Abnormal ECG When compared with ECG of 12-Dec-2024 08:40, No significant changes seen Referred By: Madi Benedict Electronically Signed By: ANILA LINCOLN
[2024-12-14] MEDS: Midodrine HCl 5 MG TABLET PO (03:52)
[2024-12-14 03:55] LABS: MANUAL DIFF FLAG NO
[2024-12-14 03:58] LABS: Basophils Percent Auto 0.5 % (0-2); Eosinophils Absolute Auto 0.1 X10*3/uL (0.0-0.4); Hematocrit 38.2 % (42.0-52.0); Hemoglobin 13.2 g/dl (14.0-18.0); Imm Gran Abs Auto 0.03 X10*3/uL (0.00-0.03); Imm Gran Pct Auto 0.4 % (0.0-0.4); Lymphocytes Absolute Auto 2.7 X10*3/uL (1.2-4.9); Lymphocytes Percent Auto 33.9 % (20-40); Mean Corpuscular HGB Conc 34.6 g/dl (31.0-36.0); Mean Corpuscular Hemoglobin 30.3 pg (27.0-33.0); Mean Corpuscular Volume 87.6 fL (80.0-98.0); Mean Platelet Volume 10.7 fL (9.4-12.4); Monocytes Absolute Auto 0.7 X10*3/uL (0.1-1.2); Monocytes Percent Auto 9.3 % (2-11); Neutrophils Absolute Auto 4.4 x10*3/uL (2.0-8.3); Neutrophils Percent Auto 54.9 % (45-73); Platelet Count 132 X10*3/uL (160-400); Red Blood Count 4.36 X10*6/uL (4.60-5.80); Red Cell Distribution Width 13.3 % (11.0-16.0)
[2024-12-14 04:02] LABS: INTERNATIONAL NORM RATIO 3.7 (0.9-1.1); Prothrombin Time 43.8 SEC (10.9-12.4)
[2024-12-14 04:19] LABS: Troponin-I High Sensitivity 43.6 ng/L (<3.5-35.0)
[2024-12-14 04:21] LABS: Alanine Aminotransferase 17 U/L (0-40); Albumin Level 3.6 g/dL (3.5-5.0); Alkaline Phosphatase 65 U/L (39-117); Anion Gap 14 (12-20); Aspartate Amino Transferase 24 U/L (5-37); Bilirubin Total 1.2 mg/dL (0.0-1.0); Blood Urea Nitrogen 26 mg/dL (9-16); Calcium 8.8 mg/dL (8.4-10.2); Carbon Dioxide 26 mmol/L (22-29); Chloride 99 mmol/L (96-108); Estimated Glomerular Filt Rate 54; Glucose Random 114 mg/dL (60-115); Potassium 3.8 mmol/L (3.3-5.1); Sodium 135 mmol/L (135-145); Total Protein 5.9 g/dL (6.5-8.0)
[2024-12-14 04:57] LABS: Appearance Urine Clear; Color Urine Yellow; Glucose Urine UA >=1000 mg/dL (Negative); Leukocyte Esterase Urine Negative (Negative); Nitrite Urine Negative (Negative); PH 5.5 (5.0-9.0); UMIC TRIGGER UACC YES; Urine Blood Negative (Negative); Urine Ketones Negative (Negative); Urine Protein Negative (Neg-Trace)
[2024-12-14 05:00] LABS: Bacteria Urine None Seen (None Seen); Hyaline Casts Urine 0-2 /LPF (0-2); RBC Urine 0-2 /HPF (0-2); Squamous Epithelial Cell Urine 0-2 /HPF (0-2); WBC Urine 0-5 /HPF (0-5)
== END 2024-12-14 13:10 | disposition home or self-care (01) ==
PROVIDERS: Emergency Provider Internal Medicine; PCP Internal Medicine
DX: F41.9 Anxiety disorder, unspecified (principal); E86.1 Hypovolemia; I48.0 Paroxysmal atrial fibrillation; I50.43 Acute on chronic combined systolic (congestive) and diastolic (congestive) heart failure; Z86.73 Personal history of transient ischemic attack (TIA), and cerebral infarction without residual deficits; Z79.02 Long term (current) use of antithrombotics/antiplatelets; Z79.01 Long term (current) use of anticoagulants; Z79.899 Other long term (current) drug therapy
CPT/HCPCS: 36415; 71045; 80053; 81001; 84484; 85025; 85610; 93005; 99285

== ENCOUNTER → 2024-12-14 03:27 | Outpatient (BNV) | payer MEDICARE, MEDICAID, SELFPAY | PROVIDERS: Emergency Provider Internal Medicine; PCP Internal Medicine; Visit Provider Internal Medicine | DX: I45.2 Bifascicular block (principal) | CPT/HCPCS: 93010 ==

== ENCOUNTER → 2024-12-14 03:33 | Outpatient (BNV) | payer MEDICARE, MEDICAID, SELFPAY | PROVIDERS: Emergency Provider Internal Medicine; PCP Internal Medicine; Visit Provider Radiology Diagnostic Radiology | DX: I51.7 Cardiomegaly (principal) | CPT/HCPCS: 71045 ==

== ENCOUNTER 2024-12-14 21:13 | Inpatient (IN) | payer MEDICARE, MEDICAID, SELFPAY ==
--- NOTE | 2024-12-14 | ECG_ITS ---
Test Reason : SOB Blood Pressure : */* mmHG Vent. Rate : 111 BPM Atrial Rate : 111 BPM P-R Int : 160 ms QRS Dur : 156 ms QT Int : 390 ms P-R-T Axes : * -66 7 degrees QTcB Int : 530 ms Normal sinus rhythm with a demand pacemaker venticular bigeminy Right bundle branch block Left anterior fascicular block Bifascicular block Abnormal ECG When compared with ECG of 14-Dec-2024 03:31, maria esther noted. Referred By: Generic ED Physician Electronically Signed By: ANILA LINCOLN
--- NOTE | ~2024-12-14 | XR_ITS ---
CLINICAL HISTORY: shortness of breath 1 view chest x-ray. Comparison: CR - XR CHEST 1V - 12/14/24 03:52 EDT Findings: Evaluation of the bilateral lung bases is mildly limited by overlying structures external to the patient. No focal pulmonary consolidation, pneumothorax, or significant pleural effusion identified. Heart size is mildly enlarged. Impression: 1. Mild cardiomegaly. Otherwise, no radiographic evidence for an acute cardiopulmonary process. No focal pulmonary consolidation. This document has been electronically signed by: Ramin Montoya MD on 12/14/2024 22:13:33
[2024-12-14 21:14] VITALS: BP 149/89; PULSE 120; RESP 22; TEMP 36.9; O2SAT 96; BMI 27.1
[2024-12-14 21:33] LABS: MANUAL DIFF FLAG NO
[2024-12-14 21:36] LABS: Basophils Percent Auto 0.4 % (0-2); Eosinophils Absolute Auto 0.1 X10*3/uL (0.0-0.4); Eosinophils Percent Auto 0.8 % (0-4); Hematocrit 39.7 % (42.0-52.0); Hemoglobin 13.8 g/dl (14.0-18.0); Imm Gran Abs Auto 0.04 X10*3/uL (0.00-0.03); Imm Gran Pct Auto 0.4 % (0.0-0.4); Lymphocytes Percent Auto 22.9 % (20-40); Mean Corpuscular HGB Conc 34.8 g/dl (31.0-36.0); Mean Corpuscular Hemoglobin 30.3 pg (27.0-33.0); Mean Corpuscular Volume 87.3 fL (80.0-98.0); Mean Platelet Volume 11.1 fL (9.4-12.4); Monocytes Absolute Auto 0.7 X10*3/uL (0.1-1.2); Monocytes Percent Auto 7.9 % (2-11); Neutrophils Percent Auto 67.6 % (45-73); Platelet Count 163 X10*3/uL (160-400); Red Blood Count 4.55 X10*6/uL (4.60-5.80); Red Cell Distribution Width 13.6 % (11.0-16.0); White Blood Count 8.9 X10*3/uL (4.8-10.8)
--- NOTE | 2024-12-14 21:40 | ED.GENADULT ---
HPI - General Adult General Chief complaint: Dyspnea Stated complaint: SOB Time Seen by Provider: 12/14/24 21:40 History of Present Illness ED Provider: Mandy AMATO narrative: The patient is a 79-year-old male with a history of atrial fibrillation on warfarin who also has an ischemic cardiomyopathy. The patient has been having problems with shortness of breath for the last week. He came to the hospital on December 06 for shortness of breath and was given furosemide with improvement and discharged. He returned again on December 08 for shortness of breath and was again treated and discharged. He returned on December 09 and was admitted to the hospital and treated for congestive heart failure. He was discharged on December 12. He returned early this morning on December 14 and he was felt to have anxiety and dehydration related to all the diuresis. He was given 2 L of IV fluids this morning and was discharged. He returns tonight because he is feeling short of breath again. He is also feeling nauseated. No fever, sweats, chills. Related Data Home Medications ?Medication ?Instructions ?Recorded ?Confirmed lorazepam 0.5 mg tablet 0.25 mg PO BID PRN Anxiety 11/14/20 12/14/24 omeprazole 20 mg capsule,delayed 20 mg PO DAILY@0630 11/14/20 12/14/24 release coenzyme Q10 100 mg capsule 100 mg PO DAILY 04/14/21 12/14/24 (CoQ-10) carboxymethylcellulose sodium 0.5 1 drp ophthalmic (eye) BID 11/30/22 12/14/24 % eye drops (Refresh Tears) spironolactone 25 mg tablet 12.5 mg PO BEDTIME 05/19/23 12/14/24 simvastatin 20 mg tablet 10 mg PO DAILY 11/19/24 12/14/24 metoprolol succinate 50 mg 50 mg PO DAILY 12/06/24 12/14/24 tablet,extended release 24 hr warfarin 2.5 mg tablet 7.5 mg PO .COMPLEX 12/13/24 12/14/24 amiodarone 200 mg tablet See Rx Instructions .Route .COMPLEX 12/14/24 12/14/24 furosemide 20 mg tablet 20 mg PO BID 12/14/24 12/14/24 Previous Rx's ?Medication ?Instructions ?Recorded sacubitril 24 mg-valsartan 26 mg 1 tab PO BID #60 tabs 12/01/22 tablet (Entresto) Allergies Allergy/AdvReac Type Severity Reaction Status Date / Time adenosine Allergy Severe cardiac, Verified 12/14/24 21:17 elevated BP, Stroke Gadolinium-Containing Allergy Severe red eyes Verified 12/14/24 21:17 Contrast Medi Iodinated Contrast Media Allergy Severe Seizure Verified 12/14/24 21:17 [CONTRAST, IV] carvedilol Allergy Intermediate disorientat Verified 12/14/24 21:17 ion erythromycin base AdvReac Unknown Gut Verified 12/14/24 21:17 pain , Abdominal Pain, GI upset Review of Systems Review of Systems: Yes all other systems are reviewed and are negative [facility] Past Medical History Medical History Anxiety Myocardial infarct, old CHF (congestive heart failure) CVA (cerebral vascular accident) A-fib Surgical History History of appendectomy Social History Social History Household Members: None Housing: House Do you presently have visiting nurse or other home services: Yes ([facility]) Alcohol intake: former Patient Tobacco Use Status: Never used Tobacco Advance Directives: No Advance Directives Information Provided: No Do you have a plan to hurt others: No Plan service: Yes Current occupational status: disabled Physical Exam ED Vital Signs: Vital Signs - 24 hr 12/14/24 21:14 12/14/24 22:46 Temperature 98.5 F 98.0 F Pulse Rate 120 H 87 Respiratory Rate 22 H 16 Blood Pressure 149/89 H 109/67 Pulse Oximetry 96 95 Oxygen Delivery Method Room Air Room Air BMI result Body Mass Index 27.1 Const Other: 79-year-old male who was awake and alert and seems quite anxious. He is complaining of feeling very short of breath. He is not really exhibiting a great deal of increased work of breathing. HENMT Other: Face is symmetrical, mucous membranes moist Eyes General: appearance normal, both eyes and all related structures Neck Neck: Yes normal visual inspection and Yes full ROM Resp Other: Some crackles at the bases, no gross increased work of breathing Cardio Other: The patient had an irregular rate and rhythm GI Other: Abdomen is soft and nontender Skin Other: Skin is pale and dry Neuro Other: The patient is awake and alert. He has an anxious affect but a normal mental status otherwise. Cranial nerves are grossly intact. He moves his extremities symmetrically. No focal neurological deficit. Extrem Other: No pitting edema Medications Administered Discontinued Medications Generic Name Dose Route Start Last Admin Trade Name Johnny PRN Reason Stop Dose Admin Furosemide 40 mg 12/14/24 22:51 12/14/24 23:00 Furosemide 40 Mg/4 Ml Vial IVPUSH 12/14/24 22:52 40 mg STAT STA Administration Protocol Metoclopramide HCl 5 mg 12/14/24 22:51 12/14/24 23:00 Metoclopramide Hcl 10 Mg/2 Ml Vial IVPUSH 12/14/24 22:52 5 mg ONCE ONE Administration Medical Decision Making Medical Decision Making [facility] [place] Narrative: The patient year-old male who presents to the emergency room for the 5th time in the last 8 days. Has a history of congestive heart failure. He has a an ischemic cardiomyopathy with a poor ejection fraction. He also has atrial fibrillation and is on warfarin. At his 3rd presentation to the emergency room he was hospitalized for 3 days and discharged. He was treated for CHF as an inpatient. Approximately 24 hours prior to presenting tonight he had come to the emergency room a day after discharge. At that time it was felt that he might has been over diuresed and he was given 2 L of IV fluids. He was discharged from the emergency room about 8 hours before returning more short of breath. The patient did not take any was regular medications today. The patient was given 40 mg of furosemide with a good urine output. He felt considerably better I performed a bedside echocardiogram. I think the patient has a fairly poor fraction. There is a small pericardial effusion than which I do not think his hemodynamically significant. EKG shows what I think is more likely to be bigeminy then electrical alternans. The patient's last echocardiogram of the hospital here was about 6 months ago. The patient will be admitted for further care given his multiple presentations. Lab Data 12/14/24 21:27 12/14/24 21:27 Labs: Lab Results 12/14/24 12/14/24 12/14/24 Range/Units 21:27 22:36 23:51 WBC 8.9 (4.8-10.8) X10*3/uL RBC 4.55 L (4.60-5.80) X10*6/uL Hgb 13.8 L (14.0-18.0) g/dl Hct 39.7 L (42.0-52.0) % MCV 87.3 (80.0-98.0) fL MCH 30.3 (27.0-33.0) pg MCHC 34.8 (31.0-36.0) g/dl RDW 13.6 (11.0-16.0) % Plt Count 163 (160-400) X10*3/uL MPV 11.1 (9.4-12.4) fL Immature Gran % (Auto) 0.4 (0.0-0.4) % Neut % (Auto) 67.6 (45-73) % Lymph % (Auto) 22.9 (20-40) % [place] % (Auto) 7.9 (2-11) % Eos % (Auto) 0.8 (0-4) % Baso % (Auto) 0.4 (0-2) % Lymph # (Auto) 2.0 (1.2-4.9) X10*3/uL [place] # (Auto) 0.7 (0.1-1.2) X10*3/uL Eos # (Auto) 0.1 (0.0-0.4) X10*3/uL Baso # (Auto) 0.0 (0.0-0.2) X10*3/uL Abs Immat Gran (auto) 0.04 H (0.00-0.03) X10*3/uL Absolute Neuts (auto) 6.0 (2.0-8.3) x10*3/uL Absolute Nucleated RBC 0.000 (0.0-0.012) X10*3/uL Nucleated RBC % (auto) 0.0 (0.0-0.2) /100WBC PT 45.3 H (10.9-12.4) SEC INR 3.9 H (0.9-1.1) Sodium 134 L (135-145) mmol/L Potassium 3.5 (3.3-5.1) mmol/L Chloride 100 (96-108) mmol/L Carbon Dioxide 21 L (22-29) mmol/L Anion Gap 17 (12-20) BUN 27 H (9-16) mg/dL Creatinine 1.46 H (0.5-1.4) mg/dL Estim Creat Clear Calc 45.7 Estimated GFR 47 Random Glucose 149 H (60-115) mg/dL Calcium 9.2 (8.4-10.2) mg/dL Magnesium 1.7 (1.6-2.6) mg/dL Total Bilirubin 1.1 H (0.0-1.0) mg/dL AST 29 (5-37) U/L ALT 25 (0-40) U/L Alkaline Phosphatase 89 (39-117) U/L Troponin I High Sens 55.1 H 83.6 H D (<3.5-35.0) ng/L B-Natriuretic Peptide 1238 H 998 H (<100) pg/mL Total Protein 6.4 L (6.5-8.0) g/dL Albumin 3.9 (3.5-5.0) g/dL Critical Care Time Critical Care Time Critical Care Time: Yes Total Critical Care Time: 35 Attestation: The patient was critically ill with a high probability of imminent or life-threatening deterioration. ?I spent greater than 30 minutes of discontinuous time evaluating the patient, delivering critical care at the bedside, discussing evaluating data with consultants. ?Critical care time does not include time spent performing separately billable procedures or teaching. ?Time spent performing critical care with 35 minutes. Discharge Plan Discharge Clinical Impression: Congestive heart failure Patient Disposition: Admitted As Inpatient Print Language: Pashto
--- NOTE | 2024-12-14 21:50 | MHC.EDTECH ---
Pt given ice chips, OK per Dr. Galvan.
[2024-12-14 21:52] LABS: Alanine Aminotransferase 25 U/L (0-40); Albumin Level 3.9 g/dL (3.5-5.0); Alkaline Phosphatase 89 U/L (39-117); Anion Gap 17 (12-20); Aspartate Amino Transferase 29 U/L (5-37); Bilirubin Total 1.1 mg/dL (0.0-1.0); Blood Urea Nitrogen 27 mg/dL (9-16); Calcium 9.2 mg/dL (8.4-10.2); Carbon Dioxide 21 mmol/L (22-29); Chloride 100 mmol/L (96-108); Creatinine Clr Calc Pharmacy 45.7; Estimated Glomerular Filt Rate 47; Glucose Random 149 mg/dL (60-115); Potassium 3.5 mmol/L (3.3-5.1); Sodium 134 mmol/L (135-145); Total Protein 6.4 g/dL (6.5-8.0)
[2024-12-14 21:57] LABS: B Type Natriuretic Peptide 1238 pg/mL (<100)
[2024-12-14 21:58] LABS: Troponin-I High Sensitivity 55.1 ng/L (<3.5-35.0)
[2024-12-14 22:46] VITALS: BP 109/67; PULSE 87; RESP 16; TEMP 36.7; O2SAT 95
[2024-12-14 22:51] LABS: INTERNATIONAL NORM RATIO 3.9 (0.9-1.1); Prothrombin Time 45.3 SEC (10.9-12.4)
[2024-12-14] MEDS: Furosemide 40 MG/4 ML VIAL IVPUSH (23:00)
[2024-12-14] MEDS: Metoclopramide HCl 10 MG/2 ML VIAL 5 MG IVPUSH (23:00)
[2024-12-14 23:04] LABS: B Type Natriuretic Peptide 998 pg/mL (<100)
[2024-12-14 23:05] LABS: Magnesium 1.7 mg/dL (1.6-2.6)
[2024-12-15] VITALS (9 sets, daily range): BP systolic 104–126; BP diastolic 58–75; PULSE 80–99; RESP 16–20; TEMP 36.1–37.1; O2SAT 93–97; BMI 28.2; BMI 28.1
[2024-12-15 00:18] LABS: Troponin-I High Sensitivity 83.6 ng/L (<3.5-35.0)
--- NOTE | 2024-12-15 01:17 | MHC.EDTECH ---
Emptied Pt's urinal twice: first time was 400ml and second 1000mls
--- NOTE | 2024-12-15 04:18 | MHC.EDTECH ---
Emptied 500mls from urinal
--- NOTE | 2024-12-15 06:22 | PM.IMHP ---
History of Present Illness Date of Service: 12/15/24 Attending physician on admission: Luis A Cochran Chief Complaint: SOB, orthopnea Patient is a 79-year-old male with a pmhx significant for?paroxysmal AFib on warfarin, HFrEF (25-30% 07/05/2024) secondary to ischemic cardiomyopathy, CAD s/p AL, hx of CVA with residual right-sided deficits, GERD, and anxiety, with multiple recent ED visits as well as admission from 12/09-12/12 for CHF exacerbations. The patient reports again with shortness of breath and orthopnea for the 5th time this week. On the he received IV Lasix in the ED and was able to go home and returned again on the with the same symptoms and improvement with IV Lasix and again discharged home. From the to he was admitted and diuresed, consulted by Cardiology, Jardiance and amiodarone added and discharged home. The patient reports that he can not tolerate the amiodarone or Jardiance states they are ?poison ?, causing severe nausea and making him feel unwell. He reported again yesterday morning and was thought to be over diuresed and given 2 L of IV fluids and discharged home after feeling better. He reported back to the ED a few hours later and is now here still with shortness of breath and orthopnea. He received 40 mg of Lasix in the ED. a bedside ultrasound was performed that showed a small pericardial effusion, repeat ultrasound with improvement. Review of Systems Constitutional: Constitutional: Denies body ache(s), Denies chills, Denies fatigue, Denies fever(s) and Denies headache(s) Eyes: Eyes: Denies change in vision and Denies photophobia ENT: Denies headache(s), Denies nasal congestion, Denies nasal discharge and Denies sore throat Cardiovascular: Cardiovascular: Denies chest pain, Reports rapid heart rate, Denies leg edema, Denies lightheadedness and Reports dyspnea Respiratory: Respiratory: Denies cough, Reports dyspnea and Denies wheezing Gastrointestinal: Gastrointestinal: Denies diarrhea, Reports nausea and Denies vomiting Genitourinary: Genitourinary: Denies dysuria and Denies urinary urgency Musculoskeletal: Musculoskeletal: Denies myalgias Integumentary/Breasts: Skin/Breast: Denies rash Neurologic: Denies confusion and Denies headache(s) Psychiatric: Psychiatric: Reports anxiety and Denies confusion Endocrine: Endocrine: Denies fatigue Hematologic/Lymphatic: Hematologic/Lymphatic: Denies easy bleeding and Denies easy bruising Allergic/Immunologic: Allergic/Immunologic: Denies wheezing [facility] Medical History Acute on chronic combined systolic and diastolic CHF (congestive heart failure) Orthopnea Diabetes type 2, controlled Anxiety Myocardial infarct, old CHF (congestive heart failure) CVA (cerebral vascular accident) A-fib Functional capacity: independent ambulation Surgical History History of appendectomy Social History Household Members: None Housing: House Do you presently have visiting nurse or other home services: Yes ([facility]) Alcohol intake: former Patient Tobacco Use Status: Never used Tobacco Smoked in Last 30 Days: No Use of substances other than those prescribed or required for medical reasons: No Advance Directives: No Advance Directives Information Provided: No Do you have a plan to hurt others: No Plan service: Yes Current occupational status: disabled Narrative: No smoking, alcohol or drug use Meds Allergies Allergy/AdvReac Type Severity Reaction Status Date / Time adenosine Allergy Severe cardiac, Verified 12/14/24 21:17 elevated BP, Stroke Gadolinium-Containing Allergy Severe red eyes Verified 12/14/24 21:17 Contrast Medi Iodinated Contrast Media Allergy Severe Seizure Verified 12/14/24 21:17 [CONTRAST, IV] carvedilol Allergy Intermediate disorientat Verified 12/14/24 21:17 ion erythromycin base AdvReac Unknown Gut Verified 12/14/24 21:17 pain , Abdominal Pain, GI upset Active Medications: Current Medications Acetaminophen (Acetaminophen 325 Mg Tablet) 975 mg PO Q6H PRN PRN Reason: Pain, Mild 1-3,fever,headache Calcium Carbonate (Calcium Carbonate 750 Mg Tab.Chew) 750 mg PO Q4H PRN PRN Reason: Heartburn Furosemide (Furosemide 40 Mg/4 Ml Vial) 40 mg IVPUSH BID@0900,1800 TOMI; Protocol Magnesium Hydroxide (Milk Of Magnesia 30 Ml Oral.Susp) 30 ml PO DAILY PRN PRN Reason: Constipation Melatonin (Melatonin 3 Mg Tablet) 6 mg PO BEDTIME PRN PRN Reason: Insomnia Sodium Chloride (0.9 % Sodium Chloride Flush 3 Ml Syringe) [address] [facility] Medications ?Medication ?Instructions ?Recorded ?Confirmed ?Last Taken ?Type lorazepam 0.5 mg tablet 0.25 mg PO BID PRN Anxiety 11/14/20 12/14/24 12/09/24 History omeprazole 20 mg capsule,delayed 20 mg PO DAILY@0630 11/14/20 12/14/24 12/09/24 History release coenzyme Q10 100 mg capsule 100 mg PO DAILY 04/14/21 12/14/24 12/09/24 History (CoQ-10) carboxymethylcellulose sodium 0.5 1 drp ophthalmic (eye) BID 11/30/22 12/14/24 12/09/24 History % eye drops (Refresh Tears) spironolactone 25 mg tablet 12.5 mg PO BEDTIME 05/19/23 12/14/24 12/09/24 History simvastatin 20 mg tablet 10 mg PO DAILY 11/19/24 12/14/24 12/09/24 History metoprolol succinate 50 mg 50 mg PO DAILY 12/06/24 12/14/24 12/13/24 14:32 History tablet,extended release 24 hr warfarin 2.5 mg tablet 7.5 mg PO .COMPLEX 12/13/24 12/14/24 Unknown History amiodarone 200 mg tablet See Rx Instructions .Route .COMPLEX 12/14/24 12/14/24 Unknown History furosemide 20 mg tablet 20 mg PO BID 12/14/24 12/14/24 Unknown History Physical Exam Vital Signs and Narrative: Vital Signs: Last Vital Signs Temp 97.6 F 12/15/24 06:00 Pulse 99 12/15/24 06:00 Resp 20 12/15/24 06:00 BP 126/64 12/15/24 06:00 Pulse Ox 96 12/15/24 06:00 O2 Del Method Room Air 12/15/24 06:00 BMI result Body Mass Index 27.1 General: AOx3, no acute distress Resp: crackles RLL base, no wheezing or rhonchi CVS: S1, S2, tachy, regular rhythm GI: +BS, NT, no distention Skin: Warm, dry Neuro: Cranial nerves II-XII grossly intact bilaterally. Motor grossly intact bilaterally Extremities: No LE edema Psych: Appropriate affect, tearful, anxious about Const: General: No confusion Orientation/consciousness: No confusion Eyes: Direct Ophthalmoscopy: No photophobia Neuro: General: No confusion Results Labs 12/14/24 21:27 12/14/24 21:27 Labs: Laboratory Results - last 24 hr 12/14/24 12/14/24 21:27 22:36 MCV 87.3 MCH 30.3 MCHC 34.8 RDW 13.6 Plt Count 163 MPV 11.1 Immature Gran % (Auto) 0.4 Neut % (Auto) 67.6 Lymph % (Auto) 22.9 [place] % (Auto) 7.9 Eos % (Auto) 0.8 Baso % (Auto) 0.4 Lymph # (Auto) 2.0 [place] # (Auto) 0.7 Eos # (Auto) 0.1 Baso # (Auto) 0.0 Abs Immat Gran (auto) 0.04 H Absolute Neuts (auto) 6.0 Absolute Nucleated RBC 0.000 Nucleated RBC % (auto) 0.0 PT 45.3 H INR 3.9 H Anion Gap 17 Estim Creat Clear Calc 45.7 Estimated GFR 47 Random Glucose 149 H Calcium 9.2 Magnesium 1.7 Total Bilirubin 1.1 H AST 29 ALT 25 Alkaline Phosphatase 89 B-Natriuretic Peptide 1238 H 998 H Total Protein 6.4 L Albumin 3.9 Assessment and Plan (1) Acute on chronic diastolic CHF (congestive heart failure): Status: Acute (2) Hyponatremia with excess extracellular fluid volume: Status: Acute (3) Acute kidney injury superimposed on stage 3a chronic kidney disease: Status: Acute (4) Prolonged QT interval: Status: Acute Plan Patient is a 79-year-old male with a pmhx significant for?paroxysmal AFib on warfarin, HFrEF (25-30% 07/05/2024) secondary to ischemic cardiomyopathy, CAD s/p AL, hx of CVA with residual right-sided deficits, GERD, and anxiety, with multiple recent ED visits as well as admission from 12/09-12/12 for CHF exacerbations. acute on chronic HFrEF exacerbation - follows with Dr. Granados at [facility] - no leukocytosis or fever, no infectious etiology - trop 55.1, 83.6 on repeat, baseline around 50, no chest pain, EKG without evidence of infarction - BNP 998 - CXR without pleural effusion or consolidation. No radiographic evidence for an acute cardiopulmonary process. - no lower extremity edema - improvement of symptoms with 40 mg IV Lasix, continue 40 mg IV b.i.d. - last echocardiogram 06/2024 with EF of 25-30% - update echocardiogram - cardiology consult - holding jardiance/amiodarone as pt does not wish to take this due to side effects - low salt diet - follow Is+Os and daily weights - monitor on tele - monitor BMP Hyponatremia secondary to extracellular fluid volume - IV diuresis as above - monitor BMP BERNA on CKD3a - cr 1.46, baseline around 1.1 - multiple admissions with in for IV diuresis - patient received 2 L IV fluids yesterday, no further fluids at this time - monitor BMP Prolonged QTc - EKG with QTc 611, improved from previous - mag low normal, 1.7 - monitor on tele - avoid QT prolonging medications Paroxysmal AFib - EKG without AFib currently - INR supratherapeutic, hold warfarin - check PT/INR daily - continue metoprolol for rate control - holding amiodarone as pt does not wish to take this due to side effects Anxiety - continue lorazepam 0.25 mg b.i.d. p.r.n. CAD/HLD - continue statin GERD - continue omeprazole Full code VTE prophylaxis: Warfarin, holding due to supratherapeutic INR Patient with acute on chronic HFrEF exacerbation with multiple recent hosptial visits, requiring admission for at least 2 midnights stay for IV duiresis, further cardiac w/u and cardiology consultation. Quality Stroke Does the patient have a stroke diagnosis?: No VTE Prior VTE?: No VTE Risk Level:: Medical - moderate - high VTE Device Contraindication: Treatment Not Indicated VTE Drug Contraindication: N/A - Med Ordered
--- NOTE | 2024-12-15 07:51 | PHA.MEDREC ---
Addendum entered by Pati Gordon [facility] 12/15/24 08:06: reviewed, contacted the provider regarding warfarin dosing and patients current amiodarone load. INR is currently high at 3.9 Original Note: Pharmacy Consult ? Medication Reconciliation Pharmacy has completed the medication reconciliation. Went over yesterdays discharge instructions with patient. He is no longer taking Jardiance, he could not tolerate it and had nausea. Amiodarone decreased to 200 mg bid, furosemide is now 20 mg bid, and his warfarin adjustments are within the protocol on his home list: Thursday 12/14: Hold Friday 12/15: 7.5 mg (3 green tabs) Saturday 12/16: 5 mg (2 green tabs) Patient explained that he cannot take a whole tablet of his 0.5 mg lorazepam because it drops his blood pressure, he cuts it in half if he takes it (0.25 mg). He did not have any medications yesterday.
--- NOTE | 2024-12-15 09:18 | PC.NURSE ---
Cardiology at bedside for consult with patient.
[2024-12-15] MEDS: Metoprolol Succinate ER 50 MG TAB.ER.24H PO (09:44)
[2024-12-15] MEDS: Furosemide 40 MG/4 ML VIAL IVPUSH (09:44)
[2024-12-15] MEDS: Atorvastatin Calcium 10 MG TABLET PO (09:44)
[2024-12-15] MEDS: 0.9 % Sodium Chloride Flush 3 ML SYRINGE IVFLUSH ×2 (09:57→21:17)
--- NOTE | 2024-12-15 10:06 | P.CONCA_ITS ---
History of Present Illness History of Present Illness Date of Service: 12/15/24 Chief complaint: CHF exacerbation Narrative: This is a cardiology consultation regarding congestive heart failure. Patient was just seen in the hospital for congestive heart failure. He was diuresed, sent home on guideline based medical therapy. He was also having frequent PVCs and hence we had put him on amiodarone. After that, it seems that he came in with sensations of feeling very dry and it was felt that he was dehydrated and he got IV fluids in the emergency room and then he was discharged back home. After that, he returned yet again feeling short of breath, and once again thought to be in congestive heart failure and hence readmitted. He states he does not like taking the Jardiance or the amiodarone and would like to stop those. He thinks they are causing some side effects. Tried to explain the rationale but he would rather not take it anymore. Otherwise, it seems he owns again got diuretics in the ER and has diuresed and again feeling better. Review of Systems 2 Review of Systems: Yes all other systems are reviewed and are negative Constitutional: Constitutional: Reports as per HPI and Reports no additional constitutional complaints Eyes: Eyes: Reports as per HPI and Denies no additional eye complaints ENT: Denies system reviewed and no additional complaints, except as documented and Reports as per HPI Cardiovascular: Cardiovascular: Reports as per HPI, Reports no additional cardiovascular complaints, Denies acrocyanosis, Denies cool extremities, Denies chest pain, Denies leg edema, Denies lightheadedness, Denies palpitations and Reports dyspnea Respiratory: Respiratory: Reports as per HPI, Denies no additional respiratory complaints and Reports dyspnea Gastrointestinal: Gastrointestinal: Reports as per HPI and Denies no additional gastrointestinal complaints Genitourinary: Genitourinary: Reports no additional male genitourinary complaints and Reports as per HPI Musculoskeletal: Musculoskeletal: Reports no additional musculoskeletal complaints and Reports as per HPI Integumentary/Breasts: Skin/Breast: Reports system reviewed and no additional complaints, except as docu Neurologic: Reports system reviewed and no additional complaints, except as documented and Reports as per HPI Psychiatric: Psychiatric: Reports no additional psychiatric complaints and Reports as per HPI Endocrine: Endocrine: Reports no additional endocrine complaints, Reports as per HPI and Denies palpitations Hematologic/Lymphatic: Hematologic/Lymphatic: Reports no additional hematologic/lymphatic complaints and Reports as per HPI Allergic/Immunologic: Allergic/Immunologic: Reports no additional allergic/immunologic complaints and Reports as per HPI [facility] Past Medical History Medical History (Updated 12/15/24 @ 10:13 by Orlando Ramos MD) Acute on chronic combined systolic and diastolic CHF (congestive heart failure) Orthopnea Diabetes type 2, controlled Anxiety Myocardial infarct, old CHF (congestive heart failure) CVA (cerebral vascular accident) A-fib Family History Pertinent family history: No pertinent family history Surgical History Surgical History History of appendectomy Social History Social History Household Members: None Housing: House Do you presently have visiting nurse or other home services: Yes ([facility]) Alcohol intake: former Patient Tobacco Use Status: Never used Tobacco Smoked in Last 30 Days: No Use of substances other than those prescribed or required for medical reasons: No Advance Directives: No Advance Directives Information Provided: No Do you have a plan to hurt others: No Plan Nutrition Risks: No Nutritional Risk service: Yes Current occupational status: disabled Meds Allergies Allergy/AdvReac Type Severity Reaction Status Date / Time adenosine Allergy Severe cardiac, Verified 12/14/24 21:17 elevated BP, Stroke Gadolinium-Containing Allergy Severe red eyes Verified 12/14/24 21:17 Contrast Medi Iodinated Contrast Media Allergy Severe Seizure Verified 12/14/24 21:17 [CONTRAST, IV] carvedilol Allergy Intermediate disorientat Verified 12/14/24 21:17 ion erythromycin base AdvReac Unknown Gut Verified 12/14/24 21:17 pain , Abdominal Pain, GI upset Active Medications: Current Medications Acetaminophen (Acetaminophen 325 Mg Tablet) 975 mg PO Q6H PRN PRN Reason: Pain, Mild 1-3,fever,headache Atorvastatin Calcium (Atorvastatin Calcium 10 Mg Tablet) 10 mg PO DAILY TOMI Last Admin: 12/15/24 09:44 Dose: 10 mg Calcium Carbonate (Calcium Carbonate 750 Mg Tab.Chew) 750 mg PO Q4H PRN PRN Reason: Heartburn Furosemide (Furosemide 40 Mg/4 Ml Vial) 40 mg IVPUSH BID@0900,1800 TOMI; Protocol Last Admin: 12/15/24 09:44 Dose: 40 mg Lorazepam (Lorazepam 0.5 Mg Tablet) 0.25 mg PO BID PRN PRN Reason: Anxiety Magnesium Hydroxide (Milk Of Magnesia 30 Ml Oral.Susp) 30 ml PO DAILY PRN PRN Reason: Constipation Melatonin (Melatonin 3 Mg Tablet) 6 mg PO BEDTIME PRN PRN Reason: Insomnia Metoprolol Succinate (Metoprolol Succinate Er 50 Mg Tab.Er.24h) 50 mg PO DAILY [facility]; Protocol Last Admin: 12/15/24 09:44 Dose: 50 mg Omeprazole (Omeprazole 20 Mg Capsule.Dr) 20 mg PO DAILY@0630 [facility] Sacubitril/Valsartan (Sacubitril/Valsartan 1 Tab Tablet) 1 tab PO BID [facility]; Protocol Sodium Chloride (0.9 % Sodium Chloride Flush 3 Ml Syringe) [facility] Last Admin: 12/15/24 09:57 Dose: 3 ml Spironolactone (Spironolactone 25 Mg Tablet) 12.5 mg PO BEDTIME [facility]; Protocol Warfarin Sodium (Warfarin Sodium 7.5 Mg Tablet) 7.5 mg PO .COMPLEX [facility] Home Medications ?Medication ?Instructions ?Recorded ?Confirmed ?Last Taken ?Type lorazepam 0.5 mg tablet 0.25 mg PO BID PRN Anxiety 11/14/20 12/15/24 12/09/24 History omeprazole 20 mg capsule,delayed 20 mg PO DAILY@0630 11/14/20 12/15/24 12/09/24 History release coenzyme Q10 100 mg capsule 100 mg PO DAILY 04/14/21 12/15/24 12/09/24 History (CoQ-10) carboxymethylcellulose sodium 0.5 1 drp ophthalmic (eye) BID 11/30/22 12/15/24 12/09/24 History % eye drops (Refresh Tears) spironolactone 25 mg tablet 12.5 mg PO BEDTIME 05/19/23 12/15/24 12/09/24 History simvastatin 20 mg tablet 10 mg PO DAILY 11/19/24 12/15/24 12/09/24 History metoprolol succinate 50 mg 50 mg PO DAILY 12/06/24 12/15/24 12/13/24 14:32 History tablet,extended release 24 hr warfarin 2.5 mg tablet 7.5 mg PO .COMPLEX 12/13/24 12/15/24 Unknown History amiodarone 200 mg tablet 200 mg PO BID 12/14/24 12/15/24 Unknown History furosemide 20 mg tablet 20 mg PO BID 12/14/24 12/15/24 Unknown History Physical Exam 2 Vital Signs: Vital Signs: Last Vital Signs Temp 98.0 F 12/15/24 09:41 Pulse 98 12/15/24 09:44 Resp 19 12/15/24 09:41 BP 104/68 12/15/24 09:44 Pulse Ox 95 12/15/24 09:41 O2 Del Method Room Air 12/15/24 09:41 BMI result Body Mass Index 28.2 Const: General: comfortable and no acute distress O rientation/consciousness: patient oriented x3 HEENT: Other: Unremarkable Head: Yes normal to inspection Neck: Neck: Yes normal visual inspection Chest: Chest palpation & inspection: normal inspection of the chest Resp: Other: Minimal crackles Cardio: Palpation: normal PMI Heart sounds: S1 normal heart sound present, S2 normal heart sound present, no gallops, no murmurs and no rubs GI: Palpation (GI): Soft to palpation Back/Spine/Pelvis: Other: unremarkable Skin: General skin exam: no rashes or lesions noted Neuro: General: patient oriented x3 Extrem: Other: Trace General: Yes normal to inspection Psych: Mental Status: mental status grossly normal Objective Labs and Meds 12/14/24 21:27 12/14/24 21:27 Lab results: Laboratory Results - last 24 hr 12/14/24 12/14/24 12/14/24 21:27 22:36 23:51 WBC 8.9 RBC 4.55 L Hgb 13.8 L Hct 39.7 L MCV 87.3 MCH 30.3 MCHC 34.8 RDW 13.6 Plt Count 163 MPV 11.1 Immature Gran % (Auto) 0.4 Neut % (Auto) 67.6 Lymph % (Auto) 22.9 [place] % (Auto) 7.9 Eos % (Auto) 0.8 Baso % (Auto) 0.4 Lymph # (Auto) 2.0 [place] # (Auto) 0.7 Eos # (Auto) 0.1 Baso # (Auto) 0.0 Abs Immat Gran (auto) 0.04 H Absolute Neuts (auto) 6.0 Absolute Nucleated RBC 0.000 Nucleated RBC % (auto) 0.0 PT 45.3 H INR 3.9 H Sodium 134 L Potassium 3.5 Chloride 100 Carbon Dioxide 21 L Anion Gap 17 BUN 27 H Creatinine 1.46 H Estim Creat Clear Calc 45.7 Estimated GFR 47 Random Glucose 149 H Calcium 9.2 Magnesium 1.7 Total Bilirubin 1.1 H AST 29 ALT 25 Alkaline Phosphatase 89 Troponin I High Sens 55.1 H 83.6 H D B-Natriuretic Peptide 1238 H 998 H Total Protein 6.4 L Albumin 3.9 ECG Interpretation: EKG from showed sinus rhythm, right bundle-branch block; AR prolongation; corrected QT is 496 milliseconds. In the repeat EKG from , rhythm is probably sinus with prolonged AR again. There was right bundle-branch block. QT does look prolonged. Assessment and Plan (1) Acute on chronic combined systolic and diastolic CHF (congestive heart failure): Status: Acute (2) NSVT (nonsustained ventricular tachycardia): Status: Acute Plan Cardiac BNP levels are 1238 and 198. Overall, similar to recent levels. In the chest x-ray from 12/14, reported no radiographic evidence for acute cardiopulmonary process. Overall, over-diuresis in the recent hospitalization with readmission for dehydration followed by another admission for heart failure. As he is already feeling better, can switch over to oral Lasix to avoid any further over-diuresis. Continue the beta-blockers, Entresto, spironolactone. As he does not want to take amiodarone and there is also QT prolongation, we will stop it. Advised him to follow up with EP through his own cardiology group to discuss about ICD placement. He is not willing to take Jardiance and hence we can stop that. We will monitor him for one more day due to recurrent hospitalizations. Procedures Date of Service Date of Service: 12/15/24
--- NOTE | 2024-12-15 10:57 | HO.PM.IMPN ---
Subjective Subjective Date of Service: 12/15/24 Interval History: imprvoing Physical Exam Vital Signs: Vital Signs: Last Vital Signs Temp 98.0 F 12/15/24 09:41 Pulse 98 12/15/24 09:44 Resp 19 12/15/24 09:41 BP 104/68 12/15/24 09:44 Pulse Ox 95 12/15/24 09:41 O2 Del Method Room Air 12/15/24 09:41 BMI result Body Mass Index 28.2 General: AO X 3, no acute distress Resp: CTA bilateral, no accessory muscles used CVS: S1,S2,RRR GI: soft, non tender, non distended Neuro: motor grossly intact, alert Psych: appropriate affect, appropriate insight Objective Data Active Medications Acetaminophen (Acetaminophen 325 Mg Tablet) 975 mg PO Q6H PRN PRN Reason: Pain, Mild 1-3,fever,headache Atorvastatin Calcium (Atorvastatin Calcium 10 Mg Tablet) 10 mg PO DAILY [facility] Last Admin: 12/15/24 09:44 Dose: 10 mg Documented By: ELIZABETH Calcium Carbonate (Calcium Carbonate 750 Mg Tab.Chew) 750 mg PO Q4H PRN PRN Reason: Heartburn Furosemide (Furosemide 40 Mg/4 Ml Vial) 40 mg IVPUSH BID@0900,1800 [facility]; Protocol Last Admin: 12/15/24 09:44 Dose: 40 mg Documented By: ELIZABETH Lorazepam (Lorazepam 0.5 Mg Tablet) 0.25 mg PO BID PRN PRN Reason: Anxiety Magnesium Hydroxide (Milk Of Magnesia 30 Ml Oral.Susp) 30 ml PO DAILY PRN PRN Reason: Constipation Melatonin (Melatonin 3 Mg Tablet) 6 mg PO BEDTIME PRN PRN Reason: Insomnia Metoprolol Succinate (Metoprolol Succinate Er 50 Mg Tab.Er.24h) 50 mg PO DAILY [facility]; Protocol Last Admin: 12/15/24 09:44 Dose: 50 mg Documented By: ELIZABETH Omeprazole (Omeprazole 20 Mg Capsule.Dr) 20 mg PO DAILY@0630 [facility] Sacubitril/Valsartan (Sacubitril/Valsartan 1 Tab Tablet) 1 tab PO BID [facility]; Protocol Sodium Chloride (0.9 % Sodium Chloride Flush 3 Ml Syringe) [facility] Last Admin: 12/15/24 09:57 Dose: 3 ml Documented By: ELIZABETH Spironolactone (Spironolactone 25 Mg Tablet) 12.5 mg PO BEDTIME [facility]; Protocol Warfarin Sodium (Warfarin Sodium 7.5 Mg Tablet) 7.5 mg PO .COMPLEX [facility] Labs 12/14/24 21:27 12/14/24 21:27 Labs: Laboratory Results - last 24 hr 12/14/24 12/14/24 21:27 22:36 MCV 87.3 MCH 30.3 MCHC 34.8 RDW 13.6 Plt Count 163 MPV 11.1 Immature Gran % (Auto) 0.4 Neut % (Auto) 67.6 Lymph % (Auto) 22.9 [place] % (Auto) 7.9 Eos % (Auto) 0.8 Baso % (Auto) 0.4 Lymph # (Auto) 2.0 [place] # (Auto) 0.7 Eos # (Auto) 0.1 Baso # (Auto) 0.0 Abs Immat Gran (auto) 0.04 H Absolute Neuts (auto) 6.0 Absolute Nucleated RBC 0.000 Nucleated RBC % (auto) 0.0 PT 45.3 H INR 3.9 H Anion Gap 17 Estim Creat Clear Calc 45.7 Estimated GFR 47 Random Glucose 149 H Calcium 9.2 Magnesium 1.7 Total Bilirubin 1.1 H AST 29 ALT 25 Alkaline Phosphatase 89 B-Natriuretic Peptide 1238 H 998 H Total Protein 6.4 L Albumin 3.9 Assessment and Plan (1) Congestive heart failure: Status: Acute Plan 79M PMH hfref, pafib, cad, cva, gerd, anxiety presented with sob Acute on chronic CHF with reduced ejection fraction Diuresed well with IV Lasix, transitioned back to p.o. Not tolerating Jardiance Continue Entresto, metoprolol, Aldactone Cardio appreciated Acute kidney injury on CKD 3 Monitor Prolonged QT Amiodarone hold Paroxysmal AFib Continue metoprolol and Coumadin Anxiety Lorazepam DVT prophylaxis on warfarin Full Code reason for continued hospitalization: Monitoring post diuresis Quality Stroke Does the patient have a stroke diagnosis?: No VTE Prior VTE?: No VTE Risk Level:: Medical - moderate - high VTE Device Contraindication: Treatment Not Indicated VTE Drug Contraindication: N/A - Med Ordered
[2024-12-15] MEDS: Sacubitril/Valsartan 24/26 1 TAB TABLET PO ×2 (12:43→21:17)
[2024-12-15 16:13] LABS: Glucose, Whole Blood 118 mg/dL (60-115)
[2024-12-15] MEDS: LORazepam 0.5 MG TABLET 0.25 MG PO (21:15)
[2024-12-15] MEDS: Spironolactone 25 MG TABLET 12.5 MG PO (21:15)
[2024-12-15 21:29] LABS: Prothrombin Time 35.3 SEC (10.9-12.4)
[2024-12-15] MEDS: Warfarin Sodium 7.5 MG TABLET PO (22:01)
[2024-12-16] VITALS: BP 87/51; PULSE 63; RESP 20; TEMP 36.6
[2024-12-16 00:03] VITALS: BP 104/56
[2024-12-16] MEDS: Acetaminophen 325 MG TABLET 975 MG PO (03:39)
[2024-12-16 04:00] VITALS: BP 118/68; PULSE 72; RESP 20; TEMP 36.2; O2SAT 93
[2024-12-16] MEDS: Omeprazole 20 MG CAPSULE.DR PO (05:57)
[2024-12-16 07:49] VITALS: BP 111/77; PULSE 81; RESP 20; TEMP 36.4; O2SAT 97
[2024-12-16] MEDS: Furosemide 40 MG TABLET PO (08:04)
[2024-12-16] MEDS: 0.9 % Sodium Chloride Flush 3 ML SYRINGE IVFLUSH (08:04)
[2024-12-16] MEDS: Atorvastatin Calcium 10 MG TABLET PO (08:04)
[2024-12-16] MEDS: Metoprolol Succinate ER 50 MG TAB.ER.24H PO (08:04)
[2024-12-16] MEDS: Sacubitril/Valsartan 24/26 1 TAB TABLET PO (08:04)
[2024-12-16 08:19] LABS: Hematocrit 43.6 % (42.0-52.0); Mean Corpuscular HGB Conc 34.4 g/dl (31.0-36.0); Mean Corpuscular Hemoglobin 30.2 pg (27.0-33.0); Mean Corpuscular Volume 87.7 fL (80.0-98.0); Mean Platelet Volume 11.5 fL (9.4-12.4); Platelet Count 172 X10*3/uL (160-400); Red Blood Count 4.97 X10*6/uL (4.60-5.80); Red Cell Distribution Width 13.6 % (11.0-16.0); White Blood Count 9.6 X10*3/uL (4.8-10.8)
[2024-12-16 08:24] LABS: INTERNATIONAL NORM RATIO 2.7 (0.9-1.1)
[2024-12-16 08:34] LABS: Anion Gap 14 (12-20); Blood Urea Nitrogen 20 mg/dL (9-16); Calcium 9.3 mg/dL (8.4-10.2); Carbon Dioxide 25 mmol/L (22-29); Chloride 99 mmol/L (96-108); Creatinine Clr Calc Pharmacy 64.7; Estimated Glomerular Filt Rate > 60; Glucose Random 119 mg/dL (60-115); Potassium 3.3 mmol/L (3.3-5.1); Sodium 135 mmol/L (135-145)
--- NOTE | 2024-12-16 10:50 | PM.PNCARD ---
Subjective Subjective Date of Service: 12/16/24 Interval history: He states he feels fine. He has got no shortness of breath or any symptoms. Review of Systems Review of Systems Yes all other systems are reviewed and are negative Constitutional: Reports as per HPI and Reports no additional constitutional complaints Eyes: Reports as per HPI and Denies no additional eye complaints Denies system reviewed and no additional complaints, except as documented and Reports as per HPI Cardiovascular: Reports as per HPI, Reports no additional cardiovascular complaints, Denies acrocyanosis, Denies cool extremities, Denies chest pain, Denies leg edema, Denies lightheadedness, Denies palpitations and Denies dyspnea Respiratory: Reports as per HPI, Denies no additional respiratory complaints and Denies dyspnea Gastrointestinal: Reports as per HPI and Denies no additional gastrointestinal complaints Genitourinary: Reports no additional male genitourinary complaints and Reports as per HPI Musculoskeletal: Reports no additional musculoskeletal complaints and Reports as per HPI Skin/Breast: Reports system reviewed and no additional complaints, except as docu Reports system reviewed and no additional complaints, except as documented and Reports as per HPI Psychiatric: Reports no additional psychiatric complaints and Reports as per HPI Endocrine: Reports no additional endocrine complaints, Reports as per HPI and Denies palpitations Hematologic/Lymphatic: Reports no additional hematologic/lymphatic complaints and Reports as per HPI Allergic/Immunologic: Reports no additional allergic/immunologic complaints and Reports as per HPI Physical Exam Vital Signs: Last Vital Signs Temp 97.6 F 12/16/24 07:49 Pulse 81 12/16/24 07:49 Resp 20 12/16/24 07:49 BP 111/77 12/16/24 07:49 Pulse Ox 97 12/16/24 07:49 O2 Del Method Room Air 12/16/24 07:49 BMI result Body Mass Index 28.1 Const General: comfortable and no acute distress Orientation/consciousness: patient oriented x3 HEENT Other: Unremarkable Head: Yes normal to inspection Neck Neck: Yes normal visual inspection Chest Chest palpation & inspection: normal inspection of the chest Resp Auscultation: clear to auscultation bilaterally Cardio Palpation: normal PMI Heart sounds: S1 normal heart sound present, S2 normal heart sound present, no gallops, no murmurs and no rubs GI Palpation (GI): Soft to palpation Back/Spine/Pelvis Other: unremarkable Skin General skin exam: no rashes or lesions noted Neuro General: patient oriented x3 Extrem General: Yes normal to inspection Psych Mental Status: mental status grossly normal Objective Labs and Meds 12/16/24 07:35 12/16/24 07:35 Lab results: Laboratory Results - last 24 hr 12/15/24 12/15/24 12/15/24 15:38 21:12 21:12 WBC RBC Hgb Hct MCV MCH MCHC RDW Plt Count MPV Absolute Nucleated RBC Nucleated RBC % (auto) PT 35.3 H D Cancelled INR 3.0 H Sodium Potassium Chloride Carbon Dioxide Anion Gap BUN Creatinine Estim Creat Clear Calc Estimated GFR POC Glucose 118 H Random Glucose Calcium 12/15/24 12/16/24 12/16/24 21:12 07:35 07:35 WBC 9.6 RBC 4.97 Hgb 15.0 Hct 43.6 MCV 87.7 MCH 30.2 MCHC 34.4 RDW 13.6 Plt Count 172 MPV 11.5 Absolute Nucleated RBC 0.000 Nucleated RBC % (auto) 0.0 PT 31.0 H Cancelled INR Cancelled 2.7 H Sodium Potassium Chloride Carbon Dioxide Anion Gap BUN Creatinine Estim Creat Clear Calc Estimated GFR POC Glucose Random Glucose Calcium 12/16/24 07:35 WBC RBC Hgb Hct MCV MCH MCHC RDW Plt Count MPV Absolute Nucleated RBC Nucleated RBC % (auto) PT INR Cancelled Sodium 135 Potassium 3.3 Chloride 99 Carbon Dioxide 25 Anion Gap 14 BUN 20 H Creatinine 1.12 Estim Creat Clear Calc 64.7 Estimated GFR > 60 POC Glucose Random Glucose 119 H Calcium 9.3 Progress Note: A&P Assessment and plan (1) Acute on chronic combined systolic and diastolic CHF (congestive heart failure): Status: Acute (2) NSVT (nonsustained ventricular tachycardia): Status: Acute Plan Overall, over-diuresis in the recent hospitalization with readmission for dehydration followed by another admission for heart failure. He is now clearly euvolemic and does not have any pulmonary findings or leg swelling to suggest heart failure. For meds, on beta-blockers, Entresto, spironolactone. He does not want to take Jardiance. May stop. He does not want to take amiodarone either. Initially added because of PVCs/NSVT. Advised him to follow up with his own primary project management professor regarding EP evaluation/ICD. Discussed with Dr. Carter. Time Spent With Patient Time: Total time managing care of this patient today ____ minutes. Progress Note: Quality Stroke Does the patient have a stroke diagnosis?: No Procedures Date of Service Date of Service: 12/16/24
--- NOTE | 2024-12-16 11:30 | PM.DS ---
DS: Providers Provider Date of Service: 12/16/24 Date of admission: 12/15/24 05:45 Date of discharge: 12/16/24 Primary care physician: Yonathan Womack MD Consults: 12/15/24 06:13 Consult to Cardiology Routine Consulting Provider: [facility] Reason for consultation: CHF, 5 ED visits this week Has provider been notified: No DS: Diagnosis Discharge Diagnosis (1) Acute on chronic combined systolic and diastolic CHF (congestive heart failure): Status: Acute (2) NSVT (nonsustained ventricular tachycardia): Status: Acute DS: Summary Hospital Course Hospital Course: from initial hpi: 79-year-old male with a pmhx significant for?paroxysmal AFib on warfarin, HFrEF (25-30% 07/05/2024) secondary to ischemic cardiomyopathy, CAD s/p MD, hx of CVA with residual right-sided deficits, GERD, and anxiety, with multiple recent ED visits as well as admission from 12/09-12/12 for CHF exacerbations. The patient reports again with shortness of breath and orthopnea for the 5th time this week. On the he received IV Lasix in the ED and was able to go home and returned again on the with the same symptoms and improvement with IV Lasix and again discharged home. From the to he was admitted and diuresed, consulted by Cardiology, Jardiance and amiodarone added and discharged home. The patient reports that he can not tolerate the amiodarone or Jardiance states they are ?poison ?, causing severe nausea and making him feel unwell. He reported again yesterday morning and was thought to be over diuresed and given 2 L of IV fluids and discharged home after feeling better. He reported back to the ED a few hours later and is now here still with shortness of breath and orthopnea. He received 40 mg of Lasix in the ED. a bedside ultrasound was performed that showed a small pericardial effusion, repeat ultrasound with improvement. hospital course: Patient was admitted for acute on chronic CHF with reduced ejection fraction. He was diuresed well with IV Lasix and transitioned back to oral. He was not tolerating Jardiance or amiodarone which have been discontinued. He will continue Entresto, metoprolol, Aldactone. He should monitor weight gain and edema. For BERNA and CKD 3 creatinine returned to baseline. for prolonged qt amio was stopped. for pafib conitnued on metoprolol and warfarin. for anxiety continued on ativan. Time Attestation Discharge Coordination Time (in mins): 37 Quality: Safe Use of Opioids Does Pt have an Active Cancer Diagnosis on the Problem List?: No Quality: Stroke Does the patient have a stroke diagnosis?: No Physical Exam Vital Signs: Vital Signs: Last Vital Signs Temp 97.6 F 12/16/24 07:49 Pulse 81 12/16/24 07:49 Resp 20 12/16/24 07:49 BP 111/77 12/16/24 07:49 Pulse Ox 97 12/16/24 07:49 O2 Del Method Room Air 12/16/24 07:49 BMI result Body Mass Index 28.1 DS: Data Data Completed and Pending Labs on day of discharge: Laboratory Results - last 24 hr 12/15/24 12/15/24 12/15/24 15:38 21:12 21:12 WBC RBC Hgb Hct MCV MCH MCHC RDW Plt Count MPV Absolute Nucleated RBC Nucleated RBC % (auto) PT 35.3 H D Cancelled INR 3.0 H Sodium Potassium Chloride Carbon Dioxide Anion Gap BUN Creatinine Estim Creat Clear Calc Estimated GFR POC Glucose 118 H Random Glucose Calcium 12/15/24 12/16/24 12/16/24 21:12 07:35 07:35 WBC 9.6 RBC 4.97 Hgb 15.0 Hct 43.6 MCV 87.7 MCH 30.2 MCHC 34.4 RDW 13.6 Plt Count 172 MPV 11.5 Absolute Nucleated RBC 0.000 Nucleated RBC % (auto) 0.0 PT 31.0 H Cancelled INR Cancelled 2.7 H Sodium Potassium Chloride Carbon Dioxide Anion Gap BUN Creatinine Estim Creat Clear Calc Estimated GFR POC Glucose Random Glucose Calcium 12/16/24 07:35 WBC RBC Hgb Hct MCV MCH MCHC RDW Plt Count MPV Absolute Nucleated RBC Nucleated RBC % (auto) PT INR Cancelled Sodium 135 Potassium 3.3 Chloride 99 Carbon Dioxide 25 Anion Gap 14 BUN 20 H Creatinine 1.12 Estim Creat Clear Calc 64.7 Estimated GFR > 60 POC Glucose Random Glucose 119 H Calcium 9.3 Discharge Plan Discharge Anticipated Discharge Date/Time: 12/16/24 11:22 Patient Disposition: Home Health Service Discharge Diagnosis: chf Referrals: Yonathan Womack MD [Primary Care Provider] - 1 Week Discharge Medications: Continued coenzyme Q10 [CoQ-10] 100 mg Capsule 100 mg PO DAILY carboxymethylcellulose sodium [Refresh Tears] 0.5 % Drops 1 drp OPHTHALMIC (EYE) BID Entresto 24-26 mg tablet 1 tab PO BID Qty: 60 0RF warfarin 2.5 mg tablet 7.5 mg PO .COMPLEX Protocol: Dose Management Condition: Tuesday (Week One) Dose/Route: 7.5 mg Instruction: 3 x 2.5 mg tablets Condition: Tuesday Dose/Route: 7.5 mg Instruction: 3 x 2.5 mg tablets Condition: Tuesday Dose/Route: 7.5 mg Instruction: 3 x 2.5 mg tablets Condition: Tuesday Dose/Route: 5 mg Instruction: 2 x 2.5 mg tablets Condition: Dose/Route: 5 mg Instruction: 2 x 2.5 mg tablets Condition: Tuesday Dose/Route: 0 mg Instruction: 0 tablets Condition: Tuesday Dose/Route: 7.5 mg Instruction: 3 x 2.5 mg tablets Condition: Tuesday (Week Two) Dose/Route: 5 mg Instruction: 2 x 2.5 mg tablets Condition: Tuesday Dose/Route: 7.5 mg Instruction: 3 x 2.5 mg tablets Condition: Tuesday Dose/Route: 7.5 mg Instruction: 3 x 2.5 mg tablets Condition: Tuesday Dose/Route: 5 mg Instruction: 2 x 2.5 mg tablets Condition: Dose/Route: 7.5 mg Instruction: 3 x 2.5 mg tablets Condition: Tuesday Dose/Route: 7.5 mg Instruction: 3 x 2.5 mg tablets Condition: Tuesday Dose/Route: 7.5 mg Instruction: 3 x 2.5 mg tablets Protocol Text: Adjustment Start Date: Tuesday12/14/24 INR Value: 3.7 INR Date: 12/14/24 Recheck Date: 12/17/24 Rx Instructions: 7.5MG X 6 DAYS/ 5MG X 1 DAY; DOSE ADJUSTMENTS WILL BE MADE DUE TO AMIODARONE LOADING DOSE Dose Adj: 12/14: Hold 12/15: 7.5 mg 12/16: 5 mg lorazepam 0.5 mg tablet 0.25 mg PO BID PRN (Reason: Anxiety) omeprazole 20 mg capsule,delayed release(DR/EC) 20 mg PO DAILY@0630 simvastatin 20 mg tablet 10 mg PO DAILY metoprolol succinate 50 mg tablet extended release 24 hr 50 mg PO DAILY spironolactone 25 mg tablet 12.5 mg PO BEDTIME furosemide 20 mg tablet 20 mg PO BID Patient Comments: pt states resuming tomorrow 12/15/24 Discontinued amiodarone 200 mg tablet 200 mg PO BID Patient Comments: pt states his amiodarone is being decreased 12/15/24 Discharge Orders: Discharge Order (Routine); Ordered 12/16/24 Ordered By: Fabio Carter Diet: Advance to usual diet Activity on Discharge: As tolerated Stand Alone Forms: Patient Portal Discharge page Print Language: French Care Plan Goals: manage chf Health Concerns: chf Plan of Treatment: stop amio and jardiance continue lasix 20mg bid and monitor weight gain Assessment: see above
[2024-12-16 11:53] VITALS: RESP 20
--- NOTE | 2024-12-16 12:01 | MHC.CM.PN ---
PT DISCHARGED PRIOR TO BEING SEEN BY CM CM UPDATED [facility] PT WAS ACTIVE [employer] PT DISCHARGED WITH NO NEW SERVICES [facility]IA [facility]
== END 2024-12-16 12:56 | disposition home health service (06) | DRG 292 ==
LOC: HO.ED 12-15 01:46 → HO.EDOVER 12-15 05:49 → HO.IMC 12-15 09:48
PROVIDERS: Hospitalist; Admitting Provider Physician Assistant; Emergency Provider Emergency Medicine; PCP Internal Medicine; Visit Provider Internal Medicine
DX: I50.23 Acute on chronic systolic (congestive) heart failure (principal); E87.1 Hypo-osmolality and hyponatremia; I69.351 Hemiplegia and hemiparesis following cerebral infarction affecting right dominant side; N18.31 Chronic kidney disease, stage 3a; R79.1 Abnormal coagulation profile; F41.9 Anxiety disorder, unspecified; E78.5 Hyperlipidemia, unspecified; I25.2 Old myocardial infarction; I25.5 Ischemic cardiomyopathy; I25.10 Atherosclerotic heart disease of native coronary artery without angina pectoris; I48.0 Paroxysmal atrial fibrillation; Z79.01 Long term (current) use of anticoagulants; Z79.899 Other long term (current) drug therapy
CPT/HCPCS: 36415; 71045; 80048; 80053; 81001; 82947; 83735; 83880; 84484; 85025; 85027; 85610; 93005; 99285; J1938; J2765

== ENCOUNTER → 2024-12-15 05:45 | Outpatient (BNV) | payer MEDICARE, MEDICAID, SELFPAY | PROVIDERS: Admitting Provider Physician Assistant; Emergency Provider Emergency Medicine; PCP Internal Medicine; Visit Provider Physician Assistant | DX: I50.33 Acute on chronic diastolic (congestive) heart failure (principal); E87.1 Hypo-osmolality and hyponatremia; N17.9 Acute kidney failure, unspecified; N18.31 Chronic kidney disease, stage 3a; R94.31 Abnormal electrocardiogram [ECG] [EKG]; I50.9 Heart failure, unspecified | CPT/HCPCS: 99223; 99239; 99499 ==

== ENCOUNTER → 2024-12-15 05:45 | Outpatient (BNV) | payer MEDICARE, MEDICAID, SELFPAY | PROVIDERS: Admitting Provider Physician Assistant; Emergency Provider Emergency Medicine; PCP Internal Medicine; Visit Provider Internal Medicine | DX: I50.43 Acute on chronic combined systolic (congestive) and diastolic (congestive) heart failure (principal); I47.29 Other ventricular tachycardia | CPT/HCPCS: 99223; 99233 ==

== ENCOUNTER 2024-12-18 00:34 | Emergency (ER) | payer MEDICARE, MEDICAID, SELFPAY ==
--- NOTE | 2024-12-18 | ECG_ITS ---
Test Reason : SOB Blood Pressure : */* mmHG Vent. Rate : 81 BPM Atrial Rate : 81 BPM P-R Int : 272 ms QRS Dur : 160 ms QT Int : 434 ms P-R-T Axes : 87 -53 25 degrees QTcB Int : 504 ms Sinus rhythm with 1st degree A-V block Right bundle branch block Left anterior fascicular block Bifascicular block Abnormal ECG When compared with ECG of 14-Dec-2024 21:22, Fusion complexes are no longer Present ME interval has increased Referred By: Generic ED Physician Electronically Signed By: Tyler Mattson
[2024-12-18 00:40] VITALS: BP 112/65; PULSE 75; RESP 16; TEMP 36.4; O2SAT 96; BMI 26.9
[2024-12-18 01:13] LABS: Basophils Percent Auto 0.5 % (0-2); Eosinophils Absolute Auto 0.1 X10*3/uL (0.0-0.4); Eosinophils Percent Auto 1.1 % (0-4); Hematocrit 39.5 % (42.0-52.0); Hemoglobin 13.9 g/dl (14.0-18.0); Imm Gran Abs Auto 0.05 X10*3/uL (0.00-0.03); Imm Gran Pct Auto 0.6 % (0.0-0.4); Lymphocytes Absolute Auto 2.6 X10*3/uL (1.2-4.9); Lymphocytes Percent Auto 32.6 % (20-40); MANUAL DIFF FLAG NO; Mean Corpuscular HGB Conc 35.2 g/dl (31.0-36.0); Mean Corpuscular Hemoglobin 30.5 pg (27.0-33.0); Mean Corpuscular Volume 86.6 fL (80.0-98.0); Mean Platelet Volume 10.7 fL (9.4-12.4); Monocytes Absolute Auto 0.7 X10*3/uL (0.1-1.2); Neutrophils Absolute Auto 4.4 x10*3/uL (2.0-8.3); Neutrophils Percent Auto 56.2 % (45-73); Platelet Count 164 X10*3/uL (160-400); Red Blood Count 4.56 X10*6/uL (4.60-5.80); Red Cell Distribution Width 13.6 % (11.0-16.0); White Blood Count 7.9 X10*3/uL (4.8-10.8)
--- OUTSIDE RECORDS SUMMARY | 2024-12-18 01:26 | XMS_ITS | Encounter Summary ---
Author Organization [facility] Address [address] [place] [address] Care Team Providers Care Eligibility Technician Name Role Phone Yonathan Womack MD Primary Care Provider Encounter Details Date Type Department Care Team (Late st Contact Info) Description 12/13/2024 Telephone [facility] [address] [place] [phone] Sin Farfan MD [address] [place] [address] Social History Tobacco Use Types Packs/Day Years [...] as of this encounter Progress Notes * Eddie Granados MD - 12/17/2024 12:25 PM EDT Patient has a follow up appointment with us on 20 December * Sin Farfan MD - 12/13/2024 7:29 PM EDT Patient reports significant nausea and was started on jardiance and amiodarone 400mg bid in [facility] recently. Suggest him to stop jardiance and reduce amiodarone to 200mg bid. If not improving, should go to hospital. documented in this encounter Plan of Treatment Upcoming Encounters Date Type Department Care Team (Late st Contact Info) Description 12/20/2024 11:30 AM EDT Office Visit [facility] [address] [place] [address] [place] [address] Michaela Anguiano NP [address] [place] [address] [address] [place] [address] 01/24/2025 9:10 AM EDT Office Visit [address] [place] [phone] Michaela Anguiano NP [address] [place] [address] Dr [address] [place] [phone] documented as of this encounter Visit Diagnoses Not on filedocumented in this encounter Care Teams Eligibility Technician Relationship Specialty Start Date End Date Yonathan Womack MD PCP - General 12/26/12 documented as of this encounter
--- OUTSIDE RECORDS SUMMARY | 2024-12-18 01:26 | XMS_ITS | Clinical Summary ---
Author Organization [address] [place] [address] [place] [phone] Phone Care Team Providers Care Press Hand Supervisor Name Role Phone Yonathan Womack MD Primary [...] Do not change dietary habits. Managed by [facility]. Active spironolactone (ALDACTONE) 25 mg tablet Take [...] 90 each 3 11/30/19 25 026 Active amiodarone (PACERONE) 200 mg tablet Take 2 tablets (400 mg total) by mouth 2 (two) times a day. Patient is on loading dose and will taper down Active empagliflozin (Jardiance) 10 mg tablet Take 1 tablet (10 mg total) by mouth 1 (one) time each day in the morning. Active furosemide (LASIX) 20 mg tablet Take 2 tablets (40 mg total) by mouth 2 (two) times a day. 180 tablet 3 12/15/19 25 Active metoprolol succinate (TOPROL-XL) 25 mg 24 hr tabletIndication s:Paroxysmal atrial fibrillation (CMS/HCC V24, CMS/HCC V28) Take 1 tablet (25 mg total) by mouth 1 (one) time each day. Do not crush or chew. 30 each 11 07/17/20 24 025 Discontinued furosemide (LASIX) 20 mg tablet Take 2 tablets (40 mg total) by mouth 1 (one) time each day. 180 tablet 2 10/15/19 25 025 Discontinued(Re order) metoprolol succinate (TOPROL-XL) 50 mg 24 hr [...] he said he would go to the [facility] ER from our office. He has a ride and will not be driving PVD (peripheral vascular disease) ([facility] V24) 08/09/2023 Overview (06/07/2024): Last Assessment & Plan: History of peripheral vascular disease with known carotid stenosis. Dizzinesses 03/15/2023 HFrEF (heart failure with re duced ejection fraction) ([facility] V24, [facility] V28) 01/06/2023 Overview (06/07/2024): Last Assessment & [...] 2 visits [address] emergency room at [facility] for chest pain both times he was [...] has side effects from adenosine Atrial fibrillation ([facility] V24, [facility] V28) 1 Overview (06/07/2024): Last Assessment & Plan: History of atrial fibrillation with stroke. High [id number] score remains chronically anticoagulated Assessment & Plan (07/30/2024 8:19 AM EST): Orders: ECG 12 lead Coronary arteriosclerosis in [place] artery 05/26 Overview (06/07/2024): Last Assessment & [...] Encounters Date Type Department Care Team Description 12/13/2024 Telephone [facility] Cardiology [facility] [address] [place] [address] Sin Farfan MD 12/13/2024 Telephone [facility] Cardiology [facility] [address] [place] [address] [place] [address] Eddie Granados MD Other 12/05/2024 Telephone [facility] [address] [place] [address] Eddie Granados MD Weight Gain; irregular heart rate 11/29/2024 Telephone [facility] [address] [place] [address] Eddie Granados MD Med Refill (Metoprolol) 11/19/2024 Telephone [facility] Cardiology [facility] [address] [place] [phone] Simone Cantrell MD Medication 11/19/2024 Telephone [facility] [address] [place] [address] Eddie Granados MD high pulse (High pulse ) 10/11/2024 Telephone [facility] [address] [place] [address] Eddie Granados MD Med Refill (Furosemide, Sprinolactone ) from Last 3 Months Medical History Medical History Date Comments CVA (cerebral vascular accid ent) ([facility] V24, [facility] V28) DX:CVA (cerebral vascular ac cident) ([facility]) Chronic ischemic heart disease D X:Chronic ischemic [...] Description 12/20/2024 11:30 AM EDT Office Visit [facility] [address] [place] [address] Michaela Anguiano NP [address] [place] [address] [address] [place] [address] 01/24/2025 9:10 AM EDT Office Visit [facility] [address] [place] [phone] Michaela Anguiano NP [address] [place] [address] [address] [place] [address] Health Maintenance Due Date Last Done Comments [...] MEDICARE ADVANTAGE MEDICAID - [place] Care Teams Press Hand Supervisor Relationship Specialty Start Date End Date Yonathan Womack MD PCP - General 12/26/12
--- OUTSIDE RECORDS SUMMARY | 2024-12-18 01:26 | XMS_ITS | Encounter Summary ---
Author Organization [facility] Address [address] [place] [address] Care Team Providers Care Engraver Hand Hard Metals Name Role Phone Yonathan Womack MD Primary Care Provider [phone]- [phone] Reason for Visit * Reason Onset Date Comments Other 12/13/2024 Encounter Details Date Type Department Care Team (Late st Contact Info) Description 12/13/2024 Telephone [facility] Cardiology [address] [place] [phone] Eddie Granados MD [address] [place] [address] [address] [place] [address] Other Social History Tobacco Use Types Packs/Day Years [...] Refills Last Filled Start Date End Date furosemide (LASIX) 20 mg tablet Take 2 tablets (40 mg total) by mouth 2 (two) times a day. 180 tablet 3 12/14/2024 documented in this encounter Progress Notes * Deyanira Pickett MA - 12/17/2024 11:05 AM EDT I have sent all the [facility] records that I received to Tabby to have them scanned into chart * Deyanira Pickett MA - 12/14/2024 2:49 PM EDT I called and spoke with the patient and he will be sure that the [facility] is aware of the medication changes. He went to the ER because he felt poorly. He said that they did keep him for a little while because he had a low heart rate. He felt like his tongue was swollen and like his throat was closing. I have requested those records also. * Smitha Flannery NP - 12/14/2024 12:30 PM EDT Marjorie--can you pls try the pt later today?? Reviewed [facility] d/c summary Started on jardiance and amiodarone 400mg BID x14 days. Call to on-call provider overnight to report nausea. Farxiga dc'd and amio reduced to 200mg/d I agree with reduced amio. Pls make sure that the [facility]NA is aware that his amio was reduced as it willaffect his INR. OK to hold jardiance until he sees Michaela 12/20, but it would be a good thing to try again as it will help keep water out of his body I prescribed the lasix 40mg BID for him and sent it to his pharmacy Please thank him for his kind words. I'm glad I was able to help him! I think we're on a good path with his treatment plan and he should feel better soon!! * Deyanira Pickett MA - 12/13/2024 2:50 PM EDT The patient is asking for 40 mg bid to be sent to the pharmacy. Will this be okay? Will this be thedose he will stay on? I did request records from [facility] I called and spoke with the patient to be sure that it was nothing of urgency due to Smitha or Michaela not being in the office today and Dr. Granados is rounding. The patient will need a refill for his lasix which I will send. Smitha the patient was calling to let you know that they started him on a loading dose of amiodarone and jardiance 10 mg. The VNA went out today and said that he is doing good. They are recommendingthat his mag, potassium and INR's are monitored. The VNA will be checking his INR. He wants you to know that you were very helpful and really smart. He appreciates that you were extremely helpful. He does have an appt with Michaela on 12/20/24. He was asking if that could be switched toyour schedule because he really wants to meet you. I did briefly explain our care teams also * Chidi Gaytan - 12/13/2024 1:19 PM EDT Russell calling with multiple concerns that he want's to speak to Smitha Case about. He did not go into much detail except it was a multitude of things he would like to discuss with her and he described it as urgent. documented in this encounter Plan of Treatment Upcoming Encounters Date Type Department Care Team (Late st Contact Info) Description 12/20/2024 11:30 AM EDT Office Visit [facility] [place] [address] Michaela Anguiano NP [address] [place] [address] [place] [address] 01/24/2025 9:10 AM EDT Office Visit [facility] [place] [facility] [phone] Michaela Anguiano NP [address] [place] [address] [place] [address] documented as of this encounter Visit Diagnoses Not on filedocumented in this encounter Discontinued Medications Medication Sig Discontinue Reason Start Date End Da te furosemide (LASIX) 20 mg tablet Take 2 tablets (40 mg total) by mouth 1 (one) time each day. Reorder 10/15/2024 12/14/2024 documented as of this encounter Historical Medications * This list may reflect changes made after this encounter. empagliflozin (Jardiance) 10 mg tablet Take 1 tablet (10 mg total) by mouth 1 (one) time each day in the morning. amiodarone (PACERONE) 200 mg tablet Take 2 tablets (400 mg total) by mouth 2 (two) times a day. Patient is on loading dose and will taper down added in this encounter Care Teams Engraver Hand Hard Metals Relationship Specialty Start Date End Date Yonathan Womack MD PCP - General 12/26/12 documented as of this encounter
--- NOTE | 2024-12-18 01:28 | ED_ITS ---
HPI - General Adult General Chief complaint: General Medical Stated complaint: Throat Closing CHF Time Seen by Provider: 12/18/24 01:28 Source: patient Limitations: no limitations History of Present Illness ED Provider: Amita Bartlett PA-C HPI narrative: 79 y/o M with hx of paroxysmal AFib on warfarin, HFrEF (25-30% 07/05/2024) secondary to ischemic cardiomyopathy, CAD s/p [place], hx of CVA with residual right- sided deficits, GERD, and anxiety, with multiple recent ED visits as well as admission from 12/09-12/12 for CHF exacerbations, presents with dry mouth. Patient states his mouth has been extremely dry he is having difficulty swallowing, since they increased his diuretics. Patient states he is having trouble sleeping as a result. Patient states he is volume restricted to 64 oz a day. Patient states he is afraid to drank because he does not want ?fluid to go into his lungs?. Patient states his urine is dark as well. Related Data Home Medications ?Medication ?Instructions ?Recorded ?Confirmed lorazepam 0.5 mg tablet 0.25 mg PO BID PRN Anxiety 11/14/20 12/17/24 omeprazole 20 mg capsule,delayed 20 mg PO DAILY@0630 11/14/20 12/17/24 release coenzyme Q10 100 mg capsule 100 mg PO DAILY 04/14/21 12/17/24 (CoQ-10) carboxymethylcellulose sodium 0.5 1 drp ophthalmic (eye) BID 11/30/22 12/17/24 % eye drops (Refresh Tears) spironolactone 25 mg tablet 12.5 mg PO BEDTIME 05/19/23 12/17/24 simvastatin 20 mg tablet 10 mg PO DAILY 11/19/24 12/17/24 metoprolol succinate 50 mg 50 mg PO DAILY 12/06/24 12/17/24 tablet,extended release 24 hr warfarin 2.5 mg tablet 7.5 mg PO .COMPLEX 12/13/24 12/17/24 furosemide 20 mg tablet 40 mg PO BID 12/17/24 12/17/24 ondansetron 4 mg disintegrating 2 mg PO Q6-8H PRN 12/17/24 12/17/24 tablet Previous Rx's ?Medication ?Instructions ?Recorded sacubitril 24 mg-valsartan 26 mg 1 tab PO BID #60 tabs 12/01/22 tablet (Entresto) Allergies Allergy/AdvReac Type Severity Reaction Status Date / Time adenosine Allergy Severe cardiac, Verified 12/18/24 00:42 elevated BP, Stroke Gadolinium-Containing Allergy Severe red eyes Verified 12/18/24 00:42 Contrast Medi Iodinated Contrast Media Allergy Severe Seizure Verified 12/18/24 00:42 [CONTRAST, IV] carvedilol Allergy Intermediate disorientat Verified 12/18/24 00:42 ion erythromycin base AdvReac Unknown Gut Verified 12/18/24 00:42 pain , Abdominal Pain, GI upset Review of Systems 2 Review of Systems: Yes all other systems are reviewed and are negative Constitutional: Constitutional: Denies no additional constitutional complaints, Denies fatigue and Denies fever(s) ENT: Reports other (Dry mouth) Cardiovascular: Cardiovascular: Denies chest pain and Denies dyspnea Respiratory: Respiratory: Denies cough and Denies dyspnea Gastrointestinal: Gastrointestinal: Denies abdominal pain, Denies nausea and Denies vomiting Genitourinary: Genitourinary: Reports oliguria, Denies dysuria and Denies flank pain Endocrine: Endocrine: Denies fatigue [facility] Past Medical History Attestation statement: The following information was validated with the patient. Medical History (Updated 12/18/24 @ 03:09 by BEATRICE Traore) Acute on chronic combined systolic and diastolic CHF (congestive heart failure) Orthopnea Anxiety Myocardial infarct, old CHF (congestive heart failure) CVA (cerebral vascular accident) A-fib Surgical History History of appendectomy Social History Social History Household Members: None Housing: House Do you presently have visiting nurse or other home services: Yes Alcohol intake: former Patient Tobacco Use Status: Never used Tobacco Advance Directives: No Advance Directives Information Provided: Yes Do you have a plan to hurt others: No Plan service: Yes Current occupational status: disabled Physical Exam ED Vital Signs: Vital Signs - 24 hr 12/18/24 00:40 12/18/24 01:37 Temperature 97.5 F 98.1 F Pulse Rate 75 80 Respiratory Rate 16 19 Blood Pressure 112/65 99/54 L Pulse Oximetry 96 95 Oxygen Delivery Method Room Air Room Air BMI result Body Mass Index 26.9 Const Other: Alert well-appearing Orientation/consciousness: patient oriented x3 HENMT Other: Dry oral mucosa Resp Effort & Inspection: normal respiratory effort Cardio Other: Normal peripheral perfusion Skin Other: Warm dry no rash Neuro General: patient oriented x3, gait normal, no focal motor deficits and CN's II- XI intact bilaterally Psych Other: Cooperative Medical Decision Making Medical Decision Making MDM Narrative: 79 y/o M with hx of paroxysmal AFib on warfarin, HFrEF (25-30% 07/05/2024) secondary to ischemic cardiomyopathy, CAD s/p [place], hx of CVA with residual right- sided deficits, GERD, and anxiety, with multiple recent ED visits as well as admission from 12/09-12/12 for CHF exacerbations, presents with dry mouth. Patient states his mouth has been extremely dry he is having difficulty swallowing, since they increased his diuretics. Patient states he is having trouble sleeping as a result. Patient states he is volume restricted to 64 oz a day. Patient states he is afraid to drank because he does not want ?fluid to go into his lungs?. Patient states his urine is dark as well. Problem: Age, AFib, heart failure, History: Per patient I have considered the following differential diagnoses: Dehydration, acute kidney injury, urinary tract infection, electrolyte abnormality Plan: Screening labs ordered from triage including a urinalysis. The patient was extremely anxious, he has had multiple visits to the emergency room this month. He is concerned that his urine is dark, I have explained to him that it is concentrated because he is not drinking the volume that he should. I told the patient that he needs to consume the 64 oz throughout the day, and that he would find he would not have a dry mouth. He could also eat sour candies. He feels that these are ?great ideas?. I am having him drink water and eat a [employer] candy, pending a urine sample. To note I do not feel strongly about this, the patient is quite concerned about the color of his urine. I have independently reviewed the following tests: Labs: No leukocytosis, not anemic, no electrolyte abnormality, kidney function at baseline, troponin at baseline, BNP best that it has been EKG: Sinus rhythm with first-degree AV block, right bundle branch block, left anterior fascicular block no change essentially from prior studies rate of 81, no ischemic changes Lab Data 12/18/24 01:07 12/18/24 01:07 Labs: Lab Results 12/18/24 Range/Units 01:07 WBC 7.9 (4.8-10.8) X10*3/uL RBC 4.56 L (4.60-5.80) X10*6/uL Hgb 13.9 L (14.0-18.0) g/dl Hct 39.5 L (42.0-52.0) % MCV 86.6 (80.0-98.0) fL MCH 30.5 (27.0-33.0) pg MCHC 35.2 (31.0-36.0) g/dl RDW 13.6 (11.0-16.0) % Plt Count 164 (160-400) X10*3/uL MPV 10.7 (9.4-12.4) fL Immature Gran % (Auto) 0.6 H (0.0-0.4) % Neut % (Auto) 56.2 (45-73) % Lymph % (Auto) 32.6 (20-40) % [place] % (Auto) 9.0 (2-11) % Eos % (Auto) 1.1 (0-4) % Baso % (Auto) 0.5 (0-2) % Lymph # (Auto) 2.6 (1.2-4.9) X10*3/uL [place] # (Auto) 0.7 (0.1-1.2) X10*3/uL Eos # (Auto) 0.1 (0.0-0.4) X10*3/uL Baso # (Auto) 0.0 (0.0-0.2) X10*3/uL Abs Immat Gran (auto) 0.05 H (0.00-0.03) X10*3/uL Absolute Neuts (auto) 4.4 (2.0-8.3) x10*3/uL Absolute Nucleated RBC 0.000 (0.0-0.012) X10*3/uL Nucleated RBC % (auto) 0.0 (0.0-0.2) /100WBC Sodium 137 (135-145) mmol/L Potassium 3.4 (3.3-5.1) mmol/L Chloride 100 (96-108) mmol/L Carbon Dioxide 24 (22-29) mmol/L Anion Gap 16 (12-20) BUN 26 H (9-16) mg/dL Creatinine 1.39 (0.5-1.4) mg/dL Estim Creat Clear Calc 48.0 Estimated GFR 49 Random Glucose 130 H (60-115) mg/dL Calcium 9.1 (8.4-10.2) mg/dL Total Bilirubin 0.9 (0.0-1.0) mg/dL AST 26 (5-37) U/L ALT 24 (0-40) U/L Alkaline Phosphatase 78 (39-117) U/L Troponin I High Sens 40.4 H D (<3.5-35.0) ng/L B-Natriuretic Peptide 811 H (<100) pg/mL Total Protein 6.4 L (6.5-8.0) g/dL Albumin 3.5 (3.5-5.0) g/dL Discharge Plan Discharge Clinical Impression: Dry mouth Patient Disposition: Home, Self-Care Instructions: Dry Mouth (ED) Additional Instructions: You had no lab abnormalities today. Your mouth is dry because you are not drinking water. You have been instructed to drink 64 oz of water throughout the day. You could also eat sour candies to help stimulate saliva production. There are many tactics you can use to help you sleep. You should start by avoiding TV, computers or your cell phone, 2 hours before bed. You could try [id number] melatonin 30 minutes before bed. Once you take the melatonin lie down in a dark room, the use of a white noise maker could help you fall asleep as well. Continue to follow up with your healthcare providers. Prescriptions: No Action coenzyme Q10 [CoQ-10] 100 mg Capsule 100 mg PO DAILY carboxymethylcellulose sodium [Refresh Tears] 0.5 % Drops 1 drp OPHTHALMIC (EYE) BID Entresto 24-26 mg tablet 1 tab PO BID Qty: 60 0RF warfarin 2.5 mg tablet 7.5 mg PO .COMPLEX Protocol: Dose Management Condition: Tuesday Dose/Route: 5 mg Instruction: 2 x 2.5 mg tablets Condition: Tuesday Dose/Route: 7.5 mg Instruction: 3 x 2.5 mg tablets Condition: Tuesday Dose/Route: 7.5 mg Instruction: 3 x 2.5 mg tablets Condition: Tuesday Dose/Route: 5 mg Instruction: 2 x 2.5 mg tablets Condition: Dose/Route: 7.5 mg Instruction: 3 x 2.5 mg tablets Condition: Tuesday Dose/Route: 7.5 mg Instruction: 3 x 2.5 mg tablets Condition: Tuesday Dose/Route: 7.5 mg Instruction: 3 x 2.5 mg tablets Protocol Text: Adjustment Start Date: Tuesday12/17/24 INR Value: 2.9 INR Date: 12/17/24 Recheck Date: 12/20/24 Additional Instructions: REVIEW FOOD LIST WEEKLY, EAT GREENS AND PROTEIN TODAY IF POSSIBLE OR TOMORROW IF EASIER. INR RECHECK 12/20/24 Rx Instructions: 7.5MG X 6 DAYS/ 5MG X 1 DAY; DOSE ADJUSTMENTS WILL BE MADE DUE TO AMIODARONE LOADING DOSE Dose Adj: 12/14: Hold 12/15: 7.5 mg 12/16: 5 mg lorazepam 0.5 mg tablet 0.25 mg PO BID PRN (Reason: Anxiety) omeprazole 20 mg capsule,delayed release(DR/EC) 20 mg PO DAILY@0630 simvastatin 20 mg tablet 10 mg PO DAILY metoprolol succinate 50 mg tablet extended release 24 hr 50 mg PO DAILY spironolactone 25 mg tablet 12.5 mg PO BEDTIME furosemide 20 mg tablet 40 mg PO BID Patient Comments: DOSE INCREAESED ondansetron 4 mg tablet,disintegrating 2 mg PO Q6-8H PRN Print Language: Frisian
[2024-12-18 01:37] VITALS: BP 99/54; PULSE 80; RESP 19; TEMP 36.7; O2SAT 95
[2024-12-18 01:38] LABS: B Type Natriuretic Peptide 811 pg/mL (<100)
[2024-12-18 01:39] LABS: Troponin-I High Sensitivity 40.4 ng/L (<3.5-35.0)
[2024-12-18 01:41] LABS: Alanine Aminotransferase 24 U/L (0-40); Albumin Level 3.5 g/dL (3.5-5.0); Anion Gap 16 (12-20); Aspartate Amino Transferase 26 U/L (5-37); Bilirubin Total 0.9 mg/dL (0.0-1.0); Blood Urea Nitrogen 26 mg/dL (9-16); Calcium 9.1 mg/dL (8.4-10.2); Carbon Dioxide 24 mmol/L (22-29); Chloride 100 mmol/L (96-108); Estimated Glomerular Filt Rate 49; Glucose Random 130 mg/dL (60-115); Potassium 3.4 mmol/L (3.3-5.1); Sodium 137 mmol/L (135-145); Total Protein 6.4 g/dL (6.5-8.0)
[2024-12-18 02:49] LABS: Alkaline Phosphatase 78 U/L (39-117)
[2024-12-18 03:45] VITALS: BP 101/60; PULSE 76; RESP 18; TEMP 36.7; O2SAT 96
== END 2024-12-18 03:49 | disposition home or self-care (01) ==
PROVIDERS: Emergency Provider Emergency Medicine; PCP Internal Medicine
DX: R68.2 Dry mouth, unspecified (principal); R06.02 Shortness of breath; I50.20 Unspecified systolic (congestive) heart failure; I48.91 Unspecified atrial fibrillation; Z79.01 Long term (current) use of anticoagulants; Z79.899 Other long term (current) drug therapy
CPT/HCPCS: 36415; 80053; 83880; 84484; 85025; 93005; 99283; 99284

== ENCOUNTER → 2024-12-18 01:00 | Outpatient (BNV) | payer MEDICARE, MEDICAID, SELFPAY | PROVIDERS: Emergency Provider Emergency Medicine; PCP Internal Medicine; Visit Provider Internal Medicine Cardiovascular Disease | DX: I44.0 Atrioventricular block, first degree (principal); I45.2 Bifascicular block | CPT/HCPCS: 93010 ==

== ENCOUNTER 2024-12-24 08:40 | Outpatient (REF) | payer MEDICARE, MEDICAID, SELFPAY ==
--- OUTSIDE RECORDS SUMMARY | 2024-12-24 09:03 | XMS_ITS | Encounter Summary ---
Author Organization [facility] Address [address] [place] [address] Care Team Providers Care Mosaicist Name Role Phone Yonathan Womack MD Primary Care Provider [phone]- [phone] Reason for Visit * Reason Onset Date Comments Med Refill 11/29/2024 Metoprolol Encounter Details Date Type Department Care Team (Late st Contact Info) Description 11/29/2024 Telephone [facility] Cardiology [facility] [address] [place] [address] [address] [place] [phone] Eddie Granados MD [address] [place] [address] [address]IVE [address] [place] [address] Med Refill (Metoprolol) Social History Tobacco Use [...] day supply, please send to [facility] in [place]. documented in this encounter Plan of Treatment Upcoming Encounters Date Type Department Care Team (Late st Contact Info) Description 12/31/2024 11:30 AM EDT Office Visit [facility] Cardiology [facility] [address] [place] [address] [place] [address] Michaela Anguiano NP [address] [place] [address] [address] [place] [address] [place] [address] 01/24/2025 9:10 AM EDT Office Visit [facility] Cardiology [facility] [place] [address] Michaela Anguiano NP [address] [place] [address] [address] [place] [address] [place] [address] documented as of this encounter Visit Diagnoses [...] documented as of this encounter Care Teams Mosaicist Relationship Specialty Start Date End Date Yonathan Womack MD [address] [place] [address] PCP - General 12/26/12 documented as of this encounter
--- OUTSIDE RECORDS SUMMARY | 2024-12-24 09:03 | XMS_ITS | Encounter Summary ---
Author Organization [facility] Address [address] [place] [address] Care Team Providers Care Baker Bench Name Role Phone Yonathan Womack MD Primary Care Provider [phone]- [phone] Reason for Visit * Reason Onset Date Comments Med Refill 12/20/2024 Encounter Details Date Type Department Care Team (Late st Contact Info) Description 12/20/2024 Telephone [facility] [address] [place] [address] Michaela Anguiano NP [address] [place] [address] [address] [place] [address] [place] [address] Med Refill Social History Tobacco Use Types Packs/Day Years [...] as of this encounter Progress Notes * Theresa Perez - 12/20/2024 3:30 PM EDT Patient returned call, states his Jardiance got refilled and it is all set. * Kourtney Rahman MA - 12/20/2024 2:05 PM EDT Lvm for pt to cb * Agustin Gregory - 12/20/2024 1:40 PM EDT Patient called today because [facility] will not fill the prescription of jardiance 10mg daily per patient cause they're nasty . They are saying he got it filled somewhere else and will not fill it for him but he does not have any of this medication. Please reach out at [phone] to discuss options. Patient states he only gets his prescriptions through [facility]. documented in this encounter Plan of Treatment Upcoming Encounters Date Type Department Care Team (Late st Contact Info) Description 12/31/2024 11:30 AM EDT Office Visit [facility] [address] [place] [address] [address] [place] [address] [place] [phone] Michaela Anguiano NP [address] [place] [address] Dr [place] [address] [place] [address] 01/24/2025 9:10 AM EDT Office Visit [facility] [address] [place] [address] Michaela Anguiano NP [address] [place] [address] Dr [place] [address] [place] [address] documented as of this encounter Visit Diagnoses Not on filedocumented in this encounter Care Teams Baker Bench Relationship Specialty Start Date End Date Yonathan Womack MD [address] [place] [address] [address] [place] [address] PCP - General 12/26/12 documented as of this encounter
--- OUTSIDE RECORDS SUMMARY | 2024-12-24 09:03 | XMS_ITS | Encounter Summary ---
Author Organization [facility] Address [address] [place] [address] Care Team Providers Care Fire Control Officer Name Role Phone Yonathan Womack MD Primary Care Provider [phone]- [phone] Encounter Details Date Type Department Care Team (Late st Contact Info) Description 12/23/2024 Telephone [facility] [address] [place] [address] [place] [phone] Cristian Zamarripa NP [address] [place] [address] [address] [place] [address] [place] [address] Social History Tobacco Use Types Packs/Day Years [...] as of this encounter Progress Notes * Cristian Zamarripa NP - 12/23/2024 10:32 PM EDT Patient called weekend service and was unsure if he took his Entresto and had an extra dose in his med box or if he just didn't take it. I instruction him not to take the dose he had in his hand and monitor his blood pressure. He will resume regular dosing tonight. documented in this encounter Plan of Treatment Upcoming Encounters Date Type Department Care Team (Late st Contact Info) Description 12/31/2024 11:30 AM EDT Office Visit [address] [place] [address] Michaela Anguiano NP [address] [place] [address] [address] [place] [address] [place] [address] 01/24/2025 9:10 AM EDT Office Visit [address] [place] [address] Michaela Anguiano NP [address] [place] [address] [address] [place] [address] [place] [address] documented as of this encounter Visit Diagnoses Not on filedocumented in this encounter Care Teams Fire Control Officer Relationship Specialty Start Date End Date Yonathan Womack MD [address] [place] [address] Drive [address] [place] [address] PCP - General 12/26/12 documented as of this encounter
--- OUTSIDE RECORDS SUMMARY | 2024-12-24 09:04 | XMS_ITS ---
Author Organization Yonathan Womack MD Address [address] [place] [id number] Care Team Providers Care Systems Consultant Name Role Phone Yonathan Womack Primary Care Provider [phone] REASON FOR VISIT Discharge summary rec'd Encounters Encounter Location Date Provider Diagnosis Yonathan Womack MD [address] [facility] [address] [place] [phone] 12/13/2024 Yonathan Womack Plan Of Treatment Next Appt Details Provider Name:Yonathan mendoza, 01/10/2025 10:15:00 AM, [address] [place] [address], [address] [place] [address], [id number], Provider Name:Yonathan mendoza, 01/10/2025 10:15:00 AM, [address] [place] [address], [place] [address], [place], [phone], Provider Name:Yonathan mendoza, 03/21/2025 07:00:00 AM, [address] [place] [address], [address], [phone], Provider Name:Yonathan Pan ier, 09/17/2025 07:45:00 AM, [address], [address], [place], [phone], Provider Name:Yonathan Pan ier, 09/24/2025 01:00:00 PM, [address], [address], [place], [phone], Progress Notes * STEVEN NUNEZDOB: [birth year] (79 yo M)Acc No.[id number]:12/13/2024 Patient:?STEVEN NUNEZ :1945???Age:79 Y???Sex:Male Address:[address] [place] [address], [address] * true * Date:? Generated for Douglas whitehead/Galina/eTransmitting on:?12/24/2024 09:03 AM EDT
--- OUTSIDE RECORDS SUMMARY | 2024-12-24 09:04 | XMS_ITS ---
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 Role Phone Shanta Yonathan Primary Care Provider Allergies Allergen (clinical drug ingredient) Drug/Non Drug Allergy documented on EMR Reaction Allergy Type Onset Date Status gadolinium (uncoded) red eues Allergy Active Adedison (uncoded) Elevated BP Allergy Active erythromycin Erythromyicin (uncoded) GI Upset Allergy Active erythromycin Ilisone (uncoded) GI Upset Allergy Active IVPDye (uncoded) Convulsion Allergy Ac tive Reason For Referral Reason ACUTE CHRONIC SYSTOL IC CHF Diagnosis 1 Acute on chronic sys tolic (congestive) heart failure (I50.23) Referral Organization Yonathan Womack MD Referring Provider First Name Yonathan Referring Provider Last Name Shanta Referring Provider Speciality Internal M edicine Referred Provider Azeem Clayton Referred Provider Specialty Cardiovascul ar Disease General Notes Chelle Skelton 12/20/2024 09:57:31 AM >REFERRAL FAXED TO [facility] FOR NEW PATIENT APPT Referral Priority Routine REASON FOR VISIT PH/TCM, Patient has been to the ER 6 times during the month of November and admitted twice Medications Medication SIG (Take, Route, Frequency, Duration) Notes Start Date End Date Status Ondansetron 4 MG 1 tablet on the tong ue and allow to dissolve Orally twice a day for 5 days 12/17/2024 Active Tylenol Extra Strength 500 MG 1/2 tablet Orally every 6 hrs Not-Taking Triamcinolone Acetonide 0.5 % 1 application to affected area Externally Twice a day for 30 days 10/03/2014 Not-Taking Imodium A-D 2 MG 1 tablet as needed Orally Four times a day Not-Taking Nitrostat 0.4 MG as directed Sublingu al every 5 mins times 3 for 30 days 11/30/2016 Not-Taking Spironolactone 25 MG 1 tablet Orally Not-Taking Entresto 24-26 MG 1 tablet Orally Twic e a day Active Warfarin Sodium 2.5 MG TAKE 3 TABLETS BY MOUTH 6 DAYS A WEEK AND 2 TABLETS BY MOUTH 1 DAY A WEEK Active Furosemide 20 MG 2 tabs twice a day Orally twice a day Active Omeprazole 20 MG TAKE 1 CAPSULE BY MOUTH EVERY DAY 30 MINUTES BEFORE BREAKFAST Active Metoprolol Succinate 50 MG 1 capsule Ora lly Once a day Active Simvastatin 40 MG TAKE 1/2 TABLET BY MOUTH EVERY EVENING Active FreeStyle Lancets - USE TO CHECK BLOOD SUGAR ONCE A DAY for 90 Active FreeStyle Lite Test - TEST BLOOD SUGAR O NCE EVERY DAY for 50 Active LORazepam 0.5 MG TAKE 1 TABLET BY CASSIUS TH EVERY DAY NEEDED Orally Once a day for 30 days 09/04/2024 Active Co Q 10 100 MG 1 capsule with a indy l Orally Once a day for 30 day(s) Active Triamcinolone Acetonide 0.1 % 1 application Externally Once a day for 30 days 07/23/2021 Active Vital Signs Blood pressure systolic 124 mm Hg 12/21/19 25 Blood pressure diastolic 58 mm Hg 025 Height 69 in 12/20/2024 Weight 205 lbs 12/20/2024 BMI 30.27 kg/m2 12/20/2024 weight is down 4 pounds [facility] 10-25-24 Encounters Encounter Location Date Provider Diagnosis Yonathan Womack MD [address] [place] [address] Drive [address] [place], [place] [phone] 12/20/2024 Yonathan Womack Acute on chronic systolic congestive heart failure I50.23 ; Atrial fibrillation, chronic I48.20 and Anticoagulant long-term use Z79.01 Assessments Encounter Date Diagnosis (ICD Code) Assessment Notes Treatment Notes Treatment Clinical Notes Section Notes 12/20/2024 Acute on chronic systolic congestive heart failure (ICD-10 - I50.23) send referral to dr clayton 12/20/2024 Atrial fibrillation, chronic (ICD-10 - I48.20) seems to be in sinus today 12/20/2024 Anticoagulant long-term use (ICD-10 - Z79.01) followed by coumadin clinic Plan Of Treatment Medication Medication Name Sig Start Date Stop Date Notes Entresto 24-26 MG 1 tablet Orally Twice a day Warfarin Sodium 2.5 MG TAKE 3 TABLETS BY MOUTH 6 DAYS A WEEK AND 2 TABLETS BY MOUTH 1 DAY A WEEK Furosemide 20 MG 2 tabs twice a day O rally twice a day Metoprolol Succinate 50 MG 1 capsule Orally Once a day Treatment Notes Assessment Notes Acute on chronic systolic congestive hea rt failure send referral to dr clayton Atrial fibrillation, chronic seems to be in sinus today Anticoagulant long-term use followed by coumadin clinic Referrals Referral Date Details 12/20/2024 12/20/2024, ACUTE CH RONIC SYSTOLIC CHF, Azeem Clayton Next Appt Details Follow Up: 3 Weeks, Reason: Provider Name:Yonathan mendoza, 01/10/2025 10:15:00 AM, [address] [place] [address], [address], [phone], Provider Name:Yonathan mendoza, 01/10/2025 10:15:00 AM, [address] [place] [address], [address], [phone], Provider Name:Yonathan mendoza, 03/21/2025 07:00:00 AM, [address] [place] [address], [address], [phone], Provider Name:Yonathan mendoza, 09/17/2025 07:45:00 AM, [address] [place] [address], [address], [phone], Provider Name:Yonathan mendoza, 09/24/2025 01:00:00 PM, [address] [facility], [address], [place], [place], [phone], Progress Notes * STEVEN NUNEZDOB: [birth year] (79 yo M)Acc No.[id number]:12/20/2024 Patient:?STEVEN NUNEZ Provider:?Yonathan Womack MD :1945???Age:79 Y???Sex:Male Jr e:12/20/2024 Address:[address] [place], [place] [phone] Subjective: * Chief Complaints: * ???1. PH/TCM. 2. Patient has been to the ER 6 times during the month of November and admitted twice. * HPI: ???Symptom(s):?patient is a 79 yo male here for transitional care management visit for recent discharge from hospital. Discharge summary has been reviewed and medications reconcilled/ was in hospital for chf and gets short of breath and elevated heart rate. gets lasix and sent home. got dehydrated / wants appt with dr clayton. wa started on amiodorone and jardiance and got sick so stopped it. ???Depression Screening:?PHQ-9?Thoughts that you would be better off or of hurting yourself in some way?Not at all,?Total Score?0.?Interpretation and Intervention?Depression Screening Findings?Negative,?Follow-Up for Depression?: review of PHQ-9 found negative result, no follow-up needed.? * ROS:?General/Constitutional:?Denies?Chills.?Denies?Fatigue.?Denies?Fever.?Denies?Headache.?ENT:?Patient denies?decreased sense of smell, any loss of taste, sore throat.?Respiratory:?Denies?Cough.?Denies?Shortness of breath at rest.?Denies?Shortness of breath with exertion.?Gastrointestinal:?Denies?Diarrhea.?Denies?Nausea.?Musculoskeletal:?Patient denies?muscle aches.?Peripheral Vascular:?Patient denies?red and blue toes.? * Medical History:?Cerebrovasc ular accident 2006, Refuses a stress test due to adverse event in the past., 05/30/2013 - colonoscopy due in 3 years. refuses to have another 2016. * Medications:?Taking Co Q 10 100 MG Capsule 1 capsule with a meal Orally Once a day , Taking Triamcinolone Acetonide 0.1 % Cream 1 application Externally Once a day , Taking Simvastatin 40 MG Tablet TAKE 1/2 TABLET BY MOUTH EVERY EVENING , Taking FreeStyle Lite Test - Strip TEST BLOOD SUGAR ONCE EVERY DAY , Taking FreeStyle Lancets - Miscellaneous USE TO CHECK BLOOD SUGAR ONCE A DAY , Taking LORazepam 0.5 MG Tablet TAKE 1 TABLET BY MOUTH EVERY DAY NEEDED Orally Once a day , Taking Metoprolol Succinate 50 MG Capsule ER 24 Hour Sprinkle 1 capsule Orally Once a day , Taking Omeprazole 20 MG Capsule Delayed Release TAKE 1 CAPSULE BY MOUTH EVERY DAY 30 MINUTES BEFORE BREAKFAST , Taking Warfarin Sodium 2.5 MG Tablet TAKE 3 TABLETS BY MOUTH 6 DAYS A WEEK AND 2 TABLETS BY MOUTH 1 DAY A WEEK , Taking Entresto 24-26 MG Tablet 1 tablet Orally Twice a day , Taking Furosemide 20 MG Tablet 2 tabs twice a day Orally twice a day , Taking Ondansetron 4 MG Tablet Disintegrating 1 tablet on the tongue and allow to dissolve Orally twice a day , Not-Taking/PRN Spironolactone 25 MG Tablet 1 tablet Orally , Not-Taking/PRN Tylenol Extra Strength 500 MG Tablet 1/2 tablet Orally every 6 hrs , Not-Taking/PRN Imodium A-D 2 MG Tablet 1 tablet as needed Orally Four times a day , Not-Taking/PRN Triamcinolone Acetonide 0.5 % Cream 1 application to affected area Externally Twice a day , Not-Taking/PRN Nitrostat 0.4 MG Tablet Sublingual as directed Sublingual every 5 mins times 3 , Medication List reviewed and reconciled with the patient * Allergies:?IVPDye: Convulsio n, Ilisone: GI Upset, Erythromyicin: GI Upset, Adedison: Elevated BP, gadolinium: red eues. Objective: * Vitals:?Ht: 69, Wt: 205, BMI :30.27, BP:124/58, Wt-k.99. weight is down 4 pounds since 10-25-24. * Examination: ???General Examination: ?GENERAL APPEARANCE:?alert, well hydrated, in no distress.?HEAD:?normocephalic.?SKIN:?good turgor.?HEART:?no murmurs, rubs, gallops, regular rate and rhythm.?LUNGS:?no wheezes, rales, rhonchi, good air movement, clear to auscultation bilaterally.?EXTREMITIES:?no edema.? Assessment: * Assessment: 1.?Acute on chronic systolic congestive heart failure - I50.23 (Primary)???2.?Atrial fibrillation, chronic - I48.20???3.?Anticoagulant long-term use - Z79.01??? 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 Continue Metoprolol Succinate Capsule ER 24 Hour Sprinkle, 50 MG, 1 capsule, Orally, Once a day.?? Notes: seems to be in sinus today?? 3.?Anticoagulant long-term u se? Continue Warfarin Sodium Tablet, 2.5 MG, TAKE 3 TABLETS BY MOUTH 6 DAYS A WEEK AND 2 TABLETS BY MOUTH 1 DAY A WEEK.?? Notes: followed by coumadin clinic?? 4.?Others? Referral To:Azeem Clayton??Cardiovascular Disease ?Reason:ACUTE CHRONIC SYSTOLIC CHF * Follow Up:?3 Weeks * * The named appointment provid er may or may not be the originator of this progress note, and it is not deemed complete until electronically signed by the appointment provider. Sign off status: Pending * Provider:?Yonathan Womack MD Date:?0 12/20/2024 Generated for Douglas whitehead/Galina/Madyitting on:?12/24/2024 09:03 AM EDT History and Physical Notes * HPI (History of Present Illness) Category Sub-Category Detail Notes Category Not es Symptom(s) patient is a 79 yo male here for transitional care management visit for recent discharge from hospital. Discharge summary has been reviewed and medications reconcilled/ was in hospital for chf and gets short of breath and elevated heart rate. gets lasix and sent home. got dehydrated / wants appt with dr clayton. wa started on amiodorone and jardiance and got sick so stopped it. Depression Screening PHQ-9 Little interest or pleasure in doing things: Not at all Feeling down, depressed, or hopeless: No t at all Trouble falling or staying asleep, or sl eeping too much: Not at all Feeling tired or having little energy: N ot at all Poor appetite or overeating: Not at all Feeling bad about yourself o r that you are a failure, or have let yourself or your family down: Not at all Trouble concentrating on thi ngs, such as reading the newspaper or watching television: Not at all Moving or speaking so slowly that other people could have noticed; or the opposite, being so fidgety or restless that you have been moving around a lot more than usual: Not at all Thoughts that you would be b sirena off or of hurting yourself in some way: Not at all Total Score: 0 Interpretation and Intervention Depression Adelaide larsen Findings: Negative Follow-Up for Depression: : review of PH Q-9 found negative result, no follow-up needed Examination Category Sub-Category Detail Notes Category Not es General Examination GENERAL APPEARANCE: alert, w ell hydrated, in no distress HEAD: normocephalic HEART: no murmurs, rubs, ga llops, regular rate and rhythm LUNGS: no wheezes, rales, r honchi, good air movement, clear to auscultation bilaterally SKIN: good turgor EXTREMITIES: no edema Consultation Request Notes Referral Date Referring Provider Referred Provider Not es 12/20/2024 Yonathan Womack Nirav ACUTE CHRON IC SYSTOLIC CHF
--- OUTSIDE RECORDS SUMMARY | 2024-12-24 09:04 | XMS_ITS | Patient Health Record ---
Author Organization Yonathan Womack MD Address [address] [place], [place] [id number] Care Team Providers Care Research Editor Name Role Phone Yonathan Womack Primary Care [...] ff Reviewed date:09/17/2024 05:23:58 PM Interpretation: Performing Lab:[facility], [address] [place] [phone] Notes/Report: White Blood Count 8.3 4.8-10.8 X10*3/uL [...] NRBC Abs Auto 0.000 0.0-0.012 X10*3/uL Comprehensive [place]. Panel Fa st Reviewed date:09/17/2024 05:21:17 PM Interpretation: Performing Lab:[facility], [address] [place] [phone] Notes/Report: Sodium 137 135-145 mmol/L Potassium 4.2 [...] Panel Reviewed date:09/17/2024 05:02:42 PM Interpretation: Performing Lab:[address] [phone] Notes/Report: Triglycerides 85 <150 mg/dL Desirable Triglyceride: [...] Total Reviewed date:09/17/2024 05:02:53 PM Interpretation: Performing Lab:[address] [phone] Notes/Report: Vitamin D 25-OH Total 66.5 >30 [...] A1c Reviewed date:09/17/2024 05:01:59 PM Interpretation: Performing Lab:[facility], [address] [place] [phone] Notes/Report: Hemoglobin A1c % 5.9 <6.0 % [...] average glucose, using the formula of the B0B-Dskrsnx Average Glucose study (ADAG), Diabetes Care, Vol.31,#8, Mar. 2007 INR WHOLE BLOOD POC Reviewed date:01/05/2024 12:45:42 PM Interpretation: Performing Lab:[facility], [address] [place] [phone] Notes/Report: PT, INR - Anti Coag Clinic 2.1 0.9-1.1 METER #: [id number] INTERNATIONAL NORMALIZED RATIO (INR) REFERENCE RANGES Reference [...] OC Reviewed date:01/05/2024 12:51:44 PM Interpretation: Performing Lab:[facility], [address] [place] [phone] Notes/Report: Prothrombin Time Whole Bld POC 25.7 11.1-13.5 sec Complete Blood Count Auto Di ff Reviewed date:01/13/2024 04:12:10 PM Interpretation: Performing Lab:[facility], [address] [place] [phone] Notes/Report: White Blood Count 7.9 4.8-10.8 X10*3/uL [...] INR Reviewed date:01/13/2024 04:05:04 PM Interpretation: Performing Lab:[facility], [address] [place] [phone] Notes/Report: Prothrombin Time 23.8 11.1-13.3 SEC INTERNATIONAL [...] Time Reviewed date:01/13/2024 04:04:44 PM Interpretation: Performing Lab:[facility], [address] [place] [phone] Notes/Report: Partial Thromboplastin Time 38.4 26.0-36.8 SEC For information regarding the monitoring of direct thrombin inhibitors, please refer to Pharmacy. Liver Panel Reviewed date:01/13/2024 04:05:24 PM Interpretation: Performing Lab:[facility], [address] [place] [phone] Notes/Report: Bilirubin Total 0.8 0.0-1.0 mg/dL Bilirubin Direct 0.3 0.0-0.5 mg/dL Aspartate Amino Transferase 18 5-37 U/L Alanine Aminotransferase 16 0-40 U/L Total Protein 6.9 6.5-8.0 g/dL Albumin Level 4.0 3.5-5.0 g/dL Alkaline Phosphatase 72 39-117 U/L Basic Metabolic Panel Reviewed date:01/13/2024 04:06:37 PM Interpretation: Performing Lab:[facility], [address] [place] [phone] Notes/Report: Sodium 138 135-145 mmol/L Potassium 3.8 [...] Glomerular Filt Rate > 60 NOTE: For -British individuals, multiply the result by 1.210. Chronic Kidney Disease: Estimated GFR < 60 mL/min/1.73m2 Severe Kidney Disease: Estimated GFR < 15 mL/min/1.73m2 Glucose Random 131 60-115 mg/dL Calcium 9.6 8.4-10.2 mg/dL B Type Natriuretic Peptide Reviewed date:01/13/2024 04:04:32 PM Interpretation: Performing Lab:[facility], [address] [place] [phone] Notes/Report: B Type Natriuretic Peptide 246 <100 pg/mL For those patients who are being treated with Natrecor (nesiritide, recombinant BNP), BNP testing should be performed at least two hours post treatment in order to ensure that only endogenous levels of BNP are detected. US venous duplex LE LT Reviewed date:01/16/2024 01:42:02 PM Interpretation: Performing Lab: Notes/Report: [address] [address] Ultrasound Report Signed Patient: Steven Tiwari MR#: [id number] : 1945 Acct:[id number] Age/Sex: 78 / M ADM Date: 01/13/24 Loc: HO.ED Attending Dr: Ordering Physician: Shae Fernandez Date of Service: 01/13/24 Procedure(s): US venous duplex LE LT Accession Number(s): [id number] cc: Yonathan Womack MD; Shae Fernandez EXAMINATION: [...] in OV> 01/13/24 163 DD/ 1540 TD/TT: [employer] Maker: ILIANA [address] [address] Ultrasound Report Signed Patient: Steven Tiwari MR#: [id number] : 1945 Acct:[id number] Age/Sex: 78 / M ADM Date: 01/13/24 Loc: HO.ED Attending Dr: Ordering Physician: Shae Fernandez Date of Service: 01/13/24 Procedure(s): US romeo ous duplex LE LT Accession Number(s): [id number] cc: Yonathan Womack MD; Shae Fernandez EXAMINATION: US VENOUS ULTRASOUND WITH DOPPLER LOWER EXTREMITY, LEFT CLINICAL INFORMATION: Left calf pain. Posterior knee pain. COMPARISON: None available. TECHNIQUE: Ultrasound of the de ep veins is performed from the hip to the calf with compression sonograp hy and color and pulse Doppler assessment. Spectral analysis with color- flow imaging is performed. FINDINGS: There is normal veno us compression and respiratory variation and augmented flow. The visualized common femoral vein, superficial femoral vein, profunda femor al vein, popliteal vein, and the trifurcation region shows no evid ence of deep venous thrombosis. There is a popliteal cyst measu ring 3.6 x 0.9 x 2.4 cm. If the patient's symptoms persist, followup ultrasound in 5 days 7 days might be of value to exclude proximal propagation from a non-visualized calf vein. U S/US venous duplex LE LT IMPRESSION: No DVT demonstrated in the left lower extremity. There is a left popliteal cyst measuring 3.6 x 0.9 x 2.4 cm. Dictated By: Domenico Romano Jr DO Signed By: <Electronically signed by Domenico Romano Jr, DO in OV> 01/13/24 1639 DD/ 1540 TD/TT: Soft Work Wrapper Examiner ist: ILIANA INR WHOLE BLOOD POC Reviewed date:02/02/2024 11:56:26 AM Interpretation: Performing Lab:[facility], [address] [place] [phone] Notes/Report: PT, INR - Anti Coag Clinic 2.0 0.9-1.1 METER #: [id number] INTERNATIONAL NORMALIZED RATIO (INR) REFERENCE RANGES Reference [...] OC Reviewed date:02/02/2024 11:56:57 AM Interpretation: Performing Lab:[facility], [address] [place] [phone] Notes/Report: Prothrombin Time Whole Bld POC 24.3 11.1-13.5 sec INR WHOLE BLOOD POC Reviewed date:02/21/2024 12:32:10 PM Interpretation: Performing Lab:[facility], [address] [place] [phone] Notes/Report: PT, INR - Anti Coag Clinic 2.6 0.9-1.1 METER #: [id number] INTERNATIONAL NORMALIZED RATIO (INR) REFERENCE RANGES Reference [...] OC Reviewed date:02/21/2024 12:33:44 PM Interpretation: Performing Lab:[facility], [address] [place] [phone] Notes/Report: Prothrombin Time Whole Bld POC 30.9 11.1-13.5 sec INR WHOLE BLOOD POC Reviewed date:03/20/2024 12:25:26 PM Interpretation: Performing Lab:[facility], [address] [place] [phone] Notes/Report: PT, INR - Anti Coag Clinic 2.2 0.9-1.1 METER #: [id number] INTERNATIONAL NORMALIZED RATIO (INR) REFERENCE RANGES Reference [...] OC Reviewed date:03/20/2024 12:37:24 PM Interpretation: Performing Lab:[facility], [address] [place] [phone] Notes/Report: Prothrombin Time Whole Bld POC 26.6 11.1-13.5 sec INR WHOLE BLOOD POC Reviewed date:04/17/2024 12:02:54 PM Interpretation: Performing Lab:[facility], [address] [place] [phone] Notes/Report: PT, INR - Anti Coag Clinic 2.1 0.9-1.1 METER #: [id number] INTERNATIONAL NORMALIZED RATIO (INR) REFERENCE RANGES Reference [...] OC Reviewed date:04/17/2024 11:58:45 AM Interpretation: Performing Lab:[facility], [address] [place] [phone] Notes/Report: Prothrombin Time Whole Bld POC 25.0 11.1-13.5 sec INR WHOLE BLOOD POC Reviewed date:05/15/2024 11:36:59 AM Interpretation: Performing Lab:[facility], [address] [place] [phone] Notes/Report: PT, INR - Anti Coag Clinic 1.8 0.9-1.1 METER #: [id number] INTERNATIONAL NORMALIZED RATIO (INR) REFERENCE RANGES Reference [...] OC Reviewed date:05/15/2024 10:55:33 AM Interpretation: Performing Lab:[facility], [address] [place] [phone] Notes/Report: Prothrombin Time Whole Bld POC 21.1 11.1-13.5 sec INR WHOLE BLOOD POC Reviewed date:05/29/2024 10:08:18 AM Interpretation: Performing Lab:[facility], [address] [place] [phone] Notes/Report: PT, INR - Anti Coag Clinic 2.0 0.9-1.1 METER #: [id number] INTERNATIONAL NORMALIZED RATIO (INR) REFERENCE RANGES Reference [...] OC Reviewed date:05/29/2024 10:08:25 AM Interpretation: Performing Lab:[facility], [address] [place] [phone] Notes/Report: Prothrombin Time Whole Bld POC 24.0 11.1-13.5 sec INR WHOLE BLOOD POC Reviewed date:06/26/2024 10:55:58 AM Interpretation: Performing Lab:[facility], [address] [place] [phone] Notes/Report: PT, INR - Anti Coag Clinic 2.6 0.9-1.1 METER #: [id number] INTERNATIONAL NORMALIZED RATIO (INR) REFERENCE RANGES Reference [...] OC Reviewed date:06/26/2024 10:55:20 AM Interpretation: Performing Lab:[facility], [address] [place] [phone] Notes/Report: Prothrombin Time Whole Bld POC 31.3 11.1-13.5 sec INR WHOLE BLOOD POC Reviewed date:07/24/2024 12:43:30 PM Interpretation: Performing Lab:[facility], [address] [place] [phone] Notes/Report: PT, INR - Anti Coag Clinic 2.7 0.9-1.1 METER #: [id number] INTERNATIONAL NORMALIZED RATIO (INR) REFERENCE RANGES Reference [...] OC Reviewed date:07/24/2024 12:43:38 PM Interpretation: Performing Lab:[facility], [address] [place] [phone] Notes/Report: Prothrombin Time Whole Bld POC 32.5 11.1-13.5 sec INR WHOLE BLOOD POC Reviewed date:08/23/2024 12:31:58 PM Interpretation: Performing Lab:[facility], [address] [place] [phone] Notes/Report: PT, INR - Anti Coag Clinic 2.6 0.9-1.1 METER #: [id number] INTERNATIONAL NORMALIZED RATIO (INR) REFERENCE RANGES Reference [...] OC Reviewed date:08/23/2024 12:31:49 PM Interpretation: Performing Lab:[facility], [address] [place] [phone] Notes/Report: Prothrombin Time Whole Bld POC 31.7 11.1-13.5 sec PSA,Total (Free>4and<10) Reviewed date:09/17/2024 05:00:46 PM Interpretation: Performing Lab:[facility], [address] [place] [phone] Notes/Report: PSA,Total (Free>4and<10) 0.21 0.00-4.00 ng/mL A [...] POC Reviewed date:09/20/2024 11:51:44 AM Interpretation: Performing Lab:[facility], [address] [place] [phone] Notes/Report: PT, INR - Anti Coag Clinic 2.2 0.9-1.1 METER #: [id number] INTERNATIONAL NORMALIZED RATIO (INR) REFERENCE RANGES Reference [...] OC Reviewed date:09/20/2024 12:12:38 PM Interpretation: Performing Lab:[facility], [address] [place] [phone] Notes/Report: Prothrombin Time Whole Bld POC 26.6 11.1-13.5 sec INR WHOLE BLOOD POC Reviewed date:10/18/2024 12:44:55 PM Interpretation: Performing Lab:[facility], [address] [place] [phone] Notes/Report: PT, INR - Anti Coag Clinic 2.9 0.9-1.1 METER #: [id number] INTERNATIONAL NORMALIZED RATIO (INR) REFERENCE RANGES Reference [...] OC Reviewed date:10/18/2024 12:44:46 PM Interpretation: Performing Lab:[facility], [address] [place] [phone] Notes/Report: Prothrombin Time Whole Bld POC 34.6 11.1-13.5 sec US renal BI Reviewed date:11/13/2024 12:24:24 PM Interpretation: Performing Lab: Notes/Report: [address] [address] Ultrasound Report Signed Patient: Steven Tiwari MR#: [id number] : 1945 Acct:[id number] Age/Sex: 79 / M ADM Date: 11/12/24 Loc: HO.US Attending Dr: Yonathan Womack MD Ordering Physician: Yonathan Womack MD Date of Service: 11/12/24 Procedure(s): US renal BI Accession Number(s): [id number] cc: Yonathan Womack MD CLINICAL HISTORY: Disorders of adrenal gland US RENAL Comparison: US/CA/SR - US ABDOMEN COMPLETE - 10/06/23 08:38 [...] Rosales MD in OV> 11/12/24 1740 DD/ 1739 TD/TT: 11/12/24 173 [employer] Maker: [place] [address] Ultrasound Report Signed Patient: Steven Tiwari MR#: [id number] : 1945 Acct:[id number] Age/Sex: 79 / M ADM Date: 11/12/24 Loc: HO.US Attending Dr: Yonathan Womack MD Ordering Physician: Yonathan Womack MD Date of Service: 11/12/24 Procedure(s): US evelyne Aranda Accession Number(s): [id number] cc: Yonathan Womack MD CLINICAL HISTORY: Disorders of adrenal gland US RENAL Comparison: US/CA/SR - US ABDOMEN COMPLETE - 10/06/23 08:38 EST Findings: The right kidney measures 11.4 cm in length. Renal cortical thickness and echotexture are with in normal limits. No hydronephrosis or shadowing calculus. There are 2 exophytic cysts in the midpole measure 1.4 cm and 1.0 cm. At least 1 o f the cysts was seen on prior study. The left kidney anupam ures 13.4 cm in length. The upper pole is not well-visualized, obscured by bowel gas. Mild diffuse renal cortical thinning with increa sed cortical echoes can be seen with medical [...] 11/12/24 1740 DD/ 173 TD/TT: 11/12/24 173 [employer] Maker: INR WHOLE BLOOD POC Reviewed date:11/19/2024 12:19:08 PM Interpretation: Performing Lab:[facility], [address] [place] [phone] Notes/Report: PT, INR - Anti Coag Clinic 2.7 0.9-1.1 METER #: [id number] INTERNATIONAL NORMALIZED RATIO (INR) REFERENCE RANGES Reference [...] OC Reviewed date:11/19/2024 12:18:23 PM Interpretation: Performing Lab:[facility], [address] [place] [phone] Notes/Report: Prothrombin Time Whole Bld POC 32.8 11.1-13.5 sec Complete Blood Count Auto Di ff Reviewed date:12/10/2024 04:29:58 PM Interpretation: Performing Lab:[facility], [address] [place] [phone] Notes/Report: White Blood Count 7.7 4.8-10.8 X10*3/uL Red Blood Count 4.94 4.60-5.80 X10*6/uL Hemoglobin 15.1 14.0-18.0 g/dl Hematocrit 42.9 42.0-52.0 % Mean Corpuscular Volume 86.8 80.0-98.0 fL Mean Corpuscular Hemoglobin 30.6 27.0-33.0 pg Mean Corpuscular HGB Conc 35.2 31.0-36.0 g/dl Red Cell Distribution Width 13.6 11.0-16.0 % Platelet Count 161 160-400 X10*3/uL Mean Platelet Volume 10.5 9.4-12.4 fL Neutrophils Percent Auto 53.7 45-73 % Imm Gran Pct Auto 0.3 0.0-0.4 % Lymphocytes Percent Auto 35.4 20-40 % Monocytes Percent Auto 9.2 2-11 % Eosinophils Percent Auto 1.0 0-4 % Basophils Percent Auto 0.4 0-2 % NRBC Pct Auto 0.0 0.0-0.2 /100WBC Neutrophils Absolute Auto 4.1 2.0-8.3 x10*3/uL Imm Gran Abs Auto 0.02 0.00-0.03 X10*3/uL Lymphocytes Absolute Auto 2.7 1.2-4.9 X10*3/uL Monocytes Absolute Auto 0.7 0.1-1.2 X10*3/uL Eosinophils Absolute Auto 0.1 0.0-0.4 X10*3/uL Basophils Absolute Auto 0.0 0.0-0.2 X10*3/uL NRBC Abs Auto 0.000 0.0-0.012 X10*3/uL Prothrombin Time INR Reviewed date:12/10/2024 04:19:38 PM Interpretation: Performing Lab:[address] [phone] Notes/Report: Prothrombin Time 31.9 10.9-12.4 SEC INTERNATIONAL NORM RATIO 2.7 0.9-1.1 INTERNATIONAL NORMALIZED RATIO (INR) REFERENCE RANGES [...] 2.5 - 3.5 Partial Thromboplastin Time Reviewed date:12/10/2024 04:20:01 PM Interpretation: Performing Lab:[facility], [address] [place] [phone] Notes/Report: Partial Thromboplastin Time 41.3 26.0-36.8 SEC For information regarding the monitoring of direct thrombin inhibitors, please refer to Pharmacy. Comprehensive Met. Panel Reviewed date:12/10/2024 04:27:04 PM Interpretation: Performing Lab:[facility], [address] [place] [phone] Notes/Report: Sodium 137 135-145 mmol/L Potassium 3.5 3.3-5.1 mmol/L Slight Hemolysis.Interpret result with caution. Chloride 102 96-108 mmol/L Carbon Dioxide 22 22-29 mmol/L Anion Gap 17 12-20 Blood Urea Nitrogen 24 9-16 mg/dL Creatinine 1.10 0.5-1.4 mg/dL Creatinine Clr Calc Pharmacy 61.3 eGFR (calculated from the MDRD study equation) and eCrCl (calculated from the Cockcroft-Gault equation) are based on different parameters and may not yield comparable results. If eCrCl result is absurd, please check patient's height/weight. Estimated Glomerular Filt Rate > 60 Chronic Kidney Disease: Estimated GFR < 60 mL/min/1.73m2 Severe Kidney Disease: Estimated GFR < 15 mL/min/1.73m2 Glucose Random 136 60-115 mg/dL Calcium 9.3 8.4-10.2 mg/dL Bilirubin Total 1.0 0.0-1.0 mg/dL Aspartate Amino Transferase 23 5-37 U/L Slight Hemolysis.Interpret result with caution. Alanine Aminotransferase 20 0-40 U/L Total Protein 6.8 6.5-8.0 g/dL Albumin Level 4.0 3.5-5.0 g/dL Alkaline Phosphatase 69 39-117 U/L Magnesium Reviewed date:12/10/2024 04:22:04 PM Interpretation: Performing Lab:[facility], [address] [place] [phone] Notes/Report: Magnesium 1.5 1.6-2.6 mg/dL Troponin-I High Sensitivity Reviewed date:12/10/2024 04:19:00 PM Interpretation: Performing Lab:[facility], [address] [place] [phone] Notes/Report: Troponin-I High Sensitivity 53.3 <3.5-35.0 ng/L The Rahman high sensitivity Troponin-I results should be used in conjunction with other diagnostic information such as ECG, clinical observations and information, and patient symptoms to aid in the diagnosis of CO. B Type Natriuretic Peptide Reviewed date:12/10/2024 04:19:53 PM Interpretation: Performing Lab:[facility], [address] [place] [phone] Notes/Report: B Type Natriuretic Peptide 1054 <100 pg/mL Lipase Reviewed date:12/10/2024 04:20:58 PM Interpretation: Performing Lab:[facility], [address] [place] [phone] Notes/Report: Lipase 29 8-78 U/L Glucose, Whole Blood Reviewed date:12/10/2024 04:26:07 PM Interpretation: Performing Lab:[facility], [address] [place] [phone] Notes/Report: Glucose, Whole Blood 120 60-115 mg/dL METER # : [id number] SARS-CoV2/FLU/RSV Reviewed date:12/10/2024 04:18:51 PM Interpretation: Performing Lab:[facility], [address] [place] [phone] Notes/Report: Influenza A PCR NEGATIVE Negative Influenza B PCR NEGATIVE Negative Resp Syncy Virus RNA Qual PCR NEGATIVE Negative SARS COV2 PCR INHOUSE NEGATIVE Negative All test results must be correlated with clinical findings. Negative results do not preclude SARS-CoV2, influenza A virus, influenza B virus and/or RSV infection and should not be used as the sole basis for treatment or other patient management decisions. Negative results must be combined with clinical observations, patient history, and epidemiological information. This test has not been evaluated for monitoring treatment of infection. This test has been authorized by the FDA under an Emergency Use Authorization (EUA) for use by authorized laboratories. Testing performed on the [employer] GeneXpert utilizing real-time RT-PCR. All SARS CoV2 and positive influenza A/B results are reported to [facility]. UA CC w/rflx Micro + Cult Reviewed date:12/12/2024 06:31:56 PM Interpretation: Performing Lab:[facility], [address] [place] [phone] Notes/Report: Urine, Clean Catch Color Urine Yellow Appearance Urine Clear PH 7.0 5.0-9.0 Glucose Urine UA Negative Negative mg/dL Urine Blood Negative Negative Specific [place] - Urine 1.010 1.005-1.025 Urine Protein Negative Neg-Trace mg/dL Urine Ketones Negative Negative mg/dL Nitrite Urine Negative Negative Leukocyte Esterase Urine Negative Negative Venous Blood Gases - POC Reviewed date:12/10/2024 04:26:00 PM Interpretation: Performing Lab:[facility], [address] [place] [phone] Notes/Report: VBG pH 7.53 7.32-7.43 METER #: [id number] additional_comment: [facility] VBG pCO2 34 METER #: [id number] additional_comment: [facility] VBG pO2 55 METER #: [id number] additional_comment: [facility] VBG Base Excess 6.3 METER #: [id number] additional_comment: [facility] VBG HCO3 28 22-26 mmol/L METER #: [id number] additional_comment: [facility] VBG O2 % Saturation 87.0 METER #: [id number] additional_comment: [facility] XR chest 1V Reviewed date:12/10/2024 04:19:30 PM Interpretation: Performing Lab: Notes/Report: [address] [address] XRay Report Signed Patient: Steven Tiwari MR#: [id number] : 1945 Acct:[id number] Age/Sex: 79 / M ADM Date: 12/09/24 Loc: HO.ED Attending Dr: Ordering Physician: Ian Fairchild MD Date of Service: 12/09/24 Procedure(s): XR chest 1V Accession Number(s): [id number] cc: Yonathan Womack MD; Ian Fairchild MD CLINICAL HISTORY: Dyspnea, rule out CHF 1 view chest x-ray Comparison: 12/08/2024 Findings: The lungs are clear. No significant change in cardiomediastinal silhouette. No pulmonary vascular congestion. No acute fracture. IMPRESSION: No significant change in cardiomediastinal silhouette. No pulmonary vascular congestion. This document has been electronically signed by: Neris Tavares MD on 12/09/2024 12:35:25 Dictated By: Neris Tavares MD Signed By: <Electronically signed by Neris Tavares MD in OV> 12/09/24 1237 DD/ 1235 TD/TT: 12/09/24 123 [employer] Maker: [address] [address] XRay Report Signed Patient: Steven Tiwari MR#: [id number] : 1945 Acct:[id number] Age/Sex: 79 / M ADM Date: 12/09/24 Loc: .ED Attending Dr: Ordering Physician: Ian Fairchild MD Date of Service: 12/09/24 Procedure(s): XR robin st 1V Accession Number(s): [id number] cc: Yonathan oWmack MD; Ian Fairchild MD CLINICAL HISTORY: Dyspnea, rule out CHF 1 view chest x-ray Comparison: 12/08/2024 Findings: The lungs are clear. No significant freeman e in cardiomediastinal silhouette. No pulmonary vascular congestion. No acute fracture. IMPRESSION: No significant freeman e in cardiomediastinal silhouette. No pulmonary vascular congestion. This document has be en electronically signed by: Neris Tavares MD on 12/09/2024 12:35:25 Dictated By: Uvaldo Tavares MD Signed By: <Electronically signed by Neris Tavares MD in OV> 12/09/24 1237 DD/ 1235 TD/TT: 12/09/24 1235 [employer] Maker: Complete Blood Count Auto Di ff Reviewed date:12/10/2024 04:30:36 PM Interpretation: Performing Lab:[facility], [address] [place] [phone] Notes/Report: White Blood Count 9.0 4.8-10.8 X10*3/uL Red Blood Count 5.07 4.60-5.80 X10*6/uL Hemoglobin 15.2 14.0-18.0 g/dl Hematocrit 45.3 42.0-52.0 % Mean Corpuscular Volume 89.3 80.0-98.0 fL Mean Corpuscular Hemoglobin 30.0 27.0-33.0 pg Mean Corpuscular HGB Conc 33.6 31.0-36.0 g/dl Red Cell Distribution Width 13.7 11.0-16.0 % Platelet Count 161 160-400 X10*3/uL Mean Platelet Volume 11.3 9.4-12.4 fL Neutrophils Percent Auto 53.4 45-73 % Imm Gran Pct Auto 0.6 0.0-0.4 % Lymphocytes Percent Auto 34.8 20-40 % Monocytes Percent Auto 9.2 2-11 % Eosinophils Percent Auto 1.3 0-4 % Basophils Percent Auto 0.7 0-2 % NRBC Pct Auto 0.0 0.0-0.2 /100WBC Neutrophils Absolute Auto 4.8 2.0-8.3 x10*3/uL Imm Gran Abs Auto 0.05 0.00-0.03 X10*3/uL Lymphocytes Absolute Auto 3.2 1.2-4.9 X10*3/uL Monocytes Absolute Auto 0.8 0.1-1.2 X10*3/uL Eosinophils Absolute Auto 0.1 0.0-0.4 X10*3/uL Basophils Absolute Auto 0.1 0.0-0.2 X10*3/uL NRBC Abs Auto 0.000 0.0-0.012 X10*3/uL Hold Lav - Possible Hematolo gy Reviewed date:12/10/2024 04:29:17 PM Interpretation: Performing Lab:[facility], [address] [place] [phone] Notes/Report: Hold Lav - Possible Hematology SEE NOTE Specimen will be held untested for 8 hours. Call Hematology if testing is desired. Prothrombin Time INR Reviewed date:12/10/2024 04:26:18 PM Interpretation: Performing Lab:[facility], [address] [place] [phone] Notes/Report: Prothrombin Time 28.1 10.9-12.4 SEC INTERNATIONAL NORM RATIO 2.4 0.9-1.1 INTERNATIONAL NORMALIZED RATIO (INR) REFERENCE RANGES [...] mechanical prosthetic heart valves: 2.5 - 3.5 Basic Metabolic Panel Reviewed date:12/10/2024 04:29:09 PM Interpretation: Performing Lab:[facility], [address] [place] [phone] Notes/Report: Sodium 136 135-145 mmol/L Potassium 3.4 3.3-5.1 mmol/L Chloride 98 96-108 mmol/L Carbon Dioxide 27 22-29 mmol/L Anion Gap 14 12-20 Blood Urea Nitrogen 29 9-16 mg/dL Creatinine 1.06 0.5-1.4 mg/dL Creatinine Clr Calc Pharmacy 63.2 eGFR (calculated from the MDRD study equation) and eCrCl (calculated from the Cockcroft-Gault equation) are based on different parameters and may not yield comparable results. If eCrCl result is absurd, please check patient's height/weight. Estimated Glomerular Filt Rate > 60 Chronic Kidney Disease: Estimated GFR < 60 mL/min/1.73m2 Severe Kidney Disease: Estimated GFR < 15 mL/min/1.73m2 Glucose Random 96 60-115 mg/dL Calcium 9.3 8.4-10.2 mg/dL Magnesium Reviewed date:12/10/2024 04:19:08 PM Interpretation: Performing Lab:[facility], [address] [place] [phone] Notes/Report: Magnesium 2.1 1.6-2.6 mg/dL Glucose, Whole Blood Reviewed date:12/10/2024 04:29:26 PM Interpretation: Performing Lab:[facility], [address] [place] [phone] Notes/Report: Glucose, Whole Blood 99 60-115 mg/dL METER # : [id number] Hold Lav - Possible Hematolo gy Reviewed date:12/11/2024 06:37:44 PM Interpretation: Performing Lab:[facility], [address] [place] [phone] Notes/Report: Hold Lav - Possible Hematology SEE NOTE Specimen will be held untested for 8 hours. Call Hematology if testing is desired. Prothrombin Time INR Reviewed date:12/11/2024 06:42:07 PM Interpretation: Performing Lab:[facility], [address] [place] [phone] Notes/Report: Pt in MARY JANE burgess 07Rosales Prothrombin Time 32.4 10.9-12.4 SEC INTERNATIONAL NORM RATIO 2.8 0.9-1.1 INTERNATIONAL NORMALIZED RATIO (INR) REFERENCE RANGES [...] mechanical prosthetic heart valves: 2.5 - 3.5 Basic Metabolic Panel Reviewed date:12/11/2024 06:36:39 PM Interpretation: Performing Lab:[facility], [address] [place] [phone] Notes/Report: Pt in MARY JANE burgess Sodium 135 135-145 mmol/L Potassium 3.4 3.3-5.1 mmol/L Chloride 96 96-108 mmol/L Carbon Dioxide 29 22-29 mmol/L Anion Gap 13 12-20 Blood Urea Nitrogen 26 9-16 mg/dL Creatinine 1.02 0.5-1.4 mg/dL Creatinine Clr Calc Pharmacy 65.0 eGFR (calculated from the MDRD study equation) and eCrCl (calculated from the Cockcroft-Gault equation) are based on different parameters and may not yield comparable results. If eCrCl result is absurd, please check patient's height/weight. Estimated Glomerular Filt Rate > 60 Chronic Kidney Disease: Estimated GFR < 60 mL/min/1.73m2 Severe Kidney Disease: Estimated GFR < 15 mL/min/1.73m2 Glucose Random 116 60-115 mg/dL Calcium 9.4 8.4-10.2 mg/dL Magnesium Reviewed date:12/11/2024 06:36:22 PM Interpretation: Performing Lab:[facility], [address] [place] [phone] Notes/Report: Pt in makenzieer MARY JANE 0701 Magnesium 2.2 1.6-2.6 mg/dL Hold Lav - Possible Hematolo gy Reviewed date:12/12/2024 12:34:00 PM Interpretation: Performing Lab:[facility], [address] [place] [phone] Notes/Report: Hold Lav - Possible Hematology SEE NOTE Specimen will be held untested for 8 hours. Call Hematology if testing is desired. Prothrombin Time INR Reviewed date:12/12/2024 12:34:31 PM Interpretation: Performing Lab:[facility], [address] [place] [phone] Notes/Report: Prothrombin Time 37.1 10.9-12.4 SEC INTERNATIONAL NORM RATIO 3.2 0.9-1.1 INTERNATIONAL NORMALIZED RATIO (INR) REFERENCE RANGES [...] mechanical prosthetic heart valves: 2.5 - 3.5 Basic Metabolic Panel Reviewed date:12/12/2024 12:34:21 PM Interpretation: Performing Lab:[facility], [address] [place] [phone] Notes/Report: Sodium 134 135-145 mmol/L Potassium 3.7 3.3-5.1 mmol/L Chloride 96 96-108 mmol/L Carbon Dioxide 28 22-29 mmol/L Anion Gap 14 12-20 Blood Urea Nitrogen 25 9-16 mg/dL Creatinine 1.18 0.5-1.4 mg/dL Creatinine Clr Calc Pharmacy 56.8 eGFR (calculated from the MDRD study equation) and eCrCl (calculated from the Cockcroft-Gault equation) are based on different parameters and may not yield comparable results. If eCrCl result is absurd, please check patient's height/weight. Estimated Glomerular Filt Rate 60 Chronic Kidney Disease: Estimated GFR < 60 mL/min/1.73m2 Severe Kidney Disease: Estimated GFR < 15 mL/min/1.73m2 Glucose Random 158 60-115 mg/dL Calcium 9.5 8.4-10.2 mg/dL Complete Blood Count Auto Di ff Reviewed date:12/14/2024 04:01:27 PM Interpretation: Performing Lab:[facility], [address] [place] [phone] Notes/Report: White Blood Count 8.0 4.8-10.8 X10*3/uL Red Blood Count 4.36 4.60-5.80 X10*6/uL Hemoglobin 13.2 14.0-18.0 g/dl Hematocrit 38.2 42.0-52.0 % Mean Corpuscular Volume 87.6 80.0-98.0 fL Mean Corpuscular Hemoglobin 30.3 27.0-33.0 pg Mean Corpuscular HGB Conc 34.6 31.0-36.0 g/dl Red Cell Distribution Width 13.3 11.0-16.0 % Platelet Count 132 160-400 X10*3/uL Mean Platelet Volume 10.7 9.4-12.4 fL Neutrophils Percent Auto 54.9 45-73 % Imm Gran Pct Auto 0.4 0.0-0.4 % Lymphocytes Percent Auto 33.9 20-40 % Monocytes Percent Auto 9.3 2-11 % Eosinophils Percent Auto 1.0 0-4 % Basophils Percent Auto 0.5 0-2 % NRBC Pct Auto 0.0 0.0-0.2 /100WBC Neutrophils Absolute Auto 4.4 2.0-8.3 x10*3/uL Imm Gran Abs Auto 0.03 0.00-0.03 X10*3/uL Lymphocytes Absolute Auto 2.7 1.2-4.9 X10*3/uL Monocytes Absolute Auto 0.7 0.1-1.2 X10*3/uL Eosinophils Absolute Auto 0.1 0.0-0.4 X10*3/uL Basophils Absolute Auto 0.0 0.0-0.2 X10*3/uL NRBC Abs Auto 0.000 0.0-0.012 X10*3/uL Prothrombin Time INR Reviewed date:12/14/2024 10:28:08 AM Interpretation: Performing Lab:[facility], [address] [place] [phone] Notes/Report: Prothrombin Time 43.8 10.9-12.4 SEC INTERNATIONAL NORM RATIO 3.7 0.9-1.1 INTERNATIONAL NORMALIZED RATIO (INR) REFERENCE RANGES [...] mechanical prosthetic heart valves: 2.5 - 3.5 Comprehensive Met. Panel Reviewed date:12/14/2024 10:28:49 AM Interpretation: Performing Lab:[facility], [address] [place] [phone] Notes/Report: Sodium 135 135-145 mmol/L Potassium 3.8 3.3-5.1 mmol/L Chloride 99 96-108 mmol/L Carbon Dioxide 26 22-29 mmol/L Anion Gap 14 12-20 Blood Urea Nitrogen 26 9-16 mg/dL Creatinine 1.28 0.5-1.4 mg/dL Creatinine Clr Calc Pharmacy 52.0 eGFR (calculated from the MDRD study equation) and eCrCl (calculated from the Cockcroft-Gault equation) are based on different parameters and may not yield comparable results. If eCrCl result is absurd, please check patient's height/weight. Estimated Glomerular Filt Rate 54 Chronic Kidney Disease: Estimated GFR < 60 mL/min/1.73m2 Severe Kidney Disease: Estimated GFR < 15 mL/min/1.73m2 Glucose Random 114 60-115 mg/dL Calcium 8.8 8.4-10.2 mg/dL Bilirubin Total 1.2 0.0-1.0 mg/dL Aspartate Amino Transferase 24 5-37 U/L Alanine Aminotransferase 17 0-40 U/L Total Protein 5.9 6.5-8.0 g/dL Albumin Level 3.6 3.5-5.0 g/dL Alkaline Phosphatase 65 39-117 U/L Magnesium Reviewed date:12/15/2024 09:56:55 AM Interpretation: Performing Lab:[address] [phone] Notes/Report: Magnesium 1.7 1.6-2.6 mg/dL Troponin-I High Sensitivity Reviewed date:12/14/2024 10:27:17 AM Interpretation: Performing Lab:[address] [phone] Notes/Report: Troponin-I High Sensitivity 43.6 <3.5-35.0 ng/L The Rahman high sensitivity Troponin-I results should be used in conjunction with other diagnostic information such as ECG, clinical observations and information, and patient symptoms to aid in the diagnosis of CO. B Type Natriuretic Peptide Reviewed date:12/15/2024 09:57:05 AM Interpretation: Performing Lab:[facility], [address] [place] [phone] Notes/Report: B Type Natriuretic Peptide 1238 <100 pg/mL UA ClnCatch+Micro w/rflx Cul t Reviewed date:12/14/2024 03:55:16 PM Interpretation: Performing Lab:[address] [address] Notes/Report: [id number] Urine, Clean Catch Color Urine Yellow Appearance Urine Clear PH 5.5 5.0-9.0 Glucose Urine UA >=1000 Negative mg/dL Urine Blood Negative Negative Specific [place] - Urine 1.020 1.005-1.025 Urine Protein Negative Neg-Trace mg/dL Urine Ketones Negative Negative mg/dL Nitrite Urine Negative Negative Leukocyte Esterase Urine Negative Negative RBC Urine 0-2 0-2 /HPF WBC Urine 0-5 0-5 /HPF Squamous Epithelial Cell Urine 0-2 0-2 /HPF Bacteria Urine None Seen None Seen Hyaline Casts Urine 0-2 0-2 /LPF XR chest 1V Reviewed date:12/14/2024 10:25:20 AM Interpretation: Performing Lab: Notes/Report: [address] [address] XRay Report Signed Patient: Steven Tiwari MR#: [id number] : 1945 Acct:[id number] Age/Sex: 79 / M ADM Date: 12/13/24 Loc: .ED Attending Dr: Ordering Physician: Madi Benedict MD Date of Service: 12/14/24 Procedure(s): XR chest 1V Accession Number(s): [id number] cc: Yonathan Womack MD; Madi Benedict MD CLINICAL HISTORY: cough 1 view chest x-ray. Comparison: CR - XR CHEST 1V - 12/09/24 10:11 EDT Findings: No consolidation, pneumothorax, or effusion. Heart size is mildly enlarged. Impression: 1. Mild cardiomegaly. Otherwise, no acute cardiopulmonary process. No focal pulmonary consolidation. This document has been electronically signed by: Ramin Montoya MD on 12/14/2024 04:36:17 Dictated By: Ramin Montoya MD Signed By: <Electronically signed by Ramin Montoya MD in [place]> 12/14/24436 DD/ 5 TD/TT: 12/14/24435 [employer] Maker: [place] [id number] XRay Report Signed Patient: Steven Tiwari MR#: [id number] : 1945 Acct:[id number] Age/Sex: 79 / M ADM Date: 12/13/24 Loc: .ED Attending Dr: Ordering Physician: Madi Benedict MD Date of Service: 12/14/24 Procedure(s): XR robin st 1V Accession Number(s): [id number] cc: Yonathan Womack MD; Madi Benedcit MD CLINICAL HISTORY: cough 1 view chest x-ray. Comparison: CR - XR CHEST 1V - 12/09/24 10:11 EDT Findings: No consolidation, pneumothorax, or effusion. Heart size is mildly enlarged. Impression: 1. Mild cardiomegaly . Otherwise, no acute cardiopulmonary process. No focal pulmonary consolidation. This document has be en electronically signed by: Ramin Montoya MD on 12/14/2024 04:36:17 Dictated By: Ramin Montoya MD Signed By: <Electronically signed by Ramin Montoya MD in [place]> 12/14/24436 DD/ 5 TD/TT: 12/14/24435 [employer] Maker: Complete Blood Count Auto Di ff Reviewed date:12/15/2024 10:00:16 AM Interpretation: Performing Lab:[facility], [address] [place] [phone] Notes/Report: White Blood Count 8.9 4.8-10.8 X10*3/uL Red Blood Count 4.55 4.60-5.80 X10*6/uL Hemoglobin 13.8 14.0-18.0 g/dl Hematocrit 39.7 42.0-52.0 % Mean Corpuscular Volume 87.3 80.0-98.0 fL Mean Corpuscular Hemoglobin 30.3 27.0-33.0 pg Mean Corpuscular HGB Conc 34.8 31.0-36.0 g/dl Red Cell Distribution Width 13.6 11.0-16.0 % Platelet Count 163 160-400 X10*3/uL Mean Platelet Volume 11.1 9.4-12.4 fL Neutrophils Percent Auto 67.6 45-73 % Imm Gran Pct Auto 0.4 0.0-0.4 % Lymphocytes Percent Auto 22.9 20-40 % Monocytes Percent Auto 7.9 2-11 % Eosinophils Percent Auto 0.8 0-4 % Basophils Percent Auto 0.4 0-2 % NRBC Pct Auto 0.0 0.0-0.2 /100WBC Neutrophils Absolute Auto 6.0 2.0-8.3 x10*3/uL Imm Gran Abs Auto 0.04 0.00-0.03 X10*3/uL Lymphocytes Absolute Auto 2.0 1.2-4.9 X10*3/uL Monocytes Absolute Auto 0.7 0.1-1.2 X10*3/uL Eosinophils Absolute Auto 0.1 0.0-0.4 X10*3/uL Basophils Absolute Auto 0.0 0.0-0.2 X10*3/uL NRBC Abs Auto 0.000 0.0-0.012 X10*3/uL Comprehensive Met. Panel Reviewed date:12/15/2024 09:56:46 AM Interpretation: Performing Lab:[facility], [address] [place] [phone] Notes/Report: Sodium 134 135-145 mmol/L Potassium 3.5 3.3-5.1 mmol/L Chloride 100 96-108 mmol/L Carbon Dioxide 21 22-29 mmol/L Anion Gap 17 12-20 Blood Urea Nitrogen 27 9-16 mg/dL Creatinine 1.46 0.5-1.4 mg/dL Creatinine Clr Calc Pharmacy 45.7 eGFR (calculated from the MDRD study equation) and eCrCl (calculated from the Cockcroft-Gault equation) are based on different parameters and may not yield comparable results. If eCrCl result is absurd, please check patient's height/weight. Estimated Glomerular Filt Rate 47 Chronic Kidney Disease: Estimated GFR < 60 mL/min/1.73m2 Severe Kidney Disease: Estimated GFR < 15 mL/min/1.73m2 Glucose Random 149 60-115 mg/dL Calcium 9.2 8.4-10.2 mg/dL Bilirubin Total 1.1 0.0-1.0 mg/dL Aspartate Amino Transferase 29 5-37 U/L Alanine Aminotransferase 25 0-40 U/L Total Protein 6.4 6.5-8.0 g/dL Albumin Level 3.9 3.5-5.0 g/dL Alkaline Phosphatase 89 39-117 U/L Troponin-I High Sensitivity Reviewed date:12/15/2024 09:56:22 AM Interpretation: Performing Lab:[facility], [address] [place] [phone] Notes/Report: Troponin-I High Sensitivity 55.1 <3.5-35.0 ng/L The Rahman high sensitivity Troponin-I results should be used in conjunction with other diagnostic information such as ECG, clinical observations and information, and patient symptoms to aid in the diagnosis of CO. XR chest 1V Reviewed date:12/15/2024 09:52:59 AM Interpretation: Performing Lab: Notes/Report: [address] [place] [address] XRay Report Signed Patient: Steven Tiwari MR#: [id number] : 1945 Acct:[id number] Age/Sex: 79 / M ADM Date: 12/14/24 Loc: .ED Attending Dr: Ordering Physician: Dillon Galvan MD Date of Service: 12/14/24 Procedure(s): XR chest 1V Accession Number(s): [id number] cc: Yonathan Womack MD; Dillon Galvan MD CLINICAL HISTORY: shortness of breath 1 view chest x-ray. Comparison: CR - XR CHEST 1V - 12/14/24 03:52 EDT Findings: Evaluation of the bilateral lung bases is mildly limited by overlying structures external to the patient. No focal pulmonary consolidation, pneumothorax, or significant pleural effusion identified. Heart size is mildly enlarged. Impression: 1. Mild cardiomegaly. Otherwise, no radiographic evidence for an acute cardiopulmonary process. No focal pulmonary consolidation. This document has been electronically signed by: Ramin Montoya MD on 12/14/2024 22:13:33 Dictated By: Ramin Montoya MD Signed By: <Electronically signed by Ramin Montoya MD in [place]> 12/14/242213 DD/ 12 TD/TT: 12/14/242212 [employer] Maker: [place] [id number] XRay Report Signed Patient: Steven Tiwari MR#: [id number] : 1945 Acct:[id number] Age/Sex: 79 / M ADM Date: 12/14/24 Loc: .ED Attending Dr: Ordering Physician: Dillon Galvan MD Date of Service: 12/14/24 Procedure(s): XR robin st 1V Accession Number(s): [id number] cc: Yonathan Womack MD; Dillon Galvan MD CLINICAL HISTORY: shortness of breath 1 view chest x-ray. Comparison: CR - XR CHEST 1V - 12/14/24 03:52 EDT Findings: Evaluation of the bilateral lung bases is mildly limited by overlying structures external to the patient. No focal pulmonary consolidation, pneumothorax, or significant pleural effusion identified. Heart size is mildly enlarged. Impression: 1. Mild cardiomegaly . Otherwise, no radiographic evidence for an acute cardiopulmonary proc ess. No focal pulmonary consolidation. This document has be en electronically signed by: Ramin Montoya MD on 12/14/2024 22:13:33 Dictated By: Ramin Montoya MD Signed By: <Electronically signed by Ramin Montoya MD in [place]> 12/14/242213 DD/ 12 TD/TT: 12/14/242212 [employer] Maker: Prothrombin Time INR Reviewed date:12/15/2024 09:52:31 AM Interpretation: Performing Lab:[facility], [address] [place] [phone] Notes/Report: Prothrombin Time 45.3 10.9-12.4 SEC INTERNATIONAL NORM RATIO 3.9 0.9-1.1 INTERNATIONAL NORMALIZED RATIO (INR) REFERENCE RANGES [...] mechanical prosthetic heart valves: 2.5 - 3.5 B Type Natriuretic Peptide Reviewed date:12/15/2024 09:52:22 AM Interpretation: Performing Lab:[facility], [address] [place] [phone] Notes/Report: B Type Natriuretic Peptide 998 <100 pg/mL Troponin-I High Sensitivity Reviewed date:12/15/2024 09:52:10 AM Interpretation: Performing Lab:[address] [address] Notes/Report: Troponin-I High Sensitivity 83.6 <3.5-35.0 ng/L The Rahman high sensitivity Troponin-I results should be used in conjunction with other diagnostic information such as ECG, clinical observations and information, and patient symptoms to aid in the diagnosis of CO. Prothrombin Time INR Reviewed date:12/16/2024 01:57:17 PM Interpretation: Performing Lab:[facility], [address] [place] [phone] Notes/Report: Prothrombin Time 35.3 10.9-12.4 SEC INTERNATIONAL NORM RATIO 3.0 0.9-1.1 INTERNATIONAL NORMALIZED RATIO (INR) REFERENCE RANGES [...] mechanical prosthetic heart valves: 2.5 - 3.5 Glucose, Whole Blood Reviewed date:12/16/2024 01:57:55 PM Interpretation: Performing Lab:[address] [address] Notes/Report: Glucose, Whole Blood 118 60-115 mg/dL METER # : [id number] Complete Blood Count no Diff Reviewed date:12/16/2024 01:58:43 PM Interpretation: Performing Lab:[facility], [address] [place] [phone] Notes/Report: White Blood Count 9.6 4.8-10.8 X10*3/uL Red Blood Count 4.97 4.60-5.80 X10*6/uL Hemoglobin 15.0 14.0-18.0 g/dl Hematocrit 43.6 42.0-52.0 % Mean Corpuscular Volume 87.7 80.0-98.0 fL Mean Corpuscular Hemoglobin 30.2 27.0-33.0 pg Mean Corpuscular HGB Conc 34.4 31.0-36.0 g/dl Red Cell Distribution Width 13.6 11.0-16.0 % Platelet Count 172 160-400 X10*3/uL Mean Platelet Volume 11.5 9.4-12.4 fL NRBC Pct Auto 0.0 0.0-0.2 /100WBC NRBC Abs Auto 0.000 0.0-0.012 X10*3/uL Prothrombin Time INR Reviewed date:12/16/2024 01:57:33 PM Interpretation: Performing Lab:[address] [address] Notes/Report: Prothrombin Time 31.0 10.9-12.4 SEC INTERNATIONAL NORM RATIO 2.7 0.9-1.1 INTERNATIONAL NORMALIZED RATIO (INR) REFERENCE RANGES [...] mechanical prosthetic heart valves: 2.5 - 3.5 Basic Metabolic Panel Reviewed date:12/16/2024 01:56:18 PM Interpretation: Performing Lab:[facility], [address] [place] [phone] Notes/Report: Sodium 135 135-145 mmol/L Potassium 3.3 3.3-5.1 mmol/L Chloride 99 96-108 mmol/L Carbon Dioxide 25 22-29 mmol/L Anion Gap 14 12-20 Blood Urea Nitrogen 20 9-16 mg/dL Creatinine 1.12 0.5-1.4 mg/dL Creatinine Clr Calc Pharmacy 64.7 eGFR (calculated from the MDRD study equation) and eCrCl (calculated from the Cockcroft-Gault equation) are based on different parameters and may not yield comparable results. If eCrCl result is absurd, please check patient's height/weight. Estimated Glomerular Filt Rate > 60 Chronic Kidney Disease: Estimated GFR < 60 mL/min/1.73m2 Severe Kidney Disease: Estimated GFR < 15 mL/min/1.73m2 Glucose Random 119 60-115 mg/dL Calcium 9.3 8.4-10.2 mg/dL Prothrombin Time INR Reviewed date:12/16/2024 01:57:26 PM Interpretation: Performing Lab:[facility], [address] [place] [phone] Notes/Report: Prothrombin Time 31.1 10.9-12.4 SEC INTERNATIONAL NORM RATIO 2.7 0.9-1.1 INTERNATIONAL NORMALIZED RATIO (INR) REFERENCE RANGES [...] mechanical prosthetic heart valves: 2.5 - 3.5 Complete Blood Count Auto Di ff Reviewed date:12/18/2024 12:41:15 PM Interpretation: Performing Lab:[facility], [address] [place] [phone] Notes/Report: White Blood Count 7.9 4.8-10.8 X10*3/uL Red Blood Count 4.56 4.60-5.80 X10*6/uL Hemoglobin 13.9 14.0-18.0 g/dl Hematocrit 39.5 42.0-52.0 % Mean Corpuscular Volume 86.6 80.0-98.0 fL Mean Corpuscular Hemoglobin 30.5 27.0-33.0 pg Mean Corpuscular HGB Conc 35.2 31.0-36.0 g/dl Red Cell Distribution Width 13.6 11.0-16.0 % Platelet Count 164 160-400 X10*3/uL Mean Platelet Volume 10.7 9.4-12.4 fL Neutrophils Percent Auto 56.2 45-73 % Imm Gran Pct Auto 0.6 0.0-0.4 % Lymphocytes Percent Auto 32.6 20-40 % Monocytes Percent Auto 9.0 2-11 % Eosinophils Percent Auto 1.1 0-4 % Basophils Percent Auto 0.5 0-2 % NRBC Pct Auto 0.0 0.0-0.2 /100WBC Neutrophils Absolute Auto 4.4 2.0-8.3 x10*3/uL Imm Gran Abs Auto 0.05 0.00-0.03 X10*3/uL Lymphocytes Absolute Auto 2.6 1.2-4.9 X10*3/uL Monocytes Absolute Auto 0.7 0.1-1.2 X10*3/uL Eosinophils Absolute Auto 0.1 0.0-0.4 X10*3/uL Basophils Absolute Auto 0.0 0.0-0.2 X10*3/uL NRBC Abs Auto 0.000 0.0-0.012 X10*3/uL Comprehensive Met. Panel Reviewed date:12/18/2024 12:57:54 PM Interpretation: Performing Lab:[facility], [address] [place] [phone] Notes/Report: Sodium 137 135-145 mmol/L Potassium 3.4 3.3-5.1 mmol/L Slight Hemolysis.Interpret result with caution. Chloride 100 96-108 mmol/L Carbon Dioxide 24 22-29 mmol/L Anion Gap 16 12-20 Blood Urea Nitrogen 26 9-16 mg/dL Creatinine 1.39 0.5-1.4 mg/dL Creatinine Clr Calc Pharmacy 48.0 eGFR (calculated from the MDRD study equation) and eCrCl (calculated from the Cockcroft-Gault equation) are based on different parameters and may not yield comparable results. If eCrCl result is absurd, please check patient's height/weight. Estimated Glomerular Filt Rate 49 Chronic Kidney Disease: Estimated GFR < 60 mL/min/1.73m2 Severe Kidney Disease: Estimated GFR < 15 mL/min/1.73m2 Glucose Random 130 60-115 mg/dL Calcium 9.1 8.4-10.2 mg/dL Bilirubin Total 0.9 0.0-1.0 mg/dL Aspartate Amino Transferase 26 5-37 U/L Slight Hemolysis.Interpret result with caution. Alanine Aminotransferase 24 0-40 U/L Total Protein 6.4 6.5-8.0 g/dL Albumin Level 3.5 3.5-5.0 g/dL Alkaline Phosphatase 78 39-117 U/L Troponin-I High Sensitivity Reviewed date:12/18/2024 09:01:42 AM Interpretation: Performing Lab:[facility], [address] [place] [phone] Notes/Report: Troponin-I High Sensitivity 40.4 <3.5-35.0 ng/L The Rahman high sensitivity Troponin-I results should be used in conjunction with other diagnostic information such as ECG, clinical observations and information, and patient symptoms to aid in the diagnosis of CO. B Type Natriuretic Peptide Reviewed date:12/18/2024 09:02:28 AM Interpretation: Performing Lab:[facility], [address] [place] [phone] Notes/Report: B Type Natriuretic Peptide 811 <100 pg/mL Reason For Referral Reason pain in left knee Diagnosis 1 Pain in left knee (M 25.562) Referral Organization Yonathan Womack MD Referring Provider First Name Yonathan Referring Provider Last Name Shanta Referring Provider Speciality Internal M edicine Referred Provider Lazaro Weinberg Referred Provider Specialty Orthopedic S urgery General Notes Otilia Nova 11:11:36 AM EDT > patient is aware of appt , Chelle Skelton 07/17/2024 12:18:37 PM EST > NOTES RECD Referral Priority Routine Referral Appointment Date 03/22/2024 Reason right upper quadrant pain Diagnosis 1 Right upper quadrant pain (R10.11) Referral Organization Yonathan Womack MD Referring Provider First Name Yonathan Referring Provider Last Name Shanta Referring Provider Speciality Internal edicine Referred Provider Simone Mesa Referred Provider Specialty Surgery General Notes Otilia Nova 09:52:59 AM EST > info faxedAvtar Annette 06/25/2024 10:00:44 AM EST > mail info to patient Referral Priority Routine Referral Appointment Date 07/06/2024 Reason please deann archibald for physical therapy Diagnosis 1 Abnormal gait (R26.9 ) Diagnosis 2 Shoulder pain (M25.5 19) Diagnosis 3 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) Referral Organization Yonathan Womack MD Referring Provider First Name Yonathan Referring Provider Last Name Shanta Referring Provider Speciality Internal edicine Referred Provider JEROME URIBE Referred Provider Specialty Unknown General Notes Otilia Nova 0 11/01/2024 11:51:33 AM >referral faxed to [facility] Gilliland Annette 11/01/2024 03:11:27 PM >Jena CANO isn't under contact with [facility] info faxed to [facility] Gonzalse Annette 11/02/2024 11:22:49 AM > was told to refax [facility] Annette 11/05/2024 01:12:28 PM > was told again to refaxed referralNafisa Patti A 11/06/2024 09:12:42 AM >MR TIWARI ACCEPTED BY [facility] FOR PT BEGINNING 11/07 SHERINE AT [phone] #2 IF ANY QUESTIONS Referral Priority Routine Referral Appointment Date 11/07/2024 Reason ACUTE CHRONIC SYSTOL IC CHF Diagnosis 1 Acute on chronic sys tolic (congestive) heart failure (I50.23) Referral Organization Yonathan Womack MD Referring Provider First Name Yonathan Referring Provider Last Name Shanta Referring Provider Speciality Internal M edicine Referred Provider Azeem Clayton Referred Provider Specialty Cardiovascul ar Disease General Notes Nafisa Chelle A 12/20/2024 09:57:31 AM >REFERRAL FAXED TO [facility] FOR [facility]IENT APPT Referral Priority Routine Medications Medication SIG (Take, Route, Frequency, Duration) Notes Start Date End Date Status Co Q 10 100 MG 1 capsule with a indy l Orally Once a day for 30 day(s) Active Metoprolol Succinate 50 MG 1 capsule Ora lly Once a day Active Simvastatin 40 MG TAKE 1/2 TABLET BY MOUTH EVERY EVENING Active Tylenol Extra Strength 500 MG 1/2 tablet Orally every 6 hrs Not-Taking Triamcinolone Acetonide 0.1 % 1 application Externally Once a day for 30 days 07/23/2021 Active Entresto 24-26 MG 1 tablet Orally Twic e a day Active FreeStyle Lancets - USE TO CHECK BLOOD SUGAR ONCE A DAY for 90 Active Triamcinolone Acetonide 0.5 % 1 application to affected area Externally Twice a day for 30 days 10/03/2014 Not-Taking Warfarin Sodium 2.5 MG TAKE 3 TABLETS BY MOUTH 6 DAYS A WEEK AND 2 TABLETS BY MOUTH 1 DAY A WEEK Active FreeStyle Lite Test - TEST BLOOD SUGAR O NCE EVERY DAY for 50 Active Imodium A-D 2 MG 1 tablet as needed Orally Four times a day Not-Taking Furosemide 20 MG 2 tabs twice a day Orally twice a day Active LORazepam 0.5 MG TAKE 1 TABLET BY CASSIUS TH EVERY DAY NEEDED Orally Once a day for 30 days 09/04/2024 Active Nitrostat 0.4 MG as directed Sublingu al every 5 mins times 3 for 30 days 11/30/2016 Not-Taking Omeprazole 20 MG TAKE 1 CAPSULE BY MOUTH EVERY DAY 30 MINUTES BEFORE BREAKFAST Active Spironolactone 25 MG 1 tablet Orally Not-Taking Ondansetron 4 MG 1 tablet on the tong ue and allow to dissolve Orally twice a day for 5 days 12/17/2024 Active Immunizations Vaccine Route Administration Date Status [...] W/U Status Risk Notes Problem Panic attack (654128790) Panic attack (300.01) Active confirmed Problem Cardiomyopathy (47585105) Cardiomyopathy (425.4) Active confirmed Problem 738282326 Unspecified asth ma, uncomplicated (J45.909) Active confirmed Problem 16685271 Restless leg syn drome (G25.81) Active confirmed Problem Carotid artery disease (158207053) Carotid artery disease (I77.9) Active confirmed Problem 73087219 Vitamin D defici ency (E55.9) Active confirmed Problem 67177820 Anxiety (F41.9) Active confirmed Problem Hypomagnesemia (786582805) Hypomagnesemia (E83.42) Active confirmed Problem 25571196 Other chronic pa in (G89.29) Active confirmed Problem Acute on chronic systolic heart failure (438571806) Acute on chronic systolic (congestive) heart failure (I50.23) Active confirmed Problem 0506206 Diverticulitis o f large intestine without perforation or abscess with bleeding (K57.33) Active confirmed Problem 402850278 Prostate cancer (C61) Active confirme d Problem 4456031 Prediabetes (R73.09) Active confirmed Problem 916370652 Low HDL (under 4 0) (E78.6) Active confirmed Problem 37806441 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) Active confirmed Problem 276614664 Cervical disc di sease (M50.90) Active confirmed Problem 24605317 Intrinsic eczema (L20.84) Active confirmed Problem 587780685 Gall stones (K80.20) Active confirmed Problem 530805862 History of prost ate cancer (Z85.46) Active confirmed Problem 024043607 Kidney mass (N28.89) Active confirmed Problem 77778947 Dysthymia (F34.1) Active confirmed Problem 268549347 Anticoagulant long-term use (Z79.01) Active confirmed Problem 373550086 Nonalcoholic hepatosteatosis (K76.0) Active confirmed Problem 169994109 History of myoca rdial infarction (I25.2) Active confirmed Problem 79905176 Reflux gastritis (K29.60) Active confirmed Problem 15203207 Sleep apnea, unspecified type (G47.30) Active confirmed Problem 785530485 Acute on chronic systolic congestive heart failure (I50.23) Active confirmed Problem 076027155 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) Active confirmed Problem 039771421 Benign prostatic hyperplasia with lower urinary tract symptoms (N40.1) Active confirmed Problem 915423595 Pure hypercholesterolemia (E78.00) Active confirmed Problem Abnormal gait (58920034) Abnormal gait (R26.9) Active confirmed Problem 8586965 Low calcium leve ls (E83.51) Active confirmed Problem 208074808 Abnormal CT scan , kidney (R93.429) Active confirmed Problem 707679821 On bridging jing tment with lovenox (Z79.01) Active confirmed Problem 889490434 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) Active confirmed Problem 066776326 Atrial fibrillat ion, chronic (I48.20) Active confirmed Problem 182307268 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 Vital Signs Blood pressure diastolic 58 mm Hg 12/20/2024 kayli ght is down 4 pounds since 10-25-24 Height 69 in 12/20/2024 weight is down 4 pounds since 10-25-24 Blood pressure systolic 124 mm Hg 12/20/2024 weig ht is down 4 pounds since 10-25-24 Weight 205 lbs 12/20/2024 weight is down 4 pounds since 10-25-24 BMI 30.27 kg/m2 12/20/2024 weight is down 4 pounds since 10-25-24 Encounters Encounter Location Date Provider Diagnosis Yonathan Womack MD [address] [place] [address] [id number] 09/17/2024 Yonathan Womack Blood tests for rout ine general physical examination Z00.00 ; Prediabetes R73.09 ; Pure hypercholesterolemia E78.00 ; Prostate cancer C61 ; Vitamin D deficiency E55.9 and Acute on chronic systolic congestive heart failure I50.23 Yonathan Womack MD [address] [place] [address] [id number] 12/20/2024 Yonathan Womack Acute on chronic sys tolic congestive heart failure I50.23 ; Atrial fibrillation, chronic I48.20 and Anticoagulant long-term use Z79.01 Yonathan Womack MD [address] [place] [address] [id number] 01/19/2024 Yonathan Womack Synovial cyst of lef t popliteal space M71.22 and Acute on chronic systolic congestive heart failure I50.23 Yonathan Womack MD [address] [place] [address] [id number] 02/21/2024 Yonathan Munguiaardipatrick Pain in left knee M2 5.562 and Other chronic pain G89.29 Yonathan Womack MD [address] [place] [address] [id number] 05/21/2024 Yonathan Womack Acute on chronic sys tolic congestive heart failure I50.23 Yonathan Womack MD [address] [place] [address] [id number] 06/25/2024 Yonathan Womack Right upper quadrant pain R10.11 Yonathan Womack MD [address] [place] [address] [id number] 07/26/2024 Yonathan Womack Acute on chronic sys tolic congestive heart failure I50.23 Yonathan Womack MD [address] [place] [address] [id number] 09/21/2024 Yonathan Womack Elevated BUN R79.9 ; Annual physical exam Z00.00 ; Nonalcoholic hepatosteatosis K76.0 ; Prediabetes R73.09 ; Atrial fibrillation, chronic I48.20 ; Anticoagulant long-term use Z79.01 ; Acute on chronic systolic congestive heart failure I50.23 ; Reflux gastritis K29.60 and Depression screening Z13.31 Yonathan Womack MD [address] [place] [address] [id number] 10/25/2024 Yonathan Womack Shoulder pain M25.51 9 and Abnormal gait R26.9 Yonathan Womack MD [address] [place] [address] [id number] 11/05/2024 Yonathan Womack MD [address] [place] [address] [id number] 01/24/2024 Yonathan Womack MD [address] [place] [address] [id number] 03/26/2024 Yonathan Womack MD [address] [place] [address] [id number] 04/10/2024 Yonathan Womack MD [address] [place] [address] [id number] 04/26/2024 Yonathan Womack MD [address] [place] [address] [id number] 05/03/2024 Yonathan Womack MD [address] [place] [address] [id number] 07/24/2024 Yonathan Womack MD [address] [place] [address] [id number] 09/04/2024 Yonathan Womack MD [address] [place] [address] [id number] 10/15/2024 Yonathan Womack MD [address] [place] [address] [id number] 10/16/2024 Yonathan Womack MD [address] [place] [address] [id number] 12/13/2024 Yonathan Womack MD [address] [place], [place] [id number] 12/17/2024 Yonathan Womack Assessments Encounter Date Diagnosis (ICD Code) Assessment Notes Treatment Notes Treatment Clinical Notes Section Notes 09/17/2024 Blood tests for routine general physical examination (ICD-10 - Z00.00) 12/20/2024 Acute on chronic systolic congestive heart failure (ICD-10 - I50.23) send referral to dr clayton 01/19/2024 Synovial cyst of lef t popliteal space (ICD-10 - M71.22) possibly ruptured . will observe 01/19/2024 Acute on chronic systolic congestive heart failure (ICD-10 - I50.23) need notes from dr lisa from last week/ request made by phone to dr [facility] med records 02/21/2024 Pain in left knee (ICD-10 - M25.562) needs wheelchair. is getting through [facility]. also needs medline 300 which is a pad because he doesn't have control of urine/ make referral to [facility] 02/21/2024 Other chronic [...] and he is going to go to [facility] to see what need to be done [...] physical therapy 09/17/2024 Prediabetes (ICD-10 - R73.09) 12/20/2024 Atrial fibrillation, chronic (ICD-10 - I48.20) seems to be in sinus today 09/21/2024 Nonalcoholic hepatosteatosis (ICD-10 - K76.0) good lft's, will contonue to monitor 09/17/2024 Pure hypercholesterolemia (ICD-10 - E78.00) 12/20/2024 Anticoagulant long-term use (ICD-10 - Z79.01) followed by coumadin clinic 09/21/2024 Prediabetes (ICD-10 - R73.09) good a1c, [...] Test Test Name Order Date Electrocardiogram (EKG) 06/29/2018 Electrocardiogram (EKG) 04/15/2016 Electrocardiogram (EKG) 06/25/2024 Electrocardiogram (EKG) 05/26/2017 MRI CERVICAL SPINE NO CONTRAST 2 NUC WHOLE BODY SCAN BONE 09/14/2019 US ABD 01/23/2021 US ABD 09/20/2023 CT chest wo con 04/22/2022 NM bone scan whole body 12/30/2022 US abdomen complete 03/12/2021 US abdomen complete 02/11/2022 Future Test Test Name Order Date US RENAL BILATERAL 10/20/2024 Next Appt Details Provider Name:Yonathan mendoza, 01/10/2025 10:15:00 AM, [address] [place] [address], [address], [phone], Provider Name:Yonathan mendoza, 01/10/2025 10:15:00 AM, [address] [place] [address], [address], [phone], Provider Name:Yonathan Pan ier, 03/21/2025 07:00:00 AM, [address] [place] [address], [address], [phone], Provider Name:Yonathan Carmela Maxim carmichaelr, 09/17/2025 07:45:00 AM, [address] [place] [address], [address], [phone], Provider Name:Yonathan carmichaelr, 09/24/2025 01:00:00 PM, [address] [place] [address], [address], [phone], Insurance Providers Payer Name Payer Address Payer Phone Subscriber Number Group Number Insured Name Patient Relationship to Insured Coverage Start Date Coverage End Date [facility] MEDICARE ADVANTAGE PLAN [facility] [address] [place] [phone] [id number] STEVEN TIWARI Self - patient is the insured [facility] [address] [place] [address] [phone] [id number] STEVEN TIWARI Self - patient is the insured Medical (General) History Medical History History ICD Code cerebrovascular accident 2006 refuses a stress test due to adverse yenny nt in the past. 05/30/2013 - colonoscopy due in 3 years. refuses to have another 2016
--- OUTSIDE RECORDS SUMMARY | 2024-12-24 09:04 | XMS_ITS | Encounter Summary ---
Author Organization [facility] Address [address] [place] [address] Care Team Providers Care Film Developer Name Role Phone Yonathan Womack MD Primary Care Provider [phone] Reason for Visit * Reason Onset Date Comments furosemide dosage ? 12/18/2024 [facility] Encounter Details Date Type Department Care Team (Late st Contact Info) Description 12/18/2024 Telephone [facility] [address] [place] [address] Ramin Parekh MD [address] [place] [address] [address] [place] [address] furosemide dosage ? ([facility]) Social History Tobacco Use Types Packs/Day Years [...] Progress Notes * Alycia Westbrook RN - 12/18/2024 2:19 PM EDT I spoke to Russell and informed him of the below message. He voiced understanding. * Michaela Anguiano NP - 12/18/2024 2:17 PM EDT It appears that he has been taking 40 mg twice a day and no changes were made during his recent emergency room trip. Labs are stable. I do not see any reason to change his furosemide dosing. * Alycia Westbrook RN - 12/18/2024 10:45 AM EDT Please obtain records from [facility] visit last night. Thank you. * Indira Santa - 12/18/2024 10:41 AM EDT Russell called , he is back home now. He did go to [facility] . Please read previous notes . He is asking abut the dosage of the Furosemide . He will also need a refill on the furosemide . * Ramin Parekh MD - 12/18/2024 8:26 AM EDT The patient called the answering service last night complaining of symptoms of shortness of breath and tongue swelling. Given his symptoms, the patient was instructed to go to the emergency room for further evaluation. The patient will ask his brother to take him to the emergency room. I told the patient that if his brother is not available to take him to the emergency room, that he should call 911. The patient expressed understanding about this instruction. documented in this encounter Plan of Treatment Upcoming Encounters Date Type Department Care Team (Late st Contact Info) Description 12/31/2024 11:30 AM EDT Office Visit [facility] Cardiology [facility] [address] [place] [address] Michaela Anguiano NP [address] [place] [address] [address] [place] [address] 01/24/2025 9:10 AM EDT Office Visit [facility] - [facility] [address] [place] [address] Michaela Anguiano NP [address] [place] [address] [address] [place] [address] documented as of this encounter Visit Diagnoses Not on filedocumented in this encounter Care Teams Film Developer Relationship Specialty Start Date End Date Yonathan Womack MD [address] [place] [address] [address] [place] [address] PCP - General 12/26/12 documented as of this encounter
--- OUTSIDE RECORDS SUMMARY | 2024-12-24 09:05 | XMS_ITS | Encounter Summary ---
Author Organization [facility] Address [address] [place] [address] Care Team Providers Care Blow Pit Helper Name Role Phone Yonathan Womack MD Primary Care Provider [phone] Reason for Visit * Reason Onset Date Comments Other 12/13/2024 Encounter Details Date Type Department Care Team (Late st Contact Info) Description 12/13/2024 Telephone [facility] Cardiology [address] [place] [phone] Eddie Granados MD [address] [place] [address] [address] [place] [address] Other Social History Tobacco Use Types Packs/Day [...] AM EDT I have sent all the [facility] records that I received to Tabby to [...] pls try the pt later today?? Reviewed [facility] d/c summary Started on jardiance and amiodarone [...] stay on? I did request records from [facility] I called and spoke with the patient [...] Description 12/31/2024 11:30 AM EDT Office Visit [facility] [address] [facility] [place] [phone] Michaela Anguiano NP [address] [place] [address] [place] [id number] 01/24/2025 9:10 AM EDT Office Visit [facility] [place] [phone] Michaela Anguiano NP [address] [place] [address] [place] [id number] documented as of this encounter Visit Diagnoses [...] (one) time each day in the morning. 12/20/2024 amiodarone (PACERONE) 200 mg tablet Take 2 tablets (400 mg total) by mouth 2 (two) times a day. Patient is on loading dose and will taper down 12/20/2024 added in this encounter Care Teams Blow Pit Helper Relationship Specialty Start Date End Date Yonathan Womack MD [address] [place] [address] [place] [id number] PCP - General 12/26/12 documented as of this encounter
--- OUTSIDE RECORDS SUMMARY | 2024-12-24 09:05 | XMS_ITS ---
Author Organization Yonathan Womack MD Address [address] [place] [phone] Care Team Providers Care Vocational Placement Specialist Name Role Phone Yonathan Womack Primary Care Provider Medications Medication SIG (Take, Route, Fr equency, Duration) Notes Start Date End Date Status Ondansetron 4 MG 1 tablet on the tong ue and allow to dissolve Orally twice a day for 5 days 12/17/2024 Active Encounters Encounter Location Date Provider Diagnosis Yonathan Womack MD [address] [facility] [address] [place] [phone] 12/17/2024 Yonathan Womack Plan Of Treatment Medication Medication Name Sig Start Date Stop Date Notes Ondansetron 4 MG 1 tablet on the tong ue and allow to dissolve Orally twice a day for 5 days 12/17/2024 Next Appt Details Provider Name:Yonathan mendoza, 01/10/2025 10:15:00 AM, [address] [place] [address], [address] [facility], [place], [place], [phone], Provider Name:Yonathan mendoza, 01/10/2025 10:15:00 AM, [address], [address], [place], [phone], Provider Name:Yonathan Pan ier, 03/21/2025 07:00:00 AM, [address] [place] [address], [address], [place], [phone], Provider Name:Yonathan Pan ier, 09/17/2025 07:45:00 AM, [address] [place] [address] Drive, [address], [place], [phone], Provider Name:Yonathan Pan ier, 09/24/2025 01:00:00 PM, [address] [place] [address], [address] [facility], [place], [phone], Progress Notes * STEVEN NUNEZDOB: [birth year] (79 yo M)Acc No.[id number]:12/17/2024 Patient:?STEVEN NUNEZ :1945???Age:79 Y???Sex:Male Address:[address] [place] [address], [address] * Refills? Start Ondansetron Tablet Disintegrating, 4 MG, Orally, 10 Tablet, 1 tablet on the tongue and allow to dissolve, twice a day, 5 days * true * Date:? Generated for Douglas whitehead/Galina/eTransmitting on:?12/24/2024 09:04 AM EDT
--- OUTSIDE RECORDS SUMMARY | 2024-12-24 09:05 | XMS_ITS | Clinical Summary ---
Author Organization [address] [place] [address] [place] [id number] Phone Care Team Providers Care Technical Support Manager Name Role Phone Yonathan Womack MD Primary Care Provider [phone] Allergies Active Allergy Reactions Criticality Noted Date [...] Do not change dietary habits. Managed by [facility]. Active metoprolol succinate (TOPROL-XL) 50 mg 24 hr tabletIndication s:Paroxysmal atrial fibrillation (CMS/HCC V24, CMS/HCC V28) Take 1 tablet (50 mg total) by mouth 1 (one) time each day. Do not crush or chew. 90 each 3 11/30/19 25 026 Active furosemide (LASIX) 20 mg tablet Take 2 tablets (40 mg total) by mouth 2 (two) times a day. 180 tablet 3 12/15/19 25 Active empagliflozin (Jardiance) 10 mg tablet Take 1 tablet (10 mg total) by mouth 1 (one) time each day in the morning. 90 tablet 1 12/21/19 25 Active spironolactone (ALDACTONE) 25 mg tablet Take 0.5 tablets (12.5 mg total) by mouth 1 (one) time each day. 45 tablet 1 12/21/19 25 Active furosemide (LASIX) 20 mg tablet Take 2 tablets (40 mg total) by mouth 1 (one) time each day. 180 tablet 2 10/15/19 25 025 Discontinued(Re order) spironolactone (ALDACTONE) 25 mg tablet Take 0.5 tablets (12.5 mg total) by mouth 1 (one) time each day. 45 tablet 2 10/15/19 25 025 Discontinued(Re order) metoprolol succinate (TOPROL-XL) 50 mg 24 hr tabletIndication s:Paroxysmal atrial fibrillation (CMS/HCC V24, CMS/HCC V28) Take 1 tablet (50 mg total) by mouth 1 (one) time each day. Do not crush or chew. 90 each 3 11/20/19 25 025 Discontinued(Re order) amiodarone (PACERONE) 200 mg tablet Take 2 tablets (400 mg total) by mouth 2 (two) times a day. Patient is on loading dose and will taper down 025 Discontinued(Pr escriber Discontinued) empagliflozin (Jardiance) 10 mg tablet Take 1 tablet (10 mg total) by mouth 1 (one) time each day in the morning. 025 Discontinued(Re order) empagliflozin (Jardiance) 10 mg tablet Take 1 tablet (10 mg total) by mouth 1 (one) time each day in the morning. 90 tablet 1 12/21/19 25 025 Discontinued spironolactone (ALDACTONE) 25 mg tablet Take 0.5 tablets (12.5 mg total) by mouth 1 (one) time each day. 45 tablet 1 12/21/19 25 025 Discontinued Active Problems Problem Noted Date Diagnosed Date [...] he said he would go to the [facility] ER from our office. He has a ride and will not be driving PVD (peripheral vascular disease) ([facility] V24) 08/09/2023 Overview (06/07/2024): Last Assessment & Plan: History of peripheral vascular disease with known carotid stenosis. HFrEF (heart failure with re duced ejection fraction) ([facility] V24, [facility] V28) 01/06/2023 Assessment & Plan (12/21/2024 12:00 AM EDT): Patient has history of HFrEF-EF 25-30% on last echocardiogram. He has been in/out of the hospital 5 times in the last couple of weeks. He has been treated for CHF exacerbation and dehydration. He has adjusted his medications and stopped medications as outlined above. We had a long discussion regarding GDMT and appropriate medical treatment of HFrEF. I would like him to continue with Entresto and metoprolol as prescribed. I advised he restart Jardiance and spironolactone. Repeat labs in 1 week. He is hypervolemic on exam today. He will continue with furosemide 40mg BID for now, however we will likely cut back on this in the coming weeks. We will arrange close follow up. We discussed AICD and will discussed again at next visit. I've asked the patient to call if they develop worsening symptoms of heart failure such as increased shortness of breath, new or worsening cough, increased swelling in the legs or ankles, or weight gain of more than 2 pounds in one day or 4 pounds in one week. Mixed hyperlipidemia 01/06/2023 Assessment & Plan (12/21/2024 12:00 AM EDT): Continue with simvastatin as prescribed. Atrial fibrillation (CMS/HCC V24, CMS/HCC V28) 1 Overview (06/07/2024): Last Assessment & Plan: History of atrial fibrillation with stroke. High [id number] score remains chronically anticoagulated Assessment & Plan (12/21/2024 12:00 AM EDT): Patient has history of chronic atrial fibrillation which is adequately rate controlled on his present dose of metropolol. He continues on warfarin for anticoagulation denies any excessive bleeding or bruising. His [id number] score is 7 representing 11.2% risk for thromboembolism. He will require ongoing anticoagulation. Assessment & Plan (07/30/2024 8:19 AM EST): Orders: ECG 12 lead Coronary arteriosclerosis in [place] artery 05/26 Overview (06/07/2024): Last Assessment & [...] and following up with routine medical care. Assessment & Plan (12/21/2024 12:00 AM EDT): Possible inferior infarct in the past. No chest pain. Continue BB and statin. I have reviewed with the patient the importance of a heart healthy lifestyle which includes eating a low-fat low-salt diet, getting regular exercise, maintaining a healthy weight, not smoking, and following up with routine medical care. Heart valve disorder 05/26/2021 Overview (06/07/2024): Last Assessment & Plan: History of mildly regurgitation and mild mitral regurgitation. He denies any clinical symptoms of heart failure. Resolved Problems Problem Noted Date Diagnosed Date Resolved Date Dizzinesses 03/15/2023 12/20/2024 Chest pain 07/06/2022 12/20/2024 Overview (06/07/2024): Last Assessment & Plan: Patient's had 2 visits to the emergency room at [facility] for chest pain both times [...] since he has side effects from adenosine Encounters Date Type Department Care Team Description 12/23/2024 Telephone [facility] Cardiology [facility] [address] [facility] [facility] [address] [place] [address] Cristian Zamarripa NP 12/20/2024 11:30 AM EDT Office Visit [facility] Cardiology [facility] [address] [place] [phone] Michaela Anguiano NP HFrEF (heart failure with reduced ejection fraction) (CMS/HCC V24, CMS/HCC V28) (Primary Dx); Atrial fibrillation, unspecified type (CMS/HCC V24, CMS/HCC V28); Coronary arteriosclerosis in [place] artery; Mixed hyperlipidemia 12/20/2024 Telephone [facility] Cardiology [facility] [address] [place] [address] Michaela Anguiano NP Med Refill 12/18/2024 Telephone [facility] [address] [place] [address] Ramin Parekh MD furosemide dosage ? ([facility]) 12/13/2024 Telephone [facility] Cardiology [facility] [address] [place] [address] Sin Farfan MD 12/13/2024 [address]phone [facility] [address] [place] [address] Eddie Granados MD Other 12/05/2024 Telephone [facility] [address] [place] [address] Eddie Granados MD Weight Gain; irregular heart rate 11/29/2024 Telephone [facility] [address] [place] [address] Eddie Granados MD Med Refill (Metoprolol) 11/19/2024 Telephone [facility] [address] [place] [address] Simone Cantrell MD Medication 11/19/2024 Telephone [facility] [address] [place] [address] Eddie Granados MD high pulse (High pulse ) 10/11/2024 Telephone [facility] [address] [place] [address] Eddie Granados MD Med Refill (Furosemide, Sprinolactone ) from Last 3 Months Medical History Medical History Date Comments CVA (cerebral vascular accid ent) ([facility] V24, [facility] V28) DX:CVA (cerebral vascular ac cident) ([facility]) Chronic ischemic heart disease D X:Chronic ischemic heart disease GERD (gastroesophageal reflux disease) DX:GERD (gastroesophageal reflux disease) Anxiety DX:Anxiety Dyspnea DX:Dyspnea Dizzinesses DX:Dizzinesses Social History Tobacco Use Types Packs/Day Years Used Date Smoking Tobacco: Former Cigarettes Q uit: 08/22/1998 Smokeless Tobacco: Never Tobacco Cessation:Counseling Given: Not Answered Alcohol Use Standard Drinks/Week Comments Not Currently 0 (1 standard drink = 0.6 oz pur e alcohol) Sex and Gender Information Value Date Recorded Sex Assigned at Not on file Legal Sex Male 7:14 AM EST Gender Identity Not on file Sexual Orientation Not on file Obstetrics History Last Filed Vital Signs Vital Sign Reading Time Taken Comments Blood Pressure 118/66 12/20/2024 11:35 AM EDT Pulse 84 12/20/2024 11:35 AM EDT Temperature - - Respiratory Rate - - Oxygen Saturation 97% 12/20/2024 11:35 AM EDT Inhaled Oxygen Concentration - - Weight 89.8 kg (198 lb) 12/20/2024 11:35 AM EDT Height 172.7 cm (5' 8 ) 12/20/2024 11:35 AM EDT Body Mass Index 30.11 12/20/2024 11:35 AM EDT Plan of Treatment Upcoming Encounters Date Type Department Care Team (Late st Contact Info) Description 12/31/2024 11:30 AM EDT Office Visit [facility] Cardiology [facility] [address] [place] [address] [address] [place] [address] Michaela Anguiano NP [address] [place] [address] [address] [place] [address] 01/24/2025 9:10 AM EDT Office Visit [facility] [address] [place] [address] [place] [address] Michaela Anguiano NP [address] [place] [address] [address] [place] [address] Health Maintenance Due Date Last Done Comments [...] Date/Time Associated Diagnosis Comments ECG 12-LEAD Routine 12/21/2024 12:00 AM EDT Atrial fibrillation, unspecified type (CMS/HCC V24, CMS/HCC V28) from Last 3 Months Results * ECG 12 lead (12/21/2024 12:00 AM EDT) 12/20/2024 11:4 2 AM EDT us Michaela Anguiano NP ECG ORDERABLES Final Result GEMUSE from Last 3 Months Insurance [employer] MEDICAID - [place] Care Teams Technical Support Manager Relationship Specialty Start Date End Date Yonathan Womack MD [address] [place] [address] [address] [place] [address] PCP - General 12/26/12
--- OUTSIDE RECORDS SUMMARY | 2024-12-24 09:05 | XMS_ITS | Encounter Summary ---
Author Organization [facility] Address [address] [place] [address] Care Team Providers Care Recycling Center Operator Name Role Phone Yonathan Womack MD Primary Care Provider [phone] Reason for Visit * Reason Comments Follow-up Encounter Details Date Type Department Care Team (Latest Contact Info) Description 12/20/2024 11:30 AM EDT Office Visit [facility] [address] [place] [phone] Michaela Anguiano NP [address] [place] [address] Dr [address] [place] [address] HFrEF (heart failure with reduced ejection fraction) (CMS/HCC V24, CMS/HCC V28) (Primary Dx); Atrial fibrillation, unspecified type (CMS/HCC V24, CMS/HCC V28); 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 45 tablet 1 12/20/2024 empagliflozin (Jardiance) 10 mg tablet Take 1 tablet (10 mg total) by mouth 1 (one) time each day in the morning. 90 tablet 1 12/20/2024 spironolactone (ALDACTONE) 25 mg tablet Take 0.5 tablets (12.5 mg total) by mouth 1 (one) time each day. 45 tablet 1 12/20/2024 empagliflozin (Jardiance) 10 mg tablet Take 1 tablet (10 mg total) by mouth 1 (one) time each day in the morning. 90 tablet 1 12/20/2024 documented in this encounter Progress Notes * Michaela Anguiano NP - 12/20/2024 11:30 AM EDTAssociated Problem(s): Mixed hyperlipidemia Continue with simvastatin as prescribed. * Michaela Anguiano NP - 12/20/2024 11:30 AM EDTAssociated Problem(s): Atrial fibrillation (CMS/HCC V24, CMS/HCC V28) Patient has history of chronic atrial fibrillation which is adequately rate controlled on his present dose of metropolol. He continues on warfarin for anticoagulation denies any excessive bleeding orbruising. His EHO2HC0-MRHw score is 7 representing 11.2% risk for thromboembolism. He will require ongoing anticoagulation. * Michaela Anguiano NP - 12/20/2024 11:30 AM EDTAssociated Problem(s): HFrEF (heart failure with reduced ejection fraction) (CMS/HCC V24, CMS/HCC V28) Patient has history of HFrEF-EF 25-30% on last echocardiogram. He has been in/out of the hospital 5times in the last couple of weeks. He has been treated for CHF exacerbation and dehydration. He hasadjusted his medications and stopped medications as outlined above. We had a long discussion regarding GDMT and appropriate medical treatment of HFrEF. I would like him to continue with Entresto and metoprolol as prescribed. I advised he restart Jardiance and spironolactone. Repeat labs in 1 week. He is hypervolemic on exam today. He will continue with furosemide 40mg BID for now, however we willlikely cut back on this in the coming [...] day or 4 pounds in one week. 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 No chest pain. Continue BB and statin. I have reviewed with the patient the importance of a heart healthy lifestyle which includes eating a low-fat low-salt diet, getting regular exercise, maintaining a healthy weight, not smoking, and following up with routine medical care. * Michaela Anguiano NP - 12/20/2024 11:30 AM EDT Restart spironolactone 12.5mg daily in the morning Restart Jardiance 10mg daily in the evening Take furosemide 40mg twice a day with second dose about 6 hours after the first dose. * Michaela Anguiano NP - 12/20/2024 11:30 AM EDT Images from the original note were not included. [facility] PRIMARY FOLDER OPERATOR: Eddie Granados MD PCP: Yonathan Womack MD HPI: Russell Tiwari is a 79 y.o. old male with history of atrial fibrillation, sleep apnea, and possible inferior infarct. Patient is on chronic anticoagulation and would require bridging if his anti-coagulation was discontinued due to his history of stroke. Patient has residual right-sided weaknesssecondary to CVA. He is unable to wear a CPAP at night. Stress echocardiogram completed 12/10/2016 which was negative for ischemia at patient's maximum workload. Patient was hospitalized at [facility] 11/2022 where he presented with increased shortness of breath. Echocardiogram was done which showed a stable ejection fraction with an EF of 30 to 35%. He was seen by the rip tailer at [facility] and Entresto was added to his medical re gimen. He was hospitalized at [facility] 01/2023 where he presented with dizziness and periodsof blackout vision. CT and CTA revealed left lentiform nucleus hypodensity with concern for prior stroke. There is right ICA stenosis. Symptoms resolved however he continues to have chronic right lower extremity weakness from previous CVA. He was admitted for presyncope work-up and concern for possible TIA/stroke. MRI showed no evidence of acute/subacute infarction and showing some mild chronic microvascular changes. Ultimately the patient's symptoms resolved and his work-up was unremarkable. He was seen by neurology during hospitalization and no need for further neurological follow-up was nec essary. Patient's warfarin was held temporarily during hospitalization and then resumed after his MRI. CT of the neck 01/2023: Right carotid system: The common carotid and cervical internal carotid arteries are patent. There is predominantly noncalcified atherosclerotic plaque at the carotid bifurcation, resulting in mild ICA stenosis (35%) by NASCET criteria. There is no dissection or aneurysm. Left carotid system: The common carotid and cervical internal carotid arteries are patent. There is calcified atherosclerotic plaque at the carotid bifurcation, but no ICA stenosis (0%) by NASCET criteria. There is no dissection or aneurysm. Most recent echocardiogram was completed 06/2024 showed and LVEF of 25-30% with underlying regionalwall motion abnormality consistent with ischemic cardiomyopathy with grade 1 diastolic dysfunction. Patient was seen with Dr. Bunn 07/2024 and pt was advised that he met criteria for AICD. Patient has not had AICD placed. In the last week, patient has been to [place] ER 5 times. On 12/06/24 he was in ER with CHF exacerbation. Given 80mg IV lasix and discharged home. On 12/08/24 he was in ER again with same symptoms. Given 80mg IV lasix and discharged home. On 12/09/2024 he returned again with CHF exacerbation. This time they kept him for 3 days and he wastreated with IV diuretics. He had frequent PVCs on monitor and short ventricular runs, He was started on amidoarone 40mg BID. He was discharged home on furosemide 4omg BID and Jardiance 10mg daily aswell. On 12/13/2024 he was back in the ER complaining of loss of appetite, dry mouth and difficulties withnew medications. This time they thought he was dehydrated and gave him 2 liters of fluid. Jardiancewas held, spironolactone was held and lasix was decreased to 20mg BID. On 12/18/2024 he was back in ER with dry mouth. He was told to increase fluid intake and was discharged home. He presents today for hospital follow up. He is reporting dry mouth at night, however he is noting increased leg edema. he stopped amiodarone because of nausea. He stopped spironolactone because it was too much and stopped Jardiance due to nausea also. However he was taking amiodarone and jardiance at the same time. He did not get AICD because his daughter told him it would not improve quality of life. He is anxious. He takes ativen daily BID. He was last seen with Dr. Granados 03/2024. He was seen with Dr. Bunn 07/2024. ACTIVE MEDICATIONS: Current Outpatient Medications Medication Instructions CALCIUM-VITAMIN D3-MAGNESIUM ORAL 1 tablet, Daily coenzyme Q-10 100 mg capsule 1 capsule, Daily empagliflozin (JARDIANCE) 10 mg, oral, Every morning furosemide (LASIX) 40 mg, oral, 2 times daily LORazepam (ATIVAN) 0.5 mg tablet Take 0.5 Tablets by mouth 2 times daily. metoprolol succinate (TOPROL-XL) 50 mg, oral, Daily, Do not crush or chew. omeprazole (PriLOSEC) [address] capsule Take 20 mg by mouth daily. sacubitriL-valsartan (Entresto) 24-26 mg per tablet 1 tablet, 2 times daily simvastatin (ZOCOR) 20 mg tablet 0.5 tablets, Nightly spironolactone (ALDACTONE) 12.5 mg, oral, Daily warfarin (COUMADIN) 2.5 mg tablet Take 1 Tablet by mouth See Admin Instructions. May cause heavy bleeding. Take at same time every day. Do not change dietary habits. Managed by [facility]. 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 Heart valve disorder HFrEF (heart failure with reduced ejection fraction) ([facility] V24, [facility] V28) Knee pain Mixed hyperlipidemia PVD (peripheral vascular disease) ([facility] V24) ALLERGIES: Allergies Allergen Reactions Adenosine Erythromycin Stearate Iodinated Contrast Media SOCIAL HISTORY: Social History Tobacco Use Smoking status: Former Current packs/day: 0.00 Types: Cigarettes Quit date: 08/22/1998 Years since quittin.3 Smokeless tobacco: Never Substance Use Topics Alcohol use: Not Currently PHYSICAL EXAM: Vitals: 12/20/24 1135 BP: 118/66 BP Location: Left arm Patient Position: Sitting BP Cuff Size: Adult Pulse: 84 SpO2: 97% Weight: 89.8 kg (198 lb) Height: 1.727 m (68 ) Physical Exam Constitutional: General: He is not in acute distress. Appearance: He is not diaphoretic. HENT: Head: Normocephalic. Eyes: Pupils: Pupils are equal, round, and reactive to light. Neck: Vascular: No carotid bruit. Cardiovascular: Rate and Rhythm: Normal rate and regular rhythm. Pulses: Normal pulses. Heart sounds: Normal heart sounds. No murmur heard. No friction rub. Pulmonary: Effort: Pulmonary effort is normal. No respiratory distress. Breath sounds: Normal breath sounds. No stridor. No wheezing, rhonchi or rales. Chest: Chest wall: No tenderness. Abdominal: General: Bowel sounds are normal. There is no distension. Palpations: Abdomen is soft. Tenderness: There is no abdominal tenderness. Musculoskeletal: General: No deformity. Cervical back: Normal range of motion. Right lower leg: Edema present. Left lower leg: Edema present. Skin: General: Skin is warm and dry. Neurological: Mental Status: He is alert and oriented to person, place, and time. Gait: Gait abnormal. Psychiatric: Mood and Affect: Mood normal. EKG: TESTING: ASSESSMENT/PLAN: As per AHA guidelines and previously established plan of care by Dr. Eddie Granados MD, we discussed the following today: Assessment & Plan Atrial fibrillation, unspecified type ([facility] V24, [facility] V28) Patient has history of chronic atrial fibrillation which is adequately rate controlled on his present dose of metropolol. He continues on warfarin for anticoagulation denies any excessive bleeding orbruising. His UGY0OC8-WNUo score is 7 representing 11.2% risk for thromboembolism. He will require ongoing anticoagulation. HFrEF (heart failure with reduced ejection fraction) ([facility] V24, [facility] V28) Patient has history of HFrEF-EF 25-30% on last echocardiogram. He has been in/out of the hospital 5times in the last couple of weeks. He has been treated for CHF exacerbation and dehydration. He hasadjusted his medications and stopped medications as outlined above. We had a long discussion regarding GDMT and appropriate medical treatment of HFrEF. I would like him to continue with Entresto and metoprolol as prescribed. I advised he restart Jardiance and spironolactone. Repeat labs in 1 week. He is hypervolemic on exam today. He will continue with furosemide 40mg BID for now, however we willlikely cut back on this in the coming [...] day or 4 pounds in one week. 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 No chest pain. Continue BB and statin. I have reviewed with the patient the importance of a heart healthy lifestyle which includes eating a low-fat low-salt diet, getting regular exercise, maintaining a healthy weight, not smoking, and following up with routine medical care. Mixed hyperlipidemia Continue with simvastatin as prescribed. Thank you for allowing us to participate in the care of this patient. The patient will follow up in11 days, sooner PRN. I personally spent a total of 98 minutes, including both fbps-ne-shdy and kow-xezs-jq-face time on the date of the encounter, addressing the above diagnoses. Activities performed in this time include chart review, obtaining / reviewing history, performing amedically necessary evaluation, documentation and counseling. Reviewed multiple hospital records and had long discussion with patient regarding HFrEF and GDMT. [facility] Cosigned by Eddie Granados MD at 12/23/2024 1:16 PM EDT documented in this encounter Plan of Treatment Upcoming Encounters Date Type Department Care Team (Late st Contact Info) Description 12/31/2024 11:30 AM EDT Office Visit [facility] [place] [phone] Michaela Anguiano NP [address] [place] [address] Dr [address] [place] [address] 01/24/2025 9:10 AM EDT Office Visit [facility] [address] [facility] [place] [phone] Michaela Anguiano NP [address] [place] [address] Dr [address] [place] [address] Scheduled Orders Name Type Priority Associated Diagnoses Orde r Schedule Basic metabolic panel Lab Routine HFrEF (heart failure with reduced ejection fraction) ([facility] V24, CMS/HCC V28) 1 Occurrences starting 12/20/2024 until 12/20/2025 documented as of this encounter Procedures Procedure Name Priority Date/Time Associated Diagnosis Comments ECG 12-LEAD Routine 12/21/2024 12:00 AM EDT Atrial fibrillation, unspecified type (CMS/[facility] V24, CMS/[facility] V28) documented in this encounter Results * ECG 12 lead (12/21/2024 12:00 AM EDT) 12/20/2024 11:4 2 AM EDT us Michaela Anguiano NP ECG ORDERABLES Final Result GEMUSE documented in this encounter Visit Diagnoses Diagnosis HFrEF (heart failure with reduced ejection fraction) (CMS/HCC V24, CMS/HCC V28)- Primary Atrial fibrillation, unspecified type (CMS/HCC V24, CMS/HCC V28) 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 Patient is on loading dose and will taper down Prescriber Discontinued 12/20/2024 spironolactone (ALDACTONE) 25 mg tablet Take 0.5 tablets (12.5 mg total) by mouth 1 (one) time each day. Reorder 10/15/2024 12/20/2024 empagliflozin (Jardiance) 10 mg tablet Take 1 tablet (10 mg total) by mouth 1 (one) time each day in the morning. Reorder 12/20/2024 empagliflozin (Jardiance) 10 mg tablet Take 1 tablet (10 mg total) by mouth 1 (one) time each day in the morning. 12/20/2024 12/20/2024 spironolactone (ALDACTONE) 25 mg tablet Take 0.5 tablets (12.5 mg total) by mouth 1 (one) time each day. 12/20/2024 12/20/2024 documented as of this encounter Care Teams Recycling Center Operator Relationship Specialty Start Date End Date Yonathan Womack MD [address] [place] [id number] PCP - General 12/26/12 documented as of this encounter
[2024-12-24 11:15] LABS: Anion Gap 12 (12-20); Blood Urea Nitrogen 22 mg/dL (9-16); Calcium 9.2 mg/dL (8.4-10.2); Carbon Dioxide 29 mmol/L (22-29); Chloride 99 mmol/L (96-108); Estimated Glomerular Filt Rate 56; Glucose Random 121 mg/dL (60-115); Sodium 137 mmol/L (135-145)
== END 2024-12-24 08:41 | disposition home or self-care (01) ==
LOC: HO.LAB 08:40
PROVIDERS: PCP Internal Medicine; Visit Provider Nurse Practitioner
DX: I50.20 Unspecified systolic (congestive) heart failure (principal)
CPT/HCPCS: 36415; 80048

== ENCOUNTER 2024-12-28 09:31 | Outpatient (REF) | payer MEDICARE, MEDICAID, SELFPAY ==
--- OUTSIDE RECORDS SUMMARY | 2024-12-28 09:50 | XMS_ITS ---
Author Organization Yonathan Womack MD Address [address] [place] [phone] Care Team Providers Care Precinct I Police Sergeant Name Role Phone Shanta Yonathan Primary Care [...] [place] 12/20/2024 09:57:31 AM >REFERRAL FAXED TO [facility] FOR [facility] APPT, Otilia Nova 12/24/2024 09:44:40 AM >spoke with patient no need for this referral. He will be seeing his old custom van converter Dr. Moody Referral Priority Routine REASON FOR VISIT PH/TCM, [...] kg/m2 12/20/2024 weight is down 4 pounds sin e 10-25-24 Encounters Encounter Location Date Provider Diagnosis Yonathan Womack MD [address] [place] [address] Drive [address] [place] [phone] 12/20/2024 Yonathan Womack Acute on chronic systolic [...] Reason: Provider Name:Yonathan mendoza, 01/10/2025 10:15:00 AM, [address] [place] [address], Suite [facility], [place], [place], [phone], Provider Name:Yonathan mendoza, 01/10/2025 10:15:00 AM, [address] [place] [address], Suite [facility], [place], [place], [phone], Provider Name:Yonathan mendoza, 03/21/2025 07:00:00 AM, [address] [place] [address], [address] [place] [address], [phone], Provider Name:Yonathan mendoza, 09/17/2025 07:45:00 AM, [address] [place] [address], [address], [place], [place], [phone], Provider Name:Yonathan Pan ier, 09/24/2025 01:00:00 PM, [address] [facility], [address], [place], [phone], Progress Notes * STEVEN NUNEZDOB: [birth year] (79 yo M)Acc No.[id number]:12/20/2024 Patient:?STEVEN NUNEZ Provider:?Yonathan Womack MD :1945???Age:79 Y???Sex:Male Jr e:12/20/2024 Address:[address] [place], [place] [phone] Subjective: * Chief Complaints: * ???PH/TCMPatient has been to the ER 6 times during the month of November and admitted twice * HPI: ???Symptom(s):?patient is a 79 yo [...] NEEDED Orally Once a day Metoprolol Succinate 50 MG Capsule ER 24 [...] Tablet 1 tablet Orally Twice a day Furosemide 20 MG Tablet 2 tabs twice a day Orally twice a day Ondansetron 4 MG Tablet Disintegrating 1 tablet on the tongue and allow to dissolve Orally twice a day Taking Co Q 10 100 MG Capsule [...] Orally Once a day Taking Metoprolol Succinate 50 MG Capsule ER [...] 1 tablet Orally Twice a day Taking Furosemide 20 MG Tablet 2 tabs twice a day Orally twice a day Taking Ondansetron 4 MG Tablet Disintegrating 1 tablet on the tongue and allow to dissolve Orally twice a day Not-Taking/PRNSpironolactone 25 MG Tablet 1 tablet Orally Tylenol Extra Strength 500 MG Tablet 1/2 tablet Orally every 6 hrs Imodium A-D 2 MG Tablet 1 tablet as needed Orally Four times a day Triamcinolone Acetonide 0.5 % Cream 1 application to affected area Externally Twice a day Nitrostat 0.4 MG Tablet Sublingual as directed Sublingual every 5 mins times 3 Medication List reviewed and reconciled with the patientNot-Taking/PRN Spironolactone 25 MG Tablet 1 tablet Orally Not-Taking/PRN Tylenol Extra Strength 500 MG Tablet [...] euesyes[Allergies Verified] Objective: * Vitals:?Ht: 69, Wt: 205, BMI [...] - Z79.01??? Plan: * Treatment: 2.?Atrial fibrillation, physician ophthalmologist bean? Continue Metoprolol Succinate Capsule ER 24 [...] Clayton??Cardiovascular Disease ?Reason:ACUTE CHRONIC SYSTOLIC CHF * Procedure Codes:? * Follow Up:?3 Weeks * * Sign off status: Completed true * Provider:?Yonathan Womack MD Date:?0 12/20/2024 Generated for Douglas whitehead/Galina/Madyitting on:?12/28/2024 09:49 AM EDT History and Physical Notes * [...]
--- OUTSIDE RECORDS SUMMARY | 2024-12-28 09:50 | XMS_ITS | Encounter Summary ---
Author Organization [facility] Address [address] [place] [address] Care Team Providers Care Fine Sander Name Role Phone Yonathan Womack MD Primary Care Provider [phone]- [phone] Encounter Details Date Type Department Care Team (Late st Contact Info) Description 12/25/2024 Telephone [facility] [address] [place] [phone] Michaela Anguiano NP [address] [place] [address] Dr [address] [place] [address] Social History Tobacco Use Types Packs/Day Years [...] Date spironolactone (ALDACTONE) 25 mg tablet Take 1 tablet (25 mg total) by mouth 1 (one) time each day. 90 tablet 1 12/25/2024 documented in this encounter Progress Notes * Pat Melo MA - 12/26/2024 10:55 AM EDT Lab order was re-faxed to [facility] to fax # listed. * Theresa Perez - 12/26/2024 9:26 AM EDT Patient called [facility] and they stated they did not receive the lab order if we could re-fax it to [phone]. He is unsure if this is fasting or no fasting lab. * Pat Melo MA - 12/25/2024 4:06 PM EDT Patient was reached and informed of lab results and to increase his Spironolactone to 25 mg daily/repeat a BMP on Tuesday. BMP was ordered and faxed to [facility], fax # [phone]. Confirmation received from right fax. Patient verbalized understanding of all directions. * Michaela Anguiano NP - 12/25/2024 3:56 PM EDT REviewed labs today. Creatinine 1.24. Potassium 3.0. Patient stopped Jardiance yesterday. Lets havehim increase spironolactone to 25 mg daily and repeat basic metabolic panel again on Tuesday. documented in this encounter Plan of Treatment Upcoming Encounters Date Type Department Care Team (Late st Contact Info) Description 12/31/2024 11:30 AM EDT Office Visit [facility] Cardiology [facility] [address] [place] [address] Michaela Anguiano NP [address] [place] [address] Dr [address] [place] [address] 01/24/2025 9:10 AM EDT Office Visit [facility] [address] [place] [address] Michaela Anguiano NP [address] [place] [address] [place] [address] Scheduled Orders Name Type Priority Associated Diagnoses Orde r Schedule Basic metabolic panel Lab Routine HFrEF (heart failure with reduced ejection fraction) ([facility] V24, [facility] V28) 1 Occurrences starting 12/25/2024 until 12/25/2025 Basic metabolic panel Lab Routine HFrEF (heart failure with reduced ejection fraction) ([facility] V24, [facility] V28) 1 Occurrences starting 12/25/2024 until 12/25/2025 documented as of this encounter Visit Diagnoses Diagnosis HFrEF (heart failure with reduced ejection fraction) ([facility] V24, [facility] V28)- Primary documented in this encounter Discontinued Medications Medication Sig Discontinue Reason Start Date End Da te spironolactone (ALDACTONE) 25 mg tablet Take 0.5 tablets (12.5 mg total) by mouth 1 (one) time each day. 12/20/2024 12/25/2024 documented as of this encounter Care Teams Fine Sander Relationship Specialty Start Date End Date Yonathan Womack MD [address] [place] [address] Drive [address] [place], [place] [phone] PCP - General 12/26/12 documented as of this encounter
--- OUTSIDE RECORDS SUMMARY | 2024-12-28 09:50 | XMS_ITS | Encounter Summary ---
Author Organization [facility] Address [address] [place] [address] Care Team Providers Care Olericulturist Name Role Phone Yonathan Womack MD Primary Care Provider [phone]- [phone] Reason for Visit * Reason Onset Date Comments Medication Problem 12/24/2024 Med Refill 12/24/2024 Encounter Details Date Type Department Care Team (Late st Contact Info) Description 12/24/2024 Telephone [facility] [address] [place] [address] Michaela Anguiano NP [address] [place] [address] [address] [place] [address] Medication Problem; Med Refill Social History Tobacco Use Types [...] (two) times a day. 180 tablet 3 12/24/2024 documented in this encounter Progress Notes * Alycia Westbrook RN - 12/24/2024 3:26 PM EDT Jardiance added to allergy list * Michaela Anguiano NP - 12/24/2024 3:21 PM EDT Called the patient back and advised him to stop the Jardiance. He will get something at the pharmacy for bowel regimen. He is in a continue on the furosemide 40 mg twice a day. His blood pressure is a little bit low so not increasing this at this time. I will see him next week and we will continue to monitor him and titrate his medications as needed. Please list Jardiance as an allergy because I believe he had difficulties when he tried this before with throat swelling. We will avoid this medication in the future. * Alycia Westbrook RN - 12/24/2024 1:26 PM EDT Russell Tiwari is a 79 y.o. male, followed by Dr. Granados/ ALIE Michaela Anguiano with cardiac history of ischemic cardiomyopathy, atrial fibrillation and possible inferior infarct. Additional history includes sleep apnea- unable to wear CPAP at night and CVA. Last office visit 12/20/24. Patient is calling to report symptoms of orthopnea, constipation, nausea, throat tightness, difficulty swallowing, shortness of breath, and orthopnea since restarting Jardiance and Spironolactone last week. He reports minimal shortness of breath on exertion and stated SOB is more severe at night. He has a hospital bed and sleeps with the HOB elevated. Despite doing so, he continues to endorse orthopnea and sleeps 1-3 hours a night. BLE edema has decreased since JATIN. He reported losing a pound aday since last . His weight today is 196.4 lbs and his weight on 12/20/24 in the office resulted 198 lbs. He denies chest discomfort and reported he's not sure if he's bloated. He had a bowel movement this morning and described the consistency of his stool as marbles. Patient consumes a low salt diet and reports compliance with his cardiac medications. Pt completed blood work today. He questioned if he should stop Jardiance? * Martha Diallo - 12/24/2024 10:55 AM EDT Patient states he has issues with the Jardiance. He has trouble swallowing, not able to sleep at night, shortness of breath when he lays in breath, unable to use the bathroom. Patient also needs a refill for Furosemide 20 mg 2 times daily. Send to [facility] on [facility] in [place] for a 90 day supply. documented in this encounter Plan of Treatment Upcoming Encounters Date Type Department Care Team ([facility] Contact Info) Description 12/31/2024 11:30 AM EDT Office Visit [facility] [place] [address] Michaela Anguiano NP [address] [place] [address] Dr [address] [place] [phone] 01/24/2025 9:10 AM EDT Office Visit [facility] [place] [address] Michaela Anguiano NP [address] [place] [address] Dr [address] [place] [phone] documented as of this encounter Visit Diagnoses Not on filedocumented in this encounter Discontinued Medications Medication Sig Discontinue Reason Start Date End Da te empagliflozin (Jardiance) 10 mg tablet Take 1 tablet (10 mg total) by mouth 1 (one) time each day in the morning. Prescriber Discontinued 12/20/2024 12/24/2024 furosemide (LASIX) 20 mg tablet Take 2 tablets (40 mg total) by mouth 2 (two) times a day. Reorder 12/14/2024 12/24/2024 documented as of this encounter Care Teams Olericulturist Relationship Specialty Start Date End Date Yonathan Womack MD [address] [place] [address] [address] [place] [address] PCP - General 12/26/12 documented as of this encounter
--- OUTSIDE RECORDS SUMMARY | 2024-12-28 09:50 | XMS_ITS | Encounter Summary ---
Author Organization [facility] Address [address] [place] [id number] Care Team Providers Care Forms Examiner Name Role Phone Yonathan Womack MD Primary Care Provider [phone]- [phone] Reason for Visit * Reason Onset Date Comments Med Refill 11/29/2024 Metoprolol Encounter Details Date Type Department Care Team (Late st Contact Info) Description 11/29/2024 Telephone [facility] [address] [place] [address] Dr [address] [place] [phone] Eddie Granados MD [address] [place] [address] [address] [place] [address] Med Refill (Metoprolol) Social History Tobacco Use [...] day supply, please send to [facility] on [facility] in [place]. documented in this encounter Plan of Treatment Upcoming Encounters Date Type Department Care Team (Late st Contact Info) Description 12/31/2024 11:30 AM EDT Office Visit [facility] [address] [place] [address] [place] [address] Michaela Anguiano NP [address] [place] [address] [address] [place] [address] 01/24/2025 9:10 AM EDT Office Visit [facility] [place] [address] Michaela Anguiano NP [address] [place] [address] [address] [place] [address] documented as of this encounter Visit Diagnoses [...] documented as of this encounter Care Teams Forms Examiner Relationship Specialty Start Date End Date Yonathan Womack MD [address] [facility] [address] [place] [address] PCP - General 12/26/12 documented as of this encounter
--- OUTSIDE RECORDS SUMMARY | 2024-12-28 09:50 | XMS_ITS | Patient Health Record ---
Author Organization Yonathan Womack MD Address [address] [place], [place] [id number] Care Team Providers Care Senior Marketing Associate Name Role Phone Yonathan Womack Primary Care Provider [phone] Allergies Allergen (clinical drug ingredient) Drug/Non Drug [...] ff Reviewed date:09/17/2024 05:23:58 PM Interpretation: Performing Lab:[facility], [address] [place] [phone] Notes/Report: White Blood Count 8.3 4.8-10.8 X10*3/uL [...] NRBC Abs Auto 0.000 0.0-0.012 X10*3/uL Comprehensive [place]. Panel Fa st Reviewed date:09/17/2024 05:21:17 PM Interpretation: Performing Lab:[facility], [address] [place] [phone] Notes/Report: Sodium 137 135-145 mmol/L Potassium 4.2 [...] Panel Reviewed date:09/17/2024 05:02:42 PM Interpretation: Performing Lab:[address] [phone] Notes/Report: Triglycerides 85 <150 mg/dL Desirable Triglyceride: [...] Total Reviewed date:09/17/2024 05:02:53 PM Interpretation: Performing Lab:[address] [phone] Notes/Report: Vitamin D 25-OH Total 66.5 >30 [...] A1c Reviewed date:09/17/2024 05:01:59 PM Interpretation: Performing Lab:[facility], [address] [place] [phone] Notes/Report: Hemoglobin A1c % 5.9 <6.0 % [...] average glucose, using the formula of the Q6X-[id number] Average Glucose study (ADAG), Diabetes Care, Vol.31,#8, Mar. 2007 INR WHOLE BLOOD POC Reviewed date:01/05/2024 12:45:42 PM Interpretation: Performing Lab:[facility], [address] [place] [phone] Notes/Report: PT, INR - Anti Coag Clinic 2.1 0.9-1.1 METER #: [id number] INTERNATIONAL NORMALIZED RATIO (INR) REFERENCE RANGES Reference [...] OC Reviewed date:01/05/2024 12:51:44 PM Interpretation: Performing Lab:[facility], [address] [place] [phone] Notes/Report: Prothrombin Time Whole Bld POC 25.7 11.1-13.5 sec Complete Blood Count Auto Di ff Reviewed date:01/13/2024 04:12:10 PM Interpretation: Performing Lab:[facility], [address] [place] [phone] Notes/Report: White Blood Count 7.9 4.8-10.8 X10*3/uL [...] INR Reviewed date:01/13/2024 04:05:04 PM Interpretation: Performing Lab:[facility], [address] [place] [phone] Notes/Report: Prothrombin Time 23.8 11.1-13.3 SEC INTERNATIONAL [...] Time Reviewed date:01/13/2024 04:04:44 PM Interpretation: Performing Lab:[facility], [address] [place] [phone] Notes/Report: Partial Thromboplastin Time 38.4 26.0-36.8 SEC For information regarding the monitoring of direct thrombin inhibitors, please refer to Pharmacy. Liver Panel Reviewed date:01/13/2024 04:05:24 PM Interpretation: Performing Lab:[facility], [address] [place] [phone] Notes/Report: Bilirubin Total 0.8 0.0-1.0 mg/dL Bilirubin Direct 0.3 0.0-0.5 mg/dL Aspartate Amino Transferase 18 5-37 U/L Alanine Aminotransferase 16 0-40 U/L Total Protein 6.9 6.5-8.0 g/dL Albumin Level 4.0 3.5-5.0 g/dL Alkaline Phosphatase 72 39-117 U/L Basic Metabolic Panel Reviewed date:01/13/2024 04:06:37 PM Interpretation: Performing Lab:[facility], [address] [place] [phone] Notes/Report: Sodium 138 135-145 mmol/L Potassium 3.8 [...] Glomerular Filt Rate > 60 NOTE: For -[place]ine[place] individuals, multiply the result by 1.210. Chronic Kidney Disease: Estimated GFR < 60 mL/min/1.73m2 Severe Kidney Disease: Estimated GFR < 15 mL/min/1.73m2 Glucose Random 131 60-115 mg/dL Calcium 9.6 8.4-10.2 mg/dL B Type Natriuretic Peptide Reviewed date:01/13/2024 04:04:32 PM Interpretation: Performing Lab:[facility], [address] [place] [phone] Notes/Report: B Type Natriuretic Peptide 246 <100 pg/mL For those patients who are being treated with Natrecor (nesiritide, recombinant BNP), BNP testing should be performed at least two hours post treatment in order to ensure that only endogenous levels of BNP are detected. US venous duplex LE LT Reviewed date:01/16/2024 01:42:02 PM Interpretation: Performing Lab: Notes/Report: [address] [address] Ultrasound Report Signed Patient: Steven Tiwari MR#: [id number] : 1945 Acct:[id number] Age/Sex: 78 / M ADM Date: 01/13/24 Loc: HO.ED Attending Dr: Ordering Physician: Shae Fernandez Date of Service: 01/13/24 Procedure(s): US venous duplex LE LT Accession Number(s): [id number] cc: Yonathan Womack MD; Shae Fernandez EXAMINATION: [...] in OV> 01/13/24 163 DD/ 1540 TD/TT: Drywall Contractor: ILIANA [address] [address] Ultrasound Report Signed Patient: Steven Tiwari MR#: [id number] : 1945 Acct:[id number] Age/Sex: 78 / M ADM Date: 01/13/24 Loc: HO.ED Attending Dr: Ordering Physician: Shae Fernandez Date of Service: 01/13/24 Procedure(s): US romeo ous duplex LE LT Accession Number(s): [id number] cc: Yonathan Womack MD; Shae Fernandez EXAMINATION: [...] in OV> 01/13/24 1639 DD/ 1540 TD/TT: Frame Straightener ist: ILIANA INR WHOLE BLOOD POC Reviewed date:02/02/2024 11:56:26 AM Interpretation: Performing Lab:[facility], [address] [place] [phone] Notes/Report: PT, INR - Anti Coag Clinic 2.0 0.9-1.1 METER #: [id number] INTERNATIONAL NORMALIZED RATIO (INR) REFERENCE RANGES Reference [...] OC Reviewed date:02/02/2024 11:56:57 AM Interpretation: Performing Lab:[facility], [address] [place] [phone] Notes/Report: Prothrombin Time Whole Bld POC 24.3 11.1-13.5 sec INR WHOLE BLOOD POC Reviewed date:02/21/2024 12:32:10 PM Interpretation: Performing Lab:[facility], [address] [place] [phone] Notes/Report: PT, INR - Anti Coag Clinic 2.6 0.9-1.1 METER #: [id number] INTERNATIONAL NORMALIZED RATIO (INR) REFERENCE RANGES Reference [...] OC Reviewed date:02/21/2024 12:33:44 PM Interpretation: Performing Lab:[facility], [address] [place] [phone] Notes/Report: Prothrombin Time Whole Bld POC 30.9 11.1-13.5 sec INR WHOLE BLOOD POC Reviewed date:03/20/2024 12:25:26 PM Interpretation: Performing Lab:[facility], [address] [place] [phone] Notes/Report: PT, INR - Anti Coag Clinic 2.2 0.9-1.1 METER #: [id number] INTERNATIONAL NORMALIZED RATIO (INR) REFERENCE RANGES Reference [...] OC Reviewed date:03/20/2024 12:37:24 PM Interpretation: Performing Lab:[facility], [address] [place] [phone] Notes/Report: Prothrombin Time Whole Bld POC 26.6 11.1-13.5 sec INR WHOLE BLOOD POC Reviewed date:04/17/2024 12:02:54 PM Interpretation: Performing Lab:[facility], [address] [place] [phone] Notes/Report: PT, INR - Anti Coag Clinic 2.1 0.9-1.1 METER #: [id number] INTERNATIONAL NORMALIZED RATIO (INR) REFERENCE RANGES Reference [...] OC Reviewed date:04/17/2024 11:58:45 AM Interpretation: Performing Lab:[facility], [address] [place] [phone] Notes/Report: Prothrombin Time Whole Bld POC 25.0 11.1-13.5 sec INR WHOLE BLOOD POC Reviewed date:05/15/2024 11:36:59 AM Interpretation: Performing Lab:[facility], [address] [place] [phone] Notes/Report: PT, INR - Anti Coag Clinic 1.8 0.9-1.1 METER #: [id number] INTERNATIONAL NORMALIZED RATIO (INR) REFERENCE RANGES Reference [...] OC Reviewed date:05/15/2024 10:55:33 AM Interpretation: Performing Lab:[facility], [address] [place] [phone] Notes/Report: Prothrombin Time Whole Bld POC 21.1 11.1-13.5 sec INR WHOLE BLOOD POC Reviewed date:05/29/2024 10:08:18 AM Interpretation: Performing Lab:[facility], [address] [place] [phone] Notes/Report: PT, INR - Anti Coag Clinic 2.0 0.9-1.1 METER #: [id number] INTERNATIONAL NORMALIZED RATIO (INR) REFERENCE RANGES Reference [...] OC Reviewed date:05/29/2024 10:08:25 AM Interpretation: Performing Lab:[facility], [address] [place] [phone] Notes/Report: Prothrombin Time Whole Bld POC 24.0 11.1-13.5 sec INR WHOLE BLOOD POC Reviewed date:06/26/2024 10:55:58 AM Interpretation: Performing Lab:[facility], [address] [place] [phone] Notes/Report: PT, INR - Anti Coag Clinic 2.6 0.9-1.1 METER #: [id number] INTERNATIONAL NORMALIZED RATIO (INR) REFERENCE RANGES Reference [...] OC Reviewed date:06/26/2024 10:55:20 AM Interpretation: Performing Lab:[facility], [address] [place] [phone] Notes/Report: Prothrombin Time Whole Bld POC 31.3 11.1-13.5 sec INR WHOLE BLOOD POC Reviewed date:07/24/2024 12:43:30 PM Interpretation: Performing Lab:[facility], [address] [place] [phone] Notes/Report: PT, INR - Anti Coag Clinic 2.7 0.9-1.1 METER #: [id number] INTERNATIONAL NORMALIZED RATIO (INR) REFERENCE RANGES Reference [...] OC Reviewed date:07/24/2024 12:43:38 PM Interpretation: Performing Lab:[facility], [address] [place] [phone] Notes/Report: Prothrombin Time Whole Bld POC 32.5 11.1-13.5 sec INR WHOLE BLOOD POC Reviewed date:08/23/2024 12:31:58 PM Interpretation: Performing Lab:[facility], [address] [place] [phone] Notes/Report: PT, INR - Anti Coag Clinic 2.6 0.9-1.1 METER #: [id number] INTERNATIONAL NORMALIZED RATIO (INR) REFERENCE RANGES Reference [...] OC Reviewed date:08/23/2024 12:31:49 PM Interpretation: Performing Lab:[facility], [address] [place] [phone] Notes/Report: Prothrombin Time Whole Bld POC 31.7 11.1-13.5 sec PSA,Total (Free>4and<10) Reviewed date:09/17/2024 05:00:46 PM Interpretation: Performing Lab:[facility], [address] [place] [phone] Notes/Report: PSA,Total (Free>4and<10) 0.21 0.00-4.00 ng/mL A [...] POC Reviewed date:09/20/2024 11:51:44 AM Interpretation: Performing Lab:[facility], [address] [place] [phone] Notes/Report: PT, INR - Anti Coag Clinic 2.2 0.9-1.1 METER #: [id number] INTERNATIONAL NORMALIZED RATIO (INR) REFERENCE RANGES Reference [...] OC Reviewed date:09/20/2024 12:12:38 PM Interpretation: Performing Lab:[facility], [address] [place] [phone] Notes/Report: Prothrombin Time Whole Bld POC 26.6 11.1-13.5 sec INR WHOLE BLOOD POC Reviewed date:10/18/2024 12:44:55 PM Interpretation: Performing Lab:[facility], [address] [place] [phone] Notes/Report: PT, INR - Anti Coag Clinic 2.9 0.9-1.1 METER #: [id number] INTERNATIONAL NORMALIZED RATIO (INR) REFERENCE RANGES Reference [...] OC Reviewed date:10/18/2024 12:44:46 PM Interpretation: Performing Lab:[facility], [address] [place] [phone] Notes/Report: Prothrombin Time Whole Bld POC 34.6 11.1-13.5 sec US renal BI Reviewed date:11/13/2024 12:24:24 PM Interpretation: Performing Lab: Notes/Report: [address] [address] Ultrasound Report Signed Patient: Steven Tiwari MR#: [id number] : 1945 Acct:[id number] Age/Sex: 79 / M ADM Date: 11/12/24 Loc: HO.US Attending Dr: Yonathan Womack MD Ordering Physician: Yonathan Womack MD Date of Service: 11/12/24 Procedure(s): US renal BI Accession Number(s): [id number] cc: Yonathan Womack MD CLINICAL HISTORY: Disorders of adrenal gland US RENAL Comparison: US/NC/SR - US ABDOMEN COMPLETE - 10/06/23 08:38 [...] 11/12/24 1740 DD/ 1739 TD/TT: 11/12/24 173 Drywall Contractor: [place] [address] Ultrasound Report Signed Patient: Steven Tiwari MR#: [id number] : 1945 Acct:[id number] Age/Sex: 79 / M ADM Date: 11/12/24 Loc: HO.US Attending Dr: Yonathan Womack MD Ordering Physician: Yonathan Womack MD Date of Service: 11/12/24 Procedure(s): US evelyne Aranda Accession Number(s): [id number] cc: Yonathan Womack MD CLINICAL HISTORY: Disorders of adrenal gland US RENAL Comparison: US/NC/SR - US ABDOMEN COMPLETE - 10/06/23 08:38 [...] 11/12/24 1740 DD/ 173 TD/TT: 11/12/24 173 Drywall Contractor: INR WHOLE BLOOD POC Reviewed date:11/19/2024 12:19:08 PM Interpretation: Performing Lab:[facility], [address] [place] [phone] Notes/Report: PT, INR - Anti Coag Clinic 2.7 0.9-1.1 METER #: [id number] INTERNATIONAL NORMALIZED RATIO (INR) REFERENCE RANGES Reference [...] OC Reviewed date:11/19/2024 12:18:23 PM Interpretation: Performing Lab:[facility], [address] [place] [phone] Notes/Report: Prothrombin Time Whole Bld POC 32.8 11.1-13.5 sec Complete Blood Count Auto Di ff Reviewed date:12/10/2024 04:29:58 PM Interpretation: Performing Lab:[facility], [address] [place] [phone] Notes/Report: White Blood Count 7.7 4.8-10.8 X10*3/uL [...] INR Reviewed date:12/10/2024 04:19:38 PM Interpretation: Performing Lab:[address] [phone] Notes/Report: Prothrombin Time 31.9 10.9-12.4 SEC INTERNATIONAL [...] Time Reviewed date:12/10/2024 04:20:01 PM Interpretation: Performing Lab:[facility], [address] [place] [phone] Notes/Report: Partial Thromboplastin Time 41.3 26.0-36.8 SEC For information regarding the monitoring of direct thrombin inhibitors, please refer to Pharmacy. Comprehensive Met. Panel Reviewed date:12/10/2024 04:27:04 PM Interpretation: Performing Lab:[facility], [address] [place] [phone] Notes/Report: Sodium 137 135-145 mmol/L Potassium 3.5 [...] Magnesium Reviewed date:12/10/2024 04:22:04 PM Interpretation: Performing Lab:[facility], [address] [place] [phone] Notes/Report: Magnesium 1.5 1.6-2.6 mg/dL Troponin-I High Sensitivity Reviewed date:12/10/2024 04:19:00 PM Interpretation: Performing Lab:[facility], [address] [place] [phone] Notes/Report: Troponin-I High Sensitivity 53.3 <3.5-35.0 ng/L The Rahman high sensitivity Troponin-I results should be used in conjunction with other diagnostic information such as ECG, clinical observations and information, and patient symptoms to aid in the diagnosis of [place]. B Type Natriuretic Peptide Reviewed date:12/10/2024 04:19:53 PM Interpretation: Performing Lab:[facility], [address] [place] [phone] Notes/Report: B Type Natriuretic Peptide 1054 <100 pg/mL Lipase Reviewed date:12/10/2024 04:20:58 PM Interpretation: Performing Lab:[facility], [address] [place] [phone] Notes/Report: Lipase 29 8-78 U/L Glucose, Whole Blood Reviewed date:12/10/2024 04:26:07 PM Interpretation: Performing Lab:[facility], [address] [place] [phone] Notes/Report: Glucose, Whole Blood 120 60-115 mg/dL METER # : [id number] SARS-CoV2/FLU/RSV Reviewed date:12/10/2024 04:18:51 PM Interpretation: Performing Lab:[facility], [address] [place] [phone] Notes/Report: Influenza A PCR NEGATIVE Negative Influenza [...] by authorized laboratories. Testing performed on the [employer] GeneXpert utilizing real-time RT-PCR. All SARS CoV2 and positive influenza A/B results are reported to [facility]. UA CC w/rflx Micro + Cult Reviewed date:12/12/2024 06:31:56 PM Interpretation: Performing Lab:[facility], [address] [place] [phone] Notes/Report: Urine, Clean Catch Color Urine Yellow Appearance Urine Clear PH 7.0 5.0-9.0 Glucose Urine UA Negative Negative mg/dL Urine Blood Negative Negative Specific [place] - Urine 1.010 1.005-1.025 Urine Protein Negative Neg-Trace mg/dL Urine Ketones Negative Negative mg/dL Nitrite Urine Negative Negative Leukocyte Esterase Urine Negative Negative Venous Blood Gases - POC Reviewed date:12/10/2024 04:26:00 PM Interpretation: Performing Lab:[facility], [address] [place] [phone] Notes/Report: VBG pH 7.53 7.32-7.43 METER #: [id number] additional_comment: [facility] VBG pCO2 34 METER #: [id number] additional_comment: Cb [facility]tonl VBG pO2 55 METER #: [id number] additional_comment: Cb claytonl VBG Base Excess 6.3 METER #: [id number] additional_comment: Cb claytonl VBG HCO3 28 22-26 mmol/L METER #: [id number] additional_comment: Cb claytonl VBG O2 % Saturation 87.0 METER #: [id number] additional_comment: Cb springl XR chest 1V Reviewed date:12/10/2024 04:19:30 PM Interpretation: Performing Lab: Notes/Report: [address] [address] XRay Report Signed Patient: Steven Tiwari MR#: [id number] : 1945 Acct:[id number] Age/Sex: 79 / M ADM Date: 12/09/24 Loc: HO.ED Attending Dr: Ordering Physician: Ian Fairchild MD Date of Service: 12/09/24 Procedure(s): XR chest 1V Accession Number(s): [id number] cc: Yonathan Womack MD; Ian Fairchild MD [...] 12/09/24 1237 DD/ 1235 TD/TT: 12/09/24 123 Drywall Contractor: [address] [address] XRay Report Signed Patient: Steven Tiwari MR#: [id number] : 1945 Acct:[id number] Age/Sex: 79 / M ADM Date: 12/09/24 Loc: .ED Attending Dr: Ordering Physician: Ian Fairchild MD Date of Service: 12/09/24 Procedure(s): XR robin st 1V Accession Number(s): [id number] cc: Yonathan Womack MD; Ian Fairchild MD [...] 12/09/24 1237 DD/ 1235 TD/TT: 12/09/24 1235 Drywall Contractor: Complete Blood Count Auto Di ff Reviewed date:12/10/2024 04:30:36 PM Interpretation: Performing Lab:[facility], [address] [place] [phone] Notes/Report: White Blood Count 9.0 4.8-10.8 X10*3/uL [...] gy Reviewed date:12/10/2024 04:29:17 PM Interpretation: Performing Lab:[facility], [address] [place] [phone] Notes/Report: Hold Lav - Possible Hematology SEE NOTE Specimen will be held untested for 8 hours. Call Hematology if testing is desired. Prothrombin Time INR Reviewed date:12/10/2024 04:26:18 PM Interpretation: Performing Lab:[facility], [address] [place] [phone] Notes/Report: Prothrombin Time 28.1 10.9-12.4 SEC INTERNATIONAL [...] Panel Reviewed date:12/10/2024 04:29:09 PM Interpretation: Performing Lab:[facility], [address] [place] [phone] Notes/Report: Sodium 136 135-145 mmol/L Potassium 3.4 [...] Magnesium Reviewed date:12/10/2024 04:19:08 PM Interpretation: Performing Lab:[facility], [address] [place] [phone] Notes/Report: Magnesium 2.1 1.6-2.6 mg/dL Glucose, Whole Blood Reviewed date:12/10/2024 04:29:26 PM Interpretation: Performing Lab:[facility], [address] [place] [phone] Notes/Report: Glucose, Whole Blood 99 60-115 mg/dL METER # : [id number] Hold Lav - Possible Hematolo gy Reviewed date:12/11/2024 06:37:44 PM Interpretation: Performing Lab:[facility], [address] [place] [phone] Notes/Report: Hold Lav - Possible Hematology SEE NOTE Specimen will be held untested for 8 hours. Call Hematology if testing is desired. Prothrombin Time INR Reviewed date:12/11/2024 06:42:07 PM Interpretation: Performing Lab:[facility], [address] [place] [phone] Notes/Report: Pt in MARY JANE burgess 07Rosales [...] Panel Reviewed date:12/11/2024 06:36:39 PM Interpretation: Performing Lab:[facility], [address] [place] [phone] Notes/Report: Pt in MARY JANE burgess Sodium [...] Magnesium Reviewed date:12/11/2024 06:36:22 PM Interpretation: Performing Lab:[facility], [address] [place] [phone] Notes/Report: Pt in makenzieer MARY JANE 0701 Magnesium 2.2 1.6-2.6 mg/dL Hold Lav - Possible Hematolo gy Reviewed date:12/12/2024 12:34:00 PM Interpretation: Performing Lab:[facility], [address] [place] [address] Notes/Report: Hold Lav - Possible Hematology SEE NOTE Specimen will be held untested for 8 hours. Call Hematology if testing is desired. Prothrombin Time INR Reviewed date:12/12/2024 12:34:31 PM Interpretation: Performing Lab:[facility], [address] [place] [phone] Notes/Report: Prothrombin Time 37.1 10.9-12.4 SEC INTERNATIONAL [...] Panel Reviewed date:12/12/2024 12:34:21 PM Interpretation: Performing Lab:[facility], [address] [place] [phone] Notes/Report: Sodium 134 135-145 mmol/L Potassium 3.7 [...] ff Reviewed date:12/14/2024 04:01:27 PM Interpretation: Performing Lab:[facility], [address] [place] [phone] Notes/Report: White Blood Count 8.0 4.8-10.8 X10*3/uL [...] INR Reviewed date:12/14/2024 10:28:08 AM Interpretation: Performing Lab:[facility], [address] [place] [phone] Notes/Report: Prothrombin Time 43.8 10.9-12.4 SEC INTERNATIONAL [...] Panel Reviewed date:12/14/2024 10:28:49 AM Interpretation: Performing Lab:[facility], [address] [place] [phone] Notes/Report: Sodium 135 135-145 mmol/L Potassium 3.8 [...] Magnesium Reviewed date:12/15/2024 09:56:55 AM Interpretation: Performing Lab:[address] [address] Notes/Report: Magnesium 1.7 1.6-2.6 mg/dL Troponin-I High Sensitivity Reviewed date:12/14/2024 10:27:17 AM Interpretation: Performing Lab:[address] [phone] Notes/Report: Troponin-I High Sensitivity 43.6 <3.5-35.0 ng/L The Rahman high sensitivity Troponin-I results should be used in conjunction with other diagnostic information such as ECG, clinical observations and information, and patient symptoms to aid in the diagnosis of [place]. B Type Natriuretic Peptide Reviewed date:12/15/2024 09:57:05 AM Interpretation: Performing Lab:[facility], [address] [place] [phone] Notes/Report: B Type Natriuretic Peptide 1238 <100 pg/mL UA ClnCatch+Micro w/rflx Cul t Reviewed date:12/14/2024 03:55:16 PM Interpretation: Performing Lab:[address] [address] Notes/Report: [id number] Urine, Clean Catch Color Urine Yellow Appearance Urine Clear PH 5.5 5.0-9.0 Glucose Urine UA >=1000 Negative mg/dL Urine Blood Negative Negative Specific [place] - Urine 1.020 1.005-1.025 Urine Protein Negative Neg-Trace mg/dL Urine Ketones Negative Negative mg/dL Nitrite Urine Negative Negative Leukocyte Esterase Urine Negative Negative RBC Urine 0-2 0-2 /HPF WBC Urine 0-5 0-5 /HPF Squamous Epithelial Cell Urine 0-2 0-2 /HPF Bacteria Urine None Seen None Seen Hyaline Casts Urine 0-2 0-2 /LPF XR chest 1V Reviewed date:12/14/2024 10:25:20 AM Interpretation: Performing Lab: Notes/Report: [address] [address] XRay Report Signed Patient: Steven Tiwari MR#: [id number] : 1945 Acct:[id number] Age/Sex: 79 / M ADM Date: 12/13/24 Loc: .ED Attending Dr: Ordering Physician: Madi Benedict MD Date of Service: 12/14/24 Procedure(s): XR chest 1V Accession Number(s): [id number] cc: Yonathan Womack MD; Madi Benedict MD [...] in OV> 12/14/24436 DD/ 5 TD/TT: 12/14/24435 [employer] Contractor: [place] [address] XRay Report Signed Patient: Steven Tiwari MR#: [id number] : 1945 Acct:[id number] Age/Sex: 79 / M ADM Date: 12/13/24 Loc: .ED Attending Dr: Ordering Physician: Madi Benedict MD Date of Service: 12/14/24 Procedure(s): XR ro[address] st 1V Accession Number(s): [id number] cc: Yonathan Womack MD; Madi Benedict MD [...] in OV> 12/14/24436 DD/ 5 TD/TT: 12/14/24435 [employer]or: Complete Blood Count Auto Di ff Reviewed date:12/15/2024 10:00:16 AM Interpretation: Performing Lab:[facility], [address] [place] [phone] Notes/Report: White Blood Count 8.9 4.8-10.8 X10*3/uL [...] Panel Reviewed date:12/15/2024 09:56:46 AM Interpretation: Performing Lab:[facility], [address] [place] [phone] Notes/Report: Sodium 134 135-145 mmol/L Potassium 3.5 [...] Sensitivity Reviewed date:12/15/2024 09:56:22 AM Interpretation: Performing Lab:[facility], [address] [place] [phone] Notes/Report: Troponin-I High Sensitivity 55.1 <3.5-35.0 ng/L The Rahman high sensitivity Troponin-I results should be used in conjunction with other diagnostic information such as ECG, clinical observations and information, and patient symptoms to aid in the diagnosis of TN. XR chest 1V Reviewed date:12/15/2024 09:52:59 AM Interpretation: Performing Lab: Notes/Report: [address] [place] [address] XRay Report Signed Patient: Steven Tiwari MR#: [id number] : 1945 Acct:[id number] Age/Sex: 79 / M ADM Date: 12/14/24 Loc: .ED Attending Dr: Ordering Physician: Dillon Galvan MD Date of Service: 12/14/24 Procedure(s): XR chest 1V Accession Number(s): [id number] cc: Yonathan Womack MD; Dillon Galvan MD [...] in OV> 12/14/242213 DD/ 12 TD/TT: 12/14/242212 [employer]wall Contractor: [place] [address] XRay Report Signed Patient: Steven Tiwari MR#: [id number] : 1945 Acct:[id number] Age/Sex: 79 / M ADM Date: 12/14/24 Loc: .ED Attending Dr: Ordering Physician: Dillon Galvan MD Date of Service: 12/14/24 Procedure(s): XR robin st 1V Accession Number(s): [id number] cc: Yonathan Womack MD; Dillon Galvan MD [...] in OV> 12/14/242213 DD/ 12 TD/TT: 12/14/242212 Drywall Contractor: Prothrombin Time INR Reviewed date:12/15/2024 09:52:31 AM Interpretation: Performing Lab:[facility], [address] [place] [phone] Notes/Report: Prothrombin Time 45.3 10.9-12.4 SEC INTERNATIONAL [...] Peptide Reviewed date:12/15/2024 09:52:22 AM Interpretation: Performing Lab:[facility], [address] [place] [phone] Notes/Report: B Type Natriuretic Peptide 998 <100 pg/mL Troponin-I High Sensitivity Reviewed date:12/15/2024 09:52:10 AM Interpretation: Performing Lab:[address] [phone] Notes/Report: Troponin-I High Sensitivity 83.6 <3.5-35.0 ng/L The Rahman high sensitivity Troponin-I results should be used in conjunction with other diagnostic information such as ECG, clinical observations and information, and patient symptoms to aid in the diagnosis of TN. Prothrombin Time INR Reviewed date:12/16/2024 01:57:17 PM Interpretation: Performing Lab:[facility], [address] [place] [phone] Notes/Report: Prothrombin Time 35.3 10.9-12.4 SEC INTERNATIONAL [...] Blood Reviewed date:12/16/2024 01:57:55 PM Interpretation: Performing Lab:[address] [phone] Notes/Report: Glucose, Whole Blood 118 60-115 mg/dL METER # : [id number] Complete Blood Count no Diff Reviewed date:12/16/2024 01:58:43 PM Interpretation: Performing Lab:[facility], [address] [place] [phone] Notes/Report: White Blood Count 9.6 4.8-10.8 X10*3/uL [...] INR Reviewed date:12/16/2024 01:57:33 PM Interpretation: Performing Lab:[address] [phone] Notes/Report: Prothrombin Time 31.0 10.9-12.4 SEC INTERNATIONAL [...] Panel Reviewed date:12/16/2024 01:56:18 PM Interpretation: Performing Lab:[facility], [address] [place] [phone] Notes/Report: Sodium 135 135-145 mmol/L Potassium 3.3 [...] INR Reviewed date:12/16/2024 01:57:26 PM Interpretation: Performing Lab:[facility], [address] [place] [phone] Notes/Report: Prothrombin Time 31.1 10.9-12.4 SEC INTERNATIONAL [...] ff Reviewed date:12/18/2024 12:41:15 PM Interpretation: Performing Lab:[facility], [address] [place] [phone] Notes/Report: White Blood Count 7.9 4.8-10.8 X10*3/uL [...] Panel Reviewed date:12/18/2024 12:57:54 PM Interpretation: Performing Lab:[facility], [address] [place] [phone] Notes/Report: Sodium 137 135-145 mmol/L Potassium 3.4 [...] Sensitivity Reviewed date:12/18/2024 09:01:42 AM Interpretation: Performing Lab:[facility], [address] [place] [phone] Notes/Report: Troponin-I High Sensitivity 40.4 <3.5-35.0 ng/L The Rahman high sensitivity Troponin-I results should be used in conjunction with other diagnostic information such as ECG, clinical observations and information, and patient symptoms to aid in the diagnosis of [place]. B Type Natriuretic Peptide Reviewed date:12/18/2024 09:02:28 AM Interpretation: Performing Lab:[facility], [address] [place] [phone] Notes/Report: B Type Natriuretic Peptide 811 <100 [...] Provider Speciality Internal edicine Referred Provider Simone Msea Referred Provider Specialty Surgery General Notes Otilia [...] [facility] FOR PT BEGINNING 11/07 SHERINE AT [phone] #2 IF ANY QUESTIONS Referral Priority Routine [...] [place] 12/20/2024 09:57:31 AM >REFERRAL FAXED TO [facility] FOR NEW PATIENT Avtar BELLAMY Annette 12/24/2024 09:44:40 AM >spoke with patient no need for this referral. 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 Moody Referral Priority Routine Medications Medication SIG (Take, [...] W/U Status Risk Notes Problem Panic attack (858902451) Panic attack (300.01) Active confirmed Problem Cardiomyopathy (72198195) Cardiomyopathy (425.4) Active confirmed Problem 564909378 Unspecified asth ma, uncomplicated (J45.909) Active confirmed Problem 60345693 Restless leg syn drome (G25.81) Active confirmed Problem Carotid artery disease (043994372) Carotid artery disease (I77.9) Active confirmed Problem 39711193 Vitamin D defici ency (E55.9) Active confirmed Problem 72851713 Anxiety (F41.9) Active confirmed Problem Hypomagnesemia (589470296) Hypomagnesemia (E83.42) Active confirmed Problem 15111107 Other chronic pa in (G89.29) Active confirmed Problem Acute on chronic systolic (congestive) heart failure (I50.23) Active confirmed Problem 6767086 Diverticulitis o f large intestine without perforation or abscess with bleeding (K57.33) Active confirmed Problem 072058219 Prostate cancer (C61) Active confirme d Problem 7415125 Prediabetes (R73.09) Active confirmed Problem 294955951 Low HDL (under 4 0) (E78.6) Active confirmed Problem 91407418 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) Active confirmed Problem 594296109 Cervical disc di sease (M50.90) Active confirmed Problem 63621037 Intrinsic eczema (L20.84) Active confirmed Problem 489617510 Gall stones (K80.20) Active confirmed Problem 640732524 History of prost ate cancer (Z85.46) Active confirmed Problem 876834237 Kidney mass (N28.89) Active confirmed Problem 92381762 Dysthymia (F34.1) Active confirmed Problem 349442094 Anticoagulant long-term use (Z79.01) Active confirmed Problem 626839743 Nonalcoholic hepatosteatosis (K76.0) Active confirmed Problem 611391977 History of myoca rdial infarction (I25.2) Active confirmed Problem 78957639 Reflux gastritis (K29.60) Active confirmed Problem 02474746 Sleep apnea, unspecified type (G47.30) Active confirmed Problem 313080111 Acute on chronic systolic congestive heart failure (I50.23) Active confirmed Problem 047403650 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) Active confirmed Problem 061416123 Benign prostatic hyperplasia with lower urinary tract symptoms (N40.1) Active confirmed Problem 067879511 Pure hypercholesterolemia (E78.00) Active confirmed Problem Abnormal gait (28103356) Abnormal gait (R26.9) Active confirmed Problem 1849048 Low calcium leve ls (E83.51) Active confirmed Problem 040407484 Abnormal CT scan , kidney (R93.429) Active confirmed Problem 083239706 On bridging jing tment with lovenox (Z79.01) Active confirmed Problem 241157765 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) Active confirmed Problem 479189659 Atrial fibrillat ion, chronic (I48.20) Active confirmed Problem 645410031 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 Vital Signs Blood pressure diastolic 58 mm Hg 12/20/2024 akyli ght is down 4 pounds since 10-25-24 [...] Yonathan Womack MD [address] [place] [id number] 09/17/2024 Yonathan Womack Blood tests for rout ine general physical examination Z00.00 ; Prediabetes R73.09 ; Pure hypercholesterolemia E78.00 ; Prostate cancer C61 ; Vitamin D deficiency E55.9 and Acute on chronic systolic congestive heart failure I50.23 Yonathan Womack MD [address] [place] [id number] 01/19/2024 Yonathan Womack Synovial cyst of lef t popliteal space M71.22 and Acute on chronic systolic congestive heart failure I50.23 Yonathan Womack MD [address] [place] [id number] 02/21/2024 Yonathan Womack Pain in left knee M2 5.562 and Other chronic pain G89.29 Yonathan Womack MD [address] [place] [id number] 05/21/2024 Yonathan Womack Acute on chronic sys tolic congestive heart failure I50.23 Yonathan Womack MD [address] [place] [id number] 06/25/2024 Yonathan Womack Right upper quadrant pain R10.11 Yonathan Womack MD [address] [place] [address] [id number] 07/26/2024 Yonathan Womack Acute on chronic sys tolic congestive heart failure I50.23 Yonathan Womack MD [address] [place] [id number] 09/21/2024 Yonathan Womack Elevated BUN R79.9 ; Annual physical exam Z00.00 ; Nonalcoholic hepatosteatosis K76.0 ; Prediabetes R73.09 ; Atrial fibrillation, chronic I48.20 ; Anticoagulant long-term use Z79.01 ; Acute on chronic systolic congestive heart failure I50.23 ; Reflux gastritis K29.60 and Depression screening Z13.31 Yonathan Womack MD [address] [place] [address] [id number] 10/25/2024 Yonathan Womack Shoulder pain M25.51 9 and Abnormal gait R26.9 Yonathan Womack MD [address] [place] [address] [id number] 12/20/2024 Yonathan Womack Acute on chronic sys tolic congestive heart failure I50.23 ; Atrial fibrillation, chronic I48.20 and Anticoagulant long-term use Z79.01 Yonathan Womack MD [address] [place] [address] [id number] 11/05/2024 Yonathan Womack MD [address] [place] [address] [id number] 01/24/2024 Yonathan Womack MD [address] [place] [address] [id number] 03/26/2024 Yonathan Womack MD [address] [place] [address] [id number] 04/10/2024 Yonathan Womack MD [address] [place] [address] [id number] 04/26/2024 Yonathan Womack MD [address] [place] [address] [id number] 05/03/2024 Yonathan Womack MD [address] [place] [address] [id number] 07/24/2024 Yonathan Womack MD [address] [place] [address] [id number] 09/04/2024 Yonathan Womack MD [address] [place] [address] [id number] 10/15/2024 Yonathan Womack MD [address] [place] [address] [id number] 10/16/2024 Yonathan Womack MD [address] [place], [place] [id number] 12/13/2024 Yonathan Womack MD [address] [place], [place] [id number] 12/17/2024 Yonathan Womack Assessments Encounter Date Diagnosis [...] - M25.562) needs wheelchair. is getting [facility]. also needs medline 300 which is a pad because he doesn't have control of urine/ make referral to [facility] 02/21/2024 Other chronic pain (ICD-10 - [...] and he is going to go to [facility] to see what need to be done [...] (ICD-1 0 - R26.9) needs physical therapy 12/20/2024 Acute on chronic systolic congestive heart failure (ICD-10 - I50.23) send referral to dr clayton 09/17/2024 Prediabetes (ICD-10 - R73.09) 09/21/2024 Nonalcoholic hepatosteatosis (ICD-10 - K76.0) good lft's, will contonue to monitor 12/20/2024 Atrial fibrillation, chronic (ICD-10 - I48.20) seems to be in sinus today 09/17/2024 Pure hypercholesterolemia (ICD-10 - E78.00) 09/21/2024 Prediabetes (ICD-10 - R73.09) good a1c, no need for medication at this time 12/20/2024 Anticoagulant long-term use (ICD-10 - Z79.01) followed by [facility] 09/17/2024 Prostate cancer (ICD-10 - C61) 09/21/2024 [...] (EKG) 05/26/2017 MRI CERVICAL SPINE NO CONTRAST NUC WHOLE BODY SCAN BONE 09/14/2019 US ABD 01/23/2021 US ABD 09/20/2023 CT chest wo con 04/22/2022 NM bone scan whole body 12/30/2022 US abdomen complete 03/12/2021 US abdomen complete 02/11/2022 Future Test Test Name Order Date US RENAL BILATERAL 10/20/2024 Next Appt Details Provider Name:Yonathan Munguiazo mendoza, 01/10/2025 10:15:00 AM, [address] [place] [address], [address], [phone], Provider Name:Yonathan Carmela Maxim mendoza, 01/10/2025 10:15:00 AM, [address] [place] [address], [address], [phone], Provider Name:Yonathan Casey Maxim carmichaelr, 03/21/2025 07:00:00 AM, [address] [place] [address], [address], [phone], Provider Name:Yonathan Carmela Maxim carmichaelr, 09/17/2025 07:45:00 AM, [address] [place] [address], [address], [phone], Provider Name:Yonathan Munguiazo carmichaelr, 09/24/2025 01:00:00 PM, [address] [place] [address], [address], [phone], Insurance Providers Payer Name Payer Address Payer Phone Subscriber Number Group Number Insured Name Patient Relationship to Insured Coverage Start Date Coverage End Date [employer] PLAN [facility] [address] [place] [phone] [id number] STEVEN TIWARI Self - patient is the insured [id number] KIM STEVEN Self - patient is the insured Medical (General) History Medical History History ICD Code cerebrovascular accident 2006 refuses a stress test due to adverse yenny nt in the past. 05/30/2013 - colonoscopy due in 3 years. refuses to have another 2016
--- OUTSIDE RECORDS SUMMARY | 2024-12-28 09:50 | XMS_ITS | Encounter Summary ---
Author Organization [facility] Address [address] [place] [address] Care Team Providers Care Pbx Inspector Name Role Phone Yonathan Womack MD Primary Care Provider [phone] Reason for Visit * Reason Onset Date Comments Other 12/13/2024 Encounter Details Date Type Department Care Team (Late st Contact Info) Description 12/13/2024 Telephone [facility] Cardiology [address] [place] [phone] Eddie Granados MD [address] [place] [address] [address] [place] [address] Other Social History Tobacco Use Types Packs/Day [...] AM EDT I have sent all the [facility] records that I received to Tabby [...] pls try the pt later today?? Reviewed [facility] d/c summary Started on jardiance and [...] stay on? I did request records from [facility] I called and spoke with the [...] 12/31/2024 11:30 AM EDT Office Visit [facility] [place] [address] Michaela Anguiano NP [address] [place] [address] [place] [address] 01/24/2025 9:10 AM EDT Office Visit [facility] [place] [address] Michaela Anguiano NP [address] [place] [address] [place] [address] documented as of this encounter Visit Diagnoses [...] 12/20/2024 added in this encounter Care Teams Pbx Inspector Relationship Specialty Start Date End Date Yonathan Womack MD [address] [place] [address] [place] [address] PCP - General 12/26/12 documented as of this encounter
--- OUTSIDE RECORDS SUMMARY | 2024-12-28 09:50 | XMS_ITS | Encounter Summary ---
Author Organization [facility] Address [address] [place] [address] Care Team Providers Care [employer] Teacher Name Role Phone Yonathan Womack MD Primary Care Provider [phone] Encounter Details Date Type Department Care Team (Late st Contact Info) Description 12/23/2024 Telephone [facility] [address] [place] [address] [place] [phone] Cristian Zamarripa NP [address] [place] [address] [address] [place] [address] Social History Tobacco Use Types Packs/Day Years [...] Description 12/31/2024 11:30 AM EDT Office Visit [address] [place] [address] Michaela Anguiano NP [address] [place] [address] Dr [address] [place] [address] 01/24/2025 9:10 AM EDT Office Visit [address] [place] [address] Michaela Anguiano NP [address] [place] [address] Dr [address] [place] [address] documented as of this encounter Visit Diagnoses Not on filedocumented in this encounter Care Teams [employer] Teacher Relationship Specialty Start Date End Date Yonathan Womack MD [address] [place] [address] Drive [address] [place] [address] PCP - General 12/26/12 documented as of this encounter
--- OUTSIDE RECORDS SUMMARY | 2024-12-28 09:50 | XMS_ITS ---
Author Organization Yonathan Womack MD Address [address] [place] [phone] Care Team Providers Care Scientific Manager Name Role Phone Yonathan Womack Primary Care Provider [phone] Medications Medication SIG (Take, Route, Fr equency, Duration) Notes Start Date End Date Status Ondansetron 4 MG 1 tablet on the tong ue and allow to dissolve Orally twice a day for 5 days 12/17/2024 Active Encounters Encounter Location Date Provider Diagnosis Yonathan Womack MD [address] [facility] [address] [place] [phone] 12/17/2024 Yonathan Womack Plan Of Treatment Medication Medication Name Sig Start Date Stop Date Notes Ondansetron 4 MG 1 tablet on the tong ue and allow to dissolve Orally twice a day for 5 days 12/17/2024 Next Appt Details Provider Name:Yonathan mendoza, 01/10/2025 10:15:00 AM, [address] [place] [address], Suite [facility], [place], [place], [phone], Provider Name:Yonathan mendoza, 01/10/2025 10:15:00 AM, [address], [address], [place], [phone], Provider Name:Yonathan Pan ier, 03/21/2025 07:00:00 AM, [address] [place] [address], [address], [place], [phone], Provider Name:Yonathan Pan ier, 09/17/2025 07:45:00 AM, [address] [place] [address] Drive, [address], [place], [phone], Provider Name:Yonathan Pan ier, 09/24/2025 01:00:00 PM, [address] [place] [address], Suite [facility], [place], [phone], Progress Notes * STEVEN NUNEZDOB: [birth year] (79 yo M)Acc No.[id number]:12/17/2024 Patient:?STEVEN NUNEZ :1945???Age:79 Y???Sex:Male Address:[address] [place] [address], [address] * Refills? Start Ondansetron Tablet Disintegrating, 4 MG, Orally, 10 Tablet, 1 tablet on the tongue and allow to dissolve, twice a day, 5 days * true * Date:? Generated for Douglas whitehead/Galina/eTransmitting on:?12/28/2024 09:50 AM EDT
--- OUTSIDE RECORDS SUMMARY | 2024-12-28 09:51 | XMS_ITS | Clinical Summary ---
Author Organization [address] [place] [address] [place] [phone] Phone Care Team Providers Care Comp Field Case Manager Name Role Phone Yonathan Womack MD Primary Care Provider [phone] Allergies Active Allergy Reactions Criticality Noted Date Comments Adenosine High 05/26/2021 Erythromycin Stearate 05/26/2021 Iodinated Contrast Media 05/26/2021 Empagliflozin Other High 12/24/2024 Throat swelling Medications CALCIUM-VITAMIN D3-MAGNESIUM ORAL Take 1 tablet [...] Do not change dietary habits. Managed by [facility]. Active metoprolol succinate (TOPROL-XL) 50 mg 24 hr tabletIndication s:Paroxysmal atrial fibrillation (CMS/HCC V24, CMS/HCC V28) Take 1 tablet (50 mg total) by mouth 1 (one) time each day. Do not crush or chew. 90 each 3 11/30/19 25 026 Active furosemide (LASIX) 20 mg tablet Take 2 tablets (40 mg total) by mouth 2 (two) times a day. 180 tablet 3 12/25/19 25 Active spironolactone (ALDACTONE) 25 mg tablet Take 1 tablet (25 mg total) by mouth 1 (one) time each day. 90 tablet 1 12/26/19 25 Active furosemide (LASIX) 20 mg tablet [...] day in the morning. 025 Discontinued(Re order) furosemide (LASIX) 20 mg tablet Take 2 tablets (40 mg total) by mouth 2 (two) times a day. 180 tablet 3 12/15/19 25 025 Discontinued(Re order) empagliflozin (Jardiance) 10 mg tablet Take 1 tablet (10 mg total) by mouth 1 (one) time each day in the morning. 90 tablet 1 12/21/19 25 025 Discontinued spironolactone (ALDACTONE) 25 mg tablet Take 0.5 tablets (12.5 mg total) by mouth 1 (one) time each day. 45 tablet 1 12/21/19 25 025 Discontinued empagliflozin (Jardiance) 10 mg tablet Take 1 tablet (10 mg total) by mouth 1 (one) time each day in the morning. 90 tablet 1 12/21/19 25 025 Discontinued(Pr escriber Discontinued) spironolactone (ALDACTONE) 25 mg tablet Take 0.5 [...] he said he would go to the [facility] ER from our office. He has a ride and will not be driving PVD (peripheral vascular disease) ([facility] V24) 08/09/2023 Overview (06/07/2024): Last Assessment & Plan: History of peripheral vascular disease with known carotid stenosis. HFrEF (heart failure with re duced ejection fraction) ([facility] V24, [facility] V28) 01/06/2023 Assessment & Plan (12/21/2024 12:00 [...] History of atrial fibrillation with stroke. High [id number] score remains chronically anticoagulated Assessment & Plan (12/21/2024 12:00 AM EDT): Patient has history of chronic atrial fibrillation which is adequately rate controlled on his present dose of metropolol. He continues on warfarin for anticoagulation denies any excessive bleeding or bruising. His [id number] score is 7 representing 11.2% risk for thromboembolism. He will require ongoing anticoagulation. Assessment & Plan (07/30/2024 8:19 AM EST): Orders: ECG 12 lead Coronary arteriosclerosis in jena artery 05/26 Overview (06/07/2024): Last Assessment & [...] 2 visits to the emergency room at [facility] for chest pain both times he [...] Encounters Date Type Department Care Team Description 12/25/2024 Telephone [facility] [address] [facility] [address] [place] [address] Michaela Anguiano NP 12/24/2024 Telephone [facility] [address] [facility] [address] [place] [address] Michaela Anguiano NP Medication Problem; Med Refill 12/23/2024 Telephone [facility] [address] [place] [address] Cristian Zamarripa NP 12/20/2024 11:30 AM EDT Office Visit [facility] [address] [place] [address] Michaela Anguiano NP HFrEF (heart failure with reduced ejection fraction) (CMS/HCC V24, CMS/HCC V28) (Primary Dx); Atrial fibrillation, unspecified type (CMS/HCC V24, CMS/HCC V28); Coronary arteriosclerosis in jena artery; Mixed hyperlipidemia 12/20/2024 Telephone [facility] [address] [place] [address] Michaela Anguiano NP Med Refill 12/18/2024 Telephone [facility] [address] [place] [address] Ramin Parekh MD furosemide dosage ? ([facility]) 12/13/2024 Telephone [facility] [address] [place] [address] Sin Farfan MD 12/13/2024 Telephone [facility] [address] [place] [address] Eddie Granados MD Other 12/05/2024 Telephone [facility] [address] [place] [address] Eddie Granados MD Weight Gain; irregular heart rate 11/29/2024 Telephone [facility] [address] [place] [address] Eddie Granados MD Med Refill (Metoprolol) 11/19/2024 Telephone [facility] - [address] [place] [phone] Simone Cantrell MD Medication 11/19/2024 Telephone [facility] [address] [place] [address] Eddie Granados MD high pulse (High pulse ) 10/11/[address]24 [address] [facility] [address] [facility] [facility] [address] [place] [address] Eddie Granados MD Med Refill (Furosemide, Sprinolactone ) from Last 3 Months Medical History Medical History Date Comments CVA (cerebral vascular accid ent) ([facility] V24, [facility] V28) DX:CVA (cerebral vascular ac cident) ([facility]) Chronic ischemic heart disease D [...] Description 12/31/2024 11:30 AM EDT Office Visit [facility] [address] [place] [address] Michaela Anguiano NP [address] [place] [address] Dr [address] [place] [address] 01/24/2025 9:10 AM EDT Office Visit [facility] [address] [place] [address] Michaela Anguiano NP [address] [place] [address] Dr [address] [place] [address] Health Maintenance Due Date Last Done Comments [...] 12:00 AM EDT Atrial fibrillation, unspecified type (CMS/[facility] V24, CMS/HCC V28) from Last 3 Months Results * ECG 12 lead (12/21/2024 12:00 AM EDT) 12/20/2024 11:4 2 AM EDT us Michaela Anguiano SECURITY SHIFT MANAGER ECG ORDERABLES Final Result GEMUSE from Last 3 Months Insurance [employer] [place] Care Teams Comp Field Case Manager Relationship Specialty Start Date End Date Yonathan Womack MD [address] [place], [place] [phone] PCP - General 12/26/12
--- OUTSIDE RECORDS SUMMARY | 2024-12-28 09:51 | XMS_ITS ---
Author Organization Yonathan Womack MD Address [address] [place] [phone] Care Team Providers Care Assembler Musical Instruments Name Role Phone Yonathan Womack Primary Care Provider Allergies Allergen (clinical drug ingredient) Drug/Non Drug Allergy documented on EMR Reaction Allergy Type Onset Date Status gadolinium (uncoded) red eues Allergy Active Adedison (uncoded) Elevated BP Allergy Active erythromycin Erythromyicin (uncoded) GI Upset Allergy Active erythromycin Ilisone (uncoded) GI Upset Allergy Active IVPDye (uncoded) Convulsion Allergy Ac tive REASON FOR VISIT 3 MO F/U Encounters Encounter Location Date Provider Diagnosis Yonathan Womack MD [address] [place] [phone] 12/28/2024 Yonathan Womack Plan Of Treatment Next Appt Details Provider Name:Yonathan mendoza, 01/10/2025 10:15:00 AM, [address], [place], [place], [phone], Provider Name:Yonathan mendoza, 01/10/2025 10:15:00 AM, [address], [address], [place], [place], [phone], Provider Name:Yonathan Pan reji, 03/21/2025 07:00:00 AM, [address], [address], [place], [phone], Provider Name:Yonathan Pan reji, 09/17/2025 07:45:00 AM, [address], [address], [place], [phone], Provider Name:Yonathan Pan janyr, 09/24/2025 01:00:00 PM, [address], [address], [place], [phone], Progress Notes * STEVEN NUNEZDOB: [birth year] (79 yo M)Acc No.[id number]:12/28/2024 Progress Notes Patient:?STEVEN NUNEZ Provider:?Yonathan Womack MD :1945???Age:79 Y???Sex:Male Jr e:12/28/2024 Address:[address] [place], [place] [phone] Subjective: * Chief Complaints: * ???1. 3 MO F/U. * ROS:?General/Constitutional:?Denies?Chills.?Denies?Fatigue.?Denies?Fever.?Denies?Headache.?ENT:?Denies?Sore throat.?Respiratory:?Denies?Cough.?Denies?Shortness of breath at rest.?Denies?Shortness of breath with exertion.?Gastrointestinal:?Denies?Diarrhea.?Denies?Nausea.? * Medical History:?Cerebrovasc ular accident 2006, Refuses a stress test due to adverse event in the past., 05/30/2013 - colonoscopy due in 3 years. refuses to have another 2016. * Allergies:?IVPDye: Convulsio n, Ilisone: GI Upset, Erythromyicin: GI Upset, Adedison: Elevated BP, gadolinium: red eues. Objective: * Vitals:? Assessment: Plan: * Treatment: * * The named appointment provid er may or may not be the originator of this progress note, and it is not deemed complete until electronically signed by the appointment provider. Sign off status: Pending * Provider:?Yonathan Womack MD Date:?0 12/28/2024 Generated for Douglas whitehead/Galina/Justinransmitting on:?12/28/2024 09:50 AM EDT
--- OUTSIDE RECORDS SUMMARY | 2024-12-28 09:51 | XMS_ITS | Encounter Summary ---
Author Organization [facility] [place] [facility] Address [address] [place] [address] Care Team Providers Care Watch Leader Name Role Phone Yonathan Womack MD Primary Care Provider Encounter Details Date Type Department Care Team (Late st Contact Info) Description 12/13/2024 Telephone [facility] [address] [place] [phone] Sin Farfan MD [address] [place] [address] Social History Tobacco Use Types Packs/Day Years [...] Description 12/31/2024 11:30 AM EDT Office Visit [facility] [address] [place] [address] [address] [place] [address] Michaela Anguiano NP [address] [place] [address] Dr [address] [place] [address] 01/24/2025 9:10 AM EDT Office Visit [address] [place] [address] Michaela Anguiano NP [address] [place] [address] Dr [address] [place] [address] documented as of this encounter Visit Diagnoses Not on filedocumented in this encounter Care Teams Watch Leader Relationship Specialty Start Date End Date Yonathan Womack MD [address] [place] [address] Drive [address] [place] [address] PCP - General 12/26/12 documented as of this encounter
[2024-12-28 11:02] LABS: Anion Gap 11 (12-20); Blood Urea Nitrogen 23 mg/dL (9-16); Calcium 9.3 mg/dL (8.4-10.2); Carbon Dioxide 27 mmol/L (22-29); Chloride 100 mmol/L (96-108); Estimated Glomerular Filt Rate 60; Glucose Random 120 mg/dL (60-115); Potassium 3.1 mmol/L (3.3-5.1); Sodium 135 mmol/L (135-145)
== END 2024-12-28 09:32 | disposition home or self-care (01) ==
LOC: HO.LAB 09:31
PROVIDERS: Visit Provider Nurse Practitioner
DX: I50.20 Unspecified systolic (congestive) heart failure (principal)
CPT/HCPCS: 36415; 80048

== ENCOUNTER 2025-01-10 11:41 | Outpatient (REF) | payer MEDICARE, MEDICAID, SELFPAY ==
[2025-01-10 11:59] LABS: Anion Gap 14 (12-20); Blood Urea Nitrogen 24 mg/dL (9-16); Calcium 9.5 mg/dL (8.4-10.2); Carbon Dioxide 29 mmol/L (22-29); Chloride 99 mmol/L (96-108); Estimated Glomerular Filt Rate > 60; Glucose Random 124 mg/dL (60-115); Sodium 138 mmol/L (135-145)
--- OUTSIDE RECORDS SUMMARY | 2025-01-10 12:15 | XMS_ITS ---
Author Organization Yonathan Womack MD Address [address] [place] [phone] Care Team Providers Care Corporate Scheduler Name Role Phone Shanta Yonathan Primary Care [...] Date End Date Status Furosemide 20 MG 2 tabs twice a day Orally twice a day Active LORazepam 0.5 MG TAKE 1 TABLET BY CASSIUS TH EVERY DAY NEEDED Orally Once a day for 30 days 12/31/2024 Active Metoprolol Succinate 50 MG 1 capsule Ora lly Once a day Active Warfarin Sodium 2.5 MG TAKE 3 TABLETS BY MOUTH 6 DAYS A WEEK AND 2 TABLETS BY MOUTH 1 DAY A WEEK Active Entresto 24-26 MG 1 tablet Orally Twic e a day Active Simvastatin 40 MG TAKE 1/2 TABLET BY MOUTH EVERY EVENING Active FreeStyle Lite Test - TEST BLOOD SUGAR O NCE EVERY DAY for 50 Active FreeStyle Lancets - USE TO CHECK BLOOD SUGAR ONCE A DAY for 90 Active Omeprazole 20 MG TAKE 1 CAPSULE BY MOUTH EVERY DAY 30 MINUTES BEFORE BREAKFAST Active Ondansetron 4 MG 1 tablet on the tong ue and allow to dissolve Orally twice a day for 5 days 12/17/2024 Active Imodium A-D 2 MG 1 tablet [...] kg/m2 01/10/2025 weight is down 5 pounds [facility] 12-20-24 Encounters Encounter Location Date Provider Diagnosis Yonathan Womack MD [address] [place], [place] [phone] 01/10/2025 Yonathan Womack Acute on chronic systolic [...] - N18.9) had bun and cr drawn today Plan Of Treatment Treatment Notes Assessment Notes Acute on chronic systolic co ngestive heart failure has been in and out of the hospital a month ago Atrial fibrillation, chronic has stabili zed CKD (chronic kidney disease) had bun and cr drawn today Next Appt Details Follow Up: 2 Months, Reason: Provider Name:Yonathan mendoza, 03/21/2025 07:00:00 AM, [address] [place] [address], [address], [phone], Provider Name:Yonathan mendoza, 04/02/2025 01:45:00 PM, [address] [place] [address], [address] [place] [address], [phone], Provider Name:Yonathan mendoza, 09/17/2025 07:45:00 AM, [address] [place] [address], [address], [phone], Provider Name:Yonathan mendoza, 09/24/2025 01:00:00 PM, [address] [place] [address], [address], [phone], Progress Notes * STEVEN NUNEZDOB: [birth year] (79 yo M)Acc No.[id number]:01/10/2025 Progress Notes Patient:?STEVEN NUNEZ Provider:?Yonathan Womack MD :1945???Age:79 Y???Sex:Male Jr e:01/10/2025 Address:[address] [place] [address] Subjective: * Chief Complaints: * ???1. 3 WEEK F/U. 2. 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 3. I11.0 Hypertensive heart disease with heart failure. 4. I47.20 VTach, unspecified. 5. 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 6. N18.30 CKD stage 3. * HPI: ???Symptom(s):?patient is a 79 yo male her for 3 week follow up visit/ had been to er 4 times due to chf? and? got iv lasix. * ROS:?General/Constitutional:?Denies?Chills.?Admits?Fatigue.?Denies?Fever.?Denies?Headache.?ENT:?Denies?Sore throat.?Respiratory:?Denies?Cough.?Denies?Shortness of breath at rest.?Denies?Shortness of breath [...] BLOOD SUGAR ONCE A DAY , Taking Omeprazole 20 MG Capsule Delayed Release TAKE 1 CAPSULE BY MOUTH EVERY DAY 30 MINUTES BEFORE BREAKFAST , Taking Ondansetron 4 MG Tablet Disintegrating 1 tablet on the tongue and allow to dissolve Orally twice a day , Taking Metoprolol Succinate 50 MG Capsule ER 24 Hour Sprinkle 1 capsule Orally Once a day , Taking Warfarin Sodium 2.5 MG Tablet TAKE 3 TABLETS BY MOUTH 6 DAYS A WEEK AND 2 TABLETS BY MOUTH 1 DAY A WEEK , Taking Entresto 24-26 MG Tablet 1 tablet Orally Twice a day , Taking Furosemide 20 MG Tablet 2 tabs twice a day Orally twice a day , Taking LORazepam 0.5 MG Tablet TAKE 1 TABLET BY MOUTH EVERY DAY NEEDED Orally Once a day , Not-Taking/PRN Spironolactone 25 MG [...] red eues. Objective: * Vitals:?Ht: 69, Wt: 200, BMI :29.53, BP:108/64, Wt-k.72. weight is down 5 pounds since 12-20-24. * Examination: ???General Examination: ?GENERAL APPEARANCE:?alert, well hydrated, in no distress.?HEAD:?normocephalic.?SKIN:?good turgor.?HEART:?regular rate and rhythm, no murmurs, rubs, gallops.?LUNGS:?clear to auscultation bilaterally.?EXTREMITIES:?no edema.? Assessment: * Assessment: 1.?Acute on chronic systolic congestive heart failure - I50.23 (Primary)???2.?Atrial fibrillation, chronic - I48.20???3.?CKD (chronic kidney disease) - N18.9??? 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 3.?CKD (chronic kidney disea se)? Notes: had bun and cr drawn today?? * Follow Up:?2 Months * * The named appointment provid er may or may not be the originator of this progress note, and it is not deemed complete until electronically signed by the appointment provider. Sign off status: Pending * Provider:?Yonathan Womack MD Date:?0 01/10/2025 Generated for Douglas whitehead/Galina/Madyitting on:?01/10/2025 12:15 PM EDT History and Physical Notes * HPI [...]
--- OUTSIDE RECORDS SUMMARY | 2025-01-10 12:16 | XMS_ITS ---
Author Organization Yonathan Womack MD Address [address] [place] [phone] Care Team Providers Care White Sourer Name Role Phone Yonathan Womack Primary Care Provider REASON FOR VISIT refill Medications Medication SIG (Take, Route, Fr equency, Duration) Notes Start Date End Date Status LORazepam 0.5 MG TAKE 1 TABLET BY CASSIUS TH EVERY DAY NEEDED Orally Once a day for 30 days 12/31/2024 Active Encounters Encounter Location Date Provider Diagnosis Yonathan Womack MD [address] [facility] [address] [place], [place] [phone] 12/31/2024 Yonathan Womack Plan Of Treatment Medication Medication Name Sig Start Date Stop Date Notes LORazepam 0.5 MG TAKE 1 TABLET BY CASSIUS TH EVERY DAY NEEDED Orally Once a day for 30 days 12/31/2024 Next Appt Details Provider Name:Yonathan mendoza, 03/21/2025 07:00:00 AM, [address] [facility], [address] [place] [address], [phone], Provider Name:Yonathan carmichaelr, 04/02/2025 01:45:00 PM, [address], [address], [place], [phone], Provider Name:Yonathan Pan reji, 09/17/2025 07:45:00 AM, [address], [address], [place], [phone], Provider Name:Yonathan Pan janyr, 09/24/2025 01:00:00 PM, [address], [address], [place], [phone], Progress Notes * STEVEN NUNEZDOB: [birth year] (79 yo M)Acc No.[id number]:12/31/2024 Patient:?STEVEN NUNEZ :1945???Age:79 Y???Sex:Male Address:[address] [place] [address], [place] [address] * Refills? Refill LORazepam Tablet, 0.5 MG, Orally, 30, TAKE 1 TABLET BY MOUTH EVERY DAY NEEDED, Once a day, 30 days, Refills=3 * true * Date:? Generated for Douglas whitehead/Galina/Anasmitting on:?01/10/2025 12:15 PM EDT
--- OUTSIDE RECORDS SUMMARY | 2025-01-10 12:16 | XMS_ITS ---
Author Organization Yonathan Womack MD Address [address] [place] [phone] Care Team Providers Care Farm Management Professor Name Role Phone Shanta Yonathan Primary Care Provider REASON FOR VISIT BUN CREATININE Encounters Encounter Location Date Provider Diagnosis Yonathan Womack MD [address] [facility] [address] [place] [phone] 01/10/2025 Yonathan Womack Elevated BUN R79.9 Assessments Encounter Date Diagnosis (ICD Code) Assessment Notes Treatment Notes Treatment Clinical Notes Section Notes 01/10/2025 Elevated BUN (ICD-10 - R79.9) Plan Of Treatment Pending Test Test Name Order Date Blood Urea Nitrogen 01/10/2025 Creatinine 01/10/2025 Next Appt Details Provider Name:Yonathan mendoza, 03/21/2025 07:00:00 AM, [address] [place] [address], [address], [phone], Provider Name:Yonathan mendoza, 04/02/2025 01:45:00 PM, [address] [place] [address], [address], [place], [place], [phone], Provider Name:Yonathan Pan janyr, 09/17/2025 07:45:00 AM, [address], [address], [place], [phone], Provider Name:Yonathan Pan janyr, 09/24/2025 01:00:00 PM, [address], [address], [place], [phone], Progress Notes * STEVEN NUNEZDOB: [birth year] (79 yo M)Acc No.[id number]:01/10/2025 Progress Note Patient:?STEVEN NUNEZ Provider:?Yonathan Womack MD :1945???Age:79 Y???Sex:Male Jr e:01/10/2025 Address:[address] [place] [address] Subjective: * Chief Complaints: * ???1. BUN CREATININE. * Medical History:? Objective: * Vitals:? Assessment: * Assessment: 1.?Elevated BUN - R79.9??? Plan: * Treatment: * Procedure Codes:?65455 VENIP UNCT, ROUTINE* * * The named appointment provid er may or may not be the originator of this progress note, and it is not deemed complete until electronically signed by the appointment provider. Sign off status: Pending * Provider:?Yonathan Womack MD Date:?0 01/10/2025 Generated for Douglas whitehead/Galina/eTransmitting on:?01/10/2025 12:16 PM EDT
--- OUTSIDE RECORDS SUMMARY | 2025-01-10 12:16 | XMS_ITS | Clinical Summary ---
Author Organization [address] [place] [address] [place] [phone] Phone Care Team Providers Care Budget Director Name Role Phone Yonathan Womack MD Primary Care Provider [phone] Allergies Active Allergy Reactions Criticality Noted Date Comments Adenosine High 05/26/2021 Erythromycin Stearate 05/26/2021 Iodinated Contrast Media 05/26/2021 Empagliflozin Other High 12/24/2024 Throat swelling Medications coenzyme Q-10 100 mg capsule Take 1 [...] Do not change dietary habits. Managed by [facility]. Active metoprolol succinate (TOPROL-XL) 50 mg [...] day. 90 tablet 1 12/26/19 25 Active CALCIUM-VITAMIN D3-MAGNESIUM ORAL Take 1 tablet by mouth 1 (one) time each day. 025 Discontinued(Di scontinued by another clinician) furosemide (LASIX) 20 mg tablet Take 2 tablets (40 mg total) by mouth 1 (one) time each day. 180 tablet 2 10/15/19 25 025 Discontinued(Re order) spironolactone (ALDACTONE) 25 mg tablet Take 0.5 tablets (12.5 mg total) by mouth 1 (one) time each day. 45 tablet 2 10/15/19 25 025 Discontinued(Re order) amiodarone (PACERONE) 200 [...] in the morning. 90 tablet 1 12/21/19 025 Discontinued(Pr escriber Discontinued) spironolactone (ALDACTONE) 25 [...] to the [facility] ER from our office. He has a ride and will not be driving PVD (peripheral vascular disease) ([facility] V24) 08/09/2023 Overview (06/07/2024): Last Assessment & Plan: History of peripheral vascular disease with known carotid stenosis. HFrEF (heart failure with re duced ejection fraction) ([facility] V24, [facility] V28) 01/06/2023 Assessment & Plan (12/31/2024 11:58 AM EDT): Patient has history of HFrEF-EF 25-30% on last echocardiogram. Landed detailed above he was in and out of the hospital multiple times over the course of several weeks prior to his last office visit. Since our last visit patient reports that he has been feeling well. He is tolerating spironolactone and he continues on furosemide 40 mg twice daily. He initially lost 5 pounds and then his weight stabilized. He is avoiding dietary sodium and is following the advice that I gave him last visit. Unfortunately he was unable to tolerate Jardiance but he seems to be doing well on spironolactone, Entresto, metoprolol and his present dose of furosemide. He appears euvolemic on physical examination today. We will update an echocardiogram to reassess his cardiac function. At his next office visit we will once again discussed the possibility of AICD if his cardiac function has not improved. For now he is quite satisfied with his current medical regimen and knows to call with any change in his symptoms. I've asked the patient to call if they develop worsening symptoms of heart failure such as increased shortness of breath, new or worsening cough, increased swelling in the legs or ankles, or weight gain of more than 2 pounds in one day or 4 pounds in one week. Assessment & Plan (12/21/2024 12:00 AM EDT): [...] week. Mixed hyperlipidemia 01/06/2023 Assessment & Plan (12/31/2024 11:58 AM EDT): Continue with simvastatin as prescribed. Assessment & Plan (12/21/2024 12:00 AM EDT): Continue with simvastatin as prescribed. Chronic atrial fibrillation (CMS/HCC V24, CMS/HC C V28) 05/26/2021 Assessment & Plan (12/31/2024 11:58 AM EDT): Patient has history of chronic atrial fibrillation which is adequately rate controlled on his present dose of metropolol. He continues on warfarin for anticoagulation denies any excessive bleeding or bruising. His [id number] score is 7 representing 11.2% risk for thromboembolism. He will require ongoing anticoagulation. Assessment & Plan (12/21/2024 12:00 AM EDT): Patient has history of chronic atrial fibrillation which is adequately rate controlled on his present dose of metropolol. He continues on warfarin for anticoagulation denies any excessive bleeding or bruising. His [id number] score is 7 representing 11.2% risk for thromboembolism. He will require ongoing anticoagulation. Assessment & Plan (07/30/2024 8:19 AM EST): Orders: ECG 12 lead Coronary arteriosclerosis in [place] artery 05/26 Assessment & Plan (12/31/2024 11:58 AM EDT): Possible inferior infarct in the [...] routine medical care. Heart valve disorder 05/26/2021 Assessment & Plan (12/31/2024 11:58 AM EDT): Patient has history of mild mitral regurgitation. He is euvolemic on examination today. We will update an echocardiogram. Resolved Problems Problem Noted Date Diagnosed Date Resolved Date Dizzinesses 03/15/2023 12/20/2024 Chest pain 07/06/2022 12/20/2024 Overview (06/07/2024): Last Assessment & Plan: Patient's had 2 visits to the emergency room at [facility] for chest pain both times he was [...] Encounters Date Type Department Care Team Description 01/03/2025 Telephone [facility]iology [facility] [address] [facility] [facility] [address] [place] [phone] Michaela Anguiano NP Labs Only 12/31/2024 11:30 AM EDT Office Visit [facility] [address] [place] [address] Michaela Anguiano NP HFrEF (heart failure with reduced ejection fraction) (CMS/HCC V24, CMS/HCC V28) (Primary Dx); Congestive heart failure, unspecified HF chronicity, unspecified heart failure type (CMS/HCC V24, CMS/HCC V28); Heart valve disorder; Coronary arteriosclerosis in [place] artery; Chronic atrial fibrillation (CMS/HCC V24, CMS/HCC V28); Mixed hyperlipidemia 12/25/2024 Telephone [facility] [address] [place] [address] Michaela Anguiano NP 12/24/2024 Telephone [facility] [address] [place] [address] Michaela Anguiano NP Medication Problem; Med Refill 12/23/2024 Telephone [facility] [address] [place] [address] Cristian Zamarripa NP 12/20/2024 11:30 AM EDT Office Visit [facility] [address] [place] [phone] Michaela Anguiano, MARNIE HFrEF (heart failure with reduced ejection fraction) ([facility] V24, [facility] V28) (Primary Dx); Atrial fibrillation, unspecified type ([facility] V24, [facility] V28); Coronary arteriosclerosis in [place] artery; Mixed hyperlipidemia 12/20/2024 Telephone [facility] [address] [facility] [address] [place] [address] Michaela Anguiano NP Med Refill 12/18/2024 Telephone [facility] [address] [facility] [address] [place] [address] Ramin Parekh MD furosemide dosage ? ([facility]) 12/13/2024 Telephone [facility] [address] [place] [address] Sin Farfan MD 12/13/2024 Telephone [facility] [address] [facility] [address] [place] [address] Eddie Granados MD Other 12/05/2024 Telephone [facility] [address] [place] [address] Eddie Granados MD Weight Gain; irregular heart rate 11/29/2024 Telephone [facility] [address] [place] [address] Eddie Granados MD Med Refill (Metoprolol) 11/19/2024 Telephone [facility] [address] [place] [address] Simone Cantrell MD Medication 11/19/2024 Telephone [facility] [address] [place] [address] Eddie Granados MD high pulse (High pulse ) from Last 3 Months Medical History Medical History Date Comments CVA (cerebral vascular accid ent) ([facility] V24, [facility] V28) DX:CVA (cerebral vascular ac cident) ([facility]) Chronic ischemic heart disease D X:Chronic [...] Sign Reading Time Taken Comments Blood Pressure 120/66 12/31/2024 10:58 AM EDT Pulse 66 12/31/2024 10:58 AM EDT Temperature - - Respiratory Rate - - Oxygen Saturation 97% 12/31/2024 10:58 AM EDT Inhaled Oxygen Concentration - - Weight 90.7 kg (200 lb) 12/31/2024 10:58 AM EDT Height 172.7 cm (5' 8 ) 12/31/2024 10:58 AM EDT Body Mass Index 30.41 12/31/2024 10:58 AM EDT Plan of Treatment Upcoming Encounters Date Type Department Care Team (Late st Contact Info) Description 04/02/2025 11:00 AM EDT Ancillary Procedure [facility] [address] [facility] [address] [place] [address] Health Maintenance Due Date Last Done Comments [...] AM EDT) 12/20/2024 11:4 2 AM EDT Michaela Anguiano 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
--- OUTSIDE RECORDS SUMMARY | 2025-01-10 12:16 | XMS_ITS | Patient Health Record ---
Author Organization Yonathan Womack MD Address [address] [place], [place] [id number] Care Team Providers Care Fire Protection Engineering Technician Name Role Phone Yonathan Womack Primary Care Provider [phone] Allergies Allergen (clinical drug ingredient) Drug/Non Drug [...] ff Reviewed date:09/17/2024 05:23:58 PM Interpretation: Performing Lab:[facility], [address] [place] [phone] Notes/Report: White Blood Count 8.3 4.8-10.8 X10*3/uL [...] NRBC Abs Auto 0.000 0.0-0.012 X10*3/uL Comprehensive [place]. Panel Fa st Reviewed date:09/17/2024 05:21:17 PM Interpretation: Performing Lab:[facility], [address] [place] [address] Notes/Report: Sodium 137 135-145 mmol/L Potassium 4.2 [...] Panel Reviewed date:09/17/2024 05:02:42 PM Interpretation: Performing Lab:[address] [address] Notes/Report: Triglycerides 85 <150 mg/dL Desirable Triglyceride: [...] Total Reviewed date:09/17/2024 05:02:53 PM Interpretation: Performing Lab:[address] [address] Notes/Report: Vitamin D 25-OH Total 66.5 >30 [...] A1c Reviewed date:09/17/2024 05:01:59 PM Interpretation: Performing Lab:[facility], [address] [place] [phone] Notes/Report: Hemoglobin A1c % 5.9 <6.0 % [...] average glucose, using the formula of the E0Y-Sgyhwol Average Glucose study (ADAG), Diabetes Care, Vol.31,#8, Mar. 2007 Complete Blood Count Auto Di ff Reviewed date:01/13/2024 04:12:10 PM Interpretation: Performing Lab:[facility], [address] [place] [phone] Notes/Report: White Blood Count 7.9 4.8-10.8 X10*3/uL [...] INR Reviewed date:01/13/2024 04:05:04 PM Interpretation: Performing Lab:[facility], [address] [place] [address] Notes/Report: Prothrombin Time 23.8 11.1-13.3 SEC INTERNATIONAL [...] Time Reviewed date:01/13/2024 04:04:44 PM Interpretation: Performing Lab:[facility], [address] [place] [address] Notes/Report: Partial Thromboplastin Time 38.4 26.0-36.8 SEC For information regarding the monitoring of direct thrombin inhibitors, please refer to Pharmacy. Liver Panel Reviewed date:01/13/2024 04:05:24 PM Interpretation: Performing Lab:[facility], [address] [place] [address] Notes/Report: Bilirubin Total 0.8 0.0-1.0 mg/dL Bilirubin Direct 0.3 0.0-0.5 mg/dL Aspartate Amino Transferase 18 5-37 U/L Alanine Aminotransferase 16 0-40 U/L Total Protein 6.9 6.5-8.0 g/dL Albumin Level 4.0 3.5-5.0 g/dL Alkaline Phosphatase 72 39-117 U/L Basic Metabolic Panel Reviewed date:01/13/2024 04:06:37 PM Interpretation: Performing Lab:[facility], [address] [place] [phone] Notes/Report: Sodium 138 135-145 mmol/L Potassium 3.8 [...] Glomerular Filt Rate > 60 NOTE: For -Singaporean individuals, multiply the result by 1.210. Chronic Kidney Disease: Estimated GFR < 60 mL/min/1.73m2 Severe Kidney Disease: Estimated GFR < 15 mL/min/1.73m2 Glucose Random 131 60-115 mg/dL Calcium 9.6 8.4-10.2 mg/dL B Type Natriuretic Peptide Reviewed date:01/13/2024 04:04:32 PM Interpretation: Performing Lab:[facility], [address] [place] [phone] Notes/Report: B Type Natriuretic Peptide 246 <100 pg/mL For those patients who are being treated with Natrecor (nesiritide, recombinant BNP), BNP testing should be performed at least two hours post treatment in order to ensure that only endogenous levels of BNP are detected. US venous duplex LE LT Reviewed date:01/16/2024 01:42:02 PM Interpretation: Performing Lab: Notes/Report: [address] [address] Ultrasound Report Signed Patient: Steven Tiwari MR#: [id number] : 1945 Acct:[id number] Age/Sex: 78 / M ADM Date: 01/13/24 Loc: HO.ED Attending Dr: Ordering Physician: Shae Fernandez Date of Service: 01/13/24 Procedure(s): US venous duplex LE LT Accession Number(s): [id number] cc: Yonathan Womack MD; Shae Fernandez EXAMINATION: [...] in OV> 01/13/24 1639 DD/ 1540 TD/TT: Traverse Rod Assembler: [place] [address] Ultrasound Report Signed Patient: Steven Tiwari MR#: [id number] : 1945 Acct:[id number] Age/Sex: 78 / M ADM Date: 01/13/24 Loc: HO.ED Attending Dr: Ordering Physician: Shae Fernandez Date of Service: 01/13/24 Procedure(s): US romeo ous duplex LE LT Accession Number(s): [id number] cc: Yonathan Womack MD; Shae Fernandez EXAMINATION: [...] in OV> 01/13/24 1639 DD/ 1540 TD/TT: Manager Knowledge ist: CB INR WHOLE BLOOD POC Reviewed date:02/02/2024 11:56:26 AM Interpretation: Performing Lab:[facility], [address] [place] [phone] Notes/Report: PT, INR - [facility] 2.0 0.9-1.1 METER #: [id number] INTERNATIONAL NORMALIZED RATIO (INR) REFERENCE RANGES Reference [...] OC Reviewed date:02/02/2024 11:56:57 AM Interpretation: Performing Lab:[facility], [address] [place] [address] Notes/Report: Prothrombin Time Whole Bld POC 24.3 11.1-13.5 sec INR WHOLE BLOOD POC Reviewed date:02/21/2024 12:32:10 PM Interpretation: Performing Lab:[facility], [address] [place] [phone] Notes/Report: PT, INR - [facility]ag Clinic 2.6 0.9-1.1 METER #: [id number] INTERNATIONAL NORMALIZED RATIO (INR) REFERENCE RANGES Reference [...] OC Reviewed date:02/21/2024 12:33:44 PM Interpretation: Performing Lab:[facility], [address] [place] [address] Notes/Report: Prothrombin Time Whole Bld POC 30.9 11.1-13.5 sec INR WHOLE BLOOD POC Reviewed date:03/20/2024 12:25:26 PM Interpretation: Performing Lab:[facility], [address] [place] [address] Notes/Report: PT, INR - Anti Coag [facility] 2.2 0.9-1.1 METER #: [id number] INTERNATIONAL NORMALIZED RATIO (INR) REFERENCE RANGES Reference [...] OC Reviewed date:03/20/2024 12:37:24 PM Interpretation: Performing Lab:[facility], [address] [place] [address] Notes/Report: Prothrombin Time Whole Bld POC 26.6 11.1-13.5 sec INR WHOLE BLOOD POC Reviewed date:04/17/2024 12:02:54 PM Interpretation: Performing Lab:[facility], [address] [place] [address] Notes/Report: PT, INR - Anti [facility]ag [facility] 2.1 0.9-1.1 METER #: [id number] INTERNATIONAL NORMALIZED RATIO (INR) REFERENCE RANGES Reference [...] OC Reviewed date:04/17/2024 11:58:45 AM Interpretation: Performing Lab:[facility], [address] [place] [address] Notes/Report: Prothrombin Time Whole Bld POC 25.0 11.1-13.5 sec INR WHOLE BLOOD POC Reviewed date:05/15/2024 11:36:59 AM Interpretation: Performing Lab:[facility], [address] [place] [address] Notes/Report: PT, INR - Anti [facility]ag Clinic 1.8 0.9-1.1 METER #: [id number] INTERNATIONAL NORMALIZED RATIO (INR) REFERENCE RANGES Reference [...] OC Reviewed date:05/15/2024 10:55:33 AM Interpretation: Performing Lab:[facility], [address] [place] [address] Notes/Report: Prothrombin Time Whole Bld POC 21.1 11.1-13.5 sec INR WHOLE BLOOD POC Reviewed date:05/29/2024 10:08:18 AM Interpretation: Performing Lab:[facility], [address] [place] [address] Notes/Report: PT, INR - Anti Coag Clinic 2.0 0.9-1.1 METER #: [id number] INTERNATIONAL NORMALIZED RATIO (INR) REFERENCE RANGES Reference [...] OC Reviewed date:05/29/2024 10:08:25 AM Interpretation: Performing Lab:[facility], [address] [place] [address] Notes/Report: Prothrombin Time Whole Bld POC 24.0 11.1-13.5 sec INR WHOLE BLOOD POC Reviewed date:06/26/2024 10:55:58 AM Interpretation: Performing Lab:[facility], [address] [place] [address] Notes/Report: PT, INR - Anti Coag Clinic 2.6 0.9-1.1 METER #: [id number] INTERNATIONAL NORMALIZED RATIO (INR) REFERENCE RANGES Reference [...] OC Reviewed date:06/26/2024 10:55:20 AM Interpretation: Performing Lab:[facility], [address] [place] [address] Notes/Report: Prothrombin Time Whole Bld POC 31.3 11.1-13.5 sec INR WHOLE BLOOD POC Reviewed date:07/24/2024 12:43:30 PM Interpretation: Performing Lab:[facility], [address] [place] [address] Notes/Report: PT, INR - Anti Coag Clinic 2.7 0.9-1.1 METER #: [id number] INTERNATIONAL NORMALIZED RATIO (INR) REFERENCE RANGES Reference [...] OC Reviewed date:07/24/2024 12:43:38 PM Interpretation: Performing Lab:[facility], [address] [place] [address] Notes/Report: Prothrombin Time Whole Bld POC 32.5 11.1-13.5 sec INR WHOLE BLOOD POC Reviewed date:08/23/2024 12:31:58 PM Interpretation: Performing Lab:[address] [address] Notes/Report: PT, INR - Anti Coag Clinic 2.6 0.9-1.1 METER #: [id number] INTERNATIONAL NORMALIZED RATIO (INR) REFERENCE RANGES Reference [...] OC Reviewed date:08/23/2024 12:31:49 PM Interpretation: Performing Lab:[facility], [address] [place] [address] Notes/Report: Prothrombin Time Whole Bld POC 31.7 11.1-13.5 sec PSA,Total (Free>4and<10) Reviewed date:09/17/2024 05:00:46 PM Interpretation: Performing Lab:[address] [address] Notes/Report: PSA,Total (Free>4and<10) 0.21 0.00-4.00 ng/mL A [...] POC Reviewed date:09/20/2024 11:51:44 AM Interpretation: Performing Lab:[address] [address] Notes/Report: PT, INR - Anti Coag Clinic 2.2 0.9-1.1 METER #: [id number] INTERNATIONAL NORMALIZED RATIO (INR) REFERENCE RANGES Reference [...] OC Reviewed date:09/20/2024 12:12:38 PM Interpretation: Performing Lab:[address] [address] Notes/Report: Prothrombin Time Whole Bld POC 26.6 11.1-13.5 sec INR WHOLE BLOOD POC Reviewed date:10/18/2024 12:44:55 PM Interpretation: Performing Lab:[facility], [address] [place] [address] Notes/Report: PT, INR - Anti [facility]ag Clinic 2.9 0.9-1.1 METER #: [id number] INTERNATIONAL NORMALIZED RATIO (INR) REFERENCE RANGES Reference [...] OC Reviewed date:10/18/2024 12:44:46 PM Interpretation: Performing Lab:[facility], [address] [place] [address] Notes/Report: Prothrombin Time Whole Bld POC 34.6 11.1-13.5 sec US renal BI Reviewed date:11/13/2024 12:24:24 PM Interpretation: Performing Lab: Notes/Report: [address] [address] Ultrasound Report Signed Patient: Steven Tiwari MR#: [id number] : 1945 Acct:[id number] Age/Sex: 79 / M ADM Date: 11/12/24 Loc: HO.US Attending Dr: Yonathan Womack MD Ordering Physician: Yonathan Womack MD Date of Service: 11/12/24 Procedure(s): US renal BI Accession Number(s): [id number] cc: Yonathan Womack MD CLINICAL HISTORY: Disorders of adrenal gland US RENAL Comparison: US/MD/SR - US ABDOMEN COMPLETE - 10/06/23 08:38 [...] OV> 11/12/24 1740 DD/ 38 TD/TT: 11/12/241738 Traverse Rod Assembler: [place] [address] Ultrasound Report Signed Patient: Steven Tiwari MR#: [id number] : 1945 Acct:[id number] Age/Sex: 79 / M ADM Date: 11/12/24 Loc: HO.US Attending Dr: Yonathan Womack MD Ordering Physician: Yonathan Womack MD Date of Service: 11/12/24 Procedure(s): US evelyne al BI Accession Number(s): [id number] cc: Yonathan Womack MD CLINICAL HISTORY: Disorders of adrenal gland US RENAL Comparison: US/MD/SR - US ABDOMEN COMPLETE - 10/06/23 08:38 [...] OV> 11/12/24 1740 DD/ 38 TD/TT: 11/12/241738 Traverse Rod Assembler: INR WHOLE BLOOD POC Reviewed date:11/19/2024 12:19:08 PM Interpretation: Performing Lab:[facility], [address] [place] [address] Notes/Report: PT, INR - Anti Coag Clinic 2.7 0.9-1.1 METER #: [id number] INTERNATIONAL NORMALIZED RATIO (INR) REFERENCE RANGES Reference [...] OC Reviewed date:11/19/2024 12:18:23 PM Interpretation: Performing Lab:[facility], [address] [place] [address] Notes/Report: Prothrombin Time Whole Bld POC 32.8 11.1-13.5 sec Complete Blood Count Auto Di ff Reviewed date:12/10/2024 04:29:58 PM Interpretation: Performing Lab:[facility], [address] [place] [address] Notes/Report: White Blood Count 7.7 4.8-10.8 X10*3/uL [...] INR Reviewed date:12/10/2024 04:19:38 PM Interpretation: Performing Lab:[address] [address] Notes/Report: Prothrombin Time 31.9 10.9-12.4 SEC INTERNATIONAL [...] Time Reviewed date:12/10/2024 04:20:01 PM Interpretation: Performing Lab:[address] [address] Notes/Report: Partial Thromboplastin Time 41.3 26.0-36.8 SEC For information regarding the monitoring of direct thrombin inhibitors, please refer to Pharmacy. Comprehensive Met. Panel Reviewed date:12/10/2024 04:27:04 PM Interpretation: Performing Lab:[address] [address] Notes/Report: Sodium 137 135-145 mmol/L Potassium 3.5 [...] Magnesium Reviewed date:12/10/2024 04:22:04 PM Interpretation: Performing Lab:[address] [address] Notes/Report: Magnesium 1.5 1.6-2.6 mg/dL Troponin-I High Sensitivity Reviewed date:12/10/2024 04:19:00 PM Interpretation: Performing Lab:[address] [address] Notes/Report: Troponin-I High Sensitivity 53.3 <3.5-35.0 ng/L The Rahman high sensitivity Troponin-I results should be used in conjunction with other diagnostic information such as ECG, clinical observations and information, and patient symptoms to aid in the diagnosis of AL. B Type Natriuretic Peptide Reviewed date:12/10/2024 04:19:53 PM Interpretation: Performing Lab:[facility], [address] [place] [address] Notes/Report: B Type Natriuretic Peptide 1054 <100 pg/mL Lipase Reviewed date:12/10/2024 04:20:58 PM Interpretation: Performing Lab:[facility] [address] Notes/Report: Lipase 29 8-78 U/L Glucose, Whole Blood Reviewed date:12/10/2024 04:26:07 PM Interpretation: Performing Lab:[facility], [address] [place] [address] Notes/Report: Glucose, Whole Blood 120 60-115 mg/dL METER # : [id number] SARS-CoV2/FLU/RSV Reviewed date:12/10/2024 04:18:51 PM Interpretation: Performing Lab:[address] [address] Notes/Report: Influenza A PCR NEGATIVE Negative Influenza [...] by authorized laboratories. Testing performed on the [employer] GeneXpert utilizing real-time RT-PCR. All SARS CoV2 and positive influenza A/B results are reported to [facility]. UA CC w/rflx Micro + Cult Reviewed date:12/12/2024 06:31:56 PM Interpretation: Performing Lab:[address] [address] Notes/Report: Urine, Clean Catch Color Urine Yellow Appearance Urine Clear PH 7.0 5.0-9.0 Glucose Urine UA Negative Negative mg/dL Urine Blood Negative Negative Specific [place] - Urine 1.010 1.005-1.025 Urine Protein Negative Neg-Trace mg/dL Urine Ketones Negative Negative mg/dL Nitrite Urine Negative Negative Leukocyte Esterase Urine Negative Negative Venous Blood Gases - POC Reviewed date:12/10/2024 04:26:00 PM Interpretation: Performing Lab:[address] [address] Notes/Report: VBG pH 7.53 7.32-7.43 METER #: [id number] additional_comment: Cb springl VBG pCO2 34 METER #: [id number] additional_comment: Cb springl VBG pO2 55 METER #: [id number] additional_comment: Cb springl VBG Base Excess 6.3 METER #: [id number] additional_comment: Cb springl VBG HCO3 28 22-26 mmol/L METER #: [id number] additional_comment: Cb springl VBG O2 % Saturation 87.0 METER #: [id number] additional_comment: Cb springl XR chest 1V Reviewed date:12/10/2024 04:19:30 PM Interpretation: Performing Lab: Notes/Report: [address] [address] XRay Report Signed Patient: Steven Tiwari MR#: [id number] : 1945 Acct:[id number] Age/Sex: 79 / M ADM Date: 12/09/24 Loc: HO.ED Attending Dr: Ordering Physician: Ian Fairchild MD Date of Service: 12/09/24 Procedure(s): XR chest 1V Accession Number(s): [id number] cc: Yonathan Womack MD; Ian Fairchild MD [...] 12/09/24 1237 DD/ 1235 TD/TT: 12/09/24 1235 Traverse Rod Assembler: [address] [address] XRay Report Signed Patient: Steven Tiwari MR#: [id number] : 1945 Acct:[id number] Age/Sex: 79 / M ADM Date: 12/09/24 Loc: HO.ED Attending Dr: Ordering Physician: Ian Fairchild MD Date of Service: 12/09/24 Procedure(s): XR robin st 1V Accession Number(s): [id number] cc: Yonathan Womack MD; Ian Fairchild MD [...] 12/09/24 1237 DD/ 1235 TD/TT: 12/09/24 1235 Traverse Rod Assembler: Complete Blood Count Auto Di ff Reviewed date:12/10/2024 04:30:36 PM Interpretation: Performing Lab:[facility], [address] [place] [address] Notes/Report: White Blood Count 9.0 4.8-10.8 X10*3/uL [...] gy Reviewed date:12/10/2024 04:29:17 PM Interpretation: Performing Lab:[facility], [address] [place] [address] Notes/Report: Hold Lav - Possible Hematology SEE NOTE Specimen will be held untested for 8 hours. Call Hematology if testing is desired. Prothrombin Time INR Reviewed date:12/10/2024 04:26:18 PM Interpretation: Performing Lab:[facility], [address] [place] [address] Notes/Report: Prothrombin Time 28.1 10.9-12.4 SEC INTERNATIONAL [...] Panel Reviewed date:12/10/2024 04:29:09 PM Interpretation: Performing Lab:[facility], [address] [place] [address] Notes/Report: Sodium 136 135-145 mmol/L Potassium 3.4 [...] Magnesium Reviewed date:12/10/2024 04:19:08 PM Interpretation: Performing Lab:[facility], [address] [place] [address] Notes/Report: Magnesium 2.1 1.6-2.6 mg/dL Glucose, Whole Blood Reviewed date:12/10/2024 04:29:26 PM Interpretation: Performing Lab:[facility], [address] [place] [address] Notes/Report: Glucose, Whole Blood 99 60-115 mg/dL METER # : [id number] Hold Lav - Possible Hematolo gy Reviewed date:12/11/2024 06:37:44 PM Interpretation: Performing Lab:[facility], [address] [place] [address] Notes/Report: Hold Lav - Possible Hematology SEE NOTE Specimen will be held untested for 8 hours. Call Hematology if testing is desired. Prothrombin Time INR Reviewed date:12/11/2024 06:42:07 PM Interpretation: Performing Lab:[facility], [address] [place] [address] Notes/Report: Pt in makenzieer LANNYOBICYNTHIA 0701 Prothrombin Time 32.4 10.9-12.4 SEC INTERNATIONAL NORM [...] Panel Reviewed date:12/11/2024 06:36:39 PM Interpretation: Performing Lab:[address] [address] Notes/Report: Pt in LANNY burgessIGNOR 0701 Sodium 135 135-145 mmol/L Potassium 3.4 3.3-5.1 [...] Magnesium Reviewed date:12/11/2024 06:36:22 PM Interpretation: Performing Lab:[facility], [address] [place] [address] Notes/Report: Pt in MARY JANE burgess 0701 Magnesium 2.2 1.6-2.6 mg/dL Hold Lav - Possible Hematolo gy Reviewed date:12/12/2024 12:34:00 PM Interpretation: Performing Lab:[address] [address] Notes/Report: Hold Lav - Possible Hematology SEE NOTE Specimen will be held untested for 8 hours. Call Hematology if testing is desired. Prothrombin Time INR Reviewed date:12/12/2024 12:34:31 PM Interpretation: Performing Lab:[facility], [address] [place] [address] Notes/Report: Prothrombin Time 37.1 10.9-12.4 SEC INTERNATIONAL [...] Panel Reviewed date:12/12/2024 12:34:21 PM Interpretation: Performing Lab:[facility], [address] [place] [address] Notes/Report: Sodium 134 135-145 mmol/L Potassium 3.7 [...] ff Reviewed date:12/14/2024 04:01:27 PM Interpretation: Performing Lab:[facility], [address] [place] [address] Notes/Report: White Blood Count 8.0 4.8-10.8 X10*3/uL [...] INR Reviewed date:12/14/2024 10:28:08 AM Interpretation: Performing Lab:[address] [address] Notes/Report: Prothrombin Time 43.8 10.9-12.4 SEC INTERNATIONAL [...] Panel Reviewed date:12/14/2024 10:28:49 AM Interpretation: Performing Lab:[facility] [address] [address] Notes/Report: Sodium 135 135-145 mmol/L Potassium 3.8 [...] Magnesium Reviewed date:12/15/2024 09:56:55 AM Interpretation: Performing Lab:[address] [address] Notes/Report: Magnesium 1.7 1.6-2.6 mg/dL Troponin-I High Sensitivity Reviewed date:12/14/2024 10:27:17 AM Interpretation: Performing Lab:[address] [address] Notes/Report: Troponin-I High Sensitivity 43.6 <3.5-35.0 ng/L The Rahman high sensitivity Troponin-I results should be used in conjunction with other diagnostic information such as ECG, clinical observations and information, and patient symptoms to aid in the diagnosis of AL. B Type Natriuretic Peptide Reviewed date:12/15/2024 09:57:05 AM Interpretation: Performing Lab:[address] [address] Notes/Report: B Type Natriuretic Peptide 1238 <100 pg/mL UA ClnCatch+Micro w/rflx Cul t Reviewed date:12/14/2024 03:55:16 PM Interpretation: Performing Lab:[facility], [address] [place] [address] Notes/Report: [id number] Urine, Clean Catch Color Urine Yellow Appearance Urine Clear PH 5.5 5.0-9.0 Glucose Urine UA >=1000 Negative mg/dL Urine Blood Negative Negative Specific [place] - Urine 1.020 1.005-1.025 Urine Protein Negative Neg-Trace mg/dL Urine Ketones Negative Negative mg/dL Nitrite Urine Negative Negative Leukocyte Esterase Urine Negative Negative RBC Urine 0-2 0-2 /HPF WBC Urine 0-5 0-5 /HPF Squamous Epithelial Cell Urine 0-2 0-2 /HPF Bacteria Urine None Seen None Seen Hyaline Casts Urine 0-2 0-2 /LPF XR chest 1V Reviewed date:12/14/2024 10:25:20 AM Interpretation: Performing Lab: Notes/Report: [address] [address] XRay Report Signed Patient: Steven Tiwari MR#: [id number] : 1945 Acct:[id number] Age/Sex: 79 / M ADM Date: 12/13/24 Loc: .ED Attending Dr: Ordering Physician: Madi Benedict MD Date of Service: 12/14/24 Procedure(s): XR chest 1V Accession Number(s): [id number] cc: Yonathan Womack MD; Madi Benedict MD [...] signed by Ramin Montoya MD in OV> 12/14/24 0437 DD/ 5 TD/TT: 12/14/24435 Traverse Rod Assembler: [address] [address] XRay Report Signed Patient: Steven Tiwari MR#: [id number] : 1945 Acct:[id number] Age/Sex: 79 / M ADM Date: 12/13/24 Loc: HO.ED Attending Dr: Ordering Physician: Madi Benedict MD Date of Service: 12/14/24 Procedure(s): XR robin st 1V Accession Number(s): [id number] cc: Yonathan Womack MD; Madi Benedict MD [...] in OV> 12/14/24436 DD/ 5 TD/TT: 12/14/24435 Traverse Rod Assembler: Complete Blood Count Auto Di ff Reviewed date:12/15/2024 10:00:16 AM Interpretation: Performing Lab:[facility], [address] [place] [address] Notes/Report: White Blood Count 8.9 4.8-10.8 X10*3/uL [...] Panel Reviewed date:12/15/2024 09:56:46 AM Interpretation: Performing Lab:[facility], [address] [place] [address] Notes/Report: Sodium 134 135-145 mmol/L Potassium 3.5 [...] Sensitivity Reviewed date:12/15/2024 09:56:22 AM Interpretation: Performing Lab:[facility], [address] [place] [address] Notes/Report: Troponin-I High Sensitivity 55.1 <3.5-35.0 ng/L The Rahman high sensitivity Troponin-I results should be used in conjunction with other diagnostic information such as ECG, clinical observations and information, and patient symptoms to aid in the diagnosis of AL. XR chest 1V Reviewed date:12/15/2024 09:52:59 AM Interpretation: Performing Lab: Notes/Report: [address] [address] XRay Report Signed Patient: Setven Tiwari MR#: [id number] : 1945 Acct:[id number] Age/Sex: 79 / M ADM Date: 12/14/24 Loc: .ED Attending Dr: Ordering Physician: Dillon Galvan MD Date of Service: 12/14/24 Procedure(s): XR chest 1V Accession Number(s): [id number] cc: Yonathan Womack MD; Dillon Galvan MD [...] in OV> 12/14/242213 DD/ 12 TD/TT: 12/14/242212 [employer]: [address] [address] XRay Report Signed Patient: Steven Tiwari MR#: [id number] : 1945 Acct:[id number] Age/Sex: 79 / M ADM Date: 12/14/24 Loc: HO.ED Attending Dr: Ordering Physician: Dillon Galvan MD Date of Service: 12/14/24 Procedure(s): XR robin st 1V Accession Number(s): [id number] cc: Yonathan Womack MD; Dillon Galvan MD [...] in OV> 12/14/242213 DD/ 12 TD/TT: 12/14/242212 [employer]: Prothrombin Time INR Reviewed date:12/15/2024 09:52:31 AM Interpretation: Performing Lab:[facility], [address] [place] [phone] Notes/Report: Prothrombin Time 45.3 10.9-12.4 [employer] [...] Peptide Reviewed date:12/15/2024 09:52:22 AM Interpretation: Performing Lab:[facility], [address] [place] [phone] Notes/Report: B Type Natriuretic Peptide 998 <100 pg/mL Troponin-I High Sensitivity Reviewed date:12/15/2024 09:52:10 AM Interpretation: Performing Lab:[facility], [address] [place] [phone] Notes/Report: Troponin-I High Sensitivity 83.6 <3.5-35.0 ng/L The Rahman high sensitivity Troponin-I results should be used in conjunction with other diagnostic information such as ECG, clinical observations and information, and patient symptoms to aid in the diagnosis of AL. Prothrombin Time INR Reviewed date:12/16/2024 01:57:17 PM Interpretation: Performing Lab:[facility], [address] [place] [phone] Notes/Report: Prothrombin Time 35.3 10.9-12.4 SEC INTERNATIONAL [...] Blood Reviewed date:12/16/2024 01:57:55 PM Interpretation: Performing Lab:[facility], [address] [place] [phone] Notes/Report: Glucose, Whole Blood 118 60-115 mg/dL METER # : [id number] Complete Blood Count no Diff Reviewed date:12/16/2024 01:58:43 PM Interpretation: Performing Lab:[facility], [address] [place] [phone] Notes/Report: White Blood Count 9.6 4.8-10.8 X10*3/uL [...] INR Reviewed date:12/16/2024 01:57:33 PM Interpretation: Performing Lab:[address] [phone] Notes/Report: Prothrombin Time 31.0 10.9-12.4 SEC INTERNATIONAL [...] Panel Reviewed date:12/16/2024 01:56:18 PM Interpretation: Performing Lab:[address] [phone] Notes/Report: Sodium 135 135-145 mmol/L Potassium 3.3 [...] INR Reviewed date:12/16/2024 01:57:26 PM Interpretation: Performing Lab:[address] [phone] Notes/Report: Prothrombin Time 31.1 10.9-12.4 SEC INTERNATIONAL [...] ff Reviewed date:12/18/2024 12:41:15 PM Interpretation: Performing Lab:[address] [phone] Notes/Report: White Blood Count 7.9 4.8-10.8 X10*3/uL [...] Panel Reviewed date:12/18/2024 12:57:54 PM Interpretation: Performing Lab:[facility], [address] [place] [phone] Notes/Report: Sodium 137 135-145 mmol/L Potassium 3.4 [...] Sensitivity Reviewed date:12/18/2024 09:01:42 AM Interpretation: Performing Lab:[facility], [address] [place] [phone] Notes/Report: Troponin-I High Sensitivity 40.4 <3.5-35.0 ng/L The Rahman high sensitivity Troponin-I results should be used in conjunction with other diagnostic information such as ECG, clinical observations and information, and patient symptoms to aid in the diagnosis of AL. B Type Natriuretic Peptide Reviewed date:12/18/2024 09:02:28 AM Interpretation: Performing Lab:[facility], [address] [place] [phone] Notes/Report: B Type Natriuretic Peptide 811 <100 pg/mL Basic Metabolic Panel (Not y et reviewed by provider) Interpretation: Performing Lab:[facility], [address] [place] [phone] Notes/Report: Sodium 138 135-145 mmol/L Potassium 4.0 3.3-5.1 mmol/L Chloride 99 96-108 mmol/L Carbon Dioxide 29 22-29 mmol/L Anion Gap 14 12-20 Blood Urea Nitrogen 24 9-16 mg/dL Creatinine 1.15 0.5-1.4 mg/dL Estimated Glomerular Filt Rate > 60 Chronic Kidney Disease: Estimated GFR < 60 mL/min/1.73m2 Severe Kidney Disease: Estimated GFR < 15 mL/min/1.73m2 Glucose Random 124 60-115 mg/dL Calcium 9.5 8.4-10.2 mg/dL Hold Gold (Not yet reviewed by provider) Interpretation: Performing Lab:[facility], [address] [place] [phone] Notes/Report: Hold Gold See Note Specimen held untested for 24 hours; Call to request Chemistry testing. Reason For Referral Reason pain in left [...] Referring Provider Last Name Shanta [facility] Referred Provider Simone [place] Referred [...] Referring Provider Last Name Shanta Referring Provider [facility] [place] [facility] Referred Provider JEROME URIBE Referred Provider [...] BY QUINTON CANO FOR PT BEGINNING 11/07 SHERINE AT [phone] #2 IF ANY QUESTIONS Referral Priority Routine [...] Sk[place] 12/20/2024 09:57:31 AM >REFERRAL FAXED TO [facility] FOR NEW PATIENT ALIETAvtar Annette 12/24/2024 09:44:40 AM >spoke with patient no need for this referral. 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 Moody Referral Priority Routine Medications Medication SIG (Take, Route, Frequency, Duration) Notes Start Date End Date Status Simvastatin 40 MG TAKE 1/2 TABLET BY MOUTH EVERY EVENING Active Tylenol Extra Strength 500 MG 1/2 tablet Orally every 6 hrs Not-Taking FreeStyle Lite Test - TEST BLOOD SUGAR O NCE EVERY DAY for 50 Active Imodium A-D 2 MG 1 tablet as needed Orally Four times a day Not-Taking FreeStyle Lancets - USE TO CHECK BLOOD SUGAR ONCE A DAY for 90 Active Triamcinolone Acetonide 0.5 % 1 application to affected area Externally Twice a day for 30 days 10/03/2014 Not-Taking Omeprazole 20 MG TAKE 1 CAPSULE BY MOUTH EVERY DAY 30 MINUTES BEFORE BREAKFAST Active Nitrostat 0.4 MG as directed Sublingu al every 5 mins times 3 for 30 days 11/30/2016 Not-Taking Spironolactone 25 MG 1 tablet Orally Not-Taking Furosemide 20 MG 2 tabs twice a day Orally twice a day Active Co Q 10 100 MG 1 capsule with a indy l Orally Once a day for 30 day(s) Active LORazepam 0.5 MG TAKE 1 TABLET BY CASSIUS TH EVERY DAY NEEDED Orally Once a day for 30 days 12/31/2024 Active Triamcinolone Acetonide 0.1 % 1 application Externally Once a day for 30 days 07/23/2021 Active Ondansetron 4 MG 1 tablet on [...] tablet Orally Twic e a day Active Immunizations Vaccine Route Administration Date Status [...] W/U Status Risk Notes Problem Panic attack (725960250) Panic attack (300.01) Active confirmed Problem Cardiomyopathy (50492207) Cardiomyopathy (425.4) Active confirmed Problem 277959725 Unspecified asth ma, uncomplicated (J45.909) Active confirmed Problem 37872438 Restless leg syn drome (G25.81) Active confirmed Problem Carotid artery disease (647337124) Carotid artery disease (I77.9) Active confirmed Problem 72969190 Vitamin D defici ency (E55.9) Active confirmed Problem 08640272 Anxiety (F41.9) Active confirmed Problem Hypomagnesemia (907075425) Hypomagnesemia (E83.42) Active confirmed Problem 80694414 Other chronic pa in (G89.29) Active confirmed Problem Acute on chronic systolic heart failure (586473664) Acute on chronic systolic (congestive) heart failure (I50.23) Active confirmed Problem 4167993 Diverticulitis o f large intestine without perforation or abscess with bleeding (K57.33) Active confirmed Problem 624330373 Prostate cancer (C61) Active confirme d Problem 4997350 Prediabetes (R73.09) Active confirmed Problem 142373433 Low HDL (under 4 0) (E78.6) Active confirmed Problem 31834799 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) Active confirmed Problem 056385026 Cervical disc di sease (M50.90) Active confirmed Problem 22237054 Intrinsic eczema (L20.84) Active confirmed Problem 874221509 Gall stones (K80.20) Active confirmed Problem 922325187 History of prost ate cancer (Z85.46) Active confirmed Problem 869119245 Kidney mass (N28.89) Active confirmed Problem 69094798 Dysthymia (F34.1) Active confirmed Problem 710160503 Anticoagulant long-term use (Z79.01) Active confirmed Problem 001570987 Nonalcoholic hepatosteatosis (K76.0) Active confirmed Problem 825816212 History of myoca rdial infarction (I25.2) Active confirmed Problem 81412583 Reflux gastritis (K29.60) Active confirmed Problem 41440725 Sleep apnea, unspecified type (G47.30) Active confirmed Problem 859457111 Acute on chronic systolic congestive heart failure (I50.23) Active confirmed Problem 062849933 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) Active confirmed Problem 817764531 Benign prostatic hyperplasia with lower urinary tract symptoms (N40.1) Active confirmed Problem 527425755 Pure hypercholesterolemia (E78.00) Active confirmed Problem Abnormal gait (85137715) Abnormal gait (R26.9) Active confirmed Problem Chronic kidney disease (486539755) CKD (chronic kidney disease) (N18.9) Active confirmed Problem 5986109 Low calcium leve ls (E83.51) Active confirmed Problem 629601553 Abnormal CT scan , kidney (R93.429) Active confirmed Problem 117711248 On bridging jing tment with lovenox (Z79.01) Active confirmed Problem 675982227 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) Active confirmed Problem 380383760 Atrial fibrillat ion, chronic (I48.20) Active confirmed Problem 277918867 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 Vital Signs Blood pressure diastolic 64 mm Hg 01/10/2025 kayli ght is down 5 pounds since 12-20-24 Height 69 in 01/10/2025 weight is down 5 pounds since 12-20-24 Blood pressure systolic 108 mm Hg 01/10/2025 weig ht is down 5 pounds since 12-20-24 Weight 200 lbs 01/10/2025 weight is down 5 pounds since 12-20-24 BMI 29.53 kg/m2 01/10/2025 weight is down 5 pounds since 12-20-24 Encounters Encounter Location Date Provider Diagnosis Yonathan Womack MD [address] [place] [address] [id number] 09/17/2024 Yonathan Womack Blood tests for rout ine general physical examination Z00.00 ; Prediabetes R73.09 ; Pure hypercholesterolemia E78.00 ; Prostate cancer C61 ; Vitamin D deficiency E55.9 and Acute on chronic systolic congestive heart failure I50.23 Yonathan Womack MD [address] [place] [address] [id number] 01/10/2025 Yonathan Womack Elevated BUN R79.9 Yonathan Womack MD [address] [place] [address] [id number] 01/10/2025 Yonathan Womack Acute on chronic sys tolic congestive heart failure I50.23 ; Atrial fibrillation, chronic I48.20 and CKD (chronic kidney disease) N18.9 Yonathan Womack MD [address] [place] [address] [id number] 01/19/2024 Yonathan Womack Synovial cyst of lef t popliteal space M71.22 and Acute on chronic systolic congestive heart failure I50.23 Yonathan Womack MD [address] [place] [address] [id number] 02/21/2024 Yonathan Womack Pain in left knee M2 5.562 and Other chronic pain G89.29 Yonathan Womack MD [address] [place] [address] [id number] 05/21/2024 Yonathan Bombardier Acute on chronic sys tolic congestive heart failure I50.23 Yonathan Womack MD [address] [place] [address] [id number] 06/25/2024 Yonathan Ezraardier Right upper quadrant pain R10.11 Yonathan Womack MD [address] [place] [address] [id number] 07/26/2024 Yonathan Bombardier Acute on chronic sys tolic congestive heart failure I50.23 Yonathan Womack MD [address] [place] [address] [id number] 09/21/2024 Yonathan Bombardier Elevated BUN R79.9 ; Annual physical exam Z00.00 ; Nonalcoholic hepatosteatosis K76.0 ; Prediabetes R73.09 ; Atrial fibrillation, chronic I48.20 ; Anticoagulant long-term use Z79.01 ; Acute on chronic systolic congestive heart failure I50.23 ; Reflux gastritis K29.60 and Depression screening Z13.31 Yonathan Womack MD [address] [place] [address] [id number] 10/25/2024 Yonathan Ezraardier Shoulder pain M25.51 9 and Abnormal gait R26.9 Yonathan Womack MD [address] [place] [address] [id number] 12/20/2024 Yonathan Bombardier Acute on chronic sys tolic congestive heart failure I50.23 ; Atrial fibrillation, chronic I48.20 and Anticoagulant long-term use Z79.01 Yonathan Womack MD [address] [place] [address] [id number] 01/24/2024 Yonathan Womack MD [address] [place] [address] [id number] 03/26/2024 Yonathan Womack MD [address] [place] [address] [id number] 04/10/2024 Yonathan Womack MD [address] [place] [address] [id number] 04/26/2024 Yonathan Womack MD [address] [place] [address] [id number] 05/03/2024 Yonathan Womack MD [address] [place] [address] [id number] 07/24/2024 Yonathan Womack MD [address] [place] [address] [id number] 09/04/2024 Yonathan Womack MD [address] [place] [address] [id number] 10/15/2024 Yonathan Womack MD [address] [place] [address] [id number] 10/16/2024 Yonathan Womack MD [address] [place] [address] [id number] 11/05/2024 Yonathan Womack MD [address] [place] [address] [id number] 12/13/2024 Yonathan Womack MD [address] [place] [address] [id number] 12/17/2024 Yonathan Womack MD [address] [place] [address] [id number] 12/31/2024 Yonathan Womack Assessments Encounter Date Diagnosis (ICD Code) Assessment Notes Treatment Notes Treatment Clinical Notes Section Notes 09/17/2024 Blood tests for routine general physical examination (ICD-10 - Z00.00) 01/10/2025 Elevated BUN (ICD-10 - R79.9) 01/10/2025 Acute on chronic systolic congestive heart failure (ICD-10 - I50.23) has been in and out of the hospital a month ago 01/10/2025 Atrial fibrillation, chronic (ICD-10 - I48.20) has stabilized 01/19/2024 Synovial cyst of lef t popliteal space (ICD-10 - M71.22) possibly ruptured . will observe 01/19/2024 Acute on chronic systolic congestive heart failure (ICD-10 - I50.23) need notes from dr lisa from last week/ request made by phone to dr [facility] med records 02/21/2024 Pain in left knee (ICD-10 - M25.562) needs wheelchair. is getting through [facility]. 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 machine operator to see what need to be done [...] dr clayton 09/17/2024 Prediabetes (ICD-10 - R73.09) 01/10/2025 CKD (chronic kidney disease) (ICD-10 - N18.9) had bun and cr drawn today 09/21/2024 Nonalcoholic hepatosteatosis (ICD-10 - K76.0) [...] 09/14/2019 US ABD 01/23/2021 US ABD 09/20/2023 Basic Metabolic Panel 01/10/2025 Hold Gold 01/10/2025 CT chest wo con 04/22/2022 NM bone scan whole body 12/30/2022 US abdomen complete 03/12/2021 US abdomen complete 02/11/2022 Blood Urea Nitrogen 01/10/2025 Creatinine 01/10/2025 Future Test Test Name Order Date US RENAL BILATERAL 10/20/2024 Next Appt Details Provider Name:Yonathan mendoza, 03/21/2025 07:00:00 AM, [address], [address], [place], [place], [id number], Provider Name:Yonathan Pan ier, 04/02/2025 01:45:00 PM, [address], [address], [place], [id number], Provider Name:Yonathan Pan janyr, 09/17/2025 07:45:00 AM, [address], [address], [place], [id number], Provider Name:Yonathan Pan ier, 09/24/2025 01:00:00 PM, [address], [address], [place], [id number], Insurance Providers Payer Name Payer Address Payer Phone Subscriber Number Group Number Insured Name Patient Relationship to Insured Coverage Start Date Coverage End Date [employer] [facility] [address] [place] [phone] [id number] STEVEN TIWARI Self - patient is the insured [facility] [address] [place] [address] [phone] [id number] STEVEN TIWARI Self - patient is the insured Medical (General) History Medical History History ICD Code cerebrovascular accident 2006 refuses a stress test due to adverse yenny nt in the past. 05/30/2013 - colonoscopy due in 3 years. refuses to have another 2016
--- OUTSIDE RECORDS SUMMARY | 2025-01-10 12:16 | XMS_ITS | Encounter Summary ---
Author Organization [facility] Address [address] [place] [address] Care Team Providers Care Grill Prep Cook Name Role Phone Yonathan Womack MD Primary Care Provider Encounter Details Date Type Department Care Team (Late st Contact Info) Description 12/13/2024 Telephone [facility] [address] [place] [id number] Sin Farfan MD [address] [place] [address] Social History Tobacco Use Types Packs/Day Years [...] Description 04/02/2025 11:00 AM EDT Ancillary Procedure [facility] [address] [place] [address] documented as of this encounter Visit Diagnoses Not on filedocumented in this encounter Care Teams Grill Prep Cook Relationship Specialty Start Date End Date Yonathan Womack MD [address] [place] [address] Drive [address] [place] [address] PCP - General 12/26/12 documented as of this encounter
== END 2025-01-10 11:42 | disposition home or self-care (01) ==
LOC: HO.LNP 11:41
PROVIDERS: Visit Provider Internal Medicine
DX: R79.9 Abnormal finding of blood chemistry, unspecified (principal)
CPT/HCPCS: 80048

== ENCOUNTER 2025-01-17 09:16 | Outpatient (AMB) | payer MEDICARE, MEDICAID, SELFPAY ==
--- NOTE | 2025-01-17 09:23 | MHC.OFFVISCO ---
Intake Intake Visit Reasons: Anticoagulation Allergies adenosine Allergy (Severe, Verified 12/27/24 14:52) cardiac, elevated BP, Stroke Gadolinium-Containing Contrast Medi Allergy (Severe, Verified 12/27/24 14:52) red eyes Iodinated Contrast Media [CONTRAST, IV] Allergy (Severe, Verified 12/27/24 14:52) Seizure carvedilol Allergy (Intermediate, Verified 12/27/24 14:52) disorientation erythromycin base Adverse Reaction (Unknown, Verified 12/27/24 14:52) Gut pain , Abdominal Pain, GI upset Medication List - Last Reconciled 01/17/25 by Tyesha Valente RN carboxymethylcellulose sodium 0.5% (Refresh Tears) 1 drp ophthalmic (eye) BID coenzyme Q10 (CoQ-10) 100 mg PO DAILY furosemide 40 mg PO BID lorazepam 0.25 mg PO BID PRN metoprolol succinate ER 50 mg PO DAILY omeprazole 20 mg PO DAILY@0630 ondansetron 2 mg PO Q6-8H PRN sacubitril-valsartan 24-26 mg (Entresto) 1 tab PO BID simvastatin 10 mg PO DAILY spironolactone 12.5 mg PO QAM warfarin See Protocol 1-3 TABS DAILY CURRENT DOSE 7.5MG X 5 DAYS/ 5MG X 2 DAYS Nursing Note INR received from [facility] nurse Shaneka, INR today is 2.2, T/c to nurse with patient on speaker phone Patient status: condition improved no c/o of c/p or sob or weight gain Denies any signs and symptoms of any unusual bruising, bleeding or clotting Medication or supplements: no recent changes Diet: no changes Activity: as tolerated and enc Dose: same 5mg x 2 days/ 7.5mg x 5 days Dosing and diet instructions given with next retest date of 1 week - last visit with VNA services , Nurse and patient verbalizes understanding of instructions given with accurate read back Anti-Coag Initial Assessment Social Hx Patient Tobacco Use Status: Never used Tobacco alcohol intake: former Alcohol intake frequency: does not drink Coding Level of Care Code Est Patient Level 1 Diagnoses Current use of anticoagulant therapy Z79.01 Results AMB INR Fingerstick AMB INR Fingerstick 2.2 Last Edit by Tyesha Valente RN on 01/17/25 09:22 MANUAL ENTRY Assessment & Plan Assessment & Plan (1) Current use of anticoagulant therapy: Comment: Warfarin Code(s): Z79.01 - long-term (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
== END 2025-01-17 09:27 | disposition home or self-care (01) ==
PROVIDERS: Visit Provider Internal Medicine Medical Oncology
DX: Z79.01 Long term (current) use of anticoagulants (principal)

== ENCOUNTER → 2025-01-17 09:16 | Outpatient (BNVA) | payer MEDICARE, MEDICAID, SELFPAY | PROVIDERS: Visit Provider Internal Medicine Medical Oncology | DX: I48.20 Chronic atrial fibrillation, unspecified (principal); Z79.01 Long term (current) use of anticoagulants; Z51.81 Encounter for therapeutic drug level monitoring | CPT/HCPCS: 99211 ==

== ENCOUNTER → 2025-01-24 10:24 | Outpatient (BNVA) | payer MEDICARE, MEDICAID, SELFPAY | PROVIDERS: Visit Provider Internal Medicine Medical Oncology ==

== ENCOUNTER → 2025-01-31 10:08 | Outpatient (BNVA) | payer MEDICARE, MEDICAID, SELFPAY | PROVIDERS: PCP Internal Medicine; Visit Provider Internal Medicine Medical Oncology | DX: Z79.01 Long term (current) use of anticoagulants (principal) ==

== ENCOUNTER 2025-02-28 09:03 | Outpatient (AMB) | payer MEDICARE, MEDICAID, SELFPAY ==
--- OUTSIDE RECORDS SUMMARY | 2025-01-10 05:15 | XMS_ITS ---
Author Organization Yonathan Womack MD Address [address] [place] [phone] Care Team Providers Care Television Mechanic Name Role Phone Yonathan Womack Primary Care [...] kg/m2 01/10/2025 weight is down 5 pounds [facility] 12-20-24 Encounters Encounter Location Date Provider Diagnosis Yonathan Womack MD [address] [place] [address] Drive [address] [place], [place] [phone] 01/10/2025 Yonathan Womack Acute on chronic systolic [...] Reason: Provider Name:Yonathan mendoza, 03/21/2025 07:00:00 AM, [address] [place] [address], [address], [phone], Provider Name:Yonathan mendoza, 04/02/2025 01:45:00 PM, [address] [place] [address], [address], [phone], Provider Name:Yonathan mendoza, 09/17/2025 07:45:00 AM, [address] [place] [address], [address], [phone], Provider Name:Yonathan mendoza, 09/24/2025 01:00:00 PM, [address] [place] [address], [phone], Progress Notes * STEVEN NUNEZDOB: [birth year] (79 yo M)Acc No.[id number]:01/10/2025 Progress Notes Patient: STEVEN SOSA Provider: Kyara Womack MD :1945 A ge:79 Y S ex:Male Date:01/10/2025 Address:[address] [place] [address] , [place] [address] Subjective: * Chief Complaints: * 3 WEEK F/[facility] Risk Codes: 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I11.0 Hypertensive heart disease with heart bivfbrvR26.20 VTach, tokawmovtnfU49.351 Hemiplegia/Hemiparesis following cerebral infarction affecting right sideN18.30 [...] Wt-k.72. weight is down 5 pounds since 5-1-25. * Examination: G eneral Examination: GENERAL APPEARANCE: [...] MD Date: 0 01/10/2025 Generated for Douglas whitehead/Galina/Justinransmitting on: 0 02/28/2025 09:26 AM EDT History and Physical Notes * [...]
--- NOTE | 2025-02-28 09:15 | MHC.OFFVISCO ---
Intake Intake Visit Reasons: Anticoagulation Allergies adenosine Allergy (Severe, Verified 02/28/25 09:04) cardiac, elevated BP, Stroke Gadolinium-Containing Contrast Medi Allergy (Severe, Verified 02/28/25 09:04) red eyes Iodinated Contrast Media (CONTRAST, IV) Allergy (Severe, Verified 02/28/25 09:04) Seizure carvedilol Allergy (Intermediate, Verified 02/28/25 09:04) disorientation erythromycin base Adverse Reaction (Unknown, Verified 02/28/25 09:04) Gut pain , Abdominal Pain, GI upset Medication List - Last Reconciled 02/28/25 by Rhonda Smiht, RN carboxymethylcellulose sodium 0.5% (Refresh Tears) 1 drp ophthalmic (eye) BID coenzyme Q10 (CoQ-10) 100 mg PO DAILY furosemide 40 mg PO BID lorazepam 0.25 mg PO BID PRN metoprolol succinate ER 50 mg PO DAILY omeprazole 20 mg PO DAILY@0630 ondansetron 2 mg PO Q6-8H PRN sacubitril-valsartan 24-26 mg (Entresto) 1 tab PO BID simvastatin 10 mg PO DAILY spironolactone 12.5 mg PO QAM warfarin See Protocol 1-3 TABS DAILY CURRENT DOSE 7.5MG X 5 DAYS/ 5MG X 2 DAYS Nursing Note NO CP,SOB,DIET/MED CHANGES,FALLS OR SX OF BLEEDING. CONTINUE PRESENT DOSE AND FOLLOW-UP IN 3 WEEKS GOOD UNDERSTANDING OF DOSING INSTR. Anti-Coag Initial Assessment Social Hx Patient Tobacco Use Status: Never used Tobacco alcohol intake: former Alcohol intake frequency: does not drink Coding Level of Care Code Est Patient Level 1 Diagnoses Current use of anticoagulant therapy Z79.01 Results AMB INR Fingerstick AMB INR Fingerstick 2.9 Last Edit by Rhonda Smith RN on 02/28/25 09:12 Assessment & Plan Assessment & Plan (1) Current use of anticoagulant therapy: Comment: Warfarin Code(s): Z79.01 - retirement (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
[2025-02-28 09:17] LABS: Prothrombin Time Whole Bld POC 34.7 sec (11.1-13.5); ~PT, ~INR - Anti Coag Clinic 2.9 (0.9-1.1)
--- OUTSIDE RECORDS SUMMARY | 2025-02-28 09:27 | XMS_ITS | Clinical Summary ---
Author Organization [address] [place] [address] [place] [phone] Phone Care Team Providers Care Wind Turbine Electrical Engineer Name Role Phone Yonathan Womack MD Primary Care Provider [phone] Allergies Active Allergy Reactions Criticality Noted Date [...] Take 20 mg by mouth daily. Active warfarin (COUMADIN) 2.5 mg tablet Take 1 Tablet by mouth See Admin Instruction s. May cause heavy bleeding. Take at same time every day. Do not change dietary habits. Managed by [facility]. Active metoprolol succinate (TOPROL-XL) 50 mg [...] day. 90 tablet 1 12/26/19 25 Active simvastatin (ZOCOR) 20 mg tablet TAKE 1/2 TABLET BY MOUTH AT BEDTIME 45 tablet 1 02/05/20 25 Active simvastatin (ZOCOR) 20 mg tablet Take 0.5 tablets (10 mg total) by mouth at bedtime. 01/26/20 24 025 Discontinued Active Problems Problem Noted Date [...] he would go to the [facility] ER from our office. He has a ride and will not be driving PVD (peripheral vascular disease) ([facility] V24) 08/09/2023 Overview (06/07/2024): Last Assessment & Plan: History of peripheral vascular disease with known carotid stenosis. HFrEF (heart failure with re duced ejection fraction) ([facility] V24, [facility] V28) 01/06/2023 Assessment & Plan (12/31/2024 11:58 [...] denies any excessive bleeding or bruising. His [id number] score is 7 representing 11.2% risk for thromboembolism. He will require ongoing anticoagulation. Assessment & Plan (12/21/2024 12:00 AM EDT): Patient has history of chronic atrial fibrillation which is adequately rate controlled on his present dose of metropolol. He continues on warfarin for anticoagulation denies any excessive bleeding or bruising. His [id number] score is 7 representing 11.2% risk for thromboembolism. He will require ongoing anticoagulation. Assessment & Plan (07/30/2024 8:19 AM EST): Orders: ECG 12 lead Coronary arteriosclerosis in nikolai artery 05/26 Assessment & Plan (12/31/2024 11:58 [...] to the emergency room at [facility] for chest pain both times [...] Encounters Date Type Department Care Team Description 02/13/2025 Telephone [facility] [address] [facility] [address] [place] [address] Michaela Anguiano NP Hypotension 01/30/2025 Telephone [facility] [address] [facility] [address] [place] [address] Michaela Anguiano NP Weight Gain 01/26/2025 Telephone [facility] [address] [place] [address] Nina Rainey NP 2025 Telephone [facility] [address] [facility] [address] [place] [address] Michaela Anguiano NP weight flucuation 01/03/2025 Telephone [facility] [address] [facility] [address] [place] [address] Michaela Anguiano NP Labs Only 12/31/2024 11:30 AM EDT Office Visit [facility] [address] [facility] [address] [place] [address] Michaela Anguiano NP HFrEF (heart failure with reduced ejection fraction) (CMS/HCC V24, CMS/HCC V28) (Primary Dx); Congestive heart failure, unspecified HF chronicity, unspecified heart failure type (CMS/HCC V24, CMS/HCC V28); Heart valve disorder; Coronary arteriosclerosis in nikolai artery; Chronic atrial fibrillation (CMS/HCC V24, CMS/HCC V28); Mixed hyperlipidemia 12/25/2024 Telephone [facility] [address] [place] [address] Michaela Anguiano NP 12/24/2024 Telephone [facility] [address] [facility] [address] [place] [address] Michaela Anguiano, MARNIE Medication Problem; Med Refill 12/23/2024 Telephone [facility] [address] [place] [address] Cristian Zamarripa NP 12/20/2024 11:30 AM EDT Office Visit [facility] [address] [place] [address] Michaela Anguiano, MARNIE HFrEF (heart failure with reduced ejection fraction) (CMS/HCC V24, CMS/HCC V28) (Primary Dx); Atrial fibrillation, unspecified type (CMS/HCC V24, CMS/HCC V28); Coronary arteriosclerosis in nikolai artery; Mixed hyperlipidemia 12/20/2024 Telephone [facility] [address] [place] [address] Michaela Anguiano, MARNIE Med Refill 12/18/2024 Telephone [facility] [address] [place] [address] Ramin Parekh MD furosemide dosage ? ([facility]) 12/13/2024 Telephone [facility] [address] [place] [address] Sin Farfan MD 12/13/2024 [address] [facility] [address] [place] [address] Eddie Granados MD Other 12/05/2024 Telephone [facility] [address] [facility] [address] [place] [address] Eddie Granados MD Weight Gain; irregular heart rate 11/29/2024 Telephone [facility] [address] [facility] [address] [place] [address] Eddie Granados MD Med Refill (Metoprolol) from Last 3 Months Medical History Medical History Date Comments CVA (cerebral vascular accid ent) ([facility]/HCC V24, CMS/HCC V28) DX:CVA (cerebral vascular ac cident) ([facility]) Chronic ischemic heart disease D X:Chronic ischemic [...] Care Team (Late st Contact Info) Description 03/04/2025 9:10 AM EDT Office Visit [facility] [address] [facility] [address] [place] [phone] Michaela Anguiano, MARNIE [address] [place] [address] [address] [place] [address] 04/02/2025 11:00 AM EDT Ancillary Procedure [facility] [address] [place] [phone] Health Maintenance Due Date Last Done Comments DTaP,Tdap,and Td Vaccines (1 - Tdap) 1964 Pneumococcal Vaccine: 50+ Ye ars (1 of 2 - PCV) 1964 Zoster Vaccines (1 of 2) 01/22/1996 RSV Immunization Adult Patie nts (1 - 1-dose 75+ series) 2021 Cholesterol Screening (Lipid Panel) 07/25/2022 Depression Screening 07/25/2022 Falls Risk Assessment 07/25/2022 Hepatitis C Screening 07/25/2022 Medicare Annual Wellness Visit 07/25/2022 Social Influencers of Health Screening 07/25/2022 Hypertension/CHF/CAD Annual BMP Blood Test 08/01/2022 COVID-19 Vaccine ( - 2023-2 5 season) 2024 Influenza Vaccine (#1) 2025 HIB Vaccines Aged Out No longer [...] 11:4 2 AM EDT us Michaela Anguiano WIREWORKER ECG ORDERABLES Final Result GEMUSE from Last 3 Months Insurance [employer] MEDICA[place] - [place] Care Teams Wind Turbine Electrical Engineer Relationship Specialty Start Date End Date Yonathan Womack MD [address] [place] [address] PCP - General 12/26/12
== END 2025-02-28 09:17 | disposition home or self-care (01) ==
LOC: HO.ACS 09:03
PROVIDERS: PCP Internal Medicine; Visit Provider Internal Medicine Medical Oncology
DX: Z79.01 Long term (current) use of anticoagulants (principal)

== ENCOUNTER → 2025-02-28 09:03 | Outpatient (BNVA) | payer MEDICARE, MEDICAID, SELFPAY | PROVIDERS: PCP Internal Medicine; Visit Provider Internal Medicine Medical Oncology | DX: I48.20 Chronic atrial fibrillation, unspecified (principal); Z79.01 Long term (current) use of anticoagulants; Z51.81 Encounter for therapeutic drug level monitoring | CPT/HCPCS: 85610; 99211 ==

== ENCOUNTER 2025-03-13 09:26 | Outpatient (REF) | payer MEDICARE, MEDICAID, SELFPAY ==
--- OUTSIDE RECORDS SUMMARY | 2025-01-10 05:15 | XMS_ITS ---
Author Organization Yonathan Womack MD Address [address] [place] [phone] Care Team Providers Care Newspaper Photographer Name Role Phone Yonathan Womack Primary Care Provider Allergies Allergen (clinical drug ingredient) Drug/Non Drug Allergy documented on EMR Reaction Allergy Type Onset Date Status gadolinium (uncoded) red eues Allergy Active Adedison (uncoded) Elevated BP Allergy Active erythromycin Erythromyicin (uncoded) GI Upset Allergy Active erythromycin Ilisone (uncoded) GI Upset Allergy Active IVPDye (uncoded) Convulsion Allergy Ac tive REASON FOR VISIT 3 WEEK F/U, HCC Risk Codes: 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, I11.0 Hypertensive heart disease with heart failure, I47.20 VTach, unspecified, 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, N18.30 CKD stage 3 Medications Medication SIG (Take, Route, Frequency, Duration) Notes Start Date End Date Status Omeprazole 20 MG TAKE 1 CAPSULE BY MOUTH EVERY DAY 30 MINUTES BEFORE BREAKFAST Active Furosemide 20 MG 2 tabs twice a day Orally twice a day Active LORazepam 0.5 MG TAKE 1 TABLET BY CASSIUS TH EVERY DAY NEEDED Orally Once a day for 30 days 12/31/2024 Active Ondansetron 4 MG 1 tablet on the tong ue and allow to dissolve Orally twice a day for 5 days 12/17/2024 Active Metoprolol Succinate 50 MG 1 capsule Ora lly Once a day Active Simvastatin 40 MG TAKE 1/2 TABLET BY MOUTH EVERY EVENING Active FreeStyle Lite Test - TEST BLOOD SUGAR O NCE EVERY DAY for 50 Active FreeStyle Lancets - USE TO CHECK BLOOD SUGAR ONCE A DAY for 90 Active Entresto 24-26 MG 1 tablet Orally Twic e a day Active Warfarin Sodium 2.5 MG TAKE 3 TABLETS BY MOUTH 6 DAYS A WEEK AND 2 TABLETS BY MOUTH 1 DAY A WEEK Active Imodium A-D 2 MG 1 tablet as needed Orally Four times a day Not-Taking Triamcinolone Acetonide 0.5 % 1 application to affected area Externally Twice a day for 30 days 10/03/2014 Not-Taking Nitrostat 0.4 MG as directed Sublingu al every 5 mins times 3 for 30 days 11/30/2016 Not-Taking Co Q 10 100 MG 1 capsule with a indy l Orally Once a day for 30 day(s) Active Triamcinolone Acetonide 0.1 % 1 application Externally Once a day for 30 days 07/23/2021 Active Tylenol Extra Strength 500 MG 1/2 tablet Orally every 6 hrs Not-Taking Spironolactone 25 MG 1 tablet Orally Not-Taking Problems Problem Type SNOMED Code ICD Code Onset Dates Problem Status W/U Status Risk Notes Problem CKD (chronic kidney disease) (N18.9) Active confirmed Vital Signs Blood pressure systolic 108 mm Hg 01/11/20 25 Blood pressure diastolic 64 mm Hg 025 Height 69 in 01/10/2025 Weight 200 lbs 01/10/2025 BMI 29.53 kg/m2 01/10/2025 weight is down 5 pounds [facility] 12-20-24 Encounters Encounter Location Date Provider Diagnosis Yonathan Womack MD [address] [place] [address] Drive [address] [place], [place] [phone] 01/10/2025 Yonathan Womack Acute on chronic systolic congestive heart failure I50.23 ; Atrial fibrillation, chronic I48.20 and CKD (chronic kidney disease) N18.9 Assessments Encounter Date Diagnosis (ICD Code) Assessment Notes Treatment Notes Treatment Clinical Notes Section Notes 01/10/2025 Acute on chronic systolic congestive heart failure (ICD-10 - I50.23) has been in and out of the hospital a month ago 01/10/2025 Atrial fibrillation, chronic (ICD-10 - I48.20) has stabilized 01/10/2025 CKD (chronic kidney disease) (ICD-10 - N18.9) had bun and cr drawn today, pending labs Plan Of Treatment Medication Medication Name Sig Start Date Stop Date Notes Furosemide 20 MG 2 tabs twice a day O rally twice a day Entresto 24-26 MG 1 tablet Orally Twice a day Warfarin Sodium 2.5 MG TAKE 3 TABLETS BY MOUTH 6 DAYS A WEEK AND 2 TABLETS BY MOUTH 1 DAY A WEEK Treatment Notes Assessment Notes Acute on chronic systolic co ngestive heart failure has been in and out of the hospital a month ago Atrial fibrillation, chronic has stabili zed CKD (chronic kidney disease) had bun and cr drawn today, pending labs Next Appt Details Follow Up: 2 Months, Reason: Provider Name:Yonathan mendoza, 03/21/2025 07:00:00 AM, [address] [place] [address], [address], [phone], Provider Name:Yonathan mendoza, 04/02/2025 01:45:00 PM, [address] [place] [address], [address], [phone], Provider Name:Yonathan mendoza, 09/17/2025 07:45:00 AM, [address] [place] [address], [address], [phone], Provider Name:Yonathan mendoza, 09/24/2025 01:00:00 PM, [address] [place] [address], [phone], Progress Notes * STEVEN NUNEZDOB: [birth year] (79 yo M)Acc No.[id number]:01/10/2025 Progress Notes Patient: STEVEN SOSA Provider: Kyara Womack MD :1945 A ge:79 Y S ex:Male Date:01/10/2025 Address:[address] [place] [address] , [place] [address] Subjective: * Chief Complaints: * 3 WEEK F/[facility] Risk Codes: 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I11.0 Hypertensive heart disease with heart ksvkrwxA52.20 VTach, vfglexqhdheG36.351 Hemiplegia/Hemiparesis following cerebral infarction affecting right sideN18.30 CKD stage 3 * HPI: S ymptom(s): patient is a 79 yo male her for 3 week follow up visit/ had been to er 4 times due to chf and? got iv lasix. * ROS: G eneral/Constitutional: Denies C hills. A dmits F atigue. D enies F ever. D enies H eadache. E NT: Denies S ore throat. R espiratory: Denies C ough. D enies S hortness of breath at rest. D enies S hortness of breath with exertion. G astrointestinal: Denies D iarrhea. D enies N ausea. * Medical History: * Surgical History: * Hospitalization/Major Diagno stic Procedure: * Medications: T akingCo Q 10 100 MG Capsule 1 capsule [...] MOUTH EVERY DAY 30 MINUTES BEFORE BREAKFAST Ondansetron 4 MG Tablet Disintegrating 1 tablet on the tongue and allow to dissolve Orally twice a day Metoprolol Succinate 50 MG Capsule ER 24 Hour Sprinkle 1 capsule Orally Once a day Warfarin Sodium 2.5 MG Tablet TAKE 3 TABLETS BY MOUTH 6 DAYS A WEEK AND 2 TABLETS BY MOUTH 1 DAY A WEEK Entresto 24-26 MG Tablet 1 tablet Orally Twice a day Furosemide 20 MG Tablet 2 tabs twice a day Orally twice a day LORazepam 0.5 MG Tablet TAKE 1 TABLET BY MOUTH EVERY DAY NEEDED Orally Once a day Taking Co Q 10 100 [...] EVERY DAY 30 MINUTES BEFORE BREAKFAST Taking Ondansetron 4 MG Tablet Disintegrating 1 tablet on the tongue and allow to dissolve Orally twice a day Taking Metoprolol Succinate 50 MG Capsule ER 24 Hour Sprinkle 1 capsule Orally Once a day Taking Warfarin Sodium 2.5 MG Tablet TAKE 3 TABLETS BY MOUTH 6 DAYS A WEEK AND 2 TABLETS BY MOUTH 1 DAY A WEEK Taking Entresto 24-26 MG Tablet 1 tablet Orally Twice a day Taking Furosemide 20 MG Tablet 2 tabs twice a day Orally twice a day Taking LORazepam 0.5 MG Tablet TAKE 1 TABLET BY MOUTH EVERY DAY NEEDED Orally Once a day Not-Taking/PRNSpironolactone 25 MG Tablet 1 [...] Tablet 1/2 tablet Orally every 6 hrs Not- Taking/PRN Imodium A-D 2 MG Tablet 1 tablet as needed Orally Four times a day Not- Taking/PRN Triamcinolone Acetonide 0.5 % Cream 1 application to affected area Externally Twice a day Not-Taking/PRN Nitrostat 0.4 MG Tablet Sublingual as directed Sublingual every 5 mins times 3 Medication List reviewed and reconciled with the patient * Allergies: I VPDye: ConvulsionIlisone: GI UpsetErythromyicin: GI UpsetAdedison: Elevated BPgadolinium: red euesyes[Allergies Verified] Objective: * Vitals: H t: 69, Wt: 200, BMI:29.53, BP:108/64, Wt-k.72. weight is down 5 pounds since 12-20-24. * Examination: G eneral Examination: GENERAL APPEARANCE: a lert, well hydrated, in no distress.? HEAD: n ormocephalic. SKIN: g ood turgor. HEART: r egular rate and rhythm, no murmurs, rubs, gallops.? LUNGS: c lear to auscultation bilaterally. EXTREMITIES: n o edema. Assessment: * Assessment: 1. A cute on chronic systolic congestive heart failure - I50.23 (Primary) 2 .?Atrial fibrillation, chronic - I48.20 3 . C KD (chronic kidney disease) - N18.9 Plan: * Treatment: 2. A trial fibrillation, chronic Continue Warfarin Sodium Tablet, 2.5 MG, TAKE 3 TABLETS BY MOUTH 6 DAYS A WEEK AND 2 TABLETS BY MOUTH 1 DAY A WEEK. Notes: has stabilized 3. C KD (chronic kidney disease) Notes: had bun and cr drawn today, pending labs * Procedure Codes: * Follow Up: 2 Months * * Sign off status: Completed true * Provider: Kyara Womack MD Date: 01/10/2025 Generated for Douglas whitehead/Galina/Justinransmitting on: 03/13/2025 09:58 AM EDT History and Physical Notes * HPI (History of Present Illness) Category Sub-Category Detail Notes Category Not es Symptom(s) patient is a 79 yo male her for 3 week follow up visit/ had been to er 4 times due to chf and got iv lasix Examination Category Sub-Category Detail Notes Category Not es General Examination GENERAL APPEARANCE: alert, w ell hydrated, in no distress HEAD: normocephalic HEART: regular rate and rhy thm, no murmurs, rubs, gallops LUNGS: clear to auscultatio n bilaterally SKIN: good turgor EXTREMITIES: no edema
--- OUTSIDE RECORDS SUMMARY | 2025-03-13 09:58 | XMS_ITS | Clinical Summary ---
Author Organization [address] [place] [address] [place] [phone] Phone Care Team Providers Care Device Engineer Name Role Phone Yonathan Womack MD Primary Care Provider [phone] Allergies Active Allergy Reactions Criticality Noted Date Comments Adenosine High 05/26/2021 Erythromycin Stearate 05/26/2021 Iodinated Contrast Media 05/26/2021 Empagliflozin Other High 12/24/2024 Throat swelling Medications coenzyme Q-10 100 mg capsule Take 1 capsule (100 mg total) by mouth 1 (one) time each day. Active LORazepam (ATIVAN) 0.5 mg tablet Take 0.5 Tablets by mouth 2 times daily. Active omeprazole (PriLOSEC) [address] capsule Take 20 mg by mouth daily. Active warfarin (COUMADIN) 2.5 mg tablet Take 1 Tablet by mouth See Admin Instructions . May cause heavy bleeding. Take at same time every day. Do not change dietary habits. Managed by [facility]. Active furosemide (LASIX) 20 mg tablet Take 2 tablets (40 mg total) by mouth 2 (two) times a day. 180 tablet 3 5 Active simvastatin (ZOCOR) 20 mg tablet TAKE 1/2 TABLET BY MOUTH AT BEDTIME 45 tablet 1 5 Active calcium carbonate (MAALOX ORAL) Take by mouth at bedtime. Active metoprolol succinate (TOPROL-XL) 25 mg 24 hr tabletIndication s:Paroxysmal atrial fibrillation (CMS/HCC V24, CMS/HCC V28) Take 1 tablet (25 mg total) by mouth 1 (one) time each day. Do not crush or chew. 90 tablet 1 5 Active sacubitriL-valsa rtan (Entresto) 24-26 mg per tablet Take 1 tablet by mouth 2 (two) times a day. Hold Entresto if your systolic blood pressure (the top number) is less than 100 mmHg. 180 tablet 1 5 Active spironolactone (ALDACTONE) 25 mg tablet Take 1 tablet (25 mg total) by mouth 1 (one) time each day. 90 tablet 1 5 Active sacubitriL-valsa rtan (Entresto) 24-26 mg per tablet Take 1 tablet by mouth 2 (two) times a day. 4 03/01/20 25 Discontinu ed(Reorder ) metoprolol succinate (TOPROL-XL) 50 mg 24 hr tabletIndication s:Paroxysmal atrial fibrillation (CMS/HCC V24, CMS/HCC V28) Take 1 tablet (50 mg total) by mouth 1 (one) time each day. Do not crush or chew. 90 each 3 5 03/04/20 25 Discontinu ed(Reorder ) spironolactone (ALDACTONE) 25 mg tablet Take 1 tablet (25 mg total) by mouth 1 (one) time each day. 90 tablet 1 5 03/04/20 25 Discontinu ed(Reorder ) sacubitriL-valsa rtan (Entresto) 24-26 mg per tablet Take 1 tablet by mouth 2 (two) times a day. Hold Entresto if your systolic blood pressure (the top number) is less than 100 mmHg. 180 tablet 1 5 03/04/20 25 Discontinu ed(Reorder ) Active Problems Problem [...] he said he would go to the [facility] ER from our office. He has a ride and will not be driving PVD (peripheral vascular disease) ([facility] V24) 08/09/2023 Overview (06/07/2024): Last Assessment & Plan: History of peripheral vascular disease with known carotid stenosis. HFrEF (heart failure with re duced ejection fraction) ([facility] V24, [facility] V28) 01/06/2023 Assessment & Plan (03/04/2025 9:59 AM EDT): Patient has history of HFrEF-EF 25-30% on last echocardiogram. Landed detailed above he was in and out of the hospital multiple times earlier this year. He continues to report that he has been feeling well. He is tolerating spironolactone and he continues on furosemide 40 mg twice daily. Weight is stable. He is avoiding dietary sodium and is following the advice that I gave him last visit. Unfortunately he was unable to tolerate Jardiance but he seems to be doing well on spironolactone, Entresto, metoprolol and his present dose of furosemide. He appears euvolemic on physical examination today. He is scheduled to update an echocardiogram to reassess his cardiac function. At his next office visit we will once again discussed the possibility of AICD if his cardiac function has not improved. For now he is quite satisfied with his current medical regimen and knows to call with any change in his symptoms. We will update labs. I've asked the patient to call if they develop worsening symptoms of heart failure such as increased shortness of breath, new or worsening cough, increased swelling in the legs or ankles, or weight gain of more than 2 pounds in one day or 4 pounds in one week. Assessment & Plan (12/31/2024 11:58 AM EDT): [...] week. Mixed hyperlipidemia 01/06/2023 Assessment & Plan (03/04/2025 9:59 AM EDT): Continue with simvastatin as prescribed. Assessment & Plan (12/31/2024 11:58 AM EDT): Continue with simvastatin as prescribed. Assessment & Plan (12/21/2024 12:00 AM EDT): Continue with simvastatin as prescribed. Chronic atrial fibrillation (CMS/HCC V24, CMS/HC C V28) 05/26/2021 Assessment & Plan (03/04/2025 9:59 AM EDT): Patient has history of chronic atrial fibrillation which is adequately rate controlled on his present dose of metropolol. He continues on warfarin for anticoagulation denies any excessive bleeding or bruising. His [id number] score is 7 representing 11.2% risk for thromboembolism. He will require ongoing anticoagulation. We will reduce metoprolol slightly to 25mg daily. HR 48 bpm today with BP 96/60. No symptoms. Assessment & Plan (12/31/2024 11:58 AM EDT): Patient has history of chronic atrial fibrillation which is adequately rate controlled on his present dose of metropolol. He continues on warfarin for anticoagulation denies any excessive bleeding or bruising. His [id number] score is 7 representing 11.2% risk for thromboembolism. He will require ongoing anticoagulation. Assessment & Plan (12/21/2024 12:00 AM EDT): Patient has history of chronic atrial fibrillation which is adequately rate controlled on his present dose of metropolol. He continues on warfarin for anticoagulation denies any excessive bleeding or bruising. His [id number] score is 7 representing 11.2% risk for thromboembolism. He will require ongoing anticoagulation. Assessment & Plan (07/30/2024 8:19 AM EST): Orders: ECG 12 lead Coronary arteriosclerosis in ewiiaapaayp artery 05/26 Assessment & Plan (03/04/2025 9:59 AM EDT): Possible inferior infarct in the past. No chest pain. Continue BB and statin. I have reviewed with the patient the importance of a heart healthy lifestyle which includes eating a low-fat low-salt diet, getting regular exercise, maintaining a healthy weight, not smoking, and following up with routine medical care. Assessment & Plan (12/31/2024 11:58 AM EDT): [...] Heart valve disorder 05/26/2021 Assessment & Plan (03/04/2025 9:59 AM EDT): Patient has history of mild mitral regurgitation. He is euvolemic on examination today. Patient scheduled to update echocardiogram. Assessment & Plan (12/31/2024 11:58 AM EDT): Patient has history of mild mitral regurgitation. He is euvolemic on examination today. We will update an echocardiogram. Resolved Problems Problem Noted Date Diagnosed Date Resolved Date Dizzinesses 03/15/2023 12/20/2024 Chest pain 07/06/2022 12/20/2024 Overview (06/07/2024): Last Assessment & Plan: Patient's had 2 visits to the emergency room at [facility] for chest pain both times he [...] Encounters Date Type Department Care Team Description 03/04/2025 9:10 AM EDT Office Visit [facility] [address] [facility] [address] [place] [address] Michaela Anguiano NP HFrEF (heart failure with reduced ejection fraction) ([facility] V24, [facility] V28) (Primary Dx); Coronary arteriosclerosis in ewiiaapaayp artery; Chronic atrial fibrillation ([facility] V24, [facility] V28); Mixed hyperlipidemia; Heart valve disorder; Paroxysmal atrial fibrillation ([facility] V24, [facility] V28) 03/01/[address] [facility] [address] [facility] [address] [place] [address] Eddie Granados MD Med Refill (Entresto) 02/13/[address]25 [address] [facility] [address] [facility] [address] [place] [address] Michaela Anguiano, MARNIE Hypotension 01/30/2025 [address] [facility] [address] [facility] [address] [place] [address] Michaela Anguiano NP Weight Gain 01/26/2025 Telephone [facility] [address] [place] [phone] Nina Rainey NP [address] [facility] [address] [facility] [address] [place] [address] Michaela Anguiano NP weight flucuation 01/03/[address] [facility] [address] [facility] [address] [place] [address] Michaela Anguiano, MARNIE Labs Only 12/31/2024 11:30 AM EDT Office Visit [facility] [address] [facility] [address] [place] [address] Michaela Anguiano NP HFrEF (heart failure with reduced ejection fraction) (CMS/HCC V24, CMS/HCC V28) (Primary Dx); Congestive heart failure, unspecified HF chronicity, unspecified heart failure type (CMS/HCC V24, CMS/HCC V28); Heart valve disorder; Coronary arteriosclerosis in ewiiaapaayp artery; Chronic atrial fibrillation (CMS/HCC V24, CMS/HCC V28); Mixed hyperlipidemia 12/25/2024 Telephone [facility] [address] [facility] [address] [place] [address] Michaela Anguiano NP 12/24/[address] [facility] [address] [place] [address] Michaela Anguiano NP Medication Problem; Med Refill 12/23/[address] [facility] [address] [facility] [address] [place] [address] Cristian Zamarripa NP 12/20/2024 11:30 AM EDT Office Visit [facility] [address] [facility] [address] [place] [address] Michaela Anguiano NP HFrEF (heart failure with reduced ejection fraction) (CMS/HCC V24, CMS/HCC V28) (Primary Dx); Atrial fibrillation, unspecified type (CMS/HCC V24, CMS/HCC V28); Coronary arteriosclerosis in ewiiaapaayp artery; Mixed hyperlipidemia 12/20/2024 Telephone [facility] [address] [place] [address] Michaela Anguiano NP Med Refill 12/18/2024 Telephone [facility] [address] [place] [address] Ramin Parekh MD furosemide dosage ? ([facility]) 12/13/2024 Telephone [facility] [address] [place] [address] Sin Farfan MD 12/13/2024 Telephone [facility] [address] [place] [address] Eddie Granados MD Other from Last 3 Months Medical History Medical History Date Comments CVA (cerebral vascular accid ent) ([facility] V24, [facility] V28) DX:CVA (cerebral vascular ac cident) ([facility]) Chronic ischemic heart disease D X:Chronic ischemic [...] Sign Reading Time Taken Comments Blood Pressure 96/60 03/04/2025 9:29 AM EDT Pulse 48 03/04/2025 9:29 AM EDT Temperature - - Respiratory Rate - - Oxygen Saturation 96% 03/04/2025 9:29 AM EDT Inhaled Oxygen Concentration - - Weight 88.9 kg (196 lb) 03/04/2025 9:29 AM EDT Height 177.8 cm (5' 10 ) 03/04/2025 9:29 AM EDT Body Mass Index 28.12 03/04/2025 9:29 AM EDT Plan of Treatment Upcoming Encounters Date Type Department Care Team (Late st Contact Info) Description 04/02/2025 11:00 AM EDT Ancillary Procedure [facility] [address] [place] [phone] 06/17/2025 11:30 AM EDT Office Visit [facility] [address] [place] [address] Michaela Anguiano NP [address] [place] [address] [place], [place] [phone] Health Maintenance Due Date Last Done Comments DTaP,Tdap,and Td Vaccines (1 - Tdap) 1964 Pneumococcal Vaccine: 50+ Ye ars (1 of 2 - PCV) 1964 Zoster Vaccines (1 of 2) 01/22/1996 RSV Immunization Adult Patie nts (1 - 1-dose 75+ series) 2021 Cholesterol Screening (Lipid Panel) 07/25/2022 Falls Risk Assessment 07/25/2022 Hepatitis C Screening 07/25/2022 Medicare Annual Wellness Visit 07/25/2022 Social Influencers of Health Screening 07/25/2022 Hypertension/CHF/CAD Annual BMP Blood Test 08/01/2022 COVID-19 Vaccine (2023-2 5 season) 2024 Depression Screening 08/22/2024 Influenza Vaccine (#1) 2025 HIB Vaccines Aged [...] 11:4 2 AM EDT us Michaela Anguiano 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
[2025-03-13 11:19] LABS: Anion Gap 12 (12-20); Blood Urea Nitrogen 28 mg/dL (9-16); Calcium 9.4 mg/dL (8.4-10.2); Carbon Dioxide 27 mmol/L (22-29); Chloride 104 mmol/L (96-108); Estimated Glomerular Filt Rate > 60; Potassium 3.5 mmol/L (3.3-5.1); Sodium 139 mmol/L (135-145)
== END 2025-03-13 09:27 | disposition home or self-care (01) ==
LOC: HO.LAB 09:26
PROVIDERS: PCP Internal Medicine; Visit Provider Nurse Practitioner
DX: I50.20 Unspecified systolic (congestive) heart failure (principal)
CPT/HCPCS: 36415; 80048

== ENCOUNTER 2025-03-21 09:00 | Outpatient (REF) | payer MEDICARE, MEDICAID, SELFPAY ==
[2025-03-21 10:12] LABS: Hemoglobin A1C 155.4887 umol/L; Total Hemoglobin (HGBA1C) 3710.9862 umol/L
[2025-03-21 10:22] LABS: Alanine Aminotransferase 20 U/L (0-40); Albumin Level 4.2 g/dL (3.5-5.0); Alkaline Phosphatase 78 U/L (39-117); Aspartate Amino Transferase 21 U/L (5-37); Cholesterol 134 mg/dL (<200); HDL Cholesterol 33 mg/dL (>40); Total Protein 6.6 g/dL (6.5-8.0); Triglycerides 117 mg/dL (<150)
[2025-03-21 11:11] LABS: Reflex LDLD? No
== END 2025-03-21 09:01 | disposition home or self-care (01) ==
LOC: HO.LNP 09:00
PROVIDERS: PCP Internal Medicine; Visit Provider Internal Medicine Medical Oncology
DX: R73.03 Prediabetes (principal); E78.00 Pure hypercholesterolemia, unspecified
CPT/HCPCS: 80061; 80076; 82947; 83036; 85610; 99211

== ENCOUNTER 2025-03-21 09:00 | Outpatient (AMB) | payer MEDICARE, MEDICAID, SELFPAY ==
--- OUTSIDE RECORDS SUMMARY | 2025-01-10 05:15 | XMS_ITS ---
Author Organization Yonathan Womack MD Address [address] [place] [phone] Care Team Providers Care Kieselguhr Regenerator Operator Name Role Phone Yonathan Womack Primary [...] kg/m2 01/10/2025 weight is down 5 pounds [facility] 12-20-24 Encounters Encounter Location Date Provider Diagnosis Yonathan Womack MD [address] [place] [address] Drive [address] [place], [place] [phone] 01/10/2025 Yonathan Womack Acute on chronic systolic [...] Up: 2 Months, Reason: Provider Name:Yonathan mendoza, 04/02/2025 09:15:00 AM, [address] [place] [address], [address], [phone], Provider Name:Yonathan mendoza, 09/17/2025 07:45:00 AM, [address] [place] [address], [address], [phone], Provider Name:Yonathan mendoza, 09/24/2025 01:00:00 PM, [address] [place] [address], [address], [phone], Progress Notes * STEVEN NUNEZDOB: [birth year] (79 yo M)Acc No.[id number]:01/10/2025 Progress Notes Patient: STEVEN SOSA Provider: Kyara Womack MD :1945 A ge:79 Y S ex:Male Date:01/10/2025 Address:[address] [place], [place] [phone] Subjective: * Chief Complaints: * 3 WEEK F/[facility] Risk Codes: 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I11.0 Hypertensive heart disease with heart ozqsfomL93.20 VTach, yxbpjmhmbisG05.351 Hemiplegia/Hemiparesis following cerebral infarction affecting right sideN18.30 CKD stage 3 * HPI: S ymptom(s): patient is a 79 yo male her for 3 week follow up visit/ had been to er 4 times due to chf and? got iv lasix. * ROS: G eneral/Constitutional: Denies Brenden hills. A dmits F atigue. D enies F ever. D enies H eadache. E NT: Denradha S ore throat. R espiratory: Kervin Wilcox ough. D enradha S hortness of breath at rest. D enies S hortness of breath with exertion. G astrointestinal: Kervin D iarrhea. D enies N ausea. * [...] true * Provider: Kyara Womack MD Date: 0 01/10/2025 Generated for Douglas whitehead/Galina/Madyitting on: 0 03/21/2025 09:20 AM EDT History and Physical Notes * [...]
[2025-03-21 09:20] LABS: Prothrombin Time Whole Bld POC 34.8 sec (11.1-13.5); ~PT, ~INR - Anti Coag Clinic 2.9 (0.9-1.1)
--- NOTE | 2025-03-21 09:24 | MHC.OFFVISCO ---
Intake Intake Visit Reasons: Anticoagulation Allergies adenosine Allergy (Severe, Verified 03/21/25 09:14) cardiac, elevated BP, Stroke Gadolinium-Containing Contrast Medi Allergy (Severe, Verified 03/21/25 09:14) red eyes Iodinated Contrast Media (CONTRAST, IV) Allergy (Severe, Verified 03/21/25 09:14) Seizure carvedilol Allergy (Intermediate, Verified 03/21/25 09:14) disorientation erythromycin base Adverse Reaction (Unknown, Verified 03/21/25 09:14) Gut pain , Abdominal Pain, GI upset Medication List - Last Reconciled 03/21/25 by Rhonda Smith, RN carboxymethylcellulose sodium 0.5% (Refresh Tears) 1 drp ophthalmic (eye) BID coenzyme Q10 (CoQ-10) 100 mg PO DAILY furosemide 40 mg PO BID lorazepam 0.25 mg PO BID PRN metoprolol succinate ER 50 mg PO DAILY omeprazole 20 mg PO DAILY@0630 ondansetron 2 mg PO Q6-8H PRN sacubitril-valsartan 24-26 mg (Entresto) 1 tab PO BID simvastatin 10 mg PO DAILY spironolactone 12.5 mg PO QAM warfarin See Protocol 1-3 TABS DAILY CURRENT DOSE 7.5MG X 5 DAYS/ 5MG X 2 DAYS Nursing Note NO CP,SOB,DIET/MED CHANGES,FALLS OR SX OF BLEEDING. CONTINUE PRESENT DOSE AND FOLLOW-UP IN 4 WEEKS. 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
== END 2025-03-21 09:27 | disposition home or self-care (01) ==
LOC: HO.ACS 09:01
PROVIDERS: PCP Internal Medicine; Visit Provider Internal Medicine Medical Oncology
DX: Z79.01 Long term (current) use of anticoagulants (principal)

== ENCOUNTER → 2025-04-02 20:34 | Outpatient (BNV) | payer MEDICARE, MEDICAID, SELFPAY | PROVIDERS: Emergency Provider Emergency Medicine; PCP Internal Medicine; Visit Provider Radiology Neuroradiology | DX: J90 Pleural effusion, not elsewhere classified (principal) | CPT/HCPCS: 71045 ==

== ENCOUNTER 2025-04-02 21:18 | Inpatient (IN) | payer MEDICARE, MEDICAID, SELFPAY ==
--- NOTE | 2025-04-02 | ECG_ITS ---
Test Reason : DYSPNEA Blood Pressure : */* mmHG Vent. Rate : 89 BPM Atrial Rate : 89 BPM P-R Int : 240 ms QRS Dur : 124 ms QT Int : 402 ms P-R-T Axes : -19 -51 70 degrees QTcB Int : 489 ms Sinus rhythm with 1st degree A-V block with occasional Premature ventricular complexes and Premature atrial complexes Left anterior fascicular block Abnormal ECG When compared with ECG of 18-Dec-2024 01:00, Premature ventricular complexes are now Present Premature atrial complexes are now Present Right bundle branch block is no longer Present Referred By: Generic ED Physician Electronically Signed By: Tyler Mattson
--- NOTE | ~2025-04-02 | XR_ITS ---
CLINICAL HISTORY: sob 1 view chest x-ray Comparison: Chest x-ray from 12/14/2024 Findings: New developing small left pleural effusion. Bilateral pulmonary opacities are nonspecific and may reflect pneumonitis, pulmonary edema, multifocal pneumonia. No pneumothorax in this portable image. Mild cardiomegaly redemonstrated. Degenerative changes include partially imaged shoulders and AC joints. IMPRESSION: 1. Small left pleural effusion. 2. Bilateral pulmonary opacities nonspecific and may reflect pulmonary edema or pneumonitis. Please consider attention on follow-up to ensure resolution. This document has been electronically signed by: Erick Thurman MD on 04/02/2025 22:21:12
[2025-04-02 21:27] VITALS: BP 130/80; PULSE 80; O2SAT 99; BMI 29.1
[2025-04-02 21:34] VITALS: BP 96/58; PULSE 92; RESP 20; TEMP 35.9; O2SAT 94
--- NOTE | 2025-04-02 21:38 | ED_ITS ---
HPI - SOB/Dyspnea General Chief Complaint: Dyspnea Stated Complaint: SOB Time Seen by Provider: 04/02/25 21:37 History of Present Illness ED Provider: Jono Torres MD HPI Narrative: Upon noting the patient's vital signs at 21:39 I have activated sepsis added blood cultures antibiotics. Patient has a history of HFrEF declined ICD, just went for an echo today is having intermittent shortness of breath on exertion over the past few days specifically this evening describing orthopnea. No chest pain. Denied call for subjective fever Related Data Home Medications ?Medication ?Instructions ?Recorded ?Confirmed lorazepam 0.5 mg tablet 0.5 mg PO BID PRN Anxiety 04/03/25 omeprazole 20 mg capsule,delayed 20 mg PO DAILY@0630 0 11/14/20 04/03/25 release coenzyme Q10 100 mg capsule 100 mg PO DAILY 04/14/21 0 04/03/25 (CoQ-10) carboxymethylcellulose sodium 0.5 1 drp ophthalmic (ey e) BID 11/30/22 04/03/25 % eye drops (Refresh Tears) simvastatin 20 mg tablet 10 mg PO DAILY 11/19/2403/22 furosemide 20 mg tablet 40 mg PO BID@0700,1400 12/1704/03/25 spironolactone 25 mg tablet 25 mg PO DAILY@1200 04/03/25 metoprolol succinate 25 mg 12.5 mg PO DAILY PRN Hypert ension 04/02/25 04/03/25 tablet,extended release 24 hr aluminum-mag hydroxide-simethicone 5 ml PO 5XD PRN Ind igestion 04/03/25 04/03/25 200 mg-200 mg-20 mg/5 mL oral susp metoprolol succinate 25 mg 25 mg PO DAILY 04/03/25 tablet,extended release 24 hr warfarin 2.5 mg tablet 5 mg PO SUWE@1800 04/03/25 0 04/03/25 warfarin 2.5 mg tablet 7.5 mg PO MOTUTHFRSA@1800 04/03/25 Previous Rx's ?Medication ?Instructions ?Recorded sacubitril 24 mg-valsartan 26 mg 1 tab PO BID #60 tabs 12/01/22 tablet (Entresto) Allergies Allergy/AdvReac Type Severity Reaction Status Date / Time adenosine Allergy Severe cardiac, Verified 04/02/25 21:30 elevated BP, Stroke Gadolinium-Containing Allergy Severe red eyes Verified 04/02/25 21:30 Contrast Medi Iodinated Contrast Media Allergy Severe Seizure Verified 04/02/25 21:30 (CONTRAST, IV) carvedilol Allergy Intermediate disorientat Verified 04/02/25 21:30 ion erythromycin base AdvReac Unknown Gut Verified 04/02/25 21:30 pain , Abdominal Pain, GI upset PMFSH Past Medical History Medical History Acute on chronic combined systolic and diastolic CHF (congestive heart failure) Orthopnea Anxiety Myocardial infarct, old CHF (congestive heart failure) CVA (cerebral vascular accident) A-fib Surgical History History of appendectomy Social History Social History Household Members: None Housing: House Do you presently have visiting nurse or other home services: Yes (dressing, laundry, cleaning, cooking, etc) Alcohol intake: former Patient Tobacco Use Status: Former Tobacco user service: Yes Current occupational status: disabled Physical Exam 2 Exam: Exam: EXAM: Gen: Alert, awake, well appearing, well hydrated. Head: Atraumatic Eyes: Anicteric, Normal conjunctiva. ENT: Moist mucosa, no pallor. ? Neck: Supple. Skin: ?No observable rash or bruising on exposed or examined skin Respiratory: Mild tachypnea rate 24. Diminished breath sounds bilaterally Cardiovascular: Regular rate and rhythm. No murmurs or rub. Well perfused periphery, warm extremities. No edema. ? Abdominal: No focal tenderness. Soft, no objective distension. No palpable masses or obvious organomegaly. ?No guarding, no rebound tenderness or other peritoneal findings. : No flank tenderness. Neuro: Alert. Gross movement of all extremities intact. ? Psych: Calm. Cooperative. MSK: No grossly visible deformity. Vital signs: See flowsheet Vital Signs: Vital Signs: Last Vital Signs Temp 97.9 F 04/03/25 12:00 Pulse 97 04/03/25 12:00 Resp 18 04/03/25 12:00 BP 111/61 04/03/25 12:00 Pulse Ox 94 04/03/25 12:00 O2 Del Method Room Air 04/03/25 12:00 BMI result Body Mass Index 29.1 Medications Administered Generic Name Dose Route Start Last Admin Trade Name Freq PRN Reason Stop Dose Admin Acetaminophen 975 mg 04/03/25 02:00 04/03/25 03:08 Acetaminophen 325 Mg Tablet PO 975 mg Q6H PRN Administration Pain, Mild 1-3,fever,headache Sodium Chloride 3 ml 04/03/25 08:00 04/03/25 08:25 0.9 % Sodium Chloride Flush 3 Ml Syringe IVFLUSH 3 ml QSHIFT TOMI Administration Discontinued Medications Generic Name Dose Route Start Last Admin Trade Name Freq PRN Reason Stop Dose Admin Ceftriaxone Sodium 1 gm 04/02/25 22:23 04/02/25 22:33 Ceftriaxone Sodium 1 Gm Vial IVPUSH 04/02/25 22:24 1 gm ONCE ONE Administration Clonazepam 0.5 mg 04/03/25 01:01 04/03/25 01:15 Clonazepam 0.5 Mg Tablet PO 04/03/25 01:02 0.5 mg ONCE ONE Administration Furosemide 40 mg 04/02/25 22:23 04/02/25 22:33 Furosemide 40 Mg/4 Ml Vial IVPUSH 04/02/25 22:24 40 mg STAT STA Administration Protocol Furosemide 40 mg 04/03/25 00:43 04/03/25 00:53 Furosemide 40 Mg/4 Ml Vial IVPUSH 04/03/25 00:44 40 mg STAT STA Administration Protocol Albumin Human 50 mls @ 100 mls/hr 04/02/25 22:23 04/02/25 23:04 Kedbumin 25 % IV 04/02/25 22:52 Infused ONCE ONE Infusion Medical Decision Making Medical Decision Making MDM Narrative: Medical Decision Makin-year-old male with HFrEF shortness of breath on exertion worsening. Bilateral pleural effusions. Severe reduced LV function probably baseline. Moderate simple pericardial effusion without tamponade probably related to fluid overload and 3rd spacing. 96.6 temp borderline low blood pressure slight tachypnea patient meets SIRS criteria he is dyspneic no obvious infectious source but sepsis activated antibiotics. Albumin due to patient having contraindications for crystalloid. Map is not below 65 Troponin x2 negative excluding NC Unlikely sepsis however patient met criteria. More likely CHF exacerbation with orthopnea dyspnea on exertion bilateral pleural effusions and pericardial effusion. Preliminary Favored Differential Diagnosis: Exacerbation/severe acute decompensated heart failure with reduced ejection fraction, pleural effusions, a dwight additional considered etiologies Testing Interpreted Independently point of care ultrasound echo see above ECG: Sinus rhythm rate 89. First-degree heart block. [place] 240 PVCs. No acute ischemic changes similar overall to November 2024 Radiology or Lab testing Results Reviewed: Chest x-ray with a effusions, pulmonary edema Consults: Not Applicable Independent Historians/External Chart Reviews: Not Applicable Social Determinants of Health Impacting MDM/Planning: Not Applicable Lab Data 04/03/25 04:41 04/03/25 04:41 Labs: Lab Results 04/02/25 04/02/25 04/02/25 Range/Units 22:00 22:01 22:08 WBC 8.4 (4.8-10.8) X10*3/uL RBC 4.32 L (4.60-5.80) X10*6/uL Hgb 13.3 L (14.0-18.0) g/dl Hct 38.1 L (42.0-52.0) % MCV 88.2 (80.0-98.0) fL MCH 30.8 (27.0-33.0) pg MCHC 34.9 (31.0-36.0) g/dl RDW 14.0 (11.0-16.0) % Plt Count 159 L (160-400) X10*3/uL MPV 10.8 (9.4-12.4) fL Immature Gran % (Auto) 0.2 (0.0-0.4) % Neut % (Auto) 63.2 (45-73) % Lymph % (Auto) 27.4 (20-40) % Weber % (Auto) 8.2 (2-11) % Eos % (Auto) 0.6 (0-4) % Baso % (Auto) 0.4 (0-2) % Lymph # (Auto) 2.3 (1.2-4.9) X10*3/uL Weber # (Auto) 0.7 (0.1-1.2) X10*3/uL Eos # (Auto) 0.1 (0.0-0.4) X10*3/uL Baso # (Auto) 0.0 (0.0-0.2) X10*3/uL Abs Immat Gran (auto) 0.02 (0.00-0.03) X10*3/uL Absolute Neuts (auto) 5.3 (2.0-8.3) x10*3/uL Absolute Nucleated RBC 0.000 (0.0-0.012) X10*3/uL Nucleated RBC % (auto) 0.0 (0.0-0.2) /100WBC Sodium 135 (135-145) mmol/L Potassium 3.6 (3.3-5.1) mmol/L Chloride 101 (96-108) mmol/L Carbon Dioxide 24 (22-29) mmol/L Anion Gap 14 (12-20) BUN 23 H (9-16) mg/dL Creatinine 1.11 (0.5-1.4) mg/dL Estim Creat Clear Calc 59.6 Estimated GFR > 60 Random Glucose 130 H (60-115) mg/dL Lactic Acid 1.7 (0.5-2.0) mmol/L Calcium 9.1 (8.4-10.2) mg/dL Total Bilirubin 0.6 (0.0-1.0) mg/dL AST 21 (5-37) U/L ALT 17 (0-40) U/L Alkaline Phosphatase 84 (39-117) U/L Troponin I High Sens 49.1 H (<3.5-35.0) ng/L B-Natriuretic Peptide 2133 H (<100) pg/mL Total Protein 6.3 L (6.5-8.0) g/dL Albumin 3.9 (3.5-5.0) g/dL Influenza Type A (PCR) NEGATIVE (Negative) Influenza Type B (PCR) NEGATIVE (Negative) RSV RNA Qual (PCR) NEGATIVE (Negative) SARS-CoV-2 RNA (RT-PCR) NEGATIVE (Negative) 04/02/25 Range/Units 23:32 WBC (4.8-10.8) X10*3/uL RBC (4.60-5.80) X10*6/uL Hgb (14.0-18.0) g/dl Hct (42.0-52.0) % MCV (80.0-98.0) fL MCH (27.0-33.0) pg MCHC (31.0-36.0) g/dl RDW (11.0-16.0) % Plt Count (160-400) X10*3/uL MPV (9.4-12.4) fL Immature Gran % (Auto) (0.0-0.4) % Neut % (Auto) (45-73) % Lymph % (Auto) (20-40) % Weber % (Auto) (2-11) % Eos % (Auto) (0-4) % Baso % (Auto) (0-2) % Lymph # (Auto) (1.2-4.9) X10*3/uL Weber # (Auto) (0.1-1.2) X10*3/uL Eos # (Auto) (0.0-0.4) X10*3/uL Baso # (Auto) (0.0-0.2) X10*3/uL Abs Immat Gran (auto) (0.00-0.03) X10*3/uL Absolute Neuts (auto) (2.0-8.3) x10*3/uL Absolute Nucleated RBC (0.0-0.012) X10*3/uL Nucleated RBC % (auto) (0.0-0.2) /100WBC Sodium (135-145) mmol/L Potassium (3.3-5.1) mmol/L Chloride (96-108) mmol/L Carbon Dioxide (22-29) mmol/L Anion Gap (12-20) BUN (9-16) mg/dL Creatinine (0.5-1.4) mg/dL Estim Creat Clear Calc Estimated GFR Random Glucose (60-115) mg/dL Lactic Acid (0.5-2.0) mmol/L Calcium (8.4-10.2) mg/dL Total Bilirubin (0.0-1.0) mg/dL AST (5-37) U/L ALT (0-40) U/L Alkaline Phosphatase (39-117) U/L Troponin I High Sens 49.0 H (<3.5-35.0) ng/L B-Natriuretic Peptide (<100) pg/mL Total Protein (6.5-8.0) g/dL Albumin (3.5-5.0) g/dL Influenza Type A (PCR) (Negative) Influenza Type B (PCR) (Negative) RSV RNA Qual (PCR) (Negative) SARS-CoV-2 RNA (RT-PCR) (Negative) Procedures Procedure Narrative Procedure Narrative: EMERGENCY ULTRASOUND INTERPRETATION-Limited Echocardiography [This study was ordered, performed, and interpreted by myself. The study reveals: Impression: Severely reduced LV FUNCTION, NO RV DYSFUNCTION, moderate PERICARDIAL EFFUSION no tamponade] [Emergent Cardiac for Indication: Views Used: PLAX, PSSA, A4, SX, IVC Pericardial Effusion/Tamponade Findings: Moderate size pericardial effusion simple appearing no tamponade RV Dilation (> LV diam in 4ch apical): NONE Global LV Fxn: Severely reduced IVC Dilation and Resp Variation: Plethoric Performed by: MD Brian Images were stored CPT:28747] EMERGENCY ULTRASOUND INTERPRETATION-Point of Care Thoracic: IMPRESSION: Bilateral small to moderate pleural effusions with atelectasis Indication: Dyspnea Findings: Right Pleural 2ICS: ?POSITIVE SLIDING, occasional apical B-lines Right PLAPS: Small to moderate effusion Left Pleural 2ICS: POSITIVE SLIDING, occasional apical B-lines Left PLAPS: ?Small to moderate effusion Performed by: Jono Torres MD ? Images were stored CPT: 36897,11605,18746] Discharge Plan Discharge Clinical Impression: Acute decompensated heart failure Patient Disposition: Admitted As Inpatient Interventions: Admission Worksheet (ED) Last Done: 04/03/25 05:17 Discharge Date/Time: 04/03/25 10:26
--- NOTE | 2025-04-02 21:40 | PC.NURSE ---
pt states he had an echo performed today.
[2025-04-02 22:06] LABS: MANUAL DIFF FLAG NO
[2025-04-02 22:08] LABS: Hematocrit 38.1 % (42.0-52.0); Hemoglobin 13.3 g/dl (14.0-18.0); Imm Gran Abs Auto 0.02 X10*3/uL (0.00-0.03); Imm Gran Pct Auto 0.2 % (0.0-0.4); Lymphocytes Absolute Auto 2.3 X10*3/uL (1.2-4.9); Mean Corpuscular HGB Conc 34.9 g/dl (31.0-36.0); Mean Corpuscular Hemoglobin 30.8 pg (27.0-33.0); Mean Corpuscular Volume 88.2 fL (80.0-98.0); NRBC Abs Auto 0.000 X10*3/uL (0.0-0.012); NRBC Pct Auto 0.0 /100WBC (0.0-0.2); Platelet Count 159 X10*3/uL (160-400); Red Blood Count 4.32 X10*6/uL (4.60-5.80); White Blood Count 8.4 X10*3/uL (4.8-10.8)
[2025-04-02 22:25] LABS: Alanine Aminotransferase 17 U/L (0-40); Albumin Level 3.9 g/dL (3.5-5.0); Alkaline Phosphatase 84 U/L (39-117); Anion Gap 14 (12-20); Aspartate Amino Transferase 21 U/L (5-37); Blood Urea Nitrogen 23 mg/dL (9-16); Calcium 9.1 mg/dL (8.4-10.2); Carbon Dioxide 24 mmol/L (22-29); Chloride 101 mmol/L (96-108); Creatinine Clr Calc Pharmacy 59.6; Estimated Glomerular Filt Rate > 60; Potassium 3.6 mmol/L (3.3-5.1); Sodium 135 mmol/L (135-145); Total Protein 6.3 g/dL (6.5-8.0)
[2025-04-02 22:32] LABS: Troponin-I High Sensitivity 49.1 ng/L (<3.5-35.0)
[2025-04-02 22:33] VITALS: BP 107/71
[2025-04-02] MEDS: Furosemide 40 MG/4 ML VIAL IVPUSH (22:33)
[2025-04-02] MEDS: Albumin Human 25 % 50 ML 100 ML IV (22:33)
[2025-04-02 22:34] LABS: B Type Natriuretic Peptide 2133 pg/mL (<100)
[2025-04-02 22:38] VITALS: BP 107/71; PULSE 109; RESP 20; TEMP 36.2; O2SAT 97
--- NOTE | 2025-04-02 22:45 | PC.NURSE ---
pt medicated per MAR.
[2025-04-02 22:52] LABS: Resp Syncy Virus RNA Qual PCR NEGATIVE (Negative); SARS COV2 PCR INHOUSE NEGATIVE (Negative)
[2025-04-02 23:15] VITALS: BP 108/70; PULSE 97; RESP 26; O2SAT 95
[2025-04-02 23:35] VITALS: BP 106/68
[2025-04-02 23:57] LABS: Troponin-I High Sensitivity 49.0 ng/L (<3.5-35.0)
[2025-04-03] VITALS (7 sets, daily range): BP systolic 90–124; BP diastolic 54–77; PULSE 72–114; RESP 16–18; TEMP 36.4–36.8; O2SAT 93–97; BMI 29.9
--- NOTE | 2025-04-03 | ECG_ITS ---
Test Reason : ?afib Blood Pressure : */* mmHG Vent. Rate : 95 BPM Atrial Rate : 98 BPM P-R Int : 236 ms QRS Dur : 120 ms QT Int : 374 ms P-R-T Axes : -62 -52 70 degrees QTcB Int : 469 ms NSR with first degree AV block with frequent PVCs. Left anterior fascicular block Minimal voltage criteria for LVH, may be normal variant ( Mark product ) Abnormal ECG When compared with ECG of 02-Apr-2025 21:38, Frequent PVCs present Referred By: Tyler Mattson Electronically Signed By: Tyler Mattson
[2025-04-03] MEDS: Furosemide 40 MG/4 ML VIAL IVPUSH (00:53)
--- NOTE | 2025-04-03 01:02 | PC.NURSE ---
PT MEDICATED PER OCT. COMPLAINS OF ANXIETY, INABILITY TO SLEEP AND A HEADACHE STARTING. PROVIDER AWARE, AWAITING NEW ORDERS.
--- NOTE | 2025-04-03 01:59 | PC.NURSE ---
Medicated per MAR for anxiety.
--- NOTE | 2025-04-03 02:00 | PM.IMHP ---
History of Present Illness Date of Service: 04/03/25 Attending physician on admission: Beatrice Reddy Chief Complaint: SOB Patient is a 80-year-old male with a past medical history significant for HFrEF (echo 1124 with EF of 25-30% with grade 1 diastolic dysfunction), patient declines ICD, CKD 3A, paroxysmal AFib on warfarin, anxiety and GERD who presented to the ED due to shortness of breath over the past 2 weeks worse with exertion. He reports that associated anxiety but denies any chest pain. States that when he exerts himself I feel like I have a bag over my head . He has had some nausea but no vomiting. He reports he was recently hospitalized at [facility] from 03/27-03/28 for a fib and CHF. Review of Systems Constitutional: Constitutional: Denies body ache(s), Denies chills, Reports fatigue, Denies fever(s) and Denies headache(s) Eyes: Eyes: Denies change in vision ENT: Denies headache(s) Cardiovascular: Cardiovascular: Denies chest pain, Denies rapid heart rate, Denies leg edema, Denies lightheadedness and Reports dyspnea Respiratory: Respiratory: Denies chest congestion, Denies cough, Reports dyspnea and Denies wheezing Gastrointestinal: Gastrointestinal: Denies abdominal pain, Reports nausea and Denies vomiting Genitourinary: Genitourinary: Denies dysuria Musculoskeletal: Musculoskeletal: Denies myalgias Integumentary/Breasts: Skin/Breast: Denies rash Neurologic: Denies confusion and Denies headache(s) Psychiatric: Psychiatric: Denies confusion Endocrine: Endocrine: Reports fatigue Hematologic/Lymphatic: Hematologic/Lymphatic: Denies easy bleeding and Denies easy bruising Allergic/Immunologic: Allergic/Immunologic: Denies wheezing [facility] Medical History Acute on chronic combined systolic and diastolic CHF (congestive heart failure) Orthopnea Anxiety Myocardial infarct, old CHF (congestive heart failure) CVA (cerebral vascular accident) A-fib Functional capacity: independent ambulation Surgical History History of appendectomy Social History Household Members: None Housing: House Do you presently have visiting nurse or other home services: Yes Alcohol intake: former Patient Tobacco Use Status: Never used Tobacco Smoked in Last 30 Days: No Use of substances other than those prescribed or required for medical reasons: No Advance Directives: No Advance Directives Information Provided: No service: Yes Current occupational status: disabled Narrative: no smoking, etoh or drug use Meds Allergies Allergy/AdvReac Type Severity Reaction Status Date / Time adenosine Allergy Severe cardiac, Verified 04/02/25 21:30 elevated BP, Stroke Gadolinium-Containing Allergy Severe red eyes Verified 04/02/25 21:30 Contrast Medi Iodinated Contrast Media Allergy Severe Seizure Verified 04/02/25 21:30 (CONTRAST, IV) carvedilol Allergy Intermediate disorientat Verified 04/02/25 21:30 ion erythromycin base AdvReac Unknown Gut Verified 04/02/25 21:30 pain , Abdominal Pain, GI upset Home Medications ?Medication ?Instructions ?Recorded ?Confirmed ?Last Taken ?Type lorazepam 0.5 mg tablet 0.25 mg PO BID PRN Anxiety 11/14/20 04/02/25 12/09/24 History omeprazole 20 mg capsule,delayed 20 mg PO DAILY@0630 11/14/20 04/02/25 12/09/24 History release coenzyme Q10 100 mg capsule 100 mg PO DAILY 04/14/21 04/02/25 12/09/24 History (CoQ-10) carboxymethylcellulose sodium 0.5 1 drp ophthalmic (eye) BID 11/30/22 04/02/25 12/09/24 History % eye drops (Refresh Tears) simvastatin 20 mg tablet 10 mg PO DAILY 11/19/24 04/02/25 12/09/24 History furosemide 20 mg tablet 40 mg PO BID 12/17/24 04/02/25 Unknown History ondansetron 4 mg disintegrating 2 mg PO Q6-8H PRN 12/17/24 04/02/25 Unknown History tablet warfarin 2.5 mg tablet 7.5 mg PO .COMPLEX 01/03/25 04/02/25 Unknown History spironolactone 25 mg tablet 12.5 mg PO QAM 01/17/25 04/02/25 Unknown History metoprolol succinate 25 mg 25 mg PO DAILY 04/02/25 04/02/25 Unknown History tablet,extended release 24 hr Physical Exam Vital Signs and Narrative: Vital Signs: Last Vital Signs Temp 97.2 F 08/12/25 22:38 Pulse 97 04/02/25 23:15 Resp 26 H 04/02/25 23:15 BP 105/58 L 04/03/25 00:53 Pulse Ox 95 04/02/25 23:15 O2 Del Method Room Air 04/02/25 23:15 BMI result Body Mass Index 29.1 General: AOx3, no acute distress Resp: crackles bilateral lungs, no wheezing CVS: tachy, regular rhythm, no murmur GI: +BS, NT, no distention Skin: Warm, dry Neuro: Cranial nerves II-XII grossly intact bilaterally. Motor grossly intact bilaterally Extremities: No LE edema Psych: Appropriate affect Const: General: No confusion Orientation/consciousness: No confusion Neuro: General: No confusion Results Labs 04/02/25 22:00 04/02/25 22:00 Labs: Laboratory Results - last 24 hr 04/02/25 04/02/25 04/02/25 22:00 22:01 22:08 MCV 88.2 MCH 30.8 MCHC 34.9 RDW 14.0 Plt Count 159 L MPV 10.8 Immature Gran % (Auto) 0.2 Neut % (Auto) 63.2 Lymph % (Auto) 27.4 [place] % (Auto) 8.2 Eos % (Auto) 0.6 Baso % (Auto) 0.4 Lymph # (Auto) 2.3 [place] # (Auto) 0.7 Eos # (Auto) 0.1 Baso # (Auto) 0.0 Abs Immat Gran (auto) 0.02 Absolute Neuts (auto) 5.3 Absolute Nucleated RBC 0.000 Nucleated RBC % (auto) 0.0 Anion Gap 14 Estim Creat Clear Calc 59.6 Estimated GFR > 60 Random Glucose 130 H Lactic Acid 1.7 Calcium 9.1 Total Bilirubin 0.6 AST 21 ALT 17 Alkaline Phosphatase 84 B-Natriuretic Peptide 2133 H Total Protein 6.3 L Albumin 3.9 Influenza Type A (PCR) NEGATIVE Influenza Type B (PCR) NEGATIVE RSV RNA Qual (PCR) NEGATIVE SARS-CoV-2 RNA (RT-PCR) NEGATIVE Assessment and Plan (1) SIRS (systemic inflammatory response syndrome): Status: Acute (2) Acute on chronic combined systolic and diastolic CHF (congestive heart failure): Status: Acute (3) Pericardial effusion: Status: Acute (4) CKD (chronic kidney disease) stage 3, GFR 30-59 ml/min: Status: Acute Plan Patient is a 80-year-old male with a past medical history significant for HFrEF (echo 1124 with EF of 25-30% with grade 1 diastolic dysfunction), patient declines ICD, CKD 3A, paroxysmal AFib on warfarin, anxiety and GERD who presented to the ED due to shortness of breath over the past 2 weeks worse with exertion. SIRS no sepsis - no leukocytosis, temperature of 96.6 degrees, tachycardic and tachypneic, lactic acid normal, blood cultures x2 pending, no infection identified - received albumin in ED - chest x-ray with small left pleural effusion and pulmonary edema - BNP elevated at 2133 - COVID/flu/RSV negative - EKG nonischemic, troponins flat at 49 - initially started on ceftriaxone due to concern for sepsis, no infection identified therefore no further antibiotics needed at this time - echo - monitor CBC and BMP Acute on chronic combined systolic and diastolic CHF with moderate pericardial effusion and small L pleural effusion - last echo from 06/2024 with EF of 25-30% with grade 1 diastolic dysfunction - patient went for echocardiogram yesterday however this was done at a different facility and we are unable to access the results - bedside echocardiogram with moderate pericardial effusion - given Lasix 40 mg IV x2 in ED - monitor on telemetry - cardiology consult - monitor BMP CKD 3 - creatinine at baseline - avoid nephrotoxins when possible Paroxysmal AFib - warfarin - EKG with sinus rhythm - continue rate control Anxiety - continue home meds GERD - continue home meds Med rec pending Full code VTE prophylaxis: Warfarin Patient with acute CHF exacerbation complicated by pericardial effusion requiring admission for at least 2 midnights stay for cardiology consultation and monitoring. Quality Stroke Does the patient have a stroke diagnosis?: No VTE Prior VTE?: No VTE Risk Level:: Medical - moderate - high VTE Device Contraindication: Treatment Not Indicated VTE Drug Contraindication: N/A - Med Ordered
[2025-04-03 05:04] LABS: MANUAL DIFF FLAG NO
[2025-04-03 05:05] LABS: Hematocrit 37.8 % (42.0-52.0); Hemoglobin 12.9 g/dl (14.0-18.0); Imm Gran Abs Auto 0.03 X10*3/uL (0.00-0.03); Imm Gran Pct Auto 0.4 % (0.0-0.4); Lymphocytes Absolute Auto 2.8 X10*3/uL (1.2-4.9); Mean Corpuscular HGB Conc 34.1 g/dl (31.0-36.0); Mean Corpuscular Hemoglobin 30.3 pg (27.0-33.0); Mean Corpuscular Volume 88.7 fL (80.0-98.0); NRBC Abs Auto 0.000 X10*3/uL (0.0-0.012); NRBC Pct Auto 0.0 /100WBC (0.0-0.2); Platelet Count 142 X10*3/uL (160-400); Red Blood Count 4.26 X10*6/uL (4.60-5.80); White Blood Count 7.8 X10*3/uL (4.8-10.8)
[2025-04-03 05:15] LABS: INTERNATIONAL NORM RATIO 3.0 (0.9-1.1); Prothrombin Time 34.7 SEC (10.9-12.4)
[2025-04-03 05:29] LABS: Anion Gap 13 (12-20); Blood Urea Nitrogen 21 mg/dL (9-16); Calcium 8.6 mg/dL (8.4-10.2); Carbon Dioxide 25 mmol/L (22-29); Chloride 103 mmol/L (96-108); Creatinine Clr Calc Pharmacy 67.5; Estimated Glomerular Filt Rate > 60; Potassium 3.2 mmol/L (3.3-5.1); Sodium 138 mmol/L (135-145)
--- NOTE | 2025-04-03 07:00 | CA_ITS ---
Transthoracic Echocardiogram Patient (Last, First, Middle): Russell Tiwari A Gender: Male Date of : 1945 Age: 80 Procedure Date: 04/03/2025 Procedure Type: Transthoracic [place]ocardiogram [place] [facility] [place]: 175.26 cm Weight: 89.36 kg BSA: 2.05 m2 Heart Rate: bpm BP: 90 / 54 mmHg Processing Archivist: Referring MD: Nina Gonzalez PA-C Symptoms: CHF exacerbation, pericardial effusion Study Quality: Adequate ECG Rhythm: Atrial Fibrillation Conclusions: - Moderately increased left ventricular cavity size. The left ventricular systolic function is severely decreased. The visually estimated ejection fraction is between 20-25%. - Normal right ventricular cavity size. There is low normal right ventricular systolic function. - There is moderate mitral valve regurgitation. - Significantly elevated right atrial pressure. Severe pulmonary hypertension is present. - There is mild dilatation of the ascending aorta measuring 3.90 cm. - Moderate loculated effusion along the lateral wall of left ventricular. Findings Left Ventricle Moderately increased left ventricular cavity size. The left ventricular systolic function is severely decreased. The visually estimated ejection fraction is between 20-25%. There is severe global hypokinesis. Abnormal diastolic function is noted. Elevated filling pressures. There is moderate septal asymmetric hypertrophy. Right Ventricle Normal right ventricular cavity size. There is low normal right ventricular systolic function. Atria The left atrium is severely dilated. The right atrium is normal in size. Aortic Valve There is a normal trileaflet aortic valve. There is mild calcification of the aortic valve. There is no aortic valve stenosis. There is no aortic valve regurgitation. Mitral Valve There is moderate mitral valve regurgitation. There is no mitral valve stenosis. Mild calcification anterior mitral valve leaflet. Pulmonic Valve The pulmonic valve is normal. There is trace to mild pulmonic valve regurgitation. Tricuspid Valve Normal tricuspid valve structure. There is trace tricuspid valve regurgitation. The right ventricular systolic pressure is 63 mmHg. Significantly elevated right atrial pressure. Severe pulmonary hypertension is present. Great Vessels There is mild dilatation of the ascending aorta measuring 3.90 cm. Venous The inferior vena cava is dilated and collapses less than 50% with inspiration. Pericardium/Pleural There are no definitive echocardiographic findings of tamponade physiology. Moderate loculated effusion along the lateral wall of left ventricular. Prior Study Comparison Changes noted compared to prior study dated: 07/05/2024. Moderate MR, moderate sized loculated pericardial effusion along the left ventricle. Measurements 2D Linear Measurements IVSd: 1.39 0.6-0.9/0.6-1.0 cm LVIDd: 6.67 3.9-5.3/4.2-5.9 cm LVIDd Index: 3.25 2.4-3.2/2.2-3.1 cm/m2 LVIDs: 5.82 2.0-3.6 cm LVPWd: 0.85 0.7-1.1 cm Ao Root: 3.40 2.1-3.5 cm LA Diam: 5.50 2.7-3.8/3.0-4.0 cm LAIDs Index: 2.68 1.5-2.3 cm/m2 LV Mass: 427.28 67-162/88-224 g LV Mass Index: 208.43 43-95/49-115 g/m2 LVOT Diam: 2.00 3.0+(-)1.3 cm 2D Systolic Function EF 4C: 22.30 >55% EF 2C: 17.40 >55% EF BiP: 21.10 >55% Mitral Valve MV Pk E: 0.94 MV Decel Time: 167.00 E'Lateral: 7.83 E'Medial: 5.55 E/E' Med: 17.00 E/E' Lat: 12.00 PHT: 49.00 MVA PHT: 4.49 Decel [place]: 5.56 Aortic Valve AoV Pk Kenneth: 1.18 AoV Mn Kenneth: 0.81 AoV VTI: 0.19 AoV Pk Grad: 6.00 Aov Mn Grad: 3.00 STACIE Cont.VTI: 1.72 LVOT LVOT Pk Kenneth: 0.57 LVOT Mn Kenneth: 0.38 LVOT VTI: 0.10 LVOT Pk Grad: 1.00 LVOT Mn Grad: 1.00 LVOT Diam: 2.00 LVOT Area: 3.14 Diastolic Function MV Pk E: 0.94 E'Medial: 5.55 E/E' Med: 17.00 E' Laterial: 7.83 E/E' Lat: 12.00 Right Ventricle TAPSE (mm): 23.00 TVS' Kenneth: 8.00 Tricuspid Valve TR Pk Kenneth: 3.46 TR Pk Grad: 48.00 RA Press: 15.00 RVSP: 63.00 Great Vessels Aorta Ao Root-2D: 3.40 2.0-3.7 cm Ao Asc: 3.90 2.1-3.4 cm Pulmonary Valve PV Pk Kenneth: 0.64 Peak PV Grad: 2.00 Updated in Other Vendor System with Status of Final Tyler Mattson MD electronically signed on 04/04/2025 5:31:16 PM with status of Final
--- NOTE | 2025-04-03 07:44 | P.EN_ITS ---
Event Note Date of Service: 04/03/25 Event Note: Seen/examined, admitted this morning Patient is a 80-year-old male with a past medical history significant for HFrEF (echo 1124 with EF of 25-30% with grade 1 diastolic dysfunction), patient declines ICD, CKD 3A, paroxysmal AFib on warfarin, anxiety and GERD who presented to the ED due to shortness of breath over the past 2 weeks worse with exertion. Acute on chronic combined systolic and diastolic CHF with moderate pericardial effusion and small L pleural effusion - last echo from 06/2024 with EF of 25-30% with grade 1 diastolic dysfunction - patient went for echocardiogram yesterday however this was done at a different facility and we are unable to access the results - bedside echocardiogram with moderate pericardial effusion - given Lasix 40 mg IV x2 in ED - monitor on telemetry - cardiology consult - monitor BMP SIRS no sepsis - no leukocytosis, temperature of 96.6 degrees, tachycardic and tachypneic, lactic acid normal, blood cultures x2 pending, no infection identified - received albumin in ED - chest x-ray with small left pleural effusion and pulmonary edema - BNP elevated at 2133 - COVID/flu/RSV negative - EKG nonischemic, troponins flat at 49 - initially started on ceftriaxone due to concern for sepsis, no infection id entified therefore no further antibiotics needed at this time - echo - monitor CBC and BMP CKD 3 - creatinine within normla - avoid nephrotoxins when possible Paroxysmal AFib - warfarin, hold today d/t INR 3 - EKG with sinus rhythm - continue rate control Anxiety - continue home meds GERD - continue home meds Med rec pending Full code VTE prophylaxis: Warfarin Patient with acute CHF exacerbation complicated by pericardial effusion requiring admission for at least 2 midnights stay for cardiology consultation and monitoring. Time Spent With Patient Time: Total time managing care of this patient today ____ minutes.
[2025-04-03] MEDS: 0.9 % Sodium Chloride Flush 3 ML SYRINGE IVFLUSH ×2 (08:25→15:01)
--- NOTE | 2025-04-03 08:46 | PC.NURSE ---
Care of Pt assumed at change of shift. Pt resting quietly on stretcher, NAD noted. Pt visits with family at bedside briefly. Pt relocated to room 14. Cardiac monitoring in place. [place] cath in place. IV flushed--patent and intact. A&Ox3 Skin is warm and dry Breaths and speech are unlabored at this time. Pt offers no complaints in this moment and reports he is looking forward Pharmacy at bedside for med rec at this time. Pt awaiting inpatient bed assignment.
--- NOTE | 2025-04-03 09:09 | PHA.MEDREC ---
Pharmacy Consult ? Medication Reconciliation Pharmacy has completed the medication reconciliation. Spoke with pt and he was able to confirm his medications with help from a DC packet from [facility], written 03/27/2025. Per pt; his Metoprolol was changed from 1 tab (25mg) daily to 3 tabs daily (75mg), pt states after a day of taking it this way, his blood pressure dropped too much, so him and hid Dr changed it to 25mg in the morning and if pt feels flutter/rapid heart rate he will take 1/2 tabs (12.5mg) in the afternoon, he takes Lorazepam 1 tab bid prn, Furosemide @0700,1400, he takes his Spironolactone daily@1200 and his Warfarin 2.5mg is taken 3 tabs (7.5mg) Tue @1800 and 2 tabs (5mg) on Sun + Tue @1800.
--- NOTE | 2025-04-03 09:50 | PC.NURSE ---
YARELIS Butcher at bedside meeting with Pt.
--- NOTE | 2025-04-03 10:56 | MHC.CM.PN ---
CM met with Patient at bedside, in the ED,and addressed IMM with him, providing Patient with the original and a copy will be placed on the chart. Patient lives alone in a house and he uses both a cane and a walker to assist with mobility. Patient is active with [facility] and has [facility] for personal care and a Homemaker. Home/resume said services is Patient's goal and CM has initiated and will follow for dc planning. PCP is Dr. Yonathan Womack and Daughter/HCP/Dee will transport to home at time of dc.
--- NOTE | 2025-04-03 11:48 | PM.CNCAR ---
History of Present Illness History of Present Illness Date of Service: 04/03/25 Requesting physician: Max Lara Chief complaint: acute CHF decompensation Narrative: [age] year gentleman with known history of cardiomyopathy who follows with Dr. Granados presenting with shortness of breath and acute decompensated congestive heart failure. He has history of atrial fibrillation, sleep apnea and previous history of inferior infarct. He has been admitted a few times in the last 4-5 months with congestive heart failure. He saw nurse practitioner at [facility] in February 2025 and at that time was clinically stable. He is saying that he was feeling tired and became short of breath before presentation. He has paroxysmal atrial fibrillation and is saying that when he develops AFib he gets similar symptoms. He is denying any chest discomfort. He has telemetry is showing significant premature ventricular complexes. It appears he had similar problem before and at 1 stage at [facility] he was started on amiodarone. I discussed with his primary scaffold erector/Michaela Anguiano, there is no documentation about any amiodarone toxicity or side effects from amiodarone. There has been discussions previously about ICD placement but patient has refused. She also added that patient has been at times noncompliant with medications and stopped all medications in the past. [facility] Past Medical History Medical History Acute on chronic combined systolic and diastolic CHF (congestive heart failure) Orthopnea Anxiety Myocardial infarct, old CHF (congestive heart failure) CVA (cerebral vascular accident) A-fib Surgical History Surgical History History of appendectomy Social History Social History Household Members: None Housing: House Do you presently have visiting nurse or other home services: Yes (dressing, laundry, cleaning, cooking, etc) Alcohol intake: former Patient Tobacco Use Status: Former Tobacco user service: Yes Current occupational status: disabled Meds Allergies Allergy/AdvReac Type Severity Reaction Status Date / Time adenosine Allergy Severe cardiac, Verified 04/02/25 21:30 elevated BP, Stroke Gadolinium-Containing Allergy Severe red eyes Verified 04/02/25 21:30 Contrast Medi Iodinated Contrast Media Allergy Severe Seizure Verified 04/02/25 21:30 (CONTRAST, IV) carvedilol Allergy Intermediate disorientat Verified 04/02/25 21:30 ion erythromycin base AdvReac Unknown Gut Verified 04/02/25 21:30 pain , Abdominal Pain, GI upset Active Medications: Current Medications Acetaminophen (Acetaminophen 325 Mg Tablet) 975 mg PO Q6H PRN PRN Reason: Pain, Mild 1-3,fever,headache Last Admin: 04/03/25 03:08 Dose: 975 mg Calcium Carbonate (Calcium Carbonate 750 Mg Tab.Chew) 750 mg PO Q4H PRN PRN Reason: Heartburn Magnesium Hydroxide (Milk Of Magnesia 30 Ml Oral.Susp) 30 ml PO DAILY PRN PRN Reason: Constipation Melatonin (Melatonin 3 Mg Tablet) 6 mg PO BEDTIME PRN PRN Reason: Insomnia Sodium Chloride (0.9 % Sodium Chloride Flush 3 Ml Syringe) 3 ml IVFLUSH QSHIFT TOMI Last Admin: 04/03/25 08:25 Dose: 3 ml Tramadol HCl (Tramadol Hcl 50 Mg Tablet) 50 mg PO Q6H PRN PRN Reason: Pain, Moderate(Pain Scale 4-6) Warfarin Sodium (Warfarin Sodium 5 Mg Tablet) 5 mg PO ONCE@1800 ONE Stop: 04/03/25 18:01 Home Medications ?Medication ?Instructions ?Recorded ?Confirmed ?Last Taken ?Type lorazepam 0.5 mg tablet 0.5 mg PO BID PRN Anxiety 11/14/20 04/03/25 12/09/24 History omeprazole 20 mg capsule,delayed 20 mg PO DAILY@0630 11/14/20 04/03/25 04/02/25 History release coenzyme Q10 100 mg capsule 100 mg PO DAILY 04/14/21 04/03/25 04/02/25 History (CoQ-10) carboxymethylcellulose sodium 0.5 1 drp ophthalmic (eye) BID 11/30/22 04/03/25 04/02/25 History % eye drops (Refresh Tears) simvastatin 20 mg tablet 10 mg PO DAILY 11/19/24 04/03/25 04/02/25 History furosemide 20 mg tablet 40 mg PO BID@0700,1400 12/17/24 04/03/25 04/02/25 History spironolactone 25 mg tablet 25 mg PO DAILY@1200 01/17/25 04/03/25 04/02/25 History metoprolol succinate 25 mg 12.5 mg PO DAILY PRN Hypertension 04/02/25 04/03/25 Unknown History tablet,extended release 24 hr aluminum-mag hydroxide-simethicone 5 ml PO 5XD PRN Indigestion 04/03/25 04/03/25 Unknown History 200 mg-200 mg-20 mg/5 mL oral susp metoprolol succinate 25 mg 25 mg PO DAILY 04/03/25 04/03/25 04/02/25 History tablet,extended release 24 hr warfarin 2.5 mg tablet 5 mg PO SUWE@1800 04/03/25 04/03/25 03/31/25 History warfarin 2.5 mg tablet 7.5 mg PO MOTUTHFRSA@1800 04/03/25 04/03/25 04/02/25 History Physical Exam Vital Signs: Vital Signs: Last Vital Signs Temp 97.5 F 04/03/25 04:23 Pulse 72 04/03/25 08:19 Resp 16 04/03/25 08:19 BP 91/58 L 04/03/25 08:19 Pulse Ox 94 04/03/25 08:19 O2 Del Method Room Air 04/03/25 08:19 BMI result Body Mass Index 29.9 GENERAL APPEARANCE: in no acute distress, pleasant. NECK: no carotid bruit, positive jugular venous distention, positive hepatojugular reflux. SKIN: no suspicious lesions. Cold to touch. HEART: no murmurs, irregular rate and rhythm. LUNGS: Crackles at bases. ABDOMEN: soft, nontender. EXTREMITIES: no edema. PERIPHERAL PULSES: equal. NEUROLOGIC: No gross deficits, AAO X 3 Objective Labs and Meds 04/03/25 04:41 04/03/25 04:41 Lab results: Laboratory Results - last 24 hr 04/02/25 04/02/25 04/02/25 22:00 22:01 22:08 WBC 8.4 RBC 4.32 L Hgb 13.3 L Hct 38.1 L MCV 88.2 MCH 30.8 MCHC 34.9 RDW 14.0 Plt Count 159 L MPV 10.8 Immature Gran % (Auto) 0.2 Neut % (Auto) 63.2 Lymph % (Auto) 27.4 [place] % (Auto) 8.2 Eos % (Auto) 0.6 Baso % (Auto) 0.4 Lymph # (Auto) 2.3 [place] # (Auto) 0.7 Eos # (Auto) 0.1 Baso # (Auto) 0.0 Abs Immat Gran (auto) 0.02 Absolute Neuts (auto) 5.3 Absolute Nucleated RBC 0.000 Nucleated RBC % (auto) 0.0 PT INR Sodium 135 Potassium 3.6 Chloride 101 Carbon Dioxide 24 Anion Gap 14 BUN 23 H Creatinine 1.11 Estim Creat Clear Calc 59.6 Estimated GFR > 60 Random Glucose 130 H Lactic Acid 1.7 Calcium 9.1 Total Bilirubin 0.6 AST 21 ALT 17 Alkaline Phosphatase 84 Troponin I High Sens 49.1 H B-Natriuretic Peptide 2133 H Total Protein 6.3 L Albumin 3.9 Influenza Type A (PCR) NEGATIVE Influenza Type B (PCR) NEGATIVE RSV RNA Qual (PCR) NEGATIVE SARS-CoV-2 RNA (RT-PCR) NEGATIVE 04/02/25 04/03/25 23:32 04:41 WBC 7.8 RBC 4.26 L Hgb 12.9 L Hct 37.8 L MCV 88.7 MCH 30.3 MCHC 34.1 RDW 14.1 Plt Count 142 L MPV 11.0 Immature Gran % (Auto) 0.4 Neut % (Auto) 54.4 Lymph % (Auto) 36.1 [place] % (Auto) 7.7 Eos % (Auto) 0.9 Baso % (Auto) 0.5 Lymph # (Auto) 2.8 [place] # (Auto) 0.6 Eos # (Auto) 0.1 Baso # (Auto) 0.0 Abs Immat Gran (auto) 0.03 Absolute Neuts (auto) 4.2 Absolute Nucleated RBC 0.000 Nucleated RBC % (auto) 0.0 PT 34.7 H INR 3.0 H Sodium 138 Potassium 3.2 L Chloride 103 Carbon Dioxide 25 Anion Gap 13 BUN 21 H Creatinine 0.98 Estim Creat Clear Calc 67.5 Estimated GFR > 60 Random Glucose 115 Lactic Acid Calcium 8.6 Total Bilirubin AST ALT Alkaline Phosphatase Troponin I High Sens 49.0 H B-Natriuretic Peptide Total Protein Albumin Influenza Type A (PCR) Influenza Type B (PCR) RSV RNA Qual (PCR) SARS-CoV-2 RNA (RT-PCR) Assessment and Plan (1) Congestive heart failure: Status: Acute (2) Pericardial effusion: Status: Acute Plan [age] year gentleman presenting with shortness of breath and congestive heart failure. He has known cardiomyopathy with [id number] LV dysfunction in the past. It appears ICD was discussed the patient previously but he was refusing it. Clinically appears to be mildly overloaded. Agree with holding beta-michelle for now. He is feeling better with diuretics at this stage. I would hold the Entresto. I think spironolactone should be continued because he is hypokalemic. Replete potassium and check magnesium and replete if it is low. If with electrolyte repletion PVCs do not improve then I will consider starting him back on amiodarone. Amiodarone has an interaction with Coumadin so before starting we may have to do a discussion with the patient about changing to Eliquis if he agrees otherwise INR will need to be monitored closely. Thank you for allowing me to participate in the care of your patient. Please feel free to contact me if you have any questions. Procedures Date of Service Date of Service: 04/03/25
--- NOTE | 2025-04-03 12:02 | PHA.MEDREC ---
Pharmacy Consult ? Medication Reconciliation Pharmacy has completed the medication reconciliation.
[2025-04-03] MEDS: Potassium Chloride ER 20 MEQ TAB.ER.PRT 40 MEQ PO (16:00)
[2025-04-03] MEDS: Magnesium Hydrox/Alum Hydrox 30 ML ORAL.SUSP 5 ML PO (20:18)
[2025-04-03] MEDS: Artificial Tears 15 ML DROPS 1 DROP EYE-BOTH (21:27)
--- NOTE | 2025-04-04 | ECG_ITS ---
Test Reason : tachycardia Blood Pressure : */* mmHG Vent. Rate : 121 BPM Atrial Rate : 121 BPM P-R Int : 224 ms QRS Dur : 112 ms QT Int : 352 ms P-R-T Axes : * -59 47 degrees QTcB Int : 499 ms Atrial flutter, PVCs Left anterior fascicular block Cannot rule out Anterior infarct , age undetermined Abnormal ECG When compared with ECG of 03-Apr-2025 12:01, Atrial flutter present Referred By: Tyler Mattson Electronically Signed By: Tyler Mattson
--- NOTE | 2025-04-04 00:36 | PM.EVENT ---
Event Note Date of Service: 04/04/25 Event Note: Metoprolol and Entresto on hold per Cardiology per recommendations. Okay to continue spironolactone due to hypokalemia. Time Spent With Patient Time: Total time managing care of this patient today ____ minutes.
[2025-04-04 03:16] VITALS: BP 114/63; PULSE 100; RESP 18; TEMP 36.3; O2SAT 96
[2025-04-04 06:54] VITALS: BP 102/63; PULSE 100; RESP 18; TEMP 36.2; O2SAT 99
[2025-04-04] MEDS: Milk of Magnesia 30 ML ORAL.SUSP PO (07:34)
[2025-04-04] MEDS: 0.9 % Sodium Chloride Flush 3 ML SYRINGE IVFLUSH ×2 (07:35→15:24)
[2025-04-04 07:36] LABS: MANUAL DIFF FLAG NO
--- NOTE | 2025-04-04 07:43 | PC.NURSE ---
refusing bed alarm on ,
[2025-04-04 07:45] LABS: Hematocrit 40.1 % (42.0-52.0); Hemoglobin 13.9 g/dl (14.0-18.0); Imm Gran Abs Auto 0.03 X10*3/uL (0.00-0.03); Imm Gran Pct Auto 0.4 % (0.0-0.4); Lymphocytes Absolute Auto 2.4 X10*3/uL (1.2-4.9); Mean Corpuscular HGB Conc 34.7 g/dl (31.0-36.0); Mean Corpuscular Hemoglobin 30.8 pg (27.0-33.0); Mean Corpuscular Volume 88.9 fL (80.0-98.0); NRBC Abs Auto 0.000 X10*3/uL (0.0-0.012); NRBC Pct Auto 0.0 /100WBC (0.0-0.2); Platelet Count 152 X10*3/uL (160-400); Red Blood Count 4.51 X10*6/uL (4.60-5.80); White Blood Count 8.3 X10*3/uL (4.8-10.8)
[2025-04-04 08:04] LABS: B Type Natriuretic Peptide 1651 pg/mL (<100)
[2025-04-04 08:13] LABS: Anion Gap 15 (12-20); Blood Urea Nitrogen 21 mg/dL (9-16); Calcium 9.2 mg/dL (8.4-10.2); Carbon Dioxide 27 mmol/L (22-29); Chloride 100 mmol/L (96-108); Creatinine Clr Calc Pharmacy 68.3; Estimated Glomerular Filt Rate > 60; Potassium 3.8 mmol/L (3.3-5.1); Sodium 138 mmol/L (135-145)
[2025-04-04 08:36] LABS: INTERNATIONAL NORM RATIO 2.5 (0.9-1.1); Prothrombin Time 28.7 SEC (10.9-12.4)
[2025-04-04] MEDS: Artificial Tears 15 ML DROPS 1 DROP EYE-BOTH (08:36)
--- NOTE | 2025-04-04 10:26 | PC.NURSE ---
bryce of Vtach 12 beats, frequent PVC'S . RN assessed pt: sitting on the chair , alert and oriented x 4 , denied chest pain , c/o SOB . Stated that he ambulated to the doorway with his daughter , SOB increased with ambulation . Pt back to bed , 0xygen 1L via [place] applied. DR Lara was notified . Pt's daughter , Dee requested MD to discuss code status with the patient. DR Lara was informed
[2025-04-04 11:03] LABS: Magnesium 1.8 mg/dL (1.6-2.6)
[2025-04-04 11:08] VITALS: BP 147/60; PULSE 103; RESP 19; TEMP 36.4; O2SAT 97
--- NOTE | 2025-04-04 11:35 | MHC.CM.PN ---
Addendum entered by Petra Mendoza 04/04/25 11:42: pt. is active with [facility], they have been updated Original Note: CM met with pt's dtr, preferance for DCP is for pt. to go home with services. He has home health care from [facility], Dtr. to look into increasing hours. Referrals submitted for [facility] that accept [facility].
--- NOTE | 2025-04-04 11:42 | PC.NURSE ---
Pt reported constipation , stated last BM 04/02/25, MOM administered this am , drank 1/4 cup of prune juice , no results yet , asking for more laxatives , Dr thurston notified
[2025-04-04] MEDS: Magnesium Sulfate/H2O 2 GM/50 ML PIGGYBACK IV (11:56)
--- NOTE | 2025-04-04 12:06 | PC.NURSE ---
c/o nausea , not able to have a BM , Miralax ordered and administered , Mg IV ordered for cardiac problem , started at rate 25 ml /hr
--- NOTE | 2025-04-04 13:33 | P.PNIM_ITS ---
Subjective Subjective Date of Service: 04/04/25 Interval History: Patient is reporting being short of breath despite O2 saturation being within normal, he generally feels more comfortable with supplemental oxygen Has had short burst of ventricular tachycardia Physical Exam 2 Vital Signs: Vital Signs: Last Vital Signs Temp 97.6 F 04/04/25 11:08 Pulse 103 H 04/04/25 11:08 Resp 19 04/04/25 11:08 BP 147/60 H 04/04/25 11:08 Pulse Ox 97 04/04/25 11:08 O2 Del Method Nasal Cannula 04/04/25 11:08 O2 Flow Rate 2 04/04/25 06:54 BMI result Body Mass Index 29.9 General: AO X 3, no acute distress Resp: CTA bilateral, no accessory muscles used CVS: S1,S2,RRR GI: soft, non tender, non distended Neuro: motor grossly intact, alert Psych: appropriate affect, appropriate insight Objective Data Active Medications Acetaminophen (Acetaminophen 325 Mg Tablet) 975 mg PO Q6H PRN PRN Reason: Pain, Mild 1-3,fever,headache Last Admin: 04/03/25 03:08 Dose: 975 mg Documented By: STEPHANIE Al Hydroxide/Mg Hydroxide (Magnesium Hydrox/Alum Hydrox 30 Ml Oral.Susp) 5 ml PO 5XD PRN PRN Reason: Indigestion Last Admin: 04/03/25 20:18 Dose: 5 ml Documented By: NASEEM Artificial Tears (Artificial Tears 15 Ml Drops) 1 drop EYE-BOTH BID [facility] Last Admin: 04/04/25 08:36 Dose: 1 drop Documented By: RUDI Atorvastatin Calcium (Atorvastatin Calcium 10 Mg Tablet) 10 mg PO DAILY [facility] Last Admin: 04/04/25 08:35 Dose: 10 mg Documented By: RUDI Calcium Carbonate (Calcium Carbonate 750 Mg Tab.Chew) 750 mg PO Q4H PRN PRN Reason: Heartburn Last Admin: 04/03/25 17:24 Dose: 750 mg Documented By: MICHELLE Furosemide (Furosemide 40 Mg Tablet) 40 mg PO BID@0700,1400 [facility]; Protocol Last Admin: 04/04/25 08:34 Dose: 40 mg Documented By: RUDI Magnesium Sulfate (Magnesium Sulfate/H2o) 2 gm in 50 mls @ 25 mls/hr IV ONCE ONE Stop: 04/04/25 13:59 Last Admin: 04/04/25 11:56 Dose: 25 mls/hr Documented By: RUDI Lorazepam (Lorazepam 0.5 Mg Tablet) 0.25 mg PO BID PRN PRN Reason: Anxiety Last Admin: 04/03/25 21:45 Dose: 0.25 mg Documented By: NASEEM Magnesium Hydroxide (Milk Of Magnesia 30 Ml Oral.Susp) 30 ml PO DAILY PRN PRN Reason: Constipation Last Admin: 04/04/25 07:34 Dose: 30 ml Documented By: RUDI Melatonin (Melatonin 3 Mg Tablet) 6 mg PO BEDTIME PRN PRN Reason: Insomnia Metoprolol Succinate (Metoprolol Succinate Er 12.5 Mg Halftab.Er.24h) 12.5 mg PO DAILY PRN; Protocol On Hold: 04/04/25 00:37 PRN Reason: Hypertension Omeprazole (Omeprazole 20 Mg Capsule.Dr) 20 mg PO DAILY@0630 [facility] Last Admin: 04/04/25 06:19 Dose: 20 mg Documented By: NASEEM Ondansetron HCl (Ondansetron Hcl 4 Mg/2 Ml Vial) 4 mg IVPUSH Q8H PRN PRN Reason: Nausea and Vomiting Last Admin: 04/04/25 11:57 Dose: 4 mg Documented By: RUDI Polyethylene Glycol (Polyethylene Glycol 3350 17 Gm Powd.Pack) 17 gm PO DAILY PRN PRN Reason: Constipation Last Admin: 04/04/25 11:57 Dose: 17 gm Documented By: RUDI Sodium Chloride (0.9 % Sodium Chloride Flush 3 Ml Syringe) 3 ml IVFLUSH QSHIFT [facility] Last Admin: 04/04/25 07:35 Dose: 3 ml Documented By: RUDI Spironolactone (Spironolactone 25 Mg Tablet) 25 mg PO DAILY@1200 [facility]; Protocol Last Admin: 04/04/25 12:09 Dose: 25 mg Documented By: RUDI Tramadol HCl (Tramadol Hcl 50 Mg Tablet) 50 mg PO Q6H PRN PRN Reason: Pain, Moderate(Pain Scale 4-6) Warfarin Sodium (Warfarin Sodium 5 Mg Tablet) 5 mg PO DAILY@1800 [facility] Labs 04/04/25 06:31 04/04/25 06:31 Labs: Laboratory Results - last 24 hr 04/04/25 06:31 MCV 88.9 MCH 30.8 MCHC 34.7 RDW 14.2 Plt Count 152 L MPV 11.5 Immature Gran % (Auto) 0.4 Neut % (Auto) 62.3 Lymph % (Auto) 28.9 [place] % (Auto) 6.8 Eos % (Auto) 1.1 Baso % (Auto) 0.5 Lymph # (Auto) 2.4 [place] # (Auto) 0.6 Eos # (Auto) 0.1 Baso # (Auto) 0.0 Abs Immat Gran (auto) 0.03 Absolute Neuts (auto) 5.2 Absolute Nucleated RBC 0.000 Nucleated RBC % (auto) 0.0 PT 28.7 H INR 2.5 H Anion Gap 15 Estim Creat Clear Calc 68.3 Estimated GFR > 60 Random Glucose 118 H Calcium 9.2 D Magnesium 1.8 B-Natriuretic Peptide 1651 H Microbiology Microbiology Results: Microbiology 04/02/25 22:08 Blood Culture - Preliminary Blood - Venous No growth after 24 hours. 04/02/25 22:00 Blood Culture - Preliminary Blood - Venous No growth after 24 hours. Assessment and Plan (1) Congestive heart failure: Status: Acute Plan 79M PMH hfref, pafib, cad, cva, gerd, anxiety presented with sob Acute on chronic CHF with reduced ejection fraction Diuresed well with IV Lasix, transitioned back to p.o. Not tolerating Jardiance continue , metoprolol, Aldactone Holding Entresto for now Cardio input noted Acute kidney injury on CKD 3 Monitor Prolonged QT Amiodarone on hold repeat ECG Paroxysmal AFib Continue metoprolol and Coumadin restart coumadin Ventricular arrythmia mag 1.8 give 2 gram continue metoprolol K goal of 4 amio has been on hold Anxiety Lorazepam DVT prophylaxis on warfarin Full Code reason for continued hospitalization: Monitoring post diuresis Quality Stroke Does the patient have a stroke diagnosis?: No VTE Prior VTE?: No VTE Risk Level:: Medical - moderate - high VTE Device Contraindication: Treatment Not Indicated VTE Drug Contraindication: N/A - Med Ordered
[2025-04-04] MEDS: Potassium Chloride ER 20 MEQ TAB.ER.PRT PO (15:22)
--- NOTE | 2025-04-04 15:24 | PC.NURSE ---
Pt refusing Amiodorone , stated that it is poison and I tried in the past and got sick as a dog . DR Lara was notified
[2025-04-04 16:01] VITALS: BP 134/78; PULSE 142; RESP 20; TEMP 37; O2SAT 95
--- NOTE | 2025-04-04 16:07 | PM.PNCARD ---
Subjective Subjective Date of Service: 04/04/25 Interval history: Seen and examined at bedside. Blood pressure better today. He has been getting significant ectopy on telemetry and I think he is having runs of atrial fibrillation with aberrancy. Electrolytes have improved at this stage. Overall he does not appear to be significantly volume overloaded. Physical Exam Vital Signs: Last Vital Signs Temp 98.6 F 04/04/25 16:01 Pulse 142 H 04/04/25 16:01 Resp 20 04/04/25 16:01 BP 134/78 04/04/25 16:01 Pulse Ox 95 04/04/25 16:01 O2 Del Method Nasal Cannula 04/04/25 16:01 O2 Flow Rate 1.5 04/04/25 16:01 BMI result Body Mass Index 29.9 GENERAL APPEARANCE: in no acute distress, pleasant. NECK: no carotid bruit. SKIN: no suspicious lesions. Cold to touch. HEART: no murmurs, irregular rate and rhythm. LUNGS: Clear to auscultation. ABDOMEN: soft, nontender. EXTREMITIES: no edema. PERIPHERAL PULSES: equal. NEUROLOGIC: No gross deficits, AAO X 3 Objective Labs and Meds 04/04/25 06:31 04/04/25 06:31 Lab results: Laboratory Results - last 24 hr 04/04/25 06:31 WBC 8.3 RBC 4.51 L Hgb 13.9 L Hct 40.1 L MCV 88.9 MCH 30.8 MCHC 34.7 RDW 14.2 Plt Count 152 L MPV 11.5 Immature Gran % (Auto) 0.4 Neut % (Auto) 62.3 Lymph % (Auto) 28.9 [place] % (Auto) 6.8 Eos % (Auto) 1.1 Baso % (Auto) 0.5 Lymph # (Auto) 2.4 [place] # (Auto) 0.6 Eos # (Auto) 0.1 Baso # (Auto) 0.0 Abs Immat Gran (auto) 0.03 Absolute Neuts (auto) 5.2 Absolute Nucleated RBC 0.000 Nucleated RBC % (auto) 0.0 PT 28.7 H INR 2.5 H Sodium 138 Potassium 3.8 Chloride 100 Carbon Dioxide 27 Anion Gap 15 BUN 21 H Creatinine 0.98 Estim Creat Clear Calc 68.3 Estimated GFR > 60 Random Glucose 118 H Calcium 9.2 D Magnesium 1.8 B-Natriuretic Peptide 1651 H Progress Note: A&P Assessment and plan (1) Congestive heart failure: Status: Acute Plan Pleasant 80 year gentleman with cardiomyopathy with EF 25-30% in the past who is presenting with shortness of breath and congestive heart failure. Telemetry is showing significant premature ventricular complexes as well as runs of AFib with aberrancy. He is saying that he has not tolerated atrial fibrillation in the past. In 2022 he was at [facility] and it appears he was on amiodarone due to significant premature ventricular complexes. His electrolytes are stable at this point. I am starting him on amiodarone and we will put him on 400 mg twice a day. After 10 days we will transition him to 200 mg daily. Hold the Toprol-XL because he has had some bradycardia previously as per the nurse practitioner who takes care of him in Cardiology. I will discuss with him about ICD placement. If he is agreeable, previously he was reluctant based on notes from [facility], I will arrange referral to EP inpatient. Thank you for allowing me to participate in the care of your patient. Please feel free to contact me if you have any questions. Time Spent With Patient Time: Total time managing care of this patient today ____ minutes. Progress Note: Quality Stroke Does the patient have a stroke diagnosis?: No Procedures Date of Service Date of Service: 04/04/25
[2025-04-04] MEDS: Furosemide 40 MG/4 ML VIAL IVPUSH (18:03)
[2025-04-04] MEDS: Amiodarone/Dextrose 150 MG/100 ML PLAST..BAG 600 MG IV (18:28)
--- NOTE | 2025-04-04 18:43 | PC.NURSE ---
Amiodorone loading dose infused , pt tolerated well. Pt agreed to Amiodorone treatment with DR Mattson
[2025-04-04 20:00] VITALS: BP 151/78; PULSE 112; RESP 18; TEMP 36; O2SAT 94
[2025-04-04 21:08] VITALS: BP 151/78
[2025-04-04] MEDS: Sacubitril/Valsartan 24/26 1 TAB TABLET PO (21:08)
[2025-04-05] VITALS (10 sets, daily range): BP systolic 96–110; BP diastolic 58–72; PULSE 85–109; RESP 16–20; TEMP 35.9–36.9; O2SAT 94–97
--- NOTE | 2025-04-05 | ECG_ITS ---
Test Reason : rhythm change Blood Pressure : */* mmHG Vent. Rate : 93 BPM Atrial Rate : 93 BPM P-R Int : 240 ms QRS Dur : 120 ms QT Int : 398 ms P-R-T Axes : -10 -58 69 degrees QTcB Int : 494 ms Sinus rhythm with 1st degree A-V block with Premature atrial complexes with Aberrant conduction Left anterior fascicular block Cannot rule out Anterior infarct (cited on or before 04-Apr-2025) Abnormal ECG When compared with ECG of 04-Apr-2025 18:07, Sinus rhythm present Referred By: Beatrice Reddy Electronically Signed By: Tyler Mattson
[2025-04-05] MEDS: 0.9 % Sodium Chloride Flush 3 ML SYRINGE IVFLUSH ×2 (01:57→17:34)
[2025-04-05] MEDS: traZODone HCL 25 MG HALFTAB 12.5 MG PO (02:00)
[2025-04-05 06:28] LABS: MANUAL DIFF FLAG NO
[2025-04-05 06:38] LABS: Hematocrit 40.3 % (42.0-52.0); Hemoglobin 13.6 g/dl (14.0-18.0); Imm Gran Abs Auto 0.04 X10*3/uL (0.00-0.03); Imm Gran Pct Auto 0.5 % (0.0-0.4); Lymphocytes Absolute Auto 1.9 X10*3/uL (1.2-4.9); Mean Corpuscular HGB Conc 33.7 g/dl (31.0-36.0); Mean Corpuscular Hemoglobin 30.2 pg (27.0-33.0); Mean Corpuscular Volume 89.6 fL (80.0-98.0); NRBC Abs Auto 0.000 X10*3/uL (0.0-0.012); NRBC Pct Auto 0.0 /100WBC (0.0-0.2); Platelet Count 156 X10*3/uL (160-400); Red Blood Count 4.50 X10*6/uL (4.60-5.80); White Blood Count 8.1 X10*3/uL (4.8-10.8)
[2025-04-05 06:53] LABS: Anion Gap 16 (12-20); Blood Urea Nitrogen 20 mg/dL (9-16); Calcium 9.0 mg/dL (8.4-10.2); Carbon Dioxide 26 mmol/L (22-29); Chloride 97 mmol/L (96-108); Creatinine Clr Calc Pharmacy 60.9; Estimated Glomerular Filt Rate > 60; Magnesium 2.2 mg/dL (1.6-2.6); Potassium 4.1 mmol/L (3.3-5.1); Sodium 135 mmol/L (135-145)
[2025-04-05 06:54] LABS: INTERNATIONAL NORM RATIO 2.3 (0.9-1.1); Prothrombin Time 26.2 SEC (10.9-12.4)
[2025-04-05] MEDS: Sacubitril/Valsartan 24/26 1 TAB TABLET PO ×2 (08:49→21:31)
[2025-04-05] MEDS: Artificial Tears 15 ML DROPS 1 DROP EYE-BOTH ×2 (08:50→21:32)
--- NOTE | 2025-04-05 10:15 | PM.PNCARD ---
Subjective Subjective Date of Service: 04/05/25 Interval history: Seen examined at bedside. He was noticed to be in atrial flutter last evening and was started on amiodarone drip. He had responded well to that and so far his PVCs and atrial flutter have improved. Continues to be short of breath though. Physical Exam Vital Signs: Last Vital Signs Temp 96.6 F L 04/05/25 07:26 Pulse 96 04/05/25 07:26 Resp 18 04/05/25 07:26 BP 110/72 04/05/25 07:26 Pulse Ox 94 04/05/25 07:26 O2 Del Method Nasal Cannula 04/05/25 07:26 O2 Flow Rate 1 04/05/25 07:26 BMI result Body Mass Index 29.9 GENERAL APPEARANCE: in no acute distress, pleasant. NECK: no carotid bruit. Positive JVD SKIN: no suspicious lesions. Cold lower extremities. HEART: no murmurs, regular rate rhythm. LUNGS: Crackles at bases. ABDOMEN: soft, nontender. EXTREMITIES: no edema. PERIPHERAL PULSES: equal. NEUROLOGIC: No gross deficits, AAO X 3 Objective Labs and Meds 04/05/25 06:17 04/05/25 06:17 Lab results: Laboratory Results - last 24 hr 04/04/25 04/05/25 06:31 06:17 WBC 8.1 RBC 4.50 L Hgb 13.6 L Hct 40.3 L MCV 89.6 MCH 30.2 MCHC 33.7 RDW 14.1 Plt Count 156 L MPV 11.0 Immature Gran % (Auto) 0.5 H Neut % (Auto) 66.7 Lymph % (Auto) 23.7 [place] % (Auto) 8.0 Eos % (Auto) 0.7 Baso % (Auto) 0.4 Lymph # (Auto) 1.9 [place] # (Auto) 0.7 Eos # (Auto) 0.1 Baso # (Auto) 0.0 Abs Immat Gran (auto) 0.04 H Absolute Neuts (auto) 5.4 Absolute Nucleated RBC 0.000 Nucleated RBC % (auto) 0.0 PT 26.2 H INR 2.3 H Sodium 135 Potassium 4.1 Chloride 97 Carbon Dioxide 26 Anion Gap 16 BUN 20 H Creatinine 1.10 Estim Creat Clear Calc 60.9 Estimated GFR > 60 Random Glucose 131 H Calcium 9.0 Magnesium 1.8 2.2 Progress Note: A&P Assessment and plan (1) Congestive heart failure: Status: Acute (2) Atrial flutter: Status: Acute Plan Pleasant 80 year gentleman with cardiomyopathy with EF 20 25% with multiple recent hospitalizations. Presented with decompensated heart failure. He had significant PVC burden with runs of nonsustained VT, potentially AFib with aberrancy and eventually developing atrial flutter yesterday. He was started on amiodarone last evening and he is currently on an infusion. I think the inferior and should be continued because it is working. Hold the beta-michelle for now. IV diuretics Lasix 40 mg, dose b.i.d. if he is not negative in the next 6 hours. Continue the Entresto, spironolactone. I will discuss with EP with [facility] to see if he has any options for ablation. He is 80 years old and has a indication for ICD but it will need discussion with electrophysiology. Thank you for allowing me to participate in the care of your patient. Please feel free to contact me if you have any questions. Time Spent With Patient Time: Total time managing care of this patient today ____ minutes. Progress Note: Quality Stroke Does the patient have a stroke diagnosis?: No Procedures Date of Service Date of Service: 04/05/25
--- NOTE | 2025-04-05 11:27 | HO.PM.IMPN ---
Subjective Subjective Date of Service: 04/05/25 Interval History: Patient is reporting feeling a bit better today but still signficantly sob with minimal effort started on amiodarone drip yeserday with reduction in ventricular arrytmia Physical Exam Vital Signs: Vital Signs: Last Vital Signs Temp 97.1 F 04/05/25 11:10 Pulse 88 04/05/25 11:10 Resp 18 04/05/25 11:10 BP 100/59 L 04/05/25 11:10 Pulse Ox 97 04/05/25 11:10 O2 Del Method Nasal Cannula 04/05/25 11:10 O2 Flow Rate 1 04/05/25 11:10 BMI result Body Mass Index 29.9 General: AO X 3, no acute distress Resp: CTA bilateral, no accessory muscles used CVS: S1,S2,RRR, 1 + leg edema GI: soft, non tender, non distended Neuro: motor grossly intact, alert Psych: appropriate affect, appropriate insight Objective Data Active Medications Acetaminophen (Acetaminophen 325 Mg Tablet) 975 mg PO Q6H PRN PRN Reason: Pain, Mild 1-3,fever,headache Last Admin: 04/04/25 21:11 Dose: 975 mg Documented By: JOSÉ ANTONIO Al Hydroxide/Mg Hydroxide (Magnesium Hydrox/Alum Hydrox 30 Ml Oral.Susp) 5 ml PO 5XD PRN PRN Reason: Indigestion Last Admin: 04/03/25 20:18 Dose: 5 ml Documented By: NASEEM Artificial Tears (Artificial Tears 15 Ml Drops) 1 drop EYE-BOTH BID [facility] Last Admin: 04/05/25 08:50 Dose: 1 drop Documented By: RUDI Atorvastatin Calcium (Atorvastatin Calcium 10 Mg Tablet) 10 mg PO DAILY [facility] Last Admin: 04/05/25 08:49 Dose: 10 mg Documented By: RUDI Calcium Carbonate (Calcium Carbonate 750 Mg Tab.Chew) 750 mg PO Q4H PRN PRN Reason: Heartburn Last Admin: 04/04/25 21:08 Dose: 750 mg Documented By: JOSÉ ANTONIO Furosemide (Furosemide 40 Mg/4 Ml Vial) 40 mg IVPUSH BID@0900,1800 [facility]; Protocol Last Admin: 04/05/25 11:03 Dose: Not Given Documented By: RUDI Non-Admin Reason: Previously Administered Amiodarone HCl 900 mg/ Sodium (Chloride) 518 mls @ 34.533 mls/hr IVCONT .Q15H1M [facility]; Protocol Last Admin: 04/05/25 11:03 Dose: Not Given Documented By: RUDI Non-Admin Reason: IV Running Lorazepam (Lorazepam 0.5 Mg Tablet) 0.25 mg PO BID PRN PRN Reason: Anxiety Last Admin: 04/05/25 11:11 Dose: 0.25 mg Documented By: RUDI Magnesium Hydroxide (Milk Of Magnesia 30 Ml Oral.Susp) 30 ml PO DAILY PRN PRN Reason: Constipation Last Admin: 04/04/25 07:34 Dose: 30 ml Documented By: RUDI Melatonin (Melatonin 3 Mg Tablet) 6 mg PO BEDTIME PRN PRN Reason: Insomnia Last Admin: 04/04/25 21:08 Dose: 6 mg Documented By: JOSÉ ANTONIO Omeprazole (Omeprazole 20 Mg Capsule.Dr) 20 mg PO DAILY@0630 [facility] Last Admin: 04/05/25 06:02 Dose: 20 mg Documented By: JOSÉ ANTONIO Ondansetron HCl (Ondansetron Hcl 4 Mg/2 Ml Vial) 4 mg IVPUSH Q8H PRN PRN Reason: Nausea and Vomiting Last Admin: 04/04/25 19:59 Dose: 4 mg Documented By: JOSÉ ANTONIO Polyethylene Glycol (Polyethylene Glycol 3350 17 Gm Powd.Pack) 17 gm PO DAILY PRN PRN Reason: Constipation Last Admin: 04/04/25 11:57 Dose: 17 gm Documented By: RUDI Sacubitril/Valsartan (Sacubitril/Valsartan 1 Tab Tablet) 1 tab PO BID [facility]; Protocol Last Admin: 04/05/25 08:49 Dose: 1 tab Documented By: RUDI Sodium Chloride (0.9 % Sodium Chloride Flush 3 Ml Syringe) 3 ml IVFLUSH [facility] Last Admin: 04/05/25 01:57 Dose: 3 ml Documented By: JOSÉ ANTONIO Spironolactone (Spironolactone 25 Mg Tablet) 25 mg PO BID@0900,1800 [facility]; Protocol Last Admin: 04/05/25 08:50 Dose: 25 mg Documented By: RUDI Tramadol HCl (Tramadol Hcl 50 Mg Tablet) 50 mg PO Q6H PRN PRN Reason: Pain, Moderate(Pain Scale 4-6) Warfarin Sodium (Warfarin Sodium 5 Mg Tablet) 5 mg PO DAILY@1800 [facility] Last Admin: 04/04/25 18:02 Dose: 5 mg Documented By: RUDI Labs 04/05/25 06:17 04/05/25 06:17 Labs: Laboratory Results - last 24 hr 04/05/25 06:17 MCV 89.6 MCH 30.2 MCHC 33.7 RDW 14.1 Plt Count 156 L MPV 11.0 Immature Gran % (Auto) 0.5 H Neut % (Auto) 66.7 Lymph % (Auto) 23.7 [place] % (Auto) 8.0 Eos % (Auto) 0.7 Baso % (Auto) 0.4 Lymph # (Auto) 1.9 [place] # (Auto) 0.7 Eos # (Auto) 0.1 Baso # (Auto) 0.0 Abs Immat Gran (auto) 0.04 H Absolute Neuts (auto) 5.4 Absolute Nucleated RBC 0.000 Nucleated RBC % (auto) 0.0 PT 26.2 H INR 2.3 H Anion Gap 16 Estim Creat Clear Calc 60.9 Estimated GFR > 60 Random Glucose 131 H Calcium 9.0 Magnesium 2.2 Microbiology Microbiology Results: Microbiology 04/02/25 22:08 Blood Culture - Preliminary Blood - Venous No growth after 48 hours. 04/02/25 22:00 Blood Culture - Preliminary Blood - Venous No growth after 48 hours. Assessment and Plan (1) Congestive heart failure: Status: Acute Plan 79M PMH hfref, pafib, cad, cva, gerd, anxiety presented with sob Acute on chronic CHF with reduced ejection fraction Continue IV Lasix, monitor I/O, BMP Not tolerating Jardiance continue , metoprolol, Aldactone and entresto Cardio input noted Acute kidney injury on CKD 3 Monitor Prolonged QT Amiodarone on hold repeat ECG Paroxysmal AFib Continue metoprolol and Coumadin restart coumadin Ventricular arrythmia mag 1.8 give 2 gram continue metoprolol K goal of 4 amio loading if persistent arrythmia will be considered for ICD at [facility] [place] Anxiety Lorazepam DVT prophylaxis on warfarin Full Code reason for continued hospitalization: Monitoring post diuresis PT eval and paln of care discussed with him and daughter, MOLST form completed\ Quality Stroke Does the patient have a stroke diagnosis?: No VTE Prior VTE?: No VTE Risk Level:: Medical - moderate - high VTE Device Contraindication: Treatment Not Indicated VTE Drug Contraindication: N/A - Med Ordered
--- NOTE | 2025-04-05 15:10 | MHC.CM.PN ---
Pt. not yet ready for DC, anticipate DC over the weekend.
[2025-04-05] MEDS: Furosemide 40 MG/4 ML VIAL IVPUSH (17:45)
[2025-04-06] VITALS (10 sets, daily range): BP systolic 90–112; BP diastolic 54–76; PULSE 83–96; RESP 18–20; TEMP 36.1–36.4; O2SAT 93–98
[2025-04-06 07:12] LABS: INTERNATIONAL NORM RATIO 2.6 (0.9-1.1); Prothrombin Time 29.5 SEC (10.9-12.4)
[2025-04-06 07:19] LABS: Anion Gap 17 (12-20); Blood Urea Nitrogen 19 mg/dL (9-16); Calcium 9.0 mg/dL (8.4-10.2); Carbon Dioxide 27 mmol/L (22-29); Chloride 94 mmol/L (96-108); Creatinine Clr Calc Pharmacy 60.3; Estimated Glomerular Filt Rate > 60; Magnesium 2.0 mg/dL (1.6-2.6); Potassium 3.6 mmol/L (3.3-5.1); Sodium 134 mmol/L (135-145)
[2025-04-06] MEDS: Sacubitril/Valsartan 24/26 1 TAB TABLET PO (08:41)
[2025-04-06] MEDS: Artificial Tears 15 ML DROPS 1 DROP EYE-BOTH (08:41)
[2025-04-06] MEDS: Furosemide 40 MG/4 ML VIAL IVPUSH (08:42)
[2025-04-06] MEDS: 0.9 % Sodium Chloride Flush 3 ML SYRINGE IVFLUSH ×2 (08:42→16:59)
--- NOTE | 2025-04-06 09:28 | P.PNIM_ITS ---
Subjective Subjective Date of Service: 04/06/25 Interval History: Feels less sob today no significant arrhythmia still on iv amio Physical Exam 2 Vital Signs: Vital Signs: Last Vital Signs Temp 97.0 F 04/06/25 08:00 Pulse 83 04/06/25 08:00 Resp 20 04/06/25 08:00 BP 103/65 04/06/25 08:00 Pulse Ox 97 04/06/25 08:00 O2 Del Method Nasal Cannula 04/06/25 08:00 O2 Flow Rate 1.5 04/06/25 08:00 BMI result Body Mass Index 29.9 General: AO X 3, no acute distress Resp: CTA bilateral, no accessory muscles used CVS: S1,S2,RRR, 1 + leg edema GI: soft, non tender, non distended Neuro: motor grossly intact, alert Psych: appropriate affect, appropriate insight Objective Data Active Medications Acetaminophen (Acetaminophen 325 Mg Tablet) 975 mg PO Q6H PRN PRN Reason: Pain, Mild 1-3,fever,headache Last Admin: 04/04/25 21:11 Dose: 975 mg Documented By: JOSÉ ANTONIO Al Hydroxide/Mg Hydroxide (Magnesium Hydrox/Alum Hydrox 30 Ml Oral.Susp) 5 ml PO 5XD PRN PRN Reason: Indigestion Last Admin: 04/03/25 20:18 Dose: 5 ml Documented By: NASEEM Artificial Tears (Artificial Tears 15 Ml Drops) 1 drop EYE-BOTH BID [facility] Last Admin: 04/06/25 08:41 Dose: 1 drop Documented By: LEONARD Atorvastatin Calcium (Atorvastatin Calcium 10 Mg Tablet) 10 mg PO DAILY [facility] Last Admin: 04/06/25 08:41 Dose: 10 mg Documented By: LEONARD Calcium Carbonate (Calcium Carbonate 750 Mg Tab.Chew) 750 mg PO Q4H PRN PRN Reason: Heartburn Last Admin: 04/04/25 21:08 Dose: 750 mg Documented By: JOSÉ ANTONIO Furosemide (Furosemide 40 Mg/4 Ml Vial) 40 mg IVPUSH BID@0900,1800 [facility]; Protocol Last Admin: 04/06/25 08:42 Dose: 40 mg Documented By: LEONARD Amiodarone HCl 900 mg/ Sodium (Chloride) 518 mls @ 34.533 mls/hr IVCONT .Q15H1M [facility]; Protocol Last Admin: 04/06/25 02:09 Dose: Not Given Documented By: JOSÉ ANTONIO Non-Admin Reason: IV Running Comments: volume remaining in bag Lorazepam (Lorazepam 0.5 Mg Tablet) 0.25 mg PO BID PRN PRN Reason: Anxiety Last Admin: 04/06/25 05:46 Dose: 0.25 mg Documented By: JOSÉ ANTONIO Magnesium Hydroxide (Milk Of Magnesia 30 Ml Oral.Susp) 30 ml PO DAILY PRN PRN Reason: Constipation Last Admin: 04/04/25 07:34 Dose: 30 ml Documented By: RUDI Melatonin (Melatonin 3 Mg Tablet) 6 mg PO BEDTIME PRN PRN Reason: Insomnia Last Admin: 04/05/25 21:32 Dose: 6 mg Documented By: JOSÉ ANTONIO Omeprazole (Omeprazole 20 Mg Capsule.Dr) 20 mg PO DAILY@0630 [facility] Last Admin: 04/06/25 05:42 Dose: 20 mg Documented By: JOSÉ ANTONIO Ondansetron HCl (Ondansetron Hcl 4 Mg/2 Ml Vial) 4 mg IVPUSH Q8H PRN PRN Reason: Nausea and Vomiting Last Admin: 04/04/25 19:59 Dose: 4 mg Documented By: JOSÉ ANTONIO Polyethylene Glycol (Polyethylene Glycol 3350 17 Gm Powd.Pack) 17 gm PO DAILY PRN PRN Reason: Constipation Last Admin: 04/04/25 11:57 Dose: 17 gm Documented By: RUDI Sacubitril/Valsartan (Sacubitril/Valsartan 1 Tab Tablet) 1 tab PO BID [facility]; Protocol Last Admin: 04/06/25 08:41 Dose: 1 tab Documented By: LEONARD Sodium Chloride (0.9 % Sodium Chloride Flush 3 Ml Syringe) 3 ml IVFLUSH [facility] Last Admin: 04/06/25 08:42 Dose: 3 ml Documented By: LEONARD Spironolactone (Spironolactone 25 Mg Tablet) 25 mg PO BID@0900,1800 [facility]; Protocol Last Admin: 04/06/25 08:41 Dose: 25 mg Documented By: LEONARD Tramadol HCl (Tramadol Hcl 50 Mg Tablet) 50 mg PO Q6H PRN PRN Reason: Pain, Moderate(Pain Scale 4-6) Warfarin Sodium (Warfarin Sodium 5 Mg Tablet) 5 mg PO DAILY@1800 [facility] Last Admin: 04/05/25 17:44 Dose: 5 mg Documented By: RUDI Labs 04/05/25 06:17 04/06/25 06:06 Labs: Laboratory Results - last 24 hr 04/06/25 06:06 PT 29.5 H INR 2.6 H Anion Gap 17 Estim Creat Clear Calc 60.3 Estimated GFR > 60 Random Glucose 124 H Calcium 9.0 Magnesium 2.0 Microbiology Microbiology Results: Microbiology 04/02/25 22:08 Blood Culture - Preliminary Blood - Venous No growth after 48 hours. 04/02/25 22:00 Blood Culture - Preliminary Blood - Venous No growth after 48 hours. Assessment and Plan (1) Congestive heart failure: Status: Acute Plan 79M PMH hfref, pafib, cad, cva, gerd, anxiety presented with sob Acute on chronic CHF with reduced ejection fraction Continue IV Lasix, monitor I/O, BMP Not tolerating Jardiance continue , metoprolol, Aldactone and entresto Cardio input noted Acute kidney injury on CKD 3 Monitor Prolonged QT Amiodarone on hold repeat ECG Paroxysmal AFib Continue metoprolol and Coumadin restart coumadin Ventricular arrythmia mag 1.8 give 2 gram continue metoprolol K goal of 4 amio loading if persistent arrythmia will be considered for ICD at [facility] Anxiety Lorazepam DVT prophylaxis on warfarin Full Code reason for continued hospitalization: Monitoring post diuresis PT eval and paln of care discussed with him and daughter, MOLST form completed anticipated dc in 24 hrs Quality Stroke Does the patient have a stroke diagnosis?: No VTE Prior VTE?: No VTE Risk Level:: Medical - moderate - high VTE Device Contraindication: Treatment Not Indicated VTE Drug Contraindication: N/A - Med Ordered
--- NOTE | 2025-04-06 12:34 | PM.PNCARD ---
Subjective Subjective Date of Service: 04/06/25 Interval history: Seen and examined at bedside. Overall clinically better. Physical Exam Vital Signs: Last Vital Signs Temp 97.4 F 04/06/25 12:00 Pulse 86 04/06/25 12:00 Resp 20 04/06/25 12:00 BP 92/59 L 04/06/25 12:00 Pulse Ox 93 04/06/25 12:00 O2 Del Method Nasal Cannula 04/06/25 12:00 O2 Flow Rate 0.5 04/06/25 12:00 BMI result Body Mass Index 29.9 GENERAL APPEARANCE: in no acute distress, pleasant. NECK: no carotid bruit. Positive JVD SKIN: no suspicious lesions. Cold lower extremities. HEART: no murmurs, regular rate rhythm. LUNGS: Crackles at bases. ABDOMEN: soft, nontender. EXTREMITIES: no edema. PERIPHERAL PULSES: equal. NEUROLOGIC: No gross deficits, AAO X 3 Objective Labs and Meds 04/05/25 06:17 04/06/25 06:06 Lab results: Laboratory Results - last 24 hr 04/06/25 06:06 PT 29.5 H INR 2.6 H Sodium 134 L Potassium 3.6 Chloride 94 L Carbon Dioxide 27 Anion Gap 17 BUN 19 H Creatinine 1.11 Estim Creat Clear Calc 60.3 Estimated GFR > 60 Random Glucose 124 H Calcium 9.0 Magnesium 2.0 Progress Note: A&P Assessment and plan (1) Congestive heart failure: Status: Acute (2) Atrial flutter: Status: Acute Plan Pleasant 80 year gentleman with cardiomyopathy with EF 20 25% with multiple recent hospitalizations. Presented with decompensated heart failure. He had significant PVC burden with runs of nonsustained VT, potentially AFib with aberrancy and eventually developing atrial flutter yesterday. Doing better with amiodarone infusion. I think we continue amiodarone today IV and transitioned to 200 mg p.o. b.i.d. tomorrow morning. Can change to oral diuretics tomorrow 40 mg twice a day. Continue spironolactone and Entresto. Stop the Toprol-XL. If clinically improved with oral medications that can be discharged back home. Thank you for allowing me to participate in the care of your patient. Please feel free to contact me if you have any questions. Time Spent With Patient Time: Total time managing care of this patient today ____ minutes. Progress Note: Quality Stroke Does the patient have a stroke diagnosis?: No Procedures Date of Service Date of Service: 04/06/25
[2025-04-06] MEDS: Milk of Magnesia 30 ML ORAL.SUSP PO (20:45)
[2025-04-07 03:21] VITALS: BP 110/70; PULSE 93; RESP 20; TEMP 36.4; O2SAT 97
[2025-04-07 07:52] LABS: INTERNATIONAL NORM RATIO 2.9 (0.9-1.1); Prothrombin Time 33.5 SEC (10.9-12.4)
[2025-04-07 08:00] VITALS: BP 107/66; PULSE 89; RESP 20; TEMP 36.4; O2SAT 95
[2025-04-07 08:09] LABS: Anion Gap 15 (12-20); Blood Urea Nitrogen 20 mg/dL (9-16); Calcium 9.0 mg/dL (8.4-10.2); Carbon Dioxide 25 mmol/L (22-29); Chloride 98 mmol/L (96-108); Creatinine Clr Calc Pharmacy 56.3; Estimated Glomerular Filt Rate 59; Magnesium 1.8 mg/dL (1.6-2.6); Potassium 3.8 mmol/L (3.3-5.1); Sodium 134 mmol/L (135-145)
[2025-04-07] MEDS: 0.9 % Sodium Chloride Flush 3 ML SYRINGE IVFLUSH ×3 (09:30→21:29)
[2025-04-07] MEDS: Sacubitril/Valsartan 24/26 1 TAB TABLET PO ×2 (09:30→21:25)
[2025-04-07 12:00] VITALS: BP 101/64; PULSE 94; RESP 20; TEMP 36.2; O2SAT 96
--- NOTE | 2025-04-07 12:00 | P.PNIM_ITS ---
Subjective Subjective Date of Service: 04/07/25 Interval History: Feels less sob today no significant arrhythmia states she has some sob at night but better this morning Physical Exam 2 Vital Signs: Vital Signs: Last Vital Signs Temp 97.6 F 04/07/25 08:00 Pulse 89 04/07/25 08:00 Resp 20 04/07/25 08:00 BP 107/66 04/07/25 08:00 Pulse Ox 95 04/07/25 08:00 O2 Del Method Nasal Cannula 04/07/25 08:00 O2 Flow Rate 2 04/07/25 08:00 BMI result Body Mass Index 29.9 General: AO X 3, no acute distress Resp: CTA bilateral, no accessory muscles used CVS: S1,S2,RRR, 1 + leg edema GI: soft, non tender, non distended Neuro: motor grossly intact, alert Psych: appropriate affect, appropriate insight Objective Data Active Medications Acetaminophen (Acetaminophen 325 Mg Tablet) 975 mg PO Q6H PRN PRN Reason: Pain, Mild 1-3,fever,headache Last Admin: 04/04/25 21:11 Dose: 975 mg Documented By: JOSÉ ANTONIO Al Hydroxide/Mg Hydroxide (Magnesium Hydrox/Alum Hydrox 30 Ml Oral.Susp) 5 ml PO 5XD PRN PRN Reason: Indigestion Last Admin: 04/03/25 20:18 Dose: 5 ml Documented By: NASEEM Amiodarone HCl (Amiodarone Hcl 200 Mg Tablet) 200 mg PO DAILY [facility] Last Admin: 04/07/25 09:30 Dose: 200 mg Documented By: SANTHOSH Artificial Tears (Artificial Tears 15 Ml Drops) 1 drop EYE-BOTH BID [facility] Last Admin: 04/07/25 09:35 Dose: Not Given Documented By: SANTHOSH Non-Admin Reason: Patient Refused Atorvastatin Calcium (Atorvastatin Calcium 10 Mg Tablet) 10 mg PO DAILY [facility] Last Admin: 04/07/25 09:29 Dose: 10 mg Documented By: SANTHOSH Calcium Carbonate (Calcium Carbonate 750 Mg Tab.Chew) 750 mg PO Q4H PRN PRN Reason: Heartburn Last Admin: 04/04/25 21:08 Dose: 750 mg Documented By: JOSÉ ANTONIO Furosemide (Furosemide 40 Mg Tablet) 40 mg PO BID@0900,1800 [facility]; Protocol Last Admin: 04/07/25 09:29 Dose: 40 mg Documented By: SANTHOSH Lorazepam (Lorazepam 0.5 Mg Tablet) 0.25 mg PO BID PRN PRN Reason: Anxiety Last Admin: 04/07/25 10:58 Dose: 0.25 mg Documented By: SANTHOSH Magnesium Hydroxide (Milk Of Magnesia 30 Ml Oral.Susp) 30 ml PO DAILY PRN PRN Reason: Constipation Last Admin: 04/06/25 20:45 Dose: 30 ml Documented By: JOSÉ ANTONIO Melatonin (Melatonin 3 Mg Tablet) 6 mg PO BEDTIME PRN PRN Reason: Insomnia Last Admin: 04/06/25 20:45 Dose: 6 mg Documented By: JOSÉ ANTONIO Omeprazole (Omeprazole 20 Mg Capsule.Dr) 20 mg PO DAILY@0630 [facility] Last Admin: 04/07/25 06:09 Dose: 20 mg Documented By: JOSÉ ANTONIO Ondansetron HCl (Ondansetron Hcl 4 Mg/2 Ml Vial) 4 mg IVPUSH Q8H PRN PRN Reason: Nausea and Vomiting Last Admin: 04/07/25 01:08 Dose: 4 mg Documented By: JOSÉ ANTONIO Polyethylene Glycol (Polyethylene Glycol 3350 17 Gm Powd.Pack) 17 gm PO DAILY PRN PRN Reason: Constipation Last Admin: 04/04/25 11:57 Dose: 17 gm Documented By: RUDI Sacubitril/Valsartan (Sacubitril/Valsartan 1 Tab Tablet) 1 tab PO BID [facility]; Protocol Last Admin: 04/07/25 09:30 Dose: 1 tab Documented By: SANTHOSH Sodium Chloride (0.9 % Sodium Chloride Flush 3 Ml Syringe) 3 ml IVFLUSH [facility] Last Admin: 04/07/25 09:30 Dose: 3 ml Documented By: SANTHOSH Spironolactone (Spironolactone 25 Mg Tablet) 25 mg PO BID@0900,1800 [facility]; Protocol Last Admin: 04/07/25 09:29 Dose: 25 mg Documented By: SANTHOSH Tramadol HCl (Tramadol Hcl 50 Mg Tablet) 50 mg PO Q6H PRN PRN Reason: Pain, Moderate(Pain Scale 4-6) Last Admin: 04/07/25 03:09 Dose: 50 mg Documented By: JOSÉ ANTONIO Warfarin Sodium (Warfarin Sodium 5 Mg Tablet) 5 mg PO DAILY@1800 [facility] On Hold: 04/07/25 09:40 Last Admin: 04/06/25 17:39 Dose: 5 mg Documented By: LEONARD Labs 04/05/25 06:17 04/07/25 06:45 Labs: Laboratory Results - last 24 hr 04/07/25 06:45 PT 33.5 H INR 2.9 H Anion Gap 15 Estim Creat Clear Calc 56.3 Estimated GFR 59 Random Glucose 141 H Calcium 9.0 Magnesium 1.8 Microbiology Microbiology Results: Microbiology 04/02/25 22:08 Blood Culture - Preliminary Blood - Venous No growth after 48 hours. 04/02/25 22:00 Blood Culture - Preliminary Blood - Venous No growth after 48 hours. Assessment and Plan (1) Congestive heart failure: Status: Acute Plan 79M PMH hfref, pafib, cad, cva, gerd, anxiety presented with sob Acute on chronic CHF with reduced ejection fraction Lasix changed to PO does not tolerate Jardiance continue , metoprolol, Aldactone and entresto Cardio input noted Acute kidney injury on CKD 3 Monitor Prolonged QT Amiodarone on hold Monitor Paroxysmal AFib, presently in sinus Continue metoprolol and Coumadin restart coumadin has been on amio gtt, changed to PO 200 bid starting today Ventricular arrythmia mag 1.8 give 2 gram continue metoprolol K goal of 4 Amio as above, and not interested in AICD Anxiety Lorazepam DVT prophylaxis on warfarin Full Code reason for continued hospitalization: Monitoring post diuresis PT eval and paln of care discussed with him and daughter, MOLST form completed anticipated dc in 24 hrs Quality Stroke Does the patient have a stroke diagnosis?: No VTE Prior VTE?: No VTE Risk Level:: Medical - moderate - high VTE Device Contraindication: Treatment Not Indicated VTE Drug Contraindication: N/A - Med Ordered
--- NOTE | 2025-04-07 12:40 | PM.PNCARD ---
Subjective Subjective Date of Service: 04/07/25 Interval history: Seen examined at bedside. Overall feeling better. He said he had some anxiety overnight and has been using Ativan chronically for that. Physical Exam Vital Signs: Last Vital Signs Temp 97.2 F 04/07/25 12:00 Pulse 94 04/07/25 12:00 Resp 20 04/07/25 12:00 BP 101/64 04/07/25 12:00 Pulse Ox 96 04/07/25 12:00 O2 Del Method Room Air 04/07/25 12:00 O2 Flow Rate 2 04/07/25 08:00 BMI result Body Mass Index 29.9 GENERAL APPEARANCE: in no acute distress, pleasant. NECK: no carotid bruit. No significant JVD. SKIN: no suspicious lesions. HEART: no murmurs, regular rate rhythm. LUNGS: Clear to auscultation. ABDOMEN: soft, nontender. EXTREMITIES: no edema. PERIPHERAL PULSES: equal. NEUROLOGIC: No gross deficits, AAO X 3 Objective Labs and Meds 04/05/25 06:17 04/07/25 06:45 Lab results: Laboratory Results - last 24 hr 04/07/25 06:45 PT 33.5 H INR 2.9 H Sodium 134 L Potassium 3.8 Chloride 98 Carbon Dioxide 25 Anion Gap 15 BUN 20 H Creatinine 1.19 Estim Creat Clear Calc 56.3 Estimated GFR 59 Random Glucose 141 H Calcium 9.0 Magnesium 1.8 Progress Note: A&P Assessment and plan (1) Acute decompensated heart failure: Status: Acute (2) Atrial flutter: Status: Acute (3) Congestive heart failure: Status: Acute Plan Pleasant 80 year gentleman with cardiomyopathy with EF 20 25% with multiple recent hospitalizations. Presented with decompensated heart failure. He had significant PVC burden with runs of nonsustained VT, potentially AFib with aberrancy and eventually developing atrial flutter. He was started on amiodarone drip and reverted to sinus rhythm. He has been transitioned to oral amiodarone and I would favor continuing 200 mg twice a day for the next 2 weeks. After that he can be transitioned to once a day amiodarone. Continue rest of his medications with the exception of Toprol-XL which should be held. He will follow up with [facility] do have discussions about atrial flutter ablation. Previously there were some discussions about ICD placement but the patient was reluctant. He will discuss further as he returns for follow-up with [facility]. Thank you for allowing me to participate in the care of your patient. Please feel free to contact me if you have any questions. Time Spent With Patient Time: Total time managing care of this patient today ____ minutes. Progress Note: Quality Stroke Does the patient have a stroke diagnosis?: No Procedures Date of Service Date of Service: 04/07/25
[2025-04-07 15:11] VITALS: BP 101/62; PULSE 90; RESP 16; TEMP 36.2; O2SAT 94
[2025-04-07 20:00] VITALS: BP 124/73; PULSE 90; RESP 16; TEMP 36.2; O2SAT 94
[2025-04-08] VITALS (9 sets, daily range): BP systolic 99–113; BP diastolic 52–71; PULSE 81–99; RESP 16–20; TEMP 36–37; O2SAT 96–98
[2025-04-08 07:46] LABS: INTERNATIONAL NORM RATIO 2.8 (0.9-1.1); Prothrombin Time 32.7 SEC (10.9-12.4)
[2025-04-08] MEDS: 0.9 % Sodium Chloride Flush 3 ML SYRINGE IVFLUSH ×3 (09:10→20:35)
[2025-04-08] MEDS: Sacubitril/Valsartan 24/26 1 TAB TABLET PO (09:10)
[2025-04-08] MEDS: Artificial Tears 15 ML DROPS 1 DROP EYE-BOTH (09:17)
--- NOTE | 2025-04-08 15:01 | HO.PM.IMPN ---
Subjective Subjective Date of Service: 04/08/25 Interval History: Feels less sob today no arrhythmia states she has some sob at night without oxygen but feels better this morning. Physical Exam Vital Signs: Vital Signs: Last Vital Signs Temp 97.4 F 04/08/25 11:15 Pulse 99 04/08/25 11:15 Resp 18 04/08/25 11:15 BP 113/71 04/08/25 11:15 Pulse Ox 96 04/08/25 11:15 O2 Del Method Room Air 04/08/25 11:15 O2 Flow Rate 2 04/08/25 08:00 BMI result Body Mass Index 29.9 General: AO X 3, no acute distress Resp: CTA bilateral, no accessory muscles used CVS: S1,S2,RRR, 1 + leg edema GI: soft, non tender, non distended Neuro: motor grossly intact, alert Psych: appropriate affect, appropriate insight Objective Data Active Medications Acetaminophen (Acetaminophen 325 Mg Tablet) 325 mg PO Q6H PRN PRN Reason: Pain, Mild 1-3,fever,headache Last Admin: 04/07/25 22:21 Dose: 325 mg Documented By: SAMINA Al Hydroxide/Mg Hydroxide (Magnesium Hydrox/Alum Hydrox 30 Ml Oral.Susp) 5 ml PO 5XD PRN PRN Reason: Indigestion Last Admin: 04/03/25 20:18 Dose: 5 ml Documented By: NASEEM Alprazolam (Alprazolam 0.25 Mg Tablet) 0.125 mg PO BID PRN PRN Reason: Anxiety Last Admin: 04/07/25 21:25 Dose: 0.125 mg Documented By: SAMINA Amiodarone HCl (Amiodarone Hcl 200 Mg Tablet) 200 mg PO BIDWM [facility] Last Admin: 04/08/25 09:11 Dose: 200 mg Documented By: SANTHOSH Artificial Tears (Artificial Tears 15 Ml Drops) 1 drop EYE-BOTH BID [facility] Last Admin: 04/08/25 09:17 Dose: 1 drop Documented By: SANTHOSH Atorvastatin Calcium (Atorvastatin Calcium 10 Mg Tablet) 10 mg PO DAILY [facility] Last Admin: 04/08/25 09:11 Dose: 10 mg Documented By: SANTHOSH Calcium Carbonate (Calcium Carbonate 750 Mg Tab.Chew) 750 mg PO Q4H PRN PRN Reason: Heartburn Last Admin: 04/04/25 21:08 Dose: 750 mg Documented By: JOSÉ ANTONIO Furosemide (Furosemide 40 Mg Tablet) 40 mg PO BID@0900,1800 [facility]; Protocol Last Admin: 04/08/25 09:11 Dose: 40 mg Documented By: SANTHOSH Magnesium Hydroxide (Milk Of Magnesia 30 Ml Oral.Susp) 30 ml PO DAILY PRN PRN Reason: Constipation Last Admin: 04/06/25 20:45 Dose: 30 ml Documented By: JOSÉ ANTONIO Melatonin (Melatonin 3 Mg Tablet) 6 mg PO BEDTIME PRN PRN Reason: Insomnia Last Admin: 04/07/25 21:53 Dose: 6 mg Documented By: SAMINA Omeprazole (Omeprazole 20 Mg Capsule.Dr) 20 mg PO DAILY@0630 [facility] Last Admin: 04/08/25 06:09 Dose: 20 mg Documented By: SAMINA Ondansetron HCl (Ondansetron Hcl 4 Mg/2 Ml Vial) 4 mg IVPUSH Q8H PRN PRN Reason: Nausea and Vomiting Last Admin: 04/07/25 18:04 Dose: 4 mg Documented By: SANTHOSH Polyethylene Glycol (Polyethylene Glycol 3350 17 Gm Powd.Pack) 17 gm PO DAILY PRN PRN Reason: Constipation Last Admin: 04/04/25 11:57 Dose: 17 gm Documented By: RUDI Sacubitril/Valsartan (Sacubitril/Valsartan 1 Tab Tablet) 1 tab PO BID [facility]; Protocol Last Admin: 04/08/25 09:10 Dose: 1 tab Documented By: SANTHOSH Sodium Chloride (0.9 % Sodium Chloride Flush 3 Ml Syringe) 3 ml IVFLUSH [facility] Last Admin: 04/08/25 09:10 Dose: 3 ml Documented By: SANTHOSH Spironolactone (Spironolactone 25 Mg Tablet) 25 mg PO BID@0900,1800 [facility]; Protocol Last Admin: 04/08/25 09:10 Dose: 25 mg Documented By: SANTHOSH Tramadol HCl (Tramadol Hcl 50 Mg Tablet) 50 mg PO Q6H PRN PRN Reason: Pain, Moderate(Pain Scale 4-6) Last Admin: 04/07/25 03:09 Dose: 50 mg Documented By: JOSÉ ANTONIO Warfarin Sodium (Warfarin Sodium 3 Mg Tablet) 3 mg PO DAILY@1800 [facility] Labs 04/05/25 06:17 04/07/25 06:45 Labs: Laboratory Results - last 24 hr 04/08/25 06:44 Hold Purple Top SEE NOTE PT 32.7 H INR 2.8 H Microbiology Microbiology Results: Microbiology 04/02/25 22:08 Blood Culture - Final Blood - Venous No growth after 5 days. 04/02/25 22:00 Blood Culture - Final Blood - Venous No growth after 5 days. Assessment and Plan (1) Congestive heart failure: Status: Acute Plan 79M PMH hfref, pafib, cad, cva, gerd, anxiety presented with sob Acute on chronic CHF with reduced ejection fraction Initially treated with IV Lasix Continue PO Lasix Does not tolerate Jardiance continue , metoprolol, Aldactone and entresto Cardio input noted Acute kidney injury on CKD 3 Monitor Prolonged QT Amiodarone on hold Monitor Paroxysmal AFib, presently in sinus Continue metoprolol and Coumadin restart coumadin has been on amio gtt, changed to PO 200 bid starting today Ventricular arrythmia mag 1.8 give 2 gram continue metoprolol K goal of 4 Amio as above, and not interested in AICD NETTA, suppose to be on CPAP but doesn't tolerate it, he desat overnight and will do overnight O2 study Anxiety Lorazepam DVT prophylaxis on warfarin Full Code reason for continued hospitalization: Monitoring post diuresis PT eval and paln of care discussed with him and daughter, MOLST form completed anticipated dc in 24 hrs Quality Stroke Does the patient have a stroke diagnosis?: No VTE Prior VTE?: No VTE Risk Level:: Medical - moderate - high VTE Device Contraindication: Treatment Not Indicated VTE Drug Contraindication: N/A - Med Ordered
--- NOTE | 2025-04-08 16:17 | MHC.CM.PN ---
PER MD ROUNDS/PN, PT TO REMAIN FOR FURTHER MONITORING DCP REMAINS HOME WITH RESUMPTION OF SERVICES
[2025-04-09] VITALS (7 sets, daily range): BP systolic 96–119; BP diastolic 54–84; PULSE 85–95; RESP 14–20; TEMP 36.1–37; O2SAT 92–98
--- NOTE | 2025-04-09 01:09 | PC.RT ---
Pt failed RA NOC Oximetry; placed on 2L NC
[2025-04-09 07:35] LABS: INTERNATIONAL NORM RATIO 2.2 (0.9-1.1); Prothrombin Time 24.9 SEC (10.9-12.4)
--- NOTE | 2025-04-09 08:56 | PC.NURSE ---
Addendum entered by Alfredito Estes RN 04/09/25 09:06: informed MD pt's O2 sat drops at times to 89-93% on room air, mostly stays at or above 94%. Original Note: informed MD of pt's BP and low BP history. Md reviewed pt's med list and stated its ok to administer
[2025-04-09] MEDS: Sacubitril/Valsartan 24/26 1 TAB TABLET PO ×2 (09:03→23:15)
[2025-04-09] MEDS: Artificial Tears 15 ML DROPS 1 DROP EYE-BOTH (09:03)
--- NOTE | 2025-04-09 15:19 | HO.PM.IMPN ---
Subjective Subjective Date of Service: 04/09/25 Interval History: Feels better, reports that he's oxygen dropped during the night, there was supposed to be overnight O2 study however nothing is documented Physical Exam Vital Signs: Vital Signs: Last Vital Signs Temp 98.6 F 04/09/25 12:36 Pulse 89 04/09/25 12:36 Resp 20 04/09/25 12:36 BP 119/73 04/09/25 12:36 Pulse Ox 92 04/09/25 12:36 O2 Del Method Room Air 04/09/25 12:36 O2 Flow Rate 1 04/09/25 08:00 BMI result Body Mass Index 29.9 General: AO X 3, no acute distress Resp: CTA bilateral, no accessory muscles used CVS: S1,S2,RRR, 1 + leg edema GI: soft, non tender, non distended Neuro: motor grossly intact, alert Psych: appropriate affect, appropriate insight Objective Data Active Medications Acetaminophen (Acetaminophen 325 Mg Tablet) 325 mg PO Q6H PRN PRN Reason: Pain, Mild 1-3,fever,headache Last Admin: 04/08/25 19:52 Dose: 325 mg Documented By: JOSÉ ANTONIO Al Hydroxide/Mg Hydroxide (Magnesium Hydrox/Alum Hydrox 30 Ml Oral.Susp) 5 ml PO 5XD PRN PRN Reason: Indigestion Last Admin: 04/03/25 20:18 Dose: 5 ml Documented By: NASEEM Amiodarone HCl (Amiodarone Hcl 200 Mg Tablet) 200 mg PO BIDWM [facility] Last Admin: 04/09/25 09:02 Dose: 200 mg Documented By: KINGS Artificial Tears (Artificial Tears 15 Ml Drops) 1 drop EYE-BOTH BID [facility] Last Admin: 04/09/25 09:03 Dose: 1 drop Documented By: KINGS Atorvastatin Calcium (Atorvastatin Calcium 10 Mg Tablet) 10 mg PO DAILY [facility] Last Admin: 04/09/25 09:02 Dose: 10 mg Documented By: KINGS Calcium Carbonate (Calcium Carbonate 750 Mg Tab.Chew) 750 mg PO Q4H PRN PRN Reason: Heartburn Last Admin: 04/04/25 21:08 Dose: 750 mg Documented By: JOSÉ ANTONIO(2) Furosemide (Furosemide 40 Mg Tablet) 40 mg PO BID@0900,1800 [facility]; Protocol Last Admin: 04/09/25 09:02 Dose: 40 mg Documented By: KINGS Lorazepam (Lorazepam 0.5 Mg Tablet) 0.25 mg PO BID PRN PRN Reason: Anxiety Last Admin: 04/09/25 12:57 Dose: 0.25 mg Documented By: KINGS Magnesium Hydroxide (Milk Of Magnesia 30 Ml Oral.Susp) 30 ml PO DAILY PRN PRN Reason: Constipation Last Admin: 04/06/25 20:45 Dose: 30 ml Documented By: JOSÉ ANTONIO(2) Melatonin (Melatonin 3 Mg Tablet) 6 mg PO BEDTIME PRN PRN Reason: Insomnia Last Admin: 04/08/25 22:44 Dose: 6 mg Documented By: JOSÉ ANTONIO Omeprazole (Omeprazole 20 Mg Capsule.Dr) 20 mg PO DAILY@0630 [facility] Last Admin: 04/09/25 05:55 Dose: 20 mg Documented By: JOSÉ ANTONIO Ondansetron HCl (Ondansetron Hcl 4 Mg/2 Ml Vial) 4 mg IVPUSH Q8H PRN PRN Reason: Nausea and Vomiting Last Admin: 04/07/25 18:04 Dose: 4 mg Documented By: SANTHOSH Polyethylene Glycol (Polyethylene Glycol 3350 17 Gm Powd.Pack) 17 gm PO DAILY PRN PRN Reason: Constipation Last Admin: 04/04/25 11:57 Dose: 17 gm Documented By: RUDI Sacubitril/Valsartan (Sacubitril/Valsartan 1 Tab Tablet) 1 tab PO BID [facility]; Protocol Last Admin: 04/09/25 09:03 Dose: 1 tab Documented By: KINGS Sodium Chloride (0.9 % Sodium Chloride Flush 3 Ml Syringe) 3 ml IVFLUSH QSHIFT [facility] Last Admin: 04/09/25 14:28 Dose: Not Given Documented By: KINGS Non-Admin Reason: Previously Administered Spironolactone (Spironolactone 25 Mg Tablet) 25 mg PO BID@0900,1800 [facility]; Protocol Last Admin: 04/09/25 09:02 Dose: 25 mg Documented By: KINGS Tramadol HCl (Tramadol Hcl 50 Mg Tablet) 50 mg PO Q6H PRN PRN Reason: Pain, Moderate(Pain Scale 4-6) Last Admin: 04/07/25 03:09 Dose: 50 mg Documented By: JOSÉ ANTONIO(2) Warfarin Sodium (Warfarin Sodium 3 Mg Tablet) 3 mg PO DAILY@1800 [facility] Last Admin: 04/08/25 18:07 Dose: 3 mg Documented By: SANTHOSH Zolpidem Tartrate (Zolpidem Tartrate 5 Mg Tablet) 5 mg PO BEDTIME PRN PRN Reason: Insomnia Last Admin: 04/09/25 02:23 Dose: 5 mg Documented By: JOSÉ ANTONIO Labs 04/05/25 06:17 04/07/25 06:45 Labs: Laboratory Results - last 24 hr 04/09/25 07:12 Hold Purple Top SEE NOTE PT 24.9 H D INR 2.2 H Microbiology Microbiology Results: Microbiology 04/02/25 22:08 Blood Culture - Final Blood - Venous No growth after 5 days. 04/02/25 22:00 Blood Culture - Final Blood - Venous No growth after 5 days. Assessment and Plan (1) Congestive heart failure: Status: Acute Plan 79M PMH hfref, pafib, cad, cva, gerd, anxiety presented with sob Acute on chronic CHF with reduced ejection fraction Initially treated with IV Lasix Continue PO Lasix Does not tolerate Jardiance continue , metoprolol, Aldactone and entresto Cardio input noted Acute kidney injury on CKD 3 Monitor Prolonged QT Amiodarone on hold Monitor Paroxysmal AFib, presently in sinus Continue metoprolol and Coumadin restart coumadin has been on amio gtt, changed to PO 200 bid starting today Ventricular arrythmia mag 1.8 give 2 gram continue metoprolol K goal of 4 Amio as above, and not interested in AICD NETTA, suppose to be on CPAP but doesn't tolerate it, Was supposed to have Overnight O2 study, result not in yet Anxiety Lorazepam DVT prophylaxis on warfarin Full Code reason for continued hospitalization: Monitoring post diuresis PT eval and paln of care discussed with him and daughter, MOLST form completed anticipated dc in 24 hrs Quality Stroke Does the patient have a stroke diagnosis?: No VTE Prior VTE?: No VTE Risk Level:: Medical - moderate - high VTE Device Contraindication: Treatment Not Indicated VTE Drug Contraindication: N/A - Med Ordered
--- NOTE | 2025-04-09 22:58 | PC.RT ---
Placed pt on overnight oximetry at 20:20. on room air. sats were 94% to start resting room air
[2025-04-09] MEDS: Magnesium Hydrox/Alum Hydrox 30 ML ORAL.SUSP 5 ML PO (23:18)
[2025-04-10] VITALS: BP 135/67; PULSE 85; RESP 16; TEMP 37; O2SAT 93
[2025-04-10] MEDS: 0.9 % Sodium Chloride Flush 3 ML SYRINGE IVFLUSH ×2 (01:10→09:10)
[2025-04-10 04:00] VITALS: BP 95/60; PULSE 87; RESP 16; TEMP 36.6; O2SAT 100
[2025-04-10 08:00] VITALS: BP 95/60; PULSE 84; RESP 20; TEMP 36.9; O2SAT 95
[2025-04-10 08:09] LABS: INTERNATIONAL NORM RATIO 2.1 (0.9-1.1); Prothrombin Time 24.6 SEC (10.9-12.4)
[2025-04-10] MEDS: Sacubitril/Valsartan 24/26 1 TAB TABLET PO (09:09)
--- NOTE | 2025-04-10 09:27 | P.DS_ITS ---
DS: Providers Provider Date of Service: 04/10/25 Date of admission: 04/03/25 01:19 Date of discharge: 04/10/25 Primary care physician: Yonathan Womack MD Consults: 04/03/25 02:00 Consult to Cardiology Routine Consulting Provider: [facility] Reason for consultation: CHF exacerbation, pericardial effusion Has provider been notified: No DS: Diagnosis Discharge Diagnosis (1) Congestive heart failure: Status: Inactive DS: Summary Hospital Course Hospital Course: admission hpi Chief Complaint: SOB Patient is a 80-year-old male with a past medical history significant for HFrEF (echo 1124 with EF of 25-30% with grade 1 diastolic dysfunction), patient declines ICD, CKD 3A, paroxysmal AFib on warfarin, anxiety and GERD who presented to the ED due to shortness of breath over the past 2 weeks worse with exertion. He reports that associated anxiety but denies any chest pain. States that when he exerts himself I feel like I have a bag over my head . He has had some nausea but no vomiting. He reports he was recently hospitalized at [facility] from 03/27-03/28 for a fib and CHF. Hospital course: 79M PMH hfref, pafib, cad, cva, gerd, anxiety presented with sob and admitted and treated for heart failure, BERNA and arrythmia Acute on chronic CHF with reduced ejection fraction likey preipitated by AFIB. He was initially treated with IV Lasix and once improved transitione to Continue PO Lasix. Further med management includes metoprolol, Aldactone and entresto, Does not tolerate Jardiance. He was seen by cardiology who helped with management. Acute kidney injury on CKD 3, resolved, Creatine back to baseline Paroxysmal AFib, presently in sinus Continue metoprolol, amio started here, and Coumadin Ventricular arrythmia mag 1.8 give 2 gram continue metoprolol K goal of 4. He was loaded with IV amiodarone and now on oral amiodarone 200 mg twice daily. He is not in favovor of having AICD NETTA, suppose to be on CPAP but doesn't tolerate it, Was supposed to have Overnight O2 study. He qualified for overnight O2 and will be discharged with nocturnal O2 Anxiety Lorazepam Discharge home with [facility]NA Time Attestation Discharge Coordination Time (in mins): 45 Quality: Safe Use of Opioids Does Pt have an Active Cancer Diagnosis on the Problem List?: No Quality: Stroke Does the patient have a stroke diagnosis?: No Physical Exam Vital Signs: Vital Signs: Last Vital Signs Temp 98.4 F 04/10/25 08:00 Pulse 84 04/10/25 08:00 Resp 20 04/10/25 08:00 BP 95/60 04/10/25 08:00 Pulse Ox 95 04/10/25 08:00 O2 Del Method Nasal Cannula 04/10/25 08:00 O2 Flow Rate 2 04/10/25 08:00 BMI result Body Mass Index 29.9 DS: Data Data Completed and Pending Labs on day of discharge: Laboratory Results - last 24 hr 04/10/25 06:58 Hold Purple Top SEE NOTE PT 24.6 H INR 2.1 H Discharge Plan Discharge Anticipated Discharge Date/Time: 04/10/25 08:34 Patient Disposition: Home Health Service Discharge Diagnosis: Aflutter, combined systolic and diastolic chf Referrals: [facility] [Outside] - 1 Week Yonathan Womack MD [Primary Care Provider, Medical] - 1 Week Discharge Medications: New zolpidem [Ambien] 5 mg tablet 5 mg PO BEDTIME PRN (Reason: insomnia) Qty: 14 0RF lorazepam 0.5 mg Tablet 0.25 mg PO BID PRN (Reason: Anxiety) Qty: 20 0RF Continued coenzyme Q10 [CoQ-10] 100 mg Capsule 100 mg PO DAILY sacubitril-valsartan [Entresto] 24-26 mg tablet 1 tab PO BID Qty: 60 0RF warfarin 2.5 mg Tablet 7.5 mg PO MOTUTHSA@1800 Protocol: Dose Management Condition: Tuesday (Week One) Dose/Route: 0 mg Instruction: 0 tablets Condition: Tuesday Dose/Route: 7.5 mg Instruction: 3 x 2.5 mg tablets Condition: Tuesday Dose/Route: 7.5 mg Instruction: 3 x 2.5 mg tablets Condition: Tuesday Dose/Route: 5 mg Instruction: 2 x 2.5 mg tablets Condition: Dose/Route: 7.5 mg Instruction: 3 x 2.5 mg tablets Condition: Tuesday Dose/Route: 5 mg Instruction: 2 x 2.5 mg tablets Condition: Tuesday Dose/Route: 7.5 mg Instruction: 3 x 2.5 mg tablets Condition: Tuesday (Week Two) Dose/Route: 5 mg Instruction: 2 x 2.5 mg tablets Condition: Tuesday Dose/Route: 7.5 mg Instruction: 3 x 2.5 mg tablets Condition: Tuesday Dose/Route: 7.5 mg Instruction: 3 x 2.5 mg tablets Condition: Tuesday Dose/Route: 5 mg Instruction: 2 x 2.5 mg tablets Condition: Dose/Route: 7.5 mg Instruction: 3 x 2.5 mg tablets Condition: Tuesday Dose/Route: 5 mg Instruction: 2 x 2.5 mg tablets Condition: Tuesday Dose/Route: 7.5 mg Instruction: 3 x 2.5 mg tablets Protocol Text: Adjustment Start Date: 04/11/25 INR Value: 2.3 INR Date: 04/11/25 Recheck Date: 04/15/25 Additional Instructions: REVIEW FOOD LIST WEEKLY - KEEP UP WEEKLY GREENS THE AMIODARONE YOU ARE ON CAN RAISE THE INR SIGNIFICANTLY. YOUR WARFARIN DOSE IS GOING TO BE DECREASED warfarin 2.5 mg Tablet 5 mg PO SUWEFR@1800 Protocol: Dose Management Condition: Tuesday (Week One) Dose/Route: 0 mg Instruction: 0 tablets Condition: Tuesday Dose/Route: 7.5 mg Instruction: 3 x 2.5 mg tablets Condition: Tuesday Dose/Route: 7.5 mg Instruction: 3 x 2.5 mg tablets Condition: Tuesday Dose/Route: 5 mg Instruction: 2 x 2.5 mg tablets Condition: Dose/Route: 7.5 mg Instruction: 3 x 2.5 mg tablets Condition: Tuesday Dose/Route: 5 mg Instruction: 2 x 2.5 mg tablets Condition: Tuesday Dose/Route: 7.5 mg Instruction: 3 x 2.5 mg tablets Condition: Tuesday ( Two) Dose/Route: 5 mg Instruction: 2 x 2.5 mg tablets Condition: Tuesday Dose/Route: 7.5 mg Instruction: 3 x 2.5 mg tablets Condition: Tuesday Dose/Route: 7.5 mg Instruction: 3 x 2.5 mg tablets Condition: Tuesday Dose/Route: 5 mg Instruction: 2 x 2.5 mg tablets Condition: Dose/Route: 7.5 mg Instruction: 3 x 2.5 mg tablets Condition: Tuesday Dose/Route: 5 mg Instruction: 2 x 2.5 mg tablets Condition: Tuesday Dose/Route: 7.5 mg Instruction: 3 x 2.5 mg tablets Protocol Text: Adjustment Start Date: 04/11/25 INR Value: 2.3 INR Date: 04/11/25 Recheck Date: 04/15/25 Additional Instructions: REVIEW FOOD LIST WEEKLY - KEEP UP WEEKLY [place] THE AMIODARONE YOU ARE ON CAN RAISE THE INR SIGNIFICANTLY. YOUR WARFARIN DOSE IS GOING TO BE DECREASED omeprazole 20 mg capsule,delayed release(DR/EC) 20 mg PO DAILY@0630 simvastatin 20 mg tablet 10 mg PO DAILY spironolactone 25 mg tablet 25 mg PO DAILY@1200 furosemide 20 mg tablet 40 mg PO BID@0700,1400 Patient Comments: DOSE INCREAESED Discontinued metoprolol succinate 25 mg tablet extended release 24 hr 25 mg PO DAILY lorazepam 0.5 mg tablet 0.5 mg PO BID PRN (Reason: Anxiety) metoprolol succinate 25 mg tablet extended release 24 hr 12.5 mg PO DAILY PRN (Reason: Hypertension) No Action amiodarone 200 mg tablet 200 mg PO BID Discharge Orders: Discharge Order (Routine); Ordered 04/10/25 Ordered By: Max Lara Diet: Advance to usual diet Activity on Discharge: As tolerated Stand Alone Forms: Patient Portal Discharge page Print Language: Salvadorean Care Plan Goals: recovery from heart failure and atrial fibrilation Health Concerns: chronic heart failure Atrial fibirlation Plan of Treatment: the following modification has been made to your medications: amiodarone 1 tab (200 mg) twice a day for 2 weeks, ending April 20, and starting take 1 tab (200 mg) daily take coumadin as before and follow up with coumadin clinic stop taking metoprolol and Follow up with your Doctor in a week Follow up with your heart doctor in 7 to 10 days Take ambien as needed for sleep take Ativan 0.25 mg twice daily as needed for anxiety Use oxygen at night to sleep Assessment: see above Patient Instructions: Amiodarone (By mouth), Zolpidem (By mouth) Discharge Date/Time: 04/10/25 12:15
--- NOTE | 2025-04-10 09:50 | W.MHC.F2F ---
Service Date Service Date: 04/10/25 Encounter Date of encounter: 04/10/25 Reasons for Services Signs and symptoms assessed: heart failure causing shortness of breath Reason for group home: medication management, medication treatment and teach disease management Homebound: Leaving the home is medically contraindicated at this time without the asist of a device and/or another person due th the listed conditions above and below. Reason homebound: shortness of breath with minimal effort Homebound supporting statement: Homebound due to shortness of breath from heart failure limitting activities and therefore needing the assistnce of another person Certification: Based on the above findings, I certify that this patient is confined to the home and needs intermittent group home care, physical therapy and/or speech therapy, or continues to need occupational therapy. The patient is under my care, and I have initiated the establishment of the plan of care. The patient will be followed by a physician who will periodically review the plan of care. Time Spent With Patient Time: Total time managing care of this patient today ____ minutes.
--- NOTE | 2025-04-10 11:27 | MHC.CM.PN ---
Second IMM 04/10/25, Pt has been medically cleared to DC, he will go home via private transport and resume his home care from [facility], and he has no O2 at night.
== END 2025-04-10 12:15 | disposition home health service (06) | DRG 292 ==
LOC: HO.ED 22:15 → HO.EDOVER 04-03 01:22 → HO.IMC 04-03 10:03
PROVIDERS: Physician Assistant; Admitting Provider Internal Medicine; Emergency Provider Emergency Medicine; PCP Internal Medicine; Visit Provider Internal Medicine
DX: I50.43 Acute on chronic combined systolic (congestive) and diastolic (congestive) heart failure (principal); I31.39 Other pericardial effusion (noninflammatory); R65.10 Systemic inflammatory response syndrome (SIRS) of non-infectious origin without acute organ dysfunction; I42.9 Cardiomyopathy, unspecified; I47.20 Ventricular tachycardia, unspecified; N18.31 Chronic kidney disease, stage 3a; G47.33 Obstructive sleep apnea (adult) (pediatric); I49.3 Ventricular premature depolarization; F41.9 Anxiety disorder, unspecified; E87.6 Hypokalemia; K21.9 Gastro-esophageal reflux disease without esophagitis; I48.0 Paroxysmal atrial fibrillation; Z91.199 Patient's noncompliance with other medical treatment and regimen due to unspecified reason; Z20.822 Contact with and (suspected) exposure to COVID-19; Z87.891 Personal history of nicotine dependence; Z79.01 Long term (current) use of anticoagulants; Z79.899 Other long term (current) drug therapy
CPT/HCPCS: 36415; 71045; 80048; 80053; 83605; 83735; 83880; 84484; 85025; 85610; 87040; 87637; 93005; 93306; 94762; 97162; 97530; 99285; J0282; J0283; J0696; J1938; J2405; J3475; P9047

== ENCOUNTER → 2025-04-02 21:38 | Outpatient (BNV) | payer MEDICARE, MEDICAID, SELFPAY | PROVIDERS: Admitting Provider Internal Medicine; Emergency Provider Emergency Medicine; PCP Internal Medicine; Visit Provider Internal Medicine Cardiovascular Disease | DX: I49.3 Ventricular premature depolarization (principal); I49.1 Atrial premature depolarization; I44.0 Atrioventricular block, first degree; I44.4 Left anterior fascicular block | CPT/HCPCS: 93010 ==

== ENCOUNTER 2025-04-03 01:19 | Outpatient (BNV) | payer MEDICARE, MEDICAID, SELFPAY | END 2025-04-04 18:05 | PROVIDERS: Admitting Provider Internal Medicine; Emergency Provider Emergency Medicine; PCP Internal Medicine; Visit Provider Internal Medicine Cardiovascular Disease | DX: I48.92 Unspecified atrial flutter (principal); I49.3 Ventricular premature depolarization; I44.4 Left anterior fascicular block | CPT/HCPCS: 93010 ==

== ENCOUNTER 2025-04-03 01:19 | Outpatient (BNV) | payer MEDICARE, MEDICAID, SELFPAY | END 2025-04-05 02:53 | PROVIDERS: Admitting Provider Internal Medicine; Emergency Provider Emergency Medicine; PCP Internal Medicine; Visit Provider Internal Medicine Cardiovascular Disease | DX: I44.0 Atrioventricular block, first degree (principal); I49.1 Atrial premature depolarization; I44.4 Left anterior fascicular block | CPT/HCPCS: 93010 ==

== ENCOUNTER → 2025-04-03 01:19 | Outpatient (BNV) | payer MEDICARE, MEDICAID, SELFPAY | PROVIDERS: Admitting Provider Internal Medicine; Emergency Provider Emergency Medicine; PCP Internal Medicine; Visit Provider Physician Assistant | DX: I50.9 Heart failure, unspecified (principal) | CPT/HCPCS: 99223; 99232; 99499 ==

== ENCOUNTER → 2025-04-03 01:19 | Outpatient (BNV) | payer MEDICARE, MEDICAID, SELFPAY | PROVIDERS: Admitting Provider Internal Medicine; Emergency Provider Emergency Medicine; PCP Internal Medicine; Visit Provider Internal Medicine Cardiovascular Disease | DX: I50.9 Heart failure, unspecified (principal); I31.39 Other pericardial effusion (noninflammatory) | CPT/HCPCS: 93010; 99223 ==

== ENCOUNTER → 2025-04-13 22:16 | Outpatient (BNV) | payer MEDICARE, MEDICAID, SELFPAY | PROVIDERS: Emergency Provider Emergency Medicine; Visit Provider Radiology Diagnostic Radiology | DX: R06.02 Shortness of breath (principal) | CPT/HCPCS: 71046 ==

== ENCOUNTER 2025-04-13 22:24 | Inpatient (IN) | payer MEDICARE, MEDICAID, SELFPAY ==
--- OUTSIDE RECORDS SUMMARY | 2025-04-12 07:44 | XMS_ITS ---
Author Organization Yonathan Womack MD Address [address] [place] [phone] Care Team Providers Care Quality Liaison Name Role Phone Yonathan Womack Primary Care Provider [phone] REASON FOR VISIT foot swollen Encounters Encounter Location Date Provider Diagnosis Yonathan Womack MD [address] [facility] [address] [place] [phone] 04/12/2025 Yonathan Womack Plan Of Treatment Next Appt Details Provider Name:Yonathan mendoza, 06/06/2025 10:00:00 AM, [address] [place] [address], [place] [address], [place], [place], [phone], Provider Name:Yonathan mendoza, 09/17/2025 07:45:00 AM, [address] [place] [address], [address], [phone], Provider Name:Yonathan mendoza, 09/24/2025 01:00:00 PM, [address] [place] [address], [address], [phone], Progress Notes * STEVEN NUNEZDOB: [birth year] (80 yo M)Acc No.[id number]:04/12/2025 Patient: STEVEN SOSA :1945 A ge:80 Y S ex:Male Address:[address] [place] [address], [place] [address] * true * Date: Generated for Douglas whitehead/Galina/Madyitting on: 0 04/13/2025 11:09 PM EDT
--- NOTE | 2025-04-13 | ECG_ITS ---
Test Reason : SOB, AFIB Blood Pressure : */* mmHG Vent. Rate : 88 BPM Atrial Rate : 88 BPM P-R Int : 254 ms QRS Dur : 132 ms QT Int : 404 ms P-R-T Axes : -14 -56 60 degrees QTcB Int : 488 ms Sinus rhythm with 1st degree A-V block with Premature atrial complexes with Aberrant conduction Left axis deviation Non-specific intra-ventricular conduction block Minimal voltage criteria for LVH, may be normal variant ( [place] product ) Abnormal ECG When compared with ECG of 05-Apr-2025 02:53, No significant change was found Referred By: Generic ED Physician Electronically Signed By: ANILA LINCOLN
--- NOTE | ~2025-04-13 | XR_ITS ---
CLINICAL HISTORY: shortness of breath 2 view chest x-ray Comparison: CR - XR CHEST 1V - 04/02/25 21:34 EDT Findings: Left retrocardiac patchy opacities/atelectasis with small effusion. No pneumothorax. Similar prominent/enlarged cardiac silhouette. No acute fracture. IMPRESSION: Left retrocardiac patchy opacities/atelectasis with small effusion. This document has been electronically signed by: Qasim Bingham MD on 04/14/2025 00:47:13
--- NOTE | ~2025-04-13 | CT_ITS ---
CLINICAL HISTORY: esophageal mass vs structure, cant swallow --- Additional Notes or Special Instructions: cant have contrast CT soft tissue neck without contrast Comparison: None provided Findings: No defined exophytic mass of the imaged aerodigestive tract in this noncontrast study. Mild accentuated imaged vocal cords is nonspecific by CT of the time of the imaging. Soft tissue fullness of the pharynx including of the left nasopharynx in this noncontrast study. Mucosal thickening includes imaged paranasal sinuses with chronic appearing remodeling. Asymmetry of the globes central lines is nonspecific and likely accentuated by positioning. Imaged mastoid air cells are well aerated. Volume loss is partially imaged intracranially. Nonenlarged cervical lymphadenopathy in this noncontrast CT by CT size criteria. Vascular calcifications noted. Bilateral pleural effusions are partially imaged, right larger than left with underlying atelectasis of the imaged lungs. Disc osteophyte complexes and facet arthropathy are multifocal in the imaged spine. Mild osteoarthritis of the temporomandibular joints without dislocation. Metal and lucencies or stenosis of the multiple remaining imaged teeth. IMPRESSION: 1. No exophytic mass of the imaged aerodigestive tract in this noncontrast study. 2. Soft tissue fullness of the nasopharynx of the left-sided and nonspecific. Please consider correlation with direct visualization. 3. Bilateral pleural effusions in the [id number], right larger than left This document has been electronically signed by: Erick Thurman MD on 04/14/2025 01:42:10
--- NOTE | ~2025-04-13 | CT_ITS ---
CLINICAL HISTORY: pna vs pleural effsuins --- Additional Notes or Special Instructions: captured on neck ct CT chest without contrast Comparison: CT/REG/SR - CT CHEST WO IV CON - 05/17/22 01:32 EDT Findings: The heart is enlarged. Trace pericardial effusion. Moderate coronary and aortic valvular calcification. No significant hilar or mediastinal adenopathy. No chest wall lesions or axillary adenopathy. Unremarkable thyroid. Decompressed esophagus. Small to moderate right and small left pleural effusions. This is associated with some compressive atelectasis. Bilateral pleural calcification. Mild septal thickening in the lung apices. The upper abdomen demonstrates no acute findings. The bones are intact. Exaggerated thoracic kyphosis with multilevel degenerative change. IMPRESSION: 1. Small to moderate right and small left pleural effusions with compressive atelectasis. Mild septal thickening in the lung apices. Findings are concerning for fluid overload or edema. Stable cardiac enlargement. 2. No dense consolidation to suggest pneumonia. This document has been electronically signed by: Romy Laguna MD on 04/14/2025 06:36:00
--- NOTE | ~2025-04-13 | FL_ITS ---
EXAMINATION: XR BARIUM SWALLOW CLINICAL INFORMATION: Dysphagia. COMPARISON: CT chest 04/14/2025. TECHNIQUE: Routine upright barium swallow with barium tablet in thin and thick barium was performed. Patient is unable to lie supine. FINDINGS: On oral administration of thin and thick barium there is normal propagation bolus from the oral cavity through the pharynx, esophagus into stomach. The mid esophagus is dilated with tapered narrowing of distal esophagus from compression due to underlying enlarged left atrium as seen on CT chest exam 04/14/2025. The GE junction is patent but no obstruction or stricture seen. There is diminished peristalsis in the mid to distal esophagus. On oral administration of barium tablet there was initial difficulty in oral swallowing. After swallowing the tablet at was stuck in the valleculae and clear with several swallows of water. Also noted on CT chest exam is enlarged left ventricle. There is mild to moderate atherosclerotic calcification of aortic valve with normal-appearing aorta. FLUOROSCOPY TIME: 2 minute 38 seconds DOSE AREA PRODUCT: 1253 uGy-m2 (microgray-meter squared) FL/FL barium swallow IMPRESSION: Dilated mid esophagus and tapered narrowing of distal esophagus likely secondary to enlarged left atrium. No obstructive etiology seen. The GE junction is otherwise widely patent. The barium tablet initially got stuck in the valleculae but cleared with subsequent swallowing of water. Electronically signed by: Brennan Mcginnis MD 04/18/2025 02:17 PM EDT
[2025-04-13 22:49] VITALS: BP 118/67; PULSE 99; O2SAT 95
[2025-04-13 22:55] VITALS: BP 106/63; PULSE 98; RESP 16; TEMP 36.4; O2SAT 93; BMI 28.0
[2025-04-13 23:30] VITALS: BP 98/54
[2025-04-13 23:46] LABS: Hematocrit 36.9 % (42.0-52.0); Hemoglobin 12.9 g/dl (14.0-18.0); Imm Gran Abs Auto 0.03 X10*3/uL (0.00-0.03); Imm Gran Pct Auto 0.4 % (0.0-0.4); Lymphocytes Absolute Auto 2.2 X10*3/uL (1.2-4.9); MANUAL DIFF FLAG NO; Mean Corpuscular HGB Conc 35.0 g/dl (31.0-36.0); Mean Corpuscular Hemoglobin 30.8 pg (27.0-33.0); Mean Corpuscular Volume 88.1 fL (80.0-98.0); NRBC Abs Auto 0.000 X10*3/uL (0.0-0.012); NRBC Pct Auto 0.0 /100WBC (0.0-0.2); Platelet Count 169 X10*3/uL (160-400); Red Blood Count 4.19 X10*6/uL (4.60-5.80); White Blood Count 8.0 X10*3/uL (4.8-10.8)
[2025-04-13 23:51] LABS: INTERNATIONAL NORM RATIO 2.8 (0.9-1.1); Prothrombin Time 32.7 SEC (10.9-12.4)
[2025-04-14] VITALS (12 sets, daily range): BP systolic 96–127; BP diastolic 49–73; PULSE 83–103; RESP 14–20; TEMP 36.1–37.3; O2SAT 95–99; BMI 26.2
[2025-04-14 00:03] LABS: Alanine Aminotransferase 19 U/L (0-40); Albumin Level 4.2 g/dL (3.5-5.0); Alkaline Phosphatase 75 U/L (39-117); Anion Gap 17 (12-20); Aspartate Amino Transferase 28 U/L (5-37); Blood Urea Nitrogen 22 mg/dL (9-16); Calcium 10.3 mg/dL (8.4-10.2); Carbon Dioxide 26 mmol/L (22-29); Chloride 97 mmol/L (96-108); Creatinine Clr Calc Pharmacy 49.3; Estimated Glomerular Filt Rate 47; Magnesium 1.9 mg/dL (1.6-2.6); Potassium 3.9 mmol/L (3.3-5.1); Sodium 136 mmol/L (135-145); Total Protein 6.6 g/dL (6.5-8.0)
[2025-04-14 00:07] LABS: B Type Natriuretic Peptide 2145 pg/mL (<100)
[2025-04-14 00:10] LABS: Troponin-I High Sensitivity 58.8 ng/L (<3.5-35.0)
[2025-04-14 00:23] LABS: COVID-19 Test Negative (Negative); IDNOW Serial# 55D5AD1C
[2025-04-14 02:17] LABS: Troponin-I High Sensitivity 57.3 ng/L (<3.5-35.0)
--- NOTE | 2025-04-14 02:43 | ED.GENADULT ---
HPI - General Adult General Chief complaint: Dyspnea Stated complaint: nausea & retaining water HX of CHF Time Seen by Provider: 04/13/25 23:30 Source: patient Limitations: no limitations History of Present Illness ED Provider: Amita Bartlett PA-C HPI narrative: 80-year-old male with a history of HTN, HLD, HFrEF (echo 1124 with EF of 25-30% with grade 1 diastolic dysfunction), patient declines ICD, CKD 3A, paroxysmal AFib on warfarin, anxiety and GERD presents with multiple complaints. Patient states he feels short of breath, slight difference from his baseline. Associated orthopnea, dyspnea with exertion. Denies chest pain, unintentional weight gain, worsening pedal edema. Denies recent cough cold symptoms or fever. In addition, patient states he has been having an adverse reaction to the amiodarone that he takes. He states it causes him to feel as if he excessively has to clear his throat, he states he feels as if his throat is ?tightening?. Patient states this causes him to gag. Denies abdominal pain nausea or vomiting. Patient states when he uses a throat lozenge, it minimizes his symptoms. Patient states he has been having difficulty swallowing food and liquid. He states he can barely eat, he will consume small quantities of soft foods. He states it takes quite a long time for him to be able to swallow the food. He is not refluxing what he is eating or drinking. He states he feels as if it gets stuck within the mid chest, when he eats. Related Data Home Medications ?Medication ?Instructions ?Recorded ?Confirmed omeprazole 20 mg capsule,delayed 20 mg PO DAILY@0630 11/14/20 04/11/25 release coenzyme Q10 100 mg capsule 100 mg PO DAILY 04/14/21 04/11/25 (CoQ-10) carboxymethylcellulose sodium 0.5 1 drp ophthalmic (eye) BID 11/30/22 04/11/25 % eye drops (Refresh Tears) simvastatin 20 mg tablet 10 mg PO DAILY 11/19/24 04/11/25 furosemide 20 mg tablet 40 mg PO BID@0700,1400 12/17/24 04/11/25 spironolactone 25 mg tablet 25 mg PO DAILY@1200 01/17/25 04/11/25 aluminum-mag hydroxide-simethicone 5 ml PO 5XD PRN Indigestion 04/03/25 04/11/25 200 mg-200 mg-20 mg/5 mL oral susp warfarin 2.5 mg tablet 5 mg PO SUWE@1800 04/03/25 04/11/25 warfarin 2.5 mg tablet 7.5 mg PO MOTUTHFRSA@1800 04/03/25 04/11/25 Previous Rx's ?Medication ?Instructions ?Recorded sacubitril 24 mg-valsartan 26 mg 1 tab PO BID #60 tabs 12/01/22 tablet (Entresto) amiodarone 200 mg tablet See Rx Instructions .Route 04/10/25 .COMPLEX #120 tabs lorazepam 0.5 mg tablet 0.25 mg (1/2 x 0.5 mg) PO BID PRN 04/10/25 Anxiety #20 tabs zolpidem 5 mg tablet (Ambien) 5 mg PO BEDTIME PRN insomnia #14 04/10/25 tabs Allergies Allergy/AdvReac Type Severity Reaction Status Date / Time adenosine Allergy Severe cardiac, Verified 04/13/25 22:59 elevated BP, Stroke Gadolinium-Containing Allergy Severe red eyes Verified 04/13/25 22:59 Contrast Medi Iodinated Contrast Media Allergy Severe Seizure Verified 04/13/25 22:59 (CONTRAST, IV) carvedilol Allergy Intermediate disorientat Verified 04/13/25 22:59 ion erythromycin base AdvReac Unknown Gut Verified 04/13/25 22:59 pain , Abdominal Pain, GI upset Review of Systems Review of Systems: Yes all other systems are reviewed and are negative Constitutional: Constitutional: Denies fatigue and Denies fever(s) ENT: Reports dysphagia, Reports sore throat and Denies throat swelling Cardiovascular: Cardiovascular: Denies chest pain, Reports dyspnea and Reports dyspnea on exertion Respiratory: Respiratory: Denies chest congestion, Denies cough, Reports dyspnea, Reports dyspnea on exertion and Denies wheezing Gastrointestinal: Gastrointestinal: Denies abdominal pain, Reports dysphagia, Denies nausea and Denies vomiting Endocrine: Endocrine: Denies fatigue Allergic/Immunologic: Allergic/Immunologic: Denies throat swelling and Denies wheezing PMFSH Past Medical History Attestation statement: The following information was validated with the patient. Medical History Acute on chronic combined systolic and diastolic CHF (congestive heart failure) Orthopnea Anxiety Myocardial infarct, old CHF (congestive heart failure) CVA (cerebral vascular accident) A-fib Surgical History History of appendectomy Social History Social History Household Members: None Housing: House Do you presently have visiting nurse or other home services: Yes (dressing, laundry, cleaning, cooking, etc) Alcohol intake: former Patient Tobacco Use Status: Former Tobacco user Smoked in Last 30 Days: No Use of substances other than those prescribed or required for medical reasons: No Advance Directives: No Advance Directives Information Provided: No Do you have a plan to hurt others: No Plan service: Yes Current occupational status: disabled Physical Exam ED Vital Signs: Vital Signs - 24 hr 04/13/25 22:55 04/13/25 23:30 04/14/25 00:02 Temperature 97.5 F 99.2 F Pulse Rate 98 103 H Respiratory Rate 16 14 Blood Pressure 106/63 98/54 L 100/63 Pulse Oximetry 93 98 Oxygen Delivery Method Room Air Nasal Cannula Oxygen Flow Rate 2 04/14/25 03:20 Temperature Pulse Rate 98 Respiratory Rate 18 Blood Pressure 99/49 L Pulse Oximetry 99 Oxygen Delivery Method Nasal Cannula Oxygen Flow Rate 2 BMI result Body Mass Index 28.0 Const Other: Awake, ill-appearing Orientation/consciousness: patient oriented x3 HENMT Other: Oropharynx is clear, uvula midline, mildly erythematous Resp Other: Nonlabored respirations, speaking in full sentences, no wheezing, faint basilar crackles Cardio Other: Bilateral pitting edema Skin Other: Warm dry no rash Neuro General: patient oriented x3, gait normal, no focal motor deficits and CN's II-XI intact bilaterally Psych Other: Anxious Course Reevaluation(s) Reevaluation #1: Chest x-ray reveals patchy opacity versus atelectasis with pleural effusion, pneumonia can not be excluded, we will start antibiotics. Obtaining a CT scan to better differentiate..... CTA of the neck was unremarkable Reevaluation #2: Patient's pressures are soft, I have considered Bumex, holding for now Medications Administered Discontinued Medications Generic Name Dose Route Start Last Admin Trade Name Freq PRN Reason Stop Dose Admin Ceftriaxone Sodium 2 gm 04/14/25 01:09 04/14/25 01:35 Ceftriaxone Sodium 2 Gm Vial IVPUSH 04/14/25 01:10 2 gm ONCE ONE Administration Doxycycline Hyclate 100 mg/ 250 mls @ 166.67 mls/hr 04/14/25 01:32 04/14/25 01:45 Sodium Chloride IV 04/14/25 03:01 166.67 mls/hr ONCE ONE Administration Medical Decision Making Medical Decision Making MDM Narrative: 80-year-old male with a history of HTN, HLD, HFrEF (echo 1124 with EF of 25-30% with grade 1 diastolic dysfunction), patient declines ICD, CKD 3A, paroxysmal AFib on warfarin, anxiety and GERD presents with multiple complaints. Patient states he feels short of breath, slight difference from his baseline. Associated orthopnea, dyspnea with exertion. Denies chest pain, unintentional weight gain, worsening pedal edema. Denies recent cough cold symptoms or fever. In addition, patient states he has been having an adverse reaction to the amiodarone that he takes. He states it causes him to feel as if he excessively has to clear his throat, he states he feels as if his throat is ?tightening?. Patient states this causes him to gag. Denies abdominal pain nausea or vomiting. Patient states when he uses a throat lozenge, it minimizes his symptoms. Patient states he has been having difficulty swallowing food and liquid. He states he can barely eat, he will consume small quantities of soft foods. He states it takes quite a long time for him to be able to swallow the food. He is not refluxing what he is eating or drinking. He states he feels as if it gets stuck within the mid chest, when he eats. Problem: Age, significant cardiac history, anxiety History: Per patient I have considered the following differential diagnoses: ACS, heart failure, pneumonia, viral syndrome, esophageal stricture, esophageal mass, side-effect from amiodarone, anxiety, COPD exacerbation Plan: Newly hypoxic, I hear basilar crackles, he has evidence of volume overload on exam, he likely is in heart failure. We will be screening basic labs, troponin, BNP, EKG and chest x-ray. His pressures around the soft side, I am holding on diuresis for now. He could also have an underlying infectious process, we will concurrently obtain viral panel, blood cultures and a lactic, in the event he requires antibiotics. This is not COPD exacerbation, he is not wheezing, there was also adequate air movement on exam. In regard to the patient's dysphagia, he likely has dry mouth secondary to the amiodarone, his symptoms are with sucking on a throat lozenge. However, patient reports he can barely eat and drank, that it takes quite some time for him to swallow. Obtaining imaging of the neck. He essentially needs GI for endoscopy, he has pending follow up with Dr. Hughes. I have independently reviewed the following tests: Labs: No leukocytosis, not anemic, no electrolyte abnormality, creatinine 1.44, lactic 1.5, no change in LFTs, 1st troponin 58.8, 2nd troponin 57.3, BNP 2145, COVID negative EKG: Sinus rhythm with first-degree AV block, PACs noted, rate of 88, no change from prior study April 05 of this year, QTC 488 Chest x-ray:Findings: Left retrocardiac patchy opacities/atelectasis with small effusion. No pneumothorax. Similar prominent/enlarged cardiac silhouette. No acute fracture. IMPRESSION: Left retrocardiac patchy opacities/atelectasis with small effusion. CT soft tissue neck: IMPRESSION: 1. No exophytic mass of the imaged aerodigestive tract in this noncontrast study. 2. Soft tissue fullness of the nasopharynx of the left-sided and nonspecific. Please consider correlation with direct visualization. 3. Bilateral pleural effusions in the [id number], right larger than left CT chest: Differential Diagnosis Differential Diagnoses: The differential diagnosis associated with the presentation includes See [facility] Admission/Observation Consideration of admission/observation: Escalation of care including admission/observation considered Patient will be admitted Consult Healthcare Provider Management of the patient was discussed with: Hospitalist Lab Data [facility] Lab Attestation statement: I reviewed the patient's lab results. 04/13/25 23:36 04/13/25 23:36 Labs: Lab Results 04/13/25 04/13/25 04/14/25 Range/Units 23:36 23:39 01:51 WBC 8.0 (4.8-10.8) X10*3/uL RBC 4.19 L (4.60-5.80) X10*6/uL Hgb 12.9 L (14.0-18.0) g/dl Hct 36.9 L (42.0-52.0) % MCV 88.1 (80.0-98.0) fL MCH 30.8 (27.0-33.0) pg MCHC 35.0 (31.0-36.0) g/dl RDW 14.1 (11.0-16.0) % Plt Count 169 (160-400) X10*3/uL MPV 10.5 (9.4-12.4) fL Immature Gran % (Auto) 0.4 (0.0-0.4) % Neut % (Auto) 63.2 (45-73) % Lymph % (Auto) 27.2 (20-40) % Placer % (Auto) 8.0 (2-11) % Eos % (Auto) 0.8 (0-4) % Baso % (Auto) 0.4 (0-2) % Lymph # (Auto) 2.2 (1.2-4.9) X10*3/uL Placer # (Auto) 0.6 (0.1-1.2) X10*3/uL Eos # (Auto) 0.1 (0.0-0.4) X10*3/uL Baso # (Auto) 0.0 (0.0-0.2) X10*3/uL Abs Immat Gran (auto) 0.03 (0.00-0.03) X10*3/uL Absolute Neuts (auto) 5.1 (2.0-8.3) x10*3/uL Absolute Nucleated RBC 0.000 (0.0-0.012) X10*3/uL Nucleated RBC % (auto) 0.0 (0.0-0.2) /100WBC PT 32.7 H D (10.9-12.4) SEC INR 2.8 H (0.9-1.1) Sodium 136 (135-145) mmol/L Potassium 3.9 (3.3-5.1) mmol/L Chloride 97 (96-108) mmol/L Carbon Dioxide 26 (22-29) mmol/L Anion Gap 17 (12-20) BUN 22 H (9-16) mg/dL Creatinine 1.44 H (0.5-1.4) mg/dL Estim Creat Clear Calc 49.3 Estimated GFR 47 Fasting Glucose 134 H (60-99) mg/dL Lactic Acid 1.5 (0.5-2.0) mmol/L Calcium 10.3 H D (8.4-10.2) mg/dL Magnesium 1.9 (1.6-2.6) mg/dL Total Bilirubin 1.1 H (0.0-1.0) mg/dL AST 28 (5-37) U/L ALT 19 (0-40) U/L Alkaline Phosphatase 75 (39-117) U/L Troponin I High Sens 58.8 H 57.3 H (<3.5-35.0) ng/L B-Natriuretic Peptide 2145 H (<100) pg/mL Total Protein 6.6 (6.5-8.0) g/dL Albumin 4.2 (3.5-5.0) g/dL COVID-19 (SNOW) Negative (Negative) COVID-19 Clin Com See Note Radiology Impression Discussion of test interpretation with radiology: I have reviewed the radiologist's reading. Chronic Conditions Patient?s care impacted by: Hypertension Critical Care Time Critical Care Time Critical Care Time: Yes Total Critical Care Time: 35 Attestation: I Amita Bartlett have personally performed 35 minutes of critical care time not including lines and procedures; pneumonia, heart failure, need for IV antibiotic and other medications Discharge Plan Discharge Clinical Impression: Hypoxia, CHF exacerbation, Pleural effusion, Pneumonia, Dysphagia Patient Disposition: Admitted As Inpatient Print Language: Afghan
--- NOTE | 2025-04-14 03:25 | PC.NURSE ---
this rn attempted to medicate pt according to mar with bumex. bp prior to administration toshia lelia made aware per lelia medication discontinued
--- NOTE | 2025-04-14 05:39 | PM.IMHP ---
History of Present Illness Date of Service: 04/14/25 Attending physician on admission: Beatrice Reddy Chief Complaint: SOB, dysphagia Pt is a 80 yo [place] male with PMH HFrEF 20-25% - moderate MVR, severe pulmonary HTN and no pericaridal effusion last echo 04/03/25, HTN, AFIB on coumadin, NSVT, Prolonged Qtc, CKD 3am GERD, Anemia, PNA, Prostate Cancer with radiation, CVA presents to ED vis ambulance with complaints of worsening SOB with dry heaving for a few days. Pt was instructed by his provider outpatient to start taking 80 mgs of lasix in the AM and 40 in the PM but it did not help with pt's symptoms. Pt was hospitalized here recently with new onset AFIB and was discharged 04/10 on amiodorone. Pt states since starting amiodorone, he has been having more problems with dry mouth, swallowing, loss of appetite and persistent nausea. LFTs are normal. Pt has no hx of having and EGD. Pt denies any falls or injury prior to coming in today. Pt currently not having any chest pain, reports GERD and is requesting omeprazole and pepcid and reports chronic back pain since last discharge as he has not been moving as much. Pt does use oxygen at home via compressor and feels he may now need portable oxygen. Pt states he is willing to have an AICD but could not pursue this due to recent hospitalizations. Work up in the ED included a CT soft tissue of the neck with no finding of mass or obstruction. CXR notes Left retrocardiac patchy opacities with effusion, small. CT chest is pending but reviewed by Attending Dr. Eric and moderate sized pleural effusion is noted. . Pt currently on 2L NC, comfortable with no tachypnea or hypoxia. Pt appears pale but no cyanosis. Pt has no leukocytosis and LA is 1.5. INR 2.8 on coumadin. ECG NSR first degree block MD 254 and pt is on amiodorone for AFIB. MG 1.9. Troponin 58-57. BNP 2145. 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 Pt is affiliated with the [facility] as well. Review of Systems Review of Systems: Pt denies chest pain, abd pain, vomiting but is having persistent nausea since starting amiodorone. Pt deneis VILLEDA, visual changes. Pt is not having any bleeding issues as well being on coumadin. [facility] Medical History (Updated 04/14/25 @ 06:20 by JULIO Sehldon) Prostate cancer Atrial flutter Congestive heart failure CKD (chronic kidney disease) stage 3, GFR 30-59 ml/min Acute on chronic combined systolic and diastolic CHF (congestive heart failure) Orthopnea Anxiety Myocardial infarct, old CHF (congestive heart failure) CVA (cerebral vascular accident) A-fib Cognitive capacity: A/O X3 NAD Functional capacity: uses cane/walker Surgical History History of appendectomy Social History Household Members: None Housing: House Do you presently have visiting nurse or other home services: Yes (dressing, laundry, cleaning, cooking, etc) Alcohol intake: former Patient Tobacco Use Status: Former Tobacco user Smoked in Last 30 Days: No Use of substances other than those prescribed or required for medical reasons: No Advance Directives: No Advance Directives Information Provided: No Do you have a plan to hurt others: No Plan Nutrition Risks: Difficulty swallowing service: Yes Current occupational status: disabled Ebola Risk: Travel/Contact With Anyone From Affected Area/s: No Has Patient Experienced Ebola Symptoms: No Meds Allergies Allergy/AdvReac Type Severity Reaction Status Date / Time adenosine Allergy Severe cardiac, Verified 04/13/25 22:59 elevated BP, Stroke Gadolinium-Containing Allergy Severe red eyes Verified 04/13/25 22:59 Contrast Medi Iodinated Contrast Media Allergy Severe Seizure Verified 04/13/25 22:59 (CONTRAST, IV) carvedilol Allergy Intermediate disorientat Verified 04/13/25 22:59 ion erythromycin base AdvReac Unknown Gut Verified 04/13/25 22:59 pain , Abdominal Pain, GI upset Home Medications ?Medication ?Instructions ?Recorded ?Confirmed ?Last Taken ?Type omeprazole 20 mg capsule,delayed 20 mg PO DAILY@0630 11/14/20 04/11/25 04/02/25 History release coenzyme Q10 100 mg capsule 100 mg PO DAILY 04/14/21 04/11/25 04/02/25 History (CoQ-10) carboxymethylcellulose sodium 0.5 1 drp ophthalmic (eye) BID 11/30/22 04/11/25 04/02/25 History % eye drops (Refresh Tears) simvastatin 20 mg tablet 10 mg PO DAILY 11/19/24 04/11/25 04/02/25 History furosemide 20 mg tablet 40 mg PO BID@0700,1400 12/17/24 04/11/25 04/02/25 History spironolactone 25 mg tablet 25 mg PO DAILY@1200 01/17/25 04/11/25 04/02/25 History aluminum-mag hydroxide-simethicone 5 ml PO 5XD PRN Indigestion 04/03/25 04/11/25 Unknown History 200 mg-200 mg-20 mg/5 mL oral susp warfarin 2.5 mg tablet 5 mg PO SUWE@1800 04/03/25 04/11/25 03/31/25 History warfarin 2.5 mg tablet 7.5 mg PO MOTUTHFRSA@1800 04/03/25 04/11/25 04/02/25 History Physical Exam Vital Signs and Narrative: Vital Signs: Last Vital Signs Temp 98 F 04/14/25 05:14 Pulse 102 H 04/14/25 05:14 Resp 14 04/14/25 05:14 BP 103/68 04/14/25 05:27 Pulse Ox 95 04/14/25 05:14 O2 Del Method Nasal Cannula 04/14/25 05:14 O2 Flow Rate 2 04/14/25 05:14 BMI result Body Mass Index 28.0 Pt is A/O X3, NAD on O2 NC Head normocephalic atraumatic PERRLA, sclera nonicteric, conjuntiva pink Oral mucosa dry, no epistaxis Lungs dimished B no adventitious sounds S1S2 RRR, systolic holistic murmur, edema BLE moderate Abdomen soft, nontender, active bowel sounds Strength upper and lower ext 4/5 Psych: mood stable, insight and judgement good Skin: minor excoriations BLE's Results Labs 04/13/25 23:36 04/13/25 23:36 Labs: Laboratory Results - last 24 hr 04/13/25 04/13/25 23:36 23:39 MCV 88.1 MCH 30.8 MCHC 35.0 RDW 14.1 Plt Count 169 MPV 10.5 Immature Gran % (Auto) 0.4 Neut % (Auto) 63.2 Lymph % (Auto) 27.2 [place] % (Auto) 8.0 Eos % (Auto) 0.8 Baso % (Auto) 0.4 Lymph # (Auto) 2.2 [place] # (Auto) 0.6 Eos # (Auto) 0.1 Baso # (Auto) 0.0 Abs Immat Gran (auto) 0.03 Absolute Neuts (auto) 5.1 Absolute Nucleated RBC 0.000 Nucleated RBC % (auto) 0.0 PT 32.7 H D INR 2.8 H Anion Gap 17 Estim Creat Clear Calc 49.3 Estimated GFR 47 Fasting Glucose 134 H Lactic Acid 1.5 Calcium 10.3 H D Magnesium 1.9 Total Bilirubin 1.1 H AST 28 ALT 19 Alkaline Phosphatase 75 B-Natriuretic Peptide 2145 H Total Protein 6.6 Albumin 4.2 COVID-19 (SNOW) Negative COVID-19 Clin Com See Note ECG Attestation: I personally reviewed and interpreted this ECG as follows: (first degree prolonged MD and QTC 488 ) Prior ECG tracings: available for review Assessment and Plan (1) CHF exacerbation: Qualifiers: Heart failure type: combined systolic and diastolic Qualified Code(s): I50.43 - Acute on chronic combined systolic (congestive) and diastolic (congestive) heart failure Status: Acute (2) Acute kidney injury superimposed on stage 3a chronic kidney disease: Status: Acute (3) Dysphagia: Qualifiers: Dysphagia type: oropharyngeal phase Qualified Code(s): R13.12 - Dysphagia, oropharyngeal phase Status: Acute Plan Pt is a 80 yo [place] male with PMH HFrEF 20-25% - moderate MVR, severe pulmonary HTN and no pericaridal effusion last echo 04/03/25, HTN, AFIB on coumadin, NSVT, Prolonged Qtc, CKD 3am GERD, Anemia, PNA, Prostate Cancer with radiation, CVA presents to ED vis ambulance with complaints of worsening SOB with dry heaving for a few days. Pt was instructed by his provider outpatient to start taking 80 mgs of lasix in the AM and 40 in the PM but it did not help with pt's symptoms. Pt being admitted for CHF exacerbation and additional medical problems. Pt believes his dry mouth and swallowing issues with persistent nausea are related to amiodorone that he started 2 weeks ago. Acute CHF Exacerbatio with Moderate MVR and EF 20-25% Cardiology consulted Pt now wants to have the AICD placed CT chest notes fluid overload, no PNA BNP 2145 Daily weights Low Na diet Lasix 40 IV BID, KCL supplementation ordered Entresto, spironolactone once med rec completed Fluid allowance 1500 mls Measure I/O Qs, bladder scan Q shift until pt voids regularly Telemetry Oxygen continues, wean as tolerated - pt believes he will need portable oxygen for home moving forward (only has compressor currently for night time use) PNA ruled out with CT chest/ Atelectasis and edema noted Pt stated on ceftriaxone and doxycyline in the ED empirically - will discontinue Incentive spirometer ordered VBG pending PLeural effusion Small to moderate R, small L effusion via CT chest Consider evaluation for thoracentesis if pt does not improve Pt is on coumadin, may need to be held if procedure indicated BERNA on CKD 3a Pt is borderline hypotensive with MAPs in the 70's Avoid hypotension, systolic 95-110, MAPs 70 BMP daily Avoid nephrotoxic medications Consult nephrology if function worsens UA is pending Dysphagia Soft tissue CT neck negative for obvious mass or obstruction ST eval ordered Pt failed bedside swallow, will be NPO until seen by ST Pt attributes issues to amiodorone AFIB on coumadin, currently First Degree AV BLock on amiodorone with MD 254/ Prolonged Qtc 488 Telemetry INR daily, currently 2.8 with no bleeding issues or severe anemia - dose coumadin according once med rec completed MG 1.9, will give 1GM to maintain MG >2.0 Pt reports persistent nausea, dry mouth and problems swallowing due to amiodorone - work up continues for dysphagia and zofran was helpful LFTs and Thyroid Fx are WNL since starting amiodorone HLD Continue Statin Cardiac diet GERD protonix and pepcid ordered IV as pt failed swallow - pt requesting both meds as his GERD has progressed ? esophageal stricture, hiatal hernia DVT Prophylaxis: Coumadin MED REC PENDING DNR DNI Quality Stroke Does the patient have a stroke diagnosis?: No Reason for No Anti-thrombotic by Day Two: N/A - Med Ordered VTE Prior VTE?: No VTE Risk Level:: Medical - moderate - high VTE Device Contraindication: N/A - Device Ordered VTE Drug Contraindication: N/A - Med Ordered
[2025-04-14 06:25] LABS: Free T4 (Free Thyroxine) 1.34 ng/dL (0.71-1.85); Thyroid Stimulating Hormone 1.49 uIU/mL (0.32-4.0)
--- NOTE | 2025-04-14 06:48 | PC.NURSE ---
bedside swallow performed pt failed due to multiple swallowing and delayed swallow effort garry lelia made aware. order for speech eval placed with allowance for ice chips
[2025-04-14] MEDS: Furosemide 40 MG/4 ML VIAL IVPUSH ×2 (08:36→16:27)
[2025-04-14] MEDS: Potassium Chloride Packet 20 MEQ PACKET PO (08:36)
[2025-04-14] MEDS: 0.9 % Sodium Chloride Flush 3 ML SYRINGE IVFLUSH ×3 (08:38→20:58)
--- NOTE | 2025-04-14 08:39 | PHA.MEDREC ---
Pharmacy Consult ? Medication Reconciliation Pharmacy has completed the medication reconciliation. Spoke to patient at bedside, he had his recent discharge packet with him as his medication list. He noted he thinks the Amiodarone is giving him chest tightness, he is supposed to be on BID until 04/21. He is no longer taking metoprolol. He noted his warfarin should be 5mg on three days of the week, but could not specify the days. Takes 7.5mg all other days
[2025-04-14 10:35] LABS: Venous Blood Gas Refer to POC result
[2025-04-14 10:36] LABS: VBG HCO3 25 mmol/L (22-26); VBG O2 % Saturation 82.0 %
--- NOTE | 2025-04-14 10:53 | PM.CNCAR ---
History of Present Illness History of Present Illness Date of Service: 04/14/25 Chief complaint: Shortness of Breath, Right Pleural Effusion Narrative: This is a cardiology consultation regarding congestive heart failure. Patient has had numerous hospitalizations for the same in the last several months. Most recently, discharged within the last week. Per last note by , LVEF 20 25%, decompensated heart failure, significant PVC burden, NSVT, atrial fibrillation with aberrancy, atrial flutter, amiodarone drip and converted to sinus rhythm. It seems Toprol-XL was held. He was recommended to follow up with [facility]. However, patient states his shortness of breath again got worse and hence he got readmitted. He was asked to increase the diuretic dosing and he apparently went up to Lasix 80 mg in the morning and 40 mg in the p.m.. That did not help with this shortness of breath. Additionally, he has had other complaints like dry mouth, issues with swallowing, nausea extra and he believes it is a side effect of amiodarone. Currently, he has been diuresed with IV Lasix and he states that he is actually feeling much better. Review of Systems Review of Systems: Yes all other systems are reviewed and are negative Constitutional: Constitutional: Reports as per HPI and Reports no additional constitutional complaints Eyes: Eyes: Reports as per HPI and Denies no additional eye complaints ENT: Denies system reviewed and no additional complaints, except as documented and Reports as per HPI Cardiovascular: Cardiovascular: Reports as per HPI, Reports no additional cardiovascular complaints, Denies acrocyanosis, Denies cool extremities, Denies chest pain, Denies leg edema, Denies lightheadedness, Denies palpitations and Reports dyspnea Respiratory: Respiratory: Reports as per HPI, Denies no additional respiratory complaints and Reports dyspnea Gastrointestinal: Gastrointestinal: Reports as per HPI and Denies no additional gastrointestinal complaints Genitourinary: Genitourinary: Reports no additional male genitourinary complaints and Reports as per HPI Musculoskeletal: Musculoskeletal: Reports no additional musculoskeletal complaints and Reports as per HPI Integumentary/Breasts: Skin/Breast: Reports system reviewed and no additional complaints, except as docu Neurologic: Reports system reviewed and no additional complaints, except as documented and Reports as per HPI Psychiatric: Psychiatric: Reports no additional psychiatric complaints and Reports as per HPI Endocrine: Endocrine: Reports no additional endocrine complaints, Reports as per HPI and Denies palpitations Hematologic/Lymphatic: Hematologic/Lymphatic: Reports no additional hematologic/lymphatic complaints and Reports as per HPI Allergic/Immunologic: Allergic/Immunologic: Reports no additional allergic/immunologic complaints and Reports as per HPI [facility] Past Medical History Medical History (Updated 04/14/25 @ 10:57 by Orlando Ramos MD) Prostate cancer Atrial flutter Congestive heart failure CKD (chronic kidney disease) stage 3, GFR 30-59 ml/min Acute on chronic combined systolic and diastolic CHF (congestive heart failure) Orthopnea Anxiety Myocardial infarct, old CHF (congestive heart failure) CVA (cerebral vascular accident) A-fib Family History Pertinent family history: No pertinent family history Surgical History Surgical History History of appendectomy Social History Social History Household Members: None Housing: House Do you presently have visiting nurse or other home services: Yes Alcohol intake: former Patient Tobacco Use Status: Former Tobacco user Smoked in Last 30 Days: No Patient Interested in Nicotine Replacement: No Use of substances other than those prescribed or required for medical reasons: No Have you been hit, kicked, punched, or otherwise hurt by someone within the past year? If so, by whom?: No Do you feel safe in your current relationship?: No Current Relationship Is there a partner from a previous relationship who is making you feel unsafe now?: No Are you made to feel afraid or neglected: No Advance Directives: No Advance Directives Information Provided: No Do you have a plan to hurt others: No Plan Recently lost weight without trying: Yes How much weight loss: Unsure Nutrition Risks: Poor intake 0-25% >4 days Poor oral hygiene: No service: Yes Current occupational status: disabled Travel History Ebola Risk: Travel/Contact With Anyone From Affected Area/s: No Has Patient Experienced Ebola Symptoms: No Meds Allergies Allergy/AdvReac Type Severity Reaction Status Date / Time adenosine Allergy Severe cardiac, Verified 04/13/25 22:59 elevated BP, Stroke Gadolinium-Containing Allergy Severe red eyes Verified 04/13/25 22:59 Contrast Medi Iodinated Contrast Media Allergy Severe Seizure Verified 04/13/25 22:59 (CONTRAST, IV) carvedilol Allergy Intermediate disorientat Verified 04/13/25 22:59 ion erythromycin base AdvReac Unknown Gut Verified 04/13/25 22:59 pain , Abdominal Pain, GI upset Active Medications: Current Medications Acetaminophen (Acetaminophen 325 Mg Tablet) 650 mg PO Q6H PRN PRN Reason: Pain, Mild 1-3,fever,headache Albuterol/Ipratropium (Albuterol/Iprat 2.5/0.5mg 3 Ml Ampul.Neb) 3 ml INHALE Q4H PRN PRN Reason: Shortness of Breath/Wheezing Calcium Carbonate (Calcium Carbonate 750 Mg Tab.Chew) 750 mg PO Q4H PRN PRN Reason: Heartburn Famotidine (Famotidine/Pf 20 Mg/2 Ml Vial) 20 mg IVPUSH DAILY [facility] Last Admin: 04/14/25 08:37 Dose: 20 mg Furosemide (Furosemide 40 Mg/4 Ml Vial) 40 mg IVPUSH BID@0900,1800 [facility]; Protocol Last Admin: 04/14/25 08:36 Dose: 40 mg Magnesium Hydroxide (Milk Of Magnesia 30 Ml Oral.Susp) 30 ml PO DAILY PRN PRN Reason: Constipation Melatonin (Melatonin 3 Mg Tablet) 6 mg PO BEDTIME PRN PRN Reason: Insomnia Ondansetron HCl (Ondansetron Hcl 4 Mg/2 Ml Vial) 4 mg IVPUSH Q8H PRN PRN Reason: Nausea and Vomiting Pantoprazole Sodium (Pantoprazole Sodium 40 Mg/10 Ml Vial) 40 mg IVPUSH DAILY@0630 [facility] Last Admin: 04/14/25 08:36 Dose: 40 mg Polyethylene Glycol (Polyethylene Glycol 3350 17 Gm Powd.Pack) 17 gm PO DAILY PRN PRN Reason: Constipation Potassium Chloride (Potassium Chloride Packet 20 Meq Packet) 20 meq PO DAILY [facility] Last Admin: 04/14/25 08:36 Dose: 20 meq Senna (Sennosides 8.6 Mg Tablet) 17.2 mg PO BEDTIME [facility] Sodium Chloride (0.9 % Sodium Chloride Flush 3 Ml Syringe) 3 ml IVFLUSH QSHIFT [facility] Last Admin: 04/14/25 08:38 Dose: 3 ml Home Medications ?Medication ?Instructions ?Recorded ?Confirmed ?Last Taken ?Type omeprazole 20 mg capsule,delayed 20 mg PO DAILY@0630 11/14/20 04/14/25 04/13/25 History release coenzyme Q10 100 mg capsule 100 mg PO DAILY 04/14/21 04/14/25 04/13/25 History (CoQ-10) simvastatin 20 mg tablet 10 mg PO DAILY 11/19/24 04/14/25 04/13/25 History furosemide 20 mg tablet 40 mg PO BID@0700,1400 12/17/24 04/14/25 04/13/25 History spironolactone 25 mg tablet 25 mg PO DAILY@1200 01/17/25 04/14/25 04/13/25 History warfarin 2.5 mg tablet 5 mg PO SUWEFR@1800 04/03/25 04/14/25 03/31/25 History warfarin 2.5 mg tablet 7.5 mg PO MOTUTHSA@1800 04/03/25 04/14/25 04/13/25 History amiodarone 200 mg tablet 200 mg PO BID 04/14/25 04/14/25 04/13/25 History Physical Exam Vital Signs: Vital Signs: Last Vital Signs Temp 97.0 F 04/14/25 09:20 Pulse 97 04/14/25 09:20 Resp 20 04/14/25 09:20 BP 102/64 04/14/25 09:20 Pulse Ox 98 04/14/25 09:20 O2 Del Method Nasal Cannula 04/14/25 09:20 O2 Flow Rate 2 04/14/25 09:20 BMI result Body Mass Index 26.2 Const: General: comfortable and no acute distress Orientation/consciousness: patient oriented x3 HEENT: Other: Unremarkable Head: Yes normal to inspection Neck: Neck: Yes normal visual inspection Chest: Chest palpation & inspection: normal inspection of the chest Resp: Auscultation: crackles Cardio: Palpation: normal PMI Heart sounds: S1 normal heart sound present, S2 normal heart sound present, no gallops, no murmurs and no rubs GI: Palpation (GI): Soft to palpation Back/Spine/Pelvis: Other: unremarkable Skin: General skin exam: no rashes or lesions noted Neuro: General: patient oriented x3 Extrem: Other: Trace to 1+ edema General: Yes normal to inspection Psych: Mental Status: mental status grossly normal Objective Labs and Meds 04/13/25 23:36 04/13/25 23:36 Lab results: Laboratory Results - last 24 hr 08/04/13/25 04/14/25 23:36 23:39 01:51 WBC 8.0 RBC 4.19 L Hgb 12.9 L Hct 36.9 L MCV 88.1 MCH 30.8 MCHC 35.0 RDW 14.1 Plt Count 169 MPV 10.5 Immature Gran % (Auto) 0.4 Neut % (Auto) 63.2 Lymph % (Auto) 27.2 [place] % (Auto) 8.0 Eos % (Auto) 0.8 Baso % (Auto) 0.4 Lymph # (Auto) 2.2 [place] # (Auto) 0.6 Eos # (Auto) 0.1 Baso # (Auto) 0.0 Abs Immat Gran (auto) 0.03 Absolute Neuts (auto) 5.1 Absolute Nucleated RBC 0.000 Nucleated RBC % (auto) 0.0 PT 32.7 H D INR 2.8 H VBG pH VBG pCO2 VBG pO2 VBG HCO3 VBG O2 Saturation VBG Base Excess Sodium 136 Potassium 3.9 Chloride 97 Carbon Dioxide 26 Anion Gap 17 BUN 22 H Creatinine 1.44 H Estim Creat Clear Calc 49.3 Estimated GFR 47 Fasting Glucose 134 H Lactic Acid 1.5 Calcium 10.3 H D Magnesium 1.9 Total Bilirubin 1.1 H AST 28 ALT 19 Alkaline Phosphatase 75 Troponin I High Sens 58.8 H 57.3 H B-Natriuretic Peptide 2145 H Total Protein 6.6 Albumin 4.2 TSH 1.49 Free T4 1.34 COVID-19 (SNOW) Negative COVID-19 Clin Com See Note 04/14/25 10:32 WBC RBC Hgb Hct MCV MCH MCHC RDW Plt Count MPV Immature Gran % (Auto) Neut % (Auto) Lymph % (Auto) [place] % (Auto) Eos % (Auto) Baso % (Auto) Lymph # (Auto) [place] # (Auto) Eos # (Auto) Baso # (Auto) Abs Immat Gran (auto) Absolute Neuts (auto) Absolute Nucleated RBC Nucleated RBC % (auto) PT INR VBG pH 7.46 H VBG pCO2 35 VBG pO2 54 VBG HCO3 25 VBG O2 Saturation 82.0 VBG Base Excess 2.1 Sodium Potassium Chloride Carbon Dioxide Anion Gap BUN Creatinine Estim Creat Clear Calc Estimated GFR Fasting Glucose Lactic Acid Calcium Magnesium Total Bilirubin AST ALT Alkaline Phosphatase Troponin I High Sens B-Natriuretic Peptide Total Protein Albumin TSH Free T4 COVID-19 (SNOW) COVID-19 Clin Com ECG Interpretation: EKG with underlying sinus rhythm with a prolonged TX at 254 milliseconds; nonspecific interventricular conduction defect; PVC. Corrected QT is 480 milliseconds. Assessment and Plan (1) Acute on chronic combined systolic and diastolic ACC/AHA stage C congestive heart failure: Status: Acute (2) Paroxysmal atrial fibrillation: Status: Acute Plan Per the last echocardiogram from few days ago, LVEF is 20 25%. Moderate mitral regurgitation. Pulmonary hypertension with elevated right atrial pressure. Moderate loculated pericardial effusion. Creatinine is 1.4. Prior to that, 1.19. BUN is 22, baseline. Cardiac BNP is 2145. On 04/04, it does 1651. Prior to that, it has been up and down. High sensitivity troponin [address] scan reported to have [id number] right and small left pleural effusions with compressive atelectasis. Findings consistent with fluid overload/edema. Reported trace pericardial effusion. Overall, severe cardiomyopathy with recurring hospitalizations. It seems that his most recent dose of Lasix was 80 mg/40 mg prior to that, 40 mg/40 mg. Otherwise, he is on Entresto, spironolactone. In a prior note from myself, that is mention of him not wanting to take Jardiance. Continue IV diuretics for the time being. Continue Entresto/spironolactone. Monitor kidney function. Upon discharge, possibly with a higher dose of Lasix at 80 mg/80 mg. Continue amiodarone/warfarin. Procedures Date of Service Date of Service: 04/14/25
--- NOTE | 2025-04-14 12:24 | MHC.SL.SWA ---
Speech Pathologist Impression: Risk of Aspiration Due to: Mild-moderate pharyngeal esophageal dysphagia Dysphasia Diet Status: Liquid Consistency and Strategies for Safe Swallow: Liquid Intake Recommendation: Thin Liquid Intake Strategies: Solid Food Consistency: Dietary Recommendations: Chopped/Advanced (NDD3) Additional Modifications to Solid Foods: Oral Medication Intake: Whole with Puree Please contact the pharmacy regarding appropriate crushable or liquid drug formulations that are available whenever modified delivery is recommended. Compensatory Strategies and Precautions to be Taken for Safe Swallow: Supervision While Eating and Drinking for Safe Swallow: Foods to Avoid: Tough, difficult to chew solids, dry crunchy textures, too large pieces of food. Swallowing Recommended Treatments: Recommendation for Speech: Inpatient Speech Therapy Comment: Patient presents with most aspects of oral motor function and swallow WFL, however he presents with some oral and possibly pharyngeal residual after swallow (managed by sips of liquid), and complaint of discomfort/globus sensation (pointing clavicular notch) in area of sternum, belching and heaving to relieve this sensation, and that liquids sometimes come back up. Symptoms reported consistent with pharyngeal esophageal dysphagia, with further GI testing required to confirm. Patient advised to elect softer, premoistened foods, eat small bites and chew thoroughly, follow bites of food with small sips of liquid (v. gulps). Patient advised to remain upright 30 minutes after each meal. Recommend START diet of Chopped/Advanced (NDD3), Thin liquids, pills whole with puree. Recommend GI consult either as a part of this inpatient stay or outpatient. POLE LIFT OPERATOR will follow for toleration of recommended diet. RNMD notified of recommendation in person. Frequency/Duration: Date Range for Service Req: Timeline to reassess: Human Factors Specialist Clinican/Clinical Fellow: No Supervisory Statement: I have reviewed and agree with the student/clinical fellow's documentation: N/A Speech Language Pathologist: Kim Suero M.A., CCC-POLE LIFT OPERATOR
--- NOTE | 2025-04-14 13:37 | HO.PM.IMPN ---
Subjective Subjective Date of Service: 04/14/25 Interval History: No acute issues overnight. Breathing somewhat improved Review of Systems Denies chest pain Admits shortness of breath that has improved Denies nausea vomiting diarrhea Denies fever chills Physical Exam Vital Signs: Vital Signs: Last Vital Signs Temp 97.6 F 04/14/25 11:12 Pulse 98 04/14/25 11:12 Resp 20 04/14/25 11:12 BP 106/73 04/14/25 11:12 Pulse Ox 98 04/14/25 11:12 O2 Del Method Nasal Cannula 04/14/25 11:12 O2 Flow Rate 2 04/14/25 11:12 BMI result Body Mass Index 26.2 Const: Other: Awake alert no acute distress breathing comfortable on 2 L Resp: Other: Diminished at bases with fine crackles Cardio: Other: No S4; positive S1-S2; no S3 murmurs rubs or gallops GI: Other: Soft nontender nondistended normoactive bowel sounds Extrem: Other: No edema bilaterally Objective Data Active Medications Acetaminophen (Acetaminophen 325 Mg Tablet) 650 mg PO Q6H PRN PRN Reason: Pain, Mild 1-3,fever,headache Albuterol/Ipratropium (Albuterol/Iprat 2.5/0.5mg 3 Ml Ampul.Neb) 3 ml INHALE Q4H PRN PRN Reason: Shortness of Breath/Wheezing Calcium Carbonate (Calcium Carbonate 750 Mg Tab.Chew) 750 mg PO Q4H PRN PRN Reason: Heartburn Famotidine (Famotidine/Pf 20 Mg/2 Ml Vial) 20 mg IVPUSH DAILY [facility] Last Admin: 04/14/25 08:37 Dose: 20 mg Documented By: LEENA Furosemide (Furosemide 40 Mg/4 Ml Vial) 40 mg IVPUSH BID@0900,1800 [facility]; Protocol Last Admin: 04/14/25 08:36 Dose: 40 mg Documented By: LEENA Magnesium Hydroxide (Milk Of Magnesia 30 Ml Oral.Susp) 30 ml PO DAILY PRN PRN Reason: Constipation Melatonin (Melatonin 3 Mg Tablet) 6 mg PO BEDTIME PRN PRN Reason: Insomnia Ondansetron HCl (Ondansetron Hcl 4 Mg/2 Ml Vial) 4 mg IVPUSH Q8H PRN PRN Reason: Nausea and Vomiting Pantoprazole Sodium (Pantoprazole Sodium 40 Mg/10 Ml Vial) 40 mg IVPUSH DAILY@0630 [facility] Last Admin: 04/14/25 08:36 Dose: 40 mg Documented By: LEENA Polyethylene Glycol (Polyethylene Glycol 3350 17 Gm Powd.Pack) 17 gm PO DAILY PRN PRN Reason: Constipation Potassium Chloride (Potassium Chloride Packet 20 Meq Packet) 20 meq PO DAILY [facility] Last Admin: 04/14/25 08:36 Dose: 20 meq Documented By: LEENA Senna (Sennosides 8.6 Mg Tablet) 17.2 mg PO BEDTIME [facility] Sodium Chloride (0.9 % Sodium Chloride Flush 3 Ml Syringe) 3 ml IVFLUSH QSHIFT [facility] Last Admin: 04/14/25 08:38 Dose: 3 ml Documented By: LEENA Labs 04/13/25 23:36 04/13/25 23:36 Labs: Laboratory Results - last 24 hr 04/13/25 04/13/25 04/14/25 23:36 23:39 10:32 MCV 88.1 MCH 30.8 MCHC 35.0 RDW 14.1 Plt Count 169 MPV 10.5 Immature Gran % (Auto) 0.4 Neut % (Auto) 63.2 Lymph % (Auto) 27.2 [place] % (Auto) 8.0 Eos % (Auto) 0.8 Baso % (Auto) 0.4 Lymph # (Auto) 2.2 [place] # (Auto) 0.6 Eos # (Auto) 0.1 Baso # (Auto) 0.0 Abs Immat Gran (auto) 0.03 Absolute Neuts (auto) 5.1 Absolute Nucleated RBC 0.000 Nucleated RBC % (auto) 0.0 PT 32.7 H D INR 2.8 H VBG pH 7.46 H VBG pCO2 35 VBG pO2 54 VBG HCO3 25 VBG O2 Saturation 82.0 VBG Base Excess 2.1 Anion Gap 17 Estim Creat Clear Calc 49.3 Estimated GFR 47 Fasting Glucose 134 H Lactic Acid 1.5 Calcium 10.3 H D Magnesium 1.9 Total Bilirubin 1.1 H AST 28 ALT 19 Alkaline Phosphatase 75 B-Natriuretic Peptide 2145 H Total Protein 6.6 Albumin 4.2 TSH 1.49 Free T4 1.34 COVID-19 (SNOW) Negative COVID-19 Clin Com See Note Assessment and Plan (1) Acute on chronic diastolic CHF (congestive heart failure): Status: Acute Plan Pt is a 80 yo [place] male with PMH HFrEF 20-25% - moderate MVR, severe pulmonary HTN and no pericaridal effusion last echo 04/03/25, HTN, AFIB on coumadin, NSVT, Prolonged Qtc, CKD 3am GERD, Anemia, PNA, Prostate Cancer with radiation, CVA presents to ED vis ambulance with complaints of worsening SOB with dry heaving for a few days. Pt was instructed by his provider outpatient to start taking 80 mgs of lasix in the AM and 40 in the PM but it did not help with pt's symptoms. Pt being admitted for CHF exacerbation and additional medical problems. Pt believes his dry mouth and swallowing issues with persistent nausea are related to amiodorone that he started 2 weeks ago. 1. Acute exacerbation of systolic congestive heart failure -Lasix 40 mg IV b.i.d. -follow I&O -continue outpatient therapies including Entresto/Aldactone -follow renals/divalents 2. BERNA in backdrop of CKD 3 -mild elevation -continue IV diuresis -follow renal/divalent 3. Dysphagia (describes esophageal stricture) -Pepcid IV as ordered -seen by speech therapy; diet modified -recommend GI consult in a.m. 4. Paroxysmal atrial fibrillation -stable and well compensated -continue warfarin with daily INR DVT Prophylaxis: Coumadin MED REC PENDING DNR DNI Quality Stroke Does the patient have a stroke diagnosis?: No Reason for No Anti-thrombotic by Day Two: N/A - Med Ordered VTE Prior VTE?: No VTE Risk Level:: Medical - moderate - high VTE Device Contraindication: N/A - Device Ordered VTE Drug Contraindication: N/A - Med Ordered
[2025-04-14 19:10] LABS: INTERNATIONAL NORM RATIO 3.7 (0.9-1.1); Prothrombin Time 42.2 SEC (10.9-12.4)
[2025-04-14] MEDS: Sacubitril/Valsartan 24/26 1 TAB TABLET PO (20:58)
[2025-04-15] VITALS (7 sets, daily range): BP systolic 101–111; BP diastolic 56–68; PULSE 74–86; RESP 16–20; TEMP 36.2–36.6; O2SAT 95–98
[2025-04-15 07:22] LABS: MANUAL DIFF FLAG NO
[2025-04-15 07:34] LABS: Hematocrit 35.8 % (42.0-52.0); Hemoglobin 12.5 g/dl (14.0-18.0); Imm Gran Abs Auto 0.04 X10*3/uL (0.00-0.03); Imm Gran Pct Auto 0.6 % (0.0-0.4); Lymphocytes Absolute Auto 1.8 X10*3/uL (1.2-4.9); Mean Corpuscular HGB Conc 34.9 g/dl (31.0-36.0); Mean Corpuscular Hemoglobin 30.8 pg (27.0-33.0); Mean Corpuscular Volume 88.2 fL (80.0-98.0); NRBC Abs Auto 0.000 X10*3/uL (0.0-0.012); NRBC Pct Auto 0.0 /100WBC (0.0-0.2); Platelet Count 144 X10*3/uL (160-400); Red Blood Count 4.06 X10*6/uL (4.60-5.80); White Blood Count 6.8 X10*3/uL (4.8-10.8)
[2025-04-15 07:35] LABS: INTERNATIONAL NORM RATIO 4.4 (0.9-1.1); Prothrombin Time 50.6 SEC (10.9-12.4)
[2025-04-15 07:58] LABS: Anion Gap 15 (12-20); Blood Urea Nitrogen 17 mg/dL (9-16); Calcium 9.0 mg/dL (8.4-10.2); Carbon Dioxide 23 mmol/L (22-29); Chloride 98 mmol/L (96-108); Creatinine Clr Calc Pharmacy 56.6; Estimated Glomerular Filt Rate > 60; Potassium 3.5 mmol/L (3.3-5.1); Sodium 132 mmol/L (135-145)
[2025-04-15] MEDS: Furosemide 40 MG/4 ML VIAL IVPUSH (08:47)
[2025-04-15] MEDS: Sacubitril/Valsartan 24/26 1 TAB TABLET PO ×2 (08:47→22:26)
[2025-04-15] MEDS: 0.9 % Sodium Chloride Flush 3 ML SYRINGE IVFLUSH ×3 (08:49→22:05)
--- NOTE | 2025-04-15 09:21 | HO.PM.IMPN ---
Subjective Subjective Date of Service: 04/15/25 Interval History: No acute issues overnight. Breathing somewhat improved Review of Systems Denies chest pain Admits shortness of breath that has improved Denies nausea vomiting diarrhea Denies fever chills Physical Exam Exam: Exam: Appearing in no acute distress LSCTA heart regular rate rhythm, clear S1, S2 positive bowel sounds, abdomen is soft, nontender neuro patient is alert x3, no focal deficits Vital Signs: Vital Signs: Last Vital Signs Temp 97.1 F 04/15/25 07:57 Pulse 81 04/15/25 07:57 Resp 20 04/15/25 07:57 BP 108/66 04/15/25 07:57 Pulse Ox 97 04/15/25 07:57 O2 Del Method Nasal Cannula 04/15/25 07:57 O2 Flow Rate 2 04/15/25 07:57 BMI result Body Mass Index 26.2 Objective Data Active Medications Acetaminophen (Acetaminophen 325 Mg Tablet) 650 mg PO Q6H PRN PRN Reason: Pain, Mild 1-3,fever,headache Albuterol/Ipratropium (Albuterol/Iprat 2.5/0.5mg 3 Ml Ampul.Neb) 3 ml INHALE Q4H PRN PRN Reason: Shortness of Breath/Wheezing Amiodarone HCl (Amiodarone Hcl 200 Mg Tablet) 200 mg PO BID [facility] Last Admin: 04/15/25 08:49 Dose: 200 mg Documented By: KIRBY Atorvastatin Calcium (Atorvastatin Calcium 10 Mg Tablet) 10 mg PO DAILY [facility] Last Admin: 04/15/25 08:48 Dose: 10 mg Documented By: KIRBY Calcium Carbonate (Calcium Carbonate 750 Mg Tab.Chew) 750 mg PO Q4H PRN PRN Reason: Heartburn Famotidine (Famotidine/Pf 20 Mg/2 Ml Vial) 20 mg IVPUSH DAILY [facility] Last Admin: 04/15/25 08:47 Dose: 20 mg Documented By: KIRBY Furosemide (Furosemide 40 Mg/4 Ml Vial) 40 mg IVPUSH BID@0900,1800 [facility]; Protocol Last Admin: 04/15/25 08:47 Dose: 40 mg Documented By: KIRBY Lorazepam (Lorazepam 0.5 Mg Tablet) 0.25 mg PO BID PRN PRN Reason: Anxiety Last Admin: 04/15/25 08:48 Dose: 0.25 mg Documented By: KIRBY Magnesium Hydroxide (Milk Of Magnesia 30 Ml Oral.Susp) 30 ml PO DAILY PRN PRN Reason: Constipation Melatonin (Melatonin 3 Mg Tablet) 6 mg PO BEDTIME PRN PRN Reason: Insomnia Last Admin: 04/14/25 21:11 Dose: 6 mg Documented By: FLORY Omeprazole (Omeprazole 20 Mg Capsule.Dr) 20 mg PO DAILY@0630 [facility] Last Admin: 04/15/25 05:48 Dose: 20 mg Documented By: FLORY Ondansetron HCl (Ondansetron Hcl 4 Mg/2 Ml Vial) 4 mg IVPUSH Q8H PRN PRN Reason: Nausea and Vomiting Last Admin: 04/14/25 16:27 Dose: 4 mg Documented By: KIRBY Pantoprazole Sodium (Pantoprazole Sodium 40 Mg/10 Ml Vial) 40 mg IVPUSH DAILY@0630 [facility] Last Admin: 04/15/25 05:48 Dose: 40 mg Documented By: FLORY Polyethylene Glycol (Polyethylene Glycol 3350 17 Gm Powd.Pack) 17 gm PO DAILY PRN PRN Reason: Constipation Potassium Chloride (Potassium Chloride Packet 20 Meq Packet) 20 meq PO DAILY [facility] Last Admin: 04/15/25 08:52 Dose: Not Given Documented By: KIRBY Non-Admin Reason: rEQUESTING PILL FORM Sacubitril/Valsartan (Sacubitril/Valsartan 1 Tab Tablet) 1 tab PO BID [facility]; Protocol Last Admin: 04/15/25 08:47 Dose: 1 tab Documented By: KIRBY Senna (Sennosides 8.6 Mg Tablet) 17.2 mg PO BEDTIME [facility] Last Admin: 04/14/25 20:57 Dose: 17.2 mg Documented By: FLORY Sodium Chloride (0.9 % Sodium Chloride Flush 3 Ml Syringe) 3 ml IVFLUSH QSHIFT [facility] Last Admin: 04/15/25 08:49 Dose: 3 ml Documented By: KIRBY Sodium Chloride (Sodium Chloride 0.65 % Nasal 44 Ml Sprbtl) 1 spray NOSTRIL-B Q1H PRN PRN Reason: Nasal Congestion Spironolactone (Spironolactone 25 Mg Tablet) 25 mg PO DAILY@1200 [facility]; Protocol Warfarin Sodium (Warfarin Sodium 5 Mg Tablet) 5 mg PO SUWEFR@1800 [facility] On Hold: 04/15/25 08:15 Last Admin: 04/14/25 18:29 Dose: 5 mg Documented By: KIRBY Warfarin Sodium (Warfarin Sodium 7.5 Mg Tablet) 7.5 mg PO MOTUTHSA@1800 [facility] Zolpidem Tartrate (Zolpidem Tartrate 5 Mg Tablet) 5 mg PO BEDTIME PRN PRN Reason: Insomnia Labs 04/15/25 07:06 04/15/25 07:06 Labs: Laboratory Results - last 24 hr 04/14/25 04/14/25 04/15/25 10:32 18:55 07:06 MCV 88.2 MCH 30.8 MCHC 34.9 RDW 14.1 Plt Count 144 L MPV 11.0 Immature Gran % (Auto) 0.6 H Neut % (Auto) 63.0 Lymph % (Auto) 26.2 [place] % (Auto) 8.6 Eos % (Auto) 1.0 Baso % (Auto) 0.6 Lymph # (Auto) 1.8 [place] # (Auto) 0.6 Eos # (Auto) 0.1 Baso # (Auto) 0.0 Abs Immat Gran (auto) 0.04 H Absolute Neuts (auto) 4.3 Absolute Nucleated RBC 0.000 Nucleated RBC % (auto) 0.0 Hold Purple Top SEE NOTE PT 42.2 H D 50.6 H INR 3.7 H 4.4 H VBG pH 7.46 H VBG pCO2 35 VBG pO2 54 VBG HCO3 25 VBG O2 Saturation 82.0 VBG Base Excess 2.1 Anion Gap 15 Estim Creat Clear Calc 56.6 Estimated GFR > 60 Random Glucose 115 Calcium 9.0 D Hold Yellow Top See Note Microbiology Microbiology Results: Microbiology 04/13/25 23:53 Blood Culture - Preliminary Blood - Venous No growth after 24 hours. 04/13/25 23:39 Blood Culture - Preliminary Blood - Venous No growth after 24 hours. Assessment and Plan (1) Acute on chronic diastolic CHF (congestive heart failure): Status: Acute Plan 80 yo [place] male with PMH HFrEF 20-25% - moderate MVR, severe pulmonary HTN and no pericaridal effusion last echo 04/03/25, HTN, AFIB on coumadin, NSVT, Prolonged Qtc, CKD 3am GERD, Anemia, PNA, Prostate Cancer with radiation, CVA presents to ED vis ambulance with complaints of worsening SOB with dry heaving for a few days. Pt was instructed by his provider outpatient to start taking 80 mgs of lasix in the AM and 40 in the PM but it did not help with pt's symptoms. Pt being admitted for CHF exacerbation and additional medical problems. Pt believes his dry mouth and swallowing issues with persistent nausea are related to amiodorone that he started 2 weeks ago. Acute exacerbation of systolic congestive heart failure Lasix 40 mg IV b.i.d. stopped, now on torsemide 40 mg BID follow I&O continue outpatient therapies including Entresto/Aldactone follow renals/divalents BERNA in backdrop of CKD 3 mild elevation continue IV diuresis follow renal/divalent Dysphagia (describes esophageal stricture) Pepcid IV as ordered seen by speech therapy; diet modified recommend GI consult in a.m. Paroxysmal atrial fibrillation stable and well compensated continue warfarin with daily INR amiodarone down to 200 mg daily DVT Prophylaxis: Coumadin DNR DNI Quality Stroke Does the patient have a stroke diagnosis?: No Reason for No Anti-thrombotic by Day Two: N/A - Med Ordered VTE Prior VTE?: No VTE Risk Level:: Medical - moderate - high VTE Device Contraindication: N/A - Device Ordered VTE Drug Contraindication: N/A - Med Ordered
[2025-04-15 09:57] LABS: Iron 50 mcg/dL (45-160); Percent Iron Saturation 22 % (15-50); Total Iron Binding Capacity 228 mcg/dL (228-428); Unsaturated Iron Binding 178 ug/dL
--- NOTE | 2025-04-15 10:14 | PM.PNCARD ---
Subjective Subjective Date of Service: 04/15/25 Interval history: Patient states that he just does not feel too good. This morning, had sensation of dizziness. Shortness of breath is still present but not as bad. Just feels deconditioned. Review of Systems Review of Systems Yes all other systems are reviewed and are negative Constitutional: Reports as per HPI and Reports no additional constitutional complaints Eyes: Reports as per HPI and Denies no additional eye complaints Denies system reviewed and no additional complaints, except as documented and Reports as per HPI Cardiovascular: Reports as per HPI, Reports no additional cardiovascular complaints, Denies acrocyanosis, Denies cool extremities, Denies chest pain, Denies leg edema, Reports lightheadedness, Denies palpitations and Reports dyspnea Respiratory: Reports as per HPI, Denies no additional respiratory complaints and Reports dyspnea Gastrointestinal: Reports as per HPI and Denies no additional gastrointestinal complaints Genitourinary: Reports no additional male genitourinary complaints and Reports as per HPI Musculoskeletal: Reports no additional musculoskeletal complaints and Reports as per HPI Skin/Breast: Reports system reviewed and no additional complaints, except as docu Reports system reviewed and no additional complaints, except as documented and Reports as per HPI Psychiatric: Reports no additional psychiatric complaints and Reports as per HPI Endocrine: Reports no additional endocrine complaints, Reports as per HPI and Denies palpitations Hematologic/Lymphatic: Reports no additional hematologic/lymphatic complaints and Reports as per HPI Allergic/Immunologic: Reports no additional allergic/immunologic complaints and Reports as per HPI Physical Exam Vital Signs: Last Vital Signs Temp 97.1 F 04/15/25 07:57 Pulse 81 04/15/25 07:57 Resp 20 04/15/25 07:57 BP 108/66 04/15/25 07:57 Pulse Ox 97 04/15/25 07:57 O2 Del Method Nasal Cannula 04/15/25 07:57 O2 Flow Rate 2 04/15/25 07:57 BMI result Body Mass Index 26.2 Const General: comfortable and no acute distress Orientation/consciousness: patient oriented x3 HEENT Other: Unremarkable Head: Yes normal to inspection Neck Neck: Yes normal visual inspection Chest Chest palpation & inspection: normal inspection of the chest Resp Auscultation: crackles Cardio Palpation: normal PMI Heart sounds: S1 normal heart sound present, S2 normal heart sound present, no gallops, no murmurs and no rubs GI Palpation (GI): Soft to palpation Back/Spine/Pelvis Other: unremarkable Skin General skin exam: no rashes or lesions noted Neuro General: patient oriented x3 Extrem Other: Trace edema General: Yes normal to inspection Psych Mental Status: mental status grossly normal Objective Labs and Meds 04/15/25 07:06 04/15/25 07:06 Lab results: Laboratory Results - last 24 hr 04/14/25 04/14/25 04/15/25 10:32 18:55 07:06 WBC 6.8 RBC 4.06 L Hgb 12.5 L Hct 35.8 L MCV 88.2 MCH 30.8 MCHC 34.9 RDW 14.1 Plt Count 144 L MPV 11.0 Immature Gran % (Auto) 0.6 H Neut % (Auto) 63.0 Lymph % (Auto) 26.2 [place] % (Auto) 8.6 Eos % (Auto) 1.0 Baso % (Auto) 0.6 Lymph # (Auto) 1.8 [place] # (Auto) 0.6 Eos # (Auto) 0.1 Baso # (Auto) 0.0 Abs Immat Gran (auto) 0.04 H Absolute Neuts (auto) 4.3 Absolute Nucleated RBC 0.000 Nucleated RBC % (auto) 0.0 Hold Purple Top SEE NOTE PT 42.2 H D 50.6 H INR 3.7 H 4.4 H VBG pH 7.46 H VBG pCO2 35 VBG pO2 54 VBG HCO3 25 VBG O2 Saturation 82.0 VBG Base Excess 2.1 Sodium 132 L Potassium 3.5 Chloride 98 Carbon Dioxide 23 Anion Gap 15 BUN 17 H Creatinine 1.16 Estim Creat Clear Calc 56.6 Estimated GFR > 60 Random Glucose 115 Calcium 9.0 D Iron 50 TIBC 228 % Saturation 22 Unsat Iron Binding 178 Hold Yellow Top See Note Progress Note: A&P Assessment and plan (1) 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 Moderate mitral regurgitation. Pulmonary hypertension with elevated right atrial pressure. Moderate loculated pericardial effusion. Chest CT scan reported to have [id number] right and small left pleural effusions with compressive atelectasis. Findings consistent with fluid overload/edema. Reported trace pericardial effusion. Overall, severe cardiomyopathy with recurring hospitalizations. It seems that his most recent dose of Lasix was 80 mg/40 mg prior to that, 40 mg/40 mg. Otherwise, he is on Entresto, spironolactone. In a prior note from myself, that is mention of him not wanting to take Jardiance. Daughter confirms that he did have some side effects from Jardiance. We discussed about an alternative diuretic. We can try Torsemide instead. Continue Entresto and spironolactone. If he is intolerant of Jardiance, consider Farxiga. We discussed about this today. Otherwise, remains on amiodarone/warfarin. Due to concerns of nausea extra, change to amiodarone maintenance dose of 200 mg daily. Discussed at length with daughter at the bedside. Time Spent With Patient Time: Total time managing care of this patient today ____ minutes. Progress Note: Quality Stroke Does the patient have a stroke diagnosis?: No Reason for No Anti-thrombotic by Day Two: N/A - Med Ordered Procedures Date of Service Date of Service: 04/15/25
--- NOTE | 2025-04-15 13:13 | MHC.SL.SWA ---
Speech Pathologist Impression: [facility] NDD3 diet with thin liquids, pt tolerating without oropharyngeal dysphagia. Risk of Aspiration Due to: Undiagnosed esophageal pathology Dysphasia Diet Status: Liquid Consistency and Strategies for Safe Swallow: Liquid Intake Recommendation: Thin Liquid Intake Strategies: Small Sips Solid Food Consistency: Dietary Recommendations: Chopped/Advanced (NDD3) Additional Modifications to Solid Foods: Oral Medication Intake: Whole with Puree Please contact the pharmacy regarding appropriate crushable or liquid drug formulations that are available whenever modified delivery is recommended. Compensatory Strategies and Precautions to be Taken for Safe Swallow: Sitting Upright (90 deg) Small Bites and Sips Alternate Liquids/Solids Rate of Ingestion Change Supervision While Eating and Drinking for Safe Swallow: Intermittent Supervision Foods to Avoid: Tough, difficult to chew solids, dry crunchy textures, too large pieces of food. Swallowing Recommended Treatments: Compens. Strategy Educat. Recommendation for Speech: Inpatient Speech Therapy Comment: 04/15 Pt seen for dysphagia treatment. Pt currently on NDD3 diet with thin liquids, tolerating without oropharyngeal dysphagia. Pt is on 1-2 L continuous O2 by NC, O2 sats in high 90s. No SOB observed with PO intake, though pt does eat quickly. Pt alternated consistencies when eating and remained in upright position after meal. No changes to voice s/p eating. Pt endorsed that he's experiencing problems with eating such as vomiting, wretching, sensation of material getting stuck (gesturing to chest at level of UES), and ongoing belching. Pt reported that the onset of these symptoms coincided with a medication change that was implemented 3 weeks ago. STUBBER provided education on physiological function of oropharyngeal swallow mechanism and concomitant airway protection. Pt verbalized understanding and agreed with diet recommendations. Pt wanted to trial cereal and milk but was not hungry after eating his lunch. GI consultation is indicated to determine etiology of pt's dysphagia. STUBBER will continue to follow and provide tx as indicated. Frequency/Duration: Date Range for Service Req: Timeline to reassess: Basket Assembler Clinican/Clinical Fellow: No Supervisory Statement: I have reviewed and agree with the student/clinical fellow's documentation: N/A Speech Language Pathologist: Rosaline Peace M.S., [facility]-STU[facility]ER
--- NOTE | 2025-04-15 15:18 | MHC.CM.PN ---
IMM 04/15/25, EMR REVIEWED, PT RECENTLY DC'D LAST WEEK AND RETURNED W/WORSENING DYSPNEA AND ON EXERTION, CM MET W/PT AND HCP/DTR TASHA ([facility] [facility] [employer]) AT BEDSIDE, DTR/PT WOULD LIKE STR AND REFERRAL PLACED TO [facility]END[facility]. PCP VERIFIED [facility] LIN[facility], PT COMPLETED A NEW HCP DTR/PT WERE UNSURE IF THEY WOULD BE ABLE TO LOCATE ONE AT HOME. PT NAMED DTR TASHA GEORGE [phone] HIS [facility] AND PT'S BROTHER MERCEDES NUNEZ #ON FILE HIS ALTERNATE, PT PROVIDED W/EDUCATIONAL HANDOUT AND ORIGINAL, COPY UPLOADED TO [facility] AND PLACED IN CHART.
[2025-04-15] MEDS: Sodium Chloride 0.65 % Nasal 44 ML SPRBTL 1 SPRAY NOSTRIL-B (16:00)
[2025-04-16] VITALS (7 sets, daily range): BP systolic 89–115; BP diastolic 53–62; PULSE 75–95; RESP 18–20; TEMP 36.1–36.4; O2SAT 97–99
[2025-04-16 07:23] LABS: INTERNATIONAL NORM RATIO 4.6 (0.9-1.1); Prothrombin Time 52.4 SEC (10.9-12.4)
[2025-04-16] MEDS: 0.9 % Sodium Chloride Flush 3 ML SYRINGE IVFLUSH ×3 (08:09→21:23)
--- NOTE | 2025-04-16 10:33 | PM.PNCARD ---
Subjective Subjective Date of Service: 04/16/25 Interval history: He is stating that he is not feeling good today. Feeling just tired. Breathing itself is okay. Blood pressure is on the lower side. Meds on hold. Review of Systems Review of Systems Yes all other systems are reviewed and are negative Constitutional: Reports as per HPI and Reports no additional constitutional complaints Eyes: Reports as per HPI and Denies no additional eye complaints Denies system reviewed and no additional complaints, except as documented and Reports as per HPI Cardiovascular: Reports as per HPI, Reports no additional cardiovascular complaints, Denies acrocyanosis, Denies cool extremities, Denies chest pain, Denies leg edema, Denies lightheadedness, Denies palpitations and Denies dyspnea Respiratory: Reports as per HPI, Denies no additional respiratory complaints and Denies dyspnea Gastrointestinal: Reports as per HPI and Denies no additional gastrointestinal complaints Genitourinary: Reports no additional male genitourinary complaints and Reports as per HPI Musculoskeletal: Reports no additional musculoskeletal complaints and Reports as per HPI Skin/Breast: Reports system reviewed and no additional complaints, except as docu Reports system reviewed and no additional complaints, except as documented and Reports as per HPI Psychiatric: Reports no additional psychiatric complaints and Reports as per HPI Endocrine: Reports no additional endocrine complaints, Reports as per HPI and Denies palpitations Hematologic/Lymphatic: Reports no additional hematologic/lymphatic complaints and Reports as per HPI Allergic/Immunologic: Reports no additional allergic/immunologic complaints and Reports as per HPI Physical Exam Vital Signs: Last Vital Signs Temp 97.2 F 04/16/25 07:41 Pulse 75 04/16/25 07:41 Resp 20 04/16/25 07:41 BP 89/53 L 04/16/25 07:41 Pulse Ox 98 04/16/25 07:41 O2 Del Method Nasal Cannula 04/16/25 07:41 O2 Flow Rate 2 04/16/25 07:41 BMI result Body Mass Index 26.2 Const General: comfortable and no acute distress Orientation/consciousness: patient oriented x3 HEENT Other: Unremarkable Head: Yes normal to inspection Neck Neck: Yes normal visual inspection Chest Chest palpation & inspection: normal inspection of the chest Resp Auscultation: clear to auscultation bilaterally Cardio Palpation: normal PMI Heart sounds: S1 normal heart sound present, S2 normal heart sound present, no gallops, no murmurs and no rubs GI Palpation (GI): Soft to palpation Back/Spine/Pelvis Other: unremarkable Skin General skin exam: no rashes or lesions noted Neuro General: patient oriented x3 Extrem General: Yes normal to inspection Psych Mental Status: mental status grossly normal Objective Labs and Meds 04/15/25 07:06 04/15/25 07:06 Lab results: Laboratory Results - last 24 hr 04/16/25 07:00 PT 52.4 H INR 4.6 H Progress Note: A&P Assessment and plan (1) 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 Moderate mitral regurgitation. Pulmonary hypertension with elevated right atrial pressure. Moderate loculated pericardial effusion. Chest CT scan reported to have [id number] right and small left pleural effusions with compressive atelectasis. Findings consistent with fluid overload/edema. Reported trace pericardial effusion. Overall, severe cardiomyopathy with recurring hospitalizations. It seems that his most recent dose of Lasix was 80 mg/40 mg prior to that, 40 mg/40 mg. Otherwise, he is on Entresto, spironolactone. In a prior note from myself, that is mention of him not wanting to take Jardiance. Daughter confirms that he did have some side effects from Jardiance. Today, he is hypotensive and not feeling good. We can hold off on the meds for today including Entresto/spironolactone. We did switch the diuretic from Lasix to torsemide but with hypotension, we can hold off on the morning dose. Otherwise, I am not entirely clear if he will tolerate Farxiga. We discussed about that yesterday as an alternative to Jardiance. For the atrial fibrillation itself, stable. He is on amiodarone/warfarin. Amiodarone dose was decreased from loading to maintenance 200 mg daily because of nausea. Overall, guarded prognosis with many hospitalizations and difficult to treat congestive heart failure with episodes of hypotension which limits optimal guideline based medical therapy use. Time Spent With Patient Time: Total time managing care of this patient today ____ minutes. Progress Note: Quality Stroke Does the patient have a stroke diagnosis?: No Reason for No Anti-thrombotic by Day Two: N/A - Med Ordered Procedures Date of Service Date of Service: 04/16/25
--- NOTE | 2025-04-16 12:39 | MHC.SL.SWA ---
Speech Pathologist Impression: Risk of Aspiration Due to: Dysphasia Diet Status: UPGRADE diet to REGULAR continue with Thin liquids, pills whole with puree. Patient is encouraged to elect softer, moist foods from the regular menu, and to continue to follow strategies of: Small bites/sips, chew thoroughly, regularly alternate liquids and solids. Liquid Consistency and Strategies for Safe Swallow: Liquid Intake Recommendation: Thin Liquid Intake Strategies: Small Sips Solid Food Consistency: Dietary Recommendations: Regular Additional Modifications to Solid Foods: Oral Medication Intake: Whole with Puree Please contact the pharmacy regarding appropriate crushable or liquid drug formulations that are available whenever modified delivery is recommended. Compensatory Strategies and Precautions to be Taken for Safe Swallow: Sitting Upright (90 deg) Small Bites and Sips Alternate Liquids/Solids Rate of Ingestion Change Supervision While Eating and Drinking for Safe Swallow: None Needed Foods to Avoid: Tough, difficult to chew solids, dry crunchy textures, too large pieces of food. Swallowing Recommended Treatments: Compens. Strategy Educat. Recommendation for Speech: Inpatient Speech Therapy Comment: Patient seen for re-assessment for possible upgrade to current diet. [employer] attempted this AM, patient was sleeping but had left notes for [facility] about dissatisfaction with texture and quality of breakfast meal. Per [employer] note of 04/15, patient asking for cereal with milk. Upon greeting for this session, patient requested bread with meals. [employer] explained rational for current diet, given his presentation of pharyngeal/esophageal dysphagia, however offered trial of cereal and mild as a basis for upgrade to a regular diet. Patient was very pleasant and cooperative with this offer. Patient given Cheerios with regular milk, which patient self-fed, producing thorough mastication and oral control of contrasting textures, timely swallow, no c/o globus. Patient noted that he is receiving IV PPI as well as anti nausea which has helped with his discomfort with swallowing. Patient did note he has Only four teeth due to dental loss from radiation. [employer] discussed the need for patient to elect softer foods from the regular menu and to avoid tough, difficult to chew solids or foods that are in too large pieces. Patient agreed with this plan and was pleased with the upgrade. [employer] to f/u X1 for toleration. White board updated, diet upgraded in Expanse. Frequency/Duration: Date Range for Service Req: Timeline to reassess: Upsetter Helper Clinican/Clinical Fellow: No Supervisory Statement: I have reviewed and agree with the student/clinical fellow's documentation: N/A Speech Language Pathologist: Kim Suero M.A., CCC-[employer]
[2025-04-16] MEDS: Milk of Magnesia 30 ML ORAL.SUSP PO (13:06)
--- NOTE | 2025-04-16 15:27 | P.PNIM_ITS ---
Subjective Subjective Date of Service: 04/16/25 Interval History: No acute issues overnight. Breathing somewhat improved low BP today Feeling tired and weak Review of Systems Denies chest pain Denies nausea vomiting diarrhea Denies fever chills Physical Exam 2 Vital Signs: Vital Signs: Last Vital Signs Temp 97.6 F 04/16/25 15: Pulse 90 04/16/25 15:26 Resp 18 04/16/25 15:26 BP 96/60 04/16/25 15: Pulse Ox 97 04/16/25 15: O2 Del Method Nasal Cannula 04/16/25 15: O2 Flow Rate 2 04/16/25 15:26 BMI result Body Mass Index 26.2 Objective Data Active Medications Acetaminophen (Acetaminophen 325 Mg Tablet) 650 mg PO Q6H PRN PRN Reason: Pain, Mild 1-3,fever,headache Albuterol/Ipratropium (Albuterol/Iprat 2.5/0.5mg 3 Ml Ampul.Neb) 3 ml INHALE Q4H PRN PRN Reason: Shortness of Breath/Wheezing Amiodarone HCl (Amiodarone Hcl 200 Mg Tablet) 200 mg PO DAILY [facility] On Hold: 04/16/25 09:00 Last Admin: 04/16/25 08:03 Dose: Not Given Documented By: KIRBY Non-Admin Reason: Physician Held Med Atorvastatin Calcium (Atorvastatin Calcium 10 Mg Tablet) 10 mg PO DAILY [facility] Last Admin: 04/16/25 08:10 Dose: 10 mg Documented By: KIRBY Calcium Carbonate (Calcium Carbonate 750 Mg Tab.Chew) 750 mg PO Q4H PRN PRN Reason: Heartburn Famotidine (Famotidine/Pf 20 Mg/2 Ml Vial) 20 mg IVPUSH DAILY [facility] Last Admin: 04/16/25 08:09 Dose: 20 mg Documented By: KIRBY Lorazepam (Lorazepam 0.5 Mg Tablet) 0.25 mg PO BID PRN PRN Reason: Anxiety Last Admin: 04/16/25 08:09 Dose: 0.25 mg Documented By: KIRBY Magnesium Hydroxide (Milk Of Magnesia 30 Ml Oral.Susp) 30 ml PO DAILY PRN PRN Reason: Constipation Last Admin: 04/16/25 13:06 Dose: 30 ml Documented By: KIRBY Melatonin (Melatonin 3 Mg Tablet) 6 mg PO BEDTIME PRN PRN Reason: Insomnia Last Admin: 04/14/25 21:11 Dose: 6 mg Documented By: FLORY Nystatin (Nystatin Powder 15 Gm Bottle) 1 appl TOPICAL BID [facility]; Protocol Last Admin: 04/16/25 08:21 Dose: 1 appl Documented By: KIRBY Omeprazole (Omeprazole 20 Mg Capsule.Dr) 20 mg PO DAILY@0630 [facility] Last Admin: 04/16/25 06:17 Dose: 20 mg Documented By: MARK Ondansetron HCl (Ondansetron Hcl 4 Mg/2 Ml Vial) 4 mg IVPUSH Q8H PRN PRN Reason: Nausea and Vomiting Last Admin: 04/14/25 16:27 Dose: 4 mg Documented By: KIRBY Pantoprazole Sodium (Pantoprazole Sodium 40 Mg/10 Ml Vial) 40 mg IVPUSH DAILY@0630 [facility] Last Admin: 04/16/25 06:17 Dose: 40 mg Documented By: MARK Polyethylene Glycol (Polyethylene Glycol 3350 17 Gm Powd.Pack) 17 gm PO DAILY PRN PRN Reason: Constipation Potassium Chloride (Potassium Chloride Packet 20 Meq Packet) 20 meq PO DAILY [facility] Last Admin: 04/16/25 08:24 Dose: Not Given Documented By: KIRBY Non-Admin Reason: PT requesting pill form Sacubitril/Valsartan (Sacubitril/Valsartan 1 Tab Tablet) 1 tab PO BID [facility]; Protocol On Hold: 04/16/25 08:17 Last Admin: 04/16/25 08:03 Dose: Not Given Documented By: KIRBY Non-Admin Reason: Physician Held Med Senna (Sennosides 8.6 Mg Tablet) 17.2 mg PO BEDTIME [facility] Last Admin: 04/15/25 21:53 Dose: 17.2 mg Documented By: MARK Sodium Chloride (0.9 % Sodium Chloride Flush 3 Ml Syringe) 3 ml IVFLUSH QSHIFT [facility] Last Admin: 04/16/25 08:09 Dose: 3 ml Documented By: KIRBY Sodium Chloride (Sodium Chloride 0.65 % Nasal 44 Ml Sprbtl) 1 spray NOSTRIL-B Q1H PRN PRN Reason: Nasal Congestion Last Admin: 04/15/25 16:00 Dose: 1 spray Documented By: KIRBY Sodium Chloride (Sodium Chloride 0.65 % Nasal 44 Ml Sprbtl) 1 spray NOSTRIL-B Q1H PRN PRN Reason: congestion Spironolactone (Spironolactone 25 Mg Tablet) 25 mg PO DAILY@1200 [facility]; Protocol On Hold: 04/16/25 08:17 Last Admin: 04/15/25 12:44 Dose: 25 mg Documented By: KIRBY Torsemide (Torsemide 20 Mg Tablet) 40 mg PO BID [facility]; Protocol On Hold: 04/16/25 08:17 Last Admin: 04/16/25 08:04 Dose: Not Given Documented By: KIRBY Non-Admin Reason: Physician Held Med Warfarin Sodium (Warfarin Sodium 5 Mg Tablet) 5 mg PO SUWEFR@1800 [facility] On Hold: 04/15/25 08:15 Resume: 04/17/25 08:01 Last Admin: 04/14/25 18:29 Dose: 5 mg Documented By: KIRBY Warfarin Sodium (Warfarin Sodium 7.5 Mg Tablet) 7.5 mg PO MOTUTHSA@1800 [facility] Zolpidem Tartrate (Zolpidem Tartrate 5 Mg Tablet) 5 mg PO BEDTIME PRN PRN Reason: Insomnia Labs 04/15/25 07:06 04/15/25 07:06 Labs: Laboratory Results - last 24 hr 04/16/25 07:00 PT 52.4 H INR 4.6 H Microbiology Microbiology Results: Microbiology 04/13/25 23:53 Blood Culture - Preliminary Blood - Venous No growth after 48 hours. 04/13/25 23:39 Blood Culture - Preliminary Blood - Venous No growth after 48 hours. Assessment and Plan (1) Acute on chronic diastolic CHF (congestive heart failure): Status: Acute Plan 80 yo [place] male with PMH HFrEF 20-25% - moderate MVR, severe pulmonary HTN and no pericaridal effusion last echo 04/03/25, HTN, AFIB on coumadin, NSVT, Prolonged Qtc, CKD 3am GERD, Anemia, PNA, Prostate Cancer with radiation, CVA presents to ED vis ambulance with complaints of worsening SOB with dry heaving for a few days. Pt was instructed by his provider outpatient to start taking 80 mgs of lasix in the AM and 40 in the PM but it did not help with pt's symptoms. Pt being admitted for CHF exacerbation and additional medical problems. Pt believes his dry mouth and swallowing issues with persistent nausea are related to amiodorone that he started 2 weeks ago. Hypotension Likely over-diuresis Entresto, spironolactone, torsemide, amiodarone all held Discussed with Cardiology regarding order of medication to restart tomorrow Acute exacerbation of systolic congestive heart failure Lasix 40 mg IV b.i.d. stopped, started on torsemide 40 mg BID but became hypotensive today so stopped Also hold Entresto/Aldactone follow renals/divalents May be over diuresed, recheck labs tomorrow and discussed with Cardiology Echo from 04/03/25 showing severe pulmonary hypertension, we will consult pulmonology BERNA in backdrop of CKD 3 resolved mild elevation Likely from IV diuresis follow renal/divalent Dysphagia (describes esophageal stricture) Pepcid IV as ordered seen by speech therapy; diet modified Paroxysmal atrial fibrillation stable and well compensated continue warfarin with daily INR amiodarone down to 200 mg daily, held today due to hypotension DVT Prophylaxis: Coumadin DNR/DNI Discussed with Daughter, Dee. Patient will likely go to [facility] [place] and then possibly to daughters home. Hospice was also discussed. Daughter to decide Quality Stroke Does the patient have a stroke diagnosis?: No Reason for No Anti-thrombotic by Day Two: N/A - Med Ordered VTE Prior VTE?: No VTE Risk Level:: Medical - moderate - high VTE Device Contraindication: N/A - Device Ordered VTE Drug Contraindication: N/A - Med Ordered
[2025-04-17] VITALS (8 sets, daily range): BP systolic 92–121; BP diastolic 56–63; PULSE 76–94; RESP 18–20; TEMP 36.1–36.6; O2SAT 95–98
[2025-04-17 06:58] LABS: INTERNATIONAL NORM RATIO 3.3 (0.9-1.1); Prothrombin Time 37.7 SEC (10.9-12.4)
--- NOTE | 2025-04-17 09:14 | MHC.SL.SWA ---
Speech Pathologist Impression: Oropharyngeal swallow WNL, [facility] GI consultation d/t suspected esophageal dysphagia Risk of Aspiration Due to: Dysphasia Diet Status: UPGRADE diet to REGULAR continue with Thin liquids, pills whole with puree. Patient is encouraged to elect softer, moist foods from the regular menu, and to continue to follow strategies of: Small bites/sips, chew thoroughly, regularly alternate liquids and solids. Liquid Consistency and Strategies for Safe Swallow: Liquid Intake Recommendation: Thin Liquid Intake Strategies: Small Sips Solid Food Consistency: Dietary Recommendations: Regular Additional Modifications to Solid Foods: Oral Medication Intake: Whole with Puree Please contact the pharmacy regarding appropriate crushable or liquid drug formulations that are available whenever modified delivery is recommended. Compensatory Strategies and Precautions to be Taken for Safe Swallow: Sitting Upright (90 deg) Small Bites and Sips Alternate Liquids/Solids Rate of Ingestion Change Supervision While Eating and Drinking for Safe Swallow: None Needed Foods to Avoid: Tough, difficult to chew solids, dry crunchy textures, too large pieces of food. Swallowing Recommended Treatments: Compens. Strategy Educat. Recommendation for Speech: Inpatient Speech Therapy Comment: Pt is tolerating diet (regular solids, thin liquids) without oropharyngeal dysphagia symptoms. Pt cuts pills in half to tolerate with water. Pt reports onset of dysphagia coincides with starting Amiodarone, medication for sinus rhythm. Pt endorses that this medication is beneficial. Pt has been referred for GI consultation. Pt is on 2L of continuous O2 by NM. Pt reports he has PRESS HELPER at home 7 days a week, with 3 hours M-F and 2 hours Sat/Sun. Pt would like increased PRESS HELPER time. SWIMMING PROFESSOR provided education on oropharyngeal phases of swallow, pt verbalized understanding and agrees with d/c from at this time. Pt to be seen by GI and if needed, referred for SWIMMING PROFESSOR tx as indicated. Frequency/Duration: Date Range for Service Req: Timeline to reassess: Java Developer Architect Clinican/Clinical Fellow: No Supervisory Statement: I have reviewed and agree with the student/clinical fellow's documentation: N/A Speech Language Pathologist: Rosaline Peace M.S., [facility]-SWIMMING PROFESSOR
[2025-04-17] MEDS: 0.9 % Sodium Chloride Flush 3 ML SYRINGE IVFLUSH ×3 (09:41→20:12)
[2025-04-17] MEDS: Potassium Chloride ER 20 MEQ TAB.ER.PRT PO (09:44)
[2025-04-17 10:15] LABS: Anion Gap 11 (12-20); Blood Urea Nitrogen 20 mg/dL (9-16); Calcium 8.9 mg/dL (8.4-10.2); Carbon Dioxide 26 mmol/L (22-29); Chloride 96 mmol/L (96-108); Creatinine Clr Calc Pharmacy 52.5; Estimated Glomerular Filt Rate 56; Magnesium 2.0 mg/dL (1.6-2.6); Potassium 3.4 mmol/L (3.3-5.1); Sodium 130 mmol/L (135-145)
--- NOTE | 2025-04-17 10:20 | PM.PNCARD ---
Subjective Subjective Date of Service: 04/17/25 Interval history: He states that he is feeling better than yesterday. He is sitting in a chair. No overt symptoms. Review of Systems Review of Systems Denies chest pain Denies nausea vomiting diarrhea Denies fever chills Yes all other systems are reviewed and are negative Constitutional: Reports as per HPI and Reports no additional constitutional complaints Eyes: Reports as per HPI and Denies no additional eye complaints Denies system reviewed and no additional complaints, except as documented and Reports as per HPI Cardiovascular: Reports as per HPI, Reports no additional cardiovascular complaints, Denies acrocyanosis, Denies cool extremities, Denies chest pain, Denies leg edema, Denies lightheadedness, Denies palpitations and Denies dyspnea Respiratory: Reports as per HPI, Denies no additional respiratory complaints and Denies dyspnea Gastrointestinal: Reports as per HPI and Denies no additional gastrointestinal complaints Genitourinary: Reports no additional male genitourinary complaints and Reports as per HPI Musculoskeletal: Reports no additional musculoskeletal complaints and Reports as per HPI Skin/Breast: Reports system reviewed and no additional complaints, except as docu Reports system reviewed and no additional complaints, except as documented and Reports as per HPI Psychiatric: Reports no additional psychiatric complaints and Reports as per HPI Endocrine: Reports no additional endocrine complaints, Reports as per HPI and Denies palpitations Hematologic/Lymphatic: Reports no additional hematologic/lymphatic complaints and Reports as per HPI Allergic/Immunologic: Reports no additional allergic/immunologic complaints and Reports as per HPI Physical Exam Vital Signs: Last Vital Signs Temp 97.2 F 04/17/25 07:10 Pulse 80 04/17/25 07:10 Resp 20 04/17/25 07:10 BP 103/61 04/17/25 07:10 Pulse Ox 98 04/17/25 07:10 O2 Del Method Nasal Cannula 04/17/25 07:10 O2 Flow Rate 3 04/17/25 07:10 BMI result Body Mass Index 26.2 Const General: comfortable and no acute distress Orientation/consciousness: patient oriented x3 HEENT Other: Unremarkable Head: Yes normal to inspection Neck Neck: Yes normal visual inspection Chest Chest palpation & inspection: normal inspection of the chest Resp Auscultation: clear to auscultation bilaterally Cardio Palpation: normal PMI Heart sounds: S1 normal heart sound present, S2 normal heart sound present, no gallops, no murmurs and no rubs GI Palpation (GI): Soft to palpation Back/Spine/Pelvis Other: unremarkable Skin General skin exam: no rashes or lesions noted Neuro General: patient oriented x3 Extrem Other: Trace edema General: Yes normal to inspection Psych Mental Status: mental status grossly normal Objective Labs and Meds 04/15/25 07:06 04/17/25 09:21 Lab results: Laboratory Results - last 24 hr 04/17/25 04/17/25 06:15 09:21 Hold Purple Top SEE NOTE PT 37.7 H D INR 3.3 H Sodium 130 L Potassium 3.4 Chloride 96 Carbon Dioxide 26 Anion Gap 11 L BUN 20 H Creatinine 1.25 Estim Creat Clear Calc 52.5 Estimated GFR 56 Random Glucose 188 H Calcium 8.9 Magnesium 2.0 Progress Note: A&P Assessment and plan (1) 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 Moderate mitral regurgitation. Pulmonary hypertension with elevated right atrial pressure. Moderate loculated pericardial effusion. Chest CT scan reported to have [id number] right and small left pleural effusions with compressive atelectasis. Findings consistent with fluid overload/edema. Reported trace pericardial effusion. Overall, severe cardiomyopathy with recurring hospitalizations. It seems that his most recent dose of Lasix was 80 mg/40 mg prior to that, 40 mg/40 mg. Otherwise, he is on Entresto, spironolactone. In a prior note from myself, that is mention of him not wanting to take Jardiance. Daughter confirms that he did have some side effects from Jardiance. Yesterday, he was hypotensive and meds were held. He would not get the diuretic or the Entresto/spironolactone. Today, pressures seems better and he is also better. We can resume at least a diuretic. We switched him from Lasix to torsemide and he can try that. Still hold off on Entresto/spironolactone. Overall, difficult issue. With regard to the atrial fibrillation itself, seems stable and he is on amiodarone/warfarin. We did decrease the amiodarone dose from loading to maintenance 200 mg because of nausea. Overall, guarded prognosis with many hospitalizations and difficult to treat congestive heart failure with episodes of hypotension which limits optimal guideline based medical therapy use. Time Spent With Patient Time: Total time managing care of this patient today ____ minutes. Progress Note: Quality Stroke Does the patient have a stroke diagnosis?: No Reason for No Anti-thrombotic by Day Two: N/A - Med Ordered Procedures Date of Service Date of Service: 04/17/25
[2025-04-17 10:25] LABS: B Type Natriuretic Peptide 1114 pg/mL (<100)
--- NOTE | 2025-04-17 11:13 | MHC.CM.PN ---
Addendum entered by Kim Amin RN 04/17/25 11:30: HOSPITALIST AGREEABLE TO PALLIATIVE/HOSPICE INFORMATIONAL, [facility]POR[facility] PREFERRED [facility], REFERRAL PLACED. Original Note: EMR REVIEWED, PER HOSPITALIST PT REMAINS IN CHF, HYPOTENSIVE AND AWAITING GI/PULMONARY, CM RECEIVED CALL FROM PT'S HCP/DTR [facility] WHO REPORTED HOSPITLIST YESTERDAY MENTIONED HOSPICE D/T PT'S PULMONARY HTN AND HEART FAILURE, PT DOES HAVE EJECTION FX 20-25%, CM WILL CONSULT W/HOSPITALIST [facility] IS REQUESTING A PALLIATIVE/HOSPICE CONSULT AND CONT TO FOLLOW DC NEEDS.
--- NOTE | 2025-04-17 12:52 | P.CONPL_ITS ---
History of Present Illness History of Present Illness Consult date: 04/17/25 Chief complaint: Shortness of Breath, Right Pleural Effusion Narrative: 80-year-old gentleman with underlying severe systolic cardiomyopathy with EF paroxysmally 20%, followed by [facility], pulmonary hypertension secondary to left heart failure, CKD, prostate cancer, AFib on anticoagulation admitted on 04/14/2025 with congestive heart failure exacerbation that has been improving with diuresis. Pulmonary evaluation was requested secondary to underlying diagnosis of pulmonary hypertension. Review of Systems 2 Constitutional: Constitutional: Denies daytime sleepiness, Denies excessive sweating, Denies fatigue, Denies fever(s), Denies lethargy, Denies malaise, Denies night sweats, Denies snoring and Denies weight loss Eyes: Eyes: Denies blurry vision and Denies itchy eyes ENT: Denies nasal congestion, Denies post nasal drip, Denies sinus pain, Denies sinus pressure and Denies other ( Thrush) Cardiovascular: Cardiovascular: Denies chest pain, Reports pedal edema, Denies dyspnea, Reports dyspnea on exertion, Reports orthopnea and Denies paroxysmal nocturnal dyspnea Respiratory: Respiratory: Denies cough, Denies hemoptysis, Denies excessive phlegm production, Denies dyspnea, Reports dyspnea on exertion, Denies snoring and Denies wheezing Gastrointestinal: Gastrointestinal: Denies abdominal pain and Denies heartburn Musculoskeletal: Musculoskeletal: Denies myalgias, Denies arthralgias and Denies joint swelling Integumentary/Breasts: Skin/Breast: Denies rash Neurologic: Denies memory loss and Denies seizure-like activity Psychiatric: Psychiatric: Denies abnormal sleep pattern, Denies anxiety and Denies memory loss Endocrine: Endocrine: Denies excessive sweating, Denies fatigue and Denies heat intolerance Hematologic/Lymphatic: Hematologic/Lymphatic: Denies easy bruising Allergic/Immunologic: Allergic/Immunologic: Denies itchy eyes, Denies seasonal rhinorrhea and Denies wheezing PMFSH Past Medical History Medical History (Updated 04/17/25 @ 12:56 by Jhon Guerrero MD) Prostate cancer Atrial flutter Congestive heart failure CKD (chronic kidney disease) stage 3, GFR 30-59 ml/min Acute on chronic combined systolic and diastolic CHF (congestive heart failure) Orthopnea Anxiety Myocardial infarct, old CHF (congestive heart failure) CVA (cerebral vascular accident) A-fib Surgical History Surgical History History of appendectomy Social History Social History Household Members: None Housing: House Do you presently have visiting nurse or other home services: Yes Alcohol intake: former Patient Tobacco Use Status: Former Tobacco user service: No Current occupational status: disabled Travel History Ebola Risk: Travel/Contact With Anyone From Affected Area/s: No Has Patient Experienced Ebola Symptoms: No Meds Allergies Allergy/AdvReac Type Severity Reaction Status Date / Time adenosine Allergy Severe cardiac, Verified 04/13/25 22:59 elevated BP, Stroke Gadolinium-Containing Allergy Severe red eyes Verified 04/13/25 22:59 Contrast Medi Iodinated Contrast Media Allergy Severe Seizure Verified 04/13/25 22:59 (CONTRAST, IV) carvedilol Allergy Intermediate disorientat Verified 04/13/25 22:59 ion erythromycin base AdvReac Unknown Gut Verified 04/13/25 22:59 pain , Abdominal Pain, GI upset Active Medications: Current Medications Acetaminophen (Acetaminophen 325 Mg Tablet) 650 mg PO Q6H PRN PRN Reason: Pain, Mild 1-3,fever,headache Albuterol/Ipratropium (Albuterol/Iprat 2.5/0.5mg 3 Ml Ampul.Neb) 3 ml INHALE Q4H PRN PRN Reason: Shortness of Breath/Wheezing Amiodarone HCl (Amiodarone Hcl 200 Mg Tablet) 200 mg PO DAILY [facility] Last Admin: 04/17/25 09:36 Dose: 200 mg Atorvastatin Calcium (Atorvastatin Calcium 10 Mg Tablet) 10 mg PO DAILY [facility] Last Admin: 04/17/25 09:36 Dose: 10 mg Calcium Carbonate (Calcium Carbonate 750 Mg Tab.Chew) 750 mg PO Q4H PRN PRN Reason: Heartburn Famotidine (Famotidine/Pf 20 Mg/2 Ml Vial) 20 mg IVPUSH DAILY [facility] Last Admin: 04/17/25 09:36 Dose: 20 mg Lorazepam (Lorazepam 0.5 Mg Tablet) 0.25 mg PO BID PRN PRN Reason: Anxiety Last Admin: 04/16/25 23:33 Dose: 0.25 mg Magnesium Hydroxide (Milk Of Magnesia 30 Ml Oral.Susp) 30 ml PO DAILY PRN PRN Reason: Constipation Last Admin: 04/16/25 13:06 Dose: 30 ml Melatonin (Melatonin 3 Mg Tablet) 6 mg PO BEDTIME PRN PRN Reason: Insomnia Last Admin: 04/16/25 23:35 Dose: 6 mg Nystatin (Nystatin Powder 15 Gm Bottle) 1 appl TOPICAL BID [facility]; Protocol Last Admin: 04/17/25 09:37 Dose: 1 appl Omeprazole (Omeprazole 20 Mg Capsule.Dr) 20 mg PO DAILY@0630 [facility] Last Admin: 04/17/25 05:57 Dose: 20 mg Ondansetron HCl (Ondansetron Hcl 4 Mg/2 Ml Vial) 4 mg IVPUSH Q8H PRN PRN Reason: Nausea and Vomiting Last Admin: 04/17/25 12:34 Dose: 4 mg Polyethylene Glycol (Polyethylene Glycol 3350 17 Gm Powd.Pack) 17 gm PO DAILY PRN PRN Reason: Constipation Potassium Chloride (Potassium Chloride Er 20 Meq Tab.Er.Prt) 20 meq PO DAILY [facility] Last Admin: 04/17/25 09:44 Dose: 20 meq Sacubitril/Valsartan (Sacubitril/Valsartan 1 Tab Tablet) 1 tab PO BID [facility]; Protocol On Hold: 04/16/25 08:17 Last Admin: 04/16/25 08:03 Dose: Not Given Senna (Sennosides 8.6 Mg Tablet) 17.2 mg PO BEDTIME [facility] Last Admin: 04/16/25 21:23 Dose: Not Given Sodium Chloride (0.9 % Sodium Chloride Flush 3 Ml Syringe) [facility] Last Admin: 04/17/25 09:41 Dose: 3 ml Sodium Chloride (Sodium Chloride 0.65 % Nasal 44 Ml Sprbtl) 1 spray NOSTRIL-B Q1H PRN PRN Reason: Nasal Congestion Last Admin: 04/15/25 16:00 Dose: 1 spray Sodium Chloride (Sodium Chloride 0.65 % Nasal 44 Ml Sprbtl) 1 spray NOSTRIL-B Q1H PRN PRN Reason: congestion Spironolactone (Spironolactone 25 Mg Tablet) 25 mg PO DAILY@1200 [facility]; Protocol On Hold: 04/16/25 08:17 Last Admin: 04/15/25 12:44 Dose: 25 mg Torsemide (Torsemide 20 Mg Tablet) 40 mg PO BID [facility]; Protocol Last Admin: 04/17/25 09:36 Dose: 40 mg Warfarin Sodium (Warfarin Sodium 5 Mg Tablet) 5 mg PO SUWEFR@1800 [facility] On Hold: 04/17/25 08:56 Last Admin: 04/14/25 18:29 Dose: 5 mg Warfarin Sodium (Warfarin Sodium 7.5 Mg Tablet) 7.5 mg PO MOTUTHSA@1800 [facility] On Hold: 04/16/25 18:00 Zolpidem Tartrate (Zolpidem Tartrate 5 Mg Tablet) 5 mg PO BEDTIME PRN PRN Reason: Insomnia Home Medications ?Medication ?Instructions ?Recorded ?Confirmed ?Last Taken ?Type omeprazole 20 mg capsule,delayed 20 mg PO DAILY@0630 0 11/14/20 04/14/25 04/13/25 History release coenzyme Q10 100 mg capsule 100 mg PO DAILY 04/14/21 0 04/14/25 04/13/25 History (CoQ-10) simvastatin 20 mg tablet 10 mg PO DAILY 11/19/2403/2304/13/25 History furosemide 20 mg tablet 40 mg PO BID@0700,1400 12/1704/14/25 04/13/25 History spironolactone 25 mg tablet 25 mg PO DAILY@1200 04/14/25 04/13/25 History warfarin 2.5 mg tablet 5 mg PO SUWEFR@1800 04/03/25 04/14/25 03/31/25 History warfarin 2.5 mg tablet 7.5 mg PO MOTUTHSA@1800 03/2204/14/25 04/13/25 History amiodarone 200 mg tablet 200 mg PO BID 04/14/2504/1404/13/25 History Physical Exam 2 Vital Signs: Vital Signs: Last Vital Signs Temp 97.4 F 04/17/25 11:12 Pulse 94 04/17/25 11:12 Resp 20 04/17/25 11:12 BP 108/63 04/17/25 11:12 Pulse Ox 98 04/17/25 11:12 O2 Del Method Nasal Cannula 04/17/25 11:12 O2 Flow Rate 2 04/17/25 11:12 BMI result Body Mass Index 26.2 Const: General: no acute distress and alert Nutritional Appearance: not obese Orientation/consciousness: Other orientation findings ( oriented) HEENT: Head: Yes atraumatic Eyes: General: appearance normal, both eyes and all related structures S clerae: sclerae normal EOM: EOMs intact bilaterally Neck: Neck: Yes supple Lymphatic: no lymphadenopathy noted Resp: Effort & Inspection: normal respiratory effort and no use of accessory muscles Auscultation: clear to auscultation bilaterally Cardio: Rate: regular rate Rhythm: regular rhythm Heart sounds: no gallops, no murmurs and no rubs Skin: General skin exam: other ( warm) Extrem: General: No clubbing, No cyanosis and Yes edema (Trace bilateral) Results Laboratory Findings 04/15/25 07:06 04/17/25 09:21 ABG, PT/INR, D-dimer: PT/INR, D-dimer PT 37.7 SEC (10.9-12.4) H D 04/17/25 06:15 INR 3.3 (0.9-1.1) H 04/17/25 06:15 Abnormal lab findings: Abnormal Labs 04/13/25 04/14/25 04/14/25 23:36 01:51 10:32 RBC 4.19 L Hgb 12.9 L Hct 36.9 L Plt Count Immature Gran % (Auto) Abs Immat Gran (auto) PT 32.7 H D INR 2.8 H VBG pH 7.46 H Sodium Anion Gap BUN 22 H Creatinine 1.44 H Random Glucose Fasting Glucose 134 H Calcium 10.3 H D Total Bilirubin 1.1 H Troponin I High Sens 58.8 H 57.3 H B-Natriuretic Peptide 2145 H 04/14/25 04/15/25 04/16/25 18:55 07:06 07:00 RBC 4.06 L Hgb 12.5 L Hct 35.8 L Plt Count 144 L Immature Gran % (Auto) 0.6 H Abs Immat Gran (auto) 0.04 H PT 42.2 H D 50.6 H 52.4 H INR 3.7 H 4.4 H 4.6 H VBG pH Sodium 132 L Anion Gap BUN 17 H Creatinine Random Glucose Fasting Glucose Calcium Total Bilirubin Troponin I High Sens B-Natriuretic Peptide 04/17/25 04/17/25 06:15 09:21 RBC Hgb Hct Plt Count Immature Gran % (Auto) Abs Immat Gran (auto) PT 37.7 H D INR 3.3 H VBG pH Sodium 130 L Anion Gap 11 L BUN 20 H Creatinine Random Glucose 188 H Fasting Glucose Calcium Total Bilirubin Troponin I High Sens B-Natriuretic Peptide 1114 H Microbiology: Microbiology 04/13/25 23:53 Blood - Venous Blood Culture - Preliminary No growth after 48 hours. 04/13/25 23:39 Blood - Venous Blood Culture - Preliminary No growth after 48 hours. Assessment and Plan (1) Acute on chronic combined systolic and diastolic ACC/AHA stage C congestive heart failure: Status: Acute (2) Pulmonary hypertension: Status: Acute (3) Hypoxia: Status: Acute Plan Impression: 80-year-old gentleman with underlying severe systolic cardiomyopathy and AFib admitted with acute on chronic systolic congestive heart failure improving with diuresis. Patient does have underlying pulmonary hypertension secondary to left heart disease. Recommendation: No advanced pulmonary hypertension therapies indicated. Agree with additional diuresis. Procedures Date of Service Date of Service: 04/17/25
--- NOTE | 2025-04-17 15:35 | P.PNIM_ITS ---
Subjective Subjective Date of Service: 04/17/25 Interval History: dyspnea improving, still feels somewhat weak dysphagia predates amiodarone initiation remains in NSR 6 beats of NSVT overnight without symptoms Review of Systems Review of Systems: Yes all other systems are reviewed and are negative Physical Exam 2 Vital Signs: Vital Signs: Last Vital Signs Temp 97.4 F 04/17/25 11:12 Pulse 94 04/17/25 11:50 Resp 20 04/17/25 11:12 BP 108/63 04/17/25 11:50 Pulse Ox 98 04/17/25 11:50 O2 Del Method Nasal Cannula 04/17/25 11:12 O2 Flow Rate 2 04/17/25 11:12 BMI result Body Mass Index 26.2 Gen: in no acute distress HEENT: sclera anicteric, moist mucus membranes Neck: supple Lungs: clear to auscultation bilaterally Heart: regular rate and rhythm, no murmurs Abd: soft, non-tender, non-distended Ext: no edema Skin: warm/well-perfused Neuro: alert and oriented x3, no focal findings Psych: appropriate affect Objective Data Active Medications Acetaminophen (Acetaminophen 325 Mg Tablet) 650 mg PO Q6H PRN PRN Reason: Pain, Mild 1-3,fever,headache Albuterol/Ipratropium (Albuterol/Iprat 2.5/0.5mg 3 Ml Ampul.Neb) 3 ml INHALE Q4H PRN PRN Reason: Shortness of Breath/Wheezing Amiodarone HCl (Amiodarone Hcl 200 Mg Tablet) 200 mg PO DAILY [facility] Last Admin: 04/17/25 09:36 Dose: 200 mg Documented By: IRVING Atorvastatin Calcium (Atorvastatin Calcium 10 Mg Tablet) 10 mg PO DAILY [facility] Last Admin: 04/17/25 09:36 Dose: 10 mg Documented By: IRVING Calcium Carbonate (Calcium Carbonate 750 Mg Tab.Chew) 750 mg PO Q4H PRN PRN Reason: Heartburn Famotidine (Famotidine/Pf 20 Mg/2 Ml Vial) 20 mg IVPUSH DAILY [facility] Last Admin: 04/17/25 09:36 Dose: 20 mg Documented By: IRVING Lorazepam (Lorazepam 0.5 Mg Tablet) 0.25 mg PO BID PRN PRN Reason: Anxiety Last Admin: 04/16/25 23:33 Dose: 0.25 mg Documented By: MARK Magnesium Hydroxide (Milk Of Magnesia 30 Ml Oral.Susp) 30 ml PO DAILY PRN PRN Reason: Constipation Last Admin: 04/16/25 13:06 Dose: 30 ml Documented By: KIRBY Melatonin (Melatonin 3 Mg Tablet) 6 mg PO BEDTIME PRN PRN Reason: Insomnia Last Admin: 04/16/25 23:35 Dose: 6 mg Documented By: MARK Nystatin (Nystatin Powder 15 Gm Bottle) 1 appl TOPICAL BID [facility]; Protocol Last Admin: 04/17/25 09:37 Dose: 1 appl Documented By: IRVING Omeprazole (Omeprazole 20 Mg Capsule.Dr) 20 mg PO DAILY@0630 [facility] Last Admin: 04/17/25 05:57 Dose: 20 mg Documented By: MARK Ondansetron HCl (Ondansetron Hcl 4 Mg/2 Ml Vial) 4 mg IVPUSH Q8H PRN PRN Reason: Nausea and Vomiting Last Admin: 04/17/25 12:34 Dose: 4 mg Documented By: IRVING Polyethylene Glycol (Polyethylene Glycol 3350 17 Gm Powd.Pack) 17 gm PO DAILY PRN PRN Reason: Constipation Potassium Chloride (Potassium Chloride Er 20 Meq Tab.Er.Prt) 20 meq PO DAILY [facility] Last Admin: 04/17/25 09:44 Dose: 20 meq Documented By: IRVING Sacubitril/Valsartan (Sacubitril/Valsartan 1 Tab Tablet) 1 tab PO BID [facility]; Protocol On Hold: 04/16/25 08:17 Last Admin: 04/16/25 08:03 Dose: Not Given Documented By: KIRBY Non-Admin Reason: Physician Held Med Senna (Sennosides 8.6 Mg Tablet) 17.2 mg PO BEDTIME [facility] Last Admin: 04/16/25 21:23 Dose: Not Given Documented By: MARK Non-Admin Reason: Patient Refused Sodium Chloride (0.9 % Sodium Chloride Flush 3 Ml Syringe) 3 ml IVFLUSH QSHIFT [facility] Last Admin: 04/17/25 09:41 Dose: 3 ml Documented By: IRVING Sodium Chloride (Sodium Chloride 0.65 % Nasal 44 Ml Sprbtl) 1 spray NOSTRIL-B Q1H PRN PRN Reason: Nasal Congestion Last Admin: 04/15/25 16:00 Dose: 1 spray Documented By: KIRBY Sodium Chloride (Sodium Chloride 0.65 % Nasal 44 Ml Sprbtl) 1 spray NOSTRIL-B Q1H PRN PRN Reason: congestion Spironolactone (Spironolactone 25 Mg Tablet) 25 mg PO DAILY@1200 [facility]; Protocol On Hold: 04/16/25 08:17 Last Admin: 04/15/25 12:44 Dose: 25 mg Documented By: KIRBY Torsemide (Torsemide 20 Mg Tablet) 40 mg PO BID [facility]; Protocol Last Admin: 04/17/25 09:36 Dose: 40 mg Documented By: IRVING Warfarin Sodium (Warfarin Sodium 5 Mg Tablet) 5 mg PO SUWEFR@1800 [facility] On Hold: 04/17/25 08:56 Last Admin: 04/14/25 18:29 Dose: 5 mg Documented By: KIRBY Warfarin Sodium (Warfarin Sodium 7.5 Mg Tablet) 7.5 mg PO MOTUTHSA@1800 [facility] On Hold: 04/16/25 18:00 Zolpidem Tartrate (Zolpidem Tartrate 5 Mg Tablet) 5 mg PO BEDTIME PRN PRN Reason: Insomnia Labs 04/15/25 07:06 04/17/25 09:21 Labs: Laboratory Results - last 24 hr 04/17/25 04/17/25 06:15 09:21 Hold Purple Top SEE NOTE PT 37.7 H D INR 3.3 H Anion Gap 11 L Estim Creat Clear Calc 52.5 Estimated GFR 56 Random Glucose 188 H Calcium 8.9 Magnesium 2.0 B-Natriuretic Peptide 1114 H Assessment and Plan (1) Acute on chronic diastolic CHF (congestive heart failure): Status: Acute Plan d4, 80yo M with HFrEF 20-25%, moderate mitral regurgitation, severe pulmonary HTN, HTN, AF on warfarin, NSVT, QT prolongation, CKD3a, GERD, anemia, prostate CA s/p XRT, hx CVA recent admission for CHF exacerbation admitted for CHF exacerbation, complicated by hypotension, BERNA/CKD3, dysphagia hypotension - suspected from overdiuresis; Entresto, spironolactone, torsemide all held; per Cardiology resume torsemide today acute/chronic HFrEF - stopped IV furosemide due to overdiueresis; PO torsemide per above; BNP has declined appropriately - referral for hospice discussion BERNA/CKD3 - resolved dysphagia - question of stricture; GI consulted; will do barium swallow in AM pAF - currently sinus - continue amiodarone to maintain NSR - warfarin held for INR 3.3 VTE ppx - warfarin dispo - STR In my clinical judgment, the patient requires continued inpatient hospitalization for the following reasons: hypotension, dysphagia workup Quality Stroke Does the patient have a stroke diagnosis?: No Reason for No Anti-thrombotic by Day Two: N/A - Med Ordered VTE Prior VTE?: No VTE Risk Level:: Medical - moderate - high VTE Device Contraindication: N/A - Device Ordered VTE Drug Contraindication: N/A - Med Ordered
--- NOTE | 2025-04-17 16:25 | P.CNGI_ITS ---
History of Present Illness Data of Consult Service Date: 04/17/25 Primary Care Provider: Yonathan Womack MD HPI Reason for consult: dysphagia 80 yr old m w/ hx of CHF with EF 20-25% - moderate MVR, severe pulmonary HTN, AFIB on coumadin, NSVT, Prolonged Qtc, CKD, GERD, Anemia, PNA, Prostate Cancer with radiation, CVA who I am seeing for assessment for dysphagia. Patient was initially admitted with SOB and pleural effusions thought to be due to CHF. He has been seen by cardiology and noted to have multiple hospitalizations with guarded prognosis. Since being diuresed he is feeling better. 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 He has noted worsening swallowing issues with feeling of liquids and solids getting stuck in mid chest area, but denies reflux or water brash. Weight has been stable, he has noted some constipaton which he attributes to diuretics. He never had EGD> He thinks amiodarone may have made swallowing worse. He also notes dry mouth and nausea since being on it. No prior EGD< and last colo 15 yrs ago with polyps noted. Review of Systems 2 Review of Systems: Constitutional : No Weight loss, No Fever, No Chills ENT/Mouth : No sore throat, No Rhinorrhea Eyes: No Swelling, No Redness Cardiovascular : No Chest Pain, + SOB, No Edema Respiratory : + Cough, No Sputum, No Wheezing Gastrointestinal : see HPI Genitourinary : NO Dysuria, No Urinary Frequency, No Hematuria, No Urgency Musculoskeletal : No joint pain, No Myalgias, No Joint Swelling Skin : No Skin Lesions, No rash Neuro : No Weakness, No Numbness, No Dizziness, No Headache Psych : No Anxiety/Panic, No Depression Heme/Lymph: No Bruising, No Lymphadenopathy Endocrine : No Polyuria, No Polydipsia All other systems reviewed and are negative. [facility] Past Medical History Medical History (Updated 04/17/25 @ 12:56 by Jhon Guerrero MD) Prostate cancer Atrial flutter Congestive heart failure CKD (chronic kidney disease) stage 3, GFR 30-59 ml/min Acute on chronic combined systolic and diastolic CHF (congestive heart failure) Orthopnea Anxiety Myocardial infarct, old CHF (congestive heart failure) CVA (cerebral vascular accident) A-fib Surgical History Surgical History History of appendectomy Social History Social History Household Members: None Housing: House Do you presently have visiting nurse or other home services: Yes Alcohol intake: former Patient Tobacco Use Status: Former Tobacco user service: No Current occupational status: disabled Travel History Ebola Risk: Travel/Contact With Anyone From Affected Area/s: No Has Patient Experienced Ebola Symptoms: No Meds Allergies Allergy/AdvReac Type Severity Reaction Status Date / Time adenosine Allergy Severe cardiac, Verified 04/13/25 22:59 elevated BP, Stroke Gadolinium-Containing Allergy Severe red eyes Verified 04/13/25 22:59 Contrast Medi Iodinated Contrast Media Allergy Severe Seizure Verified 04/13/25 22:59 (CONTRAST, IV) carvedilol Allergy Intermediate disorientat Verified 04/13/25 22:59 ion erythromycin base AdvReac Unknown Gut Verified 04/13/25 22:59 pain , Abdominal Pain, GI upset Active Medications: Current Medications Acetaminophen (Acetaminophen 325 Mg Tablet) 650 mg PO Q6H PRN PRN Reason: Pain, Mild 1-3,fever,headache Albuterol/Ipratropium (Albuterol/Iprat 2.5/0.5mg 3 Ml Ampul.Neb) 3 ml INHALE Q4H PRN PRN Reason: Shortness of Breath/Wheezing Amiodarone HCl (Amiodarone Hcl 200 Mg Tablet) 200 mg PO DAILY [facility] Last Admin: 04/17/25 09:36 Dose: 200 mg Atorvastatin Calcium (Atorvastatin Calcium 10 Mg Tablet) 10 mg PO DAILY [facility] Last Admin: 04/17/25 09:36 Dose: 10 mg Calcium Carbonate (Calcium Carbonate 750 Mg Tab.Chew) 750 mg PO Q4H PRN PRN Reason: Heartburn Famotidine (Famotidine/Pf 20 Mg/2 Ml Vial) 20 mg IVPUSH DAILY [facility] Last Admin: 04/17/25 09:36 Dose: 20 mg Lorazepam (Lorazepam 0.5 Mg Tablet) 0.25 mg PO BID PRN PRN Reason: Anxiety Last Admin: 04/16/25 23:33 Dose: 0.25 mg Magnesium Hydroxide (Milk Of Magnesia 30 Ml Oral.Susp) 30 ml PO DAILY PRN PRN Reason: Constipation Last Admin: 04/16/25 13:06 Dose: 30 ml Melatonin (Melatonin 3 Mg Tablet) 6 mg PO BEDTIME PRN PRN Reason: Insomnia Last Admin: 04/16/25 23:35 Dose: 6 mg Nystatin (Nystatin Powder 15 Gm Bottle) 1 appl TOPICAL BID [facility]; Protocol Last Admin: 04/17/25 09:37 Dose: 1 appl Omeprazole (Omeprazole 20 Mg Capsule.Dr) 20 mg PO DAILY@0630 [facility] Last Admin: 04/17/25 05:57 Dose: 20 mg Ondansetron HCl (Ondansetron Hcl 4 Mg/2 Ml Vial) 4 mg IVPUSH Q8H PRN PRN Reason: Nausea and Vomiting Last Admin: 04/17/25 12:34 Dose: 4 mg Polyethylene Glycol (Polyethylene Glycol 3350 17 Gm Powd.Pack) 17 gm PO DAILY PRN PRN Reason: Constipation Potassium Chloride (Potassium Chloride Er 20 Meq Tab.Er.Prt) 20 meq PO DAILY [facility] Last Admin: 04/17/25 09:44 Dose: 20 meq Sacubitril/Valsartan (Sacubitril/Valsartan 1 Tab Tablet) 1 tab PO BID [facility]; Protocol On Hold: 04/16/25 08:17 Last Admin: 04/16/25 08:03 Dose: Not Given Senna (Sennosides 8.6 Mg Tablet) 17.2 mg PO BEDTIME [facility] Last Admin: 04/16/25 21:23 Dose: Not Given Sodium Chloride (0.9 % Sodium Chloride Flush 3 Ml Syringe) [facility] Last Admin: 04/17/25 09:41 Dose: 3 ml Sodium Chloride (Sodium Chloride 0.65 % Nasal 44 Ml Sprbtl) 1 spray NOSTRIL-B Q1H PRN PRN Reason: Nasal Congestion Last Admin: 04/15/25 16:00 Dose: 1 spray Sodium Chloride (Sodium Chloride 0.65 % Nasal 44 Ml Sprbtl) 1 spray NOSTRIL-B Q1H PRN PRN Reason: congestion Spironolactone (Spironolactone 25 Mg Tablet) 25 mg PO DAILY@1200 [facility]; Protocol On Hold: 04/16/25 08:17 Last Admin: 04/15/25 12:44 Dose: 25 mg Torsemide (Torsemide 20 Mg Tablet) 40 mg PO BID [facility]; Protocol Last Admin: 04/17/25 09:36 Dose: 40 mg Warfarin Sodium (Warfarin Sodium 5 Mg Tablet) 5 mg PO SUWEFR@1800 [facility] On Hold: 04/17/25 08:56 Last Admin: 04/14/25 18:29 Dose: 5 mg Warfarin Sodium (Warfarin Sodium 7.5 Mg Tablet) 7.5 mg PO MOTUTHSA@1800 [facility] On Hold: 04/16/25 18:00 Zolpidem Tartrate (Zolpidem Tartrate 5 Mg Tablet) 5 mg PO BEDTIME PRN PRN Reason: Insomnia Home Medications ?Medication ?Instructions ?Recorded ?Confirmed ?Last Taken ?Type omeprazole 20 mg capsule,delayed 20 mg PO DAILY@0630 0 11/14/20 04/14/25 04/13/25 History release coenzyme Q10 100 mg capsule 100 mg PO DAILY 04/14/21 0 04/14/25 04/13/25 History (CoQ-10) simvastatin 20 mg tablet 10 mg PO DAILY 11/19/2403/2304/13/25 History furosemide 20 mg tablet 40 mg PO BID@0700,1400 12/1704/14/25 04/13/25 History spironolactone 25 mg tablet 25 mg PO DAILY@1200 04/14/25 04/13/25 History warfarin 2.5 mg tablet 5 mg PO SUWEFR@1800 04/03/25 04/14/25 03/31/25 History warfarin 2.5 mg tablet 7.5 mg PO MOTUTHSA@1800 03/2204/14/25 04/13/25 History amiodarone 200 mg tablet 200 mg PO BID 04/14/2504/1404/13/25 History Physical Exam 2 Exam: Exam: EXAM: GENERAL: The patient is well developed and nontoxic. VITAL SIGNS:see workflow HEENT: Nonicteric sclerae, PERRLA, EOMI. Oropharynx clear. Moist mucous membranes. Conjunctivae appear well perfused. No thyroid mass. CHEST: Chest wall is nontender. HEART: Regular rate and rhythm without murmurs. LUNGS: Clear to auscultation bilaterally. ABDOMEN: Soft, positive bowel sounds, nontender, no organomegaly.no flank tenderness SKIN: No rash, no excessive bruising, petechiae, or purpura. NEUROLOGIC: Cranial nerves II-XII intact without motor/sensory deficit. Psych: normal affect Vital Signs: Vital Signs: Last Vital Signs Temp 97.4 F 04/17/25 15:40 Pulse 87 04/17/25 15:40 Resp 18 04/17/25 15:40 BP 102/61 04/17/25 15:40 Pulse Ox 97 04/17/25 15:40 O2 Del Method Nasal Cannula 04/17/25 15:40 O2 Flow Rate 2 04/17/25 15:40 BMI result Body Mass Index 26.2 Results Labs 04/15/25 07:06 04/17/25 09:21 Labs: BMP 04/17/25 09:21 Sodium 130 L Potassium 3.4 Chloride 96 Carbon Dioxide 26 BUN 20 H Creatinine 1.25 Calcium 8.9 Microbiology Microbiology Results: Microbiology 04/13/25 23:53 Blood - Venous Blood Culture - Preliminary No growth after 48 hours. 04/13/25 23:39 Blood - Venous Blood Culture - Preliminary No growth after [address] scan - chest: Attestation: I personally reviewed and interpreted this imaging study as follows: My impression: esophgaus lookw normal, cardiomegaly and small pleural effusion right side Assessment and Plan (1) Dysphagia: Qualifiers: Dysphagia type: oropharyngeal phase Qualified Code(s): R13.12 - Dysphagia, oropharyngeal phase Status: Acute Plan 1/ Dysphagia ddx: stricture, neoplasia, gerd related, dysmotility, schatzki ring, hernia PLAN: 1/ increase PPI to 40 mg 2/ Ba swallow with pill study, depending on this will talk to pt of risks of endoscopy vs conservative approach Procedures Date of Service Date of Service: 04/17/25
[2025-04-18] VITALS (7 sets, daily range): BP systolic 98–138; BP diastolic 62–74; PULSE 76–101; RESP 17–20; TEMP 36.1–36.6; O2SAT 95–98
[2025-04-18 07:06] LABS: INTERNATIONAL NORM RATIO 2.6 (0.9-1.1); Prothrombin Time 29.5 SEC (10.9-12.4)
[2025-04-18 07:14] LABS: Anion Gap 12 (12-20); Blood Urea Nitrogen 23 mg/dL (9-16); Calcium 9.2 mg/dL (8.4-10.2); Carbon Dioxide 33 mmol/L (22-29); Chloride 94 mmol/L (96-108); Creatinine Clr Calc Pharmacy 45.6; Estimated Glomerular Filt Rate 47; Magnesium 2.0 mg/dL (1.6-2.6); Potassium 3.9 mmol/L (3.3-5.1); Sodium 135 mmol/L (135-145)
[2025-04-18 07:15] LABS: B Type Natriuretic Peptide 1807 pg/mL (<100)
--- NOTE | 2025-04-18 10:29 | PM.PNCARD ---
Subjective Subjective Date of Service: 04/18/25 Interval history: He states that he is feeling okay. He got torsemide yesterday. I am not clear with the input/output data is accurate but so far, he has negative -4 L. Just looks and feels tired. Review of Systems Review of Systems Yes all other systems are reviewed and are negative Constitutional: Reports as per HPI, Reports no additional constitutional complaints and Reports fatigue Eyes: Reports as per HPI and Denies no additional eye complaints Denies system reviewed and no additional complaints, except as documented and Reports as per HPI Cardiovascular: Reports as per HPI, Reports no additional cardiovascular complaints, Denies acrocyanosis, Denies cool extremities, Denies chest pain, Denies leg edema, Denies lightheadedness, Denies palpitations and Reports dyspnea Respiratory: Reports as per HPI, Denies no additional respiratory complaints and Reports dyspnea Gastrointestinal: Reports as per HPI and Denies no additional gastrointestinal complaints Genitourinary: Reports no additional male genitourinary complaints and Reports as per HPI Musculoskeletal: Reports no additional musculoskeletal complaints and Reports as per HPI Skin/Breast: Reports system reviewed and no additional complaints, except as docu Reports system reviewed and no additional complaints, except as documented and Reports as per HPI Psychiatric: Reports no additional psychiatric complaints and Reports as per HPI Endocrine: Reports no additional endocrine complaints, Reports as per HPI, Reports fatigue and Denies palpitations Hematologic/Lymphatic: Reports no additional hematologic/lymphatic complaints and Reports as per HPI Allergic/Immunologic: Reports no additional allergic/immunologic complaints and Reports as per HPI Physical Exam Vital Signs: Last Vital Signs Temp 97.0 F 04/18/25 07:04 Pulse 76 04/18/25 07:04 Resp 20 04/18/25 07:04 BP 98/62 04/18/25 07:04 Pulse Ox 97 04/18/25 07:04 O2 Del Method Nasal Cannula 04/18/25 07:04 O2 Flow Rate 2 04/18/25 07:04 BMI result Body Mass Index 26.2 Const General: comfortable and no acute distress Orientation/consciousness: patient oriented x3 HEENT Other: Unremarkable Head: Yes normal to inspection Neck Neck: Yes normal visual inspection Chest Chest palpation & inspection: normal inspection of the chest Resp Auscultation: clear to auscultation bilaterally Cardio Palpation: normal PMI Heart sounds: S1 normal heart sound present, S2 normal heart sound present, no gallops, no murmurs and no rubs GI Palpation (GI): Soft to palpation Back/Spine/Pelvis Other: unremarkable Skin General skin exam: no rashes or lesions noted Neuro General: patient oriented x3 Extrem Other: No significant lower extremity swelling. General: Yes normal to inspection Psych Mental Status: mental status grossly normal Objective Labs and Meds 04/15/25 07:06 04/18/25 06:04 Lab results: Laboratory Results - last 24 hr 04/18/25 06:04 PT 29.5 H D INR 2.6 H Sodium 135 Potassium 3.9 Chloride 94 L Carbon Dioxide 33 H Anion Gap 12 BUN 23 H Creatinine 1.44 H Estim Creat Clear Calc 45.6 Estimated GFR 47 Random Glucose 115 Calcium 9.2 Magnesium 2.0 B-Natriuretic Peptide 1807 H Progress Note: A&P Assessment and plan (1) 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 Moderate mitral regurgitation. Pulmonary hypertension with elevated right atrial pressure. Moderate loculated pericardial effusion. Chest CT scan reported to have [id number] right and small left pleural effusions with compressive atelectasis. Findings consistent with fluid overload/edema. Reported trace pericardial effusion. Overall, severe cardiomyopathy with recurring hospitalizations. Previously, he was on Lasix but this hospitalization, we switched him to Torsemide yesterday. He received the diuretic yesterday. However, in spite of it, cardiac BNP actually seems to have gone up. Hence not clear if there is a lag time before effect as the previous day it came down. Blood pressure is borderline and it has been difficult to give him Entresto and spironolactone. We reviewed into ischemic workup and it seems that he has never had cardiac catheterization. Last stress test was around 2017. We discussed about possibility of repeat catheterization but daughter as well as patient are not sure if it is something they would pursue. They are actually looking into a palliative care as well. We did discuss both options and we can pursue what the patient and family wish. With regard to other medications, unable to use Entresto or spironolactone mainly because of low blood pressure issues. He did go into the 80s and got dizzy couple of days ago and all meds had to be held. Previously, did not tolerate Jardiance. Farxiga as an option but I am not clear if he will tolerate that either as he might just get hypotensive. With regard to other medications, keep on amiodarone/warfarin as before. He does have some nausea but I highly doubt if it is medication related. Any case, we did decrease amiodarone dosing this admission. Due to many hospitalizations, difficult to rate congestive heart failure, recurring hypotension with medications, high-risk of decompensation and . Discussed with daughter at the bedside in full detail. Time Spent With Patient Time: Total time managing care of this patient today ____ minutes. Progress Note: Quality Stroke Does the patient have a stroke diagnosis?: No Reason for No Anti-thrombotic by Day Two: N/A - Med Ordered Procedures Date of Service Date of Service: 04/18/25
--- NOTE | 2025-04-18 11:04 | MHC.CM.PN ---
Tentative goal of Patient and Daughter/HCP is STR near [facility] and then likely home to Daughter's home with [facility], pending progress at [facility]. There is some discussion of transfer to [facility] for Cardiac Cath. CM has referred Patient to requested facilities and will continue to follow.
[2025-04-18] MEDS: 0.9 % Sodium Chloride Flush 3 ML SYRINGE IVFLUSH ×3 (11:20→19:44)
[2025-04-18] MEDS: Potassium Chloride ER 20 MEQ TAB.ER.PRT PO (11:25)
--- NOTE | 2025-04-18 12:30 | P.PNIM_ITS ---
Subjective Subjective Date of Service: 04/18/25 Interval History: nausea/gagging overnight dyspnea improving Review of Systems Review of Systems: Yes all other systems are reviewed and are negative Physical Exam 2 Vital Signs: Vital Signs: Last Vital Signs Temp 97.1 F 04/18/25 11:07 Pulse 95 04/18/25 11:24 Resp 20 04/18/25 11:07 BP 123/63 04/18/25 11:24 Pulse Ox 97 04/18/25 11:24 O2 Del Method Room Air 04/18/25 11:07 O2 Flow Rate 2 04/18/25 07:04 BMI result Body Mass Index 26.2 Gen: in no acute distress HEENT: sclera anicteric, moist mucus membranes Neck: supple Lungs: clear to auscultation bilaterally Heart: regular rate and rhythm, no murmurs Abd: soft, non-tender, non-distended Ext: no edema Skin: warm/well-perfused Neuro: alert and oriented x3, no focal findings Psych: appropriate affect Objective Data Active Medications Acetaminophen (Acetaminophen 325 Mg Tablet) 650 mg PO Q6H PRN PRN Reason: Pain, Mild 1-3,fever,headache Albuterol/Ipratropium (Albuterol/Iprat 2.5/0.5mg 3 Ml Ampul.Neb) 3 ml INHALE Q4H PRN PRN Reason: Shortness of Breath/Wheezing Amiodarone HCl (Amiodarone Hcl 200 Mg Tablet) 200 mg PO DAILY [facility] Last Admin: 04/18/25 11:24 Dose: 200 mg Documented By: WILLEM Atorvastatin Calcium (Atorvastatin Calcium 10 Mg Tablet) 10 mg PO DAILY [facility] Last Admin: 04/18/25 11:24 Dose: 10 mg Documented By: WILLEM Benzonatate (Benzonatate 100 Mg Capsule) 200 mg PO TID PRN PRN Reason: Cough Calcium Carbonate (Calcium Carbonate 750 Mg Tab.Chew) 750 mg PO Q4H PRN PRN Reason: Heartburn Famotidine (Famotidine/Pf 20 Mg/2 Ml Vial) 20 mg IVPUSH DAILY [facility] Last Admin: 04/18/25 11:21 Dose: 20 mg Documented By: WILLEM Lorazepam (Lorazepam 0.5 Mg Tablet) 0.25 mg PO BID PRN PRN Reason: Anxiety Last Admin: 04/17/25 22:24 Dose: 0.25 mg Documented By: CHARL[place]TE Magnesium Hydroxide (Milk Of Magnesia 30 Ml Oral.Susp) 30 ml PO DAILY PRN PRN Reason: Constipation Last Admin: 04/16/25 13:06 Dose: 30 ml Documented By: KIRBY Melatonin (Melatonin 3 Mg Tablet) 6 mg PO BEDTIME PRN PRN Reason: Insomnia Last Admin: 04/17/25 22:24 Dose: 6 mg Documented By: [place] Nystatin (Nystatin Powder 15 Gm Bottle) 1 appl TOPICAL BID [facility]; Protocol Last Admin: 04/17/25 20:15 Dose: 1 appl Documented By: CHARLOTTE Omeprazole (Omeprazole 20 Mg Capsule.Dr) 20 mg PO DAILY@0630 [facility] Last Admin: 04/18/25 05:44 Dose: 20 mg Documented By: [place]TE Ondansetron HCl (Ondansetron Hcl 4 Mg/2 Ml Vial) 4 mg IVPUSH Q8H PRN PRN Reason: Nausea and Vomiting Last Admin: 04/17/25 22:18 Dose: 4 mg Documented By: [place]TE Polyethylene Glycol (Polyethylene Glycol 3350 17 Gm Powd.Pack) 17 gm PO DAILY PRN PRN Reason: Constipation Potassium Chloride (Potassium Chloride Er 20 Meq Tab.Er.Prt) 20 meq PO DAILY [facility] Last Admin: 04/18/25 11:25 Dose: 20 meq Documented By: WILLEM Sacubitril/Valsartan (Sacubitril/Valsartan 1 Tab Tablet) 1 tab PO BID [facility]; Protocol On Hold: 04/16/25 08:17 Last Admin: 04/16/25 08:03 Dose: Not Given Documented By: KIRBY Non-Admin Reason: Physician Held Med Senna (Sennosides 8.6 Mg Tablet) 17.2 mg PO BEDTIME [facility] Last Admin: 04/17/25 20:10 Dose: 17.2 mg Documented By: CHARL[place]TE Sodium Chloride (0.9 % Sodium Chloride Flush 3 Ml Syringe) 3 ml IVFLUSH QSHIFT [facility] Last Admin: 04/18/25 11:20 Dose: 3 ml Documented By: WILLEM Sodium Chloride (Sodium Chloride 0.65 % Nasal 44 Ml Sprbtl) 1 spray NOSTRIL-B Q1H PRN PRN Reason: Nasal Congestion Last Admin: 04/15/25 16:00 Dose: 1 spray Documented By: KIRBY Sodium Chloride (Sodium Chloride 0.65 % Nasal 44 Ml Sprbtl) 1 spray NOSTRIL-B Q1H PRN PRN Reason: congestion Spironolactone (Spironolactone 25 Mg Tablet) 25 mg PO DAILY@1200 [facility]; Protocol On Hold: 04/16/25 08:17 Last Admin: 04/15/25 12:44 Dose: 25 mg Documented By: KIRBY Torsemide (Torsemide 20 Mg Tablet) 40 mg PO BID [facility]; Protocol Last Admin: 04/18/25 11:22 Dose: 40 mg Documented By: WILLEM Warfarin Sodium (Warfarin Sodium 5 Mg Tablet) 5 mg PO SUWEFR@1800 [facility] Last Admin: 04/14/25 18:29 Dose: 5 mg Documented By: KIRBY Warfarin Sodium (Warfarin Sodium 7.5 Mg Tablet) 7.5 mg PO MOTUTHSA@1800 [facility] Zolpidem Tartrate (Zolpidem Tartrate 5 Mg Tablet) 5 mg PO BEDTIME PRN PRN Reason: Insomnia Labs 04/15/25 07:06 04/18/25 06:04 Labs: Laboratory Results - last 24 hr 04/18/25 06:04 PT 29.5 H D INR 2.6 H Anion Gap 12 Estim Creat Clear Calc 45.6 Estimated GFR 47 Random Glucose 115 Calcium 9.2 Magnesium 2.0 B-Natriuretic Peptide 1807 H Assessment and Plan (1) Acute on chronic diastolic CHF (congestive heart failure): Status: Acute Plan d5, 80yo M with HFrEF 20-25%, moderate mitral regurgitation, severe pulmonary HTN, HTN, AF on warfarin, NSVT, QT prolongation, CKD3a, GERD, anemia, prostate CA s/p XRT, hx CVA recent admission for CHF exacerbation admitted for CHF exacerbation, complicated by hypotension, BERNA/CKD3, dysphagia hypotension - suspected from overdiuresis; Entresto, spironolactone, torsemide all held; per Cardiology resumed torsemide, change from bid to daily today acute/chronic HFrEF - stopped IV furosemide due to overdiueresis; PO torsemide per above; monitor lytes/BNP/I+O (negative 4L thus far) - referral for hospice discussion - pt has never had ischemic workup, will discuss with Cardiology BERNA/CKD3 - monitor Cr daily dysphagia - question of stricture; GI consulted; barium swallow pending pAF - currently sinus - continue amiodarone to maintain NSR - INR 2.6, continue warfarin VTE ppx - warfarin dispo - STR then to daughter's home In my clinical judgment, the patient requires continued inpatient hospitalization for the following reasons: hypotension, dysphagia workup Total time managing care of this patient today: 45 minutes. Quality Stroke Does the patient have a stroke diagnosis?: No Reason for No Anti-thrombotic by Day Two: N/A - Med Ordered VTE Prior VTE?: No VTE Risk Level:: Medical - moderate - high VTE Device Contraindication: N/A - Device Ordered VTE Drug Contraindication: N/A - Med Ordered
[2025-04-19 04:00] VITALS: BP 93/52; PULSE 78; RESP 17; TEMP 36.9; O2SAT 100
[2025-04-19 07:15] VITALS: BP 111/60; PULSE 75; RESP 20; TEMP 36.3; O2SAT 96
[2025-04-19 07:53] LABS: Anion Gap 14 (12-20); Blood Urea Nitrogen 24 mg/dL (9-16); Calcium 9.3 mg/dL (8.4-10.2); Carbon Dioxide 31 mmol/L (22-29); Chloride 96 mmol/L (96-108); Creatinine Clr Calc Pharmacy 45.3; Estimated Glomerular Filt Rate 47; Magnesium 2.0 mg/dL (1.6-2.6); Potassium 3.9 mmol/L (3.3-5.1); Sodium 137 mmol/L (135-145)
[2025-04-19 08:00] LABS: B Type Natriuretic Peptide 1656 pg/mL (<100); INTERNATIONAL NORM RATIO 2.4 (0.9-1.1); Prothrombin Time 28.1 SEC (10.9-12.4)
[2025-04-19] MEDS: Potassium Chloride ER 20 MEQ TAB.ER.PRT PO (09:43)
[2025-04-19] MEDS: 0.9 % Sodium Chloride Flush 3 ML SYRINGE IVFLUSH ×2 (09:43→14:18)
--- NOTE | 2025-04-19 10:15 | MHC.CM.PN ---
Second IMM given 04/19. Insurance auth received for STR at [facility]. Pt will transport via [facility] today, pt aware and in agreement with discharge plan, pts daughter/HCP Dee updated on discharge plan.
[2025-04-19 11:02] VITALS: BP 101/63; PULSE 83; RESP 20; TEMP 36.2; O2SAT 94
--- NOTE | 2025-04-19 13:42 | P.DS_ITS ---
DS: Providers Provider Date of Service: 04/19/25 Date of admission: 04/14/25 05:39 Date of discharge: 04/19/25 Primary care physician: Yonathan Womack MD Consults: 04/14/25 06:32 Consult to Cardiology Routine Consulting Provider: [facility] Reason for consultation: CHF exacerbation, now int in AICD 04/16/25 15:47 Consult to Pulmonology Routine Consulting Provider: [facility] Reason for consultation: severe pulmonary hypotension 04/17/25 08:57 Consult to Gastroenterology Routine Consulting Provider: Sven Shelton Reason for consultation: pharyngeal/esophageal dysphagia DS: Diagnosis Discharge Diagnosis (1) CHF exacerbation: Status: Acute (2) Paroxysmal atrial fibrillation: Status: Acute (3) Current use of anticoagulant therapy: Status: Acute (4) Dysphagia: Status: Acute (5) Acute on chronic combined systolic and diastolic ACC/AHA stage C congestive heart failure: Status: Acute (6) Acute kidney injury superimposed on stage 3a chronic kidney disease: Status: Acute DS: Summary Hospital Course Hospital Course: From the history and physical by the admitting hospitalist, Brenden Becerra, 04/14/25: Pt is a 80 yo [place] male with PMH HFrEF 20-25% - moderate MVR, severe pulmonary HTN and no pericaridal effusion last echo 04/03/25, HTN, AFIB on coumadin, NSVT, Prolonged Qtc, CKD 3am GERD, Anemia, PNA, Prostate Cancer with radiation, CVA presents to ED vis ambulance with complaints of worsening SOB with dry heaving for a few days. Pt was instructed by his provider outpatient to start taking 80 mgs of lasix in the AM and 40 in the PM but it did not help with pt's symptoms. Pt was hospitalized here recently with new onset AFIB and was discharged 04/10 on amiodorone. Pt states since starting amiodo polly, he has been having more problems with dry mouth, swallowing, loss of appetite and persistent nausea. LFTs are normal. Pt has no hx of having and EGD. Pt denies any falls or injury prior to coming in today. Pt currently not having any chest pain, reports GERD and is requesting omeprazole and pepcid and reports chronic back pain since last discharge as he has not been moving as much. Pt does use oxygen at home via compressor and feels he may now need portable oxygen. Pt states he is willing to have an AICD but could not pursue this due to recent hospitalizations. Work up in the ED included a CT soft tissue of the neck with no finding of mass or obstruction. CXR notes Left retrocardiac patchy opacities with effusion, small. CT chest is pending but reviewed by Attending Dr. Eric and moderate sized pleural effusion is noted. . Pt currently on 2L NC, comfortable with no tachypnea or hypoxia. Pt appears pale but no cyanosis. Pt has no leukocytosis and LA is 1.5. INR 2.8 on coumadin. ECG NSR first degree block ND 254 and pt is on amiodorone for AFIB. MG 1.9. Troponin 58-57. BNP 2145. 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 Pt is affiliated with the [facility] as well. 80yo M with HFrEF 20-25%, moderate mitral regurgitation, severe pulmonary HTN, HTN, AF on warfarin, NSVT, QT prolongation, CKD3a, GERD, anemia, prostate CA s/p XRT, and hx CVA; recurrent recent admissions for CHF exacerbation; this time admitted for CHF exacerbation; hospitalization complicated by hypotension, BERNA/CKD3, and dysphagia. Hospital course by problem: acute/chronic HFrEF - Diuresed with IV furosemide but then became hypotensive, suspected due to overdiuresis; then started on PO torsemide. Overall, net negative 5.4L this admission. Tenuous fluid balance with narrow therapeutic window betweeen volume overload and dry states. Cardiology consulted and followed. Referred for hospice discussion and patient and family will consider this option in the future if he ends up decompensating again. But noted never to have had ischemic workup and may consider pursuing this with his cardiology team at [facility]; again, information provided to patient and family and they will consider after discharge from rehabilitation. hypotension - Suspected from overdiuresis; Entresto, spironolactone, torsemide all held; resumed torsemide and then spironolactone; continue to hold Entresto for now but add back if blood pressure tolerates; should see his distribution tech within 1-2 weeks. BERNA/CKD3 - Cr 1.16-1.45 this admission and should be rechecked in 1 week. dysphagia - Question of stricture for which GI consulted. Barium swallow showed no obstruction but compression by a dilated left atrium. Not correctable surgically. Should chew food well, alternate with sips of liquid consistently, eat well-moistened food, and maintain upright positioning for 90 minutes after PO intake. Zofran prescribed as this seems to help him. pAF - Currently sinus; continue amiodarone to maintain NSR but decreased dose to 200 mg once daily. INR 2.4 today; resumed warfarin. [place] [facility]. Time Attestation Discharge Coordination Time (in mins): 55 Quality: Safe Use of Opioids Does Pt have an Active Cancer Diagnosis on the Problem List?: No Quality: Stroke Does the patient have a stroke diagnosis?: No Physical Exam Vital Signs: Vital Signs: Last Vital Signs Temp 97.2 F 04/19/25 11:02 Pulse 83 04/19/25 11:02 Resp 20 04/19/25 11:02 BP 101/63 04/19/25 11:02 Pulse Ox 94 04/19/25 11:02 O2 Del Method Room Air 04/19/25 11:02 O2 Flow Rate 2 04/19/25 04:00 BMI result Body Mass Index 26.2 Gen: in no acute distress HEENT: sclera anicteric, moist mucus membranes Neck: supple Lungs: clear to auscultation bilaterally Heart: regular rate and rhythm, no murmurs Abd: soft, non-tender, non-distended Ext: no edema Skin: warm/well-perfused Neuro: alert and oriented x3, no focal findings Psych: appropriate affect DS: Data Data Completed and Pending Completed studies during hospitalization [Text1]: Laboratory Results WBC 6.8 X10*3/uL (4.8-10.8) 04/15/25 07:06 RBC 4.06 X10*6/uL (4.60-5.80) L 04/15/25 07:06 Hgb 12.5 g/dl (14.0-18.0) L 04/15/25 07:06 Hct 35.8 % (42.0-52.0) L 04/15/25 07:06 MCV 88.2 fL (80.0-98.0) 04/15/25 07:06 MCH 30.8 pg (27.0-33.0) 04/15/25 07:06 MCHC 34.9 g/dl (31.0-36.0) 04/15/25 07:06 RDW 14.1 % (11.0-16.0) 04/15/25 07:06 Plt Count 144 X10*3/uL (160-400) L 04/15/25 07:06 MPV 11.0 fL (9.4-12.4) 04/15/25 07:06 Immature Gran % (Auto) 0.6 % (0.0-0.4) H 04/15/25 07:06 Neut % (Auto) 63.0 % (45-73) 04/15/25 07:06 Lymph % (Auto) 26.2 % (20-40) 04/15/25 07:06 Allen % (Auto) 8.6 % (2-11) 04/15/25 07:06 Eos % (Auto) 1.0 % (0-4) 04/15/25 07:06 Baso % (Auto) 0.6 % (0-2) 04/15/25 07:06 Lymph # (Auto) 1.8 X10*3/uL (1.2-4.9) 04/15/25 07:06 Allen # (Auto) 0.6 X10*3/uL (0.1-1.2) 04/15/25 07:06 Eos # (Auto) 0.1 X10*3/uL (0.0-0.4) 04/15/25 07:06 Baso # (Auto) 0.0 X10*3/uL (0.0-0.2) 04/15/25 07:06 Abs Immat Gran (auto) 0.04 X10*3/uL (0.00-0.03) H 04/15/25 07:06 Absolute Neuts (auto) 4.3 x10*3/uL (2.0-8.3) 04/15/25 07:06 Absolute Nucleated RBC 0.000 X10*3/uL (0.0-0.012) 04/15/25 07:06 Nucleated RBC % (auto) 0.0 /100WBC (0.0-0.2) 04/15/25 07:06 Hold Purple Top SEE NOTE 04/17/25 06:15 PT 28.1 SEC (10.9-12.4) H 04/19/25 06:57 INR 2.4 (0.9-1.1) H 04/19/25 06:57 VBG pH 7.46 (7.32-7.43) H 04/14/25 10:32 VBG pCO2 35 mmHg 04/14/25 10:32 VBG pO2 54 mmHg 04/14/25 10:32 VBG HCO3 25 mmol/L (22-26) 04/14/25 10:32 VBG O2 Saturation 82.0 % 04/14/25 10:32 VBG Base Excess 2.1 mmol/L 04/14/25 10:32 Sodium 137 mmol/L (135-145) 04/19/25 06:57 Potassium 3.9 mmol/L (3.3-5.1) 04/19/25 06:57 Chloride 96 mmol/L (96-108) 04/19/25 06:57 Carbon Dioxide 31 mmol/L (22-29) H 04/19/25 06:57 Anion Gap 14 (12-20) 04/19/25 06:57 BUN 24 mg/dL (9-16) H 04/19/25 06:57 Creatinine 1.45 mg/dL (0.5-1.4) H 04/19/25 06:57 Estim Creat Clear Calc 45.3 04/19/25 06:57 Estimated GFR 47 04/19/25 06:57 Random Glucose 119 mg/dL (60-115) H 04/19/25 06:57 Fasting Glucose 134 mg/dL (60-99) H 04/13/25 23:36 Lactic Acid 1.5 mmol/L (0.5-2.0) 04/13/25 23:39 Calcium 9.3 mg/dL (8.4-10.2) 04/19/25 06:57 Magnesium 2.0 mg/dL (1.6-2.6) 04/19/25 06:57 Iron 50 mcg/dL (45-160) 04/15/25 07:06 TIBC 228 mcg/dL (228-428) 04/15/25 07:06 % Saturation 22 % (15-50) 04/15/25 07:06 Unsat Iron Binding 178 ug/dL 04/15/25 07:06 Total Bilirubin 1.1 mg/dL (0.0-1.0) H 04/13/25 23:36 AST 28 U/L (5-37) 04/13/25 23:36 ALT 19 U/L (0-40) 04/13/25 23:36 Alkaline Phosphatase 75 U/L (39-117) 04/13/25 23:36 Troponin I High Sens 57.3 ng/L (<3.5-35.0) H 04/14/25 01:51 B-Natriuretic Peptide 1656 pg/mL (<100) H 04/19/25 06:57 Total Protein 6.6 g/dL (6.5-8.0) 04/13/25 23:36 Albumin 4.2 g/dL (3.5-5.0) 04/13/25 23:36 TSH 1.49 uIU/mL (0.32-4.0) 04/13/25 23:36 Free T4 1.34 ng/dL (0.71-1.85) 04/13/25 23:36 Hold Yellow Top See Note 04/14/25 18:55 COVID-19 (SNOW) Negative (Negative) 04/13/25 23:39 COVID-19 Clin Com See Note 04/13/25 23:39 Impressions Barium Swallow X-Ray 04/18/25 10:30 IMPRESSION: Dilated mid esophagus and tapered narrowing of distal esophagus likely secondary to enlarged left atrium. No obstructive etiology seen. The GE junction is otherwise widely patent. The barium tablet initially got stuck in the valleculae but cleared with subsequent swallowing of water. Electronically signed by: Brennan Mcginnis MD 04/18/2025 02:17 PM EDT Discharge Plan Discharge Anticipated Discharge Date/Time: 04/19/25 13:32 Patient Disposition: Xfer SNF Discharge Diagnosis: atrial fibrillation congestive heart failure dysphagia Referrals: [facility] [Outside] - 1 Week [facility] [Outside] - 2 Weeks Referral Note: consider ischemic workup Yonathan Womack MD [Primary Care Provider, Medical] - 1 Week Discharge Medications: New torsemide 20 mg Tablet 40 mg PO DAILY Qty: 30 0RF Protocol: Hold for SBP< HOLD for SBP < : 90 amiodarone 200 mg Tablet 200 mg PO DAILY Qty: 30 0RF ondansetron 4 mg Tablet,Disintegrating 4 mg translingual Q6H PRN (Reason: Nausea And Vomiting) Qty: 30 0RF Continued coenzyme Q10 [CoQ-10] 100 mg Capsule 100 mg PO DAILY warfarin 2.5 mg Tablet 7.5 mg PO MOTUTHSA@1800 Protocol: Dose Management Condition: Tuesday (Week One) Dose/Route: 0 mg Instruction: 0 tablets Condition: Tuesday Dose/Route: 7.5 mg Instruction: 3 x 2.5 mg tablets Condition: Tuesday Dose/Route: 7.5 mg Instruction: 3 x 2.5 mg tablets Condition: Tuesday Dose/Route: 5 mg Instruction: 2 x 2.5 mg tablets Condition: Dose/Route: 7.5 mg Instruction: 3 x 2.5 mg tablets Condition: Tuesday Dose/Route: 5 mg Instruction: 2 x 2.5 mg tablets Condition: Tuesday Dose/Route: 7.5 mg Instruction: 3 x 2.5 mg tablets Condition: Tuesday ( Two) Dose/Route: 5 mg Instruction: 2 x 2.5 mg tablets Condition: Tuesday Dose/Route: 7.5 mg Instruction: 3 x 2.5 mg tablets Condition: Tuesday Dose/Route: 7.5 mg Instruction: 3 x 2.5 mg tablets Condition: Tuesday Dose/Route: 5 mg Instruction: 2 x 2.5 mg tablets Condition: Dose/Route: 7.5 mg Instruction: 3 x 2.5 mg tablets Condition: Tuesday Dose/Route: 5 mg Instruction: 2 x 2.5 mg tablets Condition: Tuesday Dose/Route: 7.5 mg Instruction: 3 x 2.5 mg tablets Protocol Text: Adjustment Start Date: 04/11/25 INR Value: 2.3 INR Date: 04/11/25 Recheck Date: 04/15/25 Additional Instructions: REVIEW FOOD LIST WEEKLY - KEEP UP WEEKLY GREENS THE AMIODARONE YOU ARE ON CAN RAISE THE INR SIGNIFICANTLY. YOUR WARFARIN DOSE IS GOING TO BE DECREASED warfarin 2.5 mg Tablet 5 mg PO SUWEFR@1800 Protocol: Dose Management Condition: Tuesday (Week One) Dose/Route: 0 mg Instruction: 0 tablets Condition: Tuesday Dose/Route: 7.5 mg Instruction: 3 x 2.5 mg tablets Condition: Tuesday Dose/Route: 7.5 mg Instruction: 3 x 2.5 mg tablets Condition: Tuesday Dose/Route: 5 mg Instruction: 2 x 2.5 mg tablets Condition: Dose/Route: 7.5 mg Instruction: 3 x 2.5 mg tablets Condition: Tuesday Dose/Route: 5 mg Instruction: 2 x 2.5 mg tablets Condition: Tuesday Dose/Route: 7.5 mg Instruction: 3 x 2.5 mg tablets Condition: Tuesday (Week Two) Dose/Route: 5 mg Instruction: 2 x 2.5 mg tablets Condition: Tuesday Dose/Route: 7.5 mg Instruction: 3 x 2.5 mg tablets Condition: Tuesday Dose/Route: 7.5 mg Instruction: 3 x 2.5 mg tablets Condition: Tuesday Dose/Route: 5 mg Instruction: 2 x 2.5 mg tablets Condition: Dose/Route: 7.5 mg Instruction: 3 x 2.5 mg tablets Condition: Tuesday Dose/Route: 5 mg Instruction: 2 x 2.5 mg tablets Condition: Tuesday Dose/Route: 7.5 mg Instruction: 3 x 2.5 mg tablets Protocol Text: Adjustment Start Date: 04/11/25 INR Value: 2.3 INR Date: 04/11/25 Recheck Date: 04/15/25 Additional Instructions: REVIEW FOOD LIST WEEKLY - KEEP UP WEEKLY GREENS THE AMIODARONE YOU ARE ON CAN RAISE THE INR SIGNIFICANTLY. YOUR WARFARIN DOSE IS GOING TO BE DECREASED zolpidem [Ambien] 5 mg tablet 5 mg PO BEDTIME PRN (Reason: insomnia) Qty: 14 0RF lorazepam 0.5 mg Tablet 0.25 mg PO BID PRN (Reason: Anxiety) Qty: 20 0RF omeprazole 20 mg capsule,delayed release(DR/EC) 20 mg PO DAILY@0630 simvastatin 20 mg tablet 10 mg PO DAILY spironolactone 25 mg tablet 25 mg PO DAILY@1200 Discontinued sacubitril-valsartan [Entresto] 24-26 mg tablet 1 tab PO BID Qty: 60 0RF amiodarone 200 mg tablet 200 mg PO BID furosemide 20 mg tablet 40 mg PO BID@0700,1400 Patient Comments: DOSE INCREAESED Discharge Orders: Discharge Order (Routine); Ordered 04/19/25 Ordered By: Chuck Rosa Diet: Advance to usual diet Activity on Discharge: As tolerated Stand Alone Forms: Patient Portal Discharge page Print Language: Marshallese Other Ambulatory Orders: Basic Metabolic Panel (Routine) Timeframe: 1 Week Facility: [facility] - Location: Laboratory Ordered By: Chuck Rosa Care Plan Goals: cardiac health Health Concerns: atrial fibrillation congestive heart failure dysphagia Plan of Treatment: short-term rehabilitation amiodarone 200 mg once daily change diuretic to torsemide 40 mg once daily resume spironolactone 25 mg once daily HOLD Entresto for now Please follow up with your primary care doctor within 1 week. Return to the hospital if you experience recurrent or worsening symptoms. follow up with your distribution tech after discharge from rehabilitation; consider cardiac catheterization for dysphagia, chew food well, alternate with sips of liquid consistently, eat well-moistened food, maintain upright positioning for 90 minutes after PO intake. take ondansetron as needed for nausea Please follow up with your primary care doctor within 1 week of discharge from rehabilitation. Return to the hospital if you experience recurrent or worsening symptoms. Assessment: See Discharge Summary.
== END 2025-04-19 14:57 | disposition skilled nursing facility (03) | DRG 291 ==
LOC: HO.ED 04-14 03:52 → HO.EDOVER 04-14 05:43 → HO.IMC 04-14 07:54
PROVIDERS: Hospitalist; Nurse Practitioner Acute Care; Nurse Practitioner Family; Physician Assistant Medical; Admitting Provider Internal Medicine; Emergency Provider Emergency Medicine; PCP Internal Medicine; Visit Provider Family Medicine
DX: I13.0 Hypertensive heart and chronic kidney disease with heart failure and stage 1 through stage 4 chronic kidney disease, or unspecified chronic kidney disease (principal); I50.23 Acute on chronic systolic (congestive) heart failure; J98.11 Atelectasis; N17.9 Acute kidney failure, unspecified; I47.20 Ventricular tachycardia, unspecified; Z66 Do not resuscitate; I34.0 Nonrheumatic mitral (valve) insufficiency; N18.31 Chronic kidney disease, stage 3a; I27.22 Pulmonary hypertension due to left heart disease; K59.00 Constipation, unspecified; R13.10 Dysphagia, unspecified; I95.9 Hypotension, unspecified; R94.31 Abnormal electrocardiogram [ECG] [EKG]; E78.5 Hyperlipidemia, unspecified; K21.9 Gastro-esophageal reflux disease without esophagitis; I44.0 Atrioventricular block, first degree; Z20.822 Contact with and (suspected) exposure to COVID-19; Z85.46 Personal history of malignant neoplasm of prostate; Z87.891 Personal history of nicotine dependence; Z79.01 Long term (current) use of anticoagulants; Z79.899 Other long term (current) drug therapy
CPT/HCPCS: 36415; 70490; 71046; 71250; 74220; 80048; 80053; 82803; 83540; 83605; 83735; 83880; 84439; 84443; 84484; 85025; 85610; 87040; 87635; 92526; 92610; 93005; 97110; 97161; 99285; J0456; J0696; J1271; J1308; J1938; J2405; J2470; J3475

== ENCOUNTER → 2025-04-13 23:01 | Outpatient (BNV) | payer MEDICARE, MEDICAID, SELFPAY | PROVIDERS: Admitting Provider Internal Medicine; Emergency Provider Emergency Medicine; Visit Provider Internal Medicine | DX: I44.0 Atrioventricular block, first degree (principal); I49.1 Atrial premature depolarization; I45.4 Nonspecific intraventricular block | CPT/HCPCS: 93010 ==

== ENCOUNTER → 2025-04-14 00:29 | Outpatient (BNV) | payer MEDICARE, MEDICAID, SELFPAY | PROVIDERS: Emergency Provider Emergency Medicine; Visit Provider Radiology Neuroradiology | DX: R13.10 Dysphagia, unspecified (principal); J90 Pleural effusion, not elsewhere classified; J98.11 Atelectasis; I51.7 Cardiomegaly | CPT/HCPCS: 70490; 71250 ==

== ENCOUNTER 2025-04-14 05:39 | Outpatient (BNV) | payer MEDICARE, MEDICAID, SELFPAY | END 2025-04-18 10:30 | PROVIDERS: Admitting Provider Internal Medicine; Emergency Provider Emergency Medicine; PCP Internal Medicine; Visit Provider Radiology Diagnostic Radiology | DX: R13.10 Dysphagia, unspecified (principal) | CPT/HCPCS: 74220 ==

== ENCOUNTER → 2025-04-14 05:39 | Outpatient (BNV) | payer MEDICARE, MEDICAID, SELFPAY | PROVIDERS: Admitting Provider Internal Medicine; Emergency Provider Emergency Medicine; PCP Internal Medicine; Visit Provider Internal Medicine Pulmonary Disease | DX: I50.43 Acute on chronic combined systolic (congestive) and diastolic (congestive) heart failure (principal); I27.20 Pulmonary hypertension, unspecified; R09.02 Hypoxemia | CPT/HCPCS: 99222 ==

== ENCOUNTER → 2025-04-14 05:39 | Outpatient (BNV) | payer MEDICARE, MEDICAID, SELFPAY | PROVIDERS: Admitting Provider Internal Medicine; Emergency Provider Emergency Medicine; Visit Provider Hospitalist | DX: I50.33 Acute on chronic diastolic (congestive) heart failure (principal) | CPT/HCPCS: 99232 ==

== ENCOUNTER → 2025-04-14 05:39 | Outpatient (BNV) | payer MEDICARE, MEDICAID, SELFPAY | PROVIDERS: Admitting Provider Internal Medicine; Emergency Provider Emergency Medicine; Visit Provider Internal Medicine | DX: I50.43 Acute on chronic combined systolic (congestive) and diastolic (congestive) heart failure (principal); I48.0 Paroxysmal atrial fibrillation | CPT/HCPCS: 99233 ==

== ENCOUNTER → 2025-04-14 05:39 | Outpatient (BNV) | payer MEDICARE, MEDICAID, SELFPAY | PROVIDERS: Admitting Provider Internal Medicine; Emergency Provider Emergency Medicine; PCP Internal Medicine; Visit Provider Internal Medicine Gastroenterology | DX: R13.12 Dysphagia, oropharyngeal phase (principal) | CPT/HCPCS: 99223 ==

== ENCOUNTER 2025-04-19 23:04 | Emergency (ER) | payer MEDICARE, MEDICAID, SELFPAY ==
--- OUTSIDE RECORDS SUMMARY | 2025-04-02 05:15 | XMS_ITS ---
Author Organization Yonathan Womack MD Address [address] [place] [id number] Care Team Providers Care Trimmer Climber Name Role Phone Shanta Yonathan Primary Care Provider [phone] Allergies Allergen (clinical drug ingredient) Drug/Non Drug Allergy documented on EMR Reaction Allergy Type Onset Date Status Adedison (uncoded) Elevated BP Allergy Active erythromycin Erythromyicin (uncoded) GI Upset Allergy Active erythromycin Ilisone (uncoded) GI Upset Allergy Active IVPDye (uncoded) Convulsion Allergy Ac tive gadolinium (uncoded) red eues Allergy Active Reason For Referral Reason Reflux esophagitis Diagnosis 1 Reflux esophagitis ( K21.00) Referral Organization Yonathan Womack MD Referring Provider First Name Yonathan Referring Provider Last Name Shanta Referring Provider Speciality Internal M edicine Referred Provider Gary Hughes Referred Provider Specialty Gastroentero logy General Notes Otiila Nova 0 04/02/2025 10:05:06 AM >info faxed, Otilia Nova 04/18/2025 03:28:29 PM > was told patient is aware of appt Referral Priority Routine Referral Appointment Date 05/07/2025 REASON FOR VISIT 2 MO F/U Medications Medication SIG (Take, Route, Frequency, Duration) Notes Start Date End Date Status Metoprolol Succinate 25 MG 1 capsule Ora lly Once a day Active Tylenol Extra Strength 500 MG 1/2 tablet Orally every 6 hrs Not-Taking Spironolactone 25 MG 1 tablet Orally Active Imodium A-D 2 MG 1 tablet as needed Orally Four times a day Not-Taking Triamcinolone Acetonide 0.5 % 1 application to affected area Externally Twice a day for 30 days 10/03/2014 Not-Taking Omeprazole 20 MG TAKE 1 TABLET BY CASSIUS TH EVERY DAY Active Entresto 24-26 MG 1 tablet Orally Twic e a day Active Furosemide 20 MG 2 tabs twice a day Orally twice a day Active Warfarin Sodium 2.5 MG TAKE 3 TABLETS BY MOUTH 6 DAYS A WEEK AND 2 TABLETS BY MOUTH 1 DAY A WEEK Active Ondansetron 4 MG 1 tablet on the tong ue and allow to dissolve Orally twice a day for 5 days 12/17/2024 Active Simvastatin 40 MG TAKE 1/2 TABLET BY MOUTH EVERY EVENING Active Triamcinolone Acetonide 0.1 % 1 application Externally Once a day for 30 days 07/23/2021 Active FreeStyle Lancets - USE TO CHECK BLOOD SUGAR ONCE A DAY for 90 Active FreeStyle Lite Test - TEST BLOOD SUGAR O NCE EVERY DAY for 50 Active Co Q 10 100 MG 1 capsule with a indy l Orally Once a day for 30 day(s) Active LORazepam 0.5 MG TAKE 1 TABLET BY CASSIUS TH EVERY DAY NEEDED Orally Once a day for 90 days 04/02/2025 Active Nitrostat 0.4 MG as directed Sublingu al every 5 mins times 3 for 30 days 11/30/2016 Not-Taking Problems Problem Type SNOMED Code ICD Code Onset Dates Problem Status W/U Status Risk Notes Problem Atrial fibrillation (disorder) (46573580) Afib (I48.91) Active confirmed Problem Reflux esophagitis (399941336) Reflux esophagitis (K21.00) Active confirmed Vital Signs Blood pressure systolic 98 mm Hg 04/02/20 25 Blood pressure diastolic 52 mm Hg 025 Height 69 in 04/02/2025 Weight 197 lbs 04/02/2025 BMI 29.09 kg/m2 04/02/2025 Encounters Encounter Location Date Provider Diagnosis Yonathan Womack MD [address] [place], [place] [phone] 04/02/2025 Yonathan Womack Anticoagulant long-term use Z79.01 ; Acute on chronic systolic (congestive) heart failure I50.23 ; Afib I48.91 ; Anxiety F41.9 and Reflux esophagitis K21.00 Assessments Encounter Date Diagnosis (ICD Code) Assessment Notes Treatment Notes Treatment Clinical Notes Section Notes 04/02/2025 Anticoagulant long-term use (ICD-10 - Z79.01) having no problems 04/02/2025 Acute on chronic systolic (congestive) heart failure (ICD-10 - I50.23) stable at present 04/02/2025 Afib (ICD-10 - I48.91) was recently in [facility] need discharge summary/ calld for records 04/02/2025 Anxiety (ICD-10 - F41.9) 04/02/2025 Reflux esophagitis (ICD-10 - K21.00) referral to [place] [facility] [place] Plan Of Treatment Medication Medication Name Sig Start Date Stop Date Notes Metoprolol Succinate 25 MG 1 capsule Orally Once a day Spironolactone 25 MG 1 tablet Orally Omeprazole 20 MG TAKE 1 TABLET BY CASSIUS TH EVERY DAY Entresto 24-26 MG 1 tablet Orally Twice a day Furosemide 20 MG 2 tabs twice a day O rally twice a day Warfarin Sodium 2.5 MG TAKE 3 TABLETS BY MOUTH 6 DAYS A WEEK AND 2 TABLETS BY MOUTH 1 DAY A WEEK LORazepam 0.5 MG TAKE 1 TABLET BY CASSIUS TH EVERY DAY NEEDED Orally Once a day for 90 days 04/02/2025 Treatment Notes Assessment Notes Anticoagulant long-term use having no pr oblems Acute on chronic systolic (c ongestive) heart failure stable at present Afib was recently in [facility] need discharge summary/ cal[place] for records Reflux esophagitis referral to gast[facility] [place] [facility] [place] Referrals Referral Date Details 04/02/2025 04/02/2025, Reflux Gary quintero Next Appt Details Follow Up: 2 Months, Reason: Provider Name:Yonathan mendoza, 06/06/2025 10:00:00 AM, [address], [address], [place], [place], [phone], Provider Name:Yonathan Pan ier, 09/17/2025 07:45:00 AM, [address], [address], [place], [place], [phone], Provider Name:Yonathan Pan ier, 09/24/2025 01:00:00 PM, [address], [address], [place], [place], [phone], Progress Notes * STEVEN NUNEZDOB: [birth year] (80 yo M)Acc No.[id number]:04/02/2025 Progress Notes Patient: STEVEN SOSA Provider: Kyara Womack MD :1945 A ge:80 Y S ex:Male Date:04/02/2025 Address:[address] [place] [address] Subjective: * Chief Complaints: * 2 MO F/U * HPI: S ymptom(s): patient is a 80 yo male here for 2 month follow up visit/ had been in hospital last week. having fast afib. they told him if it goes too fast to take an ativan and extra metoprolol. * ROS: G eneral/Constitutional: Denies C hills. D enies F atigue. D enies F ever. D enies H eadache. E NT: Denies S ore throat. R espiratory: Denies C ough. D enies S hortness of breath at rest. D enies S hortness of breath with exertion. G astrointestinal: Denies D iarrhea. A dmits D ifficulty swallowing.?Admits H eartburn. A dmits N ausea. * Medical History: * Surgical [...] TO CHECK BLOOD SUGAR ONCE A DAY Ondansetron 4 MG Tablet Disintegrating 1 tablet on the tongue and allow to dissolve Orally twice a day Metoprolol Succinate 25 MG Capsule ER 24 Hour Sprinkle 1 capsule Orally Once a day LORazepam 0.5 MG Tablet TAKE 1 TABLET BY MOUTH EVERY DAY NEEDED Orally Once a day Entresto 24-26 MG Tablet 1 tablet Orally Twice a day Warfarin Sodium 2.5 MG Tablet TAKE 3 TABLETS BY MOUTH 6 DAYS A WEEK AND 2 TABLETS BY MOUTH 1 DAY A WEEK Furosemide 20 MG Tablet 2 tabs twice a day Orally twice a day Omeprazole 20 MG Capsule Delayed Release TAKE 1 TABLET BY MOUTH EVERY DAY Spironolactone 25 MG Tablet 1 tablet Orally Taking Co Q 10 100 MG Capsule [...] CHECK BLOOD SUGAR ONCE A DAY Taking Ondansetron 4 MG Tablet Disintegrating 1 tablet on the tongue and allow to dissolve Orally twice a day Taking Metoprolol Succinate 25 MG Capsule ER 24 Hour Sprinkle 1 capsule Orally Once a day Taking LORazepam 0.5 MG Tablet TAKE 1 TABLET BY MOUTH EVERY DAY NEEDED Orally Once a day Taking Entresto 24-26 MG Tablet 1 tablet Orally Twice a day Taking Warfarin Sodium 2.5 MG Tablet TAKE 3 TABLETS BY MOUTH 6 DAYS A WEEK AND 2 TABLETS BY MOUTH 1 DAY A WEEK Taking Furosemide 20 MG Tablet 2 tabs twice a day Orally twice a day Taking Omeprazole 20 MG Capsule Delayed Release TAKE 1 TABLET BY MOUTH EVERY DAY Taking Spironolactone 25 MG Tablet 1 tablet Orally Not-Taking/PRNTylenol Extra Strength 500 MG Tablet 1/2 tablet [...] Objective: * Vitals: H t: 69, Wt: 197, BMI:29.09, BP:98/52, Wt-k.36. * Examination: G eneral Examination: GENERAL APPEARANCE: a lert, well hydrated, in no distress.? HEAD: n ormocephalic. SKIN: g ood turgor. HEART: i rregularly irregular rhythm. LUNGS: c lear to auscultation bilaterally, good air movement. EXTREMITIES: n o edema. Assessment: * Assessment: 1. A nticoagulant long-term use - Z79.01 (Primary) 2 . A cute on chronic systolic (congestive) heart failure - I50.23 3 . A fib - I48.91 4 . A nxiety - F41.9 5 . R eflux esophagitis - K21.00 Plan: * Treatment: 2. A cute on chronic systolic (congestive) heart failure Continue Entresto Tablet, 24-26 MG, 1 tablet, Orally, Twice a day; C ontinue Furosemide Tablet, 20 MG, 2 tabs twice a day, Orally, twice a day; C ontinue Spironolactone Tablet, 25 MG, 1 tablet, Orally. Notes: stable at present 3. A fib Continue Metoprolol Succinate Capsule ER 24 Hour Sprinkle, 25 MG, 1 capsule, Orally, Once a day.? Notes: was recently in [facility] need discharge summary/ calld for records 4. A nxiety Refill LORazepam Tablet, 0.5 MG, TAKE 1 TABLET BY MOUTH EVERY DAY NEEDED, Orally, Once a day, 90 days, 50, Refills 3. 5. R eflux esophagitis Continue Omeprazole Capsule Delayed Release, 20 MG, TAKE 1 TABLET BY MOUTH EVERY DAY. Notes: referral to [place] [place] [facility] [place] Referral To:[facility] Reason:Reflux esophagitis * Procedure Codes: * Follow Up: 2 Months * * Sign off status: Completed true * Provider: Kyara Womack MD Date: 04/02/2025 Generated for Douglas whitehead/Galina/eTransmitting on: 04/20/2025 03:53 AM EDT History and Physical Notes * HPI (History of Present Illness) Category Sub-Category Detail Notes Category Not es Symptom(s) patient is a 80 yo male here for 2 month follow up visit/ had been in hospital last week. having fast afib. they told him if it goes too fast to take an ativan and extra metoprolol Examination Category Sub-Category Detail Notes Category Not es General Examination GENERAL APPEARANCE: alert, w ell hydrated, in no distress HEAD: normocephalic HEART: irregularly irregula r rhythm LUNGS: clear to auscultatio n bilaterally, good air movement SKIN: good turgor EXTREMITIES: no edema Consultation Request Notes Referral Date Referring Provider Referred Provider Not es 04/02/2025 Yonathan Womack Robert Reflux eso phagitis
--- OUTSIDE RECORDS SUMMARY | 2025-04-04 04:59 | XMS_ITS ---
Author Organization Yonathan Womack MD Address [address] [place] [phone] Care Team Providers Care Mail Service Coordinator Name Role Phone Yonathan Womack Primary Care Provider REASON FOR VISIT Needs CXR oder for repeat in 2 weeks Encounters Encounter Location Date Provider Diagnosis Yonathan Womack MD [address] [facility] [address] [place] [phone] 04/04/2025 Yonathan Womack Shortness of breath R06.02 Assessments Encounter Date Diagnosis (ICD Code) Assessment Notes Treatment Notes Treatment Clinical Notes Section Notes 04/04/2025 Shortness of breath (ICD-10 - R06.02) Order made and mailed to the patient to be done in 2 weeks Plan Of Treatment Treatment Notes Assessment Notes Shortness of breath Order made and rosalia d to the patient to be done in 2 weeks Pending Test Test Name Order Date XR chest 2V 04/04/2025 Next Appt Details Provider Name:Yonathan Pan ier, 06/06/2025 10:00:00 AM, [facility], [address] [place] [address], [phone], Provider Name:Yonathan Pan ier, 09/17/2025 07:45:00 AM, [address], [address], [place], [phone], Provider Name:Yonathan Pan ier, 09/24/2025 01:00:00 PM, [address], [address], [place], [phone], Progress Notes * STEVEN NUNEZDOB: [birth year] (80 yo M)Acc No.[id number]:04/04/2025 Patient: STEVEN SOSA :1945 A ge:80 Y S ex:Male Address:[address] [place] [address], [phone] Subjective: * Chief Complaints: * N eeds CXR oder for repeat in 2 weeks * Medical History: * Surgical History: * Hospitalization/Major Diagno stic Procedure: * Medications: Objective: * Vitals: * Physical Examination: Assessment: * Assessment: 1. S hortness of breath - R06.02 Plan: * Treatment: * Procedure Codes: * true * Date: Generated for Douglas whitehead/Galina/Madyitting on: 0 04/20/2025 03:53 AM EDT
--- OUTSIDE RECORDS SUMMARY | 2025-04-08 11:22 | XMS_ITS ---
Author Organization Yonathan Womack MD Address [address] [place] [phone] Care Team Providers Care Guest Advisor Name Role Phone Yonathan Womack Primary Care Provider [phone] REASON FOR VISIT Discharge summary rec'd Encounters Encounter Location Date Provider Diagnosis Yonathan Womack MD [address] [facility] [address] [place] [phone] 04/08/2025 Yonathan Womack Plan Of Treatment Next Appt Details Provider Name:Yonathan mendoza, 06/06/2025 10:00:00 AM, [address] [place] [address], [address] [place] [address], [phone], Provider Name:Yonathan mendoza, 09/17/2025 07:45:00 AM, [address] [place] [address], [place] [address], [place], [place], [phone], Provider Name:Yonathan mendoza, 09/24/2025 01:00:00 PM, [address] [place] [address], [address], [phone], Progress Notes * STEVEN NUNEZDOB: [birth year] (80 yo M)Acc No.[id number]:04/08/2025 Patient: STEVEN SOSA :1945 A ge:80 Y S ex:Male Address:[address] [place] [address], [place] [address] * true * Date: Generated for Douglas whitehead/Galina/Anasmitting on: 0 04/20/2025 03:53 AM EDT
--- OUTSIDE RECORDS SUMMARY | 2025-04-12 07:44 | XMS_ITS ---
Author Organization Yonathan Womack MD Address [address] [place] [phone] Care Team Providers Care Aml Analyst Name Role Phone Yonathan Womack Primary Care Provider REASON FOR VISIT foot swollen Encounters Encounter Location Date Provider Diagnosis Yonathan Womack MD [address] [facility] [address] [place] [phone] 04/12/2025 Yonathan Womack Plan Of Treatment Next Appt Details Provider Name:Yonathan mendoza, 06/06/2025 10:00:00 AM, [address] [place] [address], [place] [address], [place], [place], [phone], Provider Name:Yonathan mendoza, 09/17/2025 07:45:00 AM, [address] [place] [address], [address], [phone], Provider Name:Yonathan mendoza, 09/24/2025 01:00:00 PM, [address] [place] [address], [address], [phone], Progress Notes * STEVEN NUNEZDOB: [birth year] (80 yo M)Acc No.[id number]:04/12/2025 Patient: STEVEN SOSA :1945 A ge:80 Y S ex:Male Address:[address] [place] [address], [place] [address] * true * Date: Generated for Douglas whitehead/Galina/Anasmitting on: 0 04/20/2025 03:52 AM EDT
--- NOTE | ~2025-04-19 | XR_ITS ---
CLINICAL HISTORY: shortness of breath 1 view chest x-ray Comparison: 04/13/2025 Findings: Lungs are clear without acute infiltrates. No pneumothorax. Heart size enlarged. No acute bony abnormalities. Impression: No acute processes This document has been electronically signed by: Josh Harper MD on 04/20/2025 00:29:38
--- OUTSIDE RECORDS SUMMARY | 2025-04-19 10:00 | XMS_ITS ---
Author Organization Yonathan Womack MD Address [address] [place] [phone] Care Team Providers Care Staffing Operations Manager Name Role Phone Yonathan Womack Primary Care Provider REASON FOR VISIT discharge Encounters Encounter Location Date Provider Diagnosis Yonathan Womack MD [facility] [address] [place] [id number] 04/19/2025 Yonathan Womack Plan Of Treatment Next Appt Details Provider Name:Yonathan mendoza, 06/06/2025 10:00:00 AM, [address] [place] [address], [place] [address], [place], [place], [phone], Provider Name:Yonathan mendoza, 09/17/2025 07:45:00 AM, [address] [place] [address], [place] [address], [place], [place], [phone], Provider Name:Yonathan mendoza, 09/24/2025 01:00:00 PM, [address] [place] [address], [address], [phone], Progress Notes * STEVEN NUNEZDOB: [birth year] (80 yo M)Acc No.[id number]:04/19/2025 Patient: STEVEN SOSA :1945 A ge:80 Y S ex:Male Address:[address] [place] [address], [place] [address] * * Date:
--- NOTE | 2025-04-19 23:19 | ED.GENADULT ---
HPI - General Adult General Chief complaint: General Medical Stated complaint: n/v Time Seen by Provider: 04/19/25 23:19 History of Present Illness ED Provider: Mandy AMATO narrative: The patient is a 80-year-old male with a history of chronic congestive heart failure and atrial fibrillation on warfarin. The patient has been having a lot of problems over the last month. He was admitted briefly at [facility] from March 27 to March 28 for palpitations and heart failure. He had his metoprolol dose increased at that time. He was then hospitalized at this hospital from April 02 through April 10. At discharge he was started on zolpidem and was also given a prescription for lorazepam 0.25 mg b.i.d. I believe he was discharged home at that time. He was then rehospitalized at this hospital from April 14 to April 19, today. [facility] He arrived there at about 16:00. He became very frustrated that he was not receiving any medications. He says that he became nauseated and he did not receive any ondansetron. Ultimately he requested an ambulance to bring him back to the hospital here and he says he will not returned to that [facility]. He says that he has problems with chronic nausea and he feels that he is experiencing the nausea now. During the patient's recent hospitalization he was significantly diuresed. His management was complicated by some chronically low blood pressures. Because of his low blood pressures he was taken off sacubitril-valsartan (Entresto). Additionally he was switched from furosemide to torsemide. His amiodarone dose was changed from 200 mg b.i.d. to 200 mg daily. Related Data Home Medications ?Medication ?Instructions ?Recorded ?Confirmed omeprazole 20 mg capsule,delayed 40 mg PO DAILY@0630 11/14/20 04/20/25 release coenzyme Q10 100 mg capsule 100 mg PO DAILY 04/14/21 04/20/25 (CoQ-10) simvastatin 20 mg tablet 10 mg PO DAILY 11/19/24 04/20/25 spironolactone 25 mg tablet 25 mg PO DAILY 01/17/25 04/20/25 warfarin 2.5 mg tablet 5 mg PO SUWEFR@1800 04/03/25 04/20/25 warfarin 2.5 mg tablet 7.5 mg PO MOTUTHSA@1800 04/03/25 04/20/25 Previous Rx's ?Medication ?Instructions ?Recorded lorazepam 0.5 mg tablet 0.25 mg (1/2 x 0.5 mg) PO BID PRN 04/10/25 Anxiety #20 tabs zolpidem 5 mg tablet (Ambien) 5 mg PO BEDTIME PRN insomnia #14 04/10/25 tabs amiodarone 200 mg tablet 200 mg PO DAILY #30 tabs 04/19/25 ondansetron 4 mg disintegrating 4 mg translingual Q6H PRN Nausea 04/19/25 tablet And Vomiting #30 tabs torsemide 20 mg tablet 40 mg PO DAILY #30 tabs 04/19/25 amiodarone 200 mg tablet 200 mg PO DAILY #30 tabs 04/21/25 ondansetron 4 mg disintegrating 4 mg PO Q8H 10 days #20 tabs 04/21/25 tablet torsemide 20 mg tablet 40 mg (2 x 20 mg) PO DAILY #60 tabs 04/21/25 Allergies Allergy/AdvReac Type Severity Reaction Status Date / Time adenosine Allergy Severe cardiac, Verified 04/19/25 23:29 elevated BP, Stroke Gadolinium-Containing Allergy Severe red eyes Verified 04/19/25 23:29 Contrast Medi Iodinated Contrast Media Allergy Severe Seizure Verified 04/19/25 23:29 (CONTRAST, IV) carvedilol Allergy Intermediate disorientat Verified 04/19/25 23:29 ion erythromycin base AdvReac Unknown Gut Verified 04/19/25 23:29 pain , Abdominal Pain, GI upset Review of Systems Review of Systems: Yes all other systems are reviewed and are negative [facility] Past Medical History Medical History (Updated 04/22/25 @ 00:00 by Brayden Fair) Prostate cancer Atrial flutter Congestive heart failure CKD (chronic kidney disease) stage 3, GFR 30-59 ml/min Acute on chronic combined systolic and diastolic CHF (congestive heart failure) Orthopnea Anxiety Myocardial infarct, old CHF (congestive heart failure) CVA (cerebral vascular accident) A-fib Surgical History History of appendectomy Social History Social History Household Members: None Housing: House Do you presently have visiting nurse or other home services: Yes Alcohol intake: former Patient Tobacco Use Status: Former Tobacco user Smoked in Last 30 Days: No Use of substances other than those prescribed or required for medical reasons: No Advance Directives: No Advance Directives Information Provided: Yes service: No Current occupational status: disabled Physical Exam ED Vital Signs: Vital Signs - 24 hr 04/20/25 10:07 04/20/25 10:55 04/20/25 20:15 Temperature 97.0 F 97.5 F Pulse Rate 95 90 89 Respiratory Rate 18 18 Blood Pressure 104/69 109/64 105/62 Pulse Oximetry 95 95 99 Oxygen Delivery Method Room Air Nasal Cannula Oxygen Flow Rate 2 04/21/25 07:31 Temperature 98.2 F Pulse Rate 83 Respiratory Rate 15 Blood Pressure 97/67 Pulse Oximetry 95 Oxygen Delivery Method Room Air Oxygen Flow Rate BMI result Body Mass Index 27.0 Const Other: The patient is a chronically ill-appearing 80-year-old man. He is awake and alert. He does not seem in acute distress. HENMT Other: The face is symmetrical. ?Mucous membranes moist. Eyes Other: Pupils are round equal, conjunctivae are clear, extraocular movements intact Neck Neck: Yes normal visual inspection, Yes full ROM and Yes no JVD Resp Effort & Inspection: normal respiratory effort Auscultation: clear to auscultation bilaterally Cardio Rate: regular rate Rhythm: regular rhythm Heart sounds: S1 normal heart sound present and S2 normal heart sound present GI Other: The patient's abdomen is somewhat protuberant but soft and nontender. Skin Other: Skin is pale. He has a edema to the lower legs, right moreso than left. Neuro Other: The patient is awake and alert with a normal mental status. Cranial nerves are grossly intact. He moves his extremities grossly symmetrically and seems grossly neurologically intact. Extrem Other: The patient has pitting edema to both lower legs, more so on the right than the left. Good pulses in the feet. Course Course Course Narrative: 04/21/2025 0902 Bernice Tai PA-C ---> Observation continues. Case management continues. 04/21/2025 0932 Bernice Tai PA-C---> Observation care revealed the the patient does not meet medical necessity for hospitalization. Final disposition of discharge home with VNA servies discussed with the patient. Patient completed observation care at 0932 on 04/21/2025, total time spent in observation care was 1 day, 2 hours, and 42 minutes. Medications Administered Discontinued Medications Generic Name Dose Route Start Last Admin Trade Name Johnny PRN Reason Stop Dose Admin Acetaminophen 975 mg 04/21/25 04:35 04/21/25 04:39 Acetaminophen 325 Mg Tablet PO 04/21/25 04:36 975 mg ONCE ONE Administration Amiodarone HCl 200 mg 04/20/25 09:00 04/21/25 09:34 Amiodarone Hcl 200 Mg Tablet PO 200 mg DAILY TOMI Administration Atorvastatin Calcium 10 mg 04/20/25 09:00 04/21/25 09:33 Atorvastatin Calcium 10 Mg Tablet PO 10 mg DAILY TOMI Administration Lorazepam 1 mg 04/19/25 23:42 04/19/25 23:49 Lorazepam 1 Mg Tablet PO 04/19/25 23:43 1 mg ONCE ONE Administration Lorazepam 0.25 mg 04/20/25 03:11 04/21/25 09:40 Lorazepam 0.5 Mg Tablet PO 0.25 mg BID PRN Administration Anxiety Omeprazole 40 mg 04/20/25 06:30 04/21/25 05:45 Omeprazole 40 Mg Capsule.Dr PO 40 mg DAILY@0630 [facility] Administration Ondansetron HCl 4 mg 04/20/25 03:11 04/20/25 20:11 Ondansetron Odt 4 Mg Tab.Rapdis TRANSLINGU 4 mg Q6H PRN Administration Nausea and Vomiting Spironolactone 25 mg 04/20/25 09:00 04/21/25 09:34 Spironolactone 25 Mg Tablet PO 25 mg DAILY [facility] Administration Protocol Torsemide 40 mg 04/20/25 09:00 04/21/25 09:33 Torsemide 20 Mg Tablet PO 40 mg DAILY [facility] Administration Protocol Warfarin Sodium 7.5 mg 04/20/25 18:00 04/20/25 19:14 Warfarin Sodium 7.5 Mg Tablet PO 7.5 mg MOTUTHSA@1800 [facility] Administration Medical Decision Making Medical Decision Making MDM Narrative: The patient is a 80-year-old male with a history of paroxysmal atrial fibrillation and chronic congestive heart failure who was discharged from the hospital several hours ago but returns after being dissatisfied with care at this short-term rehabilitation facility to which he had been discharged. He was complaining of nausea and retching which I suspect is a manifestation of anxiety. The patient did not appear clinically on well. Labs and chest x-ray were done. His chest x-ray is clear. His renal function is mildly worse than when checked most recently and his BNP is slightly higher as well. However clinically he seems stable. He was kept in the emergency room overnight. This morning I contacted the lathe winder to had consulted on his case when he was in the hospital as to whether the patient should be rehospitalized based on his rising BNP and slightly worsening renal function. Dr. Ramos did not feel there was an indication for rehospitalization absent any clear clinical indication. Therefore the patient was placed in physician observation for physical therapy evaluation and case management to see if a different disposition could be arranged for this patient. The patient made it very clear he did not wish to return to the [facility] where he had been discharged previously. Lab Data 04/20/25 00:15 04/20/25 00:15 Labs: Lab Results 04/20/25 04/20/25 04/21/25 Range/Units 00:15 12:04 09:16 WBC 10.4 (4.8-10.8) X10*3/uL RBC 4.45 L (4.60-5.80) X10*6/uL Hgb 13.6 L (14.0-18.0) g/dl Hct 39.0 L (42.0-52.0) % MCV 87.6 (80.0-98.0) fL MCH 30.6 (27.0-33.0) pg MCHC 34.9 (31.0-36.0) g/dl RDW 13.8 (11.0-16.0) % Plt Count 166 (160-400) X10*3/uL MPV 10.6 (9.4-12.4) fL Immature Gran % (Auto) 1.0 H (0.0-0.4) % Neut % (Auto) 72.7 (45-73) % Lymph % (Auto) 19.3 L (20-40) % Dauphin % (Auto) 6.0 (2-11) % Eos % (Auto) 0.6 (0-4) % Baso % (Auto) 0.4 (0-2) % Lymph # (Auto) 2.0 (1.2-4.9) X10*3/uL Da[place]hin # (Auto) 0.6 (0.1-1.2) X10*3/uL Eos # (Auto) 0.1 (0.0-0.4) X10*3/uL Baso # (Auto) 0.0 (0.0-0.2) X10*3/uL Abs Immat Gran (auto) 0.10 H (0.00-0.03) X10*3/uL Absolute Neuts (auto) 7.6 (2.0-8.3) x10*3/uL Absolute Nucleated RBC 0.000 (0.0-0.012) X10*3/uL Nucleated RBC % (auto) 0.0 (0.0-0.2) /100WBC PT 32.4 H 28.8 H 35.8 H D (10.9-12.4) SEC INR 2.8 H 2.5 H 3.1 H (0.9-1.1) Sodium 138 (135-145) mmol/L Potassium 4.2 (3.3-5.1) mmol/L Chloride 97 (96-108) mmol/L Carbon Dioxide 31 H (22-29) mmol/L Anion Gap 14 (12-20) BUN 27 H (9-16) mg/dL Creatinine 1.57 H (0.5-1.4) mg/dL Estim Creat Clear Calc 40.6 Estimated GFR 43 Random Glucose 154 H (60-115) mg/dL Calcium 9.6 (8.4-10.2) mg/dL Magnesium 1.8 (1.6-2.6) mg/dL Total Bilirubin 1.1 H (0.0-1.0) mg/dL Direct Bilirubin 0.5 (0.0-0.5) mg/dL AST 21 (5-37) U/L ALT 16 (0-40) U/L Alkaline Phosphatase 72 (39-117) U/L Troponin I High Sens 62.8 H (<3.5-35.0) ng/L B-Natriuretic Peptide 2434 H (<100) pg/mL Total Protein 6.7 (6.5-8.0) g/dL Albumin 4.2 (3.5-5.0) g/dL Ethyl Alcohol < 10 mg/dL Independent Interpretation I performed an independent interpretation of an: EKG Interpretation: EKG at 23:57 shows sinus rhythm with first-degree AV block at 95 beats per minute. There are premature ventricular complexes. No remarkable changes from previous. Discharge Plan Discharge Clinical Impression: Nausea & vomiting Patient Disposition: Home, Self-Care Instructions: Acute Nausea and Vomiting (DC) Prescriptions: New torsemide 20 mg tablet 40 mg PO DAILY Qty: 60 0RF amiodarone 200 mg tablet 200 mg PO DAILY Qty: 30 0RF ondansetron 4 mg tablet,disintegrating 4 mg PO Q8H 10 Days Qty: 20 0RF No Action coenzyme Q10 [CoQ-10] 100 mg Capsule 100 mg PO DAILY warfarin 2.5 mg Tablet 7.5 mg PO MOTUTHSA@1800 Protocol: Dose Management Condition: Tuesday (Week One) Dose/Route: 0 mg Instruction: 0 tablets Condition: Tuesday Dose/Route: 7.5 mg Instruction: 3 x 2.5 mg tablets Condition: Tuesday Dose/Route: 7.5 mg Instruction: 3 x 2.5 mg tablets Condition: Tuesday Dose/Route: 5 mg Instruction: 2 x 2.5 mg tablets Condition: Dose/Route: 7.5 mg Instruction: 3 x 2.5 mg tablets Condition: Tuesday Dose/Route: 5 mg Instruction: 2 x 2.5 mg tablets Condition: Tuesday Dose/Route: 7.5 mg Instruction: 3 x 2.5 mg tablets Condition: Tuesday (Week Two) Dose/Route: 5 mg Instruction: 2 x 2.5 mg tablets Condition: Tuesday Dose/Route: 7.5 mg Instruction: 3 x 2.5 mg tablets Condition: Tuesday Dose/Route: 7.5 mg Instruction: 3 x 2.5 mg tablets Condition: Tuesday Dose/Route: 5 mg Instruction: 2 x 2.5 mg tablets Condition: Dose/Route: 7.5 mg Instruction: 3 x 2.5 mg tablets Condition: Tuesday Dose/Route: 5 mg Instruction: 2 x 2.5 mg tablets Condition: Tuesday Dose/Route: 7.5 mg Instruction: 3 x 2.5 mg tablets Protocol Text: Adjustment Start Date: 04/11/25 INR Value: 2.3 INR Date: 04/11/25 Recheck Date: 04/15/25 Additional Instructions: REVIEW FOOD LIST WEEKLY - KEEP UP WEEKLY GREENS THE AMIODARONE YOU ARE ON CAN RAISE THE INR SIGNIFICANTLY. YOUR WARFARIN DOSE IS GOING TO BE DECREASED warfarin 2.5 mg Tablet 5 mg PO SUWEFR@1800 Protocol: Dose Management Condition: Tuesday (Week One) Dose/Route: 0 mg Instruction: 0 tablets Condition: Tuesday Dose/Route: 7.5 mg Instruction: 3 x 2.5 mg tablets Condition: Tuesday Dose/Route: 7.5 mg Instruction: 3 x 2.5 mg tablets Condition: Tuesday Dose/Route: 5 mg Instruction: 2 x 2.5 mg tablets Condition: Dose/Route: 7.5 mg Instruction: 3 x 2.5 mg tablets Condition: Tuesday Dose/Route: 5 mg Instruction: 2 x 2.5 mg tablets Condition: Tuesday Dose/Route: 7.5 mg Instruction: 3 x 2.5 mg tablets Condition: Tuesday (Week Two) Dose/Route: 5 mg Instruction: 2 x 2.5 mg tablets Condition: Tuesday Dose/Route: 7.5 mg Instruction: 3 x 2.5 mg tablets Condition: Tuesday Dose/Route: 7.5 mg Instruction: 3 x 2.5 mg tablets Condition: Tuesday Dose/Route: 5 mg Instruction: 2 x 2.5 mg tablets Condition: Dose/Route: 7.5 mg Instruction: 3 x 2.5 mg tablets Condition: Tuesday Dose/Route: 5 mg Instruction: 2 x 2.5 mg tablets Condition: Tuesday Dose/Route: 7.5 mg Instruction: 3 x 2.5 mg tablets Protocol Text: Adjustment Start Date: 04/11/25 INR Value: 2.3 INR Date: 04/11/25 Recheck Date: 04/15/25 Additional Instructions: REVIEW FOOD LIST WEEKLY - KEEP UP WEEKLY GREENS THE AMIODARONE YOU ARE ON CAN RAISE THE INR SIGNIFICANTLY. YOUR WARFARIN DOSE IS GOING TO BE DECREASED zolpidem [Ambien] 5 mg tablet 5 mg PO BEDTIME PRN (Reason: insomnia) Qty: 14 0RF lorazepam 0.5 mg Tablet 0.25 mg PO BID PRN (Reason: Anxiety) Qty: 20 0RF torsemide 20 mg Tablet 40 mg PO DAILY Qty: 30 0RF Protocol: Hold for SBP< HOLD for SBP < : 90 amiodarone 200 mg Tablet 200 mg PO DAILY Qty: 30 0RF ondansetron 4 mg Tablet,Disintegrating 4 mg translingual Q6H PRN (Reason: Nausea And Vomiting) Qty: 30 0RF omeprazole 20 mg capsule,delayed release(DR/EC) 40 mg PO DAILY@0630 simvastatin 20 mg tablet 10 mg PO DAILY spironolactone 25 mg tablet 25 mg PO DAILY Referrals: [facility] [Other] Referral Note: RESUMPTION OF HOME HEALTH AID [facility] [Outside] Interventions: ED Discharge Assessment Last Done: 04/21/25 10:18 Discharge Date/Time: 04/21/25 11:57 Print Language: Kinyarwanda
[2025-04-19 23:21] VITALS: BP 102/67; BP 112/68; PULSE 101; PULSE 112; RESP 16; TEMP 36.5; O2SAT 96; O2SAT 98; BMI 27.0
--- NOTE | 2025-04-19 23:29 | ECG_ITS ---
Test Reason : DYSPNEA Blood Pressure : */* mmHG Vent. Rate : 95 BPM Atrial Rate : 95 BPM P-R Int : 226 ms QRS Dur : 130 ms QT Int : 384 ms P-R-T Axes : 87 -56 57 degrees QTcB Int : 482 ms Sinus rhythm with 1st degree A-V block with frequent Premature ventricular complexes Left axis deviation Non-specific intra-ventricular conduction block Minimal voltage criteria for LVH, may be normal variant ( Mark product ) Abnormal ECG When compared with ECG of 13-Apr-2025 23:01, No significant changes seen Referred By: Dillon Galvan Electronically Signed By: ANILA LINCOLN
[2025-04-20] VITALS (8 sets, daily range): BP systolic 93–109; BP diastolic 53–69; PULSE 75–95; RESP 16–20; TEMP 36.1–36.8; O2SAT 95–99
[2025-04-20 00:20] LABS: MANUAL DIFF FLAG NO
[2025-04-20 00:21] LABS: Hematocrit 39.0 % (42.0-52.0); Hemoglobin 13.6 g/dl (14.0-18.0); Imm Gran Abs Auto 0.10 X10*3/uL (0.00-0.03); Imm Gran Pct Auto 1.0 % (0.0-0.4); Lymphocytes Absolute Auto 2.0 X10*3/uL (1.2-4.9); Mean Corpuscular HGB Conc 34.9 g/dl (31.0-36.0); Mean Corpuscular Hemoglobin 30.6 pg (27.0-33.0); Mean Corpuscular Volume 87.6 fL (80.0-98.0); NRBC Abs Auto 0.000 X10*3/uL (0.0-0.012); NRBC Pct Auto 0.0 /100WBC (0.0-0.2); Platelet Count 166 X10*3/uL (160-400); Red Blood Count 4.45 X10*6/uL (4.60-5.80); White Blood Count 10.4 X10*3/uL (4.8-10.8)
[2025-04-20 00:26] LABS: INTERNATIONAL NORM RATIO 2.8 (0.9-1.1); Prothrombin Time 32.4 SEC (10.9-12.4)
[2025-04-20 00:41] LABS: Alanine Aminotransferase 16 U/L (0-40); Albumin Level 4.2 g/dL (3.5-5.0); Alkaline Phosphatase 72 U/L (39-117); Anion Gap 14 (12-20); Aspartate Amino Transferase 21 U/L (5-37); Blood Urea Nitrogen 27 mg/dL (9-16); Calcium 9.6 mg/dL (8.4-10.2); Carbon Dioxide 31 mmol/L (22-29); Chloride 97 mmol/L (96-108); Creatinine Clr Calc Pharmacy 40.6; Estimated Glomerular Filt Rate 43; Magnesium 1.8 mg/dL (1.6-2.6); Potassium 4.2 mmol/L (3.3-5.1); Sodium 138 mmol/L (135-145); Total Protein 6.7 g/dL (6.5-8.0)
[2025-04-20 00:42] LABS: Troponin-I High Sensitivity 62.8 ng/L (<3.5-35.0)
[2025-04-20 00:43] LABS: B Type Natriuretic Peptide 2434 pg/mL (<100)
--- NOTE | 2025-04-20 02:45 | PC.NURSE ---
pt awoke asking to use the bathroom, w/ an assist of 1 pt attempted to urinate in a urinal at the bedside, not able to void. Pt was bladder scanned showing 79mL of urine in the bladder. Pt requesting wang bradley MD made aware
--- NOTE | 2025-04-20 02:55 | PC.NURSE ---
pt currently sitting up on the side of the bed w/ this RN present, eating small amount of ice chips
--- NOTE | 2025-04-20 03:17 | PC.NURSE ---
medication reconciliation complete, provider Fidelina Galvan made aware
--- OUTSIDE RECORDS SUMMARY | 2025-04-20 03:52 | XMS_ITS | Encounter Summary ---
Author Organization [facility] Address [address] [place] [address] Care Team Providers Care Rehabilitation Technician Name Role Phone Yonathan Womack MD Primary Care Provider [phone] Reason for Visit * Reason Onset Date Comments Weight Gain 04/12/2025 Encounter Details Date Type Department Care Team (Late st Contact Info) Description 04/12/2025 Telephone [facility] [address] [place] [address] Adeel Bunn MD [address] [place] [address] [address] [place] [address] [place] [address] Social History Tobacco Use Types Packs/Day Years [...] as of this encounter Progress Notes * Chantal Ascencio RN - 04/12/2025 4:32 PM EDT Spoke with [facility] and relayed below conversation with her updating her on conversation I had with patient and let her know unsure if he will be going to hospital and that he was made aware if hegoes to the ER he follows hospital recommendations. * Chantal Ascencio RN - 04/12/2025 12:22 PM EDT Spoke with VN and relayed KENYA response and orders. She stated vna can draw labs Tuesday. Called patient to confirm dose of lasix tabs and he confirmed Lasix 20 mg 2 tabs BID. He took additional 20 mg 2 tabs on phone with me and will take usual 20 mg 2 tabs this afternoon. Tue and Tuesday 20 mg 4 tabs a.m. and 2 tabs after noon 6 hrs later. Tuesday back to usual dosing and labs to be drawn by VN. He verbalized understanding. He stated his daughter contacted pcp advised he go to er after being contacted Patient does not want to go to ER. He states his breathing is not as bad as it was when he was discharged from hospital.He wants to follow cardiology instructions. He did agree if breathing worsens, or does not improve,if he becomes dizzy, or other sx he will call 911 to go to ER. * Yvette Carpenter NP - 04/12/2025 11:53 AM EDT Please have the patient take an extra 40 mg of Lasix today, tomorrow and Tuesday. BMP next week. ER if symptoms persist or worsen or he has dizziness lightheadedness, worsening shortness of breath despite titration of diuretic therapy. * Chantal Ascencio RN - 04/12/2025 10:54 AM EDT See below task. Hosp [facility] x 9 days. VNA did Resumption Of Care yesterday . Reports 3.2 wgt gain over night. Takes Lasix 40 mg BID with no missed doses. Does not drink as muchliquids as he should per VN but did not know how many liquids he drinks. Urinating same amount but againnot sure how much he urinates, color, etc. BP prior to meds 118/78, 106 (per telehealth) and 2 hrs after meds manually checked by VN 104/60 L arm and 98/58, R arm. Patient felt anxious and took a prn ativan and reported sx improved. Per [facility] who saw patient today reports 3.2 lbs overnight. Had different clothing on (unsureif had shoes on for today's weight. Does have 1+ LLE up to shins and patient reported to VN feels tight Does not elevate legs or wear compression socks. VN advised he elevate feet. Adhering to 2 gram sodium diet. Denied PND. Is at baseline with shortness of breath with exertion. Did report since started Amiodarone feels jittery and vomited last night. Med list updated. * Nitza Yost - 04/12/2025 10:00 AM EDT Spoke with nurse Kaia from [facility]. She states patient has gained weight. Yesterday his weight was 189.6. today his weight is 192.8. she states patient is experiencing 1+ pitting edema.Patient's HR is 91. Denies any other symptoms. Patient would like to know should he increase Lasix intake. He is currently taking Lasix 40 mg. Best call back number is [phone] documented in this encounter Plan of Treatment Upcoming Encounters Date Type Department Care Team (Late st Contact Info) Description 06/04/2025 2:00 PM EDT Office Visit [facility] [address] [facility] [address] [place] [id number] Adeel Bunn MD [address] [place] [address] [address] [place] [address] [place] [address] 06/17/2025 11:30 AM EDT Office Visit [facility] [address] [place] [id number] Michaela Anguiano NP [address] [place] [address] [address] [place] [address] [place] [address] Scheduled Orders Name Type Priority Associated Diagnoses Orde r Schedule Basic metabolic panel Lab Routine Congestive heart failure, unspecified HF chronicity, unspecified heart failure type ([facility] V24, [facility] V28) 1 Occurrences starting 04/12/2025 until 04/12/2026 documented as of this encounter Visit Diagnoses Diagnosis Congestive heart failure, unspecified HF chronicity, unspecified heart failure type ([facility] V24, [facility] V28)- Primary documented in this encounter Discontinued Medications Medication Sig Discontinue Reason Start Date End Da te metoprolol succinate (TOPROL-XL) 25 mg 24 hr tabletIndications:Paroxys mal atrial fibrillation ([facility] V24, [facility] V28) Take 1 tablet (25 mg total) by mouth 1 (one) time each day. Do not crush or chew. 03/04/2025 04/12/2025 warfarin (COUMADIN) 2.5 mg tablet Take 1 Tablet by mouth See Admin Instructions. May cause heavy bleeding. Take at same time every day. Do not change dietary habits. Managed by [facility]. 04/12/2025 documented as of this encounter Historical Medications * This list may reflect changes made after this encounter. zolpidem (AMBIEN) 5 mg tablet Take 1 tablet (5 mg total) by mouth at bedtime as needed for sleep. Max Daily Amount: 5 mg warfarin (COUMADIN) 2.5 mg tablet Take by mouth. 3 tablets every Mon, Tu, , Tue, Sat 2 tabs every Tuesday as reported by [facility] amiodarone (PACERONE) 200 mg tablet Take by mouth 1 (one) time each day. 200 mg BID until 04/20/25 then 200 mg daily starting 04/21/25 added in this encounter Care Teams Rehabilitation Technician Relationship Specialty Start Date End Date Yonathan Womack MD [address] [place] [address] Drive [address] [place] [address] PCP - General 12/26/12 documented as of this encounter
--- OUTSIDE RECORDS SUMMARY | 2025-04-20 03:53 | XMS_ITS | Patient Health Record ---
Author Organization Yonathan Womack MD Address [address] [place], [place] [id number] Care Team Providers Care Railroad Inspector Name Role Phone Yonathan Womack Primary Care Provider Allergies Allergen (clinical drug ingredient) Drug/Non Drug Allergy documented on EMR Reaction Allergy Type Onset Date Status Adedison (uncoded) Elevated BP Allergy Active erythromycin Erythromyicin (uncoded) GI Upset Allergy Active erythromycin Ilisone (uncoded) GI Upset Allergy Active IVPDye (uncoded) Convulsion Allergy Ac tive gadolinium (uncoded) red eues Allergy Active Results Component Value Reference Range Notes Complete Blood Count Auto Di ff Reviewed date:09/17/2024 05:23:58 PM Interpretation: Performing Lab:[facility], [address] [place] [phone] Notes/Report: White Blood Count 8.3 4.8-10.8 X10*3/uL [...] NRBC Abs Auto 0.000 0.0-0.012 X10*3/uL Comprehensive [place]. Panel Fa st Reviewed date:09/17/2024 05:21:17 PM Interpretation: Performing Lab:[facility], [address] [place] [phone] Notes/Report: Sodium 137 135-145 mmol/L Potassium 4.2 [...] Panel Reviewed date:09/17/2024 05:02:42 PM Interpretation: Performing Lab:[address] [address] Notes/Report: Triglycerides 85 <150 mg/dL Desirable Triglyceride: [...] Total Reviewed date:09/17/2024 05:02:53 PM Interpretation: Performing Lab:[address] [address] Notes/Report: Vitamin D 25-OH Total 66.5 >30 [...] A1c Reviewed date:09/17/2024 05:01:59 PM Interpretation: Performing Lab:[address] [address] Notes/Report: Hemoglobin A1c % 5.9 <6.0 % [...] average glucose, using the formula of the K2E-Cdjgyqi Average Glucose study (ADAG), Diabetes Care, Vol.31,#8, Mar. 2007 Liver Panel Reviewed date:03/21/2025 02:47:05 PM Interpretation: Performing Lab:[address] [address] Notes/Report: Bilirubin Total 1.1 0.0-1.0 mg/dL Bilirubin Direct 0.3 0.0-0.5 mg/dL Aspartate Amino Transferase 21 5-37 U/L Alanine Aminotransferase 20 0-40 U/L Total Protein 6.6 6.5-8.0 g/dL Albumin Level 4.2 3.5-5.0 g/dL Alkaline Phosphatase 78 39-117 U/L Glucose Fasting Reviewed date:03/21/2025 02:47:14 PM Interpretation: Performing Lab:[address] [address] Notes/Report: Glucose Fasting 128 60-99 mg/dL A fasting glucose of 126 mg/dl or greater on more than one occasion is considered diagnostic of diabetes. Lipid Panel with Reflex Reviewed date:03/21/2025 05:17:52 PM Interpretation: Performing Lab:[address] [address] Notes/Report: Triglycerides 117 <150 mg/dL Desirable Triglyceride: less than 150 mg/dL Borderline High Triglyceride 150-199 mg/dL High Triglyceride: 200-499 mg/dL Very High Triglyceride: greater than or equal to 5OO mg/dL Cholesterol 134 <200 mg/dL Desirable Cholesterol: less than 200 mg/dL Borderline High Cholesterol: 200-239 mg/dL High Cholesterol: greater than 239 mg/dL LDL Cholesterol Calculated 78 <100 mg/dL Desirable LDL: less than 100 mg/dL Near Optimal/Above Optimal LDL: 110-129 mg/dL Borderline High LDL: 130-159 mg/dL High LDL: 160-189 mg/dL Very High LDL: greater than or equal to 190 mg/dL HDL Cholesterol 33 >40 mg/dL Desirable HDL: greater than 40 mg/dL Note: This HDL assay may give artificially low results in patients with liver disease. Hemoglobin A1c Reviewed date:03/21/2025 02:48:51 PM Interpretation: Performing Lab:[facility], [address] [place] [phone] Notes/Report: Hemoglobin A1c % 6.0 <6.0 % Hemoglobin A1C Reference Range Adults: 4.8 - 6.0 % Non diabetic: < 6.0 % Goal: < 7.0 % Additional Action Suggested: > 8.0 % Note: Hemoglobin A1c results are invalid for patients with abnormal amounts of HbF. Blood transfusions may impact the HbA1c concentration in the patient sample. Estimated Average Glucose 126 eAG = Estimated average glucose which is %A1C expressed as average glucose, using the formula of the W7Q-Tyfdetf Average Glucose study (ADAG), Diabetes Care, Vol.31,#8, Mar. 2007 INR WHOLE BLOOD POC Reviewed date:05/15/2024 11:36:59 AM Interpretation: Performing Lab:[facility], [address] [place] [phone] Notes/Report: PT, INR - [facility] 1.8 0.9-1.1 METER #: [id number] INTERNATIONAL NORMALIZED RATIO (INR) REFERENCE RANGES Reference [...] OC Reviewed date:05/15/2024 10:55:33 AM Interpretation: Performing Lab:[facility], [address] [place] [phone] Notes/Report: Prothrombin Time Whole Bld POC 21.1 11.1-13.5 sec INR WHOLE BLOOD POC Reviewed date:05/29/2024 10:08:18 AM Interpretation: Performing Lab:[facility], [address] [place] [phone] Notes/Report: PT, INR - [facility] 2.0 0.9-1.1 METER #: [id number] INTERNATIONAL NORMALIZED RATIO (INR) REFERENCE RANGES Reference [...] OC Reviewed date:05/29/2024 10:08:25 AM Interpretation: Performing Lab:[facility], [address] [place] [phone] Notes/Report: Prothrombin Time Whole Bld POC 24.0 11.1-13.5 sec INR WHOLE BLOOD POC Reviewed date:06/26/2024 10:55:58 AM Interpretation: Performing Lab:[facility], [address] [place] [address] Notes/Report: PT, INR - [facility] 2.6 0.9-1.1 METER #: [id number] INTERNATIONAL NORMALIZED RATIO (INR) REFERENCE RANGES Reference [...] OC Reviewed date:06/26/2024 10:55:20 AM Interpretation: Performing Lab:[facility], [address] [place] [phone] Notes/Report: Prothrombin Time Whole Bld POC 31.3 11.1-13.5 sec INR WHOLE BLOOD POC Reviewed date:07/24/2024 12:43:30 PM Interpretation: Performing Lab:[facility], [address] [place] [phone] Notes/Report: PT, INR - [facility] 2.7 0.9-1.1 METER #: [id number] INTERNATIONAL NORMALIZED RATIO (INR) REFERENCE RANGES Reference [...] OC Reviewed date:07/24/2024 12:43:38 PM Interpretation: Performing Lab:[facility], [address] [place] [phone] Notes/Report: Prothrombin Time Whole Bld POC 32.5 11.1-13.5 sec INR WHOLE BLOOD POC Reviewed date:08/23/2024 12:31:58 PM Interpretation: Performing Lab:[facility], [address] [place] [address] Notes/Report: PT, INR - [facility] 2.6 0.9-1.1 METER #: [id number] INTERNATIONAL NORMALIZED RATIO (INR) REFERENCE RANGES Reference [...] OC Reviewed date:08/23/2024 12:31:49 PM Interpretation: Performing Lab:[facility], [address] [place] [phone] Notes/Report: Prothrombin Time Whole Bld POC 31.7 11.1-13.5 sec PSA,Total (Free>4and<10) Reviewed date:09/17/2024 05:00:46 PM Interpretation: Performing Lab:[address] [address] Notes/Report: PSA,Total (Free>4and<10) 0.21 0.00-4.00 ng/mL A [...] POC Reviewed date:09/20/2024 11:51:44 AM Interpretation: Performing Lab:[address] [address] Notes/Report: PT, INR - [facility] 2.2 0.9-1.1 METER #: [id number] INTERNATIONAL NORMALIZED RATIO (INR) REFERENCE RANGES Reference [...] OC Reviewed date:09/20/2024 12:12:38 PM Interpretation: Performing Lab:[address] [address] Notes/Report: Prothrombin Time Whole Bld POC 26.6 11.1-13.5 sec INR WHOLE BLOOD POC Reviewed date:10/18/2024 12:44:55 PM Interpretation: Performing Lab:[address] [address] Notes/Report: PT, INR - [facility] 2.9 0.9-1.1 METER #: [id number] INTERNATIONAL NORMALIZED RATIO (INR) REFERENCE RANGES Reference [...] OC Reviewed date:10/18/2024 12:44:46 PM Interpretation: Performing Lab:[facility], [address] [place] [phone] Notes/Report: Prothrombin Time Whole Bld POC 34.6 11.1-13.5 sec US renal BI Reviewed date:11/13/2024 12:24:24 PM Interpretation: Performing Lab: Notes/Report: [address] [address] Ultrasound Report Signed Patient: Steven Tiwari MR#: [id number] : 1945 Acct:[id number] Age/Sex: 79 / M ADM Date: 11/12/24 Loc: HO.US Attending Dr: Yonathan Womack MD Ordering Physician: Yonathan Womack MD Date of Service: 11/12/24 Procedure(s): US renal BI Accession Number(s): [id number] cc: Yonathan Womack MD CLINICAL HISTORY: Disorders of adrenal gland US RENAL Comparison: US/MO/SR - US ABDOMEN COMPLETE - 10/06/23 08:38 [...] 11/12/24 1740 DD/ 173 TD/TT: 11/12/24 173 Childbirth Educator: [place] [address] Ultrasound Report Signed Patient: Steven Tiwari MR#: [id number] : 1945 Acct:[id number] Age/Sex: 79 / M ADM Date: 11/12/24 Loc: HO.US Attending Dr: Yonathan Womack MD Ordering Physician: Yonathan Womack MD Date of Service: 11/12/24 Procedure(s): US evelyne Aranda Accession Number(s): [id number] cc: Yonathan Womack MD CLINICAL HISTORY: Disorders of adrenal gland US RENAL Comparison: US/MO/SR - US ABDOMEN COMPLETE - 10/06/23 08:38 [...] by Natasha Rosales MD in OV> 11/12/24 174 DD/ 173 TD/TT: 11/12/241738 Childbirth Educator: INR WHOLE BLOOD POC Reviewed date:11/19/2024 12:19:08 PM Interpretation: Performing Lab:[facility], [address] [place] [phone] Notes/Report: PT, INR - [facility] 2.7 0.9-1.1 METER #: [id number] INTERNATIONAL NORMALIZED RATIO (INR) REFERENCE RANGES Reference [...] OC Reviewed date:11/19/2024 12:18:23 PM Interpretation: Performing Lab:[facility], [address] [place] [phone] Notes/Report: Prothrombin Time Whole Bld POC 32.8 11.1-13.5 sec Complete Blood Count Auto Di ff Reviewed date:12/10/2024 04:29:58 PM Interpretation: Performing Lab:[facility], [address] [place] [phone] Notes/Report: White Blood Count 7.7 4.8-10.8 X10*3/uL [...] INR Reviewed date:12/10/2024 04:19:38 PM Interpretation: Performing Lab:[address] [address] Notes/Report: Prothrombin Time 31.9 10.9-12.4 SEC INTERNATIONAL [...] Time Reviewed date:12/10/2024 04:20:01 PM Interpretation: Performing Lab:[address] [address] Notes/Report: Partial Thromboplastin Time 41.3 26.0-36.8 SEC For information regarding the monitoring of direct thrombin inhibitors, please refer to Pharmacy. Comprehensive Met. Panel Reviewed date:12/10/2024 04:27:04 PM Interpretation: Performing Lab:[facility], [address] [place] [phone] Notes/Report: Sodium 137 135-145 mmol/L Potassium 3.5 [...] Magnesium Reviewed date:12/10/2024 04:22:04 PM Interpretation: Performing Lab:[facility], [address] [place] [phone] Notes/Report: Magnesium 1.5 1.6-2.6 mg/dL Troponin-I High Sensitivity Reviewed date:12/10/2024 04:19:00 PM Interpretation: Performing Lab:[facility], [address] [place] [phone] Notes/Report: Troponin-I High Sensitivity 53.3 <3.5-35.0 ng/L The Rahman high sensitivity Troponin-I results should be used in conjunction with other diagnostic information such as ECG, clinical observations and information, and patient symptoms to aid in the diagnosis of DE. B Type Natriuretic Peptide Reviewed date:12/10/2024 04:19:53 PM Interpretation: Performing Lab:[facility], [address] [place] [phone] Notes/Report: B Type Natriuretic Peptide 1054 <100 pg/mL Lipase Reviewed date:12/10/2024 04:20:58 PM Interpretation: Performing Lab:[facility], [address] [place] [phone] Notes/Report: Lipase 29 8-78 U/L Glucose, Whole Blood Reviewed date:12/10/2024 04:26:07 PM Interpretation: Performing Lab:[facility], [address] [place] [phone] Notes/Report: Glucose, Whole Blood 120 60-115 mg/dL METER # : [id number] SARS-CoV2/FLU/RSV Reviewed date:12/10/2024 04:18:51 PM Interpretation: Performing Lab:[facility], [address] [place] [phone] Notes/Report: Influenza A PCR NEGATIVE Negative Influenza [...] by authorized laboratories. Testing performed on the [employer] GeneXpert utilizing real-time RT-PCR. All SARS CoV2 and positive influenza A/B results are reported to [facility]. UA CC w/rflx Micro + Cult Reviewed date:12/12/2024 06:31:56 PM Interpretation: Performing Lab:[facility], [address] [place] [phone] Notes/Report: Urine, Clean Catch Color Urine Yellow Appearance Urine Clear PH 7.0 5.0-9.0 Glucose Urine UA Negative Negative mg/dL Urine Blood Negative Negative Specific [place] - Urine 1.010 1.005-1.025 Urine Protein Negative Neg-Trace mg/dL Urine Ketones Negative Negative mg/dL Nitrite Urine Negative Negative Leukocyte Esterase Urine Negative Negative Venous Blood Gases - POC Reviewed date:12/10/2024 04:26:00 PM Interpretation: Performing Lab:[facility], [address] [place] [phone] Notes/Report: VBG pH 7.53 7.32-7.43 METER #: [id number] additional_comment: [facility] VBG pCO2 34 METER #: [id number] additional_comment: Cb katyl VBG pO2 55 METER #: [id number] additional_comment: C[facility] katyl VBG Base Excess 6.3 METER #: [id number] additional_comment: C[facility] katyl VBG HCO3 28 22-26 mmol/L METER #: [id number] additional_comment: Cb katyl VBG O2 % Saturation 87.0 METER #: [id number] additional_comment: Cb springl XR chest 1V Reviewed date:12/10/2024 04:19:30 PM Interpretation: Performing Lab: Notes/Report: [address] [address] XRay Report Signed Patient: Steven Tiwari MR#: [id number] : 1945 Acct:[id number] Age/Sex: 79 / M ADM Date: 12/09/24 Loc: .ED Attending Dr: Ordering Physician: Ian Fairchild MD Date of Service: 12/09/24 Procedure(s): XR chest 1V Accession Number(s): [id number] cc: Yonathan Womack MD; Ian Fairchild MD [...] 12/09/24 1237 DD/ 1235 TD/TT: 12/09/24 123 Childbirth Educator: [address] [address] XRay Report Signed Patient: Steven Tiwari MR#: [id number] : 1945 Acct:[id number] Age/Sex: 79 / M ADM Date: 12/09/24 Loc: HO.ED Attending Dr: Ordering Physician: Ian Fairchild MD Date of Service: 12/09/24 Procedure(s): XR robin st 1V Accession Number(s): [id number] cc: Yonathan Womack MD; Ian Fairchild MD [...] 12/09/24 1237 DD/ 1235 TD/TT: 12/09/24 1235 Childbirth Educator: Complete Blood Count Auto Di ff Reviewed date:12/10/2024 04:30:36 PM Interpretation: Performing Lab:[facility], [address] [place] [phone] Notes/Report: White Blood Count 9.0 4.8-10.8 X10*3/uL [...] gy Reviewed date:12/10/2024 04:29:17 PM Interpretation: Performing Lab:[address] [address] Notes/Report: Hold Lav - Possible Hematology SEE NOTE Specimen will be held untested for 8 hours. Call Hematology if testing is desired. Prothrombin Time INR Reviewed date:12/10/2024 04:26:18 PM Interpretation: Performing Lab:[address] [address] Notes/Report: Prothrombin Time 28.1 10.9-12.4 SEC INTERNATIONAL [...] Panel Reviewed date:12/10/2024 04:29:09 PM Interpretation: Performing Lab:[facility], [address] [place] [phone] Notes/Report: Sodium 136 135-145 mmol/L Potassium 3.4 [...] Magnesium Reviewed date:12/10/2024 04:19:08 PM Interpretation: Performing Lab:[facility], [address] [place] [phone] Notes/Report: Magnesium 2.1 1.6-2.6 mg/dL Glucose, Whole Blood Reviewed date:12/10/2024 04:29:26 PM Interpretation: Performing Lab:[facility], [address] [place] [phone] Notes/Report: Glucose, Whole Blood 99 60-115 mg/dL METER # : [id number] Hold Lav - Possible Hematolo gy Reviewed date:12/11/2024 06:37:44 PM Interpretation: Performing Lab:[facility], [address] [place] [phone] Notes/Report: Hold Lav - Possible Hematology SEE NOTE Specimen will be held untested for 8 hours. Call Hematology if testing is desired. Prothrombin Time INR Reviewed date:12/11/2024 06:42:07 PM Interpretation: Performing Lab:[facility], [address] [place] [phone] Notes/Report: Pt in MARY JANE [place]gess Prothrombin Time 32.4 10.9-12.4 SEC INTERNATIONAL NORM [...] Panel Reviewed date:12/11/2024 06:36:39 PM Interpretation: Performing Lab:[facility], [address] [place] [phone] Notes/Report: Pt in makenzie MARY JANE Sodium 135 135-145 mmol/L Potassium 3.4 3.3-5.1 [...] Magnesium Reviewed date:12/11/2024 06:36:22 PM Interpretation: Performing Lab:[facility], [address] [place] [phone] Notes/Report: [place] [facility] [place] Magnesium 2.2 1.6-2.6 mg/dL Hold Lav - Possible Hematolo gy Reviewed date:12/12/2024 12:34:00 PM Interpretation: Performing Lab:[address] [address] Notes/Report: Hold Lav - Possible Hematology SEE NOTE Specimen will be held untested for 8 hours. Call Hematology if testing is desired. Prothrombin Time INR Reviewed date:12/12/2024 12:34:31 PM Interpretation: Performing Lab:[facility], [address] [place] [phone] Notes/Report: Prothrombin Time 37.1 10.9-12.4 SEC INTERNATIONAL [...] Panel Reviewed date:12/12/2024 12:34:21 PM Interpretation: Performing Lab:[address] [address] Notes/Report: Sodium 134 135-145 mmol/L Potassium 3.7 [...] ff Reviewed date:12/14/2024 04:01:27 PM Interpretation: Performing Lab:[facility], [address] [place] [phone] Notes/Report: White Blood Count 8.0 4.8-10.8 X10*3/uL [...] INR Reviewed date:12/14/2024 10:28:08 AM Interpretation: Performing Lab:[facility], [address] [place] [phone] Notes/Report: Prothrombin Time 43.8 10.9-12.4 SEC INTERNATIONAL [...] Panel Reviewed date:12/14/2024 10:28:49 AM Interpretation: Performing Lab:[facility], [address] [place] [phone] Notes/Report: Sodium 135 135-145 mmol/L Potassium 3.8 [...] Magnesium Reviewed date:12/15/2024 09:56:55 AM Interpretation: Performing Lab:[facility], [address] [place] [phone] Notes/Report: Magnesium 1.7 1.6-2.6 mg/dL Troponin-I High Sensitivity Reviewed date:12/14/2024 10:27:17 AM Interpretation: Performing Lab:[facility], [address] [place] [phone] Notes/Report: Troponin-I High Sensitivity 43.6 <3.5-35.0 ng/L The Rahman high sensitivity Troponin-I results should be used in conjunction with other diagnostic information such as ECG, clinical observations and information, and patient symptoms to aid in the diagnosis of DE. B Type Natriuretic Peptide Reviewed date:12/15/2024 09:57:05 AM Interpretation: Performing Lab:[facility], [address] [place] [address] Notes/Report: B Type Natriuretic Peptide 1238 <100 pg/mL UA ClnCatch+Micro w/rflx Cul t Reviewed date:12/14/2024 03:55:16 PM Interpretation: Performing Lab:[address] [phone] Notes/Report: [id number] Urine, Clean Catch Color Urine Yellow Appearance Urine Clear PH 5.5 5.0-9.0 Glucose Urine UA >=1000 Negative mg/dL Urine Blood Negative Negative Specific [place] - Urine 1.020 1.005-1.025 Urine Protein Negative Neg-Trace mg/dL Urine Ketones Negative Negative mg/dL Nitrite Urine Negative Negative Leukocyte Esterase Urine Negative Negative RBC Urine 0-2 0-2 /HPF WBC Urine 0-5 0-5 /HPF Squamous Epithelial Cell Urine 0-2 0-2 /HPF Bacteria Urine None Seen None Seen Hyaline Casts Urine 0-2 0-2 /LPF XR chest 1V Reviewed date:12/14/2024 10:25:20 AM Interpretation: Performing Lab: Notes/Report: [address] [address] XRay Report Signed Patient: Steven Tiwari MR#: [id number] : 1945 Acct:[id number] Age/Sex: 79 / M ADM Date: 12/13/24 Loc: .ED Attending Dr: Ordering Physician: Madi Benedict MD Date of Service: 12/14/24 Procedure(s): XR chest 1V Accession Number(s): [id number] cc: Yonathan Womack MD; Madi Benedict MD [...] in OV> 12/14/24436 DD/ 5 TD/TT: 12/14/24435 Childbirth Educator: [address] [address] XRay Report Signed Patient: Steven Tiwari MR#: [id number] : 1945 Acct:[id number] Age/Sex: 79 / M ADM Date: 12/13/24 Loc: .ED Attending Dr: Ordering Physician: Madi Benedict MD Date of Service: 12/14/24 Procedure(s): XR robin st 1V Accession Number(s): [id number] cc: Yonathan Womack MD; Madi Benedict MD [...] in OV> 12/14/24436 DD/ 5 TD/TT: 12/14/24435 Childbirth Educator: Complete Blood Count Auto Di ff Reviewed date:12/15/2024 10:00:16 AM Interpretation: Performing Lab:[facility], [address] [place] [phone] Notes/Report: White Blood Count 8.9 4.8-10.8 X10*3/uL [...] Panel Reviewed date:12/15/2024 09:56:46 AM Interpretation: Performing Lab:[facility], [address] [place] [phone] Notes/Report: Sodium 134 135-145 mmol/L Potassium 3.5 [...] Sensitivity Reviewed date:12/15/2024 09:56:22 AM Interpretation: Performing Lab:[facility], [address] [place] [phone] Notes/Report: Troponin-I High Sensitivity 55.1 <3.5-35.0 ng/L The Rahman high sensitivity Troponin-I results should be used in conjunction with other diagnostic information such as ECG, clinical observations and information, and patient symptoms to aid in the diagnosis of DE. XR chest 1V Reviewed date:12/15/2024 09:52:59 AM Interpretation: Performing Lab: Notes/Report: [address] [address] XRay Report Signed Patient: Steven Tiwari MR#: [id number] : 1945 Acct:[id number] Age/Sex: 79 / M ADM Date: 12/14/24 Loc: HO.ED Attending Dr: Ordering Physician: Dillon Galvan MD Date of Service: 12/14/24 Procedure(s): XR chest 1V Accession Number(s): [id number] cc: Yonathan Womack MD; Dillon Galvan MD [...] in OV> 12/14/242213 DD/ 12 TD/TT: 12/14/242212 Childbirth Educator: [address] [address] XRay Report Signed Patient: Steven Tiwari MR#: [id number] : 1945 Acct:[id number] Age/Sex: 79 / M ADM Date: 12/14/24 Loc: .ED Attending Dr: Ordering Physician: Dillon Galvan MD Date of Service: 12/14/24 Procedure(s): XR robin st 1V Accession Number(s): [id number] cc: Yonathan Womack MD; Dillon Galvan MD [...] in OV> 12/14/242213 DD/ 12 TD/TT: 12/14/242212 Childbirth Educator: Prothrombin Time INR Reviewed date:12/15/2024 09:52:31 AM Interpretation: Performing Lab:[facility] [address] [address] Notes/Report: Prothrombin Time 45.3 10.9-12.4 SEC INTERNATIONAL [...] Peptide Reviewed date:12/15/2024 09:52:22 AM Interpretation: Performing Lab:[address] [address] Notes/Report: B Type Natriuretic Peptide 998 <100 pg/mL Troponin-I High Sensitivity Reviewed date:12/15/2024 09:52:10 AM Interpretation: Performing Lab:[address] [address] Notes/Report: Troponin-I High Sensitivity 83.6 <3.5-35.0 ng/L The Rahman high sensitivity Troponin-I results should be used in conjunction with other diagnostic information such as ECG, clinical observations and information, and patient symptoms to aid in the diagnosis of DE. Prothrombin Time INR Reviewed date:12/16/2024 01:57:17 PM Interpretation: Performing Lab:[address] [address] Notes/Report: Prothrombin Time 35.3 10.9-12.4 SEC INTERNATIONAL [...] Blood Reviewed date:12/16/2024 01:57:55 PM Interpretation: Performing Lab:[facility], [address] [place] [phone] Notes/Report: Glucose, Whole Blood 118 60-115 mg/dL METER # : [id number] Complete Blood Count no Diff Reviewed date:12/16/2024 01:58:43 PM Interpretation: Performing Lab:[facility], [address] [place] [phone] Notes/Report: White Blood Count 9.6 4.8-10.8 X10*3/uL [...] INR Reviewed date:12/16/2024 01:57:33 PM Interpretation: Performing Lab:[facility], [address] [place] [phone] Notes/Report: Prothrombin Time 31.0 10.9-12.4 SEC INTERNATIONAL [...] Panel Reviewed date:12/16/2024 01:56:18 PM Interpretation: Performing Lab:[facility], [address] [place] [address] Notes/Report: Sodium 135 135-145 mmol/L Potassium 3.3 [...] INR Reviewed date:12/16/2024 01:57:26 PM Interpretation: Performing Lab:[address] [address] Notes/Report: Prothrombin Time 31.1 10.9-12.4 SEC INTERNATIONAL [...] ff Reviewed date:12/18/2024 12:41:15 PM Interpretation: Performing Lab:[address] [address] Notes/Report: White Blood Count 7.9 4.8-10.8 X10*3/uL [...] Panel Reviewed date:12/18/2024 12:57:54 PM Interpretation: Performing Lab:[facility], [address] [place] [phone] Notes/Report: Sodium 137 135-145 mmol/L Potassium 3.4 [...] Sensitivity Reviewed date:12/18/2024 09:01:42 AM Interpretation: Performing Lab:[address] [id number] Notes/Report: Troponin-I High Sensitivity 40.4 <3.5-35.0 ng/L The [facility] high sensitivity Troponin-I results should be used in conjunction with other diagnostic information such as ECG, clinical observations and information, and patient symptoms to aid in the diagnosis of DE. B Type Natriuretic Peptide Reviewed date:12/18/2024 09:02:28 AM Interpretation: Performing Lab:[facility], [address] [place] [phone] Notes/Report: B Type Natriuretic Peptide 811 <100 pg/mL Basic Metabolic Panel Reviewed date:01/10/2025 12:24:31 PM Interpretation: Performing Lab:[address] [phone] Notes/Report: Sodium 138 135-145 mmol/L Potassium 4.0 [...] mg/dL Calcium 9.5 8.4-10.2 mg/dL Hold Gold Reviewed date:01/10/2025 12:24:39 PM Interpretation: Performing Lab:[facility], [address] [place] [phone] Notes/Report: Hold Gold See Note Specimen held untested for 24 hours; Call to request Chemistry testing. INR WHOLE BLOOD POC Reviewed date:02/28/2025 05:05:51 PM Interpretation: Performing Lab:[facility], [address] [place] [phone] Notes/Report: PT, INR - [facility] 2.9 0.9-1.1 METER #: [id number] INTERNATIONAL NORMALIZED RATIO (INR) REFERENCE RANGES Reference [...] Prothrombin Time Whole Bld P OC Reviewed date:02/28/2025 05:07:30 PM Interpretation: Performing Lab:[facility], [address] [place] [phone] Notes/Report: Prothrombin Time Whole Bld POC 34.7 11.1-13.5 sec INR WHOLE BLOOD POC Reviewed date:03/21/2025 02:45:56 PM Interpretation: Performing Lab:[facility], [address] [place] [phone] Notes/Report: PT, INR - [facility] 2.9 0.9-1.1 METER #: [id number] INTERNATIONAL NORMALIZED RATIO (INR) REFERENCE RANGES Reference [...] Prothrombin Time Whole Bld P OC Reviewed date:03/21/2025 02:45:48 PM Interpretation: Performing Lab:[facility], [address] [place] [phone] Notes/Report: Prothrombin Time Whole Bld POC 34.8 11.1-13.5 sec Hold Jerry Reviewed date:03/21/2025 02:45:41 PM Interpretation: Performing Lab:[facility], [address] [place] [phone] Notes/Report: Hold Gold See Note Specimen held untested for 24 hours; Call to request Chemistry testing. Troponin-I High Sensitivity Reviewed date:04/03/2025 02:16:28 PM Interpretation: Performing Lab:[facility], [address] [place] [phone] Notes/Report: Troponin-I High Sensitivity 49.0 <3.5-35.0 ng/L The Rahman high sensitivity Troponin-I results should be used in conjunction with other diagnostic information such as ECG, clinical observations and information, and patient symptoms to aid in the diagnosis of DE. XR chest 1V Reviewed date:04/04/2025 09:12:07 AM Interpretation: Performing Lab: Notes/Report: [address] [address] XRay Report Signed Patient: Steven Tiwari MR#: [id number] : 1945 Acct:[id number] Age/Sex: 80 / M ADM Date: 04/02/25 Loc: .ED Attending Dr: Ordering Physician: Jono Torres MD Date of Service: 04/02/25 Procedure(s): XR chest 1V Accession Number(s): [id number] cc: Yonathan Womack MD; Jono Torres MD CLINICAL HISTORY: sob 1 view chest x-ray Comparison: Chest x-ray from 12/14/2024 Findings: New developing small left pleural effusion. Bilateral pulmonary opacities are nonspecific and may reflect pneumonitis, pulmonary edema, multifocal pneumonia. No pneumothorax in this portable image. Mild cardiomegaly redemonstrated. Degenerative changes include partially imaged shoulders and AC joints. IMPRESSION: 1. Small left pleural effusion. 2. Bilateral pulmonary opacities nonspecific and may reflect pulmonary edema or pneumonitis. Please consider attention on follow-up to ensure resolution. This document has been electronically signed by: Erick Thurman MD on 04/02/2025 22:21:12 Dictated By: Erick Thurman MD Signed By: <Electronically signed by Erick Thurman MD in [place]> 04/02/252221 DD/ 20 TD/TT: 04/02/252220 Childbirth Educator: [address] [address] XRay Report Signed Patient: Steven Tiwari MR#: [id number] : 1945 Acct:[id number] Age/Sex: 80 / M ADM Date: 04/02/25 Loc: HO.ED Attending Dr: Ordering Physician: Jono Torres MD Date of Service: 04/02/25 Procedure(s): XR robin st 1V Accession Number(s): [id number] cc: Yonathan Womack MD; Jono Torres MD CLINICAL HISTORY: sob 1 view chest x-ray Comparison: Chest x- ray from 12/14/2024 Findings: New developing small left pleural effusion. Bilateral pulmonary opacities are nonspecific and may reflect pneumonitis, pulmonary edema, multifocal pneumonia. No pneumothorax in this portable image. Mild cardiomegaly redemonstrated. Degenerative changes include partially imaged shoulders and AC joints. IMPRESSION: 1. Small left pleura l effusion. 2. Bilateral pulmona ry opacities nonspecific and may reflect pulmonary edema or pneumonitis . Please consider attention on follow-up to ensure resolution. This document has be en electronically signed by: Erick Thurman MD on 04/02/2025 22:21:12 Dictated By: Blake Thurman MD Signed By: <Electronically signed by Erick Thurman MD in OV> 04/02/252221 DD/ 20 TD/TT: 04/02/252220 Childbirth Educator: Complete Blood Count Auto Di ff Reviewed date:04/03/2025 02:16:51 PM Interpretation: Performing Lab:[facility], [address] [place] [phone] Notes/Report: White Blood Count 7.8 4.8-10.8 X10*3/uL Red Blood Count 4.26 4.60-5.80 X10*6/uL Hemoglobin 12.9 14.0-18.0 g/dl Hematocrit 37.8 42.0-52.0 % Mean Corpuscular Volume 88.7 80.0-98.0 fL Mean Corpuscular Hemoglobin 30.3 27.0-33.0 pg Mean Corpuscular HGB Conc 34.1 31.0-36.0 g/dl Red Cell Distribution Width 14.1 11.0-16.0 % Platelet Count 142 160-400 X10*3/uL Mean Platelet Volume 11.0 9.4-12.4 fL Neutrophils Percent Auto 54.4 45-73 % Imm Gran Pct Auto 0.4 0.0-0.4 % Lymphocytes Percent Auto 36.1 20-40 % Monocytes Percent Auto 7.7 2-11 % Eosinophils Percent Auto 0.9 0-4 % Basophils Percent Auto 0.5 0-2 % NRBC Pct Auto 0.0 0.0-0.2 /100WBC Neutrophils Absolute Auto 4.2 2.0-8.3 x10*3/uL Imm Gran Abs Auto 0.03 0.00-0.03 X10*3/uL Lymphocytes Absolute Auto 2.8 1.2-4.9 X10*3/uL Monocytes Absolute Auto 0.6 0.1-1.2 X10*3/uL Eosinophils Absolute Auto 0.1 0.0-0.4 X10*3/uL Basophils Absolute Auto 0.0 0.0-0.2 X10*3/uL NRBC Abs Auto 0.000 0.0-0.012 X10*3/uL Prothrombin Time INR Reviewed date:04/03/2025 02:06:20 PM Interpretation: Performing Lab:[facility], [address] [place] [phone] Notes/Report: Prothrombin Time 34.7 10.9-12.4 SEC INTERNATIONAL NORM RATIO 3.0 0.9-1.1 [...] 2.5 - 3.5 Basic Metabolic Panel Reviewed date:04/03/2025 02:17:13 PM Interpretation: Performing Lab:[facility], [address] [place] [phone] Notes/Report: Sodium 138 135-145 mmol/L Potassium 3.2 3.3-5.1 mmol/L Chloride 103 96-108 mmol/L Carbon Dioxide 25 22-29 mmol/L Anion Gap 13 12-20 Blood Urea Nitrogen 21 9-16 mg/dL Creatinine 0.98 0.5-1.4 mg/dL Creatinine Clr Calc Pharmacy 67.5 eGFR (calculated from the MDRD study equation) and eCrCl (calculated from the Cockcroft-Gault equation) are based on different parameters and may not yield comparable results. If eCrCl result is absurd, please check patient's height/weight. Estimated Glomerular Filt Rate > 60 Chronic Kidney Disease: Estimated GFR < 60 mL/min/1.73m2 Severe Kidney Disease: Estimated GFR < 15 mL/min/1.73m2 Glucose Random 115 60-115 mg/dL Calcium 8.6 8.4-10.2 mg/dL Complete Blood Count Auto Di ff Reviewed date:04/04/2025 12:35:23 PM Interpretation: Performing Lab:[facility], [address] [place] [phone] Notes/Report: White Blood Count 8.3 4.8-10.8 X10*3/uL Red Blood Count 4.51 4.60-5.80 X10*6/uL Hemoglobin 13.9 14.0-18.0 g/dl Hematocrit 40.1 42.0-52.0 % Mean Corpuscular Volume 88.9 80.0-98.0 fL Mean Corpuscular Hemoglobin 30.8 27.0-33.0 pg Mean Corpuscular HGB Conc 34.7 31.0-36.0 g/dl Red Cell Distribution Width 14.2 11.0-16.0 % Platelet Count 152 160-400 X10*3/uL Mean Platelet Volume 11.5 9.4-12.4 fL Neutrophils Percent Auto 62.3 45-73 % Imm Gran Pct Auto 0.4 0.0-0.4 % Lymphocytes Percent Auto 28.9 20-40 % Monocytes Percent Auto 6.8 2-11 % Eosinophils Percent Auto 1.1 0-4 % Basophils Percent Auto 0.5 0-2 % NRBC Pct Auto 0.0 0.0-0.2 /100WBC Neutrophils Absolute Auto 5.2 2.0-8.3 x10*3/uL Imm Gran Abs Auto 0.03 0.00-0.03 X10*3/uL Lymphocytes Absolute Auto 2.4 1.2-4.9 X10*3/uL Monocytes Absolute Auto 0.6 0.1-1.2 X10*3/uL Eosinophils Absolute Auto 0.1 0.0-0.4 X10*3/uL Basophils Absolute Auto 0.0 0.0-0.2 X10*3/uL NRBC Abs Auto 0.000 0.0-0.012 X10*3/uL Prothrombin Time INR Reviewed date:04/04/2025 08:47:20 AM Interpretation: Performing Lab:[facility], [address] [place] [phone] Notes/Report: Prothrombin Time 28.7 10.9-12.4 SEC INTERNATIONAL NORM RATIO 2.5 0.9-1.1 INTERNATIONAL NORMALIZED RATIO (INR) REFERENCE RANGES [...] 2.5 - 3.5 Basic Metabolic Panel Reviewed date:04/04/2025 12:30:15 PM Interpretation: Performing Lab:[facility], [address] [place] [phone] Notes/Report: Sodium 138 135-145 mmol/L Potassium 3.8 3.3-5.1 mmol/L Chloride 100 96-108 mmol/L Carbon Dioxide 27 22-29 mmol/L Anion Gap 15 12-20 Blood Urea Nitrogen 21 9-16 mg/dL Creatinine 0.98 0.5-1.4 mg/dL Creatinine Clr Calc Pharmacy 68.3 eGFR (calculated from the MDRD study equation) and eCrCl (calculated from the Cockcroft-Gault equation) are based on different parameters and may not yield comparable results. If eCrCl result is absurd, please check patient's height/weight. Estimated Glomerular Filt Rate > 60 Chronic Kidney Disease: Estimated GFR < 60 mL/min/1.73m2 Severe Kidney Disease: Estimated GFR < 15 mL/min/1.73m2 Glucose Random 118 60-115 mg/dL Calcium 9.2 8.4-10.2 mg/dL Magnesium Reviewed date:04/04/2025 12:29:50 PM Interpretation: Performing Lab:[facility], [address] [place] [phone] Notes/Report: Magnesium 1.8 1.6-2.6 mg/dL B Type Natriuretic Peptide Reviewed date:04/04/2025 12:30:33 PM Interpretation: Performing Lab:[facility], [address] [place] [phone] Notes/Report: B Type Natriuretic Peptide 1651 <100 pg/mL Complete Blood Count Auto Di ff Reviewed date:04/05/2025 12:46:08 PM Interpretation: Performing Lab:[facility], [address] [place] [phone] Notes/Report: White Blood Count 8.1 4.8-10.8 X10*3/uL Red Blood Count 4.50 4.60-5.80 X10*6/uL Hemoglobin 13.6 14.0-18.0 g/dl Hematocrit 40.3 42.0-52.0 % Mean Corpuscular Volume 89.6 80.0-98.0 fL Mean Corpuscular Hemoglobin 30.2 27.0-33.0 pg Mean Corpuscular HGB Conc 33.7 31.0-36.0 g/dl Red Cell Distribution Width 14.1 11.0-16.0 % Platelet Count 156 160-400 X10*3/uL Mean Platelet Volume 11.0 9.4-12.4 fL Neutrophils Percent Auto 66.7 45-73 % Imm Gran Pct Auto 0.5 0.0-0.4 % Lymphocytes Percent Auto 23.7 20-40 % Monocytes Percent Auto 8.0 2-11 % Eosinophils Percent Auto 0.7 0-4 % Basophils Percent Auto 0.4 0-2 % NRBC Pct Auto 0.0 0.0-0.2 /100WBC Neutrophils Absolute Auto 5.4 2.0-8.3 x10*3/uL Imm Gran Abs Auto 0.04 0.00-0.03 X10*3/uL Lymphocytes Absolute Auto 1.9 1.2-4.9 X10*3/uL Monocytes Absolute Auto 0.7 0.1-1.2 X10*3/uL Eosinophils Absolute Auto 0.1 0.0-0.4 X10*3/uL Basophils Absolute Auto 0.0 0.0-0.2 X10*3/uL NRBC Abs Auto 0.000 0.0-0.012 X10*3/uL Prothrombin Time INR Reviewed date:04/05/2025 08:27:21 AM Interpretation: Performing Lab:[address] [phone] Notes/Report: Prothrombin Time 26.2 10.9-12.4 SEC INTERNATIONAL NORM RATIO 2.3 0.9-1.1 INTERNATIONAL NORMALIZED RATIO (INR) REFERENCE RANGES [...] 2.5 - 3.5 Basic Metabolic Panel Reviewed date:04/05/2025 12:43:36 PM Interpretation: Performing Lab:[address] [phone] Notes/Report: Sodium 135 135-145 mmol/L Potassium 4.1 3.3-5.1 mmol/L Chloride 97 96-108 mmol/L Carbon Dioxide 26 22-29 mmol/L Anion Gap 16 12-20 Blood Urea Nitrogen 20 9-16 mg/dL Creatinine 1.10 0.5-1.4 mg/dL Creatinine Clr Calc Pharmacy 60.9 eGFR (calculated from the MDRD study equation) and eCrCl (calculated from the Cockcroft-Gault equation) are based on different parameters and may not yield comparable results. If eCrCl result is absurd, please check patient's height/weight. Estimated Glomerular Filt Rate > 60 Chronic Kidney Disease: Estimated GFR < 60 mL/min/1.73m2 Severe Kidney Disease: Estimated GFR < 15 mL/min/1.73m2 Glucose Random 131 60-115 mg/dL Calcium 9.0 8.4-10.2 mg/dL Magnesium Reviewed date:04/05/2025 12:43:18 PM Interpretation: Performing Lab:[facility], [address] [place] [phone] Notes/Report: Magnesium 2.2 1.6-2.6 mg/dL Prothrombin Time INR Reviewed date:04/07/2025 07:03:39 PM Interpretation: Performing Lab:[facility], [address] [place] [phone] Notes/Report: Prothrombin Time 29.5 10.9-12.4 SEC INTERNATIONAL NORM RATIO 2.6 0.9-1.1 INTERNATIONAL NORMALIZED RATIO (INR) REFERENCE RANGES [...] 2.5 - 3.5 Basic Metabolic Panel Reviewed date:04/07/2025 07:03:31 PM Interpretation: Performing Lab:[facility], [address] [place] [phone] Notes/Report: Sodium 134 135-145 mmol/L Potassium 3.6 3.3-5.1 mmol/L Chloride 94 96-108 mmol/L Carbon Dioxide 27 22-29 mmol/L Anion Gap 17 12-20 Blood Urea Nitrogen 19 9-16 mg/dL Creatinine 1.11 0.5-1.4 mg/dL Creatinine Clr Calc Pharmacy 60.3 eGFR (calculated from the MDRD study equation) and eCrCl (calculated from the Cockcroft-Gault equation) are based on different parameters and may not yield comparable results. If eCrCl result is absurd, please check patient's height/weight. Estimated Glomerular Filt Rate > 60 Chronic Kidney Disease: Estimated GFR < 60 mL/min/1.73m2 Severe Kidney Disease: Estimated GFR < 15 mL/min/1.73m2 Glucose Random 124 60-115 mg/dL Calcium 9.0 8.4-10.2 mg/dL Magnesium Reviewed date:04/07/2025 07:03:49 PM Interpretation: Performing Lab:[facility], [address] [place] [phone] Notes/Report: Magnesium 2.0 1.6-2.6 mg/dL Prothrombin Time INR Reviewed date:04/07/2025 07:02:07 PM Interpretation: Performing Lab:[facility], [address] [place] [phone] Notes/Report: Prothrombin Time 33.5 10.9-12.4 SEC INTERNATIONAL NORM RATIO 2.9 0.9-1.1 INTERNATIONAL NORMALIZED RATIO (INR) REFERENCE RANGES [...] 2.5 - 3.5 Basic Metabolic Panel Reviewed date:04/07/2025 07:01:59 PM Interpretation: Performing Lab:[facility], [address] [place] [phone] Notes/Report: Sodium 134 135-145 mmol/L Potassium 3.8 3.3-5.1 mmol/L Chloride 98 96-108 mmol/L Carbon Dioxide 25 22-29 mmol/L Anion Gap 15 12-20 Blood Urea Nitrogen 20 9-16 mg/dL Creatinine 1.19 0.5-1.4 mg/dL Creatinine Clr Calc Pharmacy 56.3 eGFR (calculated from the MDRD study equation) and eCrCl (calculated from the Cockcroft-Gault equation) are based on different parameters and may not yield comparable results. If eCrCl result is absurd, please check patient's height/weight. Estimated Glomerular Filt Rate 59 Chronic Kidney Disease: Estimated GFR < 60 mL/min/1.73m2 Severe Kidney Disease: Estimated GFR < 15 mL/min/1.73m2 Glucose Random 141 60-115 mg/dL Calcium 9.0 8.4-10.2 mg/dL Magnesium Reviewed date:04/07/2025 07:01:26 PM Interpretation: Performing Lab:[facility], [address] [place] [phone] Notes/Report: Magnesium 1.8 1.6-2.6 mg/dL Hold Lav - Possible Hematolo gy Reviewed date:04/08/2025 12:30:12 PM Interpretation: Performing Lab:[facility], [address] [place] [phone] Notes/Report: Hold Lav - Possible Hematology SEE NOTE Specimen will be held untested for 8 hours. Call Hematology if testing is desired. Prothrombin Time INR Reviewed date:04/08/2025 12:28:23 PM Interpretation: Performing Lab:[facility], [address] [place] [phone] Notes/Report: Prothrombin Time 32.7 10.9-12.4 SEC INTERNATIONAL NORM RATIO 2.8 0.9-1.1 [...] mechanical prosthetic heart valves: 2.5 - 3.5 Hold Green Gel Reviewed date:04/08/2025 12:30:03 PM Interpretation: Performing Lab:[facility], [address] [place] [phone] Notes/Report: Hold Green Gel See Note Specimen held untested for 24 hours; Call to request Chemistry testing. Hold Lav - Possible Hematolo gy Reviewed date:04/09/2025 10:05:05 AM Interpretation: Performing Lab:[facility], [address] [place] [phone] Notes/Report: Hold Lav - Possible Hematology SEE NOTE Specimen will be held untested for 8 hours. Call Hematology if testing is desired. Prothrombin Time INR Reviewed date:04/09/2025 10:04:56 AM Interpretation: Performing Lab:[facility], [address] [place] [phone] Notes/Report: Prothrombin Time 24.9 10.9-12.4 SEC INTERNATIONAL NORM RATIO 2.2 0.9-1.1 INTERNATIONAL NORMALIZED RATIO (INR) REFERENCE RANGES [...] mechanical prosthetic heart valves: 2.5 - 3.5 Hold Green Gel Reviewed date:04/09/2025 12:57:50 PM Interpretation: Performing Lab:[facility], [address] [place] [phone] Notes/Report: Hold Green Gel See Note Specimen held untested for 24 hours; Call to request Chemistry testing. Hold Lav - Possible Hematolo gy Reviewed date:04/10/2025 12:24:36 PM Interpretation: Performing Lab:[facility], [address] [place] [phone] Notes/Report: Hold Lav - Possible Hematology SEE NOTE Specimen will be held untested for 8 hours. Call Hematology if testing is desired. Prothrombin Time INR Reviewed date:04/10/2025 12:25:44 PM Interpretation: Performing Lab:[facility], [address] [place] [phone] Notes/Report: Prothrombin Time 24.6 10.9-12.4 SEC INTERNATIONAL NORM RATIO 2.1 0.9-1.1 INTERNATIONAL NORMALIZED RATIO (INR) REFERENCE RANGES [...] mechanical prosthetic heart valves: 2.5 - 3.5 Hold Green Gel Reviewed date:04/10/2025 12:25:50 PM Interpretation: Performing Lab:[facility], [address] [place] [phone] Notes/Report: Hold Green Gel See Note Specimen held untested for 24 hours; Call to request Chemistry testing. Prothrombin Time INR Reviewed date:04/16/2025 04:41:04 PM Interpretation: Performing Lab:[facility], [address] [place] [phone] Notes/Report: Prothrombin Time 52.4 10.9-12.4 SEC INTERNATIONAL NORM RATIO 4.6 0.9-1.1 INTERNATIONAL NORMALIZED RATIO (INR) REFERENCE RANGES [...] mechanical prosthetic heart valves: 2.5 - 3.5 Hold Lav - Possible Hematolo gy Reviewed date:04/17/2025 07:57:39 PM Interpretation: Performing Lab:[facility], [address] [place] [phone] Notes/Report: Hold Lav - Possible Hematology SEE NOTE Specimen will be held untested for 8 hours. Call Hematology if testing is desired. Prothrombin Time INR Reviewed date:04/17/2025 07:57:54 PM Interpretation: Performing Lab:[facility], [address] [place] [phone] Notes/Report: Prothrombin Time 37.7 10.9-12.4 SEC INTERNATIONAL NORM RATIO 3.3 0.9-1.1 INTERNATIONAL NORMALIZED RATIO (INR) REFERENCE RANGES [...] 2.5 - 3.5 Basic Metabolic Panel Reviewed date:04/17/2025 08:01:18 PM Interpretation: Performing Lab:[facility], [address] [place] [phone] Notes/Report: Sodium 130 135-145 mmol/L Potassium 3.4 3.3-5.1 mmol/L Chloride 96 96-108 mmol/L Carbon Dioxide 26 22-29 mmol/L Anion Gap 11 12-20 Blood Urea Nitrogen 20 9-16 mg/dL Creatinine 1.25 0.5-1.4 mg/dL Creatinine Clr Calc Pharmacy 52.5 eGFR (calculated from the MDRD study equation) and eCrCl (calculated from the Cockcroft-Gault equation) are based on different parameters and may not yield comparable results. If eCrCl result is absurd, please check patient's height/weight. Estimated Glomerular Filt Rate 56 Chronic Kidney Disease: Estimated GFR < 60 mL/min/1.73m2 Severe Kidney Disease: Estimated GFR < 15 mL/min/1.73m2 Glucose Random 188 60-115 mg/dL Calcium 8.9 8.4-10.2 mg/dL Magnesium Reviewed date:04/17/2025 07:57:28 PM Interpretation: Performing Lab:[facility], [address] [place] [phone] Notes/Report: Magnesium 2.0 1.6-2.6 mg/dL B Type Natriuretic Peptide Reviewed date:04/17/2025 07:57:19 PM Interpretation: Performing Lab:[facility], [address] [place] [phone] Notes/Report: B Type Natriuretic Peptide 1114 <100 pg/mL Hold Green Gel Reviewed date:04/17/2025 07:57:09 PM Interpretation: Performing Lab:[facility], [address] [place] [phone] Notes/Report: Hold Green Gel See Note Specimen held untested for 24 hours; Call to request Chemistry testing. Prothrombin Time INR Reviewed date:04/18/2025 05:12:51 PM Interpretation: Performing Lab:[facility], [address] [place] [phone] Notes/Report: Prothrombin Time 29.5 10.9-12.4 SEC INTERNATIONAL NORM RATIO 2.6 0.9-1.1 INTERNATIONAL NORMALIZED RATIO (INR) REFERENCE RANGES [...] 2.5 - 3.5 Basic Metabolic Panel Reviewed date:04/19/2025 06:50:06 PM Interpretation: Performing Lab:[facility], [address] [place] [phone] Notes/Report: Sodium 135 135-145 mmol/L Potassium 3.9 3.3-5.1 mmol/L Chloride 94 96-108 mmol/L Carbon Dioxide 33 22-29 mmol/L Anion Gap 12 12-20 Blood Urea Nitrogen 23 9-16 mg/dL Creatinine 1.44 0.5-1.4 mg/dL Creatinine Clr Calc Pharmacy 45.6 eGFR (calculated from the MDRD study equation) and eCrCl (calculated from the Cockcroft-Gault equation) are based on different parameters and may not yield comparable results. If eCrCl result is absurd, please check patient's height/weight. Estimated Glomerular Filt Rate 47 Chronic Kidney Disease: Estimated GFR < 60 mL/min/1.73m2 Severe Kidney Disease: Estimated GFR < 15 mL/min/1.73m2 Glucose Random 115 60-115 mg/dL Calcium 9.2 8.4-10.2 mg/dL Magnesium Reviewed date:04/18/2025 05:12:37 PM Interpretation: Performing Lab:[facility], [address] [place] [phone] Notes/Report: Magnesium 2.0 1.6-2.6 mg/dL B Type Natriuretic Peptide Reviewed date:04/18/2025 05:12:17 PM Interpretation: Performing Lab:[facility], [address] [place] [phone] Notes/Report: B Type Natriuretic Peptide 1807 <100 pg/mL FL barium swallow Reviewed date:04/19/2025 06:48:10 PM Interpretation: Performing Lab: Notes/Report: [address] [address] Fluoroscopy Report Signed Patient: Steven Tiwari MR#: [id number] : 1945 Acct:[id number] Age/Sex: 80 / M ADM Date: 04/14/25 Loc: [facility] 457-[address]: Chuck Rosa MD Ordering Physician: Chuck Rosa MD Date of Service: 04/18/25 Procedure(s): FL barium swallow Accession Number(s): [id number] cc: Yonathan Womack MD; Chuck Rosa MD EXAMINATION: XR BARIUM SWALLOW CLINICAL INFORMATION: Dysphagia. COMPARISON: CT chest 04/14/2025. TECHNIQUE: Routine upright barium swallow with barium tablet in thin and thick barium was performed. Patient is unable to lie supine. FINDINGS: On oral administration of thin and thick barium there is normal propagation bolus from the oral cavity through the pharynx, esophagus into stomach. The mid esophagus is dilated with tapered narrowing of distal esophagus from compression due to underlying enlarged left atrium as seen on CT chest exam 04/14/2025. The GE junction is patent but no obstruction or stricture seen. There is diminished peristalsis in the mid to distal esophagus. On oral administration of barium tablet there was initial difficulty in oral swallowing. After swallowing the tablet at was stuck in the valleculae and clear with several swallows of water. Also noted on CT chest exam is enlarged left ventricle. There is mild to moderate atherosclerotic calcification of aortic valve with normal-appearing aorta. FLUOROSCOPY TIME: 2 minute 38 seconds DOSE AREA PRODUCT: 1253 uGy-m2 (microgray-meter squared) FL/FL barium swallow IMPRESSION: Dilated mid esophagus and tapered narrowing of distal esophagus likely secondary to enlarged left atrium. No obstructive etiology seen. The GE junction is otherwise widely patent. The barium tablet initially got stuck in the valleculae but cleared with subsequent swallowing of water. Electronically signed by: Brennan Mcginnis MD 04/18/2025 02:17 PM EDT Dictated By: Brennan Mcginnis MD Signed By: <Electronically signed by Brennan Mcginnis MD in OV> 04/18/25 1417 DD/ 1030 TD/TT: 04/18/25 1050 Childbirth Educator: [address] [id number] Fluoroscopy Report Signed Patient: Steven Tiwari MR#: [id number] : 1945 Acct:[id number] Age/Sex: 80 / M ADM Date: 04/14/25 Loc: .[facility] – [place] 457-[address]: José Miguel Rosa MD Ordering Physician: Chuck Rosa MD Date of Service: 04/18/25 Procedure(s): FL bar ium swallow Accession Number(s): [id number] cc: Yonathan Womack MD; Chuck Rosa MD EXAMINATION: XR BARIUM SWALLOW CLINICAL INFORMATION: Dysphagia. COMPARISON: CT chest 04/14/2025. TECHNIQUE: Routine upright stef um swallow with barium tablet in thin and thick barium was performed . Patient is unable to lie supine. FINDINGS: On oral administrati on of thin and thick barium there is normal propagation bolus fr om the oral cavity through the pharynx, esophagus into stomach. The mi d esophagus is dilated with tapered narrowing of distal esophagus fro m compression due to underlying enlarged left atrium as seen on CT chest exam 04/14/2025. The GE junction is patent but no obstruction o r stricture seen. There is diminished peristalsis in the mid to distal esophagus. On oral administrati on of barium tablet there was initial difficulty in oral swallowing. Aft er swallowing the tablet at was stuck in the valleculae and clear with several swallows of water. Also noted on CT robin st exam is enlarged left ventricle. There is mild to moderate atherosclerotic calcification of aortic valve with normal-appearing aorta. FLUOROSCOPY TIME: 2 minute 38 seconds DOSE AREA PRODUCT: 1253 uGy-m2 (microgray-meter squared) F L/FL barium swallow IMPRESSION: Dilated mid esophagu s and tapered narrowing of distal esophagus likely secondary to enlarge d left atrium. No obstructive etiology seen. The GE junction is otherwise widely patent. The barium tablet initially got stuck in the valleculae but cleared with subsequent swallowing of water. Electronically kendra d by: Brennan Mcginnis MD 04/18/2025 02:17 PM EDT Dictated By: Mr sia Mcginnis MD Signed By: <Electronically signed by Brennan Mcginnis MD in OV> 04/18/25 1417 DD/ 1030 TD/TT: 04/18/25 1050 Childbirth Educator: ADOLPH Prothrombin Time INR Reviewed date:04/19/2025 06:43:03 PM Interpretation: Performing Lab:[address] [id number] Notes/Report: Prothrombin Time 28.1 10.9-12.4 [employer] [...] 2.5 - 3.5 Basic Metabolic Panel Reviewed date:04/19/2025 06:43:47 PM Interpretation: Performing Lab:[address] [id number] Notes/Report: Sodium 137 135-145 mmol/L Potassium 3.9 3.3-5.1 mmol/L Chloride 96 96-108 mmol/L Carbon Dioxide 31 22-29 mmol/L Anion Gap 14 12-20 Blood Urea Nitrogen 24 9-16 mg/dL Creatinine 1.45 0.5-1.4 mg/dL Creatinine Clr Calc Pharmacy 45.3 eGFR (calculated from the MDRD study equation) [...] 119 60-115 mg/dL Calcium 9.3 8.4-10.2 mg/dL Magnesium Reviewed date:04/19/2025 06:43:19 PM Interpretation: Performing Lab:[address] [id number] Notes/Report: Magnesium 2.0 1.6-2.6 mg/dL B Type Natriuretic Peptide Reviewed date:04/19/2025 06:43:10 PM Interpretation: Performing Lab:[address] [address] Notes/Report: B Type Natriuretic Peptide 1656 <100 pg/mL Reason For Referral Reason right upper quadrant pain Diagnosis 1 [...] Referring Provider Last Name Shanta Referring Provider [facility] Internal edicine Referred Provider JEROME URIBE Referred Provider Specialty Unknown General Notes Otilia Nova 0 11/01/2024 11:51:33 AM >referral faxed to [facility] Annette 11/01/2024 03:11:27 PM >Jena CANO isn't under contact with [facility] info faxed to [facility] Annette 11/02/2024 11:22:49 AM > was told to refax [facility] An[facility] 11/05/2024 01:12:28 PM > was told again to refaxgail referral, Chelle Skelton 11/06/2024 09:12:42 AM >MR TIWARI ACCEPTED BY [facility] FOR PT BEGINNING 11/07 SHERINE AT [phone] #2 IF ANY QUESTIONS Referral Priority Routine Referral Appointment Date 11/07/2024 Reason ACUTE CHRONIC SYSTOL IC CHF Diagnosis 1 Acute on chronic sys tolic (congestive) heart failure (I50.23) Referral Organization Yonathan Womack MD Referring Provider First Name Yonathan Referring Provider Last Name Shanta Referring Provider [facility] Internal edicine Referred Provider Azeem Clayton Referred Provider Specialty Cardiovascul ar Disease General Notes Chelle Skelton 12/20/2024 09:57:31 AM >REFERRAL FAXED TO [facility] FOR [facility] PATIENT [facility] BELLAMY Annette 12/24/2024 09:44:40 AM >spoke with patient no need for this referral. 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 Moody Referral Priority Routine Reason Reflux esophagitis Diagnosis 1 Reflux esophagitis ( K21.00) Referral Organization Yonathan Womack MD Referring Provider First Name Yonathan Referring Provider Last Name Shanta Referring Provider Speciality Internal M edicine Referred Provider Gary Hughes Referred Provider Specialty Gastroentero logy General Notes Otilia Nova 0 04/02/2025 10:05:06 AM >info faxed[facility] Annette 04/18/2025 03:28:29 PM > was told patient is aware of appt Referral Priority Routine Referral Appointment Date 05/07/2025 Medications Medication SIG (Take, Route, Frequency, Duration) Notes Start Date End Date Status LORazepam 0.5 MG TAKE 1 TABLET BY CASSIUS TH EVERY DAY NEEDED Orally Once a day for 90 days 04/02/2025 Active Metoprolol Succinate 25 MG 1 capsule Ora lly Once a day Active Simvastatin 40 MG TAKE 1/2 TABLET BY MOUTH EVERY EVENING Active Tylenol Extra Strength 500 MG 1/2 tablet Orally every 6 hrs Not-Taking Omeprazole 20 MG TAKE 1 TABLET BY CASSIUS TH EVERY DAY Active Triamcinolone Acetonide 0.1 % 1 application Externally Once a day for 30 days 07/23/2021 Active FreeStyle Lancets - USE TO CHECK BLOOD SUGAR ONCE A DAY for 90 Active Spironolactone 25 MG 1 tablet Orally Active FreeStyle Lite Test - TEST BLOOD SUGAR O NCE EVERY DAY for 50 Active Imodium A-D 2 MG 1 tablet as needed Orally Four times a day Not-Taking Entresto 24-26 MG 1 tablet Orally Twic e a day Active Furosemide 20 MG 2 tabs twice a day Orally twice a day Active Co Q 10 100 MG 1 capsule with a indy l Orally Once a day for 30 day(s) Active Warfarin Sodium 2.5 MG TAKE 3 TABLETS BY MOUTH 6 DAYS A WEEK AND 2 TABLETS BY MOUTH 1 DAY A WEEK Active Ondansetron 4 MG 1 tablet on the tong ue and allow to dissolve Orally twice a day for 5 days 12/17/2024 Active Nitrostat 0.4 MG as directed Sublingu al every 5 mins times 3 for 30 days 11/30/2016 Not-Taking Triamcinolone Acetonide 0.5 % 1 application to affected area Externally Twice a day for 30 days 10/03/2014 Not-Taking Immunizations Vaccine Route Administration Date Status Comme [...] W/U Status Risk Notes Problem Panic attack (498434598) Panic attack (300.01) Active confirmed Problem Cardiomyopathy (48205400) Cardiomyopathy (425.4) Active confirmed Problem 812057323 Unspecified asth ma, uncomplicated (J45.909) Active confirmed Problem 75692686 Restless leg syn drome (G25.81) Active confirmed Problem Reflux esophagitis (096989909) Reflux esophagitis (K21.00) Active confirmed Problem Carotid artery disease (679199634) Carotid artery disease (I77.9) Active confirmed Problem 04033324 Vitamin D defici ency (E55.9) Active confirmed Problem 11332634 Anxiety (F41.9) Active confirmed Problem Hypomagnesemia (432691958) Hypomagnesemia (E83.42) Active confirmed Problem 38819441 Other chronic pa in (G89.29) Active confirmed Problem Acute on chronic systolic heart failure (991548546) Acute on chronic systolic (congestive) heart failure (I50.23) Active confirmed Problem 0381142 Diverticulitis o f large intestine without perforation or abscess with bleeding (K57.33) Active confirmed Problem Atrial fibrillation (disorder) (12745134) Afib (I48.91) Active confirmed Problem 713150459 Prostate cancer (C61) Active confirme d Problem 6410859 Prediabetes (R73.09) Active confirmed Problem 030931639 Low HDL (under 4 0) (E78.6) Active confirmed Problem 74719784 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) Active confirmed Problem 689322726 Cervical disc di sease (M50.90) Active confirmed Problem 81027008 Intrinsic eczema (L20.84) Active confirmed Problem 835369119 Gall stones (K80.20) Active confirmed Problem 843739946 History of prost ate cancer (Z85.46) Active confirmed Problem 920797436 Kidney mass (N28.89) Active confirmed Problem 44642221 Dysthymia (F34.1) Active confirmed Problem 353256038 Anticoagulant long-term use (Z79.01) Active confirmed Problem 149507411 Nonalcoholic hepatosteatosis (K76.0) Active confirmed Problem 211622761 History of myoca rdial infarction (I25.2) Active confirmed Problem 87319876 Reflux gastritis (K29.60) Active confirmed Problem 13043393 Sleep apnea, unspecified type (G47.30) Active confirmed Problem 217125683 Acute on chronic systolic congestive heart failure (I50.23) Active confirmed Problem 536340122 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) Active confirmed Problem 615963301 Benign prostatic hyperplasia with lower urinary tract symptoms (N40.1) Active confirmed Problem 294210774 Pure hypercholesterolemia (E78.00) Active confirmed Problem Abnormal gait (49456521) Abnormal gait (R26.9) Active confirmed Problem Chronic kidney disease (655134204) CKD (chronic kidney disease) (N18.9) Active confirmed Problem 0522012 Low calcium leve ls (E83.51) Active confirmed Problem 196546828 Abnormal CT scan , kidney (R93.429) Active confirmed Problem 343011450 On bridging jing tment with lovenox (Z79.01) Active confirmed Problem 166665851 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) Active confirmed Problem 479026440 Atrial fibrillat ion, chronic (I48.20) Active confirmed Problem 120413278 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 Vital Signs Blood pressure diastolic 52 mm Hg 04/02/2025 Height 69 in 04/02/2025 Blood pressure systolic 98 mm Hg 04/02/2025 Weight 197 lbs 04/02/2025 BMI 29.09 kg/m2 04/02/2025 Encounters Encounter Location Date Provider Diagnosis Yonathan Womack MD [address] [place] [address] [id number] 09/17/2024 Yonathan Womack Blood tests for rout ine general physical examination Z00.00 ; Prediabetes R73.09 ; Pure hypercholesterolemia E78.00 ; Prostate cancer C61 ; Vitamin D deficiency E55.9 and Acute on chronic systolic congestive heart failure I50.23 Yonathan Womack MD [address] [place] [address] [id number] 01/10/2025 Yonathan Womack Elevated BUN R79.9 Yonathan Womack MD [address] [place] [address] [id number] 03/21/2025 Yonathan Womack Prediabetes R73.09 a nd Pure hypercholesterolemia E78.00 Yonathan Womack MD [address] [place] [address] [id number] 05/21/2024 Yonathan Womack Acute on chronic sys tolic congestive heart failure I50.23 Yonathan Womack MD [address] [place] [address] [id number] 06/25/2024 Yonathan Womack Right upper quadrant pain R10.11 Yonathan Womack MD [address] [place] [address] [id number] 07/26/2024 Yonathan Womack Acute on chronic sys tolic congestive heart failure I50.23 Yonathan Womack MD [address] [place] [address] [id number] 09/21/2024 Yonathan Womack Elevated BUN R79.9 ; Annual physical exam Z00.00 ; Nonalcoholic hepatosteatosis K76.0 ; Prediabetes R73.09 ; Atrial fibrillation, chronic I48.20 ; Anticoagulant long-term use Z79.01 ; Acute on chronic systolic congestive heart failure I50.23 ; Reflux gastritis K29.60 and Depression screening Z13.31 Yonathan Womack MD [address] [place] [address] [id number] 10/25/2024 Yonathan Womack Shoulder pain M25.51 9 and Abnormal gait R26.9 Yonathan Womack MD [address] [place] [address] [id number] 12/20/2024 Yonathan Womack Acute on chronic sys tolic congestive heart failure I50.23 ; Atrial fibrillation, chronic I48.20 and Anticoagulant long-term use Z79.01 Yonathan Womack MD [address] [place] [address] [id number] 01/10/2025 Yonathan Womack Acute on chronic sys tolic congestive heart failure I50.23 ; Atrial fibrillation, chronic I48.20 and CKD (chronic kidney disease) N18.9 Yonathan Womack MD [address] [place] [address] [id number] 04/02/2025 Yonathan Womack Anticoagulant long-t erm use Z79.01 ; Acute on chronic systolic (congestive) heart failure I50.23 ; Afib I48.91 ; Anxiety F41.9 and Reflux esophagitis K21.00 Yonathan Womack MD [address] [place] [address] [id number] 04/19/2025 Yonathan Womack MD [address] [place] [address] [id number] 04/26/2024 Yonathan Womack MD [address] [place] [address] [id number] 05/03/2024 Yonathan Womack MD [address] [place] [address] [id number] 07/24/2024 Yonathan Womack MD [address] [place] [address] [id number] 09/04/2024 Yonathan Womack MD [address] [place] [address] [id number] 10/15/2024 Yonathan Womack MD [address] [place] [address] [id number] 10/16/2024 Yonathan Womack MD [address] [place] [address] [id number] 11/05/2024 Yonathan Womack MD [address] [place] [address] [id number] 12/13/2024 Yonathan Womack MD [address] [place] [address] [id number] 12/17/2024 Yonathan Womack MD [address] [place] [address] [id number] 12/31/2024 Yonathan Womack MD [address] [place] [address] [id number] 03/29/2025 Yonathan Womack MD [address] [place] [address] [id number] 04/04/2025 Yonathan Womack Shortness of breath R06.02 Yonathan Womack MD [address] [place] [address] [id number] 04/08/2025 Yonathan Womack MD [address] [place] [address] [id number] 04/12/2025 Yonathan Womack Assessments Encounter Date Diagnosis (ICD Code) Assessment Notes Treatment Notes Treatment Clinical Notes Section Notes 09/17/2024 Blood tests for routine general physical examination (ICD-10 - Z00.00) 01/10/2025 Elevated BUN (ICD-10 - R79.9) 03/21/2025 Prediabetes (ICD-10 - R73.09) 05/21/2024 Acute on chronic systolic congestive heart [...] and he is going to go to [facility] to see what need to be done [...] - I50.23) send referral to dr clayton 01/10/2025 Acute on chronic systolic congestive heart failure (ICD-10 - I50.23) has been in and out of the hospital a month ago 01/10/2025 Atrial fibrillation, chronic (ICD-10 - I48.20) has stabilized 04/02/2025 Anticoagulant long-term use (ICD-10 - Z79.01) having no problems 04/02/2025 Acute on chronic systolic (congestive) heart failure (ICD-10 - I50.23) stable at present 04/04/2025 Shortness of breath (ICD-10 - R06.02) Order made and mailed to the patient to be done in 2 weeks 09/17/2024 Prediabetes (ICD-10 - R73.09) 03/21/2025 Pure hypercholesterolemia (ICD-10 - E78.00) 09/21/2024 Nonalcoholic hepatosteatosis (ICD-10 - K76.0) good lft's, will contonue to monitor 12/20/2024 Atrial fibrillation, chronic (ICD-10 - I48.20) seems to be in sinus today 01/10/2025 CKD (chronic kidney disease) (ICD-10 - N18.9) had bun and cr drawn today, pending labs 04/02/2025 Afib (ICD-10 - I48.91) was r ecent[facility] in [place] need discharge summary/ calld for records 09/17/2024 Pure hypercholesterolemia (ICD-10 - E78.00) 09/21/2024 Prediabetes (ICD-10 - R73.09) good a1c, no need for medication at this time 12/20/2024 Anticoagulant long-term use (ICD-10 - Z79.01) followed by coumadin clinic 04/02/2025 Anxiety (ICD-10 - F41.9) 09/17/2024 Prostate cancer (ICD-10 - C61) 09/21/2024 Atrial fibrillation, chronic (ICD-10 - I48.20) well controlled, will contonue current regiment 04/02/2025 Reflux esophagitis (ICD-10 - K21.00) [place] [facility] [place] Vitamin D deficiency (ICD-10 - E55.9) [...] abdomen complete 03/12/2021 US abdomen complete 02/11/2022 XR chest 2V 04/04/2025 Blood Urea Nitrogen 01/10/2025 Creatinine 01/10/2025 Future Test Test Name Order Date US RENAL BILATERAL 10/20/2024 Next Appt Details Provider Name:Yonathan Munguiazo carmichaelr, 06/06/2025 10:00:00 AM, [address] [place] [address], [address], [phone], Provider Name:Yonathan Munguiazo ier, 09/17/2025 07:45:00 AM, [address] [place] [address], [place] [address], [place], [place], [phone], Provider Name:Yonathan Pan ier, 09/24/2025 01:00:00 PM, [address] [place] [address], [address] [facility], [place], [place], [phone], Insurance Providers Payer Name Payer Address Payer Phone Subscriber Number Group Number Insured Name Patient Relationship to Insured Coverage Start Date Coverage End Date [facility] MEDICARE ADVANTAGE PLAN [facility] [address] [place] [phone] [id number] STEVEN TIWARI Self - patient is the insured [facility] [address] [place] [address] [phone] [id number] STEVEN TIWARI Self - patient is the insured Medical (General) History Medical History History ICD Code cerebrovascular accident 2006 refuses a stress test due to adverse yenny nt in the past. 05/30/2013 - colonoscopy due in 3 years. refuses to have another 2016
--- OUTSIDE RECORDS SUMMARY | 2025-04-20 03:53 | XMS_ITS | Clinical Summary ---
Author Organization [address] [place] [address] [place] [phone] Phone Care Team Providers Care Cpht Name Role Phone Yonathan Womack MD Primary Care Provider [phone] Allergies Active Allergy Reactions Criticality Noted Date [...] Take 20 mg by mouth daily. Active furosemide (LASIX) 20 mg tablet Take 2 tablets (40 mg total) by mouth 2 (two) times a day. 180 tablet 3 12/25/19 25 Active simvastatin (ZOCOR) 20 mg tablet TAKE 1/2 TABLET BY MOUTH AT BEDTIME 45 tablet 1 02/05/20 25 Active calcium carbonate (MAALOX ORAL) Take by mouth at bedtime. Active sacubitriL-valsa rtan (Entresto) 24-26 mg per tablet Take 1 tablet by mouth 2 (two) times a day. Hold Entresto if your systolic blood pressure (the top number) is less than 100 mmHg. 180 tablet 1 03/04/20 25 Active spironolactone (ALDACTONE) 25 mg tablet Take 1 tablet (25 mg total) by mouth 1 (one) time each day. 90 tablet 1 03/04/20 Active amiodarone (PACERONE) 200 mg tablet Take by mouth 1 (one) time each day. 200 mg BID until 04/20/25 then 200 mg daily starting 04/21/25 Active warfarin (COUMADIN) 2.5 mg tablet Take by mouth. 3 tablets every Mon, Tu, Th, Fri, Sat 2 tabs every Tuesday as reported by [facility] Active zolpidem (AMBIEN) 5 mg tablet Take 1 tablet (5 mg total) by mouth at bedtime as needed for sleep. Max Daily Amount: 5 mg Active warfarin (COUMADIN) 2.5 mg tablet Take 1 Tablet by mouth See Admin Instructions. May cause heavy bleeding. Take at same time every day. Do not change dietary habits. Managed by [facility]. 025 Discontinued metoprolol succinate (TOPROL-XL) 25 mg 24 hr tabletIndication s:Paroxysmal atrial fibrillation ([facility]/HCC V24, CMS/HCC V28) Take 1 tablet (25 mg total) by mouth 1 (one) time each day. Do not crush or chew. 90 tablet 1 03/04/20 025 Discontinued Hospital, Clinic, or Other Facility Administered Medication Ordered Dose Route Frequency Start Date End Date Status perflutren lipid microsphere (DEFINITY) 1.3 mL in sodium chloride 0.9% 8.7 mL injection 10 mL IV Once in imaging 04/02/2025 04/02/2025 End ed Active Problems Problem Noted Date Diagnosed Date [...] he said he would go to the [facility] ER from our office. He has a ride and will not be driving PVD (peripheral vascular disease) ([facility]/HCC V24) 08/09/2023 Overview (06/07/2024): Last Assessment & Plan: History of peripheral vascular disease with known carotid stenosis. HFrEF (heart failure with re duced ejection fraction) ([facility] V24, [facility] V28) 01/06/2023 Assessment & Plan (03/04/2025 9:59 [...] denies any excessive bleeding or bruising. His [id number] score is 7 representing 11.2% risk for [...] denies any excessive bleeding or bruising. His [id number] score is 7 representing 11.2% risk for thromboembolism. He will require ongoing anticoagulation. Assessment & Plan (12/21/2024 12:00 AM EDT): Patient has history of chronic atrial fibrillation which is adequately rate controlled on his present dose of metropolol. He continues on warfarin for anticoagulation denies any excessive bleeding or bruising. His [id number] score is 7 representing 11.2% risk for thromboembolism. He will require ongoing anticoagulation. Assessment & Plan (07/30/2024 8:19 AM EST): Orders: ECG 12 lead Coronary arteriosclerosis in chitina artery 05/26 Assessment & Plan (03/04/2025 9:59 [...] 2 visits to the emergency room at [facility] for chest pain both times he [...] Encounters Date Type Department Care Team Description 04/14/2025 Telephone [facility] [address] [facility] [address] [place] [address] Cristian Boles NP 04/12/2025 Telephone [facility] [address] [facility] [address] [place] [address] Adeel Bunn MD 04/11/2025 Telephone [facility] [address] [facility] [address] [place] [address] Eddie Granados MD 04/03/2025 Telephone [facility] [address] [place] [address] Michaela Anguiano NP 04/02/2025 11:30 AM EDT Ancillary Procedure [facility] [address] [place] [id number] HFrEF (heart failure with reduced ejection fraction) (CMS/HCC V24, CMS/HCC V28) 04/01/2025 Telephone [facility] [address] [place] [address] [place] [address] Eddie Granados MD 03/29/2025 Telephone [facility] [address] [facility] [address] [place] [address] Eddie Granados MD 03/19/2025 Telephone [facility] [address] [facility] [address] [place] [address] Eddie Granados MD 03/18/2025 Telephone [facility] [address] [place] [address] Eddie Granados MD 03/04/2025 9:10 AM EDT Office Visit [facility] [address] [place] [address] Michaela Anguiano, MARNIE HFrEF (heart failure with reduced ejection fraction) (CMS/HCC V24, CMS/HCC V28) (Primary Dx); Coronary arteriosclerosis in chitina artery; Chronic atrial fibrillation (CMS/HCC V24, CMS/HCC V28); Mixed hyperlipidemia; Heart valve disorder; Paroxysmal atrial fibrillation ([facility] V24, [facility] V28) 03/01/2025 Telephone [facility] Cardiology [facility] [address] [place] [address] Eddie Granados MD 02/13/2025 Telephone [facility] [address] [place] [address] Michaela Anguiano, MARNIE 01/30/2025 Telephone [facility] [address] [place] [address] Michaela Anguiano, MARNIE 01/26/2025 Telephone [facility] [address] [place] [phone] Nina Rainey NP 2025 Telephone [facility] [address] [place] [address] Michaela Anguiano, MARNIE from Last 3 Months Medical History Medical History Date Comments CVA (cerebral vascular accid ent) ([facility] V24, [facility] V28) DX:CVA (cerebral vascular ac cident) ([facility]) Chronic ischemic heart disease D [...] Sign Reading Time Taken Comments Blood Pressure 111/75 04/02/2025 1:49 PM EDT Pulse 48 03/04/2025 9:29 AM EDT Temperature - - Respiratory Rate - - Oxygen Saturation 96% 03/04/2025 9:29 AM EDT Inhaled Oxygen Concentration - - Weight 89.4 kg (197 lb) 04/02/2025 1:49 PM EDT Height 172.7 cm (5' 8 ) 04/02/2025 1:49 PM EDT Body Mass Index 29.95 04/02/2025 1:49 PM EDT Plan of Treatment Upcoming Encounters Date Type Department Care Team (Late st Contact Info) Description 06/04/2025 2:00 PM EDT Office Visit [facility] Cardiology [facility] [address] [facility] [address] [place] [address] Adeel Bunn MD [address] [place] [address] [address] [place] [address] 06/17/2025 11:30 AM EDT Office Visit [facility] [address] [place] [address] [place] [address] Michaela Anguiano NP [address] [place] [address] [address] [place] [address] Health Maintenance Due Date Last Done Comments [...] Annual BMP Blood Test 08/01/2022 COVID-19 Vaccine (1 - 2023-2 5 season) 2024 Depression Screening 08/22/2024 Influenza [...] Procedure Name Priority Date/Time Associated Diagnosis Comments EXTERNAL CLINICAL LAB Routine 04/10/2025 2:02 PM EDT TRANSTHORACIC ECHOCARDIOGRAM (TTE) COMPLETE W/ CONTRAST Routine 04/02/2025 12:15 PM EDT HFrEF (heart failure with reduced ejection fraction) (CMS/HCC V24, CMS/HCC V28) from Last 3 Months Results * External clinical lab (04/10/2025 2:02 PM EDT) us Historical Provider MD LAB BLOOD ORDERABLES Niesha umana Result * (ABNORMAL) TRANSTHORACIC ECHOCARDIOGRAM (TTE) COMPLETE W/ CONTRAST (04/02/2025 12:15 PM EDT) LV EDV (A2C) 179 mL CV PACS LV EDV (A4C) 184 mL CV PACS LV Diastolic Volume (BP) 191(A) 62 - 150 mL CV PACS LV ESV (A2C) 162 mL CV PACS LV ESV (A4C) 133 mL CV PACS LV Systolic Volume (BP) 156(A) 21 - 61 mL CV PACS IVSD 1.2(A) 0.6 - 1.0 cm CV PACS LVIDD 6.5(A) 4.2 - 5.8 cm CV PACS LVIDS 5.9(A) 2.5 - 4.0 cm CV PACS LVOT Diameter 2.5 cm CV PACS LVOT Mean Kenneth 0.4 m/s CV PACS LVOT Mean Grad 1 mmHg CV PACS LVOT Peak VTI 8.4 cm CV PACS LVOT Peak Kenneth 0.6 m/s CV PACS LVOT Peak Gradient 1 mmHg CV PACS LVPWD 1.3(A) 0.6 - 1.0 cm CV PACS MV E' Tissue Velocity Lateral 4 cm/s CV PACS MV E' Tissue Velocity Septal 7 cm/s CV PACS Ejection Fraction (A2C) 10 % CV PACS Ejection Fraction (A4C) 28 % CV PACS Ejection Fraction (BP) 18 % CV PACS LVOT Area 4.9 cm2 CV PACS LVOT Stroke Volume 41 mL CV PACS Left Atrium Minor Wayne 8.7 cm CV PACS Left Atrium Major Wayne 9.0 cm CV PACS LA Area Sys (A2C) 38 cm2 CV PACS LA Area Sys (A4C) 40 cm2 CV PACS LA Volume (BP) 147 mL CV PACS LA Size 6.0 cm CV PACS RA Area 20.0 cm2 CV PACS RA 2D Volume 52 mL CV PACS AV Mean Gradient 2 mmHg CV PACS AV Mean Gradient 2 mmHg CV PACS Ao VTI 12.6 cm CV PACS AV Peak Kenneth 0.9 m/s CV PACS AV Peak Gradient 3 mmHg CV PACS AV Area Continuity Equation 3.3 cm2 CV PACS AV Area Peak Velocity 3.1 cm2 CV PACS Aortic Sinus Valsalva 3.9 cm CV PACS Ascending Aorta 3.9 cm CV PACS IVC Proximal 2.3 cm CV PACS MV Deceleration Cedar 7.8 m/s2 CV PACS E Wave Deceleration Time 137 119 - 242 ms CV PACS MV PHT 40 ms CV PACS MV Peak E Kenneth 1.07 m/s CV PACS MV Mean Gradient 2 mmHg CV PACS MV Mean Gradient 2 mmHg CV PACS MV Mean Gradient 2 mmHg CV PACS MV Mean Gradient 2 mmHg CV PACS MV Mean Gradient 2 mmHg CV PACS MV VTI 24.6 cm CV PACS Mitral Valve Max Velocity 1.3 m/s CV PACS MV Peak Gradient 6 mmHg CV PACS MV Area PHT 5.5 cm2 CV PACS MV Area Continuity Equation 1.7 cm2 CV PACS PV Acceleration Time 130 ms CV PACS PV Acceleration Time 141 ms CV PACS PV Acceleration Time 136 ms CV PACS PV Mean Gradient 1 mmHg CV PACS PV VTI 8.8 cm CV PACS PV Peak Velocity 0.7 m/s CV PACS PV Peak Gradient 2 mmHg CV PACS RV Diastolic Basal Dimension 4.4(A) 2.5 - 4.1 cm CV PACS RV S' 9 cm/s CV PACS TAPSE 12 mm CV PACS TR Peak Velocity 3.75 m/s CV PACS TR Peak Gradient 56 mmHg CV PACS LV ESV Index (A4C) 66 mL/m2 CV PACS LV EDV Index (A4C) 91 mL/m2 CV PACS E/E' Ratio Septal 15 CV PACS E/E' Ratio Averaged 21 CV PACS LVOT Stroke Index 20 mL/m2 CV PACS LA Dimension Index 2D 3.0 cm/m2 CV PACS Relative Wall Thickness ratio 0.40 CV PACS LVOT:AV VTI Index 0.67 CV PACS FS 9 % CV PACS LV Mass 2D 379 g CV PACS Ascending Aorta Index 1.92 cm/m2 CV PACS MV VTI:LVOT VTI ratio 2.9 CV PACS LVOT flow 196 mL/s CV PACS RA 2D Volume Index 26 mL/m2 CV PACS STACIE Index (VTI) 1.61 cm2/m2 CV PACS STACIE Index (Pk Kenneth) 1.53 cm2/m2 CV PACS LVIDD Index 3.20 cm/m2 CV PACS LVIDS Index 2.91 cm/m2 CV PACS AV Velocity Ratio 0.67 CV PACS E/E' Ratio Lateral 27 CV PACS LV Systolic Volume Index (BP) 77 mL/m2 CV PACS LV Diastolic Volume Index (BP) 94 mL/m2 CV PACS LA Volume Index (BP) 72 mL/m2 CV PACS LV Mass Index 2D 187 g/m2 CV PACS LV EDV Index (A2C) 88 mL/m2 CV PACS LV ESV Index (A2C) 80 mL/m2 CV PACS BSA 2.07 m2 CV PACS Right Ventricular Peak Systolic Pressure 64 mmHg CV PACS Est. RA Pressure 8 mmHg CV PACS Anatomical Region Laterality Modality Ultrasound Narrative 04/02/2025 4:21 PM EDT Left ventricle cavity is moderately dilated. Left ventricular systolic function is severely decreased with an ejection fraction of approximately 20 %. Severe global hypokinesis. Severe diastolic dysfunction. Right ventricle is enlarged. RV function appears normal as seen on limited views. Aortic valve leaflets are mildly thickened. Severely elevated right ventricular systolic pressure. Severe pulmonary hypertension. The ascending aorta is dilated (3.9 cm). When compared with July 20, 2016 there has been a severe reduction in LV function. LV and RV function at that time. Left Ventricle Left ventricle cavity is moderately dilated. There is mild concentric hypertrophy. Systolic function is severely decreased with an ejection fraction less than 20%. Severe global LV hypokinesis is present. There is Grade III (severe) diastolic dysfunction, restrictive filling. Right Ventricle Right ventricle cavity is dilated. Systolic function is normal. Left Atrium Left atrium cavity is severely dilated. Right Atrium Right atrium cavity is normal. IVC/SVC Flow patterns are normal. RA pressures is estimated to be 8 mmHg (IVC diameter <21 mm and decreases <50% during inspiration). Mitral Valve The leaflets are mildly thickened. There is mild annular calcification. There is mild regurgitation with a centrally directed jet. There is no evidence of mitral valve stenosis. Tricuspid Valve Tricuspid valve structure is normal. There is no significant regurgitation. There is no evidence of tricuspid valve stenosis. The right ventricular systolic pressure is severely elevated. The TR gradient is 56 mmHg. The estimated peak PA systolic pressure is 64 mmHg. Aortic Valve The aortic valve is trileaflet. The leaflets are mildly thickened. There is trace regurgitation with a centrally directed jet. There is no evidence of aortic valve stenosis. Pulmonic Valve There is mild pulmonic valve regurgitation. There is no evidence of pulmonic valve stenosis. Ascending Aorta The ascending aorta is (3.9 cm). Pericardium Pericardium appears normal. There is no pericardial effusion. Study Details Overall the study quality was suboptimal. Definity contrast was given to enhance imaging. Michaela Anguiano NP CV ECHO PROCEDURES Final Res ult from Last 3 Months Insurance [employer] [place] - [place] Care Teams Cpht Relationship Specialty Start Date End Date Yonathan Womack MD [address] [place] [address] [place] [phone] PCP - General 12/26/12
--- OUTSIDE RECORDS SUMMARY | 2025-04-20 03:54 | XMS_ITS | Encounter Summary ---
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 Name Role Phone Yonathan Womack MD Primary Care Provider [phone]- [phone] Reason for Visit * Reason Onset Date Comments Foot Swelling 04/11/2025 Encounter Details Date Type Department Care Team (Late st Contact Info) Description 04/11/2025 Telephone [facility] [address] [place] [address] Eddie Granados MD [address] [place] [address] [address] [place] [address] Social History Tobacco Use Types Packs/Day Years [...] as of this encounter Progress Notes * Kourtney Rahman MA - 04/19/2025 3:08 PM EDT Lvm for pt to cb * Nadia Blood - 04/11/2025 11:01 AM EDT Request was faxed to [facility] for last hospital notes. * Kourtney Rahman MA - 04/11/2025 10:40 AM EDT Can we please get all the Hospital notes from recent stay at [facility] please--thank you * Nitza Yost - 04/11/2025 10:29 AM EDT Patient complaining of swollen right foot. Questioning should he take more Lasix. Denies any other symptoms. He states he was hospitalized for 9 days at [facility]. BP/HR while on the phone [id number] [phone]. He also provided [facility] visiting nurse number [phone] he stated Can Annmarieset up the visiting nursing for me.'' Best call back number is [phone] documented in this encounter Plan of Treatment Upcoming Encounters Date Type Department Care Team (Late st Contact Info) Description 06/04/2025 2:00 PM EDT Office Visit [facility] Cardiology [facility] [address] [facility] [address] [place] [address] Adeel Bunn MD [address] [place] [address] [address] [place] [address] 06/17/2025 11:30 AM EDT Office Visit [facility] Cardiology [facility] [address] [place] [address] Michaela Anguiano NP [address] [place] [address] [address] [place] [address] documented as of this encounter Visit Diagnoses Not on filedocumented in this encounter Care Teams Concrete Boom Pump Operator Relationship Specialty Start Date End Date Yonathan Womack MD [address] [place] [address] PCP - General 12/26/12 documented as of this encounter
--- NOTE | 2025-04-20 05:15 | MHC.EDTECH ---
Emptied 200 ml of tyrell colored urine
--- NOTE | 2025-04-20 08:59 | PC.NURSE ---
assumed care of patient at 0700, patient is awake and alert, sitting on edge of bed. patient states he ate small amount of breakfast. VSS, patient takes meds whole with water. patient states when he was at facility he was nauseas and requested his medications and they were not yet delivered to the facility and he kept being told ' we will update you patient then states he called 911 to get him out of snf. patient states he refuses to go back. PT in room at this time doing eval, patient aware he needs to speak with case management regarding rehab placement. report given to JUAN RAMON smith in overflow
--- NOTE | 2025-04-20 11:31 | PC.NURSE ---
Addendum entered by Lynnette Garcia RN 04/20/25 11:33: Pt is a 80 yo [place] male with PMH HFrEF 20-25% - moderate MVR, severe pulmonary HTN and no pericaridal effusion last echo 04/03/25, HTN, AFIB on coumadin, NSVT, Prolonged Qtc, CKD 3am GERD, Anemia, PNA, Prostate Cancer with radiation, CVA presents to ED vis ambulance with complaints of worsening SOB with dry heaving for a few days. Pt was hospitalized here recently with new onset AFIB and was discharged 04/10 on amiodorone. Pt currently lives alone and has help coming in to assist with VNA. Patient discharged to [facility] and did not like the care there so called 911 and returned to the ED. Alert and oriented. Respirations even and non-labored. Abdomen soft, non-tender with positive bowel sounds. History of chronic nausea. Voids clera light yellow urine in the urinal. Pending disposition. Original Note: Medical History Prostate cancer Atrial flutter Congestive heart failure CKD (chronic kidney disease) stage 3, GFR 30-59 ml/min Acute on chronic combined systolic and diastolic CHF (congestive heart failure) Orthopnea Anxiety Myocardial infarct, old CHF (congestive heart failure) CVA (cerebral vascular accident) A-fib
[2025-04-20 12:28] LABS: INTERNATIONAL NORM RATIO 2.5 (0.9-1.1); Prothrombin Time 28.8 SEC (10.9-12.4)
--- NOTE | 2025-04-20 13:37 | MHC.CM.PN ---
Addendum entered by Kim Amin RN 04/20/25 13:39: ANTIC PT WILL REMAIN IN EDOVER WHILE FAMILY MAKES ARRANGEMENTS AT HOME, PT WILL LIKELY DC TO [facility]'S HOME AND POSSIBLY ON HOSPICE. Original Note: CM ATTEMPTED TO CONTACT PT'S DTR/HCP [facility] AT 1:37PM AT #ON FILE, CM WILL REVISIT IF NO CALL BACK.
--- NOTE | 2025-04-21 05:51 | PC.NURSE ---
Assumed care of patient at 1900. Patient remains in ED overflow for observation pending DC home with family.? He is alert and oriented x 3, some forgetfulness at times. He often reports nausea, requesting PRN zofran. He is able to make needs known. Utilizing urinal at the bedside. Bed locked and in lowest setting, call gates within reach.
[2025-04-21 07:31] VITALS: BP 97/67; PULSE 83; RESP 15; TEMP 36.8; O2SAT 95
--- NOTE | 2025-04-21 07:36 | PC.NURSE ---
This RN assumed care of patient @ 0700 Patient A&O x 3 IV 20G L wrist Patient wears O2 2 L for bed, Patient titrated to RA 95% denies SOB/WOB Denies N/V at this time
[2025-04-21 09:33] VITALS: BP 97/67
[2025-04-21 09:34] VITALS: BP 97/67
[2025-04-21 10:10] LABS: INTERNATIONAL NORM RATIO 3.1 (0.9-1.1); Prothrombin Time 35.8 SEC (10.9-12.4)
[2025-04-21 10:18] VITALS: BP 97/67; PULSE 98; RESP 16; TEMP 36.6; O2SAT 95
--- NOTE | 2025-04-21 16:19 | PC.NURSE ---
Pt phoned in with questions about Torsemide dose after discharge today. He had confusion because the dose is 2-20mg tablets. He was unclear if he should take 1 or 2 tabs. Chart reviewed and pt advised that he already had a dose today at 0933. Further advised that he was given 2-20mg tabs here and that is consistent with the order in the discharge paperwork. Pt states understanding and repeated back correctly.
== END 2025-04-21 11:57 | disposition home or self-care (01) ==
PROVIDERS: Emergency Provider Emergency Medicine
DX: R11.2 Nausea with vomiting, unspecified (principal); I48.91 Unspecified atrial fibrillation; R26.2 Difficulty in walking, not elsewhere classified; I44.0 Atrioventricular block, first degree; R06.02 Shortness of breath; R94.31 Abnormal electrocardiogram [ECG] [EKG]; Z79.01 Long term (current) use of anticoagulants; Z79.899 Other long term (current) drug therapy; Z87.891 Personal history of nicotine dependence; Z51.81 Encounter for therapeutic drug level monitoring
CPT/HCPCS: 36415; 71045; 80048; 80076; 80307; 83735; 83880; 84484; 85025; 85610; 93005; 97162; 99285

== ENCOUNTER → 2025-04-19 23:29 | Outpatient (BNV) | payer MEDICARE, MEDICAID, SELFPAY | PROVIDERS: Emergency Provider Emergency Medicine; Visit Provider Radiology Diagnostic Radiology | DX: R06.02 Shortness of breath (principal) | CPT/HCPCS: 71045 ==

== ENCOUNTER → 2025-04-19 23:29 | Outpatient (BNV) | payer MEDICARE, MEDICAID, SELFPAY | PROVIDERS: Emergency Provider Emergency Medicine; Visit Provider Internal Medicine | DX: I44.0 Atrioventricular block, first degree (principal); I49.3 Ventricular premature depolarization; I45.9 Conduction disorder, unspecified | CPT/HCPCS: 93010 ==